=== PATIENT | male | born 1960 | race Caucasian/White ===

== ENCOUNTER 2017-06-20 12:46 | Inpatient (IN) | payer MEDICARE, MEDICAID, SELFPAY ==
[2016-02-23 14:59] VITALS: BMI 51.7
[2017-06-20] VITALS (31 sets, daily range): BP systolic 88–136; BP diastolic 55–94; PULSE 66–94; RESP 13–21; TEMP 36.4–36.6; O2SAT 81–99; BMI 51.8; BMI 50.1
--- NOTE | 2017-06-20 13:08 | EKG12_ITS ---
Test Reason : UNRESPONSIVE Blood Pressure : / mmHG Vent. Rate : 093 BPM Atrial Rate : 093 BPM P-R Int : 180 ms QRS Dur : 092 ms QT Int : 320 ms P-R-T Axes : 047 126 -46 degrees QTc Int : 397 ms Sinus rhythm with occasional Premature ventricular complexes Low voltage QRS Septal infarct , age undetermined Abnormal ECG Confirmed by MATILDA CABA, ELMER ([id number]), non linear editor SELINA TSANG ([id number]) on 06/24/2017 2:11:59 PM Referred By: NICOLE Confirmed By:ELMER GREY MD
--- NOTE | 2017-06-20 13:13 | CT_ITS ---
STUDY: CT BRAIN WITHOUT CONTRAST REASON FOR EXAM: Male, 57 years old. Unresponsive. RADIATION DOSAGE (If Supplied By Facility): CTDIvol = ( 44.99 ) mGy, DLP = ( 880.47 ) mGycm TECHNIQUE: Transaxial CT imaging of the brain was performed without administration of intravenous contrast material. Individualized dose optimization techniques were used for this CT. COMPARISON: None. FINDINGS: Normal soft tissue structures. Normal calvarium. An endotracheal tube is in situ. Normal size ventricles and extra-axial spaces for the patient's age. Normal white matter tracts of the cerebral hemispheres. Normal basal ganglia and thalami. Normal brainstem. Normal cerebellum. There is no intracranial hemorrhage. There are no findings of an acute ischemic infarction. Partial opacification of the ethmoid sinuses. CT/Brain/Head without Contrast IMPRESSION: Normal unenhanced CT scan of the brain. Electronically Signed: Akhil Izquierdo MD at 15:15 EDT Tel [phone], Service support ,
--- NOTE | 2017-06-20 13:15 | RAD_ITS ---
STUDY: X-RAY CHEST REASON FOR EXAM: Male, 57 years old. Unresponsive. Shortness of breath. Intubation. TECHNIQUE: Single AP portable view of the chest. COMPARISON: Comparison is made with prior study dated February 20, 2016. FINDINGS: An endotracheal tube is in situ. The tip is at 3.5 cm proximal to the byron. An oral gastric tube is seen with the tip below the left hemidiaphragm. EKG electrodes are seen. Passive congestion. Increased markings in the upper lobes worse on the right side with the focal atelectasis and/or infiltrate in the right upper lobe abutting the right minor fissure. There is moderate cardiac enlargement. Normal mediastinum and marta. Normal visualized pulmonary arteries. Normal visualized aortic arch and descending thoracic aorta. Normal visualized thoracic spine. Normal visualized ribs, clavicles, and shoulders. There is no demonstrated abnormality of the visualized soft tissue structures of the upper abdomen. RAD/Chest 1 View (Portable) IMPRESSION: The tip of the endotracheal tube is at 3.5 cm proximal to the byron. Cardiomegaly. Findings suggestive of vascular congestion with infiltrate and/or atelectasis is worse on the right side with thickening of the right minor fissure. Electronically Signed: Akhil Izquierdo MD at 14:01 EDT Tel [phone], Service support ,
[2017-06-20] MEDS: Propofol 200 MG/20 ML Vial 40 MG IV BOLUS (13:19)
[2017-06-20] MEDS: 0.9% Normal Saline 1,000 ML 250 ML IV (13:19)
[2017-06-20] MEDS: MethylPREDNISolone 125 MG/2 ML Vial IV (13:19)
[2017-06-20 13:21] LABS: Absolute Lymphocyte Count 1.15 X10^3/ul (0.83-4.51); Absolute Neutrophil Count 6.7 X10^3/uL (2.0-7.7); Basophil# 0.01 X10^3/uL; Basophil% 0.1 % (0-1); Eosinophil# 0.05 X10^3/uL; Eosinophils% 0.6 % (0-5); Hematocrit 45.2 % (40-54); Hemoglobin 12.5 g/dl (13.0-16.5); Lymphocyte # 1.15 X10^3/ul (4.0); Mean Corp Hgb Conc 27.7 g/gl (32-36); Mean Platelet Vol. 9.4 fl (6.2-12.0); Monocyte# 0.77 X10^3/uL; Monocyte% 8.7 % (0-10); Neutrophil # 6.74 X10^3/uL (2.7-7.7); Neutrophil % 76.2 % (47-70); Platelet Count 221 K/mm3 (150-450); RBC Distribution Width CV 17.7 % (11.6-14.6); RBC Distribution Width SD 60.8 fl (35.1-43.9); Red Blood Count 4.81 M/mm3 (4.6-6.2); White Blood Count 8.8 K/mm3 (4.4-11.0)
[2017-06-20 13:26] LABS: POSITIVE COUNT NO; POSITIVE DIFFERENTIAL NO; POSITIVE MORPHOLOGY NO
[2017-06-20] MEDS: Propofol 10MG/Ml 1,000 MG/100 ML Bottle 5.199 MG CONT INF ×3 (13:33→21:51)
[2017-06-20 13:34] LABS: ALB/GLOB Ratio 0.7 RATIO (0.9-2.4); AST(SGOT) 19 U/L (15-37); Alanine Aminotransfer ALT/SGPT 30 U/L (16-61); Albumin, Serum 3.3 g/dL (3.2-5.0); Alkaline Phosphatase 107 U/L (45-117); Anion Gap 1 (5-15); BUN 32 mg/dL (7-18); BUN/Creat Ratio 34.2 RATIO (10-20); Calcium,Total 8.2 mg/dL (8.5-10.1); Chloride 95 mmol/L (98-107); Creatinine, Serum 0.94 mg/dL (0.70-1.30); EST Glomerular Filtration Rate 88 mL/min (>60); Est Glom Filt Rate - Afr Amer 106 mL/min (>60); Estimated Creatinine Clearance 92.87 ml/min; Globulin 4.6 g/dL (2.2-4.2); Glucose 127 mg/dL (74-106); Lactic Acid 0.7 mmol/L (0.4-2.0); Potassium 5.5 mmol/L (3.5-5.1); Protein, Total 7.9 g/dL (6.4-8.2); Sodium Level 136 mmol/L (136-145)
[2017-06-20] MEDS: Ipratropium/Albuterol Sulfate 3 ML AMPUL.NEB INHALATION ×3 (13:34→23:53)
[2017-06-20 13:42] LABS: International Normalized Ratio 1.1; Prothrombin Time (Protime)PT. 13.9 SECONDS (11.7-14.9)
[2017-06-20 13:43] LABS: Partial Thromboplast Time 27.8 Seconds (24.1-36.2)
[2017-06-20 13:51] LABS: Allen Test POS; Base Excess 13 mmol/L (-2 to +2); Bicarbonate 40.3 mmol/L (22-26); Blood Gas Specimen Type ART; FI02 60; Mode A-C; O2 Delivery Device Vent; PEEP 8; PO2 63 mmHG (75-100); RR 16; SITE R Radial; SO2 85 % (95-99); Time Given 1335; Total Carbon Dioxide 43 mmol/L; Vt 500; pCO2 96.9 mmHg (35-45); pH 7.23 (7.35-7.45)
--- NOTE | 2017-06-20 13:57 | ED.RN ---
URINARY CATHETER ATTEMPTED X3. UNSUCCESSFUL
[2017-06-20] MEDS: Piperacil/Tazobactam 3.375 GM/50 ML ML IV (15:17)
--- NOTE | 2017-06-20 15:33 | ED.VISSUMM ---
- ER Visit Summary Date of Service: 06/20/17 Chief Complaint: Unresponsive History of Present Illness: The patient is a 57 M assisted living. He has a history of COPD, asthma, CHF, coronary disease, diabetes, and pneumonia. He is only responding to painful stimuli at this time and cannot provide history. It sounds like he was confused earlier this morning but was refusing to come to the emergency department. He got worse throughout the day, and was brought in by EMS. He was hypoxic on 100% oxygen. We are unsure of any other new or recent history. Physical Examination: Afebrile and vital signs unremarkable. 81% pulse ox on 100% oxygen. Patient is only responding to painful stimuli, GCS 7. Lungs are diminished throughout. Abdomen soft and nontender. Patient is morbidly obese. Test Results: EKG showed sinus rhythm at a rate of 93. No acute infarction pattern. Hemoglobin 12.5. Potassium 5.5, chloride 95, CO2 40, glucose 127, BUN 32. Hepatic panel and coags normal. Urinalysis pending. Troponin normal. Lactate normal. Cultures pending. PH 7.23, O2 85 and CO2 96.9. Chest x-ray showed cardiomegaly, congestion, and possible infiltrate. CT head was normal. Emergency Department Course and Treatment: Patient was intubated shortly after arrival for mental status change and hypoxia. Direct visualization unsuccessful, and so glidescope was used. This was successful on the first attempt. Good color change on capnography. Equal breath sounds. Stomach quiet. Induction with etomidate and succinylcholine. Sedated with propofol and fentanyl. Patient treated with DuoNeb and Solu-Medrol. Chest x-ray showed congestion and possible infiltrate. He was covered with Zosyn and vancomycin. BNP is pending. Patient is stable on the vent. I spoke with the monument erector and the hospitalist will admit. Nursing had some difficulty placing the Butler catheter. It appears that the patient has a chronic phimosis and I spoke with Dr. Montemayor will see the patient in the ICU and place a catheter. Treatment Plan: Above Disposition: Admission to ICU Impression: 1. Acute respiratory failure 2. COPD 3. CHF This note was generated with MarginPointation software. It may contain incorrect words, spelling, and punctuation that were not noted in review of the chart prior to signing ED Disposition - Plan for ED Patient: Chief Complaint: Unresponsive Referrals: Tio Parker MD [Primary Care Provider] -
--- NOTE | 2017-06-20 15:40 | ED.DCSUM_ITS ---
- ER Visit Summary Date of Service: 06/20/17 Chief Complaint: Unresponsive History of Present Illness: The patient is a 57 M assisted living. He has a history of COPD, asthma, CHF, coronary disease, diabetes, and pneumonia. He is only responding to painful stimuli at this time and cannot provide history. It sounds like he was confused earlier this morning but was refusing to come to the emergency department. He got worse throughout the day, and was brought in by EMS. He was hypoxic on 100% oxygen. We are unsure of any other new or recent history. Physical Examination: Afebrile and vital signs unremarkable. 81% pulse ox on 100% oxygen. Patient is only responding to painful stimuli, GCS 7. Lungs are diminished throughout. Abdomen soft and nontender. Patient is morbidly obese. Test Results: EKG showed sinus rhythm at a rate of 93. No acute infarction pattern. Hemoglobin 12.5. Potassium 5.5, chloride 95, CO2 40, glucose 127, BUN 32. Hepatic panel and coags normal. Urinalysis pending. Troponin normal. Lactate normal. Cultures pending. PH 7.23, O2 85 and CO2 96.9. Chest x-ray showed cardiomegaly, congestion, and possible infiltrate. CT head was normal. Emergency Department Course and Treatment: Patient was intubated shortly after arrival for mental status change and hypoxia. Direct visualization unsuccessful , and so glidescope was used. This was successful on the first attempt. Good color change on capnography. Equal breath sounds. Stomach quiet. Induction with etomidate and succinylcholine. Sedated with propofol and fentanyl. Patient treated with DuoNeb and Solu-Medrol. Chest x-ray showed congestion and possible infiltrate. He was covered with Zosyn and vancomycin. BNP is pending. Patient is stable on the vent. I spoke with the machine lacer and the hospitalist will admit. Nursing had some difficulty placing the Butler catheter. It appears that the patient has a chronic phimosis and I spoke with Dr. Montemayor will see the patient in the ICU and place a catheter. Treatment Plan: Above Disposition: Admission to ICU Impression: 1. Acute respiratory failure 2. COPD 3. CHF This note was generated with BoldIQation software. It may contain incorrect words, spelling, and punctuation that were not noted in review of the chart prior to signing ED Disposition - Plan for ED Patient: Chief Complaint: Unresponsive Referrals: Tio Parker MD [Primary Care Provider] -
--- NOTE | 2017-06-20 15:54 | ED.RN ---
Dr Subarmanian requesting urinary catheter be inserted prior to admission to ICU. This nurse spoke with Dr Montemayor, he will be in around 1700.
[2017-06-20 16:17] LABS: BNP,B-Type NATRIURETIC PEPTIDE 340.8 pg/mL (0-100)
--- NOTE | 2017-06-20 16:33 | PCM.CONS.U ---
Reason for Consult Date of Consultation: 06/20/17 Reason for Consultation: er can't place perales, severe meatal stenosis. History of Present Illness: The patient is a 57 year old male with ER with resp failure severe phimosis. Past Medical History Past Medical History (Chronic Problems): Chronic Problems (Last Reviewed 06/13/17 @ 14:25 by Binta Isaac) Ischemic cardiomyopathy (Chronic) Chronic systolic congestive heart failure (Chronic) Presence of stent in coronary artery (Chronic ~02/25/16) PCI/stent LAD w/ 4.0 x 32 mm Promus 2012; PCI/GISSEL to Prox LAD w/ 4.0 x 20 mm Promus 02/25/16 for instent restenosis Atherosclerotic heart disease of [place] coronary artery without angina pectoris (Chronic) PCI/stent LAD w/ 4.0 x 32 mm Promus 2012; PCI/GISSEL to Prox LAD w/ 4.0 x 20 mm Promus 02/25/16 for instent restenosis Asthma-COPD overlap syndrome (Chronic) FEV1 46% (01/11/2017) DM2 (diabetes mellitus, type 2) (Chronic) NSTEMI (non-ST elevated myocardial infarction) (Chronic) Venous stasis of lower extremity (Chronic) Ischemic cardiomyopathy (Chronic) EF of 35% on Cath in February of 2014 Allergies adhesive tape Adverse Reaction (Verified 06/13/17 14:25) Rash Home Medications: Ambulatory Orders Medication Instructions Recorded Mometasone/Formoterol [Dulera 200 1 puff IH BID 07/11/15 Mcg/5 Mcg Inhaler] Aspirin E.C. [Ecotrin] 81 mg PO DAILY@0800 12/27/15 Atorvastatin Calcium [Lipitor] 40 mg PO QHS 12/27/15 Mag Hydrox/Al Hydrox/Simeth 30 ml PO Q4H PRN PRN 12/27/15 [Antacid Liquid] Magnesium Hydroxide [Milk Of 30 ml PO DAILY PRN PRN 12/27/15 Magnesia] Polyvinyl Alcohol/Povidone/Pf 1 ea OP PRN PRN 12/27/15 [Refresh Classic Eye Drops] Acetaminophen [Mapap] 1,000 mg PO TID PRN PRN 01/17/17 Albuterol Aerosols [Ventolin 2.5 mg INHALATION TID 01/17/17 Aerosols] Meloxicam [Mobic] 15 mg PO DAILY 01/17/17 Polyethylene Glycol 3350 [Miralax] 17 gm PO DAILY 01/17/17 carvedilol 6.25 mg tablet 6.25 mg PO BID 06/10/17 furosemide 40 mg tablet 40 mg PO BID tab 06/13/17 losartan 50 mg tablet 25 mg PO DAILY tab 06/13/17 metolazone 2.5 mg tablet 2.5 mg PO .1xweek tab 06/13/17 potassium chloride ER 20 mEq 20 meq PO DAILY 06/13/17 tablet,extended release Clopidogrel Bisulfate [Plavix] 75 mg PO DAILY 06/20/17 Gabapentin [Neurontin] 400 mg PO TID 06/20/17 Metformin HCl [Glucophage] 1,000 mg PO BIDCM 06/20/17 Metolazone [Zaroxolyn] 2.5 mg PO MO 06/20/17 Montelukast [Singulair] 10 mg PO DAILY 06/20/17 Surgical History: no surgical history Smoking Status: Current every day smoker - *Family History Maternal History Items: No pertinent history Physical Exam - Physical Exam Vital Signs Temp 97.8 F 06/20/17 13:58 Pulse 81 06/20/17 16:09 Resp 18 06/20/17 16:09 BP 121/79 H 06/20/17 16:00 Pulse Ox 88 06/20/17 16:09 Intake & Output 06/18/17 06/19/17 06/20/17 23:59 23:59 23:59 Weight: 173.3 kg General: No apparent distress, Confused, Disoriented Oral: Moist Mucosa Neck: Supple Lungs: - - on vent Laboratory Tests Past 24 Hrs 06/20/17 06/20/17 06/20/17 12:50 12:50 12:50 WBC 8.8 RBC 4.81 Hgb 12.5 L Hct 45.2 MCV 94.0 MCH 26.0 L MCHC 27.7 L RDW 17.7 H RDW Differential 60.8 H Plt Count 221 MPV 9.4 Immature Gran % (Auto) 1.400 H Neut % (Auto) 76.2 H Lymph % (Auto) 13.0 L Thur[place] % (Auto) 8.7 Eos % (Auto) 0.6 Baso % (Auto) 0.1 Absolute Neuts (auto) 6.7 Absolute Lymphs (auto) 1.15 Total Counted Not Reportable PT 13.9 INR 1.1 APTT 27.8 Specimen Type Sample Site pH Bicarbonate Actual POC Total CO2 Base Excess O2 Saturation O2 % ABG pCO2 ABG pO2 Salas Test Respiration Rate O2 Delivery Device Minute Volume Vent Mode Tidal Volume POC PEEP Blood Gas Notified Whom Blood Gas Notified Time Sodium 136 Potassium 5.5 H Chloride 95 L Carbon Dioxide 40.0 H Anion Gap 1 L BUN 32 H Creatinine 0.94 Estim Creat Clear Calc 92.87 Est GFR (MDRD) Af Amer 106 Est GFR (MDRD) Non-Af 88 BUN/Creatinine Ratio 34.2 H Glucose 127 H Lactic Acid Calcium 8.2 L Total Bilirubin 0.40 AST 19 ALT 30 Alkaline Phosphatase 107 Troponin I < 0.015 B-Natriuretic Peptide Total Protein 7.9 Albumin 3.3 Globulin 4.6 H Albumin/Globulin Ratio 0.7 L 06/20/17 06/20/17 06/20/17 12:50 12:50 13:40 WBC RBC Hgb Hct MCV MCH MCHC RDW RDW Differential Plt Count MPV Immature Gran % (Auto) Neut % (Auto) Lymph % (Auto) [place] % (Auto) Eos % (Auto) Baso % (Auto) Absolute Neuts (auto) Absolute Lymphs (auto) Total Counted PT INR APTT Specimen Type ART Sample Site R Radial pH 7.23 L Bicarbonate Actual 40.3 H POC Total CO2 43 Base Excess 13 H O2 Saturation 85 L O2 % 60 ABG pCO2 96.9 H* ABG pO2 63 L Salas Test POS Respiration Rate 16 O2 Delivery Device Vent Minute Volume 10.00 Vent Mode A-C Tidal Volume 500 POC PEEP 8 Blood Gas Notified Whom ED MD Blood Gas Notified Time 1335 Sodium Potassium Chloride Carbon Dioxide Anion Gap BUN Creatinine Estim Creat Clear Calc Est GFR (MDRD) Af Amer Est GFR (MDRD) Non-Af BUN/Creatinine Ratio Glucose Lactic Acid 0.7 Calcium Total Bilirubin AST ALT Alkaline Phosphatase Troponin I B-Natriuretic Peptide 340.8 H Total Protein Albumin Globulin Albumin/Globulin Ratio Assessment/Plan dilated with bard kit and placed 16 fr perales [place] tip once does not need perales okay to d/c perales only place b/c on vent.
--- NOTE | 2017-06-20 16:37 | ED.RN ---
URINARY CATHETER INSERTED BY DR PALUMBO
--- NOTE | 2017-06-20 17:11 | PCM.HP.STD ---
Problem List (1) Acute respiratory failure with hypoxia and hypercapnia Status: Acute (2) Pneumococcal pneumonia Status: Acute (3) Metabolic encephalopathy Status: Acute (4) Atherosclerotic heart disease of [place] coronary artery without angina pectoris Status: Chronic Comment: PCI/stent LAD w/ 4.0 x 32 mm Promus 2012; PCI/GISSEL to Prox LAD w/ 4.0 x 20 mm Promus 02/25/16 for instent restenosis (5) Asthma-COPD overlap syndrome Status: Chronic Comment: FEV1 46% (01/11/2017) (6) DM2 (diabetes mellitus, type 2) Status: Chronic (7) NSTEMI (non-ST elevated myocardial infarction) Status: Chronic (8) Venous stasis of lower extremity Status: Chronic (9) Heart failure with reduced ejection fraction Status: Acute Qualifiers: Heart failure chronicity: acute Qualified Code(s): I50.21 - Acute systolic (congestive) heart failure History of Present Illness Date of Admission: 06/20/17 Chief Complaint: unresponsive The patient is a 57 year old M was found unresponsive at his assisted living. Patient was notably hypoxic in the 80s on 100% oxygen. Sent emergency room and was intubated. Chest x-ray was concerning for CHF as well as pneumonia. Patient received Solu-Medrol, aerosols, Zosyn with vancomycin. Patient is unable to provide any history given that he was sedated in debated. No family is present at bedside. Apparently patient was found with a bag of Funyuns and cigarettes on him. [] Past Medical History Past Medical History (Chronic Problems): Chronic Problems (Last Reviewed 06/13/17 @ 14:25 by Binta Isaac) Ischemic cardiomyopathy (Chronic) Chronic systolic congestive heart failure (Chronic) Presence of stent in coronary artery (Chronic ~02/25/16) PCI/stent LAD w/ 4.0 x 32 mm Promus 2012; PCI/GISSEL to Prox LAD w/ 4.0 x 20 mm Promus 02/25/16 for instent restenosis Atherosclerotic heart disease of [place] coronary artery without angina pectoris (Chronic) PCI/stent LAD w/ 4.0 x 32 mm Promus 2012; PCI/GISSEL to Prox LAD w/ 4.0 x 20 mm Promus 02/25/16 for instent restenosis Asthma-COPD overlap syndrome (Chronic) FEV1 46% (01/11/2017) DM2 (diabetes mellitus, type 2) (Chronic) NSTEMI (non-ST elevated myocardial infarction) (Chronic) Venous stasis of lower extremity (Chronic) Ischemic cardiomyopathy (Chronic) EF of 35% on Cath in February of 2014 Allergies adhesive tape Adverse Reaction (Verified 06/13/17 14:25) Rash Home Medications: Ambulatory Orders Medication Instructions Recorded Mometasone/Formoterol [Dulera 200 1 puff IH BID 07/11/14 Mcg/5 Mcg Inhaler] Aspirin E.C. [Ecotrin] 81 mg PO DAILY@0800 12/27/15 Atorvastatin Calcium [Lipitor] 40 mg PO QHS 12/27/15 Mag Hydrox/Al Hydrox/Simeth 30 ml PO Q4H PRN PRN 12/27/15 [Antacid Liquid] Magnesium Hydroxide [Milk Of 30 ml PO DAILY PRN PRN 12/27/15 Magnesia] Polyvinyl Alcohol/Povidone/Pf 1 ea OP PRN PRN 12/27/15 [Refresh Classic Eye Drops] Acetaminophen [Mapap] 1,000 mg PO TID PRN PRN 01/17/17 Albuterol Aerosols [Ventolin 2.5 mg INHALATION TID 01/17/17 Aerosols] Meloxicam [Mobic] 15 mg PO DAILY 01/17/17 Polyethylene Glycol 3350 [Miralax] 17 gm PO DAILY 01/17/17 carvedilol 6.25 mg tablet 6.25 mg PO BID 06/10/17 furosemide 40 mg tablet 40 mg PO BID tab 06/13/17 losartan 50 mg tablet 25 mg PO DAILY tab 06/13/17 metolazone 2.5 mg tablet 2.5 mg PO .1xweek tab 06/13/17 potassium chloride ER 20 mEq 20 meq PO DAILY 06/13/17 tablet,extended release Clopidogrel Bisulfate [Plavix] 75 mg PO DAILY 06/20/17 Gabapentin [Neurontin] 400 mg PO TID 06/20/17 Metformin HCl [Glucophage] 1,000 mg PO BIDCM 06/20/17 Metolazone [Zaroxolyn] 2.5 mg PO MO 06/20/17 Montelukast [Singulair] 10 mg PO DAILY 06/20/17 Surgical History: no surgical history Psychiatric History: No pertinent psych hx Lives: Alone Smoking Status: Current every day smoker Tobacco Use: - - Resume cigarettes but unable to obtain as the patient is sedated - *Family History Maternal History Items: No pertinent history, - - Unable to obtain as the patient is intubated and sedated Review of Systems Unable to obtain accurate/complete ROS d/t: Unable to obtain as the patient is intubated and sedated. VTE Information - Inpt Only VTE Present on Admission: No VTE Mechan Device Prophylaxis: SCD's VTE Pharm Prophylaxis ordered?: Yes Patient Problems: Active and Suspected Problems (Last Reviewed 06/13/17 @ 14:25 by Binta Isaac) Acute respiratory failure with hypoxia and hypercapnia (Acute) Pneumococcal pneumonia (Acute) Metabolic encephalopathy (Acute) Heart failure with reduced ejection fraction (Acute) - Physical Exam General: - - Intubated and sedated HEENT: Atraumatic, Normocephalic Neck: No Nodes, Thyroid Normal Size and Texture Lungs: Diminished, - - Coarse breath sounds bilaterally Cardiovascular: Regular rate, Regular Rhythm, Normal S1, Normal S2, No murmurs Abdomen: Bowel Sounds Present, Soft, Non Tender, Non-Distended, No Hepato-splenomegaly Extremities: No edema, No Calf Tenderness Skin: No rashes, No breakdown, - - Lymphedema changes lower extremities. Musculoskeletal: No Tenderness to Palpation of Joints or Extremities, No Muscle Wasting Psych/Mental Status: - - intubated and sedated Vital Signs Temp Pulse Resp BP Pulse Ox 36.6 C 81 18 121/79 H 88 06/20/17 13:58 06/20/17 16:09 06/20/17 16:09 06/20/17 16:00 06/20/17 16:09 Oxygen Delivery Method Mechanical Ventilator Weight: 173.3 kg Body Mass Index (BMI) 51.8 Laboratory Tests Past 24 Hrs 06/20/17 06/20/17 06/20/17 12:50 12:50 12:50 WBC 8.8 RBC 4.81 Hgb 12.5 L Hct 45.2 MCV 94.0 MCH 26.0 L MCHC 27.7 L RDW 17.7 H RDW Differential 60.8 H Plt Count 221 MPV 9.4 Immature Gran % (Auto) 1.400 H Neut % (Auto) 76.2 H Lymph % (Auto) 13.0 L [place] % (Auto) 8.7 Eos % (Auto) 0.6 Baso % (Auto) 0.1 Absolute Neuts (auto) 6.7 Absolute Lymphs (auto) 1.15 Total Counted Not Reportable PT 13.9 INR 1.1 APTT 27.8 Specimen Type Sample Site pH Bicarbonate Actual POC Total CO2 Base Excess O2 Saturation O2 % ABG pCO2 ABG pO2 Salas Test Respiration Rate O2 Delivery Device Minute Volume Vent Mode Tidal Volume POC PEEP Blood Gas Notified Whom Blood Gas Notified Time Sodium 136 Potassium 5.5 H Chloride 95 L Carbon Dioxide 40.0 H Anion Gap 1 L BUN 32 H Creatinine 0.94 Estim Creat Clear Calc 92.87 Est GFR (MDRD) Af Amer 106 Est GFR (MDRD) Non-Af 88 BUN/Creatinine Ratio 34.2 H Glucose 127 H Lactic Acid Calcium 8.2 L Total Bilirubin 0.40 AST 19 ALT 30 Alkaline Phosphatase 107 Troponin I < 0.015 B-Natriuretic Peptide Total Protein 7.9 Albumin 3.3 Globulin 4.6 H Albumin/Globulin Ratio 0.7 L 06/20/17 06/20/17 06/20/17 12:50 12:50 13:40 WBC RBC Hgb Hct MCV MCH MCHC RDW RDW Differential Plt Count MPV Immature Gran % (Auto) Neut % (Auto) Lymph % (Auto) [place] % (Auto) Eos % (Auto) Baso % (Auto) Absolute Neuts (auto) Absolute Lymphs (auto) Total Counted PT INR APTT Specimen Type ART Sample Site R Radial pH 7.23 L Bicarbonate Actual 40.3 H POC Total CO2 43 Base Excess 13 H O2 Saturation 85 L O2 % 60 ABG pCO2 96.9 H* ABG pO2 63 L Salas Test POS Respiration Rate 16 O2 Delivery Device Vent Minute Volume 10.00 Vent Mode A-C Tidal Volume 500 POC PEEP 8 Blood Gas Notified Whom ED MD Blood Gas Notified Time 1335 Sodium Potassium Chloride Carbon Dioxide Anion Gap BUN Creatinine Estim Creat Clear Calc Est GFR (MDRD) Af Amer Est GFR (MDRD) Non-Af BUN/Creatinine Ratio Glucose Lactic Acid 0.7 Calcium Total Bilirubin AST ALT Alkaline Phosphatase Troponin I B-Natriuretic Peptide 340.8 H Total Protein Albumin Globulin Albumin/Globulin Ratio Assessment/Plan Active and Suspected Problems (Last Reviewed 06/13/17 @ 14:25 by Binta Isaac) Acute respiratory failure with hypoxia and hypercapnia (Acute) Pneumococcal pneumonia (Acute) Metabolic encephalopathy (Acute) Heart failure with reduced ejection fraction (Acute) 1. Acute hypoxic and hypercapnic respiratory failure Multifactorial On the vent Treat the underlying processes Pulmonary consult 2. Suspected pneumococcal pneumonia Patient received vancomycin and Zosyn in the emergency room. Appears patient about the hospital for 3 months of those should not be necessary Patient will be on Rocephin and azithromycin on the floor Pulmonary toilet 3. Acute heart failure with reduced ejection fraction Ejection fraction of 30% from February 2014 To be on IV Lasix 3. Suspected acute COPD exacerbation Solu-Medrol and bronchodilators 4. Metabolic encephalopathy Secondary to carbon dioxide narcosis 5. DVT prophylaxis with Lovenox and SCDs 6. Prophylaxis with H2 lori Code Visit Inpatient E&M: 21377 Init Hosp L3
--- NOTE | 2017-06-20 17:23 | HP.PCM_ITS ---
Problem List (1) Acute respiratory failure with hypoxia and hypercapnia Status: Acute (2) Pneumococcal pneumonia Status: Acute (3) Metabolic encephalopathy Status: Acute (4) Atherosclerotic heart disease of [place] coronary artery without angina pectoris Status: Chronic Comment: PCI/stent LAD w/ 4.0 x 32 mm Promus 2012; PCI/GISSEL to Prox LAD w/ 4.0 x 20 mm Promus 02/25/16 for instent restenosis (5) Asthma-COPD overlap syndrome Status: Chronic Comment: FEV1 46% (01/11/2017) (6) DM2 (diabetes mellitus, type 2) Status: Chronic (7) NSTEMI (non-ST elevated myocardial infarction) Status: Chronic (8) Venous stasis of lower extremity Status: Chronic (9) Heart failure with reduced ejection fraction Status: Acute Qualifiers: Heart failure chronicity: acute Qualified Code(s): I50.21 - Acute systolic (congestive) heart failure History of Present Illness Date of Admission: 06/20/17 Chief Complaint: unresponsive The patient is a 57 year old M was found unresponsive at his assisted living. Patient was notably hypoxic in the 80s on 100% oxygen. Sent emergency room and was intubated. Chest x-ray was concerning for CHF as well as pneumonia. Patient received Solu-Medrol, aerosols, Zosyn with vancomycin. Patient is unable to provide any history given that he was sedated in debated. No family is present at bedside. Apparently patient was found with a bag of Funyuns and cigarettes on him. [] Past Medical History Past Medical History (Chronic Problems): Chronic Problems (Last Reviewed 06/13/17 @ 14:25 by Binta Isaac) Ischemic cardiomyopathy (Chronic) Chronic systolic congestive heart failure (Chronic) Presence of stent in coronary artery (Chronic ~02/25/16) PCI/stent LAD w/ 4.0 x 32 mm Promus 2012; PCI/GISSEL to Prox LAD w/ 4.0 x 20 mm Promus 02/25/16 for instent restenosis Atherosclerotic heart disease of [place] coronary artery without angina pectoris (Chronic) PCI/stent LAD w/ 4.0 x 32 mm Promus 2012; PCI/GISSEL to Prox LAD w/ 4.0 x 20 mm Promus 02/25/16 for instent restenosis Asthma-COPD overlap syndrome (Chronic) FEV1 46% (01/11/2017) DM2 (diabetes mellitus, type 2) (Chronic) NSTEMI (non-ST elevated myocardial infarction) (Chronic) Venous stasis of lower extremity (Chronic) Ischemic cardiomyopathy (Chronic) EF of 35% on Cath in February of 2014 Allergies adhesive tape Adverse Reaction (Verified 06/13/17 14:25) Rash Home Medications: Ambulatory Orders Medication Instructions Recorded Mometasone/Formoterol [Dulera 200 1 puff IH BID 07/11/14 Mcg/5 Mcg Inhaler] Aspirin E.C. [Ecotrin] 81 mg PO DAILY@0800 12/27/15 Atorvastatin Calcium [Lipitor] 40 mg PO QHS 12/27/15 Mag Hydrox/Al Hydrox/Simeth 30 ml PO Q4H PRN PRN 12/27/15 [Antacid Liquid] Magnesium Hydroxide [Milk Of 30 ml PO DAILY PRN PRN 12/27/15 Magnesia] Polyvinyl Alcohol/Povidone/Pf 1 ea OP PRN PRN 12/27/15 [Refresh Classic Eye Drops] Acetaminophen [Mapap] 1,000 mg PO TID PRN PRN 01/17/17 Albuterol Aerosols [Ventolin 2.5 mg INHALATION TID 01/17/17 Aerosols] Meloxicam [Mobic] 15 mg PO DAILY 01/17/17 Polyethylene Glycol 3350 [Miralax] 17 gm PO DAILY 01/17/17 carvedilol 6.25 mg tablet 6.25 mg PO BID 06/10/17 furosemide 40 mg tablet 40 mg PO BID tab 06/13/17 losartan 50 mg tablet 25 mg PO DAILY tab 06/13/17 metolazone 2.5 mg tablet 2.5 mg PO .1xweek tab 06/13/17 potassium chloride ER 20 mEq 20 meq PO DAILY 06/13/17 tablet,extended release Clopidogrel Bisulfate [Plavix] 75 mg PO DAILY 06/20/17 Gabapentin [Neurontin] 400 mg PO TID 06/20/17 Metformin HCl [Glucophage] 1,000 mg PO BIDCM 06/20/17 Metolazone [Zaroxolyn] 2.5 mg PO MO 06/20/17 Montelukast [Singulair] 10 mg PO DAILY 06/20/17 Surgical History: no surgical history Psychiatric History: No pertinent psych hx Lives: Alone Smoking Status: Current every day smoker Tobacco Use: - - Resume cigarettes but unable to obtain as the patient is sedated - *Family History Maternal History Items: No pertinent history, - - Unable to obtain as the patient is intubated and sedated Review of Systems Unable to obtain accurate/complete ROS d/t: Unable to obtain as the patient is intubated and sedated. VTE Information - Inpt Only VTE Present on Admission: No VTE Mechan Device Prophylaxis: SCD's VTE Pharm Prophylaxis ordered?: Yes Patient Problems: Active and Suspected Problems (Last Reviewed 06/13/17 @ 14:25 by Binta Isaac) Acute respiratory failure with hypoxia and hypercapnia (Acute) Pneumococcal pneumonia (Acute) Metabolic encephalopathy (Acute) Heart failure with reduced ejection fraction (Acute) - Physical Exam General: - - Intubated and sedated HEENT: Atraumatic, Normocephalic Neck: No Nodes, Thyroid Normal Size and Texture Lungs: Diminished, - - Coarse breath sounds bilaterally Cardiovascular: Regular rate, Regular Rhythm, Normal S1, Normal S2, No murmurs Abdomen: Bowel Sounds Present, Soft, Non Tender, Non-Distended, No Hepato- splenomegaly Extremities: No edema, No Calf Tenderness Skin: No rashes, No breakdown, - - Lymphedema changes lower extremities. Musculoskeletal: No Tenderness to Palpation of Joints or Extremities, No Muscle Wasting Psych/Mental Status: - - intubated and sedated Vital Signs Temp Pulse Resp BP Pulse Ox 36.6 C 81 18 121/79 H 88 06/20/17 13:58 06/20/17 16:09 06/20/17 16:09 06/20/17 16:00 06/20/17 16:09 Oxygen Delivery Method Mechanical Ventilator Weight: 173.3 kg Body Mass Index (BMI) 51.8 Laboratory Tests Past 24 Hrs 06/20/17 06/20/17 06/20/17 12:50 12:50 12:50 WBC 8.8 RBC 4.81 Hgb 12.5 L Hct 45.2 MCV 94.0 MCH 26.0 L MCHC 27.7 L RDW 17.7 H RDW Differential 60.8 H Plt Count 221 MPV 9.4 Immature Gran % (Auto) 1.400 H Neut % (Auto) 76.2 H Lymph % (Auto) 13.0 L Carroll % (Auto) 8.7 Eos % (Auto) 0.6 Baso % (Auto) 0.1 Absolute Neuts (auto) 6.7 Absolute Lymphs (auto) 1.15 Total Counted Not Reportable PT 13.9 INR 1.1 APTT 27.8 Specimen Type Sample Site pH Bicarbonate Actual POC Total CO2 Base Excess O2 Saturation O2 % ABG pCO2 ABG pO2 Salas Test Respiration Rate O2 Delivery Device Minute Volume Vent Mode Tidal Volume POC PEEP Blood Gas Notified Whom Blood Gas Notified Time Sodium 136 Potassium 5.5 H Chloride 95 L Carbon Dioxide 40.0 H Anion Gap 1 L BUN 32 H Creatinine 0.94 Estim Creat Clear Calc 92.87 Est GFR (MDRD) Af Amer 106 Est GFR (MDRD) Non-Af 88 BUN/Creatinine Ratio 34.2 H Glucose 127 H Lactic Acid Calcium 8.2 L Total Bilirubin 0.40 AST 19 ALT 30 Alkaline Phosphatase 107 Troponin I < 0.015 B-Natriuretic Peptide Total Protein 7.9 Albumin 3.3 Globulin 4.6 H Albumin/Globulin Ratio 0.7 L 06/20/17 06/20/17 06/20/17 12:50 12:50 13:40 WBC RBC Hgb Hct MCV MCH MCHC RDW RDW Differential Plt Count MPV Immature Gran % (Auto) Neut % (Auto) Lymph % (Auto) Carroll % (Auto) Eos % (Auto) Baso % (Auto) Absolute Neuts (auto) Absolute Lymphs (auto) Total Counted PT INR APTT Specimen Type ART Sample Site R Radial pH 7.23 L Bicarbonate Actual 40.3 H POC Total CO2 43 Base Excess 13 H O2 Saturation 85 L O2 % 60 ABG pCO2 96.9 H* ABG pO2 63 L Salas Test POS Respiration Rate 16 O2 Delivery Device Vent Minute Volume 10.00 Vent Mode A-C Tidal Volume 500 POC PEEP 8 Blood Gas Notified Whom ED MD Blood Gas Notified Time 1335 Sodium Potassium Chloride Carbon Dioxide Anion Gap BUN Creatinine Estim Creat Clear Calc Est GFR (MDRD) Af Amer Est GFR (MDRD) Non-Af BUN/Creatinine Ratio Glucose Lactic Acid 0.7 Calcium Total Bilirubin AST ALT Alkaline Phosphatase Troponin I B-Natriuretic Peptide 340.8 H Total Protein Albumin Globulin Albumin/Globulin Ratio Assessment/Plan Active and Suspected Problems (Last Reviewed 06/13/17 @ 14:25 by Binta Isaac) Acute respiratory failure with hypoxia and hypercapnia (Acute) Pneumococcal pneumonia (Acute) Metabolic encephalopathy (Acute) Heart failure with reduced ejection fraction (Acute) 1. Acute hypoxic and hypercapnic respiratory failure * Multifactorial * On the vent * Treat the underlying processes * Pulmonary consult 2. Suspected pneumococcal pneumonia * Patient received vancomycin and Zosyn in the emergency room. * Appears patient about the hospital for 3 months of those should not be necessary * Patient will be on Rocephin and azithromycin on the floor * Pulmonary toilet 3. Acute heart failure with reduced ejection fraction * Ejection fraction of 30% from February 2014 * To be on IV Lasix 3. Suspected acute COPD exacerbation * Solu-Medrol and bronchodilators 4. Metabolic encephalopathy * Secondary to carbon dioxide narcosis 5. DVT prophylaxis with Lovenox and SCDs 6. Prophylaxis with H2 lori Code Visit Inpatient E&M: 97898 Init Hosp L3
[2017-06-20] MEDS: Ceftriaxone 1 GM/50 ML BAG IV (18:33)
[2017-06-20] MEDS: 0.9% NaCl IVPB Med Flush (250 mL) 15 ML IV (18:33)
[2017-06-20] MEDS: Furosemide 40 MG/4 ML Vial IV (18:33)
[2017-06-20] MEDS: 0.9% NaCl Peripheral Flush Adult/Peds IV ×2 (18:33→21:19)
[2017-06-20 19:44] LABS: M R Staph aureus DNA By PCR Negative (Negative); Probe Check PASS; Specimen Processing Control PASS
[2017-06-20 20:11] LABS: Allen Test POS; Base Excess 14 mmol/L (-2 to +2); Bicarbonate 37.9 mmol/L (22-26); Blood Gas Specimen Type ART; FI02 75; Mode A-C; O2 Delivery Device Vent; PEEP 10; PO2 45 mmHG (75-100); RR 16; SITE R Radial; SO2 81 % (95-99); Time Given 2000; Total Carbon Dioxide 40 mmol/L; Vt 550; pCO2 54.6 mmHg (35-45); pH 7.45 (7.35-7.45)
[2017-06-20] MEDS: Chlorhexidine 15 ML PO (21:18)
[2017-06-20] MEDS: Carvedilol 6.25 MG Tablet PO (21:18)
[2017-06-20] MEDS: Famotidine 20 MG Tablet PO (21:18)
[2017-06-20 22:54] LABS: Bacteria 0 SEEN /hpf (None Seen); Mucous, Urine 0 SEEN /hpf (<or=2+); Red Blood Cells-Urine 0 SEEN /hpf (0-5); Squamous Epithelial Cells - UA 0 SEEN /hpf (0-5); White Blood Cells 0 SEEN /hpf (0-5)
[2017-06-20 23:02] LABS: Color, Urine Yellow (Yellow); Glucose, Dipstick Normal (Normal); Ketone-Dipstick Negative (Negative); Leukocyte Esterase-Dipstick Negative /ul (Negative); Nitrite-Dipstick Negative (Negative); Occult Blood-Urine 10 /ul (Negative); Protein-Dipstick 30 mg/dl (Negative); Specific Gravity, Urine 1.015 (1.002-1.030); Urine Bilirubin Dipstick Negative (Negative); Urine Clarity Turbid (Clear); Urine Urobilinogen Normal (Normal)
[2017-06-20 23:08] LABS: Amorphous Sediment 4+
[2017-06-20 23:46] LABS: Bedside Glucose 160 mg/dL (70-110)
[2017-06-21] VITALS (44 sets, daily range): BP systolic 93–108; BP diastolic 50–82; PULSE 57–67; RESP 16; TEMP 36.4–36.6; O2SAT 87–97
[2017-06-21 03:52] LABS: Hematocrit 39.6 % (40-54); Hemoglobin 11.5 g/dl (13.0-16.5); Mean Corpuscular Hgb 25.7 pg (27.0-32.0); Mean Corpuscular Volume 88.6 fL (80-94); Mean Platelet Vol. 9.2 fl (6.2-12.0); Platelet Count 180 K/mm3 (150-450); RBC Distribution Width CV 17.1 % (11.6-14.6); RBC Distribution Width SD 55.1 fl (35.1-43.9); Red Blood Count 4.47 M/mm3 (4.6-6.2); White Blood Count 6.9 K/mm3 (4.4-11.0)
[2017-06-21 03:53] LABS: Scan Indicated on CBC? Y/N NO
[2017-06-21] MEDS: Ipratropium/Albuterol Sulfate 3 ML AMPUL.NEB INHALATION ×6 (03:55→23:12)
[2017-06-21 04:01] LABS: Anion Gap 7 (5-15); BUN 32 mg/dL (7-18); BUN/Creat Ratio 38.5 RATIO (10-20); Calcium,Total 8.4 mg/dL (8.5-10.1); Chloride 96 mmol/L (98-107); Creatinine, Serum 0.83 mg/dL (0.70-1.30); EST Glomerular Filtration Rate 100 mL/min (>60); Est Glom Filt Rate - Afr Amer 121 mL/min (>60); Estimated Creatinine Clearance 105.18 ml/min; Glucose 135 mg/dL (74-106); Potassium 4.3 mmol/L (3.5-5.1); Sodium Level 140 mmol/L (136-145)
[2017-06-21] MEDS: Propofol 10MG/Ml 1,000 MG/100 ML Bottle 5.199 MG CONT INF ×5 (04:49→22:04)
[2017-06-21] MEDS: 0.9% NaCl Peripheral Flush Adult/Peds IV ×4 (04:51→21:01)
--- NOTE | 2017-06-21 05:38 | ECHOCS_ITS ---
Reason For Study: Dyspnea/SOB Procedure This was a 2D Doppler, Color Flow transthoracic echocardiogram. Technically difficult study due to patient body habitus and patient condition. Patient was on a vent. The study was technically difficult. Contrast injection was performed. Exam performed portable in ICU/CCU. Left Ventricle Normal LV size. Mild segmental systolic dysfunction (see wall motion). The estimated ejection fraction is 50 %. Unable to assess diastolic dysfunction. Basal anteroseptal: Hypokinetic. Mid- Anterior : Hypokinetic. Mid-inferoseptal : Hypokinetic. Mid-anteroseptal : Hypokinetic. [place] : Hypokinetic. Right Ventricle Normal RV size. Normal systolic function. Atria The left atrium is mildly enlarged. The right atrium is not well visualized. No doppler evidence for ASD. Mitral Valve There is mild mitral annular calcification. Normal mitral valve. Trivial mitral valve insufficiency. Tricuspid Valve Normal tricuspid valve. Trivial tricuspid valve insufficiency. Unable to estimate RV systolic pressure/pulmonary artery pressure due to technically difficult study. Aortic Valve Trisinus/trileaflet aortic valve. Mild focal aortic valve thickening. Pulmonic Valve The pulmonic valve is not well visualized. Great Vessels Borderline to mildly dilated aortic root. Pericardium/Pleural No pericardial effusion. Medication Diluted definity 5ml given slow IV push to enhance endocardial definition. MMode/2D Measurements & Calculations LVIDd: 5.2 cm IVSd: 0.99 cm Ao root diam: 4.0 cm LVIDs: 4.1 cm LVPWd: 1.1 cm LA dimension: 4.6 cm FS: 21.5 % Time Measurements MV dec time: 0.18 sec Doppler Measurements & Calculations MV E max jaydon: 78.2 cm/sec Lat Peak E' Jaydon: 10.0 cm/sec Med Peak E' Jaydon: 7.6 cm/sec MV A max jaydon: 69.0 cm/sec E/E' lat: 7.8 E/E' med: 10.3 MV E/A: 1.1 MV V2 max: 126.2 cm/sec MV P1/2t max jaydon: 128.1 cm/sec Ao V2 max: 154.3 cm/sec MV max P.4 mmHg MV P1/2t: 86.4 msec Ao max P.5 mmHg MV V2 mean: 61.0 cm/sec MV dec slope: 434.0 cm/sec2 Ao V2 mean: 103.3 cm/sec MV mean P.9 mmHg MVA(P1/2t): 2.5 cm2 Ao mean P.8 mmHg MV V2 VTI: 38.6 cm Ao V2 VTI: 29.4 cm LV V1 max: 120.3 cm/sec PA V2 max: 66.4 cm/sec LV V1 max P.8 mmHg LV V1 mean P.9 mmHg LV V1 mean: 78.0 cm/sec LV V1 VTI: 26.8 cm Interpretation Summary The study was technically difficult. Contrast injection was performed. Mild segmental systolic dysfunction (see wall motion). The estimated ejection fraction is 50 %. The left atrium is mildly enlarged. There is mild mitral annular calcification. Trivial mitral valve insufficiency. Trivial tricuspid valve insufficiency. Mild focal aortic valve thickening. Borderline to mildly dilated aortic root. Unable to estimate RV systolic pressure/pulmonary artery pressure due to technically difficult study. Unable to assess diastolic dysfunction. Ordering Physician: Jeffrey Campos Referring Physician: Tio Parker Performed By: Edward Chavez RCS
[2017-06-21 05:46] LABS: Allen Test POS; Base Excess 15 mmol/L (-2 to +2); Bicarbonate 39.4 mmol/L (22-26); Blood Gas Specimen Type ART; FI02 85; Mode A-C; O2 Delivery Device Vent; PEEP 12; PO2 65 mmHG (75-100); RR 16; SITE R Radial; SO2 91 % (95-99); Time Given 540; Total Carbon Dioxide 41 mmol/L; Vt 450; pCO2 64.1 mmHg (35-45)
[2017-06-21] MEDS: CHLORHEXIDINE GLUC 2% CLOTH 1 EACH TOWELETTE TOPICAL (06:17)
--- NOTE | 2017-06-21 06:27 | CON.PCM_ITS ---
Problem List (1) Acute respiratory failure with hypoxia and hypercapnia Status: Acute (2) Metabolic encephalopathy Status: Acute (3) Heart failure with reduced ejection fraction Status: Acute Qualifiers: Heart failure chronicity: acute Qualified Code(s): I50.21 - Acute systolic (congestive) heart failure (4) Ischemic cardiomyopathy Status: Chronic (5) Presence of stent in coronary artery Status: Chronic Comment: PCI/stent LAD w/ 4.0 x 32 mm Promus 2012; PCI/GISSEL to Prox LAD w/ 4.0 x 20 mm Promus 02/25/16 for instent restenosis (6) Atherosclerotic heart disease of [place] coronary artery without angina pectoris Status: Chronic Comment: PCI/stent LAD w/ 4.0 x 32 mm Promus 2012; PCI/GISSEL to Prox LAD w/ 4.0 x 20 mm Promus 02/25/16 for instent restenosis (7) Asthma-COPD overlap syndrome Status: Chronic Comment: FEV1 46% (01/11/2017) (8) DM2 (diabetes mellitus, type 2) Status: Chronic (9) NSTEMI (non-ST elevated myocardial infarction) Status: Chronic (10) Venous stasis of lower extremity Status: Chronic Reason for Consult Date of Consultation: 06/21/17 Reason for Consultation: Acute on chronic respiratory failure History of Present Illness: The patient is a 57 year old M, with past medical history listed below and well- known to me from the outpatient office, who presented to [facility] on 06/20/2017 after being unresponsive. Patient was noted to be saturating in the 80s on 100% nonrebreather. Immediately upon presentation to the emergency room, patient was intubated and chest x-ray was concerning for CHF versus pneumonia. Patient was placed on Solu-Medrol, aerosols and healthcare associated antibiotics. Details were not available as patient does not have any family or next of kin that I am aware of. Patient was reportedly found with Funyons and cigarettes. Patient was admitted to the intensive care unit and blood pressures have been stable. However, patient has been notably hypoxic and PEEP has been increased steadily overnight. Patient did not receive a spontaneous breathing trial this morning secondary to high oxygen demands. Patient is on diuretic therapy. Patient becomes agitated when sedation is decreased. As an outpatient, patient does have an asthma COPD overlap syndrome with an FEV1 of 46% and a history of systolic congestive heart failure with an EF of approximately 35% in the past. Patient does have a history of noncompliance with smoking cessation, salt restriction and medications. Patient has stated that he would want to be a full code as an outpatient and, to my knowledge, has no next of kin or surrogate decision makers. Past Medical History Past Medical History (Chronic Problems): Chronic Problems (Last Reviewed 06/13/17 @ 14:25 by Binta Isaac) Ischemic cardiomyopathy (Chronic) Chronic systolic congestive heart failure (Chronic) Presence of stent in coronary artery (Chronic ~02/25/16) PCI/stent LAD w/ 4.0 x 32 mm Promus 2012; PCI/GISSEL to Prox LAD w/ 4.0 x 20 mm Promus 02/25/16 for instent restenosis Atherosclerotic heart disease of [place] coronary artery without angina pectoris (Chronic) PCI/stent LAD w/ 4.0 x 32 mm Promus 2012; PCI/GISSEL to Prox LAD w/ 4.0 x 20 mm Promus 02/25/16 for instent restenosis Asthma-COPD overlap syndrome (Chronic) FEV1 46% (01/11/2017) DM2 (diabetes mellitus, type 2) (Chronic) NSTEMI (non-ST elevated myocardial infarction) (Chronic) Venous stasis of lower extremity (Chronic) Ischemic cardiomyopathy (Chronic) EF of 35% on Cath in February of 2014 Allergies adhesive tape Adverse Reaction (Verified 06/13/17 14:25) Rash Home Medications: Ambulatory Orders Medication Instructions Recorded Mometasone/Formoterol [Dulera 200 1 puff IH BID 07/11/15 Mcg/5 Mcg Inhaler] Aspirin E.C. [Ecotrin] 81 mg PO DAILY@0800 12/27/15 Atorvastatin Calcium [Lipitor] 40 mg PO QHS 12/27/15 Mag Hydrox/Al Hydrox/Simeth 30 ml PO Q4H PRN PRN 12/27/15 [Antacid Liquid] Magnesium Hydroxide [Milk Of 30 ml PO DAILY PRN PRN 12/27/15 Magnesia] Polyvinyl Alcohol/Povidone/Pf 1 ea OP PRN PRN 12/27/15 [Refresh Classic Eye Drops] Acetaminophen [Mapap] 1,000 mg PO TID PRN PRN 01/17/17 Albuterol Aerosols [Ventolin 2.5 mg INHALATION TID 01/17/17 Aerosols] Meloxicam [Mobic] 15 mg PO DAILY 01/17/17 Polyethylene Glycol 3350 [Miralax] 17 gm PO DAILY 01/17/17 carvedilol 6.25 mg tablet 6.25 mg PO BID 06/10/17 furosemide 40 mg tablet 40 mg PO BID tab 06/13/17 losartan 50 mg tablet 25 mg PO DAILY tab 06/13/17 metolazone 2.5 mg tablet 2.5 mg PO .1xweek tab 06/13/17 potassium chloride ER 20 mEq 20 meq PO DAILY 06/13/17 tablet,extended release Clopidogrel Bisulfate [Plavix] 75 mg PO DAILY 06/20/17 Gabapentin [Neurontin] 400 mg PO TID 06/20/17 Metformin HCl [Glucophage] 1,000 mg PO BIDCM 06/20/17 Metolazone [Zaroxolyn] 2.5 mg PO MO 06/20/17 Montelukast [Singulair] 10 mg PO DAILY 06/20/17 Surgical History: no surgical history Psychiatric History: No pertinent psych hx Lives: Alone Smoking Status: Current every day smoker Tobacco Use: - - Resume cigarettes but unable to obtain as the patient is sedated - *Family History Maternal History Items: No pertinent history, - - Unable to obtain as the patient is intubated and sedated Review of Systems Unable to obtain accurate/complete ROS d/t: See HPI Patient Problems: Active and Suspected Problems (Last Reviewed 06/13/17 @ 14:25 by Binta Isaac) Acute respiratory failure with hypoxia and hypercapnia (Acute) Pneumococcal pneumonia (Acute) Metabolic encephalopathy (Acute) Heart failure with reduced ejection fraction (Acute) Objective: Chest x-ray was personally reviewed. This shows support devices in appropriate positions with atelectasis versus increased congestion and possible pleural effusions. CT of the head was unremarkable. - Physical Exam General: - - RASS -3. Good vent synchrony noted. Morbidly obese. HEENT: Atraumatic, PERRLA, EOMI, - - Periorbital edema noted. Slight injection of sclera noted. Oral: Moist Mucosa, No Gingival or Mucosal Lesions/ Ulcerations, - Neck: Supple, No Nodes, Trachea Midline, JVD, Right Lungs: No rhonchi, No wheeze, Diminished, Rales, - - No dullness to percussion. Symmetric expansion. Cardiovascular: Regular rate, Regular Rhythm, Normal S1, Normal S2, No murmurs, No rub noted, No Gallop Abdomen: Bowel Sounds Present, Soft, Non Tender, Non-Distended, Obese Extremities: No cyanosis, Clubbing, Edema - 3+ lower extremity, - - Venous stasis changes Skin: - - Fungus noted in skin folds. No breakdown appreciated. Venous stasis changes noted of the lower extremities. Musculoskeletal: No Tenderness to Palpation of Joints or Extremities Lymphatic: No Cervical, Supraclavicular, or Inguinal Adenopathy Neurological: Cranial nerves II-XII grossly intact, Neuro grossly intact, - - Positive gag and cough reflexes. Psych/Mental Status: Flat Affect, Restless Vital Signs Temp Pulse Resp BP Pulse Ox 36.5 C L 64 16 98/61 93 06/21/17 04:00 06/21/17 06:00 06/21/17 06:00 06/21/17 06:00 06/21/17 06:00 Oxygen Delivery Method Mechanical Ventilator Weight: 165.6 kg Body Mass Index (BMI) 50.1 Intake and Output for Last 24 Hours 06/19/17 06/20/17 06/21/17 23:59 23:59 23:59 Intake Total 1248.3 / 1248.3 Output Total 1900 / 1900 Balance -651.7 / -651.7 Microbiology Past 72 Hours 06/20/17 18:30 Influenza Types A,B Direct FA (GAYLE) - Final Mucosa - Nasopharyngeal 06/20/17 17:40 Streptococcus pneumoniae Antigen (M - Final Urine Catheter - [place] 06/20/17 17:40 Legionella Antigen - Final Urine Catheter - [facility] Laboratory Tests Past 24 Hrs 06/20/17 06/20/17 06/20/17 17:40 17:40 20:05 WBC RBC Hgb Hct MCV MCH MCHC RDW RDW Differential Plt Count MPV Specimen Type ART Sample Site R Radial pH 7.45 Bicarbonate Actual 37.9 H POC Total CO2 40 Base Excess 14 H O2 Saturation 81 L O2 % 75 ABG pCO2 54.6 H ABG pO2 45 L Salas Test POS Respiration Rate 16 O2 Delivery Device Vent Minute Volume 8.00 Vent Mode A-C Tidal Volume 550 POC PEEP 10 Blood Gas Notified Whom ICU Blood Gas Notified Time 1999 Sodium Potassium Chloride Carbon Dioxide Anion Gap BUN Creatinine Estim Creat Clear Calc Est GFR (MDRD) Af Amer Est GFR (MDRD) Non-Af BUN/Creatinine Ratio Glucose Calcium Urine Color Yellow Urine Clarity Turbid Urine pH 7.0 Ur Specific [place] 1.015 Urine Protein 30 H Urine Glucose (UA) Normal Urine Ketones Negative Urine Occult Blood 10 H Urine Nitrite Negative Urine Bilirubin Negative Urine Urobilinogen Normal Ur Leukocyte Esterase Negative Urine RBC 0 SEEN Urine WBC 0 SEEN Ur Squamous Epith Cells 0 SEEN Amorphous Sediment 4+ Urine Bacteria 0 SEEN Urine Mucus 0 SEEN MRSA (PCR) Negative 06/21/17 06/21/17 06/21/17 03:40 03:40 05:39 WBC 6.9 RBC 4.47 L Hgb 11.5 L Hct 39.6 L MCV 88.6 MCH 25.7 L MCHC 29.0 L RDW 17.1 H RDW Differential 55.1 H Plt Count 180 MPV 9.2 Specimen Type ART Sample Site R Radial pH 7.40 Bicarbonate Actual 39.4 H POC Total CO2 41 Base Excess 15 H O2 Saturation 91 L O2 % 85 ABG pCO2 64.1 H ABG pO2 65 L Salas Test POS Respiration Rate 16 O2 Delivery Device Vent Minute Volume 7.00 Vent Mode A-C Tidal Volume 450 POC PEEP 12 Blood Gas Notified Whom ICU Blood Gas Notified Time 540 Sodium 140 Potassium 4.3 Chloride 96 L Carbon Dioxide 37.0 H Anion Gap 7 BUN 32 H Creatinine 0.83 Estim Creat Clear Calc 105.18 Est GFR (MDRD) Af Amer 121 Est GFR (MDRD) Non-Af 100 BUN/Creatinine Ratio 38.5 H Glucose 135 H Calcium 8.4 L Urine Color Urine Clarity Urine pH Ur Specific [place] Urine Protein Urine Glucose (UA) Urine Ketones Urine Occult Blood Urine Nitrite Urine Bilirubin Urine Urobilinogen Ur Leukocyte Esterase Urine RBC Urine WBC Ur Squamous Epith Cells Amorphous Sediment Urine Bacteria Urine Mucus MRSA (PCR) POC Glucose 06/20/17 23:27 POC Glucose 160 H Clinical Impression(s) from Imaging Studies Brain CT 06/20/17 13:13 IMPRESSION: Normal unenhanced CT scan of the brain. Electronically Signed: Akhil Izquierdo MD at 15:15 EDT Tel [phone], Service support , Chest X-Ray 06/20/17 13:15 IMPRESSION: The tip of the endotracheal tube is at 3.5 cm proximal to the byron. Cardiomegaly. Findings suggestive of vascular congestion with infiltrate and/or atelectasis is worse on the right side with thickening of the right minor fissure. Electronically Signed: Akhil Izquierdo MD at 14:01 EDT Tel [phone], Service support , Assessment/Plan Active and Suspected Problems (Last Reviewed 06/13/17 @ 14:25 by Binta Isaac) Acute respiratory failure with hypoxia and hypercapnia (Acute) Pneumococcal pneumonia (Acute) Metabolic encephalopathy (Acute) Heart failure with reduced ejection fraction (Acute) RECOMMENDATIONS: 1. Increase PEEP as necessary 2. Attempt to wean oxygen to less than 60% 3. Aggressive diuresis 4. Agree with steroids, bronchodilators and empiric antibiotics 5. Okay to initiate tube feeds 6. Obtain echocardiogram 7. Repeat BMP this afternoon 8. Nystatin powder to skin folds IMPRESSIONS: 1. Acute on chronic combined respiratory failure Clinical suspicion for acute on chronic systolic congestive heart failure as an etiology secondary to noncompliance with low-salt diet. Patient is also supposed to be on BiPAP therapy, but is not compliant. Low clinical suspicion for COPD/asthma exacerbation, but history is not available at this time. Agree with treating empirically with antibiotics, steroids and bronchodilators for now. Aggressive diuresis. Increase PEEP as necessary to attempt to decrease FiO2 to less than 60%. Cannot exclude the need for a Lasix drip. 2. Acute on chronic systolic congestive heart failure/coronary artery disease Patient's last known ejection fraction is 30-35%. Unclear if patient has been compliant with home medications. Blood pressure appears to be doing well at this time. Will repeat echocardiogram. Patient would benefit from BiPAP therapy following extubation if agreeable. Patient has been continued on baseline medications. May need to hold losartan if renal function decreases with diuresis. 3. Metabolic encephalopathy secondary to #1 Patient with significant CO2 retention on presentation. ABG this morning shows adequate oxygenation and ventilation. Patient is on fentanyl and propofol for vent synchrony. Will continue to monitor. 4. Diabetes mellitus type 2 Likely initiate tube feeds later this morning. Anticipate prolonged intubation secondary to need for diuretic therapy and offloading of the heart. Continue to monitor blood sugars. 5. Morbid obesity/history of noncompliance/hypertension/seasonal allergies Complicates care, management, recovery and prognosis. On baseline medications. TIME: 37 minutes critical care time spent addressing patient's acute on chronic respiratory failure, congestive heart failure, metabolic encephalopathy, review of all data and collaboration with care team. (5:15 AM to 6:30 AM) Code Visit 9xxxx: [id number] Critical care first hour
[2017-06-21] MEDS: Aspirin E.C. 81 MG Tablet PO (08:27)
[2017-06-21] MEDS: Furosemide 40 MG/4 ML Vial IV ×3 (09:53→21:01)
[2017-06-21] MEDS: Chlorhexidine 15 ML PO ×2 (09:53→21:00)
[2017-06-21] MEDS: Carvedilol 6.25 MG Tablet GT ×2 (09:54→21:00)
[2017-06-21] MEDS: Clopidogrel Bisulfate 75 MG Tablet GT (09:54)
[2017-06-21] MEDS: Polyethylene Glycol 3350 17 GM PACKET GT ×2 (09:55→21:00)
[2017-06-21] MEDS: Enoxaparin 40 MG/0.4 ML Syringe SC (09:55)
[2017-06-21] MEDS: Famotidine 20 MG Tablet GT ×2 (09:55→21:00)
[2017-06-21] MEDS: Senna/Docusate Sodium 1 Tablet 2 TABLET GT ×2 (09:55→21:00)
[2017-06-21] MEDS: Ceftriaxone 1 GM/50 ML BAG IV (09:56)
[2017-06-21] MEDS: Nystatin Powder 15gm Bottle 1 APPLIC TOPICAL ×2 (09:57→21:01)
[2017-06-21 11:50] LABS: Bedside Glucose 177 mg/dL (70-110)
[2017-06-21 14:39] LABS: Anion Gap 6 (5-15); BUN 33 mg/dL (7-18); BUN/Creat Ratio 40.5 RATIO (10-20); Calcium,Total 8.3 mg/dL (8.5-10.1); Chloride 95 mmol/L (98-107); Creatinine, Serum 0.81 mg/dL (0.70-1.30); EST Glomerular Filtration Rate 103 mL/min (>60); Est Glom Filt Rate - Afr Amer 125 mL/min (>60); Estimated Creatinine Clearance 107.78 ml/min; Glucose 143 mg/dL (74-106); Potassium 3.9 mmol/L (3.5-5.1); Sodium Level 138 mmol/L (136-145)
--- NOTE | 2017-06-21 14:48 | CASEMGMT ---
SW noted patient is from [facility]. SW also noted patient does not have any contact people listed. SW called [facility] and they gave SW the name and number of patient's sister who lives in [place] [phone]. His case therapist through [facility] is Dior Grajeda, . [facility] called both of these numbers and left them voice mails letting them know he is in the hospital. MUKESH spoke with RN in ICU and patient's sister did call in last night. SW will continue to follow and assist with d/c planning. Nyla FELTON MSW
--- NOTE | 2017-06-21 15:28 | PN_ITS ---
Patient Problems: Active and Suspected Problems (Last Reviewed 06/13/17 @ 14:25 by Binta Isaac) Acute respiratory failure with hypoxia and hypercapnia (Acute) Pneumococcal pneumonia (Acute) Metabolic encephalopathy (Acute) Heart failure with reduced ejection fraction (Acute) Subjective: Patient was seen and examined today in the ICU, he remains sedated and on the ventilator at this time. I discussed his care briefly with pulmonary medicine, I also notified cardiology that he had been admitted and was on the ventilator- Dr. Li had seen him in the past and follows up with him and his office. - Physical Exam General: No apparent distress, Well developed, Well nourished, - - Patient is sedated on the ventilator HEENT: Atraumatic, PERRLA, EOMI, Normocephalic Oral: Moist Mucosa Neck: Supple, No JVD, No Nuchal Rigidity, Trachea Midline, Thyroid Normal Size and Texture Lungs: Clear to auscultation, Normal air movement, No rhonchi, No wheeze, No rales Cardiovascular: Regular rate, Regular Rhythm, Normal S1, Normal S2, No murmurs, No Ectopic Activity, PMI Normal, No rub noted, No Gallop Abdomen: Bowel Sounds Present, Soft, Non Tender, Non-Distended, Obese Extremities: No clubbing, No cyanosis, Capillary Refill Less than 3 Seconds Skin: No rashes, No breakdown Musculoskeletal: No Tenderness to Palpation of Joints or Extremities Neurological: Cranial nerves II-XII grossly intact, Neuro grossly intact, - - Patient is sedated and on the ventilator Psych/Mental Status: - - he is sedated and on the ventilator Vital Signs Temp Pulse Resp BP Pulse Ox 97.6 F L 60 16 94/62 92 06/21/17 14:00 06/21/17 14:00 06/21/17 14:00 06/21/17 14:00 06/21/17 14:00 Oxygen Delivery Method Mechanical Ventilator Weight: 165.6 kg Body Mass Index (BMI) 50.1 Intake and Output for Last 24 Hours 06/19/17 06/20/17 06/21/17 23:59 23:59 23:59 Intake Total 1248.3 / 1248.3 806.3 / 806.3 Output Total 1900 / 1900 1400 / 1400 Balance -651.7 / -651.7 -593.7 / -593.7 Microbiology Past 72 Hours 06/21/17 04:00 Gram Stain - Final Sputum, Induced/[place] 06/20/17 18:30 Influenza Types A,B Direct FA (GAYLE) - Final Mucosa - Nasopharyngeal 06/20/17 17:40 Streptococcus pneumoniae Antigen (M - Final Urine Catheter - [facility] 06/20/17 17:40 Legionella Antigen - Final Urine Catheter - [facility] Laboratory Tests Past 24 Hrs 06/20/17 06/20/17 06/20/17 17:40 17:40 20:05 WBC RBC Hgb Hct MCV MCH MCHC RDW RDW Differential Plt Count MPV Specimen Type ART Sample Site R Radial pH 7.45 Bicarbonate Actual 37.9 H POC Total CO2 40 Base Excess 14 H O2 Saturation 81 L O2 % 75 ABG pCO2 54.6 H ABG pO2 45 L Salas Test POS Respiration Rate 16 O2 Delivery Device Vent Minute Volume 8.00 Vent Mode A-C Tidal Volume 550 POC PEEP 10 Blood Gas Notified Whom ICU MD Blood Gas Notified Time 2000 Sodium Potassium Chloride Carbon Dioxide Anion Gap BUN Creatinine Estim Creat Clear Calc Est GFR (MDRD) Af Amer Est GFR (MDRD) Non-Af BUN/Creatinine Ratio Glucose Calcium Urine Color Yellow Urine Clarity Turbid Urine pH 7.0 Ur Specific [place] 1.015 Urine Protein 30 H Urine Glucose (UA) Normal Urine Ketones Negative Urine Occult Blood 10 H Urine Nitrite Negative Urine Bilirubin Negative Urine Urobilinogen Normal Ur Leukocyte Esterase Negative Urine RBC 0 SEEN Urine WBC 0 SEEN Ur Squamous Epith Cells 0 SEEN Amorphous Sediment 4+ Urine Bacteria 0 SEEN Urine Mucus 0 SEEN MRSA (PCR) Negative 06/21/17 06/21/17 06/21/17 03:40 03:40 05:39 WBC 6.9 RBC 4.47 L Hgb 11.5 L Hct 39.6 L MCV 88.6 MCH 25.7 L MCHC 29.0 L RDW 17.1 H RDW Differential 55.1 H Plt Count 180 MPV 9.2 Specimen Type ART Sample Site R Radial pH 7.40 Bicarbonate Actual 39.4 H POC Total CO2 41 Base Excess 15 H O2 Saturation 91 L O2 % 85 ABG pCO2 64.1 H ABG pO2 65 L Salas Test POS Respiration Rate 16 O2 Delivery Device Vent Minute Volume 7.00 Vent Mode A-C Tidal Volume 450 POC PEEP 12 Blood Gas Notified Whom ICU MD Blood Gas Notified Time 540 Sodium 140 Potassium 4.3 Chloride 96 L Carbon Dioxide 37.0 H Anion Gap 7 BUN 32 H Creatinine 0.83 Estim Creat Clear Calc 105.18 Est GFR (MDRD) Af Amer 121 Est GFR (MDRD) Non-Af 100 BUN/Creatinine Ratio 38.5 H Glucose 135 H Calcium 8.4 L Urine Color Urine Clarity Urine pH Ur Specific [place] Urine Protein Urine Glucose (UA) Urine Ketones Urine Occult Blood Urine Nitrite Urine Bilirubin Urine Urobilinogen Ur Leukocyte Esterase Urine RBC Urine WBC Ur Squamous Epith Cells Amorphous Sediment Urine Bacteria Urine Mucus MRSA (PCR) 06/21/17 14:10 WBC RBC Hgb Hct MCV MCH MCHC RDW RDW Differential Plt Count MPV Specimen Type Sample Site pH Bicarbonate Actual POC Total CO2 Base Excess O2 Saturation O2 % ABG pCO2 ABG pO2 Salas Test Respiration Rate O2 Delivery Device Minute Volume Vent Mode Tidal Volume POC PEEP Blood Gas Notified Whom Blood Gas Notified Time Sodium 138 Potassium 3.9 Chloride 95 L Carbon Dioxide 37.0 H Anion Gap 6 BUN 33 H Creatinine 0.81 Estim Creat Clear Calc 107.78 Est GFR (MDRD) Af Amer 125 Est GFR (MDRD) Non-Af 103 BUN/Creatinine Ratio 40.5 H Glucose 143 H Calcium 8.3 L Urine Color Urine Clarity Urine pH Ur Specific [place] Urine Protein Urine Glucose (UA) Urine Ketones Urine Occult Blood Urine Nitrite Urine Bilirubin Urine Urobilinogen Ur Leukocyte Esterase Urine RBC Urine WBC Ur Squamous Epith Cells Amorphous Sediment Urine Bacteria Urine Mucus MRSA (PCR) POC Glucose 06/21/17 06/20/17 11:37 23:27 POC Glucose 177 H 160 H Medical Necessity - Tobacco Use Smoking Status: Current every day smoker Tobacco Use: - - Resume cigarettes but unable to obtain as the patient is sedated Assessment/Plan Active and Suspected Problems (Last Reviewed 06/13/17 @ 14:25 by Binta Isaac) Acute respiratory failure with hypoxia and hypercapnia (Acute) Pneumococcal pneumonia (Acute) Metabolic encephalopathy (Acute) Heart failure with reduced ejection fraction (Acute) #1 combined respiratory failure secondary to acute diastolic congestive heart failure pulmonary medicine is managing his ventilator, he is currently receiving IV Lasix per critical care #2 acute diastolic congestive heart failure-echocardiogram performed today shows an intermediate ejection fraction of 50% #3 chronic obstructive pulmonary disease #4 morbid obesity #5 type 2 diabetes #6 ischemic cardiomyopathy #7 obstructive sleep apnea Code Visit Inpatient E&M: 52857 Subs Hosp L2
[2017-06-21] MEDS: Vital AF 1.2 Cal Liquid 1,000 ML 75 ML GT (15:56)
[2017-06-21 18:11] LABS: Bedside Glucose 140 mg/dL (70-110)
[2017-06-21 23:41] LABS: Bedside Glucose 149 mg/dL (70-110)
[2017-06-22] VITALS (42 sets, daily range): BP systolic 94–128; BP diastolic 55–80; PULSE 55–80; RESP 12–19; TEMP 36.3–36.8; O2SAT 87–94
[2017-06-22] MEDS: Propofol 10MG/Ml 1,000 MG/100 ML Bottle 5.199 MG CONT INF ×6 (02:09→21:13)
[2017-06-22] MEDS: Ipratropium/Albuterol Sulfate 3 ML AMPUL.NEB INHALATION ×4 (03:17→18:37)
[2017-06-22 05:21] LABS: Absolute Lymphocyte Count 0.92 X10^3/ul (0.83-4.51); Absolute Neutrophil Count 5.3 X10^3/uL (2.0-7.7); Hemoglobin 11.4 g/dl (13.0-16.5); Lymphocyte # 0.92 X10^3/ul (4.0); Lymphocyte % 13.4 % (19-41); Mean Corpuscular Hgb 26.5 pg (27.0-32.0); Mean Corpuscular Volume 88.2 fL (80-94); Mean Platelet Vol. 10.3 fl (6.2-12.0); Monocyte# 0.59 X10^3/uL; Monocyte% 8.6 % (0-10); Neutrophil # 5.34 X10^3/uL (2.7-7.7); Neutrophil % 77.6 % (47-70); Platelet Count 204 K/mm3 (150-450); RBC Distribution Width SD 53.7 fl (35.1-43.9); Red Blood Count 4.31 M/mm3 (4.6-6.2); White Blood Count 6.9 K/mm3 (4.4-11.0)
[2017-06-22] MEDS: CHLORHEXIDINE GLUC 2% CLOTH 1 EACH TOWELETTE TOPICAL (05:25)
[2017-06-22] MEDS: Furosemide 40 MG/4 ML Vial IV (05:26)
[2017-06-22] MEDS: 0.9% NaCl Peripheral Flush Adult/Peds IV ×2 (05:29→21:20)
[2017-06-22 05:30] LABS: Anion Gap 9 (5-15); BUN 34 mg/dL (7-18); BUN/Creat Ratio 40.9 RATIO (10-20); Calcium,Total 8.3 mg/dL (8.5-10.1); Chloride 93 mmol/L (98-107); Creatinine, Serum 0.83 mg/dL (0.70-1.30); EST Glomerular Filtration Rate 100 mL/min (>60); Est Glom Filt Rate - Afr Amer 121 mL/min (>60); Estimated Creatinine Clearance 105.18 ml/min; Glucose 171 mg/dL (74-106); Potassium 3.9 mmol/L (3.5-5.1); Sodium Level 138 mmol/L (136-145)
[2017-06-22 05:31] LABS: Bedside Glucose 173 mg/dL (70-110)
[2017-06-22 06:18] LABS: POSITIVE COUNT NO; POSITIVE DIFFERENTIAL NO; POSITIVE MORPHOLOGY NO
--- NOTE | 2017-06-22 06:23 | PN_ITS ---
Subjective: Patient did okay overnight. No acute issues were reported. Patient almost full tube feed goals. Patient has had stabilization of oxygenation overnight, but unable to wean FiO2. Patient's sedation is still high, but patient appears to be more interactive. General: No apparent distress, - - RASS -2. Morbidly obese. Good ventilator synchrony. Appears older than stated age. HEENT: Atraumatic, PERRLA, EOMI, Normocephalic, - - No scleral icterus or injection noted. Oral: Moist Mucosa, No Gingival or Mucosal Lesions/ Ulcerations Neck: Supple, No Nodes, Trachea Midline, JVD, Right Lungs: No rhonchi, No wheeze, No rales, Diminished, - - Symmetric expansion. No dullness to percussion. Cardiovascular: Regular rate, Regular Rhythm, Normal S1, Normal S2, No murmurs, No rub noted, No Gallop Abdomen: Bowel Sounds Present, Soft, Non Tender, Non-Distended, Obese Extremities: No clubbing, No cyanosis, Edema, - - Previous left great toe amputation Skin: - - Irritation in skin folds appear slightly improved compared to previous Musculoskeletal: No Tenderness to Palpation of Joints or Extremities Lymphatic: No Cervical, Supraclavicular, or Inguinal Adenopathy Neurological: Cranial nerves II-XII grossly intact, Neuro grossly intact Psych/Mental Status: Appropriate, Flat Affect Vital Signs Temp Pulse Resp BP Pulse Ox 36.5 C L 66 16 107/64 92 06/22/17 06:00 06/22/17 06:00 06/22/17 06:00 06/22/17 06:00 06/22/17 06:00 Oxygen Delivery Method Mechanical Ventilator Weight: 165.5 kg Body Mass Index (BMI) 50.1 Intake and Output for Last 24 Hours 06/20/17 06/21/17 06/22/17 23:59 23:59 23:59 Intake Total 1248.3 / 1248.3 1613.3 / 1613.3 536 / 536 Output Total 1900 / 1900 3225 / 3225 650 / 650 Balance -651.7 / -651.7 -1611.7 / -1611.7 -114 / -114 Labs (Last 48 Hours) 06/20/17 06/20/17 06/20/17 17:40 17:40 20:05 WBC RBC Hgb Hct MCV MCH MCHC RDW RDW Differential Plt Count MPV Neut % (Auto) Absolute Neuts (auto) Total Counted Specimen Type ART Sample Site R Radial pH 7.45 Bicarbonate Actual 37.9 H POC Total CO2 40 Base Excess 14 H O2 Saturation 81 L O2 % 75 ABG pCO2 54.6 H ABG pO2 45 L Salas Test POS Respiration Rate 16 O2 Delivery Device Vent Minute Volume 8.00 Vent Mode A-C Tidal Volume 550 POC PEEP 10 Blood Gas Notified Whom ICU MD Blood Gas Notified Time 2000 Sodium Potassium Chloride Carbon Dioxide Anion Gap BUN Creatinine Estim Creat Clear Calc Est GFR (MDRD) Af Amer Est GFR (MDRD) Non-Af BUN/Creatinine Ratio Glucose Calcium Urine Color Yellow Urine Clarity Turbid Urine pH 7.0 Ur Specific [place] 1.015 Urine Protein 30 H Urine Glucose (UA) Normal Urine Ketones Negative Urine Occult Blood 10 H Urine Nitrite Negative Urine Bilirubin Negative Urine Urobilinogen Normal Ur Leukocyte Esterase Negative Urine RBC 0 SEEN Urine WBC 0 SEEN Ur Squamous Epith Cells 0 SEEN Amorphous Sediment 4+ Urine Bacteria 0 SEEN Urine Mucus 0 SEEN MRSA (PCR) Negative POC Glucose 06/20/17 06/21/17 06/21/17 23:27 03:40 03:40 WBC 6.9 RBC 4.47 L Hgb 11.5 L Hct 39.6 L MCV 88.6 MCH 25.7 L MCHC 29.0 L RDW 17.1 H RDW Differential 55.1 H Plt Count 180 MPV 9.2 Neut % (Auto) Absolute Neuts (auto) Total Counted Specimen Type Sample Site pH Bicarbonate Actual POC Total CO2 Base Excess O2 Saturation O2 % ABG pCO2 ABG pO2 Salas Test Respiration Rate O2 Delivery Device Minute Volume Vent Mode Tidal Volume POC PEEP Blood Gas Notified Whom Blood Gas Notified Time Sodium 140 Potassium 4.3 Chloride 96 L Carbon Dioxide 37.0 H Anion Gap 7 BUN 32 H Creatinine 0.83 Estim Creat Clear Calc 105.18 Est GFR (MDRD) Af Amer 121 Est GFR (MDRD) Non-Af 100 BUN/Creatinine Ratio 38.5 H Glucose 135 H Calcium 8.4 L Urine Color Urine Clarity Urine pH Ur Specific [place] Urine Protein Urine Glucose (UA) Urine Ketones Urine Occult Blood Urine Nitrite Urine Bilirubin Urine Urobilinogen Ur Leukocyte Esterase Urine RBC Urine WBC Ur Squamous Epith Cells Amorphous Sediment Urine Bacteria Urine Mucus MRSA (PCR) POC Glucose 160 H 06/21/17 06/21/17 06/21/17 05:39 11:37 14:10 WBC RBC Hgb Hct MCV MCH MCHC RDW RDW Differential Plt Count MPV Neut % (Auto) Absolute Neuts (auto) Total Counted Specimen Type ART Sample Site R Radial pH 7.40 Bicarbonate Actual 39.4 H POC Total CO2 41 Base Excess 15 H O2 Saturation 91 L O2 % 85 ABG pCO2 64.1 H ABG pO2 65 L Salas Test POS Respiration Rate 16 O2 Delivery Device Vent Minute Volume 7.00 Vent Mode A-C Tidal Volume 450 POC PEEP 12 Blood Gas Notified Whom ICU MD Blood Gas Notified Time 540 Sodium 138 Potassium 3.9 Chloride 95 L Carbon Dioxide 37.0 H Anion Gap 6 BUN 33 H Creatinine 0.81 Estim Creat Clear Calc 107.78 Est GFR (MDRD) Af Amer 125 Est GFR (MDRD) Non-Af 103 BUN/Creatinine Ratio 40.5 H Glucose 143 H Calcium 8.3 L Urine Color Urine Clarity Urine pH Ur Specific [place] Urine Protein Urine Glucose (UA) Urine Ketones Urine Occult Blood Urine Nitrite Urine Bilirubin Urine Urobilinogen Ur Leukocyte Esterase Urine RBC Urine WBC Ur Squamous Epith Cells Amorphous Sediment Urine Bacteria Urine Mucus MRSA (PCR) POC Glucose 177 H 06/21/17 06/21/17 06/22/17 18:06 23:30 04:50 WBC Pending RBC Pending Hgb Pending Hct Pending MCV Pending MCH Pending MCHC Pending RDW Pending RDW Differential Pending Plt Count Pending MPV Neut % (Auto) Pending Absolute Neuts (auto) Pending Total Counted Pending Specimen Type Sample Site pH Bicarbonate Actual POC Total CO2 Base Excess O2 Saturation O2 % ABG pCO2 ABG pO2 Salas Test Respiration Rate O2 Delivery Device Minute Volume Vent Mode Tidal Volume POC PEEP Blood Gas Notified Whom Blood Gas Notified Time Sodium Potassium Chloride Carbon Dioxide Anion Gap BUN Creatinine Estim Creat Clear Calc Est GFR (MDRD) Af Amer Est GFR (MDRD) Non-Af BUN/Creatinine Ratio Glucose Calcium Urine Color Urine Clarity Urine pH Ur Specific [place] Urine Protein Urine Glucose (UA) Urine Ketones Urine Occult Blood Urine Nitrite Urine Bilirubin Urine Urobilinogen Ur Leukocyte Esterase Urine RBC Urine WBC Ur Squamous Epith Cells Amorphous Sediment Urine Bacteria Urine Mucus MRSA (PCR) POC Glucose 140 H 149 H 06/22/17 06/22/17 04:50 05:18 WBC RBC Hgb Hct MCV MCH MCHC RDW RDW Differential Plt Count MPV Neut % (Auto) Absolute Neuts (auto) Total Counted Specimen Type Sample Site pH Bicarbonate Actual POC Total CO2 Base Excess O2 Saturation O2 % ABG pCO2 ABG pO2 Salas Test Respiration Rate O2 Delivery Device Minute Volume Vent Mode Tidal Volume POC PEEP Blood Gas Notified Whom Blood Gas Notified Time Sodium 138 Potassium 3.9 Chloride 93 L Carbon Dioxide 36.0 H Anion Gap 9 BUN 34 H Creatinine 0.83 Estim Creat Clear Calc 105.18 Est GFR (MDRD) Af Amer 121 Est GFR (MDRD) Non-Af 100 BUN/Creatinine Ratio 40.9 H Glucose 171 H Calcium 8.3 L Urine Color Urine Clarity Urine pH Ur Specific [place] Urine Protein Urine Glucose (UA) Urine Ketones Urine Occult Blood Urine Nitrite Urine Bilirubin Urine Urobilinogen Ur Leukocyte Esterase Urine RBC Urine WBC Ur Squamous Epith Cells Amorphous Sediment Urine Bacteria Urine Mucus MRSA (PCR) POC Glucose 173 H Microbiology 06/21/17 04:00 Sputum, Induced/Lukens Gram Stain - Final 06/20/17 18:30 Mucosa - Nasopharyngeal Influenza Types A,B Direct FA (GAYLE) - Final 06/20/17 17:40 Urine Catheter - Butler Streptococcus pneumoniae Antigen (M - Final 06/20/17 17:40 Urine Catheter - Butler Legionella Antigen - Final Medical Necessity - Tobacco Use Smoking Status: Current every day smoker Tobacco Use: - - Resume cigarettes but unable to obtain as the patient is sedated Assessment/Plan Active and Suspected Problems (Last Reviewed 06/13/17 @ 14:25 by Binta Isaac) Acute respiratory failure with hypoxia and hypercapnia (Acute) Pneumococcal pneumonia (Acute) Metabolic encephalopathy (Acute) Heart failure with reduced ejection fraction (Acute) RECOMMENDATIONS: 1. Continue PEEP as necessary 2. Attempt to wean oxygen to less than 60% 3. Aggressive diuresis, possibly transition to Lasix drip 4. Agree with steroids, bronchodilators and empiric antibiotics 5. Nystatin powder to skin folds 6. Discontinue antibiotics if culture negative and afebrile at 48 hours IMPRESSIONS: 1. Acute on chronic combined respiratory failure Clinical suspicion for acute on chronic systolic congestive heart failure as an etiology secondary to noncompliance with low-salt diet. Patient is also supposed to be on BiPAP therapy as an outpatient, but is not compliant. Low clinical suspicion for COPD/asthma exacerbation, but history is not available at this time. Agree with treating empirically with antibiotics, steroids and bronchodilators for now. Aggressive diuresis. Increase PEEP as necessary to attempt to decrease FiO2 to less than 60%. Cannot exclude the need for a Lasix drip. 2. Acute on chronic systolic congestive heart failure/coronary artery disease Patient's last known ejection fraction is 30-35%. Repeat echocardiogram shows improvement in ejection fraction to 50%. Technically difficult echocardiogram. Cannot exclude valvular dysfunction leading to artificially improved ejection fraction. Telemetry is unimpressive at this time. We will continue with aggressive diuresis. 3. Metabolic encephalopathy secondary to #1 Patient with significant CO2 retention on presentation. ABG this morning shows adequate oxygenation and ventilation. Patient is on fentanyl and propofol for vent synchrony. Will continue to monitor. This appears to be improving as patient is more directable today compared to previous 4. Diabetes mellitus type 2 Continue tube feeds. Anticipate prolonged intubation secondary to need for diuretic therapy and offloading of the heart. Continue to monitor blood sugars. Appears to be well-controlled at this time. 5. Morbid obesity/history of noncompliance/hypertension/seasonal allergies Complicates care, management, recovery and prognosis. On baseline medications. TIME: 32 minutes critical care time spent addressing patient's acute on chronic respiratory failure, congestive heart failure, metabolic encephalopathy, review of all data and collaboration with care team. (5:30 AM to 6:15 AM) Code Visit 9xxxx: [id number] Critical care first hour
--- NOTE | 2017-06-22 08:49 | PCM.CONS.C ---
Problem List (1) Heart failure with reduced ejection fraction Status: Acute Qualifiers: Heart failure chronicity: acute Qualified Code(s): I50.21 - Acute systolic (congestive) heart failure (2) Ischemic cardiomyopathy Status: Chronic (3) Chronic systolic congestive heart failure Status: Chronic (4) Presence of stent in coronary artery Status: Chronic Comment: PCI/stent LAD w/ 4.0 x 32 mm Promus 2012; PCI/GISSEL to Prox LAD w/ 4.0 x 20 mm Promus 02/25/16 for instent restenosis (5) Atherosclerotic heart disease of [place] coronary artery without angina pectoris Status: Chronic Comment: PCI/stent LAD w/ 4.0 x 32 mm Promus 2012; PCI/GISSEL to Prox LAD w/ 4.0 x 20 mm Promus 02/25/16 for instent restenosis Reason for Consult Date of Consultation: 06/22/17 Reason for Consultation: Ischemic cardiomyopathy, CHF, acute respiratory distress, hypertension, hypercholesterolemia, coronary artery disease History of Present Illness: Patient is a very pleasant 57-year-old morbidly obese diabetic gentleman with a history of hypertension, hypercholesterolemia, coronary disease s/p stent to his proximal LAD several years ago in 2012 by myself. Patient had a repeat stress test in February 2014 which demonstrated old anteroseptal wall ID and possible adelita-infarct ischemia. He underwent repeat catheterization at that time which demonstrated widely patent stent with mild to moderate in-stent restenosis, no other lesions and very small right coronary artery which was chronically occluded with right to right collaterals. Patient had not following up with me for some time until 12/02/16. At that time he was doing quite well. He was taking and tolerating his medicines well. Patient was previously admitted to [facility] ER on 02/21/16. Patient reported nonexertional unstable anginal symptoms described as a 6 out of 10 in nature. This occurred while he was watching TV. His EKG in the ER demonstrated normal sinus rhythm with old anterior wall microinfarction, no acute changes noted. His troponin was initially negative and 1 up to 0.69 and a peak of 1.05. He had remained chest pain-free. He continues of cigarettes per day started smoking at age 10 consistent with at least a [id number]-year smoking history. There is some question as to his medical compliance. Given his history he underwent repeat catheterization on 02/23/16 which demonstrated significant in-stent restenosis and required a repeat stent. He received a 4.0X 20 Promus synergy stent without complication. He underwent a repeat non-walking nuclear stress test on 04/21/16 to evaluate his circumflex which demonstrated ectasia in the proximal portion and some possible minor plaque ulceration that was nonflow limiting, which was negative for lateral ischemia suggesting an EF around 46%. Previous anterior infarct was noted. Ejection fraction was 4045 percent. Patient is currently intubated, sedated, on propofol and fentanyl drips. He is unresponsive. As best I can tell the patient has had dietary indiscretion and a CHF exacerbation with acute respiratory distress requiring urgent intubation. The patient appears to have significant anasarca, and was in fact found with a funyon bag of chips nearby his person. He was found to be hypoxic on 100% nonrebreather, chest x-ray suggested either CHF exacerbation versus pneumonia. He has been given IV diuretics in the form of Lasix 40 mg IV every 8 hours and is diuresed -2.5 L but is slowing down. EKG on admission showed normal sinus rhythm with poor R-wave progression across the cardia consistent with previous anterior wall myocardial infarction, and some nonspecific ST and T-wave changes. [] Past Medical History Allergies/Adverse Reactions: Allergies adhesive tape Adverse Reaction (Verified 06/13/17 14:25) Rash Home Medications: Ambulatory Orders Medication Instructions Recorded Mometasone/Formoterol [Dulera 200 1 puff IH BID 07/11/14 Mcg/5 Mcg Inhaler] Aspirin E.C. [Ecotrin] 81 mg PO DAILY@0800 12/27/15 Atorvastatin Calcium [Lipitor] 40 mg PO QHS 12/27/15 Mag Hydrox/Al Hydrox/Simeth 30 ml PO Q4H PRN PRN 12/27/15 [Antacid Liquid] Magnesium Hydroxide [Milk Of 30 ml PO DAILY PRN PRN 12/27/15 Magnesia] Polyvinyl Alcohol/Povidone/Pf 1 ea OP PRN PRN 12/27/15 [Refresh Classic Eye Drops] Acetaminophen [Mapap] 1,000 mg PO TID PRN PRN 01/17/17 Albuterol Aerosols [Ventolin 2.5 mg INHALATION TID 01/17/17 Aerosols] Meloxicam [Mobic] 15 mg PO DAILY 01/17/17 Polyethylene Glycol 3350 [Miralax] 17 gm PO DAILY 01/17/17 carvedilol 6.25 mg tablet 6.25 mg PO BID 06/10/17 furosemide 40 mg tablet 40 mg PO BID tab 06/13/17 losartan 50 mg tablet 25 mg PO DAILY tab 06/13/17 metolazone 2.5 mg tablet 2.5 mg PO .1xweek tab 06/13/17 potassium chloride ER 20 mEq 20 meq PO DAILY 06/13/17 tablet,extended release Clopidogrel Bisulfate [Plavix] 75 mg PO DAILY 06/20/17 Gabapentin [Neurontin] 400 mg PO TID 06/20/17 Metformin HCl [Glucophage] 1,000 mg PO BIDCM 06/20/17 Metolazone [Zaroxolyn] 2.5 mg PO MO 06/20/17 Montelukast [Singulair] 10 mg PO DAILY 06/20/17 Past Medical History (Chronic Problems): Chronic Problems (Last Reviewed 06/13/17 @ 14:25 by Binta Isaac) Ischemic cardiomyopathy (Chronic) Chronic systolic congestive heart failure (Chronic) Presence of stent in coronary artery (Chronic ~02/25/16) PCI/stent LAD w/ 4.0 x 32 mm Promus 2012; PCI/GISSEL to Prox LAD w/ 4.0 x 20 mm Promus 02/25/16 for instent restenosis Atherosclerotic heart disease of [place] coronary artery without angina pectoris (Chronic) PCI/stent LAD w/ 4.0 x 32 mm Promus 2012; PCI/GISSEL to Prox LAD w/ 4.0 x 20 mm Promus 02/25/16 for instent restenosis Asthma-COPD overlap syndrome (Chronic) FEV1 46% (01/11/2017) DM2 (diabetes mellitus, type 2) (Chronic) NSTEMI (non-ST elevated myocardial infarction) (Chronic) Venous stasis of lower extremity (Chronic) Ischemic cardiomyopathy (Chronic) EF of 35% on Cath in February of 2014 Surgical History: no surgical history Psychiatric History: No pertinent psych hx - *Family History Maternal Family History: Family History (Last Reviewed 06/13/17 @ 14:25 by Binta Isaac) Mother Diabetes Heart disease History Items: No pertinent history, - - Unable to obtain as the patient is intubated and sedated Lives: Alone Smoking Status: Current every day smoker Tobacco Use: - - Resume cigarettes but unable to obtain as the patient is sedated Review of Systems - Review of Systems General: Denies: Fever, Night Sweats, Fatigue Cardiovascular: Reports: Shortness of Breath, Shortness of Breath at Rest. Denies: Chest Discomfort, Orthopnea, PND, Peripheral Edema, Palpitations, Lightheadedness, Dizziness, Near Syncope, Syncope Respiratory: Denies: Cough, Sputum Production, Hemoptysis Gastrointestinal: Denies: Hematemesis, Hematochezia, Melena Genitourinary: Denies: Dysuria, Hematuria Skin: Denies: Rash Subjectve: Patient sedated, intubated, unresponsive. No acute distress. Heme and apically stable. No other family members around to corroborate history. Patient has significant anasarca in his face, arms, and legs. Objective: Vital Signs Temp Pulse Resp BP Pulse Ox 97.3 F L 60 16 101/61 91 06/22/17 07:00 06/22/17 08:00 06/22/17 08:00 06/22/17 08:00 06/22/17 08:00 Oxygen Delivery Method Mechanical Ventilator Weight: 364 lb 13.84 oz Body Mass Index (BMI) 50.1 Intake and Output for Last 24 Hours 06/20/17 06/21/17 06/22/17 23:59 23:59 23:59 Intake Total 1248.3 / 1248.3 1613.3 / 1613.3 536 / 536 Output Total 1900 / 1900 3225 / 3225 650 / 650 Balance -651.7 / -651.7 -1611.7 / -1611.7 -114 / -114 General: Awake, Alert, Oriented x 3 HEENT: PERRL, EOMI, Sclera Non Icteric Neck: Supple, Good ROM, No Lymph Node Enlargement Lungs: Clear to auscultation Cardiovascular: Regular Rhythm, Normal S1, Normal S2, No Murmurs, No Rubs, No Gallops Vascular: No Carotid Bruits, Normal Femoral Pulses, Normal Radial Pulses, Normal Dorsalis Pedal Pulse, Normal Posterior Tibial Pulses Abdomen: Bowel Sounds Present, Soft, Non Tender, No HSM, No Organomegaly Extremities: No Cyanosis, No Clubbing, No edema Neurological: No Focal Motor or Sensory Deficit 06/21/17 14:10: Sodium 138, Potassium 3.9, Chloride 95 L, Carbon Dioxide 37.0 H, Anion Gap 6, BUN 33 H, Creatinine 0.81, Est GFR (MDRD) Af Amer 125, Est GFR (MDRD) Non-Af 103, BUN/Creatinine Ratio 40.5 H, Glucose 143 H, Calcium 8.3 L 06/22/17 04:50: WBC 6.9, RBC 4.31 L, Hgb 11.4 L, Hct 38.0 L, MCV 88.2, MCH 26.5 L, MCHC 30.0 L, RDW 17.0 H, RDW Differential 53.7 H, Plt Count 204, MPV 10.3, Immature Gran % (Auto) 0.400, Neut % (Auto) 77.6 H, Lymph % (Auto) 13.4 L, [place] % (Auto) 8.6, Eos % (Auto) 0.0, Baso % (Auto) 0.0, Absolute Neuts (auto) 5.3, Total Counted Not Reportable 06/22/17 04:50: Sodium 138, Potassium 3.9, Chloride 93 L, Carbon Dioxide 36.0 H, Anion Gap 9, BUN 34 H, Creatinine 0.83, Est GFR (MDRD) Af Amer 121, Est GFR (MDRD) Non-Af 100, BUN/Creatinine Ratio 40.9 H, Glucose 171 H, Calcium 8.3 L Rhythm: Normal sinus rhythm with PVCs. EKG: As above ECHO: Echo dated 06/21/17 showed an EF around 50%, unable to quantitate RVSP. Stress Test: Cardiac Cath: PCI: CT Surgery: Holter monitor: EPS: PPM: CXR: Chest CT Scan: Assessment/Plan 1. Congestive heart failure: The patient's chest x-ray suggest pulmonary vascular redistribution, but there appears to be a density in the right upper lobe possibly due to aspiration or pneumonia. Patient also has evidence of anasarca with significant edema in his legs, face and hands. He was found with salty foods nearby, suggesting he has had dietary indiscretion with increased salt and water intake. Patient has known coronary artery disease, and ischemic cardiomyopathy, and is undetermined whether he was compliant with his medicines as there are no family representatives to clarify his medical condition at home. Given his presentation, it is most likely has a CHF exacerbations possibly superimposed on a pneumonia. Recommend switching him from IV Lasix periodically to a Bumex drip at 0.5 mg/h in an attempt to gradually diurese him rather than diurese him in spurts. Would recommend a net -2.5 L fluid removal on a daily basis. Recommend replacing his potassium magnesium as he diuresis to avoid ventricular arrhythmias. At home he was on Lasix 40 mg p.o. twice daily assuming he was taking it. His echocardiogram shows his EF is approximately 50% which is consistent with his previous ejection fraction is based on recent stress testing. He has known coronary disease of his LAD requiring redo stenting for in-stent restenosis, and known ectatic circumflex disease which had no significant ischemia by stress testing in the recent past. His troponins are negative. At this point we will hold off on catheterization unless and until the patient is having difficulty weaning from the ventilator. Would recommend continuing baby aspirin and Plavix going forward. In addition recommend continuing Cozaar 50 mg p.o. daily and cutting his Coreg in half to 3.125 mg p.o. twice daily until he is through his CHF exacerbation, at which time we will increase it back to 6.25 mg twice daily assuming he is tolerating it. Would recommend maximum concentration of all medications and a 1500 cc fluid restriction. 2. Right upper lobe infiltrate: Patient appears to have a right upper lobe infiltrate by chest x-ray by my review and confirmed by radiology. Continue antibiotic therapy per protocol. 3. Hyperlipidemia: Given his coronary history and diabetes history requires LDL reduction of less than 70. Continue Lipitor. 4. Thank you very much for the opportunity to participate in the cardiac care of your patient. Consultation time took place between 845 at 9:15 AM. Code Visit Inpatient E&M: [id number] Init Hosp L3
--- NOTE | 2017-06-22 08:59 | CON.PCM_ITS ---
Problem List (1) Heart failure with reduced ejection fraction Status: Acute Qualifiers: Heart failure chronicity: acute Qualified Code(s): I50.21 - Acute systolic (congestive) heart failure (2) Ischemic cardiomyopathy Status: Chronic (3) Chronic systolic congestive heart failure Status: Chronic (4) Presence of stent in coronary artery Status: Chronic Comment: PCI/stent LAD w/ 4.0 x 32 mm Promus 2012; PCI/GISSEL to Prox LAD w/ 4.0 x 20 mm Promus 02/25/16 for instent restenosis (5) Atherosclerotic heart disease of [place] coronary artery without angina pectoris Status: Chronic Comment: PCI/stent LAD w/ 4.0 x 32 mm Promus 2012; PCI/GISSEL to Prox LAD w/ 4.0 x 20 mm Promus 02/25/16 for instent restenosis Reason for Consult Date of Consultation: 06/22/17 Reason for Consultation: Ischemic cardiomyopathy, CHF, acute respiratory distress, hypertension, hypercholesterolemia, coronary artery disease History of Present Illness: Patient is a very pleasant 57-year-old morbidly obese diabetic gentleman with a history of hypertension, hypercholesterolemia, coronary disease s/p stent to his proximal LAD several years ago in 2012 by myself. Patient had a repeat stress test in February 2014 which demonstrated old anteroseptal wall [place] and possible adelita-infarct ischemia. He underwent repeat catheterization at that time which demonstrated widely patent stent with mild to moderate in-stent restenosis, no other lesions and very small right coronary artery which was chronically occluded with right to right collaterals. Patient had not following up with me for some time until 12/02/16. At that time he was doing quite well. He was taking and tolerating his medicines well. Patient was previously admitted to [facility] ER on 02/21/16. Patient reported nonexertional unstable anginal symptoms described as a 6 out of 10 in nature. This occurred while he was watching TV. His EKG in the ER demonstrated normal sinus rhythm with old anterior wall microinfarction, no acute changes noted. His troponin was initially negative and 1 up to 0.69 and a peak of 1.05. He had remained chest pain-free. He continues of cigarettes per day started smoking at age 10 consistent with at least a 66-52-ehbc-year smoking history. There is some question as to his medical compliance. Given his history he underwent repeat catheterization on 02/23/16 which demonstrated significant in-stent restenosis and required a repeat stent. He received a 4.0X 20 Promus synergy stent without complication. He underwent a repeat non-walking nuclear stress test on 04/21/16 to evaluate his circumflex which demonstrated ectasia in the proximal portion and some possible minor plaque ulceration that was nonflow limiting, which was negative for lateral ischemia suggesting an EF around 46%. Previous anterior infarct was noted. Ejection fraction was 40?45 percent. Patient is currently intubated, sedated, on propofol and fentanyl drips. He is unresponsive. As best I can tell the patient has had dietary indiscretion and a CHF exacerbation with acute respiratory distress requiring urgent intubation. The patient appears to have significant anasarca, and was in fact found with a funyon bag of chips nearby his person. He was found to be hypoxic on 100% nonrebreather, chest x-ray suggested either CHF exacerbation versus pneumonia. He has been given IV diuretics in the form of Lasix 40 mg IV every 8 hours and is diuresed -2.5 L but is slowing down. EKG on admission showed normal sinus rhythm with poor R-wave progression across the cardia consistent with previous anterior wall myocardial infarction, and some nonspecific ST and T-wave changes. [] Past Medical History Allergies/Adverse Reactions: Allergies adhesive tape Adverse Reaction (Verified 06/13/17 14:25) Rash Home Medications: Ambulatory Orders Medication Instructions Recorded Mometasone/Formoterol [Dulera 200 1 puff IH BID 07/11/14 Mcg/5 Mcg Inhaler] Aspirin E.C. [Ecotrin] 81 mg PO DAILY@0800 12/27/15 Atorvastatin Calcium [Lipitor] 40 mg PO QHS 12/27/15 Mag Hydrox/Al Hydrox/Simeth 30 ml PO Q4H PRN PRN 12/27/15 [Antacid Liquid] Magnesium Hydroxide [Milk Of 30 ml PO DAILY PRN PRN 12/27/15 Magnesia] Polyvinyl Alcohol/Povidone/Pf 1 ea OP PRN PRN 12/27/15 [Refresh Classic Eye Drops] Acetaminophen [Mapap] 1,000 mg PO TID PRN PRN 01/17/17 Albuterol Aerosols [Ventolin 2.5 mg INHALATION TID 01/17/17 Aerosols] Meloxicam [Mobic] 15 mg PO DAILY 12/11/17 Polyethylene Glycol 3350 [Miralax] 17 gm PO DAILY 01/17/17 carvedilol 6.25 mg tablet 6.25 mg PO BID 06/10/17 furosemide 40 mg tablet 40 mg PO BID tab 06/13/17 losartan 50 mg tablet 25 mg PO DAILY tab 06/13/17 metolazone 2.5 mg tablet 2.5 mg PO .1xweek tab 06/13/17 potassium chloride ER 20 mEq 20 meq PO DAILY 06/13/17 tablet,extended release Clopidogrel Bisulfate [Plavix] 75 mg PO DAILY 06/20/17 Gabapentin [Neurontin] 400 mg PO TID 06/20/17 Metformin HCl [Glucophage] 1,000 mg PO BIDCM 06/20/17 Metolazone [Zaroxolyn] 2.5 mg PO MO 06/20/17 Montelukast [Singulair] 10 mg PO DAILY 06/20/17 Past Medical History (Chronic Problems): Chronic Problems (Last Reviewed 06/13/17 @ 14:25 by Binta Isaac) Ischemic cardiomyopathy (Chronic) Chronic systolic congestive heart failure (Chronic) Presence of stent in coronary artery (Chronic ~02/25/16) PCI/stent LAD w/ 4.0 x 32 mm Promus 2012; PCI/GISSEL to Prox LAD w/ 4.0 x 20 mm Promus 02/25/16 for instent restenosis Atherosclerotic heart disease of [place] coronary artery without angina pectoris (Chronic) PCI/stent LAD w/ 4.0 x 32 mm Promus 2012; PCI/GISSEL to Prox LAD w/ 4.0 x 20 mm Promus 02/25/16 for instent restenosis Asthma-COPD overlap syndrome (Chronic) FEV1 46% (01/11/2017) DM2 (diabetes mellitus, type 2) (Chronic) NSTEMI (non-ST elevated myocardial infarction) (Chronic) Venous stasis of lower extremity (Chronic) Ischemic cardiomyopathy (Chronic) EF of 35% on Cath in February of 2014 Surgical History: no surgical history Psychiatric History: No pertinent psych hx - *Family History Maternal Family History: Family History (Last Reviewed 06/13/17 @ 14:25 by Binta Isaac) Mother Diabetes Heart disease History Items: No pertinent history, - - Unable to obtain as the patient is intubated and sedated Lives: Alone Smoking Status: Current every day smoker Tobacco Use: - - Resume cigarettes but unable to obtain as the patient is sedated Review of Systems - Review of Systems General: Denies: Fever, Night Sweats, Fatigue Cardiovascular: Reports: Shortness of Breath, Shortness of Breath at Rest. Denies: Chest Discomfort, Orthopnea, PND, Peripheral Edema, Palpitations, Lightheadedness, Dizziness, Near Syncope, Syncope Respiratory: Denies: Cough, Sputum Production, Hemoptysis Gastrointestinal: Denies: Hematemesis, Hematochezia, Melena Genitourinary: Denies: Dysuria, Hematuria Skin: Denies: Rash Subjectve: Patient sedated, intubated, unresponsive. No acute distress. Heme and apically stable. No other family members around to corroborate history. Patient has significant anasarca in his face, arms, and legs. Objective: Vital Signs Temp Pulse Resp BP Pulse Ox 97.3 F L 60 16 101/61 91 06/22/17 07:00 06/22/17 08:00 06/22/17 08:00 06/22/17 08:00 06/22/17 08:00 Oxygen Delivery Method Mechanical Ventilator Weight: 364 lb 13.84 oz Body Mass Index (BMI) 50.1 Intake and Output for Last 24 Hours 06/20/17 06/21/17 06/22/17 23:59 23:59 23:59 Intake Total 1248.3 / 1248.3 1613.3 / 1613.3 536 / 536 Output Total 1900 / 1900 3225 / 3225 650 / 650 Balance -651.7 / -651.7 -1611.7 / -1611.7 -114 / -114 General: Awake, Alert, Oriented x 3 HEENT: PERRL, EOMI, Sclera Non Icteric Neck: Supple, Good ROM, No Lymph Node Enlargement Lungs: Clear to auscultation Cardiovascular: Regular Rhythm, Normal S1, Normal S2, No Murmurs, No Rubs, No Gallops Vascular: No Carotid Bruits, Normal Femoral Pulses, Normal Radial Pulses, Normal Dorsalis Pedal Pulse, Normal Posterior Tibial Pulses Abdomen: Bowel Sounds Present, Soft, Non Tender, No HSM, No Organomegaly Extremities: No Cyanosis, No Clubbing, No edema Neurological: No Focal Motor or Sensory Deficit 06/21/17 14:10: Sodium 138, Potassium 3.9, Chloride 95 L, Carbon Dioxide 37.0 H , Anion Gap 6, BUN 33 H, Creatinine 0.81, Est GFR (MDRD) Af Amer 125, Est GFR ( MDRD) Non-Af 103, BUN/Creatinine Ratio 40.5 H, Glucose 143 H, Calcium 8.3 L 06/22/17 04:50: WBC 6.9, RBC 4.31 L, Hgb 11.4 L, Hct 38.0 L, MCV 88.2, MCH 26.5 L, MCHC 30.0 L, RDW 17.0 H, RDW Differential 53.7 H, Plt Count 204, MPV 10.3, Immature Gran % (Auto) 0.400, Neut % (Auto) 77.6 H, Lymph % (Auto) 13.4 L, [place] % (Auto) 8.6, Eos % (Auto) 0.0, Baso % (Auto) 0.0, Absolute Neuts (auto) 5.3, Total Counted Not Reportable 06/22/17 04:50: Sodium 138, Potassium 3.9, Chloride 93 L, Carbon Dioxide 36.0 H , Anion Gap 9, BUN 34 H, Creatinine 0.83, Est GFR (MDRD) Af Amer 121, Est GFR ( MDRD) Non-Af 100, BUN/Creatinine Ratio 40.9 H, Glucose 171 H, Calcium 8.3 L Rhythm: Normal sinus rhythm with PVCs. EKG: As above ECHO: Echo dated 06/21/17 showed an EF around 50%, unable to quantitate RVSP. Stress Test: Cardiac Cath: PCI: CT Surgery: Holter monitor: EPS: PPM: CXR: Chest CT Scan: Assessment/Plan 1. Congestive heart failure: The patient's chest x-ray suggest pulmonary vascular redistribution, but there appears to be a density in the right upper lobe possibly due to aspiration or pneumonia. Patient also has evidence of anasarca with significant edema in his legs, face and hands. He was found with salty foods nearby, suggesting he has had dietary indiscretion with increased salt and water intake. Patient has known coronary artery disease, and ischemic cardiomyopathy, and is undetermined whether he was compliant with his medicines as there are no family representatives to clarify his medical condition at home. Given his presentation, it is most likely has a CHF exacerbations possibly superimposed on a pneumonia. Recommend switching him from IV Lasix periodically to a Bumex drip at 0.5 mg/h in an attempt to gradually diurese him rather than diurese him in spurts. Would recommend a net -2.5 L fluid removal on a daily basis. Recommend replacing his potassium magnesium as he diuresis to avoid ventricular arrhythmias. At home he was on Lasix 40 mg p.o. twice daily assuming he was taking it. His echocardiogram shows his EF is approximately 50% which is consistent with his previous ejection fraction is based on recent stress testing. He has known coronary disease of his LAD requiring redo stenting for in-stent restenosis, and known ectatic circumflex disease which had no significant ischemia by stress testing in the recent past. His troponins are negative. At this point we will hold off on catheterization unless and until the patient is having difficulty weaning from the ventilator. Would recommend continuing baby aspirin and Plavix going forward. In addition recommend continuing Cozaar 50 mg p.o. daily and cutting his Coreg in half to 3.125 mg p.o. twice daily until he is through his CHF exacerbation, at which time we will increase it back to 6.25 mg twice daily assuming he is tolerating it. Would recommend maximum concentration of all medications and a 1500 cc fluid restriction. 2. Right upper lobe infiltrate: Patient appears to have a right upper lobe infiltrate by chest x-ray by my review and confirmed by radiology. Continue antibiotic therapy per protocol. 3. Hyperlipidemia: Given his coronary history and diabetes history requires LDL reduction of less than 70. Continue Lipitor. 4. Thank you very much for the opportunity to participate in the cardiac care of your patient. Consultation time took place between 845 at 9:15 AM. Code Visit Inpatient E&M: 28783 Init Hosp L3
--- NOTE | 2017-06-22 09:59 | CASEMGMT ---
SW participated in ICU rounds this morning, pt is still intubated. Pt is from [facility], after prior hospitalizations pt has returned to [facility], has also gone to [facility] for skilled time. SW will continue to follow for discharge planning needs. BUDDY Cowart, [employer]ING SURVEILLANCE OBSERVER
[2017-06-22] MEDS: Losartan Potassium 25 MG Tablet GT (10:03)
[2017-06-22] MEDS: Polyethylene Glycol 3350 17 GM PACKET GT ×2 (10:03→21:15)
[2017-06-22] MEDS: Famotidine 20 MG Tablet GT ×2 (10:03→21:16)
[2017-06-22] MEDS: Docusate Sodium 100 MG/10 ML UDC GT ×2 (10:03→21:14)
[2017-06-22] MEDS: Senna/Docusate Sodium 1 Tablet 2 TABLET GT ×2 (10:03→21:16)
[2017-06-22] MEDS: Aspirin 81 MG TAB.CHEW GT (10:04)
[2017-06-22] MEDS: Clopidogrel Bisulfate 75 MG Tablet GT (10:04)
[2017-06-22] MEDS: Carvedilol 3.125 MG TABLET GT ×2 (10:05→21:15)
[2017-06-22] MEDS: Chlorhexidine 15 ML PO ×2 (10:05→21:19)
[2017-06-22] MEDS: Enoxaparin 40 MG/0.4 ML Syringe SC (10:06)
[2017-06-22] MEDS: Nystatin Powder 15gm Bottle 1 APPLIC TOPICAL ×2 (10:07→21:17)
[2017-06-22] MEDS: Bumetanide 25 MG in CONTAINER,EMPTY 1 BAG CONT INF (10:24)
[2017-06-22] MEDS: Ceftriaxone 1 GM/50 ML BAG IV (11:25)
[2017-06-22 11:31] LABS: Bedside Glucose 228 mg/dL (70-110)
[2017-06-22] MEDS: Vital AF 1.2 Cal Liquid 1,000 ML 75 ML GT (13:28)
[2017-06-22 15:32] LABS: Anion Gap 5 (5-15); BUN 32 mg/dL (7-18); BUN/Creat Ratio 40.5 RATIO (10-20); Calcium,Total 8.4 mg/dL (8.5-10.1); Chloride 94 mmol/L (98-107); Creatinine, Serum 0.79 mg/dL (0.70-1.30); EST Glomerular Filtration Rate 107 mL/min (>60); Est Glom Filt Rate - Afr Amer 129 mL/min (>60); Estimated Creatinine Clearance 110.51 ml/min; Glucose 157 mg/dL (74-106); Potassium 3.7 mmol/L (3.5-5.1); Sodium Level 137 mmol/L (136-145)
--- NOTE | 2017-06-22 16:52 | PCM.PROGNOTE ---
Patient Problems: Active and Suspected Problems (Last Reviewed 06/13/17 @ 14:25 by Binta Isaac) Acute respiratory failure with hypoxia and hypercapnia (Acute) Pneumococcal pneumonia (Acute) Metabolic encephalopathy (Acute) Heart failure with reduced ejection fraction (Acute) Subjective: Patient was seen and examined today, he remains sedated and on the ventilator, I talked with cardiology and critical care about his care today. Patient's white blood cell count remains normal, he remains afebrile. - Physical Exam General: No apparent distress, Well developed, Well nourished HEENT: Atraumatic, PERRLA, Normocephalic Oral: Moist Mucosa Neck: Supple, No JVD, Negative Carotid Bruits, No Nuchal Rigidity, Trachea Midline, Thyroid Normal Size and Texture Lungs: Clear to auscultation, Normal air movement, No rhonchi, No wheeze, No rales Cardiovascular: Regular rate, Regular Rhythm, Normal S1, Normal S2, No murmurs, No Ectopic Activity, PMI Normal, No rub noted Abdomen: Bowel Sounds Present, Soft, Non Tender, Non-Distended, Obese, No hernias noted Extremities: No clubbing, No cyanosis, Capillary Refill Less than 3 Seconds Skin: No rashes, No breakdown Neurological: Cranial nerves II-XII grossly intact, Neuro grossly intact Psych/Mental Status: - - Patient is sedated and on the ventilator Vital Signs Temp Pulse Resp BP Pulse Ox 97.7 F L 61 16 96/59 L 92 06/22/17 16:00 06/22/17 16:00 06/22/17 16:00 06/22/17 16:00 06/22/17 16:00 Oxygen Delivery Method Mechanical Ventilator Weight: 165.5 kg Body Mass Index (BMI) 50.1 Intake and Output for Last 24 Hours 06/20/17 06/21/17 06/22/17 23:59 23:59 23:59 Intake Total 1248.3 / 1248.3 1613.3 / 1613.3 1811 / 1811 Output Total 1900 / 1900 3225 / 3225 2200 / 2200 Balance -651.7 / -651.7 -1611.7 / -1611.7 -389 / -389 Microbiology Past 72 Hours 06/20/17 17:40 Urine Culture - Preliminary Urine, Clean Catch Culture exhibits no growth. 06/21/17 04:00 Gram Stain - Final Sputum, Induced/[place] 06/20/17 18:30 Influenza Types A,B Direct FA (GAYLE) - Final Mucosa - Nasopharyngeal 06/20/17 17:40 Streptococcus pneumoniae Antigen (M - Final Urine Catheter - [place] 06/20/17 17:40 Legionella Antigen - Final Urine Catheter - [place] Laboratory Tests Past 24 Hrs 06/22/17 06/22/17 06/22/17 04:50 04:50 14:15 WBC 6.9 RBC 4.31 L Hgb 11.4 L Hct 38.0 L MCV 88.2 MCH 26.5 L MCHC 30.0 L RDW 17.0 H RDW Differential 53.7 H Plt Count 204 MPV 10.3 Immature Gran % (Auto) 0.400 Neut % (Auto) 77.6 H Lymph % (Auto) 13.4 L [place] % (Auto) 8.6 Eos % (Auto) 0.0 Baso % (Auto) 0.0 Absolute Neuts (auto) 5.3 Absolute Lymphs (auto) 0.92 Total Counted Not Reportable Sodium 138 137 Potassium 3.9 3.7 Chloride 93 L 94 L Carbon Dioxide 36.0 H 38.0 H Anion Gap 9 5 BUN 34 H 32 H Creatinine 0.83 0.79 Estim Creat Clear Calc 105.18 110.51 Est GFR (MDRD) Af Amer 121 129 Est GFR (MDRD) Non-Af 100 107 BUN/Creatinine Ratio 40.9 H 40.5 H Glucose 171 H 157 H Calcium 8.3 L 8.4 L POC Glucose 06/22/17 06/22/17 06/21/17 11:23 05:18 23:30 POC Glucose 228 H 173 H 149 H 06/21/17 18:06 POC Glucose 140 H Medical Necessity - Tobacco Use Smoking Status: Current every day smoker Tobacco Use: - - Resume cigarettes but unable to obtain as the patient is sedated Assessment/Plan Active and Suspected Problems (Last Reviewed 06/13/17 @ 14:25 by Binta Isaac) Acute respiratory failure with hypoxia and hypercapnia (Acute) Pneumococcal pneumonia (Acute) Metabolic encephalopathy (Acute) Heart failure with reduced ejection fraction (Acute) #1 combined respiratory failure secondary to acute diastolic congestive heart failure- pulmonary medicine is managing his ventilator, he is currently receiving IV Bumex per cardiology #2 acute diastolic congestive heart failure-EF 50%, cardiology is participating in his care #3 chronic obstructive pulmonary disease #4 morbid obesity #5 type 2 diabetes #6 coronary artery disease #7 obstructive sleep apnea Code Visit Inpatient E&M: 44956 Subs Hosp L2
[2017-06-22 20:00] LABS: Bedside Glucose 152 mg/dL (70-110)
[2017-06-23] VITALS (37 sets, daily range): BP systolic 91–121; BP diastolic 55–76; PULSE 57–75; RESP 15–19; TEMP 36.7–37.7; O2SAT 84–94
[2017-06-23] MEDS: Ipratropium/Albuterol Sulfate 3 ML AMPUL.NEB INHALATION ×4 (00:32→19:06)
[2017-06-23] MEDS: Propofol 10MG/Ml 1,000 MG/100 ML Bottle 5.199 MG CONT INF ×5 (00:56→20:17)
[2017-06-23 01:06] LABS: Base Excess 21 mmol/L (-2 to +2); Bicarbonate 44.7 mmol/L (22-26); Blood Gas Specimen Type ART; FI02 70; Mode A-C; O2 Delivery Device Vent; PEEP 18; PO2 58 mmHG (75-100); RR 16; SITE R Radial; SO2 90 % (95-99); Time Given 53; Total Carbon Dioxide 47 mmol/L; Vt 450; pCO2 62.9 mmHg (35-45); pH 7.46 (7.35-7.45)
[2017-06-23] MEDS: Vital AF 1.2 Cal Liquid 1,000 ML 75 ML GT ×2 (02:52→20:19)
[2017-06-23 03:26] LABS: Bedside Glucose 158 mg/dL (70-110)
[2017-06-23 04:14] LABS: Absolute Lymphocyte Count 0.88 X10^3/ul (0.83-4.51); Absolute Neutrophil Count 5.8 X10^3/uL (2.0-7.7); Basophil# 0.01 X10^3/uL; Basophil% 0.1 % (0-1); Eosinophil# 0.01 X10^3/uL; Eosinophils% 0.1 % (0-5); Hematocrit 38.4 % (40-54); Hemoglobin 11.5 g/dl (13.0-16.5); Lymphocyte # 0.88 X10^3/ul (4.0); Lymphocyte % 11.9 % (19-41); Mean Corp Hgb Conc 29.9 g/gl (32-36); Mean Corpuscular Hgb 26.6 pg (27.0-32.0); Mean Corpuscular Volume 88.7 fL (80-94); Mean Platelet Vol. 9.2 fl (6.2-12.0); Monocyte# 0.69 X10^3/uL; Monocyte% 9.3 % (0-10); Neutrophil # 5.81 X10^3/uL (2.7-7.7); Neutrophil % 78.3 % (47-70); POSITIVE COUNT NO; POSITIVE DIFFERENTIAL NO; POSITIVE MORPHOLOGY NO; Platelet Count 210 K/mm3 (150-450); RBC Distribution Width CV 16.9 % (11.6-14.6); RBC Distribution Width SD 54.4 fl (35.1-43.9); Red Blood Count 4.33 M/mm3 (4.6-6.2); White Blood Count 7.4 K/mm3 (4.4-11.0)
[2017-06-23 05:16] LABS: Anion Gap 9 (5-15); BUN 33 mg/dL (7-18); BUN/Creat Ratio 41.6 RATIO (10-20); Calcium,Total 8.2 mg/dL (8.5-10.1); Chloride 92 mmol/L (98-107); Creatinine, Serum 0.79 mg/dL (0.70-1.30); EST Glomerular Filtration Rate 106 mL/min (>60); Est Glom Filt Rate - Afr Amer 128 mL/min (>60); Estimated Creatinine Clearance 110.51 ml/min; Glucose 174 mg/dL (74-106); Magnesium 2.3 mg/dL (1.6-2.6); Phosphorus 4.6 mg/dL (2.5-4.9); Potassium 3.8 mmol/L (3.5-5.1); Sodium Level 141 mmol/L (136-145)
[2017-06-23] MEDS: 0.9% NaCl Peripheral Flush Adult/Peds IV ×4 (05:27→22:42)
[2017-06-23 05:41] LABS: Bedside Glucose 169 mg/dL (70-110)
--- NOTE | 2017-06-23 06:22 | PN_ITS ---
Subjective: Patient did well through the day yesterday. PEEP had been lowered to as low as 10, but at approximately 12:00, patient started to have desaturations. Patient is currently on 18 of PEEP. Patient was as high as 85%, but has been weaned to 60% FiO2. Patient is interactive and denies any pain at this time. Patient has been tolerating tube feeds. Bumex drip was increased overnight during desaturations and some increased urine output has been noted. General: Alert, Cooperative, No apparent distress, - - Morbidly obese. Follows commands. HEENT: Atraumatic, PERRLA, EOMI, Normocephalic, - - No scleral icterus or injection noted. Some periorbital edema appreciated. Oral: Moist Mucosa, No Gingival or Mucosal Lesions/ Ulcerations Neck: Supple, No JVD, No Nodes, Trachea Midline Lungs: No rhonchi, No wheeze, Diminished, Rales, - - Symmetric expansion. No dullness to percussion. Cardiovascular: Regular rate, Regular Rhythm, Normal S1, Normal S2, No murmurs, No rub noted, No Gallop, - - Normal sinus rhythm noted on telemetry Abdomen: Bowel Sounds Present, Soft, Non Tender, Non-Distended, Obese Extremities: No cyanosis, Clubbing, Edema - Slightly improved compared to previous Skin: - - No significant change compared to previous Musculoskeletal: No Tenderness to Palpation of Joints or Extremities Lymphatic: No Cervical, Supraclavicular, or Inguinal Adenopathy Neurological: Cranial nerves II-XII grossly intact, Neuro grossly intact, Sensory exam intact to light touch and pain Psych/Mental Status: Normal Affect, Appropriate Vital Signs Temp Pulse Resp BP Pulse Ox 36.9 C 69 16 100/61 90 06/23/17 04:00 06/23/17 06:00 06/23/17 06:00 06/23/17 06:00 06/23/17 06:00 Oxygen Delivery Method Mechanical Ventilator Weight: 165.5 kg Body Mass Index (BMI) 50.1 Intake and Output for Last 24 Hours 06/21/17 06/22/17 06/23/17 23:59 23:59 23:59 Intake Total 1613.3 / 1613.3 2671 / 2671 2032.5 / 2032.5 Output Total 3225 / 3225 3350 / 3350 3800 / 3800 Balance -1611.7 / -1611.7 -679 / -679 -1767.5 / -1767.5 Labs (Last 48 Hours) 06/21/17 06/21/17 06/21/17 11:37 14:10 18:06 WBC RBC Hgb Hct MCV MCH MCHC RDW RDW Differential Plt Count MPV Immature Gran % (Auto) Neut % (Auto) Lymph % (Auto) [place] % (Auto) Eos % (Auto) Baso % (Auto) Absolute Neuts (auto) Absolute Lymphs (auto) Total Counted Specimen Type Sample Site pH Bicarbonate Actual POC Total CO2 Base Excess O2 Saturation O2 % ABG pCO2 ABG pO2 Respiration Rate O2 Delivery Device Minute Volume Vent Mode Tidal Volume POC PEEP Blood Gas Notified Whom Blood Gas Notified Time Sodium 138 Potassium 3.9 Chloride 95 L Carbon Dioxide 37.0 H Anion Gap 6 BUN 33 H Creatinine 0.81 Estim Creat Clear Calc 107.78 Est GFR (MDRD) Af Amer 125 Est GFR (MDRD) Non-Af 103 BUN/Creatinine Ratio 40.5 H Glucose 143 H Calcium 8.3 L Phosphorus Magnesium POC Glucose 177 H 140 H 06/21/17 06/22/17 06/22/17 23:30 04:50 04:50 WBC 6.9 RBC 4.31 L Hgb 11.4 L Hct 38.0 L MCV 88.2 MCH 26.5 L MCHC 30.0 L RDW 17.0 H RDW Differential 53.7 H Plt Count 204 MPV 10.3 Immature Gran % (Auto) 0.400 Neut % (Auto) 77.6 H Lymph % (Auto) 13.4 L Mobile % (Auto) 8.6 Eos % (Auto) 0.0 Baso % (Auto) 0.0 Absolute Neuts (auto) 5.3 Absolute Lymphs (auto) 0.92 Total Counted Not Reportable Specimen Type Sample Site pH Bicarbonate Actual POC Total CO2 Base Excess O2 Saturation O2 % ABG pCO2 ABG pO2 Respiration Rate O2 Delivery Device Minute Volume Vent Mode Tidal Volume POC PEEP Blood Gas Notified Whom Blood Gas Notified Time Sodium 138 Potassium 3.9 Chloride 93 L Carbon Dioxide 36.0 H Anion Gap 9 BUN 34 H Creatinine 0.83 Estim Creat Clear Calc 105.18 Est GFR (MDRD) Af Amer 121 Est GFR (MDRD) Non-Af 100 BUN/Creatinine Ratio 40.9 H Glucose 171 H Calcium 8.3 L Phosphorus Magnesium POC Glucose 149 H 06/22/17 06/22/17 06/22/17 05:18 11:23 14:15 WBC RBC Hgb Hct MCV MCH MCHC RDW RDW Differential Plt Count MPV Immature Gran % (Auto) Neut % (Auto) Lymph % (Auto) Mobile % (Auto) Eos % (Auto) Baso % (Auto) Absolute Neuts (auto) Absolute Lymphs (auto) Total Counted Specimen Type Sample Site pH Bicarbonate Actual POC Total CO2 Base Excess O2 Saturation O2 % ABG pCO2 ABG pO2 Respiration Rate O2 Delivery Device Minute Volume Vent Mode Tidal Volume POC PEEP Blood Gas Notified Whom Blood Gas Notified Time Sodium 137 Potassium 3.7 Chloride 94 L Carbon Dioxide 38.0 H Anion Gap 5 BUN 32 H Creatinine 0.79 Estim Creat Clear Calc 110.51 Est GFR (MDRD) Af Amer 129 Est GFR (MDRD) Non-Af 107 BUN/Creatinine Ratio 40.5 H Glucose 157 H Calcium 8.4 L Phosphorus Magnesium POC Glucose 173 H 228 H 06/22/17 06/22/17 06/23/17 17:58 23:49 01:00 WBC RBC Hgb Hct MCV MCH MCHC RDW RDW Differential Plt Count MPV Immature Gran % (Auto) Neut % (Auto) Lymph % (Auto) Mobile % (Auto) Eos % (Auto) Baso % (Auto) Absolute Neuts (auto) Absolute Lymphs (auto) Total Counted Specimen Type ART Sample Site R Radial pH 7.46 H Bicarbonate Actual 44.7 H POC Total CO2 47 Base Excess 21 H O2 Saturation 90 L O2 % 70 ABG pCO2 62.9 H ABG pO2 58 L Respiration Rate 16 O2 Delivery Device Vent Minute Volume 7.00 Vent Mode A-C Tidal Volume 450 POC PEEP 18 Blood Gas Notified Whom ICU MD Blood Gas Notified Time 53 Sodium Potassium Chloride Carbon Dioxide Anion Gap BUN Creatinine Estim Creat Clear Calc Est GFR (MDRD) Af Amer Est GFR (MDRD) Non-Af BUN/Creatinine Ratio Glucose Calcium Phosphorus Magnesium POC Glucose 152 H 158 H 06/23/17 06/23/17 06/23/17 04:05 04:05 05:18 WBC 7.4 RBC 4.33 L Hgb 11.5 L Hct 38.4 L MCV 88.7 MCH 26.6 L MCHC 29.9 L RDW 16.9 H RDW Differential 54.4 H Plt Count 210 MPV 9.2 Immature Gran % (Auto) 0.300 Neut % (Auto) 78.3 H Lymph % (Auto) 11.9 L Mobile % (Auto) 9.3 Eos % (Auto) 0.1 Baso % (Auto) 0.1 Absolute Neuts (auto) 5.8 Absolute Lymphs (auto) 0.88 Total Counted Not Reportable Specimen Type Sample Site pH Bicarbonate Actual POC Total CO2 Base Excess O2 Saturation O2 % ABG pCO2 ABG pO2 Respiration Rate O2 Delivery Device Minute Volume Vent Mode Tidal Volume POC PEEP Blood Gas Notified Whom Blood Gas Notified Time Sodium 141 Potassium 3.8 Chloride 92 L Carbon Dioxide 40.0 H Anion Gap 9 BUN 33 H Creatinine 0.79 Estim Creat Clear Calc 110.51 Est GFR (MDRD) Af Amer 128 Est GFR (MDRD) Non-Af 106 BUN/Creatinine Ratio 41.6 H Glucose 174 H Calcium 8.2 L Phosphorus 4.6 Magnesium 2.3 POC Glucose 169 H Microbiology 06/20/17 17:40 Urine, Clean Catch Urine Culture - Preliminary Culture exhibits no growth. 06/21/17 04:00 Sputum, Induced/Lukens Gram Stain - Final Medical Necessity - Tobacco Use Smoking Status: Current every day smoker Tobacco Use: - - Resume cigarettes but unable to obtain as the patient is sedated Assessment/Plan Active and Suspected Problems (Last Reviewed 06/13/17 @ 14:25 by Binta Isaac) Acute respiratory failure with hypoxia and hypercapnia (Acute) Pneumococcal pneumonia (Acute) Metabolic encephalopathy (Acute) Heart failure with reduced ejection fraction (Acute) RECOMMENDATIONS: 1. Continue PEEP as indicated 2. Attempt to wean oxygen to less than 60% 3. Aggressive diuresis, continue Bumex drip 4. Wean steroids, continue bronchodilators and monitor off antibiotics 5. Nystatin powder to skin folds 6. Increase activity IMPRESSIONS: 1. Acute on chronic combined respiratory failure Clinical suspicion for acute on chronic systolic congestive heart failure as an etiology secondary to noncompliance with low-salt diet. Patient is also supposed to be on BiPAP therapy as an outpatient, but is not compliant. Low clinical suspicion for COPD/asthma exacerbation, but history is not available at this time. Antibiotics were discontinued yesterday. Will wean steroids, but likely requires bronchodilators. Aggressive diuresis. Increase PEEP as necessary to attempt to decrease FiO2 to less than 60%. Continue Bumex drip at current levels. 2. Acute on chronic diastolic congestive heart failure/coronary artery disease Repeat echocardiogram shows improvement in ejection fraction to 50%. Technically difficult echocardiogram. Cannot exclude valvular dysfunction leading to artificially improved ejection fraction. Telemetry is unimpressive at this time. We will continue with aggressive diuresis. Cardiology is following 3. Metabolic encephalopathy secondary to #1 Patient with significant CO2 retention on presentation. ABG this morning shows adequate oxygenation and ventilation. Patient is on fentanyl and propofol for vent synchrony. Will continue to monitor. This appears to be improving as patient is more directable today compared to previous. Will attempt to increase activity despite increased PEEP levels today. 4. Diabetes mellitus type 2 Continue tube feeds. Anticipate prolonged intubation secondary to need for diuretic therapy and offloading of the heart. Continue to monitor blood sugars. Appears to be well-controlled at this time. 5. Morbid obesity/history of noncompliance/hypertension/seasonal allergies Complicates care, management, recovery and prognosis. On baseline medications. TIME: 35 minutes critical care time spent addressing patient's acute on chronic respiratory failure, congestive heart failure, metabolic encephalopathy, review of all data and collaboration with care team. (5:15 AM to 6:15 AM) Code Visit 9xxxx: [id number] Critical care first hour
[2017-06-23] MEDS: Nystatin Powder 15gm Bottle 1 APPLIC TOPICAL ×2 (08:00→23:01)
[2017-06-23] MEDS: CHLORHEXIDINE GLUC 2% CLOTH 1 EACH TOWELETTE TOPICAL (08:00)
--- NOTE | 2017-06-23 09:51 | PCM.PROGNOTE ---
Patient Problems: Active and Suspected Problems (Last Reviewed 06/13/17 @ 14:25 by Binta Isaac) Acute respiratory failure with hypoxia and hypercapnia (Acute) Pneumococcal pneumonia (Acute) Metabolic encephalopathy (Acute) Heart failure with reduced ejection fraction (Acute) Subjective: Patient was seen and examined today, he remains on the ventilator. I discussed his care with critical care medicine today, his Bumex drip was increased. - Physical Exam General: Alert, No apparent distress, Well developed, - - Patient is alert but slightly sedated HEENT: Atraumatic, PERRLA, EOMI, Normocephalic Oral: Moist Mucosa Neck: Supple, No JVD, No Nuchal Rigidity, Trachea Midline, Thyroid Normal Size and Texture Lungs: Clear to auscultation, No rhonchi, No wheeze, No rales, Diminished Cardiovascular: Regular rate, Regular Rhythm, Normal S1, Normal S2, No murmurs, No Ectopic Activity, PMI Normal, No rub noted, No Gallop Abdomen: Bowel Sounds Present, Soft, Non Tender, Non-Distended, Obese, No hernias noted Extremities: No clubbing, No cyanosis, Capillary Refill Less than 3 Seconds Skin: No rashes, No breakdown Neurological: Cranial nerves II-XII grossly intact, Neuro grossly intact Psych/Mental Status: - - Patient is alert with slight sedation Vital Signs Temp Pulse Resp BP Pulse Ox 98.5 F 69 19 H 108/69 93 06/23/17 04:00 06/23/17 09:00 06/23/17 09:00 06/23/17 07:00 06/23/17 09:00 Oxygen Delivery Method Mechanical Ventilator Weight: 162.3 kg Body Mass Index (BMI) 50.1 Intake and Output for Last 24 Hours 06/21/17 06/22/17 06/23/17 23:59 23:59 23:59 Intake Total 1613.3 / 1613.3 2671 / 2671 2062.5 / 2062.5 Output Total 3225 / 3225 3350 / 3350 3800 / 3800 Balance -1611.7 / -1611.7 -679 / -679 -1737.5 / -1737.5 Microbiology Past 72 Hours 06/21/17 04:00 Gram Stain - Final Sputum, Induced/Lukens Respiratory Culture - Final 06/20/17 17:40 Urine Culture - Final Urine, Clean Catch Culture exhibits no growth. 06/20/17 18:30 Influenza Types A,B Direct FA (GAYLE) - Final Mucosa - Nasopharyngeal 06/20/17 17:40 Streptococcus pneumoniae Antigen (M - Final Urine Catheter - [place] 06/20/17 17:40 Legionella Antigen - Final Urine Catheter - [facility] Laboratory Tests Past 24 Hrs 06/22/17 06/23/17 06/23/17 14:15 01:00 04:05 WBC 7.4 RBC 4.33 L Hgb 11.5 L Hct 38.4 L MCV 88.7 MCH 26.6 L MCHC 29.9 L RDW 16.9 H RDW Differential 54.4 H Plt Count 210 MPV 9.2 Immature Gran % (Auto) 0.300 Neut % (Auto) 78.3 H Lymph % (Auto) 11.9 L Alfalfa % (Auto) 9.3 Eos % (Auto) 0.1 Baso % (Auto) 0.1 Absolute Neuts (auto) 5.8 Absolute Lymphs (auto) 0.88 Total Counted Not Reportable Specimen Type ART Sample Site R Radial pH 7.46 H Bicarbonate Actual 44.7 H POC Total CO2 47 Base Excess 21 H O2 Saturation 90 L O2 % 70 ABG pCO2 62.9 H ABG pO2 58 L Respiration Rate 16 O2 Delivery Device Vent Minute Volume 7.00 Vent Mode A-C Tidal Volume 450 POC PEEP 18 Blood Gas Notified Whom ICU MD Blood Gas Notified Time 53 Sodium 137 Potassium 3.7 Chloride 94 L Carbon Dioxide 38.0 H Anion Gap 5 BUN 32 H Creatinine 0.79 Estim Creat Clear Calc 110.51 Est GFR (MDRD) Af Amer 129 Est GFR (MDRD) Non-Af 107 BUN/Creatinine Ratio 40.5 H Glucose 157 H Calcium 8.4 L Phosphorus Magnesium 06/23/17 04:05 WBC RBC Hgb Hct MCV MCH MCHC RDW RDW Differential Plt Count MPV Immature Gran % (Auto) Neut % (Auto) Lymph % (Auto) Alfalfa % (Auto) Eos % (Auto) Baso % (Auto) Absolute Neuts (auto) Absolute Lymphs (auto) Total Counted Specimen Type Sample Site pH Bicarbonate Actual POC Total CO2 Base Excess O2 Saturation O2 % ABG pCO2 ABG pO2 Respiration Rate O2 Delivery Device Minute Volume Vent Mode Tidal Volume POC PEEP Blood Gas Notified Whom Blood Gas Notified Time Sodium 141 Potassium 3.8 Chloride 92 L Carbon Dioxide 40.0 H Anion Gap 9 BUN 33 H Creatinine 0.79 Estim Creat Clear Calc 110.51 Est GFR (MDRD) Af Amer 128 Est GFR (MDRD) Non-Af 106 BUN/Creatinine Ratio 41.6 H Glucose 174 H Calcium 8.2 L Phosphorus 4.6 Magnesium 2.3 POC Glucose 06/23/17 06/22/17 06/22/17 05:18 23:49 17:58 POC Glucose 169 H 158 H 152 H 06/22/17 11:23 POC Glucose 228 H Medical Necessity - Tobacco Use Smoking Status: Current every day smoker Tobacco Use: - - Resume cigarettes but unable to obtain as the patient is sedated Assessment/Plan Active and Suspected Problems (Last Reviewed 06/13/17 @ 14:25 by Binta Isaac) Acute respiratory failure with hypoxia and hypercapnia (Acute) Pneumococcal pneumonia (Acute) Metabolic encephalopathy (Acute) Heart failure with reduced ejection fraction (Acute) #1 combined respiratory failure secondary to acute diastolic congestive heart failure- pulmonary medicine is managing his ventilator, he is currently receiving IV Bumex per cardiology, patient remains on the vent at this time #2 acute diastolic congestive heart failure-EF 50%, cardiology is participating in his care #3 chronic obstructive pulmonary disease #4 morbid obesity #5 type 2 diabetes #6 coronary artery disease #7 obstructive sleep apnea Code Visit Inpatient E&M: 15834 Subs Hosp L2
--- NOTE | 2017-06-23 10:17 | PCM.PN.CARD ---
Subjectve: Patient still intubated, awake, nods yes and no. Denies any pain. Patient is net -4.7 L since admission, and diuresis began. Patient is still had episodes of increasing requirements of PEEP making extubation problematic. Objective: Vital Signs Temp Pulse Resp BP Pulse Ox 98.5 F 69 19 H 108/69 93 06/23/17 04:00 06/23/17 09:00 06/23/17 09:00 06/23/17 07:00 06/23/17 09:00 Oxygen Delivery Method Mechanical Ventilator Weight: 357 lb 12.964 oz Body Mass Index (BMI) 50.1 Intake and Output for Last 24 Hours 06/21/17 06/22/17 06/23/17 23:59 23:59 23:59 Intake Total 1613.3 / 1613.3 2671 / 2671 2062.5 / 2062.5 Output Total 3225 / 3225 3350 / 3350 3800 / 3800 Balance -1611.7 / -1611.7 -679 / -679 -1737.5 / -1737.5 General: Awake, Alert, Oriented x 3 HEENT: PERRL, EOMI, Sclera Non Icteric Neck: Supple, Good ROM, No Lymph Node Enlargement Lungs: Clear to auscultation Cardiovascular: Regular Rhythm, Normal S1, Normal S2, No Murmurs, No Rubs, No Gallops Vascular: No Carotid Bruits, Normal Femoral Pulses, Normal Radial Pulses, Normal Dorsalis Pedal Pulse, Normal Posterior Tibial Pulses Abdomen: Bowel Sounds Present, Soft, Non Tender, No HSM, No Organomegaly Extremities: No Cyanosis, No Clubbing, No edema Neurological: No Focal Motor or Sensory Deficit 06/22/17 14:15: Sodium 137, Potassium 3.7, Chloride 94 L, Carbon Dioxide 38.0 H, Anion Gap 5, BUN 32 H, Creatinine 0.79, Est GFR (MDRD) Af Amer 129, Est GFR (MDRD) Non-Af 107, BUN/Creatinine Ratio 40.5 H, Glucose 157 H, Calcium 8.4 L 06/23/17 01:00: pH 7.46 H, Bicarbonate Actual 44.7 H, POC Total CO2 47, Base Excess 21 H, O2 Saturation 90 L, ABG pCO2 62.9 H, ABG pO2 58 L 06/23/17 04:05: WBC 7.4, RBC 4.33 L, Hgb 11.5 L, Hct 38.4 L, MCV 88.7, MCH 26.6 L, MCHC 29.9 L, RDW 16.9 H, RDW Differential 54.4 H, Plt Count 210, MPV 9.2, Immature Gran % (Auto) 0.300, Neut % (Auto) 78.3 H, Lymph % (Auto) 11.9 L, [place] % (Auto) 9.3, Eos % (Auto) 0.1, Baso % (Auto) 0.1, Absolute Neuts (auto) 5.8, Total Counted Not Reportable 06/23/17 04:05: Sodium 141, Potassium 3.8, Chloride 92 L, Carbon Dioxide 40.0 H, Anion Gap 9, BUN 33 H, Creatinine 0.79, Est GFR (MDRD) Af Amer 128, Est GFR (MDRD) Non-Af 106, BUN/Creatinine Ratio 41.6 H, Glucose 174 H, Calcium 8.2 L, Phosphorus 4.6, Magnesium 2.3 Rhythm: EKG: ECHO: Stress Test: Cardiac Cath: PCI: CT Surgery: Holter monitor: EPS: PPM: CXR: Chest CT Scan: Medical Necessity - Tobacco Use Smoking Status: Current every day smoker Tobacco Use: - - Resume cigarettes but unable to obtain as the patient is sedated Assessment/Plan 1. Congestive heart failure: The patient's chest x-ray suggest pulmonary vascular redistribution, but there appears to be a density in the right upper lobe possibly due to aspiration or pneumonia. Patient also has evidence of anasarca with significant edema in his legs, face and hands. He was found with salty foods nearby, suggesting he has had dietary indiscretion with increased salt and water intake. Patient has known coronary artery disease, and ischemic cardiomyopathy, and is undetermined whether he was compliant with his medicines as there are no family representatives to clarify his medical condition at home. Given his presentation, it is most likely has a CHF exacerbations possibly superimposed on a pneumonia. Patient received a decent diuresis with Bumex drip, recently increased to 1 mg/h given his high PEEP requirements and attempt to diurese the patient to the point where he can be successfully extubated. Would recommend continuing Bumex drip for another 24 hours. His edema has markedly improved but still has diffuse 1+ anasarca. Would recommend 1-2 L negative balance over the next 24 hours and reassess for extubation tomorrow. At home he was on Lasix 40 mg p.o. twice daily assuming he was taking it. His echocardiogram shows his EF is approximately 50% which is consistent with his previous ejection fraction is based on recent stress testing. He has known coronary disease of his LAD requiring redo stenting for in-stent restenosis, and known ectatic circumflex disease which had no significant ischemia by stress testing in the recent past. His troponins are negative. At this point we will hold off on catheterization unless and until the patient is having difficulty weaning from the ventilator. Would recommend continuing baby aspirin and Plavix going forward. In addition recommend continuing Cozaar 50 mg p.o. daily and cutting his Coreg in half to 3.125 mg p.o. twice daily until he is through his CHF exacerbation, at which time we will increase it back to 6.25 mg twice daily assuming he is tolerating it. Would recommend maximum concentration of all medications and a 1500 cc fluid restriction. 2. Right upper lobe infiltrate: Patient appears to have a right upper lobe infiltrate by chest x-ray by my review and confirmed by radiology. Continue antibiotic therapy per protocol. 3. Hyperlipidemia: Given his coronary history and diabetes history requires LDL reduction of less than 70. Continue Lipitor. 4. Thank you very much for the opportunity to participate in the cardiac care of your patient. Discussed with Dr. Campos.
--- NOTE | 2017-06-23 10:26 | PN.CARD_ITS ---
Subjectve: Patient still intubated, awake, nods yes and no. Denies any pain. Patient is net -4.7 L since admission, and diuresis began. Patient is still had episodes of increasing requirements of PEEP making extubation problematic. Objective: Vital Signs Temp Pulse Resp BP Pulse Ox 98.5 F 69 19 H 108/69 93 06/23/17 04:00 06/23/17 09:00 06/23/17 09:00 06/23/17 07:00 06/23/17 09:00 Oxygen Delivery Method Mechanical Ventilator Weight: 357 lb 12.964 oz Body Mass Index (BMI) 50.1 Intake and Output for Last 24 Hours 06/21/17 06/22/17 06/23/17 23:59 23:59 23:59 Intake Total 1613.3 / 1613.3 2671 / 2671 2062.5 / 2062.5 Output Total 3225 / 3225 3350 / 3350 3800 / 3800 Balance -1611.7 / -1611.7 -679 / -679 -1737.5 / -1737.5 General: Awake, Alert, Oriented x 3 HEENT: PERRL, EOMI, Sclera Non Icteric Neck: Supple, Good ROM, No Lymph Node Enlargement Lungs: Clear to auscultation Cardiovascular: Regular Rhythm, Normal S1, Normal S2, No Murmurs, No Rubs, No Gallops Vascular: No Carotid Bruits, Normal Femoral Pulses, Normal Radial Pulses, Normal Dorsalis Pedal Pulse, Normal Posterior Tibial Pulses Abdomen: Bowel Sounds Present, Soft, Non Tender, No HSM, No Organomegaly Extremities: No Cyanosis, No Clubbing, No edema Neurological: No Focal Motor or Sensory Deficit 06/22/17 14:15: Sodium 137, Potassium 3.7, Chloride 94 L, Carbon Dioxide 38.0 H , Anion Gap 5, BUN 32 H, Creatinine 0.79, Est GFR (MDRD) Af Amer 129, Est GFR ( MDRD) Non-Af 107, BUN/Creatinine Ratio 40.5 H, Glucose 157 H, Calcium 8.4 L 06/23/17 01:00: pH 7.46 H, Bicarbonate Actual 44.7 H, POC Total CO2 47, Base Excess 21 H, O2 Saturation 90 L, ABG pCO2 62.9 H, ABG pO2 58 L 06/23/17 04:05: WBC 7.4, RBC 4.33 L, Hgb 11.5 L, Hct 38.4 L, MCV 88.7, MCH 26.6 L, MCHC 29.9 L, RDW 16.9 H, RDW Differential 54.4 H, Plt Count 210, MPV 9.2, Immature Gran % (Auto) 0.300, Neut % (Auto) 78.3 H, Lymph % (Auto) 11.9 L, [place] % (Auto) 9.3, Eos % (Auto) 0.1, Baso % (Auto) 0.1, Absolute Neuts (auto) 5.8, Total Counted Not Reportable 06/23/17 04:05: Sodium 141, Potassium 3.8, Chloride 92 L, Carbon Dioxide 40.0 H , Anion Gap 9, BUN 33 H, Creatinine 0.79, Est GFR (MDRD) Af Amer 128, Est GFR ( MDRD) Non-Af 106, BUN/Creatinine Ratio 41.6 H, Glucose 174 H, Calcium 8.2 L, Phosphorus 4.6, Magnesium 2.3 Rhythm: EKG: ECHO: Stress Test: Cardiac Cath: PCI: CT Surgery: Holter monitor: EPS: PPM: CXR: Chest CT Scan: Medical Necessity - Tobacco Use Smoking Status: Current every day smoker Tobacco Use: - - Resume cigarettes but unable to obtain as the patient is sedated Assessment/Plan 1. Congestive heart failure: The patient's chest x-ray suggest pulmonary vascular redistribution, but there appears to be a density in the right upper lobe possibly due to aspiration or pneumonia. Patient also has evidence of anasarca with significant edema in his legs, face and hands. He was found with salty foods nearby, suggesting he has had dietary indiscretion with increased salt and water intake. Patient has known coronary artery disease, and ischemic cardiomyopathy, and is undetermined whether he was compliant with his medicines as there are no family representatives to clarify his medical condition at home. Given his presentation, it is most likely has a CHF exacerbations possibly superimposed on a pneumonia. Patient received a decent diuresis with Bumex drip, recently increased to 1 mg/ h given his high PEEP requirements and attempt to diurese the patient to the point where he can be successfully extubated. Would recommend continuing Bumex drip for another 24 hours. His edema has markedly improved but still has diffuse 1+ anasarca. Would recommend 1-2 L negative balance over the next 24 hours and reassess for extubation tomorrow. At home he was on Lasix 40 mg p.o. twice daily assuming he was taking it. His echocardiogram shows his EF is approximately 50% which is consistent with his previous ejection fraction is based on recent stress testing. He has known coronary disease of his LAD requiring redo stenting for in-stent restenosis, and known ectatic circumflex disease which had no significant ischemia by stress testing in the recent past. His troponins are negative. At this point we will hold off on catheterization unless and until the patient is having difficulty weaning from the ventilator. Would recommend continuing baby aspirin and Plavix going forward. In addition recommend continuing Cozaar 50 mg p.o. daily and cutting his Coreg in half to 3.125 mg p.o. twice daily until he is through his CHF exacerbation, at which time we will increase it back to 6.25 mg twice daily assuming he is tolerating it. Would recommend maximum concentration of all medications and a 1500 cc fluid restriction. 2. Right upper lobe infiltrate: Patient appears to have a right upper lobe infiltrate by chest x-ray by my review and confirmed by radiology. Continue antibiotic therapy per protocol. 3. Hyperlipidemia: Given his coronary history and diabetes history requires LDL reduction of less than 70. Continue Lipitor. 4. Thank you very much for the opportunity to participate in the cardiac care of your patient. Discussed with Dr. Campos.
[2017-06-23] MEDS: Aspirin 81 MG TAB.CHEW GT (10:35)
[2017-06-23] MEDS: Chlorhexidine 15 ML PO ×2 (10:35→22:45)
[2017-06-23] MEDS: Carvedilol 3.125 MG TABLET GT ×2 (10:36→22:41)
[2017-06-23] MEDS: Docusate Sodium 100 MG/10 ML UDC GT (10:36)
[2017-06-23] MEDS: Losartan Potassium 25 MG Tablet GT (10:37)
[2017-06-23] MEDS: Enoxaparin 40 MG/0.4 ML Syringe SC (10:37)
[2017-06-23] MEDS: Polyethylene Glycol 3350 17 GM PACKET GT (10:37)
[2017-06-23] MEDS: Clopidogrel Bisulfate 75 MG Tablet GT (10:41)
[2017-06-23] MEDS: Famotidine 20 MG Tablet GT ×2 (10:41→22:41)
[2017-06-23] MEDS: Senna/Docusate Sodium 1 Tablet 2 TABLET GT (10:43)
[2017-06-23 12:36] LABS: Bedside Glucose 150 mg/dL (70-110)
[2017-06-23] MEDS: Bumetanide 25 MG in CONTAINER,EMPTY 1 BAG 4 MG CONT INF (14:38)
[2017-06-23 14:42] LABS: Anion Gap 5 (5-15); BUN 33 mg/dL (7-18); BUN/Creat Ratio 39.7 RATIO (10-20); Calcium,Total 8.2 mg/dL (8.5-10.1); Chloride 93 mmol/L (98-107); Creatinine, Serum 0.83 mg/dL (0.70-1.30); EST Glomerular Filtration Rate 101 mL/min (>60); Est Glom Filt Rate - Afr Amer 122 mL/min (>60); Estimated Creatinine Clearance 105.18 ml/min; Glucose 141 mg/dL (74-106); Potassium 3.8 mmol/L (3.5-5.1); Sodium Level 140 mmol/L (136-145)
--- NOTE | 2017-06-23 17:23 | NURSING ---
education re chronic illness deferred till acute phase pt illness resolved and pt off sedation.
[2017-06-23 18:36] LABS: Bedside Glucose 116 mg/dL (70-110)
[2017-06-23 23:10] LABS: Bedside Glucose 130 mg/dL (70-110)
[2017-06-24] VITALS (40 sets, daily range): BP systolic 104–131; BP diastolic 61–83; PULSE 62–78; RESP 14–19; TEMP 36.6–37.3; O2SAT 87–96
[2017-06-24] MEDS: Propofol 10MG/Ml 1,000 MG/100 ML Bottle 5.199 MG CONT INF ×6 (00:01→23:32)
[2017-06-24] MEDS: Ipratropium/Albuterol Sulfate 3 ML AMPUL.NEB INHALATION ×4 (00:55→18:51)
[2017-06-24 04:57] LABS: Absolute Lymphocyte Count 1.05 X10^3/ul (0.83-4.51); Absolute Neutrophil Count 6.6 X10^3/uL (2.0-7.7); Eosinophil# 0.01 X10^3/uL; Eosinophils% 0.1 % (0-5); Hematocrit 42.4 % (40-54); Hemoglobin 12.3 g/dl (13.0-16.5); Lymphocyte # 1.05 X10^3/ul (4.0); Lymphocyte % 12.7 % (19-41); Mean Corpuscular Hgb 25.6 pg (27.0-32.0); Mean Corpuscular Volume 88.1 fL (80-94); Mean Platelet Vol. 9.8 fl (6.2-12.0); Monocyte# 0.67 X10^3/uL; Monocyte% 8.1 % (0-10); Neutrophil # 6.55 X10^3/uL (2.7-7.7); Neutrophil % 78.9 % (47-70); Platelet Count 195 K/mm3 (150-450); RBC Distribution Width CV 16.5 % (11.6-14.6); RBC Distribution Width SD 53.5 fl (35.1-43.9); Red Blood Count 4.81 M/mm3 (4.6-6.2); White Blood Count 8.3 K/mm3 (4.4-11.0)
[2017-06-24 04:58] LABS: POSITIVE COUNT NO; POSITIVE DIFFERENTIAL NO; POSITIVE MORPHOLOGY NO
[2017-06-24 05:07] LABS: Anion Gap 6 (5-15); BUN 35 mg/dL (7-18); BUN/Creat Ratio 42.5 RATIO (10-20); Calcium,Total 8.5 mg/dL (8.5-10.1); Chloride 93 mmol/L (98-107); Creatinine, Serum 0.82 mg/dL (0.70-1.30); EST Glomerular Filtration Rate 102 mL/min (>60); Est Glom Filt Rate - Afr Amer 123 mL/min (>60); Estimated Creatinine Clearance 106.46 ml/min; Glucose 178 mg/dL (74-106); Magnesium 2.3 mg/dL (1.6-2.6); Phosphorus 4.1 mg/dL (2.5-4.9); Potassium 3.8 mmol/L (3.5-5.1); Sodium Level 142 mmol/L (136-145)
--- NOTE | 2017-06-24 06:37 | PN_ITS ---
Subjective: Patient did well overnight. Patient is on spontaneous awakening trial, but spontaneous breathing trial was not completed secondary to increased levels of PEEP. Patient is diuresing well. Patient tolerating tube feeds at goal. Nursing is reporting increased liquid bowel movements overnight. No fever or abdominal pain is reported. General: Alert, Cooperative, No apparent distress, - - Good vent synchrony. Appears older than stated age. HEENT: Atraumatic, PERRLA, EOMI, Normocephalic, - - No scleral icterus or injection noted. Oral: Moist Mucosa, No Gingival or Mucosal Lesions/ Ulcerations Neck: Supple, No JVD, No Nodes, Trachea Midline Lungs: No rhonchi, No wheeze, No rales, Diminished, - - Symmetric expansion. No dullness to percussion anteriorly. Cardiovascular: Regular rate, Regular Rhythm, Normal S1, Normal S2, No murmurs, No rub noted, No Gallop Abdomen: Bowel Sounds Present, Soft, Non Tender, Non-Distended, Obese Extremities: No cyanosis, Capillary Refill Less than 3 Seconds, Edema - Continues to improve Skin: - - No significant change compared to previous Musculoskeletal: No Tenderness to Palpation of Joints or Extremities, No Muscle Wasting Lymphatic: No Cervical, Supraclavicular, or Inguinal Adenopathy Neurological: Cranial nerves II-XII grossly intact, Neuro grossly intact, Motor Exam 5/5 strength throughout Psych/Mental Status: Normal Affect, Appropriate Vital Signs Temp Pulse Resp BP Pulse Ox 37.3 C H 65 16 122/75 H 90 06/24/17 04:00 06/24/17 06:00 06/24/17 06:00 06/24/17 06:00 06/24/17 06:00 Oxygen Delivery Method Mechanical Ventilator Weight: 154.6 kg Body Mass Index (BMI) 50.1 Intake and Output for Last 24 Hours 06/22/17 06/23/17 06/24/17 23:59 23:59 23:59 Intake Total 2671 / 2671 4344.5 / 4344.5 1310.3 / 1310.3 Output Total 3350 / 3350 8400 / 8400 3750 / 3750 Balance -679 / -679 -4055.5 / -4055.5 -2439.7 / -2439.7 Labs (Last 48 Hours) 06/22/17 06/22/17 06/22/17 11:23 14:15 17:58 WBC RBC Hgb Hct MCV MCH MCHC RDW RDW Differential Plt Count MPV Immature Gran % (Auto) Neut % (Auto) Lymph % (Auto) [place] % (Auto) Eos % (Auto) Baso % (Auto) Absolute Neuts (auto) Absolute Lymphs (auto) Total Counted Specimen Type Sample Site pH Bicarbonate Actual POC Total CO2 Base Excess O2 Saturation O2 % ABG pCO2 ABG pO2 Respiration Rate O2 Delivery Device Minute Volume Vent Mode Tidal Volume POC PEEP Blood Gas Notified Whom Blood Gas Notified Time Sodium 137 Potassium 3.7 Chloride 94 L Carbon Dioxide 38.0 H Anion Gap 5 BUN 32 H Creatinine 0.79 Estim Creat Clear Calc 110.51 Est GFR (MDRD) Af Amer 129 Est GFR (MDRD) Non-Af 107 BUN/Creatinine Ratio 40.5 H Glucose 157 H Calcium 8.4 L Phosphorus Magnesium POC Glucose 228 H 152 H 06/22/17 06/23/17 06/23/17 23:49 01:00 04:05 WBC 7.4 RBC 4.33 L Hgb 11.5 L Hct 38.4 L MCV 88.7 MCH 26.6 L MCHC 29.9 L RDW 16.9 H RDW Differential 54.4 H Plt Count 210 MPV 9.2 Immature Gran % (Auto) 0.300 Neut % (Auto) 78.3 H Lymph % (Auto) 11.9 L [place] % (Auto) 9.3 Eos % (Auto) 0.1 Baso % (Auto) 0.1 Absolute Neuts (auto) 5.8 Absolute Lymphs (auto) 0.88 Total Counted Not Reportable Specimen Type ART Sample Site R Radial pH 7.46 H Bicarbonate Actual 44.7 H POC Total CO2 47 Base Excess 21 H O2 Saturation 90 L O2 % 70 ABG pCO2 62.9 H ABG pO2 58 L Respiration Rate 16 O2 Delivery Device Vent Minute Volume 7.00 Vent Mode A-C Tidal Volume 450 POC PEEP 18 Blood Gas Notified Whom ICU MD Blood Gas Notified Time 53 Sodium Potassium Chloride Carbon Dioxide Anion Gap BUN Creatinine Estim Creat Clear Calc Est GFR (MDRD) Af Amer Est GFR (MDRD) Non-Af BUN/Creatinine Ratio Glucose Calcium Phosphorus Magnesium POC Glucose 158 H 06/23/17 06/23/17 06/23/17 04:05 05:18 12:23 WBC RBC Hgb Hct MCV MCH MCHC RDW RDW Differential Plt Count MPV Immature Gran % (Auto) Neut % (Auto) Lymph % (Auto) [place] % (Auto) Eos % (Auto) Baso % (Auto) Absolute Neuts (auto) Absolute Lymphs (auto) Total Counted Specimen Type Sample Site pH Bicarbonate Actual POC Total CO2 Base Excess O2 Saturation O2 % ABG pCO2 ABG pO2 Respiration Rate O2 Delivery Device Minute Volume Vent Mode Tidal Volume POC PEEP Blood Gas Notified Whom Blood Gas Notified Time Sodium 141 Potassium 3.8 Chloride 92 L Carbon Dioxide 40.0 H Anion Gap 9 BUN 33 H Creatinine 0.79 Estim Creat Clear Calc 110.51 Est GFR (MDRD) Af Amer 128 Est GFR (MDRD) Non-Af 106 BUN/Creatinine Ratio 41.6 H Glucose 174 H Calcium 8.2 L Phosphorus 4.6 Magnesium 2.3 POC Glucose 169 H 150 H 06/23/17 06/23/17 06/23/17 14:15 18:30 23:00 WBC RBC Hgb Hct MCV MCH MCHC RDW RDW Differential Plt Count MPV Immature Gran % (Auto) Neut % (Auto) Lymph % (Auto) [place] % (Auto) Eos % (Auto) Baso % (Auto) Absolute Neuts (auto) Absolute Lymphs (auto) Total Counted Specimen Type Sample Site pH Bicarbonate Actual POC Total CO2 Base Excess O2 Saturation O2 % ABG pCO2 ABG pO2 Respiration Rate O2 Delivery Device Minute Volume Vent Mode Tidal Volume POC PEEP Blood Gas Notified Whom Blood Gas Notified Time Sodium 140 Potassium 3.8 Chloride 93 L Carbon Dioxide 42.0 H Anion Gap 5 BUN 33 H Creatinine 0.83 Estim Creat Clear Calc 105.18 Est GFR (MDRD) Af Amer 122 Est GFR (MDRD) Non-Af 101 BUN/Creatinine Ratio 39.7 H Glucose 141 H Calcium 8.2 L Phosphorus Magnesium POC Glucose 116 H 130 H 06/24/17 06/24/17 04:30 04:30 WBC 8.3 RBC 4.81 Hgb 12.3 L Hct 42.4 MCV 88.1 MCH 25.6 L MCHC 29.0 L RDW 16.5 H RDW Differential 53.5 H Plt Count 195 MPV 9.8 Immature Gran % (Auto) 0.200 Neut % (Auto) 78.9 H Lymph % (Auto) 12.7 L [place] % (Auto) 8.1 Eos % (Auto) 0.1 Baso % (Auto) 0.0 Absolute Neuts (auto) 6.6 Absolute Lymphs (auto) 1.05 Total Counted Not Reportable Specimen Type Sample Site pH Bicarbonate Actual POC Total CO2 Base Excess O2 Saturation O2 % ABG pCO2 ABG pO2 Respiration Rate O2 Delivery Device Minute Volume Vent Mode Tidal Volume POC PEEP Blood Gas Notified Whom Blood Gas Notified Time Sodium 142 Potassium 3.8 Chloride 93 L Carbon Dioxide 43.0 H Anion Gap 6 BUN 35 H Creatinine 0.82 Estim Creat Clear Calc 106.46 Est GFR (MDRD) Af Amer 123 Est GFR (MDRD) Non-Af 102 BUN/Creatinine Ratio 42.5 H Glucose 178 H Calcium 8.5 Phosphorus 4.1 Magnesium 2.3 POC Glucose Microbiology 06/21/17 04:00 Sputum, Induced/[place] Gram Stain - Final 06/21/17 04:00 Sputum, Induced/[place] Respiratory Culture - Final 06/20/17 17:40 Urine, Clean Catch Urine Culture - Final Culture exhibits no growth. Medical Necessity - Tobacco Use Smoking Status: Current every day smoker Tobacco Use: - - Resume cigarettes but unable to obtain as the patient is sedated Assessment/Plan Active and Suspected Problems (Last Reviewed 06/13/17 @ 14:25 by Binta Isaac) Acute respiratory failure with hypoxia and hypercapnia (Acute) Pneumococcal pneumonia (Acute) Metabolic encephalopathy (Acute) Heart failure with reduced ejection fraction (Acute) RECOMMENDATIONS: 1. Continue to wean PEEP as indicated 2. Attempt to wean oxygen to less than 60% 3. Aggressive diuresis, continue Bumex drip 4. Discontinue steroids, continue bronchodilators and monitor off antibiotics 5. Nystatin powder to skin folds 6. Increase activity IMPRESSIONS: 1. Acute on chronic combined respiratory failure Clinical suspicion for acute on chronic systolic congestive heart failure as an etiology secondary to noncompliance with low-salt diet. Patient is also supposed to be on BiPAP therapy as an outpatient, but is not compliant. Low clinical suspicion for COPD/asthma exacerbation, but history is not available at this time. Antibiotics were discontinued yesterday. Will continue steroids , but likely requires bronchodilators. Aggressive diuresis. Decrease PEEP as able. Continue Bumex drip at current levels. 2. Acute on chronic diastolic congestive heart failure/coronary artery disease Repeat echocardiogram shows improvement in ejection fraction to 50%. Technically difficult echocardiogram. Cannot exclude valvular dysfunction leading to artificially improved ejection fraction. Telemetry is unimpressive at this time. We will continue with aggressive diuresis. Cardiology is following. Continue to check electrolytes twice daily given level of diuresis. 3. Metabolic encephalopathy secondary to #1 Patient with significant CO2 retention on presentation. ABG this morning shows adequate oxygenation and ventilation. Patient is on fentanyl and propofol for vent synchrony. Will continue to monitor. This appears to be improving as patient is more directable today compared to previous. Will attempt to increase activity despite increased PEEP levels today. 4. Diabetes mellitus type 2 Continue tube feeds. Anticipate prolonged intubation secondary to need for diuretic therapy and offloading of the heart. Continue to monitor blood sugars. Appears to be well-controlled at this time. 5. Morbid obesity/history of noncompliance/hypertension/seasonal allergies Complicates care, management, recovery and prognosis. On baseline medications. TIME: 34 minutes critical care time spent addressing patient's acute on chronic respiratory failure, congestive heart failure, metabolic encephalopathy, review of all data and collaboration with care team. (5:30 AM to 6:30 AM) Code Visit 9xxxx: [id number] Critical care first hour
[2017-06-24] MEDS: CHLORHEXIDINE GLUC 2% CLOTH 1 EACH TOWELETTE TOPICAL (06:38)
[2017-06-24 06:45] LABS: Bedside Glucose 158 mg/dL (70-110)
--- NOTE | 2017-06-24 09:26 | CASEMGMT ---
Pt remains intubated at this time, SW will continue to follow and will be available to assist w/discharge planning when appropriate. BUDDY Cowart, HIDES INSPECTOR
--- NOTE | 2017-06-24 09:55 | PCM.PN.CARD ---
Subjectve: Patient continues to be intubated, awake and alert, answers questions by shaking his head yes or no. Denies any chest pain. Patient has improved anasarca, but still has significant edema in his legs, abdomen and hands. Patient had a negative 4 L of fluid out over 24 hours and 2 L of fluid out just today. Telemetry negative. Objective: Vital Signs Temp Pulse Resp BP Pulse Ox 99.2 F H 64 16 119/74 91 06/24/17 04:00 06/24/17 08:00 06/24/17 08:00 06/24/17 08:00 06/24/17 08:00 Oxygen Delivery Method Mechanical Ventilator Weight: 340 lb 13.354 oz Body Mass Index (BMI) 50.1 Intake and Output for Last 24 Hours 06/22/17 06/23/17 06/24/17 23:59 23:59 23:59 Intake Total 2671 / 2671 4344.5 / 4344.5 1310.3 / 1310.3 Output Total 3350 / 3350 8400 / 8400 3750 / 3750 Balance -679 / -679 -4055.5 / -4055.5 -2439.7 / -2439.7 General: Awake, Alert, Oriented x 3 HEENT: PERRL, EOMI, Sclera Non Icteric Neck: Supple, Good ROM, No Lymph Node Enlargement Lungs: Clear to auscultation Cardiovascular: Regular Rhythm, Normal S1, Normal S2, No Murmurs, No Rubs, No Gallops Vascular: No Carotid Bruits, Normal Femoral Pulses, Normal Radial Pulses, Normal Dorsalis Pedal Pulse, Normal Posterior Tibial Pulses Abdomen: Bowel Sounds Present, Soft, Non Tender, No HSM, No Organomegaly Extremities: No Cyanosis, No Clubbing, No edema Neurological: No Focal Motor or Sensory Deficit 06/23/17 14:15: Sodium 140, Potassium 3.8, Chloride 93 L, Carbon Dioxide 42.0 H, Anion Gap 5, BUN 33 H, Creatinine 0.83, Est GFR (MDRD) Af Amer 122, Est GFR (MDRD) Non-Af 101, BUN/Creatinine Ratio 39.7 H, Glucose 141 H, Calcium 8.2 L 06/24/17 04:30: WBC 8.3, RBC 4.81, Hgb 12.3 L, Hct 42.4, MCV 88.1, MCH 25.6 L, MCHC 29.0 L, RDW 16.5 H, RDW Differential 53.5 H, Plt Count 195, MPV 9.8, Immature Gran % (Auto) 0.200, Neut % (Auto) 78.9 H, Lymph % (Auto) 12.7 L, [place] % (Auto) 8.1, Eos % (Auto) 0.1, Baso % (Auto) 0.0, Absolute Neuts (auto) 6.6, Total Counted Not Reportable 06/24/17 04:30: Sodium 142, Potassium 3.8, Chloride 93 L, Carbon Dioxide 43.0 H, Anion Gap 6, BUN 35 H, Creatinine 0.82, Est GFR (MDRD) Af Amer 123, Est GFR (MDRD) Non-Af 102, BUN/Creatinine Ratio 42.5 H, Glucose 178 H, Calcium 8.5, Phosphorus 4.1, Magnesium 2.3 Rhythm: EKG: ECHO: Stress Test: Cardiac Cath: PCI: CT Surgery: Holter monitor: EPS: PPM: CXR: Chest CT Scan: Medical Necessity - Tobacco Use Smoking Status: Current every day smoker Tobacco Use: - - Resume cigarettes but unable to obtain as the patient is sedated Assessment/Plan 1. Congestive heart failure: The patient's chest x-ray suggest pulmonary vascular redistribution, but there appears to be a density in the right upper lobe possibly due to aspiration or pneumonia. Patient also has evidence of anasarca with significant edema in his legs, face and hands. He was found with salty foods nearby, suggesting he has had dietary indiscretion with increased salt and water intake. Patient has known coronary artery disease, and ischemic cardiomyopathy, and is undetermined whether he was compliant with his medicines as there are no family representatives to clarify his medical condition at home. Given his presentation, it is most likely has a CHF exacerbations possibly superimposed on a pneumonia. Patient received a decent diuresis with Bumex drip, recently increased to 1 mg/h given his high PEEP requirements of 12 and attempt to diurese the patient to the point where he can be successfully extubated. Would recommend continuing Bumex drip for another 24 hours at least, and perhaps longer as he appears to have at least another 10 L of fluid to diurese if not more.. His edema has markedly improved but still has diffuse 1+ anasarca. Would recommend 2 L negative balance over the next 24 hours and reassess for extubation tomorrow. At home he was on Lasix 40 mg p.o. twice daily assuming he was taking it. His echocardiogram shows his EF is approximately 50% which is consistent with his previous ejection fraction is based on recent stress testing. He has known coronary disease of his LAD requiring redo stenting for in-stent restenosis, and known ectatic circumflex disease which had no significant ischemia by stress testing in the recent past. His troponins are negative. At this point we will hold off on catheterization unless and until the patient is having difficulty weaning from the ventilator. Would recommend continuing baby aspirin and Plavix going forward. In addition recommend continuing Cozaar 50 mg p.o. daily and cutting his Coreg in half to 3.125 mg p.o. twice daily until he is through his CHF exacerbation, at which time we will increase it back to 6.25 mg twice daily assuming he is tolerating it. Would recommend maximum concentration of all medications and a 1500 cc fluid restriction. 2. Right upper lobe infiltrate: Patient appears to have a right upper lobe infiltrate by chest x-ray by my review and confirmed by radiology. Continue antibiotic therapy per protocol. 3. Hyperlipidemia: Given his coronary history and diabetes history requires LDL reduction of less than 70. Continue Lipitor. 4. Thank you very much for the opportunity to participate in the cardiac care of your patient. Discussed with Dr. Campos. Code Visit Inpatient E&M: 38999 Subs Hosp L2
--- NOTE | 2017-06-24 09:58 | PN.CARD_ITS ---
Subjectve: Patient continues to be intubated, awake and alert, answers questions by shaking his head yes or no. Denies any chest pain. Patient has improved anasarca, but still has significant edema in his legs, abdomen and hands. Patient had a negative 4 L of fluid out over 24 hours and 2 L of fluid out just today. Telemetry negative. Objective: Vital Signs Temp Pulse Resp BP Pulse Ox 99.2 F H 64 16 119/74 91 06/24/17 04:00 06/24/17 08:00 06/24/17 08:00 06/24/17 08:00 06/24/17 08:00 Oxygen Delivery Method Mechanical Ventilator Weight: 340 lb 13.354 oz Body Mass Index (BMI) 50.1 Intake and Output for Last 24 Hours 06/22/17 06/23/17 06/24/17 23:59 23:59 23:59 Intake Total 2671 / 2671 4344.5 / 4344.5 1310.3 / 1310.3 Output Total 3350 / 3350 8400 / 8400 3750 / 3750 Balance -679 / -679 -4055.5 / -4055.5 -2439.7 / -2439.7 General: Awake, Alert, Oriented x 3 HEENT: PERRL, EOMI, Sclera Non Icteric Neck: Supple, Good ROM, No Lymph Node Enlargement Lungs: Clear to auscultation Cardiovascular: Regular Rhythm, Normal S1, Normal S2, No Murmurs, No Rubs, No Gallops Vascular: No Carotid Bruits, Normal Femoral Pulses, Normal Radial Pulses, Normal Dorsalis Pedal Pulse, Normal Posterior Tibial Pulses Abdomen: Bowel Sounds Present, Soft, Non Tender, No HSM, No Organomegaly Extremities: No Cyanosis, No Clubbing, No edema Neurological: No Focal Motor or Sensory Deficit 06/23/17 14:15: Sodium 140, Potassium 3.8, Chloride 93 L, Carbon Dioxide 42.0 H , Anion Gap 5, BUN 33 H, Creatinine 0.83, Est GFR (MDRD) Af Amer 122, Est GFR ( MDRD) Non-Af 101, BUN/Creatinine Ratio 39.7 H, Glucose 141 H, Calcium 8.2 L 06/24/17 04:30: WBC 8.3, RBC 4.81, Hgb 12.3 L, Hct 42.4, MCV 88.1, MCH 25.6 L, MCHC 29.0 L, RDW 16.5 H, RDW Differential 53.5 H, Plt Count 195, MPV 9.8, Immature Gran % (Auto) 0.200, Neut % (Auto) 78.9 H, Lymph % (Auto) 12.7 L, [place] % (Auto) 8.1, Eos % (Auto) 0.1, Baso % (Auto) 0.0, Absolute Neuts (auto) 6.6, Total Counted Not Reportable 06/24/17 04:30: Sodium 142, Potassium 3.8, Chloride 93 L, Carbon Dioxide 43.0 H , Anion Gap 6, BUN 35 H, Creatinine 0.82, Est GFR (MDRD) Af Amer 123, Est GFR ( MDRD) Non-Af 102, BUN/Creatinine Ratio 42.5 H, Glucose 178 H, Calcium 8.5, Phosphorus 4.1, Magnesium 2.3 Rhythm: EKG: ECHO: Stress Test: Cardiac Cath: PCI: CT Surgery: Holter monitor: EPS: PPM: CXR: Chest CT Scan: Medical Necessity - Tobacco Use Smoking Status: Current every day smoker Tobacco Use: - - Resume cigarettes but unable to obtain as the patient is sedated Assessment/Plan 1. Congestive heart failure: The patient's chest x-ray suggest pulmonary vascular redistribution, but there appears to be a density in the right upper lobe possibly due to aspiration or pneumonia. Patient also has evidence of anasarca with significant edema in his legs, face and hands. He was found with salty foods nearby, suggesting he has had dietary indiscretion with increased salt and water intake. Patient has known coronary artery disease, and ischemic cardiomyopathy, and is undetermined whether he was compliant with his medicines as there are no family representatives to clarify his medical condition at home. Given his presentation, it is most likely has a CHF exacerbations possibly superimposed on a pneumonia. Patient received a decent diuresis with Bumex drip, recently increased to 1 mg/ h given his high PEEP requirements of 12 and attempt to diurese the patient to the point where he can be successfully extubated. Would recommend continuing Bumex drip for another 24 hours at least, and perhaps longer as he appears to have at least another 10 L of fluid to diurese if not more.. His edema has markedly improved but still has diffuse 1+ anasarca. Would recommend 2 L negative balance over the next 24 hours and reassess for extubation tomorrow. At home he was on Lasix 40 mg p.o. twice daily assuming he was taking it. His echocardiogram shows his EF is approximately 50% which is consistent with his previous ejection fraction is based on recent stress testing. He has known coronary disease of his LAD requiring redo stenting for in-stent restenosis, and known ectatic circumflex disease which had no significant ischemia by stress testing in the recent past. His troponins are negative. At this point we will hold off on catheterization unless and until the patient is having difficulty weaning from the ventilator. Would recommend continuing baby aspirin and Plavix going forward. In addition recommend continuing Cozaar 50 mg p.o. daily and cutting his Coreg in half to 3.125 mg p.o. twice daily until he is through his CHF exacerbation, at which time we will increase it back to 6.25 mg twice daily assuming he is tolerating it. Would recommend maximum concentration of all medications and a 1500 cc fluid restriction. 2. Right upper lobe infiltrate: Patient appears to have a right upper lobe infiltrate by chest x-ray by my review and confirmed by radiology. Continue antibiotic therapy per protocol. 3. Hyperlipidemia: Given his coronary history and diabetes history requires LDL reduction of less than 70. Continue Lipitor. 4. Thank you very much for the opportunity to participate in the cardiac care of your patient. Discussed with Dr. Campos. Code Visit Inpatient E&M: 31943 Subs Hosp L2
[2017-06-24] MEDS: Vital AF 1.2 Cal Liquid 1,000 ML 75 ML GT (11:03)
[2017-06-24] MEDS: Carvedilol 3.125 MG TABLET GT ×2 (11:05→22:10)
[2017-06-24] MEDS: Chlorhexidine 15 ML PO ×2 (11:05→22:11)
[2017-06-24] MEDS: Aspirin 81 MG TAB.CHEW GT (11:05)
[2017-06-24] MEDS: Enoxaparin 40 MG/0.4 ML Syringe SC (11:06)
[2017-06-24] MEDS: Nystatin Powder 15gm Bottle 1 APPLIC TOPICAL ×2 (11:06→22:10)
[2017-06-24] MEDS: Losartan Potassium 25 MG Tablet GT (11:06)
[2017-06-24] MEDS: Famotidine 20 MG Tablet GT ×2 (11:07→22:10)
[2017-06-24] MEDS: Clopidogrel Bisulfate 75 MG Tablet GT (11:07)
[2017-06-24 13:36] LABS: Bedside Glucose 113 mg/dL (70-110)
--- NOTE | 2017-06-24 15:43 | PCM.PROGNOTE ---
Patient Problems: Active and Suspected Problems (Last Reviewed 06/13/17 @ 14:25 by Binta Isaac) Acute respiratory failure with hypoxia and hypercapnia (Acute) Pneumococcal pneumonia (Acute) Metabolic encephalopathy (Acute) Heart failure with reduced ejection fraction (Acute) Subjective: Patient was seen and examined today, he remains on the ventilator, I talked with critical care about his medical care. Patient continues to be maintained on a Bumex drip and is diuresing well. - Physical Exam General: Alert, Oriented x3, Cooperative, No apparent distress, Well developed, Well nourished HEENT: Atraumatic, PERRLA, EOMI, Normocephalic Oral: Moist Mucosa Neck: Supple, No JVD, Trachea Midline, Thyroid Normal Size and Texture Lungs: No rhonchi, No rales, Diminished, Wheezes - Scattered expiratory wheezes are noted bilaterally Cardiovascular: Regular rate, Regular Rhythm, Normal S1, Normal S2, No murmurs, No Ectopic Activity, PMI Normal, No rub noted, No Gallop Abdomen: Bowel Sounds Present, Soft, Non Tender, Non-Distended, No hernias noted Extremities: No clubbing, No cyanosis, Capillary Refill Less than 3 Seconds, Edema - Generalized edema is noted over the patient's trunk and legs Skin: No rashes, No breakdown Musculoskeletal: No Tenderness to Palpation of Joints or Extremities Neurological: Cranial nerves II-XII grossly intact, Neuro grossly intact, Sensory exam intact to light touch and pain, Coordination normal Psych/Mental Status: - - Patient is alert and follows directions, he is lethargic Vital Signs Temp Pulse Resp BP Pulse Ox 97.9 F 64 16 109/68 90 06/24/17 12:00 06/24/17 13:06 06/24/17 13:06 06/24/17 12:00 06/24/17 13:06 Oxygen Delivery Method Mechanical Ventilator Weight: 154.6 kg Body Mass Index (BMI) 50.1 Intake and Output for Last 24 Hours 06/22/17 06/23/17 06/24/17 23:59 23:59 23:59 Intake Total 2671 / 2671 4344.5 / 4344.5 1870.3 / 1870.3 Output Total 3350 / 3350 8400 / 8400 6350 / 6350 Balance -679 / -679 -4055.5 / -4055.5 -4479.7 / -4479.7 Microbiology Past 72 Hours 06/21/17 04:00 Gram Stain - Final Sputum, Induced/Lukens Respiratory Culture - Final 06/20/17 17:40 Urine Culture - Final Urine, Clean Catch Culture exhibits no growth. Laboratory Tests Past 24 Hrs 06/24/17 06/24/17 04:30 04:30 WBC 8.3 RBC 4.81 Hgb 12.3 L Hct 42.4 MCV 88.1 MCH 25.6 L MCHC 29.0 L RDW 16.5 H RDW Differential 53.5 H Plt Count 195 MPV 9.8 Immature Gran % (Auto) 0.200 Neut % (Auto) 78.9 H Lymph % (Auto) 12.7 L [place] % (Auto) 8.1 Eos % (Auto) 0.1 Baso % (Auto) 0.0 Absolute Neuts (auto) 6.6 Absolute Lymphs (auto) 1.05 Total Counted Not Reportable Sodium 142 Potassium 3.8 Chloride 93 L Carbon Dioxide 43.0 H Anion Gap 6 BUN 35 H Creatinine 0.82 Estim Creat Clear Calc 106.46 Est GFR (MDRD) Af Amer 123 Est GFR (MDRD) Non-Af 102 BUN/Creatinine Ratio 42.5 H Glucose 178 H Calcium 8.5 Phosphorus 4.1 Magnesium 2.3 POC Glucose 06/24/17 06/24/17 06/23/17 11:45 06:35 23:00 POC Glucose 113 H 158 H 130 H 06/23/17 18:30 POC Glucose 116 H Medical Necessity - Tobacco Use Smoking Status: Current every day smoker Tobacco Use: - - Resume cigarettes but unable to obtain as the patient is sedated Assessment/Plan Active and Suspected Problems (Last Reviewed 06/13/17 @ 14:25 by Binta Isaac) Acute respiratory failure with hypoxia and hypercapnia (Acute) Pneumococcal pneumonia (Acute) Metabolic encephalopathy (Acute) Heart failure with reduced ejection fraction (Acute) #1 combined respiratory failure secondary to acute diastolic congestive heart failure- pulmonary medicine is managing his ventilator, he is currently receiving IV Bumex per cardiology, patient remains on the vent at this time, patient is diuresing well at this time #2 acute diastolic congestive heart failure-EF 50%, cardiology is participating in his care #3 chronic obstructive pulmonary disease #4 morbid obesity #5 type 2 diabetes #6 coronary artery disease #7 obstructive sleep apnea Code Visit Inpatient E&M: 40804 Subs Hosp L2
[2017-06-24 16:28] LABS: BUN 34 mg/dL (7-18); BUN/Creat Ratio 41.6 RATIO (10-20); Calcium,Total 8.7 mg/dL (8.5-10.1); Carbon Dioxide > 45.0 mmol/L (21.0-32.0); Chloride 93 mmol/L (98-107); Creatinine, Serum 0.82 mg/dL (0.70-1.30); EST Glomerular Filtration Rate 103 mL/min (>60); Est Glom Filt Rate - Afr Amer 124 mL/min (>60); Estimated Creatinine Clearance 106.46 ml/min; Glucose 100 mg/dL (74-106); Magnesium 2.4 mg/dL (1.6-2.6); Phosphorus 4.2 mg/dL (2.5-4.9); Potassium 3.7 mmol/L (3.5-5.1); Sodium Level 142 mmol/L (136-145)
[2017-06-24 18:01] LABS: Bedside Glucose 130 mg/dL (70-110)
[2017-06-24] MEDS: Bumetanide 25 MG in CONTAINER,EMPTY 1 BAG 4 MG CONT INF (18:26)
[2017-06-25] VITALS (36 sets, daily range): BP systolic 98–142; BP diastolic 60–91; PULSE 63–99; RESP 11–21; TEMP 36.6–37.3; O2SAT 87–95
[2017-06-25 00:06] LABS: Bedside Glucose 155 mg/dL (70-110)
[2017-06-25] MEDS: Ipratropium/Albuterol Sulfate 3 ML AMPUL.NEB INHALATION ×4 (02:38→19:30)
[2017-06-25] MEDS: Vital AF 1.2 Cal Liquid 1,000 ML 75 ML GT ×2 (02:39→20:58)
--- NOTE | 2017-06-25 03:30 | RAD_ITS ---
STUDY: X-RAY CHEST REASON FOR EXAM: Male, 57 years old. SHORTNESS OF BREATH/DYSPNEA There is a TECHNIQUE: Single AP portable view of the chest. COMPARISON: 06/20/2017 FINDINGS: Patient is intubated. The tip of endotracheal tube is at the aortic arch. Enteric tube is present with the distal and probably within the distal stomach. The lungs are underexpanded. There is heterogeneous left upper lobe and lower lobe airspace consolidation and/or atelectasis. There is a focal opacity in the right upper lobe that may represent airspace disease has improved since the previous study. There is no demonstrated pleural abnormality. There is mild cardiac enlargement. Normal mediastinum and marta. Normal visualized pulmonary arteries. There is atherosclerotic calcification of the aortic arch with tortuosity. There is multilevel thoracic spondylosis. Normal visualized ribs, clavicles, and shoulders. There is no demonstrated abnormality of the visualized soft tissue structures of the upper abdomen. RAD/Chest 1 View (Portable) IMPRESSION: 1. Enteric tube is in appropriate position. 2. Improved aeration of the right lung since the previous study. Persistent airspace disease in the left lung may represent pneumonia. Electronically Signed: Laura uDarte MD at 7:56 EDT Tel , Service support ,
[2017-06-25 03:53] LABS: Absolute Lymphocyte Count 1.65 X10^3/ul (0.83-4.51); Absolute Neutrophil Count 5.5 X10^3/uL (2.0-7.7); Basophil# 0.02 X10^3/uL; Basophil% 0.2 % (0-1); Eosinophil# 0.23 X10^3/uL; Eosinophils% 2.8 % (0-5); Hematocrit 44.1 % (40-54); Hemoglobin 12.8 g/dl (13.0-16.5); Lymphocyte # 1.65 X10^3/ul (4.0); Lymphocyte % 19.8 % (19-41); Mean Corpuscular Hgb 25.8 pg (27.0-32.0); Mean Corpuscular Volume 88.9 fL (80-94); Mean Platelet Vol. 9.6 fl (6.2-12.0); Monocyte# 0.91 X10^3/uL; Monocyte% 10.9 % (0-10); Neutrophil # 5.53 X10^3/uL (2.7-7.7); Neutrophil % 66.2 % (47-70); Platelet Count 186 K/mm3 (150-450); RBC Distribution Width CV 16.3 % (11.6-14.6); RBC Distribution Width SD 53.8 fl (35.1-43.9); Red Blood Count 4.96 M/mm3 (4.6-6.2); White Blood Count 8.4 K/mm3 (4.4-11.0)
[2017-06-25 03:58] LABS: POSITIVE COUNT NO; POSITIVE DIFFERENTIAL NO; POSITIVE MORPHOLOGY NO
[2017-06-25 04:35] LABS: BUN 38 mg/dL (7-18); BUN/Creat Ratio 47.5 RATIO (10-20); Calcium,Total 8.9 mg/dL (8.5-10.1); Carbon Dioxide > 45.0 mmol/L (21.0-32.0); Chloride 95 mmol/L (98-107); EST Glomerular Filtration Rate 105 mL/min (>60); Est Glom Filt Rate - Afr Amer 127 mL/min (>60); Estimated Creatinine Clearance 109.13 ml/min; Glucose 134 mg/dL (74-106); Magnesium 2.6 mg/dL (1.6-2.6); Phosphorus 4.7 mg/dL (2.5-4.9); Potassium 3.5 mmol/L (3.5-5.1); Sodium Level 145 mmol/L (136-145)
[2017-06-25 06:40] LABS: Allen Test POS; Base Excess 28 mmol/L (-2 to +2); Bicarbonate 51.1 mmol/L (22-26); Blood Gas Specimen Type ART; FI02 70; Mode A-C; O2 Delivery Device Vent; PEEP 12; PO2 61 mmHG (75-100); RR 16; SITE R Radial; SO2 92 % (95-99); Time Given 500; Total Carbon Dioxide > 50 mmol/L; Vt 450
--- NOTE | 2017-06-25 07:17 | PCM.PN.INT ---
Subjective: Patient did okay through most of the day yesterday. Overnight, patient was weaned his lowest PEEP of 8, but then started to desaturate. Patient has been increased on FiO2 and PEEP, but stabilized this morning. Patient continues to tolerate tube feeds. Objective: Chest x-ray from this morning does show a layering left pleural effusion, but formal interpretation is pending. General: Alert, Cooperative, No apparent distress, - - Good vent synchrony noted. HEENT: Atraumatic, PERRLA, EOMI, Normocephalic, - - Periorbital edema improving Oral: Moist Mucosa, No Gingival or Mucosal Lesions/ Ulcerations Neck: Supple, No JVD, No Nodes, Trachea Midline Lungs: No rhonchi, No wheeze, Diminished, Rales, - - Symmetric expansion. No dullness to percussion. Cardiovascular: Regular rate, Regular Rhythm, Normal S1, Normal S2, No murmurs, No rub noted, No Gallop Abdomen: Bowel Sounds Present, Soft, Non Tender, Non-Distended, Obese Extremities: No cyanosis, Clubbing, Edema - Improving Skin: - - Increased erythema noted bilateral lower extremities. Right lower extremity slightly more warm than the left Musculoskeletal: No Tenderness to Palpation of Joints or Extremities, No Muscle Wasting Lymphatic: No Cervical, Supraclavicular, or Inguinal Adenopathy Neurological: Cranial nerves II-XII grossly intact, Neuro grossly intact, Motor Exam 5/5 strength throughout Psych/Mental Status: Normal Affect, Appropriate Vital Signs Temp Pulse Resp BP Pulse Ox 36.6 C 66 15 117/72 94 06/25/17 05:00 06/25/17 07:00 06/25/17 07:00 06/25/17 07:00 06/25/17 07:00 Oxygen Delivery Method Mechanical Ventilator Weight: 149.3 kg Body Mass Index (BMI) 50.1 Intake and Output for Last 24 Hours 06/23/17 06/24/17 06/25/17 23:59 23:59 23:59 Intake Total 4344.5 / 4344.5 3324.7 / 3324.7 689.9 / 689.9 Output Total 8400 / 8400 9150 / 9150 1800 / 1800 Balance -4055.5 / -4055.5 -5825.3 / -5825.3 -1110.1 / -1110.1 Labs (Last 48 Hours) 06/23/17 06/23/17 06/23/17 12:23 14:15 18:30 WBC RBC Hgb Hct MCV MCH MCHC RDW RDW Differential Plt Count MPV Immature Gran % (Auto) Neut % (Auto) Lymph % (Auto) [place] % (Auto) Eos % (Auto) Baso % (Auto) Absolute Neuts (auto) Absolute Lymphs (auto) Total Counted Specimen Type Sample Site pH Bicarbonate Actual POC Total CO2 Base Excess O2 Saturation O2 % ABG pCO2 ABG pO2 [place] Test Respiration Rate O2 Delivery Device Minute Volume Vent Mode Tidal Volume POC PEEP Blood Gas Notified Whom Blood Gas Notified Time Sodium 140 Potassium 3.8 Chloride 93 L Carbon Dioxide 42.0 H Anion Gap 5 BUN 33 H Creatinine 0.83 Estim Creat Clear Calc 105.18 Est GFR (MDRD) Af Amer 122 Est GFR (MDRD) Non-Af 101 BUN/Creatinine Ratio 39.7 H Glucose 141 H Calcium 8.2 L Phosphorus Magnesium POC Glucose 150 H 116 H 06/23/17 06/24/17 06/24/17 23:00 04:30 04:30 WBC 8.3 RBC 4.81 Hgb 12.3 L Hct 42.4 MCV 88.1 MCH 25.6 L MCHC 29.0 L RDW 16.5 H RDW Differential 53.5 H Plt Count 195 MPV 9.8 Immature Gran % (Auto) 0.200 Neut % (Auto) 78.9 H Lymph % (Auto) 12.7 L [place] % (Auto) 8.1 Eos % (Auto) 0.1 Baso % (Auto) 0.0 Absolute Neuts (auto) 6.6 Absolute Lymphs (auto) 1.05 Total Counted Not Reportable Specimen Type Sample Site pH Bicarbonate Actual POC Total CO2 Base Excess O2 Saturation O2 % ABG pCO2 ABG pO2 [place] Test Respiration Rate O2 Delivery Device Minute Volume Vent Mode Tidal Volume POC PEEP Blood Gas Notified Whom Blood Gas Notified Time Sodium 142 Potassium 3.8 Chloride 93 L Carbon Dioxide 43.0 H Anion Gap 6 BUN 35 H Creatinine 0.82 Estim Creat Clear Calc 106.46 Est GFR (MDRD) Af Amer 123 Est GFR (MDRD) Non-Af 102 BUN/Creatinine Ratio 42.5 H Glucose 178 H Calcium 8.5 Phosphorus 4.1 Magnesium 2.3 POC Glucose 130 H 06/24/17 06/24/17 06/24/17 06:35 11:45 15:35 WBC RBC Hgb Hct MCV MCH MCHC RDW RDW Differential Plt Count MPV Immature Gran % (Auto) Neut % (Auto) Lymph % (Auto) [place] % (Auto) Eos % (Auto) Baso % (Auto) Absolute Neuts (auto) Absolute Lymphs (auto) Total Counted Specimen Type Sample Site pH Bicarbonate Actual POC Total CO2 Base Excess O2 Saturation O2 % ABG pCO2 ABG pO2 [place] Test Respiration Rate O2 Delivery Device Minute Volume Vent Mode Tidal Volume POC PEEP Blood Gas Notified Whom Blood Gas Notified Time Sodium 142 Potassium 3.7 Chloride 93 L Carbon Dioxide > 45.0 H* Anion Gap TNP BUN 34 H Creatinine 0.82 Estim Creat Clear Calc 106.46 Est GFR (MDRD) Af Amer 124 Est GFR (MDRD) Non-Af 103 BUN/Creatinine Ratio 41.6 H Glucose 100 Calcium 8.7 Phosphorus 4.2 Magnesium 2.4 POC Glucose 158 H 113 H 06/24/17 06/24/17 06/25/17 17:48 23:51 03:45 WBC 8.4 RBC 4.96 Hgb 12.8 L Hct 44.1 MCV 88.9 MCH 25.8 L MCHC 29.0 L RDW 16.3 H RDW Differential 53.8 H Plt Count 186 MPV 9.6 Immature Gran % (Auto) 0.100 Neut % (Auto) 66.2 Lymph % (Auto) 19.8 [place] % (Auto) 10.9 H Eos % (Auto) 2.8 Baso % (Auto) 0.2 Absolute Neuts (auto) 5.5 Absolute Lymphs (auto) 1.65 Total Counted Not Reportable Specimen Type Sample Site pH Bicarbonate Actual POC Total CO2 Base Excess O2 Saturation O2 % ABG pCO2 ABG pO2 [place] Test Respiration Rate O2 Delivery Device Minute Volume Vent Mode Tidal Volume POC PEEP Blood Gas Notified Whom Blood Gas Notified Time Sodium Potassium Chloride Carbon Dioxide Anion Gap BUN Creatinine Estim Creat Clear Calc Est GFR (MDRD) Af Amer Est GFR (MDRD) Non-Af BUN/Creatinine Ratio Glucose Calcium Phosphorus Magnesium POC Glucose 130 H 155 H 06/25/17 06/25/17 03:45 05:07 WBC RBC Hgb Hct MCV MCH MCHC RDW RDW Differential Plt Count MPV Immature Gran % (Auto) Neut % (Auto) Lymph % (Auto) [place] % (Auto) Eos % (Auto) Baso % (Auto) Absolute Neuts (auto) Absolute Lymphs (auto) Total Counted Specimen Type ART Sample Site R Radial pH 7.50 H Bicarbonate Actual 51.1 H POC Total CO2 > 50 Base Excess 28 H O2 Saturation 92 L O2 % 70 ABG pCO2 65.0 H ABG pO2 61 L [place] Test POS Respiration Rate 16 O2 Delivery Device Vent Minute Volume 7.00 Vent Mode A-C Tidal Volume 450 POC PEEP 12 Blood Gas Notified Whom ICU Blood Gas Notified Time 500 Sodium 145 Potassium 3.5 Chloride 95 L Carbon Dioxide > 45.0 H* Anion Gap TNP BUN 38 H Creatinine 0.80 Estim Creat Clear Calc 109.13 Est GFR (MDRD) Af Amer 127 Est GFR (MDRD) Non-Af 105 BUN/Creatinine Ratio 47.5 H Glucose 134 H Calcium 8.9 Phosphorus 4.7 Magnesium 2.6 POC Glucose Microbiology 06/21/17 04:00 Sputum, Induced/Lukens Gram Stain - Final 06/21/17 04:00 Sputum, Induced/Lukens Respiratory Culture - Final 06/20/17 17:40 Urine, Clean Catch Urine Culture - Final Culture exhibits no growth. Medical Necessity - Tobacco Use Smoking Status: Current every day smoker Tobacco Use: - - Resume cigarettes but unable to obtain as the patient is sedated Assessment/Plan Active and Suspected Problems (Last Reviewed 06/13/17 @ 14:25 by Binta Isaac) Acute respiratory failure with hypoxia and hypercapnia (Acute) Pneumococcal pneumonia (Acute) Metabolic encephalopathy (Acute) Heart failure with reduced ejection fraction (Acute) RECOMMENDATIONS: 1. Continue to wean PEEP as indicated 2. Attempt to wean oxygen to less than 60% 3. Aggressive diuresis, continue Bumex drip 4. Continue bronchodilators and monitor off antibiotics 5. Elevate lower extremities 6. Increase activity IMPRESSIONS: 1. Acute on chronic combined respiratory failure Clinical suspicion for acute on chronic systolic congestive heart failure as an etiology secondary to noncompliance with low-salt diet. Patient is also supposed to be on BiPAP therapy as an outpatient, but is not compliant. Low clinical suspicion for COPD/asthma exacerbation, but history is not available at this time. Antibiotics were discontinued yesterday. Will continue steroids, but likely requires bronchodilators. Aggressive diuresis. Decrease PEEP as able. Continue Bumex drip at current levels. Overnight events are likely secondary to the recruitment secondary to continued pulmonary edema. Increase PEEP leads to recruitment and then wean through the day. Anticipate continued diuresis 2. Acute on chronic diastolic congestive heart failure/coronary artery disease Repeat echocardiogram shows improvement in ejection fraction to 50%. Technically difficult echocardiogram. Cannot exclude valvular dysfunction leading to artificially improved ejection fraction. Telemetry is unimpressive at this time. We will continue with aggressive diuresis. Cardiology is following. 3. Metabolic encephalopathy secondary to #1 Patient with significant CO2 retention on presentation. ABG this morning shows adequate oxygenation and ventilation. Patient is on fentanyl and propofol for vent synchrony. Will continue to monitor. This appears to be improving as patient is more directable today compared to previous. Will attempt to increase activity despite increased PEEP levels today. 4. Diabetes mellitus type 2 Continue tube feeds. Anticipate prolonged intubation secondary to need for diuretic therapy and offloading of the heart. Continue to monitor blood sugars. Appears to be well-controlled at this time. 5. Morbid obesity/history of noncompliance/hypertension/seasonal allergies Complicates care, management, recovery and prognosis. On baseline medications. TIME: 31 minutes critical care time spent addressing patient's acute on chronic respiratory failure, congestive heart failure, metabolic encephalopathy, review of all data and collaboration with care team. (5:30 AM to 6:30 AM) Code Visit 9xxxx: [id number] Critical care first hour
[2017-06-25 07:30] LABS: Bedside Glucose 136 mg/dL (70-110)
[2017-06-25] MEDS: Propofol 10MG/Ml 1,000 MG/100 ML Bottle 5.199 MG CONT INF ×2 (08:45→20:58)
--- NOTE | 2017-06-25 09:10 | CASEMGMT ---
SOCIAL WORK: Chart reviewed. Patient remains intubated at this time. NORBERTO Syed
--- NOTE | 2017-06-25 10:33 | RAD_ITS ---
STUDY: X-RAY CHEST REASON FOR EXAM: Male, 57 years old. Orogastric tube placement. TECHNIQUE: Single AP portable view of the chest and AP radiograph of the abdomen. COMPARISON: June 20, 2017. FINDINGS: Patient is intubated. The tip of endotracheal tube is at the aortic arch. Enteric tube is present with the distal and probably within the distal stomach. The lungs are underexpanded. There is heterogeneous left basilar airspace consolidation and/or atelectasis. There is a focal opacity in the right upper lobe that may represent airspace disease as well. There is no demonstrated pleural abnormality. There is mild cardiac enlargement. Normal mediastinum and marta. Normal visualized pulmonary arteries. There is atherosclerotic calcification of the aortic arch with tortuosity. There is multilevel thoracic spondylosis. Normal visualized ribs, clavicles, and shoulders. There is no demonstrated abnormality of the visualized soft tissue structures of the upper abdomen. RAD/Chest 1 View (Portable) IMPRESSION: 1. Enteric tube is in appropriate position. 2. Improved aeration of the right lung since the previous study. Electronically Signed: Katya Wright MD at 12:08 EDT , Service support ,
[2017-06-25] MEDS: Aspirin 81 MG TAB.CHEW GT (11:54)
[2017-06-25] MEDS: Chlorhexidine 15 ML PO ×2 (11:55→21:02)
[2017-06-25] MEDS: CHLORHEXIDINE GLUC 2% CLOTH 1 EACH TOWELETTE TOPICAL (11:55)
[2017-06-25] MEDS: Enoxaparin 40 MG/0.4 ML Syringe SC (11:56)
[2017-06-25] MEDS: Nystatin Powder 15gm Bottle 1 APPLIC TOPICAL ×2 (11:56→21:00)
[2017-06-25] MEDS: Famotidine 20 MG Tablet GT ×2 (11:56→21:00)
[2017-06-25] MEDS: Losartan Potassium 25 MG Tablet GT (11:56)
[2017-06-25] MEDS: Clopidogrel Bisulfate 75 MG Tablet GT (11:57)
[2017-06-25] MEDS: Carvedilol 3.125 MG TABLET GT ×2 (11:58→21:02)
[2017-06-25 12:15] LABS: Bedside Glucose 110 mg/dL (70-110)
--- NOTE | 2017-06-25 13:52 | PCM.PROGNOTE ---
Patient Problems: Active and Suspected Problems (Last Reviewed 06/13/17 @ 14:25 by Binta Isaac) Acute respiratory failure with hypoxia and hypercapnia (Acute) Pneumococcal pneumonia (Acute) Metabolic encephalopathy (Acute) Heart failure with reduced ejection fraction (Acute) Subjective: She was seen and examined today, he is alert and on the ventilator, nods his head to questions. I talked with critical care concerning his care today - Physical Exam General: Alert, Oriented x3, Cooperative, No apparent distress, Well developed HEENT: Atraumatic, PERRLA, EOMI, Normocephalic Oral: Moist Mucosa Neck: Supple, No JVD, No Nuchal Rigidity, Trachea Midline, Thyroid Normal Size and Texture Lungs: No rhonchi, Diminished, Wheezes - Scattered expiratory wheezes are noted bilaterally Cardiovascular: Regular rate, Regular Rhythm, Normal S1, Normal S2, No murmurs, No Ectopic Activity, PMI Normal, No rub noted, No Gallop Abdomen: Bowel Sounds Present, Soft, Non Tender, Non-Distended, Obese Extremities: No clubbing, No cyanosis, Capillary Refill Less than 3 Seconds Skin: No rashes, No breakdown Musculoskeletal: No Tenderness to Palpation of Joints or Extremities Neurological: Cranial nerves II-XII grossly intact, Neuro grossly intact, Sensory exam intact to light touch and pain, Coordination normal Psych/Mental Status: Normal Affect, Appropriate, Alert and oriented to time, place, person, mood and affect Vital Signs Temp Pulse Resp BP Pulse Ox 98.4 F 78 14 109/68 93 06/25/17 12:00 06/25/17 13:44 06/25/17 13:44 06/25/17 13:00 06/25/17 13:44 Oxygen Delivery Method Mechanical Ventilator Weight: 149.3 kg Body Mass Index (BMI) 50.1 Intake and Output for Last 24 Hours 06/23/17 06/24/17 06/25/17 23:59 23:59 23:59 Intake Total 4344.5 / 4344.5 3324.7 / 3324.7 1393.9 / 1393.9 Output Total 8400 / 8400 9150 / 9150 3100 / 3100 Balance -4055.5 / -4055.5 -5825.3 / -5825.3 -1706.1 / -1706.1 Microbiology Past 72 Hours 06/21/17 04:00 Gram Stain - Final Sputum, Induced/Lukens Respiratory Culture - Final 06/20/17 17:40 Urine Culture - Final Urine, Clean Catch Culture exhibits no growth. Laboratory Tests Past 24 Hrs 06/24/17 06/25/17 06/25/17 15:35 03:45 03:45 WBC 8.4 RBC 4.96 Hgb 12.8 L Hct 44.1 MCV 88.9 MCH 25.8 L MCHC 29.0 L RDW 16.3 H RDW Differential 53.8 H Plt Count 186 MPV 9.6 Immature Gran % (Auto) 0.100 Neut % (Auto) 66.2 Lymph % (Auto) 19.8 [place] % (Auto) 10.9 H Eos % (Auto) 2.8 Baso % (Auto) 0.2 Absolute Neuts (auto) 5.5 Absolute Lymphs (auto) 1.65 Total Counted Not Reportable Specimen Type Sample Site pH Bicarbonate Actual POC Total CO2 Base Excess O2 Saturation O2 % ABG pCO2 ABG pO2 Salas Test Respiration Rate O2 Delivery Device Minute Volume Vent Mode Tidal Volume POC PEEP Blood Gas Notified Whom Blood Gas Notified Time Sodium 142 145 Potassium 3.7 3.5 Chloride 93 L 95 L Carbon Dioxide > 45.0 H* > 45.0 H* Anion Gap TNP TNP BUN 34 H 38 H Creatinine 0.82 0.80 Estim Creat Clear Calc 106.46 109.13 Est GFR (MDRD) Af Amer 124 127 Est GFR (MDRD) Non-Af 103 105 BUN/Creatinine Ratio 41.6 H 47.5 H Glucose 100 134 H Calcium 8.7 8.9 Phosphorus 4.2 4.7 Magnesium 2.4 2.6 06/25/17 05:07 WBC RBC Hgb Hct MCV MCH MCHC RDW RDW Differential Plt Count MPV Immature Gran % (Auto) Neut % (Auto) Lymph % (Auto) [place] % (Auto) Eos % (Auto) Baso % (Auto) Absolute Neuts (auto) Absolute Lymphs (auto) Total Counted Specimen Type ART Sample Site R Radial pH 7.50 H Bicarbonate Actual 51.1 H POC Total CO2 > 50 Base Excess 28 H O2 Saturation 92 L O2 % 70 ABG pCO2 65.0 H ABG pO2 61 L Salas Test POS Respiration Rate 16 O2 Delivery Device Vent Minute Volume 7.00 Vent Mode A-C Tidal Volume 450 POC PEEP 12 Blood Gas Notified Whom ICU MD Blood Gas Notified Time 500 Sodium Potassium Chloride Carbon Dioxide Anion Gap BUN Creatinine Estim Creat Clear Calc Est GFR (MDRD) Af Amer Est GFR (MDRD) Non-Af BUN/Creatinine Ratio Glucose Calcium Phosphorus Magnesium POC Glucose 06/25/17 06/25/17 06/24/17 12:13 05:34 23:51 POC Glucose 110 136 H 155 H 06/24/17 17:48 POC Glucose 130 H Medical Necessity - Tobacco Use Smoking Status: Current every day smoker Tobacco Use: - - Resume cigarettes but unable to obtain as the patient is sedated Assessment/Plan Active and Suspected Problems (Last Reviewed 06/13/17 @ 14:25 by Binta Isaac) Acute respiratory failure with hypoxia and hypercapnia (Acute) Pneumococcal pneumonia (Acute) Metabolic encephalopathy (Acute) Heart failure with reduced ejection fraction (Acute) #1 combined respiratory failure secondary to acute diastolic congestive heart failure- pulmonary medicine is managing his ventilator, he is currently receiving IV Bumex per cardiology, patient remains on the vent at this time, patient is diuresing well at this time, chest x-ray today shows improving aeration in the right lung #2 acute diastolic congestive heart failure-EF 50%, cardiology is participating in his care #3 chronic obstructive pulmonary disease #4 morbid obesity #5 type 2 diabetes #6 coronary artery disease #7 obstructive sleep apnea Code Visit Inpatient E&M: [id number] Subs Hosp L2
--- NOTE | 2017-06-25 15:31 | PN.CARD_ITS ---
Subjectve: The patient remains mechanically intubated/ventilated. He does appear to respond to verbal stimuli. He does not appear to complain of chest discomfort. Objective: Vital Signs Temp Pulse Resp BP Pulse Ox 98.4 F 85 15 107/70 92 06/25/17 12:00 06/25/17 15:00 06/25/17 15:00 06/25/17 15:00 06/25/17 15:00 Oxygen Delivery Method Mechanical Ventilator Weight: 329 lb 2.402 oz Body Mass Index (BMI) 50.1 Intake and Output for Last 24 Hours 06/23/17 06/24/17 06/25/17 23:59 23:59 23:59 Intake Total 4344.5 / 4344.5 3324.7 / 3324.7 1443.9 / 1443.9 Output Total 8400 / 8400 9150 / 9150 3100 / 3100 Balance -4055.5 / -4055.5 -5825.3 / -5825.3 -1656.1 / -1656.1 General: Awake, Alert, Cooperative, No Acute Distress, Obese Neck: No JVD Lungs: Diminished Arturo Bases Cardiovascular: Regular Rhythm, Normal S1, Normal S2 Abdomen: Bowel Sounds Present, Soft, Non Tender Extremities: Moderate RLE Edema, Moderate LLE Edema 06/24/17 15:35: Sodium 142, Potassium 3.7, Chloride 93 L, Carbon Dioxide > 45.0 H*, Anion Gap TNP, BUN 34 H, Creatinine 0.82, Est GFR (MDRD) Af Amer 124, Est GFR (MDRD) Non-Af 103, BUN/Creatinine Ratio 41.6 H, Glucose 100, Calcium 8.7, Phosphorus 4.2, Magnesium 2.4 06/25/17 03:45: WBC 8.4, RBC 4.96, Hgb 12.8 L, Hct 44.1, MCV 88.9, MCH 25.8 L, MCHC 29.0 L, RDW 16.3 H, RDW Differential 53.8 H, Plt Count 186, MPV 9.6, Immature Gran % (Auto) 0.100, Neut % (Auto) 66.2, Lymph % (Auto) 19.8, [place] % ( Auto) 10.9 H, Eos % (Auto) 2.8, Baso % (Auto) 0.2, Absolute Neuts (auto) 5.5, Total Counted Not Reportable 06/25/17 03:45: Sodium 145, Potassium 3.5, Chloride 95 L, Carbon Dioxide > 45.0 H*, Anion Gap TNP, BUN 38 H, Creatinine 0.80, Est GFR (MDRD) Af Amer 127, Est GFR (MDRD) Non-Af 105, BUN/Creatinine Ratio 47.5 H, Glucose 134 H, Calcium 8.9, Phosphorus 4.7, Magnesium 2.6 06/25/17 05:07: pH 7.50 H, Bicarbonate Actual 51.1 H, POC Total CO2 > 50, Base Excess 28 H, O2 Saturation 92 L, ABG pCO2 65.0 H, ABG pO2 61 L, Salas Test POS Rhythm: Sinus rhythm Medical Necessity - Tobacco Use Smoking Status: Current every day smoker Tobacco Use: - - Resume cigarettes but unable to obtain as the patient is sedated Assessment/Plan 1. CAD status post PCI The patient does have a history of underlying CAD. He is undergone previous PCI in the past. At the present time he continues medical management. He is being considered for future repeat diagnostic cardiac catheterization to reassess his coronary/ stent status based on his ongoing cardiovascular issues. 2. Ischemic mediated cardiomyopathy He does have an underlying ischemic mediated cardiomyopathy. His most recent echocardiogram report has been reviewed. At the present time he is continuing medical management as best as tolerated based upon a combination of vital signs, very function, renal function etc. 3. Acute on chronic systolic mediated CHF The patient did present with concerns of acute on chronic systolic mediated CHF. He has been undergoing evaluation and care. This has included IV diuretic therapy. He has had significant diuresis. His clinical status appears to be improving, yet, he has still mechanically intubated and ventilated. Thus, he will continue his medical management. Hopefully with additional diuresis his pulmonary status will continue to be improve and he will be able to be extubated. 4. Hyperlipidemia He will continue medical therapy as deemed appropriate and able. 5. Hypertension His blood pressures are being followed. His medications are being adjusted during this time as his blood pressures fluctuate. Overall from a cardiac standpoint he will continue medical management. This has included a combination of agents as he is able to tolerate and receive with respect to aspirin, antiplatelet therapy, nitrates, beta-blockers, diuretics, afterload reducing agents, lipid-lowering agents, etc. Hopefully if his clinical status continues to improve, and especially if he is able to be extubated, he can undergo future evaluation with diagnostic cardiac catheterization to reassess his coronary status for the need for further revascularization therapy. This note was generated with [employer] dictation software. It may contain incorrect words, spelling, and punctuation that were not noted in checking the note before signing.
[2017-06-25 18:46] LABS: Bedside Glucose 159 mg/dL (70-110)
[2017-06-25] MEDS: Bumetanide 25 MG in CONTAINER,EMPTY 1 BAG 4 MG CONT INF (23:29)
[2017-06-26] VITALS (42 sets, daily range): BP systolic 97–128; BP diastolic 56–86; PULSE 75–93; RESP 9–21; TEMP 36.6–37.2; O2SAT 86–94
[2017-06-26 01:26] LABS: Bedside Glucose 175 mg/dL (70-110)
[2017-06-26] MEDS: Ipratropium/Albuterol Sulfate 3 ML AMPUL.NEB INHALATION ×4 (01:33→18:53)
[2017-06-26] MEDS: CHLORHEXIDINE GLUC 2% CLOTH 1 EACH TOWELETTE TOPICAL (05:20)
[2017-06-26 06:14] LABS: Magnesium 2.9 mg/dL (1.6-2.6); Phosphorus 5.1 mg/dL (2.5-4.9)
[2017-06-26 07:14] LABS: Anion Gap 6 (5-15); BUN 44 mg/dL (7-18); BUN/Creat Ratio 49.1 RATIO (10-20); Calcium,Total 9.3 mg/dL (8.5-10.1); Chloride 97 mmol/L (98-107); EST Glomerular Filtration Rate 92 mL/min (>60); Est Glom Filt Rate - Afr Amer 112 mL/min (>60); Glucose 148 mg/dL (74-106); Potassium 3.7 mmol/L (3.5-5.1); Sodium Level 148 mmol/L (136-145)
--- NOTE | 2017-06-26 07:53 | PCM.PN.INT ---
Subjective: Patient did well overnight. No acute issues were reported. Patient was able to come down on FiO2, but PEEP was unable to be weaned. Patient with no complaints at this time. Patient is tolerating tube feeds. Patient did not have a spontaneous breathing trial this morning secondary to elevated levels of PEEP. Patient continues to be immobilized despite increased levels of PEEP and appears to be tolerating well. General: Alert, Cooperative, No apparent distress, - - Follows commands. Morbidly obese. HEENT: Atraumatic, PERRLA, EOMI, Normocephalic, - - No scleral icterus or injection noted. Oral: Moist Mucosa, No Gingival or Mucosal Lesions/ Ulcerations Neck: Supple, No JVD, No Nodes, Trachea Midline Lungs: No rhonchi, No wheeze, No rales, Diminished, - - Symmetric expansion. No dullness to percussion. Cardiovascular: Regular rate, Regular Rhythm, Normal S1, Normal S2, No murmurs, No rub noted, No Gallop Abdomen: Bowel Sounds Present, Soft, Non Tender, Non-Distended, Obese Extremities: No cyanosis, Clubbing, Edema - 10 use to improve Skin: - - Lower extremity hyperemia appears to be improving. Musculoskeletal: No Tenderness to Palpation of Joints or Extremities Lymphatic: No Cervical, Supraclavicular, or Inguinal Adenopathy Neurological: Cranial nerves II-XII grossly intact, Neuro grossly intact, Motor Exam 5/5 strength throughout Psych/Mental Status: Normal Affect, Appropriate Vital Signs Temp Pulse Resp BP Pulse Ox 37.2 C 83 13 119/78 92 06/26/17 04:00 06/26/17 06:43 06/26/17 06:43 06/26/17 06:00 06/26/17 06:43 Oxygen Delivery Method Mechanical Ventilator Weight: 145.9 kg Body Mass Index (BMI) 50.1 Intake and Output for Last 24 Hours 06/24/17 06/25/17 06/26/17 23:59 23:59 23:59 Intake Total 3324.7 / 3324.7 2154.9 / 2154.9 1536.6 / 1536.6 Output Total 9150 / 9150 4500 / 4500 2900 / 2900 Balance -5825.3 / -5825.3 -2345.1 / -2345.1 -1363.4 / -1363.4 Labs (Last 48 Hours) 06/24/17 06/24/17 06/24/17 11:45 15:35 17:48 WBC RBC Hgb Hct MCV MCH MCHC RDW RDW Differential Plt Count MPV Immature Gran % (Auto) Neut % (Auto) Lymph % (Auto) [place] % (Auto) Eos % (Auto) Baso % (Auto) Absolute Neuts (auto) Absolute Lymphs (auto) Total Counted Specimen Type Sample Site pH Bicarbonate Actual POC Total CO2 Base Excess O2 Saturation O2 % ABG pCO2 ABG pO2 Salas Test Respiration Rate O2 Delivery Device Minute Volume Vent Mode Tidal Volume POC PEEP Blood Gas Notified Whom Blood Gas Notified Time Sodium 142 Potassium 3.7 Chloride 93 L Carbon Dioxide > 45.0 H* Anion Gap TNP BUN 34 H Creatinine 0.82 Estim Creat Clear Calc 106.46 Est GFR (MDRD) Af Amer 124 Est GFR (MDRD) Non-Af 103 BUN/Creatinine Ratio 41.6 H Glucose 100 Calcium 8.7 Phosphorus 4.2 Magnesium 2.4 POC Glucose 113 H 130 H 06/24/17 06/25/17 06/25/17 23:51 03:45 03:45 WBC 8.4 RBC 4.96 Hgb 12.8 L Hct 44.1 MCV 88.9 MCH 25.8 L MCHC 29.0 L RDW 16.3 H RDW Differential 53.8 H Plt Count 186 MPV 9.6 Immature Gran % (Auto) 0.100 Neut % (Auto) 66.2 Lymph % (Auto) 19.8 [place] % (Auto) 10.9 H Eos % (Auto) 2.8 Baso % (Auto) 0.2 Absolute Neuts (auto) 5.5 Absolute Lymphs (auto) 1.65 Total Counted Not Reportable Specimen Type Sample Site pH Bicarbonate Actual POC Total CO2 Base Excess O2 Saturation O2 % ABG pCO2 ABG pO2 Salas Test Respiration Rate O2 Delivery Device Minute Volume Vent Mode Tidal Volume POC PEEP Blood Gas Notified Whom Blood Gas Notified Time Sodium 145 Potassium 3.5 Chloride 95 L Carbon Dioxide > 45.0 H* Anion Gap TNP BUN 38 H Creatinine 0.80 Estim Creat Clear Calc 109.13 Est GFR (MDRD) Af Amer 127 Est GFR (MDRD) Non-Af 105 BUN/Creatinine Ratio 47.5 H Glucose 134 H Calcium 8.9 Phosphorus 4.7 Magnesium 2.6 POC Glucose 155 H 06/25/17 06/25/17 06/25/17 05:07 05:34 12:13 WBC RBC Hgb Hct MCV MCH MCHC RDW RDW Differential Plt Count MPV Immature Gran % (Auto) Neut % (Auto) Lymph % (Auto) [place] % (Auto) Eos % (Auto) Baso % (Auto) Absolute Neuts (auto) Absolute Lymphs (auto) Total Counted Specimen Type ART Sample Site R Radial pH 7.50 H Bicarbonate Actual 51.1 H POC Total CO2 > 50 Base Excess 28 H O2 Saturation 92 L O2 % 70 ABG pCO2 65.0 H ABG pO2 61 L Salas Test POS Respiration Rate 16 O2 Delivery Device Vent Minute Volume 7.00 Vent Mode A-C Tidal Volume 450 POC PEEP 12 Blood Gas Notified Whom ICU MD Blood Gas Notified Time 500 Sodium Potassium Chloride Carbon Dioxide Anion Gap BUN Creatinine Estim Creat Clear Calc Est GFR (MDRD) Af Amer Est GFR (MDRD) Non-Af BUN/Creatinine Ratio Glucose Calcium Phosphorus Magnesium POC Glucose 136 H 110 06/25/17 06/25/17 06/26/17 18:41 23:32 05:10 WBC RBC Hgb Hct MCV MCH MCHC RDW RDW Differential Plt Count MPV Immature Gran % (Auto) Neut % (Auto) Lymph % (Auto) [place] % (Auto) Eos % (Auto) Baso % (Auto) Absolute Neuts (auto) Absolute Lymphs (auto) Total Counted Specimen Type Sample Site pH Bicarbonate Actual POC Total CO2 Base Excess O2 Saturation O2 % ABG pCO2 ABG pO2 Salas Test Respiration Rate O2 Delivery Device Minute Volume Vent Mode Tidal Volume POC PEEP Blood Gas Notified Whom Blood Gas Notified Time Sodium 148 H Potassium 3.7 Chloride 97 L Carbon Dioxide 45.0 H Anion Gap 6 BUN 44 H Creatinine 0.90 Estim Creat Clear Calc 97.00 Est GFR (MDRD) Af Amer 112 Est GFR (MDRD) Non-Af 92 BUN/Creatinine Ratio 49.1 H Glucose 148 H Calcium 9.3 Phosphorus Magnesium POC Glucose 159 H 175 H 06/26/17 05:10 WBC RBC Hgb Hct MCV MCH MCHC RDW RDW Differential Plt Count MPV Immature Gran % (Auto) Neut % (Auto) Lymph % (Auto) [place] % (Auto) Eos % (Auto) Baso % (Auto) Absolute Neuts (auto) Absolute Lymphs (auto) Total Counted Specimen Type Sample Site pH Bicarbonate Actual POC Total CO2 Base Excess O2 Saturation O2 % ABG pCO2 ABG pO2 Salas Test Respiration Rate O2 Delivery Device Minute Volume Vent Mode Tidal Volume POC PEEP Blood Gas Notified Whom Blood Gas Notified Time Sodium Potassium Chloride Carbon Dioxide Anion Gap BUN Creatinine Estim Creat Clear Calc Est GFR (MDRD) Af Amer Est GFR (MDRD) Non-Af BUN/Creatinine Ratio Glucose Calcium Phosphorus 5.1 H Magnesium 2.9 H POC Glucose Clinical Impression(s) from Imaging Studies Chest X-Ray 06/25/17 10:33 IMPRESSION: 1. Enteric tube is in appropriate position. 2. Improved aeration of the right lung since the previous study. Electronically Signed: Katya Wirght MD at 12:08 EDT , Service support , Medical Necessity - Tobacco Use Smoking Status: Current every day smoker Tobacco Use: - - Resume cigarettes but unable to obtain as the patient is sedated Assessment/Plan Active and Suspected Problems (Last Reviewed 06/13/17 @ 14:25 by Binta Isaac) Acute respiratory failure with hypoxia and hypercapnia (Acute) Pneumococcal pneumonia (Acute) Metabolic encephalopathy (Acute) Heart failure with reduced ejection fraction (Acute) RECOMMENDATIONS: 1. Continue to wean PEEP as indicated 2. Discontinue Bumex drip once current bag is completed 3. Continuous breathing trial per protocol 4. Continue bronchodilators and monitor off antibiotics 5. Elevate lower extremities 6. Increase activity IMPRESSIONS: 1. Acute on chronic combined respiratory failure Clinical suspicion for acute on chronic systolic congestive heart failure as an etiology secondary to noncompliance with low-salt diet. Patient is also supposed to be on BiPAP therapy as an outpatient, but is not compliant. Low clinical suspicion for COPD/asthma exacerbation, but history is not available at this time. Antibiotics were discontinued yesterday. Patient currently off of steroid therapy. Laboratory data is showing the patient is starting to become contracted. Will discontinue Bumex drip once current bag is completed. Patient will likely go to intermittent Lasix therapy. No indication for antibiotics. Wean PEEP as tolerated and spontaneous breathing trial per protocol. 2. Acute on chronic diastolic congestive heart failure/coronary artery disease Repeat echocardiogram shows improvement in ejection fraction to 50%. Technically difficult echocardiogram. Cannot exclude valvular dysfunction leading to artificially improved ejection fraction. Telemetry is unimpressive at this time. We will continue with aggressive diuresis. Cardiology is following. 3. Metabolic encephalopathy secondary to #1 Patient with significant CO2 retention on presentation. ABG this morning shows adequate oxygenation and ventilation. Patient is on fentanyl and propofol for vent synchrony. Will continue to monitor. This appears to be improving as patient is back to his baseline mentation and following commands appropriately. Will attempt to increase activity despite increased PEEP levels today. 4. Diabetes mellitus type 2 Continue tube feeds. Continue to monitor blood sugars. Appears to be well-controlled at this time. 5. Morbid obesity/history of noncompliance/hypertension/seasonal allergies Complicates care, management, recovery and prognosis. On baseline medications. TIME: 34 minutes critical care time spent addressing patient's acute on chronic respiratory failure, congestive heart failure, metabolic encephalopathy, review of all data and collaboration with care team. (6:30 AM to 7:30 AM) Code Visit 9xxxx: [id number] Critical care first hour
[2017-06-26] MEDS: Propofol 10MG/Ml 1,000 MG/100 ML Bottle 5.199 MG CONT INF ×3 (08:08→23:18)
[2017-06-26] MEDS: Chlorhexidine 15 ML PO ×2 (08:25→21:32)
[2017-06-26 08:41] LABS: Bedside Glucose 168 mg/dL (70-110)
[2017-06-26] MEDS: Aspirin 81 MG TAB.CHEW GT (11:38)
[2017-06-26] MEDS: Carvedilol 3.125 MG TABLET GT ×2 (11:38→21:32)
[2017-06-26] MEDS: Losartan Potassium 25 MG Tablet GT (11:39)
[2017-06-26] MEDS: Enoxaparin 40 MG/0.4 ML Syringe SC (11:39)
[2017-06-26] MEDS: Clopidogrel Bisulfate 75 MG Tablet GT (11:40)
[2017-06-26] MEDS: Famotidine 20 MG Tablet GT ×2 (11:40→21:32)
[2017-06-26] MEDS: Nystatin Powder 15gm Bottle 1 APPLIC TOPICAL ×2 (11:40→21:32)
[2017-06-26] MEDS: Vital AF 1.2 Cal Liquid 1,000 ML 75 ML GT (11:41)
[2017-06-26 12:15] LABS: Bedside Glucose 159 mg/dL (70-110)
--- NOTE | 2017-06-26 15:49 | PCM.PROGNOTE ---
Patient Problems: Active and Suspected Problems (Last Reviewed 06/13/17 @ 14:25 by Binta Isaac) Acute respiratory failure with hypoxia and hypercapnia (Acute) Pneumococcal pneumonia (Acute) Metabolic encephalopathy (Acute) Heart failure with reduced ejection fraction (Acute) Subjective: She was seen and examined today, he is alert and responds to questions by nodding his head. He still remains on the ventilator at this time, I talked with pulmonary medicine about his care. - Physical Exam General: Alert, Oriented x3, Cooperative, No apparent distress, Well developed HEENT: Atraumatic, PERRLA, EOMI, Normocephalic Oral: Moist Mucosa Neck: Supple, No JVD, No Nuchal Rigidity, Trachea Midline, Thyroid Normal Size and Texture Lungs: Clear to auscultation, No rhonchi, No wheeze, No rales, Diminished Cardiovascular: Regular rate, Regular Rhythm, Normal S1, Normal S2, No murmurs, No Ectopic Activity, PMI Normal, No rub noted, No Gallop Abdomen: Bowel Sounds Present, Soft, Non Tender, Non-Distended, No hernias noted Extremities: No clubbing, No cyanosis, No edema, Capillary Refill Less than 3 Seconds Skin: No rashes, No breakdown Musculoskeletal: No Tenderness to Palpation of Joints or Extremities Neurological: Cranial nerves II-XII grossly intact, Neuro grossly intact, Sensory exam intact to light touch and pain, Coordination normal Psych/Mental Status: Normal Affect, Appropriate, Alert and oriented to time, place, person, mood and affect Vital Signs Temp Pulse Resp BP Pulse Ox 98.7 F 88 19 H 110/69 90 06/26/17 12:00 06/26/17 13:04 06/26/17 13:04 06/26/17 13:00 06/26/17 13:04 Oxygen Delivery Method Mechanical Ventilator Weight: 145.9 kg Body Mass Index (BMI) 50.1 Intake and Output for Last 24 Hours 06/24/17 06/25/17 06/26/17 23:59 23:59 23:59 Intake Total 3324.7 / 3324.7 2154.9 / 2154.9 2211.6 / 2211.6 Output Total 9150 / 9150 4500 / 4500 4100 / 4100 Balance -5825.3 / -5825.3 -2345.1 / -2345.1 -1888.4 / -1888.4 Laboratory Tests Past 24 Hrs 06/26/17 06/26/17 05:10 05:10 Sodium 148 H Potassium 3.7 Chloride 97 L Carbon Dioxide 45.0 H Anion Gap 6 BUN 44 H Creatinine 0.90 Estim Creat Clear Calc 97.00 Est GFR (MDRD) Af Amer 112 Est GFR (MDRD) Non-Af 92 BUN/Creatinine Ratio 49.1 H Glucose 148 H Calcium 9.3 Phosphorus 5.1 H Magnesium 2.9 H POC Glucose 06/26/17 06/26/17 06/25/17 11:45 05:12 23:32 POC Glucose 159 H 168 H 175 H 06/25/17 18:41 POC Glucose 159 H Medical Necessity - Tobacco Use Smoking Status: Current every day smoker Tobacco Use: - - Resume cigarettes but unable to obtain as the patient is sedated Assessment/Plan Active and Suspected Problems (Last Reviewed 06/13/17 @ 14:25 by Binta Isaac) Acute respiratory failure with hypoxia and hypercapnia (Acute) Pneumococcal pneumonia (Acute) Metabolic encephalopathy (Acute) Heart failure with reduced ejection fraction (Acute) #1 combined respiratory failure secondary to acute diastolic congestive heart failure- pulmonary medicine is managing his ventilator, he is currently receiving IV Bumex per cardiology, patient remains on the vent at this time, patient is diuresing well at this time #2 acute diastolic congestive heart failure-EF 50%, cardiology is participating in his care #3 chronic obstructive pulmonary disease #4 morbid obesity #5 type 2 diabetes #6 coronary artery disease #7 obstructive sleep apnea Code Visit Inpatient E&M: [id number] [facility] Hosp L2
--- NOTE | 2017-06-26 16:39 | PN.CARD_ITS ---
Subjectve: The patient remains mechanically intubated and ventilated. Objective: Vital Signs Temp Pulse Resp BP Pulse Ox 98.7 F 75 14 105/69 89 06/26/17 12:00 06/26/17 16:00 06/26/17 16:00 06/26/17 16:00 06/26/17 16:00 Oxygen Delivery Method Mechanical Ventilator Weight: 321 lb 10.471 oz Body Mass Index (BMI) 50.1 Intake and Output for Last 24 Hours 06/24/17 06/25/17 06/26/17 23:59 23:59 23:59 Intake Total 3324.7 / 3324.7 2154.9 / 2154.9 2211.6 / 2211.6 Output Total 9150 / 9150 4500 / 4500 4100 / 4100 Balance -5825.3 / -5825.3 -2345.1 / -2345.1 -1888.4 / -1888.4 General: Awake, Cooperative, Obese Lungs: Diminished Arturo Bases Cardiovascular: Regular Rhythm, Normal S1, Normal S2 Abdomen: Bowel Sounds Present, Soft Extremities: Moderate RLE Edema, Moderate LLE Edema 06/26/17 05:10: Sodium 148 H, Potassium 3.7, Chloride 97 L, Carbon Dioxide 45.0 H, Anion Gap 6, BUN 44 H, Creatinine 0.90, Est GFR (MDRD) Af Amer 112, Est GFR ( MDRD) Non-Af 92, BUN/Creatinine Ratio 49.1 H, Glucose 148 H, Calcium 9.3 06/26/17 05:10: Phosphorus 5.1 H, Magnesium 2.9 H Rhythm: Sinus rhythm Medical Necessity - Tobacco Use Smoking Status: Current every day smoker Tobacco Use: - - Resume cigarettes but unable to obtain as the patient is sedated Assessment/Plan 1. CAD status post PCI The patient does have a history of underlying CAD. He is undergone previous PCI in the past. At the present time he continues medical management. He is being considered for future repeat diagnostic cardiac catheterization to reassess his coronary/ stent status based on his ongoing cardiovascular issues. This is being concentric once his volume status improves, his respiratory status improves, and he is extubated. 2. Ischemic mediated cardiomyopathy He does have an underlying ischemic mediated cardiomyopathy. His most recent echocardiogram report has been reviewed. At the present time he is continuing medical management as best as tolerated based upon a combination of vital signs, very function, renal function etc. 3. Acute on chronic systolic mediated CHF The patient did present with concerns of acute on chronic systolic mediated CHF. He has been undergoing evaluation and care. This has included IV diuretic therapy. He has had significant diuresis. His clinical status appears to be improving, yet, he has still mechanically intubated and ventilated. Thus, he will continue his medical management. Hopefully with additional diuresis his pulmonary status will continue to be improve and he will be able to be extubated in the near future. 4. Hyperlipidemia He will continue medical therapy as deemed appropriate and able. 5. Hypertension His blood pressures are being followed. His medications are being adjusted during this time as his blood pressures fluctuate. Overall from a cardiac standpoint he will continue medical management. This has included a combination of agents as he is able to tolerate and receive with respect to aspirin, antiplatelet therapy, nitrates, beta-blockers, diuretics, afterload reducing agents, lipid-lowering agents, etc. Hopefully if his clinical status continues to improve, and especially if he is able to be extubated, he can undergo future evaluation with diagnostic cardiac catheterization to reassess his coronary status for the need for further revascularization therapy. This note was generated with [email or web address] software. It may contain incorrect words, spelling, and punctuation that were not noted in checking the note before signing.
[2017-06-26 17:46] LABS: Bedside Glucose 150 mg/dL (70-110)
[2017-06-26 23:46] LABS: Bedside Glucose 192 mg/dL (70-110)
[2017-06-27] VITALS (47 sets, daily range): BP systolic 86–137; BP diastolic 57–88; PULSE 73–92; RESP 12–26; TEMP 36.6–37.1; O2SAT 85–98
[2017-06-27] MEDS: Ipratropium/Albuterol Sulfate 3 ML AMPUL.NEB INHALATION ×4 (00:51→19:00)
--- NOTE | 2017-06-27 05:30 | CPS ---
Pt started SBT on 45% FiO2 but sats were <88%. FiO2 was increased to 50% to maintain sats above 88%
[2017-06-27] MEDS: CHLORHEXIDINE GLUC 2% CLOTH 1 EACH TOWELETTE TOPICAL ×2 (05:46→23:00)
[2017-06-27] MEDS: 0.9% NaCl Peripheral Flush Adult/Peds IV ×2 (05:46→22:35)
[2017-06-27 05:53] LABS: Anion Gap 6 (5-15); BUN 56 mg/dL (7-18); BUN/Creat Ratio 55.4 RATIO (10-20); Calcium,Total 9.4 mg/dL (8.5-10.1); Chloride 101 mmol/L (98-107); Creatinine, Serum 1.01 mg/dL (0.70-1.30); EST Glomerular Filtration Rate 80 mL/min (>60); Est Glom Filt Rate - Afr Amer 97 mL/min (>60); Estimated Creatinine Clearance 86.44 ml/min; Glucose 170 mg/dL (74-106); Potassium 3.6 mmol/L (3.5-5.1); Sodium Level 152 mmol/L (136-145)
[2017-06-27 05:54] LABS: Magnesium 3.1 mg/dL (1.6-2.6); Phosphorus 3.8 mg/dL (2.5-4.9)
[2017-06-27 06:46] LABS: Bedside Glucose 184 mg/dL (70-110)
[2017-06-27] MEDS: Propofol 10MG/Ml 1,000 MG/100 ML Bottle 5.199 MG CONT INF ×3 (07:02→22:32)
[2017-06-27] MEDS: Vital AF 1.2 Cal Liquid 1,000 ML 75 ML GT ×2 (07:03→22:31)
--- NOTE | 2017-06-27 07:24 | PCM.PN.INT ---
Subjective: The patient was seen and examined at the bedside this morning. Events from the last 24 hours have been reviewed. The patient is currently afebrile and hemodynamically stable. The patient again failed his spontaneous breathing trial this morning, with hypoxia noted. In fact, the patient had to be placed on a PEEP of 16 and an FiO2 of 100% due to refractory hypoxia. The patient is currently overall net -17.6 L for the admission. Sodium is up to 152 this morning. BUN has increased to 56. Objective: The patient's most recent lab work, culture data and imaging studies have all been personally reviewed. Blood, urine and sputum cultures have shown no growth to date. Strep and urine Legionella antigens were both negative. Rapid influenza screen was negative. Surface echocardiogram dated June 21, 2017 revealed mild segmental systolic dysfunction with an ejection fraction of 50%. General: - - Currently intubated, sedated and mechanically ventilated. HEENT: Atraumatic, PERRLA, Normocephalic Oral: No Gingival or Mucosal Lesions/ Ulcerations, - - Endotracheal and OG tubes in place Neck: Supple, No Nodes, Trachea Midline Lungs: No rhonchi, No wheeze, No rales, Diminished Cardiovascular: Regular rate, Regular Rhythm, Normal S1, Normal S2, No murmurs Abdomen: Bowel Sounds Present, Soft, Non Tender, Obese Extremities: No clubbing, No cyanosis, Edema Skin: - - No significant change from previous. Musculoskeletal: No Muscle Wasting Lymphatic: No Cervical, Supraclavicular, or Inguinal Adenopathy Neurological: - - No focal neurological deficits. Although sedated, will open eyes and follow simple commands. Vital Signs Temp Pulse Resp BP Pulse Ox 97.8 F 78 18 137/88 H 88 06/27/17 04:00 06/27/17 06:00 06/27/17 06:00 06/27/17 06:00 06/27/17 06:00 Oxygen Delivery Method Mechanical Ventilator Weight: 318 lb 12.615 oz Body Mass Index (BMI) 50.1 Intake and Output for Last 24 Hours 06/25/17 06/26/17 06/27/17 23:59 23:59 23:59 Intake Total 2154.9 / 2154.9 2999.6 / 2999.6 1226.5 / 1226.5 Output Total 4500 / 4500 5025 / 5025 1650 / 1650 Balance -2345.1 / -2345.1 -2025.4 / -2025.4 -423.5 / -423.5 Labs (Last 48 Hours) 06/25/17 06/25/17 06/25/17 05:34 12:13 18:41 Sodium Potassium Chloride Carbon Dioxide Anion Gap BUN Creatinine Estim Creat Clear Calc Est GFR (MDRD) Af Amer Est GFR (MDRD) Non-Af BUN/Creatinine Ratio Glucose Calcium Phosphorus Magnesium POC Glucose 136 H 110 159 H 06/25/17 06/26/17 06/26/17 23:32 05:10 05:10 Sodium 148 H Potassium 3.7 Chloride 97 L Carbon Dioxide 45.0 H Anion Gap 6 BUN 44 H Creatinine 0.90 Estim Creat Clear Calc 97.00 Est GFR (MDRD) Af Amer 112 Est GFR (MDRD) Non-Af 92 BUN/Creatinine Ratio 49.1 H Glucose 148 H Calcium 9.3 Phosphorus 5.1 H Magnesium 2.9 H POC Glucose 175 H 06/26/17 06/26/17 06/26/17 05:12 11:45 17:38 Sodium Potassium Chloride Carbon Dioxide Anion Gap BUN Creatinine Estim Creat Clear Calc Est GFR (MDRD) Af Amer Est GFR (MDRD) Non-Af BUN/Creatinine Ratio Glucose Calcium Phosphorus Magnesium POC Glucose 168 H 159 H 150 H 06/26/17 06/27/17 06/27/17 23:24 05:17 05:24 Sodium 152 H Potassium 3.6 Chloride 101 Carbon Dioxide 45.0 H Anion Gap 6 BUN 56 H Creatinine 1.01 Estim Creat Clear Calc 86.44 Est GFR (MDRD) Af Amer 97 Est GFR (MDRD) Non-Af 80 BUN/Creatinine Ratio 55.4 H Glucose 170 H Calcium 9.4 Phosphorus Magnesium POC Glucose 192 H 184 H 06/27/17 05:24 Sodium Potassium Chloride Carbon Dioxide Anion Gap BUN Creatinine Estim Creat Clear Calc Est GFR (MDRD) Af Amer Est GFR (MDRD) Non-Af BUN/Creatinine Ratio Glucose Calcium Phosphorus 3.8 Magnesium 3.1 H POC Glucose Clinical Impression(s) from Imaging Studies Brain CT 06/20/17 13:13 IMPRESSION: Normal unenhanced CT scan of the brain. Electronically Signed: Akhil Izquierdo MD at 15:15 EDT Tel [phone], Service support , Chest X-Ray 06/20/17 13:15 IMPRESSION: The tip of the endotracheal tube is at 3.5 cm proximal to the byron. Cardiomegaly. Findings suggestive of vascular congestion with infiltrate and/or atelectasis is worse on the right side with thickening of the right minor fissure. Electronically Signed: Akhil Izquierdo MD at 14:01 EDT Tel [phone], Service support , Chest X-Ray 06/25/17 03:30 IMPRESSION: 1. Enteric tube is in appropriate position. 2. Improved aeration of the right lung since the previous study. Persistent airspace disease in the left lung may represent pneumonia. Electronically Signed: Laura Duarte MD at 7:56 EDT Tel , Service support , Chest X-Ray 06/25/17 10:33 IMPRESSION: 1. Enteric tube is in appropriate position. 2. Improved aeration of the right lung since the previous study. Electronically Signed: Katya Wright MD at 12:08 EDT , Service support , Medical Necessity - Tobacco Use Smoking Status: Current every day smoker Tobacco Use: - - Resume cigarettes but unable to obtain as the patient is sedated Assessment/Plan Active and Suspected Problems (Last Reviewed 06/13/17 @ 14:25 by Binta Isaac) Acute respiratory failure with hypoxia and hypercapnia (Acute) Pneumococcal pneumonia (Acute) Metabolic encephalopathy (Acute) Heart failure with reduced ejection fraction (Acute) RECOMMENDATIONS: 1. Start gentle hydration with D5W given rising sodium and BUN. 2. Place patient back on assist control with FiO2 and PEEP support to maintain oxygen saturations at or above 90% 3. Plan for daily paired spontaneous awakening and breathing trials 4. Minimize sedation as tolerated. Goal RASS of -1 to 1. 5. Continue bronchodilators as ordered. 6. Continue tube feeds along with appropriate ICU prophylaxis 7. Mobilize patient as tolerated. IMPRESSIONS: 1. Acute on chronic combined respiratory failure Likely secondary to decompensated heart failure in the setting of outpatient noncompliance. In addition, the patient is supposed to be utilizing BiPAP therapy in his home environment, but is noncompliant. Low clinical index of suspicion for underlying COPD/asthma exacerbation. The patient was initially maintained on a Bumex drip and had a significant amount of diuresis. His BUN and sodium have risen. Therefore, the patient will be placed on a low rate of D5W. Continue to hold on any additional diuretics at this time. Wean FiO2 and PEEP as tolerated. The patient can be transitioned back to assist control mode mechanical ventilation. Will obtain repeat plain film chest x-ray this morning. When the time comes that the patient is appropriate for a trial of extubation, he should be directly transition to BiPAP therapy. 2. Acute on chronic systolic congestive heart failure/history of ischemic cardiomyopathy Continue medical management per cardiology recommendations. 3. Metabolic encephalopathy secondary to #1 Improved at this time. As noted above, recommend conservative use of sedating medications. 4. Diabetes mellitus Continue tube feeds along with sliding scale insulin coverage. 5. Morbid obesity/history of noncompliance/hypertension/seasonal allergies Complicates care, management, recovery and prognosis. Continue current supportive measures as noted above. Physical therapy to work with patient. TIME: 40 minutes of critical care time, independent of procedures, was spent addressing the patient's acute on chronic combined respiratory failure, decompensated heart failure, metabolic encephalopathy, diabetes, morbid obesity, review of all data and collaboration with the care team. ([id number]) Code Visit [id number]: [id number] Critical care first hour
--- NOTE | 2017-06-27 07:26 | RAD_ITS ---
STUDY: X-RAY CHEST REASON FOR EXAM: Male, 57 years old. Shortness of breath. TECHNIQUE: Single AP portable view of the chest. COMPARISON: Comparison is made with prior study dated June 25, 2017. FINDINGS: An endotracheal tube is in situ. The tip is at 6.4 cm proximal to the byron. An enteric tube is seen with tip below the left hemidiaphragm. EKG electrodes are seen. Increasing atelectasis and/or infiltrate at the right lung base with blunting of the right costophrenic angle. Atelectasis and/or early infiltrate at the left lung base. This is unchanged. Blunting of the left prosthetic ankle. Normal size heart. Normal mediastinum and marta. Normal visualized pulmonary arteries. There is atherosclerotic tortuosity of the aortic arch and descending thoracic aorta. There are diffuse degenerative changes of the visualized thoracic spine. Normal visualized ribs, clavicles, and shoulders. There is no demonstrated abnormality of the visualized soft tissue structures of the upper abdomen. RAD/Chest 1 View (Portable) IMPRESSION: Increasing right basilar atelectasis and/or infiltrate. The remaining examination is unchanged. Electronically Signed: Akhil Izquierdo MD at 12:57 EDT Tel [phone], Service support ,
--- NOTE | 2017-06-27 07:33 | PN_ITS ---
Subjective: The patient was seen and examined at the bedside this morning. Events from the last 24 hours have been reviewed. The patient is currently afebrile and hemodynamically stable. The patient again failed his spontaneous breathing trial this morning, with hypoxia noted. In fact, the patient had to be placed on a PEEP of 16 and an FiO2 of 100% due to refractory hypoxia. The patient is currently overall net -17.6 L for the admission. Sodium is up to 152 this morning. BUN has increased to 56. Objective: The patient's most recent lab work, culture data and imaging studies have all been personally reviewed. Blood, urine and sputum cultures have shown no growth to date. Strep and urine Legionella antigens were both negative. Rapid influenza screen was negative. Surface echocardiogram dated June 21, 2017 revealed mild segmental systolic dysfunction with an ejection fraction of 50%. General: - - Currently intubated, sedated and mechanically ventilated. HEENT: Atraumatic, PERRLA, Normocephalic Oral: No Gingival or Mucosal Lesions/ Ulcerations, - - Endotracheal and OG tubes in place Neck: Supple, No Nodes, Trachea Midline Lungs: No rhonchi, No wheeze, No rales, Diminished Cardiovascular: Regular rate, Regular Rhythm, Normal S1, Normal S2, No murmurs Abdomen: Bowel Sounds Present, Soft, Non Tender, Obese Extremities: No clubbing, No cyanosis, Edema Skin: - - No significant change from previous. Musculoskeletal: No Muscle Wasting Lymphatic: No Cervical, Supraclavicular, or Inguinal Adenopathy Neurological: - - No focal neurological deficits. Although sedated, will open eyes and follow simple commands. Vital Signs Temp Pulse Resp BP Pulse Ox 97.8 F 78 18 137/88 H 88 06/27/17 04:00 06/27/17 06:00 06/27/17 06:00 06/27/17 06:00 06/27/17 06:00 Oxygen Delivery Method Mechanical Ventilator Weight: 318 lb 12.615 oz Body Mass Index (BMI) 50.1 Intake and Output for Last 24 Hours 06/25/17 06/26/17 06/27/17 23:59 23:59 23:59 Intake Total 2154.9 / 2154.9 2999.6 / 2999.6 1226.5 / 1226.5 Output Total 4500 / 4500 5025 / 5025 1650 / 1650 Balance -2345.1 / -2345.1 -2025.4 / -2025.4 -423.5 / -423.5 Labs (Last 48 Hours) 06/25/17 06/25/17 06/25/17 05:34 12:13 18:41 Sodium Potassium Chloride Carbon Dioxide Anion Gap BUN Creatinine Estim Creat Clear Calc Est GFR (MDRD) Af Amer Est GFR (MDRD) Non-Af BUN/Creatinine Ratio Glucose Calcium Phosphorus Magnesium POC Glucose 136 H 110 159 H 06/25/17 06/26/17 06/26/17 23:32 05:10 05:10 Sodium 148 H Potassium 3.7 Chloride 97 L Carbon Dioxide 45.0 H Anion Gap 6 BUN 44 H Creatinine 0.90 Estim Creat Clear Calc 97.00 Est GFR (MDRD) Af Amer 112 Est GFR (MDRD) Non-Af 92 BUN/Creatinine Ratio 49.1 H Glucose 148 H Calcium 9.3 Phosphorus 5.1 H Magnesium 2.9 H POC Glucose 175 H 06/26/17 06/26/17 06/26/17 05:12 11:45 17:38 Sodium Potassium Chloride Carbon Dioxide Anion Gap BUN Creatinine Estim Creat Clear Calc Est GFR (MDRD) Af Amer Est GFR (MDRD) Non-Af BUN/Creatinine Ratio Glucose Calcium Phosphorus Magnesium POC Glucose 168 H 159 H 150 H 06/26/17 06/27/17 06/27/17 23:24 05:17 05:24 Sodium 152 H Potassium 3.6 Chloride 101 Carbon Dioxide 45.0 H Anion Gap 6 BUN 56 H Creatinine 1.01 Estim Creat Clear Calc 86.44 Est GFR (MDRD) Af Amer 97 Est GFR (MDRD) Non-Af 80 BUN/Creatinine Ratio 55.4 H Glucose 170 H Calcium 9.4 Phosphorus Magnesium POC Glucose 192 H 184 H 06/27/17 05:24 Sodium Potassium Chloride Carbon Dioxide Anion Gap BUN Creatinine Estim Creat Clear Calc Est GFR (MDRD) Af Amer Est GFR (MDRD) Non-Af BUN/Creatinine Ratio Glucose Calcium Phosphorus 3.8 Magnesium 3.1 H POC Glucose Clinical Impression(s) from Imaging Studies Brain CT 06/20/17 13:13 IMPRESSION: Normal unenhanced CT scan of the brain. Electronically Signed: Akhil Izquierdo MD at 15:15 EDT Tel [phone], Service support , Chest X-Ray 06/20/17 13:15 IMPRESSION: The tip of the endotracheal tube is at 3.5 cm proximal to the byron. Cardiomegaly. Findings suggestive of vascular congestion with infiltrate and/or atelectasis is worse on the right side with thickening of the right minor fissure. Electronically Signed: Akhil Izquierdo MD at 14:01 EDT Tel [phone], Service support , Chest X-Ray 06/25/17 03:30 IMPRESSION: 1. Enteric tube is in appropriate position. 2. Improved aeration of the right lung since the previous study. Persistent airspace disease in the left lung may represent pneumonia. Electronically Signed: Laura Duarte MD at 7:56 EDT Tel , Service support , Chest X-Ray 06/25/17 10:33 IMPRESSION: 1. Enteric tube is in appropriate position. 2. Improved aeration of the right lung since the previous study. Electronically Signed: Katya Wright MD at 12:08 EDT , Service support , Medical Necessity - Tobacco Use Smoking Status: Current every day smoker Tobacco Use: - - Resume cigarettes but unable to obtain as the patient is sedated Assessment/Plan Active and Suspected Problems (Last Reviewed 06/13/17 @ 14:25 by Binta Isaac) Acute respiratory failure with hypoxia and hypercapnia (Acute) Pneumococcal pneumonia (Acute) Metabolic encephalopathy (Acute) Heart failure with reduced ejection fraction (Acute) RECOMMENDATIONS: 1. Start gentle hydration with D5W given rising sodium and BUN. 2. Place patient back on assist control with FiO2 and PEEP support to maintain oxygen saturations at or above 90% 3. Plan for daily paired spontaneous awakening and breathing trials 4. Minimize sedation as tolerated. Goal RASS of -1 to 1. 5. Continue bronchodilators as ordered. 6. Continue tube feeds along with appropriate ICU prophylaxis 7. Mobilize patient as tolerated. IMPRESSIONS: 1. Acute on chronic combined respiratory failure Likely secondary to decompensated heart failure in the setting of outpatient noncompliance. In addition, the patient is supposed to be utilizing BiPAP therapy in his home environment, but is noncompliant. Low clinical index of suspicion for underlying COPD/asthma exacerbation. The patient was initially maintained on a Bumex drip and had a significant amount of diuresis. His BUN and sodium have risen. Therefore, the patient will be placed on a low rate of D5W. Continue to hold on any additional diuretics at this time. Wean FiO2 and PEEP as tolerated. The patient can be transitioned back to assist control mode mechanical ventilation. Will obtain repeat plain film chest x-ray this morning. When the time comes that the patient is appropriate for a trial of extubation, he should be directly transition to BiPAP therapy. 2. Acute on chronic systolic congestive heart failure/history of ischemic cardiomyopathy Continue medical management per cardiology recommendations. 3. Metabolic encephalopathy secondary to #1 Improved at this time. As noted above, recommend conservative use of sedating medications. 4. Diabetes mellitus Continue tube feeds along with sliding scale insulin coverage. 5. Morbid obesity/history of noncompliance/hypertension/seasonal allergies Complicates care, management, recovery and prognosis. Continue current supportive measures as noted above. Physical therapy to work with patient. TIME: 40 minutes of critical care time, independent of procedures, was spent addressing the patient's acute on chronic combined respiratory failure, decompensated heart failure, metabolic encephalopathy, diabetes, morbid obesity , review of all data and collaboration with the care team. ([id number]) Code Visit [id number]: [id number] Critical care first hour
--- NOTE | 2017-06-27 08:02 | CPS ---
PT switched back to AC vent settings of 12 450 50% +8 after continued desaturations on spontaneous breathing settings of PS 10 Peep of 10 50% FiO2, Peep increased to 16 and FiO2 increased to 100% per Dr. Denny to keep sat's between 88-92, will wean peep and FiO2 as tolerated, nursing aware.
[2017-06-27] MEDS: Aspirin 81 MG TAB.CHEW GT (08:40)
[2017-06-27] MEDS: Carvedilol 3.125 MG TABLET GT ×2 (08:40→22:33)
[2017-06-27] MEDS: Losartan Potassium 25 MG Tablet GT (08:40)
[2017-06-27] MEDS: Famotidine 20 MG Tablet GT ×2 (08:40→22:35)
[2017-06-27] MEDS: Enoxaparin 40 MG/0.4 ML Syringe SC (08:40)
[2017-06-27] MEDS: Nystatin Powder 15gm Bottle 1 APPLIC TOPICAL ×2 (08:41→22:34)
[2017-06-27] MEDS: Clopidogrel Bisulfate 75 MG Tablet GT (08:41)
[2017-06-27] MEDS: Chlorhexidine 15 ML PO ×2 (08:49→22:33)
[2017-06-27 12:00] LABS: Bedside Glucose 182 mg/dL (70-110)
--- NOTE | 2017-06-27 12:16 | PN.CARD_ITS ---
Subjectve: Patient seen and examined. Patient still intubated on propofol. Diuresing nicely approximately 17 L since admission. Has lost approximately 40 pounds at least in fluid and yet has had difficulty with weaning on a daily basis with high FiO2 requirements and high PEEP requirements. Objective: Vital Signs Temp Pulse Resp BP Pulse Ox 98.8 F 79 15 127/83 H 92 06/27/17 10:00 06/27/17 11:51 06/27/17 11:00 06/27/17 11:00 06/27/17 11:00 Oxygen Delivery Method Mechanical Ventilator Weight: 318 lb 12.615 oz Body Mass Index (BMI) 50.1 Intake and Output for Last 24 Hours 06/25/17 06/26/17 06/27/17 23:59 23:59 23:59 Intake Total 2154.9 / 2154.9 2999.6 / 2999.6 1226.5 / 1226.5 Output Total 4500 / 4500 5025 / 5025 1650 / 1650 Balance -2345.1 / -2345.1 -2025.4 / -2025.4 -423.5 / -423.5 General: Awake, Alert, Oriented x 3 HEENT: PERRL, EOMI, Sclera Non Icteric Neck: Supple, Good ROM, No Lymph Node Enlargement Lungs: Clear to auscultation Cardiovascular: Regular Rhythm, Normal S1, Normal S2, No Murmurs, No Rubs, No Gallops Vascular: No Carotid Bruits, Normal Femoral Pulses, Normal Radial Pulses, Normal Dorsalis Pedal Pulse, Normal Posterior Tibial Pulses Abdomen: Bowel Sounds Present, Soft, Non Tender, No HSM, No Organomegaly Extremities: No Cyanosis, No Clubbing, No edema Neurological: No Focal Motor or Sensory Deficit 06/27/17 05:24: Sodium 152 H, Potassium 3.6, Chloride 101, Carbon Dioxide 45.0 H , Anion Gap 6, BUN 56 H, Creatinine 1.01, Est GFR (MDRD) Af Amer 97, Est GFR ( MDRD) Non-Af 80, BUN/Creatinine Ratio 55.4 H, Glucose 170 H, Calcium 9.4 06/27/17 05:24: Phosphorus 3.8, Magnesium 3.1 H Rhythm: EKG: ECHO: Stress Test: Cardiac Cath: PCI: CT Surgery: Holter monitor: EPS: PPM: CXR: Chest CT Scan: Medical Necessity - Tobacco Use Smoking Status: Current every day smoker Tobacco Use: - - Resume cigarettes but unable to obtain as the patient is sedated Assessment/Plan 1. Congestive heart failure: The patient's chest x-ray suggest pulmonary vascular redistribution, but there appears to be a density in the right upper lobe possibly due to aspiration or pneumonia. Patient also has evidence of anasarca with significant edema in his legs, face and hands. He was found with salty foods nearby, suggesting he has had dietary indiscretion with increased salt and water intake. Patient has known coronary artery disease, and ischemic cardiomyopathy, and is undetermined whether he was compliant with his medicines as there are no family representatives to clarify his medical condition at home. Given his presentation, it is most likely has a CHF exacerbations possibly superimposed on a pneumonia. Patient has been diuresing well on a Bumex drip over the last several days since admission, and has lost approximately 17 L negative but is still having difficulty with weaning due to high FiO2 requirements and high PEEP requirements. As previously mentioned I recommended a repeat left heart catheterization now that he has approaching his dry weight to determine if his coronary anatomy may be contributing to his difficulty to wean. I have explained the risks/benefits to both the patient as well as his aunt, as well as over the phone with his sister who is the closest living relative other than his demented father. The risks/benefits of the procedure were thoroughly explained to the patient his aunt, and his sister over the phone with specific attention to lack of on-site surgical backup and informed consent was obtained. We will proceed with left heart catheterization while the patient is intubated tomorrow morning 06/28/17. The patient has no significant coronary disease that is contributing to his failure to wean, he will need to continue diuresis until his lungs are to the point where he can be successfully extubated or he will need to be considered for tracheostomy as a bridge to get him off the ventilator. His echocardiogram shows his EF is approximately 50% which is consistent with his previous ejection fraction is based on recent stress testing. He has known coronary disease of his LAD requiring redo stenting for in-stent restenosis, and known ectatic circumflex disease which had no significant ischemia by stress testing in the recent past. His troponins are negative. At this point we will hold off on catheterization unless and until the patient is having difficulty weaning from the ventilator. Would recommend continuing baby aspirin and Plavix going forward. In addition recommend continuing Cozaar 50 mg p.o. daily and cutting his Coreg in half to 3.125 mg p.o. twice daily until he is through his CHF exacerbation, at which time we will increase it back to 6.25 mg twice daily assuming he is tolerating it. Would recommend maximum concentration of all medications and a 1500 cc fluid restriction. 2. Right upper lobe infiltrate: Patient appears to have a right upper lobe infiltrate by chest x-ray by my review and confirmed by radiology. Continue antibiotic therapy per protocol. 3. Hyperlipidemia: Given his coronary history and diabetes history requires LDL reduction of less than 70. Continue Lipitor. 4. Thank you very much for the opportunity to participate in the cardiac care of your patient. Oral consent obtained over the phone with the patient's sister , witnessed by nurse Bledsoe. Code Visit Inpatient E&M: 06277 Subs Hosp L2
--- NOTE | 2017-06-27 14:50 | PCM.PROGNOTE ---
Patient Problems: Active and Suspected Problems (Last Reviewed 06/13/17 @ 14:25 by Binta Isaac) Acute respiratory failure with hypoxia and hypercapnia (Acute) Pneumococcal pneumonia (Acute) Metabolic encephalopathy (Acute) Heart failure with reduced ejection fraction (Acute) Subjective: Patient was seen and examined today, he remains on the ventilator at this time, I talked briefly with pulmonary medicine about his care. It appears that cardiology is going to proceed with a heart catheterization tomorrow. - Physical Exam General: Alert, Oriented x3, Cooperative, No apparent distress, Well developed HEENT: Atraumatic, PERRLA, EOMI, Normocephalic Oral: Moist Mucosa Neck: Supple, No JVD, Negative Carotid Bruits, No Nuchal Rigidity, Trachea Midline, Thyroid Normal Size and Texture Lungs: Clear to auscultation, Normal air movement, No rhonchi, No wheeze, No rales Cardiovascular: Regular rate, Regular Rhythm, Normal S1, Normal S2, No murmurs, No Ectopic Activity, PMI Normal, No rub noted, No Gallop Abdomen: Bowel Sounds Present, Soft, Non Tender Extremities: No clubbing, No cyanosis, No edema, Capillary Refill Less than 3 Seconds Skin: No rashes, No breakdown Musculoskeletal: No Tenderness to Palpation of Joints or Extremities Neurological: Cranial nerves II-XII grossly intact, Neuro grossly intact, Sensory exam intact to light touch and pain, Coordination normal Psych/Mental Status: - - He is alert and on the ventilator at this time Vital Signs Temp Pulse Resp BP Pulse Ox 98.0 F 83 17 91/60 93 06/27/17 12:00 06/27/17 14:00 06/27/17 14:00 06/27/17 14:00 06/27/17 14:00 Oxygen Delivery Method Mechanical Ventilator Weight: 144.6 kg Body Mass Index (BMI) 50.1 Intake and Output for Last 24 Hours 06/25/17 06/26/17 06/27/17 23:59 23:59 23:59 Intake Total 2154.9 / 2154.9 2999.6 / 2999.6 1226.5 / 1226.5 Output Total 4500 / 4500 5025 / 5025 1650 / 1650 Balance -2345.1 / -2345.1 -2025.4 / -2025.4 -423.5 / -423.5 Laboratory Tests Past 24 Hrs 06/27/17 06/27/17 05:24 05:24 Sodium 152 H Potassium 3.6 Chloride 101 Carbon Dioxide 45.0 H Anion Gap 6 BUN 56 H Creatinine 1.01 Estim Creat Clear Calc 86.44 Est GFR (MDRD) Af Amer 97 Est GFR (MDRD) Non-Af 80 BUN/Creatinine Ratio 55.4 H Glucose 170 H Calcium 9.4 Phosphorus 3.8 Magnesium 3.1 H POC Glucose 06/27/17 06/27/17 06/26/17 11:56 05:17 23:24 POC Glucose 182 H 184 H 192 H 06/26/17 17:38 POC Glucose 150 H Medical Necessity - Tobacco Use Smoking Status: Current every day smoker Tobacco Use: - - Resume cigarettes but unable to obtain as the patient is sedated Assessment/Plan Active and Suspected Problems (Last Reviewed 06/13/17 @ 14:25 by Binta Isaac) Acute respiratory failure with hypoxia and hypercapnia (Acute) Pneumococcal pneumonia (Acute) Metabolic encephalopathy (Acute) Heart failure with reduced ejection fraction (Acute) #1 combined respiratory failure secondary to acute diastolic congestive heart failure- pulmonary medicine is managing his ventilator, cardiology is planning a heart catheterization tomorrow #2 acute diastolic congestive heart failure-EF 50%, cardiology is participating in his care #3 chronic obstructive pulmonary disease #4 morbid obesity #5 type 2 diabetes #6 coronary artery disease #7 obstructive sleep apnea Code Visit Inpatient E&M: 62170 Subs Hosp L2
[2017-06-27 17:51] LABS: Bedside Glucose 157 mg/dL (70-110)
[2017-06-28] VITALS (50 sets, daily range): BP systolic 80–102; BP diastolic 48–72; PULSE 61–83; RESP 12–21; TEMP 36.2–36.8; O2SAT 87–93
[2017-06-28] MEDS: Propofol 10MG/Ml 1,000 MG/100 ML Bottle 5.199 MG CONT INF ×5 (00:24→22:21)
[2017-06-28 00:30] LABS: Bedside Glucose 185 mg/dL (70-110)
[2017-06-28] MEDS: Ipratropium/Albuterol Sulfate 3 ML AMPUL.NEB INHALATION ×4 (00:59→18:28)
[2017-06-28 04:09] LABS: Absolute Neutrophil Count 6.7 X10^3/uL (2.0-7.7); Basophil# 0.03 X10^3/uL; Basophil% 0.3 % (0-1); Eosinophil# 0.45 X10^3/uL; Eosinophils% 4.6 % (0-5); Hematocrit 46.5 % (40-54); Hemoglobin 13.2 g/dl (13.0-16.5); Lymphocyte % 16.4 % (19-41); Mean Corp Hgb Conc 28.4 g/gl (32-36); Mean Corpuscular Hgb 26.2 pg (27.0-32.0); Mean Corpuscular Volume 92.3 fL (80-94); Mean Platelet Vol. 10.9 fl (6.2-12.0); Monocyte# 0.98 X10^3/uL; Neutrophil # 6.67 X10^3/uL (2.7-7.7); Neutrophil % 68.4 % (47-70); POSITIVE COUNT NO; POSITIVE DIFFERENTIAL NO; POSITIVE MORPHOLOGY NO; Platelet Count 167 K/mm3 (150-450); RBC Distribution Width CV 16.2 % (11.6-14.6); RBC Distribution Width SD 53.5 fl (35.1-43.9); Red Blood Count 5.04 M/mm3 (4.6-6.2); White Blood Count 9.8 K/mm3 (4.4-11.0)
[2017-06-28 04:14] LABS: International Normalized Ratio 1.1; Prothrombin Time (Protime)PT. 13.9 SECONDS (11.7-14.9)
[2017-06-28 04:15] LABS: Partial Thromboplast Time 26.7 Seconds (24.1-36.2)
[2017-06-28 05:21] LABS: BUN 72 mg/dL (7-18); BUN/Creat Ratio 66.7 RATIO (10-20); Calcium,Total 9.2 mg/dL (8.5-10.1); Carbon Dioxide > 45.0 mmol/L (21.0-32.0); Chloride 97 mmol/L (98-107); Creatinine, Serum 1.08 mg/dL (0.70-1.30); EST Glomerular Filtration Rate 74 mL/min (>60); Est Glom Filt Rate - Afr Amer 90 mL/min (>60); Estimated Creatinine Clearance 80.83 ml/min; Glucose 184 mg/dL (74-106); Potassium 3.3 mmol/L (3.5-5.1); Sodium Level 147 mmol/L (136-145)
[2017-06-28] MEDS: 0.9% NaCl Peripheral Flush Adult/Peds IV ×3 (05:27→23:04)
--- NOTE | 2017-06-28 05:55 | EKG12_ITS ---
Test Reason : AM EKG Blood Pressure : / mmHG Vent. Rate : 067 BPM Atrial Rate : 067 BPM P-R Int : 166 ms QRS Dur : 094 ms QT Int : 382 ms P-R-T Axes : 050 079 019 degrees QTc Int : 403 ms Normal sinus rhythm Low voltage QRS Poor R wave progression Anterior septal WA, age undetermined, cannot be excluded Borderline ECG Confirmed by CATRACHITO CABA, DEE ([id number]), film editor SELINA TSANG ([id number]) on 07/06/2017 3:33:26 PM Referred By: Confirmed By:DEE WINSTON MD
[2017-06-28 06:16] LABS: Bedside Glucose 184 mg/dL (70-110)
--- NOTE | 2017-06-28 06:47 | PN_ITS ---
Subjective: The patient was seen and examined at the bedside this morning. Events from the last 24 hours have been reviewed. The patient is currently afebrile with low normal blood pressure parameters. FiO2 requirement remains at 55%. The patient again failed his spontaneous breathing trial. However, there are tentative plans to proceed with cardiac catheterization this morning. Plain film chest x-ray obtained yesterday did reveal what appeared to be an airspace opacity in the right lung base along with blunting of the costophrenic angles. The patient's endotracheal tube was also high riding. Therefore, his endotracheal tube was advanced this morning. Sodium level has improved. However, the patient's serum bicarbonate has increased and his potassium is now 3.3. The patient is currently overall net -14.4 L for the admission. Objective: The patient's most recent lab work, culture data and imaging studies have all been personally reviewed. Blood, urine and sputum cultures have shown no growth to date. Strep and urine Legionella antigens were both negative. Rapid influenza screen was negative. Surface echocardiogram dated June 21, 2017 revealed mild segmental systolic dysfunction with an ejection fraction of 50%. General: - - Remains intubated, sedated and mechanically ventilated. HEENT: Atraumatic, PERRLA, Normocephalic Oral: No Gingival or Mucosal Lesions/ Ulcerations, - - Endotracheal and OG tubes remain in place. Neck: Supple, No Nodes, Trachea Midline Lungs: No rhonchi, No wheeze, No rales, Diminished Cardiovascular: Regular rate, Regular Rhythm, Normal S1, Normal S2, No murmurs, No rub noted, No Gallop Abdomen: Bowel Sounds Present, Soft, Non Tender, Obese Extremities: No clubbing, No cyanosis, - - Trace pedal edema Skin: - - No significant change from previous. Musculoskeletal: No Muscle Wasting Lymphatic: No Cervical, Supraclavicular, or Inguinal Adenopathy Neurological: - - No focal neurological deficits. Attempts to move extremities spontaneously. Will open eyes and follow simple commands. Vital Signs Temp Pulse Resp BP Pulse Ox 98.0 F 73 12 94/66 91 06/28/17 05:00 06/28/17 06:00 06/28/17 06:00 06/28/17 06:00 06/28/17 06:00 Oxygen Delivery Method Mechanical Ventilator Weight: 319 lb 14.252 oz Body Mass Index (BMI) 50.1 Intake and Output for Last 24 Hours 06/26/17 06/27/17 06/28/17 23:59 23:59 23:59 Intake Total 2999.6 / 2999.6 6331.0 / 6331.0 549 / 549 Output Total 5025 / 5025 4000 / 4000 125 / 125 Balance -2025.4 / -2025.4 2331.0 / 2331.0 424 / 424 Labs (Last 48 Hours) 06/26/17 06/26/17 06/26/17 05:10 05:12 11:45 WBC RBC Hgb Hct MCV MCH MCHC RDW RDW Differential Plt Count MPV Immature Gran % (Auto) Neut % (Auto) Lymph % (Auto) Crook % (Auto) Eos % (Auto) Baso % (Auto) Absolute Neuts (auto) Absolute Lymphs (auto) Total Counted PT INR APTT Sodium 148 H Potassium 3.7 Chloride 97 L Carbon Dioxide 45.0 H Anion Gap 6 BUN 44 H Creatinine 0.90 Estim Creat Clear Calc 97.00 Est GFR (MDRD) Af Amer 112 Est GFR (MDRD) Non-Af 92 BUN/Creatinine Ratio 49.1 H Glucose 148 H Calcium 9.3 Phosphorus Magnesium POC Glucose 168 H 159 H 06/26/17 06/26/17 06/27/17 17:38 23:24 05:17 WBC RBC Hgb Hct MCV MCH MCHC RDW RDW Differential Plt Count MPV Immature Gran % (Auto) Neut % (Auto) Lymph % (Auto) Crook % (Auto) Eos % (Auto) Baso % (Auto) Absolute Neuts (auto) Absolute Lymphs (auto) Total Counted PT INR APTT Sodium Potassium Chloride Carbon Dioxide Anion Gap BUN Creatinine Estim Creat Clear Calc Est GFR (MDRD) Af Amer Est GFR (MDRD) Non-Af BUN/Creatinine Ratio Glucose Calcium Phosphorus Magnesium POC Glucose 150 H 192 H 184 H 06/27/17 06/27/17 06/27/17 05:24 05:24 11:56 WBC RBC Hgb Hct MCV MCH MCHC RDW RDW Differential Plt Count MPV Immature Gran % (Auto) Neut % (Auto) Lymph % (Auto) Crook % (Auto) Eos % (Auto) Baso % (Auto) Absolute Neuts (auto) Absolute Lymphs (auto) Total Counted PT INR APTT Sodium 152 H Potassium 3.6 Chloride 101 Carbon Dioxide 45.0 H Anion Gap 6 BUN 56 H Creatinine 1.01 Estim Creat Clear Calc 86.44 Est GFR (MDRD) Af Amer 97 Est GFR (MDRD) Non-Af 80 BUN/Creatinine Ratio 55.4 H Glucose 170 H Calcium 9.4 Phosphorus 3.8 Magnesium 3.1 H POC Glucose 182 H 06/27/17 06/28/17 06/28/17 17:45 00:22 04:00 WBC 9.8 RBC 5.04 Hgb 13.2 Hct 46.5 MCV 92.3 MCH 26.2 L MCHC 28.4 L RDW 16.2 H RDW Differential 53.5 H Plt Count 167 MPV 10.9 Immature Gran % (Auto) 0.300 Neut % (Auto) 68.4 Lymph % (Auto) 16.4 L Crook % (Auto) 10.0 Eos % (Auto) 4.6 Baso % (Auto) 0.3 Absolute Neuts (auto) 6.7 Absolute Lymphs (auto) 1.60 Total Counted Not Reportable PT INR APTT Sodium Potassium Chloride Carbon Dioxide Anion Gap BUN Creatinine Estim Creat Clear Calc Est GFR (MDRD) Af Amer Est GFR (MDRD) Non-Af BUN/Creatinine Ratio Glucose Calcium Phosphorus Magnesium POC Glucose 157 H 185 H 06/28/17 06/28/17 06/28/17 04:00 04:00 05:25 WBC RBC Hgb Hct MCV MCH MCHC RDW RDW Differential Plt Count MPV Immature Gran % (Auto) Neut % (Auto) Lymph % (Auto) Crook % (Auto) Eos % (Auto) Baso % (Auto) Absolute Neuts (auto) Absolute Lymphs (auto) Total Counted PT 13.9 INR 1.1 APTT 26.7 Sodium 147 H Potassium 3.3 L Chloride 97 L Carbon Dioxide > 45.0 H* Anion Gap TNP BUN 72 H Creatinine 1.08 Estim Creat Clear Calc 80.83 Est GFR (MDRD) Af Amer 90 Est GFR (MDRD) Non-Af 74 BUN/Creatinine Ratio 66.7 H Glucose 184 H Calcium 9.2 Phosphorus Magnesium POC Glucose 184 H Clinical Impression(s) from Imaging Studies Brain CT 06/20/17 13:13 IMPRESSION: Normal unenhanced CT scan of the brain. Electronically Signed: Akhil Izquierdo MD at 15:15 EDT Tel [phone], Service support , Chest X-Ray 06/20/17 13:15 IMPRESSION: The tip of the endotracheal tube is at 3.5 cm proximal to the byron. Cardiomegaly. Findings suggestive of vascular congestion with infiltrate and/or atelectasis is worse on the right side with thickening of the right minor fissure. Electronically Signed: Akhil Izquierdo MD at 14:01 EDT Tel [phone], Service support , Chest X-Ray 06/25/17 03:30 IMPRESSION: 1. Enteric tube is in appropriate position. 2. Improved aeration of the right lung since the previous study. Persistent airspace disease in the left lung may represent pneumonia. Electronically Signed: Laura Duarte MD at 7:56 EDT Tel , Service support , Chest X-Ray 06/25/17 10:33 IMPRESSION: 1. Enteric tube is in appropriate position. 2. Improved aeration of the right lung since the previous study. Electronically Signed: Katya Wright MD at 12:08 EDT , Service support , Chest X-Ray 06/27/17 07:26 IMPRESSION: Increasing right basilar atelectasis and/or infiltrate. The remaining examination is unchanged. Electronically Signed: Akhil Izquierdo MD at 12:57 EDT Tel [phone], Service support , Medical Necessity - Tobacco Use Smoking Status: Current every day smoker Tobacco Use: - - Resume cigarettes but unable to obtain as the patient is sedated Assessment/Plan Active and Suspected Problems (Last Reviewed 06/13/17 @ 14:25 by Binta Isaac) Acute respiratory failure with hypoxia and hypercapnia (Acute) Pneumococcal pneumonia (Acute) Metabolic encephalopathy (Acute) Heart failure with reduced ejection fraction (Acute) RECOMMENDATIONS: 1. Continue gentle hydration with D5W given rising sodium and BUN, and concerns for overdiuresis. 2. Obtain arterial blood gas 3. Obtain repeat plain film chest x-ray following endotracheal tube repositioning 4. Wean FiO2 and PEEP as tolerated 5. Obtain and send repeat sputum culture 6. Start empiric Zosyn therapy, pending infectious workup. 7. Recheck BNP and serum magnesium level 8. Plan for daily paired spontaneous awakening and breathing trials 9. Minimize sedation as tolerated. Goal RASS of -1 to 1. 10. Continue tube feeds along with appropriate ICU prophylaxis IMPRESSIONS: 1. Acute on chronic combined respiratory failure Likely secondary to decompensated heart failure in the setting of outpatient noncompliance and possible HCAP. In addition, the patient is supposed to be utilizing BiPAP therapy in his home environment, but is noncompliant. The patient was initially maintained on a Bumex drip and had a significant amount of diuresis. His BUN and sodium have risen. Therefore, the patient will be continued on a low rate of D5W. Continue to hold on any additional diuretics at this time. Wean FiO2 and PEEP as tolerated. A repeat sputum culture will be sent and Zosyn will be continued, pending finalized culture results. The patient's endotracheal tube has been repositioned and a follow-up plain film chest x-ray will be obtained. Given the amount of time that the patient is already been on mechanical ventilation, we will plan for a trial of extubation at some point in the next 24-48 hours. If the patient fails his attempts at extubation, would need to consider potential tracheostomy placement at that time. When the time comes that the patient is appropriate for a trial of extubation, he should be directly transition to BiPAP therapy. 2. Acute on chronic systolic congestive heart failure/history of ischemic cardiomyopathy Continue medical management per cardiology recommendations. Continue to hold diuretics for now. 3. Hypernatremia/hypokalemia/metabolic alkalosis Concerns for initial overdiuresis. The patient is being maintained on gentle IV fluid hydration with D5W. 4. Diabetes mellitus Continue tube feeds along with sliding scale insulin coverage. 5. Morbid obesity/history of noncompliance/hypertension/seasonal allergies Complicates care, management, recovery and prognosis. Continue current supportive measures as noted above. Physical therapy to work with patient. TIME: 45 minutes of critical care time, independent of procedures, was spent addressing the patient's acute on chronic combined respiratory failure, decompensated heart failure, metabolic encephalopathy, diabetes, morbid obesity , review of all data and collaboration with the care team. ([id number]) Code Visit 9xxxx: [id number] Critical care first hour
--- NOTE | 2017-06-28 07:02 | RAD_ITS ---
STUDY: X-RAY CHEST REASON FOR EXAM: Male, 57 years old. Endotracheal tube repositioning. TECHNIQUE: Single AP portable view of the chest. COMPARISON: Comparison is made with prior study dated June 27, 2017. FINDINGS: The tip of the endotracheal tube is at 5.3 cm proximal to the byron. The tip of the enteric tube is below the left hemidiaphragm. EKG electrodes are seen. Improved aeration of the right lung base. Slight increase in left pleural effusion with underlying left basilar atelectasis. Normal size heart. Normal mediastinum and marta. Normal visualized pulmonary arteries. There is atherosclerotic tortuosity of the aortic arch and descending thoracic aorta. Normal visualized thoracic spine. Normal visualized ribs, clavicles, and shoulders. There is no demonstrated abnormality of the visualized soft tissue structures of the upper abdomen. RAD/Chest 1 View (Portable) IMPRESSION: The tip of the endotracheal tube is at 5.3 cm proximal to the byron. Slight increase in the blunting of the left costophrenic angle. Electronically Signed: Akhil Izquierdo MD at 11:01 EDT Tel [phone], Service support ,
[2017-06-28 07:27] LABS: Magnesium 3.7 mg/dL (1.6-2.6)
[2017-06-28 08:14] LABS: BNP,B-Type NATRIURETIC PEPTIDE 35.7 pg/mL (0-100)
[2017-06-28] MEDS: Aspirin 81 MG TAB.CHEW GT (08:59)
[2017-06-28] MEDS: Carvedilol 3.125 MG TABLET GT (08:59)
[2017-06-28] MEDS: Clopidogrel Bisulfate 75 MG Tablet GT (09:00)
[2017-06-28] MEDS: Losartan Potassium 25 MG Tablet GT (09:01)
[2017-06-28] MEDS: Chlorhexidine 15 ML PO ×2 (09:12→22:23)
--- NOTE | 2017-06-28 09:27 | CASEMGMT ---
RN CM Note. Pt with history of Diabetes. ? noncompliance. Has [facility]- if new script needed for supplies can be filled @ local pharmacy. SW consult for coping issues. Per physician pt is not interactive with staff, remains in darkened room. MUKESH Johnson updated. Sarah ARCEN RN ACM
[2017-06-28] MEDS: DiphenhydrAMINE 50 MG/ML Syringe 25 MG IV (09:30)
--- NOTE | 2017-06-28 09:45 | NURSING ---
Patient left unit for heart cath
--- NOTE | 2017-06-28 11:16 | CL.I_ITS ---
Patient Name: JONES THOMAS Study Date: 06/28/2017 Performing: Robert Li MD Ht: 72.04 inches 183 cm : 1960 Wt: 341.72 lbs 155 kg Age: 57 Gender: male BSA: 2.68 PROCEDURE(S) PERFORMED BR72-ARU/COR/LV [id number], CORONARY OR GRAFT, INITIAL VESSEL [id number] W OR WO PTCA, SINGLE CORONARY ARTERY CLINICAL PROFILE AND CO-MORBIDITIES Indications: ACS > 24 hrs, Resuscitated Cardiac Arrest, Stable Known CAD, Suspected CAD, Cardiomy opathy, LV Dysfunction, Failure to wean from vent; questionable cardiac ischemia during weaning Heart Failure: NYHA Class: 4, Newly Diagnosed: No, Heart Failure Type: Systolic Angina Classification Anginal Classification w/in 2 Weeks: No symptoms CAD Presentations: Other: Respiratory arrest due to severe fluid overload;CHF; known previous CAD . 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 Successful PTCA/GISSEL of the with IVUS guidance of mid LCX with a 4.0 x 28 Promus stent; post dilated w ith a 4.5 x 12 NC balloon at 16 zack; 75%-->0%, no dissection. Stent apposition and dissection covera ge confirmed with IVUS guidance. RECOMMENDATIONS Referred for immediate PCI Management as per referring City Solicitor Highly recommend quitting all tobacco products Follow up with primary billboard erector Risk factor modification ASA Indefinitley Plavix for at least 12 months Routine post interventional care Refer for Outpatient Cardiac Rehab Manual sheath removal per protocol Follow up with Dr. Li Manual sheath removal out of concern for recent infection. Medical management of chronically occluded RCA. DESCRIPTION OF PROCEDURE The patient arrived to the procedure lab. The risks and benefits of the procedure as well as a full d escription of our services here and lack of surgical backup were fully explained to the patient and/o r their significant other prior to the catheterization. The Timeout was completed, verifying the greg ect patient and procedure. The patient's procedural site was prepped and draped in the usual fashion. Local anesthetic was given subcutaneously to right groin region with Lidocaine 2%. Using a modified Seldinger technique, arterial access was obtained via the right femoral artery, a 4Fr sheath was inse rted. Left Coronary Artery selective angiography was performed in multiple views using a 4 Fr. JL5 c atheter. Right Coronary Artery selective angiography was then performed in multiple views using a 4 F r. 3DRC catheter. Right Coronary Artery selective angiography was then performed in multiple views us ing a 4 Fr. AR MOD 2 catheter. Left Coronary Artery selective angiography was performed in multiple v iews using a 4 Fr. AL 1 catheter. Left Ventriculography was performed in DOE projection using a 4 Fr. Pigtail catheter. LV to AO pullback pressures were then recorded Arterial sheath was exchanged for a 6 Fr Sheath. ebu 3.75 Guide catheter was inserted and engaged int o the LCA. BMW Guide wire was advanced to the Circumflex. IVUS pullback recording was performed on th e Circumflex for pre- intervention / lesion assessment. synergy 4.00x28 Drug Eluting stent was insert ed. Angiogram performed post stent deployment. IVUS pullback recording was performed on the mid circ for post PCI assessment. nc emerge 4.50x12 Balloon catheter was inserted. PTCA balloon inflated at 1 4 atms for 12 secs. PTCA balloon inflated at 15 atms for 12 secs. PTCA balloon inflated at 15 atms fo r 11 secs. PTCA balloon inflated at 16 atms for 15 secs. Angiogram performed post balloon dilatation. IVUS pullback recording was performed on the mid circ for post PCI assessment. The arterial sheat h was sutured in place and capped CORONARY ANGIOGRAPHY DOMINANCE: Left Dominant LEFT HEART ASSESSMENT Left Ventricular Ejection Fraction: by LV Gram 45 % Depressed Left Ventricular systolic function Global Hypokinesis - Moderate LEFT MAIN: Angiographically normal LEFT ANTERIOR DECENDING ARTERY: PROX LAD: Previously placed stent is patent DISTAL LAD: Mild luminal irregularities less than 30% CIRCUMFLEX ARTERY: MID CIRC: ulcerated plaque with retrograde coronary dissection. RIGHT CORONARY ARTERY: is occluded COLLATERAL FLOW: Collateral flow from Right to Right INTERVENTION INFORMATION LESION SITE: Circumflex (Mid) Lesion Complexity: High/C, lesion at bifurcation: No, thrombus present: No, lesion length: 28 mm, cul prit lesion: Yes Pre Stenosis: 75 % Pre intervention KASH flow: 3 PROCEDURE: IVUS for pre PCI assessment and post stent placement, Drug Eluting Stent with pre and post dilatation Post Stenosis: 0 % Post intervention KASH flow: 3 Lesion Devices: ElephantDrive Coronary IVUS Catheter TIME PLUS Qtronic 6 Fr EBU3.75 100cm Guide Catheter Goel .014 BMW [place] Straight 190cm Tan Sci Synergy MR GISSEL 4.00x28 Tan Sci NC EMERGE MR 4.50x12 BALLOON COMPLICATIONS No Complications PROCEDURE MEDICATIONS Oxygen: 45 % FiO2 via ventilator. See Resp Record for Settings Oxygen: 55 % FiO2 via ventilator. See Resp Record for Settings Heparin 6000 unit(s) IV 06/28/2017 10:39:37 Heparin 4000 unit(s) IV 06/28/2017 11:09:10 Nitro 200 mcg IC 06/28/2017 10:50:22 SUMMARY OF HEMODYNAMIC DATA Time AIR REST ECG 09:59:16 AO 80/54 (65) SA 10:17:18 LV 94/-6, 8 10:33:18 LV 96/-6, 12 10:33:24 LVp 96/-4, 9 10:33:39 AOp 97/47 (68) 10:33:44 Signed By Robert Li MD On 06/28/2017 11:16:11 Signed By Robert Li MD On 06/28/2017 11:16:04 Robert Li MD
[2017-06-28 11:25] LABS: ACT Activated Clotting Time 186 sec (74-137)
--- NOTE | 2017-06-28 11:34 | EKG12_ITS ---
Test Reason : POST CATH Blood Pressure : / mmHG Vent. Rate : 066 BPM Atrial Rate : 066 BPM P-R Int : 164 ms QRS Dur : 088 ms QT Int : 376 ms P-R-T Axes : 042 071 019 degrees QTc Int : 394 ms Normal sinus rhythm Low voltage QRS Septal infarct , age undetermined Abnormal ECG Confirmed by CATRACHITO CABA, DEE ([id number]), editor publications SELINA TSANG ([id number]) on 07/06/2017 3:34:18 PM Referred By: SURESH Confirmed By:DEE WINSTON MD
[2017-06-28 11:55] LABS: Hematocrit 43.5 % (40-54); Hemoglobin 12.8 g/dl (13.0-16.5); Mean Corp Hgb Conc 29.4 g/gl (32-36); Mean Corpuscular Hgb 26.7 pg (27.0-32.0); Mean Corpuscular Volume 90.8 fL (80-94); Mean Platelet Vol. 10.3 fl (6.2-12.0); Platelet Count 189 K/mm3 (150-450); RBC Distribution Width SD 52.4 fl (35.1-43.9); Red Blood Count 4.79 M/mm3 (4.6-6.2); White Blood Count 8.3 K/mm3 (4.4-11.0)
[2017-06-28 11:56] LABS: Scan Indicated on CBC? Y/N NO
[2017-06-28 12:14] LABS: CPK Total, Creatine Kinase 79 U/L (39-308)
[2017-06-28 13:41] LABS: ACT Activated Clotting Time 164 sec (74-137)
[2017-06-28] MEDS: Piperacil/Tazobactam 3.375 GM/50 ML ML IV ×2 (14:15→23:00)
[2017-06-28 15:21] LABS: Bedside Glucose < 10 mg/dL (70-110)
[2017-06-28 15:21] LABS: Bedside Glucose 141 mg/dL (70-110)
[2017-06-28] MEDS: Famotidine 20 MG Tablet GT ×2 (16:44→22:21)
--- NOTE | 2017-06-28 17:27 | NURSING ---
Teaching of chronic medical conditions deferred until pt no longer sedated on vent and able to participate in teaching
[2017-06-28 18:02] LABS: Hematocrit 43.3 % (40-54); Hemoglobin 12.5 g/dl (13.0-16.5); Mean Corp Hgb Conc 28.9 g/gl (32-36); Platelet Count 185 K/mm3 (150-450); RBC Distribution Width SD 52.9 fl (35.1-43.9); Red Blood Count 4.81 M/mm3 (4.6-6.2); White Blood Count 7.1 K/mm3 (4.4-11.0)
[2017-06-28 18:19] LABS: CPK Total, Creatine Kinase 69 U/L (39-308)
--- NOTE | 2017-06-28 18:21 | PCM.PROGNOTE ---
Patient Problems: Active and Suspected Problems (Last Reviewed 06/13/17 @ 14:25 by Binta Isaac) Acute respiratory failure with hypoxia and hypercapnia (Acute) Pneumococcal pneumonia (Acute) Metabolic encephalopathy (Acute) Heart failure with reduced ejection fraction (Acute) Subjective: Patient was seen and examined today, he underwent coronary angiography earlier today with placement of drug-eluting stent in the circumflex artery. Ejection fraction appear to be 45% on cardiac catheterization. Patient remains on the ventilator at this time - Physical Exam General: No apparent distress, Well developed HEENT: Atraumatic, PERRLA, Normocephalic Oral: Moist Mucosa Neck: Supple, No JVD, No Nuchal Rigidity, Trachea Midline, Thyroid Normal Size and Texture Lungs: Clear to auscultation, Normal air movement, No rhonchi, No wheeze, No rales Cardiovascular: Regular rate, Regular Rhythm, Normal S1, Normal S2, No murmurs, No Ectopic Activity, PMI Normal, No rub noted, No Gallop Abdomen: Bowel Sounds Present, Soft, Non Tender, Non-Distended, Obese, No hernias noted Extremities: No clubbing, No cyanosis, Capillary Refill Less than 3 Seconds Skin: No rashes, No breakdown Neurological: Cranial nerves II-XII grossly intact, Neuro grossly intact Psych/Mental Status: - - Patient is sedated at this time on the ventilator Vital Signs Temp Pulse Resp BP Pulse Ox 98.0 F 62 13 90/61 91 06/28/17 18:00 06/28/17 18:00 06/28/17 18:00 06/28/17 18:00 06/28/17 18:00 Oxygen Delivery Method Mechanical Ventilator Weight: 145.1 kg Body Mass Index (BMI) 50.1 Intake and Output for Last 24 Hours 06/26/17 06/27/17 06/28/17 23:59 23:59 23:59 Intake Total 2999.6 / 2999.6 6331.0 / 6331.0 2922 / 2922 Output Total 5025 / 5025 4000 / 4000 1100 / 1100 Balance -2025.4 / -2025.4 2331.0 / 2331.0 1822 / 1822 Microbiology Past 72 Hours 06/28/17 06:55 Gram Stain - Final Sputum, Induced/[place] Laboratory Tests Past 24 Hrs 06/28/17 06/28/17 06/28/17 04:00 04:00 04:00 WBC 9.8 RBC 5.04 Hgb 13.2 Hct 46.5 MCV 92.3 MCH 26.2 L MCHC 28.4 L RDW 16.2 H RDW Differential 53.5 H Plt Count 167 MPV 10.9 Immature Gran % (Auto) 0.300 Neut % (Auto) 68.4 Lymph % (Auto) 16.4 L [place] % (Auto) 10.0 Eos % (Auto) 4.6 Baso % (Auto) 0.3 Absolute Neuts (auto) 6.7 Absolute Lymphs (auto) 1.60 Total Counted Not Reportable PT 13.9 INR 1.1 APTT 26.7 Activated Clotting Time Sodium 147 H Potassium 3.3 L Chloride 97 L Carbon Dioxide > 45.0 H* Anion Gap TNP BUN 72 H Creatinine 1.08 Estim Creat Clear Calc 80.83 Est GFR (MDRD) Af Amer 90 Est GFR (MDRD) Non-Af 74 BUN/Creatinine Ratio 66.7 H Glucose 184 H Calcium 9.2 Magnesium Total Creatine Kinase B-Natriuretic Peptide 06/28/17 06/28/17 06/28/17 04:00 04:00 11:03 WBC RBC Hgb Hct MCV MCH MCHC RDW RDW Differential Plt Count MPV Immature Gran % (Auto) Neut % (Auto) Lymph % (Auto) [place] % (Auto) Eos % (Auto) Baso % (Auto) Absolute Neuts (auto) Absolute Lymphs (auto) Total Counted PT INR APTT Activated Clotting Time 186 H Sodium Potassium Chloride Carbon Dioxide Anion Gap BUN Creatinine Estim Creat Clear Calc Est GFR (MDRD) Af Amer Est GFR (MDRD) Non-Af BUN/Creatinine Ratio Glucose Calcium Magnesium 3.7 H Total Creatine Kinase B-Natriuretic Peptide 35.7 06/28/17 06/28/17 06/28/17 11:45 11:45 13:27 WBC 8.3 RBC 4.79 Hgb 12.8 L Hct 43.5 MCV 90.8 MCH 26.7 L MCHC 29.4 L RDW 16.0 H RDW Differential 52.4 H Plt Count 189 MPV 10.3 Immature Gran % (Auto) Neut % (Auto) Lymph % (Auto) [place] % (Auto) Eos % (Auto) Baso % (Auto) Absolute Neuts (auto) Absolute Lymphs (auto) Total Counted PT INR APTT Activated Clotting Time 164 H Sodium Potassium Chloride Carbon Dioxide Anion Gap BUN Creatinine Estim Creat Clear Calc Est GFR (MDRD) Af Amer Est GFR (MDRD) Non-Af BUN/Creatinine Ratio Glucose Calcium Magnesium Total Creatine Kinase 79 B-Natriuretic Peptide 06/28/17 06/28/17 17:40 17:40 WBC Pending RBC Pending Hgb Pending Hct Pending MCV Pending MCH Pending MCHC Pending RDW Pending RDW Differential Pending Plt Count Pending MPV Immature Gran % (Auto) Neut % (Auto) Lymph % (Auto) [place] % (Auto) Eos % (Auto) Baso % (Auto) Absolute Neuts (auto) Absolute Lymphs (auto) Total Counted PT INR APTT Activated Clotting Time Sodium Potassium Chloride Carbon Dioxide Anion Gap BUN Creatinine Estim Creat Clear Calc Est GFR (MDRD) Af Amer Est GFR (MDRD) Non-Af BUN/Creatinine Ratio Glucose Calcium Magnesium Total Creatine Kinase 69 B-Natriuretic Peptide POC Glucose 06/28/17 06/28/17 06/28/17 13:44 13:42 05:25 POC Glucose 141 H < 10 L* 184 H 06/28/17 00:22 POC Glucose 185 H Medical Necessity - Tobacco Use Smoking Status: Current every day smoker Tobacco Use: - - Resume cigarettes but unable to obtain as the patient is sedated Assessment/Plan Active and Suspected Problems (Last Reviewed 06/13/17 @ 14:25 by Binta Isaac) Acute respiratory failure with hypoxia and hypercapnia (Acute) Pneumococcal pneumonia (Acute) Metabolic encephalopathy (Acute) Heart failure with reduced ejection fraction (Acute) #1 combined respiratory failure secondary to acute diastolic congestive heart failure- pulmonary medicine is managing his ventilator, cardiology performed a coronary angiogram today and placed a drug-eluting stent in the circumflex artery. Attempts continue by pulmonary medicine to wean patient from ventilator #2 acute diastolic congestive heart failure-EF 45%, cardiology is participating in his care #3 chronic obstructive pulmonary disease #4 morbid obesity #5 type 2 diabetes #6 coronary artery disease #7 obstructive sleep apnea Code Visit Inpatient E&M: 60074 Subs Hosp L2
[2017-06-28 18:26] LABS: Bedside Glucose 130 mg/dL (70-110)
[2017-06-28 18:28] LABS: Scan Indicated on CBC? Y/N NO
[2017-06-28] MEDS: Vital AF 1.2 Cal Liquid 1,000 ML 75 ML GT (22:24)
[2017-06-28] MEDS: Nystatin Powder 15gm Bottle 1 APPLIC TOPICAL (22:38)
[2017-06-28 23:35] LABS: Hematocrit 42.8 % (40-54); Hemoglobin 12.5 g/dl (13.0-16.5); Mean Corp Hgb Conc 29.2 g/gl (32-36); Mean Corpuscular Hgb 26.5 pg (27.0-32.0); Mean Corpuscular Volume 90.9 fL (80-94); Platelet Count 193 K/mm3 (150-450); RBC Distribution Width SD 52.5 fl (35.1-43.9); Red Blood Count 4.71 M/mm3 (4.6-6.2); White Blood Count 8.4 K/mm3 (4.4-11.0)
[2017-06-28 23:38] LABS: Scan Indicated on CBC? Y/N NO
[2017-06-28 23:52] LABS: CPK Total, Creatine Kinase 89 U/L (39-308)
[2017-06-29] VITALS (42 sets, daily range): BP systolic 88–120; BP diastolic 55–91; PULSE 66–88; RESP 12–27; TEMP 36.3–36.9; O2SAT 87–96; BMI 43.2
[2017-06-29 00:16] LABS: Bedside Glucose 158 mg/dL (70-110)
--- NOTE | 2017-06-29 00:20 | NURSING ---
Teaching of chronic illnesses deferred until pt. off ventilator and sedation and able to participate in education and teaching.
[2017-06-29] MEDS: Ipratropium/Albuterol Sulfate 3 ML AMPUL.NEB INHALATION ×4 (00:44→19:01)
[2017-06-29 05:05] LABS: Hematocrit 41.7 % (40-54); Mean Corp Hgb Conc 28.8 g/gl (32-36); Mean Corpuscular Hgb 25.7 pg (27.0-32.0); Mean Corpuscular Volume 89.3 fL (80-94); Mean Platelet Vol. 10.5 fl (6.2-12.0); Platelet Count 163 K/mm3 (150-450); RBC Distribution Width SD 52.2 fl (35.1-43.9); Red Blood Count 4.67 M/mm3 (4.6-6.2); White Blood Count 8.6 K/mm3 (4.4-11.0)
[2017-06-29 05:06] LABS: Scan Indicated on CBC? Y/N NO
[2017-06-29] MEDS: Piperacil/Tazobactam 3.375 GM/50 ML ML IV ×3 (05:13→21:23)
[2017-06-29] MEDS: Propofol 10MG/Ml 1,000 MG/100 ML Bottle 5.199 MG CONT INF (05:13)
[2017-06-29] MEDS: 0.9% NaCl Peripheral Flush Adult/Peds IV ×6 (05:13→23:07)
[2017-06-29] MEDS: CHLORHEXIDINE GLUC 2% CLOTH 1 EACH TOWELETTE TOPICAL (05:19)
[2017-06-29 05:24] LABS: Anion Gap 8 (5-15); BUN 81 mg/dL (7-18); BUN/Creat Ratio 60.9 RATIO (10-20); Calcium,Total 8.5 mg/dL (8.5-10.1); Chloride 93 mmol/L (98-107); Creatinine, Serum 1.33 mg/dL (0.70-1.30); EST Glomerular Filtration Rate 58 mL/min (>60); Est Glom Filt Rate - Afr Amer 71 mL/min (>60); Estimated Creatinine Clearance 65.64 ml/min; Glucose 186 mg/dL (74-106); Potassium 3.2 mmol/L (3.5-5.1); Sodium Level 141 mmol/L (136-145)
[2017-06-29 06:16] LABS: Bedside Glucose 201 mg/dL (70-110)
--- NOTE | 2017-06-29 07:04 | PCM.PN.INT ---
Subjective: The patient was seen and examined at the bedside this morning. Events from the last 24 hours have been reviewed. The patient is currently afebrile, hemodynamically stable and maintaining appropriate oxygen saturations on CPAP with an FiO2 of 45%. The patient underwent cardiac catheterization yesterday and required PTCA with drug-eluting stent placement to the mid left circumflex. The patient is currently overall net -11.1 L for the admission. His underlying electrolyte derangements have been corrected. Although the patient's oxygenation status remains tenuous at best, he has been intubated since June 20. He is currently alert and following commands appropriately. I did explain to him that upon extubation he would be transitioned directly to BiPAP therapy. I did ask him that if he were to decompensate clinically if he would want to be reintubated. He did indicate that he would in fact want to be reintubated, if the need arose. Objective: The patient's most recent lab work, culture data and imaging studies have all been personally reviewed. Blood, urine and sputum cultures have shown no growth to date. Strep and urine Legionella antigens were both negative. Rapid influenza screen was negative. Surface echocardiogram dated June 21, 2017 revealed mild segmental systolic dysfunction with an ejection fraction of 50%. Respiratory Gram stain dated June 28 revealed 2+ gram-negative rods. General: Alert, Cooperative, - - Remains intubated and mechanically ventilated. Currently tolerating CPAP mode mechanical ventilation with oxygen saturations 88-90%. HEENT: Atraumatic, PERRLA, Normocephalic Oral: No Gingival or Mucosal Lesions/ Ulcerations, - - Endotracheal and OG tubes remain in place. Neck: Supple, No Nodes, Trachea Midline, - - Large neck circumference with redundant soft tissue. Lungs: No rhonchi, No wheeze, No rales, Diminished Cardiovascular: Regular rate, Regular Rhythm, Normal S1, Normal S2, No murmurs Abdomen: Bowel Sounds Present, Soft, Non Tender, Obese Extremities: No clubbing, No cyanosis, - - Trace pedal edema Skin: - - No significant change from previous. Musculoskeletal: No Muscle Wasting Lymphatic: No Cervical, Supraclavicular, or Inguinal Adenopathy Neurological: Neuro grossly intact Psych/Mental Status: Alert and oriented to time, place, person, mood and affect Vital Signs Temp Pulse Resp BP Pulse Ox 97.6 F L 68 13 91/55 L 89 05/23/18 04:00 06/29/17 06:51 06/29/17 06:00 06/29/17 06:00 06/29/17 06:00 Oxygen Delivery Method Mechanical Ventilator Weight: 328 lb 0.765 oz Body Mass Index (BMI) 50.1 Intake and Output for Last 24 Hours 06/27/17 06/28/17 06/29/17 23:59 23:59 23:59 Intake Total 6331.0 / 6331.0 4237 / 4237 1279 / 1279 Output Total 4000 / 4000 1250 / 1250 500 / 500 Balance 2331.0 / 2331.0 2987 / 2987 779 / 779 Labs (Last 48 Hours) 06/27/17 06/27/17 06/28/17 11:56 17:45 00:22 WBC RBC Hgb Hct MCV MCH MCHC RDW RDW Differential Plt Count MPV Immature Gran % (Auto) Neut % (Auto) Lymph % (Auto) [place] % (Auto) Eos % (Auto) Baso % (Auto) Absolute Neuts (auto) Absolute Lymphs (auto) Total Counted PT INR APTT Activated Clotting Time Sodium Potassium Chloride Carbon Dioxide Anion Gap BUN Creatinine Estim Creat Clear Calc Est GFR (MDRD) Af Amer Est GFR (MDRD) Non-Af BUN/Creatinine Ratio Glucose Calcium Magnesium Total Creatine Kinase B-Natriuretic Peptide POC Glucose 182 H 157 H 185 H 06/28/17 06/28/17 06/28/17 04:00 04:00 04:00 WBC 9.8 RBC 5.04 Hgb 13.2 Hct 46.5 MCV 92.3 MCH 26.2 L MCHC 28.4 L RDW 16.2 H RDW Differential 53.5 H Plt Count 167 MPV 10.9 Immature Gran % (Auto) 0.300 Neut % (Auto) 68.4 Lymph % (Auto) 16.4 L [place] % (Auto) 10.0 Eos % (Auto) 4.6 Baso % (Auto) 0.3 Absolute Neuts (auto) 6.7 Absolute Lymphs (auto) 1.60 Total Counted Not Reportable PT 13.9 INR 1.1 APTT 26.7 Activated Clotting Time Sodium 147 H Potassium 3.3 L Chloride 97 L Carbon Dioxide > 45.0 H* Anion Gap TNP BUN 72 H Creatinine 1.08 Estim Creat Clear Calc 80.83 Est GFR (MDRD) Af Amer 90 Est GFR (MDRD) Non-Af 74 BUN/Creatinine Ratio 66.7 H Glucose 184 H Calcium 9.2 Magnesium Total Creatine Kinase B-Natriuretic Peptide POC Glucose 06/28/17 06/28/17 06/28/17 04:00 04:00 05:25 WBC RBC Hgb Hct MCV MCH MCHC RDW RDW Differential Plt Count MPV Immature Gran % (Auto) Neut % (Auto) Lymph % (Auto) [place] % (Auto) Eos % (Auto) Baso % (Auto) Absolute Neuts (auto) Absolute Lymphs (auto) Total Counted PT INR APTT Activated Clotting Time Sodium Potassium Chloride Carbon Dioxide Anion Gap BUN Creatinine Estim Creat Clear Calc Est GFR (MDRD) Af Amer Est GFR (MDRD) Non-Af BUN/Creatinine Ratio Glucose Calcium Magnesium 3.7 H Total Creatine Kinase B-Natriuretic Peptide 35.7 POC Glucose 184 H 06/28/17 06/28/17 06/28/17 11:03 11:45 11:45 WBC 8.3 RBC 4.79 Hgb 12.8 L Hct 43.5 MCV 90.8 MCH 26.7 L MCHC 29.4 L RDW 16.0 H RDW Differential 52.4 H Plt Count 189 MPV 10.3 Immature Gran % (Auto) Neut % (Auto) Lymph % (Auto) [place] % (Auto) Eos % (Auto) Baso % (Auto) Absolute Neuts (auto) Absolute Lymphs (auto) Total Counted PT INR APTT Activated Clotting Time 186 H Sodium Potassium Chloride Carbon Dioxide Anion Gap BUN Creatinine Estim Creat Clear Calc Est GFR (MDRD) Af Amer Est GFR (MDRD) Non-Af BUN/Creatinine Ratio Glucose Calcium Magnesium Total Creatine Kinase 79 B-Natriuretic Peptide POC Glucose 06/28/17 06/28/17 06/28/17 13:27 13:42 13:44 WBC RBC Hgb Hct MCV MCH MCHC RDW RDW Differential Plt Count MPV Immature Gran % (Auto) Neut % (Auto) Lymph % (Auto) [place] % (Auto) Eos % (Auto) Baso % (Auto) Absolute Neuts (auto) Absolute Lymphs (auto) Total Counted PT INR APTT Activated Clotting Time 164 H Sodium Potassium Chloride Carbon Dioxide Anion Gap BUN Creatinine Estim Creat Clear Calc Est GFR (MDRD) Af Amer Est GFR (MDRD) Non-Af BUN/Creatinine Ratio Glucose Calcium Magnesium Total Creatine Kinase B-Natriuretic Peptide POC Glucose < 10 L* 141 H 06/28/17 06/28/17 06/28/17 17:40 17:40 18:05 WBC 7.1 RBC 4.81 Hgb 12.5 L Hct 43.3 MCV 90.0 MCH 26.0 L MCHC 28.9 L RDW 16.0 H RDW Differential 52.9 H Plt Count 185 MPV 10.0 Immature Gran % (Auto) Neut % (Auto) Lymph % (Auto) [place] % (Auto) Eos % (Auto) Baso % (Auto) Absolute Neuts (auto) Absolute Lymphs (auto) Total Counted PT INR APTT Activated Clotting Time Sodium Potassium Chloride Carbon Dioxide Anion Gap BUN Creatinine Estim Creat Clear Calc Est GFR (MDRD) Af Amer Est GFR (MDRD) Non-Af BUN/Creatinine Ratio Glucose Calcium Magnesium Total Creatine Kinase 69 B-Natriuretic Peptide POC Glucose 130 H 06/28/17 06/28/17 06/29/17 23:05 23:05 00:06 WBC 8.4 RBC 4.71 Hgb 12.5 L Hct 42.8 MCV 90.9 MCH 26.5 L MCHC 29.2 L RDW 16.0 H RDW Differential 52.5 H Plt Count 193 MPV 11.0 Immature Gran % (Auto) Neut % (Auto) Lymph % (Auto) [place] % (Auto) Eos % (Auto) Baso % (Auto) Absolute Neuts (auto) Absolute Lymphs (auto) Total Counted PT INR APTT Activated Clotting Time Sodium Potassium Chloride Carbon Dioxide Anion Gap BUN Creatinine Estim Creat Clear Calc Est GFR (MDRD) Af Amer Est GFR (MDRD) Non-Af BUN/Creatinine Ratio Glucose Calcium Magnesium Total Creatine Kinase 89 B-Natriuretic Peptide POC Glucose 158 H 06/29/17 06/29/17 06/29/17 04:55 04:55 06:05 WBC 8.6 RBC 4.67 Hgb 12.0 L Hct 41.7 MCV 89.3 MCH 25.7 L MCHC 28.8 L RDW 16.0 H RDW Differential 52.2 H Plt Count 163 MPV 10.5 Immature Gran % (Auto) Neut % (Auto) Lymph % (Auto) [place] % (Auto) Eos % (Auto) Baso % (Auto) Absolute Neuts (auto) Absolute Lymphs (auto) Total Counted PT INR APTT Activated Clotting Time Sodium 141 Potassium 3.2 L Chloride 93 L Carbon Dioxide 40.0 H Anion Gap 8 BUN 81 H Creatinine 1.33 H Estim Creat Clear Calc 65.64 Est GFR (MDRD) Af Amer 71 Est GFR (MDRD) Non-Af 58 L BUN/Creatinine Ratio 60.9 H Glucose 186 H Calcium 8.5 Magnesium Total Creatine Kinase B-Natriuretic Peptide POC Glucose 201 H Microbiology 06/28/17 06:55 Sputum, Induced/Lukens Gram Stain - Final Clinical Impression(s) from Imaging Studies Brain CT 06/20/17 13:13 IMPRESSION: Normal unenhanced CT scan of the brain. Electronically Signed: Akhil Izquierdo MD at 15:15 EDT Tel [phone], Service support , Chest X-Ray 06/20/17 13:15 IMPRESSION: The tip of the endotracheal tube is at 3.5 cm proximal to the byron. Cardiomegaly. Findings suggestive of vascular congestion with infiltrate and/or atelectasis is worse on the right side with thickening of the right minor fissure. Electronically Signed: Akhil Izquierdo MD at 14:01 EDT Tel [phone], Service support , Chest X-Ray 06/25/17 03:30 IMPRESSION: 1. Enteric tube is in appropriate position. 2. Improved aeration of the right lung since the previous study. Persistent airspace disease in the left lung may represent pneumonia. Electronically Signed: Laura Duarte MD at 7:56 EDT Tel , Service support , Chest X-Ray 06/25/17 10:33 IMPRESSION: 1. Enteric tube is in appropriate position. 2. Improved aeration of the right lung since the previous study. Electronically Signed: Katya Wright MD at 12:08 EDT , Service support , Chest X-Ray 06/27/17 07:26 IMPRESSION: Increasing right basilar atelectasis and/or infiltrate. The remaining examination is unchanged. Electronically Signed: Akhil Izquierdo MD at 12:57 EDT Tel [phone], Service support , Chest X-Ray 06/28/17 07:02 IMPRESSION: The tip of the endotracheal tube is at 5.3 cm proximal to the byron. Slight increase in the blunting of the left costophrenic angle. Electronically Signed: Akhil Izquierdo MD at 11:01 EDT Tel [phone], Service support , Medical Necessity - Tobacco Use Smoking Status: Current every day smoker Tobacco Use: - - Resume cigarettes but unable to obtain as the patient is sedated Assessment/Plan Active and Suspected Problems (Last Reviewed 06/13/17 @ 14:25 by Binta Isaac) Acute respiratory failure with hypoxia and hypercapnia (Acute) Pneumococcal pneumonia (Acute) Metabolic encephalopathy (Acute) Heart failure with reduced ejection fraction (Acute) RECOMMENDATIONS: 1. Discontinue all supplemental IV fluids. 2. Okay from my perspective to proceed with a trial of extubation. The patient will be transitioned directly to BiPAP therapy 15/10 cm of water. 3. Maintain oxygen saturations 88-90%. 4. Continue antibiotics, pending finalized culture results. 5. Start Lasix 40 mg twice daily 6. Aggressive potassium repletion 7. We will also plan to start IV steroids today over concern for potential underlying pulmonary infectious process. 8. Continue aerosol regimen 9. Restart Lovenox for DVT prophylaxis IMPRESSIONS: 1. Acute on chronic combined respiratory failure Likely secondary to decompensated heart failure in the setting of outpatient noncompliance and possible HCAP. In addition, the patient is supposed to be utilizing BiPAP therapy in his home environment, but is noncompliant. The patient was initially maintained on a Bumex drip and had a significant amount of diuresis. His BUN and sodium have risen. Therefore, the patient was continued on a low rate of D5W. The patient's electrolyte derangements have since improved and the supplemental IV fluids can be discontinued. Recommend a trial of extubation at this time with plans to transition the patient directly to BiPAP 15/10 cm of water. If the patient does well over the next several hours, he can be transitioned to nasal cannula with a goal to maintain oxygen saturations 88-90%. If stable, a bedside swallow evaluation can be completed. If the patient fails his attempts at extubation, would need to consider potential tracheostomy placement at that time. IV Lasix 40 mg twice daily will be started today. In addition to the aforementioned, the patient will also be started on IV steroids today should he be experiencing a component of COPD exacerbation. 2. Acute on chronic systolic congestive heart failure/history of ischemic cardiomyopathy Continue medical management per cardiology recommendations. Diuretics will be resumed today. Given that the patient just had a drug-eluting stent placed, it is imperative that he receive his Plavix today. 3. Hypokalemia Orders for supplementation have been placed. Recheck levels in the morning. Schedule potassium supplementation daily given initiation of diuretics today. 4. Diabetes mellitus Continue sliding-scale insulin coverage and Accu-Cheks. 5. Morbid obesity/history of noncompliance/hypertension/seasonal allergies Complicates care, management, recovery and prognosis. Continue current supportive measures as noted above. Physical therapy to work with patient. TIME: 45 minutes of critical care time, independent of procedures, was spent addressing the patient's acute on chronic combined respiratory failure, decompensated heart failure, metabolic encephalopathy, diabetes, morbid obesity, review of all data and collaboration with the care team. ([id number]) Code Visit 9xxxx: [id number] Critical care first hour
--- NOTE | 2017-06-29 08:48 | CRPHASE1_ITS ---
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 Phase I Charge:: Level I - Education Risk Factors/Lifestyle Smoking Status: Current every day smoker Hx Hypertension: Yes Hx Diabetes Mellitus Type 2: Yes Hx Metabolic Disorders: Yes Hx Dyslipidemia: Yes Hx Obesity: Yes Height: 1.83 m Weight:: 144.696 kg BMI: 43.2 Caffeine: Yes Family History: Family History (Last Reviewed 06/13/17 @ 14:25 by Binta Isaac) Mother Diabetes Heart disease Phase I Education Given On:: Arjay, Nutrition, Antiplatelet medication, CHF, Smoking cessation, Diabetes - Type II Issues Affecting Care:: None Knowledge of Condition:: Yes Learning Preferences: Verbal Hospital Course Cardiac Cath Date:: 06/28/17 Medical/Surgical History CAD:: Yes COPD:: Yes EMILIA:: Yes Diabetes Type II:: Yes Hypertension:: Yes Dyslipidemia:: Yes Arthritis:: Yes CABG: Yes PTCA:: Yes Discharge/Home/Social Eval Discharge Disposition: Home Marital Status:
--- NOTE | 2017-06-29 08:50 | CRPH1.INST_ITS ---
General Education CAD and cardiac anatomy and function:: Patient communicates acknowledgment Explanation of diagnoses and procedures:: Patient communicates acknowledgment Sign/Symptoms of UT:: Patient communicates acknowledgment Antiplatelet therapy: Patient communicates acknowledgment Proper use of NTG-SL: Patient communicates acknowledgment Emergency procedures and activation of EMS: Patient communicates acknowledgment Compliance of all prescribed medications: Patient communicates acknowledgment Smoking Patient Nicotine/Smoking Risk Factors Are:: Cigarettes Recommendations Include:: Smoking cessation strategies/Smoking packet Nicotine/Smoking Response Code:: Patient communicates acknowledgment Dyslipidemia Patient Dyslipidemia Risk Factors Are:: Total Cholesterol Recommendations Include:: Lipid profile provided, Lipid profile not available Dyslipidemia Response Code:: Patient communicates acknowledgment Overweight/Obesity Patient Overweight/Obesity Risk Factors Are:: Overweight = 26-29 Recommendations Include:: Weight loss of 5-10%, Reduced calorie diet, Exercise 5 -7 times/week Overweight/Obesity:: Patient communicates acknowledgment Hypertension Recommendations Include:: Maintain BP <130/85, BP <130/80 if diabetic, DASH dietary guidelines, Decrease/maintain normal body weight, Moderation of ETOH Hypertension:: Patient communicates acknowledgment Heart Disease Patient Heart Disease Risk Factors Are:: Family history of heart disease < 65 years old, Previous cardiac event Heart Disease Response Code:: Patient communicates acknowledgment Diabetes Patient Diabetes Risk Factors Are:: Elevated blood sugars Recommendations Include:: Maintain fasting blood sugars 70-110 md/dL, Maintain HgbA1c of 6% or less, Monitor blood sugar as prescribed, Diabetic dietary guidelines, Decrease/maintain body weight Metabolic Syndrome Patient Metabolic Syndrome Risk Factors Are [3 of 5]:: Fasting blood sugar > 100 mg/dL, Waist circumference > 35 [female] or 40 [male], High triglyceride > 150, Hypertension Recommendations Include:: Reinforce compliance to risk factor modifications, Patient is diabetic Metabolic Syndrome Response Code:: Patient communicates acknowledgment Sedentary Patient Sedentary Risk Factors Are:: Lack of regular exercise Recommendations Include:: Aerobic exercise 5-7 times/week for 20-30 minutes continuously, Discussed home walking program Sedentary Response Code:: Patient communicates acknowledgment Stress Recommendations Include:: Identification of stressors, and assessment of coping skills Stress Response Code:: Patient communicates acknowledgment
--- NOTE | 2017-06-29 08:55 | PN.CARD_ITS ---
Subjectve: Patient extubated this morning, still on BiPAP, awake, alert, answers questions through the mask. Denies any chest pain. Right groin is clean/dry/intact. EKG shows normal sinus rhythm, no acute changes. Telemetry negative except for PVCs rarely. Creatinine and hemoglobin within nominal limits. Objective: Vital Signs Temp Pulse Resp BP Pulse Ox 97.8 F 71 21 H 94/56 L 90 06/29/17 08:00 06/29/17 08:00 06/29/17 08:00 06/29/17 08:00 06/29/17 08:00 Oxygen Delivery Method Bi-pap Weight: 319 lb Body Mass Index (BMI) 50.1 Intake and Output for Last 24 Hours 06/27/17 06/28/17 06/29/17 23:59 23:59 23:59 Intake Total 6331.0 / 6331.0 4237 / 4237 1279 / 1279 Output Total 4000 / 4000 1250 / 1250 500 / 500 Balance 2331.0 / 2331.0 2987 / 2987 779 / 779 General: Awake, Alert, Oriented x 3 HEENT: PERRL, EOMI, Sclera Non Icteric Neck: Supple, Good ROM, No Lymph Node Enlargement Lungs: Clear to auscultation Cardiovascular: Regular Rhythm, Normal S1, Normal S2, No Murmurs, No Rubs, No Gallops Vascular: No Carotid Bruits, Normal Femoral Pulses, Normal Radial Pulses, Normal Dorsalis Pedal Pulse, Normal Posterior Tibial Pulses Abdomen: Bowel Sounds Present, Soft, Non Tender, No HSM, No Organomegaly Extremities: No Cyanosis, No Clubbing, No edema Neurological: No Focal Motor or Sensory Deficit 06/28/17 11:45: WBC 8.3, RBC 4.79, Hgb 12.8 L, Hct 43.5, MCV 90.8, MCH 26.7 L, MCHC 29.4 L, RDW 16.0 H, RDW Differential 52.4 H, Plt Count 189, MPV 10.3 06/28/17 17:40: WBC 7.1, RBC 4.81, Hgb 12.5 L, Hct 43.3, MCV 90.0, MCH 26.0 L, MCHC 28.9 L, RDW 16.0 H, RDW Differential 52.9 H, Plt Count 185, MPV 10.0 06/28/17 23:05: WBC 8.4, RBC 4.71, Hgb 12.5 L, Hct 42.8, MCV 90.9, MCH 26.5 L, MCHC 29.2 L, RDW 16.0 H, RDW Differential 52.5 H, Plt Count 193, MPV 11.0 06/29/17 04:55: WBC 8.6, RBC 4.67, Hgb 12.0 L, Hct 41.7, MCV 89.3, MCH 25.7 L, MCHC 28.8 L, RDW 16.0 H, RDW Differential 52.2 H, Plt Count 163, MPV 10.5 06/29/17 04:55: Sodium 141, Potassium 3.2 L, Chloride 93 L, Carbon Dioxide 40.0 H, Anion Gap 8, BUN 81 H, Creatinine 1.33 H, Est GFR (MDRD) Af Amer 71, Est GFR (MDRD) Non-Af 58 L, BUN/Creatinine Ratio 60.9 H, Glucose 186 H, Calcium 8.5 Rhythm: EKG: ECHO: Stress Test: Cardiac Cath: PCI: CT Surgery: Holter monitor: EPS: PPM: CXR: Chest CT Scan: Medical Necessity - Tobacco Use Smoking Status: Current every day smoker Tobacco Use: - - Resume cigarettes but unable to obtain as the patient is sedated Assessment/Plan 1. Congestive heart failure: The patient's chest x-ray suggest pulmonary vascular redistribution, but there appears to be a density in the right upper lobe possibly due to aspiration or pneumonia. Patient also has evidence of anasarca with significant edema in his legs, face and hands. He was found with salty foods nearby, suggesting he has had dietary indiscretion with increased salt and water intake. Patient has known coronary artery disease, and ischemic cardiomyopathy, and is undetermined whether he was compliant with his medicines as there are no family representatives to clarify his medical condition at home. Given his presentation, it is most likely has a CHF exacerbations possibly superimposed on a pneumonia. Patient has been diuresing well on a Bumex drip over the last several days since admission, and has lost approximately 17 L negative but is still having difficulty with weaning due to high FiO2 requirements and high PEEP requirements. 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 EF estimated to be around 40-45%. Patient successfully extubated this morning and is currently on BiPAP. Recommend continuing baby aspirin and Plavix for life going forward. I would recommend initiating Lasix 40 mg IV twice daily to maintain the patient' s dry body weight, and to assist with weaning him off of BiPAP as well. I agree with holding his ARB this morning given his elevated creatinine which most likely represents a delusional effect. Recommend replacing potassium to avoid ventricular arrhythmias to keep his potassium above 4.0 and magnesium of 2.0. Continue half dose Coreg therapy until the patient's reached his dry weight. His echocardiogram shows his EF is approximately 50% which is consistent with his previous ejection fraction is based on recent stress testing. He has known coronary disease of his LAD requiring redo stenting for in-stent restenosis, and known ectatic circumflex disease which had no significant ischemia by stress testing in the recent past. His troponins are negative. At this point we will hold off on catheterization unless and until the patient is having difficulty weaning from the ventilator. Would recommend continuing baby aspirin and Plavix going forward. In addition recommend holding his Cozaar 50 mg p.o. daily and cutting his Coreg in half to 3.125 mg p.o. twice daily until he is through his CHF exacerbation, at which time we will increase it back to 6.25 mg twice daily assuming he is tolerating it. Would recommend maximum concentration of all medications and a 1500 cc fluid restriction. 2. Right upper lobe infiltrate: Patient appears to have a right upper lobe infiltrate by chest x-ray by my review and confirmed by radiology. Continue antibiotic therapy per protocol. 3. Hyperlipidemia: Given his coronary history and diabetes history requires LDL reduction of less than 70. Continue Lipitor. 4. Thank you very much for the opportunity to participate in the cardiac care of your patient. Discussed with Dr. Denny. Code Visit Inpatient E&M: 92023 Subs Hosp L2
[2017-06-29] MEDS: Aspirin 81 MG TAB.CHEW PO (09:32)
[2017-06-29] MEDS: Clopidogrel Bisulfate 75 MG Tablet PO (09:33)
[2017-06-29] MEDS: Furosemide 40 MG/4 ML Vial IV ×2 (09:33→18:07)
[2017-06-29] MEDS: Carvedilol 3.125 MG TABLET PO ×2 (09:33→21:18)
[2017-06-29] MEDS: Nystatin Powder 15gm Bottle 1 APPLIC TOPICAL ×2 (09:33→21:17)
[2017-06-29] MEDS: Enoxaparin 40 MG/0.4 ML Syringe SC (09:33)
--- NOTE | 2017-06-29 10:54 | CASEMGMT ---
SW participated in rounds in ICU this morning. Pt has been extubated. SW spoke w/pt this morning about discharge plans from here. Pt would like to return to [facility] if possible. Pt confirms has been to [facility] in the past, but not from this hospital. From this hospital, he has been able to return in the past to [facility]. SW explained to pt that if he is doing well enough he can return there, but if he is still needing a lot of assist, SNF may be what we need to consider. SW did give pt a list of SNF's that take pt's insurance, to review regarding where he may want to go if needed. Pt states understanding. SW will continue to follow. BUDDY Cowart, INTAKE COORDINATOR
[2017-06-29 11:16] LABS: Hematocrit 43.4 % (40-54); Hemoglobin 12.7 g/dl (13.0-16.5); Mean Corp Hgb Conc 29.3 g/gl (32-36); Mean Corpuscular Hgb 25.8 pg (27.0-32.0); Mean Platelet Vol. 9.8 fl (6.2-12.0); Platelet Count 155 K/mm3 (150-450); RBC Distribution Width CV 15.6 % (11.6-14.6); RBC Distribution Width SD 49.8 fl (35.1-43.9); Red Blood Count 4.93 M/mm3 (4.6-6.2); White Blood Count 9.3 K/mm3 (4.4-11.0)
[2017-06-29 11:20] LABS: Scan Indicated on CBC? Y/N NO
[2017-06-29 11:56] LABS: Bedside Glucose 132 mg/dL (70-110)
[2017-06-29 16:31] LABS: Base Excess 24 mmol/L (-2 to +2); Bicarbonate 48.3 mmol/L (22-26); Blood Gas Specimen Type ART; FI02 55; Mode A-C; O2 Delivery Device Vent; PEEP 10; PO2 55 mmHG (75-100); RR 12; SITE R Radial; SO2 88 % (95-99); Time Given 725; Total Carbon Dioxide > 50 mmol/L; Vt 450; pCO2 68.5 mmHg (35-45); pH 7.46 (7.35-7.45)
--- NOTE | 2017-06-29 16:55 | PCM.PROGNOTE ---
Patient Problems: Active and Suspected Problems (Last Reviewed 06/13/17 @ 14:25 by Binta Isaac) Acute respiratory failure with hypoxia and hypercapnia (Acute) Pneumococcal pneumonia (Acute) Metabolic encephalopathy (Acute) Heart failure with reduced ejection fraction (Acute) Subjective: Patient was seen and examined today, he was extubated this morning and is currently on BiPAP. - Physical Exam General: Alert, Cooperative, No apparent distress, Well developed HEENT: Atraumatic, PERRLA, EOMI, Normocephalic Oral: Moist Mucosa Neck: Supple, No JVD, No Nuchal Rigidity, Trachea Midline, Thyroid Normal Size and Texture Lungs: Clear to auscultation, No wheeze, No rales, Diminished Cardiovascular: Regular rate, Regular Rhythm, Normal S1, Normal S2, No murmurs, No Ectopic Activity, PMI Normal, No rub noted, No Gallop Abdomen: Bowel Sounds Present, Soft, Non Tender, Non-Distended, Obese, No hernias noted Extremities: No clubbing, Capillary Refill Less than 3 Seconds Skin: No rashes, No breakdown Neurological: Cranial nerves II-XII grossly intact, Neuro grossly intact, Sensory exam intact to light touch and pain Psych/Mental Status: Normal Affect, Appropriate Vital Signs Temp Pulse Resp BP Pulse Ox 98.4 F 76 18 116/76 91 06/29/17 16:00 06/29/17 16:00 06/29/17 16:00 06/29/17 16:00 06/29/17 16:00 Oxygen Flow Rate (L/min) 6 Oxygen Delivery Method Bi-pap Weight: 148.8 kg Body Mass Index (BMI) 50.1 Intake and Output for Last 24 Hours 06/27/17 06/28/17 06/29/17 23:59 23:59 23:59 Intake Total 6331.0 / 6331.0 4237 / 4237 2076 / 2076 Output Total 4000 / 4000 1250 / 1250 1800 / 1800 Balance 2331.0 / 2331.0 2987 / 2987 276 / 276 Microbiology Past 72 Hours 06/28/17 06:55 Gram Stain - Final Sputum, Induced/Lukens Respiratory Culture - Preliminary Gram positive milli Laboratory Tests Past 24 Hrs 06/28/17 06/28/17 06/28/17 07:26 17:40 17:40 WBC 7.1 RBC 4.81 Hgb 12.5 L Hct 43.3 MCV 90.0 MCH 26.0 L MCHC 28.9 L RDW 16.0 H RDW Differential 52.9 H Plt Count 185 MPV 10.0 Specimen Type ART Sample Site R Radial pH 7.46 H Bicarbonate Actual 48.3 H POC Total CO2 > 50 Base Excess 24 H O2 Saturation 88 L O2 % 55 ABG pCO2 68.5 H* ABG pO2 55 L Respiration Rate 12 O2 Delivery Device Vent Vent Mode A-C Tidal Volume 450 POC PEEP 10 Blood Gas Notified Whom ICU MD Blood Gas Notified Time 725 Sodium Potassium Chloride Carbon Dioxide Anion Gap BUN Creatinine Estim Creat Clear Calc Est GFR (MDRD) Af Amer Est GFR (MDRD) Non-Af BUN/Creatinine Ratio Glucose Calcium Total Creatine Kinase 69 06/28/17 06/28/17 06/29/17 23:05 23:05 04:55 WBC 8.4 8.6 RBC 4.71 4.67 Hgb 12.5 L 12.0 L Hct 42.8 41.7 MCV 90.9 89.3 MCH 26.5 L 25.7 L MCHC 29.2 L 28.8 L RDW 16.0 H 16.0 H RDW Differential 52.5 H 52.2 H Plt Count 193 163 MPV 11.0 10.5 Specimen Type Sample Site pH Bicarbonate Actual POC Total CO2 Base Excess O2 Saturation O2 % ABG pCO2 ABG pO2 Respiration Rate O2 Delivery Device Vent Mode Tidal Volume POC PEEP Blood Gas Notified Whom Blood Gas Notified Time Sodium Potassium Chloride Carbon Dioxide Anion Gap BUN Creatinine Estim Creat Clear Calc Est GFR (MDRD) Af Amer Est GFR (MDRD) Non-Af BUN/Creatinine Ratio Glucose Calcium Total Creatine Kinase 89 06/29/17 06/29/17 04:55 11:10 WBC 9.3 RBC 4.93 Hgb 12.7 L Hct 43.4 MCV 88.0 MCH 25.8 L MCHC 29.3 L RDW 15.6 H RDW Differential 49.8 H Plt Count 155 MPV 9.8 Specimen Type Sample Site pH Bicarbonate Actual POC Total CO2 Base Excess O2 Saturation O2 % ABG pCO2 ABG pO2 Respiration Rate O2 Delivery Device Vent Mode Tidal Volume POC PEEP Blood Gas Notified Whom Blood Gas Notified Time Sodium 141 Potassium 3.2 L Chloride 93 L Carbon Dioxide 40.0 H Anion Gap 8 BUN 81 H Creatinine 1.33 H Estim Creat Clear Calc 65.64 Est GFR (MDRD) Af Amer 71 Est GFR (MDRD) Non-Af 58 L BUN/Creatinine Ratio 60.9 H Glucose 186 H Calcium 8.5 Total Creatine Kinase POC Glucose 06/29/17 06/29/17 06/29/17 11:47 06:05 00:06 POC Glucose 132 H 201 H 158 H 06/28/17 18:05 POC Glucose 130 H Medical Necessity - Tobacco Use Smoking Status: Current every day smoker Tobacco Use: - Assessment/Plan Active and Suspected Problems (Last Reviewed 06/13/17 @ 14:25 by Binta Isaac) Acute respiratory failure with hypoxia and hypercapnia (Acute) Pneumococcal pneumonia (Acute) Metabolic encephalopathy (Acute) Heart failure with reduced ejection fraction (Acute) #1 combined respiratory failure secondary to acute diastolic congestive heart failure-patient is now extubated and is currently on BiPAP. #2 acute diastolic congestive heart failure-EF 45%, cardiology is participating in his care #3 chronic obstructive pulmonary disease #4 morbid obesity #5 type 2 diabetes #6 coronary artery disease-status post drug-eluting stent placement circumflex artery postop day #1 continue medications per cardiology #7 obstructive sleep apnea Code Visit Inpatient E&M: 84448 Subs Hosp L2
[2017-06-29 18:36] LABS: Bedside Glucose 160 mg/dL (70-110)
[2017-06-29 23:10] LABS: Bedside Glucose 166 mg/dL (70-110)
[2017-06-30] VITALS (38 sets, daily range): BP systolic 93–130; BP diastolic 52–94; PULSE 58–76; RESP 12–24; TEMP 36.2–36.7; O2SAT 87–99
[2017-06-30] MEDS: Ipratropium/Albuterol Sulfate 3 ML AMPUL.NEB INHALATION ×4 (01:08→19:09)
[2017-06-30] MEDS: Piperacil/Tazobactam 3.375 GM/50 ML ML IV (05:33)
[2017-06-30] MEDS: 0.9% NaCl Peripheral Flush Adult/Peds IV (05:33)
[2017-06-30] MEDS: CHLORHEXIDINE GLUC 2% CLOTH 1 EACH TOWELETTE TOPICAL (05:36)
[2017-06-30 05:45] LABS: Bedside Glucose 196 mg/dL (70-110)
--- NOTE | 2017-06-30 05:55 | EKG12_ITS ---
Test Reason : AM Blood Pressure : / mmHG Vent. Rate : 060 BPM Atrial Rate : 060 BPM P-R Int : 170 ms QRS Dur : 094 ms QT Int : 422 ms P-R-T Axes : 059 083 034 degrees QTc Int : 422 ms Normal sinus rhythm Low voltage QRS Septal infarct , age undetermined Abnormal ECG Confirmed by CATRACHITO CABA, DEE ([id number]), field map editor SELINA TSANG ([id number]) on 07/06/2017 3:17:45 PM Referred By: SIRENA Confirmed By:DEE WINSTON MD
--- NOTE | 2017-06-30 06:46 | PCM.PN.INT ---
Subjective: The patient was seen and examined at the bedside this morning. Events from the last 24 hours have been reviewed. The patient is currently afebrile, hemodynamically stable and maintaining appropriate oxygen saturations on BIPAP with an FiO2 of 50%. The patient was given a 3 hour break off of his BiPAP last evening and did well on supplemental oxygen. He is requesting food and water. The patient was overall net -1.2 L yesterday. The patient denies resting shortness of breath or significant cough related complaints. Objective: The patient's most recent lab work, culture data and imaging studies have all been personally reviewed. Blood and urine cultures have shown no growth to date. Repeat sputum culture dated June 28 was positive for the presence of a gram-positive milli. Strep and urine Legionella antigens were both negative. Rapid influenza screen was negative. Surface echocardiogram dated June 21, 2017 revealed mild segmental systolic dysfunction with an ejection fraction of 50%. General: Alert, Cooperative, No apparent distress, - - Currently tolerating BiPAP without issue. No significant air leaks noted. HEENT: Atraumatic, PERRLA, Normocephalic Oral: No Gingival or Mucosal Lesions/ Ulcerations Neck: Supple, No Nodes, Trachea Midline Lungs: No rhonchi, No wheeze, No rales, Diminished Cardiovascular: Regular rate, Regular Rhythm, Normal S1, Normal S2, No murmurs Abdomen: Bowel Sounds Present, Soft, Non Tender, Obese Extremities: No clubbing, No cyanosis, No edema Skin: - - No significant change from previous. Musculoskeletal: No Tenderness to Palpation of Joints or Extremities, No Muscle Wasting Lymphatic: No Cervical, Supraclavicular, or Inguinal Adenopathy Neurological: Cranial nerves II-XII grossly intact, Neuro grossly intact Psych/Mental Status: Normal Affect, Appropriate Vital Signs Temp Pulse Resp BP Pulse Ox 97.9 F 58 L 17 107/60 92 06/30/17 04:00 06/30/17 06:00 06/30/17 06:00 06/30/17 06:00 06/30/17 06:00 Oxygen Flow Rate (L/min) 6 Oxygen Delivery Method Bi-pap Weight: 325 lb 2.909 oz Body Mass Index (BMI) 50.1 Intake and Output for Last 24 Hours 06/28/17 06/29/17 06/30/17 23:59 23:59 23:59 Intake Total 4237 / 4237 2794 / 2794 52 / 52 Output Total 1250 / 1250 4075 / 4075 550 / 550 Balance 2987 / 2987 -1281 / -1281 -498 / -498 Labs (Last 48 Hours) 06/28/17 06/28/17 06/28/17 04:00 04:00 07:26 WBC RBC Hgb Hct MCV MCH MCHC RDW RDW Differential Plt Count MPV Activated Clotting Time Specimen Type ART Sample Site R Radial pH 7.46 H Bicarbonate Actual 48.3 H POC Total CO2 > 50 Base Excess 24 H O2 Saturation 88 L O2 % 55 ABG pCO2 68.5 H* ABG pO2 55 L Respiration Rate 12 O2 Delivery Device Vent Vent Mode A-C Tidal Volume 450 POC PEEP 10 Blood Gas Notified Whom ICU MD Blood Gas Notified Time 725 Sodium Potassium Chloride Carbon Dioxide Anion Gap BUN Creatinine Estim Creat Clear Calc Est GFR (MDRD) Af Amer Est GFR (MDRD) Non-Af BUN/Creatinine Ratio Glucose Calcium Magnesium 3.7 H Total Creatine Kinase B-Natriuretic Peptide 35.7 POC Glucose 06/28/17 06/28/17 06/28/17 11:03 11:45 11:45 WBC 8.3 RBC 4.79 Hgb 12.8 L Hct 43.5 MCV 90.8 MCH 26.7 L MCHC 29.4 L RDW 16.0 H RDW Differential 52.4 H Plt Count 189 MPV 10.3 Activated Clotting Time 186 H Specimen Type Sample Site pH Bicarbonate Actual POC Total CO2 Base Excess O2 Saturation O2 % ABG pCO2 ABG pO2 Respiration Rate O2 Delivery Device Vent Mode Tidal Volume POC PEEP Blood Gas Notified Whom Blood Gas Notified Time Sodium Potassium Chloride Carbon Dioxide Anion Gap BUN Creatinine Estim Creat Clear Calc Est GFR (MDRD) Af Amer Est GFR (MDRD) Non-Af BUN/Creatinine Ratio Glucose Calcium Magnesium Total Creatine Kinase 79 B-Natriuretic Peptide POC Glucose 06/28/17 06/28/17 06/28/17 13:27 13:42 13:44 WBC RBC Hgb Hct MCV MCH MCHC RDW RDW Differential Plt Count MPV Activated Clotting Time 164 H Specimen Type Sample Site pH Bicarbonate Actual POC Total CO2 Base Excess O2 Saturation O2 % ABG pCO2 ABG pO2 Respiration Rate O2 Delivery Device Vent Mode Tidal Volume POC PEEP Blood Gas Notified Whom Blood Gas Notified Time Sodium Potassium Chloride Carbon Dioxide Anion Gap BUN Creatinine Estim Creat Clear Calc Est GFR (MDRD) Af Amer Est GFR (MDRD) Non-Af BUN/Creatinine Ratio Glucose Calcium Magnesium Total Creatine Kinase B-Natriuretic Peptide POC Glucose < 10 L* 141 H 06/28/17 06/28/17 06/28/17 17:40 17:40 18:05 WBC 7.1 RBC 4.81 Hgb 12.5 L Hct 43.3 MCV 90.0 MCH 26.0 L MCHC 28.9 L RDW 16.0 H RDW Differential 52.9 H Plt Count 185 MPV 10.0 Activated Clotting Time Specimen Type Sample Site pH Bicarbonate Actual POC Total CO2 Base Excess O2 Saturation O2 % ABG pCO2 ABG pO2 Respiration Rate O2 Delivery Device Vent Mode Tidal Volume POC PEEP Blood Gas Notified Whom Blood Gas Notified Time Sodium Potassium Chloride Carbon Dioxide Anion Gap BUN Creatinine Estim Creat Clear Calc Est GFR (MDRD) Af Amer Est GFR (MDRD) Non-Af BUN/Creatinine Ratio Glucose Calcium Magnesium Total Creatine Kinase 69 B-Natriuretic Peptide POC Glucose 130 H 06/28/17 06/28/17 06/29/17 23:05 23:05 00:06 WBC 8.4 RBC 4.71 Hgb 12.5 L Hct 42.8 MCV 90.9 MCH 26.5 L MCHC 29.2 L RDW 16.0 H RDW Differential 52.5 H Plt Count 193 MPV 11.0 Activated Clotting Time Specimen Type Sample Site pH Bicarbonate Actual POC Total CO2 Base Excess O2 Saturation O2 % ABG pCO2 ABG pO2 Respiration Rate O2 Delivery Device Vent Mode Tidal Volume POC PEEP Blood Gas Notified Whom Blood Gas Notified Time Sodium Potassium Chloride Carbon Dioxide Anion Gap BUN Creatinine Estim Creat Clear Calc Est GFR (MDRD) Af Amer Est GFR (MDRD) Non-Af BUN/Creatinine Ratio Glucose Calcium Magnesium Total Creatine Kinase 89 B-Natriuretic Peptide POC Glucose 158 H 06/29/17 06/29/17 06/29/17 04:55 04:55 06:05 WBC 8.6 RBC 4.67 Hgb 12.0 L Hct 41.7 MCV 89.3 MCH 25.7 L MCHC 28.8 L RDW 16.0 H RDW Differential 52.2 H Plt Count 163 MPV 10.5 Activated Clotting Time Specimen Type Sample Site pH Bicarbonate Actual POC Total CO2 Base Excess O2 Saturation O2 % ABG pCO2 ABG pO2 Respiration Rate O2 Delivery Device Vent Mode Tidal Volume POC PEEP Blood Gas Notified Whom Blood Gas Notified Time Sodium 141 Potassium 3.2 L Chloride 93 L Carbon Dioxide 40.0 H Anion Gap 8 BUN 81 H Creatinine 1.33 H Estim Creat Clear Calc 65.64 Est GFR (MDRD) Af Amer 71 Est GFR (MDRD) Non-Af 58 L BUN/Creatinine Ratio 60.9 H Glucose 186 H Calcium 8.5 Magnesium Total Creatine Kinase B-Natriuretic Peptide POC Glucose 201 H 06/29/17 06/29/17 06/29/17 11:10 11:47 18:05 WBC 9.3 RBC 4.93 Hgb 12.7 L Hct 43.4 MCV 88.0 MCH 25.8 L MCHC 29.3 L RDW 15.6 H RDW Differential 49.8 H Plt Count 155 MPV 9.8 Activated Clotting Time Specimen Type Sample Site pH Bicarbonate Actual POC Total CO2 Base Excess O2 Saturation O2 % ABG pCO2 ABG pO2 Respiration Rate O2 Delivery Device Vent Mode Tidal Volume POC PEEP Blood Gas Notified Whom Blood Gas Notified Time Sodium Potassium Chloride Carbon Dioxide Anion Gap BUN Creatinine Estim Creat Clear Calc Est GFR (MDRD) Af Amer Est GFR (MDRD) Non-Af BUN/Creatinine Ratio Glucose Calcium Magnesium Total Creatine Kinase B-Natriuretic Peptide POC Glucose 132 H 160 H 06/29/17 06/30/17 23:02 05:32 WBC RBC Hgb Hct MCV MCH MCHC RDW RDW Differential Plt Count MPV Activated Clotting Time Specimen Type Sample Site pH Bicarbonate Actual POC Total CO2 Base Excess O2 Saturation O2 % ABG pCO2 ABG pO2 Respiration Rate O2 Delivery Device Vent Mode Tidal Volume POC PEEP Blood Gas Notified Whom Blood Gas Notified Time Sodium Potassium Chloride Carbon Dioxide Anion Gap BUN Creatinine Estim Creat Clear Calc Est GFR (MDRD) Af Amer Est GFR (MDRD) Non-Af BUN/Creatinine Ratio Glucose Calcium Magnesium Total Creatine Kinase B-Natriuretic Peptide POC Glucose 166 H 196 H Microbiology 06/28/17 06:55 Sputum, Induced/Lukens Gram Stain - Final 06/28/17 06:55 Sputum, Induced/Lukens Respiratory Culture - Preliminary Gram positive milli Clinical Impression(s) from Imaging Studies Brain CT 06/20/17 13:13 IMPRESSION: Normal unenhanced CT scan of the brain. Electronically Signed: Akhil Izquierdo MD at 15:15 EDT Tel [phone], Service support , Chest X-Ray 06/20/17 13:15 IMPRESSION: The tip of the endotracheal tube is at 3.5 cm proximal to the byron. Cardiomegaly. Findings suggestive of vascular congestion with infiltrate and/or atelectasis is worse on the right side with thickening of the right minor fissure. Electronically Signed: Akhil Izquierdo MD at 14:01 EDT Tel [phone], Service support , Chest X-Ray 06/25/17 03:30 IMPRESSION: 1. Enteric tube is in appropriate position. 2. Improved aeration of the right lung since the previous study. Persistent airspace disease in the left lung may represent pneumonia. Electronically Signed: Laura Duarte MD at 7:56 EDT Tel , Service support , Chest X-Ray 06/25/17 10:33 IMPRESSION: 1. Enteric tube is in appropriate position. 2. Improved aeration of the right lung since the previous study. Electronically Signed: Katya Wright MD at 12:08 EDT , Service support , Chest X-Ray 06/27/17 07:26 IMPRESSION: Increasing right basilar atelectasis and/or infiltrate. The remaining examination is unchanged. Electronically Signed: Akhil Izquierdo MD at 12:57 EDT Tel [phone], Service support , Chest X-Ray 06/28/17 07:02 IMPRESSION: The tip of the endotracheal tube is at 5.3 cm proximal to the byron. Slight increase in the blunting of the left costophrenic angle. Electronically Signed: Akhil Izquierdo MD at 11:01 EDT Tel [phone], Service support , Medical Necessity - Tobacco Use Smoking Status: Current every day smoker Tobacco Use: - Assessment/Plan Active and Suspected Problems (Last Reviewed 06/13/17 @ 14:25 by Binta Isaac) Acute respiratory failure with hypoxia and hypercapnia (Acute) Pneumococcal pneumonia (Acute) Metabolic encephalopathy (Acute) Heart failure with reduced ejection fraction (Acute) RECOMMENDATIONS: 1. We will slowly advance the patient's diet today. Fluid restriction will need to be put in place. 2. Continue BiPAP therapy 15/10 cm of water and wean as tolerated. 3. Maintain oxygen saturations 88-90%. 4. Continue antibiotics, pending finalized culture results. 5. Continue Lasix as ordered. 6. Transition from IV steroids to prednisone 40 mg daily. 7. Continue aerosol regimen 8. Continue Lovenox for DVT prophylaxis 9. Obtain repeat chemistry profile, given previously noted electrolyte derangements and ongoing diuresis. IMPRESSIONS: 1. Acute on chronic combined respiratory failure Likely secondary to decompensated heart failure in the setting of outpatient noncompliance and possible HCAP. In addition, the patient is supposed to be utilizing BiPAP therapy in his home environment, but is noncompliant. The patient was initially maintained on a Bumex drip and had a significant amount of diuresis. His BUN and sodium have risen. Therefore, the patient was continued on a low rate of D5W. The patient's electrolyte derangements have since improved and the supplemental IV fluids were discontinued. The patient has done well following extubation. He is currently requiring intermittent BiPAP utilization with a pressure setting of 15/10 cm of water. Plan to continue supplemental oxygen to maintain saturations 80-90%. Patient's diet will be advanced accordingly. A 1.5 L fluid restriction will remain in place. Continue Lasix as ordered. Antibiotics and steroids will be continued. However, the methylprednisone will be transitioned to prednisone. 2. Acute on chronic systolic congestive heart failure/history of ischemic cardiomyopathy Continue medical management per cardiology recommendations. Diuretics will be continued today. 3. Diabetes mellitus Continue sliding-scale insulin coverage and Accu-Cheks. 4. Morbid obesity/history of noncompliance/hypertension/seasonal allergies Complicates care, management, recovery and prognosis. Continue current supportive measures as noted above. Physical therapy to work with patient. This note was generated with [employer] dictation software. It may contain incorrect words, spelling, and punctuation that were not noted in checking the note before signing. Code Visit Inpatient E&M: 99507 Subs Hosp L3
[2017-06-30 08:36] LABS: Anion Gap 5 (5-15); BUN 46 mg/dL (7-18); BUN/Creat Ratio 63.4 RATIO (10-20); Calcium,Total 9.3 mg/dL (8.5-10.1); Chloride 96 mmol/L (98-107); Creatinine, Serum 0.72 mg/dL (0.70-1.30); EST Glomerular Filtration Rate 118 mL/min (>60); Est Glom Filt Rate - Afr Amer 142 mL/min (>60); Estimated Creatinine Clearance 121.25 ml/min; Glucose 158 mg/dL (74-106); Potassium 3.7 mmol/L (3.5-5.1); Sodium Level 140 mmol/L (136-145)
--- NOTE | 2017-06-30 09:19 | PN.CARD_ITS ---
Subjectve: Patient doing much better this morning. On nasal cannula but no conversational dyspnea. Feels great excavation work passed a swallow study this morning, and is awaiting his first meal in a week. No chest pain. Telemetry showed normal sinus rhythm with rare PVCs. Objective: Vital Signs Temp Pulse Resp BP Pulse Ox 97.9 F 62 16 127/70 H 91 06/30/17 04:00 06/30/17 08:00 06/30/17 08:00 06/30/17 08:00 06/30/17 08:17 Oxygen Flow Rate (L/min) 6 Oxygen Delivery Method Nasal Cannula Weight: 325 lb 2.909 oz Body Mass Index (BMI) 50.1 Intake and Output for Last 24 Hours 06/28/17 06/29/17 06/30/17 23:59 23:59 23:59 Intake Total 4237 / 4237 2794 / 2794 52 / 52 Output Total 1250 / 1250 4075 / 4075 550 / 550 Balance 2987 / 2987 -1281 / -1281 -498 / -498 General: Awake, Alert, Oriented x 3 HEENT: PERRL, EOMI, Sclera Non Icteric Neck: Supple, Good ROM, No Lymph Node Enlargement Lungs: Clear to auscultation Cardiovascular: Regular Rhythm, Normal S1, Normal S2, No Murmurs, No Rubs, No Gallops Vascular: No Carotid Bruits, Normal Femoral Pulses, Normal Radial Pulses, Normal Dorsalis Pedal Pulse, Normal Posterior Tibial Pulses Abdomen: Bowel Sounds Present, Soft, Non Tender, No HSM, No Organomegaly Extremities: No Cyanosis, No Clubbing, No edema Neurological: No Focal Motor or Sensory Deficit 06/28/17 07:26: pH 7.46 H, Bicarbonate Actual 48.3 H, POC Total CO2 > 50, Base Excess 24 H, O2 Saturation 88 L, ABG pCO2 68.5 H*, ABG pO2 55 L 06/29/17 11:10: WBC 9.3, RBC 4.93, Hgb 12.7 L, Hct 43.4, MCV 88.0, MCH 25.8 L, MCHC 29.3 L, RDW 15.6 H, RDW Differential 49.8 H, Plt Count 155, MPV 9.8 06/30/17 08:15: Sodium 140, Potassium 3.7, Chloride 96 L, Carbon Dioxide 39.0 H , Anion Gap 5, BUN 46 H, Creatinine 0.72, Est GFR (MDRD) Af Amer 142, Est GFR ( MDRD) Non-Af 118, BUN/Creatinine Ratio 63.4 H, Glucose 158 H, Calcium 9.3 Rhythm: EKG: ECHO: Stress Test: Cardiac Cath: PCI: CT Surgery: Holter monitor: EPS: PPM: CXR: Chest CT Scan: Medical Necessity - Tobacco Use Smoking Status: Current every day smoker Tobacco Use: - Assessment/Plan 1. Congestive heart failure: He was found with salty foods nearby, suggesting he has had dietary indiscretion with increased salt and water intake. Patient has known coronary artery disease, and ischemic cardiomyopathy, and is undetermined whether he was compliant with his medicines as there are no family representatives to clarify his medical condition at home. Given his presentation, it is most likely has a CHF exacerbations possibly superimposed on a pneumonia. Patient has been diuresing well on a Bumex drip over the last several days since admission, and has lost approximately 17 L negative but is still having difficulty with weaning due to high FiO2 requirements and high PEEP requirements. 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 EF estimated to be around 40-45%. Recommend continuing baby aspirin and Plavix for life going forward. Now that the patient is off his BiPAP, and is passed a swallowing study, would recommend reinitiating his Lasix 40 mg p.o. twice daily. If this is an inadequate dosage assuming normal compliance, he may require additional Lasix going forward. It does not appear the patient was compliant with his medications at home prior to his admission. His echocardiogram shows his EF is approximately 50% which is consistent with his previous ejection fraction is based on recent stress testing. He has known coronary disease of his LAD requiring redo stenting for in-stent restenosis, and known ectatic circumflex disease which had no significant ischemia by stress testing in the recent past. His troponins are negative. At this point we will hold off on catheterization unless and until the patient is having difficulty weaning from the ventilator. Would recommend continuing baby aspirin and Plavix going forward. We will restart his Cozaar 25 mg p.o. daily, and his Coreg 3.125 mg p.o. twice daily. Would recommend maximum concentration of all medications and a 1500 cc fluid restriction. 2. Right upper lobe infiltrate: Patient appears to have a right upper lobe infiltrate by chest x-ray by my review and confirmed by radiology. Continue antibiotic therapy per protocol. 3. Hyperlipidemia: Given his coronary history and diabetes history requires LDL reduction of less than 70. Continue Lipitor. 4. Thank you very much for the opportunity to participate in the cardiac care of your patient. Discussed with Dr. Denny. Code Visit Inpatient E&M: 79142 Subs Hosp L2
[2017-06-30] MEDS: predniSONE 20 MG Tablet 40 MG PO (09:39)
[2017-06-30] MEDS: Aspirin 81 MG TAB.CHEW PO (09:40)
[2017-06-30] MEDS: Carvedilol 3.125 MG TABLET PO ×2 (09:40→21:13)
--- NOTE | 2017-06-30 09:40 | CASEMGMT ---
CECIL BERMUDEZ Note/Interdisciplinary rounds: Pt continues to require intermittent Bipap, however tolerating 6L NC. PT/OT recommending further skilled therapy. RN AIDAN spoke with pt after rounds. Discussed recommendation for SNF on dc for medical monitoring and strengthening. Pt is agreeable to [facility], he has been there previously. SW referral for possible SNF placement. Packet printed. Sarah ALAN RN ACM
[2017-06-30] MEDS: Enoxaparin 40 MG/0.4 ML Syringe SC (09:41)
[2017-06-30] MEDS: Clopidogrel Bisulfate 75 MG Tablet PO (09:41)
[2017-06-30] MEDS: levoFLOXacin 750 MG Tablet PO (09:44)
[2017-06-30] MEDS: Glucerna Shake 120 ML LIQUID PO (09:44)
[2017-06-30] MEDS: Losartan Potassium 25 MG Tablet PO (09:45)
[2017-06-30] MEDS: Furosemide 40 MG Tablet PO ×2 (09:45→17:29)
[2017-06-30] MEDS: Nystatin Powder 15gm Bottle 1 APPLIC TOPICAL ×2 (09:46→21:13)
--- NOTE | 2017-06-30 11:11 | CASEMGMT ---
Addendum entered by Renae Tefsaye 06/30/17 14:30: SW called Rad, they have no record of this pt. MUKESH called pt's [facility] family service caseworker, Dior Grajeda, left her a message inquiring about insurance. MUKESH called Donald Escobedo, they were on the phone w/[facility] giving them pt's insurance info. They say [employer] is a Medicare and Medicaid plan, and [place] is secondary to the Medicare. AIDAN Fierro spoke w/Manda in precert, who states they called [facility] and WALLACE states the only insurance pt has is the U[employer] plan. MUKESH called Christina at [facility] and left a message asking her to call this MUKESH. BUDDY Cowart, VIDEO SYSTEM REPAIRER Original Note: Addendum entered by Renae Tesfaye 06/30/17 14:06: Christina from [facility] called back, the policy number listed in the computer is actually pt's social security number. SW will call [facility] directly to see if there is a way to attain the policy number. MUKESH spoke w/pt in room regarding POA forms. Pt wants to think about filling them out, states his sister would be the only one he could put down. Pt is not ready to fill out the forms today however. SW let pt know if he would like to complete them while he is here, to let his RN know and she will call this SW, this SW can assist pt in completing the forms. Pt states understanding. SW on hold now with Rad in the attempt to find pt's policy number. BUDDY Cowart, VIDEO SYSTEM REPAIRER Original Note: Addendum entered by Renae Tesfaye 06/30/17 13:28: MUKESH spoke w/Christina at [facility], she inquired about bipap for pt and if he is in a bariatric bed. Pt is not in a bariatric bed, and it is anticipated pt will need a bipap at discharge. MUKESH let Christina know this, will let her know for certain about bipap once this MUKESH knows. Also, Christina states that pt's primary insurance is [place] Medicare. MUKESH spoke w/pt in room, pt's sister is here visiting. SW let pt know that [facility] will likely be able to take pt. MUKESH did ask pt about his insurance; he states he has both [place] and [employer] Medicaid. He does not have any insurance cards with him however. MUKESH reviewed the information in the computer, did find a policy number for [employer] and gave this to Christina at [facility], she will let SW know if she needs any additional information. MUKESH also left a message for UR here regarding pt's insurance. MUKESH will continue to follow. BUDDY Cowart, VIDEO SYSTEM REPAIRER Original Note: As per CM, pt would like to go to [facility] at discharge. MUKESH called Christina, faxed referral, she is to let this SW know if they can take pt. MUKESH will continue to follow. BUDDY Cowart, VIDEO SYSTEM REPAIRER
[2017-06-30 12:51] LABS: Bedside Glucose 216 mg/dL (70-110)
[2017-06-30] MEDS: Insulin Lispro 100 UNIT/ML INSULN.PEN SC ×3 (12:58→21:13)
--- NOTE | 2017-06-30 15:07 | CASEMGMT ---
Addendum entered by Renae Tesfaye 06/30/17 16:13: SW spoke w/Christina from [facility], she states [facility] faxed her pt's insurance cards, and she will fax them here. SW has not received them yet, will check back hubert/Christina tomorrow regarding the insurance cards. BUDDY Cowart, HUMAN RESOURCES SUPPORT SPECIALIST Original Note: SW received a call back from Dior Grajeda [facility] bilingual case manager. She states she is only aware of pt's [facility], which she states is waiver and Medicaid only, does not know who covers pt for his Medicare. SW spoke w/Christina at [facility], she states [facility] is going to fax her pt's insurance information, and once she has it will fax it to this SW. MUKESH will continue to follow. Convalescent form started in . BUDDY Cowart, HUMAN RESOURCES SUPPORT SPECIALIST
[2017-06-30 17:31] LABS: Bedside Glucose 166 mg/dL (70-110)
--- NOTE | 2017-06-30 18:26 | PCM.PROGNOTE ---
Patient Problems: Active and Suspected Problems (Last Reviewed 06/13/17 @ 14:25 by Binta Isaac) Acute respiratory failure with hypoxia and hypercapnia (Acute) Pneumococcal pneumonia (Acute) Metabolic encephalopathy (Acute) Heart failure with reduced ejection fraction (Acute) Subjective: Patient was seen and examined today, he remains off BiPAP at this time and is on nasal cannula O2. Pulmonary medicine change his antibiotic coverage today based on his sputum culture. I talked to the patient briefly about going to a senior living facility for rehab and he has consented to this and already talk to social service. - Physical Exam General: Alert, Oriented x3, Cooperative, No apparent distress, Well developed, Well nourished HEENT: Atraumatic, PERRLA, EOMI, Normocephalic Oral: Moist Mucosa Neck: Supple, No JVD, No Nuchal Rigidity, Trachea Midline, Thyroid Normal Size and Texture Lungs: Clear to auscultation, Normal air movement, No rhonchi, No wheeze, No rales Cardiovascular: Regular rate, Regular Rhythm, Normal S1, Normal S2, No murmurs, No Ectopic Activity, PMI Normal, No rub noted, No Gallop Abdomen: Bowel Sounds Present, Soft, Non Tender, Non-Distended, Obese, No hernias noted Extremities: No clubbing, No cyanosis, Capillary Refill Less than 3 Seconds Skin: No rashes, No breakdown Musculoskeletal: No Tenderness to Palpation of Joints or Extremities Neurological: Cranial nerves II-XII grossly intact, Neuro grossly intact, Sensory exam intact to light touch and pain, Coordination normal Psych/Mental Status: Normal Affect, Appropriate, Alert and oriented to time, place, person, mood and affect Vital Signs Temp Pulse Resp BP Pulse Ox 97.2 F L 75 22 H 116/77 92 06/30/17 16:00 06/30/17 17:00 06/30/17 17:00 06/30/17 17:00 06/30/17 17:00 Oxygen Flow Rate (L/min) 6 Oxygen Delivery Method Nasal Cannula Weight: 147.5 kg Body Mass Index (BMI) 50.1 Intake and Output for Last 24 Hours 06/28/17 06/29/17 06/30/17 23:59 23:59 23:59 Intake Total 4237 / 4237 2794 / 2794 662 / 662 Output Total 1250 / 1250 4075 / 4075 1050 / 1050 Balance 2987 / 2987 -1281 / -1281 -388 / -388 Microbiology Past 72 Hours 06/28/17 06:55 Gram Stain - Final Sputum, Induced/Lukens Respiratory Culture - Preliminary Gram positive milli Laboratory Tests Past 24 Hrs 06/30/17 08:15 Sodium 140 Potassium 3.7 Chloride 96 L Carbon Dioxide 39.0 H Anion Gap 5 BUN 46 H Creatinine 0.72 Estim Creat Clear Calc 121.25 Est GFR (MDRD) Af Amer 142 Est GFR (MDRD) Non-Af 118 BUN/Creatinine Ratio 63.4 H Glucose 158 H Calcium 9.3 POC Glucose 06/30/17 06/30/17 06/30/17 17:28 12:46 05:32 POC Glucose 166 H 216 H 196 H 06/29/17 06/29/17 23:02 18:05 POC Glucose 166 H 160 H Medical Necessity - Tobacco Use Smoking Status: Current every day smoker Tobacco Use: - Assessment/Plan Active and Suspected Problems (Last Reviewed 06/13/17 @ 14:25 by Binta Isaac) Acute respiratory failure with hypoxia and hypercapnia (Acute) Pneumococcal pneumonia (Acute) Metabolic encephalopathy (Acute) Heart failure with reduced ejection fraction (Acute) #1 combined respiratory failure secondary to acute diastolic congestive heart failure-patient is now extubated and is currently on nasal cannula O2 #2 acute diastolic congestive heart failure-EF 45%, cardiology is participating in his care #3 chronic obstructive pulmonary disease #4 morbid obesity #5 type 2 diabetes #6 coronary artery disease-status post drug-eluting stent placement circumflex artery postop day #1 continue medications per cardiology #7 obstructive sleep apnea #8 Possible HCAP-pulmonary medicine is directing antibiotic coverage Code Visit Inpatient E&M: 09606 Subs Hosp L2
--- NOTE | 2017-06-30 19:55 | NURSING ---
Alejo requested that his credit cards and ramirez of 145$ was sent with his sister Brooke. So his money and cards have been removed from the ICU medication room and sent with Brooke (sister).
[2017-06-30 21:26] LABS: Bedside Glucose 230 mg/dL (70-110)
--- NOTE | 2017-06-30 23:44 | CPS ---
decreased Fio2 to 40%
[2017-07-01] VITALS (27 sets, daily range): BP systolic 112–143; BP diastolic 61–110; PULSE 60–91; RESP 12–33; TEMP 36.1–37.3; O2SAT 90–100
[2017-07-01 04:33] LABS: Anion Gap 4 (5-15); BUN 47 mg/dL (7-18); Calcium,Total 9.3 mg/dL (8.5-10.1); Chloride 100 mmol/L (98-107); Creatinine, Serum 0.81 mg/dL (0.70-1.30); EST Glomerular Filtration Rate 104 mL/min (>60); Est Glom Filt Rate - Afr Amer 125 mL/min (>60); Estimated Creatinine Clearance 107.78 ml/min; Glucose 112 mg/dL (74-106); Potassium 3.2 mmol/L (3.5-5.1); Sodium Level 145 mmol/L (136-145)
--- NOTE | 2017-07-01 05:55 | EKG12_ITS ---
Test Reason : AM EKG Blood Pressure : / mmHG Vent. Rate : 060 BPM Atrial Rate : 060 BPM P-R Int : 164 ms QRS Dur : 098 ms QT Int : 398 ms P-R-T Axes : 061 085 031 degrees QTc Int : 398 ms Normal sinus rhythm Septal infarct , age undetermined Nonspecific T wave abnormality Abnormal ECG Confirmed by CATRACHITO CABA, DEE ([id number]), dictionary editor SELINA TSANG ([id number]) on 07/28/2017 11:43:12 AM Referred By: MARY Confirmed By:DEE WINSTON MD
[2017-07-01] MEDS: levoFLOXacin 750 MG Tablet PO (06:10)
[2017-07-01 06:16] LABS: Bedside Glucose 102 mg/dL (70-110)
--- NOTE | 2017-07-01 06:51 | PCM.PN.INT ---
Subjective: The patient was seen and examined at the bedside this morning. Events from the last 24 hours have been reviewed. The patient is currently afebrile, hemodynamically stable and maintaining appropriate oxygen saturations on BiPAP. Patient did well yesterday on nasal cannula at 5-6 L/min. The patient is currently overall net -14.2 L for the admission. Potassium is low this morning at 3.2. Objective: The patient's most recent lab work, culture data and imaging studies have all been personally reviewed. Blood and urine cultures have shown no growth to date. Repeat sputum culture dated June 28 was positive for the presence of a gram-positive milli. Strep and urine Legionella antigens were both negative. Rapid influenza screen was negative. Surface echocardiogram dated June 21, 2017 revealed mild segmental systolic dysfunction with an ejection fraction of 50%. General: Alert, Cooperative, No apparent distress HEENT: Atraumatic, PERRLA, Normocephalic Oral: No Gingival or Mucosal Lesions/ Ulcerations Neck: Supple, No Nodes, Trachea Midline Lungs: No rhonchi, No wheeze, No rales, Diminished Cardiovascular: Regular rate, Regular Rhythm, Normal S1, Normal S2, No murmurs Abdomen: Bowel Sounds Present, Soft, Non Tender, Obese Extremities: No clubbing, No cyanosis, No edema Skin: - - No significant change from previous. Musculoskeletal: No Tenderness to Palpation of Joints or Extremities, No Muscle Wasting Lymphatic: No Cervical, Supraclavicular, or Inguinal Adenopathy Neurological: Neuro grossly intact Psych/Mental Status: Normal Affect, Appropriate Vital Signs Temp Pulse Resp BP Pulse Ox 97.7 F L 63 15 136/72 H 91 07/01/17 00:00 07/01/17 06:00 07/01/17 06:00 07/01/17 06:00 07/01/17 06:00 Oxygen Flow Rate (L/min) 6 Oxygen Delivery Method Bi-pap Weight: 322 lb 5.053 oz Body Mass Index (BMI) 50.1 Intake and Output for Last 24 Hours 06/29/17 06/30/17 07/01/17 23:59 23:59 23:59 Intake Total 2794 / 2794 1662 / 1662 150 / 150 Output Total 4075 / 4075 2400 / 2400 475 / 475 Balance -1281 / -1281 -738 / -738 -325 / -325 Labs (Last 48 Hours) 06/28/17 06/29/17 06/29/17 07:26 11:10 11:47 WBC 9.3 RBC 4.93 Hgb 12.7 L Hct 43.4 MCV 88.0 MCH 25.8 L MCHC 29.3 L RDW 15.6 H RDW Differential 49.8 H Plt Count 155 MPV 9.8 Specimen Type ART Sample Site R Radial pH 7.46 H Bicarbonate Actual 48.3 H POC Total CO2 > 50 Base Excess 24 H O2 Saturation 88 L O2 % 55 ABG pCO2 68.5 H* ABG pO2 55 L Respiration Rate 12 O2 Delivery Device Vent Vent Mode A-C Tidal Volume 450 POC PEEP 10 Blood Gas Notified Whom ICU MD Blood Gas Notified Time 725 Sodium Potassium Chloride Carbon Dioxide Anion Gap BUN Creatinine Estim Creat Clear Calc Est GFR (MDRD) Af Amer Est GFR (MDRD) Non-Af BUN/Creatinine Ratio Glucose Calcium POC Glucose 132 H 06/29/17 06/29/17 06/30/17 18:05 23:02 05:32 WBC RBC Hgb Hct MCV MCH MCHC RDW RDW Differential Plt Count MPV Specimen Type Sample Site pH Bicarbonate Actual POC Total CO2 Base Excess O2 Saturation O2 % ABG pCO2 ABG pO2 Respiration Rate O2 Delivery Device Vent Mode Tidal Volume POC PEEP Blood Gas Notified Whom Blood Gas Notified Time Sodium Potassium Chloride Carbon Dioxide Anion Gap BUN Creatinine Estim Creat Clear Calc Est GFR (MDRD) Af Amer Est GFR (MDRD) Non-Af BUN/Creatinine Ratio Glucose Calcium POC Glucose 160 H 166 H 196 H 06/30/17 06/30/17 06/30/17 08:15 12:46 17:28 WBC RBC Hgb Hct MCV MCH MCHC RDW RDW Differential Plt Count MPV Specimen Type Sample Site pH Bicarbonate Actual POC Total CO2 Base Excess O2 Saturation O2 % ABG pCO2 ABG pO2 Respiration Rate O2 Delivery Device Vent Mode Tidal Volume POC PEEP Blood Gas Notified Whom Blood Gas Notified Time Sodium 140 Potassium 3.7 Chloride 96 L Carbon Dioxide 39.0 H Anion Gap 5 BUN 46 H Creatinine 0.72 Estim Creat Clear Calc 121.25 Est GFR (MDRD) Af Amer 142 Est GFR (MDRD) Non-Af 118 BUN/Creatinine Ratio 63.4 H Glucose 158 H Calcium 9.3 POC Glucose 216 H 166 H 06/30/17 07/01/17 07/01/17 21:11 04:15 06:09 WBC RBC Hgb Hct MCV MCH MCHC RDW RDW Differential Plt Count MPV Specimen Type Sample Site pH Bicarbonate Actual POC Total CO2 Base Excess O2 Saturation O2 % ABG pCO2 ABG pO2 Respiration Rate O2 Delivery Device Vent Mode Tidal Volume POC PEEP Blood Gas Notified Whom Blood Gas Notified Time Sodium 145 Potassium 3.2 L Chloride 100 Carbon Dioxide 41.0 H Anion Gap 4 L BUN 47 H Creatinine 0.81 Estim Creat Clear Calc 107.78 Est GFR (MDRD) Af Amer 125 Est GFR (MDRD) Non-Af 104 BUN/Creatinine Ratio 58.0 H Glucose 112 H Calcium 9.3 POC Glucose 230 H 102 Microbiology 06/28/17 06:55 Sputum, Induced/Lukens Gram Stain - Final 06/28/17 06:55 Sputum, Induced/Lukens Respiratory Culture - Preliminary Gram positive milli Clinical Impression(s) from Imaging Studies Brain CT 06/20/17 13:13 IMPRESSION: Normal unenhanced CT scan of the brain. Electronically Signed: Akhil Izquierdo MD at 15:15 EDT Tel [phone], Service support , Chest X-Ray 06/20/17 13:15 IMPRESSION: The tip of the endotracheal tube is at 3.5 cm proximal to the byron. Cardiomegaly. Findings suggestive of vascular congestion with infiltrate and/or atelectasis is worse on the right side with thickening of the right minor fissure. Electronically Signed: Akhil Izquierdo MD at 14:01 EDT Tel [phone], Service support , Chest X-Ray 06/25/17 03:30 IMPRESSION: 1. Enteric tube is in appropriate position. 2. Improved aeration of the right lung since the previous study. Persistent airspace disease in the left lung may represent pneumonia. Electronically Signed: Laura Duarte MD at 7:56 EDT Tel , Service support , Chest X-Ray 06/25/17 10:33 IMPRESSION: 1. Enteric tube is in appropriate position. 2. Improved aeration of the right lung since the previous study. Electronically Signed: Katya Wright MD at 12:08 EDT , Service support , Chest X-Ray 06/27/17 07:26 IMPRESSION: Increasing right basilar atelectasis and/or infiltrate. The remaining examination is unchanged. Electronically Signed: Akhil Izquierdo MD at 12:57 EDT Tel [phone], Service support , Chest X-Ray 06/28/17 07:02 IMPRESSION: The tip of the endotracheal tube is at 5.3 cm proximal to the byron. Slight increase in the blunting of the left costophrenic angle. Electronically Signed: Akhil Izquierdo MD at 11:01 EDT Tel [phone], Service support , Medical Necessity - Tobacco Use Smoking Status: Current every day smoker Tobacco Use: - Assessment/Plan Active and Suspected Problems (Last Reviewed 06/13/17 @ 14:25 by Binta Isaac) Acute respiratory failure with hypoxia and hypercapnia (Acute) Pneumococcal pneumonia (Acute) Metabolic encephalopathy (Acute) Heart failure with reduced ejection fraction (Acute) RECOMMENDATIONS: 1. Continue BiPAP therapy 15/10 cm of water with naps and nightly. 2. Maintain oxygen saturations 88-90%. 3. Continue antibiotics. 4. Continue Lasix as ordered. 5. Continue prednisone 40 mg daily. 6. Continue aerosol regimen 7. Continue Lovenox for DVT prophylaxis 8. Potassium repletion currently underway. Schedule 40 mEq of potassium daily. IMPRESSIONS: 1. Acute on chronic combined respiratory failure Likely secondary to decompensated heart failure in the setting of outpatient noncompliance and possible HCAP. In addition, the patient is supposed to be utilizing BiPAP therapy in his home environment, but is noncompliant. The patient was initially maintained on a Bumex drip and had a significant amount of diuresis. The patient has done well following extubation. He is currently requiring intermittent BiPAP utilization with a pressure setting of 15/10 cm of water. Plan to continue supplemental oxygen to maintain saturations 80-90%. A 1.5 L fluid restriction will remain in place. Continue Lasix as ordered. Antibiotics and steroids will be continued. Encourage incentive spirometer use and mobilize patient as tolerated. 2. Acute on chronic systolic congestive heart failure/history of ischemic cardiomyopathy Continue medical management per cardiology recommendations. Diuretics will be continued. Imdur and hydralazine will be added to the patient's antihypertensive regimen. 3. Diabetes mellitus Continue sliding-scale insulin coverage and Accu-Cheks. 4. Morbid obesity/history of noncompliance/hypertension/seasonal allergies Complicates care, management, recovery and prognosis. Continue current supportive measures as noted above. Physical therapy to work with patient. This note was generated with [employer] dictation software. It may contain incorrect words, spelling, and punctuation that were not noted in checking the note before signing. DISPOSITION: The patient is medically stable for transfer out of the intensive care unit. Code Visit Inpatient E&M: 73095 Subs Hosp L3
--- NOTE | 2017-07-01 06:55 | PN_ITS ---
Subjective: The patient was seen and examined at the bedside this morning. Events from the last 24 hours have been reviewed. The patient is currently afebrile, hemodynamically stable and maintaining appropriate oxygen saturations on BiPAP. Patient did well yesterday on nasal cannula at 5-6 L/min. The patient is currently overall net -14.2 L for the admission. Potassium is low this morning at 3.2. Objective: The patient's most recent lab work, culture data and imaging studies have all been personally reviewed. Blood and urine cultures have shown no growth to date. Repeat sputum culture dated June 28 was positive for the presence of a gram-positive milli. Strep and urine Legionella antigens were both negative. Rapid influenza screen was negative. Surface echocardiogram dated June 21, 2017 revealed mild segmental systolic dysfunction with an ejection fraction of 50%. General: Alert, Cooperative, No apparent distress HEENT: Atraumatic, PERRLA, Normocephalic Oral: No Gingival or Mucosal Lesions/ Ulcerations Neck: Supple, No Nodes, Trachea Midline Lungs: No rhonchi, No wheeze, No rales, Diminished Cardiovascular: Regular rate, Regular Rhythm, Normal S1, Normal S2, No murmurs Abdomen: Bowel Sounds Present, Soft, Non Tender, Obese Extremities: No clubbing, No cyanosis, No edema Skin: - - No significant change from previous. Musculoskeletal: No Tenderness to Palpation of Joints or Extremities, No Muscle Wasting Lymphatic: No Cervical, Supraclavicular, or Inguinal Adenopathy Neurological: Neuro grossly intact Psych/Mental Status: Normal Affect, Appropriate Vital Signs Temp Pulse Resp BP Pulse Ox 97.7 F L 63 15 136/72 H 91 07/01/17 00:00 07/01/17 06:00 07/01/17 06:00 07/01/17 06:00 07/01/17 06:00 Oxygen Flow Rate (L/min) 6 Oxygen Delivery Method Bi-pap Weight: 322 lb 5.053 oz Body Mass Index (BMI) 50.1 Intake and Output for Last 24 Hours 06/29/17 06/30/17 07/01/17 23:59 23:59 23:59 Intake Total 2794 / 2794 1662 / 1662 150 / 150 Output Total 4075 / 4075 2400 / 2400 475 / 475 Balance -1281 / -1281 -738 / -738 -325 / -325 Labs (Last 48 Hours) 06/28/17 06/29/17 06/29/17 07:26 11:10 11:47 WBC 9.3 RBC 4.93 Hgb 12.7 L Hct 43.4 MCV 88.0 MCH 25.8 L MCHC 29.3 L RDW 15.6 H RDW Differential 49.8 H Plt Count 155 MPV 9.8 Specimen Type ART Sample Site R Radial pH 7.46 H Bicarbonate Actual 48.3 H POC Total CO2 > 50 Base Excess 24 H O2 Saturation 88 L O2 % 55 ABG pCO2 68.5 H* ABG pO2 55 L Respiration Rate 12 O2 Delivery Device Vent Vent Mode A-C Tidal Volume 450 POC PEEP 10 Blood Gas Notified Whom ICU MD Blood Gas Notified Time 725 Sodium Potassium Chloride Carbon Dioxide Anion Gap BUN Creatinine Estim Creat Clear Calc Est GFR (MDRD) Af Amer Est GFR (MDRD) Non-Af BUN/Creatinine Ratio Glucose Calcium POC Glucose 132 H 06/29/17 06/29/17 06/30/17 18:05 23:02 05:32 WBC RBC Hgb Hct MCV MCH MCHC RDW RDW Differential Plt Count MPV Specimen Type Sample Site pH Bicarbonate Actual POC Total CO2 Base Excess O2 Saturation O2 % ABG pCO2 ABG pO2 Respiration Rate O2 Delivery Device Vent Mode Tidal Volume POC PEEP Blood Gas Notified Whom Blood Gas Notified Time Sodium Potassium Chloride Carbon Dioxide Anion Gap BUN Creatinine Estim Creat Clear Calc Est GFR (MDRD) Af Amer Est GFR (MDRD) Non-Af BUN/Creatinine Ratio Glucose Calcium POC Glucose 160 H 166 H 196 H 06/30/17 06/30/17 06/30/17 08:15 12:46 17:28 WBC RBC Hgb Hct MCV MCH MCHC RDW RDW Differential Plt Count MPV Specimen Type Sample Site pH Bicarbonate Actual POC Total CO2 Base Excess O2 Saturation O2 % ABG pCO2 ABG pO2 Respiration Rate O2 Delivery Device Vent Mode Tidal Volume POC PEEP Blood Gas Notified Whom Blood Gas Notified Time Sodium 140 Potassium 3.7 Chloride 96 L Carbon Dioxide 39.0 H Anion Gap 5 BUN 46 H Creatinine 0.72 Estim Creat Clear Calc 121.25 Est GFR (MDRD) Af Amer 142 Est GFR (MDRD) Non-Af 118 BUN/Creatinine Ratio 63.4 H Glucose 158 H Calcium 9.3 POC Glucose 216 H 166 H 06/30/17 07/01/17 07/01/17 21:11 04:15 06:09 WBC RBC Hgb Hct MCV MCH MCHC RDW RDW Differential Plt Count MPV Specimen Type Sample Site pH Bicarbonate Actual POC Total CO2 Base Excess O2 Saturation O2 % ABG pCO2 ABG pO2 Respiration Rate O2 Delivery Device Vent Mode Tidal Volume POC PEEP Blood Gas Notified Whom Blood Gas Notified Time Sodium 145 Potassium 3.2 L Chloride 100 Carbon Dioxide 41.0 H Anion Gap 4 L BUN 47 H Creatinine 0.81 Estim Creat Clear Calc 107.78 Est GFR (MDRD) Af Amer 125 Est GFR (MDRD) Non-Af 104 BUN/Creatinine Ratio 58.0 H Glucose 112 H Calcium 9.3 POC Glucose 230 H 102 Microbiology 06/28/17 06:55 Sputum, Induced/Lukens Gram Stain - Final 06/28/17 06:55 Sputum, Induced/Lukens Respiratory Culture - Preliminary Gram positive milli Clinical Impression(s) from Imaging Studies Brain CT 06/20/17 13:13 IMPRESSION: Normal unenhanced CT scan of the brain. Electronically Signed: Akhil Izquierdo MD at 15:15 EDT Tel [phone], Service support , Chest X-Ray 06/20/17 13:15 IMPRESSION: The tip of the endotracheal tube is at 3.5 cm proximal to the byron. Cardiomegaly. Findings suggestive of vascular congestion with infiltrate and/or atelectasis is worse on the right side with thickening of the right minor fissure. Electronically Signed: Akhil Izquierdo MD at 14:01 EDT Tel [phone], Service support , Chest X-Ray 06/25/17 03:30 IMPRESSION: 1. Enteric tube is in appropriate position. 2. Improved aeration of the right lung since the previous study. Persistent airspace disease in the left lung may represent pneumonia. Electronically Signed: Laura Duarte MD at 7:56 EDT Tel , Service support , Chest X-Ray 06/25/17 10:33 IMPRESSION: 1. Enteric tube is in appropriate position. 2. Improved aeration of the right lung since the previous study. Electronically Signed: Katya Wright MD at 12:08 EDT , Service support , Chest X-Ray 06/27/17 07:26 IMPRESSION: Increasing right basilar atelectasis and/or infiltrate. The remaining examination is unchanged. Electronically Signed: Akhil Izquierdo MD at 12:57 EDT Tel [phone], Service support , Chest X-Ray 06/28/17 07:02 IMPRESSION: The tip of the endotracheal tube is at 5.3 cm proximal to the byron. Slight increase in the blunting of the left costophrenic angle. Electronically Signed: Akhil Izquierdo MD at 11:01 EDT Tel [phone], Service support , Medical Necessity - Tobacco Use Smoking Status: Current every day smoker Tobacco Use: - Assessment/Plan Active and Suspected Problems (Last Reviewed 06/13/17 @ 14:25 by Binta Isaac) Acute respiratory failure with hypoxia and hypercapnia (Acute) Pneumococcal pneumonia (Acute) Metabolic encephalopathy (Acute) Heart failure with reduced ejection fraction (Acute) RECOMMENDATIONS: 1. Continue BiPAP therapy 15/10 cm of water with naps and nightly. 2. Maintain oxygen saturations 88-90%. 3. Continue antibiotics. 4. Continue Lasix as ordered. 5. Continue prednisone 40 mg daily. 6. Continue aerosol regimen 7. Continue Lovenox for DVT prophylaxis 8. Potassium repletion currently underway. Schedule 40 mEq of potassium daily. IMPRESSIONS: 1. Acute on chronic combined respiratory failure Likely secondary to decompensated heart failure in the setting of outpatient noncompliance and possible HCAP. In addition, the patient is supposed to be utilizing BiPAP therapy in his home environment, but is noncompliant. The patient was initially maintained on a Bumex drip and had a significant amount of diuresis. The patient has done well following extubation. He is currently requiring intermittent BiPAP utilization with a pressure setting of 15/10 cm of water. Plan to continue supplemental oxygen to maintain saturations 80-90%. A 1.5 L fluid restriction will remain in place. Continue Lasix as ordered. Antibiotics and steroids will be continued. Encourage incentive spirometer use and mobilize patient as tolerated. 2. Acute on chronic systolic congestive heart failure/history of ischemic cardiomyopathy Continue medical management per cardiology recommendations. Diuretics will be continued. Imdur and hydralazine will be added to the patient's antihypertensive regimen. 3. Diabetes mellitus Continue sliding-scale insulin coverage and Accu-Cheks. 4. Morbid obesity/history of noncompliance/hypertension/seasonal allergies Complicates care, management, recovery and prognosis. Continue current supportive measures as noted above. Physical therapy to work with patient. This note was generated with [employer] dictation software. It may contain incorrect words, spelling, and punctuation that were not noted in checking the note before signing. DISPOSITION: The patient is medically stable for transfer out of the intensive care unit. Code Visit Inpatient E&M: 28506 Subs Hosp L3
[2017-07-01] MEDS: Ipratropium/Albuterol Sulfate 3 ML AMPUL.NEB INHALATION ×3 (07:01→19:40)
[2017-07-01] MEDS: CHLORHEXIDINE GLUC 2% CLOTH 1 EACH TOWELETTE TOPICAL (08:25)
[2017-07-01] MEDS: Aspirin 81 MG TAB.CHEW PO (08:25)
[2017-07-01] MEDS: predniSONE 20 MG Tablet 40 MG PO (08:25)
--- NOTE | 2017-07-01 08:45 | CASEMGMT ---
Addendum entered by Renae Tesfaye 07/01/17 11:52: MUKESH spoke w/Christina at [facility], they are starting precert, she asked about pt's prior level of functioning at the [facility]. SW asked pt, he states he got around with a walker, was independent w/most ADL's. The [facility] did help him w/showers, meds, and meals. SW let Christina at [facility] know. SW will continue to follow. BUDDY Cowart, PICKING MACHINE OPERATOR Original Note: Addendum entered by Renae Tesfaye 07/01/17 09:26: SW did double check w/pt regarding his social security number, we do have the correct number on file. BUDDY Cowart, PICKING MACHINE OPERATOR Original Note: Addendum entered by Renae Tesfaye 07/01/17 09:20: SW faxed updates and bipap settings to [facility]. SW will continue to follow. BUDDY Cowart, PICKING MACHINE OPERATOR Original Note: Christina from [facility] faxed pt's [place] card to this . MUKESH called [employer] and gave the number to Manda, she verified pt does indeed have [place]. Pt's ID # is [id number]. SW spoke w/Dr. Zimmerman this morning, pt will likely be ready for discharge on this weekend. SW asked Dr. Dneny, he states pt should be on bipap at the correction. SW called Christina, message left letting her know pt will be ready for discharge this weekend, will send updates shortly. SW also left in the message that pt will need to be on bipap at [facility], will send settings this morning. SW will continue to follow. BUDDY Cowart, PICKING MACHINE OPERATOR
[2017-07-01] MEDS: Clopidogrel Bisulfate 75 MG Tablet PO (09:47)
[2017-07-01] MEDS: Carvedilol 3.125 MG TABLET PO ×2 (09:47→20:59)
[2017-07-01] MEDS: Enoxaparin 40 MG/0.4 ML Syringe SC (09:47)
[2017-07-01] MEDS: Furosemide 40 MG Tablet PO ×2 (09:47→18:12)
[2017-07-01] MEDS: Losartan Potassium 25 MG Tablet PO (09:47)
[2017-07-01] MEDS: Nystatin Powder 15gm Bottle 1 APPLIC TOPICAL (09:48)
[2017-07-01] MEDS: Insulin Lispro 100 UNIT/ML INSULN.PEN SC ×3 (11:50→21:05)
[2017-07-01 11:56] LABS: Bedside Glucose 208 mg/dL (70-110)
--- NOTE | 2017-07-01 15:46 | CASEMGMT ---
MUKESH spoke with Susan at [facility]. She said she thinks they will get pre-cert for patient today. She will call the Tuesday MUKESH, Ana Paula, and leave her a message letting her know. Green sheet is on chart in case they do get insurance authorization. Ana Paula will let staff know. Plan: [facility] pending insurance approval. Nyla KEENE
--- NOTE | 2017-07-01 16:16 | PCM.PROGNOTE ---
Patient Problems: Active and Suspected Problems (Last Reviewed 06/13/17 @ 14:25 by Binta Isaac) Acute respiratory failure with hypoxia and hypercapnia (Acute) Pneumococcal pneumonia (Acute) Metabolic encephalopathy (Acute) Heart failure with reduced ejection fraction (Acute) Subjective: Patient was seen and examined today, he remains on nasal cannula O2, pulmonary medicine stated he was stable to transfer to PCU. - Physical Exam General: Alert, Oriented x3, Cooperative, No apparent distress, Well developed, Well nourished HEENT: Atraumatic, PERRLA, EOMI, Normocephalic Oral: Moist Mucosa Neck: Supple, No JVD, No Nuchal Rigidity, Trachea Midline, Thyroid Normal Size and Texture Lungs: Clear to auscultation, Normal air movement, No rhonchi, No wheeze, No rales Cardiovascular: Regular rate, Regular Rhythm, Normal S1, Normal S2, No murmurs, PMI Normal, No rub noted, No Gallop Abdomen: Bowel Sounds Present, Soft, Non Tender, Non-Distended, Obese Extremities: No clubbing, No cyanosis, No edema, Capillary Refill Less than 3 Seconds Skin: No rashes, No breakdown Musculoskeletal: No Tenderness to Palpation of Joints or Extremities Neurological: Cranial nerves II-XII grossly intact, Neuro grossly intact, Sensory exam intact to light touch and pain, Coordination normal Psych/Mental Status: Normal Affect, Appropriate, Alert and oriented to time, place, person, mood and affect Vital Signs Temp Pulse Resp BP Pulse Ox 98.0 F 71 33 H 125/91 H 92 07/01/17 11:50 07/01/17 15:46 07/01/17 15:46 07/01/17 11:50 07/01/17 15:46 Oxygen Flow Rate (L/min) 6 Oxygen Delivery Method Nasal Cannula Weight: 146.2 kg Body Mass Index (BMI) 50.1 Intake and Output for Last 24 Hours 06/29/17 06/30/17 07/01/17 23:59 23:59 23:59 Intake Total 2794 / 2794 1662 / 1662 831 / 831 Output Total 4075 / 4075 2400 / 2400 875 / 875 Balance -1281 / -1281 -738 / -738 -44 / -44 Microbiology Past 72 Hours 06/28/17 06:55 Gram Stain - Final Sputum, Induced/Lukens Respiratory Culture - Final Corynebacterium striatum Laboratory Tests Past 24 Hrs 07/01/17 04:15 Sodium 145 Potassium 3.2 L Chloride 100 Carbon Dioxide 41.0 H Anion Gap 4 L BUN 47 H Creatinine 0.81 Estim Creat Clear Calc 107.78 Est GFR (MDRD) Af Amer 125 Est GFR (MDRD) Non-Af 104 BUN/Creatinine Ratio 58.0 H Glucose 112 H Calcium 9.3 POC Glucose 07/01/17 07/01/17 06/30/17 11:47 06:09 21:11 POC Glucose 208 H 102 230 H 06/30/17 17:28 POC Glucose 166 H Medical Necessity - Tobacco Use Smoking Status: Current every day smoker Tobacco Use: - Assessment/Plan Active and Suspected Problems (Last Reviewed 06/13/17 @ 14:25 by Binta Isaac) Acute respiratory failure with hypoxia and hypercapnia (Acute) Pneumococcal pneumonia (Acute) Metabolic encephalopathy (Acute) Heart failure with reduced ejection fraction (Acute) #1 combined respiratory failure secondary to acute diastolic congestive heart failure-patient is currently on nasal cannula O2 and is stable for transfer to PCU #2 acute diastolic congestive heart failure-EF 45%, cardiology is participating in his care #3 chronic obstructive pulmonary disease #4 morbid obesity #5 type 2 diabetes #6 coronary artery disease-status post drug-eluting stent placement circumflex artery postop day #3 continue medications per cardiology #7 obstructive sleep apnea #8 HCAP- corynebacterium striatum -pulmonary medicine is directing antibiotic coverage - he remains on Levaquin #9 generalized debility-PT and OT will continue, patient will need placement in a residential facility, we are awaiting insurance approval Code Visit Inpatient E&M: 99924 Subs Hosp L2
[2017-07-01 16:41] LABS: Bedside Glucose 213 mg/dL (70-110)
--- NOTE | 2017-07-01 18:48 | PCM.PN.CARD ---
Subjectve: The patient is now status post noninvasive and invasive cardiovascular evaluation. He appears to have had overall improvement. He has been moved from the ICU to the PCU. Objective: Vital Signs Temp Pulse Resp BP Pulse Ox 99.2 F H 70 20 H 115/70 92 07/01/17 16:27 07/01/17 16:27 07/01/17 16:27 07/01/17 16:27 07/01/17 16:27 Oxygen Flow Rate (L/min) 5 Oxygen Delivery Method Nasal Cannula Weight: 322 lb 5.053 oz Body Mass Index (BMI) 50.1 Intake and Output for Last 24 Hours 06/29/17 06/30/17 07/01/17 23:59 23:59 23:59 Intake Total 2794 / 2794 1662 / 1662 1281 / 1281 Output Total 4075 / 4075 2400 / 2400 875 / 875 Balance -1281 / -1281 -738 / -738 406 / 406 General: Awake, Cooperative, No Acute Distress Lungs: Diminished Arturo Bases Cardiovascular: Regular Rhythm, Normal S1, Normal S2 Abdomen: Bowel Sounds Present, Soft, Non Tender Extremities: Moderate RLE Edema, Moderate LLE Edema 07/01/17 04:15: Sodium 145, Potassium 3.2 L, Chloride 100, Carbon Dioxide 41.0 H, Anion Gap 4 L, BUN 47 H, Creatinine 0.81, Est GFR (MDRD) Af Amer 125, Est GFR (MDRD) Non-Af 104, BUN/Creatinine Ratio 58.0 H, Glucose 112 H, Calcium 9.3 Rhythm: EKG: ECHO: Stress Test: Cardiac Cath: PCI: CT Surgery: Holter monitor: EPS: PPM: CXR: Chest CT Scan: Medical Necessity - Tobacco Use Smoking Status: Current every day smoker Tobacco Use: - Assessment/Plan 1. CAD status post PCI The patient does have a history of underlying CAD. He is undergone previous PCI in the past. He is now status post diagnostic cardiac catheterization. He required PCI to the LCx system. At the present time he continues medical management. 2. Ischemic mediated cardiomyopathy He does have an underlying ischemic mediated cardiomyopathy. His most recent echocardiogram report has been reviewed. At the present time he is continuing medical management as best as tolerated based upon a combination of vital signs, very function, renal function etc. 3. Acute on chronic systolic mediated CHF The patient did present with concerns of acute on chronic systolic mediated CHF. He has been undergoing evaluation and care. This has included IV diuretic therapy. He has had significant diuresis. His medications are being adjusted. This includes transitioning from IV diuretics to oral diuretics. 4. Hyperlipidemia He will continue medical therapy as deemed appropriate and able. 5. Hypertension His blood pressures are being followed. His medications are being adjusted during this time as his blood pressures fluctuate. This note was generated with [employer] dictation software. It may contain incorrect words, spelling, and punctuation that were not noted in checking the note before signing.
[2017-07-01 21:15] LABS: Bedside Glucose 164 mg/dL (70-110)
[2017-07-02] VITALS (15 sets, daily range): BP systolic 108–166; BP diastolic 58–80; PULSE 63–91; RESP 12–22; TEMP 36.6–37.1; O2SAT 91–96
[2017-07-02] MEDS: 0.9% NaCl Peripheral Flush Adult/Peds IV (05:19)
[2017-07-02 05:58] LABS: Anion Gap 6 (5-15); BUN 34 mg/dL (7-18); BUN/Creat Ratio 52.7 RATIO (10-20); Chloride 105 mmol/L (98-107); Creatinine, Serum 0.64 mg/dL (0.70-1.30); EST Glomerular Filtration Rate 135 mL/min (>60); Est Glom Filt Rate - Afr Amer 163 mL/min (>60); Estimated Creatinine Clearance 136.41 ml/min; Glucose 107 mg/dL (74-106); Potassium 3.2 mmol/L (3.5-5.1); Sodium Level 148 mmol/L (136-145)
[2017-07-02] MEDS: levoFLOXacin 750 MG Tablet PO ×2 (06:48→08:49)
[2017-07-02 07:01] LABS: Bedside Glucose 110 mg/dL (70-110)
[2017-07-02] MEDS: Ipratropium/Albuterol Sulfate 3 ML AMPUL.NEB INHALATION ×3 (07:43→19:03)
--- NOTE | 2017-07-02 08:36 | PCM.PROGNOTE ---
Patient Problems: Active and Suspected Problems (Last Reviewed 06/13/17 @ 14:25 by Binta Isaac) Acute respiratory failure with hypoxia and hypercapnia (Acute) Pneumococcal pneumonia (Acute) Metabolic encephalopathy (Acute) Heart failure with reduced ejection fraction (Acute) Subjective: The patient was seen and examined at the bedside this morning. Events from the last 24 hours have been reviewed. The patient is currently afebrile, hemodynamically stable and maintaining appropriate oxygen saturations on BiPAP currently. Potassium is low this morning at 3.2. The patient does report subjective improvement in his breathing quality. Objective: The patient's most recent lab work, culture data and imaging studies have all been personally reviewed. Blood and urine cultures have shown no growth to date. Repeat sputum culture dated June 28 was positive for the presence of a gram-positive milli. Strep and urine Legionella antigens were both negative. Rapid influenza screen was negative. Surface echocardiogram dated June 21, 2017 revealed mild segmental systolic dysfunction with an ejection fraction of 50%. - Physical Exam General: Alert, Cooperative, No apparent distress, - - Sitting comfortably in bed watching TV HEENT: Atraumatic, PERRLA, Normocephalic Oral: No Gingival or Mucosal Lesions/ Ulcerations Neck: Supple, No Nodes, Trachea Midline Lungs: No rhonchi, No wheeze, No rales, Diminished Cardiovascular: Regular rate, Regular Rhythm, Normal S1, Normal S2, No murmurs Abdomen: Bowel Sounds Present, Soft, Non Tender, Obese Extremities: No clubbing, No cyanosis, No edema Skin: - - No significant change from previous. Musculoskeletal: No Tenderness to Palpation of Joints or Extremities, No Muscle Wasting Lymphatic: No Cervical, Supraclavicular, or Inguinal Adenopathy Neurological: Neuro grossly intact Psych/Mental Status: Normal Affect, Appropriate Vital Signs Temp Pulse Resp BP Pulse Ox 97.8 F 75 20 H 108/64 94 07/02/17 04:00 07/02/17 07:08 07/02/17 04:00 07/02/17 04:00 07/02/17 04:00 Oxygen Flow Rate (L/min) 5 Oxygen Delivery Method Bi-pap Weight: 321 lb 6.943 oz Body Mass Index (BMI) 50.1 Intake and Output for Last 24 Hours 06/30/17 07/01/17 07/02/17 23:59 23:59 23:59 Intake Total 1662 / 1662 1281 / 1281 300 / 300 Output Total 2400 / 2400 875 / 875 0 / 0 Balance -738 / -738 406 / 406 300 / 300 Microbiology Past 72 Hours 06/28/17 06:55 Gram Stain - Final Sputum, Induced/Lukens Respiratory Culture - Final Corynebacterium striatum Laboratory Tests Past 24 Hrs 07/02/17 05:20 Sodium 148 H Potassium 3.2 L Chloride 105 Carbon Dioxide 37.0 H Anion Gap 6 BUN 34 H Creatinine 0.64 L Estim Creat Clear Calc 136.41 Est GFR (MDRD) Af Amer 163 Est GFR (MDRD) Non-Af 135 BUN/Creatinine Ratio 52.7 H Glucose 107 H Calcium 9.0 POC Glucose 07/02/17 07/01/17 07/01/17 06:48 21:04 16:25 POC Glucose 110 164 H 213 H 07/01/17 11:47 POC Glucose 208 H Clinical Impression(s) from Imaging Studies Brain CT 06/20/17 13:13 IMPRESSION: Normal unenhanced CT scan of the brain. Electronically Signed: Akhil Izquierdo MD at 15:15 EDT Tel [phone], Service support , Chest X-Ray 06/20/17 13:15 IMPRESSION: The tip of the endotracheal tube is at 3.5 cm proximal to the byron. Cardiomegaly. Findings suggestive of vascular congestion with infiltrate and/or atelectasis is worse on the right side with thickening of the right minor fissure. Electronically Signed: Akhil Izquierdo MD at 14:01 EDT Tel [phone], Service support , Chest X-Ray 06/25/17 03:30 IMPRESSION: 1. Enteric tube is in appropriate position. 2. Improved aeration of the right lung since the previous study. Persistent airspace disease in the left lung may represent pneumonia. Electronically Signed: Laura Duarte MD at 7:56 EDT Tel , Service support , Chest X-Ray 06/25/17 10:33 IMPRESSION: 1. Enteric tube is in appropriate position. 2. Improved aeration of the right lung since the previous study. Electronically Signed: Katya Wright MD at 12:08 EDT , Service support , Chest X-Ray 06/27/17 07:26 IMPRESSION: Increasing right basilar atelectasis and/or infiltrate. The remaining examination is unchanged. Electronically Signed: Akhil Izquierdo MD at 12:57 EDT Tel [phone], Service support , Chest X-Ray 06/28/17 07:02 IMPRESSION: The tip of the endotracheal tube is at 5.3 cm proximal to the byron. Slight increase in the blunting of the left costophrenic angle. Electronically Signed: Akhil Izquierdo MD at 11:01 EDT Tel [phone], Service support , Medical Necessity - Tobacco Use Smoking Status: Current every day smoker Tobacco Use: - Assessment/Plan Active and Suspected Problems (Last Reviewed 06/13/17 @ 14:25 by Binta Isaac) Acute respiratory failure with hypoxia and hypercapnia (Acute) Pneumococcal pneumonia (Acute) Metabolic encephalopathy (Acute) Heart failure with reduced ejection fraction (Acute) RECOMMENDATIONS: 1. Continue BiPAP therapy 15/10 cm of water with naps and nightly. 2. Maintain oxygen saturations 88-90%. 3. Continue antibiotics. 4. Continue Lasix as ordered. 5. Continue prednisone 40 mg daily. 6. Continue aerosol regimen 7. Continue Lovenox for DVT prophylaxis 8. Potassium repletion IMPRESSIONS: 1. Acute on chronic combined respiratory failure Likely secondary to decompensated heart failure in the setting of outpatient noncompliance and possible HCAP. In addition, the patient is supposed to be utilizing BiPAP therapy in his home environment, but is noncompliant. The patient was initially maintained on a Bumex drip and had a significant amount of diuresis. The patient has done well following extubation. He is currently requiring intermittent BiPAP utilization with a pressure setting of 15/10 cm of water. Plan to continue supplemental oxygen to maintain saturations 88-90%. A 1.5 L fluid restriction will remain in place. Continue Lasix as ordered. Antibiotics and steroids will be continued. Encourage incentive spirometer use and mobilize patient as tolerated. 2. Acute on chronic systolic congestive heart failure/history of ischemic cardiomyopathy Continue medical management per cardiology recommendations. Diuretics will be continued. 3. Diabetes mellitus Continue sliding-scale insulin coverage and Accu-Cheks. 4. Morbid obesity/history of noncompliance/hypertension/seasonal allergies Complicates care, management, recovery and prognosis. Continue current supportive measures as noted above. Physical therapy to work with patient. This note was generated with [employer] dictation software. It may contain incorrect words, spelling, and punctuation that were not noted in checking the note before signing. Code Visit Inpatient E&M: 09383 Subs Hosp L2
--- NOTE | 2017-07-02 08:40 | PN_ITS ---
Patient Problems: Active and Suspected Problems (Last Reviewed 06/13/17 @ 14:25 by Binta Isaac) Acute respiratory failure with hypoxia and hypercapnia (Acute) Pneumococcal pneumonia (Acute) Metabolic encephalopathy (Acute) Heart failure with reduced ejection fraction (Acute) Subjective: The patient was seen and examined at the bedside this morning. Events from the last 24 hours have been reviewed. The patient is currently afebrile, hemodynamically stable and maintaining appropriate oxygen saturations on BiPAP currently. Potassium is low this morning at 3.2. The patient does report subjective improvement in his breathing quality. Objective: The patient's most recent lab work, culture data and imaging studies have all been personally reviewed. Blood and urine cultures have shown no growth to date. Repeat sputum culture dated June 28 was positive for the presence of a gram-positive milli. Strep and urine Legionella antigens were both negative. Rapid influenza screen was negative. Surface echocardiogram dated June 21, 2017 revealed mild segmental systolic dysfunction with an ejection fraction of 50%. - Physical Exam General: Alert, Cooperative, No apparent distress, - - Sitting comfortably in bed watching TV HEENT: Atraumatic, PERRLA, Normocephalic Oral: No Gingival or Mucosal Lesions/ Ulcerations Neck: Supple, No Nodes, Trachea Midline Lungs: No rhonchi, No wheeze, No rales, Diminished Cardiovascular: Regular rate, Regular Rhythm, Normal S1, Normal S2, No murmurs Abdomen: Bowel Sounds Present, Soft, Non Tender, Obese Extremities: No clubbing, No cyanosis, No edema Skin: - - No significant change from previous. Musculoskeletal: No Tenderness to Palpation of Joints or Extremities, No Muscle Wasting Lymphatic: No Cervical, Supraclavicular, or Inguinal Adenopathy Neurological: Neuro grossly intact Psych/Mental Status: Normal Affect, Appropriate Vital Signs Temp Pulse Resp BP Pulse Ox 97.8 F 75 20 H 108/64 94 07/02/17 04:00 07/02/17 07:08 07/02/17 04:00 07/02/17 04:00 07/02/17 04:00 Oxygen Flow Rate (L/min) 5 Oxygen Delivery Method Bi-pap Weight: 321 lb 6.943 oz Body Mass Index (BMI) 50.1 Intake and Output for Last 24 Hours 06/30/17 07/01/17 07/02/17 23:59 23:59 23:59 Intake Total 1662 / 1662 1281 / 1281 300 / 300 Output Total 2400 / 2400 875 / 875 0 / 0 Balance -738 / -738 406 / 406 300 / 300 Microbiology Past 72 Hours 06/28/17 06:55 Gram Stain - Final Sputum, Induced/Lukens Respiratory Culture - Final Corynebacterium striatum Laboratory Tests Past 24 Hrs 07/02/17 05:20 Sodium 148 H Potassium 3.2 L Chloride 105 Carbon Dioxide 37.0 H Anion Gap 6 BUN 34 H Creatinine 0.64 L Estim Creat Clear Calc 136.41 Est GFR (MDRD) Af Amer 163 Est GFR (MDRD) Non-Af 135 BUN/Creatinine Ratio 52.7 H Glucose 107 H Calcium 9.0 POC Glucose 07/02/17 07/01/17 07/01/17 06:48 21:04 16:25 POC Glucose 110 164 H 213 H 07/01/17 11:47 POC Glucose 208 H Clinical Impression(s) from Imaging Studies Brain CT 06/20/17 13:13 IMPRESSION: Normal unenhanced CT scan of the brain. Electronically Signed: Akhil Izquierdo MD at 15:15 EDT Tel [phone], Service support , Chest X-Ray 06/20/17 13:15 IMPRESSION: The tip of the endotracheal tube is at 3.5 cm proximal to the byron. Cardiomegaly. Findings suggestive of vascular congestion with infiltrate and/or atelectasis is worse on the right side with thickening of the right minor fissure. Electronically Signed: Akhil Izquierdo MD at 14:01 EDT Tel [phone], Service support , Chest X-Ray 06/25/17 03:30 IMPRESSION: 1. Enteric tube is in appropriate position. 2. Improved aeration of the right lung since the previous study. Persistent airspace disease in the left lung may represent pneumonia. Electronically Signed: Laura Duarte MD at 7:56 EDT Tel , Service support , Chest X-Ray 06/25/17 10:33 IMPRESSION: 1. Enteric tube is in appropriate position. 2. Improved aeration of the right lung since the previous study. Electronically Signed: Katya Wright MD at 12:08 EDT , Service support , Chest X-Ray 06/27/17 07:26 IMPRESSION: Increasing right basilar atelectasis and/or infiltrate. The remaining examination is unchanged. Electronically Signed: Akhil Izquierdo MD at 12:57 EDT Tel [phone], Service support , Chest X-Ray 06/28/17 07:02 IMPRESSION: The tip of the endotracheal tube is at 5.3 cm proximal to the byron. Slight increase in the blunting of the left costophrenic angle. Electronically Signed: Akhil Izquierdo MD at 11:01 EDT Tel [phone], Service support , Medical Necessity - Tobacco Use Smoking Status: Current every day smoker Tobacco Use: - Assessment/Plan Active and Suspected Problems (Last Reviewed 06/13/17 @ 14:25 by Binta Isaac) Acute respiratory failure with hypoxia and hypercapnia (Acute) Pneumococcal pneumonia (Acute) Metabolic encephalopathy (Acute) Heart failure with reduced ejection fraction (Acute) RECOMMENDATIONS: 1. Continue BiPAP therapy 15/10 cm of water with naps and nightly. 2. Maintain oxygen saturations 88-90%. 3. Continue antibiotics. 4. Continue Lasix as ordered. 5. Continue prednisone 40 mg daily. 6. Continue aerosol regimen 7. Continue Lovenox for DVT prophylaxis 8. Potassium repletion IMPRESSIONS: 1. Acute on chronic combined respiratory failure Likely secondary to decompensated heart failure in the setting of outpatient noncompliance and possible HCAP. In addition, the patient is supposed to be utilizing BiPAP therapy in his home environment, but is noncompliant. The patient was initially maintained on a Bumex drip and had a significant amount of diuresis. The patient has done well following extubation. He is currently requiring intermittent BiPAP utilization with a pressure setting of 15/10 cm of water. Plan to continue supplemental oxygen to maintain saturations 88-90%. A 1.5 L fluid restriction will remain in place. Continue Lasix as ordered. Antibiotics and steroids will be continued. Encourage incentive spirometer use and mobilize patient as tolerated. 2. Acute on chronic systolic congestive heart failure/history of ischemic cardiomyopathy Continue medical management per cardiology recommendations. Diuretics will be continued. 3. Diabetes mellitus Continue sliding-scale insulin coverage and Accu-Cheks. 4. Morbid obesity/history of noncompliance/hypertension/seasonal allergies Complicates care, management, recovery and prognosis. Continue current supportive measures as noted above. Physical therapy to work with patient. This note was generated with [employer] dictation software. It may contain incorrect words, spelling, and punctuation that were not noted in checking the note before signing. Code Visit Inpatient E&M: 89877 Subs Hosp L2
[2017-07-02] MEDS: predniSONE 20 MG Tablet 40 MG PO (08:46)
[2017-07-02] MEDS: Carvedilol 3.125 MG TABLET PO ×2 (08:47→22:06)
[2017-07-02] MEDS: Aspirin 81 MG TAB.CHEW PO (08:47)
[2017-07-02] MEDS: Enoxaparin 40 MG/0.4 ML Syringe SC (08:48)
[2017-07-02] MEDS: Losartan Potassium 25 MG Tablet PO (08:48)
[2017-07-02] MEDS: Furosemide 40 MG Tablet PO ×2 (08:48→16:59)
[2017-07-02] MEDS: Nystatin Powder 15gm Bottle 1 APPLIC TOPICAL ×2 (08:49→22:07)
[2017-07-02] MEDS: Clopidogrel Bisulfate 75 MG Tablet PO (08:49)
[2017-07-02] MEDS: Insulin Lispro 100 UNIT/ML INSULN.PEN SC ×3 (11:56→22:07)
[2017-07-02 12:05] LABS: Bedside Glucose 207 mg/dL (70-110)
--- NOTE | 2017-07-02 12:31 | PCM.PN.HOSP ---
Patient Problems: Active and Suspected Problems (Last Reviewed 06/13/17 @ 14:25 by Binta Isaac) Acute respiratory failure with hypoxia and hypercapnia (Acute) Pneumococcal pneumonia (Acute) Metabolic encephalopathy (Acute) Heart failure with reduced ejection fraction (Acute) Subjective: Seen and examined. Shortness of breath is improving. He is was on 5 L of oxygen by nasal cannula at time of review. He denied any fever or chills, any cough, any chest pain, abdominal pain, any diarrhea vomiting. Review of systems otherwise negative. Vitals/I&O's: Vital Signs Temp Pulse Resp BP Pulse Ox 98.7 F 85 18 109/58 L 96 07/02/17 09:58 07/02/17 11:07 07/02/17 09:58 07/02/17 09:58 07/02/17 09:58 Oxygen Flow Rate (L/min) 5 Oxygen Delivery Method Nasal Cannula Weight: 321 lb 6.943 oz Body Mass Index (BMI) 50.1 Intake and Output for Last 24 Hours 06/30/17 07/01/17 07/02/17 23:59 23:59 23:59 Intake Total 1662 / 1662 1281 / 1281 780 / 780 Output Total 2400 / 2400 875 / 875 175 / 175 Balance -738 / -738 406 / 406 605 / 605 General: Alert, Oriented x3, Cooperative, No apparent distress HEENT: Atraumatic, PERRLA, EOMI, Normocephalic Oral: Moist Mucosa Neck: Supple, No JVD, Negative Carotid Bruits Lungs: - - Has bilateral crackles in lung bases. Lungs otherwise clear to auscultation. Cardiovascular: Regular rate, Regular Rhythm, Normal S1, Normal S2, No murmurs Abdomen: Bowel Sounds Present, Soft, Non Tender, Non-Distended, No Hepato-splenomegaly Extremities: No clubbing, No cyanosis, No edema, Capillary Refill Less than 3 Seconds Skin: No rashes, No breakdown Musculoskeletal: No Tenderness to Palpation of Joints or Extremities Lymphatic: No Cervical, Supraclavicular, or Inguinal Adenopathy Neurological: Cranial nerves II-XII grossly intact Psych/Mental Status: Normal Affect, Appropriate, Alert and oriented to time, place, person, mood and affect Microbiology Past 72 Hours 06/28/17 06:55 Sputum, Induced/Lukens Gram Stain - Final 06/28/17 06:55 Sputum, Induced/Lukens Respiratory Culture - Final Corynebacterium striatum Laboratory Results 07/01/17 16:25: POC Glucose 213 H 07/01/17 21:04: POC Glucose 164 H 07/02/17 05:20: Sodium 148 H, Potassium 3.2 L, Chloride 105, Carbon Dioxide 37.0 H, Anion Gap 6, BUN 34 H, Creatinine 0.64 L, Estim Creat Clear Calc 136.41, Est GFR (MDRD) Af Amer 163, Est GFR (MDRD) Non-Af 135, BUN/Creatinine Ratio 52.7 H, Glucose 107 H, Calcium 9.0 07/02/17 06:48: POC Glucose 110 07/02/17 11:54: POC Glucose 207 H Current Medications Al Hydroxide/Mg Hydroxide (Mylanta Ii) 30 ml PO Q4H PRN PRN PRN Reason: Gi distress Albuterol Sulfate (Ventolin Aerosols) 2.5 mg INHALATION Q2H PRN PRN PRN Reason: SOB &/OR WHEEZING Albuterol/Ipratropium (Duoneb) 3 ml INHALATION Q6HWA.RT [facility] Last Admin: 07/02/17 07:43 Dose: 3 ml Aspirin (Aspirin, Baby) 81 mg PO DAILY@0800 [facility] Last Admin: 07/02/17 08:47 Dose: 81 mg Carvedilol (Coreg) 3.125 mg PO BID [facility] Last Admin: 07/02/17 08:47 Dose: 3.125 mg Chlorhexidine Gluconate () 1 each TOPICAL DAILY [facility] Last Admin: 07/02/17 08:47 Dose: Not Given Clopidogrel Bisulfate (Plavix) 75 mg PO DAILY [facility] Last Admin: 07/02/17 08:49 Dose: 75 mg Enoxaparin Sodium (Lovenox) 40 mg SC DAILY [facility] Last Admin: 07/02/17 08:48 Dose: 40 mg Furosemide (Lasix) 40 mg PO BID@1000,1800 [facility] Last Admin: 07/02/17 08:48 Dose: 40 mg Sodium Chloride () 250 mls @ 15 mls/hr IV .[id number] PRN PRN Reason: SALINE FLUSH Last Admin: 06/20/17 18:33 Dose: 15 mls/hr Sodium Chloride () 1,000 mls @ 15 mls/hr IV .Q48H [facility] PRN Reason: KVO Last Admin: 07/01/17 16:30 Dose: Not Given Insulin Human Lispro (Humalog [place]pen (Bkc)) 0 unit SC ACHS [facility] PRN Reason: Protocol Last Admin: 07/02/17 11:56 Dose: 2 u Levofloxacin (Levaquin Tablet) 750 mg PO DAILY@0600 [facility] Stop: 07/05/17 06:01 Last Admin: 07/02/17 08:49 Dose: 750 mg Losartan Potassium (Cozaar) 25 mg PO DAILY [facility] Last Admin: 07/02/17 08:48 Dose: 25 mg Nystatin (Mycostatin Powder) 1 applic TOPICAL BID [facility] PRN Reason: Protocol Last Admin: 07/02/17 08:49 Dose: 1 applicatio Ondansetron HCl (Zofran) 4 mg IV Q8H PRN PRN PRN Reason: Nausea Polyethylene Glycol (Miralax) 17 gm GT BID PRN PRN PRN Reason: Constipation Potassium Chloride (K-Dur) 40 meq PO DAILYCM [facility] Last Admin: 07/02/17 08:46 Dose: 40 meq Prednisone () 40 mg PO DAILY@0800 [facility] Last Admin: 07/02/17 08:46 Dose: 40 mg Sodium Chloride () 5 - 30 ml IV UD PRN PRN Reason: SALINE FLUSH Last Admin: 07/02/17 05:19 Dose: 20 ml Medical Necessity - Tobacco Use Smoking Status: Current every day smoker Tobacco Use: - Assessment/Plan Active and Suspected Problems (Last Reviewed 06/13/17 @ 14:25 by Binta Isaac) Acute respiratory failure with hypoxia and hypercapnia (Acute) Pneumococcal pneumonia (Acute) Metabolic encephalopathy (Acute) Heart failure with reduced ejection fraction (Acute) 1. Acute on chronic hypoxic and Hypercapnic respiratory failure likely due to acute exacerbation of CHF Patient says shortness of breath is getting better. On 5 L of oxygen at time of review. Was saturating at 96% In positive balance by about 406 mls of the last 24 hours. Titrate oxygen to maintain saturation above 92%. On p.o. Lasix 40 twice daily. 2. Acute CHF exacerbation EF is 45% per echo. On lasix 40mg bid PO and losartan. will monitor 3. CAD s/p stent in circumflex artery today is POD 4. stable cardiology on board on aspirin, carvedilol, plavix, and imdur 4. COPD: Stable. On prednisone 40 mg daily started 06/30/2017. A complete 5 day course. On breathing treatments 5. HCAP: sputum cultured corynebacterium. On levaquin PO. Pulmo on board 6. DM2: on ISS. 7. CAD: stable. On aspirin and plavix 8. DVT prophylaxis; heaprin Code Visit Inpatient E&M: 09153 Subs Hosp L3
--- NOTE | 2017-07-02 12:38 | PN_ITS ---
Patient Problems: Active and Suspected Problems (Last Reviewed 06/13/17 @ 14:25 by Binta Isaac) Acute respiratory failure with hypoxia and hypercapnia (Acute) Pneumococcal pneumonia (Acute) Metabolic encephalopathy (Acute) Heart failure with reduced ejection fraction (Acute) Subjective: Seen and examined. Shortness of breath is improving. He is was on 5 L of oxygen by nasal cannula at time of review. He denied any fever or chills, any cough, any chest pain, abdominal pain, any diarrhea vomiting. Review of systems otherwise negative. Vitals/I&O's: Vital Signs Temp Pulse Resp BP Pulse Ox 98.7 F 85 18 109/58 L 96 07/02/17 09:58 07/02/17 11:07 07/02/17 09:58 07/02/17 09:58 07/02/17 09:58 Oxygen Flow Rate (L/min) 5 Oxygen Delivery Method Nasal Cannula Weight: 321 lb 6.943 oz Body Mass Index (BMI) 50.1 Intake and Output for Last 24 Hours 06/30/17 07/01/17 07/02/17 23:59 23:59 23:59 Intake Total 1662 / 1662 1281 / 1281 780 / 780 Output Total 2400 / 2400 875 / 875 175 / 175 Balance -738 / -738 406 / 406 605 / 605 General: Alert, Oriented x3, Cooperative, No apparent distress HEENT: Atraumatic, PERRLA, EOMI, Normocephalic Oral: Moist Mucosa Neck: Supple, No JVD, Negative Carotid Bruits Lungs: - - Has bilateral crackles in lung bases. Lungs otherwise clear to auscultation. Cardiovascular: Regular rate, Regular Rhythm, Normal S1, Normal S2, No murmurs Abdomen: Bowel Sounds Present, Soft, Non Tender, Non-Distended, No Hepato- splenomegaly Extremities: No clubbing, No cyanosis, No edema, Capillary Refill Less than 3 Seconds Skin: No rashes, No breakdown Musculoskeletal: No Tenderness to Palpation of Joints or Extremities Lymphatic: No Cervical, Supraclavicular, or Inguinal Adenopathy Neurological: Cranial nerves II-XII grossly intact Psych/Mental Status: Normal Affect, Appropriate, Alert and oriented to time, place, person, mood and affect Microbiology Past 72 Hours 06/28/17 06:55 Sputum, Induced/Lukens Gram Stain - Final 06/28/17 06:55 Sputum, Induced/Lukens Respiratory Culture - Final Corynebacterium striatum Laboratory Results 07/01/17 16:25: POC Glucose 213 H 07/01/17 21:04: POC Glucose 164 H 07/02/17 05:20: Sodium 148 H, Potassium 3.2 L, Chloride 105, Carbon Dioxide 37.0 H, Anion Gap 6, BUN 34 H, Creatinine 0.64 L, Estim Creat Clear Calc 136.41 , Est GFR (MDRD) Af Amer 163, Est GFR (MDRD) Non-Af 135, BUN/Creatinine Ratio 52.7 H, Glucose 107 H, Calcium 9.0 07/02/17 06:48: POC Glucose 110 07/02/17 11:54: POC Glucose 207 H Current Medications Al Hydroxide/Mg Hydroxide (Mylanta Ii) 30 ml PO Q4H PRN PRN PRN Reason: Gi distress Albuterol Sulfate (Ventolin Aerosols) 2.5 mg INHALATION Q2H PRN PRN PRN Reason: SOB &/OR WHEEZING Albuterol/Ipratropium (Duoneb) 3 ml INHALATION Q6HWA.RT [facility] Last Admin: 07/02/17 07:43 Dose: 3 ml Aspirin (Aspirin, Baby) 81 mg PO DAILY@0800 [facility] Last Admin: 07/02/17 08:47 Dose: 81 mg Carvedilol (Coreg) 3.125 mg PO BID [facility] Last Admin: 07/02/17 08:47 Dose: 3.125 mg Chlorhexidine Gluconate () 1 each TOPICAL DAILY [facility] Last Admin: 07/02/17 08:47 Dose: Not Given Clopidogrel Bisulfate (Plavix) 75 mg PO DAILY [facility] Last Admin: 07/02/17 08:49 Dose: 75 mg Enoxaparin Sodium (Lovenox) 40 mg SC DAILY [facility] Last Admin: 07/02/17 08:48 Dose: 40 mg Furosemide (Lasix) 40 mg PO BID@1000,1800 [facility] Last Admin: 07/02/17 08:48 Dose: 40 mg Sodium Chloride () 250 mls @ 15 mls/hr IV .[id number] PRN PRN Reason: SALINE FLUSH Last Admin: 06/20/17 18:33 Dose: 15 mls/hr Sodium Chloride () 1,000 mls @ 15 mls/hr IV .Q48H [facility] PRN Reason: KVO Last Admin: 07/01/17 16:30 Dose: Not Given Insulin Human Lispro (Humalog Teaganpen (Bkc)) 0 unit SC ACHS [facility] PRN Reason: Protocol Last Admin: 07/02/17 11:56 Dose: 2 u Levofloxacin (Levaquin Tablet) 750 mg PO DAILY@0600 [facility] Stop: 07/05/17 06:01 Last Admin: 07/02/17 08:49 Dose: 750 mg Losartan Potassium (Cozaar) 25 mg PO DAILY [facility] Last Admin: 07/02/17 08:48 Dose: 25 mg Nystatin (Mycostatin Powder) 1 applic TOPICAL BID [facility] PRN Reason: Protocol Last Admin: 07/02/17 08:49 Dose: 1 applicatio Ondansetron HCl (Zofran) 4 mg IV Q8H PRN PRN PRN Reason: Nausea Polyethylene Glycol (Miralax) 17 gm GT BID PRN PRN PRN Reason: Constipation Potassium Chloride (K-Dur) 40 meq PO DAILYCM [facility] Last Admin: 07/02/17 08:46 Dose: 40 meq Prednisone () 40 mg PO DAILY@0800 [facility] Last Admin: 07/02/17 08:46 Dose: 40 mg Sodium Chloride () 5 - 30 ml IV UD PRN PRN Reason: SALINE FLUSH Last Admin: 07/02/17 05:19 Dose: 20 ml Medical Necessity - Tobacco Use Smoking Status: Current every day smoker Tobacco Use: - Assessment/Plan Active and Suspected Problems (Last Reviewed 06/13/17 @ 14:25 by Binta Isaac) Acute respiratory failure with hypoxia and hypercapnia (Acute) Pneumococcal pneumonia (Acute) Metabolic encephalopathy (Acute) Heart failure with reduced ejection fraction (Acute) 1. Acute on chronic hypoxic and Hypercapnic respiratory failure likely due to acute exacerbation of CHF * Patient says shortness of breath is getting better. On 5 L of oxygen at time of review. Was saturating at 96% * In positive balance by about 406 mls of the last 24 hours. * Titrate oxygen to maintain saturation above 92%. On p.o. Lasix 40 twice daily. 2. Acute CHF exacerbation * EF is 45% per echo. On lasix 40mg bid PO and losartan. * will monitor * 3. CAD s/p stent in circumflex artery * today is POD 4. stable * cardiology on board * on aspirin, carvedilol, plavix, and imdur * 4. COPD: Stable. On prednisone 40 mg daily started 06/30/2017. A complete 5 day course. On breathing treatments 5. HCAP: sputum cultured corynebacterium. On levaquin PO. Pulmo on board 6. DM2: on ISS. 7. CAD: stable. On aspirin and plavix 8. DVT prophylaxis; heaprin Code Visit Inpatient E&M: 16149 Subs Hosp L3
--- NOTE | 2017-07-02 15:47 | PCM.PN.CARD ---
Subjectve: The patient is up in the chair. He states overall he does feel better. He remains on O2 nasal cannula. Objective: Vital Signs Temp Pulse Resp BP Pulse Ox 98.7 F 83 16 109/58 L 96 07/02/17 09:58 07/02/17 14:54 07/02/17 13:01 07/02/17 09:58 07/02/17 09:58 Oxygen Flow Rate (L/min) 4 Oxygen Delivery Method Nasal Cannula Weight: 321 lb 6.943 oz Body Mass Index (BMI) 50.1 Intake and Output for Last 24 Hours 06/30/17 07/01/17 07/02/17 23:59 23:59 23:59 Intake Total 1662 / 1662 1281 / 1281 780 / 780 Output Total 2400 / 2400 875 / 875 175 / 175 Balance -738 / -738 406 / 406 605 / 605 General: Awake, Alert, Oriented x 3, Cooperative, No Acute Distress, Obese Lungs: Diminished Arturo Bases Cardiovascular: Regular Rhythm, Normal S1, Normal S2 Abdomen: Bowel Sounds Present, Soft, Non Tender Extremities: Mild RLE Edema, Mild LLE Edema 07/02/17 05:20: Sodium 148 H, Potassium 3.2 L, Chloride 105, Carbon Dioxide 37.0 H, Anion Gap 6, BUN 34 H, Creatinine 0.64 L, Est GFR (MDRD) Af Amer 163, Est GFR (MDRD) Non-Af 135, BUN/Creatinine Ratio 52.7 H, Glucose 107 H, Calcium 9.0 Rhythm: Sinus rhythm Medical Necessity - Tobacco Use Smoking Status: Current every day smoker Tobacco Use: - Assessment/Plan 1. CAD status post PCI The patient does have a history of underlying CAD. He is undergone previous PCI in the past. He is now status post diagnostic cardiac catheterization. He required PCI to the LCx system. At the present time he continues medical management. 2. Ischemic mediated cardiomyopathy He does have an underlying ischemic mediated cardiomyopathy. His most recent echocardiogram report has been reviewed. At the present time he is continuing medical management as best as tolerated based upon a combination of vital signs, very function, renal function etc. 3. Acute on chronic systolic mediated CHF The patient did present with concerns of acute on chronic systolic mediated CHF. He has been undergoing evaluation and care. He continues medical therapy with oral diuretics. 4. Hyperlipidemia He will continue medical therapy as deemed appropriate and able. 5. Hypertension His blood pressures are being followed. His medications are being adjusted during this time as his blood pressures fluctuate. This note was generated with [employer] dictation software. It may contain incorrect words, spelling, and punctuation that were not noted in checking the note before signing.
[2017-07-02 18:51] LABS: Bedside Glucose 174 mg/dL (70-110)
[2017-07-02 22:35] LABS: Bedside Glucose 168 mg/dL (70-110)
[2017-07-03] VITALS (14 sets, daily range): BP systolic 105–122; BP diastolic 55–67; PULSE 69–90; RESP 12–20; TEMP 36.6–37.2; O2SAT 91–97
[2017-07-03 06:46] LABS: Bedside Glucose 106 mg/dL (70-110)
[2017-07-03] MEDS: Ipratropium/Albuterol Sulfate 3 ML AMPUL.NEB INHALATION ×2 (07:38→12:47)
[2017-07-03] MEDS: predniSONE 20 MG Tablet 40 MG PO (08:24)
[2017-07-03] MEDS: Aspirin 81 MG TAB.CHEW PO (08:24)
--- NOTE | 2017-07-03 09:35 | PCM.PROGNOTE ---
Patient Problems: Active and Suspected Problems (Last Reviewed 06/13/17 @ 14:25 by Binta Isaca) Acute respiratory failure with hypoxia and hypercapnia (Acute) Pneumococcal pneumonia (Acute) Metabolic encephalopathy (Acute) Heart failure with reduced ejection fraction (Acute) Subjective: The patient was seen and examined at the bedside this morning. Events from the last 24 hours have been reviewed. The patient is currently afebrile, hemodynamically stable and maintaining appropriate oxygen saturations on 3 L/min via nasal cannula. The patient has been tolerant of nocturnal Pap therapy. No specific complaints were voiced this morning. Objective: The patient's most recent lab work, culture data and imaging studies have all been personally reviewed. Blood and urine cultures have shown no growth to date. Repeat sputum culture dated June 28 was positive for the presence of a gram-positive milli. Strep and urine Legionella antigens were both negative. Rapid influenza screen was negative. Surface echocardiogram dated June 21, 2017 revealed mild segmental systolic dysfunction with an ejection fraction of 50%. - Physical Exam General: Alert, Cooperative, No apparent distress HEENT: Atraumatic, PERRLA, Normocephalic Oral: Moist Mucosa, No Gingival or Mucosal Lesions/ Ulcerations Neck: Supple, No Nodes, Trachea Midline Lungs: No rhonchi, No wheeze, No rales, Diminished Cardiovascular: Regular rate, Regular Rhythm, Normal S1, Normal S2, No murmurs Abdomen: Bowel Sounds Present, Soft, Non Tender, Obese Extremities: No clubbing, No cyanosis, No edema Skin: - - No significant change from previous. Musculoskeletal: No Tenderness to Palpation of Joints or Extremities, No Muscle Wasting Lymphatic: No Cervical, Supraclavicular, or Inguinal Adenopathy Neurological: Neuro grossly intact Psych/Mental Status: Normal Affect, Appropriate Vital Signs Temp Pulse Resp BP Pulse Ox 98 F 89 20 H 122/65 H 97 07/03/17 03:49 07/03/17 07:38 07/03/17 07:38 07/03/17 03:49 07/03/17 07:38 Oxygen Flow Rate (L/min) 4 Oxygen Delivery Method Nasal Cannula Weight: 324 lb 1.272 oz Body Mass Index (BMI) 50.1 Intake and Output for Last 24 Hours 07/01/17 07/02/17 07/03/17 23:59 23:59 23:59 Intake Total 1281 / 1281 2870 / 2870 Output Total 875 / 875 550 / 550 300 / 300 Balance 406 / 406 2320 / 2320 -300 / -300 Microbiology Past 72 Hours 06/28/17 06:55 Gram Stain - Final Sputum, Induced/Lukens Respiratory Culture - Final Corynebacterium striatum POC Glucose 07/03/17 07/02/17 07/02/17 06:41 22:04 16:57 POC Glucose 106 168 H 174 H 07/02/17 11:54 POC Glucose 207 H Clinical Impression(s) from Imaging Studies Brain CT 06/20/17 13:13 IMPRESSION: Normal unenhanced CT scan of the brain. Electronically Signed: Akhil Izquierdo MD at 15:15 EDT Tel [phone], Service support , Chest X-Ray 06/20/17 13:15 IMPRESSION: The tip of the endotracheal tube is at 3.5 cm proximal to the byron. Cardiomegaly. Findings suggestive of vascular congestion with infiltrate and/or atelectasis is worse on the right side with thickening of the right minor fissure. Electronically Signed: Akhil Izquierdo MD at 14:01 EDT Tel [phone], Service support , Chest X-Ray 06/25/17 03:30 IMPRESSION: 1. Enteric tube is in appropriate position. 2. Improved aeration of the right lung since the previous study. Persistent airspace disease in the left lung may represent pneumonia. Electronically Signed: Laura Duarte MD at 7:56 EDT Tel , Service support , Chest X-Ray 06/25/17 10:33 IMPRESSION: 1. Enteric tube is in appropriate position. 2. Improved aeration of the right lung since the previous study. Electronically Signed: Katya Wright MD at 12:08 EDT , Service support , Chest X-Ray 06/27/17 07:26 IMPRESSION: Increasing right basilar atelectasis and/or infiltrate. The remaining examination is unchanged. Electronically Signed: Akhil Izquierdo MD at 12:57 EDT Tel [phone], Service support , Chest X-Ray 06/28/17 07:02 IMPRESSION: The tip of the endotracheal tube is at 5.3 cm proximal to the byron. Slight increase in the blunting of the left costophrenic angle. Electronically Signed: Akhil Izquierdo MD at 11:01 EDT Tel [phone], Service support , Medical Necessity - Tobacco Use Smoking Status: Current every day smoker Tobacco Use: - Assessment/Plan Active and Suspected Problems (Last Reviewed 06/13/17 @ 14:25 by Binta Isaac) Acute respiratory failure with hypoxia and hypercapnia (Acute) Pneumococcal pneumonia (Acute) Metabolic encephalopathy (Acute) Heart failure with reduced ejection fraction (Acute) RECOMMENDATIONS: 1. Continue BiPAP therapy 15/10 cm of water with naps and nightly. 2. Maintain oxygen saturations 88-90%. 3. Continue antibiotics. 4. Continue Lasix as ordered. 5. Continue prednisone 40 mg daily. 6. Continue aerosol regimen 7. Continue Lovenox for DVT prophylaxis 8. Potassium repletion IMPRESSIONS: 1. Acute on chronic combined respiratory failure Likely secondary to decompensated heart failure in the setting of outpatient noncompliance and possible HCAP. In addition, the patient is supposed to be utilizing BiPAP therapy in his home environment, but is noncompliant. The patient was initially maintained on a Bumex drip and had a significant amount of diuresis. The patient has done well following extubation. He is currently requiring nightly BiPAP utilization with a pressure setting of 15/10 cm of water. Plan to continue supplemental oxygen to maintain saturations 88-90%. A 1.5 L fluid restriction will remain in place. Continue Lasix as ordered. Antibiotics and steroids will be continued. Encourage incentive spirometer use and mobilize patient as tolerated. 2. Acute on chronic systolic congestive heart failure/history of ischemic cardiomyopathy Continue medical management per cardiology recommendations. Diuretics will be continued. 3. Diabetes mellitus Continue sliding-scale insulin coverage and Accu-Cheks. 4. Morbid obesity/history of noncompliance/hypertension/seasonal allergies Complicates care, management, recovery and prognosis. Continue current supportive measures as noted above. Physical therapy to work with patient. This note was generated with [employer] dictation software. It may contain incorrect words, spelling, and punctuation that were not noted in checking the note before signing. Code Visit Inpatient E&M: 39117 Subs Hosp L2
--- NOTE | 2017-07-03 09:38 | PN_ITS ---
Patient Problems: Active and Suspected Problems (Last Reviewed 06/13/17 @ 14:25 by Binta Isaac) Acute respiratory failure with hypoxia and hypercapnia (Acute) Pneumococcal pneumonia (Acute) Metabolic encephalopathy (Acute) Heart failure with reduced ejection fraction (Acute) Subjective: The patient was seen and examined at the bedside this morning. Events from the last 24 hours have been reviewed. The patient is currently afebrile, hemodynamically stable and maintaining appropriate oxygen saturations on 3 L/ min via nasal cannula. The patient has been tolerant of nocturnal Pap therapy. No specific complaints were voiced this morning. Objective: The patient's most recent lab work, culture data and imaging studies have all been personally reviewed. Blood and urine cultures have shown no growth to date. Repeat sputum culture dated June 28 was positive for the presence of a gram-positive milli. Strep and urine Legionella antigens were both negative. Rapid influenza screen was negative. Surface echocardiogram dated June 21, 2017 revealed mild segmental systolic dysfunction with an ejection fraction of 50%. - Physical Exam General: Alert, Cooperative, No apparent distress HEENT: Atraumatic, PERRLA, Normocephalic Oral: Moist Mucosa, No Gingival or Mucosal Lesions/ Ulcerations Neck: Supple, No Nodes, Trachea Midline Lungs: No rhonchi, No wheeze, No rales, Diminished Cardiovascular: Regular rate, Regular Rhythm, Normal S1, Normal S2, No murmurs Abdomen: Bowel Sounds Present, Soft, Non Tender, Obese Extremities: No clubbing, No cyanosis, No edema Skin: - - No significant change from previous. Musculoskeletal: No Tenderness to Palpation of Joints or Extremities, No Muscle Wasting Lymphatic: No Cervical, Supraclavicular, or Inguinal Adenopathy Neurological: Neuro grossly intact Psych/Mental Status: Normal Affect, Appropriate Vital Signs Temp Pulse Resp BP Pulse Ox 98 F 89 20 H 122/65 H 97 07/03/17 03:49 07/03/17 07:38 07/03/17 07:38 07/03/17 03:49 07/03/17 07:38 Oxygen Flow Rate (L/min) 4 Oxygen Delivery Method Nasal Cannula Weight: 324 lb 1.272 oz Body Mass Index (BMI) 50.1 Intake and Output for Last 24 Hours 07/01/17 07/02/17 07/03/17 23:59 23:59 23:59 Intake Total 1281 / 1281 2870 / 2870 Output Total 875 / 875 550 / 550 300 / 300 Balance 406 / 406 2320 / 2320 -300 / -300 Microbiology Past 72 Hours 06/28/17 06:55 Gram Stain - Final Sputum, Induced/Lukens Respiratory Culture - Final Corynebacterium striatum POC Glucose 07/03/17 07/02/17 07/02/17 06:41 22:04 16:57 POC Glucose 106 168 H 174 H 07/02/17 11:54 POC Glucose 207 H Clinical Impression(s) from Imaging Studies Brain CT 06/20/17 13:13 IMPRESSION: Normal unenhanced CT scan of the brain. Electronically Signed: Akhil Izquierdo MD at 15:15 EDT Tel [phone], Service support , Chest X-Ray 06/20/17 13:15 IMPRESSION: The tip of the endotracheal tube is at 3.5 cm proximal to the byron. Cardiomegaly. Findings suggestive of vascular congestion with infiltrate and/or atelectasis is worse on the right side with thickening of the right minor fissure. Electronically Signed: Akhil Izquierdo MD at 14:01 EDT Tel [phone], Service support , Chest X-Ray 06/25/17 03:30 IMPRESSION: 1. Enteric tube is in appropriate position. 2. Improved aeration of the right lung since the previous study. Persistent airspace disease in the left lung may represent pneumonia. Electronically Signed: Laura Duarte MD at 7:56 EDT Tel , Service support , Chest X-Ray 06/25/17 10:33 IMPRESSION: 1. Enteric tube is in appropriate position. 2. Improved aeration of the right lung since the previous study. Electronically Signed: Katya Wright MD at 12:08 EDT , Service support , Chest X-Ray 06/27/17 07:26 IMPRESSION: Increasing right basilar atelectasis and/or infiltrate. The remaining examination is unchanged. Electronically Signed: Akhil Izquierdo MD at 12:57 EDT Tel [phone], Service support , Chest X-Ray 06/28/17 07:02 IMPRESSION: The tip of the endotracheal tube is at 5.3 cm proximal to the byron. Slight increase in the blunting of the left costophrenic angle. Electronically Signed: Akhil Izquierdo MD at 11:01 EDT Tel [phone], Service support , Medical Necessity - Tobacco Use Smoking Status: Current every day smoker Tobacco Use: - Assessment/Plan Active and Suspected Problems (Last Reviewed 06/13/17 @ 14:25 by Binta Isaac) Acute respiratory failure with hypoxia and hypercapnia (Acute) Pneumococcal pneumonia (Acute) Metabolic encephalopathy (Acute) Heart failure with reduced ejection fraction (Acute) RECOMMENDATIONS: 1. Continue BiPAP therapy 15/10 cm of water with naps and nightly. 2. Maintain oxygen saturations 88-90%. 3. Continue antibiotics. 4. Continue Lasix as ordered. 5. Continue prednisone 40 mg daily. 6. Continue aerosol regimen 7. Continue Lovenox for DVT prophylaxis 8. Potassium repletion IMPRESSIONS: 1. Acute on chronic combined respiratory failure Likely secondary to decompensated heart failure in the setting of outpatient noncompliance and possible HCAP. In addition, the patient is supposed to be utilizing BiPAP therapy in his home environment, but is noncompliant. The patient was initially maintained on a Bumex drip and had a significant amount of diuresis. The patient has done well following extubation. He is currently requiring nightly BiPAP utilization with a pressure setting of 15/10 cm of water. Plan to continue supplemental oxygen to maintain saturations 88-90%. A 1.5 L fluid restriction will remain in place. Continue Lasix as ordered. Antibiotics and steroids will be continued. Encourage incentive spirometer use and mobilize patient as tolerated. 2. Acute on chronic systolic congestive heart failure/history of ischemic cardiomyopathy Continue medical management per cardiology recommendations. Diuretics will be continued. 3. Diabetes mellitus Continue sliding-scale insulin coverage and Accu-Cheks. 4. Morbid obesity/history of noncompliance/hypertension/seasonal allergies Complicates care, management, recovery and prognosis. Continue current supportive measures as noted above. Physical therapy to work with patient. This note was generated with [employer] dictation software. It may contain incorrect words, spelling, and punctuation that were not noted in checking the note before signing. Code Visit Inpatient E&M: 82041 Subs Hosp L2
[2017-07-03] MEDS: Carvedilol 3.125 MG TABLET PO ×2 (09:55→21:44)
[2017-07-03] MEDS: Losartan Potassium 25 MG Tablet PO (09:55)
[2017-07-03] MEDS: Furosemide 40 MG Tablet PO (09:55)
[2017-07-03] MEDS: Nystatin Powder 15gm Bottle 1 APPLIC TOPICAL ×2 (09:55→21:47)
[2017-07-03] MEDS: Clopidogrel Bisulfate 75 MG Tablet PO (09:55)
[2017-07-03] MEDS: Enoxaparin 40 MG/0.4 ML Syringe SC (09:55)
--- NOTE | 2017-07-03 10:43 | PCM.PN.HOSP ---
Patient Problems: Active and Suspected Problems (Last Reviewed 06/13/17 @ 14:25 by Binta Isaac) Acute respiratory failure with hypoxia and hypercapnia (Acute) Pneumococcal pneumonia (Acute) Metabolic encephalopathy (Acute) Heart failure with reduced ejection fraction (Acute) Subjective: Patient is a 57-year-old male with an extensive past medical history of heart failure with reduced ejection fraction, ischemic cardiomyopathy, asthma and COPD, history of N STEMI and type 2 diabetes. He was admitted on 06/20/2017 after being found unresponsive at his assisted living facility was noted to be hypoxic with saturation in the 80s on 100% oxygen chest x-ray done in the ED showed evidence of heart failure exacerbation as well as pneumonia. Was admitted and managed for acute hypoxic and hypercapnic respiratory failure due to heart failure exacerbation, pneumonia. He was started on IV vancomycin and Zosyn as well as breathing treatments and Solu-Medrol. He was also started on diuretics. He is status post diagnostic cardiac cath which resulted in stent placement in the circumflex artery. Patient seen and examined. He was lying in bed receiving breathing treatments with 6 L of oxygen. Patient denied that her shortness of breath had worsened overnight. He denied any fever or chills, any cough or chest pain, shortness of breath, any abdominal pain, any diarrhea vomiting. Review of systems otherwise negative. Vitals/I&O's: Vital Signs Temp Pulse Resp BP Pulse Ox 98.7 F 79 18 107/55 L 94 07/03/17 09:47 07/03/17 09:47 07/03/17 09:47 07/03/17 09:47 07/03/17 09:47 Oxygen Flow Rate (L/min) 4 Oxygen Delivery Method Nasal Cannula Weight: 324 lb 1.272 oz Body Mass Index (BMI) 50.1 Intake and Output for Last 24 Hours 07/01/17 07/02/17 07/03/17 23:59 23:59 23:59 Intake Total 1281 / 1281 2870 / 2870 Output Total 875 / 875 550 / 550 300 / 300 Balance 406 / 406 2320 / 2320 -300 / -300 General: Alert, Oriented x3, Cooperative, No apparent distress HEENT: Atraumatic, PERRLA, EOMI, Normocephalic Oral: Moist Mucosa Neck: Supple, No JVD, Negative Carotid Bruits Lungs: Clear to auscultation, Normal air movement, No rhonchi, No wheeze, No rales Cardiovascular: Regular rate, Regular Rhythm, Normal S1, Normal S2, No murmurs Abdomen: Bowel Sounds Present, Soft, Non Tender, Non-Distended, No Hepato-splenomegaly, Obese Extremities: No cyanosis, No edema, Capillary Refill Less than 3 Seconds, - - bandaid over right knee; has a small healing abrasion over right knee; not tender, swollen or erythematous. Musculoskeletal: No Tenderness to Palpation of Joints or Extremities Lymphatic: No Cervical, Supraclavicular, or Inguinal Adenopathy Neurological: Cranial nerves II-XII grossly intact Psych/Mental Status: Normal Affect, Alert and oriented to time, place, person, mood and affect Microbiology Past 72 Hours 06/28/17 06:55 Sputum, Induced/Lukens Gram Stain - Final 06/28/17 06:55 Sputum, Induced/Lukens Respiratory Culture - Final Corynebacterium striatum Laboratory Results 07/02/17 11:54: POC Glucose 207 H 07/02/17 16:57: POC Glucose 174 H 07/02/17 22:04: POC Glucose 168 H 07/03/17 06:41: POC Glucose 106 Current Medications Al Hydroxide/Mg Hydroxide (Mylanta Ii) 30 ml PO Q4H PRN PRN PRN Reason: Gi distress Albuterol Sulfate (Ventolin Aerosols) 2.5 mg INHALATION Q2H PRN PRN PRN Reason: SOB &/OR WHEEZING Albuterol/Ipratropium (Duoneb) 3 ml INHALATION Q6HWA.RT [facility] Last Admin: 07/03/17 07:38 Dose: 3 ml Aspirin (Aspirin, Baby) 81 mg PO DAILY@0800 [facility] Last Admin: 07/03/17 08:24 Dose: 81 mg Carvedilol (Coreg) 3.125 mg PO BID [facility] Last Admin: 07/03/17 09:55 Dose: 3.125 mg Chlorhexidine Gluconate () 1 each TOPICAL DAILY [facility] Last Admin: 07/03/17 09:54 Dose: Not Given Clopidogrel Bisulfate (Plavix) 75 mg PO DAILY [facility] Last Admin: 07/03/17 09:55 Dose: 75 mg Enoxaparin Sodium (Lovenox) 40 mg SC DAILY [facility] Last Admin: 07/03/17 09:55 Dose: 40 mg Furosemide (Lasix) 40 mg PO BID@1000,1800 [facility] Last Admin: 07/03/17 09:55 Dose: 40 mg Sodium Chloride () 250 mls @ 15 mls/hr IV .[id number] PRN PRN Reason: SALINE FLUSH Last Admin: 06/20/17 18:33 Dose: 15 mls/hr Sodium Chloride () 1,000 mls @ 15 mls/hr IV .Q48H JUANY PRN Reason: KVO Last Admin: 07/01/17 16:30 Dose: Not Given Insulin Human Lispro (Humalog Kwikpen (Bkc)) 0 unit SC ACHS [facility] PRN Reason: Protocol Last Admin: 07/03/17 08:22 Dose: Not Given Levofloxacin (Levaquin Tablet) 750 mg PO DAILY@0600 [facility] Stop: 07/05/17 06:01 Last Admin: 07/02/17 08:49 Dose: 750 mg Losartan Potassium (Cozaar) 25 mg PO DAILY [facility] Last Admin: 07/03/17 09:55 Dose: 25 mg Nystatin (Mycostatin Powder) 1 applic TOPICAL BID JUANY PRN Reason: Protocol Last Admin: 07/03/17 09:55 Dose: 1 applicatio Ondansetron HCl (Zofran) 4 mg IV Q8H PRN PRN PRN Reason: Nausea Polyethylene Glycol (Miralax) 17 gm GT BID PRN PRN PRN Reason: Constipation Potassium Chloride (K-Dur) 40 meq PO DAILYCM [facility] Last Admin: 07/03/17 08:23 Dose: 40 meq Prednisone () 40 mg PO DAILY@0800 [facility] Last Admin: 07/03/17 08:24 Dose: 40 mg Sodium Chloride () 5 - 30 ml IV UD PRN PRN Reason: SALINE FLUSH Last Admin: 07/02/17 05:19 Dose: 20 ml Medical Necessity - Tobacco Use Smoking Status: Current every day smoker Tobacco Use: - Assessment/Plan Active and Suspected Problems (Last Reviewed 06/13/17 @ 14:25 by Binta Isaac) Acute respiratory failure with hypoxia and hypercapnia (Acute) Pneumococcal pneumonia (Acute) Metabolic encephalopathy (Acute) Heart failure with reduced ejection fraction (Acute) Patient is a 57-year-old male with an extensive past medical history of heart failure with reduced ejection fraction, ischemic cardiomyopathy, asthma and COPD, history of N STEMI and type 2 diabetes. He was admitted on 06/20/2017 after being found unresponsive at his assisted living facility was noted to be hypoxic with saturation in the 80s on 100% oxygen chest x-ray done in the ED showed evidence of heart failure exacerbation as well as pneumonia. Was admitted and managed for acute hypoxic and hypercapnic respiratory failure due to heart failure exacerbation, pneumonia. He was started on IV vancomycin and Zosyn as well as breathing treatments and Solu-Medrol. He was also started on diuretics. He is status post diagnostic cardiac cath which resulted in stent placement in the circumflex artery. 1. Acute on chronic hypoxic and Hypercapnic respiratory failure likely due to acute exacerbation of CHF and pneumonia has no complaints today was on 6L of oxygen with breathing treatment at time of review; however, he denied being short of breath on PO lasix 40mg bid in positive balance by ~ 2.3L over last 24 hours. However, patient doesnt have a catheter in place, and so output may not be very acurate lungs are clear to auscultation. Will continue monitoring 2. HFrEF EF is 45% per echo. On lasix 40mg bid PO and losartan. will monitor 3. CAD s/p stent in circumflex artery today is POD 4. stable cardiology on board on aspirin, carvedilol, plavix, and imdur 4. COPD: Stable. On prednisone 40 mg daily started 06/30/2017. to complete 5 day course. On breathing treatments 5. HCAP: sputum cultured corynebacterium. On levaquin PO. Pulmo on board 6. DM2: on ISS. 7. CAD: stable. On aspirin and plavix 8. DVT prophylaxis; heparin Disposition: awaiting placement. Possible DC tomorrow if he gets pre-cert approval This note was generated with [employer] software. It may contain incorrect words, spelling, and punctuation that were not noted in checking the note before signing. Code Visit Inpatient E&M: 77222 [facility] Hosp L3
--- NOTE | 2017-07-03 10:52 | PN_ITS ---
Patient Problems: Active and Suspected Problems (Last Reviewed 06/13/17 @ 14:25 by Binta Isaac) Acute respiratory failure with hypoxia and hypercapnia (Acute) Pneumococcal pneumonia (Acute) Metabolic encephalopathy (Acute) Heart failure with reduced ejection fraction (Acute) Subjective: Patient is a 57-year-old male with an extensive past medical history of heart failure with reduced ejection fraction, ischemic cardiomyopathy, asthma and COPD , history of N STEMI and type 2 diabetes. He was admitted on 06/20/2017 after being found unresponsive at his assisted living facility was noted to be hypoxic with saturation in the 80s on 100% oxygen chest x-ray done in the ED showed evidence of heart failure exacerbation as well as pneumonia. Was admitted and managed for acute hypoxic and hypercapnic respiratory failure due to heart failure exacerbation, pneumonia. He was started on IV vancomycin and Zosyn as well as breathing treatments and Solu-Medrol. He was also started on diuretics. He is status post diagnostic cardiac cath which resulted in stent placement in the circumflex artery. Patient seen and examined. He was lying in bed receiving breathing treatments with 6 L of oxygen. Patient denied that her shortness of breath had worsened overnight. He denied any fever or chills, any cough or chest pain, shortness of breath, any abdominal pain, any diarrhea vomiting. Review of systems otherwise negative. Vitals/I&O's: Vital Signs Temp Pulse Resp BP Pulse Ox 98.7 F 79 18 107/55 L 94 07/03/17 09:47 07/03/17 09:47 07/03/17 09:47 07/03/17 09:47 07/03/17 09:47 Oxygen Flow Rate (L/min) 4 Oxygen Delivery Method Nasal Cannula Weight: 324 lb 1.272 oz Body Mass Index (BMI) 50.1 Intake and Output for Last 24 Hours 07/01/17 07/02/17 07/03/17 23:59 23:59 23:59 Intake Total 1281 / 1281 2870 / 2870 Output Total 875 / 875 550 / 550 300 / 300 Balance 406 / 406 2320 / 2320 -300 / -300 General: Alert, Oriented x3, Cooperative, No apparent distress HEENT: Atraumatic, PERRLA, EOMI, Normocephalic Oral: Moist Mucosa Neck: Supple, No JVD, Negative Carotid Bruits Lungs: Clear to auscultation, Normal air movement, No rhonchi, No wheeze, No rales Cardiovascular: Regular rate, Regular Rhythm, Normal S1, Normal S2, No murmurs Abdomen: Bowel Sounds Present, Soft, Non Tender, Non-Distended, No Hepato- splenomegaly, Obese Extremities: No cyanosis, No edema, Capillary Refill Less than 3 Seconds, - - bandaid over right knee; has a small healing abrasion over right knee; not tender, swollen or erythematous. Musculoskeletal: No Tenderness to Palpation of Joints or Extremities Lymphatic: No Cervical, Supraclavicular, or Inguinal Adenopathy Neurological: Cranial nerves II-XII grossly intact Psych/Mental Status: Normal Affect, Alert and oriented to time, place, person, mood and affect Microbiology Past 72 Hours 06/28/17 06:55 Sputum, Induced/Lukens Gram Stain - Final 06/28/17 06:55 Sputum, Induced/Lukens Respiratory Culture - Final Corynebacterium striatum Laboratory Results 07/02/17 11:54: POC Glucose 207 H 07/02/17 16:57: POC Glucose 174 H 07/02/17 22:04: POC Glucose 168 H 07/03/17 06:41: POC Glucose 106 Current Medications Al Hydroxide/Mg Hydroxide (Mylanta Ii) 30 ml PO Q4H PRN PRN PRN Reason: Gi distress Albuterol Sulfate (Ventolin Aerosols) 2.5 mg INHALATION Q2H PRN PRN PRN Reason: SOB &/OR WHEEZING Albuterol/Ipratropium (Duoneb) 3 ml INHALATION Q6HWA.RT [facility] Last Admin: 07/03/17 07:38 Dose: 3 ml Aspirin (Aspirin, Baby) 81 mg PO DAILY@0800 [facility] Last Admin: 07/03/17 08:24 Dose: 81 mg Carvedilol (Coreg) 3.125 mg PO BID [facility] Last Admin: 07/03/17 09:55 Dose: 3.125 mg Chlorhexidine Gluconate () 1 each TOPICAL DAILY [facility] Last Admin: 07/03/17 09:54 Dose: Not Given Clopidogrel Bisulfate (Plavix) 75 mg PO DAILY [facility] Last Admin: 07/03/17 09:55 Dose: 75 mg Enoxaparin Sodium (Lovenox) 40 mg SC DAILY [facility] Last Admin: 07/03/17 09:55 Dose: 40 mg Furosemide (Lasix) 40 mg PO BID@1000,1800 [facility] Last Admin: 07/03/17 09:55 Dose: 40 mg Sodium Chloride () 250 mls @ 15 mls/hr IV .[id number] PRN PRN Reason: SALINE FLUSH Last Admin: 06/20/17 18:33 Dose: 15 mls/hr Sodium Chloride () 1,000 mls @ 15 mls/hr IV .Q48H JUANY PRN Reason: KVO Last Admin: 07/01/17 16:30 Dose: Not Given Insulin Human Lispro (Humalog Kwikpen (Bkc)) 0 unit SC ACHS [facility] PRN Reason: Protocol Last Admin: 07/03/17 08:22 Dose: Not Given Levofloxacin (Levaquin Tablet) 750 mg PO DAILY@0600 [facility] Stop: 07/05/17 06:01 Last Admin: 07/02/17 08:49 Dose: 750 mg Losartan Potassium (Cozaar) 25 mg PO DAILY [facility] Last Admin: 07/03/17 09:55 Dose: 25 mg Nystatin (Mycostatin Powder) 1 applic TOPICAL BID JUANY PRN Reason: Protocol Last Admin: 07/03/17 09:55 Dose: 1 applicatio Ondansetron HCl (Zofran) 4 mg IV Q8H PRN PRN PRN Reason: Nausea Polyethylene Glycol (Miralax) 17 gm GT BID PRN PRN PRN Reason: Constipation Potassium Chloride (K-Dur) 40 meq PO DAILYCM [facility] Last Admin: 07/03/17 08:23 Dose: 40 meq Prednisone () 40 mg PO DAILY@0800 [facility] Last Admin: 07/03/17 08:24 Dose: 40 mg Sodium Chloride () 5 - 30 ml IV UD PRN PRN Reason: SALINE FLUSH Last Admin: 07/02/17 05:19 Dose: 20 ml Medical Necessity - Tobacco Use Smoking Status: Current every day smoker Tobacco Use: - Assessment/Plan Active and Suspected Problems (Last Reviewed 06/13/17 @ 14:25 by Binta Isaac) Acute respiratory failure with hypoxia and hypercapnia (Acute) Pneumococcal pneumonia (Acute) Metabolic encephalopathy (Acute) Heart failure with reduced ejection fraction (Acute) Patient is a 57-year-old male with an extensive past medical history of heart failure with reduced ejection fraction, ischemic cardiomyopathy, asthma and COPD , history of N STEMI and type 2 diabetes. He was admitted on 06/20/2017 after being found unresponsive at his assisted living facility was noted to be hypoxic with saturation in the 80s on 100% oxygen chest x-ray done in the ED showed evidence of heart failure exacerbation as well as pneumonia. Was admitted and managed for acute hypoxic and hypercapnic respiratory failure due to heart failure exacerbation, pneumonia. He was started on IV vancomycin and Zosyn as well as breathing treatments and Solu-Medrol. He was also started on diuretics. He is status post diagnostic cardiac cath which resulted in stent placement in the circumflex artery. 1. Acute on chronic hypoxic and Hypercapnic respiratory failure likely due to acute exacerbation of CHF and pneumonia * has no complaints today * was on 6L of oxygen with breathing treatment at time of review; however, he denied being short of breath * on PO lasix 40mg bid * in positive balance by ~ 2.3L over last 24 hours. However, patient doesnt have a catheter in place, and so output may not be very acurate * lungs are clear to auscultation. Will continue monitoring * 2. HFrEF * EF is 45% per echo. On lasix 40mg bid PO and losartan. * will monitor * 3. CAD s/p stent in circumflex artery * today is POD 4. stable * cardiology on board * on aspirin, carvedilol, plavix, and imdur * 4. COPD: Stable. On prednisone 40 mg daily started 06/30/2017. to complete 5 day course. On breathing treatments 5. HCAP: sputum cultured corynebacterium. On levaquin PO. Pulmo on board 6. DM2: on ISS. 7. CAD: stable. On aspirin and plavix 8. DVT prophylaxis; heparin Disposition: awaiting placement. Possible DC tomorrow if he gets pre-cert approval This note was generated with [employer] dictation software. It may contain incorrect words, spelling, and punctuation that were not noted in checking the note before signing. Code Visit Inpatient E&M: 52614 Subs Hosp L3
[2017-07-03] MEDS: Insulin Lispro 100 UNIT/ML INSULN.PEN SC ×3 (11:44→21:44)
[2017-07-03 12:01] LABS: Bedside Glucose 151 mg/dL (70-110)
[2017-07-03 12:16] LABS: Anion Gap 3 (5-15); BUN 23 mg/dL (7-18); BUN/Creat Ratio 31.9 RATIO (10-20); Chloride 105 mmol/L (98-107); Creatinine, Serum 0.72 mg/dL (0.70-1.30); EST Glomerular Filtration Rate 118 mL/min (>60); Est Glom Filt Rate - Afr Amer 143 mL/min (>60); Estimated Creatinine Clearance 121.25 ml/min; Glucose 148 mg/dL (74-106); Potassium 4.2 mmol/L (3.5-5.1); Sodium Level 142 mmol/L (136-145)
--- NOTE | 2017-07-03 15:42 | PCM.PN.CARD ---
Subjectve: The patient remains with O2 nasal cannula. He denies any worsening shortness of breath or dyspnea. He believes his lower extremity edema is improving. Objective: Vital Signs Temp Pulse Resp BP Pulse Ox 98.7 F 85 20 H 107/55 L 94 07/03/17 09:47 07/03/17 12:47 07/03/17 12:47 07/03/17 09:47 07/03/17 09:47 Oxygen Flow Rate (L/min) 4 Oxygen Delivery Method Nasal Cannula Weight: 324 lb 1.272 oz Body Mass Index (BMI) 50.1 Intake and Output for Last 24 Hours 07/01/17 07/02/17 07/03/17 23:59 23:59 23:59 Intake Total 1281 / 1281 2870 / 2870 240 / 240 Output Total 875 / 875 550 / 550 450 / 450 Balance 406 / 406 2320 / 2320 -210 / -210 General: Awake, Alert, Oriented x 3, Cooperative, Obese Lungs: Expiratory Wheezes-Arturo - Scattered Cardiovascular: Regular Rhythm, Normal S1, Normal S2 Abdomen: Bowel Sounds Present, Soft, Non Tender Extremities: Mild RLE Edema, Mild LLE Edema 07/03/17 11:30: Sodium 142, Potassium 4.2, Chloride 105, Carbon Dioxide 34.0 H, Anion Gap 3 L, BUN 23 H, Creatinine 0.72, Est GFR (MDRD) Af Amer 143, Est GFR (MDRD) Non-Af 118, BUN/Creatinine Ratio 31.9 H, Glucose 148 H, Calcium 9.0 Rhythm: Sinus rhythm Medical Necessity - Tobacco Use Smoking Status: Current every day smoker Tobacco Use: - Assessment/Plan 1. CAD status post PCI The patient does have a history of underlying CAD. He is undergone previous PCI in the past. He is now status post diagnostic cardiac catheterization. He required PCI to the LCx system. At the present time he continues medical management. 2. Ischemic mediated cardiomyopathy He does have an underlying ischemic mediated cardiomyopathy. His most recent echocardiogram report has been reviewed. At the present time he is continuing medical management as best as tolerated based upon a combination of vital signs, very function, renal function etc. 3. Acute on chronic systolic mediated CHF The patient did present with concerns of acute on chronic systolic mediated CHF. He has been undergoing evaluation and care. He continues medical therapy with oral diuretics. Diuretics may need to be adjusted to continue his diuresis and avoid recurrence of CHF/pulmonary edema and to assist him in improving his lower extremity edema. 4. Hyperlipidemia He will continue medical therapy as deemed appropriate and able. 5. Hypertension His blood pressures are being followed. His medications are being adjusted during this time as his blood pressures fluctuate. This note was generated with [employer] dictation software. It may contain incorrect words, spelling, and punctuation that were not noted in checking the note before signing.
[2017-07-03 16:36] LABS: Bedside Glucose 189 mg/dL (70-110)
[2017-07-03] MEDS: Furosemide 80 MG Tablet PO (18:42)
[2017-07-04] VITALS (9 sets, daily range): BP systolic 99–115; BP diastolic 55–68; PULSE 65–78; RESP 12–18; TEMP 36.8–37; O2SAT 94–97
[2017-07-04 00:35] LABS: Bedside Glucose 165 mg/dL (70-110)
[2017-07-04 05:05] LABS: Absolute Lymphocyte Count 2.07 X10^3/ul (0.83-4.51); Absolute Neutrophil Count 4.9 X10^3/uL (2.0-7.7); Basophil# 0.02 X10^3/uL; Basophil% 0.3 % (0-1); Eosinophil# 0.33 X10^3/uL; Eosinophils% 4.2 % (0-5); Hematocrit 40.4 % (40-54); Hemoglobin 12.2 g/dl (13.0-16.5); Lymphocyte # 2.07 X10^3/ul (4.0); Lymphocyte % 26.5 % (19-41); Mean Corp Hgb Conc 30.2 g/gl (32-36); Mean Corpuscular Hgb 26.2 pg (27.0-32.0); Mean Corpuscular Volume 86.7 fL (80-94); Mean Platelet Vol. 11.3 fl (6.2-12.0); Monocyte# 0.51 X10^3/uL; Monocyte% 6.5 % (0-10); Neutrophil # 4.86 X10^3/uL (2.7-7.7); Neutrophil % 62.2 % (47-70); Platelet Count 188 K/mm3 (150-450); RBC Distribution Width CV 14.9 % (11.6-14.6); RBC Distribution Width SD 47.6 fl (35.1-43.9); Red Blood Count 4.66 M/mm3 (4.6-6.2); White Blood Count 7.8 K/mm3 (4.4-11.0)
[2017-07-04 05:06] LABS: POSITIVE COUNT NO; POSITIVE DIFFERENTIAL NO; POSITIVE MORPHOLOGY NO
[2017-07-04 05:15] LABS: Anion Gap 5 (5-15); BUN 20 mg/dL (7-18); BUN/Creat Ratio 36.6 RATIO (10-20); Calcium,Total 8.8 mg/dL (8.5-10.1); Chloride 103 mmol/L (98-107); Creatinine, Serum 0.55 mg/dL (0.70-1.30); EST Glomerular Filtration Rate 163 mL/min (>60); Est Glom Filt Rate - Afr Amer 197 mL/min (>60); Estimated Creatinine Clearance 158.73 ml/min; Glucose 96 mg/dL (74-106); Potassium 3.7 mmol/L (3.5-5.1); Sodium Level 142 mmol/L (136-145)
[2017-07-04] MEDS: levoFLOXacin 750 MG Tablet PO (06:46)
[2017-07-04 06:50] LABS: Bedside Glucose 116 mg/dL (70-110)
[2017-07-04] MEDS: Ipratropium/Albuterol Sulfate 3 ML AMPUL.NEB INHALATION ×2 (07:33→13:26)
--- NOTE | 2017-07-04 08:37 | PCM.PROGNOTE ---
Patient Problems: Active and Suspected Problems (Last Reviewed 06/13/17 @ 14:25 by Binta Isaac) Acute respiratory failure with hypoxia and hypercapnia (Acute) Pneumococcal pneumonia (Acute) Metabolic encephalopathy (Acute) Heart failure with reduced ejection fraction (Acute) Subjective: Patient did well overnight. Patient continues to use nasal cannula oxygen during the day and BiPAP overnight. No hemodynamic instability has been reported. Patient has no complaints this morning and feels subjectively unchanged compared to previous. - Physical Exam General: Alert, Oriented x3, Cooperative, No apparent distress, - - Morbidly obese. Speaking in full sentences. HEENT: Atraumatic, PERRLA, EOMI, Normocephalic, - - Right scleral injection without icterus. Oral: Moist Mucosa, No Gingival or Mucosal Lesions/ Ulcerations Neck: Supple, No JVD, No Nodes, Trachea Midline, - - Significant redundant tissue noted. Lungs: No rhonchi, No wheeze, No rales, Diminished, - - Symmetric expansion. No dullness to percussion. Cardiovascular: Regular rate, Regular Rhythm, Normal S1, Normal S2, No murmurs, No rub noted, No Gallop Abdomen: Bowel Sounds Present, Soft, Non Tender, Non-Distended, Obese Extremities: No clubbing, No cyanosis, No edema, Capillary Refill Less than 3 Seconds Skin: No rashes, No breakdown, - - Venous stasis changes Musculoskeletal: No Tenderness to Palpation of Joints or Extremities, No Muscle Wasting Lymphatic: No Cervical, Supraclavicular, or Inguinal Adenopathy Neurological: Cranial nerves II-XII grossly intact, Neuro grossly intact Psych/Mental Status: Alert and oriented to time, place, person, mood and affect Vital Signs Temp Pulse Resp BP Pulse Ox 36.8 C 70 16 115/68 94 07/04/17 04:36 07/04/17 07:33 07/04/17 07:33 07/04/17 04:36 07/04/17 07:33 Oxygen Flow Rate (L/min) 3 Oxygen Delivery Method Nasal Cannula Weight: 145 kg Body Mass Index (BMI) 50.1 Intake and Output for Last 24 Hours 07/02/17 07/03/17 07/04/17 23:59 23:59 23:59 Intake Total 2870 / 2870 500 / 500 Output Total 550 / 550 1625 / 1625 300 / 300 Balance 2320 / 2320 -1125 / -1125 -300 / -300 Microbiology Past 72 Hours 06/28/17 06:55 Gram Stain - Final Sputum, Induced/Lukens Respiratory Culture - Final Corynebacterium striatum Laboratory Tests Past 24 Hrs 07/03/17 07/04/17 07/04/17 11:30 04:20 04:20 WBC 7.8 RBC 4.66 Hgb 12.2 L Hct 40.4 MCV 86.7 MCH 26.2 L MCHC 30.2 L RDW 14.9 H RDW Differential 47.6 H Plt Count 188 MPV 11.3 Immature Gran % (Auto) 0.300 Neut % (Auto) 62.2 Lymph % (Auto) 26.5 [place] % (Auto) 6.5 Eos % (Auto) 4.2 Baso % (Auto) 0.3 Absolute Neuts (auto) 4.9 Absolute Lymphs (auto) 2.07 Total Counted Not Reportable Sodium 142 142 Potassium 4.2 3.7 Chloride 105 103 Carbon Dioxide 34.0 H 34.0 H Anion Gap 3 L 5 BUN 23 H 20 H Creatinine 0.72 0.55 L Estim Creat Clear Calc 121.25 158.73 Est GFR (MDRD) Af Amer 143 197 Est GFR (MDRD) Non-Af 118 163 BUN/Creatinine Ratio 31.9 H 36.6 H Glucose 148 H 96 Calcium 9.0 8.8 POC Glucose 07/04/17 07/03/17 07/03/17 06:44 21:43 16:26 POC Glucose 116 H 165 H 189 H 07/03/17 11:41 POC Glucose 151 H Medical Necessity - Tobacco Use Smoking Status: Current every day smoker Tobacco Use: - Assessment/Plan Active and Suspected Problems (Last Reviewed 06/13/17 @ 14:25 by Binta Isaac) Acute respiratory failure with hypoxia and hypercapnia (Acute) Pneumococcal pneumonia (Acute) Metabolic encephalopathy (Acute) Heart failure with reduced ejection fraction (Acute) RECOMMENDATIONS: 1. Continue BiPAP therapy 15/10 cm of water with naps and nightly. 2. Maintain oxygen saturations 88-90%. 3. Continue antibiotics to complete a 10 day course 4. Continue Lasix as ordered. 5. Wean prednisone over the next 12-14 days 6. Continue aerosol regimen 7. Discharge planning, follow-up with nurse practitioner 2 weeks after discharge from rehab IMPRESSIONS: 1. Acute on chronic combined respiratory failure Likely secondary to decompensated heart failure in the setting of outpatient noncompliance and possible HCAP. In addition, the patient is supposed to be utilizing BiPAP therapy in his home environment, but is noncompliant. Patient appears to be much improved compared to my previous evaluation. Patient is tolerating BiPAP at night. Stressed to the patient the importance of continued compliance to avoid further complications. Patient has received significant diuresis over the course of the hospitalization. Chemistries appear to be appropriate this morning. Likely okay to wean steroids over the next 12-14 days. 2. Acute on chronic systolic congestive heart failure/history of ischemic cardiomyopathy Continue medical management per cardiology recommendations. Diuretics will be continued. 3. Diabetes mellitus Continue sliding-scale insulin coverage and Accu-Cheks. Blood sugars have been well controlled on current regimen. 4. Morbid obesity/history of noncompliance/hypertension/seasonal allergies Complicates care, management, recovery and prognosis. Continue current supportive measures as noted above. Physical therapy to work with patient. This note was generated with [employer] dictation software. It may contain incorrect words, spelling, and punctuation that were not noted in checking the note before signing. Code Visit Inpatient E&M: 78588 Subs Hosp L2
[2017-07-04] MEDS: Aspirin 81 MG TAB.CHEW PO (09:31)
[2017-07-04] MEDS: predniSONE 20 MG Tablet 40 MG PO (09:31)
[2017-07-04] MEDS: Nystatin Powder 15gm Bottle 1 APPLIC TOPICAL (09:32)
[2017-07-04] MEDS: Clopidogrel Bisulfate 75 MG Tablet PO (09:32)
[2017-07-04] MEDS: Losartan Potassium 25 MG Tablet PO (09:32)
[2017-07-04] MEDS: Carvedilol 3.125 MG TABLET PO (09:32)
[2017-07-04] MEDS: Enoxaparin 40 MG/0.4 ML Syringe SC (09:33)
[2017-07-04] MEDS: Furosemide 80 MG Tablet PO (10:50)
--- NOTE | 2017-07-04 11:55 | PCM.TXEXTCAR ---
- Diet 06/30/17 09:22 Diet: Cardiac: Calorie-Controlled Is pt able to select menu?: Yes Diet Comments: low sodium How many daily calories?: 1999 calorie - Routine Orders/Code Status O2 Liters per Minute: 3 O2 Frequency: Continuous Keep PO Greater than or Equal to (%): 90 - Wound(s) Left glez Wound Type: scabs Right groin fold Wound Type: excoriation R groin Wound Type: Puncture - Suggestions for Active Care Change Position every (hours): 3 Hours to sit in a chair: 2 Times a day to sit in chair: 3 - Therapies Weight Bearing: Weight bearing as tolerated Physical Therapy: Eval and Treat Occupational Therapy: Eval and Treat - Allergies/Procedures Done in Hospital Allergies/Adverse Reactions: Allergies adhesive tape Adverse Reaction (Verified 06/13/17 14:25) Rash - Type of Care/Length of Stay Estimated LOS: Convalescent Care Less Than 30 days Type of Care Needed: Skilled Rehab Potential: Fair Prognosis: Fair - Additional Orders/Day of Discharge H&P will serve as current which was dated: 06/20/17 Day of Discharge: 07/04/17 - Dietary and Speech Recommendations Dietitian Recommendations/Changes: Rec addition of fluid restriction as indicated - Follow Up Care Primary Care Physician: Tio Parker MD [Primary Care Provider] - Please follow up with your Primary Care Physician in: 1 week. Please Follow Up With: Jeffrey Campos MD When: 2 weeks. Please Follow Up With: Nitesh Mackenzie MD When: 2-3 weeks.
[2017-07-04] MEDS: Insulin Lispro 100 UNIT/ML INSULN.PEN SC (12:16)
[2017-07-04 12:25] LABS: Bedside Glucose 158 mg/dL (70-110)
--- NOTE | 2017-07-04 15:36 | PCM.DC.SUM ---
Discharge Date and Diagnosis - Problem List Patient Problems: Active and Suspected Problems (Last Reviewed 06/13/17 @ 14:25 by Binta Isaac) Acute respiratory failure with hypoxia and hypercapnia (Acute) Pneumococcal pneumonia (Acute) Metabolic encephalopathy (Acute) Heart failure with reduced ejection fraction (Acute) Date of Admission: 06/20/17 Date of Discharge: 07/04/17 - Primary Discharge Diagnosis Active and Suspected Problems (Last Reviewed 06/13/17 @ 14:25 by Binta Isaac) #1 acute on chronic hypoxic and hypercapnic respiratory failure. #2 healthcare associated pneumonia. #3 acute on chronic systolic CHF. #4 coronary artery disease status post stent and left circumflex. #5 metabolic encephalopathy. - Secondary Discharge Diagnosis Chronic Problems (Last Reviewed 06/13/17 @ 14:25 by Binta Isaac) Ischemic cardiomyopathy (Chronic) Chronic systolic congestive heart failure (Chronic) Presence of stent in coronary artery (Chronic ~02/25/16) PCI/stent LAD w/ 4.0 x 32 mm Promus 2012; PCI/GISSEL to Prox LAD w/ 4.0 x 20 mm Promus 02/25/16 for instent restenosis Atherosclerotic heart disease of [place] coronary artery without angina pectoris (Chronic) PCI/stent LAD w/ 4.0 x 32 mm Promus 2012; PCI/GISSEL to Prox LAD w/ 4.0 x 20 mm Promus 02/25/16 for instent restenosis Asthma-COPD overlap syndrome (Chronic) FEV1 46% (01/11/2017) DM2 (diabetes mellitus, type 2) (Chronic) NSTEMI (non-ST elevated myocardial infarction) (Chronic) Venous stasis of lower extremity (Chronic) Ischemic cardiomyopathy (Chronic) EF of 35% on Cath in February of 2014 Hospital Course and Treatment Imaging Results: Clinical Impression(s) from Imaging Studies Brain CT 06/20/17 13:13 IMPRESSION: Normal unenhanced CT scan of the brain. Electronically Signed: Akihl Izquierdo MD at 15:15 EDT Tel [phone], Service support , Chest X-Ray 06/20/17 13:15 IMPRESSION: The tip of the endotracheal tube is at 3.5 cm proximal to the byron. Cardiomegaly. Findings suggestive of vascular congestion with infiltrate and/or atelectasis is worse on the right side with thickening of the right minor fissure. Electronically Signed: Akhil Izquierdo MD at 14:01 EDT Tel [phone], Service support , Chest X-Ray 06/25/17 03:30 IMPRESSION: 1. Enteric tube is in appropriate position. 2. Improved aeration of the right lung since the previous study. Persistent airspace disease in the left lung may represent pneumonia. Electronically Signed: Laura Duarte MD at 7:56 EDT Tel , Service support , Chest X-Ray 06/25/17 10:33 IMPRESSION: 1. Enteric tube is in appropriate position. 2. Improved aeration of the right lung since the previous study. Electronically Signed: Katya Wright MD at 12:08 EDT , Service support , Chest X-Ray 06/27/17 07:26 IMPRESSION: Increasing right basilar atelectasis and/or infiltrate. The remaining examination is unchanged. Electronically Signed: Akhil Izquierdo MD at 12:57 EDT Tel [phone], Service support , Chest X-Ray 06/28/17 07:02 IMPRESSION: The tip of the endotracheal tube is at 5.3 cm proximal to the byron. Slight increase in the blunting of the left costophrenic angle. Electronically Signed: Akhil Izquierdo MD at 11:01 EDT Tel [phone], Service support , Dr. Denny/Dr. Campos, critical care. Dr. Li,/Dr. Mackenzie, cardiology. Operations: None Procedures: 2-D Echocardiogram, Cardiac catheterization, EKG, Intubation Summary of Care Provided: Patient seen and examined on the day of discharge and appeared to be stable to be discharged to group home facility. His breathing remains stable and his pulse ox is maintained on 3 L of oxygen. All over, is feeling better. Denied chest pain or palpitations. His vital signs are stable, pulse ox is 96% on 3 L. - Physical Exam General: Alert, Oriented x3, Cooperative, No apparent distress. HEENT: Atraumatic, PERRLA, EOMI. Neck: Supple, No JVD, Negative Carotid Bruits, Trachea Midline, Thyroid Normal. Lungs: Decreased breath sounds at the bases, more on the right base, scattered rhonchi, No wheeze, No rales. Cardiovascular: Regular rate, Regular Rhythm, Normal S1, Normal S2, PMI Normal. Abdomen: Bowel Sounds Present, Soft, Non Tender, Non-Distended, No Hepato-splenomegaly. Extremities: No clubbing, No cyanosis, No edema Skin: No rashes, No breakdown Neurological: Neuro grossly intact Vital Signs are stable. Hospital course: The patient is a 57 year old M presented to the emergency room because he was found unresponsive, found to have acute on chronic hypoxic and hypercapnic respiratory failure that required endotracheal intubation and mechanical ventilation which is precipitated by healthcare associated pneumonia and acute on chronic systolic CHF. The patient has long protracted course during this hospital stay with multiple procedures. #1 acute on chronic hypoxic and hypercapnic respiratory failure: Secondary to pneumonia and acute and chronic systolic CHF. Initially, patient was admitted to intensive care unit, intubated and started on mechanical ventilation. Today, patient was able to be extubated, remains on BiPAP as well as high flow oxygen. He was treated with IV antibiotics and IV Lasix for diuresis. He was transferred to PCU and he remains on 3 L of oxygen as well as BiPAP during sleep and during naps. At home, patient has been on oxygen and he mentioned he has been more than 2 L of oxygen at home. He has been stable on 3 L of oxygen for the last 3 days. Patient discharged to group home facility in a stable medical condition, discharged on Levaquin 750 mg p.o. daily, tapering course of prednisone and bronchodilators. #2 healthcare associated pneumonia, right upper lobe: Treated with antibiotics. Sputum culture revealed corynebacterium striatum. Blood culture showed no growth in 5 days. Pneumococcal and Legionella antigen were negative. Nasal swab for influenza a and B were negative. Discharged on Levaquin 750 mg p.o. daily for 7 days #3 acute on chronic systolic CHF: Treated with IV Lasix for diuresis. Dose of losartan and Coreg adjusted by cardiology. With diuresis, patient's volume status stabilized as well as respiratory status. 2D echocardiogram revealed ejection fraction of 50%. Patient underwent cardiac catheterization that revealed occluded RCA and retrograde dissection of the dominant left circumflex, underwent PTCA and drug-eluting stents to mid left circumflex. Patient discharged on aspirin, statins, Plavix, Coreg, losartan and Lasix 80 mg p.o. twice daily. #4 CAD status post stent to mid left circumflex. Status post PTCA and drug-eluting stent to mid left circumflex. As mentioned above, patient was discharged on aspirin, statins, Plavix, beta blockers and losartan. #5 metabolic encephalopathy: Secondary to acute on chronic hypoxic and hypercapnic respiratory failure as well as pneumonia. CT scan brain done on admission and revealed normal unenhanced CT scan of the brain. #6 type 2 diabetes mellitus: Blood sugar was controlled during this hospital stay. Discharged on the same dosage of metformin. #7 COPD: Treated with bronchodilators and steroids. Patient discharged on tapering course of prednisone. #8 ischemic cardiomyopathy: 2D echocardiogram revealed ejection fraction of 50% and on the cardiac catheterization, ejection fraction was 45%. He underwent stenting of the mid left circumflex as mentioned above. He was discharged in the standard treatment for CAD and CHF. Patient discharged to group home facility in a stable medical condition, discharged on aspirin, Plavix, statins, beta blockers and losartan, discharged on Lasix 80 mg p.o. twice daily for acute and chronic systolic CHF, discharged on Levaquin for 7 days, discharged on tapering course of prednisone, discharged on oxygen at 3 L, Zaroxolyn discontinued plan is to follow-up with PCP in 1 week, follow-up with pulmonology in 2 weeks and follow-up with cardiology in 2-3 weeks. This note was generated with [employer] dictation software. It may contain incorrect words, spelling, and punctuation that were not noted in checking the note before signing. Home Medications: Medications to take at Discharge Mometasone/Formoterol [Dulera 200 Mcg/5 Mcg Inhaler] 1 puff IH BID 07/11/14 Aspirin E.C. [Ecotrin] 81 mg PO DAILY@0800 12/27/15 Atorvastatin Calcium [Lipitor] 40 mg PO QHS 12/27/15 Mag Hydrox/Al Hydrox/Simeth [Antacid Liquid] 30 ml PO Q4H PRN PRN 12/27/15 Magnesium Hydroxide [Milk Of Magnesia] 30 ml PO DAILY PRN PRN 12/27/15 Polyvinyl Alcohol/Povidone/Pf [Refresh Classic Eye Drops] 1 ea OP PRN PRN 12/27/15 Acetaminophen [Mapap] 1,000 mg PO TID PRN PRN 01/17/17 Albuterol Aerosols [Ventolin Aerosols] 2.5 mg INHALATION TID 01/17/17 Meloxicam [Mobic] 15 mg PO DAILY 01/17/17 Polyethylene Glycol 3350 [Miralax] 17 gm PO DAILY 01/17/17 losartan 50 mg tablet 25 mg PO DAILY tab 06/13/17 potassium chloride ER 20 mEq tablet,extended release 20 meq PO DAILY 06/13/17 Clopidogrel Bisulfate [Plavix] 75 mg PO DAILY 06/20/17 Gabapentin [Neurontin] 400 mg PO TID 06/20/17 Metformin HCl [Glucophage] 1,000 mg PO BIDCM 06/20/17 Montelukast [Singulair] 10 mg PO DAILY 06/20/17 Carvedilol [Coreg (Beta Kareem)] 3.125 mg PO BID #90 tab 07/04/17 Furosemide [Lasix] 80 mg PO BID@1000,1800 #90 tab 07/04/17 Ipratropium/Albuterol Sulfate [Duoneb] 3 ml INHALATION Q6HWA.RT #1 ampul.neb 07/04/17 Prednisone 10 mg PO DAILY #30 tab 07/04/17 levoFLOXacin tablet [Levaquin tablet] 750 mg PO DAILY@0600 #7 tab 07/04/17 Following Prescrptions Were Given to Patient: Ipratropium/Albuterol Sulfate [Duoneb] 3 ml INHALATION Q6HWA.RT #1 ampul.neb Furosemide [Lasix] 80 mg PO BID@1000,1800 #90 tab levoFLOXacin tablet [Levaquin tablet] 750 mg PO DAILY@0600 #7 tab Prednisone 10 mg PO DAILY #30 tab Carvedilol [Coreg (Beta Kareem)] 3.125 mg PO BID #90 tab Primary Care Physician: Tio Parker MD [Primary Care Provider] - Please follow up with your Primary Care Physician in: 1 week. Please Follow Up With: Jeffrey Campos MD When: 2 weeks. Please Follow Up With: Nitesh Mackenzie MD When: 2-3 weeks. Disposition: [facility] facility Minutes spent on discharge:: 35 Patient Condition:: Stable Medical Necessity - Tobacco Use Smoking Status: Current every day smoker Tobacco Use: - Meaningful Use Info Meaningful Use Diagnoses (Choose all that apply): CHF - CHF JONE/ARB ordered at discharge?: Yes Documented LVEF (%): 50 Code Visit Inpatient E&M: 05177 Disch Hosp
--- NOTE | 2017-07-04 15:39 | DS.PCM_ITS ---
Discharge Date and Diagnosis - Problem List Patient Problems: Active and Suspected Problems (Last Reviewed 06/13/17 @ 14:25 by Binta Isaac) Acute respiratory failure with hypoxia and hypercapnia (Acute) Pneumococcal pneumonia (Acute) Metabolic encephalopathy (Acute) Heart failure with reduced ejection fraction (Acute) Date of Admission: 06/20/17 Date of Discharge: 07/04/17 - Primary Discharge Diagnosis Active and Suspected Problems (Last Reviewed 06/13/17 @ 14:25 by Binta Isaac) #1 acute on chronic hypoxic and hypercapnic respiratory failure. #2 healthcare associated pneumonia. #3 acute on chronic systolic CHF. #4 coronary artery disease status post stent and left circumflex. #5 metabolic encephalopathy. - Secondary Discharge Diagnosis Chronic Problems (Last Reviewed 06/13/17 @ 14:25 by Binta Isaac) Ischemic cardiomyopathy (Chronic) Chronic systolic congestive heart failure (Chronic) Presence of stent in coronary artery (Chronic ~02/25/16) PCI/stent LAD w/ 4.0 x 32 mm Promus 2012; PCI/GISSEL to Prox LAD w/ 4.0 x 20 mm Promus 02/25/16 for instent restenosis Atherosclerotic heart disease of [place] coronary artery without angina pectoris (Chronic) PCI/stent LAD w/ 4.0 x 32 mm Promus 2012; PCI/GISSEL to Prox LAD w/ 4.0 x 20 mm Promus 02/25/16 for instent restenosis Asthma-COPD overlap syndrome (Chronic) FEV1 46% (01/11/2017) DM2 (diabetes mellitus, type 2) (Chronic) NSTEMI (non-ST elevated myocardial infarction) (Chronic) Venous stasis of lower extremity (Chronic) Ischemic cardiomyopathy (Chronic) EF of 35% on Cath in February of 2014 Hospital Course and Treatment Imaging Results: Clinical Impression(s) from Imaging Studies Brain CT 06/20/17 13:13 IMPRESSION: Normal unenhanced CT scan of the brain. Electronically Signed: Akhil Izquierdo MD at 15:15 EDT Tel [phone], Service support , Chest X-Ray 06/20/17 13:15 IMPRESSION: The tip of the endotracheal tube is at 3.5 cm proximal to the byron. Cardiomegaly. Findings suggestive of vascular congestion with infiltrate and/or atelectasis is worse on the right side with thickening of the right minor fissure. Electronically Signed: Akhil Izquierdo MD at 14:01 EDT Tel [phone], Service support , Chest X-Ray 06/25/17 03:30 IMPRESSION: 1. Enteric tube is in appropriate position. 2. Improved aeration of the right lung since the previous study. Persistent airspace disease in the left lung may represent pneumonia. Electronically Signed: Laura Duarte MD at 7:56 EDT Tel , Service support , Chest X-Ray 06/25/17 10:33 IMPRESSION: 1. Enteric tube is in appropriate position. 2. Improved aeration of the right lung since the previous study. Electronically Signed: Katya Wright MD at 12:08 EDT , Service support , Chest X-Ray 06/27/17 07:26 IMPRESSION: Increasing right basilar atelectasis and/or infiltrate. The remaining examination is unchanged. Electronically Signed: Akhil Izquierdo MD at 12:57 EDT Tel [phone], Service support , Chest X-Ray 06/28/17 07:02 IMPRESSION: The tip of the endotracheal tube is at 5.3 cm proximal to the byron. Slight increase in the blunting of the left costophrenic angle. Electronically Signed: Akhil Izquierdo MD at 11:01 EDT Tel [phone], Service support , Dr. Denny/Dr. Campos, critical care. Dr. Li,/Dr. Mackenzie, cardiology. Operations: None Procedures: 2-D Echocardiogram, Cardiac catheterization, EKG, Intubation Summary of Care Provided: Patient seen and examined on the day of discharge and appeared to be stable to be discharged to senior care facility. His breathing remains stable and his pulse ox is maintained on 3 L of oxygen. All over, is feeling better. Denied chest pain or palpitations. His vital signs are stable, pulse ox is 96% on 3 L. - Physical Exam General: Alert, Oriented x3, Cooperative, No apparent distress. HEENT: Atraumatic, PERRLA, EOMI. Neck: Supple, No JVD, Negative Carotid Bruits, Trachea Midline, Thyroid Normal. Lungs: Decreased breath sounds at the bases, more on the right base, scattered rhonchi, No wheeze, No rales. Cardiovascular: Regular rate, Regular Rhythm, Normal S1, Normal S2, PMI Normal. Abdomen: Bowel Sounds Present, Soft, Non Tender, Non-Distended, No Hepato- splenomegaly. Extremities: No clubbing, No cyanosis, No edema Skin: No rashes, No breakdown Neurological: Neuro grossly intact Vital Signs are stable. Hospital course: The patient is a 57 year old M presented to the emergency room because he was found unresponsive, found to have acute on chronic hypoxic and hypercapnic respiratory failure that required endotracheal intubation and mechanical ventilation which is precipitated by healthcare associated pneumonia and acute on chronic systolic CHF. The patient has long protracted course during this hospital stay with multiple procedures. #1 acute on chronic hypoxic and hypercapnic respiratory failure: Secondary to pneumonia and acute and chronic systolic CHF. Initially, patient was admitted to intensive care unit, intubated and started on mechanical ventilation. Today , patient was able to be extubated, remains on BiPAP as well as high flow oxygen. He was treated with IV antibiotics and IV Lasix for diuresis. He was transferred to PCU and he remains on 3 L of oxygen as well as BiPAP during sleep and during naps. At home, patient has been on oxygen and he mentioned he has been more than 2 L of oxygen at home. He has been stable on 3 L of oxygen for the last 3 days. Patient discharged to senior care facility in a stable medical condition, discharged on Levaquin 750 mg p.o. daily, tapering course of prednisone and bronchodilators. #2 healthcare associated pneumonia, right upper lobe: Treated with antibiotics. Sputum culture revealed corynebacterium striatum. Blood culture showed no growth in 5 days. Pneumococcal and Legionella antigen were negative. Nasal swab for influenza a and B were negative. Discharged on Levaquin 750 mg p.o. daily for 7 days #3 acute on chronic systolic CHF: Treated with IV Lasix for diuresis. Dose of losartan and Coreg adjusted by cardiology. With diuresis, patient's volume status stabilized as well as respiratory status. 2D echocardiogram revealed ejection fraction of 50%. Patient underwent cardiac catheterization that revealed occluded RCA and retrograde dissection of the dominant left circumflex , underwent PTCA and drug-eluting stents to mid left circumflex. Patient discharged on aspirin, statins, Plavix, Coreg, losartan and Lasix 80 mg p.o. twice daily. #4 CAD status post stent to mid left circumflex. Status post PTCA and drug- eluting stent to mid left circumflex. As mentioned above, patient was discharged on aspirin, statins, Plavix, beta blockers and losartan. #5 metabolic encephalopathy: Secondary to acute on chronic hypoxic and hypercapnic respiratory failure as well as pneumonia. CT scan brain done on admission and revealed normal unenhanced CT scan of the brain. #6 type 2 diabetes mellitus: Blood sugar was controlled during this hospital stay. Discharged on the same dosage of metformin. #7 COPD: Treated with bronchodilators and steroids. Patient discharged on tapering course of prednisone. #8 ischemic cardiomyopathy: 2D echocardiogram revealed ejection fraction of 50% and on the cardiac catheterization, ejection fraction was 45%. He underwent stenting of the mid left circumflex as mentioned above. He was discharged in the standard treatment for CAD and CHF. Patient discharged to senior care facility in a stable medical condition, discharged on aspirin, Plavix, statins, beta blockers and losartan, discharged on Lasix 80 mg p.o. twice daily for acute and chronic systolic CHF, discharged on Levaquin for 7 days, discharged on tapering course of prednisone, discharged on oxygen at 3 L, Zaroxolyn discontinued plan is to follow-up with PCP in 1 week , follow-up with pulmonology in 2 weeks and follow-up with cardiology in 2-3 weeks. This note was generated with [employer] dictation software. It may contain incorrect words, spelling, and punctuation that were not noted in checking the note before signing. Home Medications: Medications to take at Discharge Mometasone/Formoterol [Dulera 200 Mcg/5 Mcg Inhaler] 1 puff IH BID 07/11/14 Aspirin E.C. [Ecotrin] 81 mg PO DAILY@0800 12/27/15 Atorvastatin Calcium [Lipitor] 40 mg PO QHS 12/27/15 Mag Hydrox/Al Hydrox/Simeth [Antacid Liquid] 30 ml PO Q4H PRN PRN 12/27/15 Magnesium Hydroxide [Milk Of Magnesia] 30 ml PO DAILY PRN PRN 12/27/15 Polyvinyl Alcohol/Povidone/Pf [Refresh Classic Eye Drops] 1 ea OP PRN PRN Acetaminophen [Mapap] 1,000 mg PO TID PRN PRN 01/17/17 Albuterol Aerosols [Ventolin Aerosols] 2.5 mg INHALATION TID 01/17/17 Meloxicam [Mobic] 15 mg PO DAILY 01/17/17 Polyethylene Glycol 3350 [Miralax] 17 gm PO DAILY 01/17/17 losartan 50 mg tablet 25 mg PO DAILY tab 06/13/17 potassium chloride ER 20 mEq tablet,extended release 20 meq PO DAILY 06/13/17 Clopidogrel Bisulfate [Plavix] 75 mg PO DAILY 06/20/17 Gabapentin [Neurontin] 400 mg PO TID 06/20/17 Metformin HCl [Glucophage] 1,000 mg PO BIDCM 06/20/17 Montelukast [Singulair] 10 mg PO DAILY 06/20/17 Carvedilol [Coreg (Beta Kareem)] 3.125 mg PO BID #90 tab 07/04/17 Furosemide [Lasix] 80 mg PO BID@1000,1800 #90 tab 07/04/17 Ipratropium/Albuterol Sulfate [Duoneb] 3 ml INHALATION Q6HWA.RT #1 ampul.neb Prednisone 10 mg PO DAILY #30 tab 07/04/17 levoFLOXacin tablet [Levaquin tablet] 750 mg PO DAILY@0600 #7 tab 07/04/17 Following Prescrptions Were Given to Patient: Ipratropium/Albuterol Sulfate [Duoneb] 3 ml INHALATION Q6HWA.RT #1 ampul.neb Furosemide [Lasix] 80 mg PO BID@1000,1800 #90 tab levoFLOXacin tablet [Levaquin tablet] 750 mg PO DAILY@0600 #7 tab Prednisone 10 mg PO DAILY #30 tab Carvedilol [Coreg (Beta Kareem)] 3.125 mg PO BID #90 tab Primary Care Physician: Tio Parker MD [Primary Care Provider] - Please follow up with your Primary Care Physician in: 1 week. Please Follow Up With: Jeffrey Campos MD When: 2 weeks. Please Follow Up With: Nitesh Mackenzie MD When: 2-3 weeks. Disposition: [facility] facility Minutes spent on discharge:: 35 Patient Condition:: Stable Medical Necessity - Tobacco Use Smoking Status: Current every day smoker Tobacco Use: - Meaningful Use Info Meaningful Use Diagnoses (Choose all that apply): CHF - CHF JONE/ARB ordered at discharge?: Yes Documented LVEF (%): 50 Code Visit Inpatient E&M: 75130 Disch Hosp
== END 2017-07-04 16:40 | disposition skilled nursing facility (03) | DRG 468 ==
LOC: ED 16:00 → ICU 17:15 → PCU 07-01 10:59
PROVIDERS: Internal Medicine; Internal Medicine Cardiovascular Disease; Internal Medicine Critical Care Medicine; Student in an Organized Health Care Education/Training Program; Emergency Provider Emergency Medicine; Family Provider Family Medicine; PCP Family Medicine; Visit Provider Hospitalist
DX: J96.01 Acute respiratory failure with hypoxia (principal); J44.0 Chronic obstructive pulmonary disease with (acute) lower respiratory infection; J13 Pneumonia due to Streptococcus pneumoniae; J44.1 Chronic obstructive pulmonary disease with (acute) exacerbation; I11.0 Hypertensive heart disease with heart failure; I50.43 Acute on chronic combined systolic (congestive) and diastolic (congestive) heart failure; E87.6 Hypokalemia; E87.0 Hyperosmolality and hypernatremia; E87.4 Mixed disorder of acid-base balance; Y95 Nosocomial condition; E11.9 Type 2 diabetes mellitus without complications; N47.1 Phimosis; J96.02 Acute respiratory failure with hypercapnia; G93.41 Metabolic encephalopathy; I25.5 Ischemic cardiomyopathy; I25.10 Atherosclerotic heart disease of native coronary artery without angina pectoris; E78.5 Hyperlipidemia, unspecified; G47.33 Obstructive sleep apnea (adult) (pediatric); F17.210 Nicotine dependence, cigarettes, uncomplicated; E66.01 Morbid (severe) obesity due to excess calories; Z68.43 Body mass index [BMI] 50.0-59.9, adult; I25.2 Old myocardial infarction; Z79.84 Long term (current) use of oral hypoglycemic drugs; Z79.02 Long term (current) use of antithrombotics/antiplatelets; Z79.82 Long term (current) use of aspirin; Z79.899 Other long term (current) drug therapy; Z91.19 Patient's noncompliance with other medical treatment and regimen; Z87.01 Personal history of pneumonia (recurrent); Z95.5 Presence of coronary angioplasty implant and graft
CPT/HCPCS: 31500; 31720; 36569; 36600; 70450; 71045; 80048; 80053; 81001; 82550; 82803; 82962; 83605; 83735; 83880; 84100; 84484; 85025; 85027; 85347; 85610; 85730; 87040; 87070; 87077; 87086; 87205; 87449; 87641; 87804; 92928; 92978; 93005; 93306; 93458; 94002; 94003; 94640; 94660; 95831; 97110; 97116; 97163; 97165; 97530; 97535; 97802; 97803; 99251; 99285; 99406; J7040; J7050; Q9957; Q9967; A4216; C1725; C1753; C1769; C1874; C1887; C8929; C9600; G0463; J1940

== ENCOUNTER → 2017-11-17 14:09 | Outpatient (CLI) | payer MEDICARE, MEDICAID, SELFPAY ==
[2017-06-29 08:47] VITALS: BMI 43.2
--- NOTE | 2017-11-17 14:13 | VDLE_ITS ---
Reason For Study: pain RIGHT LEFT CFV is compressible, spontaneous, phasic, GSV is normal. competent and demonstrates normal CFV is compressible, spontaneous, phasic, augmentation. competent, and demonstrates normal Procedure augmentation. Exam performed in department. FV is compressible, spontaneous, phasic, The exam was of fair technical quality due competent and demonstrates normal to pt body habitus. augmentation. Limited views due to pt body habitus. POP V is compressible, spontaneous, phasic, A preliminary report was called and/or faxed competent and demonstrates normal to Connor BARRERA. augmentation. T/P Trunk is compressible. PTV is compressible. LT PerV is compressible. Interpretation Summary Deep veins of the left lower extremity are patent and compressible segmentally. There is no evidence of left lower extremity deep vein thrombosis. Valvular competence appears intact within the proximal deep venous system on the left . The left greater saphenous vein appears patent and compressible segmentally. Ordering Physician: Darryn Walsh Performed By: Kiran Ward RVT
== END ==
PROVIDERS: Family Provider Family Medicine; PCP Family Medicine; Referring Provider Physician Assistant; Visit Provider Physician Assistant
DX: M79.662 Pain in left lower leg (principal)
CPT/HCPCS: 93971

== ENCOUNTER 2017-12-12 07:14 | Inpatient (IN) | payer MEDICARE, MEDICAID, SELFPAY ==
[2017-06-29 08:47] VITALS: BMI 43.2
[2017-12-12] VITALS (31 sets, daily range): BP systolic 83–126; BP diastolic 41–78; PULSE 85–108; RESP 14–18; TEMP 36.5–38.9; O2SAT 87–97; BMI 56.4; BMI 55.5
--- NOTE | 2017-12-12 07:19 | ED.RN ---
PT BAGGED ON ARRIVAL. PHYSICIAN TO ROOM. INTUBATED
--- NOTE | 2017-12-12 07:22 | EKG12_ITS ---
Test Reason : UNRESPONSIVE Blood Pressure : / mmHG Vent. Rate : 091 BPM Atrial Rate : 091 BPM P-R Int : 162 ms QRS Dur : 084 ms QT Int : 346 ms P-R-T Axes : 009 072 251 degrees QTc Int : 425 ms Normal sinus rhythm Low voltage QRS Septal infarct , age undetermined ST & T wave abnormality, consider inferior ischemia Abnormal ECG Confirmed by MATILDA CABA, ELMER ([id number]), scientific editor SELINA TSANG ([id number]) on 12/13/2017 2:09:16 PM Referred By: WANG Confirmed By:ELMER GREY MD
--- NOTE | 2017-12-12 07:34 | CT_ITS ---
STUDY: CT BRAIN WITHOUT CONTRAST REASON FOR EXAM: Male, 57 years old. Unresponsive patient. RADIATION DOSAGE (If Supplied By Facility): CTDIvol = ( 44.99 ) mGy, DLP = ( 863.60 ) mGycm TECHNIQUE: Transaxial CT imaging of the brain was performed without administration of intravenous contrast material. Multiplanar reformations are submitted for interpretation. Individualized dose optimization techniques were used for this CT. COMPARISON: CT of the head dated June 20, 2017. FINDINGS: Normal soft tissue structures. Normal calvarium. Patient is intubated. Normal size ventricles and extra-axial spaces for the patient's age. There are areas of decreased attenuation within the white matter tracts of the supratentorial brain, consistent with microvascular disease changes. Normal basal ganglia and thalami. Normal brainstem. Normal cerebellum. There is no intracranial hemorrhage. There is patchy atherosclerotic calcification of the intracranial arteries. There is mucoperiosteal thickening in the ethmoid sinuses. CT/Brain/Head without Contrast IMPRESSION: No CT evidence of acute intracranial hemorrhage. Electronically Signed: Katya Wright MD at 8:54 EST , Service support ,
--- NOTE | 2017-12-12 07:40 | RAD_ITS ---
STUDY: X-RAY CHEST REASON FOR EXAM: Male, 57 years old. Respiratory failure. TECHNIQUE: Single AP portable view of the chest. COMPARISON: June 28, 2017. FINDINGS: The patient is intubated. The tip of endotracheal tube is at the medial clavicles. Enteric tube is present with the distal end below the inferior edge of image. The lungs are expanded. There are prominent bronchovascular markings in both lungs. There is no demonstrated pleural abnormality. There is mild cardiac enlargement. Normal mediastinum and marta. There is prominence of the pulmonary hilar arteries with peripheral pulmonary vascular congestion. There is atherosclerotic calcification of the aortic arch with tortuosity. There are diffuse degenerative changes of the visualized thoracic spine. There are degenerative changes of both shoulders. There is no demonstrated abnormality of the visualized soft tissue structures of the upper abdomen. RAD/Chest 1 View (Portable) IMPRESSION: Cardiomegaly and mild pulmonary congestion. Electronically Signed: Katya Wright MD at 8:02 EST , Service support ,
[2017-12-12 07:48] LABS: Absolute Lymphocyte Count 1.17 X10^3/ul (0.83-4.51); Absolute Neutrophil Count 6.7 X10^3/uL (2.0-7.7); Basophil# 0.03 X10^3/uL; Basophil% 0.3 % (0-1); Eosinophil# 0.09 X10^3/uL; Hematocrit 40.5 % (40-54); Hemoglobin 11.9 g/dl (13.0-16.5); Lymphocyte # 1.17 X10^3/ul (4.0); Lymphocyte % 13.1 % (19-41); Mean Corp Hgb Conc 29.4 g/gl (32-36); Mean Corpuscular Hgb 29.1 pg (27.0-32.0); Mean Platelet Vol. 9.6 fl (6.2-12.0); Neutrophil # 6.69 X10^3/uL (2.7-7.7); Neutrophil % 75.1 % (47-70); Platelet Count 256 K/mm3 (150-450); RBC Distribution Width CV 16.4 % (11.6-14.6); RBC Distribution Width SD 58.1 fl (35.1-43.9); Red Blood Count 4.09 M/mm3 (4.6-6.2); White Blood Count 8.9 K/mm3 (4.4-11.0)
[2017-12-12] MEDS: HYDROmorphone 1 MG/ML Syringe 2 MG IV (07:49)
[2017-12-12] MEDS: LORazepam 2 MG/ML Syringe IV (07:49)
[2017-12-12 07:50] LABS: International Normalized Ratio 1.1; Prothrombin Time (Protime)PT. 13.8 SECONDS (11.7-14.9)
[2017-12-12] MEDS: Etomidate 20 MG/10 ML Vial IV (07:50)
[2017-12-12 07:51] LABS: Partial Thromboplast Time 30.5 Seconds (24.1-36.2)
[2017-12-12] MEDS: Vecuronium Bromide 10 MG/10 ML Vial IV (07:51)
[2017-12-12] MEDS: Succinylcholine Chloride 200 MG/10 ML Vial 120 MG IV (07:51)
[2017-12-12] MEDS: 0.9% Normal Saline 1,000 ML 999 ML IV (07:52)
[2017-12-12] MEDS: Propofol 10MG/Ml 1,000 MG/100 ML Bottle 5.201 MG CONT INF ×2 (07:53→16:46)
[2017-12-12] MEDS: Ipratropium/Albuterol Sulfate 3 ML AMPUL.NEB INHALATION (07:53)
[2017-12-12 07:54] LABS: POSITIVE COUNT NO; POSITIVE DIFFERENTIAL NO; POSITIVE MORPHOLOGY NO
[2017-12-12 08:04] LABS: ALB/GLOB Ratio 0.7 RATIO (0.9-2.4); AST(SGOT) 15 U/L (15-37); Alanine Aminotransfer ALT/SGPT 33 U/L (16-61); Albumin, Serum 3.1 g/dL (3.2-5.0); Alkaline Phosphatase 87 U/L (45-117); Anion Gap 1 (5-15); BUN 25 mg/dL (7-18); BUN/Creat Ratio 30.6 RATIO (10-20); Calcium,Total 7.9 mg/dL (8.5-10.1); Chloride 96 mmol/L (98-107); Creatinine, Serum 0.82 mg/dL (0.70-1.30); EST Glomerular Filtration Rate 102 mL/min (>60); Est Glom Filt Rate - Afr Amer 124 mL/min (>60); Globulin 4.5 g/dL (2.2-4.2); Glucose 146 mg/dL (74-106); Potassium 4.5 mmol/L (3.5-5.1); Protein, Total 7.6 g/dL (6.4-8.2); Sodium Level 138 mmol/L (136-145)
[2017-12-12 08:11] LABS: Allen Test POS; Base Excess 12 mmol/L (-2 to +2); Bicarbonate 39.8 mmol/L (22-26); Blood Gas Specimen Type ART; FI02 100; Mode A-C; O2 Delivery Device Vent; PEEP 8; PO2 77 mmHG (75-100); RR 14; SITE R Radial; SO2 91 % (95-99); Time Given 802; Total Carbon Dioxide 43 mmol/L; Vt 450; pCO2 94.8 mmHg (35-45); pH 7.23 (7.35-7.45)
[2017-12-12 08:25] LABS: Lactic Acid 1.2 mmol/L (0.4-2.0)
--- NOTE | 2017-12-12 08:35 | ED.VISSUMM ---
- ER Visit Summary Date of Service: 12/12/17 Chief Complaint: Unresponsive History of Present Illness: The patient is a [address] Campos, Dr. Li, and Dr. Parker. Per ED staff and EMS patient has had shortness of breath for approximately 5 days. The intermediate called the emergency department 3 days ago and stated they were sending him in. When EMS arrived patient refused. This morning he had worsening of his status and did agree to be transported. On the way to the emergency department the patient became unresponsive. He still has a pulse, but he has agonal respirations and is being bagged by EMS upon arrival. Physical Examination: Vitals: 98.8, 126/65, 97, 18, 96% on bag valve mask. General: Well-nourished and well-developed. Head: Normocephalic atraumatic. Neck: Supple, no lymphadenopathy. No JVD. Nontender. Cardiovascular: Regular rate and rhythm. 2 out of 6 systolic murmur. Respiratory: Agonal respirations. There is moderate wheezing bilaterally with greatly decreased air movement. Abdominal: Soft, nontender, nondistended, normal bowel sounds. No guarding, rebound, or peritoneal signs. Back: Nontender. Extremities: Nontender, 2+ pitting edema of his lower extremities bilaterally with chronic venous stasis changes. Skin: Normal color, no rash. Neurologic: Unresponsive. Does withdraw to painful stimulus.. Test Results: EKG is sinus at 91 with diffuse T wave inversions. This is a change from July 01, 2017. Initial troponin 0 0.022. LFTs remarkable for a globulin of 4.5 and albumin 3.1. Chem-7 is marked for chloride of 96, BUN 25, calcium 7.9 glucose 146. CBC is more for hemoglobin 11.9, 7 neutrophils 75, lymphocytes 13. Chest x-ray shows cardiomegaly and pulmonary congestion. The ET tube is in good position. CT brain shows chronic changes. Emergency Department Course and Treatment: Patient was seen immediately upon arrival to the emergency department. He was intubated on the first attempt by myself. He was given etomidate and succinylcholine prior to this. He was then sedated with Dilaudid and Ativan IV and started on a propofol drip. Multiple attempts were made a Butler catheter. However, the patient has a phimosis and this was unsuccessful. Treatment Plan: Patient was discussed with Dr. Denny and will be discussed with the hospitalist. He will be admitted for further evaluation and treatment. Disposition: Admitted in critical condition. Impression: 1. Respiratory failure. 2. Intubation by ED physician. 3. CHF. 4. COPD. 5. Phimosis. 6. Critical care time 30 minutes. This note was generated with [employer] dictation software. It may contain incorrect words, spelling, and punctuation that were not noted in review of the chart prior to signing ED Disposition - Plan for ED Patient: Chief Complaint: Unresponsive Referrals: Tio Parker MD [Primary Care Provider] -
--- NOTE | 2017-12-12 08:48 | ED.RN ---
PT TO CT AND RETURNED TO ROOM. VITALS REMAINED STABLE. PT REMAINS SEDATED
--- NOTE | 2017-12-12 08:49 | ED.RN ---
PT ARRIVES 07. 0715 # 20 PLACED TO RT AC. 0717 ETOMIDATE 20 MG AND 120 MG OF SUCCHS. 0719 INTUBATED 7.5 SIZE 21 AT LIP. 0721 NG TO LIS
--- NOTE | 2017-12-12 09:06 | HP.PCM_ITS ---
History of Present Illness Date of Admission: 12/12/17 Chief Complaint: shortness of breath The patient is a 57 year old M with an extensive past medical history as listed below. Patient was admitted through the ED on 12/12/2017 after he had complained in his [place] [facility] shortness of breath for the past 5 days. The [place] [facility] call the ED about 3 days ago and wanted to send him into the ED but patient refused when EMS arrived. This morning he had worsening of his shortness of breath and agreed to be brought to the ED. On the way to the ED in the EMS, he went into respiratory arrest was being bagged by EMS upon arrival. On arrival in the ED, his vitals were 98.8 and blood pressure was 126/65 and he was saturating 96% on room air. EKG done in the ED showed sinus rhythm with diffuse T wave inversions and initial troponin was 0.022. Chest x-ray showed cardiomegaly and pulmonary congestion. He was emergently intubated in the ED and admitted to be managed for respiratory arrest due to 2 CHF exacerbation. I was unable to take history from patient does at time of review because he was intubated and sedated and was poorly responsive. History was as per ED notes. [] Past Medical History Past Medical History (Chronic Problems): Chronic Problems (Last Updated 11/10/17 @ 12:14 by Brennon Maloney NP-C) Pure hypercholesterolemia (Chronic) History of anterolateral myocardial infarction (Chronic 05/03/12) History of cardiac arrest (Chronic 06/22/17) Hypersomnia (Chronic) EMILIA (obstructive sleep apnea) (Chronic) History of cardiac catheterization (Chronic 02/25/16) 05/03/12 @ [place] per [facility]; 02/21/2014 per [facility] @ [facility] (no stents needed); 02/22 17 per [facility] @ [facility] prior to PCI and GISSEL to proximal LAD; 06/28/17 after cardiac arrest, prior to GISSEL of mid LCX Nicotine dependence, cigarettes, uncomplicated (Chronic) Chronic systolic congestive heart failure (Chronic) Presence of stent in coronary artery (Chronic 06/29/17) PCI/stent LAD w/ 4.0 x 32 mm Promus 2012 ; PCI/GISSEL to Prox LAD w/ 4.0 x 20 mm Promus 02/25/16 for instent restenosis; PTCA/GISSEL to LCX 06/29/2017 Atherosclerotic heart disease of [place] coronary artery without angina pectoris (Chronic) PCI/stent LAD w/ 4.0 x 32 mm Promus 2012; PCI/GISSEL to Prox LAD w/ 4.0 x 20 mm Promus 02/25/16 for instent restenosis; PTCA/GISSEL to LCx in June 2017; Asthma-COPD overlap syndrome (Chronic) FEV1 46% (01/11/2017) DM2 (diabetes mellitus, type 2) (Chronic) NSTEMI (non-ST elevated myocardial infarction) (Chronic 12/21/16) 02/20/16 Venous stasis of lower extremity (Chronic) Ischemic cardiomyopathy (Chronic) EF of 35% on Cath in February of 2014; 50% per echo 06/21/2017 Medical History: Medical History (Last Updated 11/10/17 @ 12:14 by KARLA HernandezC) Pure hypercholesterolemia (Chronic) E78.00 History of anterolateral myocardial infarction (Chronic) Onset Date: 05/03/12 I25.2 History of cardiac arrest (Chronic) Onset Date: 06/22/17 Z86.74 Hypersomnia (Chronic) G47.10 EMILIA (obstructive sleep apnea) (Chronic) G47.33 Nicotine dependence, cigarettes, uncomplicated (Chronic) F17.210 EMILIA (obstructive sleep apnea) (Suspected) G47.33 Acute respiratory failure with hypoxia and hypercapnia (Acute) J96.01, J96.02 Pneumococcal pneumonia (Acute) J13 Metabolic encephalopathy (Acute) G93.41 Heart failure with reduced ejection fraction (Acute) I50.20 Chronic systolic congestive heart failure (Chronic) I50.22 Atherosclerotic heart disease of [place] coronary artery without angina pectoris (Chronic) I25.10 PCI/stent LAD w/ 4.0 x 32 mm Promus 2012; PCI/GISSEL to Prox LAD w/ 4.0 x 20 mm Promus 02/25/16 for instent restenosis; PTCA/GISSEL to LCx in June 2017; Asthma-COPD overlap syndrome (Chronic) J44.9 FEV1 46% (01/11/2017) DM2 (diabetes mellitus, type 2) (Chronic) E11.9 NSTEMI (non-ST elevated myocardial infarction) (Chronic) Onset Date: 12/21/16 I21.4 02/20/16 Venous stasis of lower extremity (Chronic) I87.8 Ischemic cardiomyopathy (Chronic) I25.5 EF of 35% on Cath in February of 2014; 50% per echo 06/21/2017 Hypoxia R09.02 Chest pain (Resolved) R07.9 Respiratory failure, acute (Resolved) J96.00 Hyponatremia (Inactive) E87.1 Allergies adhesive tape Adverse Reaction (Verified 11/10/17 12:17) Rash Home Medications: Ambulatory Orders Medication Instructions Recorded Aspirin E.C. [Ecotrin] 81 mg PO DAILY@0800 12/27/15 Albuterol Aerosols [Ventolin 2.5 mg INHALATION TID 01/17/17 Aerosols] Meloxicam [Mobic] 15 mg PO DAILY 01/17/17 Polyethylene Glycol 3350 [Miralax] 17 gm PO DAILY 01/17/17 potassium chloride ER 20 mEq 20 meq PO DAILY 06/13/17 tablet,extended release Clopidogrel Bisulfate [Plavix] 75 mg PO DAILY 06/20/17 Gabapentin [Neurontin] 400 mg PO TID 06/20/17 Metformin HCl [Glucophage] 1,000 mg PO BIDCM 06/20/17 Montelukast [Singulair] 10 mg PO DAILY 06/20/17 Carvedilol [Coreg (Beta Kareem)] 3.125 mg PO BID #90 tab 07/04/17 Furosemide [Lasix] 80 mg PO BID@1000,1800 #90 tab 07/04/17 fluticasone-vilanterol INHALATION QDAY 07/27/17 pantoprazole 20 mg tablet,delayed 20 mg PO QDAY 07/27/17 release prednisone 10 mg tablet 10 mg PO QDAY 07/27/17 losartan 25 mg tablet 25 mg PO QDAY 08/04/17 atorvastatin 40 mg tablet 40 mg PO DAILY 11/10/17 Fluticasone/Vilanterol [Breo 1 puff INHALATION DAILY 12/12/17 Ellipta 200-25 Mcg INH] Gabapentin [Neurontin] 700 mg PO QHS 12/12/17 Prednisone 10 mg PO DAILY 12/12/17 Surgical History: Surgical History (Last Updated 11/10/17 @ 12:18 by Mirna Patiño) History of cardiac catheterization (Chronic) Onset Date: 02/25/16 Z98.890 05/03/12 @ [place] per [facility]; 02/21/2014 per [facility] @ [facility] (no stents needed); 02/22 17 per [facility] @ [facility] prior to PCI and GISSEL to proximal LAD; 06/28/17 after cardiac arrest, prior to GISSEL of mid LCX Presence of stent in coronary artery (Chronic) Onset Date: 06/29/17 Z95.5 PCI/stent LAD w/ 4.0 x 32 mm Promus 2012 ; PCI/GISSEL to Prox LAD w/ 4.0 x 20 mm Promus 02/25/16 for instent restenosis; PTCA/GISSEL to LCX 06/29/2017 Amputated great toe of left foot Z89.412 History of surgery on arm Z98.890 Surgery on left arm for infected muscle Surgical History: no surgical history Psychiatric History: No pertinent psych hx Smoking Status: Current every day smoker - *Family History Maternal Family History: Family History (Last Reviewed 11/10/17 @ 12:19 by Mirna Patiño) Mother Diabetes Heart disease History Items: No pertinent history, - - Unable to obtain as the patient is intubated and sedated Review of Systems Unable to obtain accurate/complete ROS d/t: patient intubated and sedated VTE Information - Inpt Only VTE Present on Admission: No VTE Pharm Prophylaxis ordered?: Yes - Physical Exam General: - - patient intubated, sedated RASS score: -3 HEENT: Atraumatic, PERRLA, EOMI, Normocephalic Oral: Moist Mucosa Neck: Supple, No JVD, Negative Carotid Bruits Lungs: Normal air movement, - - coarse crackles in mid and lower lung vences bilaterally Cardiovascular: Regular rate, Regular Rhythm, Normal S1, Normal S2, No murmurs Abdomen: Bowel Sounds Present, Soft, Non Tender, Non-Distended, No Hepato- splenomegaly Extremities: No clubbing, No cyanosis, Capillary Refill Less than 3 Seconds, - - bilateral pitting pedal edema- +2. Mild erythema over anterior shins bila terally, minimal differential warmth Skin: No rashes, No breakdown Musculoskeletal: No Tenderness to Palpation of Joints or Extremities Lymphatic: No Cervical, Supraclavicular, or Inguinal Adenopathy Neurological: - - patient intubated, sedated with propofol, RASS score: -4 Psych/Mental Status: - - sedated, intubated, RASS score -4 Vital Signs Temp Pulse Resp BP Pulse Ox 98.8 F 89 14 97/69 95 12/12/17 08:05 12/12/17 08:52 12/12/17 08:52 12/12/17 08:52 12/12/17 08:52 Oxygen Delivery Method Mechanical Ventilator Weight: 382 lb 3.094 oz Body Mass Index (BMI) 56.4 Laboratory Tests Past 24 Hrs 12/12/17 12/12/17 12/12/17 07:30 07:30 07:30 WBC 8.9 RBC 4.09 L Hgb 11.9 L Hct 40.5 MCV 99.0 H MCH 29.1 MCHC 29.4 L RDW 16.4 H RDW Differential 58.1 H Plt Count 256 MPV 9.6 Immature Gran % (Auto) 1.500 H Neut % (Auto) 75.1 H Lymph % (Auto) 13.1 L Appling % (Auto) 9.0 Eos % (Auto) 1.0 Baso % (Auto) 0.3 Absolute Neuts (auto) 6.7 Absolute Lymphs (auto) 1.17 Total Counted Not Reportable PT 13.8 INR 1.1 APTT 30.5 Specimen Type Sample Site pH Bicarbonate Actual POC Total CO2 Base Excess O2 Saturation O2 % ABG pCO2 ABG pO2 Salas Test Respiration Rate O2 Delivery Device Minute Volume Vent Mode Tidal Volume POC PEEP Blood Gas Notified Whom Blood Gas Notified Time Sodium 138 Potassium 4.5 Chloride 96 L Carbon Dioxide 41.0 H Anion Gap 1 L BUN 25 H Creatinine 0.82 Estim Creat Clear Calc 97.00 Est GFR (MDRD) Af Amer 124 Est GFR (MDRD) Non-Af 102 BUN/Creatinine Ratio 30.6 H Glucose 146 H Lactic Acid Calcium 7.9 L Total Bilirubin 0.40 AST 15 ALT 33 Alkaline Phosphatase 87 Troponin I 0.022 Total Protein 7.6 Albumin 3.1 L Globulin 4.5 H Albumin/Globulin Ratio 0.7 L 12/12/17 12/12/17 07:30 08:03 WBC RBC Hgb Hct MCV MCH MCHC RDW RDW Differential Plt Count MPV Immature Gran % (Auto) Neut % (Auto) Lymph % (Auto) Appling % (Auto) Eos % (Auto) Baso % (Auto) Absolute Neuts (auto) Absolute Lymphs (auto) Total Counted PT INR APTT Specimen Type ART Sample Site R Radial pH 7.23 L Bicarbonate Actual 39.8 H POC Total CO2 43 Base Excess 12 H O2 Saturation 91 L O2 % 100 ABG pCO2 94.8 H* ABG pO2 77 Salas Test POS Respiration Rate 14 O2 Delivery Device Vent Minute Volume 5.00 Vent Mode A-C Tidal Volume 450 POC PEEP 8 Blood Gas Notified Whom ED MD Blood Gas Notified Time 802 Sodium Potassium Chloride Carbon Dioxide Anion Gap BUN Creatinine Estim Creat Clear Calc Est GFR (MDRD) Af Amer Est GFR (MDRD) Non-Af BUN/Creatinine Ratio Glucose Lactic Acid 1.2 Calcium Total Bilirubin AST ALT Alkaline Phosphatase Troponin I Total Protein Albumin Globulin Albumin/Globulin Ratio Assessment/Plan All Active Problems (Last Updated 11/10/17 @ 12:14 by Brennon Maloney, ENTRY OPERATOR-C) Acute respiratory failure with hypoxia and hypercapnia (Acute) Pneumococcal pneumonia (Acute) Metabolic encephalopathy (Acute) Heart failure with reduced ejection fraction (Acute) Chest pain (Resolved) Respiratory failure, acute (Resolved) 1. Acute hypoxic and hyeprcarbic respiratory failure due to possible CHF exacerbation * With complaint of shortness of breath for the past 5 days. Acutely worsened today. * Went into respiratory arrest in the EMS on his way he. ABGs done showed pH of 7.23 with PCO2 of about 94. * Intubated in the ED. Sedated with propofol. RASS score is -4. * admit to ICU * development manager consult * CXR showed pulmonary congestion; initial troponin was 0.022; will cycle * BNP was only 207; [place] in light of his morbid obesity, it will fit in with heart failure * vent settings as per development manager * 2D echo * hold beta kareem due to decompensated heart failure and hypotension * diurese with IV lasix 40mg bid * wean off propofol to maintain RASS at 0 to -1 * breathing treatment * 2. ACute CHF exacerbation * History of chronic heart failure with reduced ejection fraction. * has history of ischemic cardiomyopathy * last echo(06/24): EF of 50%, unable to assess diastolic function. Mild segmental systolic dysfunction.left atrium mildly enlarged. Unable to assess PA systolic pressure * diurese with IV lasix 40mg bid. * 3. Diabetes mellitus: on ISS. accuchecks ACHS.will monitor 4. EMILIA: currently on ventilator due to respiratory failure 5. Hypertension: on losartan and carvedilol. WIll hold o/a of possible cardiogenic shock 6;. MOrbid obesity: BMI >50. This complicates medical care. DVT prophylaxis: heparin GI prophylaxis: famotidine Code Visit Inpatient E&M: [id number] Init Hosp L3
[2017-12-12 09:14] LABS: Mucous, Urine 0 SEEN /hpf (<or=2+); Red Blood Cells-Urine 0 SEEN /hpf (0-5); White Blood Cells 0 SEEN /hpf (0-5)
[2017-12-12 09:21] LABS: Color, Urine Yellow (Yellow); Glucose, Dipstick Normal (Normal); Ketone-Dipstick Negative (Negative); Leukocyte Esterase-Dipstick Negative /ul (Negative); Nitrite-Dipstick Negative (Negative); Occult Blood-Urine Negative /ul (Negative); Protein-Dipstick 30 mg/dl (Negative); Urine Bilirubin Dipstick Negative (Negative); Urine Clarity Sl. Cloudy (Clear); Urine Urobilinogen Normal (Normal)
[2017-12-12 09:27] LABS: Squamous Epithelial Cells - UA 0-5 SEEN /hpf (0-5)
[2017-12-12 09:28] LABS: Bacteria RARE /hpf (None Seen)
--- NOTE | 2017-12-12 09:34 | ED.RN ---
REPORT CALLED TO ELEANOR JACOB. PREPARING PT FOR TRANSPORT
--- NOTE | 2017-12-12 10:29 | PCM.CON.CC ---
Reason for Consult Date of Consultation: 12/12/17 Reason for Consultation: Acute on chronic respiratory failure History of Present Illness: The patient is a 57-year-old male, with a history as outlined below, who presented to the emergency department by EMS on December 12 in an unresponsive state and in respiratory distress. Per report, the patient had been complaining of progressively worsening shortness of breath over the last week. The patient assisted [facility] called EMS several days ago to have the patient transported to the hospital for evaluation. However, upon EMS arrival, the patient refused to be transported to the hospital. The patient appears to have a history of underlying asthma, heart failure, tobacco dependence and obstructive sleep apnea, for which he is noncompliant with outpatient medical recommendations. The patient follows with Dr. Campos in the pulmonary medicine clinic and was last seen by him in October. At that time, it was noted that the patient was noncompliant with the use of exertional supplemental oxygen and had refused and continued to refuse the use of nocturnal PAP therapy. The patient also continues to smoke cigarettes daily. It does appear that according to the hospital log of the patient's weight, he is put on a considerable amount since November 2017 when he was noted to be 346 pounds. On arrival to the hospital, he was documented to be 382 pounds. The patient's last surface echocardiogram dated June 2017 revealed mild segmental systolic dysfunction with an ejection fraction of 50%. The right ventricular systolic pressure was unable to be estimated. On presentation to the emergency department, the patient was noted to be afebrile and hypoxic. The patient was noted by ED staff to have agonal respirations. He was emergently intubated upon arrival due to state of encephalopathy and the need to protect his airway. Laboratory evaluation revealed no evidence of a leukocytosis. Coagulation profile was within normal limits. Chemistry profile revealed a chronically elevated serum bicarbonate of 41. Urinalysis was unremarkable. Arterial blood gas was obtained shortly after intubation revealed a pH of 7.23 with a PCO2 of 95 and PO2 of 77. The patient was subsequently transferred to the medical intensive care unit for ongoing management. 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/12) History of cardiac arrest (Chronic 06/22/17) Hypersomnia (Chronic) EMILIA (obstructive sleep apnea) (Chronic) History of cardiac catheterization (Chronic 02/25/16) 05/03/12 @ [place] per [facility]; 02/21/2014 per [facility] @ [facility] (no stents needed); 02/23 16 per [facility] @ [facility] prior to PCI and GISSEL to proximal LAD; 06/28/17 after cardiac arrest, prior to GISSEL of mid LCX Nicotine dependence, cigarettes, uncomplicated (Chronic) Chronic systolic congestive heart failure (Chronic) Presence of stent in coronary artery (Chronic 06/29/17) PCI/stent LAD w/ 4.0 x 32 mm Promus 2012 ; PCI/GISSEL to Prox LAD w/ 4.0 x 20 mm Promus 02/25/16 for instent restenosis; PTCA/GISSEL to LCX 06/29/2017 Atherosclerotic heart disease of [place] coronary artery without angina pectoris (Chronic) PCI/stent LAD w/ 4.0 x 32 mm Promus 2012; PCI/GISSEL to Prox LAD w/ 4.0 x 20 mm Promus 02/25/16 for instent restenosis; PTCA/GISSEL to LCx in June 2017; Asthma-COPD overlap syndrome (Chronic) FEV1 46% (01/11/2017) DM2 (diabetes mellitus, type 2) (Chronic) NSTEMI (non-ST elevated myocardial infarction) (Chronic 12/21/16) 02/20/16 Venous stasis of lower extremity (Chronic) Ischemic cardiomyopathy (Chronic) EF of 35% on Cath in February of 2014; 50% per echo 06/21/2017 Medical History: Medical History (Last Updated 11/10/17 @ 12:14 by Brennon Maloney NP-C) Pure hypercholesterolemia (Chronic) E78.00 History of anterolateral myocardial infarction (Chronic) Onset Date: 05/03/12 I25.2 History of cardiac arrest (Chronic) Onset Date: 06/22/17 Z86.74 Hypersomnia (Chronic) G47.10 EMILIA (obstructive sleep apnea) (Chronic) G47.33 Nicotine dependence, cigarettes, uncomplicated (Chronic) F17.210 EMILIA (obstructive sleep apnea) (Suspected) G47.33 Acute respiratory failure with hypoxia and hypercapnia (Acute) J96.01, J96.02 Pneumococcal pneumonia (Acute) J13 Metabolic encephalopathy (Acute) G93.41 Heart failure with reduced ejection fraction (Acute) I50.20 Chronic systolic congestive heart failure (Chronic) I50.22 Atherosclerotic heart disease of [place] coronary artery without angina pectoris (Chronic) I25.10 PCI/stent LAD w/ 4.0 x 32 mm Promus 2012; PCI/GISSEL to Prox LAD w/ 4.0 x 20 mm Promus 02/25/16 for instent restenosis; PTCA/GISSEL to LCx in June 2017; Asthma-COPD overlap syndrome (Chronic) J44.9 FEV1 46% (01/11/2017) DM2 (diabetes mellitus, type 2) (Chronic) E11.9 NSTEMI (non-ST elevated myocardial infarction) (Chronic) Onset Date: 12/21/16 I21.4 02/20/16 Venous stasis of lower extremity (Chronic) I87.8 Ischemic cardiomyopathy (Chronic) I25.5 EF of 35% on Cath in February of 2014; 50% per echo 06/21/2017 Hypoxia R09.02 Chest pain (Resolved) R07.9 Respiratory failure, acute (Resolved) J96.00 Hyponatremia (Inactive) E87.1 Allergies adhesive tape Adverse Reaction (Verified 11/10/17 12:17) Rash Home Medications: Ambulatory Orders Medication Instructions Recorded Aspirin E.C. [Ecotrin] 81 mg PO DAILY@0800 12/27/15 Albuterol Aerosols [Ventolin 2.5 mg INHALATION TID 01/17/17 Aerosols] Meloxicam [Mobic] 15 mg PO DAILY 01/17/17 Polyethylene Glycol 3350 [Miralax] 17 gm PO DAILY 01/17/17 potassium chloride ER 20 mEq 20 meq PO DAILY 06/13/17 tablet,extended release Clopidogrel Bisulfate [Plavix] 75 mg PO DAILY 06/20/17 Gabapentin [Neurontin] 400 mg PO TID 06/20/17 Metformin HCl [Glucophage] 1,000 mg PO BIDCM 06/20/17 Montelukast [Singulair] 10 mg PO DAILY 06/20/17 Carvedilol [Coreg (Beta Kareem)] 3.125 mg PO BID #90 tab 07/04/17 Furosemide [Lasix] 80 mg PO BID@1000,1800 #90 tab 07/04/17 fluticasone-vilanterol INHALATION QDAY 07/27/17 pantoprazole 20 mg tablet,delayed 20 mg PO QDAY 07/27/17 release prednisone 10 mg tablet 10 mg PO QDAY 07/27/17 losartan 25 mg tablet 25 mg PO QDAY 08/04/17 atorvastatin 40 mg tablet 40 mg PO DAILY 11/10/17 Fluticasone/Vilanterol [Breo 1 puff INHALATION DAILY 12/12/17 Ellipta 200-25 Mcg INH] Gabapentin [Neurontin] 700 mg PO QHS 12/12/17 Prednisone 10 mg PO DAILY 12/12/17 Surgical History: Surgical History (Last Updated 11/10/17 @ 12:18 by Mirna Patiño) History of cardiac catheterization (Chronic) Onset Date: 02/25/16 Z98.890 05/03/12 @ [place] [facility]; 02/21/2014 per [facility] @ [facility] (no stents needed); 02/23 16 per [facility] @ [facility] prior to PCI and GISSEL to proximal LAD; 06/28/17 after cardiac arrest, prior to GISSEL of mid LCX Presence of stent in coronary artery (Chronic) Onset Date: 06/29/17 Z95.5 PCI/stent LAD w/ 4.0 x 32 mm Promus 2012 ; PCI/GISSEL to Prox LAD w/ 4.0 x 20 mm Promus 02/25/16 for instent restenosis; PTCA/GISSEL to LCX 06/29/2017 Amputated great toe of left foot Z89.412 History of surgery on arm Z98.890 Surgery on left arm for infected muscle Surgical History: no surgical history Psychiatric History: No pertinent psych hx Smoking Status: Current every day smoker - *Family History Maternal Family History: Family History (Last Reviewed 11/10/17 @ 12:19 by Mirna Patiño) Mother Diabetes Heart disease History Items: No pertinent history, - - Unable to obtain as the patient is intubated and sedated Review of Systems Unable to obtain accurate/complete ROS d/t: Due to current intubation and mechanical ventilation status. Objective: The patient's most recent lab work, culture data and imaging studies have all been personally reviewed. - Physical Exam General: - - Intubated, sedated and mechanically ventilated. Currently tolerating assist control mode without issue. HEENT: Atraumatic, PERRLA, Normocephalic Oral: No Gingival or Mucosal Lesions/ Ulcerations, - - Endotracheal and OG tubes in place. Neck: Supple, No Nodes, Trachea Midline, - - Large neck circumference with redundant soft tissue. Lungs: Diminished, - - Coarse bronchial breath sounds bilaterally. Cardiovascular: Regular rate, Regular Rhythm, Normal S1, Normal S2, No murmurs Abdomen: Bowel Sounds Present, Soft, Non Tender, Obese Extremities: No clubbing, No cyanosis, - - Bilateral lower extremity pitting edema. Skin: - - Bilateral pretibial erythema Musculoskeletal: No Tenderness to Palpation of Joints or Extremities Lymphatic: No Cervical, Supraclavicular, or Inguinal Adenopathy Neurological: - - No focal deficits. Currently sedated with a RASS of -2. Vital Signs Temp Pulse Resp BP Pulse Ox 98.8 F 99 14 99/71 87 12/12/17 08:05 12/12/17 10:16 12/12/17 10:16 12/12/17 09:26 12/12/17 10:16 Oxygen Delivery Method Mechanical Ventilator Weight: 382 lb 3.094 oz Body Mass Index (BMI) 56.4 Laboratory Tests Past 24 Hrs 12/12/17 12/12/17 12/12/17 07:30 07:30 07:30 WBC 8.9 RBC 4.09 L Hgb 11.9 L Hct 40.5 MCV 99.0 H MCH 29.1 MCHC 29.4 L RDW 16.4 H RDW Differential 58.1 H Plt Count 256 MPV 9.6 Immature Gran % (Auto) 1.500 H Neut % (Auto) 75.1 H Lymph % (Auto) 13.1 L [place] % (Auto) 9.0 Eos % (Auto) 1.0 Baso % (Auto) 0.3 Absolute Neuts (auto) 6.7 Absolute Lymphs (auto) 1.17 Total Counted Not Reportable PT 13.8 INR 1.1 APTT 30.5 Specimen Type Sample Site pH Bicarbonate Actual POC Total CO2 Base Excess O2 Saturation O2 % ABG pCO2 ABG pO2 Salas Test Respiration Rate O2 Delivery Device Minute Volume Vent Mode Tidal Volume POC PEEP Blood Gas Notified Whom Blood Gas Notified Time Sodium 138 Potassium 4.5 Chloride 96 L Carbon Dioxide 41.0 H Anion Gap 1 L BUN 25 H Creatinine 0.82 Estim Creat Clear Calc 97.00 Est GFR (MDRD) Af Amer 124 Est GFR (MDRD) Non-Af 102 BUN/Creatinine Ratio 30.6 H Glucose 146 H Lactic Acid Calcium 7.9 L Total Bilirubin 0.40 AST 15 ALT 33 Alkaline Phosphatase 87 Troponin I 0.022 Total Protein 7.6 Albumin 3.1 L Globulin 4.5 H Albumin/Globulin Ratio 0.7 L Urine Color Urine Clarity Urine pH Ur Specific [place] Urine Protein Urine Glucose (UA) Urine Ketones Urine Occult Blood Urine Nitrite Urine Bilirubin Urine Urobilinogen Ur Leukocyte Esterase Urine RBC Urine WBC Ur Squamous Epith Cells Urine Bacteria Urine Mucus 12/12/17 12/12/17 12/12/17 07:30 08:03 09:05 WBC RBC Hgb Hct MCV MCH MCHC RDW RDW Differential Plt Count MPV Immature Gran % (Auto) Neut % (Auto) Lymph % (Auto) [place] % (Auto) Eos % (Auto) Baso % (Auto) Absolute Neuts (auto) Absolute Lymphs (auto) Total Counted PT INR APTT Specimen Type ART Sample Site R Radial pH 7.23 L Bicarbonate Actual 39.8 H POC Total CO2 43 Base Excess 12 H O2 Saturation 91 L O2 % 100 ABG pCO2 94.8 H* ABG pO2 77 Salas Test POS Respiration Rate 14 O2 Delivery Device Vent Minute Volume 5.00 Vent Mode A-C Tidal Volume 450 POC PEEP 8 Blood Gas Notified Whom ED Blood Gas Notified Time 802 Sodium Potassium Chloride Carbon Dioxide Anion Gap BUN Creatinine Estim Creat Clear Calc Est GFR (MDRD) Af Amer Est GFR (MDRD) Non-Af BUN/Creatinine Ratio Glucose Lactic Acid 1.2 Calcium Total Bilirubin AST ALT Alkaline Phosphatase Troponin I Total Protein Albumin Globulin Albumin/Globulin Ratio Urine Color Yellow Urine Clarity Sl. Cloudy Urine pH 6.0 Ur Specific [place] 1.020 Urine Protein 30 H Urine Glucose (UA) Normal Urine Ketones Negative Urine Occult Blood Negative Urine Nitrite Negative Urine Bilirubin Negative Urine Urobilinogen Normal Ur Leukocyte Esterase Negative Urine RBC 0 SEEN Urine WBC 0 SEEN Ur Squamous Epith Cells 0-5 SEEN Urine Bacteria RARE Urine Mucus 0 SEEN Clinical Impression(s) from Imaging Studies Brain CT 12/12/17 07:34 IMPRESSION: No CT evidence of acute intracranial hemorrhage. Electronically Signed: Katya Wright MD at 8:54 EST , Service support , Chest X-Ray 12/12/17 07:40 IMPRESSION: Cardiomegaly and mild pulmonary congestion. Electronically Signed: Katya Wright MD at 8:02 EST , Service support , Assessment/Plan RECOMMENDATIONS: 1. Continue current ventilator settings and obtain repeat arterial blood gas in 1 hour. 2. Start IV Lasix. 3. Hold beta-kareem due to decompensated heart failure status and tenuous hemodynamics. 4. Check BNP. 5. Check respiratory viral panel. 6. Start as needed aerosol treatments. 7. Start fentanyl for pain and minimize propofol utilization as tolerated. Maintain RASS of -1 to 1. 8. Maintain oxygen saturations 88-92%. 9. Hold Neurontin. 10. Continue appropriate ICU prophylaxis with subcutaneous heparin and Protonix. IMPRESSIONS: 1. Acute on chronic combined respiratory failure Likely secondary to decompensated heart failure in the setting of medical noncompliance, with superimposed bronchospastic airway disease and continued tobacco dependence likely contributing. Continue current supportive measures with invasive mechanical ventilatory support. Obtain repeat arterial blood gas in 1 hour. Tube feeds can be initiated from my perspective. We will plan to start the patient on scheduled IV diuretics. Wean FiO2 to maintain oxygen saturations 88-92%. Continue as needed bronchodilators. Will add fentanyl to the patient's sedation regimen in hopes of minimizing propofol utilization. 2. Acute on chronic systolic heart failure/history of ischemic cardiomyopathy The patient's weight is significantly elevated when compared to that documented from November. Plan to check BNP level. Scheduled diuretics will be started. Repeat surface echocardiogram is currently pending. Initial troponin was negative. Recommend holding beta-kareem given decompensated heart failure state and tenuous hemodynamics. 3. Diabetes mellitus Start Accu-Cheks and sliding scale insulin coverage. 4. Obstructive sleep apnea The patient has a history of outpatient noncompliance with the use of nocturnal Pap therapy. He only utilizes supplemental oxygen on a nightly basis. 5. Ongoing tobacco dependence/super morbid obesity/history of medical noncompliance/hypertension Complicates care, management, recovery and prognosis. Nicotine replacement therapy can be offered while admitted to the hospital. TIME: 40 minutes of critical care time, independent of procedures, was spent addressing the patient's acute on chronic combined respiratory failure, acute on chronic systolic heart failure, obstructive sleep apnea, review of all data and collaboration with the care team. ([id number]) Code Visit 9xxxx: [id number] Critical care first hour
[2017-12-12] MEDS: fentaNYL drip 100 ML 5 MCG IV (10:35)
--- NOTE | 2017-12-12 10:35 | ECHOCS_ITS ---
Reason For Study: CHF Procedure This was a 2D Doppler, Color Flow transthoracic echocardiogram. The study was technically limited. The study was technically difficult. Contrast injection was performed. Exam performed portable in ICU/CCU. Left Ventricle Normal LV size. Left ventricular systolic function is normal. The estimated ejection fraction is 60 %. No regional wall motion abnormalities noted. Right Ventricle The right ventricle is not well visualized. Atria The left atrium is not well visualized. Mitral Valve Mitral valve not well visualized. Tricuspid Valve The tricuspid valve is not well visualized. Aortic Valve The aortic valve is not well visualized. Great Vessels Normal aortic root. Pericardium/Pleural No pericardial effusion. Medication Diluted definity 5.0ml given slow IV push to enhance endocardial definition. MMode/2D Measurements & Calculations LVIDd: 5.4 cm IVSd: 1.0 cm Ao root diam: 3.8 cm LVIDs: 4.3 cm LVPWd: 1.0 cm FS: 20.0 % LAV(MOD-bp): 78.3 ml LA A4 area: 25.6 cm2 LA dimension(2D): 4.4 cm LAV(MOD-bp) Indexed: 28.8 ml/m2 LAV(MOD-sp2): 76.8 ml LAV(MOD-sp4): 72.1 ml Doppler Measurements & Calculations MV E max jaydon: 99.0 cm/sec Lat Peak E' Jaydon: 8.3 cm/sec Med Peak E' Jaydon: 8.5 cm/sec MV A max jaydon: 88.9 cm/sec E/E' lat: 12.0 E/E' med: 11.7 MV E/A: 1.1 Ao V2 max: 124.9 cm/sec LV V1 max: 86.5 cm/sec PA V2 max: 78.2 cm/sec Ao max P.2 mmHg LV V1 max P.0 mmHg Interpretation Summary Normal LV size. Left ventricular systolic function is normal. The estimated ejection fraction is 60 %. Contrast injection was performed. The study was technically limited. The study was technically difficult. Ordering Physician: Gina Elena Referring Physician: Tio Parker Performed By: Mayra Muller, SEDA, RVT
[2017-12-12] MEDS: Furosemide 40 MG/4 ML Vial IV ×2 (11:14→17:03)
[2017-12-12] MEDS: Pantoprazole Sodium 20 MG Tablet PO (11:20)
[2017-12-12 11:55] LABS: BNP,B-Type NATRIURETIC PEPTIDE 207.3 pg/mL (0-100)
[2017-12-12 12:25] LABS: Bedside Glucose 98 mg/dL (70-110)
[2017-12-12 13:26] LABS: Allen Test POS; Base Excess 18 mmol/L (-2 to +2); Bicarbonate 43.6 mmol/L (22-26); Blood Gas Specimen Type ART; FI02 70; Mode A-C; O2 Delivery Device Vent; PEEP 8; PO2 62 mmHG (75-100); RR 14; SITE L Radial; SO2 90 % (95-99); Time Given 1305; Total Carbon Dioxide 46 mmol/L; Vt 450; pCO2 73.2 mmHg (35-45); pH 7.38 (7.35-7.45)
--- NOTE | 2017-12-12 13:26 | NURSING ---
dr solitario informed of consult as per order of dr Elena
[2017-12-12] MEDS: Albuterol 2.5 MG/3 ML VIAL.NEB. INHALATION ×2 (13:38→18:35)
[2017-12-12] MEDS: Budesonide Respules 0.5 MG/2 ML AMPUL.NEB. INHALATION (13:38)
[2017-12-12 16:31] LABS: Bedside Glucose 109 mg/dL (70-110)
[2017-12-12] MEDS: Heparin Injection (Vial) 5,000 UNIT/ML VIAL 5000 UNIT SC ×2 (16:52→22:05)
--- NOTE | 2017-12-12 17:32 | PCM.CONS.C ---
Reason for Consult Date of Consultation: 12/12/17 Reason for Consultation: Respiratory failure History of Present Illness: JONES THOMAS, is a 57 M who presented to the emergency room today from the snf. Apparently he had been getting short of breath over the last 5 days or so. Approximately 3 days ago there was a suggestion to bring him to the emergency room but the patient apparently refused. Today they called the emergency medical squad to get him and on the way here he had a respiratory arrest and had to be bagged. He was intubated when he got to the emergency room and has been in the intensive care unit. Cardiac enzymes were minimally abnormal and cardiology was called to assist in management. As you know, he is a morbidly obese diabetic gentleman with a history of hypertension, hypercholesterolemia, coronary disease s/p stent to his proximal LAD in 2012 and GISSEL to LCX in June 2017, and ischemic cardiomyopathy. He also has a history of tobacco abuse with about half pack per day. He wears 2 or 2.5 liters of oxygen at night. Patient had presented to [facility] emergency department after being found unresponsive in June 2017. This was attributed to acute on chronic hypoxic and hypercapnic respiratory failure. He required mechanical endotracheal intubation and ventilation. He was also diagnosed and treated for healthcare associated pneumonia and acute on chronic systolic congestive heart failure. He underwent a left heart catheterization that resulted and PTCA/GISSEL with IVUS guided to LCX. There was noted to be retrograde dissection of LCx. His RCA showed known occlusion. He underwent an echocardiogram that showed ejection fraction of 50%. He was diuresed and discharged back to assisted living nursing facility, [facility]. The patient apparently denied chest, arm, jaw, or neck discomfort. Pt denies symptoms of CHF, palpitations, lightheadedness, dizziness, near syncopal or syncopal episodes. Currently he is intubated in the intensive care unit. He has also been sedated and thus minimally responsive Past Medical History Allergies/Adverse Reactions: Allergies adhesive tape Adverse Reaction (Verified 11/10/17 12:17) Rash Home Medications: Ambulatory Orders Medication Instructions Recorded Aspirin E.C. [Ecotrin] 81 mg PO DAILY@0800 12/27/15 Albuterol Aerosols [Ventolin 2.5 mg INHALATION TID 01/17/17 Aerosols] Meloxicam [Mobic] 15 mg PO DAILY 01/17/17 Polyethylene Glycol 3350 [Miralax] 17 gm PO DAILY 01/17/17 potassium chloride ER 20 mEq 20 meq PO DAILY 06/13/17 tablet,extended release Clopidogrel Bisulfate [Plavix] 75 mg PO DAILY 06/20/17 Gabapentin [Neurontin] 400 mg PO TID 06/20/17 Metformin HCl [Glucophage] 1,000 mg PO BIDCM 06/20/17 Montelukast [Singulair] 10 mg PO DAILY 06/20/17 Carvedilol [Coreg (Beta Kareem)] 3.125 mg PO BID #90 tab 07/04/17 Furosemide [Lasix] 80 mg PO BID@1000,1800 #90 tab 07/04/17 fluticasone-vilanterol INHALATION QDAY 07/27/17 pantoprazole 20 mg tablet,delayed 20 mg PO QDAY 07/27/17 release prednisone 10 mg tablet 10 mg PO QDAY 07/27/17 losartan 25 mg tablet 25 mg PO QDAY 08/04/17 atorvastatin 40 mg tablet 40 mg PO DAILY 11/10/17 Fluticasone/Vilanterol [Breo 1 puff INHALATION DAILY 12/12/17 Ellipta 200-25 Mcg INH] Gabapentin [Neurontin] 700 mg PO QHS 12/12/17 Prednisone 10 mg PO DAILY 12/12/17 Past Medical History (Chronic Problems): Chronic Problems (Last Updated 11/10/17 @ 12:14 by Brennon Maloney TEXTILE CONSERVATOR-C) Pure hypercholesterolemia (Chronic) History of anterolateral myocardial infarction (Chronic 05/03/12) History of cardiac arrest (Chronic 06/22/17) Hypersomnia (Chronic) EMILIA (obstructive sleep apnea) (Chronic) History of cardiac catheterization (Chronic 02/25/16) 05/03/12 @ [facility] per [facility]; 02/21/2014 per [facility] @ [facility] (no stents needed); 02/23 16 per [facility]N @ [facility] prior to PCI and GISSEL to proximal LAD; 06/28/17 after cardiac arrest, prior to GISSEL of mid LCX Nicotine dependence, cigarettes, uncomplicated (Chronic) Chronic systolic congestive heart failure (Chronic) Presence of stent in coronary artery (Chronic 06/29/17) PCI/stent LAD w/ 4.0 x 32 mm Promus 2012 ; PCI/GISSEL to Prox LAD w/ 4.0 x 20 mm Promus 02/25/16 for instent restenosis; PTCA/GISSEL to LCX 06/29/2017 Atherosclerotic heart disease of [place] coronary artery without angina pectoris (Chronic) PCI/stent LAD w/ 4.0 x 32 mm Promus 2012; PCI/GISSEL to Prox LAD w/ 4.0 x 20 mm Promus 02/25/16 for instent restenosis; PTCA/GISSEL to LCx in June 2017; Asthma-COPD overlap syndrome (Chronic) FEV1 46% (01/11/2017) DM2 (diabetes mellitus, type 2) (Chronic) NSTEMI (non-ST elevated myocardial infarction) (Chronic 12/21/16) 02/20/16 Venous stasis of lower extremity (Chronic) Ischemic cardiomyopathy (Chronic) EF of 35% on Cath in February of 2014; 50% per echo 06/21/2017 Surgical History: no surgical history Psychiatric History: No pertinent psych hx - *Family History Maternal Family History: Family History (Last Reviewed 11/10/17 @ 12:19 by Mirna Patiño) Mother Diabetes Heart disease History Items: No pertinent history, - - Unable to obtain as the patient is intubated and sedated Smoking Status: Current every day smoker Alcohol: None Drugs: None Review of Systems - Review of Systems General: Reports: Fatigue, Malaise, Weakness. Denies: Fever, Night Sweats HEENT: Denies: Vision Change Cardiovascular: Reports: Shortness of Breath, Shortness of Breath at Rest, Shortness of Breath with Exertion. Denies: Chest Discomfort, Orthopnea, PND, Peripheral Edema, Palpitations, Lightheadedness, Dizziness, Near Syncope, Syncope Respiratory: Denies: Cough, Sputum Production, Hemoptysis Gastrointestinal: Denies: Hematemesis, Hematochezia, Melena Genitourinary: Denies: Dysuria, Hematuria Muscoloskeletal: Denies: Myalgias Skin: Denies: Rash Neurological: Reports: Decreased Coordination. Denies: Dizziness Endocrine: Denies: Heat Intolerance Hematologic/ Lymphatic: Denies: Anemia Subjectve: Obese man intubated minimally responsive Objective: Vital Signs Temp Pulse Resp BP Pulse Ox 97.7 F L 92 14 83/41 L 93 12/12/17 10:51 12/12/17 13:45 12/12/17 13:45 12/12/17 10:51 12/12/17 13:45 Oxygen Flow Rate (L/min) 80 Oxygen Delivery Method Mechanical Ventilator Weight: 375 lb 7.155 oz Body Mass Index (BMI) 55.5 Intake and Output for Last 24 Hours 12/11/17 12/11/17 12/12/17 00:59 23:59 23:59 Intake Total 50 / 50 Balance 50 / 50 General: Awake, Alert, Oriented x 3, Obese HEENT: PERRL, EOMI, Sclera Non Icteric Neck: Supple, Good ROM, No Lymph Node Enlargement Lungs: Clear to auscultation Cardiovascular: Regular Rhythm, Normal S1, Normal S2, No Murmurs, No Rubs, No Gallops Vascular: No Carotid Bruits, Normal Femoral Pulses, Normal Radial Pulses, Normal Dorsalis Pedal Pulse, Normal Posterior Tibial Pulses Abdomen: Bowel Sounds Present, Soft, Non Tender, No HSM, No Organomegaly Extremities: No Cyanosis, No Clubbing, Bilateral Edema +2 Neurological: No Focal Motor or Sensory Deficit 12/12/17 07:30: WBC 8.9, RBC 4.09 L, Hgb 11.9 L, Hct 40.5, MCV 99.0 H, MCH 29.1, MCHC 29.4 L, RDW 16.4 H, RDW Differential 58.1 H, Plt Count 256, MPV 9.6, Immature Gran % (Auto) 1.500 H, Neut % (Auto) 75.1 H, Lymph % (Auto) 13.1 L, [place] % (Auto) 9.0, Eos % (Auto) 1.0, Baso % (Auto) 0.3, Absolute Neuts (auto) 6.7, Total Counted Not Reportable 12/12/17 07:30: PT 13.8, INR 1.1, APTT 30.5 12/12/17 07:30: Sodium 138, Potassium 4.5, Chloride 96 L, Carbon Dioxide 41.0 H, Anion Gap 1 L, BUN 25 H, Creatinine 0.82, Est GFR (MDRD) Af Amer 124, Est GFR (MDRD) Non-Af 102, BUN/Creatinine Ratio 30.6 H, Glucose 146 H, Calcium 7.9 L, Total Bilirubin 0.40, Troponin I 0.022 12/12/17 07:30: Lactic Acid 1.2 12/12/17 07:30: B-Natriuretic Peptide 207.3 H 12/12/17 08:03: pH 7.23 L, Bicarbonate Actual 39.8 H, POC Total CO2 43, Base Excess 12 H, O2 Saturation 91 L, ABG pCO2 94.8 H*, ABG pO2 77, Salas Test POS 12/12/17 09:05: Urine Color Yellow, Urine Clarity Sl. Cloudy, Urine pH 6.0, Ur Specific [place] 1.020, Urine Protein 30 H, Urine Glucose (UA) Normal, Urine Ketones Negative, Urine Occult Blood Negative, Urine Nitrite Negative, Urine Bilirubin Negative, Urine Urobilinogen Normal, Ur Leukocyte Esterase Negative, Urine RBC 0 SEEN, Urine WBC 0 SEEN 12/12/17 12:30: Troponin I 0.035 12/12/17 13:11: pH 7.38, Bicarbonate Actual 43.6 H, POC Total CO2 46, Base Excess 18 H, O2 Saturation 90 L, ABG pCO2 73.2 H*, ABG pO2 62 L, Salas Test POS 12/12/17 16:10: Troponin I 0.032 Rhythm: EKG: Sinus tachycardia Assessment/Plan 1. Atherosclerosis of [place] coronary artery of [place] heart without angina pectoris I25.10 PCI/stent LAD w/ 4.0 x 32 mm Promus 2012; PCI/GISSEL to Prox LAD w/ 4.0 x 20 mm Promus 02/25/16 for instent restenosis; PTCA/GISSEL to LCx in June 2017; The patient has known history of the prior. It however does not appear that the current episode is secondary to an acute coronary ischemic event. There is mild troponin elevation but this is likely secondary to demand ischemia. In the absence of significant EKG changes and only mild troponin elevation I do not think there is a reason to pursue further invasive workup at this time. Recommendation would be to continue supportive therapy. 2. Acute on chronic respiratory failure The exact precipitating events are not entirely clear at this time. His most recent echocardiogram had demonstrated an ejection fraction of approximately 60%. No obvious wall motion abnormality was noted but this is a suboptimal study. Will continue current medical therapy as per the pulmonary service. Diuresis should also be instituted 3. Hypertension His blood pressure medications will be adjusted as appropriate 4 Hyperlipidemia Continue aggressive medical therapy. Thank you for allowing me to participate in the care of your patient. Please don't hesitate to call if any issues arise
--- NOTE | 2017-12-12 17:36 | CON.PCM_ITS ---
Reason for Consult Date of Consultation: 12/12/17 Reason for Consultation: Respiratory failure History of Present Illness: JONES THOMAS, is a 57 M who presented to the emergency room today from the intermediate. Apparently he had been getting short of breath over the last 5 days or so. Approximately 3 days ago there was a suggestion to bring him to the emergency room but the patient apparently refused. Today they called the emergency medical squad to get him and on the way here he had a respiratory arrest and had to be bagged. He was intubated when he got to the emergency room and has been in the intensive care unit. Cardiac enzymes were minimally abnormal and cardiology was called to assist in management. As you know, he is a morbidly obese diabetic gentleman with a history of hypertension, hypercholesterolemia, coronary disease s/p stent to his proximal LAD in 2012 and GISSEL to LCX in June 2017, and ischemic cardiomyopathy. He also has a history of tobacco abuse with about half pack per day. He wears 2 or 2.5 liters of oxygen at night. Patient had presented to [facility] emergency department after being found unresponsive in June 2017. This was attributed to acute on chronic hypoxic and hypercapnic respiratory failure. He required mechanical endot michael intubation and ventilation. He was also diagnosed and treated for healthcare associated pneumonia and acute on chronic systolic congestive heart failure. He underwent a left heart catheterization that resulted and PTCA/GISSEL with IVUS guided to LCX. There was noted to be retrograde dissection of LCx. His RCA showed known occlusion. He underwent an echocardiogram that showed ejection fraction of 50%. He was diuresed and discharged back to assisted living nursing facility, [facility]. The patient apparently denied chest, arm, jaw, or neck discomfort. Pt denies symptoms of CHF, palpitations, lightheadedness, dizziness, near syncopal or syncopal episodes. Currently he is intubated in the intensive care unit. He has also been sedated and thus minimally responsive Past Medical History Allergies/Adverse Reactions: Allergies adhesive tape Adverse Reaction (Verified 11/10/17 12:17) Rash Home Medications: Ambulatory Orders Medication Instructions Recorded Aspirin E.C. [Ecotrin] 81 mg PO DAILY@0800 12/27/15 Albuterol Aerosols [Ventolin 2.5 mg INHALATION TID 01/17/17 Aerosols] Meloxicam [Mobic] 15 mg PO DAILY 01/17/17 Polyethylene Glycol 3350 [Miralax] 17 gm PO DAILY 01/17/17 potassium chloride ER 20 mEq 20 meq PO DAILY 06/13/17 tablet,extended release Clopidogrel Bisulfate [Plavix] 75 mg PO DAILY 06/20/17 Gabapentin [Neurontin] 400 mg PO TID 06/20/17 Metformin HCl [Glucophage] 1,000 mg PO BIDCM 06/20/17 Montelukast [Singulair] 10 mg PO DAILY 06/20/17 Carvedilol [Coreg (Beta Kareem)] 3.125 mg PO BID #90 tab 07/04/17 Furosemide [Lasix] 80 mg PO BID@1000,1800 #90 tab 07/04/17 fluticasone-vilanterol INHALATION QDAY 07/27/17 pantoprazole 20 mg tablet,delayed 20 mg PO QDAY 07/27/17 release prednisone 10 mg tablet 10 mg PO QDAY 07/27/17 losartan 25 mg tablet 25 mg PO QDAY 08/04/17 atorvastatin 40 mg tablet 40 mg PO DAILY 11/10/17 Fluticasone/Vilanterol [Breo 1 puff INHALATION DAILY 12/12/17 Ellipta 200-25 Mcg INH] Gabapentin [Neurontin] 700 mg PO QHS 12/12/17 Prednisone 10 mg PO DAILY 12/12/17 Past Medical History (Chronic Problems): Chronic Problems (Last Updated 11/10/17 @ 12:14 by Brennon Maloney VESSEL ORDINARY SEAMAN-C) Pure hypercholesterolemia (Chronic) History of anterolateral myocardial infarction (Chronic 05/03/12) History of cardiac arrest (Chronic 06/22/17) Hypersomnia (Chronic) EMILIA (obstructive sleep apnea) (Chronic) History of cardiac catheterization (Chronic 02/25/16) 05/03/12 @ [facility] per [facility]; 02/21/2014 per [facility]N @ [facility] (no stents needed); 02/23 16 per DJN @ [facility] prior to PCI and GISSEL to proximal LAD; 06/28/17 after cardiac arrest, prior to GISSEL of mid LCX Nicotine dependence, cigarettes, uncomplicated (Chronic) Chronic systolic congestive heart failure (Chronic) Presence of stent in coronary artery (Chronic 06/29/17) PCI/stent LAD w/ 4.0 x 32 mm Promus 2012 ; PCI/GISSEL to Prox LAD w/ 4.0 x 20 mm Promus 02/25/16 for instent restenosis; PTCA/GISSEL to LCX 06/29/2017 Atherosclerotic heart disease of [place] coronary artery without angina pectoris (Chronic) PCI/stent LAD w/ 4.0 x 32 mm Promus 2012; PCI/GISSEL to Prox LAD w/ 4.0 x 20 mm Promus 02/25/16 for instent restenosis; PTCA/GISSEL to LCx in June 2017; Asthma-COPD overlap syndrome (Chronic) FEV1 46% (01/11/2017) DM2 (diabetes mellitus, type 2) (Chronic) NSTEMI (non-ST elevated myocardial infarction) (Chronic 12/21/16) 02/20/16 Venous stasis of lower extremity (Chronic) Ischemic cardiomyopathy (Chronic) EF of 35% on Cath in February of 2014; 50% per echo 06/21/2017 Surgical History: no surgical history Psychiatric History: No pertinent psych hx - *Family History Maternal Family History: Family History (Last Reviewed 11/10/17 @ 12:19 by Mirna Patiño) Mother Diabetes Heart disease History Items: No pertinent history, - - Unable to obtain as the patient is intubated and sedated Smoking Status: Current every day smoker Alcohol: None Drugs: None Review of Systems - Review of Systems General: Reports: Fatigue, Malaise, Weakness. Denies: Fever, Night Sweats HEENT: Denies: Vision Change Cardiovascular: Reports: Shortness of Breath, Shortness of Breath at Rest, Shortness of Breath with Exertion. Denies: Chest Discomfort, Orthopnea, PND, Peripheral Edema, Palpitations, Lightheadedness, Dizziness, Near Syncope, Syncope Respiratory: Denies: Cough, Sputum Production, Hemoptysis Gastrointestinal: Denies: Hematemesis, Hematochezia, Melena Genitourinary: Denies: Dysuria, Hematuria Muscoloskeletal: Denies: Myalgias Skin: Denies: Rash Neurological: Reports: Decreased Coordination. Denies: Dizziness Endocrine: Denies: Heat Intolerance Hematologic/ Lymphatic: Denies: Anemia Subjectve: Obese man intubated minimally responsive Objective: Vital Signs Temp Pulse Resp BP Pulse Ox 97.7 F L 92 14 83/41 L 93 12/12/17 10:51 12/12/17 13:45 12/12/17 13:45 12/12/17 10:51 12/12/17 13:45 Oxygen Flow Rate (L/min) 80 Oxygen Delivery Method Mechanical Ventilator Weight: 375 lb 7.155 oz Body Mass Index (BMI) 55.5 Intake and Output for Last 24 Hours 12/11/17 12/11/17 12/12/17 00:59 23:59 23:59 Intake Total 50 / 50 Balance 50 / 50 General: Awake, Alert, Oriented x 3, Obese HEENT: PERRL, EOMI, Sclera Non Icteric Neck: Supple, Good ROM, No Lymph Node Enlargement Lungs: Clear to auscultation Cardiovascular: Regular Rhythm, Normal S1, Normal S2, No Murmurs, No Rubs, No Gallops Vascular: No Carotid Bruits, Normal Femoral Pulses, Normal Radial Pulses, Normal Dorsalis Pedal Pulse, Normal Posterior Tibial Pulses Abdomen: Bowel Sounds Present, Soft, Non Tender, No HSM, No Organomegaly Extremities: No Cyanosis, No Clubbing, Bilateral Edema +2 Neurological: No Focal Motor or Sensory Deficit 12/12/17 07:30: WBC 8.9, RBC 4.09 L, Hgb 11.9 L, Hct 40.5, MCV 99.0 H, MCH 29.1, MCHC 29.4 L, RDW 16.4 H, RDW Differential 58.1 H, Plt Count 256, MPV 9.6, Immat ure Gran % (Auto) 1.500 H, Neut % (Auto) 75.1 H, Lymph % (Auto) 13.1 L, [place] % (Auto) 9.0, Eos % (Auto) 1.0, Baso % (Auto) 0.3, Absolute Neuts (auto) 6.7, Total Counted Not Reportable 12/12/17 07:30: PT 13.8, INR 1.1, APTT 30.5 12/12/17 07:30: Sodium 138, Potassium 4.5, Chloride 96 L, Carbon Dioxide 41.0 H, Anion Gap 1 L, BUN 25 H, Creatinine 0.82, Est GFR (MDRD) Af Amer 124, Est GFR ( MDRD) Non-Af 102, BUN/Creatinine Ratio 30.6 H, Glucose 146 H, Calcium 7.9 L, Total Bilirubin 0.40, Troponin I 0.022 12/12/17 07:30: Lactic Acid 1.2 12/12/17 07:30: B-Natriuretic Peptide 207.3 H 12/12/17 08:03: pH 7.23 L, Bicarbonate Actual 39.8 H, POC Total CO2 43, Base Excess 12 H, O2 Saturation 91 L, ABG pCO2 94.8 H*, ABG pO2 77, Salas Test POS 12/12/17 09:05: Urine Color Yellow, Urine Clarity Sl. Cloudy, Urine pH 6.0, Ur Specific [place] 1.020, Urine Protein 30 H, Urine Glucose (UA) Normal, Urine Ketones Negative, Urine Occult Blood Negative, Urine Nitrite Negative, Urine Bilirubin Negative, Urine Urobilinogen Normal, Ur Leukocyte Esterase Negative, Urine RBC 0 SEEN, Urine WBC 0 SEEN 12/12/17 12:30: Troponin I 0.035 12/12/17 13:11: pH 7.38, Bicarbonate Actual 43.6 H, POC Total CO2 46, Base Excess 18 H, O2 Saturation 90 L, ABG pCO2 73.2 H*, ABG pO2 62 L, Salas Test POS 12/12/17 16:10: Troponin I 0.032 Rhythm: EKG: Sinus tachycardia Assessment/Plan 1. Atherosclerosis of [place] coronary artery of [place] heart without angina pectoris I25.10 PCI/stent LAD w/ 4.0 x 32 mm Promus 2012; PCI/GISSEL to Prox LAD w/ 4.0 x 20 mm Promus 02/25/16 for instent restenosis; PTCA/GISSEL to LCx in June 2017; The patient has known history of the prior. It however does not appear that the current episode is secondary to an acute coronary ischemic event. There is mild troponin elevation but this is likely secondary to demand ischemia. In the absence of significant EKG changes and only mild troponin elevation I do not think there is a reason to pursue further invasive workup at this time. Recommendation would be to continue supportive therapy. 2. Acute on chronic respiratory failure * The exact precipitating events are not entirely clear at this time. His most recent echocardiogram had demonstrated an ejection fraction of approximately 60%. No obvious wall motion abnormality was noted but this is a suboptimal study. * Will continue current medical therapy as per the pulmonary service. * Diuresis should also be instituted 3. Hypertension * His blood pressure medications will be adjusted as appropriate * 4 Hyperlipidemia * Continue aggressive medical therapy. Thank you for allowing me to participate in the care of your patient. Please don't hesitate to call if any issues arise
--- NOTE | 2017-12-12 20:16 | PCM.RX.CS ---
Consult Pharmacy has been consulted to manage selected antiobiotic: Vancomycin Type of Consult: New start Labs: Sodium 138 mmol/L (136-145) 12/12/17 07:30 Potassium 4.5 mmol/L (3.5-5.1) 12/12/17 07:30 Chloride 96 mmol/L (98-107) L 12/12/17 07:30 Carbon Dioxide 41.0 mmol/L (21.0-32.0) H 12/12/17 07:30 Anion Gap 1 (5-15) L 12/12/17 07:30 BUN 25 mg/dL (7-18) H 12/12/17 07:30 Creatinine 0.82 mg/dL (0.70-1.30) 12/12/17 07:30 Est GFR (MDRD) Af Amer 124 mL/min (>60) 12/12/17 07:30 Est GFR (MDRD) Non-Af 102 mL/min (>60) 12/12/17 07:30 BUN/Creatinine Ratio 30.6 RATIO (10-20) H 12/12/17 07:30 Glucose 146 mg/dL (74-106) H 12/12/17 07:30 Microbiology: Microbiology 12/12/17 11:35 Mucosa - Nasopharyngeal Respiratory Panel (PCR) - Final 12/12/17 07:45 Sputum, Tracheal Aspirate Gram Stain - Final Weight used for dosin lb 12.573 oz Estimated Creatinine Clearance: 97 Goal Trough: 10-15 mcg/mL Pharmacy Plan for Drug Dosing: Pharmacy Service will continue to monitor and adjust dosing as required. Loading dose of 2000mg scheduled for 12/12 at 2200 Maintenance dose of 1500mg q12h Trough will done before 4th dose on 12/14 at 1000 Pharmacy will dose to maintain goal trough of 10-15
[2017-12-12] MEDS: 0.9% NaCl IVPB Med Flush (250 mL) 15 ML IV (20:29)
[2017-12-12] MEDS: Piperacil/Tazobactam 3.375 GM/50 ML ML IV (20:29)
[2017-12-12] MEDS: 0.9% NaCl Peripheral Flush Adult/Peds IV (20:29)
[2017-12-12] MEDS: Acetaminophen 650 MG/20 ML UDC NG (20:33)
[2017-12-12] MEDS: Chlorhexidine 15 ML PO (22:04)
[2017-12-12] MEDS: Atorvastatin Calcium 40 MG Tablet PO (22:05)
[2017-12-13] VITALS (36 sets, daily range): BP systolic 88–118; BP diastolic 46–65; PULSE 79–98; RESP 14–20; TEMP 37.5–37.8; O2SAT 86–98
[2017-12-13 00:01] LABS: Bedside Glucose 126 mg/dL (70-110)
[2017-12-13] MEDS: CHLORHEXIDINE GLUC 2% CLOTH 1 EACH TOWELETTE TOPICAL (00:48)
[2017-12-13] MEDS: Propofol 10MG/Ml 1,000 MG/100 ML Bottle 5.201 MG CONT INF (00:54)
[2017-12-13] MEDS: fentaNYL drip 100 ML 5 MCG IV ×2 (02:43→16:32)
[2017-12-13 04:47] LABS: Absolute Lymphocyte Count 1.19 X10^3/ul (0.83-4.51); Anion Gap 6 (5-15); BUN 22 mg/dL (7-18); BUN/Creat Ratio 28.7 RATIO (10-20); Basophil# 0.02 X10^3/uL; Basophil% 0.2 % (0-1); Calcium,Total 8.1 mg/dL (8.5-10.1); Chloride 98 mmol/L (98-107); Creatinine, Serum 0.77 mg/dL (0.70-1.30); EST Glomerular Filtration Rate 110 mL/min (>60); Eosinophil# 0.12 X10^3/uL; Eosinophils% 1.3 % (0-5); Est Glom Filt Rate - Afr Amer 133 mL/min (>60); Estimated Creatinine Clearance 99.94 ml/min; Glucose 118 mg/dL (74-106); Hematocrit 34.8 % (40-54); Lymphocyte # 1.19 X10^3/ul (4.0); Lymphocyte % 12.9 % (19-41); Mean Corp Hgb Conc 28.7 g/gl (32-36); Mean Corpuscular Hgb 27.5 pg (27.0-32.0); Mean Corpuscular Volume 95.9 fL (80-94); Monocyte# 0.88 X10^3/uL; Monocyte% 9.5 % (0-10); Neutrophil # 7.01 X10^3/uL (2.7-7.7); Neutrophil % 75.8 % (47-70); Platelet Count 208 K/mm3 (150-450); RBC Distribution Width SD 55.5 fl (35.1-43.9); Red Blood Count 3.63 M/mm3 (4.6-6.2); Sodium Level 143 mmol/L (136-145); White Blood Count 9.3 K/mm3 (4.4-11.0)
[2017-12-13 04:56] LABS: Differential Indicated SCAN CRITERIA MET; POSITIVE COUNT NO; POSITIVE DIFFERENTIAL NO; POSITIVE MORPHOLOGY YES
[2017-12-13 05:20] LABS: Anisocytosis RARE; Macrocytosis RARE; Platelet Estimate ADEQUATE (ADEQ)
[2017-12-13] MEDS: 0.9% NaCl Peripheral Flush Adult/Peds IV (06:03)
[2017-12-13] MEDS: Piperacil/Tazobactam 3.375 GM/50 ML ML IV ×3 (06:03→22:46)
[2017-12-13] MEDS: Heparin Injection (Vial) 5,000 UNIT/ML VIAL 5000 UNIT SC ×3 (06:10→22:42)
[2017-12-13 06:26] LABS: Bedside Glucose 142 mg/dL (70-110)
[2017-12-13] MEDS: Budesonide Respules 0.5 MG/2 ML AMPUL.NEB. INHALATION ×2 (06:45→18:26)
[2017-12-13] MEDS: Albuterol 2.5 MG/3 ML VIAL.NEB. INHALATION ×3 (06:45→18:26)
--- NOTE | 2017-12-13 06:45 | PCM.PN.INT ---
Subjective: The patient was seen and examined at the bedside this morning. Events from the last 24 hours have been reviewed. The patient was noted to be febrile overnight with a T-max of 38.9 ?C. Therefore, the overnight hospitalist ordered vancomycin and Zosyn to be initiated. Sputum, blood and urine cultures are all currently pending. He was diuresed 1.4 L in the last 24 hours. Objective: The patient's most recent lab work, culture data and imaging studies have all been personally reviewed. Respiratory viral panel was negative. Blood, urine and sputum cultures are all pending. Surface echocardiogram revealed normal LV size and function with an ejection fraction of 60%. General: - - Remains intubated, sedated and mechanically ventilated. HEENT: Atraumatic, PERRLA, Normocephalic Oral: No Gingival or Mucosal Lesions/ Ulcerations, - - Endotracheal and OG tubes remain in place. Neck: Supple, No Nodes, Trachea Midline, - - Large neck circumference with redundant soft tissue. Lungs: No rhonchi, No wheeze, No rales, Diminished Cardiovascular: Regular rate, Regular Rhythm, Normal S1, Normal S2, No murmurs Abdomen: Bowel Sounds Present, Soft, Non Tender, Obese Extremities: No clubbing, No cyanosis, Diminished Peripheral Pulses, Edema Skin: - - Bilateral pretibial erythema, unchanged from previous. Musculoskeletal: No Muscle Wasting Lymphatic: No Cervical, Supraclavicular, or Inguinal Adenopathy Neurological: - - No focal neurological deficits. Currently sedated with a RASS of -2. Vital Signs Temp Pulse Resp BP Pulse Ox 99.5 F H 91 14 95/57 L 97 12/13/17 06:00 12/13/17 06:00 12/13/17 06:00 12/13/17 06:00 12/13/17 06:00 Oxygen Flow Rate (L/min) 70 Oxygen Delivery Method Mechanical Ventilator Weight: 361 lb 15.984 oz Body Mass Index (BMI) 55.5 Intake and Output for Last 24 Hours 12/11/17 12/12/17 12/13/17 23:59 23:59 23:59 Intake Total 1084 / 1084 414 / 414 Output Total 2550 / 2550 300 / 300 Balance -1466 / -1466 114 / 114 Labs (Last 48 Hours) 12/12/17 12/12/17 12/12/17 07:30 07:30 07:30 WBC 8.9 RBC 4.09 L Hgb 11.9 L Hct 40.5 MCV 99.0 H MCH 29.1 MCHC 29.4 L RDW 16.4 H RDW Differential 58.1 H Plt Count 256 MPV 9.6 Immature Gran % (Auto) 1.500 H Neut % (Auto) 75.1 H Lymph % (Auto) 13.1 L Bates % (Auto) 9.0 Eos % (Auto) 1.0 Baso % (Auto) 0.3 Absolute Neuts (auto) 6.7 Absolute Lymphs (auto) 1.17 Total Counted Not Reportable Platelet Estimate Anisocytosis Macrocytosis PT 13.8 INR 1.1 APTT 30.5 Specimen Type Sample Site pH Bicarbonate Actual POC Total CO2 Base Excess O2 Saturation O2 % ABG pCO2 ABG pO2 Salas Test Respiration Rate O2 Delivery Device Minute Volume Vent Mode Tidal Volume POC PEEP Blood Gas Notified Whom Blood Gas Notified Time Sodium 138 Potassium 4.5 Chloride 96 L Carbon Dioxide 41.0 H Anion Gap 1 L BUN 25 H Creatinine 0.82 Estim Creat Clear Calc 97.00 Est GFR (MDRD) Af Amer 124 Est GFR (MDRD) Non-Af 102 BUN/Creatinine Ratio 30.6 H Glucose 146 H Lactic Acid Calcium 7.9 L Total Bilirubin 0.40 AST 15 ALT 33 Alkaline Phosphatase 87 Troponin I 0.022 B-Natriuretic Peptide Total Protein 7.6 Albumin 3.1 L Globulin 4.5 H Albumin/Globulin Ratio 0.7 L Urine Color Urine Clarity Urine pH Ur Specific Graham Urine Protein Urine Glucose (UA) Urine Ketones Urine Occult Blood Urine Nitrite Urine Bilirubin Urine Urobilinogen Ur Leukocyte Esterase Urine RBC Urine WBC Ur Squamous Epith Cells Urine Bacteria Urine Mucus POC Glucose 12/12/17 12/12/17 12/12/17 07:30 07:30 08:03 WBC RBC Hgb Hct MCV MCH MCHC RDW RDW Differential Plt Count MPV Immature Gran % (Auto) Neut % (Auto) Lymph % (Auto) Bates % (Auto) Eos % (Auto) Baso % (Auto) Absolute Neuts (auto) Absolute Lymphs (auto) Total Counted Platelet Estimate Anisocytosis Macrocytosis PT INR APTT Specimen Type ART Sample Site R Radial pH 7.23 L Bicarbonate Actual 39.8 H POC Total CO2 43 Base Excess 12 H O2 Saturation 91 L O2 % 100 ABG pCO2 94.8 H* ABG pO2 77 Salas Test POS Respiration Rate 14 O2 Delivery Device Vent Minute Volume 5.00 Vent Mode A-C Tidal Volume 450 POC PEEP 8 Blood Gas Notified Whom ED Blood Gas Notified Time 802 Sodium Potassium Chloride Carbon Dioxide Anion Gap BUN Creatinine Estim Creat Clear Calc Est GFR (MDRD) Af Amer Est GFR (MDRD) Non-Af BUN/Creatinine Ratio Glucose Lactic Acid 1.2 Calcium Total Bilirubin AST ALT Alkaline Phosphatase Troponin I B-Natriuretic Peptide 207.3 H Total Protein Albumin Globulin Albumin/Globulin Ratio Urine Color Urine Clarity Urine pH Ur Specific Graham Urine Protein Urine Glucose (UA) Urine Ketones Urine Occult Blood Urine Nitrite Urine Bilirubin Urine Urobilinogen Ur Leukocyte Esterase Urine RBC Urine WBC Ur Squamous Epith Cells Urine Bacteria Urine Mucus POC Glucose 12/12/17 12/12/17 12/12/17 09:05 12:21 12:30 WBC RBC Hgb Hct MCV MCH MCHC RDW RDW Differential Plt Count MPV Immature Gran % (Auto) Neut % (Auto) Lymph % (Auto) Bates % (Auto) Eos % (Auto) Baso % (Auto) Absolute Neuts (auto) Absolute Lymphs (auto) Total Counted Platelet Estimate Anisocytosis Macrocytosis PT INR APTT Specimen Type Sample Site pH Bicarbonate Actual POC Total CO2 Base Excess O2 Saturation O2 % ABG pCO2 ABG pO2 Salas Test Respiration Rate O2 Delivery Device Minute Volume Vent Mode Tidal Volume POC PEEP Blood Gas Notified Whom Blood Gas Notified Time Sodium Potassium Chloride Carbon Dioxide Anion Gap BUN Creatinine Estim Creat Clear Calc Est GFR (MDRD) Af Amer Est GFR (MDRD) Non-Af BUN/Creatinine Ratio Glucose Lactic Acid Calcium Total Bilirubin AST ALT Alkaline Phosphatase Troponin I 0.035 B-Natriuretic Peptide Total Protein Albumin Globulin Albumin/Globulin Ratio Urine Color Yellow Urine Clarity Sl. Cloudy Urine pH 6.0 Ur Specific Graham 1.020 Urine Protein 30 H Urine Glucose (UA) Normal Urine Ketones Negative Urine Occult Blood Negative Urine Nitrite Negative Urine Bilirubin Negative Urine Urobilinogen Normal Ur Leukocyte Esterase Negative Urine RBC 0 SEEN Urine WBC 0 SEEN Ur Squamous Epith Cells 0-5 SEEN Urine Bacteria RARE Urine Mucus 0 SEEN POC Glucose 98 12/12/17 12/12/17 12/12/17 13:11 16:10 16:27 WBC RBC Hgb Hct MCV MCH MCHC RDW RDW Differential Plt Count MPV Immature Gran % (Auto) Neut % (Auto) Lymph % (Auto) Bates % (Auto) Eos % (Auto) Baso % (Auto) Absolute Neuts (auto) Absolute Lymphs (auto) Total Counted Platelet Estimate Anisocytosis Macrocytosis PT INR APTT Specimen Type ART Sample Site L Radial pH 7.38 Bicarbonate Actual 43.6 H POC Total CO2 46 Base Excess 18 H O2 Saturation 90 L O2 % 70 ABG pCO2 73.2 H* ABG pO2 62 L Salas Test POS Respiration Rate 14 O2 Delivery Device Vent Minute Volume 7.00 Vent Mode A-C Tidal Volume 450 POC PEEP 8 Blood Gas Notified Whom ICU MD Blood Gas Notified Time 1305 Sodium Potassium Chloride Carbon Dioxide Anion Gap BUN Creatinine Estim Creat Clear Calc Est GFR (MDRD) Af Amer Est GFR (MDRD) Non-Af BUN/Creatinine Ratio Glucose Lactic Acid Calcium Total Bilirubin AST ALT Alkaline Phosphatase Troponin I 0.032 B-Natriuretic Peptide Total Protein Albumin Globulin Albumin/Globulin Ratio Urine Color Urine Clarity Urine pH Ur Specific Graham Urine Protein Urine Glucose (UA) Urine Ketones Urine Occult Blood Urine Nitrite Urine Bilirubin Urine Urobilinogen Ur Leukocyte Esterase Urine RBC Urine WBC Ur Squamous Epith Cells Urine Bacteria Urine Mucus POC Glucose 109 12/12/17 12/13/17 12/13/17 23:56 04:00 04:00 WBC 9.3 RBC 3.63 L Hgb 10.0 L Hct 34.8 L MCV 95.9 H MCH 27.5 MCHC 28.7 L RDW 16.0 H RDW Differential 55.5 H Plt Count 208 MPV 10.0 Immature Gran % (Auto) 0.300 Neut % (Auto) 75.8 H Lymph % (Auto) 12.9 L Bates % (Auto) 9.5 Eos % (Auto) 1.3 Baso % (Auto) 0.2 Absolute Neuts (auto) 7.0 Absolute Lymphs (auto) 1.19 Total Counted Not Reportable Platelet Estimate ADEQUATE Anisocytosis RARE Macrocytosis RARE PT INR APTT Specimen Type Sample Site pH Bicarbonate Actual POC Total CO2 Base Excess O2 Saturation O2 % ABG pCO2 ABG pO2 Salas Test Respiration Rate O2 Delivery Device Minute Volume Vent Mode Tidal Volume POC PEEP Blood Gas Notified Whom Blood Gas Notified Time Sodium 143 Potassium 4.0 Chloride 98 Carbon Dioxide 39.0 H Anion Gap 6 BUN 22 H Creatinine 0.77 Estim Creat Clear Calc 99.94 Est GFR (MDRD) Af Amer 133 Est GFR (MDRD) Non-Af 110 BUN/Creatinine Ratio 28.7 H Glucose 118 H Lactic Acid Calcium 8.1 L Total Bilirubin AST ALT Alkaline Phosphatase Troponin I B-Natriuretic Peptide Total Protein Albumin Globulin Albumin/Globulin Ratio Urine Color Urine Clarity Urine pH Ur Specific Graham Urine Protein Urine Glucose (UA) Urine Ketones Urine Occult Blood Urine Nitrite Urine Bilirubin Urine Urobilinogen Ur Leukocyte Esterase Urine RBC Urine WBC Ur Squamous Epith Cells Urine Bacteria Urine Mucus POC Glucose 126 H 12/13/17 06:05 WBC RBC Hgb Hct MCV MCH MCHC RDW RDW Differential Plt Count MPV Immature Gran % (Auto) Neut % (Auto) Lymph % (Auto) Bates % (Auto) Eos % (Auto) Baso % (Auto) Absolute Neuts (auto) Absolute Lymphs (auto) Total Counted Platelet Estimate Anisocytosis Macrocytosis PT INR APTT Specimen Type Sample Site pH Bicarbonate Actual POC Total CO2 Base Excess O2 Saturation O2 % ABG pCO2 ABG pO2 Salas Test Respiration Rate O2 Delivery Device Minute Volume Vent Mode Tidal Volume POC PEEP Blood Gas Notified Whom Blood Gas Notified Time Sodium Potassium Chloride Carbon Dioxide Anion Gap BUN Creatinine Estim Creat Clear Calc Est GFR (MDRD) Af Amer Est GFR (MDRD) Non-Af BUN/Creatinine Ratio Glucose Lactic Acid Calcium Total Bilirubin AST ALT Alkaline Phosphatase Troponin I B-Natriuretic Peptide Total Protein Albumin Globulin Albumin/Globulin Ratio Urine Color Urine Clarity Urine pH Ur Specific Graham Urine Protein Urine Glucose (UA) Urine Ketones Urine Occult Blood Urine Nitrite Urine Bilirubin Urine Urobilinogen Ur Leukocyte Esterase Urine RBC Urine WBC Ur Squamous Epith Cells Urine Bacteria Urine Mucus POC Glucose 142 H Microbiology 12/12/17 11:35 Mucosa - Nasopharyngeal Respiratory Panel (PCR) - Final 12/12/17 07:45 Sputum, Tracheal Aspirate Gram Stain - Final Clinical Impression(s) from Imaging Studies Brain CT 12/12/17 07:34 IMPRESSION: No CT evidence of acute intracranial hemorrhage. Electronically Signed: Katya Wright MD at 8:54 EST , Service support , Chest X-Ray 12/12/17 07:40 IMPRESSION: Cardiomegaly and mild pulmonary congestion. Electronically Signed: Katya Wright MD at 8:02 EST , Service support , Medical Necessity - Tobacco Use Smoking Status: Current every day smoker Assessment/Plan All Active Problems (Last Updated 11/10/17 @ 12:14 by Brennon Maloney [employer]) Acute respiratory failure with hypoxia and hypercapnia (Acute) Pneumococcal pneumonia (Acute) Metabolic encephalopathy (Acute) Heart failure with reduced ejection fraction (Acute) Chest pain (Resolved) Respiratory failure, acute (Resolved) RECOMMENDATIONS: 1. Increase diuretic regimen to IV Lasix 80 mg twice daily. 2. Continue current supportive measures with invasive mechanical ventilatory support. 3. Wean FiO2 and PEEP as tolerated. 4. Beta-lori can be restarted once the patient has been volume optimized. 5. Check MRSA screen, and if negative, discontinue vancomycin. Will continue Zosyn, in the interim, pending infectious workup. 6. Start tube feeds today. 7. Continue bronchodilators as ordered. 8. Continue current sedation regimen with a goal to maintain a RASS of -1 to 1. 9. Continue appropriate ICU prophylaxis with subcutaneous heparin and Protonix. IMPRESSIONS: 1. Acute on chronic combined respiratory failure Likely secondary to decompensated heart failure in the setting of medical noncompliance, with superimposed bronchospastic airway disease and continued tobacco dependence likely contributing. While the patient appears to have normal systolic function on his most recent echocardiogram, I would certainly be concerned for the presence of underlying diastolic dysfunction. In addition, his weight is up significantly from that documented in November. The patient appears to be responding favorably to invasive mechanical ventilation and IV diuresis, with decreasing FiO2 requirements. Given that the patient did spike a fever overnight, antibiotics were started. We will continue broad antibiotics, pending infectious workup. Continue scheduled bronchodilators and wean FiO2 and PEEP as tolerated. Would plan to keep the patient's oxygen saturations 88-92%, to prevent paradoxical CO2 retention. Continue current sedation regimen as ordered. The patient's IV diuretic regimen will be increased to 80 mg twice daily today. 2. Metabolic encephalopathy Likely secondary to acute on chronic CO2 retention. Anticipate improvement with correction of the patient's underlying metabolic derangements. Minimize sedation as tolerated. 3. Decompensated heart failure/history of ischemic cardiomyopathy The patient's weight is significantly elevated when compared to that documented from November. IV diuretics will be continued accordingly. Restart the patient's beta-lori once he has been volume optimized. Initiate 1.5 L fluid restriction daily. 4. Diabetes mellitus Continue Accu-Cheks and sliding scale insulin coverage. 5. Obstructive sleep apnea The patient has a history of outpatient noncompliance with the use of nocturnal Pap therapy. He only utilizes supplemental oxygen on a nightly basis. 6. Ongoing tobacco dependence/super morbid obesity/history of medical noncompliance/hypertension Complicates care, management, recovery and prognosis. Nicotine replacement therapy can be offered while admitted to the hospital. TIME: 38 minutes of critical care time, independent of procedures, was spent addressing the patient's acute on chronic combined respiratory failure, metabolic encephalopathy, decompensated heart failure, obstructive sleep apnea, review of all data and collaboration with the care team. ([id number]) Code Visit 9xxxx: [id number] Critical care first hour
[2017-12-13] MEDS: Propofol 10MG/Ml 1,000 MG/100 ML Bottle 9.852 MG CONT INF ×2 (09:20→16:32)
--- NOTE | 2017-12-13 09:37 | PCM.PN.HOSP ---
Subjective: Patient seen and examined. He remains intubated. He spiked a fever overnight and was started on IV vancomycin and zosyn. blood and urine cultures were taken and pending. Patient remained hypotensive overnight. cardiology and soda fountain manager are on board. Patient remains intubated and sedated. Unable to do review of systems on account of sedation. Vitals/I&O's: Vital Signs Temp Pulse Resp BP Pulse Ox 99.5 F H 89 14 99/52 L 91 12/13/17 09:00 12/13/17 09:10 12/13/17 09:10 12/13/17 09:00 12/13/17 09:10 Oxygen Flow Rate (L/min) 70 Oxygen Delivery Method Mechanical Ventilator Weight: 361 lb 15.984 oz Body Mass Index (BMI) 55.5 Intake and Output for Last 24 Hours 12/11/17 12/12/17 12/13/17 23:59 23:59 23:59 Intake Total 1084 / 1084 414 / 414 Output Total 2550 / 2550 300 / 300 Balance -1466 / -1466 114 / 114 General: - - Intubated. Sedated. RASS score is +1. HEENT: Atraumatic, PERRLA, EOMI, Normocephalic Oral: Moist Mucosa Neck: Supple, No JVD, Negative Carotid Bruits Lungs: - - Still has coarse crackles bilaterally in all lung vences. Cardiovascular: Regular rate, Regular Rhythm, Normal S1, Normal S2, No murmurs Abdomen: Bowel Sounds Present, Soft, Non Tender, Non-Distended, No Hepato-splenomegaly Extremities: No clubbing, No cyanosis, - - bilateral nonpitting pedal edema Skin: - - erythema over LEs bilaterally. No differential warmth or tenderness. Musculoskeletal: No Tenderness to Palpation of Joints or Extremities Lymphatic: No Cervical, Supraclavicular, or Inguinal Adenopathy Neurological: Cranial nerves II-XII grossly intact, - - intubated and sedated. RASS score is +1. Psych/Mental Status: - - intubated, sedated Microbiology Past 72 Hours 12/12/17 09:05 Urine Catheter - Catheter Urine Culture - Preliminary Culture exhibits no growth. 12/12/17 07:45 Sputum, Tracheal Aspirate Gram Stain - Final 12/12/17 07:45 Sputum, Tracheal Aspirate Respiratory Culture - Preliminary Appears to be normal respiratory laurel. Further studies to follow. 12/12/17 11:35 Mucosa - Nasopharyngeal Respiratory Panel (PCR) - Final Laboratory Results 12/12/17 07:30: B-Natriuretic Peptide 207.3 H 12/12/17 12:21: POC Glucose 98 12/12/17 12:30: Troponin I 0.035 12/12/17 13:11: Specimen Type ART, Sample Site L Radial, pH 7.38, Bicarbonate Actual 43.6 H, POC Total CO2 46, Base Excess 18 H, O2 Saturation 90 L, O2 % 70, ABG pCO2 73.2 H*, ABG pO2 62 L, Salas Test POS, Respiration Rate 14, O2 Delivery Device Vent, Minute Volume 7.00, Vent Mode A-C, Tidal Volume 450, POC PEEP 8, Blood Gas Notified Whom ICU MD, Blood Gas Notified Time 1305 12/12/17 16:10: Troponin I 0.032 12/12/17 16:27: POC Glucose 109 12/12/17 23:56: POC Glucose 126 H 12/13/17 04:00: WBC 9.3, RBC 3.63 L, Hgb 10.0 L, Hct 34.8 L, MCV 95.9 H, MCH 27.5, MCHC 28.7 L, RDW 16.0 H, RDW Differential 55.5 H, Plt Count 208, MPV 10.0, Immature Gran % (Auto) 0.300, Neut % (Auto) 75.8 H, Lymph % (Auto) 12.9 L, [place] % (Auto) 9.5, Eos % (Auto) 1.3, Baso % (Auto) 0.2, Absolute Neuts (auto) 7.0, Absolute Lymphs (auto) 1.19, Total Counted Not Reportable, Platelet Estimate ADEQUATE, Anisocytosis RARE, Macrocytosis RARE 12/13/17 04:00: Sodium 143, Potassium 4.0, Chloride 98, Carbon Dioxide 39.0 H, Anion Gap 6, BUN 22 H, Creatinine 0.77, Estim Creat Clear Calc 99.94, Est GFR (MDRD) Af Amer 133, Est GFR (MDRD) Non-Af 110, BUN/Creatinine Ratio 28.7 H, Glucose 118 H, Calcium 8.1 L 12/13/17 06:05: POC Glucose 142 H 12/13/17 07:45: MRSA (PCR) Pending Diagnostic Data Brain CT 12/12/17 07:34 IMPRESSION: No CT evidence of acute intracranial hemorrhage. Electronically Signed: Katya Wright MD at 8:54 EST , Service support , Chest X-Ray 12/12/17 07:40 IMPRESSION: Cardiomegaly and mild pulmonary congestion. Electronically Signed: Katya Wright MD at 8:02 EST , Service support , Current Medications Acetaminophen (Tylenol Liquid) 650 mg GT Q6H PRN PRN PRN Reason: FEVER Albuterol Sulfate (Ventolin Aerosols) 2.5 mg INHALATION Q6HWA.RT JUANY Last Admin: 12/13/17 06:45 Dose: 2.5 mg Aspirin (Aspirin, Baby) 81 mg GT DAILY JUANY Atorvastatin Calcium (Lipitor) 40 mg GT QHS JUANY Budesonide (Pulmicort Aerosol) 0.5 mg INHALATION Q12H.RT JUANY Last Admin: 12/13/17 06:45 Dose: 0.5 mg Chlorhexidine Gluconate () 15 ml PO BID JUANY Last Admin: 12/12/17 22:04 Dose: 15 ml Chlorhexidine Gluconate () 1 each TOPICAL DAILY JUANY Last Admin: 12/13/17 00:48 Dose: 1 each Clopidogrel Bisulfate (Plavix) 75 mg GT DAILY [facility] Dextrose (D50w Syringe) 0 gm IV X1 PRN; Protocol PRN Reason: Hypoglycemia Furosemide (Lasix) 80 mg IV BID@1000,1800 JUANY Glucagon () 1 mg IM .X1 PRN PRN Reason: Hypoglycemia Heparin Sodium (Porcine) (Heparin Na) 5,000 unit SC Q8 JUANY Last Admin: 12/13/17 06:10 Dose: 5,000 unit Sodium Chloride () 250 mls @ 15 mls/hr IV .[id number] PRN PRN Reason: SALINE FLUSH Sodium Chloride () 250 mls @ 15 mls/hr IV .[id number] PRN PRN Reason: SALINE FLUSH Last Admin: 12/12/17 20:29 Dose: 15 mls/hr Fentanyl () 100 mls @ 5 mls/hr IV .Q20H [facility] Last Admin: 12/13/17 02:43 Dose: 5 mls/hr Piperacillin Sod/Tazobactam Sod (Zosyn) 3.375 gm in 50 mls @ 12.5 mls/hr IV Q8 [facility] Last Admin: 12/13/17 06:03 Dose: 12.5 mls/hr Propofol (Diprivan) 1,000 mg in 100 mls @ 9.852 mls/hr CONT INF .[id number] [facility] Last Admin: 12/13/17 09:20 Dose: 9.852 mls/hr Influenza Virus Vaccine Quadrival (Fluarix/Fluzone) 0.5 ml IM .ONCE ONE Stop: 12/13/17 10:01 Insulin Human Lispro (Humalog Kwikpen (Bkc)) 0 unit SQ Q6 [facility]; Protocol Last Admin: 12/13/17 06:09 Dose: Not Given Magnesium Hydroxide (Milk Of Magnesia) 30 ml PO DAILY PRN PRN PRN Reason: Constipation Polyethylene Glycol (Miralax) 17 gm GT BID JUANY Senna/Docusate Sodium (Senokot-S, Anne-Marie-Colace) 2 tablet GT BID JUANY Sodium Chloride () 5 - 30 ml IV UD PRN PRN Reason: SALINE FLUSH Last Admin: 12/13/17 06:03 Dose: 20 ml Medical Necessity - Tobacco Use Smoking Status: Current every day smoker Assessment/Plan All Active Problems (Last Updated 11/10/17 @ 12:14 by Brennon Maloney, [employer]) Acute respiratory failure with hypoxia and hypercapnia (Acute) Pneumococcal pneumonia (Acute) Metabolic encephalopathy (Acute) Heart failure with reduced ejection fraction (Acute) Chest pain (Resolved) Respiratory failure, acute (Resolved) 1. Acute hypoxic and hyeprcarbic respiratory failure due to possible CHF exacerbation remains intubated and sedated. on propofol and fentanyl for sedation. RASS score is +1 being diuresed with IV lasix cardiology and pulmonology on board Was hypotensive overnight. Blood pressure remains in the 90s systolic. vent settings as per soda fountain manager on breathing treatments 2. ACute CHF exacerbation has history of ischemic cardiomyopathy last echo(06/24): EF of 50%, unable to assess diastolic function. Mild segmental systolic dysfunction.left atrium mildly enlarged. Unable to assess PA systolic pressure lasix increased to 80mg bid; I had concerns about patient being preload dependent, and him being hypotensive as well. I discussed my concerns with soda fountain manager. Based on patient's previous admissions, where he came in severely fluid overloaded, consensus is that it is advisable to increase Lasix dose for now. If blood pressure times or more, will consider holding off on Lasix. echo done yesterday showed normal LV function, unable to quantify RVSP. EF was 60% 3. Elevated temperature Spiked fever to about 100.6 Fahrenheit overnight. SIRS criteria is 1/. No source of infection. Blood and urine cultures taken. Started on IV vancomycin and Zosyn. no leucocytosis; will continue antibiotics for now. respiratory panel was negative. Sputum cultures taken. 4. Diabetes mellitus: on ISS. accuchecks q6 5. EMILIA: currently on ventilator due to respiratory failure 6. Hypertension: on losartan and carvedilol.BP meds held o/a of hypotensionl 7;. MOrbid obesity: BMI >50. This complicates medical care. DVT prophylaxis: heparin GI prophylaxis: famotidine Code Visit Inpatient E&M: 87635 Subs Hosp L3
--- NOTE | 2017-12-13 09:44 | PN.CARD_ITS ---
Subjectve: Patient intubated, sedated, but able to wake up and obey commands. Heme and apically stable. Telemetry shows normal sinus rhythm with PVCs in a trigeminal pattern on occasion. Echocardiogram done yesterday demonstrates normal LV function, unable to quantitate RVSP. Objective: Vital Signs Temp Pulse Resp BP Pulse Ox 99.5 F H 89 14 99/52 L 91 12/13/17 09:00 12/13/17 09:10 12/13/17 09:10 12/13/17 09:00 12/13/17 09:10 Oxygen Flow Rate (L/min) 70 Oxygen Delivery Method Mechanical Ventilator Weight: 361 lb 15.984 oz Body Mass Index (BMI) 55.5 Intake and Output for Last 24 Hours 12/11/17 12/12/17 12/13/17 23:59 23:59 23:59 Intake Total 1084 / 1084 414 / 414 Output Total 2550 / 2550 300 / 300 Balance -1466 / -1466 114 / 114 General: Awake, Alert, Oriented x 3 HEENT: PERRL, EOMI, Sclera Non Icteric Neck: Supple, Good ROM, No Lymph Node Enlargement Lungs: Clear to auscultation Cardiovascular: Regular Rhythm, Normal S1, Normal S2, No Murmurs, No Rubs, No Gallops Vascular: No Carotid Bruits, Normal Femoral Pulses, Normal Radial Pulses, Normal Dorsalis Pedal Pulse, Normal Posterior Tibial Pulses Abdomen: Bowel Sounds Present, Soft, Non Tender, No HSM, No Organomegaly Extremities: No Cyanosis, No Clubbing, Bilateral Edema +2 Neurological: No Focal Motor or Sensory Deficit 12/12/17 07:30: B-Natriuretic Peptide 207.3 H 12/12/17 12:30: Troponin I 0.035 12/12/17 13:11: pH 7.38, Bicarbonate Actual 43.6 H, POC Total CO2 46, Base Excess 18 H, O2 Saturation 90 L, ABG pCO2 73.2 H*, ABG pO2 62 L, Salas Test POS 12/12/17 16:10: Troponin I 0.032 12/13/17 04:00: WBC 9.3, RBC 3.63 L, Hgb 10.0 L, Hct 34.8 L, MCV 95.9 H, MCH 27.5, MCHC 28.7 L, RDW 16.0 H, RDW Differential 55.5 H, Plt Count 208, MPV 10.0, Immature Gran % (Auto) 0.300, Neut % (Auto) 75.8 H, Lymph % (Auto) 12.9 L, [place] % (Auto) 9.5, Eos % (Auto) 1.3, Baso % (Auto) 0.2, Absolute Neuts (auto) 7.0, Total Counted Not Reportable 12/13/17 04:00: Sodium 143, Potassium 4.0, Chloride 98, Carbon Dioxide 39.0 H, Anion Gap 6, BUN 22 H, Creatinine 0.77, Est GFR (MDRD) Af Amer 133, Est GFR (MDRD) Non-Af 110, BUN/Creatinine Ratio 28.7 H, Glucose 118 H, Calcium 8.1 L Rhythm: EKG: ECHO: Stress Test: Cardiac Cath: PCI: CT Surgery: Holter monitor: EPS: PPM: CXR: Chest CT Scan: Medical Necessity - Tobacco Use Smoking Status: Current every day smoker Assessment/Plan 1. Coronary artery disease: Patient has no significant troponin release despite having known coronary artery disease. He has a known occluded right coronary artery, with collateral from left to right, and is status post angioplasty and stenting to his LAD in 2012 and left circumflex in June 2017. Patient has had no malignant arrhythmias, and apparently presented with respiratory distress possibly due to pulmonary source of infection. He is being treated with broad- spectrum antibiotics and is on no pressor support at this time. Patient does have evidence of right-sided heart failure and unknown pulmonary pressures by echocardiogram yesterday. His EF was estimated to be 60% although his imaging was technically difficult. He is currently undergoing diuresis with Lasix 80 mg IV twice daily to assist with decompressing his right side. At this point I would not recommend invasive evaluation such as a catheterization unless or until the patient has difficulty being weaned off the ventilator possibly due to coronary ischemia. Would recommend he continue his baby aspirin, Plavix, and hold his antihypertensives given his infection and hypotension. He has not required pressor agents at this time. 2. Obstructive sleep apnea: The patient is evidence of pulmonary hypertension and right-sided heart failure most likely result of obstructive sleep apnea. He is on chronic O2 therapy at home as well. Patient may be preload dependent so if his blood pressure deteriorates with IV diuresis, he may require discontinuation of IV diuretic therapy. 3. Hyperlipidemia: Continue statin based medications. 4. Thank you very much for the opportunity to participate in the cardiac care of your patient. Code Visit Inpatient E&M: 99589 Subs Hosp L2
--- NOTE | 2017-12-13 09:46 | PN_ITS ---
Subjective: Patient seen and examined. He remains intubated. He spiked a fever overnight and was started on IV vancomycin and zosyn. blood and urine cultures were taken and pending. Patient remained hypotensive overnight. cardiology and emery wheel worker are on board. Patient remains intubated and sedated. Unable to do review of systems on account of sedation. Vitals/I&O's: Vital Signs Temp Pulse Resp BP Pulse Ox 99.5 F H 89 14 99/52 L 91 12/13/17 09:00 12/13/17 09:10 12/13/17 09:10 12/13/17 09:00 12/13/17 09:10 Oxygen Flow Rate (L/min) 70 Oxygen Delivery Method Mechanical Ventilator Weight: 361 lb 15.984 oz Body Mass Index (BMI) 55.5 Intake and Output for Last 24 Hours 12/11/17 12/12/17 12/13/17 23:59 23:59 23:59 Intake Total 1084 / 1084 414 / 414 Output Total 2550 / 2550 300 / 300 Balance -1466 / -1466 114 / 114 General: - - Intubated. Sedated. RASS score is +1. HEENT: Atraumatic, PERRLA, EOMI, Normocephalic Oral: Moist Mucosa Neck: Supple, No JVD, Negative Carotid Bruits Lungs: - - Still has coarse crackles bilaterally in all lung vences. Cardiovascular: Regular rate, Regular Rhythm, Normal S1, Normal S2, No murmurs Abdomen: Bowel Sounds Present, Soft, Non Tender, Non-Distended, No Hepato- splenomegaly Extremities: No clubbing, No cyanosis, - - bilateral nonpitting pedal edema Skin: - - erythema over LEs bilaterally. No differential warmth or tenderness. Musculoskeletal: No Tenderness to Palpation of Joints or Extremities Lymphatic: No Cervical, Supraclavicular, or Inguinal Adenopathy Neurological: Cranial nerves II-XII grossly intact, - - intubated and sedated. RASS score is +1. Psych/Mental Status: - - intubated, sedated Microbiology Past 72 Hours 12/12/17 09:05 Urine Catheter - Catheter Urine Culture - Preliminary Culture exhibits no growth. 12/12/17 07:45 Sputum, Tracheal Aspirate Gram Stain - Final 12/12/17 07:45 Sputum, Tracheal Aspirate Respiratory Culture - Preliminary Appears to be normal respiratory laurel. Further studies to follow. 12/12/17 11:35 Mucosa - Nasopharyngeal Respiratory Panel (PCR) - Final Laboratory Results 12/12/17 07:30: B-Natriuretic Peptide 207.3 H 12/12/17 12:21: POC Glucose 98 12/12/17 12:30: Troponin I 0.035 12/12/17 13:11: Specimen Type ART, Sample Site L Radial, pH 7.38, Bicarbonate Actual 43.6 H, POC Total CO2 46, Base Excess 18 H, O2 Saturation 90 L, O2 % 70, ABG pCO2 73.2 H*, ABG pO2 62 L, Salas Test POS, Respiration Rate 14, O2 Delivery Device Vent, Minute Volume 7.00, Vent Mode A-C, Tidal Volume 450, POC PEEP 8, Blood Gas Notified Whom ICU MD, Blood Gas Notified Time 1305 12/12/17 16:10: Troponin I 0.032 12/12/17 16:27: POC Glucose 109 12/12/17 23:56: POC Glucose 126 H 12/13/17 04:00: WBC 9.3, RBC 3.63 L, Hgb 10.0 L, Hct 34.8 L, MCV 95.9 H, MCH 27.5, MCHC 28.7 L, RDW 16.0 H, RDW Differential 55.5 H, Plt Count 208, MPV 10.0, Immature Gran % (Auto) 0.300, Neut % (Auto) 75.8 H, Lymph % (Auto) 12.9 L, [place] % (Auto) 9.5, Eos % (Auto) 1.3, Baso % (Auto) 0.2, Absolute Neuts (auto) 7.0, Absolute Lymphs (auto) 1.19, Total Counted Not Reportable, Platelet Estimate ADEQUATE, Anisocytosis RARE, Macrocytosis RARE 12/13/17 04:00: Sodium 143, Potassium 4.0, Chloride 98, Carbon Dioxide 39.0 H, Anion Gap 6, BUN 22 H, Creatinine 0.77, Estim Creat Clear Calc 99.94, Est GFR (MDRD) Af Amer 133, Est GFR (MDRD) Non-Af 110, BUN/Creatinine Ratio 28.7 H, Glucose 118 H, Calcium 8.1 L 12/13/17 06:05: POC Glucose 142 H 12/13/17 07:45: MRSA (PCR) Pending Diagnostic Data Brain CT 12/12/17 07:34 IMPRESSION: No CT evidence of acute intracranial hemorrhage. Electronically Signed: Katya Wright MD at 8:54 EST , Service support , Chest X-Ray 12/12/17 07:40 IMPRESSION: Cardiomegaly and mild pulmonary congestion. Electronically Signed: Katya Wright MD at 8:02 EST , Service support , Current Medications Acetaminophen (Tylenol Liquid) 650 mg GT Q6H PRN PRN PRN Reason: FEVER Albuterol Sulfate (Ventolin Aerosols) 2.5 mg INHALATION Q6HWA.RT JUANY Last Admin: 12/13/17 06:45 Dose: 2.5 mg Aspirin (Aspirin, Baby) 81 mg GT DAILY JUANY Atorvastatin Calcium (Lipitor) 40 mg GT QHS JUANY Budesonide (Pulmicort Aerosol) 0.5 mg INHALATION Q12H.RT JUANY Last Admin: 12/13/17 06:45 Dose: 0.5 mg Chlorhexidine Gluconate () 15 ml PO BID JUANY Last Admin: 12/12/17 22:04 Dose: 15 ml Chlorhexidine Gluconate () 1 each TOPICAL DAILY JUANY Last Admin: 12/13/17 00:48 Dose: 1 each Clopidogrel Bisulfate (Plavix) 75 mg GT DAILY [facility] Dextrose (D50w Syringe) 0 gm IV X1 PRN; Protocol PRN Reason: Hypoglycemia Furosemide (Lasix) 80 mg IV BID@1000,1800 JUANY Glucagon () 1 mg IM .X1 PRN PRN Reason: Hypoglycemia Heparin Sodium (Porcine) (Heparin Na) 5,000 unit SC Q8 JUANY Last Admin: 12/13/17 06:10 Dose: 5,000 unit Sodium Chloride () 250 mls @ 15 mls/hr IV .[id number] PRN PRN Reason: SALINE FLUSH Sodium Chloride () 250 mls @ 15 mls/hr IV .[id number] PRN PRN Reason: SALINE FLUSH Last Admin: 12/12/17 20:29 Dose: 15 mls/hr Fentanyl () 100 mls @ 5 mls/hr IV .Q20H [facility] Last Admin: 12/13/17 02:43 Dose: 5 mls/hr Piperacillin Sod/Tazobactam Sod (Zosyn) 3.375 gm in 50 mls @ 12.5 mls/hr IV Q8 [facility] Last Admin: 12/13/17 06:03 Dose: 12.5 mls/hr Propofol (Diprivan) 1,000 mg in 100 mls @ 9.852 mls/hr CONT INF .[id number] [facility] Last Admin: 12/13/17 09:20 Dose: 9.852 mls/hr Influenza Virus Vaccine Quadrival (Fluarix/Fluzone) 0.5 ml IM .ONCE ONE Stop: 12/13/17 10:01 Insulin Human Lispro (Humalog Kwikpen (Bkc)) 0 unit SQ Q6 [facility]; Protocol Last Admin: 12/13/17 06:09 Dose: Not Given Magnesium Hydroxide (Milk Of Magnesia) 30 ml PO DAILY PRN PRN PRN Reason: Constipation Polyethylene Glycol (Miralax) 17 gm GT BID JUANY Senna/Docusate Sodium (Senokot-S, Anne-Marie-Colace) 2 tablet GT BID JUANY Sodium Chloride () 5 - 30 ml IV UD PRN PRN Reason: SALINE FLUSH Last Admin: 12/13/17 06:03 Dose: 20 ml Medical Necessity - Tobacco Use Smoking Status: Current every day smoker Assessment/Plan All Active Problems (Last Updated 11/10/17 @ 12:14 by Brennon Maloney, [employer]) Acute respiratory failure with hypoxia and hypercapnia (Acute) Pneumococcal pneumonia (Acute) Metabolic encephalopathy (Acute) Heart failure with reduced ejection fraction (Acute) Chest pain (Resolved) Respiratory failure, acute (Resolved) 1. Acute hypoxic and hyeprcarbic respiratory failure due to possible CHF exace rbation * remains intubated and sedated. * on propofol and fentanyl for sedation. RASS score is +1 * being diuresed with IV lasix * cardiology and pulmonology on board * Was hypotensive overnight. Blood pressure remains in the 90s systolic. * vent settings as per emery wheel worker * on breathing treatments * 2. ACute CHF exacerbation * has history of ischemic cardiomyopathy * last echo(06/24): EF of 50%, unable to assess diastolic function. Mild segmental systolic dysfunction.left atrium mildly enlarged. Unable to assess PA systolic pressure * lasix increased to 80mg bid; I had concerns about patient being preload dependent, and him being hypotensive as well. * I discussed my concerns with emery wheel worker. Based on patient's previous admissions, where he came in severely fluid overloaded, consensus is that it is advisable to increase Lasix dose for now. If blood pressure times or more, will consider holding off on Lasix. * echo done yesterday showed normal LV function, unable to quantify RVSP. EF was 60% * 3. Elevated temperature * Spiked fever to about 100.6 Fahrenheit overnight. * SIRS criteria is 1/4. No source of infection. * Blood and urine cultures taken. * Started on IV vancomycin and Zosyn. * no leucocytosis; will continue antibiotics for now. * respiratory panel was negative. Sputum cultures taken. * 4. Diabetes mellitus: on ISS. accuchecks q6 5. EMILIA: currently on ventilator due to respiratory failure 6. Hypertension: on losartan and carvedilol.BP meds held o/a of hypotensionl 7;. MOrbid obesity: BMI >50. This complicates medical care. DVT prophylaxis: heparin GI prophylaxis: famotidine Code Visit Inpatient E&M: [id number] Subs Hosp L3
[2017-12-13 10:28] LABS: M R Staph aureus DNA By PCR Negative (Negative); Probe Check PASS; Specimen Processing Control PASS
[2017-12-13] MEDS: Aspirin 81 MG TAB.CHEW GT (10:32)
[2017-12-13] MEDS: Polyethylene Glycol 3350 17 GM PACKET GT ×2 (10:32→22:42)
[2017-12-13] MEDS: Clopidogrel Bisulfate 75 MG Tablet GT (10:32)
[2017-12-13] MEDS: Senna/Docusate Sodium 1 Tablet 2 TABLET GT ×2 (10:33→22:42)
[2017-12-13] MEDS: Furosemide 100 MG/10 ML Vial 80 MG IV ×2 (10:33→18:32)
[2017-12-13] MEDS: Chlorhexidine 15 ML PO ×2 (10:41→22:40)
[2017-12-13 12:30] LABS: Bedside Glucose 90 mg/dL (70-110)
[2017-12-13 13:08] LABS: CPK Total, Creatine Kinase 53 U/L (39-308); Triglycerides 149 mg/dL
[2017-12-13] MEDS: Famotidine 20 MG Tablet GT ×2 (14:30→22:42)
--- NOTE | 2017-12-13 15:56 | CASEMGMT ---
Patient is from [facility]. He is currently on a vent. He has been to [facility] in the past. will follow for d/c planning. Per RN patient's sister called [facility] to check on patient. Nyla FELTON MSW
[2017-12-13 18:41] LABS: Bedside Glucose 95 mg/dL (70-110)
--- NOTE | 2017-12-13 19:38 | NURSING ---
education re chronic illness deferred till pt acute illness improving and pt able to participate
[2017-12-13] MEDS: Atorvastatin Calcium 40 MG Tablet GT (22:42)
[2017-12-14] VITALS (39 sets, daily range): BP systolic 91–115; BP diastolic 49–76; PULSE 76–95; RESP 14–440; TEMP 37.4–37.9; O2SAT 86–95
[2017-12-14 01:06] LABS: Bedside Glucose 100 mg/dL (70-110)
[2017-12-14] MEDS: Propofol 10MG/Ml 1,000 MG/100 ML Bottle 9.852 MG CONT INF ×3 (02:43→21:17)
[2017-12-14 04:38] LABS: Absolute Lymphocyte Count 1.29 X10^3/ul (0.83-4.51); Basophil# 0.02 X10^3/uL; Basophil% 0.2 % (0-1); Eosinophil# 0.35 X10^3/uL; Eosinophils% 4.2 % (0-5); Hematocrit 34.8 % (40-54); Hemoglobin 10.4 g/dl (13.0-16.5); Lymphocyte # 1.29 X10^3/ul (4.0); Lymphocyte % 15.6 % (19-41); Mean Corp Hgb Conc 29.9 g/gl (32-36); Mean Corpuscular Hgb 28.5 pg (27.0-32.0); Mean Corpuscular Volume 95.3 fL (80-94); Mean Platelet Vol. 9.7 fl (6.2-12.0); Monocyte# 0.57 X10^3/uL; Monocyte% 6.9 % (0-10); Neutrophil # 6.02 X10^3/uL (2.7-7.7); Neutrophil % 72.7 % (47-70); Platelet Count 220 K/mm3 (150-450); RBC Distribution Width CV 15.9 % (11.6-14.6); RBC Distribution Width SD 52.9 fl (35.1-43.9); Red Blood Count 3.65 M/mm3 (4.6-6.2); White Blood Count 8.3 K/mm3 (4.4-11.0)
[2017-12-14 04:46] LABS: POSITIVE COUNT NO; POSITIVE DIFFERENTIAL NO; POSITIVE MORPHOLOGY NO
[2017-12-14 04:53] LABS: Anion Gap 5 (5-15); BUN 23 mg/dL (7-18); BUN/Creat Ratio 27.3 RATIO (10-20); Calcium,Total 8.3 mg/dL (8.5-10.1); Chloride 97 mmol/L (98-107); Creatinine, Serum 0.84 mg/dL (0.70-1.30); EST Glomerular Filtration Rate 99 mL/min (>60); Est Glom Filt Rate - Afr Amer 120 mL/min (>60); Estimated Creatinine Clearance 91.61 ml/min; Glucose 101 mg/dL (74-106); Potassium 3.5 mmol/L (3.5-5.1); Sodium Level 144 mmol/L (136-145)
[2017-12-14] MEDS: CHLORHEXIDINE GLUC 2% CLOTH 1 EACH TOWELETTE TOPICAL (05:23)
[2017-12-14] MEDS: 0.9% NaCl Peripheral Flush Adult/Peds IV ×3 (05:23→18:32)
[2017-12-14] MEDS: Insulin Lispro 100 UNIT/ML INSULN.PEN SQ ×2 (05:58→18:30)
[2017-12-14] MEDS: Heparin Injection (Vial) 5,000 UNIT/ML VIAL 5000 UNIT SC ×3 (05:59→21:56)
[2017-12-14] MEDS: Piperacil/Tazobactam 3.375 GM/50 ML ML IV ×3 (05:59→21:57)
[2017-12-14] MEDS: fentaNYL drip 100 ML 5 MCG IV ×2 (06:08→20:13)
[2017-12-14 06:11] LABS: Bedside Glucose 173 mg/dL (70-110)
[2017-12-14] MEDS: Albuterol 2.5 MG/3 ML VIAL.NEB. INHALATION ×3 (06:43→18:35)
[2017-12-14] MEDS: Budesonide Respules 0.5 MG/2 ML AMPUL.NEB. INHALATION ×2 (06:50→18:35)
--- NOTE | 2017-12-14 06:53 | PCM.PN.INT ---
Subjective: The patient was seen and examined at the bedside this morning. Events from the last 24 hours have been reviewed. The patient is currently afebrile, hemodynamically stable and maintaining appropriate oxygen saturations with an FiO2 requirement of 65%. Unfortunately, the patient's FiO2 did have to be increased from 60 to 65% overnight. The patient's creatinine remains stable. He was overall net -1.8 L yesterday. He is now overall net -3.2 L for the admission. The patient is alert and interactive. There is no pain complaints. Objective: The patient's most recent lab work, culture data and imaging studies have all been personally reviewed. Respiratory viral panel was negative. Blood, urine and sputum cultures are all pending. Surface echocardiogram revealed normal LV size and function with an ejection fraction of 60%. General: - - Intubated, sedated and mechanically ventilated. No ventilator dyssynchrony noted. HEENT: Atraumatic, PERRLA, Normocephalic Oral: No Gingival or Mucosal Lesions/ Ulcerations, - - Endotracheal and OG tubes remain in place. Neck: Supple, No Nodes, Trachea Midline Lungs: No rhonchi, No wheeze, No rales, Diminished Cardiovascular: Regular rate, Regular Rhythm, Normal S1, Normal S2 Abdomen: Bowel Sounds Present, Soft, Non Tender, Obese Extremities: No clubbing, No cyanosis, Diminished Peripheral Pulses, Edema Skin: - - No significant change from previous. Musculoskeletal: No Tenderness to Palpation of Joints or Extremities, No Muscle Wasting Lymphatic: No Cervical, Supraclavicular, or Inguinal Adenopathy Neurological: Neuro grossly intact, - - Alert, cooperative and able to follow simple commands. Vital Signs Temp Pulse Resp BP Pulse Ox 37.5 C H 85 14 93/52 L 90 12/14/17 06:00 12/14/17 06:43 12/14/17 06:43 12/14/17 06:00 12/14/17 06:00 Oxygen Flow Rate (L/min) 70 Oxygen Delivery Method Mechanical Ventilator Weight: 353 lb 6.416 oz Body Mass Index (BMI) 55.5 Intake and Output for Last 24 Hours 12/12/17 12/13/17 12/14/17 23:59 23:59 23:59 Intake Total 1084 / 1084 1409.3 / 1409.3 413.2 / 413.2 Output Total 2550 / 2550 3265 / 3265 250 / 250 Balance -1466 / -1466 -1855.7 / -1855.7 163.2 / 163.2 Labs (Last 48 Hours) 12/12/17 12/12/17 12/12/17 07:30 07:30 07:30 WBC 8.9 RBC 4.09 L Hgb 11.9 L Hct 40.5 MCV 99.0 H MCH 29.1 MCHC 29.4 L RDW 16.4 H RDW Differential 58.1 H Plt Count 256 MPV 9.6 Immature Gran % (Auto) 1.500 H Neut % (Auto) 75.1 H Lymph % (Auto) 13.1 L [place] % (Auto) 9.0 Eos % (Auto) 1.0 Baso % (Auto) 0.3 Absolute Neuts (auto) 6.7 Absolute Lymphs (auto) 1.17 Total Counted Not Reportable Platelet Estimate Anisocytosis Macrocytosis PT 13.8 INR 1.1 APTT 30.5 Specimen Type Sample Site pH Bicarbonate Actual POC Total CO2 Base Excess O2 Saturation O2 % ABG pCO2 ABG pO2 [place] Test Respiration Rate O2 Delivery Device Minute Volume Vent Mode Tidal Volume POC PEEP Blood Gas Notified Whom Blood Gas Notified Time Sodium 138 Potassium 4.5 Chloride 96 L Carbon Dioxide 41.0 H Anion Gap 1 L BUN 25 H Creatinine 0.82 Estim Creat Clear Calc 97.00 Est GFR (MDRD) Af Amer 124 Est GFR (MDRD) Non-Af 102 BUN/Creatinine Ratio 30.6 H Glucose 146 H Lactic Acid Calcium 7.9 L Total Bilirubin 0.40 AST 15 ALT 33 Alkaline Phosphatase 87 Total Creatine Kinase Troponin I 0.022 B-Natriuretic Peptide Total Protein 7.6 Albumin 3.1 L Globulin 4.5 H Albumin/Globulin Ratio 0.7 L Triglycerides Urine Color Urine Clarity Urine pH Ur Specific [place] Urine Protein Urine Glucose (UA) Urine Ketones Urine Occult Blood Urine Nitrite Urine Bilirubin Urine Urobilinogen Ur Leukocyte Esterase Urine RBC Urine WBC Ur Squamous Epith Cells Urine Bacteria Urine Mucus MRSA (PCR) POC Glucose 12/12/17 12/12/17 12/12/17 07:30 07:30 08:03 WBC RBC Hgb Hct MCV MCH MCHC RDW RDW Differential Plt Count MPV Immature Gran % (Auto) Neut % (Auto) Lymph % (Auto) [place] % (Auto) Eos % (Auto) Baso % (Auto) Absolute Neuts (auto) Absolute Lymphs (auto) Total Counted Platelet Estimate Anisocytosis Macrocytosis PT INR APTT Specimen Type ART Sample Site R Radial pH 7.23 L Bicarbonate Actual 39.8 H POC Total CO2 43 Base Excess 12 H O2 Saturation 91 L O2 % 100 ABG pCO2 94.8 H* ABG pO2 77 [place] Test POS Respiration Rate 14 O2 Delivery Device Vent Minute Volume 5.00 Vent Mode A-C Tidal Volume 450 POC PEEP 8 Blood Gas Notified Whom ED MD Blood Gas Notified Time 802 Sodium Potassium Chloride Carbon Dioxide Anion Gap BUN Creatinine Estim Creat Clear Calc Est GFR (MDRD) Af Amer Est GFR (MDRD) Non-Af BUN/Creatinine Ratio Glucose Lactic Acid 1.2 Calcium Total Bilirubin AST ALT Alkaline Phosphatase Total Creatine Kinase Troponin I B-Natriuretic Peptide 207.3 H Total Protein Albumin Globulin Albumin/Globulin Ratio Triglycerides Urine Color Urine Clarity Urine pH Ur Specific [place] Urine Protein Urine Glucose (UA) Urine Ketones Urine Occult Blood Urine Nitrite Urine Bilirubin Urine Urobilinogen Ur Leukocyte Esterase Urine RBC Urine WBC Ur Squamous Epith Cells Urine Bacteria Urine Mucus MRSA (PCR) POC Glucose 12/12/17 12/12/17 12/12/17 09:05 12:21 12:30 WBC RBC Hgb Hct MCV MCH MCHC RDW RDW Differential Plt Count MPV Immature Gran % (Auto) Neut % (Auto) Lymph % (Auto) [place] % (Auto) Eos % (Auto) Baso % (Auto) Absolute Neuts (auto) Absolute Lymphs (auto) Total Counted Platelet Estimate Anisocytosis Macrocytosis PT INR APTT Specimen Type Sample Site pH Bicarbonate Actual POC Total CO2 Base Excess O2 Saturation O2 % ABG pCO2 ABG pO2 [place] Test Respiration Rate O2 Delivery Device Minute Volume Vent Mode Tidal Volume POC PEEP Blood Gas Notified Whom Blood Gas Notified Time Sodium Potassium Chloride Carbon Dioxide Anion Gap BUN Creatinine Estim Creat Clear Calc Est GFR (MDRD) Af Amer Est GFR (MDRD) Non-Af BUN/Creatinine Ratio Glucose Lactic Acid Calcium Total Bilirubin AST ALT Alkaline Phosphatase Total Creatine Kinase Troponin I 0.035 B-Natriuretic Peptide Total Protein Albumin Globulin Albumin/Globulin Ratio Triglycerides Urine Color Yellow Urine Clarity Sl. Cloudy Urine pH 6.0 Ur Specific [place] 1.020 Urine Protein 30 H Urine Glucose (UA) Normal Urine Ketones Negative Urine Occult Blood Negative Urine Nitrite Negative Urine Bilirubin Negative Urine Urobilinogen Normal Ur Leukocyte Esterase Negative Urine RBC 0 SEEN Urine WBC 0 SEEN Ur Squamous Epith Cells 0-5 SEEN Urine Bacteria RARE Urine Mucus 0 SEEN MRSA (PCR) POC Glucose 98 12/12/17 12/12/17 12/12/17 13:11 16:10 16:27 WBC RBC Hgb Hct MCV MCH MCHC RDW RDW Differential Plt Count MPV Immature Gran % (Auto) Neut % (Auto) Lymph % (Auto) [place] % (Auto) Eos % (Auto) Baso % (Auto) Absolute Neuts (auto) Absolute Lymphs (auto) Total Counted Platelet Estimate Anisocytosis Macrocytosis PT INR APTT Specimen Type ART Sample Site L Radial pH 7.38 Bicarbonate Actual 43.6 H POC Total CO2 46 Base Excess 18 H O2 Saturation 90 L O2 % 70 ABG pCO2 73.2 H* ABG pO2 62 L [place] Test POS Respiration Rate 14 O2 Delivery Device Vent Minute Volume 7.00 Vent Mode A-C Tidal Volume 450 POC PEEP 8 Blood Gas Notified Whom ICU Blood Gas Notified Time 1305 Sodium Potassium Chloride Carbon Dioxide Anion Gap BUN Creatinine Estim Creat Clear Calc Est GFR (MDRD) Af Amer Est GFR (MDRD) Non-Af BUN/Creatinine Ratio Glucose Lactic Acid Calcium Total Bilirubin AST ALT Alkaline Phosphatase Total Creatine Kinase Troponin I 0.032 B-Natriuretic Peptide Total Protein Albumin Globulin Albumin/Globulin Ratio Triglycerides Urine Color Urine Clarity Urine pH Ur Specific [place] Urine Protein Urine Glucose (UA) Urine Ketones Urine Occult Blood Urine Nitrite Urine Bilirubin Urine Urobilinogen Ur Leukocyte Esterase Urine RBC Urine WBC Ur Squamous Epith Cells Urine Bacteria Urine Mucus MRSA (PCR) POC Glucose 109 12/12/17 12/13/17 12/13/17 23:56 04:00 04:00 WBC 9.3 RBC 3.63 L Hgb 10.0 L Hct 34.8 L MCV 95.9 H MCH 27.5 MCHC 28.7 L RDW 16.0 H RDW Differential 55.5 H Plt Count 208 MPV 10.0 Immature Gran % (Auto) 0.300 Neut % (Auto) 75.8 H Lymph % (Auto) 12.9 L [place] % (Auto) 9.5 Eos % (Auto) 1.3 Baso % (Auto) 0.2 Absolute Neuts (auto) 7.0 Absolute Lymphs (auto) 1.19 Total Counted Not Reportable Platelet Estimate ADEQUATE Anisocytosis RARE Macrocytosis RARE PT INR APTT Specimen Type Sample Site pH Bicarbonate Actual POC Total CO2 Base Excess O2 Saturation O2 % ABG pCO2 ABG pO2 [place] Test Respiration Rate O2 Delivery Device Minute Volume Vent Mode Tidal Volume POC PEEP Blood Gas Notified Whom Blood Gas Notified Time Sodium 143 Potassium 4.0 Chloride 98 Carbon Dioxide 39.0 H Anion Gap 6 BUN 22 H Creatinine 0.77 Estim Creat Clear Calc 99.94 Est GFR (MDRD) Af Amer 133 Est GFR (MDRD) Non-Af 110 BUN/Creatinine Ratio 28.7 H Glucose 118 H Lactic Acid Calcium 8.1 L Total Bilirubin AST ALT Alkaline Phosphatase Total Creatine Kinase Troponin I B-Natriuretic Peptide Total Protein Albumin Globulin Albumin/Globulin Ratio Triglycerides Urine Color Urine Clarity Urine pH Ur Specific [place] Urine Protein Urine Glucose (UA) Urine Ketones Urine Occult Blood Urine Nitrite Urine Bilirubin Urine Urobilinogen Ur Leukocyte Esterase Urine RBC Urine WBC Ur Squamous Epith Cells Urine Bacteria Urine Mucus MRSA (PCR) POC Glucose 126 H 12/13/17 12/13/17 12/13/17 04:00 06:05 07:45 WBC RBC Hgb Hct MCV MCH MCHC RDW RDW Differential Plt Count MPV Immature Gran % (Auto) Neut % (Auto) Lymph % (Auto) [place] % (Auto) Eos % (Auto) Baso % (Auto) Absolute Neuts (auto) Absolute Lymphs (auto) Total Counted Platelet Estimate Anisocytosis Macrocytosis PT INR APTT Specimen Type Sample Site pH Bicarbonate Actual POC Total CO2 Base Excess O2 Saturation O2 % ABG pCO2 ABG pO2 [place] Test Respiration Rate O2 Delivery Device Minute Volume Vent Mode Tidal Volume POC PEEP Blood Gas Notified Whom Blood Gas Notified Time Sodium Potassium Chloride Carbon Dioxide Anion Gap BUN Creatinine Estim Creat Clear Calc Est GFR (MDRD) Af Amer Est GFR (MDRD) Non-Af BUN/Creatinine Ratio Glucose Lactic Acid Calcium Total Bilirubin AST ALT Alkaline Phosphatase Total Creatine Kinase 53 Troponin I B-Natriuretic Peptide Total Protein Albumin Globulin Albumin/Globulin Ratio Triglycerides 149 Urine Color Urine Clarity Urine pH Ur Specific [place] Urine Protein Urine Glucose (UA) Urine Ketones Urine Occult Blood Urine Nitrite Urine Bilirubin Urine Urobilinogen Ur Leukocyte Esterase Urine RBC Urine WBC Ur Squamous Epith Cells Urine Bacteria Urine Mucus MRSA (PCR) Negative POC Glucose 142 H 12/13/17 12/13/17 12/14/17 12:24 18:29 01:01 WBC RBC Hgb Hct MCV MCH MCHC RDW RDW Differential Plt Count MPV Immature Gran % (Auto) Neut % (Auto) Lymph % (Auto) [place] % (Auto) Eos % (Auto) Baso % (Auto) Absolute Neuts (auto) Absolute Lymphs (auto) Total Counted Platelet Estimate Anisocytosis Macrocytosis PT INR APTT Specimen Type Sample Site pH Bicarbonate Actual POC Total CO2 Base Excess O2 Saturation O2 % ABG pCO2 ABG pO2 [place] Test Respiration Rate O2 Delivery Device Minute Volume Vent Mode Tidal Volume POC PEEP Blood Gas Notified Whom Blood Gas Notified Time Sodium Potassium Chloride Carbon Dioxide Anion Gap BUN Creatinine Estim Creat Clear Calc Est GFR (MDRD) Af Amer Est GFR (MDRD) Non-Af BUN/Creatinine Ratio Glucose Lactic Acid Calcium Total Bilirubin AST ALT Alkaline Phosphatase Total Creatine Kinase Troponin I B-Natriuretic Peptide Total Protein Albumin Globulin Albumin/Globulin Ratio Triglycerides Urine Color Urine Clarity Urine pH Ur Specific [place] Urine Protein Urine Glucose (UA) Urine Ketones Urine Occult Blood Urine Nitrite Urine Bilirubin Urine Urobilinogen Ur Leukocyte Esterase Urine RBC Urine WBC Ur Squamous Epith Cells Urine Bacteria Urine Mucus MRSA (PCR) POC Glucose 90 95 100 12/14/17 12/14/17 12/14/17 04:20 04:20 05:55 WBC 8.3 RBC 3.65 L Hgb 10.4 L Hct 34.8 L MCV 95.3 H MCH 28.5 MCHC 29.9 L RDW 15.9 H RDW Differential 52.9 H Plt Count 220 MPV 9.7 Immature Gran % (Auto) 0.400 Neut % (Auto) 72.7 H Lymph % (Auto) 15.6 L [place] % (Auto) 6.9 Eos % (Auto) 4.2 Baso % (Auto) 0.2 Absolute Neuts (auto) 6.0 Absolute Lymphs (auto) 1.29 Total Counted Not Reportable Platelet Estimate Anisocytosis Macrocytosis PT INR APTT Specimen Type Sample Site pH Bicarbonate Actual POC Total CO2 Base Excess O2 Saturation O2 % ABG pCO2 ABG pO2 [place] Test Respiration Rate O2 Delivery Device Minute Volume Vent Mode Tidal Volume POC PEEP Blood Gas Notified Whom Blood Gas Notified Time Sodium 144 Potassium 3.5 Chloride 97 L Carbon Dioxide 42.0 H Anion Gap 5 BUN 23 H Creatinine 0.84 Estim Creat Clear Calc 91.61 Est GFR (MDRD) Af Amer 120 Est GFR (MDRD) Non-Af 99 BUN/Creatinine Ratio 27.3 H Glucose 101 Lactic Acid Calcium 8.3 L Total Bilirubin AST ALT Alkaline Phosphatase Total Creatine Kinase Troponin I B-Natriuretic Peptide Total Protein Albumin Globulin Albumin/Globulin Ratio Triglycerides Urine Color Urine Clarity Urine pH Ur Specific [place] Urine Protein Urine Glucose (UA) Urine Ketones Urine Occult Blood Urine Nitrite Urine Bilirubin Urine Urobilinogen Ur Leukocyte Esterase Urine RBC Urine WBC Ur Squamous Epith Cells Urine Bacteria Urine Mucus MRSA (PCR) POC Glucose 173 H Microbiology 12/13/17 06:50 Sputum, Induced/Lukens Gram Stain - Final 12/12/17 09:05 Urine Catheter - Catheter Urine Culture - Preliminary Culture exhibits no growth. 12/12/17 07:45 Sputum, Tracheal Aspirate Gram Stain - Final 12/12/17 07:45 Sputum, Tracheal Aspirate Respiratory Culture - Preliminary Appears to be normal respiratory laurel. Further studies to follow. 12/12/17 11:35 Mucosa - Nasopharyngeal Respiratory Panel (PCR) - Final Clinical Impression(s) from Imaging Studies Brain CT 12/12/17 07:34 IMPRESSION: No CT evidence of acute intracranial hemorrhage. Electronically Signed: Katya Wright MD at 8:54 EST , Service support , Chest X-Ray 12/12/17 07:40 IMPRESSION: Cardiomegaly and mild pulmonary congestion. Electronically Signed: Katya Wright MD at 8:02 EST , Service support , Medical Necessity - Tobacco Use Smoking Status: Current every day smoker Assessment/Plan All Active Problems (Last Updated 11/10/17 @ 12:14 by Brennon Maloney NP-C) Acute respiratory failure with hypoxia and hypercapnia (Acute) Pneumococcal pneumonia (Acute) Metabolic encephalopathy (Acute) Heart failure with reduced ejection fraction (Acute) Chest pain (Resolved) Respiratory failure, acute (Resolved) RECOMMENDATIONS: 1. Continue IV Lasix twice daily. 2. Obtain arterial blood gas, given rising bicarbonate. If normal, will add Diamox. 3. Continue current supportive measures with invasive mechanical ventilatory support. 4. Wean FiO2 and PEEP as tolerated. 5. Beta-lori can be restarted once the patient has been volume optimized. 6. Continue Zosyn, pending finalized infectious workup. 7. Continue tube feeds. 8. Continue bronchodilators as ordered. 9. Continue current sedation regimen with a goal to maintain a RASS of -1 to 1. 10. Continue appropriate ICU prophylaxis with subcutaneous heparin and Protonix. IMPRESSIONS: 1. Acute on chronic combined respiratory failure Likely secondary to decompensated heart failure in the setting of medical noncompliance, with superimposed bronchospastic airway disease and continued tobacco dependence likely contributing. While the patient appears to have normal systolic function on his most recent echocardiogram, I would certainly be concerned for the presence of underlying diastolic dysfunction. In addition, his weight is up significantly from that documented in November. The patient appears to be responding favorably to invasive mechanical ventilation and IV diuresis, with decreasing FiO2 requirements. The patient was started empirically on antibiotics early during his admission as he was noted to have spiked a fever. However, his infectious workup to date has been unrevealing. We will continue antibiotics for an additional 24 hours. If cultures remain negative tomorrow, antibiotics can be discontinued from my perspective. Continue scheduled bronchodilators and wean FiO2 and PEEP as tolerated. Would plan to keep the patient's oxygen saturations 88-92%, to prevent paradoxical CO2 retention. Continue current sedation regimen as ordered. Continue diuresis as ordered. 2. Metabolic encephalopathy Improved. Likely secondary to acute on chronic CO2 retention. Anticipate improvement with correction of the patient's underlying metabolic derangements. Minimize sedation as tolerated. 3. Decompensated heart failure/history of ischemic cardiomyopathy The patient's weight is significantly elevated when compared to that documented from November. IV diuretics will be continued accordingly. Restart the patient's beta-lori once he has been volume optimized. Initiate 1.5 L fluid restriction daily. 4. Diabetes mellitus Continue Accu-Cheks and sliding scale insulin coverage. The patient has been tolerant of tube feeds to date. 5. Obstructive sleep apnea The patient has a history of outpatient noncompliance with the use of nocturnal Pap therapy. He only utilizes supplemental oxygen on a nightly basis. 6. Ongoing tobacco dependence/super morbid obesity/history of medical noncompliance/hypertension Complicates care, management, recovery and prognosis. Nicotine replacement therapy can be utilized while admitted to the hospital. TIME: 38 minutes of critical care time, independent of procedures, was spent addressing the patient's acute on chronic combined respiratory failure, metabolic encephalopathy, decompensated heart failure, obstructive sleep apnea, review of all data and collaboration with the care team. ([id number]) Code Visit [id number]: [id number] Critical care first hour
--- NOTE | 2017-12-14 07:34 | NURSING ---
Mr. Anthony, pt's POA, brought in paperwork. given condition report. questions answered.
--- NOTE | 2017-12-14 08:51 | PCM.PN.CARD ---
Subjectve: Patient awake, alert, obeys commands. Diuresing nicely. Symmetry showed normal sinus rhythm with rare PVCs. Objective: Vital Signs Temp Pulse Resp BP Pulse Ox 99.4 F H 83 14 96/53 L 89 12/14/17 08:00 12/14/17 08:00 12/14/17 08:00 12/14/17 08:00 12/14/17 08:00 Oxygen Flow Rate (L/min) 70 Oxygen Delivery Method Mechanical Ventilator Weight: 353 lb 6.416 oz Body Mass Index (BMI) 55.5 Intake and Output for Last 24 Hours 12/12/17 12/13/17 12/14/17 23:59 23:59 23:59 Intake Total 1084 / 1084 1409.3 / 1409.3 413.2 / 413.2 Output Total 2550 / 2550 3265 / 3265 250 / 250 Balance -1466 / -1466 -1855.7 / -1855.7 163.2 / 163.2 Vascular: No Carotid Bruits, Normal Femoral Pulses, Normal Radial Pulses, Normal Dorsalis Pedal Pulse, Normal Posterior Tibial Pulses Abdomen: Bowel Sounds Present, Soft, Non Tender, No HSM, No Organomegaly Extremities: No Cyanosis, No Clubbing, No edema, Bilateral Edema +2 Neurological: No Focal Motor or Sensory Deficit 12/13/17 04:00: Triglycerides 149 12/14/17 04:20: WBC 8.3, RBC 3.65 L, Hgb 10.4 L, Hct 34.8 L, MCV 95.3 H, MCH 28.5, MCHC 29.9 L, RDW 15.9 H, RDW Differential 52.9 H, Plt Count 220, MPV 9.7, Immature Gran % (Auto) 0.400, Neut % (Auto) 72.7 H, Lymph % (Auto) 15.6 L, [place] % (Auto) 6.9, Eos % (Auto) 4.2, Baso % (Auto) 0.2, Absolute Neuts (auto) 6.0, Total Counted Not Reportable 12/14/17 04:20: Sodium 144, Potassium 3.5, Chloride 97 L, Carbon Dioxide 42.0 H, Anion Gap 5, BUN 23 H, Creatinine 0.84, Est GFR (MDRD) Af Amer 120, Est GFR (MDRD) Non-Af 99, BUN/Creatinine Ratio 27.3 H, Glucose 101, Calcium 8.3 L Rhythm: EKG: ECHO: Stress Test: Cardiac Cath: PCI: CT Surgery: Holter monitor: EPS: PPM: CXR: Chest CT Scan: Medical Necessity - Tobacco Use Smoking Status: Current every day smoker Assessment/Plan 1. Coronary artery disease: Patient has no significant troponin release despite having known coronary artery disease. He has a known occluded right coronary artery, with collateral from left to right, and is status post angioplasty and stenting to his LAD in 2012 and left circumflex in June 2017. Patient has had no malignant arrhythmias, and apparently presented with respiratory distress possibly due to pulmonary source of infection. He is being treated with broad-spectrum antibiotics and is on no pressor support at this time. Patient does have evidence of right-sided heart failure and unknown pulmonary pressures by echocardiogram on day of admission. His EF was estimated to be 60% although his imaging was technically difficult. He is currently undergoing diuresis with Lasix 80 mg IV twice daily to assist with decompressing his right side. Would recommend continuing IV diuresis for 1 more day even though his bicarb is increasing. Would consider adding Diamox 125 mg p.o. twice daily to assist with bicarbonate overload. At this point I would not recommend invasive evaluation such as a catheterization unless or until the patient has difficulty being weaned off the ventilator possibly due to coronary ischemia. Would recommend he continue his baby aspirin, Plavix, and hold his antihypertensives given his infection and hypotension. He has not required pressor agents at this time. 2. Obstructive sleep apnea: The patient is evidence of pulmonary hypertension and right-sided heart failure most likely result of obstructive sleep apnea. He is on chronic O2 therapy at home as well. Patient may be preload dependent so if his blood pressure deteriorates with IV diuresis, he may require discontinuation of IV diuretic therapy. 3. Hyperlipidemia: Continue statin based medications. 4. Thank you very much for the opportunity to participate in the cardiac care of your patient. Discussed with Dr. Denny. Code Visit Inpatient E&M: [id number] Subs Hosp L2
--- NOTE | 2017-12-14 09:36 | PCM.PN.HOSP ---
Subjective: Patient seen and examined. He remains intubated and sedated. He remains febrile and has had a low-grade fever overnight. He diuresed 3.26 L over the last 24 hours and is negative balance of about 1.85 L. Weight is down from 375 pounds in admission to 353 pounds. Patient is still intubated and sedated but is able to open his eyes in response to voice and nod or shake his head and respond to answers. He denies any headache, any chest pain, any fever chills, abdominal pain, any diarrhea vomiting. Review of systems otherwise negative. Vitals/I&O's: Vital Signs Temp Pulse Resp BP Pulse Ox 99.4 F H 83 14 96/53 L 89 12/14/17 08:00 12/14/17 08:00 12/14/17 08:00 12/14/17 08:00 12/14/17 08:00 Oxygen Flow Rate (L/min) 70 Oxygen Delivery Method Mechanical Ventilator Weight: 353 lb 6.416 oz Body Mass Index (BMI) 55.5 Intake and Output for Last 24 Hours 12/12/17 12/13/17 12/14/17 23:59 23:59 23:59 Intake Total 1084 / 1084 1409.3 / 1409.3 413.2 / 413.2 Output Total 2550 / 2550 3265 / 3265 250 / 250 Balance -1466 / -1466 -1855.7 / -1855.7 163.2 / 163.2 General: Alert, Cooperative HEENT: Atraumatic, PERRLA, EOMI, Normocephalic Oral: Moist Mucosa Neck: Supple, No JVD, Negative Carotid Bruits Lungs: No rhonchi, No wheeze, - - Still has few bibasilar crackles. Cardiovascular: Regular rate, Regular Rhythm, Normal S1, Normal S2, No murmurs Abdomen: Bowel Sounds Present, Soft, Non Tender, Non-Distended, No Hepato-splenomegaly Extremities: No clubbing, No cyanosis, Capillary Refill Less than 3 Seconds, - - Bilateral edema with erythema of extremities. No differential warmth. Skin: No rashes, No breakdown Musculoskeletal: No Tenderness to Palpation of Joints or Extremities Lymphatic: No Cervical, Supraclavicular, or Inguinal Adenopathy Neurological: - - Intubated. Sedated. RA SS score is 0. Psych/Mental Status: - - sedated. Calm and responsive to voice Microbiology Past 72 Hours 12/12/17 07:30 Blood Culture (Wb) - Anticubital Left Blood Culture - Preliminary No growth in 48 hours. 12/12/17 09:05 Urine Catheter - Catheter Urine Culture - Final Culture exhibits no growth. 12/13/17 06:50 Sputum, Induced/Lukens Gram Stain - Final 12/12/17 07:45 Sputum, Tracheal Aspirate Gram Stain - Final 12/12/17 07:45 Sputum, Tracheal Aspirate Respiratory Culture - Preliminary Appears to be normal respiratory laurel. Further studies to follow. 12/12/17 11:35 Mucosa - Nasopharyngeal Respiratory Panel (PCR) - Final Laboratory Results 12/13/17 04:00: Total Creatine Kinase 53, Triglycerides 149 12/13/17 07:45: MRSA (PCR) Negative 12/13/17 12:24: POC Glucose 90 12/13/17 18:29: POC Glucose 95 12/14/17 01:01: POC Glucose 100 12/14/17 04:20: WBC 8.3, RBC 3.65 L, Hgb 10.4 L, Hct 34.8 L, MCV 95.3 H, MCH 28.5, MCHC 29.9 L, RDW 15.9 H, RDW Differential 52.9 H, Plt Count 220, MPV 9.7, Immature Gran % (Auto) 0.400, Neut % (Auto) 72.7 H, Lymph % (Auto) 15.6 L, Dyer % (Auto) 6.9, Eos % (Auto) 4.2, Baso % (Auto) 0.2, Absolute Neuts (auto) 6.0, Absolute Lymphs (auto) 1.29, Total Counted Not Reportable 12/14/17 04:20: Sodium 144, Potassium 3.5, Chloride 97 L, Carbon Dioxide 42.0 H, Anion Gap 5, BUN 23 H, Creatinine 0.84, Estim Creat Clear Calc 91.61, Est GFR (MDRD) Af Amer 120, Est GFR (MDRD) Non-Af 99, BUN/Creatinine Ratio 27.3 H, Glucose 101, Calcium 8.3 L 12/14/17 05:55: POC Glucose 173 H Diagnostic Data Brain CT 11/05/18 07:34 IMPRESSION: No CT evidence of acute intracranial hemorrhage. Electronically Signed: Katya Wright MD at 8:54 EST , Service support , Chest X-Ray 12/12/17 07:40 IMPRESSION: Cardiomegaly and mild pulmonary congestion. Electronically Signed: Katya Wright MD at 8:02 EST , Service support , Current Medications Acetaminophen (Tylenol Liquid) 650 mg GT Q6H PRN PRN PRN Reason: FEVER Acetazolamide (Diamox) 125 mg PO BID JUANY Albuterol Sulfate (Ventolin Aerosols) 2.5 mg INHALATION Q6HWA.RT REPLACED BY [facility] Last Admin: 12/14/17 06:43 Dose: 2.5 mg Aspirin (Aspirin, Baby) 81 mg GT DAILY REPLACED BY [facility] Last Admin: 12/13/17 10:32 Dose: 81 mg Atorvastatin Calcium (Lipitor) 40 mg GT QHS JUANY Last Admin: 12/13/17 22:42 Dose: 40 mg Budesonide (Pulmicort Aerosol) 0.5 mg INHALATION Q12H.RT REPLACED BY [facility] Last Admin: 12/14/17 06:50 Dose: 0.5 mg Chlorhexidine Gluconate () 15 ml PO BID REPLACED BY [facility] Last Admin: 12/13/17 22:40 Dose: 15 ml Chlorhexidine Gluconate () 1 each TOPICAL DAILY REPLACED BY [facility] Last Admin: 12/14/17 05:23 Dose: 1 each Clopidogrel Bisulfate (Plavix) 75 mg GT DAILY REPLACED BY [facility] Last Admin: 12/13/17 10:32 Dose: 75 mg Dextrose (D50w Syringe) 0 gm IV X1 PRN; Protocol PRN Reason: Hypoglycemia Famotidine (Pepcid) 20 mg GT BID REPLACED BY [facility] Last Admin: 12/13/17 22:42 Dose: 20 mg Furosemide (Lasix) 80 mg IV BID@1000,1800 JUANY Last Admin: 12/13/17 18:32 Dose: 80 mg Glucagon () 1 mg IM .X1 PRN PRN Reason: Hypoglycemia Heparin Sodium (Porcine) (Heparin Na) 5,000 unit SC Q8 REPLACED BY [facility] Last Admin: 12/14/17 05:59 Dose: 5,000 unit Sodium Chloride () 250 mls @ 15 mls/hr IV .[id number] PRN PRN Reason: SALINE FLUSH Sodium Chloride () 250 mls @ 15 mls/hr IV .[id number] PRN PRN Reason: SALINE FLUSH Last Admin: 12/12/17 20:29 Dose: 15 mls/hr Fentanyl () 100 mls @ 5 mls/hr IV .Q20H JUANY Last Admin: 12/14/17 06:08 Dose: 5 mls/hr Piperacillin Sod/Tazobactam Sod (Zosyn) 3.375 gm in 50 mls @ 12.5 mls/hr IV Q8 JUANY Last Admin: 12/14/17 05:59 Dose: 12.5 mls/hr Propofol (Diprivan) 1,000 mg in 100 mls @ 9.852 mls/hr CONT INF .[id number] JUANY Last Admin: 12/14/17 02:43 Dose: 9.852 mls/hr Enteral Nutritional Formula (Glucerna 1.5) 1,000 mls @ 15 mls/hr GT .Q48H JUANY Last Admin: 12/13/17 18:30 Dose: 15 mls/hr Influenza Virus Vaccine Quadrival (Fluarix/Fluzone) 0.5 ml IM .ONCE ONE Stop: 12/16/17 10:01 Insulin Human Lispro (Humalog Kwikpen (Bkc)) 0 unit SQ Q6 JUANY; Protocol Last Admin: 12/14/17 05:58 Dose: 1 units Magnesium Hydroxide (Milk Of Magnesia) 30 ml PO DAILY PRN PRN PRN Reason: Constipation Polyethylene Glycol (Miralax) 17 gm GT BID JUANY Last Admin: 12/13/17 22:42 Dose: 17 gm Senna/Docusate Sodium (Senokot-S, Anne-Marie-Colace) 2 tablet GT BID JUANY Last Admin: 12/13/17 22:42 Dose: 2 tablet Sodium Chloride () 5 - 30 ml IV UD PRN PRN Reason: SALINE FLUSH Last Admin: 12/14/17 05:23 Dose: 20 ml Medical Necessity - Tobacco Use Smoking Status: Current every day smoker Assessment/Plan All Active Problems (Last Updated 11/10/17 @ 12:14 by Brennon H Roof, REAL ESTATE BRANCH MANAGER-C) Acute respiratory failure with hypoxia and hypercapnia (Acute) Pneumococcal pneumonia (Acute) Metabolic encephalopathy (Acute) Heart failure with reduced ejection fraction (Acute) Chest pain (Resolved) Respiratory failure, acute (Resolved) 1. Acute hypoxic and hyeprcarbic respiratory failure due to CHF exacerbation still intubated and sedated. on propofol and fentanyl for sedation. RASS score is 0 being diuresed with IV lasix; output over last 24 hours is 3.26L. in negative balance by 1.85 L last 24 hours. cardiology and pulmonology on board SBP remains in 90s systolic. vent settings as per practicing dermatologist on breathing treatments 2. ACute CHF exacerbation has history of ischemic cardiomyopathy last echo(06/24): EF of 50%, unable to assess diastolic function. Mild segmental systolic dysfunction.left atrium mildly enlarged. Unable to assess PA systolic pressure on IV lasix 80mg bid. echo: showed normal LV function, unable to quantify RVSP. EF was 60% 3. Sepsis, source of infection not clear has remained febrile. Has no leucocytosis, with white cell count of ~ 8,3 A on IV vancomycin and IV Zosyn. Urine cultures and blood cultures are pending. Sputum cultures also pending. Adjust antibiotics as per culture results. 4. Metabolic alkalosis Bicarb was steadily increased to 42 today. Unsure whether it is that he is retaining CO2 and this is compensatory or could be a contraction alkalosis from diuresis. Will monitor and if it persists, will back off of diuresis. 5. CAD: on aspirin and plavix as well as statin 6. Diabetes mellitus: on ISS. accuchecks q6 7. EMILIA: currently on ventilator due to respiratory failure 8. Hypertension: losartan and carvedilol on hold o/a of hypotension. 9;. MOrbid obesity: BMI >50. DVT prophylaxis: heparin GI prophylaxis: famotidine COde status: remains full code. 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 Code Visit Inpatient E&M: 43063 Subs Hosp L3
--- NOTE | 2017-12-14 09:40 | PN_ITS ---
Subjective: Patient seen and examined. He remains intubated and sedated. He remains febrile and has had a low-grade fever overnight. He diuresed 3.26 L over the last 24 hours and is negative balance of about 1.85 L. Weight is down from 375 pounds in admission to 353 pounds. Patient is still intubated and sedated but is able to open his eyes in response to voice and nod or shake his head and respond to answers. He denies any headache, any chest pain, any fever chills, abdominal pain, any diarrhea vomiting. Review of systems otherwise negative. Vitals/I&O's: Vital Signs Temp Pulse Resp BP Pulse Ox 99.4 F H 83 14 96/53 L 89 12/14/17 08:00 12/14/17 08:00 12/14/17 08:00 12/14/17 08:00 12/14/17 08:00 Oxygen Flow Rate (L/min) 70 Oxygen Delivery Method Mechanical Ventilator Weight: 353 lb 6.416 oz Body Mass Index (BMI) 55.5 Intake and Output for Last 24 Hours 12/12/17 12/13/17 12/14/17 23:59 23:59 23:59 Intake Total 1084 / 1084 1409.3 / 1409.3 413.2 / 413.2 Output Total 2550 / 2550 3265 / 3265 250 / 250 Balance -1466 / -1466 -1855.7 / -1855.7 163.2 / 163.2 General: Alert, Cooperative HEENT: Atraumatic, PERRLA, EOMI, Normocephalic Oral: Moist Mucosa Neck: Supple, No JVD, Negative Carotid Bruits Lungs: No rhonchi, No wheeze, - - Still has few bibasilar crackles. Cardiovascular: Regular rate, Regular Rhythm, Normal S1, Normal S2, No murmurs Abdomen: Bowel Sounds Present, Soft, Non Tender, Non-Distended, No Hepato- splenomegaly Extremities: No clubbing, No cyanosis, Capillary Refill Less than 3 Seconds, - - Bilateral edema with erythema of extremities. No differential warmth. Skin: No rashes, No breakdown Musculoskeletal: No Tenderness to Palpation of Joints or Extremities Lymphatic: No Cervical, Supraclavicular, or Inguinal Adenopathy Neurological: - - Intubated. Sedated. RA SS score is 0. Psych/Mental Status: - - sedated. Calm and responsive to voice Microbiology Past 72 Hours 12/12/17 07:30 Blood Culture (Wb) - Anticubital Left Blood Culture - Preliminary No growth in 48 hours. 12/12/17 09:05 Urine Catheter - Catheter Urine Culture - Final Culture exhibits no growth. 12/13/17 06:50 Sputum, Induced/Lukens Gram Stain - Final 12/12/17 07:45 Sputum, Tracheal Aspirate Gram Stain - Final 12/12/17 07:45 Sputum, Tracheal Aspirate Respiratory Culture - Preliminary Appears to be normal respiratory laurel. Further studies to follow. 12/12/17 11:35 Mucosa - Nasopharyngeal Respiratory Panel (PCR) - Final Laboratory Results 12/13/17 04:00: Total Creatine Kinase 53, Triglycerides 149 12/13/17 07:45: MRSA (PCR) Negative 12/13/17 12:24: POC Glucose 90 12/13/17 18:29: POC Glucose 95 12/14/17 01:01: POC Glucose 100 12/14/17 04:20: WBC 8.3, RBC 3.65 L, Hgb 10.4 L, Hct 34.8 L, MCV 95.3 H, MCH 28.5, MCHC 29.9 L, RDW 15.9 H, RDW Differential 52.9 H, Plt Count 220, MPV 9.7, Immature Gran % (Auto) 0.400, Neut % (Auto) 72.7 H, Lymph % (Auto) 15.6 L, [place] % (Auto) 6.9, Eos % (Auto) 4.2, Baso % (Auto) 0.2, Absolute Neuts (auto) 6.0, Absolute Lymphs (auto) 1.29, Total Counted Not Reportable 12/14/17 04:20: Sodium 144, Potassium 3.5, Chloride 97 L, Carbon Dioxide 42.0 H, Anion Gap 5, BUN 23 H, Creatinine 0.84, Estim Creat Clear Calc 91.61, Est GFR (MDRD) Af Amer 120, Est GFR (MDRD) Non-Af 99, BUN/Creatinine Ratio 27.3 H, Glucose 101, Calcium 8.3 L 12/14/17 05:55: POC Glucose 173 H Diagnostic Data Brain CT 11/05/18 07:34 IMPRESSION: No CT evidence of acute intracranial hemorrhage. Electronically Signed: Katya Wright MD at 8:54 EST , Service support , Chest X-Ray 12/12/17 07:40 IMPRESSION: Cardiomegaly and mild pulmonary congestion. Electronically Signed: Katya Wright MD at 8:02 EST , Service support , Current Medications Acetaminophen (Tylenol Liquid) 650 mg GT Q6H PRN PRN PRN Reason: FEVER Acetazolamide (Diamox) 125 mg PO BID JUANY Albuterol Sulfate (Ventolin Aerosols) 2.5 mg INHALATION Q6HWA.RT [facility] Last Admin: 12/14/17 06:43 Dose: 2.5 mg Aspirin (Aspirin, Baby) 81 mg GT DAILY [facility] Last Admin: 12/13/17 10:32 Dose: 81 mg Atorvastatin Calcium (Lipitor) 40 mg GT QHS [facility]UANY Last Admin: 12/13/17 22:42 Dose: 40 mg Budesonide (Pulmicort Aerosol) 0.5 mg INHALATION Q12H.RT [facility] Last Admin: 12/14/17 06:50 Dose: 0.5 mg Chlorhexidine Gluconate () 15 ml PO BID [facility] Last Admin: 12/13/17 22:40 Dose: 15 ml Chlorhexidine Gluconate () 1 each TOPICAL DAILY [facility] Last Admin: 12/14/17 05:23 Dose: 1 each Clopidogrel Bisulfate (Plavix) 75 mg GT DAILY [facility] Last Admin: 12/13/17 10:32 Dose: 75 mg Dextrose (D50w Syringe) 0 gm IV X1 PRN; Protocol PRN Reason: Hypoglycemia Famotidine (Pepcid) 20 mg GT BID [facility] Last Admin: 12/13/17 22:42 Dose: 20 mg Furosemide (Lasix) 80 mg IV BID@1000,1800 [facility] Last Admin: 12/13/17 18:32 Dose: 80 mg Glucagon () 1 mg IM .X1 PRN PRN Reason: Hypoglycemia Heparin Sodium (Porcine) (Heparin Na) 5,000 unit SC Q8 [facility] Last Admin: 12/14/17 05:59 Dose: 5,000 unit Sodium Chloride () 250 mls @ 15 mls/hr IV .[id number] PRN PRN Reason: SALINE FLUSH Sodium Chloride () 250 mls @ 15 mls/hr IV .[id number] PRN PRN Reason: SALINE FLUSH Last Admin: 12/12/17 20:29 Dose: 15 mls/hr Fentanyl () 100 mls @ 5 mls/hr IV .Q20H [facility]ANY Last Admin: 12/14/17 06:08 Dose: 5 mls/hr Piperacillin Sod/Tazobactam Sod (Zosyn) 3.375 gm in 50 mls @ 12.5 mls/hr IV Q8 [facility]ANY Last Admin: 12/14/17 05:59 Dose: 12.5 mls/hr Propofol (Diprivan) 1,000 mg in 100 mls @ 9.852 mls/hr CONT INF .[id number] [facility]UANY Last Admin: 12/14/17 02:43 Dose: 9.852 mls/hr Enteral Nutritional Formula (Glucerna 1.5) 1,000 mls @ 15 mls/hr GT .Q48H [facility]ANY Last Admin: 12/13/17 18:30 Dose: 15 mls/hr Influenza Virus Vaccine Quadrival (Fluarix/Fluzone) 0.5 ml IM .ONCE ONE Stop: 12/16/17 10:01 Insulin Human Lispro (Humalog Kwikpen (Bkc)) 0 unit SQ Q6 JUANY; Protocol Last Admin: 12/14/17 05:58 Dose: 1 units Magnesium Hydroxide (Milk Of Magnesia) 30 ml PO DAILY PRN PRN PRN Reason: Constipation Polyethylene Glycol (Miralax) 17 gm GT BID [facility]ANY Last Admin: 12/13/17 22:42 Dose: 17 gm Senna/Docusate Sodium (Senokot-S, Anne-Marie-Colace) 2 tablet GT BID [facility]ANY Last Admin: 12/13/17 22:42 Dose: 2 tablet Sodium Chloride () 5 - 30 ml IV UD PRN PRN Reason: SALINE FLUSH Last Admin: 12/14/17 05:23 Dose: 20 ml Medical Necessity - Tobacco Use Smoking Status: Current every day smoker Assessment/Plan All Active Problems (Last Updated 11/10/17 @ 12:14 by Brennon H Roof, GANDY DANCER-C) Acute respiratory failure with hypoxia and hypercapnia (Acute) Pneumococcal pneumonia (Acute) Metabolic encephalopathy (Acute) Heart failure with reduced ejection fraction (Acute) Chest pain (Resolved) Respiratory failure, acute (Resolved) 1. Acute hypoxic and hyeprcarbic respiratory failure due to CHF exacerbation * still intubated and sedated. * on propofol and fentanyl for sedation. RASS score is 0 * being diuresed with IV lasix; output over last 24 hours is 3.26L. in negative balance by 1.85 L last 24 hours. * cardiology and pulmonology on board * SBP remains in 90s systolic. * vent settings as per payroll bookkeeper * on breathing treatments * 2. ACute CHF exacerbation * has history of ischemic cardiomyopathy * last echo(06/24): EF of 50%, unable to assess diastolic function. Mild segmental systolic dysfunction.left atrium mildly enlarged. Unable to assess PA systolic pressure * on IV lasix 80mg bid. * echo: showed normal LV function, unable to quantify RVSP. EF was 60% * 3. Sepsis, source of infection not clear * has remained febrile. Has no leucocytosis, with white cell count of ~ 8,3 * A on IV vancomycin and IV Zosyn. Urine cultures and blood cultures are pending. Sputum cultures also pending. * Adjust antibiotics as per culture results. * 4. Metabolic alkalosis * Bicarb was steadily increased to 42 today. Unsure whether it is that he is retaining CO2 and this is compensatory or could be a contraction alkalosis from diuresis. * Will monitor and if it persists, will back off of diuresis. * 5. CAD: on aspirin and plavix as well as statin 6. Diabetes mellitus: on ISS. accuchecks q6 7. EMILIA: currently on ventilator due to respiratory failure 8. Hypertension: losartan and carvedilol on hold o/a of hypotension. 9;. MOrbid obesity: BMI >50. DVT prophylaxis: heparin GI prophylaxis: famotidine COde status: remains full code. 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 Code Visit Inpatient E&M: 38420 Subs Hosp L3
[2017-12-14 09:50] LABS: Base Excess 21 mmol/L (-2 to +2); Bicarbonate 45.6 mmol/L (22-26); Blood Gas Specimen Type ART; FI02 60; Mode A-C; O2 Delivery Device Vent; PEEP 8; PO2 51 mmHG (75-100); RR 14; SITE L Radial; SO2 84 % (95-99); Time Given 945; Total Carbon Dioxide 48 mmol/L; Vt 450; pCO2 73.2 mmHg (35-45)
[2017-12-14] MEDS: Chlorhexidine 15 ML PO ×2 (10:42→22:08)
[2017-12-14] MEDS: AcetaZOLAMIDE 250 MG Tablet 125 MG PO ×2 (10:44→21:56)
[2017-12-14] MEDS: Famotidine 20 MG Tablet GT ×2 (10:45→21:57)
[2017-12-14] MEDS: Clopidogrel Bisulfate 75 MG Tablet GT (10:45)
[2017-12-14] MEDS: Senna/Docusate Sodium 1 Tablet 2 TABLET GT ×2 (10:45→21:57)
[2017-12-14] MEDS: Polyethylene Glycol 3350 17 GM PACKET GT ×2 (10:45→21:57)
[2017-12-14] MEDS: Aspirin 81 MG TAB.CHEW GT (10:45)
[2017-12-14] MEDS: Furosemide 100 MG/10 ML Vial 80 MG IV ×2 (10:46→18:31)
--- NOTE | 2017-12-14 11:12 | CASEMGMT ---
RN CM Care Coordination Note: participated in ICU interdisciplinary rounds. Pt remains on ventilator, continuing Fluid restriction and tube feeds started yesterday. Cardiology on consult. PCP: Dr. Tio Parker Pharmacy: [facility] Retail listed, can verify when extubated. Living arrangements: lives @ [facility] Living Consult: for dc planning
--- NOTE | 2017-12-14 13:42 | CASEMGMT ---
Addendum entered by Renae Tesfaye 12/14/17 13:44: Also, LW/POA forms on chart, [facility] is pt's POA. BUDDY Cowart, JASSI Original Note: SW participated in ICU rounds this morning, pt remains on the ventilator. SW called [facility], message left. SW will continue to follow. BUDDY Cowart, JASSI
[2017-12-14 15:00] LABS: Bedside Glucose 126 mg/dL (70-110)
--- NOTE | 2017-12-14 18:20 | NURSING ---
teaching deferred until acute phase illness resolving and pt is able to comprehend.
[2017-12-14 18:41] LABS: Bedside Glucose 154 mg/dL (70-110)
[2017-12-14] MEDS: 0.9% NaCl IVPB Med Flush (250 mL) 15 ML IV (21:16)
[2017-12-14] MEDS: Atorvastatin Calcium 40 MG Tablet GT (21:57)
[2017-12-15] VITALS (36 sets, daily range): BP systolic 90–134; BP diastolic 45–71; PULSE 78–90; RESP 14–25; TEMP 37.1–37.8; O2SAT 80–98
[2017-12-15 00:21] LABS: Bedside Glucose 135 mg/dL (70-110)
[2017-12-15 04:35] LABS: Absolute Neutrophil Count 5.4 X10^3/uL (2.0-7.7); Basophil# 0.01 X10^3/uL; Basophil% 0.1 % (0-1); Eosinophil# 0.49 X10^3/uL; Eosinophils% 6.6 % (0-5); Hematocrit 35.8 % (40-54); Hemoglobin 10.4 g/dl (13.0-16.5); Lymphocyte % 13.5 % (19-41); Mean Corp Hgb Conc 29.1 g/gl (32-36); Mean Corpuscular Hgb 27.9 pg (27.0-32.0); Mean Platelet Vol. 9.4 fl (6.2-12.0); Monocyte# 0.51 X10^3/uL; Monocyte% 6.9 % (0-10); Neutrophil # 5.39 X10^3/uL (2.7-7.7); Neutrophil % 72.6 % (47-70); Platelet Count 239 K/mm3 (150-450); RBC Distribution Width CV 15.8 % (11.6-14.6); RBC Distribution Width SD 53.6 fl (35.1-43.9); Red Blood Count 3.73 M/mm3 (4.6-6.2); White Blood Count 7.4 K/mm3 (4.4-11.0)
[2017-12-15 04:37] LABS: POSITIVE COUNT NO; POSITIVE DIFFERENTIAL NO; POSITIVE MORPHOLOGY NO
[2017-12-15 04:52] LABS: Anion Gap 7 (5-15); BUN 22 mg/dL (7-18); BUN/Creat Ratio 28.1 RATIO (10-20); Calcium,Total 8.4 mg/dL (8.5-10.1); Chloride 98 mmol/L (98-107); Creatinine, Serum 0.78 mg/dL (0.70-1.30); EST Glomerular Filtration Rate 108 mL/min (>60); Est Glom Filt Rate - Afr Amer 130 mL/min (>60); Estimated Creatinine Clearance 98.65 ml/min; Glucose 129 mg/dL (74-106); Potassium 3.4 mmol/L (3.5-5.1); Sodium Level 143 mmol/L (136-145)
[2017-12-15 06:06] LABS: Bedside Glucose 136 mg/dL (70-110)
[2017-12-15] MEDS: Piperacil/Tazobactam 3.375 GM/50 ML ML IV ×3 (06:09→21:24)
[2017-12-15] MEDS: Heparin Injection (Vial) 5,000 UNIT/ML VIAL 5000 UNIT SC ×3 (06:09→21:26)
--- NOTE | 2017-12-15 06:34 | RAD_ITS ---
STUDY: X-RAY CHEST REASON FOR EXAM: Male, 57 years old. Intubation. TECHNIQUE: Single AP portable view of the chest. COMPARISON: Comparison is made with prior study dated December 12, 2012 at 7:39 AM. FINDINGS: An endotracheal tube is in situ. The tip is at 3.3 cm proximal to the byron. An enteric tube is seen with the tip below the left hemidiaphragm. EKG electrodes are seen. Persistent increased markings in both upper lobes as well as in the left lower lobe although there has been improvement as compared to prior study. Blunting of left costophrenic angle. There is mild cardiac enlargement. Normal mediastinum and marta. Normal visualized pulmonary arteries. Normal visualized aortic arch and descending thoracic aorta. There are diffuse degenerative changes of the visualized thoracic spine. Normal visualized ribs, clavicles, and shoulders. There is no demonstrated abnormality of the visualized soft tissue structures of the upper abdomen. RAD/Chest 1 View (Portable) IMPRESSION: All the support tubes are in good position. Residual increased markings in both lungs as described although there has been improvement as compared to prior study. Electronically Signed: Akhil Izquierdo MD at 11:07 EST Tel [phone], Service support ,
[2017-12-15] MEDS: Propofol 10MG/Ml 1,000 MG/100 ML Bottle 9.852 MG CONT INF ×2 (06:39→17:47)
--- NOTE | 2017-12-15 06:44 | PN_ITS ---
Subjective: The patient was seen and examined at the bedside this morning. Events from the last 24 hours have been reviewed. The patient is currently afebrile, hemodynamically stable and maintaining appropriate oxygen saturations with an FiO2 requirement of 65%. Although the patient continues to diurese, respiratory therapy has been unable to wean his FiO2 or PEEP. The patient was overall net - 1.3 L yesterday. He is now overall net -4.4 L for the admission. Objective: The patient's most recent lab work, culture data and imaging studies have all been personally reviewed. Respiratory viral panel was negative. Blood, urine and sputum cultures have all been negative to date. Surface echocardiogram revealed normal LV size and function with an ejection fraction of 60%. General: - - Remains intubated, sedated and mechanically ventilated. HEENT: Atraumatic, PERRLA, Normocephalic Oral: No Gingival or Mucosal Lesions/ Ulcerations Neck: Supple, No Nodes, Trachea Midline, - - Large neck circumference Lungs: No rhonchi, No wheeze, No rales, Diminished Cardiovascular: Regular rate, Regular Rhythm, Normal S1, Normal S2, No murmurs Abdomen: Bowel Sounds Present, Soft, Non Tender Extremities: No clubbing, No cyanosis, Edema Skin: - - No significant change from previous. Musculoskeletal: No Tenderness to Palpation of Joints or Extremities Lymphatic: No Cervical, Supraclavicular, or Inguinal Adenopathy Neurological: - - No focal neurological deficits. Minimally sedated. Will open eyes and follow some simple commands. Vital Signs Temp Pulse Resp BP Pulse Ox 37.5 C H 85 14 102/55 L 89 12/15/17 06:00 12/15/17 06:00 12/15/17 06:00 12/15/17 06:00 12/15/17 06:00 Oxygen Flow Rate (L/min) 70 Oxygen Delivery Method Mechanical Ventilator Weight: 350 lb 12.087 oz Body Mass Index (BMI) 55.5 Finger Stick Blood Glucose 135 Intake and Output for Last 24 Hours 12/13/17 12/14/17 12/15/17 23:59 23:59 23:59 Intake Total 1409.3 / 1409.3 1816.2 / 1816.2 966 / 966 Output Total 3265 / 3265 3100 / 3100 800 / 800 Balance -1855.7 / -1855.7 -1283.8 / -1283.8 166 / 166 Labs (Last 48 Hours) 12/13/17 12/13/17 12/13/17 04:00 07:45 12:24 WBC RBC Hgb Hct MCV MCH MCHC RDW RDW Differential Plt Count MPV Immature Gran % (Auto) Neut % (Auto) Lymph % (Auto) [place] % (Auto) Eos % (Auto) Baso % (Auto) Absolute Neuts (auto) Absolute Lymphs (auto) Total Counted Specimen Type Sample Site pH Bicarbonate Actual POC Total CO2 Base Excess O2 Saturation O2 % ABG pCO2 ABG pO2 [place] Test Respiration Rate O2 Delivery Device Minute Volume Vent Mode Tidal Volume POC PEEP Blood Gas Notified Whom Blood Gas Notified Time Sodium Potassium Chloride Carbon Dioxide Anion Gap BUN Creatinine Estim Creat Clear Calc Est GFR (MDRD) Af Amer Est GFR (MDRD) Non-Af BUN/Creatinine Ratio Glucose Calcium Total Creatine Kinase 53 Triglycerides 149 MRSA (PCR) Negative POC Glucose 90 12/13/17 12/14/17 12/14/17 18:29 01:01 04:20 WBC 8.3 RBC 3.65 L Hgb 10.4 L Hct 34.8 L MCV 95.3 H MCH 28.5 MCHC 29.9 L RDW 15.9 H RDW Differential 52.9 H Plt Count 220 MPV 9.7 Immature Gran % (Auto) 0.400 Neut % (Auto) 72.7 H Lymph % (Auto) 15.6 L [place] % (Auto) 6.9 Eos % (Auto) 4.2 Baso % (Auto) 0.2 Absolute Neuts (auto) 6.0 Absolute Lymphs (auto) 1.29 Total Counted Not Reportable Specimen Type Sample Site pH Bicarbonate Actual POC Total CO2 Base Excess O2 Saturation O2 % ABG pCO2 ABG pO2 [place] Test Respiration Rate O2 Delivery Device Minute Volume Vent Mode Tidal Volume POC PEEP Blood Gas Notified Whom Blood Gas Notified Time Sodium Potassium Chloride Carbon Dioxide Anion Gap BUN Creatinine Estim Creat Clear Calc Est GFR (MDRD) Af Amer Est GFR (MDRD) Non-Af BUN/Creatinine Ratio Glucose Calcium Total Creatine Kinase Triglycerides MRSA (PCR) POC Glucose 95 100 12/14/17 12/14/17 12/14/17 04:20 05:55 09:46 WBC RBC Hgb Hct MCV MCH MCHC RDW RDW Differential Plt Count MPV Immature Gran % (Auto) Neut % (Auto) Lymph % (Auto) [place] % (Auto) Eos % (Auto) Baso % (Auto) Absolute Neuts (auto) Absolute Lymphs (auto) Total Counted Specimen Type ART Sample Site L Radial pH 7.40 Bicarbonate Actual 45.6 H POC Total CO2 48 Base Excess 21 H O2 Saturation 84 L O2 % 60 ABG pCO2 73.2 H* ABG pO2 51 L [place] Test NA Respiration Rate 14 O2 Delivery Device Vent Minute Volume 8.00 Vent Mode A-C Tidal Volume 450 POC PEEP 8 Blood Gas Notified Whom ICU MD Blood Gas Notified Time 945 Sodium 144 Potassium 3.5 Chloride 97 L Carbon Dioxide 42.0 H Anion Gap 5 BUN 23 H Creatinine 0.84 Estim Creat Clear Calc 91.61 Est GFR (MDRD) Af Amer 120 Est GFR (MDRD) Non-Af 99 BUN/Creatinine Ratio 27.3 H Glucose 101 Calcium 8.3 L Total Creatine Kinase Triglycerides MRSA (PCR) POC Glucose 173 H 12/14/17 12/14/17 12/15/17 12:22 18:28 00:00 WBC RBC Hgb Hct MCV MCH MCHC RDW RDW Differential Plt Count MPV Immature Gran % (Auto) Neut % (Auto) Lymph % (Auto) [place] % (Auto) Eos % (Auto) Baso % (Auto) Absolute Neuts (auto) Absolute Lymphs (auto) Total Counted Specimen Type Sample Site pH Bicarbonate Actual POC Total CO2 Base Excess O2 Saturation O2 % ABG pCO2 ABG pO2 [place]as Test Respiration Rate O2 Delivery Device Minute Volume Vent Mode Tidal Volume POC PEEP Blood Gas Notified Whom Blood Gas Notified Time Sodium Potassium Chloride Carbon Dioxide Anion Gap BUN Creatinine Estim Creat Clear Calc Est GFR (MDRD) Af Amer Est GFR (MDRD) Non-Af BUN/Creatinine Ratio Glucose Calcium Total Creatine Kinase Triglycerides MRSA (PCR) POC Glucose 126 H 154 H 135 H 12/15/17 12/15/17 12/15/17 04:20 04:20 06:01 WBC 7.4 RBC 3.73 L Hgb 10.4 L Hct 35.8 L MCV 96.0 H MCH 27.9 MCHC 29.1 L RDW 15.8 H RDW Differential 53.6 H Plt Count 239 MPV 9.4 Immature Gran % (Auto) 0.300 Neut % (Auto) 72.6 H Lymph % (Auto) 13.5 L [place] % (Auto) 6.9 Eos % (Auto) 6.6 H Baso % (Auto) 0.1 Absolute Neuts (auto) 5.4 Absolute Lymphs (auto) 1.00 Total Counted Not Reportable Specimen Type Sample Site pH Bicarbonate Actual POC Total CO2 Base Excess O2 Saturation O2 % ABG pCO2 ABG pO2 [place] Test Respiration Rate O2 Delivery Device Minute Volume Vent Mode Tidal Volume POC PEEP Blood Gas Notified Whom Blood Gas Notified Time Sodium 143 Potassium 3.4 L Chloride 98 Carbon Dioxide 38.0 H Anion Gap 7 BUN 22 H Creatinine 0.78 Estim Creat Clear Calc 98.65 Est GFR (MDRD) Af Amer 130 Est GFR (MDRD) Non-Af 108 BUN/Creatinine Ratio 28.1 H Glucose 129 H Calcium 8.4 L Total Creatine Kinase Triglycerides MRSA (PCR) POC Glucose 136 H Microbiology 12/12/17 08:20 Blood Culture (Wb) - Anticubital Right Blood Culture - Preliminary No growth in 48 hours. 12/13/17 06:50 Sputum, Induced/[place] Gram Stain - Final 12/13/17 06:50 Sputum, Induced/[place] Respiratory Culture - Preliminary Culture exhibits no growth. 12/12/17 07:30 Blood Culture (Wb) - Anticubital Left Blood Culture - Preliminary No growth in 48 hours. 12/12/17 09:05 Urine Catheter - Catheter Urine Culture - Final Culture exhibits no growth. 12/12/17 07:45 Sputum, Tracheal Aspirate Gram Stain - Final 12/12/17 07:45 Sputum, Tracheal Aspirate Respiratory Culture - Preliminary Appears to be normal respiratory [place]urel. Further studies to follow. Clinical Impression(s) from Imaging Studies Brain CT 12/12/17 07:34 IMPRESSION: No CT evidence of acute intracranial hemorrhage. Electronically Signed: Katya Wright MD at 8:54 EST , Service support , Chest X-Ray 12/12/17 07:40 IMPRESSION: Cardiomegaly and mild pulmonary congestion. Electronically Signed: Katya Wright MD at 8:02 EST , Service support , Medical Necessity - Tobacco Use Smoking Status: Current every day smoker Assessment/Plan All Active Problems (Last Updated 11/10/17 @ 12:14 by Brennon Maloney NP-C) Acute respiratory failure with hypoxia and hypercapnia (Acute) Pneumococcal pneumonia (Acute) Metabolic encephalopathy (Acute) Heart failure with reduced ejection fraction (Acute) Chest pain (Resolved) Respiratory failure, acute (Resolved) RECOMMENDATIONS: 1. Continue IV Lasix twice daily. Continue Diamox as ordered. 2. Obtain plain film chest x-ray this morning. 3. Discontinue budesonide and start IV Solu-Medrol 40 mg every 6 hours. 4. Wean FiO2 as tolerated. Will empirically increase the patient's PEEP today to aid in the recruitment of any atelectatic lung. 5. Continue Zosyn 6. Continue tube feeds. 7. Continue bronchodilators as ordered. 8. Continue current sedation regimen with a goal to maintain a RASS of -1 to 1. 9. Continue appropriate ICU prophylaxis with subcutaneous heparin and Protonix. IMPRESSIONS: 1. Acute on chronic combined respiratory failure Likely secondary to decompensated heart failure in the setting of medical noncompliance, with superimposed bronchospastic airway disease and continued tobacco dependence likely contributing. While the patient appears to have normal systolic function on his most recent echocardiogram, I would certainly be concerned for the presence of underlying diastolic dysfunction. In addition, his weight is up significantly from that documented in November. The patient appears to be responding favorably to invasive mechanical ventilation and IV diuresis, with decreasing FiO2 requirements. The patient was started empirically on antibiotics early during his admission as he was noted to have spiked a fever. However, his infectious workup to date has been unrevealing. Continue scheduled bronchodilators and wean FiO2 as tolerated. In hopes of recruiting atelectatic lung, will increase the patient's PEEP today. Physical therapy to work with patient and get him out of bed. Would plan to keep the patient's oxygen saturations 88-92%, to prevent paradoxical CO2 retention. Continue current sedation regimen as ordered. Continue diuresis as ordered. 2. Metabolic encephalopathy Improved. Likely secondary to acute on chronic CO2 retention. Anticipate improvement with correction of the patient's underlying metabolic derangements. Minimize sedation as tolerated. 3. Decompensated heart failure/history of ischemic cardiomyopathy The patient's weight is significantly elevated when compared to that documented from November. IV diuretics will be continued accordingly. Restart the patient's beta-lori once he has been volume optimized. Initiate 1.5 L fluid restriction daily. 4. Diabetes mellitus Continue Accu-Cheks and sliding scale insulin coverage. The patient has been tolerant of tube feeds to date. 5. Obstructive sleep apnea The patient has a history of outpatient noncompliance with the use of nocturnal Pap therapy. He only utilizes supplemental oxygen on a nightly basis. 6. Ongoing tobacco dependence/super morbid obesity/history of medical noncompliance/hypertension Complicates care, management, recovery and prognosis. Nicotine replacement therapy can be utilized while admitted to the hospital. TIME: 42 minutes of critical care time, independent of procedures, was spent addressing the patient's acute on chronic combined respiratory failure, metabolic encephalopathy, decompensated heart failure, obstructive sleep apnea, review of all data and collaboration with the care team. ([id number]) Code Visit [id number]: [id number] Critical care first hour
[2017-12-15] MEDS: Albuterol 2.5 MG/3 ML VIAL.NEB. INHALATION ×3 (06:55→18:40)
[2017-12-15 07:18] LABS: Magnesium 2.7 mg/dL (1.6-2.6); Phosphorus 4.1 mg/dL (2.5-4.9)
--- NOTE | 2017-12-15 09:11 | PCM.PN.CARD ---
Subjectve: Patient intubated, sedated, on tube feeds, diuresing well. Chest x-ray improving slowly. Lower extremity edema improved but not resolved. Lower extremity cellulitis improved but not resolved. She showed normal sinus rhythm with rare ventricular bigeminy. Potassium infusing. Bicarbonate improving with Diamox therapy. Objective: Vital Signs Temp Pulse Resp BP Pulse Ox 99.9 F H 86 21 H 110/66 90 12/15/17 08:00 12/15/17 08:00 12/15/17 08:00 12/15/17 08:00 12/15/17 08:00 Oxygen Flow Rate (L/min) 70 Oxygen Delivery Method Mechanical Ventilator Weight: 350 lb 12.087 oz Body Mass Index (BMI) 55.5 Finger Stick Blood Glucose 135 Intake and Output for Last 24 Hours 12/13/17 12/14/17 12/15/17 23:59 23:59 23:59 Intake Total 1409.3 / 1409.3 1816.2 / 1816.2 996 / 996 Output Total 3265 / 3265 3100 / 3100 800 / 800 Balance -1855.7 / -1855.7 -1283.8 / -1283.8 196 / 196 General: Awake, Alert, Oriented x 3 HEENT: PERRL, EOMI, Sclera Non Icteric Neck: Supple, Good ROM, No Lymph Node Enlargement Lungs: Clear to auscultation Cardiovascular: Regular Rhythm, Normal S1, Normal S2, No Murmurs, No Rubs, No Gallops Vascular: No Carotid Bruits, Normal Femoral Pulses, Normal Radial Pulses, Normal Dorsalis Pedal Pulse, Normal Posterior Tibial Pulses Abdomen: Bowel Sounds Present, Soft, Non Tender, No HSM, No Organomegaly Extremities: No Cyanosis, No Clubbing, Bilateral Edema +2 Neurological: No Focal Motor or Sensory Deficit 12/14/17 09:46: pH 7.40, Bicarbonate Actual 45.6 H, POC Total CO2 48, Base Excess 21 H, O2 Saturation 84 L, ABG pCO2 73.2 H*, ABG pO2 51 L, [place]as Test NA 12/15/17 04:20: WBC 7.4, RBC 3.73 L, Hgb 10.4 L, Hct 35.8 L, MCV 96.0 H, MCH 27.9, MCHC 29.1 L, RDW 15.8 H, RDW Differential 53.6 H, Plt Count 239, MPV 9.4, Immature Gran % (Auto) 0.300, Neut % (Auto) 72.6 H, Lymph % (Auto) 13.5 L, [place] % (Auto) 6.9, Eos % (Auto) 6.6 H, Baso % (Auto) 0.1, Absolute Neuts (auto) 5.4, Total Counted Not Reportable 12/15/17 04:20: Sodium 143, Potassium 3.4 L, Chloride 98, Carbon Dioxide 38.0 H, Anion Gap 7, BUN 22 H, Creatinine 0.78, Est GFR (MDRD) Af Amer 130, Est GFR (MDRD) Non-Af 108, BUN/Creatinine Ratio 28.1 H, Glucose 129 H, Calcium 8.4 L 12/15/17 04:20: Phosphorus 4.1, Magnesium 2.7 H Rhythm: EKG: ECHO: Stress Test: Cardiac Cath: PCI: CT Surgery: Holter monitor: EPS: PPM: CXR: Chest CT Scan: Medical Necessity - Tobacco Use Smoking Status: Current every day smoker Assessment/Plan 1. Coronary artery disease: Patient has no significant troponin release despite having known coronary artery disease. He has a known occluded right coronary artery, with collateral from left to right, and is status post angioplasty and stenting to his LAD in 2012 and left circumflex in June 2017. Patient has had no malignant arrhythmias, and apparently presented with respiratory distress possibly due to pulmonary source of infection. He is being treated with broad-spectrum antibiotics and is on no pressor support at this time. Patient does have evidence of right-sided heart failure and unknown pulmonary pressures by echocardiogram on day of admission. His EF was estimated to be 60% although his imaging was technically difficult. He is currently undergoing diuresis with Lasix 80 mg IV twice daily to assist with decompressing his right side. Would recommend continuing IV diuresis for 1 more day. Patient's bicarbonate is normalizing with Diamox therapy. Recommend continuing Diamox therapy. Chest x-ray shows improved pulmonary edema, and his oxygen saturations are satisfactory. At this point I would not recommend invasive evaluation such as a catheterization unless or until the patient has difficulty being weaned off the ventilator possibly due to coronary ischemia. Would recommend he continue his baby aspirin, Plavix, and hold his antihypertensives given his infection and hypotension. He has not required pressor agents at this time. 2. Obstructive sleep apnea: The patient is evidence of pulmonary hypertension and right-sided heart failure most likely result of obstructive sleep apnea. He is on chronic O2 therapy at home as well. Patient may be preload dependent so if his blood pressure deteriorates with IV diuresis, he may require discontinuation of IV diuretic therapy. 3. Hyperlipidemia: Continue statin based medications. 4. Thank you very much for the opportunity to participate in the cardiac care of your patient.
--- NOTE | 2017-12-15 09:14 | PN.CARD_ITS ---
Subjectve: Patient intubated, sedated, on tube feeds, diuresing well. Chest x-ray improving slowly. Lower extremity edema improved but not resolved. Lower ext remity cellulitis improved but not resolved. She showed normal sinus rhythm with rare ventricular bigeminy. Potassium infusing. Bicarbonate improving with Diamox therapy. Objective: Vital Signs Temp Pulse Resp BP Pulse Ox 99.9 F H 86 21 H 110/66 90 12/15/17 08:00 12/15/17 08:00 12/15/17 08:00 12/15/17 08:00 12/15/17 08:00 Oxygen Flow Rate (L/min) 70 Oxygen Delivery Method Mechanical Ventilator Weight: 350 lb 12.087 oz Body Mass Index (BMI) 55.5 Finger Stick Blood Glucose 135 Intake and Output for Last 24 Hours 12/13/17 12/14/17 12/15/17 23:59 23:59 23:59 Intake Total 1409.3 / 1409.3 1816.2 / 1816.2 996 / 996 Output Total 3265 / 3265 3100 / 3100 800 / 800 Balance -1855.7 / -1855.7 -1283.8 / -1283.8 196 / 196 General: Awake, Alert, Oriented x 3 HEENT: PERRL, EOMI, Sclera Non Icteric Neck: Supple, Good ROM, No Lymph Node Enlargement Lungs: Clear to auscultation Cardiovascular: Regular Rhythm, Normal S1, Normal S2, No Murmurs, No Rubs, No Ga llops Vascular: No Carotid Bruits, Normal Femoral Pulses, Normal Radial Pulses, Normal Dorsalis Pedal Pulse, Normal Posterior Tibial Pulses Abdomen: Bowel Sounds Present, Soft, Non Tender, No HSM, No Organomegaly Extremities: No Cyanosis, No Clubbing, Bilateral Edema +2 Neurological: No Focal Motor or Sensory Deficit 12/14/17 09:46: pH 7.40, Bicarbonate Actual 45.6 H, POC Total CO2 48, Base Excess 21 H, O2 Saturation 84 L, ABG pCO2 73.2 H*, ABG pO2 51 L, [place] Test NA 12/15/17 04:20: WBC 7.4, RBC 3.73 L, Hgb 10.4 L, Hct 35.8 L, MCV 96.0 H, MCH 27.9, MCHC 29.1 L, RDW 15.8 H, RDW Differential 53.6 H, Plt Count 239, MPV 9.4, Immature Gran % (Auto) 0.300, Neut % (Auto) 72.6 H, Lymph % (Auto) 13.5 L, [place] % (Auto) 6.9, Eos % (Auto) 6.6 H, Baso % (Auto) 0.1, Absolute Neuts (auto) 5.4, Total Counted Not Reportable 12/15/17 04:20: Sodium 143, Potassium 3.4 L, Chloride 98, Carbon Dioxide 38.0 H, Anion Gap 7, BUN 22 H, Creatinine 0.78, Est GFR (MDRD) Af Amer 130, Est GFR (MDRD) Non-Af 108, BUN/Creatinine Ratio 28.1 H, Glucose 129 H, Calcium 8.4 L 12/15/17 04:20: Phosphorus 4.1, Magnesium 2.7 H Rhythm: EKG: ECHO: Stress Test: Cardiac Cath: PCI: CT Surgery: Holter monitor: EPS: PPM: CXR: Chest CT Scan: Medical Necessity - Tobacco Use Smoking Status: Current every day smoker Assessment/Plan 1. Coronary artery disease: Patient has no significant troponin release despite having known coronary artery disease. He has a known occluded right coronary artery, with collateral from left to right, and is status post angioplasty and stenting to his LAD in 2012 and left circumflex in June 2017. Patient has had no malignant arrhythmias, and apparently presented with respiratory distress possibly due to pulmonary source of infection. He is being treated with broad- spectrum antibiotics and is on no pressor support at this time. Patient does have evidence of right-sided heart failure and unknown pulmonary pressures by echocardiogram on day of admission. His EF was estimated to be 60% although his imaging was technically difficult. He is currently undergoing diuresis with Lasix 80 mg IV twice daily to assist with decompressing his right side. Would recommend continuing IV diuresis for 1 more day. Patient's bicarbonate is normalizing with Diamox therapy. Recommend continuing Diamox therapy. Chest x-ray shows improved pulmonary edema, and his oxygen saturations are satisfactory. At this point I would not recommend invasive evaluation such as a catheterization unless or until the patient has difficulty being weaned off the ventilator possibly due to coronary ischemia. Would recommend he continue his baby aspirin, Plavix, and hold his antihypertensives given his infection and hypotension. He has not required pressor agents at this time. 2. Obstructive sleep apnea: The patient is evidence of pulmonary hypertension and right-sided heart failure most likely result of obstructive sleep apnea. He is on chronic O2 therapy at home as well. Patient may be preload dependent so if his blood pressure deteriorates with IV diuresis, he may require discontinuation of IV diuretic therapy. 3. Hyperlipidemia: Continue statin based medications. 4. Thank you very much for the opportunity to participate in the cardiac care of your patient.
--- NOTE | 2017-12-15 09:38 | PCM.PN.HOSP ---
Subjective: Patient seen and examined. He remains intubated. He was alert and calm and watching TV. He was able to nod his head shake it in response to questions. He denied any fever or chills, any chest pain with pain, any diarrhea vomiting. Review of systems otherwise negative labs and vitals reviewed. Remains on IV Lasix. His total output was about 3.1 L over the last 24 hours and is negative balance by 1.28 L. Vitals/I&O's: Vital Signs Temp Pulse Resp BP Pulse Ox 99.9 F H 86 14 110/66 91 12/15/17 08:00 12/15/17 09:05 12/15/17 09:05 12/15/17 08:00 12/15/17 09:05 Oxygen Flow Rate (L/min) 70 Oxygen Delivery Method Mechanical Ventilator Weight: 350 lb 12.087 oz Body Mass Index (BMI) 55.5 Finger Stick Blood Glucose 135 Intake and Output for Last 24 Hours 12/13/17 12/14/17 12/15/17 23:59 23:59 23:59 Intake Total 1409.3 / 1409.3 1816.2 / 1816.2 996 / 996 Output Total 3265 / 3265 3100 / 3100 800 / 800 Balance -1855.7 / -1855.7 -1283.8 / -1283.8 196 / 196 General: Alert, Cooperative, - - intubated, on minimal amount of propofol; RASS score is 0 HEENT: Atraumatic, PERRLA, EOMI, Normocephalic Oral: Moist Mucosa Neck: Supple, No JVD, Negative Carotid Bruits Lungs: Normal air movement, - - still has coarse crackles in mid and lower lung vences bilaterally Cardiovascular: Regular rate, Regular Rhythm, Normal S1, Normal S2, No murmurs Abdomen: Bowel Sounds Present, Soft, Non Tender, Non-Distended, No Hepato-splenomegaly Extremities: No clubbing, No cyanosis, Capillary Refill Less than 3 Seconds, - - bilateral 2+ pitting pedal edema, with erythema over shins. No differential warmth Skin: No rashes, No breakdown Musculoskeletal: No Tenderness to Palpation of Joints or Extremities, No Muscle Wasting Lymphatic: No Cervical, Supraclavicular, or Inguinal Adenopathy Neurological: Cranial nerves II-XII grossly intact Psych/Mental Status: Normal Affect, - - intubated, on minimal sedation Microbiology Past 72 Hours 12/12/17 07:45 Sputum, Tracheal Aspirate Gram Stain - Final 12/12/17 07:45 Sputum, Tracheal Aspirate Respiratory Culture - Final Yeast 12/12/17 08:20 Blood Culture (Wb) - Anticubital Right Blood Culture - Preliminary No growth in 48 hours. 12/13/17 06:50 Sputum, Induced/Lukens Gram Stain - Final 12/13/17 06:50 Sputum, Induced/Lukens Respiratory Culture - Preliminary Culture exhibits no growth. 12/12/17 07:30 Blood Culture (Wb) - Anticubital Left Blood Culture - Preliminary No growth in 48 hours. 12/12/17 09:05 Urine Catheter - Catheter Urine Culture - Final Culture exhibits no growth. 12/12/17 11:35 Mucosa - Nasopharyngeal Respiratory Panel (PCR) - Final Laboratory Results 12/14/17 09:46: Specimen Type ART, Sample Site L Radial, pH 7.40, Bicarbonate Actual 45.6 H, POC Total CO2 48, Base Excess 21 H, O2 Saturation 84 L, O2 % 60, ABG pCO2 73.2 H*, ABG pO2 51 L, Salas Test NA, Respiration Rate 14, O2 Delivery Device Vent, Minute Volume 8.00, Vent Mode A-C, Tidal Volume 450, POC PEEP 8, Blood Gas Notified Whom ICU MD, Blood Gas Notified Time 945 12/14/17 12:22: POC Glucose 126 H 12/14/17 18:28: POC Glucose 154 H 12/15/17 00:00: POC Glucose 135 H 12/15/17 04:20: WBC 7.4, RBC 3.73 L, Hgb 10.4 L, Hct 35.8 L, MCV 96.0 H, MCH 27.9, MCHC 29.1 L, RDW 15.8 H, RDW Differential 53.6 H, Plt Count 239, MPV 9.4, Immature Gran % (Auto) 0.300, Neut % (Auto) 72.6 H, Lymph % (Auto) 13.5 L, [place] % (Auto) 6.9, Eos % (Auto) 6.6 H, Baso % (Auto) 0.1, Absolute Neuts (auto) 5.4, Absolute Lymphs (auto) 1.00, Total Counted Not Reportable 12/15/17 04:20: Sodium 143, Potassium 3.4 L, Chloride 98, Carbon Dioxide 38.0 H, Anion Gap 7, BUN 22 H, Creatinine 0.78, Estim Creat Clear Calc 98.65, Est GFR (MDRD) Af Amer 130, Est GFR (MDRD) Non-Af 108, BUN/Creatinine Ratio 28.1 H, Glucose 129 H, Calcium 8.4 L 12/15/17 04:20: Phosphorus 4.1, Magnesium 2.7 H 12/15/17 06:01: POC Glucose 136 H Diagnostic Data Brain CT 12/12/17 07:34 IMPRESSION: No CT evidence of acute intracranial hemorrhage. Electronically Signed: Katya Wright MD at 8:54 EST , Service support , Current Medications Acetaminophen (Tylenol Liquid) 650 mg GT Q6H PRN PRN PRN Reason: FEVER Acetazolamide (Diamox) 125 mg GT BID [facility] Albuterol Sulfate (Ventolin Aerosols) 2.5 mg INHALATION Q6HWA.RT [facility] Last Admin: 12/15/17 06:55 Dose: 2.5 mg Aspirin (Aspirin, Baby) 81 mg GT DAILY [facility] Last Admin: 12/14/17 10:45 Dose: 81 mg Atorvastatin Calcium (Lipitor) 40 mg GT QHS [facility] Last Admin: 12/14/17 21:57 Dose: 40 mg Chlorhexidine Gluconate () 15 ml PO BID [facility] Last Admin: 12/14/17 22:08 Dose: 15 ml Chlorhexidine Gluconate () 1 each TOPICAL DAILY [facility] Last Admin: 12/14/17 05:23 Dose: 1 each Clopidogrel Bisulfate (Plavix) 75 mg GT DAILY [facility] Last Admin: 12/14/17 10:45 Dose: 75 mg Dextrose (D50w Syringe) 0 gm IV X1 PRN; Protocol PRN Reason: Hypoglycemia Famotidine (Pepcid) 20 mg GT BID [facility] Last Admin: 12/14/17 21:57 Dose: 20 mg Furosemide (Lasix) 80 mg IV BID@1000,1800 [facility] Last Admin: 12/14/17 18:31 Dose: 80 mg Glucagon () 1 mg IM .X1 PRN PRN Reason: Hypoglycemia Heparin Sodium (Porcine) (Heparin Na) 5,000 unit SC Q8 [facility] Last Admin: 12/15/17 06:09 Dose: 5,000 unit Sodium Chloride () 250 mls @ 15 mls/hr IV .[id number] PRN PRN Reason: SALINE FLUSH Sodium Chloride () 250 mls @ 15 mls/hr IV .[id number] PRN PRN Reason: SALINE FLUSH Last Admin: 12/14/17 21:16 Dose: 15 mls/hr Fentanyl () 100 mls @ 5 mls/hr IV .Q20H [facility] Last Admin: 12/14/17 20:13 Dose: 5 mls/hr Piperacillin Sod/Tazobactam Sod (Zosyn) 3.375 gm in 50 mls @ 12.5 mls/hr IV Q8 [facility] Last Admin: 12/15/17 06:09 Dose: 12.5 mls/hr Propofol (Diprivan) 1,000 mg in 100 mls @ 9.852 mls/hr CONT INF .[id number] [facility] Last Admin: 12/15/17 06:39 Dose: 9.852 mls/hr Enteral Nutritional Formula (Glucerna 1.5) 1,000 mls @ 15 mls/hr GT .Q48H [facility] Last Admin: 12/13/17 18:30 Dose: 15 mls/hr Potassium Chloride (Kcl 10meq/100ml) 10 meq in 100 mls @ 100 mls/hr IV BOLUS Q1H [facility] Stop: 12/15/17 11:29 Last Admin: 12/15/17 09:31 Dose: 100 mls/hr Influenza Virus Vaccine Quadrival (Fluarix/Fluzone) 0.5 ml IM .ONCE ONE Stop: 12/16/17 10:01 Insulin Human Lispro (Humalog Kwikpen (Bkc)) 0 unit SQ Q6 [facility]; Protocol Last Admin: 12/15/17 06:12 Dose: Not Given Magnesium Citrate (Citrate Of Magnesia) 150 ml GT X1 ONE Stop: 12/15/17 11:01 Magnesium Citrate (Citrate Of Magnesia) 150 ml GT X1 ONE Stop: 12/15/17 14:01 Magnesium Hydroxide (Milk Of Magnesia) 30 ml PO DAILY PRN PRN PRN Reason: Constipation Methylprednisolone (Solu-Medrol) 40 mg IV Q6 [facility] Metolazone (Zaroxolyn) 5 mg GT X1 ONE Stop: 12/15/17 10:31 Polyethylene Glycol (Miralax) 17 gm GT BID [facility] Last Admin: 12/14/17 21:57 Dose: 17 gm Senna/Docusate Sodium (Senokot-S, Anne-Marie-Colace) 2 tablet GT BID [facility] Last Admin: 12/14/17 21:57 Dose: 2 tablet Sodium Chloride () 5 - 30 ml IV UD PRN PRN Reason: SALINE FLUSH Last Admin: 12/14/17 18:32 Dose: 10 ml Medical Necessity - Tobacco Use Smoking Status: Current every day smoker Assessment/Plan All Active Problems (Last Updated 11/10/17 @ 12:14 by Brennon Maloney NP-C) Acute respiratory failure with hypoxia and hypercapnia (Acute) Pneumococcal pneumonia (Acute) Metabolic encephalopathy (Acute) Heart failure with reduced ejection fraction (Acute) Chest pain (Resolved) Respiratory failure, acute (Resolved) 1. Acute hypoxic and hyeprcarbic respiratory failure due to CHF exacerbation still intubated and sedated. on minimal amounts of propofol for sedation. 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 ACute CHF exacerbation has history of ischemic cardiomyopathy last echo(06/24): EF of 50%, unable to assess diastolic function. Mild segmental systolic dysfunction.left atrium mildly enlarged. Unable to assess PA systolic pressure on IV lasix 80mg bid and metolazone echo: showed normal LV function, unable to quantify RVSP. EF was 60% 3. Sepsis, source of infection not clear Still has a low-grade fever. Still has no leukocytosis. remains on IV zosyn; vancomycin has been stopped Blood cultures showed no growth and respiratory panel also showed no growth. Urine culture was also negative. 4. Metabolic alkalosis Bicarb peaked at 42 Started on acetazolamide. bicarb now down to 39 5. Hypokalemia: potassium is 3.4. Replaced, will monitor 6. CAD: on aspirin and plavix as well as statin 7. Diabetes mellitus: on ISS. accuchecks q6 8. EMILIA: currently on ventilator due to respiratory failure 9. Hypertension: losartan and carvedilol on hold o/a of hypotension. 10;. MOrbid obesity: BMI >50. DVT prophylaxis: heparin GI prophylaxis: famotidine COde status: full code. Now has a healthcare POA- healthcare director of institutional giving. Code Visit Inpatient E&M: 26204 Subs Hosp L3
--- NOTE | 2017-12-15 09:43 | PN_ITS ---
Subjective: Patient seen and examined. He remains intubated. He was alert and calm and watching TV. He was able to nod his head shake it in response to questions. He denied any fever or chills, any chest pain with pain, any diarrhea vomiting. Review of systems otherwise negative labs and vitals reviewed. Remains on IV Lasix. His total output was about 3.1 L over the last 24 hours and is negative balance by 1.28 L. Vitals/I&O's: Vital Signs Temp Pulse Resp BP Pulse Ox 99.9 F H 86 14 110/66 91 12/15/17 08:00 12/15/17 09:05 12/15/17 09:05 12/15/17 08:00 12/15/17 09:05 Oxygen Flow Rate (L/min) 70 Oxygen Delivery Method Mechanical Ventilator Weight: 350 lb 12.087 oz Body Mass Index (BMI) 55.5 Finger Stick Blood Glucose 135 Intake and Output for Last 24 Hours 12/13/17 12/14/17 12/15/17 23:59 23:59 23:59 Intake Total 1409.3 / 1409.3 1816.2 / 1816.2 996 / 996 Output Total 3265 / 3265 3100 / 3100 800 / 800 Balance -1855.7 / -1855.7 -1283.8 / -1283.8 196 / 196 General: Alert, Cooperative, - - intubated, on minimal amount of propofol; RASS score is 0 HEENT: Atraumatic, PERRLA, EOMI, Normocephalic Oral: Moist Mucosa Neck: Supple, No JVD, Negative Carotid Bruits Lungs: Normal air movement, - - still has coarse crackles in mid and lower lung vences bilaterally Cardiovascular: Regular rate, Regular Rhythm, Normal S1, Normal S2, No murmurs Abdomen: Bowel Sounds Present, Soft, Non Tender, Non-Distended, No Hepato- splenomegaly Extremities: No clubbing, No cyanosis, Capillary Refill Less than 3 Seconds, - - bilateral 2+ pitting pedal edema, with erythema over shins. No differential warmth Skin: No rashes, No breakdown Musculoskeletal: No Tenderness to Palpation of Joints or Extremities, No Muscle Wasting Lymphatic: No Cervical, Supraclavicular, or Inguinal Adenopathy Neurological: Cranial nerves II-XII grossly intact Psych/Mental Status: Normal Affect, - - intubated, on minimal sedation Microbiology Past 72 Hours 12/12/17 07:45 Sputum, Tracheal Aspirate Gram Stain - Final 12/12/17 07:45 Sputum, Tracheal Aspirate Respiratory Culture - Final Yeast 12/12/17 08:20 Blood Culture (Wb) - Anticubital Right Blood Culture - Preliminary No growth in 48 hours. 12/13/17 06:50 Sputum, Induced/Lukens Gram Stain - Final 12/13/17 06:50 Sputum, Induced/Lukens Respiratory Culture - Preliminary Culture exhibits no growth. 12/12/17 07:30 Blood Culture (Wb) - Anticubital Left Blood Culture - Preliminary No growth in 48 hours. 12/12/17 09:05 Urine Catheter - Catheter Urine Culture - Final Culture exhibits no growth. 12/12/17 11:35 Mucosa - Nasopharyngeal Respiratory Panel (PCR) - Final Laboratory Results 12/14/17 09:46: Specimen Type ART, Sample Site L Radial, pH 7.40, Bicarbonate Actual 45.6 H, POC Total CO2 48, Base Excess 21 H, O2 Saturation 84 L, O2 % 60, ABG pCO2 73.2 H*, ABG pO2 51 L, Salas Test NA, Respiration Rate 14, O2 Delivery Device Vent, Minute Volume 8.00, Vent Mode A-C, Tidal Volume 450, POC PEEP 8, Blood Gas Notified Whom ICU MD, Blood Gas Notified Time 945 12/14/17 12:22: POC Glucose 126 H 12/14/17 18:28: POC Glucose 154 H 12/15/17 00:00: POC Glucose 135 H 12/15/17 04:20: WBC 7.4, RBC 3.73 L, Hgb 10.4 L, Hct 35.8 L, MCV 96.0 H, MCH 27.9, MCHC 29.1 L, RDW 15.8 H, RDW Differential 53.6 H, Plt Count 239, MPV 9.4, Immature Gran % (Auto) 0.300, Neut % (Auto) 72.6 H, Lymph % (Auto) 13.5 L, [place] % (Auto) 6.9, Eos % (Auto) 6.6 H, Baso % (Auto) 0.1, Absolute Neuts (auto) 5.4, Absolute Lymphs (auto) 1.00, Total Counted Not Reportable 12/15/17 04:20: Sodium 143, Potassium 3.4 L, Chloride 98, Carbon Dioxide 38.0 H, Anion Gap 7, BUN 22 H, Creatinine 0.78, Estim Creat Clear Calc 98.65, Est GFR (MDRD) Af Amer 130, Est GFR (MDRD) Non-Af 108, BUN/Creatinine Ratio 28.1 H, Glucose 129 H, Calcium 8.4 L 12/15/17 04:20: Phosphorus 4.1, Magnesium 2.7 H 12/15/17 06:01: POC Glucose 136 H Diagnostic Data Brain CT 12/12/17 07:34 IMPRESSION: No CT evidence of acute intracranial hemorrhage. Electronically Signed: Katya Wright MD at 8:54 EST , Service support , Current Medications Acetaminophen (Tylenol Liquid) 650 mg GT Q6H PRN PRN PRN Reason: FEVER Acetazolamide (Diamox) 125 mg GT BID [facility] Albuterol Sulfate (Ventolin Aerosols) 2.5 mg INHALATION Q6HWA.RT [facility] Last Admin: 12/15/17 06:55 Dose: 2.5 mg Aspirin (Aspirin, Baby) 81 mg GT DAILY [facility] Last Admin: 12/14/17 10:45 Dose: 81 mg Atorvastatin Calcium (Lipitor) 40 mg GT QHS [facility] Last Admin: 12/14/17 21:57 Dose: 40 mg Chlorhexidine Gluconate () 15 ml PO BID [facility] Last Admin: 12/14/17 22:08 Dose: 15 ml Chlorhexidine Gluconate () 1 each TOPICAL DAILY [facility] Last Admin: 12/14/17 05:23 Dose: 1 each Clopidogrel Bisulfate (Plavix) 75 mg GT DAILY [facility] Last Admin: 12/14/17 10:45 Dose: 75 mg Dextrose (D50w Syringe) 0 gm IV X1 PRN; Protocol PRN Reason: Hypoglycemia Famotidine (Pepcid) 20 mg GT BID [facility] Last Admin: 12/14/17 21:57 Dose: 20 mg Furosemide (Lasix) 80 mg IV BID@1000,1800 [facility] Last Admin: 12/14/17 18:31 Dose: 80 mg Glucagon () 1 mg IM .X1 PRN PRN Reason: Hypoglycemia Heparin Sodium (Porcine) (Heparin Na) 5,000 unit SC Q8 [facility] Last Admin: 12/15/17 06:09 Dose: 5,000 unit Sodium Chloride () 250 mls @ 15 mls/hr IV .[id number] PRN PRN Reason: SALINE FLUSH Sodium Chloride () 250 mls @ 15 mls/hr IV .[id number] PRN PRN Reason: SALINE FLUSH Last Admin: 12/14/17 21:16 Dose: 15 mls/hr Fentanyl () 100 mls @ 5 mls/hr IV .Q20H [facility] Last Admin: 12/14/17 20:13 Dose: 5 mls/hr Piperacillin Sod/Tazobactam Sod (Zosyn) 3.375 gm in 50 mls @ 12.5 mls/hr IV Q8 [facility] Last Admin: 12/15/17 06:09 Dose: 12.5 mls/hr Propofol (Diprivan) 1,000 mg in 100 mls @ 9.852 mls/hr CONT INF .[id number] [facility] Last Admin: 12/15/17 06:39 Dose: 9.852 mls/hr Enteral Nutritional Formula (Glucerna 1.5) 1,000 mls @ 15 mls/hr GT .Q48H [facility] Last Admin: 12/13/17 18:30 Dose: 15 mls/hr Potassium Chloride (Kcl 10meq/100ml) 10 meq in 100 mls @ 100 mls/hr IV BOLUS Q1H [facility] Stop: 12/15/17 11:29 Last Admin: 12/15/17 09:31 Dose: 100 mls/hr Influenza Virus Vaccine Quadrival (Fluarix/Fluzone) 0.5 ml IM .ONCE ONE Stop: 12/16/17 10:01 Insulin Human Lispro (Humalog Kwikpen (Bkc)) 0 unit SQ Q6 [facility]; Protocol Last Admin: 12/15/17 06:12 Dose: Not Given Magnesium Citrate (Citrate Of Magnesia) 150 ml GT X1 ONE Stop: 12/15/17 11:01 Magnesium Citrate (Citrate Of Magnesia) 150 ml GT X1 ONE Stop: 12/15/17 14:01 Magnesium Hydroxide (Milk Of Magnesia) 30 ml PO DAILY PRN PRN PRN Reason: Constipation Methylprednisolone (Solu-Medrol) 40 mg IV Q6 [facility] Metolazone (Zaroxolyn) 5 mg GT X1 ONE Stop: 12/15/17 10:31 Polyethylene Glycol (Miralax) 17 gm GT BID [facility] Last Admin: 12/14/17 21:57 Dose: 17 gm Senna/Docusate Sodium (Senokot-S, Anne-Marie-Colace) 2 tablet GT BID [facility] Last Admin: 12/14/17 21:57 Dose: 2 tablet Sodium Chloride () 5 - 30 ml IV UD PRN PRN Reason: SALINE FLUSH Last Admin: 12/14/17 18:32 Dose: 10 ml Medical Necessity - Tobacco Use Smoking Status: Current every day smoker Assessment/Plan All Active Problems (Last Updated 11/10/17 @ 12:14 by Brennon Maloney NP-C) Acute respiratory failure with hypoxia and hypercapnia (Acute) Pneumococcal pneumonia (Acute) Metabolic encephalopathy (Acute) Heart failure with reduced ejection fraction (Acute) Chest pain (Resolved) Respiratory failure, acute (Resolved) 1. Acute hypoxic and hyeprcarbic respiratory failure due to CHF exacerbation * still intubated and sedated. * on minimal amounts of propofol for sedation. RASS score is 0 * on IV lasix; in negative balance by 1.28L over last 24 hours * metolazone added on per cardiology * on breathing treatments * vent settings as per contact center assistant; still not ready for spontaneous breathing trial as his oxygen requirements are still high, in the 60s% * 2. ACute CHF exacerbation * has history of ischemic cardiomyopathy * last echo(06/24): EF of 50%, unable to assess diastolic function. Mild segmental systolic dysfunction.left atrium mildly enlarged. Unable to assess PA systolic pressure * on IV lasix 80mg bid and metolazone * echo: showed normal LV function, unable to quantify RVSP. EF was 60% * 3. Sepsis, source of infection not clear * Still has a low-grade fever. Still has no leukocytosis. * remains on IV zosyn; vancomycin has been stopped * Blood cultures showed no growth and respiratory panel also showed no growth. Urine culture was also negative. * * 4. Metabolic alkalosis * Bicarb peaked at 42 * Started on acetazolamide. * bicarb now down to 39 * 5. Hypokalemia: potassium is 3.4. Replaced, will monitor 6. CAD: on aspirin and plavix as well as statin 7. Diabetes mellitus: on ISS. accuchecks q6 8. EMILIA: currently on ventilator due to respiratory failure 9. Hypertension: losartan and carvedilol on hold o/a of hypotension. 10;. MOrbid obesity: BMI >50. DVT prophylaxis: heparin GI prophylaxis: famotidine COde status: full code. 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 Code Visit Inpatient E&M: 38970 Subs Hosp L3
--- NOTE | 2017-12-15 09:58 | CASEMGMT ---
MUKESH received a message back from [facility] yesterday, MUKESH called back this morning, spoke w/RN Kaye. MUKESH let Kaye know pt is still in ICU, on the ventilator, and it is yet to be determined whether or not pt will be able to return to [facility]. Updates faxed to [facility]. MUKESH will continue to follow. BUDDY Cowart, TRACK SERVICE WORKER
[2017-12-15] MEDS: Aspirin 81 MG TAB.CHEW GT (10:16)
[2017-12-15] MEDS: Furosemide 100 MG/10 ML Vial 80 MG IV ×2 (10:16→17:48)
[2017-12-15] MEDS: Chlorhexidine 15 ML PO ×2 (10:16→21:28)
[2017-12-15] MEDS: Polyethylene Glycol 3350 17 GM PACKET GT (10:17)
[2017-12-15] MEDS: Famotidine 20 MG Tablet GT ×2 (10:17→21:25)
[2017-12-15] MEDS: Clopidogrel Bisulfate 75 MG Tablet GT (10:17)
[2017-12-15] MEDS: Senna/Docusate Sodium 1 Tablet 2 TABLET GT (10:17)
[2017-12-15] MEDS: AcetaZOLAMIDE 250 MG Tablet 125 MG GT ×2 (10:18→21:25)
[2017-12-15] MEDS: Magnesium Citrate 300 ML 150 ML GT (11:25)
[2017-12-15] MEDS: metOLazone 5 MG Tablet GT (11:25)
[2017-12-15] MEDS: fentaNYL drip 100 ML 5 MCG IV (12:02)
[2017-12-15 12:35] LABS: Bedside Glucose 139 mg/dL (70-110)
[2017-12-15] MEDS: 0.9% NaCl Peripheral Flush Adult/Peds IV ×2 (15:51→17:57)
--- NOTE | 2017-12-15 17:10 | NURSING ---
education re chronic illness deferred till acute phase present illness resolving
[2017-12-15] MEDS: Insulin Lispro 100 UNIT/ML INSULN.PEN SQ (17:51)
[2017-12-15 19:21] LABS: Bedside Glucose 166 mg/dL (70-110)
[2017-12-15] MEDS: Atorvastatin Calcium 40 MG Tablet GT (21:25)
[2017-12-16] VITALS (35 sets, daily range): BP systolic 90–158; BP diastolic 41–88; PULSE 63–93; RESP 8–16; TEMP 36.6–37.9; O2SAT 88–94
[2017-12-16] MEDS: Propofol 10MG/Ml 1,000 MG/100 ML Bottle 9.852 MG CONT INF ×4 (01:10→23:37)
[2017-12-16] MEDS: fentaNYL drip 100 ML 5 MCG IV ×3 (01:10→22:42)
[2017-12-16] MEDS: Insulin Lispro 100 UNIT/ML INSULN.PEN SQ ×5 (01:29→23:47)
[2017-12-16] MEDS: 0.9% NaCl Peripheral Flush Adult/Peds IV (01:30)
[2017-12-16 01:36] LABS: Bedside Glucose 185 mg/dL (70-110)
[2017-12-16] MEDS: Piperacil/Tazobactam 3.375 GM/50 ML ML IV (05:37)
[2017-12-16] MEDS: Heparin Injection (Vial) 5,000 UNIT/ML VIAL 5000 UNIT SC ×3 (05:40→21:31)
[2017-12-16] MEDS: CHLORHEXIDINE GLUC 2% CLOTH 1 EACH TOWELETTE TOPICAL (05:42)
[2017-12-16 05:45] LABS: Absolute Lymphocyte Count 0.66 X10^3/ul (0.83-4.51); Absolute Neutrophil Count 6.4 X10^3/uL (2.0-7.7); Eosinophil# 0.01 X10^3/uL; Eosinophils% 0.1 % (0-5); Hematocrit 36.2 % (40-54); Lymphocyte # 0.66 X10^3/ul (4.0); Lymphocyte % 9.2 % (19-41); Mean Corp Hgb Conc 30.4 g/gl (32-36); Mean Corpuscular Hgb 28.6 pg (27.0-32.0); Mean Corpuscular Volume 94.3 fL (80-94); Mean Platelet Vol. 9.7 fl (6.2-12.0); Monocyte# 0.12 X10^3/uL; Monocyte% 1.7 % (0-10); Neutrophil # 6.38 X10^3/uL (2.7-7.7); Neutrophil % 88.9 % (47-70); Platelet Count 259 K/mm3 (150-450); RBC Distribution Width CV 14.9 % (11.6-14.6); RBC Distribution Width SD 49.6 fl (35.1-43.9); Red Blood Count 3.84 M/mm3 (4.6-6.2); White Blood Count 7.2 K/mm3 (4.4-11.0)
[2017-12-16 05:46] LABS: Bedside Glucose 246 mg/dL (70-110)
[2017-12-16 05:46] LABS: POSITIVE COUNT NO; POSITIVE DIFFERENTIAL NO; POSITIVE MORPHOLOGY NO
[2017-12-16 05:52] LABS: Anion Gap 5 (5-15); BUN 21 mg/dL (7-18); BUN/Creat Ratio 25.5 RATIO (10-20); Chloride 96 mmol/L (98-107); Creatinine, Serum 0.82 mg/dL (0.70-1.30); EST Glomerular Filtration Rate 102 mL/min (>60); Est Glom Filt Rate - Afr Amer 123 mL/min (>60); Estimated Creatinine Clearance 93.84 ml/min; Glucose 207 mg/dL (74-106); Potassium 3.4 mmol/L (3.5-5.1); Sodium Level 140 mmol/L (136-145)
[2017-12-16] MEDS: Albuterol 2.5 MG/3 ML VIAL.NEB. INHALATION ×3 (06:34→19:30)
--- NOTE | 2017-12-16 06:58 | PCM.PN.INT ---
Subjective: The patient was seen and examined at the bedside this morning. Events from the last 24 hours have been reviewed. The patient is currently afebrile, hemodynamically stable and maintaining appropriate oxygen saturations with an FiO2 requirement of 65%. Although the patient's PEEP was increased yesterday, his FiO2 has been unable to be weaned over the last 12 hours. The patient was previously diuresing well on IV Lasix but was noted to be overall net +795 mL's yesterday. He is now overall net -5.2 L for the admission. He denies the presence of pain. Objective: The patient's most recent lab work, culture data and imaging studies have all been personally reviewed. Respiratory viral panel was negative. Blood, urine and sputum cultures have all been negative to date. Surface echocardiogram revealed normal LV size and function with an ejection fraction of 60%. General: - - Remains intubated, minimally sedated and mechanically ventilated. HEENT: Atraumatic, PERRLA, Normocephalic Oral: No Gingival or Mucosal Lesions/ Ulcerations, - - Endotracheal and OG tubes remain in place. Neck: Supple, No Nodes, Trachea Midline Lungs: No rhonchi, No wheeze, Diminished, Rales Cardiovascular: Regular rate, Regular Rhythm, Normal S1, Normal S2, No murmurs Abdomen: Bowel Sounds Present, Soft, Non Tender, Obese Extremities: No clubbing, No cyanosis, Edema Skin: - - No significant change from previous. Musculoskeletal: No Tenderness to Palpation of Joints or Extremities, No Muscle Wasting Lymphatic: No Cervical, Supraclavicular, or Inguinal Adenopathy Neurological: - - No focal neurological deficits. Will arouse to verbal stimulation and follow simple commands. Psych/Mental Status: Anxious Vital Signs Temp Pulse Resp BP Pulse Ox 37.3 C H 84 16 126/76 H 92 12/16/17 06:00 12/16/17 06:00 12/16/17 06:00 12/16/17 06:00 12/16/17 06:00 Oxygen Flow Rate (L/min) 70 Oxygen Delivery Method Mechanical Ventilator Weight: 336 lb 10.334 oz Body Mass Index (BMI) 55.5 Finger Stick Blood Glucose 135 Intake and Output for Last 24 Hours 12/14/17 12/15/17 12/16/17 23:59 23:59 23:59 Intake Total 1816.2 / 1816.2 3845 / 3845 1256.8 / 1256.8 Output Total 3100 / 3100 3050 / 3050 2700 / 2700 Balance -1283.8 / -1283.8 795 / 795 -1443.2 / -1443.2 Labs (Last 48 Hours) 12/14/17 12/14/17 12/14/17 09:46 12:22 18:28 WBC RBC Hgb Hct MCV MCH MCHC RDW RDW Differential Plt Count MPV Immature Gran % (Auto) Neut % (Auto) Lymph % (Auto) [place] % (Auto) Eos % (Auto) Baso % (Auto) Absolute Neuts (auto) Absolute Lymphs (auto) Total Counted Specimen Type ART Sample Site L Radial pH 7.40 Bicarbonate Actual 45.6 H POC Total CO2 48 Base Excess 21 H O2 Saturation 84 L O2 % 60 ABG pCO2 73.2 H* ABG pO2 51 L Salas Test NA Respiration Rate 14 O2 Delivery Device Vent Minute Volume 8.00 Vent Mode A-C Tidal Volume 450 POC PEEP 8 Blood Gas Notified Whom ICU MD Blood Gas Notified Time 945 Sodium Potassium Chloride Carbon Dioxide Anion Gap BUN Creatinine Estim Creat Clear Calc Est GFR (MDRD) Af Amer Est GFR (MDRD) Non-Af BUN/Creatinine Ratio Glucose Calcium Phosphorus Magnesium POC Glucose 126 H 154 H 12/15/17 12/15/17 12/15/17 00:00 04:20 04:20 WBC 7.4 RBC 3.73 L Hgb 10.4 L Hct 35.8 L MCV 96.0 H MCH 27.9 MCHC 29.1 L RDW 15.8 H RDW Differential 53.6 H Plt Count 239 MPV 9.4 Immature Gran % (Auto) 0.300 Neut % (Auto) 72.6 H Lymph % (Auto) 13.5 L [place] % (Auto) 6.9 Eos % (Auto) 6.6 H Baso % (Auto) 0.1 Absolute Neuts (auto) 5.4 Absolute Lymphs (auto) 1.00 Total Counted Not Reportable Specimen Type Sample Site pH Bicarbonate Actual POC Total CO2 Base Excess O2 Saturation O2 % ABG pCO2 ABG pO2 Salas Test Respiration Rate O2 Delivery Device Minute Volume Vent Mode Tidal Volume POC PEEP Blood Gas Notified Whom Blood Gas Notified Time Sodium 143 Potassium 3.4 L Chloride 98 Carbon Dioxide 38.0 H Anion Gap 7 BUN 22 H Creatinine 0.78 Estim Creat Clear Calc 98.65 Est GFR (MDRD) Af Amer 130 Est GFR (MDRD) Non-Af 108 BUN/Creatinine Ratio 28.1 H Glucose 129 H Calcium 8.4 L Phosphorus Magnesium POC Glucose 135 H 12/15/17 12/15/17 12/15/17 04:20 06:01 12:32 WBC RBC Hgb Hct MCV MCH MCHC RDW RDW Differential Plt Count MPV Immature Gran % (Auto) Neut % (Auto) Lymph % (Auto) [place] % (Auto) Eos % (Auto) Baso % (Auto) Absolute Neuts (auto) Absolute Lymphs (auto) Total Counted Specimen Type Sample Site pH Bicarbonate Actual POC Total CO2 Base Excess O2 Saturation O2 % ABG pCO2 ABG pO2 Salas Test Respiration Rate O2 Delivery Device Minute Volume Vent Mode Tidal Volume POC PEEP Blood Gas Notified Whom Blood Gas Notified Time Sodium Potassium Chloride Carbon Dioxide Anion Gap BUN Creatinine Estim Creat Clear Calc Est GFR (MDRD) Af Amer Est GFR (MDRD) Non-Af BUN/Creatinine Ratio Glucose Calcium Phosphorus 4.1 Magnesium 2.7 H POC Glucose 136 H 139 H 12/15/17 12/16/17 12/16/17 17:50 01:28 05:22 WBC RBC Hgb Hct MCV MCH MCHC RDW RDW Differential Plt Count MPV Immature Gran % (Auto) Neut % (Auto) Lymph % (Auto) [place] % (Auto) Eos % (Auto) Baso % (Auto) Absolute Neuts (auto) Absolute Lymphs (auto) Total Counted Specimen Type Sample Site pH Bicarbonate Actual POC Total CO2 Base Excess O2 Saturation O2 % ABG pCO2 ABG pO2 Salas Test Respiration Rate O2 Delivery Device Minute Volume Vent Mode Tidal Volume POC PEEP Blood Gas Notified Whom Blood Gas Notified Time Sodium Potassium Chloride Carbon Dioxide Anion Gap BUN Creatinine Estim Creat Clear Calc Est GFR (MDRD) Af Amer Est GFR (MDRD) Non-Af BUN/Creatinine Ratio Glucose Calcium Phosphorus Magnesium POC Glucose 166 H 185 H 246 H 12/16/17 12/16/17 05:30 05:30 WBC 7.2 RBC 3.84 L Hgb 11.0 L Hct 36.2 L MCV 94.3 H MCH 28.6 MCHC 30.4 L RDW 14.9 H RDW Differential 49.6 H Plt Count 259 MPV 9.7 Immature Gran % (Auto) 0.100 Neut % (Auto) 88.9 H Lymph % (Auto) 9.2 L [place] % (Auto) 1.7 Eos % (Auto) 0.1 Baso % (Auto) 0.0 Absolute Neuts (auto) 6.4 Absolute Lymphs (auto) 0.66 L Total Counted Not Reportable Specimen Type Sample Site pH Bicarbonate Actual POC Total CO2 Base Excess O2 Saturation O2 % ABG pCO2 ABG pO2 Salas Test Respiration Rate O2 Delivery Device Minute Volume Vent Mode Tidal Volume POC PEEP Blood Gas Notified Whom Blood Gas Notified Time Sodium 140 Potassium 3.4 L Chloride 96 L Carbon Dioxide 39.0 H Anion Gap 5 BUN 21 H Creatinine 0.82 Estim Creat Clear Calc 93.84 Est GFR (MDRD) Af Amer 123 Est GFR (MDRD) Non-Af 102 BUN/Creatinine Ratio 25.5 H Glucose 207 H Calcium 9.0 Phosphorus Magnesium POC Glucose Microbiology 12/13/17 06:50 Sputum, Induced/Lukens Gram Stain - Final 12/13/17 06:50 Sputum, Induced/Lukens Respiratory Culture - Preliminary Culture exhibits no growth. 12/12/17 07:45 Sputum, Tracheal Aspirate Gram Stain - Final 12/12/17 07:45 Sputum, Tracheal Aspirate Respiratory Culture - Final Yeast 12/12/17 08:20 Blood Culture (Wb) - Anticubital Right Blood Culture - Preliminary No growth in 48 hours. 12/12/17 07:30 Blood Culture (Wb) - Anticubital Left Blood Culture - Preliminary No growth in 48 hours. 12/12/17 09:05 Urine Catheter - Catheter Urine Culture - Final Culture exhibits no growth. Clinical Impression(s) from Imaging Studies Brain CT 12/12/17 07:34 IMPRESSION: No CT evidence of acute intracranial hemorrhage. Electronically Signed: Katya Wright MD at 8:54 EST , Service support , Chest X-Ray 12/12/17 07:40 IMPRESSION: Cardiomegaly and mild pulmonary congestion. Electronically Signed: Katya Wright MD at 8:02 EST , Service support , Chest X-Ray 12/15/17 06:34 IMPRESSION: All the support tubes are in good position. Residual increased markings in both lungs as described although there has been improvement as compared to prior study. Electronically Signed: Akhil Izquierdo MD at 11:07 EST Tel [phone], Service support , Medical Necessity - Tobacco Use Smoking Status: Current every day smoker Assessment/Plan All Active Problems (Last Updated 11/10/17 @ 12:14 by Brennon Maloney, ORTHOPHOTOGRAPHY TECHNICIAN-C) Acute respiratory failure with hypoxia and hypercapnia (Acute) Pneumococcal pneumonia (Acute) Metabolic encephalopathy (Acute) Heart failure with reduced ejection fraction (Acute) Chest pain (Resolved) Respiratory failure, acute (Resolved) RECOMMENDATIONS: 1. Transition to continuous Lasix infusion today. Continue Diamox as ordered. 2. Continue IV Solu-Medrol 40 mg every 6 hours. 3. Wean FiO2 as tolerated. Continue increased PEEP to aid in the recruitment of any atelectatic lung. 4. Continue antibiotics with plans to transition to clindamycin to complete a total 7-day treatment course. 5. Continue tube feeds. 6. Continue bronchodilators as ordered. 7. Continue current sedation regimen with a goal to maintain a RASS of -1 to 1. 8. Continue appropriate ICU prophylaxis with subcutaneous heparin and Protonix. IMPRESSIONS: 1. Acute on chronic combined respiratory failure Likely secondary to decompensated heart failure in the setting of medical noncompliance, with superimposed bronchospastic airway disease and continued tobacco dependence likely contributing. While the patient appears to have normal systolic function on his most recent echocardiogram, I would certainly be concerned for the presence of underlying diastolic dysfunction. In addition, his weight is up significantly from that documented in November. The patient appears to be responding favorably to invasive mechanical ventilation and IV diuresis, with decreasing FiO2 requirements. The patient was started empirically on antibiotics early during his admission as he was noted to have spiked a fever. However, his infectious workup to date has been unrevealing. Continue scheduled bronchodilators and wean FiO2 as tolerated. In hopes of recruiting atelectatic lung, will continue the patient on increased PEEP settings. Physical therapy to work with patient and get him out of bed. Would plan to keep the patient's oxygen saturations 88-92%, to prevent paradoxical CO2 retention. Continue current sedation regimen as ordered. Will transition the patient from bolus of IV Lasix to continuous infusion. Scheduled potassium will also be started. 2. Metabolic encephalopathy Improved. Likely secondary to acute on chronic CO2 retention. Anticipate improvement with correction of the patient's underlying metabolic derangements. Minimize sedation as tolerated. 3. Decompensated heart failure/history of ischemic cardiomyopathy The patient's weight is significantly elevated when compared to that documented from November. Diuretics will be continued accordingly. Restart the patient's beta-lori once he has been volume optimized. Initiate 1.5 L fluid restriction daily. 4. Diabetes mellitus Continue Accu-Cheks and sliding scale insulin coverage. The patient has been tolerant of tube feeds to date. 5. Obstructive sleep apnea The patient has a history of outpatient noncompliance with the use of nocturnal Pap therapy. He only utilizes supplemental oxygen on a nightly basis. 6. Ongoing tobacco dependence/super morbid obesity/history of medical noncompliance/hypertension Complicates care, management, recovery and prognosis. Nicotine replacement therapy can be utilized while admitted to the hospital. TIME: 38 minutes of critical care time, independent of procedures, was spent addressing the patient's acute on chronic combined respiratory failure, metabolic encephalopathy, decompensated heart failure, obstructive sleep apnea, review of all data and collaboration with the care team. ([id number]) Code Visit 9xxxx: [id number] Critical care first hour
--- NOTE | 2017-12-16 07:01 | PN_ITS ---
Subjective: The patient was seen and examined at the bedside this morning. Events from the last 24 hours have been reviewed. The patient is currently afebrile, hemodynamically stable and maintaining appropriate oxygen saturations with an FiO2 requirement of 65%. Although the patient's PEEP was increased yesterday, his FiO2 has been unable to be weaned over the last 12 hours. The patient was previously diuresing well on IV Lasix but was noted to be overall net +795 mL's yesterday. He is now overall net -5.2 L for the admission. He denies the presence of pain. Objective: The patient's most recent lab work, culture data and imaging studies have all been personally reviewed. Respiratory viral panel was negative. Blood, urine and sputum cultures have all been negative to date. Surface echocardiogram revealed normal LV size and function with an ejection fraction of 60%. General: - - Remains intubated, minimally sedated and mechanically ventilated. HEENT: Atraumatic, PERRLA, Normocephalic Oral: No Gingival or Mucosal Lesions/ Ulcerations, - - Endotracheal and OG tubes remain in place. Neck: Supple, No Nodes, Trachea Midline Lungs: No rhonchi, No wheeze, Diminished, Rales Cardiovascular: Regular rate, Regular Rhythm, Normal S1, Normal S2, No murmurs Abdomen: Bowel Sounds Present, Soft, Non Tender, Obese Extremities: No clubbing, No cyanosis, Edema Skin: - - No significant change from previous. Musculoskeletal: No Tenderness to Palpation of Joints or Extremities, No Muscle Wasting Lymphatic: No Cervical, Supraclavicular, or Inguinal Adenopathy Neurological: - - No focal neurological deficits. Will arouse to verbal stimulation and follow simple commands. Psych/Mental Status: Anxious Vital Signs Temp Pulse Resp BP Pulse Ox 37.3 C H 84 16 126/76 H 92 12/16/17 06:00 12/16/17 06:00 12/16/17 06:00 12/16/17 06:00 12/16/17 06:00 Oxygen Flow Rate (L/min) 70 Oxygen Delivery Method Mechanical Ventilator Weight: 336 lb 10.334 oz Body Mass Index (BMI) 55.5 Finger Stick Blood Glucose 135 Intake and Output for Last 24 Hours 12/14/17 12/15/17 12/16/17 23:59 23:59 23:59 Intake Total 1816.2 / 1816.2 3845 / 3845 1256.8 / 1256.8 Output Total 3100 / 3100 3050 / 3050 2700 / 2700 Balance -1283.8 / -1283.8 795 / 795 -1443.2 / -1443.2 Labs (Last 48 Hours) 12/14/17 12/14/17 12/14/17 09:46 12:22 18:28 WBC RBC Hgb Hct MCV MCH MCHC RDW RDW Differential Plt Count MPV Immature Gran % (Auto) Neut % (Auto) Lymph % (Auto) [place] % (Auto) Eos % (Auto) Baso % (Auto) Absolute Neuts (auto) Absolute Lymphs (auto) Total Counted Specimen Type ART Sample Site L Radial pH 7.40 Bicarbonate Actual 45.6 H POC Total CO2 48 Base Excess 21 H O2 Saturation 84 L O2 % 60 ABG pCO2 73.2 H* ABG pO2 51 L Salas Test NA Respiration Rate 14 O2 Delivery Device Vent Minute Volume 8.00 Vent Mode A-C Tidal Volume 450 POC PEEP 8 Blood Gas Notified Whom ICU MD Blood Gas Notified Time 945 Sodium Potassium Chloride Carbon Dioxide Anion Gap BUN Creatinine Estim Creat Clear Calc Est GFR (MDRD) Af Amer Est GFR (MDRD) Non-Af BUN/Creatinine Ratio Glucose Calcium Phosphorus Magnesium POC Glucose 126 H 154 H 12/15/17 12/15/17 12/15/17 00:00 04:20 04:20 WBC 7.4 RBC 3.73 L Hgb 10.4 L Hct 35.8 L MCV 96.0 H MCH 27.9 MCHC 29.1 L RDW 15.8 H RDW Differential 53.6 H Plt Count 239 MPV 9.4 Immature Gran % (Auto) 0.300 Neut % (Auto) 72.6 H Lymph % (Auto) 13.5 L [place] % (Auto) 6.9 Eos % (Auto) 6.6 H Baso % (Auto) 0.1 Absolute Neuts (auto) 5.4 Absolute Lymphs (auto) 1.00 Total Counted Not Reportable Specimen Type Sample Site pH Bicarbonate Actual POC Total CO2 Base Excess O2 Saturation O2 % ABG pCO2 ABG pO2 Salas Test Respiration Rate O2 Delivery Device Minute Volume Vent Mode Tidal Volume POC PEEP Blood Gas Notified Whom Blood Gas Notified Time Sodium 143 Potassium 3.4 L Chloride 98 Carbon Dioxide 38.0 H Anion Gap 7 BUN 22 H Creatinine 0.78 Estim Creat Clear Calc 98.65 Est GFR (MDRD) Af Amer 130 Est GFR (MDRD) Non-Af 108 BUN/Creatinine Ratio 28.1 H Glucose 129 H Calcium 8.4 L Phosphorus Magnesium POC Glucose 135 H 12/15/17 12/15/17 12/15/17 04:20 06:01 12:32 WBC RBC Hgb Hct MCV MCH MCHC RDW RDW Differential Plt Count MPV Immature Gran % (Auto) Neut % (Auto) Lymph % (Auto) [place] % (Auto) Eos % (Auto) Baso % (Auto) Absolute Neuts (auto) Absolute Lymphs (auto) Total Counted Specimen Type Sample Site pH Bicarbonate Actual POC Total CO2 Base Excess O2 Saturation O2 % ABG pCO2 ABG pO2 Salas Test Respiration Rate O2 Delivery Device Minute Volume Vent Mode Tidal Volume POC PEEP Blood Gas Notified Whom Blood Gas Notified Time Sodium Potassium Chloride Carbon Dioxide Anion Gap BUN Creatinine Estim Creat Clear Calc Est GFR (MDRD) Af Amer Est GFR (MDRD) Non-Af BUN/Creatinine Ratio Glucose Calcium Phosphorus 4.1 Magnesium 2.7 H POC Glucose 136 H 139 H 12/15/17 12/16/17 12/16/17 17:50 01:28 05:22 WBC RBC Hgb Hct MCV MCH MCHC RDW RDW Differential Plt Count MPV Immature Gran % (Auto) Neut % (Auto) Lymph % (Auto) [place] % (Auto) Eos % (Auto) Baso % (Auto) Absolute Neuts (auto) Absolute Lymphs (auto) Total Counted Specimen Type Sample Site pH Bicarbonate Actual POC Total CO2 Base Excess O2 Saturation O2 % ABG pCO2 ABG pO2 Salas Test Respiration Rate O2 Delivery Device Minute Volume Vent Mode Tidal Volume POC PEEP Blood Gas Notified Whom Blood Gas Notified Time Sodium Potassium Chloride Carbon Dioxide Anion Gap BUN Creatinine Estim Creat Clear Calc Est GFR (MDRD) Af Amer Est GFR (MDRD) Non-Af BUN/Creatinine Ratio Glucose Calcium Phosphorus Magnesium POC Glucose 166 H 185 H 246 H 12/16/17 12/16/17 05:30 05:30 WBC 7.2 RBC 3.84 L Hgb 11.0 L Hct 36.2 L MCV 94.3 H MCH 28.6 MCHC 30.4 L RDW 14.9 H RDW Differential 49.6 H Plt Count 259 MPV 9.7 Immature Gran % (Auto) 0.100 Neut % (Auto) 88.9 H Lymph % (Auto) 9.2 L [place] % (Auto) 1.7 Eos % (Auto) 0.1 Baso % (Auto) 0.0 Absolute Neuts (auto) 6.4 Absolute Lymphs (auto) 0.66 L Total Counted Not Reportable Specimen Type Sample Site pH Bicarbonate Actual POC Total CO2 Base Excess O2 Saturation O2 % ABG pCO2 ABG pO2 Salas Test Respiration Rate O2 Delivery Device Minute Volume Vent Mode Tidal Volume POC PEEP Blood Gas Notified Whom Blood Gas Notified Time Sodium 140 Potassium 3.4 L Chloride 96 L Carbon Dioxide 39.0 H Anion Gap 5 BUN 21 H Creatinine 0.82 Estim Creat Clear Calc 93.84 Est GFR (MDRD) Af Amer 123 Est GFR (MDRD) Non-Af 102 BUN/Creatinine Ratio 25.5 H Glucose 207 H Calcium 9.0 Phosphorus Magnesium POC Glucose Microbiology 12/13/17 06:50 Sputum, Induced/Lukens Gram Stain - Final 12/13/17 06:50 Sputum, Induced/Lukens Respiratory Culture - Preliminary Culture exhibits no growth. 12/12/17 07:45 Sputum, Tracheal Aspirate Gram Stain - Final 12/12/17 07:45 Sputum, Tracheal Aspirate Respiratory Culture - Final Yeast 12/12/17 08:20 Blood Culture (Wb) - Anticubital Right Blood Culture - Preliminary No growth in 48 hours. 12/12/17 07:30 Blood Culture (Wb) - Anticubital Left Blood Culture - Preliminary No growth in 48 hours. 12/12/17 09:05 Urine Catheter - Catheter Urine Culture - Final Culture exhibits no growth. Clinical Impression(s) from Imaging Studies Brain CT 12/12/17 07:34 IMPRESSION: No CT evidence of acute intracranial hemorrhage. Electronically Signed: Katya Wright MD at 8:54 EST , Service support , Chest X-Ray 12/12/17 07:40 IMPRESSION: Cardiomegaly and mild pulmonary congestion. Electronically Signed: Katya Wright MD at 8:02 EST , Service support , Chest X-Ray 12/15/17 06:34 IMPRESSION: All the support tubes are in good position. Residual increased markings in both lungs as described although there has been improvement as compared to prior study. Electronically Signed: Ahkil Izquierdo MD at 11:07 EST Tel [phone], Service support , Medical Necessity - Tobacco Use Smoking Status: Current every day smoker Assessment/Plan All Active Problems (Last Updated 11/10/17 @ 12:14 by Brennon Maloney, INVESTOR RELATIONS DIRECTOR-C) Acute respiratory failure with hypoxia and hypercapnia (Acute) Pneumococcal pneumonia (Acute) Metabolic encephalopathy (Acute) Heart failure with reduced ejection fraction (Acute) Chest pain (Resolved) Respiratory failure, acute (Resolved) RECOMMENDATIONS: 1. Transition to continuous Lasix infusion today. Continue Diamox as ordered. 2. Continue IV Solu-Medrol 40 mg every 6 hours. 3. Wean FiO2 as tolerated. Continue increased PEEP to aid in the recruitment of any atelectatic lung. 4. Continue antibiotics with plans to transition to clindamycin to complete a total 7-day treatment course. 5. Continue tube feeds. 6. Continue bronchodilators as ordered. 7. Continue current sedation regimen with a goal to maintain a RASS of -1 to 1. 8. Continue appropriate ICU prophylaxis with subcutaneous heparin and Protonix. IMPRESSIONS: 1. Acute on chronic combined respiratory failure Likely secondary to decompensated heart failure in the setting of medical noncompliance, with superimposed bronchospastic airway disease and continued tobacco dependence likely contributing. While the patient appears to have normal systolic function on his most recent echocardiogram, I would certainly be concerned for the presence of underlying diastolic dysfunction. In addition, his weight is up significantly from that documented in November. The patient appears to be responding favorably to invasive mechanical ventilation and IV diuresis, with decreasing FiO2 requirements. The patient was started empirically on antibiotics early during his admission as he was noted to have spiked a fever. However, his infectious workup to date has been unrevealing. Continue scheduled bronchodilators and wean FiO2 as tolerated. In hopes of recruiting atelectatic lung, will continue the patient on increased PEEP settings. Physical therapy to work with patient and get him out of bed. Would plan to keep the patient's oxygen saturations 88-92%, to prevent paradoxical CO2 retention. Continue current sedation regimen as ordered. Will transition the patient from bolus of IV Lasix to continuous infusion. Scheduled potassium will also be started. 2. Metabolic encephalopathy Improved. Likely secondary to acute on chronic CO2 retention. Anticipate improvement with correction of the patient's underlying metabolic derangements. Minimize sedation as tolerated. 3. Decompensated heart failure/history of ischemic cardiomyopathy The patient's weight is significantly elevated when compared to that documented from November. Diuretics will be continued accordingly. Restart the patient's beta-lori once he has been volume optimized. Initiate 1.5 L fluid restriction daily. 4. Diabetes mellitus Continue Accu-Cheks and sliding scale insulin coverage. The patient has been t olerant of tube feeds to date. 5. Obstructive sleep apnea The patient has a history of outpatient noncompliance with the use of nocturnal Pap therapy. He only utilizes supplemental oxygen on a nightly basis. 6. Ongoing tobacco dependence/super morbid obesity/history of medical noncompliance/hypertension Complicates care, management, recovery and prognosis. Nicotine replacement therapy can be utilized while admitted to the hospital. TIME: 38 minutes of critical care time, independent of procedures, was spent ad dressing the patient's acute on chronic combined respiratory failure, metabolic encephalopathy, decompensated heart failure, obstructive sleep apnea, review of all data and collaboration with the care team. ([id number]) Code Visit 9xxxx: [id number] Critical care first hour
[2017-12-16] MEDS: Furosemide 500 MG in Empty Viaflex 50 mL 1 EACH CONT INF (08:10)
[2017-12-16] MEDS: Chlorhexidine 15 ML PO ×2 (08:34→21:49)
[2017-12-16] MEDS: Aspirin 81 MG TAB.CHEW GT (08:34)
[2017-12-16] MEDS: AcetaZOLAMIDE 250 MG Tablet 125 MG GT ×2 (08:35→21:30)
[2017-12-16] MEDS: Famotidine 20 MG Tablet GT ×2 (08:36→21:31)
[2017-12-16] MEDS: Clopidogrel Bisulfate 75 MG Tablet GT (08:36)
--- NOTE | 2017-12-16 09:26 | CASEMGMT ---
SW participated in interdisciplinary rounds. Patient remains on a vent. SW to continue to follow for d/c planning. Nyla FELTON MSW
--- NOTE | 2017-12-16 09:29 | PCM.PN.HOSP ---
Subjective: Patient seen and examined. Remains intubated and sedated. His oxygen requirements are still not coming down significantly and he did not 6 5% FiO2. Patient is now quite sedated and stretches her arm when called. Unable to do review of systems on account of him not been able to answer questions. He was started on Lasix drip per nursing executive. Review of systems otherwise negative. Per discussion with nurse, cardiology is considering whether to do a cath to see if the stents are still patent. Vitals/I&O's: Vital Signs Temp Pulse Resp BP Pulse Ox 99.2 F H 71 14 126/76 H 93 12/16/17 06:00 12/16/17 09:14 12/16/17 09:14 12/16/17 06:00 12/16/17 09:14 Oxygen Flow Rate (L/min) 70 Oxygen Delivery Method Mechanical Ventilator Weight: 336 lb 10.334 oz Body Mass Index (BMI) 55.5 Finger Stick Blood Glucose 135 Intake and Output for Last 24 Hours 12/14/17 12/15/17 12/16/17 23:59 23:59 23:59 Intake Total 1816.2 / 1816.2 3845 / 3845 1256.8 / 1256.8 Output Total 3100 / 3100 3050 / 3050 2700 / 2700 Balance -1283.8 / -1283.8 795 / 795 -1443.2 / -1443.2 General: - - still intubated, sedated.RASS score is +1 tp +2 HEENT: Atraumatic, PERRLA, EOMI, Normocephalic Oral: Moist Mucosa Neck: Supple, No JVD, Negative Carotid Bruits Lungs: - - still has coarse crackles in mid and lower lung vences Cardiovascular: Regular rate, Regular Rhythm, Normal S1, Normal S2, - - grade 2-3 systolic murmur loudest in the aortic region Abdomen: Bowel Sounds Present, Soft, Non Tender, Non-Distended, No Hepato-splenomegaly Extremities: No clubbing, No cyanosis, Edema - bilateral 2+ pitting pedal edema Skin: No rashes, No breakdown Musculoskeletal: No Tenderness to Palpation of Joints or Extremities Lymphatic: No Cervical, Supraclavicular, or Inguinal Adenopathy Neurological: Cranial nerves II-XII grossly intact, - - still intubated, sedated. RASS score is +1 to +2 Psych/Mental Status: Restless - on sedation with propofol and fentanyl Microbiology Past 72 Hours 12/13/17 06:50 Sputum, Induced/Lukens Gram Stain - Final 12/13/17 06:50 Sputum, Induced/Lukens Respiratory Culture - Preliminary Alpha Hemolytic Streptococcus 12/12/17 07:45 Sputum, Tracheal Aspirate Gram Stain - Final 12/12/17 07:45 Sputum, Tracheal Aspirate Respiratory Culture - Final Yeast 12/12/17 08:20 Blood Culture (Wb) - Anticubital Right Blood Culture - Preliminary No growth in 48 hours. 12/12/17 07:30 Blood Culture (Wb) - Anticubital Left Blood Culture - Preliminary No growth in 48 hours. 12/12/17 09:05 Urine Catheter - Catheter Urine Culture - Final Culture exhibits no growth. Laboratory Results 12/15/17 12:32: POC Glucose 139 H 12/15/17 17:50: POC Glucose 166 H 12/16/17 01:28: POC Glucose 185 H 12/16/17 05:22: POC Glucose 246 H 12/16/17 05:30: WBC 7.2, RBC 3.84 L, Hgb 11.0 L, Hct 36.2 L, MCV 94.3 H, MCH 28.6, MCHC 30.4 L, RDW 14.9 H, RDW Differential 49.6 H, Plt Count 259, MPV 9.7, Immature Gran % (Auto) 0.100, Neut % (Auto) 88.9 H, Lymph % (Auto) 9.2 L, [place] % (Auto) 1.7, Eos % (Auto) 0.1, Baso % (Auto) 0.0, Absolute Neuts (auto) 6.4, Absolute Lymphs (auto) 0.66 L, Total Counted Not Reportable 12/16/17 05:30: Sodium 140, Potassium 3.4 L, Chloride 96 L, Carbon Dioxide 39.0 H, Anion Gap 5, BUN 21 H, Creatinine 0.82, Estim Creat Clear Calc 93.84, Est GFR (MDRD) Af Amer 123, Est GFR (MDRD) Non-Af 102, BUN/Creatinine Ratio 25.5 H, Glucose 207 H, Calcium 9.[address] 12/12/17 07:34 IMPRESSION: No CT evidence of acute intracranial hemorrhage. Electronically Signed: Katya Wright MD at 8:54 EST , Service support , Chest X-Ray 12/15/17 06:34 IMPRESSION: All the support tubes are in good position. Residual increased markings in both lungs as described although there has been improvement as compared to prior study. Electronically Signed: Akhil Izquierdo MD at 11:07 EST Tel [phone], Service support , Current Medications Acetaminophen (Tylenol Liquid) 650 mg GT Q6H PRN PRN PRN Reason: FEVER Acetazolamide (Diamox) 125 mg GT BID [facility] Last Admin: 12/16/17 08:35 Dose: 125 mg Albuterol Sulfate (Ventolin Aerosols) 2.5 mg INHALATION Q6HWA.RT [facility] Last Admin: 12/16/17 06:34 Dose: 2.5 mg Aspirin (Aspirin, Baby) 81 mg GT DAILY [facility] Last Admin: 12/16/17 08:34 Dose: 81 mg Atorvastatin Calcium (Lipitor) 40 mg GT QHS [facility] Last Admin: 12/15/17 21:25 Dose: 40 mg Chlorhexidine Gluconate () 15 ml PO BID [facility] Last Admin: 12/16/17 08:34 Dose: 15 ml Chlorhexidine Gluconate () 1 each TOPICAL DAILY [facility] Last Admin: 12/16/17 05:42 Dose: 1 each Clopidogrel Bisulfate (Plavix) 75 mg GT DAILY [facility] Last Admin: 12/16/17 08:36 Dose: 75 mg Dextrose (D50w Syringe) 0 gm IV X1 PRN; Protocol PRN Reason: Hypoglycemia Famotidine (Pepcid) 20 mg GT BID [facility] Last Admin: 12/16/17 08:36 Dose: 20 mg Glucagon () 1 mg IM .X1 PRN PRN Reason: Hypoglycemia Heparin Sodium (Porcine) (Heparin Na) 5,000 unit SC Q8 [facility] Last Admin: 12/16/17 05:40 Dose: 5,000 unit Sodium Chloride () 250 mls @ 15 mls/hr IV .[id number] PRN PRN Reason: SALINE FLUSH Sodium Chloride () 250 mls @ 15 mls/hr IV .[id number] PRN PRN Reason: SALINE FLUSH Last Admin: 12/14/17 21:16 Dose: 15 mls/hr Fentanyl () 100 mls @ 5 mls/hr IV .Q20H [facility] Last Admin: 12/16/17 01:10 Dose: 5 mls/hr Propofol (Diprivan) 1,000 mg in 100 mls @ 9.852 mls/hr CONT INF .[id number] [facility] Last Admin: 12/16/17 01:10 Dose: 9.852 mls/hr Enteral Nutritional Formula (Glucerna 1.5) 1,000 mls @ 15 mls/hr GT .Q48H [facility] Last Admin: 12/15/17 17:47 Dose: 15 mls/hr Furosemide 500 mg/ N/A 50 mls @ 2 mls/hr CONT INF .Q25H [facility] Last Admin: 12/16/17 08:10 Dose: 2 mls/hr Clindamycin Phosphate 600 mg/ (Dextrose) 54 mls @ 100 mls/hr IV Q8 [facility] Stop: 12/18/17 22:33 Influenza Virus Vaccine Quadrival (Fluarix/Fluzone) 0.5 ml IM .ONCE ONE Stop: 12/16/17 10:01 Last Admin: 12/16/17 08:37 Dose: Not Given Insulin Human Lispro (Humalog Kwikpen (Bkc)) 0 unit SQ Q6 [facility]; Protocol Last Admin: 12/16/17 05:39 Dose: 3 units Magnesium Hydroxide (Milk Of Magnesia) 30 ml PO DAILY PRN PRN PRN Reason: Constipation Methylprednisolone (Solu-Medrol) 40 mg IV Q6 [facility] Last Admin: 12/16/17 05:38 Dose: 40 mg Polyethylene Glycol (Miralax) 17 gm GT BID [facility] Last Admin: 12/16/17 08:37 Dose: Not Given Potassium Bicarb/Potassium Chloride (Potassium Chl 25 Meq Eff (For Liquid)) 50 meq GT X1 ONE Stop: 12/16/17 10:01 Potassium Bicarb/Potassium Chloride (Potassium Chl 25 Meq Eff (For Liquid)) 25 meq GT BID JUANY Senna/Docusate Sodium (Senokot-S, Anne-Marie-Colace) 2 tablet GT BID [facility] Last Admin: 12/16/17 08:37 Dose: Not Given Sodium Chloride () 5 - 30 ml IV UD PRN PRN Reason: SALINE FLUSH Last Admin: 12/16/17 01:30 Dose: 10 ml Medical Necessity - Tobacco Use Smoking Status: Current every day smoker Assessment/Plan All Active Problems (Last Updated 11/10/17 @ 12:14 by Brennon Maloney, CALENDERING SUPERVISOR-C) Acute respiratory failure with hypoxia and hypercapnia (Acute) Pneumococcal pneumonia (Acute) Metabolic encephalopathy (Acute) Heart failure with reduced ejection fraction (Acute) Chest pain (Resolved) Respiratory failure, acute (Resolved) 1. Acute hypoxic and hyeprcarbic respiratory failure due to CHF exacerbation still intubated and sedated. unable to wean off of oxygen Urine output over last 24 hours was 3 L was positive by 7 9 5 minutes yesterday. Has put out 2.7 L so far today. His weight has decreased by about 30 pounds since admission. IV Lasix drip now and also metolazone. Breathing treatments. Remains intubated and sedated and RASS score is +1-+2. on minimal amounts of propofol for sedation. RASS score is 0 vent settings as per nursing executive; still not ready for spontaneous breathing trial as his oxygen requirements are still high, in the 60s% 2. ACute diastolic CHF exacerbation has history of ischemic cardiomyopathy now on lasix drip and metolazone on IV lasix 80mg bid and metolazone echo: showed normal LV function, unable to quantify RVSP. EF was 60% 3. Sepsis, source of infection not clear he is still febrile, but has no leucocytosis remains on IV zosyn; vancomycin has been stopped Blood cultures showed no growth and respiratory panel also showed no growth. Urine culture was also negative. 4. Metabolic alkalosis Bicarb peaked at 42 on acetazolamide bicarb still 49 5. Hypokalemia: potassium still 3.4. Replaced, will monitor 6. CAD: on aspirin and plavix as well as statin 7. Diabetes mellitus: on ISS. accuchecks q6 8. EMILIA: currently on ventilated due to respiratory failure 9. Hypertension: losartan and carvedilol on hold o/a of hypotension. 10;. MOrbid obesity: BMI >50. DVT prophylaxis: heparin GI prophylaxis: famotidine COde status: full code. IRWIN is his healthcare collaborative teacher. Code Visit Inpatient E&M: 39740 Subs Hosp L3
--- NOTE | 2017-12-16 09:36 | PN_ITS ---
Subjective: Patient seen and examined. Remains intubated and sedated. His oxygen requirements are still not coming down significantly and he did not 6 5% FiO2. Patient is now quite sedated and stretches her arm when called. Unable to do review of systems on account of him not been able to answer questions. He was started on Lasix drip per apprenticeship consultant. Review of systems otherwise negative. Per discussion with nurse, cardiology is considering whether to do a cath to see if the stents are still patent. Vitals/I&O's: Vital Signs Temp Pulse Resp BP Pulse Ox 99.2 F H 71 14 126/76 H 93 12/16/17 06:00 12/16/17 09:14 12/16/17 09:14 12/16/17 06:00 12/16/17 09:14 Oxygen Flow Rate (L/min) 70 Oxygen Delivery Method Mechanical Ventilator Weight: 336 lb 10.334 oz Body Mass Index (BMI) 55.5 Finger Stick Blood Glucose 135 Intake and Output for Last 24 Hours 12/14/17 12/15/17 12/16/17 23:59 23:59 23:59 Intake Total 1816.2 / 1816.2 3845 / 3845 1256.8 / 1256.8 Output Total 3100 / 3100 3050 / 3050 2700 / 2700 Balance -1283.8 / -1283.8 795 / 795 -1443.2 / -1443.2 General: - - still intubated, sedated.RASS score is +1 tp +2 HEENT: Atraumatic, PERRLA, EOMI, Normocephalic Oral: Moist Mucosa Neck: Supple, No JVD, Negative Carotid Bruits Lungs: - - still has coarse crackles in mid and lower lung vences Cardiovascular: Regular rate, Regular Rhythm, Normal S1, Normal S2, - - grade 2- 3 systolic murmur loudest in the aortic region Abdomen: Bowel Sounds Present, Soft, Non Tender, Non-Distended, No Hepato- splenomegaly Extremities: No clubbing, No cyanosis, Edema - bilateral 2+ pitting pedal edema Skin: No rashes, No breakdown Musculoskeletal: No Tenderness to Palpation of Joints or Extremities Lymphatic: No Cervical, Supraclavicular, or Inguinal Adenopathy Neurological: Cranial nerves II-XII grossly intact, - - still intubated, sedated. RASS score is +1 to +2 Psych/Mental Status: Restless - on sedation with propofol and fentanyl Microbiology Past 72 Hours 12/13/17 06:50 Sputum, Induced/Lukens Gram Stain - Final 12/13/17 06:50 Sputum, Induced/Lukens Respiratory Culture - Preliminary Alpha Hemolytic Streptococcus 12/12/17 07:45 Sputum, Tracheal Aspirate Gram Stain - Final 12/12/17 07:45 Sputum, Tracheal Aspirate Respiratory Culture - Final Yeast 12/12/17 08:20 Blood Culture (Wb) - Anticubital Right Blood Culture - Preliminary No growth in 48 hours. 12/12/17 07:30 Blood Culture (Wb) - Anticubital Left Blood Culture - Preliminary No growth in 48 hours. 12/12/17 09:05 Urine Catheter - Catheter Urine Culture - Final Culture exhibits no growth. Laboratory Results 12/15/17 12:32: POC Glucose 139 H 12/15/17 17:50: POC Glucose 166 H 12/16/17 01:28: POC Glucose 185 H 12/16/17 05:22: POC Glucose 246 H 12/16/17 05:30: WBC 7.2, RBC 3.84 L, Hgb 11.0 L, Hct 36.2 L, MCV 94.3 H, MCH 28 .6, MCHC 30.4 L, RDW 14.9 H, RDW Differential 49.6 H, Plt Count 259, MPV 9.7, Immature Gran % (Auto) 0.100, Neut % (Auto) 88.9 H, Lymph % (Auto) 9.2 L, [place] % (Auto) 1.7, Eos % (Auto) 0.1, Baso % (Auto) 0.0, Absolute Neuts (auto) 6.4, Absolute Lymphs (auto) 0.66 L, Total Counted Not Reportable 12/16/17 05:30: Sodium 140, Potassium 3.4 L, Chloride 96 L, Carbon Dioxide 39.0 H, Anion Gap 5, BUN 21 H, Creatinine 0.82, Estim Creat Clear Calc 93.84, Est GFR (MDRD) Af Amer 123, Est GFR (MDRD) Non-Af 102, BUN/Creatinine Ratio 25.5 H, Glucose 207 H, Calcium 9.[address] 12/12/17 07:34 IMPRESSION: No CT evidence of acute intracranial hemorrhage. Electronically Signed: Katya Wright MD at 8:54 EST , Service support , Chest X-Ray 12/15/17 06:34 IMPRESSION: All the support tubes are in good position. Residual increased markings in both lungs as described although there has been improvement as compared to prior study. Electronically Signed: Akhil Izquierdo MD at 11:07 EST Tel [phone], Service support , Current Medications Acetaminophen (Tylenol Liquid) 650 mg GT Q6H PRN PRN PRN Reason: FEVER Acetazolamide (Diamox) 125 mg GT BID [facility] Last Admin: 12/16/17 08:35 Dose: 125 mg Albuterol Sulfate (Ventolin Aerosols) 2.5 mg INHALATION Q6HWA.RT [facility] Last Admin: 12/16/17 06:34 Dose: 2.5 mg Aspirin (Aspirin, Baby) 81 mg GT DAILY [facility] Last Admin: 12/16/17 08:34 Dose: 81 mg Atorvastatin Calcium (Lipitor) 40 mg GT QHS [facility] Last Admin: 12/15/17 21:25 Dose: 40 mg Chlorhexidine Gluconate () 15 ml PO BID [facility] Last Admin: 12/16/17 08:34 Dose: 15 ml Chlorhexidine Gluconate () 1 each TOPICAL DAILY [facility] Last Admin: 12/16/17 05:42 Dose: 1 each Clopidogrel Bisulfate (Plavix) 75 mg GT DAILY [facility] Last Admin: 12/16/17 08:36 Dose: 75 mg Dextrose (D50w Syringe) 0 gm IV X1 PRN; Protocol PRN Reason: Hypoglycemia Famotidine (Pepcid) 20 mg GT BID [facility] Last Admin: 12/16/17 08:36 Dose: 20 mg Glucagon () 1 mg IM .X1 PRN PRN Reason: Hypoglycemia Heparin Sodium (Porcine) (Heparin Na) 5,000 unit SC Q8 [facility] Last Admin: 12/16/17 05:40 Dose: 5,000 unit Sodium Chloride () 250 mls @ 15 mls/hr IV .[id number] PRN PRN Reason: SALINE FLUSH Sodium Chloride () 250 mls @ 15 mls/hr IV .[id number] PRN PRN Reason: SALINE FLUSH Last Admin: 12/14/17 21:16 Dose: 15 mls/hr Fentanyl () 100 mls @ 5 mls/hr IV .Q20H [facility] Last Admin: 12/16/17 01:10 Dose: 5 mls/hr Propofol (Diprivan) 1,000 mg in 100 mls @ 9.852 mls/hr CONT INF .[id number] [facility] Last Admin: 12/16/17 01:10 Dose: 9.852 mls/hr Enteral Nutritional Formula (Glucerna 1.5) 1,000 mls @ 15 mls/hr GT .Q48H [facility] Last Admin: 12/15/17 17:47 Dose: 15 mls/hr Furosemide 500 mg/ N/A 50 mls @ 2 mls/hr CONT INF .Q25H [facility] Last Admin: 12/16/17 08:10 Dose: 2 mls/hr Clindamycin Phosphate 600 mg/ (Dextrose) 54 mls @ 100 mls/hr IV Q8 [facility] Stop: 12/18/17 22:33 Influenza Virus Vaccine Quadrival (Fluarix/Fluzone) 0.5 ml IM .ONCE ONE Stop: 12/16/17 10:01 Last Admin: 12/16/17 08:37 Dose: Not Given Insulin Human Lispro (Humalog Kwikpen (Bkc)) 0 unit SQ Q6 [facility]; Protocol Last Admin: 12/16/17 05:39 Dose: 3 units Magnesium Hydroxide (Milk Of Magnesia) 30 ml PO DAILY PRN PRN PRN Reason: Constipation Methylprednisolone (Solu-Medrol) 40 mg IV Q6 [facility] Last Admin: 12/16/17 05:38 Dose: 40 mg Polyethylene Glycol (Miralax) 17 gm GT BID [facility] Last Admin: 12/16/17 08:37 Dose: Not Given Potassium Bicarb/Potassium Chloride (Potassium Chl 25 Meq Eff (For Liquid)) 50 meq GT X1 ONE Stop: 12/16/17 10:01 Potassium Bicarb/Potassium Chloride (Potassium Chl 25 Meq Eff (For Liquid)) 25 meq GT BID JUANY Senna/Docusate Sodium (Senokot-S, Anne-Marie-Colace) 2 tablet GT BID [facility] Last Admin: 12/16/17 08:37 Dose: Not Given Sodium Chloride () 5 - 30 ml IV UD PRN PRN Reason: SALINE FLUSH Last Admin: 12/16/17 01:30 Dose: 10 ml Medical Necessity - Tobacco Use Smoking Status: Current every day smoker Assessment/Plan All Active Problems (Last Updated 11/10/17 @ 12:14 by Brennon Maloney, ROLLER HAND-C) Acute respiratory failure with hypoxia and hypercapnia (Acute) Pneumococcal pneumonia (Acute) Metabolic encephalopathy (Acute) Heart failure with reduced ejection fraction (Acute) Chest pain (Resolved) Respiratory failure, acute (Resolved) 1. Acute hypoxic and hyeprcarbic respiratory failure due to CHF exacerbation * still intubated and sedated. unable to wean off of oxygen * Urine output over last 24 hours was 3 L was positive by 7 9 5 minutes yesterday. Has put out 2.7 L so far today. His weight has decreased by about 30 pounds since admission. * IV Lasix drip now and also metolazone. * Breathing treatments. * Remains intubated and sedated and RASS score is +1-+2. * on minimal amounts of propofol for sedation. RASS score is 0 * vent settings as per apprenticeship consultant; still not ready for spontaneous breathing trial as his oxygen requirements are still high, in the 60s% * 2. ACute diastolic CHF exacerbation * has history of ischemic cardiomyopathy * now on lasix drip and metolazone * on IV lasix 80mg bid and metolazone * echo: showed normal LV function, unable to quantify RVSP. EF was 60% * 3. Sepsis, source of infection not clear * he is still febrile, but has no leucocytosis * remains on IV zosyn; vancomycin has been stopped * Blood cultures showed no growth and respiratory panel also showed no growth. Urine culture was also negative. * * 4. Metabolic alkalosis * Bicarb peaked at 42 * on acetazolamide * bicarb still 49 * 5. Hypokalemia: potassium still 3.4. Replaced, will monitor 6. CAD: on aspirin and plavix as well as statin 7. Diabetes mellitus: on ISS. accuchecks q6 8. EMILIA: currently on ventilated due to respiratory failure 9. Hypertension: losartan and carvedilol on hold o/a of hypotension. 10;. MOrbid obesity: BMI >50. DVT prophylaxis: heparin GI prophylaxis: famotidine COde status: full code. IRWIN is his healthcare timber sprinkler. Code Visit Inpatient E&M: 89394 Subs Hosp L3
[2017-12-16 11:30] LABS: Bedside Glucose 238 mg/dL (70-110)
--- NOTE | 2017-12-16 11:59 | NURSING ---
reintubated per dr rubin # 7.5 color change 25 @ lip , og reinserted
--- NOTE | 2017-12-16 12:08 | RAD_ITS ---
STUDY: X-RAY CHEST REASON FOR EXAM: Male, 57 years old. Endotracheal tube and orogastric tube placement. TECHNIQUE: Single AP portable view of the chest. COMPARISON: Comparison is made with prior study dated December 15, 2017. FINDINGS: The tip of the endotracheal tube is at 4.9 cm proximal to the [place]ron. The orogastric tube is seen with the tip below the left hemidiaphragm. Once again, increased markings are seen with areas of confluence in both upper lobes as well as in the left lower lobe has been essentially no change. There is moderate cardiac enlargement. Normal mediastinum and marta. Normal visualized pulmonary arteries. There is atherosclerotic tortuosity of the aortic arch and descending thoracic aorta. Normal visualized thoracic spine. Normal visualized ribs, clavicles, and shoulders. There is no demonstrated abnormality of the visualized soft tissue structures of the upper abdomen. RAD/Chest 1 View IMPRESSION: Stable examination. Electronically Signed: Akhil Izquierdo MD at 12:39 EST Tel [phone], Service support ,
--- NOTE | 2017-12-16 13:38 | PCM.PN.CARD ---
Subjectve: Patient failed weaning trial this morning with high FI O2 requirements, and unfortunately his trach balloon ruptured while they were moving the patient requiring emergent reintubation. He is currently sedated, resting comfortably, on IV Lasix drip to assist with IV diuretic therapy. Telemetry shows normal sinus rhythm with rare PVCs. He is not on pressor agents as of this time. Objective: Vital Signs Temp Pulse Resp BP Pulse Ox 99.2 F H 76 15 113/59 L 89 12/16/17 10:00 12/16/17 10:00 12/16/17 10:00 12/16/17 10:00 12/16/17 10:00 Oxygen Flow Rate (L/min) 70 Oxygen Delivery Method Mechanical Ventilator Weight: 336 lb 10.334 oz Body Mass Index (BMI) 55.5 Finger Stick Blood Glucose 135 Intake and Output for Last 24 Hours 12/14/17 12/15/17 12/16/17 23:59 23:59 23:59 Intake Total 1816.2 / 1816.2 3845 / 3845 1738.8 / 1738.8 Output Total 3100 / 3100 3050 / 3050 3250 / 3250 Balance -1283.8 / -1283.8 795 / 795 -1511.2 / -1511.2 General: Awake, Alert, Oriented x 3 HEENT: PERRL, EOMI, Sclera Non Icteric Neck: Supple, Good ROM, No Lymph Node Enlargement Lungs: Clear to auscultation Cardiovascular: Regular Rhythm, Normal S1, Normal S2, No Murmurs, No Rubs, No Gallops Vascular: No Carotid Bruits, Normal Femoral Pulses, Normal Radial Pulses, Normal Dorsalis Pedal Pulse, Normal Posterior Tibial Pulses Abdomen: Bowel Sounds Present, Soft, Non Tender, No HSM, No Organomegaly Extremities: No Cyanosis, No Clubbing, Bilateral Edema +1 Neurological: No Focal Motor or Sensory Deficit 12/16/17 05:30: WBC 7.2, RBC 3.84 L, Hgb 11.0 L, Hct 36.2 L, MCV 94.3 H, MCH 28.6, MCHC 30.4 L, RDW 14.9 H, RDW Differential 49.6 H, Plt Count 259, MPV 9.7, Immature Gran % (Auto) 0.100, Neut % (Auto) 88.9 H, Lymph % (Auto) 9.2 L, [place] % (Auto) 1.7, Eos % (Auto) 0.1, Baso % (Auto) 0.0, Absolute Neuts (auto) 6.4, Total Counted Not Reportable 12/16/17 05:30: Sodium 140, Potassium 3.4 L, Chloride 96 L, Carbon Dioxide 39.0 H, Anion Gap 5, BUN 21 H, Creatinine 0.82, Est GFR (MDRD) Af Amer 123, Est GFR (MDRD) Non-Af 102, BUN/Creatinine Ratio 25.5 H, Glucose 207 H, Calcium 9.0 Rhythm: EKG: ECHO: Stress Test: Cardiac Cath: PCI: CT Surgery: Holter monitor: EPS: PPM: CXR: Chest CT Scan: Medical Necessity - Tobacco Use Smoking Status: Current every day smoker Assessment/Plan 1. Coronary artery disease: Patient has no significant troponin release despite having known coronary artery disease. He has a known occluded right coronary artery, with collateral from left to right, and is status post angioplasty and stenting to his LAD in 2012 and left circumflex in June 2017. Patient has had no malignant arrhythmias, and apparently presented with respiratory distress possibly due to pulmonary source of infection. He is being treated with broad-spectrum antibiotics and is on no pressor support at this time. Patient does have evidence of right-sided heart failure and unknown pulmonary pressures by echocardiogram on day of admission. His EF was estimated to be 60% although his imaging was technically difficult. He is currently undergoing diuresis with a Lasix drip to assist with decompressing his right side, as well as to facilitate extubation. Patient had a failed weaning trial this morning with subsequent trach balloon rupture requiring emergent reintubation. Would recommend continuing IV diuresis f until the patient has reached his dry weight, and his lower extremity edema has resolved.. Patient's bicarbonate is normalizing with Diamox therapy. Recommend continuing Diamox therapy. Chest x-ray shows improved pulmonary edema, and his oxygen saturations are satisfactory. At this point with the patient's challenges with weaning off the ventilator, he may have transient cardiac ischemia while he is weaning. For this reason I would recommend obtaining permission from his power of disability attorney to proceed with a right and left heart catheterization if we are not able to get him off the ventilator by Tuesday. His [place]Rh[place] catheter may be left in to facilitate tailoring his IV diuretic therapy to facilitate weaning from his ventilator. If his catheterization shows no correctable coronary disease, and if we are unable to get more the ventilator, he may require tracheostomy for additional weaning. Would recommend he continue his baby aspirin, Plavix, and hold his antihypertensives given his infection and hypotension. He has not required pressor agents at this time. 2. Obstructive sleep apnea: The patient is evidence of pulmonary hypertension and right-sided heart failure most likely result of obstructive sleep apnea. He is on chronic O2 therapy at home as well. Patient may be preload dependent so if his blood pressure deteriorates with IV diuresis, he may require discontinuation of IV diuretic therapy. 3. Hyperlipidemia: Continue statin based medications. 4. Thank you very much for the opportunity to participate in the cardiac care of your patient. Discussed with Dr. Campos, and will discuss with Dr. Denny. Code Visit Inpatient E&M: 05011 Subs Hosp L2
--- NOTE | 2017-12-16 13:43 | PN.CARD_ITS ---
Subjectve: Patient failed weaning trial this morning with high FI O2 requirements, and unfortunately his trach balloon ruptured while they were moving the patient requiring emergent reintubation. He is currently sedated, resting comfortably, on IV Lasix drip to assist with IV diuretic therapy. Telemetry shows normal sinus rhythm with rare PVCs. He is not on pressor agents as of this time. Objective: Vital Signs Temp Pulse Resp BP Pulse Ox 99.2 F H 76 15 113/59 L 89 12/16/17 10:00 12/16/17 10:00 12/16/17 10:00 12/16/17 10:00 12/16/17 10:00 Oxygen Flow Rate (L/min) 70 Oxygen Delivery Method Mechanical Ventilator Weight: 336 lb 10.334 oz Body Mass Index (BMI) 55.5 Finger Stick Blood Glucose 135 Intake and Output for Last 24 Hours 12/14/17 12/15/17 12/16/17 23:59 23:59 23:59 Intake Total 1816.2 / 1816.2 3845 / 3845 1738.8 / 1738.8 Output Total 3100 / 3100 3050 / 3050 3250 / 3250 Balance -1283.8 / -1283.8 795 / 795 -1511.2 / -1511.2 General: Awake, Alert, Oriented x 3 HEENT: PERRL, EOMI, Sclera Non Icteric Neck: Supple, Good ROM, No Lymph Node Enlargement Lungs: Clear to auscultation Cardiovascular: Regular Rhythm, Normal S1, Normal S2, No Murmurs, No Rubs, No Gallops Vascular: No Carotid Bruits, Normal Femoral Pulses, Normal Radial Pulses, Normal Dorsalis Pedal Pulse, Normal Posterior Tibial Pulses Abdomen: Bowel Sounds Present, Soft, Non Tender, No HSM, No Organomegaly Extremities: No Cyanosis, No Clubbing, Bilateral Edema +1 Neurological: No Focal Motor or Sensory Deficit 12/16/17 05:30: WBC 7.2, RBC 3.84 L, Hgb 11.0 L, Hct 36.2 L, MCV 94.3 H, MCH 28.6, MCHC 30.4 L, RDW 14.9 H, RDW Differential 49.6 H, Plt Count 259, MPV 9.7, Immature Gran % (Auto) 0.100, Neut % (Auto) 88.9 H, Lymph % (Auto) 9.2 L, [place] % (Auto) 1.7, Eos % (Auto) 0.1, Baso % (Auto) 0.0, Absolute Neuts (auto) 6.4, Total Counted Not Reportable 12/16/17 05:30: Sodium 140, Potassium 3.4 L, Chloride 96 L, Carbon Dioxide 39.0 H, Anion Gap 5, BUN 21 H, Creatinine 0.82, Est GFR (MDRD) Af Amer 123, Est GFR (MDRD) Non-Af 102, BUN/Creatinine Ratio 25.5 H, Glucose 207 H, Calcium 9.0 Rhythm: EKG: ECHO: Stress Test: Cardiac Cath: PCI: CT Surgery: Holter monitor: EPS: PPM: CXR: Chest CT Scan: Medical Necessity - Tobacco Use Smoking Status: Current every day smoker Assessment/Plan 1. Coronary artery disease: Patient has no significant troponin release despite having known coronary artery disease. He has a known occluded right coronary artery, with collateral from left to right, and is status post angioplasty and stenting to his LAD in 2012 and left circumflex in June 2017. Patient has had no malignant arrhythmias, and apparently presented with respiratory distress possibly due to pulmonary source of infection. He is being treated with broad- spectrum antibiotics and is on no pressor support at this time. Patient does have evidence of right-sided heart failure and unknown pulmonary pressures by echocardiogram on day of admission. His EF was estimated to be 60% although his imaging was technically difficult. He is currently undergoing diuresis with a Lasix drip to assist with decompressing his right side, as well as to facilitate extubation. Patient had a failed weaning trial this morning with subsequent trach balloon rupture requiring emergent reintubation. Would recommend continuing IV diuresis f until the patient has reached his dry weight, and his lower extremity edema has resolved.. Patient's bicarbonate is normalizing with Diamox therapy. Recommend continuing Diamox therapy. Chest x- ray shows improved pulmonary edema, and his oxygen saturations are satisfactory. At this point with the patient's challenges with weaning off the ventilator, he may have transient cardiac ischemia while he is weaning. For this reason I would recommend obtaining permission from his power of litigation attorney to proceed with a right and left heart catheterization if we are not able to get him off the ventilator by Tuesday. His [place]-Rhys catheter may be left in to facilitate tailoring his IV diuretic therapy to facilitate weaning from his page tilator. If his catheterization shows no correctable coronary disease, and if we are unable to get more the ventilator, he may require tracheostomy for additional weaning. Would recommend he continue his baby aspirin, Plavix, and hold his antihypertensives given his infection and hypotension. He has not required pressor agents at this time. 2. Obstructive sleep apnea: The patient is evidence of pulmonary hypertension and right-sided heart failure most likely result of obstructive sleep apnea. He is on chronic O2 therapy at home as well. Patient may be preload dependent so if his blood pressure deteriorates with IV diuresis, he may require discontinuation of IV diuretic therapy. 3. Hyperlipidemia: Continue statin based medications. 4. Thank you very much for the opportunity to participate in the cardiac care of your patient. Discussed with Dr. Campos, and will discuss with Dr. Denny. Code Visit Inpatient E&M: 80293 Subs Hosp L2
[2017-12-16] MEDS: Propofol 200 MG/20 ML Vial 20 MG IV BOLUS (14:57)
[2017-12-16 16:35] LABS: Bedside Glucose 207 mg/dL (70-110)
[2017-12-16] MEDS: 0.9% NaCl IVPB Med Flush (250 mL) 15 ML IV (21:29)
[2017-12-16] MEDS: Atorvastatin Calcium 40 MG Tablet GT (21:31)
[2017-12-17] VITALS (43 sets, daily range): BP systolic 82–107; BP diastolic 39–68; PULSE 62–80; RESP 14–20; TEMP 36.7–37.6; O2SAT 89–97
[2017-12-17 00:01] LABS: Bedside Glucose 220 mg/dL (70-110)
[2017-12-17] MEDS: Albuterol 2.5 MG/3 ML VIAL.NEB. INHALATION ×3 (01:40→18:39)
[2017-12-17] MEDS: Furosemide 500 MG in Empty Viaflex 50 mL 1 EACH CONT INF (04:48)
[2017-12-17] MEDS: CHLORHEXIDINE GLUC 2% CLOTH 1 EACH TOWELETTE TOPICAL (04:48)
[2017-12-17] MEDS: 0.9% NaCl Peripheral Flush Adult/Peds IV ×2 (04:48→06:01)
[2017-12-17 05:00] LABS: Absolute Neutrophil Count 6.5 X10^3/uL (2.0-7.7); Eosinophil# 0.01 X10^3/uL; Eosinophils% 0.1 % (0-5); Hematocrit 35.5 % (40-54); Hemoglobin 10.6 g/dl (13.0-16.5); Lymphocyte % 10.4 % (19-41); Mean Corp Hgb Conc 29.9 g/gl (32-36); Mean Corpuscular Hgb 27.9 pg (27.0-32.0); Mean Corpuscular Volume 93.4 fL (80-94); Mean Platelet Vol. 9.7 fl (6.2-12.0); Monocyte# 0.35 X10^3/uL; Monocyte% 4.6 % (0-10); Neutrophil % 84.6 % (47-70); Platelet Count 258 K/mm3 (150-450); RBC Distribution Width CV 14.8 % (11.6-14.6); RBC Distribution Width SD 48.2 fl (35.1-43.9); White Blood Count 7.7 K/mm3 (4.4-11.0)
[2017-12-17 05:10] LABS: POSITIVE COUNT NO; POSITIVE DIFFERENTIAL NO; POSITIVE MORPHOLOGY NO
[2017-12-17 05:13] LABS: Anion Gap 8 (5-15); BUN 32 mg/dL (7-18); BUN/Creat Ratio 32.1 RATIO (10-20); Calcium,Total 8.9 mg/dL (8.5-10.1); Chloride 96 mmol/L (98-107); EST Glomerular Filtration Rate 81 mL/min (>60); Est Glom Filt Rate - Afr Amer 99 mL/min (>60); Estimated Creatinine Clearance 76.95 ml/min; Glucose 208 mg/dL (74-106); Potassium 3.4 mmol/L (3.5-5.1); Sodium Level 143 mmol/L (136-145)
[2017-12-17] MEDS: Insulin Lispro 100 UNIT/ML INSULN.PEN SQ ×3 (06:00→16:38)
[2017-12-17] MEDS: Heparin Injection (Vial) 5,000 UNIT/ML VIAL 5000 UNIT SC ×3 (06:00→21:07)
[2017-12-17 06:11] LABS: Bedside Glucose 196 mg/dL (70-110)
--- NOTE | 2017-12-17 06:32 | PCM.PN.INT ---
Subjective: The patient was seen and examined at the bedside this morning. Events from the last 24 hours have been reviewed. The patient is currently afebrile, hemodynamically stable and maintaining appropriate oxygen saturations with an FiO2 requirement of 60%. 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 The patient's endotracheal tube had to be removed and he had to be emergently reintubated. During the intubation, the patient was noted to have a great deal of bilious gastric secretions in his posterior oropharynx, with a high degree probability of aspiration having occurred. Overnight, the patient has remained on a Lasix drip. He was overall net -3 L yesterday. He is now overall net -6.8 L for the admission. His weight is down accordingly. His creatinine did increase slightly this morning. As a consequence of the patient's likely aspiration event yesterday, his antibiotics were broadened back out from clindamycin to Zosyn. A repeat sputum culture was also obtained. Objective: The patient's most recent lab work, culture data and imaging studies have all been personally reviewed. Respiratory viral panel was negative. Surface echocardiogram revealed normal LV size and function with an ejection fraction of 60%. Sputum culture dated December 13 revealed evidence of Streptococcus pneumoniae. General: - - Remains intubated, sedated and mechanically ventilated. HEENT: Atraumatic, PERRLA, Normocephalic Oral: No Gingival or Mucosal Lesions/ Ulcerations, - - Endotracheal and OG tubes remain in place. Neck: Supple, No Nodes, Trachea Midline Lungs: No rhonchi, No wheeze, Diminished, Rales Cardiovascular: Regular rate, Regular Rhythm, Normal S1, Normal S2, No murmurs Abdomen: Bowel Sounds Present, Soft, Non Tender, Obese Extremities: No clubbing, No cyanosis, - - Improving lower extremity edema Skin: - - No significant change from previous Musculoskeletal: No Tenderness to Palpation of Joints or Extremities Lymphatic: No Cervical, Supraclavicular, or Inguinal Adenopathy Neurological: - - No focal deficits. Currently sedated with a RASS of -2. Vital Signs Temp Pulse Resp BP Pulse Ox 37.3 C H 66 14 96/52 L 95 12/17/17 06:00 12/17/17 06:32 12/17/17 06:32 12/17/17 06:00 12/17/17 06:25 Oxygen Flow Rate (L/min) 70 Oxygen Delivery Method Mechanical Ventilator Weight: 334 lb 14.115 oz Body Mass Index (BMI) 55.5 Finger Stick Blood Glucose 135 Intake and Output for Last 24 Hours 12/15/17 12/16/17 12/17/17 23:59 23:59 23:59 Intake Total 3845 / 3845 2692.5 / 2692.5 824.1 / 824.1 Output Total 3050 / 3050 5700 / 5700 800 / 800 Balance 795 / 795 -3007.5 / -3007.5 24.1 / 24.1 Labs (Last 48 Hours) 12/15/17 12/15/17 12/15/17 04:20 12:32 17:50 WBC RBC Hgb Hct MCV MCH MCHC RDW RDW Differential Plt Count MPV Immature Gran % (Auto) Neut % (Auto) Lymph % (Auto) [place] % (Auto) Eos % (Auto) Baso % (Auto) Absolute Neuts (auto) Absolute Lymphs (auto) Total Counted Sodium Potassium Chloride Carbon Dioxide Anion Gap BUN Creatinine Estim Creat Clear Calc Est GFR (MDRD) Af Amer Est GFR (MDRD) Non-Af BUN/Creatinine Ratio Glucose Calcium Phosphorus 4.1 Magnesium 2.7 H POC Glucose 139 H 166 H 12/16/17 12/16/17 12/16/17 01:28 05:22 05:30 WBC 7.2 RBC 3.84 L Hgb 11.0 L Hct 36.2 L MCV 94.3 H MCH 28.6 MCHC 30.4 L RDW 14.9 H RDW Differential 49.6 H Plt Count 259 MPV 9.7 Immature Gran % (Auto) 0.100 Neut % (Auto) 88.9 H Lymph % (Auto) 9.2 L [place] % (Auto) 1.7 Eos % (Auto) 0.1 Baso % (Auto) 0.0 Absolute Neuts (auto) 6.4 Absolute Lymphs (auto) 0.66 L Total Counted Not Reportable Sodium Potassium Chloride Carbon Dioxide Anion Gap BUN Creatinine Estim Creat Clear Calc Est GFR (MDRD) Af Amer Est GFR (MDRD) Non-Af BUN/Creatinine Ratio Glucose Calcium Phosphorus Magnesium POC Glucose 185 H 246 H 12/16/17 12/16/17 12/16/17 05:30 11:11 16:23 WBC RBC Hgb Hct MCV MCH MCHC RDW RDW Differential Plt Count MPV Immature Gran % (Auto) Neut % (Auto) Lymph % (Auto) [place] % (Auto) Eos % (Auto) Baso % (Auto) Absolute Neuts (auto) Absolute Lymphs (auto) Total Counted Sodium 140 Potassium 3.4 L Chloride 96 L Carbon Dioxide 39.0 H Anion Gap 5 BUN 21 H Creatinine 0.82 Estim Creat Clear Calc 93.84 Est GFR (MDRD) Af Amer 123 Est GFR (MDRD) Non-Af 102 BUN/Creatinine Ratio 25.5 H Glucose 207 H Calcium 9.0 Phosphorus Magnesium POC Glucose 238 H 207 H 12/16/17 12/17/17 12/17/17 23:40 04:45 04:45 WBC 7.7 RBC 3.80 L Hgb 10.6 L Hct 35.5 L MCV 93.4 MCH 27.9 MCHC 29.9 L RDW 14.8 H RDW Differential 48.2 H Plt Count 258 MPV 9.7 Immature Gran % (Auto) 0.300 Neut % (Auto) 84.6 H Lymph % (Auto) 10.4 L [place] % (Auto) 4.6 Eos % (Auto) 0.1 Baso % (Auto) 0.0 Absolute Neuts (auto) 6.5 Absolute Lymphs (auto) 0.80 L Total Counted Not Reportable Sodium 143 Potassium 3.4 L Chloride 96 L Carbon Dioxide 39.0 H Anion Gap 8 BUN 32 H Creatinine 1.00 Estim Creat Clear Calc 76.95 Est GFR (MDRD) Af Amer 99 Est GFR (MDRD) Non-Af 81 BUN/Creatinine Ratio 32.1 H Glucose 208 H Calcium 8.9 Phosphorus Magnesium POC Glucose 220 H 12/17/17 05:58 WBC RBC Hgb Hct MCV MCH MCHC RDW RDW Differential Plt Count MPV Immature Gran % (Auto) Neut % (Auto) Lymph % (Auto) [place] % (Auto) Eos % (Auto) Baso % (Auto) Absolute Neuts (auto) Absolute Lymphs (auto) Total Counted Sodium Potassium Chloride Carbon Dioxide Anion Gap BUN Creatinine Estim Creat Clear Calc Est GFR (MDRD) Af Amer Est GFR (MDRD) Non-Af BUN/Creatinine Ratio Glucose Calcium Phosphorus Magnesium POC Glucose 196 H Microbiology 12/16/17 12:35 Sputum, Induced/Lukens Gram Stain - Final 12/13/17 06:50 Sputum, Induced/Lukens Gram Stain - Final 12/13/17 06:50 Sputum, Induced/Lukens Respiratory Culture - Preliminary Alpha Hemolytic Streptococcus 12/12/17 07:45 Sputum, Tracheal Aspirate Gram Stain - Final 12/12/17 07:45 Sputum, Tracheal Aspirate Respiratory Culture - Final Yeast Clinical Impression(s) from Imaging Studies Brain CT 12/12/17 07:34 IMPRESSION: No CT evidence of acute intracranial hemorrhage. Electronically Signed: Katya Wright MD at 8:54 EST , Service support , Chest X-Ray 12/12/17 07:40 IMPRESSION: Cardiomegaly and mild pulmonary congestion. Electronically Signed: Katya Wright MD at 8:02 EST , Service support , Chest X-Ray 12/15/17 06:34 IMPRESSION: All the support tubes are in good position. Residual increased markings in both lungs as described although there has been improvement as compared to prior study. Electronically Signed: Akhil Izquierdo MD at 11:07 EST Tel [phone], Service support , Chest X-Ray 12/16/17 12:08 IMPRESSION: Stable examination. Electronically Signed: Akhil Izquierdo MD at 12:39 EST Tel [phone], Service support , Medical Necessity - Tobacco Use Smoking Status: Current every day smoker Assessment/Plan All Active Problems (Last Updated 11/10/17 @ 12:14 by Brennon Maloney RECEIVING SPECIALIST-C) Acute respiratory failure with hypoxia and hypercapnia (Acute) Pneumococcal pneumonia (Acute) Metabolic encephalopathy (Acute) Heart failure with reduced ejection fraction (Acute) Chest pain (Resolved) Respiratory failure, acute (Resolved) RECOMMENDATIONS: 1. Continue continuous Lasix infusion today. Continue Diamox as ordered. 2. Continue IV Solu-Medrol 40 mg every 6 hours. 3. Wean FiO2 as tolerated. Continue increased PEEP to aid in the recruitment of any atelectatic lung. 4. Continue antibiotics. 5. Continue tube feeds. 6. Continue bronchodilators as ordered. 7. Continue current sedation regimen with a goal to maintain a RASS of -1 to 1. 8. Continue appropriate ICU prophylaxis with subcutaneous heparin and Protonix. IMPRESSIONS: 1. Acute on chronic combined respiratory failure Likely secondary to decompensated heart failure in the setting of medical noncompliance, with superimposed bronchospastic airway disease and continued tobacco dependence likely contributing. While the patient appears to have normal systolic function on his most recent echocardiogram, I would certainly be concerned for the presence of underlying diastolic dysfunction. In addition, his weight is up significantly from that documented in November. The patient appears to be responding favorably to invasive mechanical ventilation and IV diuresis, with decreasing FiO2 requirements. The patient was started empirically on antibiotics early during his admission as he was noted to have spiked a fever. However, his infectious workup to date has been unrevealing. Continue scheduled bronchodilators and wean FiO2 as tolerated. In hopes of recruiting atelectatic lung, will continue the patient on increased PEEP settings. Physical therapy to work with patient and get him out of bed. Would plan to keep the patient's oxygen saturations 88-92%, to prevent paradoxical CO2 retention. Continue current sedation regimen as ordered. Will transition the patient from bolus of IV Lasix to continuous infusion. Scheduled potassium will also be started. We will plan to continue antibiotics as ordered. 2. Metabolic encephalopathy Improved. Likely secondary to acute on chronic CO2 retention. Anticipate improvement with correction of the patient's underlying metabolic derangements. Minimize sedation as tolerated. 3. Decompensated heart failure/history of ischemic cardiomyopathy The patient's weight is significantly elevated when compared to that documented from November. Diuretics will be continued accordingly. Restart the patient's beta-lori once he has been volume optimized. Initiate 1.5 L fluid restriction daily. 4. Diabetes mellitus Continue Accu-Cheks and sliding scale insulin coverage. The patient has been tolerant of tube feeds to date. 5. Obstructive sleep apnea The patient has a history of outpatient noncompliance with the use of nocturnal Pap therapy. He only utilizes supplemental oxygen on a nightly basis. 6. Ongoing tobacco dependence/super morbid obesity/history of medical noncompliance/hypertension Complicates care, management, recovery and prognosis. Nicotine replacement therapy can be utilized while admitted to the hospital. TIME: 35 minutes of critical care time, independent of procedures, was spent addressing the patient's acute on chronic combined respiratory failure, metabolic encephalopathy, decompensated heart failure, obstructive sleep apnea, review of all data and collaboration with the care team. ([id number]) Code Visit 9xxxx: [id number] Critical care first hour
--- NOTE | 2017-12-17 06:35 | PN_ITS ---
Subjective: The patient was seen and examined at the bedside this morning. Events from the last 24 hours have been reviewed. The patient is currently afebrile, hemodynamically stable and maintaining appropriate oxygen saturations with an FiO2 requirement of 60%. Unfortunately, yesterday the patient's endotracheal tube area relief pilot balloon ruptured leading to loss of the patient's secure airway and an inability to ventilate the patient. The patient's endotracheal tube had to be removed and he had to be emergently reintubated. During the intubation, the patient was noted to have a great deal of bilious gastric secretions in his posterior oropharynx, with a high degree probability of aspiration having occurred. Overnight, the patient has remained on a Lasix drip. He was overall net -3 L yesterday. He is now overall net -6.8 L for the admission. His weight is down accordingly. His creatinine did increase slightly this morning. As a consequence of the patient's likely aspiration event yesterday, his antibiotics were broadened back out from clindamycin to Zosyn. A repeat sputum culture was also obtained. Objective: The patient's most recent lab work, culture data and imaging studies have all been personally reviewed. Respiratory viral panel was negative. Surface echocardiogram revealed normal LV size and function with an ejection fraction of 60%. Sputum culture dated December 13 revealed evidence of Streptococcus pneumoniae. General: - - Remains intubated, sedated and mechanically ventilated. HEENT: Atraumatic, PERRLA, Normocephalic Oral: No Gingival or Mucosal Lesions/ Ulcerations, - - Endotracheal and OG tubes remain in place. Neck: Supple, No Nodes, Trachea Midline Lungs: No rhonchi, No wheeze, Diminished, Rales Cardiovascular: Regular rate, Regular Rhythm, Normal S1, Normal S2, No murmurs Abdomen: Bowel Sounds Present, Soft, Non Tender, Obese Extremities: No clubbing, No cyanosis, - - Improving lower extremity edema Skin: - - No significant change from previous Musculoskeletal: No Tenderness to Palpation of Joints or Extremities Lymphatic: No Cervical, Supraclavicular, or Inguinal Adenopathy Neurological: - - No focal deficits. Currently sedated with a RASS of -2. Vital Signs Temp Pulse Resp BP Pulse Ox 37.3 C H 66 14 96/52 L 95 12/17/17 06:00 12/17/17 06:32 12/17/17 06:32 12/17/17 06:00 12/17/17 06:25 Oxygen Flow Rate (L/min) 70 Oxygen Delivery Method Mechanical Ventilator Weight: 334 lb 14.115 oz Body Mass Index (BMI) 55.5 Finger Stick Blood Glucose 135 Intake and Output for Last 24 Hours 12/15/17 12/16/17 12/17/17 23:59 23:59 23:59 Intake Total 3845 / 3845 2692.5 / 2692.5 824.1 / 824.1 Output Total 3050 / 3050 5700 / 5700 800 / 800 Balance 795 / 795 -3007.5 / -3007.5 24.1 / 24.1 Labs (Last 48 Hours) 12/15/17 12/15/17 12/15/17 04:20 12:32 17:50 WBC RBC Hgb Hct MCV MCH MCHC RDW RDW Differential Plt Count MPV Immature Gran % (Auto) Neut % (Auto) Lymph % (Auto) Hamlin % (Auto) Eos % (Auto) Baso % (Auto) Absolute Neuts (auto) Absolute Lymphs (auto) Total Counted Sodium Potassium Chloride Carbon Dioxide Anion Gap BUN Creatinine Estim Creat Clear Calc Est GFR (MDRD) Af Amer Est GFR (MDRD) Non-Af BUN/Creatinine Ratio Glucose Calcium Phosphorus 4.1 Magnesium 2.7 H POC Glucose 139 H 166 H 12/16/17 12/16/17 12/16/17 01:28 05:22 05:30 WBC 7.2 RBC 3.84 L Hgb 11.0 L Hct 36.2 L MCV 94.3 H MCH 28.6 MCHC 30.4 L RDW 14.9 H RDW Differential 49.6 H Plt Count 259 MPV 9.7 Immature Gran % (Auto) 0.100 Neut % (Auto) 88.9 H Lymph % (Auto) 9.2 L Hamlin % (Auto) 1.7 Eos % (Auto) 0.1 Baso % (Auto) 0.0 Absolute Neuts (auto) 6.4 Absolute Lymphs (auto) 0.66 L Total Counted Not Reportable Sodium Potassium Chloride Carbon Dioxide Anion Gap BUN Creatinine Estim Creat Clear Calc Est GFR (MDRD) Af Amer Est GFR (MDRD) Non-Af BUN/Creatinine Ratio Glucose Calcium Phosphorus Magnesium POC Glucose 185 H 246 H 12/16/17 12/16/17 12/16/17 05:30 11:11 16:23 WBC RBC Hgb Hct MCV MCH MCHC RDW RDW Differential Plt Count MPV Immature Gran % (Auto) Neut % (Auto) Lymph % (Auto) Hamlin % (Auto) Eos % (Auto) Baso % (Auto) Absolute Neuts (auto) Absolute Lymphs (auto) Total Counted Sodium 140 Potassium 3.4 L Chloride 96 L Carbon Dioxide 39.0 H Anion Gap 5 BUN 21 H Creatinine 0.82 Estim Creat Clear Calc 93.84 Est GFR (MDRD) Af Amer 123 Est GFR (MDRD) Non-Af 102 BUN/Creatinine Ratio 25.5 H Glucose 207 H Calcium 9.0 Phosphorus Magnesium POC Glucose 238 H 207 H 12/16/17 12/17/17 12/17/17 23:40 04:45 04:45 WBC 7.7 RBC 3.80 L Hgb 10.6 L Hct 35.5 L MCV 93.4 MCH 27.9 MCHC 29.9 L RDW 14.8 H RDW Differential 48.2 H Plt Count 258 MPV 9.7 Immature Gran % (Auto) 0.300 Neut % (Auto) 84.6 H Lymph % (Auto) 10.4 L Hamlin % (Auto) 4.6 Eos % (Auto) 0.1 Baso % (Auto) 0.0 Absolute Neuts (auto) 6.5 Absolute Lymphs (auto) 0.80 L Total Counted Not Reportable Sodium 143 Potassium 3.4 L Chloride 96 L Carbon Dioxide 39.0 H Anion Gap 8 BUN 32 H Creatinine 1.00 Estim Creat Clear Calc 76.95 Est GFR (MDRD) Af Amer 99 Est GFR (MDRD) Non-Af 81 BUN/Creatinine Ratio 32.1 H Glucose 208 H Calcium 8.9 Phosphorus Magnesium POC Glucose 220 H 12/17/17 05:58 WBC RBC Hgb Hct MCV MCH MCHC RDW RDW Differential Plt Count MPV Immature Gran % (Auto) Neut % (Auto) Lymph % (Auto) Hamlin % (Auto) Eos % (Auto) Baso % (Auto) Absolute Neuts (auto) Absolute Lymphs (auto) Total Counted Sodium Potassium Chloride Carbon Dioxide Anion Gap BUN Creatinine Estim Creat Clear Calc Est GFR (MDRD) Af Amer Est GFR (MDRD) Non-Af BUN/Creatinine Ratio Glucose Calcium Phosphorus Magnesium POC Glucose 196 H Microbiology 12/16/17 12:35 Sputum, Induced/Lukens Gram Stain - Final 12/13/17 06:50 Sputum, Induced/Lukens Gram Stain - Final 12/13/17 06:50 Sputum, Induced/Lukens Respiratory Culture - Preliminary Alpha Hemolytic Streptococcus 12/12/17 07:45 Sputum, Tracheal Aspirate Gram Stain - Final 12/12/17 07:45 Sputum, Tracheal Aspirate Respiratory Culture - Final Yeast Clinical Impression(s) from Imaging Studies Brain CT 12/12/17 07:34 IMPRESSION: No CT evidence of acute intracranial hemorrhage. Electronically Signed: Katya Wright MD at 8:54 EST , Service support , Chest X-Ray 12/12/17 07:40 IMPRESSION: Cardiomegaly and mild pulmonary congestion. Electronically Signed: Katya Wright MD at 8:02 EST , Service support , Chest X-Ray 12/15/17 06:34 IMPRESSION: All the support tubes are in good position. Residual increased markings in both lungs as described although there has been improvement as compared to prior study. Electronically Signed: Akhil Izquierdo MD at 11:07 EST Tel [phone], Service support , Chest X-Ray 12/16/17 12:08 IMPRESSION: Stable examination. Electronically Signed: Akhil Izquierdo MD at 12:39 EST Tel [phone], Service support , Medical Necessity - Tobacco Use Smoking Status: Current every day smoker Assessment/Plan All Active Problems (Last Updated 11/10/17 @ 12:14 by Brennon Maloney [employer]) Acute respiratory failure with hypoxia and hypercapnia (Acute) Pneumococcal pneumonia (Acute) Metabolic encephalopathy (Acute) Heart failure with reduced ejection fraction (Acute) Chest pain (Resolved) Respiratory failure, acute (Resolved) RECOMMENDATIONS: 1. Continue continuous Lasix infusion today. Continue Diamox as ordered. 2. Continue IV Solu-Medrol 40 mg every 6 hours. 3. Wean FiO2 as tolerated. Continue increased PEEP to aid in the recruitment of any atelectatic lung. 4. Continue antibiotics. 5. Continue tube feeds. 6. Continue bronchodilators as ordered. 7. Continue current sedation regimen with a goal to maintain a RASS of -1 to 1. 8. Continue appropriate ICU prophylaxis with subcutaneous heparin and Protonix. IMPRESSIONS: 1. Acute on chronic combined respiratory failure Likely secondary to decompensated heart failure in the setting of medical noncompliance, with superimposed bronchospastic airway disease and continued tobacco dependence likely contributing. While the patient appears to have normal systolic function on his most recent echocardiogram, I would certainly be concerned for the presence of underlying diastolic dysfunction. In addition, his weight is up significantly from that documented in November. The patient appears to be responding favorably to invasive mechanical ventilation and IV diuresis, with decreasing FiO2 requirements. The patient was started empirically on antibiotics early during his admission as he was noted to have spiked a fever. However, his infectious workup to date has been unrevealing. Continue scheduled bronchodilators and wean FiO2 as tolerated. In hopes of recruiting atelectatic lung, will continue the patient on increased PEEP settings. Physical therapy to work with patient and get him out of bed. Would plan to keep the patient's oxygen saturations 88-92%, to prevent paradoxical CO2 retention. Continue current sedation regimen as ordered. Will transition the patient from bolus of IV Lasix to continuous infusion. Scheduled potassium will also be started. We will plan to continue antibiotics as ordered. 2. Metabolic encephalopathy Improved. Likely secondary to acute on chronic CO2 retention. Anticipate improvement with correction of the patient's underlying metabolic derangements. Minimize sedation as tolerated. 3. Decompensated heart failure/history of ischemic cardiomyopathy The patient's weight is significantly elevated when compared to that documented from November. Diuretics will be continued accordingly. Restart the patient's beta-lori once he has been volume optimized. Initiate 1.5 L fluid restriction daily. 4. Diabetes mellitus Continue Accu-Cheks and sliding scale insulin coverage. The patient has been tolerant of tube feeds to date. 5. Obstructive sleep apnea The patient has a history of outpatient noncompliance with the use of nocturnal Pap therapy. He only utilizes supplemental oxygen on a nightly basis. 6. Ongoing tobacco dependence/super morbid obesity/history of medical noncompliance/hypertension Complicates care, management, recovery and prognosis. Nicotine replacement therapy can be utilized while admitted to the hospital. TIME: 35 minutes of critical care time, independent of procedures, was spent addressing the patient's acute on chronic combined respiratory failure, metabolic encephalopathy, decompensated heart failure, obstructive sleep apnea, review of all data and collaboration with the care team. ([id number]) Code Visit 9xxxx: [id number] Critical care first hour
--- NOTE | 2017-12-17 09:11 | CM.UR ---
Participated in interdisciplinary rounds this am. Patient remains intubated. Plan is dc to SNF upon discharge. SW/case mgmt will continue to follow patient. CECIL Bell, CCM.
[2017-12-17] MEDS: Aspirin 81 MG TAB.CHEW GT (09:17)
[2017-12-17] MEDS: Propofol 10MG/Ml 1,000 MG/100 ML Bottle 9.852 MG CONT INF ×3 (09:17→21:06)
[2017-12-17] MEDS: AcetaZOLAMIDE 250 MG Tablet 125 MG GT ×2 (09:18→21:07)
[2017-12-17] MEDS: Clopidogrel Bisulfate 75 MG Tablet GT (09:18)
[2017-12-17] MEDS: Chlorhexidine 15 ML PO ×2 (09:18→21:19)
[2017-12-17] MEDS: Famotidine 20 MG Tablet GT ×2 (09:18→21:08)
[2017-12-17] MEDS: Polyethylene Glycol 3350 17 GM PACKET GT ×2 (09:18→21:08)
--- NOTE | 2017-12-17 09:31 | PCM.PN.CARD ---
Subjectve: Patient intubated, sedated, still with high PEEP's of 15, and high FiO2 of around 55%. On IV Lasix drip. Telemetry shows normal sinus rhythm, rare PVCs. I's and O's show net -3.0 L overnight, bicarb is stable at 39. Objective: Vital Signs Temp Pulse Resp BP Pulse Ox 99.3 F H 65 14 95/39 L 92 12/17/17 07:00 12/17/17 08:55 12/17/17 08:55 12/17/17 07:00 12/17/17 08:55 Oxygen Flow Rate (L/min) 70 Oxygen Delivery Method Mechanical Ventilator Weight: 334 lb 14.115 oz Body Mass Index (BMI) 55.5 Finger Stick Blood Glucose 135 Intake and Output for Last 24 Hours 12/15/17 12/16/17 12/17/17 23:59 23:59 23:59 Intake Total 3845 / 3845 2692.5 / 2692.5 824.1 / 824.1 Output Total 3050 / 3050 5700 / 5700 800 / 800 Balance 795 / 795 -3007.5 / -3007.5 24.1 / 24.1 General: Awake, Alert, Oriented x 3 HEENT: PERRL, EOMI, Sclera Non Icteric Neck: Supple, Good ROM, No Lymph Node Enlargement Lungs: Clear to auscultation Cardiovascular: Regular Rhythm, Normal S1, Normal S2, No Murmurs, No Rubs, No Gallops Vascular: No Carotid Bruits, Normal Femoral Pulses, Normal Radial Pulses, Normal Dorsalis Pedal Pulse, Normal Posterior Tibial Pulses Abdomen: Bowel Sounds Present, Soft, Non Tender, No HSM, No Organomegaly Extremities: No Cyanosis, No Clubbing, Bilateral Edema +1 Neurological: No Focal Motor or Sensory Deficit 12/17/17 04:45: WBC 7.7, RBC 3.80 L, Hgb 10.6 L, Hct 35.5 L, MCV 93.4, MCH 27.9, MCHC 29.9 L, RDW 14.8 H, RDW Differential 48.2 H, Plt Count 258, MPV 9.7, Immature Gran % (Auto) 0.300, Neut % (Auto) 84.6 H, Lymph % (Auto) 10.4 L, Emanuel % (Auto) 4.6, Eos % (Auto) 0.1, Baso % (Auto) 0.0, Absolute Neuts (auto) 6.5, Total Counted Not Reportable 12/17/17 04:45: Sodium 143, Potassium 3.4 L, Chloride 96 L, Carbon Dioxide 39.0 H, Anion Gap 8, BUN 32 H, Creatinine 1.00, Est GFR (MDRD) Af Amer 99, Est GFR (MDRD) Non-Af 81, BUN/Creatinine Ratio 32.1 H, Glucose 208 H, Calcium 8.9 Rhythm: EKG: ECHO: Stress Test: Cardiac Cath: PCI: CT Surgery: Holter monitor: EPS: PPM: CXR: Chest CT Scan: Medical Necessity - Tobacco Use Smoking Status: Current every day smoker Assessment/Plan 1. Coronary artery disease: Patient has no significant troponin release despite having known coronary artery disease. He has a known occluded right coronary artery, with collateral from left to right, and is status post angioplasty and stenting to his LAD in 2012 and left circumflex in June 2017. Patient has had no malignant arrhythmias, and apparently presented with respiratory distress possibly due to pulmonary source of infection. He is being treated with broad-spectrum antibiotics and is on no pressor support at this time. Patient does have evidence of right-sided heart failure and unknown pulmonary pressures by echocardiogram on day of admission. His EF was estimated to be 60% although his imaging was technically difficult. He is currently undergoing diuresis with a Lasix drip to assist with decompressing his right side, as well as to facilitate extubation. Patient had a failed weaning trial on Tuesday with subsequent trache balloon rupture requiring emergent reintubation. Would recommend continuing IV diuresis with IV Lasix until the patient has reached his dry weight, and his lower extremity edema has resolved. Would recommend a net negative at 2.0 L daily if his blood pressure and bicarbonate tolerated.. Patient's bicarbonate is normalizing with Diamox therapy. Recommend continuing Diamox therapy. Chest x-ray shows improved pulmonary edema, and his oxygen saturations are satisfactory. At this point with the patient's challenges with weaning off the ventilator, he may have transient cardiac ischemia while he is weaning. For this reason I would recommend obtaining permission from his power of litigation attorney to proceed with a right and left heart catheterization if we are not able to get him off the ventilator by Tuesday. His [place]-Rhys catheter may be left in to facilitate tailoring his IV diuretic therapy to facilitate weaning from his ventilator. If his catheterization shows no correctable coronary disease, and if we are unable to get more the ventilator, he may require tracheostomy for additional weaning. Would recommend he continue his baby aspirin, Plavix, and hold his antihypertensives given his infection and hypotension. He has not required pressor agents at this time. 2. Obstructive sleep apnea: The patient is evidence of pulmonary hypertension and right-sided heart failure most likely result of obstructive sleep apnea. He is on chronic O2 therapy at home as well. Patient may be preload dependent so if his blood pressure deteriorates with IV diuresis, he may require discontinuation of IV diuretic therapy. 3. Hyperlipidemia: Continue statin based medications. 4. Thank you very much for the opportunity to participate in the cardiac care of your patient. Please let Dr. Li know once his POA arrives. Code Visit Inpatient E&M: 70809 Subs Hosp L2
--- NOTE | 2017-12-17 09:33 | PCM.PN.HOSP ---
Subjective: Patient seen and examined. He remains intubated and sedated. He is remains on IV lasix drip. Blood pressure is running low with MAP in the 50s. Labs and vitals reviewed. He is able to respond to questions and denies any chest pain, fever chills, abdominal pain, diarrhea or vomiting. Review of systems otherwise negative. Vitals/I&O's: Vital Signs Temp Pulse Resp BP Pulse Ox 99.3 F H 65 14 95/39 L 92 12/17/17 07:00 12/17/17 08:55 12/17/17 08:55 12/17/17 07:00 12/17/17 08:55 Oxygen Flow Rate (L/min) 70 Oxygen Delivery Method Mechanical Ventilator Weight: 334 lb 14.115 oz Body Mass Index (BMI) 55.5 Finger Stick Blood Glucose 135 Intake and Output for Last 24 Hours 12/15/17 12/16/17 12/17/17 23:59 23:59 23:59 Intake Total 3845 / 3845 2692.5 / 2692.5 824.1 / 824.1 Output Total 3050 / 3050 5700 / 5700 800 / 800 Balance 795 / 795 -3007.5 / -3007.5 24.1 / 24.1 General: Alert, Cooperative, No apparent distress, - - remains intubated HEENT: Atraumatic, PERRLA, EOMI, Normocephalic Oral: Moist Mucosa Neck: Supple, No JVD, Negative Carotid Bruits Lungs: - - has mildly reduced breath sounds bibasally, no wheezes or crackles. Cardiovascular: Regular rate, Regular Rhythm, Normal S1, Normal S2, No murmurs Abdomen: Bowel Sounds Present, Soft, Non Tender, Non-Distended, No Hepato-splenomegaly Extremities: No clubbing, No cyanosis, No edema, Capillary Refill Less than 3 Seconds Skin: No rashes, No breakdown Musculoskeletal: No Tenderness to Palpation of Joints or Extremities Lymphatic: No Cervical, Supraclavicular, or Inguinal Adenopathy Neurological: Neuro grossly intact, - - intubated,sedated, RASS score is 0 Psych/Mental Status: Normal Affect Microbiology Past 72 Hours 12/12/17 07:30 Blood Culture (Wb) - Anticubital Left Blood Culture - Final No growth in 5 days. 12/13/17 06:50 Sputum, Induced/Lukens Gram Stain - Final 12/13/17 06:50 Sputum, Induced/Lukens Respiratory Culture - Final Streptococcus pneumoniae 12/16/17 12:35 Sputum, Induced/Lukens Gram Stain - Final 12/12/17 07:45 Sputum, Tracheal Aspirate Gram Stain - Final 12/12/17 07:45 Sputum, Tracheal Aspirate Respiratory Culture - Final Yeast 12/12/17 08:20 Blood Culture (Wb) - Anticubital Right Blood Culture - Preliminary No growth in 48 hours. 12/12/17 09:05 Urine Catheter - Catheter Urine Culture - Final Culture exhibits no growth. Laboratory Results 12/16/17 11:11: POC Glucose 238 H 12/16/17 16:23: POC Glucose 207 H 12/16/17 23:40: POC Glucose 220 H 12/17/17 04:45: WBC 7.7, RBC 3.80 L, Hgb 10.6 L, Hct 35.5 L, MCV 93.4, MCH 27.9, MCHC 29.9 L, RDW 14.8 H, RDW Differential 48.2 H, Plt Count 258, MPV 9.7, Immature Gran % (Auto) 0.300, Neut % (Auto) 84.6 H, Lymph % (Auto) 10.4 L, [place] % (Auto) 4.6, Eos % (Auto) 0.1, Baso % (Auto) 0.0, Absolute Neuts (auto) 6.5, Absolute Lymphs (auto) 0.80 L, Total Counted Not Reportable 12/17/17 04:45: Sodium 143, Potassium 3.4 L, Chloride 96 L, Carbon Dioxide 39.0 H, Anion Gap 8, BUN 32 H, Creatinine 1.00, Estim Creat Clear Calc 76.95, Est GFR (MDRD) Af Amer 99, Est GFR (MDRD) Non-Af 81, BUN/Creatinine Ratio 32.1 H, Glucose 208 H, Calcium 8.9 12/17/17 05:58: POC Glucose 196 H Diagnostic Data Brain CT 12/12/17 07:34 IMPRESSION: No CT evidence of acute intracranial hemorrhage. Electronically Signed: Katya Wright MD at 8:54 EST , Service support , Chest X-Ray 12/16/17 12:08 IMPRESSION: Stable examination. Electronically Signed: Akhil Izquierdo MD at 12:39 EST Tel [phone], Service support , Current Medications Acetaminophen (Tylenol Liquid) 650 mg GT Q6H PRN PRN PRN Reason: FEVER Acetazolamide (Diamox) 125 mg GT BID [facility] Last Admin: 12/17/17 09:18 Dose: 125 mg Albuterol Sulfate (Ventolin Aerosols) 2.5 mg INHALATION Q6HWA.RT [facility] Last Admin: 12/17/17 06:25 Dose: 2.5 mg Aspirin (Aspirin, Baby) 81 mg GT DAILY [facility] Last Admin: 12/17/17 09:17 Dose: 81 mg Atorvastatin Calcium (Lipitor) 40 mg GT QHS [facility] Last Admin: 12/16/17 21:31 Dose: 40 mg Chlorhexidine Gluconate () 15 ml PO BID [facility] Last Admin: 12/17/17 09:18 Dose: 15 ml Chlorhexidine Gluconate () 1 each TOPICAL DAILY [facility] Last Admin: 12/17/17 04:48 Dose: 1 each Clopidogrel Bisulfate (Plavix) 75 mg GT DAILY [facility] Last Admin: 12/17/17 09:18 Dose: 75 mg Dextrose (D50w Syringe) 0 gm IV X1 PRN; Protocol PRN Reason: Hypoglycemia Famotidine (Pepcid) 20 mg GT BID [facility] Last Admin: 12/17/17 09:18 Dose: 20 mg Glucagon () 1 mg IM .X1 PRN PRN Reason: Hypoglycemia Heparin Sodium (Porcine) (Heparin Na) 5,000 unit SC Q8 [facility] Last Admin: 12/17/17 06:00 Dose: 5,000 unit Sodium Chloride () 250 mls @ 15 mls/hr IV .[id number] PRN PRN Reason: SALINE FLUSH Sodium Chloride () 250 mls @ 15 mls/hr IV .[id number] PRN PRN Reason: SALINE FLUSH Last Admin: 12/16/17 21:29 Dose: 15 mls/hr Fentanyl () 100 mls @ 5 mls/hr IV .Q20H JUANY Last Admin: 12/16/17 22:42 Dose: 5 mls/hr Propofol (Diprivan) 1,000 mg in 100 mls @ 9.852 mls/hr CONT INF .[id number] [facility] Last Admin: 12/17/17 09:17 Dose: 9.852 mls/hr Enteral Nutritional Formula (Glucerna 1.5) 1,000 mls @ 15 mls/hr GT .Q48H [facility] Last Admin: 12/16/17 18:20 Dose: 15 mls/hr Furosemide 500 mg/ N/A 50 mls @ 2 mls/hr CONT INF .Q25H [facility] Last Admin: 12/17/17 04:48 Dose: 2 mls/hr Piperacillin Sod/Tazobactam Sod (Zosyn) 3.375 gm in 50 mls @ 12.5 mls/hr IV Q8 [facility] Stop: 12/23/17 09:59 Last Admin: 12/17/17 05:08 Dose: 12.5 mls/hr Insulin Human Lispro (Humalog Kwikpen (Bkc)) 0 unit SQ Q6 [facility]; Protocol Last Admin: 12/17/17 06:00 Dose: 2 units Magnesium Hydroxide (Milk Of Magnesia) 30 ml PO DAILY PRN PRN PRN Reason: Constipation Methylprednisolone (Solu-Medrol) 40 mg IV Q6 [facility] Last Admin: 12/17/17 06:01 Dose: 40 mg Polyethylene Glycol (Miralax) 17 gm GT BID [facility] Last Admin: 12/17/17 09:18 Dose: 17 gm Potassium Bicarb/Potassium Chloride (Potassium Chl 25 Meq Eff (For Liquid)) 25 meq GT BID [facility] Last Admin: 12/17/17 09:18 Dose: 25 meq Senna/Docusate Sodium (Senokot-S, Anne-Marie-Colace) 2 tablet GT BID [facility] Last Admin: 12/17/17 09:19 Dose: Not Given Sodium Chloride () 5 - 30 ml IV UD PRN PRN Reason: SALINE FLUSH Last Admin: 12/17/17 06:01 Dose: 10 ml Medical Necessity - Tobacco Use Smoking Status: Current every day smoker Assessment/Plan All Active Problems (Last Updated 11/10/17 @ 12:14 by Brennon Maloney [employer]) Acute respiratory failure with hypoxia and hypercapnia (Acute) Pneumococcal pneumonia (Acute) Metabolic encephalopathy (Acute) Heart failure with reduced ejection fraction (Acute) Chest pain (Resolved) Respiratory failure, acute (Resolved) 1. Acute hypoxic and hyeprcarbic respiratory failure due to CHF exacerbation still intubated and sedated. oxygebn requirements now at FiO2 of 55%. Urine output was 5.7 L as well as 24 hours and is in negative balance by about 3 L. Weight is down to 334 pounds, from admission weight of 382 pounds IV Lasix drip and metolazone. Breathing treatments. Remains intubated and sedated and RASS score is 0 2. ACute diastolic CHF exacerbation has history of ischemic cardiomyopathy now on lasix drip and metolazone echo: showed normal LV function, unable to quantify RVSP. EF was 60% BP running low, with MAP in the 50s; sedation reduced to assess if it will get better. 3. Sepsis, unclear source of infection Still running a low-grade fever. However he had a leukocytosis. He remains on IV Zosyn. Blood cultures showed no growth and respiratory panel also showed no growth. Urine culture was also negative. 4. Metabolic alkalosis Bicarb is 39 today on acetazolamide 5. Hypotension: Likely due to diuresis and also sedatives. BP meds on hold. Blood pressure running in the 90s with MEP in the 50s. Aim is for MEP above 65. sedatives reduced to see if it will help with hypotension 6. Hypokalemia: potassium still 3.4. Replaced, will monitor 7. CAD: on aspirin and plavix as well as statin 8. Diabetes mellitus: on ISS. accuchecks q6 9. EMILIA: currently on ventilator due to respiratory failure 10. Hypertension: losartan and carvedilol on hold o/a of hypotension. 11;. MOrbid obesity: BMI >50. DVT prophylaxis: heparin GI prophylaxis: famotidine COde status: full code. 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 Code Visit Inpatient E&M: 73112 Subs Hosp L3
--- NOTE | 2017-12-17 09:34 | PN.CARD_ITS ---
Subjectve: Patient intubated, sedated, still with high PEEP's of 15, and high FiO2 of around 55%. On IV Lasix drip. Telemetry shows normal sinus rhythm, rare PVCs. I's and O's show net -3.0 L overnight, bicarb is stable at 39. Objective: Vital Signs Temp Pulse Resp BP Pulse Ox 99.3 F H 65 14 95/39 L 92 12/17/17 07:00 12/17/17 08:55 12/17/17 08:55 12/17/17 07:00 12/17/17 08:55 Oxygen Flow Rate (L/min) 70 Oxygen Delivery Method Mechanical Ventilator Weight: 334 lb 14.115 oz Body Mass Index (BMI) 55.5 Finger Stick Blood Glucose 135 Intake and Output for Last 24 Hours 12/15/17 12/16/17 12/17/17 23:59 23:59 23:59 Intake Total 3845 / 3845 2692.5 / 2692.5 824.1 / 824.1 Output Total 3050 / 3050 5700 / 5700 800 / 800 Balance 795 / 795 -3007.5 / -3007.5 24.1 / 24.1 General: Awake, Alert, Oriented x 3 HEENT: PERRL, EOMI, Sclera Non Icteric Neck: Supple, Good ROM, No Lymph Node Enlargement Lungs: Clear to auscultation Cardiovascular: Regular Rhythm, Normal S1, Normal S2, No Murmurs, No Rubs, No Gallops Vascular: No Carotid Bruits, Normal Femoral Pulses, Normal Radial Pulses, Normal Dorsalis Pedal Pulse, Normal Posterior Tibial Pulses Abdomen: Bowel Sounds Present, Soft, Non Tender, No HSM, No Organomegaly Extremities: No Cyanosis, No Clubbing, Bilateral Edema +1 Neurological: No Focal Motor or Sensory Deficit 12/17/17 04:45: WBC 7.7, RBC 3.80 L, Hgb 10.6 L, Hct 35.5 L, MCV 93.4, MCH 27.9, MCHC 29.9 L, RDW 14.8 H, RDW Differential 48.2 H, Plt Count 258, MPV 9.7, Immature Gran % (Auto) 0.300, Neut % (Auto) 84.6 H, Lymph % (Auto) 10.4 L, [place] % (Auto) 4.6, Eos % (Auto) 0.1, Baso % (Auto) 0.0, Absolute Neuts (auto) 6.5, Total Counted Not Reportable 12/17/17 04:45: Sodium 143, Potassium 3.4 L, Chloride 96 L, Carbon Dioxide 39.0 H, Anion Gap 8, BUN 32 H, Creatinine 1.00, Est GFR (MDRD) Af Amer 99, Est GFR (MDRD) Non-Af 81, BUN/Creatinine Ratio 32.1 H, Glucose 208 H, Calcium 8.9 Rhythm: EKG: ECHO: Stress Test: Cardiac Cath: PCI: CT Surgery: Holter monitor: EPS: PPM: CXR: Chest CT Scan: Medical Necessity - Tobacco Use Smoking Status: Current every day smoker Assessment/Plan 1. Coronary artery disease: Patient has no significant troponin release despite having known coronary artery disease. He has a known occluded right coronary artery, with collateral from left to right, and is status post angioplasty and stenting to his LAD in 2012 and left circumflex in June 2017. Patient has had no malignant arrhythmias, and apparently presented with respiratory distress possibly due to pulmonary source of infection. He is being treated with broad- spectrum antibiotics and is on no pressor support at this time. Patient does have evidence of right-sided heart failure and unknown pulmonary pressures by echocardiogram on day of admission. His EF was estimated to be 60% although his imaging was technically difficult. He is currently undergoing diuresis with a Lasix drip to assist with decompressing his right side, as well as to facilitate extubation. Patient had a failed weaning trial on Tuesday with subsequent trache balloon rupture requiring emergent reintubation. Would recommend continuing IV diuresis with IV Lasix until the patient has reached his dry weight, and his lower extremity edema has resolved. Would recommend a net negative at 2.0 L daily if his blood pressure and bicarbonate tolerated.. Patient's bicarbonate is normalizing with Diamox therapy. Recommend continuing Diamox therapy. Chest x-ray shows improved pulmonary edema, and his oxygen saturations are satisfactory. At this point with the patient's challenges with weaning off the ventilator, he may have transient cardiac ischemia while he is weaning. For this reason I would recommend obtaining permission from his power of industrial services worker to proceed with a right and left heart catheterization if we are not able to get him off the ventilator by Tuesday. His [place] catheter may be left in to facilitate tailoring his IV diuretic therapy to facilitate weaning from his ventilator. If his catheterization shows no correctable coronary disease, and if we are unable to get more the ventilator, he may require tracheostomy for additional weaning. Would recommend he continue his baby aspirin, Plavix, and hold his antihypertensives given his infection and hypotension. He has not required pressor agents at this time. 2. Obstructive sleep apnea: The patient is evidence of pulmonary hypertension and right-sided heart failure most likely result of obstructive sleep apnea. He is on chronic O2 therapy at home as well. Patient may be preload dependent so if his blood pressure deteriorates with IV diuresis, he may require discontinuation of IV diuretic therapy. 3. Hyperlipidemia: Continue statin based medications. 4. Thank you very much for the opportunity to participate in the cardiac care of your patient. Please let Dr. Li know once his POA arrives. Code Visit Inpatient E&M: 15509 Subs Hosp L2
--- NOTE | 2017-12-17 09:39 | PN_ITS ---
Subjective: Patient seen and examined. He remains intubated and sedated. He is remains on IV lasix drip. Blood pressure is running low with MAP in the 50s. Labs and vitals reviewed. He is able to respond to questions and denies any chest pain, fever chills, abdominal pain, diarrhea or vomiting. Review of systems otherwise negative. Vitals/I&O's: Vital Signs Temp Pulse Resp BP Pulse Ox 99.3 F H 65 14 95/39 L 92 12/17/17 07:00 12/17/17 08:55 12/17/17 08:55 12/17/17 07:00 12/17/17 08:55 Oxygen Flow Rate (L/min) 70 Oxygen Delivery Method Mechanical Ventilator Weight: 334 lb 14.115 oz Body Mass Index (BMI) 55.5 Finger Stick Blood Glucose 135 Intake and Output for Last 24 Hours 12/15/17 12/16/17 12/17/17 23:59 23:59 23:59 Intake Total 3845 / 3845 2692.5 / 2692.5 824.1 / 824.1 Output Total 3050 / 3050 5700 / 5700 800 / 800 Balance 795 / 795 -3007.5 / -3007.5 24.1 / 24.1 General: Alert, Cooperative, No apparent distress, - - remains intubated HEENT: Atraumatic, PERRLA, EOMI, Normocephalic Oral: Moist Mucosa Neck: Supple, No JVD, Negative Carotid Bruits Lungs: - - has mildly reduced breath sounds bibasally, no wheezes or crackles. Cardiovascular: Regular rate, Regular Rhythm, Normal S1, Normal S2, No murmurs Abdomen: Bowel Sounds Present, Soft, Non Tender, Non-Distended, No Hepato- splenomegaly Extremities: No clubbing, No cyanosis, No edema, Capillary Refill Less than 3 Seconds Skin: No rashes, No breakdown Musculoskeletal: No Tenderness to Palpation of Joints or Extremities Lymphatic: No Cervical, Supraclavicular, or Inguinal Adenopathy Neurological: Neuro grossly intact, - - intubated,sedated, RASS score is 0 Psych/Mental Status: Normal Affect Microbiology Past 72 Hours 12/12/17 07:30 Blood Culture (Wb) - Anticubital Left Blood Culture - Final No growth in 5 days. 12/13/17 06:50 Sputum, Induced/Lukens Gram Stain - Final 12/13/17 06:50 Sputum, Induced/Lukens Respiratory Culture - Final Streptococcus pneumoniae 12/16/17 12:35 Sputum, Induced/Lukens Gram Stain - Final 12/12/17 07:45 Sputum, Tracheal Aspirate Gram Stain - Final 12/12/17 07:45 Sputum, Tracheal Aspirate Respiratory Culture - Final Yeast 12/12/17 08:20 Blood Culture (Wb) - Anticubital Right Blood Culture - Preliminary No growth in 48 hours. 12/12/17 09:05 Urine Catheter - Catheter Urine Culture - Final Culture exhibits no growth. Laboratory Results 12/16/17 11:11: POC Glucose 238 H 12/16/17 16:23: POC Glucose 207 H 12/16/17 23:40: POC Glucose 220 H 12/17/17 04:45: WBC 7.7, RBC 3.80 L, Hgb 10.6 L, Hct 35.5 L, MCV 93.4, MCH 27.9, MCHC 29.9 L, RDW 14.8 H, RDW Differential 48.2 H, Plt Count 258, MPV 9.7, Immature Gran % (Auto) 0.300, Neut % (Auto) 84.6 H, Lymph % (Auto) 10.4 L, [place] % (Auto) 4.6, Eos % (Auto) 0.1, Baso % (Auto) 0.0, Absolute Neuts (auto) 6.5, Absolute Lymphs (auto) 0.80 L, Total Counted Not Reportable 12/17/17 04:45: Sodium 143, Potassium 3.4 L, Chloride 96 L, Carbon Dioxide 39.0 H, Anion Gap 8, BUN 32 H, Creatinine 1.00, Estim Creat Clear Calc 76.95, Est GFR (MDRD) Af Amer 99, Est GFR (MDRD) Non-Af 81, BUN/Creatinine Ratio 32.1 H, Glucose 208 H, Calcium 8.9 12/17/17 05:58: POC Glucose 196 H Diagnostic Data Brain CT 12/12/17 07:34 IMPRESSION: No CT evidence of acute intracranial hemorrhage. Electronically Signed: Katya Wright MD at 8:54 EST , Service support , Chest X-Ray 12/16/17 12:08 IMPRESSION: Stable examination. Electronically Signed: Akhil Izquierdo MD at 12:39 EST Tel [phone], Service support , Current Medications Acetaminophen (Tylenol Liquid) 650 mg GT Q6H PRN PRN PRN Reason: FEVER Acetazolamide (Diamox) 125 mg GT BID [facility] Last Admin: 12/17/17 09:18 Dose: 125 mg Albuterol Sulfate (Ventolin Aerosols) 2.5 mg INHALATION Q6HWA.RT [facility] Last Admin: 12/17/17 06:25 Dose: 2.5 mg Aspirin (Aspirin, Baby) 81 mg GT DAILY [facility] Last Admin: 12/17/17 09:17 Dose: 81 mg Atorvastatin Calcium (Lipitor) 40 mg GT QHS [facility] Last Admin: 12/16/17 21:31 Dose: 40 mg Chlorhexidine Gluconate () 15 ml PO BID [facility] Last Admin: 12/17/17 09:18 Dose: 15 ml Chlorhexidine Gluconate () 1 each TOPICAL DAILY [facility] Last Admin: 12/17/17 04:48 Dose: 1 each Clopidogrel Bisulfate (Plavix) 75 mg GT DAILY [facility] Last Admin: 12/17/17 09:18 Dose: 75 mg Dextrose (D50w Syringe) 0 gm IV X1 PRN; Protocol PRN Reason: Hypoglycemia Famotidine (Pepcid) 20 mg GT BID [facility] Last Admin: 12/17/17 09:18 Dose: 20 mg Glucagon () 1 mg IM .X1 PRN PRN Reason: Hypoglycemia Heparin Sodium (Porcine) (Heparin Na) 5,000 unit SC Q8 [facility] Last Admin: 12/17/17 06:00 Dose: 5,000 unit Sodium Chloride () 250 mls @ 15 mls/hr IV .[id number] PRN PRN Reason: SALINE FLUSH Sodium Chloride () 250 mls @ 15 mls/hr IV .[id number] PRN PRN Reason: SALINE FLUSH Last Admin: 12/16/17 21:29 Dose: 15 mls/hr Fentanyl () 100 mls @ 5 mls/hr IV .Q20H [facility] Last Admin: 12/16/17 22:42 Dose: 5 mls/hr Propofol (Diprivan) 1,000 mg in 100 mls @ 9.852 mls/hr CONT INF .[id number] [facility] Last Admin: 12/17/17 09:17 Dose: 9.852 mls/hr Enteral Nutritional Formula (Glucerna 1.5) 1,000 mls @ 15 mls/hr GT .Q48H [facility] Last Admin: 12/16/17 18:20 Dose: 15 mls/hr Furosemide 500 mg/ N/A 50 mls @ 2 mls/hr CONT INF .Q25H [facility] Last Admin: 12/17/17 04:48 Dose: 2 mls/hr Piperacillin Sod/Tazobactam Sod (Zosyn) 3.375 gm in 50 mls @ 12.5 mls/hr IV Q8 [facility] Stop: 12/23/17 09:59 Last Admin: 12/17/17 05:08 Dose: 12.5 mls/hr Insulin Human Lispro (Humalog Kwikpen (Bkc)) 0 unit SQ Q6 [facility]; Protocol Last Admin: 12/17/17 06:00 Dose: 2 units Magnesium Hydroxide (Milk Of Magnesia) 30 ml PO DAILY PRN PRN PRN Reason: Constipation Methylprednisolone (Solu-Medrol) 40 mg IV Q6 [facility] Last Admin: 12/17/17 06:01 Dose: 40 mg Polyethylene Glycol (Miralax) 17 gm GT BID [facility] Last Admin: 12/17/17 09:18 Dose: 17 gm Potassium Bicarb/Potassium Chloride (Potassium Chl 25 Meq Eff (For Liquid)) 25 meq GT BID [facility] Last Admin: 12/17/17 09:18 Dose: 25 meq Senna/Docusate Sodium (Senokot-S, Anne-Marie-Colace) 2 tablet GT BID [facility] Last Admin: 12/17/17 09:19 Dose: Not Given Sodium Chloride () 5 - 30 ml IV UD PRN PRN Reason: SALINE FLUSH Last Admin: 12/17/17 06:01 Dose: 10 ml Medical Necessity - Tobacco Use Smoking Status: Current every day smoker Assessment/Plan All Active Problems (Last Updated 11/10/17 @ 12:14 by Brennon Maloney [employer]-C) Acute respiratory failure with hypoxia and hypercapnia (Acute) Pneumococcal pneumonia (Acute) Metabolic encephalopathy (Acute) Heart failure with reduced ejection fraction (Acute) Chest pain (Resolved) Respiratory failure, acute (Resolved) 1. Acute hypoxic and hyeprcarbic respiratory failure due to CHF exacerbation * still intubated and sedated. oxygebn requirements now at FiO2 of 55%. * Urine output was 5.7 L as well as 24 hours and is in negative balance by about 3 L. Weight is down to 334 pounds, from admission weight of 382 pounds * IV Lasix drip and metolazone. * Breathing treatments. * Remains intubated and sedated and RASS score is 0 * 2. ACute diastolic CHF exacerbation * has history of ischemic cardiomyopathy * now on lasix drip and metolazone * echo: showed normal LV function, unable to quantify RVSP. EF was 60% * BP running low, with MAP in the 50s; sedation reduced to assess if it will get better. * 3. Sepsis, unclear source of infection * Still running a low-grade fever. However he had a leukocytosis. He remains on IV Zosyn. * Blood cultures showed no growth and respiratory panel also showed no growth. Urine culture was also negative. * * 4. Metabolic alkalosis * Bicarb is 39 today * on acetazolamide * 5. Hypotension: * Likely due to diuresis and also sedatives. * BP meds on hold. Blood pressure running in the 90s with MEP in the 50s. Aim is for MEP above 65. * sedatives reduced to see if it will help with hypotension * 6. Hypokalemia: potassium still 3.4. Replaced, will monitor 7. CAD: on aspirin and plavix as well as statin 8. Diabetes mellitus: on ISS. accuchecks q6 9. EMILIA: currently on ventilator due to respiratory failure 10. Hypertension: losartan and carvedilol on hold o/a of hypotension. 11;. MOrbid obesity: BMI >50. DVT prophylaxis: heparin GI prophylaxis: famotidine COde status: full code. IRWIN is his healthcare fence installer helper. Code Visit Inpatient E&M: 88019 Subs Hosp L3
--- NOTE | 2017-12-17 10:22 | PCM.PN.HOSP ---
Patient Problems: Active and Suspected Problems (Last Updated 12/25/17 @ 08:22 by Juan Manuel Subramanian DO) Aspiration pneumonia due to food (regurgitated) (Acute) Subjective: Patient is scheduled for cardiac cath in the morning. Still on ventilator. No fever. Vitals/I&O's: Vital Signs Temp Pulse Resp BP Pulse Ox 99.2 F H 71 14 93/61 97 12/28/17 04:00 12/28/17 06:00 12/28/17 06:00 12/28/17 06:00 12/28/17 06:00 Oxygen Flow Rate (L/min) 50 Oxygen Delivery Method Mechanical Ventilator Weight: 309 lb 11.991 oz Body Mass Index (BMI) 55.5 Finger Stick Blood Glucose 193 Intake and Output for Last 24 Hours 12/26/17 12/27/17 12/28/17 23:59 23:59 23:59 Intake Total 1533.7 / 1533.7 2787.4 / 2787.4 869.1 / 869.1 Output Total 1950 / 1950 2250 / 2250 1350 / 1350 Balance -416.3 / -416.3 537.4 / 537.4 -480.9 / -480.9 General: Lethargic, - - On IV propofol, sedated HEENT: Atraumatic, PERRLA, EOMI, Normocephalic Neck: Supple, No JVD, Negative Carotid Bruits Lungs: Diminished, Short of Breath, - - On vent support Cardiovascular: Regular rate, No murmurs Abdomen: Bowel Sounds Present, Soft, Non Tender, Non-Distended, - - Butler catheter Extremities: Capillary Refill Less than 3 Seconds, Edema Skin: No rashes, No breakdown Musculoskeletal: No Tenderness to Palpation of Joints or Extremities Neurological: Cranial nerves II-XII grossly intact Psych/Mental Status: Normal Affect, Appropriate Microbiology Past 72 Hours 12/23/17 08:30 Urine Catheter - Butler Urine Culture - Final Yeast, not Audra albicans 12/23/17 08:50 Blood Culture (Wb) - Right Wrist Blood Culture - Preliminary No growth in 48 hours. 12/23/17 08:40 Blood Culture (Wb) - Line Draw Blood Culture - Preliminary No growth in 48 hours. Laboratory Results 12/27/17 12:49: POC Glucose 139 H 12/27/17 17:29: POC Glucose 131 H 12/27/17 23:06: POC Glucose 129 H 12/28/17 04:25: WBC 8.5, RBC 4.50 L, Hgb 12.4 L, Hct 41.4, MCV 92.0, MCH 27.6, MCHC 30.0 L, RDW 14.9 H, RDW Differential 48.7 H, Plt Count 144 L, MPV 12.5 H, Immature Gran % (Auto) 0.600, Neut % (Auto) 70.8 H, Lymph % (Auto) 21.9, [place] % (Auto) 5.3, Eos % (Auto) 1.3, Baso % (Auto) 0.1, Absolute Neuts (auto) 6.0, Absolute Lymphs (auto) 1.87, Total Counted Not Reportable 12/28/17 04:25: Sodium 150 H, Potassium 3.3 L, Chloride 109 H, Carbon Dioxide 36.0 H, Anion Gap 5, BUN 30 H, Creatinine 0.70, Estim Creat Clear Calc 109.93, Est GFR (MDRD) Af Amer 148, Est GFR (MDRD) Non-Af 122, BUN/Creatinine Ratio 42.8 H, Glucose 79, Calcium 8.6 Current Medications Acetaminophen (Tylenol Liquid) 650 mg GT Q6H PRN PRN PRN Reason: FEVER Last Admin: 12/24/17 00:16 Dose: 650 mg Albuterol Sulfate (Ventolin Aerosols) 2.5 mg INHALATION Q6HWA.RT [facility] Last Admin: 12/28/17 07:03 Dose: 2.5 mg Aspirin (Aspirin, Baby) 81 mg GT DAILY [facility] Last Admin: 12/27/17 08:43 Dose: 81 mg Atorvastatin Calcium (Lipitor) 40 mg GT QHS [facility] Last Admin: 12/27/17 23:09 Dose: 40 mg Chlorhexidine Gluconate () 15 ml PO BID [facility] Last Admin: 12/27/17 22:00 Dose: 15 ml Chlorhexidine Gluconate () 1 each TOPICAL DAILY [facility] Last Admin: 12/28/17 06:04 Dose: 1 each Clopidogrel Bisulfate (Plavix) 75 mg GT DAILY [facility] Last Admin: 12/27/17 08:43 Dose: 75 mg Dextrose (D50w Syringe) 0 gm IV X1 PRN; Protocol PRN Reason: Hypoglycemia Diphenhydramine HCl (Benadryl) 50 mg PO X1 ONE Stop: 12/28/17 08:01 Famotidine (Pepcid) 20 mg GT BID [facility] Last Admin: 12/27/17 23:08 Dose: 20 mg Furosemide (Lasix) 40 mg IV BID@1000,1800 [facility] Last Admin: 12/27/17 17:25 Dose: 40 mg Glucagon () 1 mg IM .X1 PRN PRN Reason: Hypoglycemia Heparin Sodium (Porcine) (Heparin Na) 5,000 unit SC Q8 [facility] Last Admin: 12/28/17 06:03 Dose: Not Given Sodium Chloride () 250 mls @ 15 mls/hr IV .[id number] PRN PRN Reason: SALINE FLUSH Sodium Chloride () 250 mls @ 15 mls/hr IV .[id number] PRN PRN Reason: SALINE FLUSH Last Admin: 12/16/17 21:29 Dose: 15 mls/hr Propofol (Diprivan) 1,000 mg in 100 mls @ 9.852 mls/hr CONT INF .[id number] [facility] Last Admin: 12/28/17 05:35 Dose: 9.852 mls/hr Fentanyl () 100 mls @ 7.5 mls/hr IV .Q40H [facility] Last Admin: 12/27/17 08:41 Dose: 7.5 mls/hr Enteral Nutritional Formula (Vital Af 1.2 Jeremiah Liquid) 1,000 mls @ 65 mls/hr GT .[id number] [facility] Last Admin: 12/28/17 01:50 Dose: Not Given Sodium Chloride () 1,000 mls @ 0 mls/hr IV .Q0M JUANY Sodium Chloride () 1,000 mls @ 0 mls/hr IV .Q0M [facility] Insulin Glargine (Lantus (Bkc)) 35 units SC BID [facility] Last Admin: 12/27/17 23:10 Dose: 35 u Insulin Human Lispro (Humalog Kwikpen (Bk)) 0 unit SC Q6 [facility]; Protocol Last Admin: 12/28/17 06:03 Dose: Not Given Levofloxacin (Levaquin Tablet) 750 mg PO DAILY@0600 [facility] Last Admin: 12/28/17 06:04 Dose: Not Given Magnesium Hydroxide (Milk Of Magnesia) 30 ml PO DAILY PRN PRN PRN Reason: Constipation Metronidazole (Flagyl) 500 mg PO Q8 [facility] Stop: 12/28/17 22:01 Last Admin: 12/28/17 06:03 Dose: Not Given Polyethylene Glycol (Miralax) 17 gm GT DAILY PRN PRN PRN Reason: Constipation Potassium Bicarb/Potassium Chloride (Potassium Chl 25 Meq Eff (For Liquid)) 25 meq GT DAILY JUANY Last Admin: 12/27/17 08:44 Dose: 25 meq Prednisone () 40 mg GT DAILY@0800 [facility] Sodium Chloride () 5 - 30 ml IV UD PRN PRN Reason: SALINE FLUSH Last Admin: 12/27/17 15:46 Dose: 10 ml Medical Necessity - Tobacco Use Smoking Status: Current every day smoker Assessment/Plan All Active Problems (Last Updated 12/25/17 @ 08:22 by Juan Manuel Subramanian DO) Aspiration pneumonia due to food (regurgitated) (Acute) Heart failure with preserved ejection fraction (Acute) GALILEA (acute kidney injury) (Acute) Klebsiella pneumonia (Acute) Acute respiratory failure with hypoxia and hypercapnia (Acute) Pneumococcal pneumonia (Acute) Metabolic encephalopathy (Resolved) Chest pain (Resolved) Respiratory failure, acute (Resolved) This is a 57 gentleman with multiple comorbidities including chronic combined respiratory failure, obstructive sleep apnea, CAD with multiple stents, history of cardiac arrest was admitted from half-way for shortness of breath for 5 days prior to admission. Initial chest x-ray showed pulmonary congestion. EKG in the ED shows sinus rhythm with diffuse T wave inversions and initial troponin 0.022. Patient was emergently intubated in ED and admitted to ICU for respiratory arrest. 1 acute on chronic hypoxic and hypercarbic combined respiratory failure: Currently patient is euvolemic. On patient is 50% FiO2. Ventilatory being managed by evening or night nurse supervisor. Tracheostomy postponed to Tuesday. 2. Bilateral right lower lobe and left lower lobe Streptococcus pneumoniae and Klebsiella oxytoca pneumonia, right upper lobe subsegmental atelectasis: Patient on Levaquin since . Pulmonary tolerating. 3. Acute systolic and diastolic heart failure: Currently euvolemic (EF 25% by LV gram). EF 60% on echo 12/12 but echo was suboptimal. Lasix was started today with 40 mg IV twice daily. Patient also has moderate global LV dysfunction with right ventricular enlargement. The patient had right and left heart cath by Dr. Li on 12/28 with EF 25% by LV gram shows severe global LV systolic dysfunction, nonobstructive coronary artery has normal pulmonary hemodynamics parameter. Right-sided pressures normal. 4. Electrolyte imbalance: Hyponatremia, hypochloremia: Sodium 150, chloride 111, K3.9. Free water supplement. 5. Acute kidney injury: Currently creatinine 0.83, BUN 42. Estimated creatinine clearance 92. GALILEA resolved. 6. Fevers no fever since 12/25. Low-grade fever in the morning hours of 12/25, T-max 99.8. BCx on 12/12 and 12/23 negative TTE on the negative UA negative x 3. urine culture of 12/12 no growth. Urine culture, preliminary from 12/23 shows yeastlike organism Sputum culture positive of Streptococcus pneumoniae, Klebsiella oxytoca and yeast. BCx negative on the and 7. Diabetes mellitus type 2: Blood sugar is reasonably controlled. Less than 200 mg/dL. Blood sugars are running lower side, 70 and 80 mg/dL on Accu-Cheks. Lantus decreased to 30 units subcu twice daily on Accu-Chek before meals and at bedtime covered with insulin lispro. 8. DVT prophylaxis: Heparin 5000 units every 8 hourly Discharge plan: Anticipate LTAC after tracheostomy Microbiology Past 72 Hours 12/23/17 08:30 Urine Catheter - Butler Urine Culture - Final Yeast, not Audra albicans 12/23/17 08:50 Blood Culture (Wb) - Right Wrist Blood Culture - Preliminary No growth in 48 hours. 12/23/17 08:40 Blood Culture (Wb) - Line Draw Blood Culture - Preliminary No growth in 48 hours. Laboratory Results 12/27/17 12:49: POC Glucose 139 H 12/27/17 17:29: POC Glucose 131 H 12/27/17 23:06: POC Glucose 129 H 12/28/17 04:25: WBC 8.5, RBC 4.50 L, Hgb 12.4 L, Hct 41.4, MCV 92.0, MCH 27.6, MCHC 30.0 L, RDW 14.9 H, RDW Differential 48.7 H, Plt Count 144 L, MPV 12.5 H, Immature Gran % (Auto) 0.600, Neut % (Auto) 70.8 H, Lymph % (Auto) 21.9, [place] % (Auto) 5.3, Eos % (Auto) 1.3, Baso % (Auto) 0.1, Absolute Neuts (auto) 6.0, Absolute Lymphs (auto) 1.87, Total Counted Not Reportable 12/28/17 04:25: Sodium 150 H, Potassium 3.3 L, Chloride 109 H, Carbon Dioxide 36.0 H, Anion Gap 5, BUN 30 H, Creatinine 0.70, Estim Creat Clear Calc 109.93, Est GFR (MDRD) Af Amer 148, Est GFR (MDRD) Non-Af 122, BUN/Creatinine Ratio 42.8 H, Glucose 79, Calcium 8.6 Code Visit Inpatient E&M: 74822 Subs Hosp L3
[2017-12-17 11:25] LABS: Bedside Glucose 215 mg/dL (70-110)
[2017-12-17] MEDS: fentaNYL drip 100 ML 5 MCG IV (14:43)
[2017-12-17 16:35] LABS: Bedside Glucose 213 mg/dL (70-110)
[2017-12-17] MEDS: Atorvastatin Calcium 40 MG Tablet GT (21:08)
[2017-12-17] MEDS: Senna/Docusate Sodium 1 Tablet 2 TABLET GT (21:08)
[2017-12-18] VITALS (42 sets, daily range): BP systolic 93–122; BP diastolic 54–79; PULSE 15–81; RESP 14–19; TEMP 37.3–38.2; O2SAT 77–95
[2017-12-18] MEDS: Insulin Lispro 100 UNIT/ML INSULN.PEN SQ ×4 (00:17→17:21)
[2017-12-18 00:40] LABS: Bedside Glucose 225 mg/dL (70-110)
[2017-12-18] MEDS: fentaNYL drip 100 ML 5 MCG IV ×2 (01:59→13:40)
[2017-12-18] MEDS: Propofol 10MG/Ml 1,000 MG/100 ML Bottle 9.852 MG CONT INF ×4 (02:54→21:23)
[2017-12-18] MEDS: Furosemide 500 MG in Empty Viaflex 50 mL 1 EACH CONT INF (03:34)
[2017-12-18] MEDS: CHLORHEXIDINE GLUC 2% CLOTH 1 EACH TOWELETTE TOPICAL (06:01)
[2017-12-18] MEDS: Heparin Injection (Vial) 5,000 UNIT/ML VIAL 5000 UNIT SC ×3 (06:01→21:22)
[2017-12-18 06:21] LABS: Bedside Glucose 238 mg/dL (70-110)
[2017-12-18] MEDS: Albuterol 2.5 MG/3 ML VIAL.NEB. INHALATION ×3 (06:38→18:23)
--- NOTE | 2017-12-18 06:46 | PN_ITS ---
Subjective: The patient was seen and examined at the bedside this morning. Events from the last 24 hours have been reviewed. The patient is currently afebrile, hemodynamically stable and maintaining appropriate oxygen saturations with an FiO2 requirement of 60%. The patient was overall net -2 L yesterday. For the admission, he is now overall net -9 L. Per nursing report, the patient did have an episode of desaturation last evening into the 80s. Objective: The patient's most recent lab work, culture data and imaging studies have all been personally reviewed. Respiratory viral panel was negative. Surface echocardiogram revealed normal LV size and function with an ejection fraction of 60%. Sputum culture dated December 13 revealed evidence of Streptococcus pneumoniae. General: - - Intubated, sedated and mechanically ventilated HEENT: Atraumatic, PERRLA, Normocephalic Oral: No Gingival or Mucosal Lesions/ Ulcerations, - - Endotracheal and OG tubes in place Neck: Supple, No Nodes, Trachea Midline, - - Large neck circumference Lungs: No rhonchi, No wheeze, No rales, Diminished Cardiovascular: Regular rate, Regular Rhythm, Normal S1, Normal S2, No murmurs Abdomen: Bowel Sounds Present, Soft, Non Tender, Obese, - - Tolerating tube feeds Extremities: No clubbing, No cyanosis, Edema Skin: - - No significant change from previous Musculoskeletal: No Tenderness to Palpation of Joints or Extremities, No Muscle Wasting Lymphatic: No Cervical, Supraclavicular, or Inguinal Adenopathy Neurological: - - No focal neurological deficits. Patient is alert and able to follow simple commands. Vital Signs Temp Pulse Resp BP Pulse Ox 37.5 C H 68 14 107/66 94 12/18/17 04:00 12/18/17 06:38 12/18/17 06:38 12/18/17 04:00 12/18/17 06:35 Oxygen Flow Rate (L/min) 70 Oxygen Delivery Method Mechanical Ventilator Weight: 332 lb 0.258 oz Body Mass Index (BMI) 55.5 Finger Stick Blood Glucose 135 Intake and Output for Last 24 Hours 12/16/17 12/17/17 12/18/17 23:59 23:59 23:59 Intake Total 2692.5 / 2692.5 2110.1 / 2110.1 1323 / 1323 Output Total 5700 / 5700 4050 / 4050 1600 / 1600 Balance -3007.5 / -3007.5 -1939.9 / -1939.9 -277 / -277 Labs (Last 48 Hours) 12/16/17 12/16/17 12/16/17 11:11 16:23 23:40 WBC RBC Hgb Hct MCV MCH MCHC RDW RDW Differential Plt Count MPV Immature Gran % (Auto) Neut % (Auto) Lymph % (Auto) [place] % (Auto) Eos % (Auto) Baso % (Auto) Absolute Neuts (auto) Absolute Lymphs (auto) Total Counted Sodium Potassium Chloride Carbon Dioxide Anion Gap BUN Creatinine Estim Creat Clear Calc Est GFR (MDRD) Af Amer Est GFR (MDRD) Non-Af BUN/Creatinine Ratio Glucose Calcium POC Glucose 238 H 207 H 220 H 12/17/17 12/17/17 12/17/17 04:45 04:45 05:58 WBC 7.7 RBC 3.80 L Hgb 10.6 L Hct 35.5 L MCV 93.4 MCH 27.9 MCHC 29.9 L RDW 14.8 H RDW Differential 48.2 H Plt Count 258 MPV 9.7 Immature Gran % (Auto) 0.300 Neut % (Auto) 84.6 H Lymph % (Auto) 10.4 L [place] % (Auto) 4.6 Eos % (Auto) 0.1 Baso % (Auto) 0.0 Absolute Neuts (auto) 6.5 Absolute Lymphs (auto) 0.80 L Total Counted Not Reportable Sodium 143 Potassium 3.4 L Chloride 96 L Carbon Dioxide 39.0 H Anion Gap 8 BUN 32 H Creatinine 1.00 Estim Creat Clear Calc 76.95 Est GFR (MDRD) Af Amer 99 Est GFR (MDRD) Non-Af 81 BUN/Creatinine Ratio 32.1 H Glucose 208 H Calcium 8.9 POC Glucose 196 H 12/17/17 12/17/17 12/18/17 11:22 16:33 00:13 WBC RBC Hgb Hct MCV MCH MCHC RDW RDW Differential Plt Count MPV Immature Gran % (Auto) Neut % (Auto) Lymph % (Auto) [place] % (Auto) Eos % (Auto) Baso % (Auto) Absolute Neuts (auto) Absolute Lymphs (auto) Total Counted Sodium Potassium Chloride Carbon Dioxide Anion Gap BUN Creatinine Estim Creat Clear Calc Est GFR (MDRD) Af Amer Est GFR (MDRD) Non-Af BUN/Creatinine Ratio Glucose Calcium POC Glucose 215 H 213 H 225 H 12/18/17 06:12 WBC RBC Hgb Hct MCV MCH MCHC RDW RDW Differential Plt Count MPV Immature Gran % (Auto) Neut % (Auto) Lymph % (Auto) [place] % (Auto) Eos % (Auto) Baso % (Auto) Absolute Neuts (auto) Absolute Lymphs (auto) Total Counted Sodium Potassium Chloride Carbon Dioxide Anion Gap BUN Creatinine Estim Creat Clear Calc Est GFR (MDRD) Af Amer Est GFR (MDRD) Non-Af BUN/Creatinine Ratio Glucose Calcium POC Glucose 238 H Microbiology 12/12/17 08:20 Blood Culture (Wb) - Anticubital Right Blood Culture - Final No growth in 5 days. 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 12/13/17 06:50 Sputum, Induced/Lukens Gram Stain - Final 12/13/17 06:50 Sputum, Induced/Lukens Respiratory Culture - Final Streptococcus pneumoniae Clinical Impression(s) from Imaging Studies Brain CT 12/12/17 07:34 IMPRESSION: No CT evidence of acute intracranial hemorrhage. Electronically Signed: Katya Wright MD at 8:54 EST , Service support , Chest X-Ray 12/12/17 07:40 IMPRESSION: Cardiomegaly and mild pulmonary congestion. Electronically Signed: Katya Wright MD at 8:02 EST , Service support , Chest X-Ray 12/15/17 06:34 IMPRESSION: All the support tubes are in good position. Residual increased markings in both lungs as described although there has been improvement as compared to prior study. Electronically Signed: Akhil Izquierdo MD at 11:07 EST Tel [phone], Service support , Chest X-Ray 12/16/17 12:08 IMPRESSION: Stable examination. Electronically Signed: Akhil Izquierdo MD at 12:39 EST Tel [phone], Service support , Medical Necessity - Tobacco Use Smoking Status: Current every day smoker Assessment/Plan All Active Problems (Last Updated 11/10/17 @ 12:14 by Brennon Maloney, JUNE-C) Acute respiratory failure with hypoxia and hypercapnia (Acute) Pneumococcal pneumonia (Acute) Metabolic encephalopathy (Acute) Heart failure with reduced ejection fraction (Acute) Chest pain (Resolved) Respiratory failure, acute (Resolved) RECOMMENDATIONS: 1. Continue continuous Lasix infusion today. Continue Diamox as ordered. 2. Continue IV Solu-Medrol 40 mg every 6 hours. 3. Wean FiO2 and PEEP as tolerated. 4. Continue antibiotics. 5. Continue tube feeds. 6. Continue bronchodilators as ordered. 7. Continue current sedation regimen with a goal to maintain a RASS of -1 to 1. 8. Continue appropriate ICU prophylaxis with subcutaneous heparin and Protonix. IMPRESSIONS: 1. Acute on chronic combined respiratory failure Likely secondary to decompensated heart failure in the setting of medical noncompliance, with superimposed bronchospastic airway disease and continued tobacco dependence likely contributing. While the patient appears to have normal systolic function on his most recent echocardiogram, I would certainly be concerned for the presence of underlying diastolic dysfunction. In addition, hi s weight is up significantly from that documented in November. The patient appears to be responding favorably to invasive mechanical ventilation and IV diuresis, with decreasing FiO2 requirements. The patient was started empirically on antibiotics early during his admission as he was noted to have spiked a fever. However, his infectious workup to date has been unrevealing. Continue scheduled bronchodilators and wean FiO2 as tolerated. In hopes of recruiting atelectatic lung, will continue the patient on increased PEEP settings. Physical therapy to work with patient and get him out of bed. Would plan to keep the patient's oxygen saturations 88-92%, to prevent paradoxical CO2 retention. Continue current sedation regimen as ordered. Will transition the patient from bolus of IV Lasix to continuous infusion. Scheduled potassium will also be started. We will plan to continue antibiotics as ordered. 2. Metabolic encephalopathy Improved. Likely secondary to acute on chronic CO2 retention. Anticipate improvement with correction of the patient's underlying metabolic derangements. Minimize sedation as tolerated. 3. Decompensated heart failure/history of ischemic cardiomyopathy The patient's weight is significantly elevated when compared to that documented from November. Diuretics will be continued accordingly. Restart the patient's beta-lori once he has been volume optimized. Initiate 1.5 L fluid restriction daily. 4. Diabetes mellitus Continue Accu-Cheks and sliding scale insulin coverage. The patient has been tolerant of tube feeds to date. 5. Obstructive sleep apnea The patient has a history of outpatient noncompliance with the use of nocturnal Pap therapy. He only utilizes supplemental oxygen on a nightly basis. 6. Ongoing tobacco dependence/super morbid obesity/history of medical noncompliance/hypertension Complicates care, management, recovery and prognosis. Nicotine replacement therapy can be utilized while admitted to the hospital. TIME: 35 minutes of critical care time, independent of procedures, was spent addressing the patient's acute on chronic combined respiratory failure, metabolic encephalopathy, decompensated heart failure, obstructive sleep apnea, review of all data and collaboration with the care team. ([id number]) Code Visit 9xxxx: [id number] Critical care first hour
[2017-12-18] MEDS: Famotidine 20 MG Tablet GT ×2 (08:37→21:21)
[2017-12-18] MEDS: Clopidogrel Bisulfate 75 MG Tablet GT (08:37)
[2017-12-18] MEDS: Aspirin 81 MG TAB.CHEW GT (08:37)
[2017-12-18] MEDS: Polyethylene Glycol 3350 17 GM PACKET GT ×2 (08:38→21:21)
[2017-12-18] MEDS: AcetaZOLAMIDE 250 MG Tablet 125 MG GT ×2 (08:38→21:22)
[2017-12-18] MEDS: Chlorhexidine 15 ML PO ×2 (08:39→21:22)
[2017-12-18 08:47] LABS: Anion Gap 4 (5-15); BUN 41 mg/dL (7-18); BUN/Creat Ratio 41.8 RATIO (10-20); Calcium,Total 8.7 mg/dL (8.5-10.1); Chloride 99 mmol/L (98-107); Creatinine, Serum 0.98 mg/dL (0.70-1.30); EST Glomerular Filtration Rate 83 mL/min (>60); Est Glom Filt Rate - Afr Amer 100 mL/min (>60); Estimated Creatinine Clearance 78.52 ml/min; Glucose 203 mg/dL (74-106); Potassium 3.6 mmol/L (3.5-5.1); Sodium Level 143 mmol/L (136-145)
--- NOTE | 2017-12-18 09:10 | PCM.PN.HOSP ---
Subjective: Patient seen and examined. He remains intubated and sedated. He is unable to tolerate spontaneous weaning trial due to his requiring high amounts of oxygen. FiO2 was 10 on 55%. Patient is alert and calm. RA SS score is 0. He denies any fever, cough or chest pain, shortness of breath, abdominal pain, diarrhea vomiting. Patient still has a low-grade fever peaking around 99.7 Fahrenheit. Sputum Gram stain and culture grew Klebsiella and strep pneumoniae. Remains on IV Zosyn. Vitals/I&O's: Vital Signs Temp Pulse Resp BP Pulse Ox 99.7 F H 66 14 112/69 95 12/18/17 08:00 12/18/17 08:00 12/18/17 08:00 12/18/17 08:00 12/18/17 08:00 Oxygen Flow Rate (L/min) 70 Oxygen Delivery Method Mechanical Ventilator Weight: 332 lb 0.258 oz Body Mass Index (BMI) 55.5 Finger Stick Blood Glucose 135 Intake and Output for Last 24 Hours 12/16/17 12/17/17 12/18/17 23:59 23:59 23:59 Intake Total 2692.5 / 2692.5 2110.1 / 2110.1 1373 / 1373 Output Total 5700 / 5700 4050 / 4050 1800 / 1800 Balance -3007.5 / -3007.5 -1939.9 / -1939.9 -427 / -427 General: Alert, Cooperative, No apparent distress, - - remains intubated HEENT: Atraumatic, PERRLA, EOMI, Normocephalic Oral: Moist Mucosa Neck: Supple, No JVD, Negative Carotid Bruits Lungs: - - has mildly reduced breath sounds bibasally, no wheezes or crackles. Cardiovascular: Regular rate, Regular Rhythm, Normal S1, Normal S2, No murmurs Abdomen: Bowel Sounds Present, Soft, Non Tender, Non-Distended, No Hepato-splenomegaly Extremities: No clubbing, No cyanosis, No edema, Capillary Refill Less than 3 Seconds Skin: No rashes, No breakdown Musculoskeletal: No Tenderness to Palpation of Joints or Extremities Lymphatic: No Cervical, Supraclavicular, or Inguinal Adenopathy Neurological: Neuro grossly intact, - - intubated,sedated, RASS score is 0 Psych/Mental Status: Normal Affect Microbiology Past 72 Hours 12/16/17 12:35 Sputum, Induced/Lukens Gram Stain - Final 12/16/17 12:35 Sputum, Induced/Lukens Respiratory Culture - Final Klebsiella oxytoca 12/12/17 08:20 Blood Culture (Wb) - Anticubital Right Blood Culture - Final No growth in 5 days. 12/12/17 07:30 Blood Culture (Wb) - Anticubital Left Blood Culture - Final No growth in 5 days. 12/13/17 06:50 Sputum, Induced/Lukens Gram Stain - Final 12/13/17 06:50 Sputum, Induced/Lukens Respiratory Culture - Final Streptococcus pneumoniae 12/12/17 07:45 Sputum, Tracheal Aspirate Gram Stain - Final 12/12/17 07:45 Sputum, Tracheal Aspirate Respiratory Culture - Final Yeast Laboratory Results 12/17/17 11:22: POC Glucose 215 H 12/17/17 16:33: POC Glucose 213 H 12/18/17 00:13: POC Glucose 225 H 12/18/17 06:12: POC Glucose 238 H 12/18/17 08:25: Sodium 143, Potassium 3.6, Chloride 99, Carbon Dioxide 40.0 H, Anion Gap 4 L, BUN 41 H, Creatinine 0.98, Estim Creat Clear Calc 78.52, Est GFR (MDRD) Af Amer 100, Est GFR (MDRD) Non-Af 83, BUN/Creatinine Ratio 41.8 H, Glucose 203 H, Calcium 8.7 Current Medications Acetaminophen (Tylenol Liquid) 650 mg GT Q6H PRN PRN PRN Reason: FEVER Acetazolamide (Diamox) 125 mg GT BID [facility] Last Admin: 12/18/17 08:38 Dose: 125 mg Albuterol Sulfate (Ventolin Aerosols) 2.5 mg INHALATION Q6HWA.RT [facility] Last Admin: 12/18/17 06:38 Dose: 2.5 mg Aspirin (Aspirin, Baby) 81 mg GT DAILY [facility] Last Admin: 12/18/17 08:37 Dose: 81 mg Atorvastatin Calcium (Lipitor) 40 mg GT QHS [facility] Last Admin: 12/17/17 21:08 Dose: 40 mg Chlorhexidine Gluconate () 15 ml PO BID [facility] Last Admin: 12/18/17 08:39 Dose: 15 ml Chlorhexidine Gluconate () 1 each TOPICAL DAILY [facility] Last Admin: 12/18/17 06:01 Dose: 1 each Clopidogrel Bisulfate (Plavix) 75 mg GT DAILY [facility] Last Admin: 12/18/17 08:37 Dose: 75 mg Dextrose (D50w Syringe) 0 gm IV X1 PRN; Protocol PRN Reason: Hypoglycemia Famotidine (Pepcid) 20 mg GT BID [facility] Last Admin: 12/18/17 08:37 Dose: 20 mg Glucagon () 1 mg IM .X1 PRN PRN Reason: Hypoglycemia Heparin Sodium (Porcine) (Heparin Na) 5,000 unit SC Q8 [facility] Last Admin: 12/18/17 06:01 Dose: 5,000 unit Sodium Chloride () 250 mls @ 15 mls/hr IV .[id number] PRN PRN Reason: SALINE FLUSH Sodium Chloride () 250 mls @ 15 mls/hr IV .[id number] PRN PRN Reason: SALINE FLUSH Last Admin: 12/16/17 21:29 Dose: 15 mls/hr Fentanyl () 100 mls @ 5 mls/hr IV .Q20H [facility] Last Admin: 12/18/17 01:59 Dose: 5 mls/hr Propofol (Diprivan) 1,000 mg in 100 mls @ 9.852 mls/hr CONT INF .[id number] [facility] Last Admin: 12/18/17 02:54 Dose: 9.852 mls/hr Enteral Nutritional Formula (Glucerna 1.5) 1,000 mls @ 15 mls/hr GT .Q48H [facility] Last Admin: 12/17/17 16:41 Dose: 15 mls/hr Furosemide 500 mg/ N/A 50 mls @ 2 mls/hr CONT INF .Q25H [facility] Last Admin: 12/18/17 03:34 Dose: 2 mls/hr Piperacillin Sod/Tazobactam Sod (Zosyn) 3.375 gm in 50 mls @ 12.5 mls/hr IV Q8 [facility] Stop: 12/23/17 09:59 Last Admin: 12/18/17 06:01 Dose: 12.5 mls/hr Insulin Human Lispro (Humalog Kwikpen (Bkc)) 0 unit SQ Q6 [facility]; Protocol Last Admin: 12/18/17 06:13 Dose: 3 units Magnesium Hydroxide (Milk Of Magnesia) 30 ml PO DAILY PRN PRN PRN Reason: Constipation Methylprednisolone (Solu-Medrol) 40 mg IV Q6 [facility] Last Admin: 12/18/17 06:02 Dose: 40 mg Polyethylene Glycol (Miralax) 17 gm GT BID [facility] Last Admin: 12/18/17 08:38 Dose: 17 gm Potassium Bicarb/Potassium Chloride (Potassium Chl 25 Meq Eff (For Liquid)) 25 meq GT BID [facility] Last Admin: 12/18/17 08:37 Dose: 25 meq Senna/Docusate Sodium (Senokot-S, Anne-Marie-Colace) 2 tablet GT BID [facility] Last Admin: 12/18/17 08:39 Dose: Not Given Sodium Chloride () 5 - 30 ml IV UD PRN PRN Reason: SALINE FLUSH Last Admin: 12/17/17 06:01 Dose: 10 ml Medical Necessity - Tobacco Use Smoking Status: Current every day smoker Assessment/Plan All Active Problems (Last Updated 11/10/17 @ 12:14 by Brennon Maloney, SENIOR [employer] ADMINISTRATOR-C) Acute respiratory failure with hypoxia and hypercapnia (Acute) Pneumococcal pneumonia (Acute) Metabolic encephalopathy (Acute) Heart failure with reduced ejection fraction (Acute) Chest pain (Resolved) Respiratory failure, acute (Resolved) 1. Acute hypoxic and hyeprcarbic respiratory failure due to CHF exacerbation still intubated and sedated. oxygen requirements at FiO2 of 55%. Unable to tolerate lower FiO2 levels; PEEP is at 15 in negative balance by 9L since admission, passed 4L of urine over last 24 hours; in negative balance by 1.9L on lasix drip and metolazone. Breathing treatments and IV steroids. RASS score is 0 2. ACute diastolic CHF exacerbation has history of ischemic cardiomyopathy still on lasix drip and metolazone echo: showed normal LV function, unable to quantify RVSP. EF was 60% 3. Ventilator associated pneumonia sputum cultured Klebsiella and pneumonia. Still having low dose fever continue IV zosyn 4. Metabolic alkalosis; likely due to contraction alkalosis Bicarb is 40 today on acetazolamide 5. Hypotension: Likely due to diuresis and also sedatives. BP meds remain on hold. WIll monitor. 6. Hypokalemia: Resolved. Potassium is 3.6 today. 7. CAD: on aspirin and plavix as well as statin 8. Diabetes mellitus: on ISS. accuchecks q6 9. EMILIA: currently on ventilator due to respiratory failure 10. Hypertension: losartan and carvedilol on hold o/a of hypotension. 11;. MOrbid obesity: BMI >50. Complicates care DVT prophylaxis: heparin GI prophylaxis: famotidine COde status: full code. IRWIN is his healthcare lamination operator. Code Visit Inpatient E&M: 82607 Subs Hosp L3
--- NOTE | 2017-12-18 09:17 | PN_ITS ---
Subjective: Patient seen and examined. He remains intubated and sedated. He is unable to tolerate spontaneous weaning trial due to his requiring high amounts of oxygen. FiO2 was 10 on 55%. Patient is alert and calm. RA SS score is 0. He denies any fever, cough or chest pain, shortness of breath, abdominal pain, diarrhea vomiting. Patient still has a low-grade fever peaking around 99.7 Fahrenheit. Sputum Gram stain and culture grew Klebsiella and strep pneumoniae. Remains on IV Zosyn. Vitals/I&O's: Vital Signs Temp Pulse Resp BP Pulse Ox 99.7 F H 66 14 112/69 95 12/18/17 08:00 12/18/17 08:00 12/18/17 08:00 12/18/17 08:00 12/18/17 08:00 Oxygen Flow Rate (L/min) 70 Oxygen Delivery Method Mechanical Ventilator Weight: 332 lb 0.258 oz Body Mass Index (BMI) 55.5 Finger Stick Blood Glucose 135 Intake and Output for Last 24 Hours 12/16/17 12/17/17 12/18/17 23:59 23:59 23:59 Intake Total 2692.5 / 2692.5 2110.1 / 2110.1 1373 / 1373 Output Total 5700 / 5700 4050 / 4050 1800 / 1800 Balance -3007.5 / -3007.5 -1939.9 / -1939.9 -427 / -427 General: Alert, Cooperative, No apparent distress, - - remains intubated HEENT: Atraumatic, PERRLA, EOMI, Normocephalic Oral: Moist Mucosa Neck: Supple, No JVD, Negative Carotid Bruits Lungs: - - has mildly reduced breath sounds bibasally, no wheezes or crackles. Cardiovascular: Regular rate, Regular Rhythm, Normal S1, Normal S2, No murmurs Abdomen: Bowel Sounds Present, Soft, Non Tender, Non-Distended, No Hepato- splenomegaly Extremities: No clubbing, No cyanosis, No edema, Capillary Refill Less than 3 Seconds Skin: No rashes, No breakdown Musculoskeletal: No Tenderness to Palpation of Joints or Extremities Lymphatic: No Cervical, Supraclavicular, or Inguinal Adenopathy Neurological: Neuro grossly intact, - - intubated,sedated, RASS score is 0 Psych/Mental Status: Normal Affect Microbiology Past 72 Hours 12/16/17 12:35 Sputum, Induced/Lukens Gram Stain - Final 12/16/17 12:35 Sputum, Induced/Lukens Respiratory Culture - Final Klebsiella oxytoca 12/12/17 08:20 Blood Culture (Wb) - Anticubital Right Blood Culture - Final No growth in 5 days. 12/12/17 07:30 Blood Culture (Wb) - Anticubital Left Blood Culture - Final No growth in 5 days. 12/13/17 06:50 Sputum, Induced/Lukens Gram Stain - Final 12/13/17 06:50 Sputum, Induced/Lukens Respiratory Culture - Final Streptococcus pneumoniae 12/12/17 07:45 Sputum, Tracheal Aspirate Gram Stain - Final 12/12/17 07:45 Sputum, Tracheal Aspirate Respiratory Culture - Final Yeast Laboratory Results 12/17/17 11:22: POC Glucose 215 H 12/17/17 16:33: POC Glucose 213 H 12/18/17 00:13: POC Glucose 225 H 12/18/17 06:12: POC Glucose 238 H 12/18/17 08:25: Sodium 143, Potassium 3.6, Chloride 99, Carbon Dioxide 40.0 H, Anion Gap 4 L, BUN 41 H, Creatinine 0.98, Estim Creat Clear Calc 78.52, Est GFR (MDRD) Af Amer 100, Est GFR (MDRD) Non-Af 83, BUN/Creatinine Ratio 41.8 H, Glucose 203 H, Calcium 8.7 Current Medications Acetaminophen (Tylenol Liquid) 650 mg GT Q6H PRN PRN PRN Reason: FEVER Acetazolamide (Diamox) 125 mg GT BID [facility] Last Admin: 12/18/17 08:38 Dose: 125 mg Albuterol Sulfate (Ventolin Aerosols) 2.5 mg INHALATION Q6HWA.RT [facility] Last Admin: 12/18/17 06:38 Dose: 2.5 mg Aspirin (Aspirin, Baby) 81 mg GT DAILY [facility] Last Admin: 12/18/17 08:37 Dose: 81 mg Atorvastatin Calcium (Lipitor) 40 mg GT QHS [facility] Last Admin: 12/17/17 21:08 Dose: 40 mg Chlorhexidine Gluconate () 15 ml PO BID [facility] Last Admin: 12/18/17 08:39 Dose: 15 ml Chlorhexidine Gluconate () 1 each TOPICAL DAILY [facility] Last Admin: 12/18/17 06:01 Dose: 1 each Clopidogrel Bisulfate (Plavix) 75 mg GT DAILY [facility] Last Admin: 12/18/17 08:37 Dose: 75 mg Dextrose (D50w Syringe) 0 gm IV X1 PRN; Protocol PRN Reason: Hypoglycemia Famotidine (Pepcid) 20 mg GT BID [facility] Last Admin: 12/18/17 08:37 Dose: 20 mg Glucagon () 1 mg IM .X1 PRN PRN Reason: Hypoglycemia Heparin Sodium (Porcine) (Heparin Na) 5,000 unit SC Q8 [facility] Last Admin: 12/18/17 06:01 Dose: 5,000 unit Sodium Chloride () 250 mls @ 15 mls/hr IV .[id number] PRN PRN Reason: SALINE FLUSH Sodium Chloride () 250 mls @ 15 mls/hr IV .[id number] PRN PRN Reason: SALINE FLUSH Last Admin: 12/16/17 21:29 Dose: 15 mls/hr Fentanyl () 100 mls @ 5 mls/hr IV .Q20H [facility] Last Admin: 12/18/17 01:59 Dose: 5 mls/hr Propofol (Diprivan) 1,000 mg in 100 mls @ 9.852 mls/hr CONT INF .[id number] [facility] Last Admin: 12/18/17 02:54 Dose: 9.852 mls/hr Enteral Nutritional Formula (Glucerna 1.5) 1,000 mls @ 15 mls/hr GT .Q48H [facility] Last Admin: 12/17/17 16:41 Dose: 15 mls/hr Furosemide 500 mg/ N/A 50 mls @ 2 mls/hr CONT INF .Q25H [facility] Last Admin: 12/18/17 03:34 Dose: 2 mls/hr Piperacillin Sod/Tazobactam Sod (Zosyn) 3.375 gm in 50 mls @ 12.5 mls/hr IV Q8 [facility] Stop: 12/23/17 09:59 Last Admin: 12/18/17 06:01 Dose: 12.5 mls/hr Insulin Human Lispro (Humalog Kwikpen (Bkc)) 0 unit SQ Q6 [facility]; Protocol Last Admin: 12/18/17 06:13 Dose: 3 units Magnesium Hydroxide (Milk Of Magnesia) 30 ml PO DAILY PRN PRN PRN Reason: Constipation Methylprednisolone (Solu-Medrol) 40 mg IV Q6 [facility] Last Admin: 12/18/17 06:02 Dose: 40 mg Polyethylene Glycol (Miralax) 17 gm GT BID [facility] Last Admin: 12/18/17 08:38 Dose: 17 gm Potassium Bicarb/Potassium Chloride (Potassium Chl 25 Meq Eff (For Liquid)) 25 meq GT BID [facility] Last Admin: 12/18/17 08:37 Dose: 25 meq Senna/Docusate Sodium (Senokot-S, Anne-Marie-Colace) 2 tablet GT BID [facility] Last Admin: 12/18/17 08:39 Dose: Not Given Sodium Chloride () 5 - 30 ml IV UD PRN PRN Reason: SALINE FLUSH Last Admin: 12/17/17 06:01 Dose: 10 ml Medical Necessity - Tobacco Use Smoking Status: Current every day smoker Assessment/Plan All Active Problems (Last Updated 11/10/17 @ 12:14 by Brennon Maloney, RAGMAN-C) Acute respiratory failure with hypoxia and hypercapnia (Acute) Pneumococcal pneumonia (Acute) Metabolic encephalopathy (Acute) Heart failure with reduced ejection fraction (Acute) Chest pain (Resolved) Respiratory failure, acute (Resolved) 1. Acute hypoxic and hyeprcarbic respiratory failure due to CHF exacerbation * still intubated and sedated. oxygen requirements at FiO2 of 55%. Unable to tolerate lower FiO2 levels; PEEP is at 15 * in negative balance by 9L since admission, passed 4L of urine over last 24 hours; in negative balance by 1.9L * on lasix drip and metolazone. * Breathing treatments and IV steroids. * RASS score is 0 * 2. ACute diastolic CHF exacerbation * has history of ischemic cardiomyopathy * still on lasix drip and metolazone * echo: showed normal LV function, unable to quantify RVSP. EF was 60% * * 3. Ventilator associated pneumonia * sputum cultured Klebsiella and pneumonia. Still having low dose fever * continue IV zosyn * * 4. Metabolic alkalosis; likely due to contraction alkalosis * Bicarb is 40 today * on acetazolamide * 5. Hypotension: * Likely due to diuresis and also sedatives. * BP meds remain on hold. WIll monitor. * 6. Hypokalemia: Resolved. Potassium is 3.6 today. 7. CAD: on aspirin and plavix as well as statin 8. Diabetes mellitus: on ISS. accuchecks q6 9. EMILIA: currently on ventilator due to respiratory failure 10. Hypertension: losartan and carvedilol on hold o/a of hypotension. 11;. MOrbid obesity: BMI >50. Complicates care DVT prophylaxis: heparin GI prophylaxis: famotidine COde status: full code. IRWIN is his healthcare box machine operator. Code Visit Inpatient E&M: 24443 Subs Hosp L3
[2017-12-18] MEDS: Acetaminophen 650 MG/20 ML UDC GT (09:54)
--- NOTE | 2017-12-18 09:59 | PN.CARD_ITS ---
Subjectve: Patient intubated, awake, PEEP of 15, FiO2 of 45%, unable to wean off ventilator this morning. Lower extremity edema improving. Net negative fluid balance overnight again. Objective: Vital Signs Temp Pulse Resp BP Pulse Ox 99.7 F H 66 14 112/69 95 12/18/17 08:00 12/18/17 08:00 12/18/17 08:00 12/18/17 08:00 12/18/17 08:00 Oxygen Flow Rate (L/min) 70 Oxygen Delivery Method Mechanical Ventilator Weight: 332 lb 0.258 oz Body Mass Index (BMI) 55.5 Finger Stick Blood Glucose 135 Intake and Output for Last 24 Hours 12/16/17 12/17/17 12/18/17 23:59 23:59 23:59 Intake Total 2692.5 / 2692.5 2110.1 / 2110.1 1373 / 1373 Output Total 5700 / 5700 4050 / 4050 1800 / 1800 Balance -3007.5 / -3007.5 -1939.9 / -1939.9 -427 / -427 General: Awake, Alert, Oriented x 3 HEENT: PERRL, EOMI, Sclera Non Icteric Neck: Supple, Good ROM, No Lymph Node Enlargement Lungs: Clear to auscultation Cardiovascular: Regular Rhythm, Normal S1, Normal S2, No Murmurs, No Rubs, No Gallops Vascular: No Carotid Bruits, Normal Femoral Pulses, Normal Radial Pulses, Normal Dorsalis Pedal Pulse, Normal Posterior Tibial Pulses Abdomen: Bowel Sounds Present, Soft, Non Tender, No HSM, No Organomegaly Extremities: No Cyanosis, No Clubbing, Bilateral Edema +1 Neurological: No Focal Motor or Sensory Deficit 12/18/17 08:25: Sodium 143, Potassium 3.6, Chloride 99, Carbon Dioxide 40.0 H, Anion Gap 4 L, BUN 41 H, Creatinine 0.98, Est GFR (MDRD) Af Amer 100, Est GFR (MDRD) Non-Af 83, BUN/Creatinine Ratio 41.8 H, Glucose 203 H, Calcium 8.7 Rhythm: EKG: ECHO: Stress Test: Cardiac Cath: PCI: CT Surgery: Holter monitor: EPS: PPM: CXR: Chest CT Scan: Medical Necessity - Tobacco Use Smoking Status: Current every day smoker Assessment/Plan 1. Coronary artery disease: Patient has no significant troponin release despite having known coronary artery disease. He has a known occluded right coronary artery, with collateral from left to right, and is status post angioplasty and stenting to his LAD in 2012 and left circumflex in June 2017. Patient has had no malignant arrhythmias, and apparently presented with respiratory distress possibly due to pulmonary source of infection. He is being treated with broad- spectrum antibiotics and is on no pressor support at this time. Patient does have evidence of right-sided heart failure and unknown pulmonary pr essures by echocardiogram on day of admission. His EF was estimated to be 60% although his imaging was technically difficult. He is currently undergoing diuresis with a Lasix drip to assist with decompressing his right side, as well as to facilitate extubation. Patient had a failed weaning trial on Tuesday with subsequent trache balloon rupture requiring emergent reintubation. Would recommend continuing IV diuresis with IV Lasix until the patient has reached his dry weight, and his lower extremity edema has resolved. Would recommend a net negative at 2.0 L daily if his blood pressure and bicarbonate tolerated.. Patient's bicarbonate is normalizing with Diamox therapy. Recommend continuing Diamox therapy. Chest x-ray shows improved pulmonary edema, and his oxygen saturations are satisfactory. At this point with the patient's challenges with weaning off the ventilator, he may have transient cardiac ischemia while he is weaning. For this reason I would recommend obtaining permission from his power of business sales consultant to proceed with a right and left heart catheterization if we are not able to get him off the ventilator by Tuesday. His [place] catheter may be left in to facilitate tailoring his IV diuretic therapy to facilitate weaning from his ventilator. If his catheterization shows no correctable coronary disease, and if we are unable to get more the ventilator, he may require tracheostomy for additional weaning. Would recommend he continue his baby aspirin, Plavix, and hold his antihypertensives given his infection and hypotension. He has not required pressor agents at this time. In the meantime, we will attempt augmented diuresis with metolazone 5 mg x1 p.o. now. Patient appears to be holding his blood pressure and his bicarbonate has been stabilized around 40. Hopefully this will assist with decompressing his lungs to assist with extubation however his pulmonary hypertension may be irreversible. If the patient drops his blood pressure and maintains his high PEEP requirements, the patient may have irreversible pulmonary hypertension which would mandate a decision for either terminal extubation or tracheostomy/PEG tube placement. 2. Obstructive sleep apnea: The patient is evidence of pulmonary hypertension and right-sided heart failure most likely result of obstructive sleep apnea. He is on chronic O2 therapy at home as well. Patient may be preload dependent so if his blood pressure deteriorates with IV diuresis, he may require discontinuation of IV diuretic therapy. 3. Hyperlipidemia: Continue statin based medications. 4. Thank you very much for the opportunity to participate in the cardiac care of your patient. Please let Dr. Li know once his POA arrives. Code Visit Inpatient E&M: [id number] Subs Hosp L2
[2017-12-18] MEDS: metOLazone 5 MG Tablet PO (10:12)
--- NOTE | 2017-12-18 11:20 | NURSING ---
POLefty here did talk to dr ross per phone who explained cardiac cath procedure, IRWIN Anthony does understand procedure and did sign consent for Danie Mcgarry to have procedure in am 12/19/17
[2017-12-18 11:36] LABS: Bedside Glucose 216 mg/dL (70-110)
[2017-12-18 17:16] LABS: Bedside Glucose 220 mg/dL (70-110)
[2017-12-18] MEDS: Senna/Docusate Sodium 1 Tablet 2 TABLET GT (21:21)
[2017-12-18] MEDS: Atorvastatin Calcium 40 MG Tablet GT (21:24)
[2017-12-19] VITALS (38 sets, daily range): BP systolic 93–123; BP diastolic 62–85; PULSE 75–95; RESP 14–19; TEMP 38–38.7; O2SAT 82–97
[2017-12-19] MEDS: Insulin Lispro 100 UNIT/ML INSULN.PEN SQ ×5 (00:10→23:50)
[2017-12-19 00:25] LABS: Bedside Glucose 255 mg/dL (70-110)
[2017-12-19] MEDS: fentaNYL drip 100 ML 5 MCG IV ×3 (00:43→21:40)
[2017-12-19] MEDS: CHLORHEXIDINE GLUC 2% CLOTH 1 EACH TOWELETTE TOPICAL ×3 (00:43→21:22)
[2017-12-19 01:41] LABS: Absolute Lymphocyte Count 1.07 X10^3/ul (0.83-4.51); Absolute Neutrophil Count 5.5 X10^3/uL (2.0-7.7); Basophil# 0.01 X10^3/uL; Basophil% 0.1 % (0-1); Hematocrit 42.1 % (40-54); Hemoglobin 12.7 g/dl (13.0-16.5); Lymphocyte # 1.07 X10^3/ul (4.0); Lymphocyte % 14.4 % (19-41); Mean Corp Hgb Conc 30.2 g/gl (32-36); Mean Corpuscular Volume 92.7 fL (80-94); Mean Platelet Vol. 10.2 fl (6.2-12.0); Monocyte# 0.82 X10^3/uL; Neutrophil # 5.52 X10^3/uL (2.7-7.7); Neutrophil % 74.1 % (47-70); POSITIVE COUNT NO; POSITIVE DIFFERENTIAL NO; POSITIVE MORPHOLOGY NO; Platelet Count 293 K/mm3 (150-450); RBC Distribution Width CV 14.7 % (11.6-14.6); RBC Distribution Width SD 47.8 fl (35.1-43.9); Red Blood Count 4.54 M/mm3 (4.6-6.2); White Blood Count 7.5 K/mm3 (4.4-11.0)
[2017-12-19] MEDS: Albuterol 2.5 MG/3 ML VIAL.NEB. INHALATION ×4 (01:45→18:30)
[2017-12-19 01:49] LABS: Anion Gap 9 (5-15); BUN 56 mg/dL (7-18); BUN/Creat Ratio 45.2 RATIO (10-20); Calcium,Total 9.6 mg/dL (8.5-10.1); Chloride 89 mmol/L (98-107); Creatinine, Serum 1.24 mg/dL (0.70-1.30); EST Glomerular Filtration Rate 63 mL/min (>60); Est Glom Filt Rate - Afr Amer 77 mL/min (>60); Estimated Creatinine Clearance 62.06 ml/min; Glucose 230 mg/dL (74-106); Potassium 3.3 mmol/L (3.5-5.1); Sodium Level 141 mmol/L (136-145)
[2017-12-19 02:00] LABS: Prothrombin Time (Protime)PT. 13.4 SECONDS (11.7-14.9)
[2017-12-19] MEDS: Furosemide 500 MG in Empty Viaflex 50 mL 1 EACH CONT INF (03:40)
[2017-12-19] MEDS: 0.9% NaCl Peripheral Flush Adult/Peds IV ×2 (03:41→06:31)
[2017-12-19] MEDS: Propofol 10MG/Ml 1,000 MG/100 ML Bottle 9.852 MG CONT INF ×4 (03:41→21:21)
[2017-12-19] MEDS: Acetaminophen 650 MG/20 ML UDC GT ×3 (03:44→17:48)
[2017-12-19 04:18] LABS: Bacteria 0 SEEN /hpf (None Seen); Mucous, Urine 0 SEEN /hpf (<or=2+); Red Blood Cells-Urine 0 SEEN /hpf (0-5); Squamous Epithelial Cells - UA 0 SEEN /hpf (0-5); White Blood Cells 0 SEEN /hpf (0-5)
[2017-12-19 04:20] LABS: Color, Urine Yellow (Yellow); Glucose, Dipstick Normal (Normal); Ketone-Dipstick Negative (Negative); Leukocyte Esterase-Dipstick 25 /ul (Negative); Nitrite-Dipstick Negative (Negative); Occult Blood-Urine Negative /ul (Negative); Protein-Dipstick Negative (Negative); Urine Bilirubin Dipstick Negative (Negative); Urine Clarity Clear (Clear); Urine Urobilinogen Normal (Normal); Urine pH 6.5 (5.0 - 8.0)
--- NOTE | 2017-12-19 05:00 | EKG12_ITS ---
Test Reason : AM Blood Pressure : / mmHG Vent. Rate : 077 BPM Atrial Rate : 077 BPM P-R Int : 150 ms QRS Dur : 086 ms QT Int : 380 ms P-R-T Axes : 027 083 -10 degrees QTc Int : 430 ms Normal sinus rhythm Septal infarct (cited on or before 30-JUN-2017) Abnormal ECG When compared with ECG of 12-DEC-2017 08:17, No significant change was found Confirmed by MATILDA CABA, ELMER ([id number]), supervising film or videotape editor SELINA TSANG ([id number]) on 12/21/2017 11:38:13 AM Referred By: STEFFANY Confirmed By:ELMER GREY MD
[2017-12-19] MEDS: Clopidogrel Bisulfate 75 MG Tablet GT (06:28)
[2017-12-19] MEDS: Aspirin 81 MG TAB.CHEW GT (06:28)
--- NOTE | 2017-12-19 06:37 | PCM.PN.INT ---
Subjective: Patient did okay overnight. Patient remains on Lasix drip and high oxygen requirements. Patient currently on 15 of PEEP and 90% FiO2. Patient has had a fever overnight and nursing is reporting moderate secretions. Patient remains sedated and is unable to provide any further information. Objective: Patient did have to be reintubated on Tuesday. Aspiration event was noted at that time. General: - - RASS -2. Good ventilator synchrony noted. HEENT: Atraumatic, PERRLA, EOMI, Normocephalic, - - No scleral icterus or injection noted. Oral: Moist Mucosa, No Gingival or Mucosal Lesions/ Ulcerations, - - Poor dentition Neck: Supple, No JVD, No Nodes, Trachea Midline Lungs: No rhonchi, No wheeze, Diminished, Rales, - - Symmetric expansion. No dullness to percussion. Cardiovascular: Regular rate, Regular Rhythm, Normal S1, Normal S2, No murmurs, No rub noted, No Gallop Abdomen: Bowel Sounds Present, Soft, Non Tender, Non-Distended, Obese Extremities: No cyanosis, Clubbing, Edema, - - Venous stasis changes noted. Skin: - - Slight erythema noted on the anterior of the right glez Musculoskeletal: No Tenderness to Palpation of Joints or Extremities Lymphatic: No Cervical, Supraclavicular, or Inguinal Adenopathy Neurological: Cranial nerves II-XII grossly intact, Neuro grossly intact Psych/Mental Status: Flat Affect Vital Signs Temp Pulse Resp BP Pulse Ox 38.4 C H 77 14 105/71 92 12/19/17 06:00 12/19/17 06:00 12/19/17 06:00 12/19/17 06:00 12/19/17 06:00 Oxygen Flow Rate (L/min) 70 Oxygen Delivery Method Mechanical Ventilator Weight: 143.9 kg Body Mass Index (BMI) 55.5 Finger Stick Blood Glucose 135 Intake and Output for Last 24 Hours 12/17/17 12/18/17 12/19/17 23:59 23:59 23:59 Intake Total 2110.1 / 2110.1 3579 / 3579 929 / 929 Output Total 4050 / 4050 7950 / 7950 1625 / 1625 Balance -1939.9 / -1939.9 -4371 / -4371 -696 / -696 Labs (Last 48 Hours) 12/17/17 12/17/17 12/18/17 11:22 16:33 00:13 WBC RBC Hgb Hct MCV MCH MCHC RDW RDW Differential Plt Count MPV Immature Gran % (Auto) Neut % (Auto) Lymph % (Auto) Camp % (Auto) Eos % (Auto) Baso % (Auto) Absolute Neuts (auto) Absolute Lymphs (auto) Total Counted PT INR APTT Sodium Potassium Chloride Carbon Dioxide Anion Gap BUN Creatinine Estim Creat Clear Calc Est GFR (MDRD) Af Amer Est GFR (MDRD) Non-Af BUN/Creatinine Ratio Glucose Calcium Urine Color Urine Clarity Urine pH Ur Specific [place] Urine Protein Urine Glucose (UA) Urine Ketones Urine Occult Blood Urine Nitrite Urine Bilirubin Urine Urobilinogen Ur Leukocyte Esterase Urine RBC Urine WBC Ur Squamous Epith Cells Urine Bacteria Urine Mucus POC Glucose 215 H 213 H 225 H 12/18/17 12/18/17 12/18/17 06:12 08:25 11:31 WBC RBC Hgb Hct MCV MCH MCHC RDW RDW Differential Plt Count MPV Immature Gran % (Auto) Neut % (Auto) Lymph % (Auto) Camp % (Auto) Eos % (Auto) Baso % (Auto) Absolute Neuts (auto) Absolute Lymphs (auto) Total Counted PT INR APTT Sodium 143 Potassium 3.6 Chloride 99 Carbon Dioxide 40.0 H Anion Gap 4 L BUN 41 H Creatinine 0.98 Estim Creat Clear Calc 78.52 Est GFR (MDRD) Af Amer 100 Est GFR (MDRD) Non-Af 83 BUN/Creatinine Ratio 41.8 H Glucose 203 H Calcium 8.7 Urine Color Urine Clarity Urine pH Ur Specific [place] Urine Protein Urine Glucose (UA) Urine Ketones Urine Occult Blood Urine Nitrite Urine Bilirubin Urine Urobilinogen Ur Leukocyte Esterase Urine RBC Urine WBC Ur Squamous Epith Cells Urine Bacteria Urine Mucus POC Glucose 238 H 216 H 12/18/17 12/19/17 12/19/17 17:12 00:03 01:15 WBC RBC Hgb Hct MCV MCH MCHC RDW RDW Differential Plt Count MPV Immature Gran % (Auto) Neut % (Auto) Lymph % (Auto) Camp % (Auto) Eos % (Auto) Baso % (Auto) Absolute Neuts (auto) Absolute Lymphs (auto) Total Counted PT INR APTT Sodium 141 Potassium 3.3 L Chloride 89 L Carbon Dioxide 43.0 H Anion Gap 9 BUN 56 H Creatinine 1.24 Estim Creat Clear Calc 62.06 Est GFR (MDRD) Af Amer 77 Est GFR (MDRD) Non-Af 63 BUN/Creatinine Ratio 45.2 H Glucose 230 H Calcium 9.6 Urine Color Urine Clarity Urine pH Ur Specific [place] Urine Protein Urine Glucose (UA) Urine Ketones Urine Occult Blood Urine Nitrite Urine Bilirubin Urine Urobilinogen Ur Leukocyte Esterase Urine RBC Urine WBC Ur Squamous Epith Cells Urine Bacteria Urine Mucus POC Glucose 220 H 255 H 12/19/17 12/19/17 12/19/17 01:15 01:15 04:10 WBC 7.5 RBC 4.54 L Hgb 12.7 L Hct 42.1 MCV 92.7 MCH 28.0 MCHC 30.2 L RDW 14.7 H RDW Differential 47.8 H Plt Count 293 MPV 10.2 Immature Gran % (Auto) 0.400 Neut % (Auto) 74.1 H Lymph % (Auto) 14.4 L [place] % (Auto) 11.0 H Eos % (Auto) 0.0 Baso % (Auto) 0.1 Absolute Neuts (auto) 5.5 Absolute Lymphs (auto) 1.07 Total Counted Not Reportable PT 13.4 INR 1.0 APTT 25.0 Sodium Potassium Chloride Carbon Dioxide Anion Gap BUN Creatinine Estim Creat Clear Calc Est GFR (MDRD) Af Amer Est GFR (MDRD) Non-Af BUN/Creatinine Ratio Glucose Calcium Urine Color Yellow Urine Clarity Clear Urine pH 6.5 Ur Specific [place] 1.010 Urine Protein Negative Urine Glucose (UA) Normal Urine Ketones Negative Urine Occult Blood Negative Urine Nitrite Negative Urine Bilirubin Negative Urine Urobilinogen Normal Ur Leukocyte Esterase 25 H Urine RBC 0 SEEN Urine WBC 0 SEEN Ur Squamous Epith Cells 0 SEEN Urine Bacteria 0 SEEN Urine Mucus 0 SEEN POC Glucose Microbiology 12/16/17 12:35 Sputum, Induced/Lukens Gram Stain - Final 12/16/17 12:35 Sputum, Induced/Lukens Respiratory Culture - Final Klebsiella oxytoca 12/12/17 08:20 Blood Culture (Wb) - Anticubital Right Blood Culture - Final No growth in 5 days. 12/12/17 07:30 Blood Culture (Wb) - Anticubital Left Blood Culture - Final No growth in 5 days. 12/13/17 06:50 Sputum, Induced/Lukens Gram Stain - Final 12/13/17 06:50 Sputum, Induced/[place] Respiratory Culture - Final Streptococcus pneumoniae Medical Necessity - Tobacco Use Smoking Status: Current every day smoker Assessment/Plan All Active Problems (Last Updated 11/10/17 @ 12:14 by Brennon Maloney, COMPLIANCE ENGINEER-C) Acute respiratory failure with hypoxia and hypercapnia (Acute) Pneumococcal pneumonia (Acute) Metabolic encephalopathy (Acute) Heart failure with reduced ejection fraction (Acute) Chest pain (Resolved) Respiratory failure, acute (Resolved) RECOMMENDATIONS: 1. Continue continuous Lasix infusion today. Continue Diamox as ordered. 2. Continue IV Solu-Medrol 40 mg every 6 hours and bronchodilators. 3. Wean FiO2 and PEEP as tolerated. 4. Possibly transition to Levaquin therapy 5. Continue tube feeds. 6. Aggressive potassium repletion 7. Continue current sedation regimen with a goal to maintain a RASS of -1 to 1. 8. Continue appropriate ICU prophylaxis with subcutaneous heparin and Protonix. IMPRESSIONS: 1. Acute on chronic combined respiratory failure Patient still requiring significant FiO2 and PEEP to maintain saturations at this time. Patient remains on diuretic drip and has had good diuresis overnight. We will give additional potassium repletion. Anticipate patient will need multiple liters were removed for improvement. Patient still with shunt physiology. Continue to work with mobilization as tolerated. May need to decrease Lasix drip, but goal is to be -2-3 L. Continue with Solu-Medrol for now. Patient did have an aspiration event on Tuesday, which is likely leading the patient's current fever. Patient is growing Klebsiella and pneumococcus from sputum cultures. 2. Metabolic encephalopathy Improved. Likely secondary to acute on chronic CO2 retention. Anticipate improvement with correction of the patient's underlying metabolic derangements. Minimize sedation as tolerated. 3. Decompensated heart failure/history of ischemic cardiomyopathy The patient's weight is significantly elevated when compared to that documented from November. Diuretics will be continued accordingly. Restart the patient's beta-lori once he has been volume optimized. Initiate 1.5 L fluid restriction daily. Patient supposed to have a heart catheterization today, but unclear if patient would be able to tolerate movement 4. Diabetes mellitus Continue Accu-Cheks and sliding scale insulin coverage. The patient has been tolerant of tube feeds to date. 5. Obstructive sleep apnea The patient has a history of outpatient noncompliance with the use of nocturnal Pap therapy. He only utilizes supplemental oxygen on a nightly basis. 6. Ongoing tobacco dependence/super morbid obesity/history of medical noncompliance/hypertension Complicates care, management, recovery and prognosis. Nicotine replacement therapy can be utilized while admitted to the hospital. Addendum 8:30 AM: Earlier this morning, approximately 7:30 AM, patient had his ventilator change. Patient with significant desaturation into the high 70s. Chest x-ray was unremarkable except for a high riding endotracheal tube. Patient had to be transiently increased to 20 of PEEP, but has since improved. Patient is currently on 100% FiO2 and 15 of PEEP saturating in the upper 90s. No hemodynamic instability was noted during desaturation patient tolerated this relatively well. Clinical suspicion for PE recruitment leading to desaturation. TIME: 60 minutes of critical care time, independent of procedures, was spent addressing the patient's acute on chronic combined respiratory failure, metabolic encephalopathy, decompensated heart failure, obstructive sleep apnea, review of all data and collaboration with the care team. (5:50 AM to 6:50 AM, 7:30 AM to 8 AM) Code Visit 9xxxx: [id number] Critical care first hour
[2017-12-19 06:55] LABS: Bedside Glucose 249 mg/dL (70-110)
--- NOTE | 2017-12-19 07:17 | RAD_ITS ---
STUDY: X-RAY CHEST REASON FOR EXAM: Male, 57 years old. Shortness of breath/dyspnea. TECHNIQUE: Single AP portable view of the chest. COMPARISON: Comparison is made with prior study dated December 16, 2017. FINDINGS: An endotracheal tube is in situ. The tip is at 5.8 cm proximal to the byron. An enteric gastric tube is seen with the tip in the body of the stomach. EKG electrodes are seen. There is evidence of increased markings at the left lung base suggestive of atelectasis and/or infiltrate. The previously seen CHF as clear. There is no demonstrated pleural abnormality. There is mild cardiac enlargement. Normal mediastinum and marta. Normal visualized pulmonary arteries. Normal visualized aortic arch and descending thoracic aorta. Normal visualized thoracic spine. Normal visualized ribs, clavicles, and shoulders. There is no demonstrated abnormality of the visualized soft tissue structures of the upper abdomen. RAD/Chest 1 View IMPRESSION: Residual increased markings at the left lung base suggestive of atelectasis and/or infiltrate. The remainder of the examination is unremarkable. Electronically Signed: Akhil Izquierdo MD at 8:45 EST Tel [phone], Service support ,
[2017-12-19] MEDS: Potassium Chloride IVPB 10 MEQ 100 MEQ IV BOLUS ×4 (07:46→11:00)
[2017-12-19] MEDS: Chlorhexidine 15 ML PO ×2 (07:49→21:22)
[2017-12-19] MEDS: Polyethylene Glycol 3350 17 GM PACKET GT (08:54)
[2017-12-19] MEDS: AcetaZOLAMIDE 250 MG Tablet 125 MG GT ×2 (08:54→21:24)
[2017-12-19] MEDS: Famotidine 20 MG Tablet GT ×2 (08:55→21:26)
--- NOTE | 2017-12-19 08:56 | PCM.PN.HOSP ---
Subjective: Patient seen and examined. She remains intubated and sedated. He had increased oxygen requirements overnight and is up to 100% FiO2. He also required increased PEEP and was up to 20 of PEEP; he is now down to 15 of PEEP. he has remained febrile. He is alert and RASS score is 0. He denies any chest pain, abdominal pain, diarrhea or vomiting. Discussed with hospice chaplain, patient likely aspirated when a rapid response was called a few days ago on account of his endotracheal tube coming loose. He had to be reintubated then. Labs and vitals reviewed. Vitals/I&O's: Vital Signs Temp Pulse Resp BP Pulse Ox 101 F H 76 14 111/74 97 12/19/17 08:00 12/19/17 08:00 12/19/17 08:00 12/19/17 08:00 12/19/17 08:00 Oxygen Flow Rate (L/min) 70 Oxygen Delivery Method Mechanical Ventilator Weight: 317 lb 3.923 oz Body Mass Index (BMI) 55.5 Finger Stick Blood Glucose 135 Intake and Output for Last 24 Hours 12/17/17 12/18/17 12/19/17 23:59 23:59 23:59 Intake Total 2110.1 / 2110.1 3579 / 3579 1029 / 1029 Output Total 4050 / 4050 7950 / 7950 1900 / 1900 Balance -1939.9 / -1939.9 -4371 / -4371 -871 / -871 General: Alert, Cooperative, No apparent distress HEENT: Atraumatic, PERRLA, EOMI, Normocephalic Oral: Moist Mucosa Neck: Supple, No JVD, Negative Carotid Bruits Lungs: - - still has decreased breath sounds bibasally; no wheezes or crackles. Cardiovascular: Regular rate, Regular Rhythm, Normal S1, Normal S2, No murmurs Abdomen: Bowel Sounds Present, Soft, Non Tender, Non-Distended, No Hepato-splenomegaly Extremities: No clubbing, No cyanosis, Capillary Refill Less than 3 Seconds, - - now has 1+ edema bilaterally; edema has improved significantly Skin: No rashes, No breakdown Musculoskeletal: No Tenderness to Palpation of Joints or Extremities Lymphatic: No Cervical, Supraclavicular, or Inguinal Adenopathy Neurological: Cranial nerves II-XII grossly intact, - - intubated, sedated, RASS score is 0 Psych/Mental Status: - - RASS score is 0; sedated, intubated Microbiology Past 72 Hours 12/16/17 12:35 Sputum, Induced/Lukens Gram Stain - Final 12/16/17 12:35 Sputum, Induced/Lukens Respiratory Culture - Final Klebsiella oxytoca 12/12/17 08:20 Blood Culture (Wb) - Anticubital Right Blood Culture - Final No growth in 5 days. 12/12/17 07:30 Blood Culture (Wb) - Anticubital Left Blood Culture - Final No growth in 5 days. 12/13/17 06:50 Sputum, Induced/Lukens Gram Stain - Final 12/13/17 06:50 Sputum, Induced/Lukens Respiratory Culture - Final Streptococcus pneumoniae Laboratory Results 12/18/17 11:31: POC Glucose 216 H 12/18/17 17:12: POC Glucose 220 H 12/19/17 00:03: POC Glucose 255 H 12/19/17 01:15: Sodium 141, Potassium 3.3 L, Chloride 89 L, Carbon Dioxide 43.0 H, Anion Gap 9, BUN 56 H, Creatinine 1.24, Estim Creat Clear Calc 62.06, Est GFR (MDRD) Af Amer 77, Est GFR (MDRD) Non-Af 63, BUN/Creatinine Ratio 45.2 H, Glucose 230 H, Calcium 9.6 12/19/17 01:15: WBC 7.5, RBC 4.54 L, Hgb 12.7 L, Hct 42.1, MCV 92.7, MCH 28.0, MCHC 30.2 L, RDW 14.7 H, RDW Differential 47.8 H, Plt Count 293, MPV 10.2, Immature Gran % (Auto) 0.400, Neut % (Auto) 74.1 H, Lymph % (Auto) 14.4 L, [place] % (Auto) 11.0 H, Eos % (Auto) 0.0, Baso % (Auto) 0.1, Absolute Neuts (auto) 5.5, Absolute Lymphs (auto) 1.07, Total Counted Not Reportable 12/19/17 01:15: PT 13.4, INR 1.0, APTT 25.0 12/19/17 04:10: Urine Color Yellow, Urine Clarity Clear, Urine pH 6.5, Ur Specific [place] 1.010, Urine Protein Negative, Urine Glucose (UA) Normal, Urine Ketones Negative, Urine Occult Blood Negative, Urine Nitrite Negative, Urine Bilirubin Negative, Urine Urobilinogen Normal, Ur Leukocyte Esterase 25 H, Urine RBC 0 SEEN, Urine WBC 0 SEEN, Ur Squamous Epith Cells 0 SEEN, Urine Bacteria 0 SEEN, Urine Mucus 0 SEEN 12/19/17 06:46: POC Glucose 249 H Current Medications Acetaminophen (Tylenol Liquid) 650 mg GT Q6H PRN PRN PRN Reason: FEVER Last Admin: 12/19/17 03:44 Dose: 650 mg Acetazolamide (Diamox) 125 mg GT BID [facility] Last Admin: 12/18/17 21:22 Dose: 125 mg Albuterol Sulfate (Ventolin Aerosols) 2.5 mg INHALATION Q6HWA.RT [facility] Last Admin: 12/19/17 06:29 Dose: 2.5 mg Aspirin (Aspirin, Baby) 81 mg GT DAILY [facility] Last Admin: 12/19/17 06:28 Dose: 81 mg Atorvastatin Calcium (Lipitor) 40 mg GT QHS [facility] Last Admin: 12/18/17 21:24 Dose: 40 mg Chlorhexidine Gluconate () 15 ml PO BID [facility] Last Admin: 12/19/17 07:49 Dose: 15 ml Clopidogrel Bisulfate (Plavix) 75 mg GT DAILY [facility] Last Admin: 12/19/17 06:28 Dose: 75 mg Dextrose (D50w Syringe) 0 gm IV X1 PRN; Protocol PRN Reason: Hypoglycemia Famotidine (Pepcid) 20 mg GT BID [facility] Last Admin: 12/18/17 21:21 Dose: 20 mg Glucagon () 1 mg IM .X1 PRN PRN Reason: Hypoglycemia Heparin Sodium (Porcine) (Heparin Na) 5,000 unit SC Q8 [facility] Last Admin: 12/19/17 01:57 Dose: Not Given Sodium Chloride () 250 mls @ 15 mls/hr IV .[id number] PRN PRN Reason: SALINE FLUSH Sodium Chloride () 250 mls @ 15 mls/hr IV .[id number] PRN PRN Reason: SALINE FLUSH Last Admin: 12/16/17 21:29 Dose: 15 mls/hr Fentanyl () 100 mls @ 5 mls/hr IV .Q20H [facility] Last Admin: 12/19/17 00:43 Dose: 5 mls/hr Propofol (Diprivan) 1,000 mg in 100 mls @ 9.852 mls/hr CONT INF .[id number] [facility] Last Admin: 12/19/17 03:41 Dose: 9.852 mls/hr Enteral Nutritional Formula (Glucerna 1.5) 1,000 mls @ 15 mls/hr GT .Q48H [facility] Last Admin: 12/18/17 14:24 Dose: 15 mls/hr Furosemide 500 mg/ N/A 50 mls @ 2 mls/hr CONT INF .Q25H [facility] Last Admin: 12/19/17 03:40 Dose: 2 mls/hr Piperacillin Sod/Tazobactam Sod (Zosyn) 3.375 gm in 50 mls @ 12.5 mls/hr IV Q8 [facility] Stop: 12/23/17 09:59 Last Admin: 12/19/17 06:27 Dose: 12.5 mls/hr Sodium Chloride () 1,000 mls @ 0 mls/hr IV .Q0M [facility] Potassium Chloride (Kcl 10meq/100ml) 10 meq in 100 mls @ 100 mls/hr IV BOLUS Q1H [facility] Stop: 12/19/17 11:29 Last Admin: 12/19/17 08:48 Dose: 100 mls/hr Insulin Human Lispro (Humalog Kwikpen (Bkc)) 0 unit SQ Q6 [facility]; Protocol Last Admin: 12/19/17 07:08 Dose: 3 units Magnesium Hydroxide (Milk Of Magnesia) 30 ml PO DAILY PRN PRN PRN Reason: Constipation Methylprednisolone (Solu-Medrol) 40 mg IV Q6 [facility] Last Admin: 12/19/17 06:27 Dose: 40 mg Polyethylene Glycol (Miralax) 17 gm GT BID [facility] Last Admin: 12/18/17 21:21 Dose: 17 gm Potassium Bicarb/Potassium Chloride (Potassium Chl 25 Meq Eff (For Liquid)) 25 meq GT BID [facility] Last Admin: 12/18/17 21:21 Dose: 25 meq Senna/Docusate Sodium (Senokot-S, Anne-Marie-Colace) 2 tablet GT BID [facility] Last Admin: 12/18/17 21:21 Dose: 2 tablet Sodium Chloride () 5 - 30 ml IV UD PRN PRN Reason: SALINE FLUSH Last Admin: 12/19/17 06:31 Dose: 10 ml Medical Necessity - Tobacco Use Smoking Status: Current every day smoker Assessment/Plan All Active Problems (Last Updated 11/10/17 @ 12:14 by Brennon Maloney NP-C) Acute respiratory failure with hypoxia and hypercapnia (Acute) Pneumococcal pneumonia (Acute) Metabolic encephalopathy (Acute) Heart failure with reduced ejection fraction (Acute) Chest pain (Resolved) Respiratory failure, acute (Resolved) 1. Acute hypoxic respiratory failure due to CHF exacerbation and aspiration pneumonia still intubated and sedated. Now requiring FiO2 of 100%,a nd PEEP went up to 20; now down to PEEP of 15. weight down by 65 pounds since admission; made 7.95L of urine over last 24 hours, was in negative balance by 4.37L may have aspirated during recent rapid response o/a of endotracheal tube coming loose. on IV zosyn; per discussion with hospice chaplain, to add on IV levaquin. continue on lasix drip and metolazone. Breathing treatments and IV steroids. RASS score is 0 2. ACute diastolic CHF exacerbation has history of ischemic cardiomyopathy still on lasix drip and metolazone echo: showed normal LV function, unable to quantify RVSP. EF was 60% 3. Ventilator associated pneumonia and possible aspiration pneumonia still remains febrile; may have aspirated as mentioned under 1/ sputum cultured Klebsiella and pneumonia. continue IV zosyn; to add on IV levaqin. 4. Metabolic alkalosis; likely due to contraction alkalosis Bicarb is 43 today on acetazolamide 5. Hypotension: Likely due to diuresis and also sedatives. He has remained hemodynamically stable BP meds remain on hold. WIll monitor. 6. Hypokalemia:K today is 3.3; will replace and monitor 7. CAD: on aspirin and plavix as well as statin 8. Diabetes mellitus: on ISS. accuchecks q6 9. EMILIA: currently on ventilator due to respiratory failure 10. Hypertension: losartan and carvedilol on hold o/a of hypotension. 11;. MOrbid obesity: BMI >50. Complicates care DVT prophylaxis: heparin GI prophylaxis: famotidine COde status: full code. IRWIN is his healthcare agricultural research engineer. Code Visit Inpatient E&M: 64766 Subs Hosp L3
--- NOTE | 2017-12-19 09:00 | PN_ITS ---
Subjective: Patient seen and examined. She remains intubated and sedated. He had increased oxygen requirements overnight and is up to 100% FiO2. He also required increased PEEP and was up to 20 of PEEP; he is now down to 15 of PEEP. he has remained febrile. He is alert and RASS score is 0. He denies any chest pain, abdominal pain, diarrhea or vomiting. Discussed with computer project manager, patient likely aspirated when a rapid response was called a few days ago on account of his endotracheal tube coming loose. He had to be reintubated then. Labs and vitals reviewed. Vitals/I&O's: Vital Signs Temp Pulse Resp BP Pulse Ox 101 F H 76 14 111/74 97 12/19/17 08:00 12/19/17 08:00 12/19/17 08:00 12/19/17 08:00 12/19/17 08:00 Oxygen Flow Rate (L/min) 70 Oxygen Delivery Method Mechanical Ventilator Weight: 317 lb 3.923 oz Body Mass Index (BMI) 55.5 Finger Stick Blood Glucose 135 Intake and Output for Last 24 Hours 12/17/17 12/18/17 12/19/17 23:59 23:59 23:59 Intake Total 2110.1 / 2110.1 3579 / 3579 1029 / 1029 Output Total 4050 / 4050 7950 / 7950 1900 / 1900 Balance -1939.9 / -1939.9 -4371 / -4371 -871 / -871 General: Alert, Cooperative, No apparent distress HEENT: Atraumatic, PERRLA, EOMI, Normocephalic Oral: Moist Mucosa Neck: Supple, No JVD, Negative Carotid Bruits Lungs: - - still has decreased breath sounds bibasally; no wheezes or crackles. Cardiovascular: Regular rate, Regular Rhythm, Normal S1, Normal S2, No murmurs Abdomen: Bowel Sounds Present, Soft, Non Tender, Non-Distended, No Hepato- splenomegaly Extremities: No clubbing, No cyanosis, Capillary Refill Less than 3 Seconds, - - now has 1+ edema bilaterally; edema has improved significantly Skin: No rashes, No breakdown Musculoskeletal: No Tenderness to Palpation of Joints or Extremities Lymphatic: No Cervical, Supraclavicular, or Inguinal Adenopathy Neurological: Cranial nerves II-XII grossly intact, - - intubated, sedated, RASS score is 0 Psych/Mental Status: - - RASS score is 0; sedated, intubated Microbiology Past 72 Hours 12/16/17 12:35 Sputum, Induced/Lukens Gram Stain - Final 12/16/17 12:35 Sputum, Induced/Lukens Respiratory Culture - Final Klebsiella oxytoca 12/12/17 08:20 Blood Culture (Wb) - Anticubital Right Blood Culture - Final No growth in 5 days. 12/12/17 07:30 Blood Culture (Wb) - Anticubital Left Blood Culture - Final No growth in 5 days. 12/13/17 06:50 Sputum, Induced/Lukens Gram Stain - Final 12/13/17 06:50 Sputum, Induced/Lukens Respiratory Culture - Final Streptococcus pneumoniae Laboratory Results 12/18/17 11:31: POC Glucose 216 H 12/18/17 17:12: POC Glucose 220 H 12/19/17 00:03: POC Glucose 255 H 12/19/17 01:15: Sodium 141, Potassium 3.3 L, Chloride 89 L, Carbon Dioxide 43.0 H, Anion Gap 9, BUN 56 H, Creatinine 1.24, Estim Creat Clear Calc 62.06, Est GFR (MDRD) Af Amer 77, Est GFR (MDRD) Non-Af 63, BUN/Creatinine Ratio 45.2 H, Glucose 230 H, Calcium 9.6 12/19/17 01:15: WBC 7.5, RBC 4.54 L, Hgb 12.7 L, Hct 42.1, MCV 92.7, MCH 28.0, MCHC 30.2 L, RDW 14.7 H, RDW Differential 47.8 H, Plt Count 293, MPV 10.2, Immature Gran % (Auto) 0.400, Neut % (Auto) 74.1 H, Lymph % (Auto) 14.4 L, Mclennan % (Auto) 11.0 H, Eos % (Auto) 0.0, Baso % (Auto) 0.1, Absolute Neuts (auto) 5.5, Absolute Lymphs (auto) 1.07, Total Counted Not Reportable 12/19/17 01:15: PT 13.4, INR 1.0, APTT 25.0 12/19/17 04:10: Urine Color Yellow, Urine Clarity Clear, Urine pH 6.5, Ur Specific [place] 1.010, Urine Protein Negative, Urine Glucose (UA) Normal, Urine Ketones Negative, Urine Occult Blood Negative, Urine Nitrite Negative, Urine Bilirubin Negative, Urine Urobilinogen Normal, Ur Leukocyte Esterase 25 H, Urine RBC 0 SEEN, Urine WBC 0 SEEN, Ur Squamous Epith Cells 0 SEEN, Urine Bacteria 0 SEEN, Urine Mucus 0 SEEN 12/19/17 06:46: POC Glucose 249 H Current Medications Acetaminophen (Tylenol Liquid) 650 mg GT Q6H PRN PRN PRN Reason: FEVER Last Admin: 12/19/17 03:44 Dose: 650 mg Acetazolamide (Diamox) 125 mg GT BID [facility] Last Admin: 12/18/17 21:22 Dose: 125 mg Albuterol Sulfate (Ventolin Aerosols) 2.5 mg INHALATION Q6HWA.RT [facility] Last Admin: 12/19/17 06:29 Dose: 2.5 mg Aspirin (Aspirin, Baby) 81 mg GT DAILY [facility] Last Admin: 12/19/17 06:28 Dose: 81 mg Atorvastatin Calcium (Lipitor) 40 mg GT QHS [facility] Last Admin: 12/18/17 21:24 Dose: 40 mg Chlorhexidine Gluconate () 15 ml PO BID [facility] Last Admin: 12/19/17 07:49 Dose: 15 ml Clopidogrel Bisulfate (Plavix) 75 mg GT DAILY [facility] Last Admin: 12/19/17 06:28 Dose: 75 mg Dextrose (D50w Syringe) 0 gm IV X1 PRN; Protocol PRN Reason: Hypoglycemia Famotidine (Pepcid) 20 mg GT BID [facility] Last Admin: 12/18/17 21:21 Dose: 20 mg Glucagon () 1 mg IM .X1 PRN PRN Reason: Hypoglycemia Heparin Sodium (Porcine) (Heparin Na) 5,000 unit SC Q8 [facility] Last Admin: 12/19/17 01:57 Dose: Not Given Sodium Chloride () 250 mls @ 15 mls/hr IV .[id number] PRN PRN Reason: SALINE FLUSH Sodium Chloride () 250 mls @ 15 mls/hr IV .[id number] PRN PRN Reason: SALINE FLUSH Last Admin: 12/16/17 21:29 Dose: 15 mls/hr Fentanyl () 100 mls @ 5 mls/hr IV .Q20H [facility] Last Admin: 12/19/17 00:43 Dose: 5 mls/hr Propofol (Diprivan) 1,000 mg in 100 mls @ 9.852 mls/hr CONT INF .[id number] [facility] Last Admin: 12/19/17 03:41 Dose: 9.852 mls/hr Enteral Nutritional Formula (Glucerna 1.5) 1,000 mls @ 15 mls/hr GT .Q48H [facility] Last Admin: 12/18/17 14:24 Dose: 15 mls/hr Furosemide 500 mg/ N/A 50 mls @ 2 mls/hr CONT INF .Q25H [facility] Last Admin: 12/19/17 03:40 Dose: 2 mls/hr Piperacillin Sod/Tazobactam Sod (Zosyn) 3.375 gm in 50 mls @ 12.5 mls/hr IV Q8 [facility] Stop: 12/23/17 09:59 Last Admin: 12/19/17 06:27 Dose: 12.5 mls/hr Sodium Chloride () 1,000 mls @ 0 mls/hr IV .Q0M [facility] Potassium Chloride (Kcl 10meq/100ml) 10 meq in 100 mls @ 100 mls/hr IV BOLUS Q1H [facility] Stop: 12/19/17 11:29 Last Admin: 12/19/17 08:48 Dose: 100 mls/hr Insulin Human Lispro (Humalog Kwikpen (Bkc)) 0 unit SQ Q6 [facility]; Protocol Last Admin: 12/19/17 07:08 Dose: 3 units Magnesium Hydroxide (Milk Of Magnesia) 30 ml PO DAILY PRN PRN PRN Reason: Constipation Methylprednisolone (Solu-Medrol) 40 mg IV Q6 [facility] Last Admin: 12/19/17 06:27 Dose: 40 mg Polyethylene Glycol (Miralax) 17 gm GT BID [facility] Last Admin: 12/18/17 21:21 Dose: 17 gm Potassium Bicarb/Potassium Chloride (Potassium Chl 25 Meq Eff (For Liquid)) 25 meq GT BID [facility] Last Admin: 12/18/17 21:21 Dose: 25 meq Senna/Docusate Sodium (Senokot-S, Anne-Marie-Colace) 2 tablet GT BID [facility] Last Admin: 12/18/17 21:21 Dose: 2 tablet Sodium Chloride () 5 - 30 ml IV UD PRN PRN Reason: SALINE FLUSH Last Admin: 12/19/17 06:31 Dose: 10 ml Medical Necessity - Tobacco Use Smoking Status: Current every day smoker Assessment/Plan All Active Problems (Last Updated 11/10/17 @ 12:14 by Brennon Maloney NP-C) Acute respiratory failure with hypoxia and hypercapnia (Acute) Pneumococcal pneumonia (Acute) Metabolic encephalopathy (Acute) Heart failure with reduced ejection fraction (Acute) Chest pain (Resolved) Respiratory failure, acute (Resolved) 1. Acute hypoxic respiratory failure due to CHF exacerbation and aspiration pneumonia * still intubated and sedated. Now requiring FiO2 of 100%,a nd PEEP went up to 20; now down to PEEP of 15. * weight down by 65 pounds since admission; made 7.95L of urine over last 24 hours, was in negative balance by 4.37L * may have aspirated during recent rapid response o/a of endotracheal tube coming loose. * on IV zosyn; per discussion with computer project manager, to add on IV levaquin. * continue on lasix drip and metolazone. * Breathing treatments and IV steroids. * RASS score is 0 * 2. ACute diastolic CHF exacerbation * has history of ischemic cardiomyopathy * still on lasix drip and metolazone * echo: showed normal LV function, unable to quantify RVSP. EF was 60% * * 3. Ventilator associated pneumonia and possible aspiration pneumonia * still remains febrile; may have aspirated as mentioned under 1/ * sputum cultured Klebsiella and pneumonia. * continue IV zosyn; to add on IV levaqin. * * 4. Metabolic alkalosis; likely due to contraction alkalosis * Bicarb is 43 today * on acetazolamide * 5. Hypotension: * Likely due to diuresis and also sedatives. He has remained hemodynamically stable * BP meds remain on hold. WIll monitor. * 6. Hypokalemia:K today is 3.3; will replace and monitor 7. CAD: on aspirin and plavix as well as statin 8. Diabetes mellitus: on ISS. accuchecks q6 9. EMILIA: currently on ventilator due to respiratory failure 10. Hypertension: losartan and carvedilol on hold o/a of hypotension. 11;. MOrbid obesity: BMI >50. Complicates care DVT prophylaxis: heparin GI prophylaxis: famotidine COde status: full code. IRWIN is his healthcare wrapper sheeter. Code Visit Inpatient E&M: 00723 Subs Hosp L3
--- NOTE | 2017-12-19 09:11 | PN.CARD_ITS ---
Subjectve: Patient had an acute decrease in his O2 requirements last evening, requiring 100% FiO2 remaining at a PEEP of 15. Patient was given metolazone yesterday with very decent diuresis to the point where his legs are almost completely normal. Despite aggressive diuresis, his O2 requirements are going up. Blood pressure has maintained okay. Suspicion of possible aspiration pneumonitis due to recent emergent reintubation for cuff balloon deflation versus pulmonary embolism, or both. Chest x-ray reviewed and not too impressive for pulmonary infiltrate. Catheterization put on hold. Objective: Vital Signs Temp Pulse Resp BP Pulse Ox 101 F H 76 14 111/74 97 12/19/17 08:00 12/19/17 08:00 12/19/17 08:00 12/19/17 08:00 12/19/17 08:00 Oxygen Flow Rate (L/min) 70 Oxygen Delivery Method Mechanical Ventilator Weight: 317 lb 3.923 oz Body Mass Index (BMI) 55.5 Finger Stick Blood Glucose 135 Intake and Output for Last 24 Hours 12/17/17 12/18/17 12/19/17 23:59 23:59 23:59 Intake Total 2110.1 / 2110.1 3579 / 3579 1029 / 1029 Output Total 4050 / 4050 7950 / 7950 1900 / 1900 Balance -1939.9 / -1939.9 -4371 / -4371 -871 / -871 General: Awake, Alert, Oriented x 3 HEENT: PERRL, EOMI, Sclera Non Icteric Neck: Supple, Good ROM, No Lymph Node Enlargement Lungs: Clear to auscultation Cardiovascular: Regular Rhythm, Normal S1, Normal S2, No Murmurs, No Rubs, No Gallops Vascular: No Carotid Bruits, Normal Femoral Pulses, Normal Radial Pulses, Normal Dorsalis Pedal Pulse, Normal Posterior Tibial Pulses Abdomen: Bowel Sounds Present, Soft, Non Tender, No HSM, No Organomegaly Extremities: No Cyanosis, No Clubbing, No edema Neurological: No Focal Motor or Sensory Deficit 12/19/17 01:15: Sodium 141, Potassium 3.3 L, Chloride 89 L, Carbon Dioxide 43.0 H, Anion Gap 9, BUN 56 H, Creatinine 1.24, Est GFR (MDRD) Af Amer 77, Est GFR (MDRD) Non-Af 63, BUN/Creatinine Ratio 45.2 H, Glucose 230 H, Calcium 9.6 12/19/17 01:15: WBC 7.5, RBC 4.54 L, Hgb 12.7 L, Hct 42.1, MCV 92.7, MCH 28.0, MCHC 30.2 L, RDW 14.7 H, RDW Differential 47.8 H, Plt Count 293, MPV 10.2, Immature Gran % (Auto) 0.400, Neut % (Auto) 74.1 H, Lymph % (Auto) 14.4 L, [place] % (Auto) 11.0 H, Eos % (Auto) 0.0, Baso % (Auto) 0.1, Absolute Neuts (auto) 5.5, Total Counted Not Reportable 12/19/17 01:15: PT 13.4, INR 1.0, APTT 25.0 12/19/17 04:10: Urine Color Yellow, Urine Clarity Clear, Urine pH 6.5, Ur Specific [place] 1.010, Urine Protein Negative, Urine Glucose (UA) Normal, Urine Ketones Negative, Urine Occult Blood Negative, Urine Nitrite Negative, Urine Bilirubin Negative, Urine Urobilinogen Normal, Ur Leukocyte Esterase 25 H, Urine RBC 0 SEEN, Urine WBC 0 SEEN Rhythm: EKG: ECHO: Stress Test: Cardiac Cath: PCI: CT Surgery: Holter monitor: EPS: PPM: CXR: Chest CT Scan: Medical Necessity - Tobacco Use Smoking Status: Current every day smoker Assessment/Plan 1. Coronary artery disease: Patient has no significant troponin release despite having known coronary artery disease. He has a known occluded right coronary artery, with collateral from left to right, and is status post angioplasty and stenting to his LAD in 2012 and left circumflex in June 2017. Patient has had no malignant arrhythmias, and apparently presented with respiratory distress possibly due to pulmonary source of infection. He is being treated with broad- spectrum antibiotics and is on no pressor support at this time. Patient does have evidence of right-sided heart failure and unknown pulmonary pressures by echocardiogram on day of admission. His EF was estimated to be 60% although his imaging was technically difficult. I reviewed his echocardiogram again today, and suggest moderate global LV dysfunction with right ventricular enlargement. He is currently undergoing diuresis with a Lasix drip to assist with decompressing his right side, as well as to facilitate extubation. Patient had a failed weaning trial on Tuesday morning with subsequent trache balloon rupture requiring emergent reintubation. Would recommend continuing IV diuresis with IV Lasix until the patient has reached his dry weight, and his lower extremity edema has resolved. Would recommend a net negative at 2.0 L daily if his blood pressure and bicarbonate tolerated.. Patient's bicarbonate is normalizing with Diamox therapy. Recommend continuing Diamox therapy. Chest x-ray shows improved pulmonary edema, and his oxygen saturations are satisfactory. Patient received metolazone yesterday with an aggressive 4.3 L diuresis and almost complete normalization of his lower extremities. Despite this patient had significant increase in his O2 requirements suggesting possible aspiration versus pulmonary embolus. After discussing the options with Dr. Campos, we will empirically treat the patient with IV heparin and hold off on CT scan at this time given the patient's pulmonary status. At this point with the patient's challenges with weaning off the ventilator, he may have transient cardiac ischemia while he is weaning. I spoke with the patient's power of compliance attorney yesterday, and explained the risks/benefits of the procedure of the left heart catheterization, coronary angiogram, angioplasty, and right heart catheterization, with specific attention to lack of on-site surgical backup, and the power of compliance attorney has given permission to move forward. His catheterization was put on hold today due to the patient's high risk O2 requirements. Right heart catheterization may be somewhat problematic if the patient had a pulmonary embolism. My preference would be to get a diagnosis with a CT scan for sure, in order to assess whether he requires long-term anticoagulation therapy. We will assess his catheterization candidacy on a day-to-day basis. If his catheterization shows no correctable coronary disease, and if we are unable to get more the ventilator, he may require tracheostomy for additional weaning. Would recommend he continue his baby aspirin, Plavix, and hold his antihypertensives given his infection and hypotension. He has not required pressor agents at this time. Patient appears to be holding his blood pressure and his bicarbonate has been stabilized around 40. Hopefully this will assist with decompressing his lungs to assist with extubation however his pulmonary hypertension may be irreversible. If the patient drops his blood pressure and maintains his high PEEP requirements, the patient may have irreversible pulmonary hypertension which would mandate a decision for either terminal extubation or tracheostomy/PEG tube placement. 2. Obstructive sleep apnea: The patient is evidence of pulmonary hypertension and right-sided heart failure most likely result of obstructive sleep apnea. He is on chronic O2 therapy at home as well. Patient may be preload dependent so if his blood pressure deteriorates with IV diuresis, he may require discontinuation of IV diuretic therapy. 3. Hyperlipidemia: Continue statin based medications. 4. Thank you very much for the opportunity to participate in the cardiac care of your patient. Discussed with Dr. Campos. Code Visit Inpatient E&M: 31864 Subs Hosp L2
[2017-12-19] MEDS: levoFLOXacin IV 750 MG/150 ML BAG 100 MG IV (10:05)
[2017-12-19 11:26] LABS: Bedside Glucose 272 mg/dL (70-110)
[2017-12-19] MEDS: Heparin Injection (Vial) 5,000 UNIT/ML VIAL 5000 UNIT SC ×2 (13:11→21:25)
--- NOTE | 2017-12-19 13:21 | NURSING ---
talked with IRWIN Anthony informed him cardiac cath did not take place today, up date on patients condition voiced understanding, will update with any additional changes in condition as needed
[2017-12-19 16:16] LABS: Bedside Glucose 266 mg/dL (70-110)
--- NOTE | 2017-12-19 20:15 | NURSING ---
Pt has continued elevated temps despite regular administration of ordered Tylenol. Placed on cooling blanket for pt comfort and temp control.
[2017-12-19] MEDS: Atorvastatin Calcium 40 MG Tablet GT (21:25)
--- NOTE | 2017-12-19 22:00 | NURSING ---
CHG bath and linen change for Heart Cath prep performed.
[2017-12-19 23:20] LABS: Bedside Glucose 321 mg/dL (70-110)
[2017-12-20] VITALS (45 sets, daily range): BP systolic 60–129; BP diastolic 31–85; PULSE 66–86; RESP 12–92; TEMP 37.3–38.1; O2SAT 86–96
[2017-12-20] MEDS: Propofol 10MG/Ml 1,000 MG/100 ML Bottle 9.852 MG CONT INF ×4 (02:21→20:52)
[2017-12-20] MEDS: 0.9% NaCl Peripheral Flush Adult/Peds IV (04:05)
[2017-12-20 04:15] LABS: Absolute Lymphocyte Count 0.76 X10^3/ul (0.83-4.51); Absolute Neutrophil Count 5.5 X10^3/uL (2.0-7.7); Basophil# 0.01 X10^3/uL; Basophil% 0.1 % (0-1); Hematocrit 44.7 % (40-54); Hemoglobin 13.6 g/dl (13.0-16.5); Lymphocyte # 0.76 X10^3/ul (4.0); Lymphocyte % 10.5 % (19-41); Mean Corp Hgb Conc 30.4 g/gl (32-36); Mean Corpuscular Hgb 27.9 pg (27.0-32.0); Mean Corpuscular Volume 91.8 fL (80-94); Mean Platelet Vol. 10.6 fl (6.2-12.0); Monocyte# 0.93 X10^3/uL; Monocyte% 12.8 % (0-10); Neutrophil # 5.53 X10^3/uL (2.7-7.7); Platelet Count 275 K/mm3 (150-450); RBC Distribution Width CV 14.4 % (11.6-14.6); RBC Distribution Width SD 47.3 fl (35.1-43.9); Red Blood Count 4.87 M/mm3 (4.6-6.2); White Blood Count 7.3 K/mm3 (4.4-11.0)
[2017-12-20 04:17] LABS: POSITIVE COUNT NO; POSITIVE DIFFERENTIAL NO; POSITIVE MORPHOLOGY NO
[2017-12-20 04:22] LABS: International Normalized Ratio 1.1; Prothrombin Time (Protime)PT. 14.3 SECONDS (11.7-14.9)
[2017-12-20 04:23] LABS: Partial Thromboplast Time 20.1 Seconds (24.1-36.2)
[2017-12-20 04:29] LABS: Anion Gap 8 (5-15); BUN 84 mg/dL (7-18); BUN/Creat Ratio 63.2 RATIO (10-20); Calcium,Total 9.8 mg/dL (8.5-10.1); Chloride 95 mmol/L (98-107); Creatinine, Serum 1.33 mg/dL (0.70-1.30); EST Glomerular Filtration Rate 58 mL/min (>60); Est Glom Filt Rate - Afr Amer 71 mL/min (>60); Estimated Creatinine Clearance 57.86 ml/min; Glucose 291 mg/dL (74-106); Potassium 3.5 mmol/L (3.5-5.1); Sodium Level 146 mmol/L (136-145)
[2017-12-20 05:41] LABS: Bedside Glucose 293 mg/dL (70-110)
[2017-12-20] MEDS: CHLORHEXIDINE GLUC 2% CLOTH 1 EACH TOWELETTE TOPICAL (05:52)
[2017-12-20] MEDS: Aspirin 81 MG TAB.CHEW GT (05:53)
[2017-12-20] MEDS: Clopidogrel Bisulfate 75 MG Tablet GT (05:53)
--- NOTE | 2017-12-20 06:05 | RAD_ITS ---
STUDY: X-RAY CHEST REASON FOR EXAM: Male, 57 years old. The patient is intubated. TECHNIQUE: Single AP portable view of the chest. COMPARISON: Comparison is made with prior study dated December 19, 2017. FINDINGS: The endotracheal tube is in situ. The tip is at 4.8 cm proximal to the byron. An enteric gastric tube is seen with the tip in the body of the stomach. EKG electrodes are seen. Persistent increased markings are seen in the left lower lobe suggestive of left basilar atelectasis and/or infiltrate. This has increased. Blunting of the left costophrenic angle. There is mild cardiac enlargement. Normal mediastinum and marta. Normal visualized pulmonary arteries. There is atherosclerotic tortuosity of the aortic arch and descending thoracic aorta. There are diffuse degenerative changes of the visualized thoracic spine. Normal visualized ribs, clavicles, and shoulders. There is no demonstrated abnormality of the visualized soft tissue structures of the upper abdomen. RAD/Chest 1 View (Portable) IMPRESSION: Stable position of the endotracheal tube and enterogastric tube. Progressive left lower lobe atelectasis and/or infiltrate. Electronically Signed: Akhil Izquierdo MD at 9:15 EST Tel [phone], Service support ,
[2017-12-20] MEDS: Albuterol 2.5 MG/3 ML VIAL.NEB. INHALATION ×2 (06:25→13:22)
--- NOTE | 2017-12-20 06:43 | PN_ITS ---
Subjective: Patient did okay overnight. Patient has been able to be weaned to 60% FiO2, but is still requiring 15 of PEEP. Patient has been persistently febrile, so cooling blanket has been added. Patient did have desaturation associated with being placed on his right side overnight. A sputum culture was obtained. Patient is also had significant diarrhea overnight. Objective: Morning chest x-ray was personally reviewed. Endotracheal tube is high, but no obvious infiltrates are appreciated. General: Alert, Cooperative, No apparent distress, - - Appears older than stated age. Morbidly obese. HEENT: Atraumatic, PERRLA, EOMI, Normocephalic, - - No scleral icterus or inj ection noted. Oral: Moist Mucosa, No Gingival or Mucosal Lesions/ Ulcerations Neck: Supple, No Nodes, Trachea Midline, JVD, Right Lungs: No rhonchi, No wheeze, No rales, Diminished, - - Symmetric expansion. No dullness to percussion. Cardiovascular: Regular rate, Regular Rhythm, Normal S1, Normal S2, No murmurs, - - Some PVCs noted on telemetry Abdomen: Bowel Sounds Present, Soft, Non Tender, Non-Distended, Obese Extremities: No cyanosis, Capillary Refill Less than 3 Seconds, Clubbing, Edema, - - Amputation of left great toe Skin: - - No significant change compared to previous Musculoskeletal: No Tenderness to Palpation of Joints or Extremities, No Muscle Wasting Lymphatic: No Cervical, Supraclavicular, or Inguinal Adenopathy Neurological: Cranial nerves II-XII grossly intact, Neuro grossly intact, Motor Exam 5/5 strength throughout Psych/Mental Status: Normal Affect, Appropriate Vital Signs Temp Pulse Resp BP Pulse Ox 37.5 C H 70 14 129/84 H 96 12/20/17 06:00 12/20/17 06:00 12/20/17 06:00 12/20/17 06:00 12/20/17 06:00 Oxygen Flow Rate (L/min) 70 Oxygen Delivery Method Mechanical Ventilator Weight: 143.7 kg Body Mass Index (BMI) 55.5 Finger Stick Blood Glucose 239 Intake and Output for Last 24 Hours 12/18/17 12/19/17 12/20/17 23:59 23:59 23:59 Intake Total 3579 / 3579 3845.4 / 3845.4 208.4 / 208.4 Output Total 7950 / 7950 5000 / 5000 1200 / 1200 Balance -4371 / -4371 -1154.6 / -1154.6 -991.6 / -991.6 Labs (Last 48 Hours) 12/18/17 12/18/17 12/18/17 08:25 11:31 17:12 WBC RBC Hgb Hct MCV MCH MCHC RDW RDW Differential Plt Count MPV Immature Gran % (Auto) Neut % (Auto) Lymph % (Auto) [place] % (Auto) Eos % (Auto) Baso % (Auto) Absolute Neuts (auto) Absolute Lymphs (auto) Total Counted PT INR APTT Sodium 143 Potassium 3.6 Chloride 99 Carbon Dioxide 40.0 H Anion Gap 4 L BUN 41 H Creatinine 0.98 Estim Creat Clear Calc 78.52 Est GFR (MDRD) Af Amer 100 Est GFR (MDRD) Non-Af 83 BUN/Creatinine Ratio 41.8 H Glucose 203 H Calcium 8.7 Urine Color Urine Clarity Urine pH Ur Specific [place] Urine Protein Urine Glucose (UA) Urine Ketones Urine Occult Blood Urine Nitrite Urine Bilirubin Urine Urobilinogen Ur Leukocyte Esterase Urine RBC Urine WBC Ur Squamous Epith Cells Urine Bacteria Urine Mucus POC Glucose 216 H 220 H 12/19/17 12/19/17 12/19/17 00:03 01:15 01:15 WBC 7.5 RBC 4.54 L Hgb 12.7 L Hct 42.1 MCV 92.7 MCH 28.0 MCHC 30.2 L RDW 14.7 H RDW Differential 47.8 H Plt Count 293 MPV 10.2 Immature Gran % (Auto) 0.400 Neut % (Auto) 74.1 H Lymph % (Auto) 14.4 L [place] % (Auto) 11.0 H Eos % (Auto) 0.0 Baso % (Auto) 0.1 Absolute Neuts (auto) 5.5 Absolute Lymphs (auto) 1.07 Total Counted Not Reportable PT INR APTT Sodium 141 Potassium 3.3 L Chloride 89 L Carbon Dioxide 43.0 H Anion Gap 9 BUN 56 H Creatinine 1.24 Estim Creat Clear Calc 62.06 Est GFR (MDRD) Af Amer 77 Est GFR (MDRD) Non-Af 63 BUN/Creatinine Ratio 45.2 H Glucose 230 H Calcium 9.6 Urine Color Urine Clarity Urine pH Ur Specific [place] Urine Protein Urine Glucose (UA) Urine Ketones Urine Occult Blood Urine Nitrite Urine Bilirubin Urine Urobilinogen Ur Leukocyte Esterase Urine RBC Urine WBC Ur Squamous Epith Cells Urine Bacteria Urine Mucus POC Glucose 255 H 12/19/17 12/19/17 12/19/17 01:15 04:10 06:46 WBC RBC Hgb Hct MCV MCH MCHC RDW RDW Differential Plt Count MPV Immature Gran % (Auto) Neut % (Auto) Lymph % (Auto) [place] % (Auto) Eos % (Auto) Baso % (Auto) Absolute Neuts (auto) Absolute Lymphs (auto) Total Counted PT 13.4 INR 1.0 APTT 25.0 Sodium Potassium Chloride Carbon Dioxide Anion Gap BUN Creatinine Estim Creat Clear Calc Est GFR (MDRD) Af Amer Est GFR (MDRD) Non-Af BUN/Creatinine Ratio Glucose Calcium Urine Color Yellow Urine Clarity Clear Urine pH 6.5 Ur Specific [place] 1.010 Urine Protein Negative Urine Glucose (UA) Normal Urine Ketones Negative Urine Occult Blood Negative Urine Nitrite Negative Urine Bilirubin Negative Urine Urobilinogen Normal Ur Leukocyte Esterase 25 H Urine RBC 0 SEEN Urine WBC 0 SEEN Ur Squamous Epith Cells 0 SEEN Urine Bacteria 0 SEEN Urine Mucus 0 SEEN POC Glucose 249 H 12/19/17 12/19/17 12/19/17 11:21 16:09 23:17 WBC RBC Hgb Hct MCV MCH MCHC RDW RDW Differential Plt Count MPV Immature Gran % (Auto) Neut % (Auto) Lymph % (Auto) [place] % (Auto) Eos % (Auto) Baso % (Auto) Absolute Neuts (auto) Absolute Lymphs (auto) Total Counted PT INR APTT Sodium Potassium Chloride Carbon Dioxide Anion Gap BUN Creatinine Estim Creat Clear Calc Est GFR (MDRD) Af Amer Est GFR (MDRD) Non-Af BUN/Creatinine Ratio Glucose Calcium Urine Color Urine Clarity Urine pH Ur Specific [place] Urine Protein Urine Glucose (UA) Urine Ketones Urine Occult Blood Urine Nitrite Urine Bilirubin Urine Urobilinogen Ur Leukocyte Esterase Urine RBC Urine WBC Ur Squamous Epith Cells Urine Bacteria Urine Mucus POC Glucose 272 H 266 H 321 H 12/20/17 12/20/17 12/20/17 04:05 04:05 04:05 WBC 7.3 RBC 4.87 Hgb 13.6 Hct 44.7 MCV 91.8 MCH 27.9 MCHC 30.4 L RDW 14.4 RDW Differential 47.3 H Plt Count 275 MPV 10.6 Immature Gran % (Auto) 0.600 Neut % (Auto) 76.0 H Lymph % (Auto) 10.5 L [place] % (Auto) 12.8 H Eos % (Auto) 0.0 Baso % (Auto) 0.1 Absolute Neuts (auto) 5.5 Absolute Lymphs (auto) 0.76 L Total Counted Not Reportable PT 14.3 INR 1.1 APTT 20.1 L Sodium 146 H Potassium 3.5 Chloride 95 L Carbon Dioxide 43.0 H Anion Gap 8 BUN 84 H Creatinine 1.33 H Estim Creat Clear Calc 57.86 Est GFR (MDRD) Af Amer 71 Est GFR (MDRD) Non-Af 58 L BUN/Creatinine Ratio 63.2 H Glucose 291 H Calcium 9.8 Urine Color Urine Clarity Urine pH Ur Specific [place] Urine Protein Urine Glucose (UA) Urine Ketones Urine Occult Blood Urine Nitrite Urine Bilirubin Urine Urobilinogen Ur Leukocyte Esterase Urine RBC Urine WBC Ur Squamous Epith Cells Urine Bacteria Urine Mucus POC Glucose 12/20/17 05:29 WBC RBC Hgb Hct MCV MCH MCHC RDW RDW Differential Plt Count MPV Immature Gran % (Auto) Neut % (Auto) Lymph % (Auto) [place] % (Auto) Eos % (Auto) Baso % (Auto) Absolute Neuts (auto) Absolute Lymphs (auto) Total Counted PT INR APTT Sodium Potassium Chloride Carbon Dioxide Anion Gap BUN Creatinine Estim Creat Clear Calc Est GFR (MDRD) Af Amer Est GFR (MDRD) Non-Af BUN/Creatinine Ratio Glucose Calcium Urine Color Urine Clarity Urine pH Ur Specific [place] Urine Protein Urine Glucose (UA) Urine Ketones Urine Occult Blood Urine Nitrite Urine Bilirubin Urine Urobilinogen Ur Leukocyte Esterase Urine RBC Urine WBC Ur Squamous Epith Cells Urine Bacteria Urine Mucus POC Glucose 293 H Microbiology 12/16/17 12:35 Sputum, Induced/Lukens Gram Stain - Final 12/16/17 12:35 Sputum, Induced/Lukens Respiratory Culture - Final Klebsiella oxytoca Clinical Impression(s) from Imaging Studies Chest X-Ray 12/19/17 07:17 IMPRESSION: Residual increased markings at the left lung base suggestive of atelectasis and/or infiltrate. The remainder of the examination is unremarkable. Electronically Signed: Akhil Izquierdo MD at 8:45 EST Tel [phone], Service support , Medical Necessity - Tobacco Use Smoking Status: Current every day smoker Assessment/Plan All Active Problems (Last Updated 11/10/17 @ 12:14 by Brennon Maloney NP-C) Acute respiratory failure with hypoxia and hypercapnia (Acute) Pneumococcal pneumonia (Acute) Metabolic encephalopathy (Acute) Heart failure with reduced ejection fraction (Acute) Chest pain (Resolved) Respiratory failure, acute (Resolved) RECOMMENDATIONS: 1. Discontinue Lasix drip. Transition to intermittent Lasix 2. Continue IV Solu-Medrol 40 mg every 6 hours and bronchodilators. 3. Wean FiO2 and PEEP as tolerated. 4. Continue current antibiotics pending sputum culture 5. Continue tube feeds. 6. Aggressive potassium repletion as indicated 7. Continue current sedation regimen with a goal to maintain a RASS of -1 to 1. 8. Continue appropriate ICU prophylaxis with subcutaneous heparin and Pro tonix. IMPRESSIONS: 1. Acute on chronic combined respiratory failure Patient still requiring significant FiO2 and PEEP to maintain saturations at this time. Patient was significant contraction alkalosis. Patient will be discontinued off of Lasix drip. We will continue with Solu-Medrol for now. Patient is on mucolytic therapy. Chest x-ray is not very impressive for an aspiration pneumonia and patient does not have a leukocytosis. Unclear if patient's fever is secondary to a chemical pneumonitis. Patient has been intubated for an extended period of time. May need to evaluate for trach and PEG and LTAC evaluation if symptoms persist. Clinical concern for decompensation following aspiration event over the weekend. Will hold off on a CT with contrast given patient's elevated creatinine. 2. Metabolic encephalopathy Improved. Likely secondary to acute on chronic CO2 retention. Anticipate improvement with correction of the patient's underlying metabolic derangements. Minimize sedation as tolerated. 3. Decompensated heart failure/history of ischemic cardiomyopathy The patient's weight is significantly elevated when compared to that documented from November. Diuretics will be continued accordingly. Restart the patient's beta-lori once he has been volume optimized. Discussion of her heart catheterization and possible intra-aortic balloon pump. Concern from my perspective would be patient's persistent fevers do not have an explanation at this time. 4. Diabetes mellitus Continue Accu-Cheks and sliding scale insulin coverage. The patient has been tolerant of tube feeds to date. Blood sugars are trending up into the 300s. Will add basal insulin. 5. Obstructive sleep apnea The patient has a history of outpatient noncompliance with the use of nocturnal Pap therapy. He only utilizes supplemental oxygen on a nightly basis. 6. Ongoing tobacco dependence/super morbid obesity/history of medical noncompliance/hypertension Complicates care, management, recovery and prognosis. Nicotine replacement therapy can be utilized while admitted to the hospital. TIME: 37 minutes of critical care time, independent of procedures, was spent addressing the patient's acute on chronic combined respiratory failure, metabolic encephalopathy, decompensated heart failure, obstructive sleep apnea, review of all data and collaboration with the care team. (5:50 AM to 6:40 AM) Code Visit 9xxxx: [id number] Critical care first hour
--- NOTE | 2017-12-20 08:33 | PCM.PN.HOSP ---
Patient Problems: Active and Suspected Problems (Last Updated 11/10/17 @ 12:14 by Brennon Maloney, SAMPLE CUTTER-C) Klebsiella pneumonia (Acute) Acute respiratory failure with hypoxia and hypercapnia (Acute) Pneumococcal pneumonia (Acute) Metabolic encephalopathy (Acute) Heart failure with reduced ejection fraction (Acute) Subjective: Oxygen able to be weaned. Persistent fevers. Vitals/I&O's: Vital Signs Temp Pulse Resp BP Pulse Ox 37.6 C H 70 14 124/84 H 90 12/20/17 07:00 12/20/17 07:00 12/20/17 07:00 12/20/17 07:00 12/20/17 07:00 Oxygen Flow Rate (L/min) 70 Oxygen Delivery Method Mechanical Ventilator Weight: 143.7 kg Body Mass Index (BMI) 55.5 Finger Stick Blood Glucose 239 Intake and Output for Last 24 Hours 12/18/17 12/19/17 12/20/17 23:59 23:59 23:59 Intake Total 3579 / 3579 3845.4 / 3845.4 208.4 / 208.4 Output Total 7950 / 7950 5000 / 5000 1200 / 1200 Balance -4371 / -4371 -1154.6 / -1154.6 -991.6 / -991.6 General: Alert, No apparent distress, - - Intubated. Follows simple commands. Non toxic. HEENT: Atraumatic, PERRLA, EOMI, Normocephalic Oral: - - ETT and OG in place Neck: No Nodes, Thyroid Normal Size and Texture Lungs: Diminished, - - coarse BS bilaterally. Cardiovascular: Regular rate, Regular Rhythm, Normal S1, Normal S2, No murmurs Abdomen: Soft, Non Tender, Non-Distended, Obese Extremities: No Calf Tenderness, Edema - minimal Skin: - - venous stasis dermatitis. Musculoskeletal: No Tenderness to Palpation of Joints or Extremities, No Muscle Wasting Neurological: - - moves all extremitis spontaneously. follows simple commands (squeezing hands) Psych/Mental Status: Normal Affect, Appropriate Microbiology Past 72 Hours 12/16/17 12:35 Sputum, Induced/Lukens Gram Stain - Final 12/16/17 12:35 Sputum, Induced/Lukens Respiratory Culture - Final Klebsiella oxytoca 12/12/17 08:20 Blood Culture (Wb) - Anticubital Right Blood Culture - Final No growth in 5 days. 12/12/17 07:30 Blood Culture (Wb) - Anticubital Left Blood Culture - Final No growth in 5 days. 12/13/17 06:50 Sputum, Induced/Lukens Gram Stain - Final 12/13/17 06:50 Sputum, Induced/Lukens Respiratory Culture - Final Streptococcus pneumoniae Laboratory Results 12/19/17 11:21: POC Glucose 272 H 12/19/17 16:09: POC Glucose 266 H 12/19/17 23:17: POC Glucose 321 H 12/20/17 04:05: WBC 7.3, RBC 4.87, Hgb 13.6, Hct 44.7, MCV 91.8, MCH 27.9, MCHC 30.4 L, RDW 14.4, RDW Differential 47.3 H, Plt Count 275, MPV 10.6, Immature Gran % (Auto) 0.600, Neut % (Auto) 76.0 H, Lymph % (Auto) 10.5 L, [place] % (Auto) 12.8 H, Eos % (Auto) 0.0, Baso % (Auto) 0.1, Absolute Neuts (auto) 5.5, Absolute Lymphs (auto) 0.76 L, Total Counted Not Reportable 12/20/17 04:05: Sodium 146 H, Potassium 3.5, Chloride 95 L, Carbon Dioxide 43.0 H, Anion Gap 8, BUN 84 H, Creatinine 1.33 H, Estim Creat Clear Calc 57.86, Est GFR (MDRD) Af Amer 71, Est GFR (MDRD) Non-Af 58 L, BUN/Creatinine Ratio 63.2 H, Glucose 291 H, Calcium 9.8 12/20/17 04:05: PT 14.3, INR 1.1, APTT 20.1 L 12/20/17 05:29: POC Glucose 293 H Current Medications Acetaminophen (Tylenol Liquid) 650 mg GT Q6H PRN PRN PRN Reason: FEVER Last Admin: 12/19/17 17:48 Dose: 650 mg Acetazolamide (Diamox) 125 mg GT BID JUANY Last Admin: 12/19/17 21:24 Dose: 125 mg Albuterol Sulfate (Ventolin Aerosols) 2.5 mg INHALATION Q6HWA.RT JUANY Last Admin: 12/20/17 06:25 Dose: 2.5 mg Aspirin (Aspirin, Baby) 81 mg GT DAILY [facility] Last Admin: 12/20/17 05:53 Dose: 81 mg Atorvastatin Calcium (Lipitor) 40 mg GT QHS [facility] Last Admin: 12/19/17 21:25 Dose: 40 mg Chlorhexidine Gluconate () 15 ml PO BID [facility] Last Admin: 12/19/17 21:22 Dose: 15 ml Clopidogrel Bisulfate (Plavix) 75 mg GT DAILY [facility] Last Admin: 12/20/17 05:53 Dose: 75 mg Dextrose (D50w Syringe) 0 gm IV X1 PRN; Protocol PRN Reason: Hypoglycemia Famotidine (Pepcid) 20 mg GT BID [facility] Last Admin: 12/19/17 21:26 Dose: 20 mg Furosemide (Lasix) 40 mg IV Q8 [facility] Glucagon () 1 mg IM .X1 PRN PRN Reason: Hypoglycemia Heparin Sodium (Porcine) (Heparin Na) 5,000 unit SC Q8 [facility] Last Admin: 12/20/17 03:13 Dose: Not Given Sodium Chloride () 250 mls @ 15 mls/hr IV .[id number] PRN PRN Reason: SALINE FLUSH Sodium Chloride () 250 mls @ 15 mls/hr IV .[id number] PRN PRN Reason: SALINE FLUSH Last Admin: 12/16/17 21:29 Dose: 15 mls/hr Fentanyl () 100 mls @ 5 mls/hr IV .Q20H [facility] Last Admin: 12/19/17 21:40 Dose: 5 mls/hr Propofol (Diprivan) 1,000 mg in 100 mls @ 9.852 mls/hr CONT INF .[id number] [facility] Last Admin: 12/20/17 02:21 Dose: 9.852 mls/hr Enteral Nutritional Formula (Glucerna 1.5) 1,000 mls @ 15 mls/hr GT .Q48H [facility] Last Admin: 12/19/17 10:09 Dose: 15 mls/hr Sodium Chloride () 1,000 mls @ 0 mls/hr IV .Q0M [facility] Levofloxacin (Levaquin Iv) 750 mg in 150 mls @ 100 mls/hr IV Q24 [facility] Stop: 12/23/17 11:29 Last Admin: 12/19/17 10:05 Dose: 100 mls/hr Metronidazole (Flagyl) 500 mg in 100 mls @ 100 mls/hr IV Q8 [facility] Stop: 12/23/17 22:59 Last Admin: 12/20/17 05:53 Dose: 100 mls/hr Insulin Glargine (Lantus (Bkc)) 15 units SC BID JUANY Insulin Human Lispro (Humalog Kwikpen (Bkc)) 0 unit SQ Q6 [facility]; Protocol Last Admin: 12/20/17 05:26 Dose: Not Given Magnesium Hydroxide (Milk Of Magnesia) 30 ml PO DAILY PRN PRN PRN Reason: Constipation Methylprednisolone (Solu-Medrol) 40 mg IV Q6 [facility] Last Admin: 12/20/17 05:53 Dose: 40 mg Polyethylene Glycol (Miralax) 17 gm GT BID [facility] Last Admin: 12/19/17 20:29 Dose: Not Given Potassium Bicarb/Potassium Chloride (Potassium Chl 25 Meq Eff (For Liquid)) 25 meq GT BID [facility] Last Admin: 12/19/17 21:26 Dose: 25 meq Senna/Docusate Sodium (Senokot-S, Anne-Marie-Colace) 2 tablet GT BID [facility] Last Admin: 12/19/17 20:29 Dose: Not Given Sodium Chloride () 5 - 30 ml IV UD PRN PRN Reason: SALINE FLUSH Last Admin: 12/20/17 04:05 Dose: 10 ml Medical Necessity - Tobacco Use Smoking Status: Current every day smoker Assessment/Plan All Active Problems (Last Updated 11/10/17 @ 12:14 by Brennon Maloney, S[employer] C[employer]TER-C) Klebsiella pneumonia (Acute) Acute respiratory failure with hypoxia and hypercapnia (Acute) Pneumococcal pneumonia (Acute) Metabolic encephalopathy (Acute) Heart failure with reduced ejection fraction (Acute) Chest pain (Resolved) Respiratory failure, acute (Resolved) 1. Acute hypoxic and hypercapnic respiratory failure. multifactorial: PNA, CHF, aspiration pneumonitis, EMILIA, obesity hypoventilation CXR overall improved wean oxygen as tolerated CCM mgmt appreciated BDs and steroid trach and PEG if fails to progress 2. Pneumococcal and Klebsiella Pneumonia: on Levaquin through the 3. HFpEF EF 60% from echo 12/12 Lasix changed to IV boluses from gtt given GALILEA add low-dose ACEi 4. Fevers persistent since admission BCx on negative TTE on the negative UA, UCx negative other than sputum cultures, infectious work up has been negative schedule acetaminophen 5. GALILEA Cr 1.33, baseline 0.8 likely due to overdiuresis monitor avoid nephrotoxic agents 6. DM2 uncontrolled increase Lantus to 30 (from 15) likely will need to decrease when steroids are cut back 7. DVT proph: SQ heparin Code Visit Inpatient E&M: 20065 Subs Hosp L3
[2017-12-20] MEDS: fentaNYL drip 100 ML 5 MCG IV ×2 (08:42→19:29)
[2017-12-20] MEDS: Chlorhexidine 15 ML PO ×2 (08:43→21:16)
[2017-12-20] MEDS: AcetaZOLAMIDE 250 MG Tablet 125 MG GT ×2 (08:44→21:15)
[2017-12-20] MEDS: Famotidine 20 MG Tablet GT ×2 (08:44→21:15)
[2017-12-20] MEDS: levoFLOXacin IV 750 MG/150 ML BAG 100 MG IV (08:46)
--- NOTE | 2017-12-20 08:50 | PN_ITS ---
Patient Problems: Active and Suspected Problems (Last Updated 11/10/17 @ 12:14 by Brennon Maloney, THERAPIST SPEECH- C) Klebsiella pneumonia (Acute) Acute respiratory failure with hypoxia and hypercapnia (Acute) Pneumococcal pneumonia (Acute) Metabolic encephalopathy (Acute) Heart failure with reduced ejection fraction (Acute) Subjective: Oxygen able to be weaned. Persistent fevers. Vitals/I&O's: Vital Signs Temp Pulse Resp BP Pulse Ox 37.6 C H 70 14 124/84 H 90 12/20/17 07:00 12/20/17 07:00 12/20/17 07:00 12/20/17 07:00 12/20/17 07:00 Oxygen Flow Rate (L/min) 70 Oxygen Delivery Method Mechanical Ventilator Weight: 143.7 kg Body Mass Index (BMI) 55.5 Finger Stick Blood Glucose 239 Intake and Output for Last 24 Hours 12/18/17 12/19/17 12/20/17 23:59 23:59 23:59 Intake Total 3579 / 3579 3845.4 / 3845.4 208.4 / 208.4 Output Total 7950 / 7950 5000 / 5000 1200 / 1200 Balance -4371 / -4371 -1154.6 / -1154.6 -991.6 / -991.6 General: Alert, No apparent distress, - - Intubated. Follows simple commands. Non toxic. HEENT: Atraumatic, PERRLA, EOMI, Normocephalic Oral: - - ETT and OG in place Neck: No Nodes, Thyroid Normal Size and Texture Lungs: Diminished, - - coarse BS bilaterally. Cardiovascular: Regular rate, Regular Rhythm, Normal S1, Normal S2, No murmurs Abdomen: Soft, Non Tender, Non-Distended, Obese Extremities: No Calf Tenderness, Edema - minimal Skin: - - venous stasis dermatitis. Musculoskeletal: No Tenderness to Palpation of Joints or Extremities, No Muscle Wasting Neurological: - - moves all extremitis spontaneously. follows simple commands (squeezing hands) Psych/Mental Status: Normal Affect, Appropriate Microbiology Past 72 Hours 12/16/17 12:35 Sputum, Induced/Lukens Gram Stain - Final 12/16/17 12:35 Sputum, Induced/Lukens Respiratory Culture - Final Klebsiella oxytoca 12/12/17 08:20 Blood Culture (Wb) - Anticubital Right Blood Culture - Final No growth in 5 days. 12/12/17 07:30 Blood Culture (Wb) - Anticubital Left Blood Culture - Final No growth in 5 days. 12/13/17 06:50 Sputum, Induced/Lukens Gram Stain - Final 12/13/17 06:50 Sputum, Induced/Lukens Respiratory Culture - Final Streptococcus pneumoniae Laboratory Results 12/19/17 11:21: POC Glucose 272 H 12/19/17 16:09: POC Glucose 266 H 12/19/17 23:17: POC Glucose 321 H 12/20/17 04:05: WBC 7.3, RBC 4.87, Hgb 13.6, Hct 44.7, MCV 91.8, MCH 27.9, MCHC 30.4 L, RDW 14.4, RDW Differential 47.3 H, Plt Count 275, MPV 10.6, Immature Gran % (Auto) 0.600, Neut % (Auto) 76.0 H, Lymph % (Auto) 10.5 L, [place] % (Auto) 12.8 H, Eos % (Auto) 0.0, Baso % (Auto) 0.1, Absolute Neuts (auto) 5.5, Absolute Lymphs (auto) 0.76 L, Total Counted Not Reportable 12/20/17 04:05: Sodium 146 H, Potassium 3.5, Chloride 95 L, Carbon Dioxide 43.0 H, Anion Gap 8, BUN 84 H, Creatinine 1.33 H, Estim Creat Clear Calc 57.86, Est GFR (MDRD) Af Amer 71, Est GFR (MDRD) Non-Af 58 L, BUN/Creatinine Ratio 63.2 H, Glucose 291 H, Calcium 9.8 12/20/17 04:05: PT 14.3, INR 1.1, APTT 20.1 L 12/20/17 05:29: POC Glucose 293 H Current Medications Acetaminophen (Tylenol Liquid) 650 mg GT Q6H PRN PRN PRN Reason: FEVER Last Admin: 12/19/17 17:48 Dose: 650 mg Acetazolamide (Diamox) 125 mg GT BID JUANY Last Admin: 12/19/17 21:24 Dose: 125 mg Albuterol Sulfate (Ventolin Aerosols) 2.5 mg INHALATION Q6HWA.RT JUANY Last Admin: 12/20/17 06:25 Dose: 2.5 mg Aspirin (Aspirin, Baby) 81 mg GT DAILY [facility] Last Admin: 12/20/17 05:53 Dose: 81 mg Atorvastatin Calcium (Lipitor) 40 mg GT QHS [facility] Last Admin: 12/19/17 21:25 Dose: 40 mg Chlorhexidine Gluconate () 15 ml PO BID [facility] Last Admin: 12/19/17 21:22 Dose: 15 ml Clopidogrel Bisulfate (Plavix) 75 mg GT DAILY [facility] Last Admin: 12/20/17 05:53 Dose: 75 mg Dextrose (D50w Syringe) 0 gm IV X1 PRN; Protocol PRN Reason: Hypoglycemia Famotidine (Pepcid) 20 mg GT BID [facility] Last Admin: 12/19/17 21:26 Dose: 20 mg Furosemide (Lasix) 40 mg IV Q8 [facility] Glucagon () 1 mg IM .X1 PRN PRN Reason: Hypoglycemia Heparin Sodium (Porcine) (Heparin Na) 5,000 unit SC Q8 [facility] Last Admin: 12/20/17 03:13 Dose: Not Given Sodium Chloride () 250 mls @ 15 mls/hr IV .[id number] PRN PRN Reason: SALINE FLUSH Sodium Chloride () 250 mls @ 15 mls/hr IV .[id number] PRN PRN Reason: SALINE FLUSH Last Admin: 12/16/17 21:29 Dose: 15 mls/hr Fentanyl () 100 mls @ 5 mls/hr IV .Q20H [facility] Last Admin: 12/19/17 21:40 Dose: 5 mls/hr Propofol (Diprivan) 1,000 mg in 100 mls @ 9.852 mls/hr CONT INF .[id number] [facility] Last Admin: 12/20/17 02:21 Dose: 9.852 mls/hr Enteral Nutritional Formula (Glucerna 1.5) 1,000 mls @ 15 mls/hr GT .Q48H [facility] Last Admin: 12/19/17 10:09 Dose: 15 mls/hr Sodium Chloride () 1,000 mls @ 0 mls/hr IV .Q0M [facility] Levofloxacin (Levaquin Iv) 750 mg in 150 mls @ 100 mls/hr IV Q24 [facility] Stop: 12/23/17 11:29 Last Admin: 12/19/17 10:05 Dose: 100 mls/hr Metronidazole (Flagyl) 500 mg in 100 mls @ 100 mls/hr IV Q8 [facility] Stop: 12/23/17 22:59 Last Admin: 12/20/17 05:53 Dose: 100 mls/hr Insulin Glargine (Lantus (Bkc)) 15 units SC BID JUANY Insulin Human Lispro (Humalog Kwikpen (Bkc)) 0 unit SQ Q6 [facility]; Protocol Last Admin: 12/20/17 05:26 Dose: Not Given Magnesium Hydroxide (Milk Of Magnesia) 30 ml PO DAILY PRN PRN PRN Reason: Constipation Methylprednisolone (Solu-Medrol) 40 mg IV Q6 [facility] Last Admin: 12/20/17 05:53 Dose: 40 mg Polyethylene Glycol (Miralax) 17 gm GT BID [facility] Last Admin: 12/19/17 20:29 Dose: Not Given Potassium Bicarb/Potassium Chloride (Potassium Chl 25 Meq Eff (For Liquid)) 25 meq GT BID [facility] Last Admin: 12/19/17 21:26 Dose: 25 meq Senna/Docusate Sodium (Senokot-S, Anne-Marie-Colace) 2 tablet GT BID [facility] Last Admin: 12/19/17 20:29 Dose: Not Given Sodium Chloride () 5 - 30 ml IV UD PRN PRN Reason: SALINE FLUSH Last Admin: 12/20/17 04:05 Dose: 10 ml Medical Necessity - Tobacco Use Smoking Status: Current every day smoker Assessment/Plan All Active Problems (Last Updated 11/10/17 @ 12:14 by Brennon Maloney, THERAPIST SPEECH-C) Klebsiella pneumonia (Acute) Acute respiratory failure with hypoxia and hypercapnia (Acute) Pneumococcal pneumonia (Acute) Metabolic encephalopathy (Acute) Heart failure with reduced ejection fraction (Acute) Chest pain (Resolved) Respiratory failure, acute (Resolved) 1. Acute hypoxic and hypercapnic respiratory failure. * multifactorial: PNA, CHF, aspiration pneumonitis, EMILIA, obesity hypoventilation * CXR overall improved * wean oxygen as tolerated * CCM mgmt appreciated * BDs and steroid * trach and PEG if fails to progress 2. Pneumococcal and Klebsiella Pneumonia: * on Levaquin through the 3. HFpEF * EF 60% from echo 12/12 * Lasix changed to IV boluses from gtt given GALILEA * add low-dose ACEi 4. Fevers * persistent since admission * BCx on negative * TTE on the 5th negative * UA, UCx negative * other than sputum cultures, infectious work up has been negative * schedule acetaminophen 5. GALILEA * Cr 1.33, baseline 0.8 * likely due to overdiuresis * monitor * avoid nephrotoxic agents 6. DM2 * uncontrolled * increase Lantus to 30 (from 15) * likely will need to decrease when steroids are cut back 7. DVT proph: SQ heparin Code Visit Inpatient E&M: 71684 Subs Hosp L3
[2017-12-20] MEDS: Acetaminophen 650 MG/20 ML UDC GT ×3 (10:30→23:50)
--- NOTE | 2017-12-20 10:59 | CASEMGMT ---
Social Work SW attended interdisciplinary rounds. Pt continues to be on vent. SW will follow for d/c planning. MARIANELA Hall
[2017-12-20] MEDS: Lisinopril 5 MG Tablet GT (11:22)
[2017-12-20] MEDS: Insulin Lispro 100 UNIT/ML INSULN.PEN SQ ×3 (11:24→23:50)
[2017-12-20 11:31] LABS: Bedside Glucose 329 mg/dL (70-110)
[2017-12-20] MEDS: Heparin Injection (Vial) 5,000 UNIT/ML VIAL 5000 UNIT SC ×2 (13:33→21:14)
[2017-12-20] MEDS: Furosemide 40 MG/4 ML Vial IV (13:35)
[2017-12-20 17:10] LABS: Bedside Glucose 298 mg/dL (70-110)
[2017-12-20 19:35] LABS: Allen Test POS; Base Excess 17 mmol/L (-2 to +2); Bicarbonate 41.5 mmol/L (22-26); Blood Gas Specimen Type ART; FI02 50; Mode A-C; O2 Delivery Device Vent; PEEP 13; PO2 68 mmHG (75-100); RR 14; SITE R Radial; SO2 93 % (95-99); Total Carbon Dioxide 43 mmol/L; Vt 450; pCO2 60.6 mmHg (35-45); pH 7.44 (7.35-7.45)
[2017-12-20] MEDS: Atorvastatin Calcium 40 MG Tablet GT (21:15)
[2017-12-20 21:36] LABS: Bedside Glucose 331 mg/dL (70-110)
[2017-12-21] VITALS (40 sets, daily range): BP systolic 70–113; BP diastolic 36–60; PULSE 67–94; RESP 13–22; TEMP 36.7–37.7; O2SAT 88–98
[2017-12-21 00:05] LABS: Bedside Glucose 347 mg/dL (70-110)
[2017-12-21] MEDS: Propofol 10MG/Ml 1,000 MG/100 ML Bottle 9.852 MG CONT INF ×4 (02:54→23:15)
[2017-12-21 04:28] LABS: Absolute Lymphocyte Count 0.78 X10^3/ul (0.83-4.51); Hematocrit 43.8 % (40-54); Hemoglobin 12.7 g/dl (13.0-16.5); Lymphocyte # 0.78 X10^3/ul (4.0); Lymphocyte % 7.6 % (19-41); Mean Corpuscular Hgb 27.3 pg (27.0-32.0); Mean Platelet Vol. 10.8 fl (6.2-12.0); Monocyte# 0.41 X10^3/uL; Neutrophil # 8.96 X10^3/uL (2.7-7.7); Neutrophil % 87.9 % (47-70); Platelet Count 280 K/mm3 (150-450); RBC Distribution Width CV 14.9 % (11.6-14.6); RBC Distribution Width SD 49.4 fl (35.1-43.9); Red Blood Count 4.66 M/mm3 (4.6-6.2); White Blood Count 10.2 K/mm3 (4.4-11.0)
[2017-12-21 04:33] LABS: POSITIVE COUNT NO; POSITIVE DIFFERENTIAL NO; POSITIVE MORPHOLOGY NO
[2017-12-21 04:48] LABS: ALB/GLOB Ratio 0.7 RATIO (0.9-2.4); AST(SGOT) 16 U/L (15-37); Alanine Aminotransfer ALT/SGPT 35 U/L (16-61); Albumin, Serum 3.2 g/dL (3.2-5.0); Alkaline Phosphatase 65 U/L (45-117); Anion Gap 14 (5-15); BUN 114 mg/dL (7-18); BUN/Creat Ratio 45.4 RATIO (10-20); Calcium,Total 9.3 mg/dL (8.5-10.1); Chloride 97 mmol/L (98-107); Creatinine, Serum 2.51 mg/dL (0.70-1.30); EST Glomerular Filtration Rate 28 mL/min (>60); Est Glom Filt Rate - Afr Amer 34 mL/min (>60); Estimated Creatinine Clearance 30.66 ml/min; Globulin 4.5 g/dL (2.2-4.2); Glucose 352 mg/dL (74-106); Potassium 3.9 mmol/L (3.5-5.1); Protein, Total 7.7 g/dL (6.4-8.2); Sodium Level 146 mmol/L (136-145)
[2017-12-21] MEDS: 0.9% Normal Saline 1,000 ML 999 ML IV (05:02)
[2017-12-21] MEDS: Heparin Injection (Vial) 5,000 UNIT/ML VIAL 5000 UNIT SC (05:27)
[2017-12-21] MEDS: Insulin Lispro 100 UNIT/ML INSULN.PEN SQ ×4 (05:27→23:36)
[2017-12-21] MEDS: Acetaminophen 650 MG/20 ML UDC GT ×3 (05:27→17:43)
[2017-12-21 06:06] LABS: Bedside Glucose 326 mg/dL (70-110)
[2017-12-21] MEDS: fentaNYL drip 100 ML 5 MCG IV ×2 (06:14→17:43)
--- NOTE | 2017-12-21 06:52 | PCM.PN.INT ---
Subjective: Patient did okay overnight. Patient has had decreased urine output and hypotension, but is maintained mentation. Nursing also reports 2 separate episodes of patient had acute desaturation requiring increase in FiO2. However, patient is improved and is currently on 12 of PEEP and 60% FiO2. Patient is denying any pain at this time. Patient continues to tolerate tube feeds. Diarrhea is improving. General: Alert, Cooperative, No apparent distress, - - Morbidly obese. Follows directions. Appears older than stated age. HEENT: Atraumatic, PERRLA, EOMI, Normocephalic, - - No scleral icterus or injection noted. Oral: Moist Mucosa, No Gingival or Mucosal Lesions/ Ulcerations Neck: Supple, No JVD, No Nodes, Trachea Midline Lungs: No rhonchi, No wheeze, No rales, Diminished, - - Symmetric expansion. No dullness to percussion. Minimal tracheal secretions with suctioning. Cardiovascular: Regular rate, Regular Rhythm, Normal S1, Normal S2, No murmurs, No rub noted, No Gallop Abdomen: Bowel Sounds Present, Soft, Non Tender, Non-Distended, Obese Extremities: No cyanosis, No edema, Capillary Refill Less than 3 Seconds, Clubbing Skin: - - No significant change compared to previous. Musculoskeletal: No Tenderness to Palpation of Joints or Extremities, No Muscle Wasting Lymphatic: No Cervical, Supraclavicular, or Inguinal Adenopathy Neurological: Cranial nerves II-XII grossly intact, Neuro grossly intact, Motor Exam 5/5 strength throughout Psych/Mental Status: Normal Affect, Appropriate Vital Signs Temp Pulse Resp BP Pulse Ox 36.9 C 69 14 70/44 L 89 12/21/17 06:00 12/21/17 06:00 12/21/17 06:00 12/21/17 06:00 12/21/17 06:00 Oxygen Flow Rate (L/min) 70 Oxygen Delivery Method Mechanical Ventilator Weight: 143.6 kg Body Mass Index (BMI) 55.5 Finger Stick Blood Glucose 239 Intake and Output for Last 24 Hours 12/19/17 12/20/17 12/21/17 23:59 23:59 23:59 Intake Total 3845.4 / 3845.4 1113.4 / 1113.4 2462.7 / 2462.7 Output Total 5000 / 5000 2850 / 2850 225 / 225 Balance -1154.6 / -1154.6 -1736.6 / -1736.6 2237.7 / 2237.7 Labs (Last 48 Hours) 12/19/17 12/19/17 12/19/17 06:46 11:21 16:09 WBC RBC Hgb Hct MCV MCH MCHC RDW RDW Differential Plt Count MPV Immature Gran % (Auto) Neut % (Auto) Lymph % (Auto) [place] % (Auto) Eos % (Auto) Baso % (Auto) Absolute Neuts (auto) Absolute Lymphs (auto) Total Counted PT INR APTT Specimen Type Sample Site pH Bicarbonate Actual POC Total CO2 Base Excess O2 Saturation O2 % ABG pCO2 ABG pO2 [place]as Test Respiration Rate O2 Delivery Device Minute Volume Vent Mode Tidal Volume POC PEEP Blood Gas Notified Whom Sodium Potassium Chloride Carbon Dioxide Anion Gap BUN Creatinine Estim Creat Clear Calc Est GFR (MDRD) Af Amer Est GFR (MDRD) Non-Af BUN/Creatinine Ratio Glucose Calcium Total Bilirubin AST ALT Alkaline Phosphatase Total Protein Albumin Globulin Albumin/Globulin Ratio POC Glucose 249 H 272 H 266 H 12/19/17 12/20/17 12/20/17 23:17 04:05 04:05 WBC 7.3 RBC 4.87 Hgb 13.6 Hct 44.7 MCV 91.8 MCH 27.9 MCHC 30.4 L RDW 14.4 RDW Differential 47.3 H Plt Count 275 MPV 10.6 Immature Gran % (Auto) 0.600 Neut % (Auto) 76.0 H Lymph % (Auto) 10.5 L [place] % (Auto) 12.8 H Eos % (Auto) 0.0 Baso % (Auto) 0.1 Absolute Neuts (auto) 5.5 Absolute Lymphs (auto) 0.76 L Total Counted Not Reportable PT INR APTT Specimen Type Sample Site pH Bicarbonate Actual POC Total CO2 Base Excess O2 Saturation O2 % ABG pCO2 ABG pO2 [place]as Test Respiration Rate O2 Delivery Device Minute Volume Vent Mode Tidal Volume POC PEEP Blood Gas Notified Whom Sodium 146 H Potassium 3.5 Chloride 95 L Carbon Dioxide 43.0 H Anion Gap 8 BUN 84 H Creatinine 1.33 H Estim Creat Clear Calc 57.86 Est GFR (MDRD) Af Amer 71 Est GFR (MDRD) Non-Af 58 L BUN/Creatinine Ratio 63.2 H Glucose 291 H Calcium 9.8 Total Bilirubin AST ALT Alkaline Phosphatase Total Protein Albumin Globulin Albumin/Globulin Ratio POC Glucose 321 H 12/20/17 12/20/17 12/20/17 04:05 05:29 11:24 WBC RBC Hgb Hct MCV MCH MCHC RDW RDW Differential Plt Count MPV Immature Gran % (Auto) Neut % (Auto) Lymph % (Auto) [place] % (Auto) Eos % (Auto) Baso % (Auto) Absolute Neuts (auto) Absolute Lymphs (auto) Total Counted PT 14.3 INR 1.1 APTT 20.1 L Specimen Type Sample Site pH Bicarbonate Actual POC Total CO2 Base Excess O2 Saturation O2 % ABG pCO2 ABG pO2 [place]as Test Respiration Rate O2 Delivery Device Minute Volume Vent Mode Tidal Volume POC PEEP Blood Gas Notified Whom Sodium Potassium Chloride Carbon Dioxide Anion Gap BUN Creatinine Estim Creat Clear Calc Est GFR (MDRD) Af Amer Est GFR (MDRD) Non-Af BUN/Creatinine Ratio Glucose Calcium Total Bilirubin AST ALT Alkaline Phosphatase Total Protein Albumin Globulin Albumin/Globulin Ratio POC Glucose 293 H 329 H 12/20/17 12/20/17 12/20/17 17:04 19:31 21:19 WBC RBC Hgb Hct MCV MCH MCHC RDW RDW Differential Plt Count MPV Immature Gran % (Auto) Neut % (Auto) Lymph % (Auto) [place] % (Auto) Eos % (Auto) Baso % (Auto) Absolute Neuts (auto) Absolute Lymphs (auto) Total Counted PT INR APTT Specimen Type ART Sample Site R Radial pH 7.44 Bicarbonate Actual 41.5 H POC Total CO2 43 Base Excess 17 H O2 Saturation 93 L O2 % 50 ABG pCO2 60.6 H ABG pO2 68 L [place] Test POS Respiration Rate 14 O2 Delivery Device Vent Minute Volume 6.00 Vent Mode A-C Tidal Volume 450 POC PEEP 13 Blood Gas Notified Whom ICU Sodium Potassium Chloride Carbon Dioxide Anion Gap BUN Creatinine Estim Creat Clear Calc Est GFR (MDRD) Af Amer Est GFR (MDRD) Non-Af BUN/Creatinine Ratio Glucose Calcium Total Bilirubin AST ALT Alkaline Phosphatase Total Protein Albumin Globulin Albumin/Globulin Ratio POC Glucose 298 H 331 H 12/20/17 12/21/17 12/21/17 23:47 04:15 04:15 WBC 10.2 RBC 4.66 Hgb 12.7 L Hct 43.8 MCV 94.0 MCH 27.3 MCHC 29.0 L RDW 14.9 H RDW Differential 49.4 H Plt Count 280 MPV 10.8 Immature Gran % (Auto) 0.500 Neut % (Auto) 87.9 H Lymph % (Auto) 7.6 L [place] % (Auto) 4.0 Eos % (Auto) 0.0 Baso % (Auto) 0.0 Absolute Neuts (auto) 9.0 H Absolute Lymphs (auto) 0.78 L Total Counted Not Reportable PT INR APTT Specimen Type Sample Site pH Bicarbonate Actual POC Total CO2 Base Excess O2 Saturation O2 % ABG pCO2 ABG pO2 Salas Test Respiration Rate O2 Delivery Device Minute Volume Vent Mode Tidal Volume POC PEEP Blood Gas Notified Whom Sodium 146 H Potassium 3.9 Chloride 97 L Carbon Dioxide 35.0 H Anion Gap 14 BUN 114 H* Creatinine 2.51 H Estim Creat Clear Calc 30.66 Est GFR (MDRD) Af Amer 34 L Est GFR (MDRD) Non-Af 28 L BUN/Creatinine Ratio 45.4 H Glucose 352 H Calcium 9.3 Total Bilirubin 0.40 AST 16 ALT 35 Alkaline Phosphatase 65 Total Protein 7.7 Albumin 3.2 Globulin 4.5 H Albumin/Globulin Ratio 0.7 L POC Glucose 347 H 12/21/17 12/21/17 05:26 06:30 WBC RBC Hgb Hct MCV MCH MCHC RDW RDW Differential Plt Count MPV Immature Gran % (Auto) Neut % (Auto) Lymph % (Auto) [place] % (Auto) Eos % (Auto) Baso % (Auto) Absolute Neuts (auto) Absolute Lymphs (auto) Total Counted PT Pending INR Pending APTT Pending Specimen Type Sample Site pH Bicarbonate Actual POC Total CO2 Base Excess O2 Saturation O2 % ABG pCO2 ABG pO2 Salas Test Respiration Rate O2 Delivery Device Minute Volume Vent Mode Tidal Volume POC PEEP Blood Gas Notified Whom Sodium Potassium Chloride Carbon Dioxide Anion Gap BUN Creatinine Estim Creat Clear Calc Est GFR (MDRD) Af Amer Est GFR (MDRD) Non-Af BUN/Creatinine Ratio Glucose Calcium Total Bilirubin AST ALT Alkaline Phosphatase Total Protein Albumin Globulin Albumin/Globulin Ratio POC Glucose 326 H Microbiology 12/20/17 05:00 Sputum, Induced/Lukens Gram Stain - Final Clinical Impression(s) from Imaging Studies Chest X-Ray 12/20/17 06:05 IMPRESSION: Stable position of the endotracheal tube and enterogastric tube. Progressive left lower lobe atelectasis and/or infiltrate. Electronically Signed: Akhil Izquierdo MD at 9:15 EST Tel [phone], Service support , Medical Necessity - Tobacco Use Smoking Status: Current every day smoker Assessment/Plan All Active Problems (Last Updated 12/20/17 @ 08:34 by Juan Manuel Subramanian DO) Klebsiella pneumonia (Acute) Acute respiratory failure with hypoxia and hypercapnia (Acute) Pneumococcal pneumonia (Acute) Metabolic encephalopathy (Acute) Heart failure with reduced ejection fraction (Acute) Chest pain (Resolved) Respiratory failure, acute (Resolved) RECOMMENDATIONS: 1. Discontinue diuresis 2. Continue IV Solu-Medrol 40 mg every 8 hours and bronchodilators. 3. Wean FiO2 and PEEP as tolerated. 4. Continue current antibiotics to complete previous course pending sputum culture 5. Continue tube feeds. 6. Replace some fluid 7. Continue current sedation regimen with a goal to maintain a RASS of -1 to 1. 8. Initiate empiric heparin drip and continue Protonix. IMPRESSIONS: 1. Acute on chronic combined respiratory failure Attempts to diurese patient to help with oxygenation have resulted in acute kidney injury. All diuretics will be held. Patient will be given back some fluids. Patient did have some atelectasis of left lower lobe yesterday and improved with movement. We will continue to focus on increased mobility to help with AA gradient. Patient may require tracheostomy early next week if not improving. Patient has been relatively sedentary for over a week. Patient has been on prophylactic heparin, but will initiate patient on empiric heparin drip for now. No CT scan given patient's acute kidney injury. VQ scan is likely not an option given patient's significant desaturation episodes intermittently. 2. Metabolic encephalopathy Improved. Likely secondary to acute on chronic CO2 retention. Anticipate improvement with correction of the patient's underlying metabolic derangements. Minimize sedation as tolerated. 3. Decompensated heart failure/history of ischemic cardiomyopathy Patient is likely over diuresed at this time. Some fluid will be given back. Patient continues to receive tube feeds. Will attempt to keep patient at the current weight. 4. Diabetes mellitus Continue Accu-Cheks and sliding scale insulin coverage. The patient has been tolerant of tube feeds to date. Blood sugars are trending up into the 300s. Will increase basal insulin. 5. Obstructive sleep apnea The patient has a history of outpatient noncompliance with the use of nocturnal Pap therapy. He only utilizes supplemental oxygen on a nightly basis. 6. Ongoing tobacco dependence/super morbid obesity/history of medical noncompliance/hypertension Complicates care, management, recovery and prognosis. Nicotine replacement therapy can be utilized while admitted to the hospital. 7. Acute kidney injury Likely secondary to overdiuresis. All diuretics have been held for now. Will attempt to keep weight the same. JONE inhibitor will be discontinued. Continue to follow renal function on a daily basis. TIME: 45 minutes of critical care time, independent of procedures, was spent addressing the patient's acute on chronic combined respiratory failure, metabolic encephalopathy, decompensated heart failure, obstructive sleep apnea, review of all data and collaboration with the care team. (5:45 AM to 7 AM) Code Visit 9xxxx: [id number] Critical care first hour
[2017-12-21 06:53] LABS: International Normalized Ratio 1.1; Partial Thromboplast Time 24.8 Seconds (24.1-36.2); Prothrombin Time (Protime)PT. 14.4 SECONDS (11.7-14.9)
[2017-12-21] MEDS: Albuterol 2.5 MG/3 ML VIAL.NEB. INHALATION ×3 (06:54→19:15)
--- NOTE | 2017-12-21 08:34 | PCM.PN.HOSP ---
Patient Problems: Active and Suspected Problems (Last Updated 12/20/17 @ 08:34 by Juan Manuel Subramanian DO) GALILEA (acute kidney injury) (Acute) Klebsiella pneumonia (Acute) Acute respiratory failure with hypoxia and hypercapnia (Acute) Pneumococcal pneumonia (Acute) Heart failure with reduced ejection fraction (Acute) Subjective: No fevers this AM. FiO2 increased to 100, but then dropped back to 60%. Vitals/I&O's: Vital Signs Temp Pulse Resp BP Pulse Ox 36.7 C 67 16 84/43 L 92 12/21/17 07:00 12/21/17 08:00 12/21/17 07:00 12/21/17 07:00 12/21/17 07:00 Oxygen Flow Rate (L/min) 70 Oxygen Delivery Method Mechanical Ventilator Weight: 143.6 kg Body Mass Index (BMI) 55.5 Finger Stick Blood Glucose 239 Intake and Output for Last 24 Hours 12/19/17 12/20/17 12/21/17 23:59 23:59 23:59 Intake Total 3845.4 / 3845.4 1113.4 / 1113.4 2462.7 / 2462.7 Output Total 5000 / 5000 2850 / 2850 225 / 225 Balance -1154.6 / -1154.6 -1736.6 / -1736.6 2237.7 / 2237.7 General: Alert, - - on vent. afebrile. HEENT: Atraumatic, Normocephalic Oral: - - ETT and OG tube in place. Neck: No Nodes, Thyroid Normal Size and Texture Lungs: Diminished, - Cardiovascular: Regular rate, Regular Rhythm, Normal S1, Normal S2, No murmurs Abdomen: Bowel Sounds Present, Soft, Non Tender, Non-Distended, Obese Extremities: No edema, No Calf Tenderness Skin: No rashes, No breakdown Musculoskeletal: No Tenderness to Palpation of Joints or Extremities, No Muscle Wasting Neurological: - - no clonus. diminished patellar reflexes. Psych/Mental Status: Appropriate Microbiology Past 72 Hours 12/20/17 05:00 Sputum, Induced/Lukens Gram Stain - Final 12/16/17 12:35 Sputum, Induced/Lukens Gram Stain - Final 12/16/17 12:35 Sputum, Induced/Lukens Respiratory Culture - Final Klebsiella oxytoca Laboratory Results 12/20/17 11:24: POC Glucose 329 H 12/20/17 17:04: POC Glucose 298 H 12/20/17 19:31: Specimen Type ART, Sample Site R Radial, pH 7.44, Bicarbonate Actual 41.5 H, POC Total CO2 43, Base Excess 17 H, O2 Saturation 93 L, O2 % 50, ABG pCO2 60.6 H, ABG pO2 68 L, Salas Test POS, Respiration Rate 14, O2 Delivery Device Vent, Minute Volume 6.00, Vent Mode A-C, Tidal Volume 450, POC PEEP 13, Blood Gas Notified Whom ICU 12/20/17 21:19: POC Glucose 331 H 12/20/17 23:47: POC Glucose 347 H 12/21/17 04:15: WBC 10.2, RBC 4.66, Hgb 12.7 L, Hct 43.8, MCV 94.0, MCH 27.3, MCHC 29.0 L, RDW 14.9 H, RDW Differential 49.4 H, Plt Count 280, MPV 10.8, Immature Gran % (Auto) 0.500, Neut % (Auto) 87.9 H, Lymph % (Auto) 7.6 L, Rankin % (Auto) 4.0, Eos % (Auto) 0.0, Baso % (Auto) 0.0, Absolute Neuts (auto) 9.0 H, Absolute Lymphs (auto) 0.78 L, Total Counted Not Reportable 12/21/17 04:15: Sodium 146 H, Potassium 3.9, Chloride 97 L, Carbon Dioxide 35.0 H, Anion Gap 14, BUN 114 H*, Creatinine 2.51 H, Estim Creat Clear Calc 30.66, Est GFR (MDRD) Af Amer 34 L, Est GFR (MDRD) Non-Af 28 L, BUN/Creatinine Ratio 45.4 H, Glucose 352 H, Calcium 9.3, Total Bilirubin 0.40, AST 16, ALT 35, Alkaline Phosphatase 65, Total Protein 7.7, Albumin 3.2, Globulin 4.5 H, Albumin/Globulin Ratio 0.7 L 12/21/17 05:26: POC Glucose 326 H 12/21/17 06:30: PT 14.4, INR 1.1, APTT 24.8 Current Medications Acetaminophen (Tylenol Liquid) 650 mg GT Q6 [facility] Last Admin: 12/21/17 05:27 Dose: 650 mg Albuterol Sulfate (Ventolin Aerosols) 2.5 mg INHALATION Q6HWA.RT [facility] Last Admin: 12/21/17 06:54 Dose: 2.5 mg Aspirin (Aspirin, Baby) 81 mg GT DAILY [facility] Last Admin: 12/20/17 05:53 Dose: 81 mg Atorvastatin Calcium (Lipitor) 40 mg GT QHS [facility] Last Admin: 12/20/17 21:15 Dose: 40 mg Chlorhexidine Gluconate () 15 ml PO BID [facility] Last Admin: 12/20/17 21:16 Dose: 15 ml Clopidogrel Bisulfate (Plavix) 75 mg GT DAILY [facility] Last Admin: 12/20/17 05:53 Dose: 75 mg Dextrose (D50w Syringe) 0 gm IV X1 PRN; Protocol PRN Reason: Hypoglycemia Famotidine (Pepcid) 20 mg GT BID [facility] Last Admin: 12/20/17 21:15 Dose: 20 mg Glucagon () 1 mg IM .X1 PRN PRN Reason: Hypoglycemia Heparin Sodium (Porcine) (Heparin Na) 5,000 unit SC Q8 [facility] Last Admin: 12/21/17 05:27 Dose: 5,000 unit Sodium Chloride () 250 mls @ 15 mls/hr IV .[id number] PRN PRN Reason: SALINE FLUSH Sodium Chloride () 250 mls @ 15 mls/hr IV .[id number] PRN PRN Reason: SALINE FLUSH Last Admin: 12/16/17 21:29 Dose: 15 mls/hr Fentanyl () 100 mls @ 5 mls/hr IV .Q20H [facility] Last Admin: 12/21/17 06:14 Dose: 5 mls/hr Enteral Nutritional Formula (Glucerna 1.5) 1,000 mls @ 15 mls/hr GT .Q48H [facility] Last Admin: 12/20/17 14:21 Dose: 15 mls/hr Sodium Chloride () 1,000 mls @ 0 mls/hr IV .Q0M [facility] Levofloxacin (Levaquin Iv) 750 mg in 150 mls @ 100 mls/hr IV Q24 [facility] Stop: 12/23/17 11:29 Last Admin: 12/20/17 08:46 Dose: 100 mls/hr Metronidazole (Flagyl) 500 mg in 100 mls @ 100 mls/hr IV Q8 [facility] Stop: 12/23/17 22:59 Last Admin: 12/21/17 05:27 Dose: 100 mls/hr Propofol (Diprivan) 1,000 mg in 100 mls @ 9.852 mls/hr CONT INF .[id number] [facility] Last Admin: 12/21/17 05:37 Dose: Not Given Insulin Glargine (Lantus (Bkc)) 25 units SC BID [facility] Insulin Human Lispro (Humalog Kwikpen (Bk)) 0 unit SQ Q6 [facility]; Protocol Last Admin: 12/21/17 05:27 Dose: 5 units Magnesium Hydroxide (Milk Of Magnesia) 30 ml PO DAILY PRN PRN PRN Reason: Constipation Methylprednisolone (Solu-Medrol) 40 mg IV Q8 [facility] Polyethylene Glycol (Miralax) 17 gm GT BID [facility] Last Admin: 12/20/17 21:02 Dose: Not Given Potassium Bicarb/Potassium Chloride (Potassium Chl 25 Meq Eff (For Liquid)) 25 meq GT BID [facility] Last Admin: 12/20/17 21:16 Dose: 25 meq Senna/Docusate Sodium (Senokot-S, Anne-Marie-Colace) 2 tablet GT BID [facility] Last Admin: 12/20/17 21:02 Dose: Not Given Sodium Chloride () 5 - 30 ml IV UD PRN PRN Reason: SALINE FLUSH Last Admin: 12/20/17 04:05 Dose: 10 ml Medical Necessity - Tobacco Use Smoking Status: Current every day smoker Assessment/Plan All Active Problems (Last Updated 12/20/17 @ 08:34 by Juan Manuel Subramanian DO) GALILEA (acute kidney injury) (Acute) Klebsiella pneumonia (Acute) Acute respiratory failure with hypoxia and hypercapnia (Acute) Pneumococcal pneumonia (Acute) Metabolic encephalopathy (Acute) Heart failure with reduced ejection fraction (Acute) Chest pain (Resolved) Respiratory failure, acute (Resolved) 1. Acute hypoxic and hypercapnic respiratory failure. still requiring 60% FiO2 multifactorial: PNA, CHF, aspiration pneumonitis, EMILIA, obesity hypoventilation CXR overall improved wean oxygen as tolerated CCM mgmt appreciated BDs and steroid trach and PEG if fails to progress 2. Pneumococcal and Klebsiella Pneumonia: on Levaquin through the 3. HFpEF EF 60% from echo 12/12 lasix stopped due to overdiuresis 4. Fevers improved as of today, had been persistent since admission BCx on 5th negative TTE on the 5th negative UA, UCx negative other than sputum cultures, infectious work up has been negative schedule acetaminophen 5. GALILEA worse: Cr 2.5, baseline 0.8 likely due to overdiuresis monitor lasix and lisinopril stopped 6. DM2 uncontrolled increase Lantus to 25 BID consider insulin gtt to keep MBS < 200 in a critically ill patient 7. DVT proph: SQ heparin Code Visit Inpatient E&M: 76544 Subs Hosp L3
--- NOTE | 2017-12-21 08:39 | PN_ITS ---
Patient Problems: Active and Suspected Problems (Last Updated 12/20/17 @ 08:34 by Juan Manuel Subramanian DO) GALILEA (acute kidney injury) (Acute) Klebsiella pneumonia (Acute) Acute respiratory failure with hypoxia and hypercapnia (Acute) Pneumococcal pneumonia (Acute) Heart failure with reduced ejection fraction (Acute) Subjective: No fevers this AM. FiO2 increased to 100, but then dropped back to 60%. Vitals/I&O's: Vital Signs Temp Pulse Resp BP Pulse Ox 36.7 C 67 16 84/43 L 92 12/21/17 07:00 12/21/17 08:00 12/21/17 07:00 12/21/17 07:00 12/21/17 07:00 Oxygen Flow Rate (L/min) 70 Oxygen Delivery Method Mechanical Ventilator Weight: 143.6 kg Body Mass Index (BMI) 55.5 Finger Stick Blood Glucose 239 Intake and Output for Last 24 Hours 12/19/17 12/20/17 12/21/17 23:59 23:59 23:59 Intake Total 3845.4 / 3845.4 1113.4 / 1113.4 2462.7 / 2462.7 Output Total 5000 / 5000 2850 / 2850 225 / 225 Balance -1154.6 / -1154.6 -1736.6 / -1736.6 2237.7 / 2237.7 General: Alert, - - on vent. afebrile. HEENT: Atraumatic, Normocephalic Oral: - - ETT and OG tube in place. Neck: No Nodes, Thyroid Normal Size and Texture Lungs: Diminished, - Cardiovascular: Regular rate, Regular Rhythm, Normal S1, Normal S2, No murmurs Abdomen: Bowel Sounds Present, Soft, Non Tender, Non-Distended, Obese Extremities: No edema, No Calf Tenderness Skin: No rashes, No breakdown Musculoskeletal: No Tenderness to Palpation of Joints or Extremities, No Muscle Wasting Neurological: - - no clonus. diminished patellar reflexes. Psych/Mental Status: Appropriate Microbiology Past 72 Hours 12/20/17 05:00 Sputum, Induced/Lukens Gram Stain - Final 12/16/17 12:35 Sputum, Induced/Lukens Gram Stain - Final 12/16/17 12:35 Sputum, Induced/Lukens Respiratory Culture - Final Klebsiella oxytoca Laboratory Results 12/20/17 11:24: POC Glucose 329 H 12/20/17 17:04: POC Glucose 298 H 12/20/17 19:31: Specimen Type ART, Sample Site R Radial, pH 7.44, Bicarbonate Actual 41.5 H, POC Total CO2 43, Base Excess 17 H, O2 Saturation 93 L, O2 % 50, ABG pCO2 60.6 H, ABG pO2 68 L, Salas Test POS, Respiration Rate 14, O2 Delivery Device Vent, Minute Volume 6.00, Vent Mode A-C, Tidal Volume 450, POC PEEP 13, Blood Gas Notified Whom ICU 12/20/17 21:19: POC Glucose 331 H 12/20/17 23:47: POC Glucose 347 H 12/21/17 04:15: WBC 10.2, RBC 4.66, Hgb 12.7 L, Hct 43.8, MCV 94.0, MCH 27.3, MCHC 29.0 L, RDW 14.9 H, RDW Differential 49.4 H, Plt Count 280, MPV 10.8, Immature Gran % (Auto) 0.500, Neut % (Auto) 87.9 H, Lymph % (Auto) 7.6 L, [place] % (Auto) 4.0, Eos % (Auto) 0.0, Baso % (Auto) 0.0, Absolute Neuts (auto) 9.0 H, Absolute Lymphs (auto) 0.78 L, Total Counted Not Reportable 12/21/17 04:15: Sodium 146 H, Potassium 3.9, Chloride 97 L, Carbon Dioxide 35.0 H, Anion Gap 14, BUN 114 H*, Creatinine 2.51 H, Estim Creat Clear Calc 30.66, Est GFR (MDRD) Af Amer 34 L, Est GFR (MDRD) Non-Af 28 L, BUN/Creatinine Ratio 45.4 H, Glucose 352 H, Calcium 9.3, Total Bilirubin 0.40, AST 16, ALT 35, Alkaline Phosphatase 65, Total Protein 7.7, Albumin 3.2, Globulin 4.5 H, Albumin/Globulin Ratio 0.7 L 12/21/17 05:26: POC Glucose 326 H 12/21/17 06:30: PT 14.4, INR 1.1, APTT 24.8 Current Medications Acetaminophen (Tylenol Liquid) 650 mg GT Q6 [facility] Last Admin: 12/21/17 05:27 Dose: 650 mg Albuterol Sulfate (Ventolin Aerosols) 2.5 mg INHALATION Q6HWA.RT [facility] Last Admin: 12/21/17 06:54 Dose: 2.5 mg Aspirin (Aspirin, Baby) 81 mg GT DAILY [facility] Last Admin: 12/20/17 05:53 Dose: 81 mg Atorvastatin Calcium (Lipitor) 40 mg GT QHS [facility] Last Admin: 12/20/17 21:15 Dose: 40 mg Chlorhexidine Gluconate () 15 ml PO BID [facility] Last Admin: 12/20/17 21:16 Dose: 15 ml Clopidogrel Bisulfate (Plavix) 75 mg GT DAILY [facility] Last Admin: 12/20/17 05:53 Dose: 75 mg Dextrose (D50w Syringe) 0 gm IV X1 PRN; Protocol PRN Reason: Hypoglycemia Famotidine (Pepcid) 20 mg GT BID [facility] Last Admin: 12/20/17 21:15 Dose: 20 mg Glucagon () 1 mg IM .X1 PRN PRN Reason: Hypoglycemia Heparin Sodium (Porcine) (Heparin Na) 5,000 unit SC Q8 [facility] Last Admin: 12/21/17 05:27 Dose: 5,000 unit Sodium Chloride () 250 mls @ 15 mls/hr IV .[id number] PRN PRN Reason: SALINE FLUSH Sodium Chloride () 250 mls @ 15 mls/hr IV .[id number] PRN PRN Reason: SALINE FLUSH Last Admin: 12/16/17 21:29 Dose: 15 mls/hr Fentanyl () 100 mls @ 5 mls/hr IV .Q20H [facility] Last Admin: 12/21/17 06:14 Dose: 5 mls/hr Enteral Nutritional Formula (Glucerna 1.5) 1,000 mls @ 15 mls/hr GT .Q48H [facility] Last Admin: 12/20/17 14:21 Dose: 15 mls/hr Sodium Chloride () 1,000 mls @ 0 mls/hr IV .Q0M [facility] Levofloxacin (Levaquin Iv) 750 mg in 150 mls @ 100 mls/hr IV Q24 [facility] Stop: 12/23/17 11:29 Last Admin: 12/20/17 08:46 Dose: 100 mls/hr Metronidazole (Flagyl) 500 mg in 100 mls @ 100 mls/hr IV Q8 [facility] Stop: 12/23/17 22:59 Last Admin: 12/21/17 05:27 Dose: 100 mls/hr Propofol (Diprivan) 1,000 mg in 100 mls @ 9.852 mls/hr CONT INF .[id number] [facility] Last Admin: 12/21/17 05:37 Dose: Not Given Insulin Glargine (Lantus (Bk)) 25 units SC BID [facility] Insulin Human Lispro (Humalog Kwikpen (Bk)) 0 unit SQ Q6 [facility]; Protocol Last Admin: 12/21/17 05:27 Dose: 5 units Magnesium Hydroxide (Milk Of Magnesia) 30 ml PO DAILY PRN PRN PRN Reason: Constipation Methylprednisolone (Solu-Medrol) 40 mg IV Q8 [facility] Polyethylene Glycol (Miralax) 17 gm GT BID [facility] Last Admin: 12/20/17 21:02 Dose: Not Given Potassium Bicarb/Potassium Chloride (Potassium Chl 25 Meq Eff (For Liquid)) 25 meq GT BID [facility] Last Admin: 12/20/17 21:16 Dose: 25 meq Senna/Docusate Sodium (Senokot-S, Anne-Marie-Colace) 2 tablet GT BID [facility] Last Admin: 12/20/17 21:02 Dose: Not Given Sodium Chloride () 5 - 30 ml IV UD PRN PRN Reason: SALINE FLUSH Last Admin: 12/20/17 04:05 Dose: 10 ml Medical Necessity - Tobacco Use Smoking Status: Current every day smoker Assessment/Plan All Active Problems (Last Updated 12/20/17 @ 08:34 by Juan Manuel Subramanian DO) GALILEA (acute kidney injury) (Acute) Klebsiella pneumonia (Acute) Acute respiratory failure with hypoxia and hypercapnia (Acute) Pneumococcal pneumonia (Acute) Metabolic encephalopathy (Acute) Heart failure with reduced ejection fraction (Acute) Chest pain (Resolved) Respiratory failure, acute (Resolved) 1. Acute hypoxic and hypercapnic respiratory failure. * still requiring 60% FiO2 * multifactorial: PNA, CHF, aspiration pneumonitis, EMILIA, obesity hypoventilation * CXR overall improved * wean oxygen as tolerated * CCM mgmt appreciated * BDs and steroid * trach and PEG if fails to progress 2. Pneumococcal and Klebsiella Pneumonia: * on Levaquin through the 3. HFpEF * EF 60% from echo 12/12 * lasix stopped due to overdiuresis 4. Fevers * improved as of today, had been persistent since admission * BCx on 5th negative * TTE on the 5th negative * UA, UCx negative * other than sputum cultures, infectious work up has been negative * schedule acetaminophen 5. GALILEA * worse: Cr 2.5, baseline 0.8 * likely due to overdiuresis * monitor * lasix and lisinopril stopped 6. DM2 * uncontrolled * increase Lantus to 25 BID * consider insulin gtt to keep MBS < 200 in a critically ill patient 7. DVT proph: SQ heparin Code Visit Inpatient E&M: 11865 Subs Hosp L3
--- NOTE | 2017-12-21 08:41 | NURSING ---
0712 Dr. Subramanian at bedside observes patient still intubated and restrained due to pulling at tubes.
[2017-12-21] MEDS: 0.9% NaCl Peripheral Flush Adult/Peds IV ×3 (10:23→21:46)
[2017-12-21] MEDS: Chlorhexidine 15 ML PO ×2 (10:23→21:50)
[2017-12-21] MEDS: Senna/Docusate Sodium 1 Tablet 2 TABLET GT (10:24)
[2017-12-21] MEDS: Famotidine 20 MG Tablet GT (10:25)
[2017-12-21] MEDS: Clopidogrel Bisulfate 75 MG Tablet GT (10:25)
[2017-12-21] MEDS: Aspirin 81 MG TAB.CHEW GT (10:27)
[2017-12-21] MEDS: levoFLOXacin IV 750 MG/150 ML BAG 100 MG IV (10:32)
[2017-12-21] MEDS: HEPARIN/D5w 25,000 UNITS 25,000 UNITS/250 ML IV.SOLN. 18 UNITS IV (10:35)
[2017-12-21 11:35] LABS: Bedside Glucose 351 mg/dL (70-110)
--- NOTE | 2017-12-21 11:50 | CASEMGMT ---
Pt remains on the ventilator today. SW will continue to follow for discharge planning when appropriate. BUDDY Cowart, [employer] MANIFEST CLERK
--- NOTE | 2017-12-21 14:25 | RAD_ITS ---
STUDY: X-RAY CHEST REASON FOR EXAM: Male, 57 years old. Endotracheal tube placement. TECHNIQUE: Single AP portable semierect view of the chest. COMPARISON: Portable AP upright chest x-ray December 20, 2017. FINDINGS: Tip of the endotracheal tube is at the thoracic inlet, 5.5 cm above the byron. There is stable platelike atelectasis in the left lung base. Mild subsegmental crowding in the right base and right suprahilar region. Evolving infection not excluded. There is no demonstrated pleural abnormality. There is a little borderline to mild cardiac enlargement. Normal mediastinum and marta. Normal visualized pulmonary arteries. Normal visualized aortic arch and descending thoracic aorta. There are stable degenerative changes of the visualized lower thoracic spine. Normal visualized ribs, clavicles, and shoulders. There is no demonstrated abnormality of the visualized soft tissue structures of the upper abdomen. RAD/Chest 1 View (Portable) IMPRESSION: 1. Endotracheal tube tip is 5.5 cm above the byron. 2. Suboptimal ventilatory effort with stable platelike atelectasis at the left base and mild atelectasis on the right, as noted. Electronically Signed: Brayan Pretty MD at 15:36 EST , Service support ,
--- NOTE | 2017-12-21 15:00 | RAD_ITS ---
STUDY: X-RAY CHEST REASON FOR EXAM: Male, 57 years old. Oral gastric tube placement. TECHNIQUE: Single AP portable view of the chest. COMPARISON: Comparison is made with prior examination done earlier today. FINDINGS: An endotracheal tube is in situ. The tip is at 3.8 cm proximal to the byron. An orogastric tube is seen. The tip appears to be in the distal esophagus. The remainder of examination is unchanged. RAD/Chest 1 View (Portable) IMPRESSION: Limited examination. The tip of the orogastric tube appears to be in the distal portion of the esophagus. Electronically Signed: Akhil Izquierdo MD at 15:49 EST Tel [phone], Service support ,
--- NOTE | 2017-12-21 15:40 | NURSING ---
Patient able to answer questions appropriately without using CPOT. Shakes his head no when he is asked if he is in any pain.
[2017-12-21 16:47] LABS: Partial Thromboplast Time 68.8 Seconds (24.1-36.2)
[2017-12-21 17:46] LABS: Bedside Glucose 252 mg/dL (70-110)
[2017-12-21 21:56] LABS: Bedside Glucose 239 mg/dL (70-110)
[2017-12-21 23:45] LABS: Bedside Glucose 234 mg/dL (70-110)
[2017-12-22] VITALS (38 sets, daily range): BP systolic 92–114; BP diastolic 54–90; PULSE 67–78; RESP 13–22; TEMP 37.3–37.5; O2SAT 55–95
[2017-12-22] MEDS: HEPARIN/D5w 25,000 UNITS 25,000 UNITS/250 ML IV.SOLN. 18 UNITS IV ×2 (00:15→17:19)
[2017-12-22] MEDS: Albuterol 2.5 MG/3 ML VIAL.NEB. INHALATION ×4 (00:20→18:48)
[2017-12-22 04:19] LABS: Absolute Lymphocyte Count 0.74 X10^3/ul (0.83-4.51); Absolute Neutrophil Count 6.6 X10^3/uL (2.0-7.7); Hematocrit 42.3 % (40-54); Hemoglobin 12.3 g/dl (13.0-16.5); Lymphocyte # 0.74 X10^3/ul (4.0); Lymphocyte % 9.6 % (19-41); Mean Corp Hgb Conc 29.1 g/gl (32-36); Mean Corpuscular Hgb 27.2 pg (27.0-32.0); Mean Corpuscular Volume 93.6 fL (80-94); Mean Platelet Vol. 10.8 fl (6.2-12.0); Monocyte# 0.34 X10^3/uL; Monocyte% 4.4 % (0-10); Neutrophil # 6.58 X10^3/uL (2.7-7.7); Neutrophil % 85.6 % (47-70); Platelet Count 244 K/mm3 (150-450); RBC Distribution Width CV 14.9 % (11.6-14.6); RBC Distribution Width SD 49.3 fl (35.1-43.9); Red Blood Count 4.52 M/mm3 (4.6-6.2); White Blood Count 7.7 K/mm3 (4.4-11.0)
[2017-12-22 04:24] LABS: POSITIVE COUNT NO; POSITIVE DIFFERENTIAL NO; POSITIVE MORPHOLOGY NO
[2017-12-22 04:58] LABS: Anion Gap 8 (5-15); BUN 86 mg/dL (7-18); BUN/Creat Ratio 71.1 RATIO (10-20); Calcium,Total 9.3 mg/dL (8.5-10.1); Chloride 107 mmol/L (98-107); Creatinine, Serum 1.21 mg/dL (0.70-1.30); EST Glomerular Filtration Rate 65 mL/min (>60); Est Glom Filt Rate - Afr Amer 79 mL/min (>60); Glucose 274 mg/dL (74-106); Potassium 4.1 mmol/L (3.5-5.1); Sodium Level 151 mmol/L (136-145)
[2017-12-22] MEDS: 0.9% NaCl Peripheral Flush Adult/Peds IV (05:14)
[2017-12-22] MEDS: Insulin Lispro 100 UNIT/ML INSULN.PEN SQ (05:46)
[2017-12-22 05:51] LABS: Bedside Glucose 234 mg/dL (70-110)
--- NOTE | 2017-12-22 06:00 | RAD_ITS ---
STUDY: X-RAY CHEST REASON FOR EXAM: Male, 57 years old. Shortness of breath. Intubation. TECHNIQUE: Single AP portable view of the chest. COMPARISON: Comparison is made with prior study dated December 21, 2017. FINDINGS: An endotracheal tube is in situ. The tip is at 5 cm proximal to the byron. EKG electrodes are seen. Increased markings at the lung bases worse at the left lung base suggestive of left basilar atelectasis and/or infiltrate. There is blunting of the left costophrenic angle. Minimal increased markings also seen in the right upper lobe. There is mild cardiac enlargement. Normal mediastinum and marta. Normal visualized pulmonary arteries. Normal visualized aortic arch and descending thoracic aorta. There are diffuse degenerative changes of the visualized thoracic spine. Normal visualized ribs, clavicles, and shoulders. There is no demonstrated abnormality of the visualized soft tissue structures of the upper abdomen. RAD/Chest 1 View (Portable) IMPRESSION: Increased markings at the lung bases more prominent at the left lung base with blunting of left costophrenic angle. Mild increased markings in the right upper lobe. Follow-up is recommended. The tip of the endotracheal tube is at 5 cm proximal to the byron. Electronically Signed: Akhil Izquierdo MD at 9:46 EST Tel [phone], Service support ,
--- NOTE | 2017-12-22 07:27 | PN_ITS ---
Subjective: Patient did okay overnight. Patient did not have any spontaneous desaturations requiring increased of FiO2 overnight. Patient did have a dislodged OG and tube feeds were noted on the bed. No apparent aspiration was noted from suctioning of the endotracheal tube. Patient continues to the pain. Urine output has significantly improved. Patient remains on 12 of PEEP. Objective: Chest x-ray from this morning was personally reviewed. Some left lower lobe atelectasis was noted, but no obvious infiltrates. General: No apparent distress, - - RASS -1. Appears older than stated age. Morbidly obese. HEENT: Atraumatic, PERRLA, EOMI, Normocephalic, - - No scleral icterus or injection noted. Oral: Moist Mucosa, No Gingival or Mucosal Lesions/ Ulcerations Neck: Supple, No JVD, No Nodes, Trachea Midline Lungs: No rhonchi, No wheeze, No rales, Diminished, - - Symmetric expansion. No dullness to percussion. Cardiovascular: Regular rate, Regular Rhythm, Normal S1, Normal S2, No murmurs, No rub noted, No Gallop Abdomen: Bowel Sounds Present, Soft, Non Tender, Non-Distended, Obese Extremities: No cyanosis, No edema, Capillary Refill Less than 3 Seconds, Clubbing Skin: - - No significant change compared to previous Musculoskeletal: No Tenderness to Palpation of Joints or Extremities, No Muscle Wasting Lymphatic: No Cervical, Supraclavicular, or Inguinal Adenopathy Neurological: Cranial nerves II-XII grossly intact, Neuro grossly intact, Motor Exam 5/5 strength throughout Psych/Mental Status: Normal Affect, Appropriate Vital Signs Temp Pulse Resp BP Pulse Ox 37.3 C H 69 14 96/57 L 88 12/22/17 06:00 12/22/17 06:29 12/22/17 06:29 12/22/17 06:00 12/22/17 06:27 Oxygen Flow Rate (L/min) 70 Oxygen Delivery Method Mechanical Ventilator Weight: 141.9 kg Body Mass Index (BMI) 55.5 Finger Stick Blood Glucose 239 Intake and Output for Last 24 Hours 12/20/17 12/21/17 12/22/17 23:59 23:59 23:59 Intake Total 1113.4 / 1113.4 4753.4 / 4753.4 177.8 / 177.8 Output Total 2850 / 2850 2750 / 2750 800 / 800 Balance -1736.6 / -1736.6 2003.4 / 2003.4 -622.2 / -622.2 Labs (Last 48 Hours) 12/20/17 12/20/17 12/20/17 11:24 17:04 19:31 WBC RBC Hgb Hct MCV MCH MCHC RDW RDW Differential Plt Count MPV Immature Gran % (Auto) Neut % (Auto) Lymph % (Auto) [place] % (Auto) Eos % (Auto) Baso % (Auto) Absolute Neuts (auto) Absolute Lymphs (auto) Total Counted PT INR APTT Specimen Type ART Sample Site R Radial pH 7.44 Bicarbonate Actual 41.5 H POC Total CO2 43 Base Excess 17 H O2 Saturation 93 L O2 % 50 ABG pCO2 60.6 H ABG pO2 68 L Salas Test POS Respiration Rate 14 O2 Delivery Device Vent Minute Volume 6.00 Vent Mode A-C Tidal Volume 450 POC PEEP 13 Blood Gas Notified Whom ICU Sodium Potassium Chloride Carbon Dioxide Anion Gap BUN Creatinine Estim Creat Clear Calc Est GFR (MDRD) Af Amer Est GFR (MDRD) Non-Af BUN/Creatinine Ratio Glucose Calcium Total Bilirubin AST ALT Alkaline Phosphatase Total Protein Albumin Globulin Albumin/Globulin Ratio POC Glucose 329 H 298 H 12/20/17 12/20/17 12/21/17 21:19 23:47 04:15 WBC 10.2 RBC 4.66 Hgb 12.7 L Hct 43.8 MCV 94.0 MCH 27.3 MCHC 29.0 L RDW 14.9 H RDW Differential 49.4 H Plt Count 280 MPV 10.8 Immature Gran % (Auto) 0.500 Neut % (Auto) 87.9 H Lymph % (Auto) 7.6 L [place] % (Auto) 4.0 Eos % (Auto) 0.0 Baso % (Auto) 0.0 Absolute Neuts (auto) 9.0 H Absolute Lymphs (auto) 0.78 L Total Counted Not Reportable PT INR APTT Specimen Type Sample Site pH Bicarbonate Actual POC Total CO2 Base Excess O2 Saturation O2 % ABG pCO2 ABG pO2 Salas Test Respiration Rate O2 Delivery Device Minute Volume Vent Mode Tidal Volume POC PEEP Blood Gas Notified Whom Sodium Potassium Chloride Carbon Dioxide Anion Gap BUN Creatinine Estim Creat Clear Calc Est GFR (MDRD) Af Amer Est GFR (MDRD) Non-Af BUN/Creatinine Ratio Glucose Calcium Total Bilirubin AST ALT Alkaline Phosphatase Total Protein Albumin Globulin Albumin/Globulin Ratio POC Glucose 331 H 347 H 12/21/17 12/21/17 12/21/17 04:15 05:26 06:30 WBC RBC Hgb Hct MCV MCH MCHC RDW RDW Differential Plt Count MPV Immature Gran % (Auto) Neut % (Auto) Lymph % (Auto) [place] % (Auto) Eos % (Auto) Baso % (Auto) Absolute Neuts (auto) Absolute Lymphs (auto) Total Counted PT 14.4 INR 1.1 APTT 24.8 Specimen Type Sample Site pH Bicarbonate Actual POC Total CO2 Base Excess O2 Saturation O2 % ABG pCO2 ABG pO2 Salas Test Respiration Rate O2 Delivery Device Minute Volume Vent Mode Tidal Volume POC PEEP Blood Gas Notified Whom Sodium 146 H Potassium 3.9 Chloride 97 L Carbon Dioxide 35.0 H Anion Gap 14 BUN 114 H* Creatinine 2.51 H Estim Creat Clear Calc 30.66 Est GFR (MDRD) Af Amer 34 L Est GFR (MDRD) Non-Af 28 L BUN/Creatinine Ratio 45.4 H Glucose 352 H Calcium 9.3 Total Bilirubin 0.40 AST 16 ALT 35 Alkaline Phosphatase 65 Total Protein 7.7 Albumin 3.2 Globulin 4.5 H Albumin/Globulin Ratio 0.7 L POC Glucose 326 H 12/21/17 12/21/17 12/21/17 11:08 16:25 17:38 WBC RBC Hgb Hct MCV MCH MCHC RDW RDW Differential Plt Count MPV Immature Gran % (Auto) Neut % (Auto) Lymph % (Auto) [place] % (Auto) Eos % (Auto) Baso % (Auto) Absolute Neuts (auto) Absolute Lymphs (auto) Total Counted PT INR APTT 68.8 H Specimen Type Sample Site pH Bicarbonate Actual POC Total CO2 Base Excess O2 Saturation O2 % ABG pCO2 ABG pO2 Salas Test Respiration Rate O2 Delivery Device Minute Volume Vent Mode Tidal Volume POC PEEP Blood Gas Notified Whom Sodium Potassium Chloride Carbon Dioxide Anion Gap BUN Creatinine Estim Creat Clear Calc Est GFR (MDRD) Af Amer Est GFR (MDRD) Non-Af BUN/Creatinine Ratio Glucose Calcium Total Bilirubin AST ALT Alkaline Phosphatase Total Protein Albumin Globulin Albumin/Globulin Ratio POC Glucose 351 H 252 H 12/21/17 12/21/17 12/21/17 21:42 22:25 23:35 WBC RBC Hgb Hct MCV MCH MCHC RDW RDW Differential Plt Count MPV Immature Gran % (Auto) Neut % (Auto) Lymph % (Auto) [place] % (Auto) Eos % (Auto) Baso % (Auto) Absolute Neuts (auto) Absolute Lymphs (auto) Total Counted PT INR APTT 93.0 H* Specimen Type Sample Site pH Bicarbonate Actual POC Total CO2 Base Excess O2 Saturation O2 % ABG pCO2 ABG pO2 Salas Test Respiration Rate O2 Delivery Device Minute Volume Vent Mode Tidal Volume POC PEEP Blood Gas Notified Whom Sodium Potassium Chloride Carbon Dioxide Anion Gap BUN Creatinine Estim Creat Clear Calc Est GFR (MDRD) Af Amer Est GFR (MDRD) Non-Af BUN/Creatinine Ratio Glucose Calcium Total Bilirubin AST ALT Alkaline Phosphatase Total Protein Albumin Globulin Albumin/Globulin Ratio POC Glucose 239 H 234 H 12/22/17 12/22/17 12/22/17 04:00 04:00 04:00 WBC 7.7 RBC 4.52 L Hgb 12.3 L Hct 42.3 MCV 93.6 MCH 27.2 MCHC 29.1 L RDW 14.9 H RDW Differential 49.3 H Plt Count 244 MPV 10.8 Immature Gran % (Auto) 0.400 Neut % (Auto) 85.6 H Lymph % (Auto) 9.6 L [place] % (Auto) 4.4 Eos % (Auto) 0.0 Baso % (Auto) 0.0 Absolute Neuts (auto) 6.6 Absolute Lymphs (auto) 0.74 L Total Counted Not Reportable PT INR APTT 78.0 H Specimen Type Sample Site pH Bicarbonate Actual POC Total CO2 Base Excess O2 Saturation O2 % ABG pCO2 ABG pO2 Salas Test Respiration Rate O2 Delivery Device Minute Volume Vent Mode Tidal Volume POC PEEP Blood Gas Notified Whom Sodium 151 H Potassium 4.1 Chloride 107 Carbon Dioxide 36.0 H Anion Gap 8 BUN 86 H Creatinine 1.21 Estim Creat Clear Calc 63.60 Est GFR (MDRD) Af Amer 79 Est GFR (MDRD) Non-Af 65 BUN/Creatinine Ratio 71.1 H Glucose 274 H Calcium 9.3 Total Bilirubin AST ALT Alkaline Phosphatase Total Protein Albumin Globulin Albumin/Globulin Ratio POC Glucose 12/22/17 05:45 WBC RBC Hgb Hct MCV MCH MCHC RDW RDW Differential Plt Count MPV Immature Gran % (Auto) Neut % (Auto) Lymph % (Auto) [place] % (Auto) Eos % (Auto) Baso % (Auto) Absolute Neuts (auto) Absolute Lymphs (auto) Total Counted PT INR APTT Specimen Type Sample Site pH Bicarbonate Actual POC Total CO2 Base Excess O2 Saturation O2 % ABG pCO2 ABG pO2 Salas Test Respiration Rate O2 Delivery Device Minute Volume Vent Mode Tidal Volume POC PEEP Blood Gas Notified Whom Sodium Potassium Chloride Carbon Dioxide Anion Gap BUN Creatinine Estim Creat Clear Calc Est GFR (MDRD) Af Amer Est GFR (MDRD) Non-Af BUN/Creatinine Ratio Glucose Calcium Total Bilirubin AST ALT Alkaline Phosphatase Total Protein Albumin Globulin Albumin/Globulin Ratio POC Glucose 234 H Microbiology 12/20/17 05:00 Sputum, Induced/Lukens Gram Stain - Final 12/20/17 05:00 Sputum, Induced/Lukens Respiratory Culture - Preliminary Culture exhibits no growth. Clinical Impression(s) from Imaging Studies Chest X-Ray 12/21/17 14:25 IMPRESSION: 1. Endotracheal tube tip is 5.5 cm above the byron. 2. Suboptimal ventilatory effort with stable platelike atelectasis at the left base and mild atelectasis on the right, as noted. Electronically Signed: Brayan Pretty MD at 15:36 EST , Service support , Chest X-Ray 12/21/17 15:00 IMPRESSION: Limited examination. The tip of the orogastric tube appears to be in the distal portion of the esophagus. Electronically Signed: Akhil Izquierdo MD at 15:49 EST Tel [phone], Service support , Medical Necessity - Tobacco Use Smoking Status: Current every day smoker Assessment/Plan All Active Problems (Last Updated 12/21/17 @ 08:38 by Juan Manuel Subramanian DO) GALILEA (acute kidney injury) (Acute) Klebsiella pneumonia (Acute) Acute respiratory failure with hypoxia and hypercapnia (Acute) Pneumococcal pneumonia (Acute) Metabolic encephalopathy (Acute) Heart failure with reduced ejection fraction (Acute) Chest pain (Resolved) Respiratory failure, acute (Resolved) RECOMMENDATIONS: 1. Discontinue diuresis 2. Continue IV Solu-Medrol 40 mg every 12 hours and bronchodilators. 3. Wean FiO2 and PEEP as tolerated. 4. Continue current antibiotics to complete previous course pending sputum culture 5. Attempt to replace OG 6. Continue current sedation regimen with a goal to maintain a RASS of -1 to 1. 7. Continue empiric heparin drip and Protonix. IMPRESSIONS: 1. Acute on chronic combined respiratory failure Patient's oxygenation is slightly improved compared to yesterday. Patient did have diuretics held yesterday, but appears to be tolerating this well. Will attempt to wean PEEP as tolerated this morning. Continue with aggressive mobility protocol. Anticipate completing antibiotic course. Chest x-ray shows no obvious aspiration from tube feeds, but patient does have some lower lobe atelectasis. 2. Metabolic encephalopathy Improved. Likely secondary to acute on chronic CO2 retention. Anticipate improvement with correction of the patient's underlying metabolic derangements. Minimize sedation as tolerated. 3. Decompensated heart failure/history of ischemic cardiomyopathy Patient is likely euvolemic at this time. Some fluid was given back yesterday. Patient will need placement of OG. Will attempt to keep patient at the current weight. 4. Diabetes mellitus Continue Accu-Cheks and sliding scale insulin coverage. The patient has been tolerant of tube feeds to date. Blood sugars are trending up into the 300s. Basal insulin was held while patient is not receiving tube feeds. 5. Obstructive sleep apnea The patient has a history of outpatient noncompliance with the use of nocturnal Pap therapy. He only utilizes supplemental oxygen on a nightly basis. 6. Ongoing tobacco dependence/super morbid obesity/history of medical noncompliance/hypertension Complicates care, management, recovery and prognosis. Nicotine replacement therapy can be utilized while admitted to the hospital. 7. Acute kidney injury Likely secondary to overdiuresis. All diuretics have been held for now. Will attempt to keep weight the same. JONE inhibitor will be discontinued. C ontinue to follow renal function on a daily basis. TIME: 33 minutes of critical care time, independent of procedures, was spent add ressing the patient's acute on chronic combined respiratory failure, metabolic encephalopathy, decompensated heart failure, obstructive sleep apnea, review of all data and collaboration with the care team. (6:30 AM to 7:15 AM) Code Visit 9xxxx: [id number] Critical care first hour
--- NOTE | 2017-12-22 08:09 | PCM.PN.HOSP ---
Patient Problems: Active and Suspected Problems (Last Updated 12/21/17 @ 08:38 by Juan Manuel Subramanian DO) Heart failure with preserved ejection fraction (Acute) GALILEA (acute kidney injury) (Acute) Klebsiella pneumonia (Acute) Acute respiratory failure with hypoxia and hypercapnia (Acute) Pneumococcal pneumonia (Acute) Subjective: Decreased FiO2 requirements. No shortness of breath. No pain. Vitals/I&O's: Vital Signs Temp Pulse Resp BP Pulse Ox 37.3 C H 71 15 104/56 L 93 12/22/17 06:00 12/22/17 07:00 12/22/17 07:00 12/22/17 07:00 12/22/17 07:00 Oxygen Flow Rate (L/min) 70 Oxygen Delivery Method Mechanical Ventilator Weight: 141.9 kg Body Mass Index (BMI) 55.5 Finger Stick Blood Glucose 239 Intake and Output for Last 24 Hours 12/20/17 12/21/17 12/22/17 23:59 23:59 23:59 Intake Total 1113.4 / 1113.4 4753.4 / 4753.4 177.8 / 177.8 Output Total 2850 / 2850 2750 / 2750 800 / 800 Balance -1736.6 / -1736.6 2003.4 / 2003.4 -622.2 / -622.2 General: Alert, - - on vent. afebrile. able to answer yes/no questions. HEENT: Atraumatic, Normocephalic Oral: Moist Mucosa, No Gingival or Mucosal Lesions/ Ulcerations Neck: No Nodes, Thyroid Normal Size and Texture Lungs: Diminished, - - coarse BS Cardiovascular: Regular rate, Regular Rhythm, Normal S1, Normal S2, - - NSVT on tele Abdomen: Bowel Sounds Present, Soft, Non Tender, Non-Distended, No Hepato-splenomegaly, Obese Extremities: No edema, No Calf Tenderness Skin: No rashes, No breakdown Psych/Mental Status: Appropriate Microbiology Past 72 Hours 12/20/17 05:00 Sputum, Induced/Lukens Gram Stain - Final 12/20/17 05:00 Sputum, Induced/Lukens Respiratory Culture - Preliminary Culture exhibits no growth. Laboratory Results 12/21/17 11:08: POC Glucose 351 H 12/21/17 16:25: APTT 68.8 H 12/21/17 17:38: POC Glucose 252 H 12/21/17 21:42: POC Glucose 239 H 12/21/17 22:25: APTT 93.0 H* 12/21/17 23:35: POC Glucose 234 H 12/22/17 04:00: WBC 7.7, RBC 4.52 L, Hgb 12.3 L, Hct 42.3, MCV 93.6, MCH 27.2, MCHC 29.1 L, RDW 14.9 H, RDW Differential 49.3 H, Plt Count 244, MPV 10.8, Immature Gran % (Auto) 0.400, Neut % (Auto) 85.6 H, Lymph % (Auto) 9.6 L, [place] % (Auto) 4.4, Eos % (Auto) 0.0, Baso % (Auto) 0.0, Absolute Neuts (auto) 6.6, Absolute Lymphs (auto) 0.74 L, Total Counted Not Reportable 12/22/17 04:00: Sodium 151 H, Potassium 4.1, Chloride 107, Carbon Dioxide 36.0 H, Anion Gap 8, BUN 86 H, Creatinine 1.21, Estim Creat Clear Calc 63.60, Est GFR (MDRD) Af Amer 79, Est GFR (MDRD) Non-Af 65, BUN/Creatinine Ratio 71.1 H, Glucose 274 H, Calcium 9.3 12/22/17 04:00: APTT 78.0 H 12/22/17 05:45: POC Glucose 234 H Current Medications Acetaminophen (Tylenol Liquid) 650 mg GT Q6 [facility] Last Admin: 12/22/17 05:15 Dose: Not Given Albuterol Sulfate (Ventolin Aerosols) 2.5 mg INHALATION Q6HWA.RT [facility] Last Admin: 12/22/17 06:26 Dose: 2.5 mg Aspirin (Aspirin, Baby) 81 mg GT DAILY [facility] Last Admin: 12/21/17 10:27 Dose: 81 mg Atorvastatin Calcium (Lipitor) 40 mg GT QHS [facility] Last Admin: 12/21/17 21:32 Dose: Not Given Chlorhexidine Gluconate () 15 ml PO BID [facility] Last Admin: 12/21/17 21:50 Dose: 15 ml Clopidogrel Bisulfate (Plavix) 75 mg GT DAILY [facility] Last Admin: 12/21/17 10:25 Dose: 75 mg Dextrose (D50w Syringe) 0 gm IV X1 PRN; Protocol PRN Reason: Hypoglycemia Famotidine (Pepcid) 20 mg GT BID [facility] Last Admin: 12/21/17 21:32 Dose: Not Given Glucagon () 1 mg IM .X1 PRN PRN Reason: Hypoglycemia Heparin Sodium (Porcine) (Heparin Na) 0 unit IV UD PRN; Protocol Sodium Chloride () 250 mls @ 15 mls/hr IV .[id number] PRN PRN Reason: SALINE FLUSH Sodium Chloride () 250 mls @ 15 mls/hr IV .[id number] PRN PRN Reason: SALINE FLUSH Last Admin: 12/16/17 21:29 Dose: 15 mls/hr Fentanyl () 100 mls @ 5 mls/hr IV .Q20H [facility] Last Admin: 12/21/17 17:43 Dose: 5 mls/hr Sodium Chloride () 1,000 mls @ 0 mls/hr IV .Q0M JUANY Levofloxacin (Levaquin Iv) 750 mg in 150 mls @ 100 mls/hr IV Q24 [facility] Stop: 12/23/17 11:29 Last Admin: 12/21/17 10:32 Dose: 100 mls/hr Metronidazole (Flagyl) 500 mg in 100 mls @ 100 mls/hr IV Q8 [facility] Stop: 12/23/17 22:59 Last Admin: 12/22/17 05:14 Dose: 100 mls/hr Propofol (Diprivan) 1,000 mg in 100 mls @ 9.852 mls/hr CONT INF .[id number] [facility] Last Admin: 12/22/17 00:52 Dose: Not Given Heparin Sodium/Dextrose () 25,000 units in 250 mls @ 18 mls/hr IV .[id number] [facility]; Protocol Last Admin: 12/22/17 00:15 Dose: 18 mls/hr Enteral Nutritional Formula (Glucerna 1.5) 1,000 mls @ 55 mls/hr GT .[id number] [facility] Last Admin: 12/22/17 04:20 Dose: Not Given Insulin Human Lispro (Humalog Kwikpen (Bkc)) 0 unit SQ Q6 [facility]; Protocol Last Admin: 12/22/17 05:46 Dose: 3 units Magnesium Hydroxide (Milk Of Magnesia) 30 ml PO DAILY PRN PRN PRN Reason: Constipation Methylprednisolone (Solu-Medrol) 40 mg IV Q12 [facility] Polyethylene Glycol (Miralax) 17 gm GT DAILY PRN PRN PRN Reason: Constipation Potassium Bicarb/Potassium Chloride (Potassium Chl 25 Meq Eff (For Liquid)) 25 meq GT BID [facility] Last Admin: 12/21/17 21:32 Dose: Not Given Senna/Docusate Sodium (Senokot-S, Anne-Marie-Colace) 2 tablet GT BID [facility] Last Admin: 12/21/17 21:32 Dose: Not Given Sodium Chloride () 5 - 30 ml IV UD PRN PRN Reason: SALINE FLUSH Last Admin: 12/22/17 05:14 Dose: 30 ml Medical Necessity - Tobacco Use Smoking Status: Current every day smoker Assessment/Plan All Active Problems (Last Updated 12/21/17 @ 08:38 by Juan Manuel Subramanian DO) Heart failure with preserved ejection fraction (Acute) GALILEA (acute kidney injury) (Acute) Klebsiella pneumonia (Acute) Acute respiratory failure with hypoxia and hypercapnia (Acute) Pneumococcal pneumonia (Acute) Metabolic encephalopathy (Resolved) Chest pain (Resolved) Respiratory failure, acute (Resolved) 1. Acute hypoxic and hypercapnic respiratory failure. slightly improved, now on 55% FiO2 from 60% FiO2 multifactorial: PNA, CHF, aspiration pneumonitis, EMILIA, obesity hypoventilation CXR overall improved wean oxygen as tolerated CCM mgmt appreciated BDs and steroid trach and PEG if fails to progress on empiric heparin for possible VTE 2. Pneumococcal and Klebsiella Pneumonia: on Levaquin through the 3. HFpEF EF 60% from echo 12/12 lasix stopped due to GALILEA ACEi stopped due to GALILEA 4. Fevers low grade, up to 37.7 at 2000 on 12/21 had been persistent since admission BCx on 5th negative TTE on the negative UA, UCx negative other than sputum cultures, infectious work up has been negative schedule acetaminophen 5. GALILEA improved likely due to overdiuresis monitor lasix and lisinopril stopped 6. DM2 uncontrolled Lantus held due to intolerance of tube feeds. consider insulin gtt to keep MBS < 200 in a critically ill patient 7. DVT proph: SQ heparin Code Visit Inpatient E&M: 32062 Subs Hosp L2
--- NOTE | 2017-12-22 08:15 | PN_ITS ---
Patient Problems: Active and Suspected Problems (Last Updated 12/21/17 @ 08:38 by Juan Manuel Subramanian DO) Heart failure with preserved ejection fraction (Acute) GALILEA (acute kidney injury) (Acute) Klebsiella pneumonia (Acute) Acute respiratory failure with hypoxia and hypercapnia (Acute) Pneumococcal pneumonia (Acute) Subjective: Decreased FiO2 requirements. No shortness of breath. No pain. Vitals/I&O's: Vital Signs Temp Pulse Resp BP Pulse Ox 37.3 C H 71 15 104/56 L 93 12/22/17 06:00 12/22/17 07:00 12/22/17 07:00 12/22/17 07:00 12/22/17 07:00 Oxygen Flow Rate (L/min) 70 Oxygen Delivery Method Mechanical Ventilator Weight: 141.9 kg Body Mass Index (BMI) 55.5 Finger Stick Blood Glucose 239 Intake and Output for Last 24 Hours 12/20/17 12/21/17 12/22/17 23:59 23:59 23:59 Intake Total 1113.4 / 1113.4 4753.4 / 4753.4 177.8 / 177.8 Output Total 2850 / 2850 2750 / 2750 800 / 800 Balance -1736.6 / -1736.6 2003.4 / 2003.4 -622.2 / -622.2 General: Alert, - - on vent. afebrile. able to answer yes/no questions. HEENT: Atraumatic, Normocephalic Oral: Moist Mucosa, No Gingival or Mucosal Lesions/ Ulcerations Neck: No Nodes, Thyroid Normal Size and Texture Lungs: Diminished, - - coarse BS Cardiovascular: Regular rate, Regular Rhythm, Normal S1, Normal S2, - - NSVT on tele Abdomen: Bowel Sounds Present, Soft, Non Tender, Non-Distended, No Hepato- splenomegaly, Obese Extremities: No edema, No Calf Tenderness Skin: No rashes, No breakdown Psych/Mental Status: Appropriate Microbiology Past 72 Hours 12/20/17 05:00 Sputum, Induced/Lukens Gram Stain - Final 12/20/17 05:00 Sputum, Induced/Lukens Respiratory Culture - Preliminary Culture exhibits no growth. Laboratory Results 12/21/17 11:08: POC Glucose 351 H 12/21/17 16:25: APTT 68.8 H 12/21/17 17:38: POC Glucose 252 H 12/21/17 21:42: POC Glucose 239 H 12/21/17 22:25: APTT 93.0 H* 12/21/17 23:35: POC Glucose 234 H 12/22/17 04:00: WBC 7.7, RBC 4.52 L, Hgb 12.3 L, Hct 42.3, MCV 93.6, MCH 27.2, MCHC 29.1 L, RDW 14.9 H, RDW Differential 49.3 H, Plt Count 244, MPV 10.8, Immature Gran % (Auto) 0.400, Neut % (Auto) 85.6 H, Lymph % (Auto) 9.6 L, Long % (Auto) 4.4, Eos % (Auto) 0.0, Baso % (Auto) 0.0, Absolute Neuts (auto) 6.6, Absolute Lymphs (auto) 0.74 L, Total Counted Not Reportable 12/22/17 04:00: Sodium 151 H, Potassium 4.1, Chloride 107, Carbon Dioxide 36.0 H , Anion Gap 8, BUN 86 H, Creatinine 1.21, Estim Creat Clear Calc 63.60, Est GFR (MDRD) Af Amer 79, Est GFR (MDRD) Non-Af 65, BUN/Creatinine Ratio 71.1 H, Glucose 274 H, Calcium 9.3 12/22/17 04:00: APTT 78.0 H 12/22/17 05:45: POC Glucose 234 H Current Medications Acetaminophen (Tylenol Liquid) 650 mg GT Q6 [facility] Last Admin: 12/22/17 05:15 Dose: Not Given Albuterol Sulfate (Ventolin Aerosols) 2.5 mg INHALATION Q6HWA.RT [facility] Last Admin: 12/22/17 06:26 Dose: 2.5 mg Aspirin (Aspirin, Baby) 81 mg GT DAILY [facility] Last Admin: 12/21/17 10:27 Dose: 81 mg Atorvastatin Calcium (Lipitor) 40 mg GT QHS [facility] Last Admin: 12/21/17 21:32 Dose: Not Given Chlorhexidine Gluconate () 15 ml PO BID [facility] Last Admin: 12/21/17 21:50 Dose: 15 ml Clopidogrel Bisulfate (Plavix) 75 mg GT DAILY [facility] Last Admin: 12/21/17 10:25 Dose: 75 mg Dextrose (D50w Syringe) 0 gm IV X1 PRN; Protocol PRN Reason: Hypoglycemia Famotidine (Pepcid) 20 mg GT BID [facility] Last Admin: 12/21/17 21:32 Dose: Not Given Glucagon () 1 mg IM .X1 PRN PRN Reason: Hypoglycemia Heparin Sodium (Porcine) (Heparin Na) 0 unit IV UD PRN; Protocol Sodium Chloride () 250 mls @ 15 mls/hr IV .[id number] PRN PRN Reason: SALINE FLUSH Sodium Chloride () 250 mls @ 15 mls/hr IV .[id number] PRN PRN Reason: SALINE FLUSH Last Admin: 12/16/17 21:29 Dose: 15 mls/hr Fentanyl () 100 mls @ 5 mls/hr IV .Q20H [facility] Last Admin: 12/21/17 17:43 Dose: 5 mls/hr Sodium Chloride () 1,000 mls @ 0 mls/hr IV .Q0M JUANY Levofloxacin (Levaquin Iv) 750 mg in 150 mls @ 100 mls/hr IV Q24 [facility] Stop: 12/23/17 11:29 Last Admin: 12/21/17 10:32 Dose: 100 mls/hr Metronidazole (Flagyl) 500 mg in 100 mls @ 100 mls/hr IV Q8 [facility] Stop: 12/23/17 22:59 Last Admin: 12/22/17 05:14 Dose: 100 mls/hr Propofol (Diprivan) 1,000 mg in 100 mls @ 9.852 mls/hr CONT INF .[id number] [facility] Last Admin: 12/22/17 00:52 Dose: Not Given Heparin Sodium/Dextrose () 25,000 units in 250 mls @ 18 mls/hr IV .[id number] [facility]; Protocol Last Admin: 12/22/17 00:15 Dose: 18 mls/hr Enteral Nutritional Formula (Glucerna 1.5) 1,000 mls @ 55 mls/hr GT .[id number] [facility] Last Admin: 12/22/17 04:20 Dose: Not Given Insulin Human Lispro (Humalog Kwikpen (Bkc)) 0 unit SQ Q6 [facility]; Protocol Last Admin: 12/22/17 05:46 Dose: 3 units Magnesium Hydroxide (Milk Of Magnesia) 30 ml PO DAILY PRN PRN PRN Reason: Constipation Methylprednisolone (Solu-Medrol) 40 mg IV Q12 [facility] Polyethylene Glycol (Miralax) 17 gm GT DAILY PRN PRN PRN Reason: Constipation Potassium Bicarb/Potassium Chloride (Potassium Chl 25 Meq Eff (For Liquid)) 25 meq GT BID [facility] Last Admin: 12/21/17 21:32 Dose: Not Given Senna/Docusate Sodium (Senokot-S, Anne-Marie-Colace) 2 tablet GT BID [facility] Last Admin: 12/21/17 21:32 Dose: Not Given Sodium Chloride () 5 - 30 ml IV UD PRN PRN Reason: SALINE FLUSH Last Admin: 12/22/17 05:14 Dose: 30 ml Medical Necessity - Tobacco Use Smoking Status: Current every day smoker Assessment/Plan All Active Problems (Last Updated 12/21/17 @ 08:38 by Juan Manuel Subramanian DO) Heart failure with preserved ejection fraction (Acute) GALILEA (acute kidney injury) (Acute) Klebsiella pneumonia (Acute) Acute respiratory failure with hypoxia and hypercapnia (Acute) Pneumococcal pneumonia (Acute) Metabolic encephalopathy (Resolved) Chest pain (Resolved) Respiratory failure, acute (Resolved) 1. Acute hypoxic and hypercapnic respiratory failure. * slightly improved, now on 55% FiO2 from 60% FiO2 * multifactorial: PNA, CHF, aspiration pneumonitis, EMILIA, obesity hypoventilation * CXR overall improved * wean oxygen as tolerated * CCM mgmt appreciated * BDs and steroid * trach and PEG if fails to progress * on empiric heparin for possible VTE 2. Pneumococcal and Klebsiella Pneumonia: * on Levaquin through the 3. HFpEF * EF 60% from echo 12/12 * lasix stopped due to GALILEA * ACEi stopped due to GALILEA 4. Fevers * low grade, up to 37.7 at 1999 on 12/21 * had been persistent since admission * BCx on 5th negative * TTE on the 5th negative * UA, UCx negative * other than sputum cultures, infectious work up has been negative * schedule acetaminophen 5. GALILEA * improved * likely due to overdiuresis * monitor * lasix and lisinopril stopped 6. DM2 * uncontrolled * Lantus held due to intolerance of tube feeds. * consider insulin gtt to keep MBS < 200 in a critically ill patient 7. DVT proph: SQ heparin Code Visit Inpatient E&M: 14428 Subs Hosp L2
[2017-12-22] MEDS: fentaNYL drip 100 ML 5 MCG IV ×2 (08:23→17:20)
[2017-12-22] MEDS: Propofol 10MG/Ml 1,000 MG/100 ML Bottle 9.852 MG CONT INF ×2 (08:23→17:20)
--- NOTE | 2017-12-22 09:41 | CASEMGMT ---
SW participated in ICU rounds this morning. Pt remains on the ventilator at this time. SW will continue to follow for discharge needs, it is anticipated pt will need mcc vs. LTACH placement. BUDDY Cowart, REGISTERED NURSING PROFESSOR
[2017-12-22] MEDS: Chlorhexidine 15 ML PO ×2 (10:00→22:26)
--- NOTE | 2017-12-22 10:20 | PCM.PN.CARD ---
Subjectve: Patient awake and alert this morning. PEEP is at 12, FiO2 is 50%. Plan for trach and PEG on Tuesday morning unless patient can be successfully extubated from now until then. Creatinine improved to 1.2. Heparin drip infusing for possible pulmonary embolism. Lower extremity edema has completely resolved. Objective: Vital Signs Temp Pulse Resp BP Pulse Ox 99.4 F H 74 14 97/58 L 88 12/22/17 08:00 12/22/17 08:58 12/22/17 08:58 12/22/17 08:00 12/22/17 08:58 Oxygen Flow Rate (L/min) 70 Oxygen Delivery Method Mechanical Ventilator Weight: 312 lb 13.375 oz Body Mass Index (BMI) 55.5 Finger Stick Blood Glucose 239 Intake and Output for Last 24 Hours 12/20/17 12/21/17 12/22/17 23:59 23:59 23:59 Intake Total 1113.4 / 1113.4 4753.4 / 4753.4 177.8 / 177.8 Output Total 2850 / 2850 2750 / 2750 800 / 800 Balance -1736.6 / -1736.6 2003.4 / 2003.4 -622.2 / -622.2 General: Awake, Alert, Oriented x 3 HEENT: PERRL, EOMI, Sclera Non Icteric Neck: Supple, Good ROM, No Lymph Node Enlargement Lungs: Clear to auscultation Cardiovascular: Regular Rhythm, Normal S1, Normal S2, No Murmurs, No Rubs, No Gallops Vascular: No Carotid Bruits, Normal Femoral Pulses, Normal Radial Pulses, Normal Dorsalis Pedal Pulse, Normal Posterior Tibial Pulses Abdomen: Bowel Sounds Present, Soft, Non Tender, No HSM, No Organomegaly Extremities: No Cyanosis, No Clubbing, No edema Neurological: No Focal Motor or Sensory Deficit 12/21/17 16:25: APTT 68.8 H 12/21/17 22:25: APTT 93.0 H* 12/22/17 04:00: WBC 7.7, RBC 4.52 L, Hgb 12.3 L, Hct 42.3, MCV 93.6, MCH 27.2, MCHC 29.1 L, RDW 14.9 H, RDW Differential 49.3 H, Plt Count 244, MPV 10.8, Immature Gran % (Auto) 0.400, Neut % (Auto) 85.6 H, Lymph % (Auto) 9.6 L, [place]enton % (Auto) 4.4, Eos % (Auto) 0.0, Baso % (Auto) 0.0, Absolute Neuts (auto) 6.6, Total Counted Not Reportable 12/22/17 04:00: Sodium 151 H, Potassium 4.1, Chloride 107, Carbon Dioxide 36.0 H, Anion Gap 8, BUN 86 H, Creatinine 1.21, Est GFR (MDRD) Af Amer 79, Est GFR (MDRD) Non-Af 65, BUN/Creatinine Ratio 71.1 H, Glucose 274 H, Calcium 9.3 12/22/17 04:00: APTT 78.0 H Rhythm: EKG: ECHO: Stress Test: Cardiac Cath: PCI: CT Surgery: Holter monitor: EPS: PPM: CXR: Chest CT Scan: Medical Necessity - Tobacco Use Smoking Status: Current every day smoker Assessment/Plan 1. Coronary artery disease: Patient has no significant troponin release despite having known coronary artery disease. He has a known occluded right coronary artery, with collateral from left to right, and is status post angioplasty and stenting to his LAD in 2012 and left circumflex in June 2017. Patient has had no malignant arrhythmias, and apparently presented with respiratory distress possibly due to pulmonary source of infection. He is being treated with broad-spectrum antibiotics and is on no pressor support at this time. Patient does have evidence of right-sided heart failure and unknown pulmonary pressures by echocardiogram on day of admission. His EF was estimated to be 60% although his imaging was technically difficult. I reviewed his echocardiogram again today, and suggest moderate global LV dysfunction with right ventricular enlargement. Lasix drip was held for the past 72 hours due to increase in his creatinine. His creatinine has improved with ministration of 2 L of fluid back. His edema has completely resolved. His PEEP and FiO2 requirements are improving, but I am not sure whether it will be enough to extubate him without proceeding with trach and PEG on Tuesday. We may want to consider a left and right heart catheterization tomorrow, Tuesday, to determine if he has any ischemic burden that may be inhibiting him for being extubated. I spoke with the patient's power of insurance attorney yesterday, and explained the risks/benefits of the procedure of the left heart catheterization, coronary angiogram, angioplasty, and right heart catheterization, with specific attention to lack of on-site surgical backup, and the power of insurance attorney has given permission to move forward. His catheterization was put on hold today due to the patient's high risk O2 requirements. Right heart catheterization may be somewhat problematic if the patient had a pulmonary embolism. If his catheterization shows no correctable coronary disease, and if we are unable to get more the ventilator, he may require tracheostomy for additional weaning. Would recommend he continue his baby aspirin, Plavix, and hold his antihypertensives given his infection and hypotension. He has not required pressor agents at this time. Would recommend reinitiating Lasix 20 mg IV twice daily to match his I's and O's at this point. Would recommend continuing heparin drip in case the patient has had a pulmonary embolism. CTA is problematic given his recent acute on chronic renal failure. His FiO2 and PEEP settings are improving. 2. Obstructive sleep apnea: The patient is evidence of pulmonary hypertension and right-sided heart failure most likely result of obstructive sleep apnea. He is on chronic O2 therapy at home as well. Patient may be preload dependent so if his blood pressure deteriorates with IV diuresis, he may require discontinuation of IV diuretic therapy. 3. Hyperlipidemia: Continue statin based medications. 4. Thank you very much for the opportunity to participate in the cardiac care of your patient. Discussed with Dr. Campos. Code Visit Inpatient E&M: 76902 Subs Hosp L2
--- NOTE | 2017-12-22 10:25 | PN.CARD_ITS ---
Subjectve: Patient awake and alert this morning. PEEP is at 12, FiO2 is 50%. Plan for trach and PEG on Tuesday morning unless patient can be successfully extubated from now until then. Creatinine improved to 1.2. Heparin drip infusing for possible pulmonary embolism. Lower extremity edema has completely resolved. Objective: Vital Signs Temp Pulse Resp BP Pulse Ox 99.4 F H 74 14 97/58 L 88 12/22/17 08:00 12/22/17 08:58 12/22/17 08:58 12/22/17 08:00 12/22/17 08:58 Oxygen Flow Rate (L/min) 70 Oxygen Delivery Method Mechanical Ventilator Weight: 312 lb 13.375 oz Body Mass Index (BMI) 55.5 Finger Stick Blood Glucose 239 Intake and Output for Last 24 Hours 12/20/17 12/21/17 12/22/17 23:59 23:59 23:59 Intake Total 1113.4 / 1113.4 4753.4 / 4753.4 177.8 / 177.8 Output Total 2850 / 2850 2750 / 2750 800 / 800 Balance -1736.6 / -1736.6 2003.4 / 2003.4 -622.2 / -622.2 General: Awake, Alert, Oriented x 3 HEENT: PERRL, EOMI, Sclera Non Icteric Neck: Supple, Good ROM, No Lymph Node Enlargement Lungs: Clear to auscultation Cardiovascular: Regular Rhythm, Normal S1, Normal S2, No Murmurs, No Rubs, No Gallops Vascular: No Carotid Bruits, Normal Femoral Pulses, Normal Radial Pulses, Normal Dorsalis Pedal Pulse, Normal Posterior Tibial Pulses Abdomen: Bowel Sounds Present, Soft, Non Tender, No HSM, No Organomegaly Extremities: No Cyanosis, No Clubbing, No edema Neurological: No Focal Motor or Sensory Deficit 12/21/17 16:25: APTT 68.8 H 12/21/17 22:25: APTT 93.0 H* 12/22/17 04:00: WBC 7.7, RBC 4.52 L, Hgb 12.3 L, Hct 42.3, MCV 93.6, MCH 27.2, MCHC 29.1 L, RDW 14.9 H, RDW Differential 49.3 H, Plt Count 244, MPV 10.8, Immature Gran % (Auto) 0.400, Neut % (Auto) 85.6 H, Lymph % (Auto) 9.6 L, Bryan % (Auto) 4.4, Eos % (Auto) 0.0, Baso % (Auto) 0.0, Absolute Neuts (auto) 6.6, Total Counted Not Reportable 12/22/17 04:00: Sodium 151 H, Potassium 4.1, Chloride 107, Carbon Dioxide 36.0 H , Anion Gap 8, BUN 86 H, Creatinine 1.21, Est GFR (MDRD) Af Amer 79, Est GFR (MDRD) Non-Af 65, BUN/Creatinine Ratio 71.1 H, Glucose 274 H, Calcium 9.3 12/22/17 04:00: APTT 78.0 H Rhythm: EKG: ECHO: Stress Test: Cardiac Cath: PCI: CT Surgery: Holter monitor: EPS: PPM: CXR: Chest CT Scan: Medical Necessity - Tobacco Use Smoking Status: Current every day smoker Assessment/Plan 1. Coronary artery disease: Patient has no significant troponin release despite having known coronary artery disease. He has a known occluded right coronary artery, with collateral from left to right, and is status post angioplasty and stenting to his LAD in 2012 and left circumflex in June 2017. Patient has had no malignant arrhythmias, and apparently presented with respiratory distress possibly due to pulmonary source of infection. He is being treated with broad- spectrum antibiotics and is on no pressor support at this time. Patient does have evidence of right-sided heart failure and unknown pulmonary pressures by echocardiogram on day of admission. His EF was estimated to be 60% although his imaging was technically difficult. I reviewed his echocardiogram again today, and suggest moderate global LV dysfunction with right ventricular enlargement. Lasix drip was held for the past 72 hours due to increase in his creatinine. His creatinine has improved with ministration of 2 L of fluid back. His edema has completely resolved. His PEEP and FiO2 requirements are improving, but I am not sure whether it will be enough to extubate him without proceeding with trach and PEG on Tuesday. We may want to consider a left and right heart catheteriza tion tomorrow, Tuesday, to determine if he has any ischemic burden that may be inhibiting him for being extubated. I spoke with the patient's power of chief operator synthesis yesterday, and explained the risks/benefits of the procedure of the left heart catheterization, coronary angiogram, angioplasty, and right heart catheterization, with specific attention to lack of on-site surgical backup, and the power of chief operator synthesis has given permission to move forward. His catheterization was put on hold today due to the patient's high risk O2 requirements. Right heart catheterization may be somewhat problematic if the patient had a pulmonary embolism. If his catheterization shows no correctable coronary disease, and if we are unable to get more the ventilator, he may require tracheostomy for additional weaning. Would recommend he continue his baby aspirin, Plavix, and hold his antihypertensives given his infection and hypotension. He has not required pressor agents at this time. Would recommend reinitiating Lasix 20 mg IV twice daily to match his I's and O's at this point. Would recommend continuing heparin drip in case the patient has had a pulmonary embolism. CTA is problematic given his recent acute on chronic renal failure. His FiO2 and PEEP settings are improving. 2. Obstructive sleep apnea: The patient is evidence of pulmonary hypertension and right-sided heart failure most likely result of obstructive sleep apnea. He is on chronic O2 therapy at home as well. Patient may be preload dependent so if his blood pressure deteriorates with IV diuresis, he may require discontinuation of IV diuretic therapy. 3. Hyperlipidemia: Continue statin based medications. 4. Thank you very much for the opportunity to participate in the cardiac care of your patient. Discussed with Dr. Campos. Code Visit Inpatient E&M: [id number] Subs Hosp L2
[2017-12-22 10:36] LABS: Partial Thromboplast Time 88.6 Seconds (24.1-36.2)
--- NOTE | 2017-12-22 11:01 | RAD_ITS ---
STUDY: X-RAY CHEST REASON FOR EXAM: Male, 57 years old. Line and OG tube placement. TECHNIQUE: AP portable upright view of the chest on 3 films. COMPARISON: Portable AP upright chest x-ray 2 0542 hours FINDINGS: Endotracheal tube again noted, its tip 5.5 cm above the byron. Nasogastric tube passes beneath the diaphragm, its tip outside the [id number]. No central venous catheter is identified. There is persistent patchy density of probable atelectasis in the left lung base. Atelectasis on the right is improved. There is no demonstrated pleural abnormality. There is borderline cardiomegaly. Normal mediastinum and marta. Normal visualized pulmonary arteries. Normal visualized aortic arch and descending thoracic aorta. There are stable multilevel degenerative changes of the visualized thoracic spine. Normal visualized ribs, clavicles, and shoulders. There is no demonstrated abnormality of the visualized soft tissue structures of the upper abdomen. RAD/Chest 1 View (Portable) IMPRESSION: 1. Nasogastric tube passes beneath the diaphragm, its tip outside the [id number]. 2. Endotracheal tube unchanged. 3. Improved atelectasis in the right base. Atelectasis on the left is unchanged. 4. Borderline cardiac enlargement. No CHF. Electronically Signed: Brayan Pretty MD at 12:14 EST , Service support ,
[2017-12-22] MEDS: levoFLOXacin IV 750 MG/150 ML BAG 100 MG IV (11:08)
[2017-12-22 13:16] LABS: Bedside Glucose 268 mg/dL (70-110)
[2017-12-22] MEDS: Famotidine 20 MG Tablet GT ×2 (14:13→22:33)
[2017-12-22] MEDS: Aspirin 81 MG TAB.CHEW GT (14:13)
[2017-12-22] MEDS: Clopidogrel Bisulfate 75 MG Tablet GT (14:13)
[2017-12-22 17:21] LABS: Bedside Glucose 215 mg/dL (70-110)
[2017-12-22] MEDS: Insulin Lispro 100 UNIT/ML INSULN.PEN SC (17:22)
[2017-12-22] MEDS: Furosemide 20 MG/2 ML VIAL IV (17:24)
[2017-12-22 17:36] LABS: Partial Thromboplast Time 75.1 Seconds (24.1-36.2)
[2017-12-22] MEDS: Propofol 200 MG/20 ML Vial 20 MG IV BOLUS (18:24)
--- NOTE | 2017-12-22 18:29 | RAD_ITS ---
STUDY: X-RAY CHEST REASON FOR EXAM: Male, 57 years old. Endotracheal tube placement. TECHNIQUE: Single AP portable view of the chest. COMPARISON: Prior portable chest of December 22, 2017 at 12:20 PM. FINDINGS: The endotracheal tube ends 4 cm above the byron. The enteric tube enters the upper abdomen and is well below the gastroesophageal junction. The lung vences are moderately well expanded. 1 transverse plate like area of consolidation or atelectasis across the left lung base unchanged from prior exam. Borderline cardiomegaly. Normal mediastinum and marta. Normal visualized pulmonary arteries. Normal visualized aortic arch and descending thoracic aorta. There are diffuse degenerative changes of the visualized thoracic spine. Normal visualized ribs, clavicles, and shoulders. There is no demonstrated abnormality of the visualized soft tissue structures of the upper abdomen. RAD/Chest 1 View (Portable) IMPRESSION: Endotracheal tube ends 4 cm above the byron. Enteric tube is well below the gastroesophageal junction. Stable lung findings with 1 broad platelike area of atelectasis or infiltrate across the left lung base. Electronically Signed: Janessa Combs MD at 22:21 EST , Service support ,
--- NOTE | 2017-12-22 18:39 | NURSING ---
@ 1822 this RN observed patient pulling at ETT with the right arm while trying to sit up. Right arm was restrained. The ETT was pulled out to 19 cm. The cuff was deflated, the ETT was advance to 25cm and the cuff was reinflated. Rapid response was called. The patient's voice was audible around the ETT and the O2 saturation dropped to 71%. The ETT was removed and the patient was oxygenated with a mask/ambu bag at 15L. The patient was reintubated and NG was reinserted. All pillows were removed from under the patients arms and the restraints were reapplied with little slack. Portable CXR pending to confirm placement at this time. Dr. Campos notified of events.
--- NOTE | 2017-12-22 19:00 | RAD_ITS ---
STUDY: X-RAY - ABDOMEN/PELVIS REASON FOR EXAM: Male, 57 years old. Reinsertion of orogastric tube TECHNIQUE: KUB COMPARISON: None. FINDINGS: Normal visualized lung bases. There is an unremarkable bowel gas pattern. There is no demonstrated free abdominal air. The visualized liver, spleen and kidneys are grossly normal in size and morphology. Orogastric tube has been placed with tip in the gastric body Normal soft tissue structures. Normal visualized osseous structures. RAD/Abdomen Single View (Portable) IMPRESSION: Orogastric tube placement with tip in gastric body Electronically Signed: Filemon Orona MD at 23:43 EST , Service support ,
[2017-12-22] MEDS: Atorvastatin Calcium 40 MG Tablet GT (22:33)
[2017-12-23] VITALS (40 sets, daily range): BP systolic 85–141; BP diastolic 39–91; PULSE 69–95; RESP 13–22; TEMP 37.3–38.4; O2SAT 88–97
[2017-12-23 00:13] LABS: Partial Thromboplast Time 69.6 Seconds (24.1-36.2)
[2017-12-23 01:01] LABS: Bedside Glucose 167 mg/dL (70-110)
[2017-12-23] MEDS: Propofol 10MG/Ml 1,000 MG/100 ML Bottle 9.852 MG CONT INF ×3 (03:20→21:32)
--- NOTE | 2017-12-23 04:27 | RAD_ITS ---
STUDY: X-RAY CHEST REASON FOR EXAM: Male, 57 years old. Fever. TECHNIQUE: Single AP portable view of the chest. COMPARISON: December 22, 2017. FINDINGS: Patient is intubated. The tip of endotracheal tube is at the aortic arch. Enteric tube is present with the distal and below the inferior edge of the image. The lungs are underexpanded. There are prominent bronchovascular markings. There is left basilar airspace consolidation and atelectasis. There is also heterogeneous right basilar airspace disease. There may be right upper lobe subsegmental atelectasis. There are prominent bronchovascular markings in both lungs. There is pleural fibrotic thickening of the pulmonary lung apices. There is mild cardiac enlargement. Normal mediastinum and marta. There is prominence of the pulmonary hilar arteries without peripheral pulmonary vascular congestion. There is atherosclerotic calcification of the aortic arch with tortuosity. There are diffuse degenerative changes of the visualized thoracic spine. There are degenerative changes at both shoulders. There is no demonstrated abnormality of the visualized soft tissue structures of the upper abdomen. RAD/Chest 1 View (Portable) IMPRESSION: 1. Bilateral basilar airspace consolidation and atelectasis. 2. Right upper lobe subsegmental atelectasis. Electronically Signed: Katya Wright MD at 8:46 EST , Service support ,
[2017-12-23 05:13] LABS: Anion Gap 7 (5-15); BUN 63 mg/dL (7-18); BUN/Creat Ratio 61.2 RATIO (10-20); Calcium,Total 9.1 mg/dL (8.5-10.1); Chloride 111 mmol/L (98-107); Creatinine, Serum 1.03 mg/dL (0.70-1.30); EST Glomerular Filtration Rate 78 mL/min (>60); Est Glom Filt Rate - Afr Amer 95 mL/min (>60); Estimated Creatinine Clearance 74.71 ml/min; Glucose 289 mg/dL (74-106); Potassium 4.7 mmol/L (3.5-5.1); Sodium Level 152 mmol/L (136-145)
[2017-12-23 05:21] LABS: Absolute Lymphocyte Count 0.73 X10^3/ul (0.83-4.51); Absolute Neutrophil Count 6.3 X10^3/uL (2.0-7.7); Eosinophil# 0.01 X10^3/uL; Eosinophils% 0.1 % (0-5); Hematocrit 43.6 % (40-54); Hemoglobin 12.7 g/dl (13.0-16.5); Lymphocyte # 0.73 X10^3/ul (4.0); Lymphocyte % 9.9 % (19-41); Mean Corp Hgb Conc 29.1 g/gl (32-36); Mean Corpuscular Hgb 27.7 pg (27.0-32.0); Mean Corpuscular Volume 95.2 fL (80-94); Mean Platelet Vol. 11.5 fl (6.2-12.0); Monocyte# 0.27 X10^3/uL; Monocyte% 3.7 % (0-10); Neutrophil # 6.33 X10^3/uL (2.7-7.7); Neutrophil % 85.8 % (47-70); POSITIVE COUNT NO; POSITIVE DIFFERENTIAL NO; POSITIVE MORPHOLOGY NO; Platelet Count 209 K/mm3 (150-450); RBC Distribution Width CV 14.9 % (11.6-14.6); RBC Distribution Width SD 50.4 fl (35.1-43.9); Red Blood Count 4.58 M/mm3 (4.6-6.2); White Blood Count 7.4 K/mm3 (4.4-11.0)
[2017-12-23 05:25] LABS: Partial Thromboplast Time 68.8 Seconds (24.1-36.2)
[2017-12-23] MEDS: Insulin Lispro 100 UNIT/ML INSULN.PEN SC ×4 (06:00→18:25)
[2017-12-23 06:11] LABS: Bedside Glucose 278 mg/dL (70-110)
[2017-12-23] MEDS: Albuterol 2.5 MG/3 ML VIAL.NEB. INHALATION ×3 (06:32→18:52)
--- NOTE | 2017-12-23 06:46 | CPS ---
patient was 94% on .75% oxygen at time of visit. patient weaned to .70%
--- NOTE | 2017-12-23 07:08 | CPS ---
patient was 93% on .70% oxygen. patient weaned to .65%. Patients nurse aware.
--- NOTE | 2017-12-23 07:41 | PCM.PN.INT ---
Subjective: Patient self extubated overnight. Patient was successfully reintubated, but nursing has reported suctioning tube feed out of his endotracheal tube following intubation. Patient has had some elevated temperature with decreased blood pressures overnight, but no pressors have been required. Objective: Morning chest x-ray shows a right lower lobe infiltrate. General: - - RASS -1. Appears older than stated age. Good ventilator synchrony. Morbidly obese. HEENT: Atraumatic, PERRLA, EOMI, Normocephalic, - - Slight scleral injection without icterus Oral: Moist Mucosa, No Gingival or Mucosal Lesions/ Ulcerations Neck: Supple, No JVD, No Nodes, Trachea Midline Lungs: No wheeze, No rales, Diminished, Rhonchi - Right base, - - Symmetric expansion. No dullness to percussion. Cardiovascular: Regular rate, Regular Rhythm, Normal S1, Normal S2, No murmurs, No rub noted, No Gallop Abdomen: Bowel Sounds Present, Soft, Non Tender, Non-Distended, Obese Extremities: No cyanosis, No edema, Capillary Refill Less than 3 Seconds, Clubbing Skin: No rashes, No breakdown Musculoskeletal: No Tenderness to Palpation of Joints or Extremities, No Muscle Wasting Lymphatic: No Cervical, Supraclavicular, or Inguinal Adenopathy Neurological: Cranial nerves II-XII grossly intact, Neuro grossly intact, Motor Exam 5/5 strength throughout Psych/Mental Status: Alert and oriented to time, place, person, mood and affect Vital Signs Temp Pulse Resp BP Pulse Ox 37.9 C H 73 14 99/47 L 93 12/23/17 06:00 12/23/17 07:08 12/23/17 07:08 12/23/17 06:00 12/23/17 07:08 Oxygen Flow Rate (L/min) 70 Oxygen Delivery Method Mechanical Ventilator Weight: 142 kg Body Mass Index (BMI) 55.5 Finger Stick Blood Glucose 239 Intake and Output for Last 24 Hours 12/21/17 12/22/17 12/23/17 23:59 23:59 23:59 Intake Total 4753.4 / 4753.4 1445.8 / 1445.8 2169.0 / 2169.0 Output Total 2750 / 2750 2100 / 2100 1400 / 1400 Balance 2003.4 / 2003.4 -654.2 / -654.2 769.0 / 769.0 Labs (Last 48 Hours) 12/21/17 12/21/17 12/21/17 11:08 16:25 17:38 WBC RBC Hgb Hct MCV MCH MCHC RDW RDW Differential Plt Count MPV Immature Gran % (Auto) Neut % (Auto) Lymph % (Auto) [place] % (Auto) Eos % (Auto) Baso % (Auto) Absolute Neuts (auto) Absolute Lymphs (auto) Total Counted APTT 68.8 H Sodium Potassium Chloride Carbon Dioxide Anion Gap BUN Creatinine Estim Creat Clear Calc Est GFR (MDRD) Af Amer Est GFR (MDRD) Non-Af BUN/Creatinine Ratio Glucose Calcium POC Glucose 351 H 252 H 12/21/17 12/21/17 12/21/17 21:42 22:25 23:35 WBC RBC Hgb Hct MCV MCH MCHC RDW RDW Differential Plt Count MPV Immature Gran % (Auto) Neut % (Auto) Lymph % (Auto) [place] % (Auto) Eos % (Auto) Baso % (Auto) Absolute Neuts (auto) Absolute Lymphs (auto) Total Counted APTT 93.0 H* Sodium Potassium Chloride Carbon Dioxide Anion Gap BUN Creatinine Estim Creat Clear Calc Est GFR (MDRD) Af Amer Est GFR (MDRD) Non-Af BUN/Creatinine Ratio Glucose Calcium POC Glucose 239 H 234 H 12/22/17 12/22/17 12/22/17 04:00 04:00 04:00 WBC 7.7 RBC 4.52 L Hgb 12.3 L Hct 42.3 MCV 93.6 MCH 27.2 MCHC 29.1 L RDW 14.9 H RDW Differential 49.3 H Plt Count 244 MPV 10.8 Immature Gran % (Auto) 0.400 Neut % (Auto) 85.6 H Lymph % (Auto) 9.6 L [place] % (Auto) 4.4 Eos % (Auto) 0.0 Baso % (Auto) 0.0 Absolute Neuts (auto) 6.6 Absolute Lymphs (auto) 0.74 L Total Counted Not Reportable APTT 78.0 H Sodium 151 H Potassium 4.1 Chloride 107 Carbon Dioxide 36.0 H Anion Gap 8 BUN 86 H Creatinine 1.21 Estim Creat Clear Calc 63.60 Est GFR (MDRD) Af Amer 79 Est GFR (MDRD) Non-Af 65 BUN/Creatinine Ratio 71.1 H Glucose 274 H Calcium 9.3 POC Glucose 12/22/17 12/22/17 12/22/17 05:45 10:15 13:11 WBC RBC Hgb Hct MCV MCH MCHC RDW RDW Differential Plt Count MPV Immature Gran % (Auto) Neut % (Auto) Lymph % (Auto) [place] % (Auto) Eos % (Auto) Baso % (Auto) Absolute Neuts (auto) Absolute Lymphs (auto) Total Counted APTT 88.6 H Sodium Potassium Chloride Carbon Dioxide Anion Gap BUN Creatinine Estim Creat Clear Calc Est GFR (MDRD) Af Amer Est GFR (MDRD) Non-Af BUN/Creatinine Ratio Glucose Calcium POC Glucose 234 H 268 H 12/22/17 12/22/17 12/22/17 17:15 17:15 23:40 WBC RBC Hgb Hct MCV MCH MCHC RDW RDW Differential Plt Count MPV Immature Gran % (Auto) Neut % (Auto) Lymph % (Auto) [place] % (Auto) Eos % (Auto) Baso % (Auto) Absolute Neuts (auto) Absolute Lymphs (auto) Total Counted APTT 75.1 H 69.6 H Sodium Potassium Chloride Carbon Dioxide Anion Gap BUN Creatinine Estim Creat Clear Calc Est GFR (MDRD) Af Amer Est GFR (MDRD) Non-Af BUN/Creatinine Ratio Glucose Calcium POC Glucose 215 H 12/22/17 12/23/17 12/23/17 23:59 04:10 04:10 WBC 7.4 RBC 4.58 L Hgb 12.7 L Hct 43.6 MCV 95.2 H MCH 27.7 MCHC 29.1 L RDW 14.9 H RDW Differential 50.4 H Plt Count 209 MPV 11.5 Immature Gran % (Auto) 0.500 Neut % (Auto) 85.8 H Lymph % (Auto) 9.9 L [place] % (Auto) 3.7 Eos % (Auto) 0.1 Baso % (Auto) 0.0 Absolute Neuts (auto) 6.3 Absolute Lymphs (auto) 0.73 L Total Counted Not Reportable APTT Sodium 152 H Potassium 4.7 Chloride 111 H Carbon Dioxide 34.0 H Anion Gap 7 BUN 63 H Creatinine 1.03 Estim Creat Clear Calc 74.71 Est GFR (MDRD) Af Amer 95 Est GFR (MDRD) Non-Af 78 BUN/Creatinine Ratio 61.2 H Glucose 289 H Calcium 9.1 POC Glucose 167 H 12/23/17 12/23/17 04:10 05:58 WBC RBC Hgb Hct MCV MCH MCHC RDW RDW Differential Plt Count MPV Immature Gran % (Auto) Neut % (Auto) Lymph % (Auto) [place] % (Auto) Eos % (Auto) Baso % (Auto) Absolute Neuts (auto) Absolute Lymphs (auto) Total Counted APTT 68.8 H Sodium Potassium Chloride Carbon Dioxide Anion Gap BUN Creatinine Estim Creat Clear Calc Est GFR (MDRD) Af Amer Est GFR (MDRD) Non-Af BUN/Creatinine Ratio Glucose Calcium POC Glucose 278 H Microbiology 12/20/17 05:00 Sputum, Induced/Lukens Gram Stain - Final 12/20/17 05:00 Sputum, Induced/Lukens Respiratory Culture - Preliminary Culture exhibits no growth. Clinical Impression(s) from Imaging Studies Chest X-Ray 12/22/17 06:00 IMPRESSION: Increased markings at the lung bases more prominent at the left lung base with blunting of left costophrenic angle. Mild increased markings in the right upper lobe. Follow-up is recommended. The tip of the endotracheal tube is at 5 cm proximal to the byron. Electronically Signed: Akhil Izquierdo MD at 9:46 EST Tel [phone], Service support , Chest X-Ray 12/22/17 11:01 IMPRESSION: 1. Nasogastric tube passes beneath the diaphragm, its tip outside the [id number]. 2. Endotracheal tube unchanged. 3. Improved atelectasis in the right base. Atelectasis on the left is unchanged. 4. Borderline cardiac enlargement. No CHF. Electronically Signed: Brayan Pretty MD at 12:14 EST , Service support , Chest X-Ray 12/22/17 18:29 IMPRESSION: Endotracheal tube ends 4 cm above the byron. Enteric tube is well below the gastroesophageal junction. Stable lung findings with 1 broad platelike area of atelectasis or infiltrate across the left lung base. Electronically Signed: Janessa Combs MD at 22:21 EST , Service support , KUB X-Ray 12/22/17 19:00 IMPRESSION: Orogastric tube placement with tip in gastric body Electronically Signed: Filemon Orona MD at 23:43 EST , Service support , Medical Necessity - Tobacco Use Smoking Status: Current every day smoker Assessment/Plan All Active Problems (Last Updated 12/22/17 @ 08:10 by Juan Manuel Subramanian DO) Heart failure with preserved ejection fraction (Acute) GALILEA (acute kidney injury) (Acute) Klebsiella pneumonia (Acute) Acute respiratory failure with hypoxia and hypercapnia (Acute) Pneumococcal pneumonia (Acute) Metabolic encephalopathy (Resolved) Chest pain (Resolved) Respiratory failure, acute (Resolved) RECOMMENDATIONS: 1. Reinitiate tube feeds and free water flushes 2. Continue IV Solu-Medrol 40 mg every 12 hours and bronchodilators. 3. Wean FiO2 and PEEP as tolerated. 4. Expand antibiotics another 5 days 5. Discussed with guardian about trach/PEG and PICC line 6. Continue current sedation regimen with a goal to maintain a RASS of -1 to 1. 7. Continue empiric heparin drip and Protonix. IMPRESSIONS: 1. Acute on chronic combined respiratory failure Patient was making improvement. However, patient appears to have aspirated with his self extubation given the new right lower lobe infiltrate. Patient does have elevated temperatures at this time and oxygenation is worsening. Do anticipate over the next 24-48 hours that oxygenation could become worse. Given patient is already been intubated for 11 days, it is unlikely that he will be able to be extubated prior to irreversible damage of his trachea. Patient will need a trach and PEG if aggressive measures are to be continued. Will attempt to meet with the guardian later today to discuss plan. If patient is not open to trach and PEG, may attempt optimization over the weekend with possible palliative extubation later next week. 2. Metabolic encephalopathy Likely secondary to acute on chronic CO2 retention. Anticipate improvement with correction of the patient's underlying metabolic derangements. Minimize sedation as tolerated. 3. Decompensated heart failure/history of ischemic cardiomyopathy Patient is likely euvolemic at this time. We will continue to try to keep fluids even. Patient currently receiving free water flushes. Patient will need placement of OG. Will attempt to keep patient at the current weight. 4. Diabetes mellitus Continue Accu-Cheks and sliding scale insulin coverage. The patient has been tolerant of tube feeds to date. Basal insulin has been reinitiated now the patient is back on tube feeds. 5. Obstructive sleep apnea The patient has a history of outpatient noncompliance with the use of nocturnal Pap therapy. He only utilizes supplemental oxygen on a nightly basis. 6. Ongoing tobacco dependence/super morbid obesity/history of medical noncompliance/hypertension Complicates care, management, recovery and prognosis. Nicotine replacement therapy can be utilized while admitted to the hospital. 7. Acute kidney injury Resolved. Likely secondary to overdiuresis. All diuretics have been held for now. Will attempt to keep weight the same. JONE inhibitor will be discontinued. Continue to follow renal function on a daily basis. TIME: 37 minutes of critical care time, independent of procedures, was spent addressing the patient's acute on chronic combined respiratory failure, metabolic encephalopathy, decompensated heart failure, obstructive sleep apnea, review of all data and collaboration with the care team. (5:45 AM to 7:30 AM) Code Visit [id number]: [id number] Critical care first hour
--- NOTE | 2017-12-23 07:44 | CPS ---
patient was 94% on .65%. patient weaned to .60%
--- NOTE | 2017-12-23 07:45 | PN_ITS ---
Subjective: Patient self extubated overnight. Patient was successfully reintubated, but nursing has reported suctioning tube feed out of his endotracheal tube following intubation. Patient has had some elevated temperature with decreased blood pressures overnight, but no pressors have been required. Objective: Morning chest x-ray shows a right lower lobe infiltrate. General: - - RASS -1. Appears older than stated age. Good ventilator synchrony. Morbidly obese. HEENT: Atraumatic, PERRLA, EOMI, Normocephalic, - - Slight scleral injection without icterus Oral: Moist Mucosa, No Gingival or Mucosal Lesions/ Ulcerations Neck: Supple, No JVD, No Nodes, Trachea Midline Lungs: No wheeze, No rales, Diminished, Rhonchi - Right base, - - Symmetric expansion. No dullness to percussion. Cardiovascular: Regular rate, Regular Rhythm, Normal S1, Normal S2, No murmurs, No rub noted, No Gallop Abdomen: Bowel Sounds Present, Soft, Non Tender, Non-Distended, Obese Extremities: No cyanosis, No edema, Capillary Refill Less than 3 Seconds, Clubbing Skin: No rashes, No breakdown Musculoskeletal: No Tenderness to Palpation of Joints or Extremities, No Muscle Wasting Lymphatic: No Cervical, Supraclavicular, or Inguinal Adenopathy Neurological: Cranial nerves II-XII grossly intact, Neuro grossly intact, Motor Exam 5/5 strength throughout Psych/Mental Status: Alert and oriented to time, place, person, mood and affect Vital Signs Temp Pulse Resp BP Pulse Ox 37.9 C H 73 14 99/47 L 93 12/23/17 06:00 12/23/17 07:08 12/23/17 07:08 12/23/17 06:00 12/23/17 07:08 Oxygen Flow Rate (L/min) 70 Oxygen Delivery Method Mechanical Ventilator Weight: 142 kg Body Mass Index (BMI) 55.5 Finger Stick Blood Glucose 239 Intake and Output for Last 24 Hours 12/21/17 12/22/17 12/23/17 23:59 23:59 23:59 Intake Total 4753.4 / 4753.4 1445.8 / 1445.8 2169.0 / 2169.0 Output Total 2750 / 2750 2100 / 2100 1400 / 1400 Balance 2003.4 / 2003.4 -654.2 / -654.2 769.0 / 769.0 Labs (Last 48 Hours) 12/21/17 12/21/17 12/21/17 11:08 16:25 17:38 WBC RBC Hgb Hct MCV MCH MCHC RDW RDW Differential Plt Count MPV Immature Gran % (Auto) Neut % (Auto) Lymph % (Auto) [place] % (Auto) Eos % (Auto) Baso % (Auto) Absolute Neuts (auto) Absolute Lymphs (auto) Total Counted APTT 68.8 H Sodium Potassium Chloride Carbon Dioxide Anion Gap BUN Creatinine Estim Creat Clear Calc Est GFR (MDRD) Af Amer Est GFR (MDRD) Non-Af BUN/Creatinine Ratio Glucose Calcium POC Glucose 351 H 252 H 12/21/17 12/21/17 12/21/17 21:42 22:25 23:35 WBC RBC Hgb Hct MCV MCH MCHC RDW RDW Differential Plt Count MPV Immature Gran % (Auto) Neut % (Auto) Lymph % (Auto) [place] % (Auto) Eos % (Auto) Baso % (Auto) Absolute Neuts (auto) Absolute Lymphs (auto) Total Counted APTT 93.0 H* Sodium Potassium Chloride Carbon Dioxide Anion Gap BUN Creatinine Estim Creat Clear Calc Est GFR (MDRD) Af Amer Est GFR (MDRD) Non-Af BUN/Creatinine Ratio Glucose Calcium POC Glucose 239 H 234 H 12/22/17 12/22/17 12/22/17 04:00 04:00 04:00 WBC 7.7 RBC 4.52 L Hgb 12.3 L Hct 42.3 MCV 93.6 MCH 27.2 MCHC 29.1 L RDW 14.9 H RDW Differential 49.3 H Plt Count 244 MPV 10.8 Immature Gran % (Auto) 0.400 Neut % (Auto) 85.6 H Lymph % (Auto) 9.6 L [place] % (Auto) 4.4 Eos % (Auto) 0.0 Baso % (Auto) 0.0 Absolute Neuts (auto) 6.6 Absolute Lymphs (auto) 0.74 L Total Counted Not Reportable APTT 78.0 H Sodium 151 H Potassium 4.1 Chloride 107 Carbon Dioxide 36.0 H Anion Gap 8 BUN 86 H Creatinine 1.21 Estim Creat Clear Calc 63.60 Est GFR (MDRD) Af Amer 79 Est GFR (MDRD) Non-Af 65 BUN/Creatinine Ratio 71.1 H Glucose 274 H Calcium 9.3 POC Glucose 12/22/17 12/22/17 12/22/17 05:45 10:15 13:11 WBC RBC Hgb Hct MCV MCH MCHC RDW RDW Differential Plt Count MPV Immature Gran % (Auto) Neut % (Auto) Lymph % (Auto) [place] % (Auto) Eos % (Auto) Baso % (Auto) Absolute Neuts (auto) Absolute Lymphs (auto) Total Counted APTT 88.6 H Sodium Potassium Chloride Carbon Dioxide Anion Gap BUN Creatinine Estim Creat Clear Calc Est GFR (MDRD) Af Amer Est GFR (MDRD) Non-Af BUN/Creatinine Ratio Glucose Calcium POC Glucose 234 H 268 H 12/22/17 12/22/17 12/22/17 17:15 17:15 23:40 WBC RBC Hgb Hct MCV MCH MCHC RDW RDW Differential Plt Count MPV Immature Gran % (Auto) Neut % (Auto) Lymph % (Auto) [place] % (Auto) Eos % (Auto) Baso % (Auto) Absolute Neuts (auto) Absolute Lymphs (auto) Total Counted APTT 75.1 H 69.6 H Sodium Potassium Chloride Carbon Dioxide Anion Gap BUN Creatinine Estim Creat Clear Calc Est GFR (MDRD) Af Amer Est GFR (MDRD) Non-Af BUN/Creatinine Ratio Glucose Calcium POC Glucose 215 H 12/22/17 12/23/17 12/23/17 23:59 04:10 04:10 WBC 7.4 RBC 4.58 L Hgb 12.7 L Hct 43.6 MCV 95.2 H MCH 27.7 MCHC 29.1 L RDW 14.9 H RDW Differential 50.4 H Plt Count 209 MPV 11.5 Immature Gran % (Auto) 0.500 Neut % (Auto) 85.8 H Lymph % (Auto) 9.9 L [place] % (Auto) 3.7 Eos % (Auto) 0.1 Baso % (Auto) 0.0 Absolute Neuts (auto) 6.3 Absolute Lymphs (auto) 0.73 L Total Counted Not Reportable APTT Sodium 152 H Potassium 4.7 Chloride 111 H Carbon Dioxide 34.0 H Anion Gap 7 BUN 63 H Creatinine 1.03 Estim Creat Clear Calc 74.71 Est GFR (MDRD) Af Amer 95 Est GFR (MDRD) Non-Af 78 BUN/Creatinine Ratio 61.2 H Glucose 289 H Calcium 9.1 POC Glucose 167 H 12/23/17 12/23/17 04:10 05:58 WBC RBC Hgb Hct MCV MCH MCHC RDW RDW Differential Plt Count MPV Immature Gran % (Auto) Neut % (Auto) Lymph % (Auto) [place] % (Auto) Eos % (Auto) Baso % (Auto) Absolute Neuts (auto) Absolute Lymphs (auto) Total Counted APTT 68.8 H Sodium Potassium Chloride Carbon Dioxide Anion Gap BUN Creatinine Estim Creat Clear Calc Est GFR (MDRD) Af Amer Est GFR (MDRD) Non-Af BUN/Creatinine Ratio Glucose Calcium POC Glucose 278 H Microbiology 12/20/17 05:00 Sputum, Induced/Lukens Gram Stain - Final 12/20/17 05:00 Sputum, Induced/Lukens Respiratory Culture - Preliminary Culture exhibits no growth. Clinical Impression(s) from Imaging Studies Chest X-Ray 12/22/17 06:00 IMPRESSION: Increased markings at the lung bases more prominent at the left lung base with blunting of left costophrenic angle. Mild increased markings in the right upper lobe. Follow-up is recommended. The tip of the endotracheal tube is at 5 cm proximal to the byron. Electronically Signed: Akhil Izquierdo MD at 9:46 EST Tel [phone], Service support , Chest X-Ray 12/22/17 11:01 IMPRESSION: 1. Nasogastric tube passes beneath the diaphragm, its tip outside the [id number]. 2. Endotracheal tube unchanged. 3. Improved atelectasis in the right base. Atelectasis on the left is unchanged. 4. Borderline cardiac enlargement. No CHF. Electronically Signed: Brayan Pretty MD at 12:14 EST , Service support , Chest X-Ray 12/22/17 18:29 IMPRESSION: Endotracheal tube ends 4 cm above the byron. Enteric tube is well below the gastroesophageal junction. Stable lung findings with 1 broad platelike area of atelectasis or infiltrate across the left lung base. Electronically Signed: Janessa Combs MD at 22:21 EST , Service support , KUB X-Ray 12/22/17 19:00 IMPRESSION: Orogastric tube placement with tip in gastric body Electronically Signed: Filemon Orona MD at 23:43 EST , Service support , Medical Necessity - Tobacco Use Smoking Status: Current every day smoker Assessment/Plan All Active Problems (Last Updated 12/22/17 @ 08:10 by Juan Manuel Subramanian DO) Heart failure with preserved ejection fraction (Acute) GALILEA (acute kidney injury) (Acute) Klebsiella pneumonia (Acute) Acute respiratory failure with hypoxia and hypercapnia (Acute) Pneumococcal pneumonia (Acute) Metabolic encephalopathy (Resolved) Chest pain (Resolved) Respiratory failure, acute (Resolved) RECOMMENDATIONS: 1. Reinitiate tube feeds and free water flushes 2. Continue IV Solu-Medrol 40 mg every 12 hours and bronchodilators. 3. Wean FiO2 and PEEP as tolerated. 4. Expand antibiotics another 5 days 5. Discussed with guardian about trach/PEG and PICC line 6. Continue current sedation regimen with a goal to maintain a RASS of -1 to 1. 7. Continue empiric heparin drip and Protonix. IMPRESSIONS: 1. Acute on chronic combined respiratory failure Patient was making improvement. However, patient appears to have aspirated with his self extubation given the new right lower lobe infiltrate. Patient does have elevated temperatures at this time and oxygenation is worsening. Do anticipate over the next 24-48 hours that oxygenation could become worse. Given patient is already been intubated for 11 days, it is unlikely that he will be able to be extubated prior to irreversible damage of his trachea. Patient will need a trach and PEG if aggressive measures are to be continued. Will attempt to meet with the guardian later today to discuss plan. If patient is not open to trach and PEG, may attempt optimization over the weekend with possible palliative extubation later next week. 2. Metabolic encephalopathy Likely secondary to acute on chronic CO2 retention. Anticipate improvement with correction of the patient's underlying metabolic derangements. Minimize sedation as tolerated. 3. Decompensated heart failure/history of ischemic cardiomyopathy Patient is likely euvolemic at this time. We will continue to try to keep fluids even. Patient currently receiving free water flushes. Patient will need placement of OG. Will attempt to keep patient at the current weight. 4. Diabetes mellitus Continue Accu-Cheks and sliding scale insulin coverage. The patient has been tolerant of tube feeds to date. Basal insulin has been reinitiated now the patient is back on tube feeds. 5. Obstructive sleep apnea The patient has a history of outpatient noncompliance with the use of nocturnal Pap therapy. He only utilizes supplemental oxygen on a nightly basis. 6. Ongoing tobacco dependence/super morbid obesity/history of medical noncompliance/hypertension Complicates care, management, recovery and prognosis. Nicotine replacement therapy can be utilized while admitted to the hospital. 7. Acute kidney injury Resolved. Likely secondary to overdiuresis. All diuretics have been held for now. Will attempt to keep weight the same. JONE inhibitor will be dis continued. Continue to follow renal function on a daily basis. TIME: 37 minutes of critical care time, independent of procedures, was spent addressing the patient's acute on chronic combined respiratory failure, metabolic encephalopathy, decompensated heart failure, obstructive sleep apnea, review of all data and collaboration with the care team. (5:45 AM to 7:30 AM) Code Visit [id number]: [id number] Critical care first hour
[2017-12-23] MEDS: fentaNYL drip 100 ML 5 MCG IV (08:28)
--- NOTE | 2017-12-23 08:29 | CPS ---
Addendum entered by Ruiz Caldwell 12/23/17 08:31: Original Note: Addendum entered by Ruiz Caldwell 12/23/17 08:30: PATIENT WAS 94% ON .60. Patient weaned to .55. Original Note: Addendum entered by Ruiz Caldwell 12/23/17 08:30: Original Note: patient was 94% on .65%. Patient weaned to .60.
[2017-12-23 08:39] LABS: Mucous, Urine 0 SEEN /hpf (<or=2+); Red Blood Cells-Urine 0 SEEN /hpf (0-5); Squamous Epithelial Cells - UA 0 SEEN /hpf (0-5)
[2017-12-23] MEDS: 0.9% NaCl Peripheral Flush Adult/Peds IV ×3 (08:42→21:37)
[2017-12-23 08:46] LABS: Color, Urine Yellow (Yellow); Glucose, Dipstick Normal (Normal); Ketone-Dipstick Negative (Negative); Leukocyte Esterase-Dipstick 25 /ul (Negative); Nitrite-Dipstick Negative (Negative); Occult Blood-Urine Negative /ul (Negative); Protein-Dipstick Negative (Negative); Specific Gravity, Urine 1.015 (1.002-1.030); Urine Bilirubin Dipstick Negative (Negative); Urine Clarity Sl. Cloudy (Clear); Urine Urobilinogen Normal (Normal)
[2017-12-23 08:57] LABS: Bacteria RARE /hpf (None Seen); White Blood Cells 0-5 SEEN /hpf (0-5)
--- NOTE | 2017-12-23 09:05 | PCM.PN.HOSP ---
Patient Problems: Active and Suspected Problems (Last Updated 12/22/17 @ 08:10 by Juan Manuel Subramanian DO) Heart failure with preserved ejection fraction (Acute) GALILEA (acute kidney injury) (Acute) Klebsiella pneumonia (Acute) Acute respiratory failure with hypoxia and hypercapnia (Acute) Pneumococcal pneumonia (Acute) Subjective: Increased FiO2 requirements. Self extubated himself yesterday. Vitals/I&O's: Vital Signs Temp Pulse Resp BP Pulse Ox 37.9 C H 75 14 96/47 L 94 12/23/17 08:00 12/23/17 08:28 12/23/17 08:28 12/23/17 08:00 12/23/17 08:28 Oxygen Flow Rate (L/min) 70 Oxygen Delivery Method Mechanical Ventilator Weight: 142 kg Body Mass Index (BMI) 55.5 Finger Stick Blood Glucose 239 Intake and Output for Last 24 Hours 12/21/17 12/22/17 12/23/17 23:59 23:59 23:59 Intake Total 4753.4 / 4753.4 1445.8 / 1445.8 2169.0 / 2169.0 Output Total 2750 / 2750 2100 / 2100 1400 / 1400 Balance 2003.4 / 2003.4 -654.2 / -654.2 769.0 / 769.0 General: - - somnolent. afebrile. HEENT: Atraumatic, Normocephalic Oral: - - ETT, OG inplace. Neck: No Nodes, Thyroid Normal Size and Texture Lungs: Diminished, - - coarse breath sounds Cardiovascular: Regular rate, Regular Rhythm, Normal S1, Normal S2 Abdomen: Bowel Sounds Present, Soft, Non Tender, Non-Distended, Obese Extremities: No edema, No Calf Tenderness Skin: - - venous stasis derm Musculoskeletal: No Tenderness to Palpation of Joints or Extremities, No Muscle Wasting Neurological: Neuro grossly intact, Muscle tone normal Psych/Mental Status: - Microbiology Past 72 Hours 12/20/17 05:00 Sputum, Induced/Lukens Gram Stain - Final 12/20/17 05:00 Sputum, Induced/Lukens Respiratory Culture - Preliminary Culture exhibits no growth. Laboratory Results 12/22/17 10:15: APTT 88.6 H 12/22/17 13:11: POC Glucose 268 H 12/22/17 17:15: APTT 75.1 H 12/22/17 17:15: POC Glucose 215 H 12/22/17 23:40: APTT 69.6 H 12/22/17 23:59: POC Glucose 167 H 12/23/17 04:10: WBC 7.4, RBC 4.58 L, Hgb 12.7 L, Hct 43.6, MCV 95.2 H, MCH 27.7, MCHC 29.1 L, RDW 14.9 H, RDW Differential 50.4 H, Plt Count 209, MPV 11.5, Immature Gran % (Auto) 0.500, Neut % (Auto) 85.8 H, Lymph % (Auto) 9.9 L, [place] % (Auto) 3.7, Eos % (Auto) 0.1, Baso % (Auto) 0.0, Absolute Neuts (auto) 6.3, Absolute Lymphs (auto) 0.73 L, Total Counted Not Reportable 12/23/17 04:10: Sodium 152 H, Potassium 4.7, Chloride 111 H, Carbon Dioxide 34.0 H, Anion Gap 7, BUN 63 H, Creatinine 1.03, Estim Creat Clear Calc 74.71, Est GFR (MDRD) Af Amer 95, Est GFR (MDRD) Non-Af 78, BUN/Creatinine Ratio 61.2 H, Glucose 289 H, Calcium 9.1 12/23/17 04:10: APTT 68.8 H 12/23/17 05:58: POC Glucose 278 H 12/23/17 08:30: Urine Color Yellow, Urine Clarity Sl. Cloudy, Urine pH 6.0, Ur Specific [place] 1.015, Urine Protein Negative, Urine Glucose (UA) Normal, Urine Ketones Negative, Urine Occult Blood Negative, Urine Nitrite Negative, Urine Bilirubin Negative, Urine Urobilinogen Normal, Ur Leukocyte Esterase 25 H, Urine RBC 0 SEEN, Urine WBC 0-5 SEEN, Ur Squamous Epith Cells 0 SEEN, Urine Bacteria RARE, Urine Mucus 0 SEEN Current Medications Acetaminophen (Tylenol Liquid) 650 mg GT Q6H PRN PRN PRN Reason: FEVER Albuterol Sulfate (Ventolin Aerosols) 2.5 mg INHALATION Q6HWA.RT JUANY Last Admin: 12/23/17 06:32 Dose: 2.5 mg Aspirin (Aspirin, Baby) 81 mg GT DAILY [facility] Last Admin: 12/22/17 14:13 Dose: 81 mg Atorvastatin Calcium (Lipitor) 40 mg GT QHS [facility] Last Admin: 12/22/17 22:33 Dose: 40 mg Chlorhexidine Gluconate () 15 ml PO BID [facility] Last Admin: 12/22/17 22:26 Dose: 15 ml Clopidogrel Bisulfate (Plavix) 75 mg GT DAILY [facility] Last Admin: 12/22/17 14:13 Dose: 75 mg Dextrose (D50w Syringe) 0 gm IV X1 PRN; Protocol PRN Reason: Hypoglycemia Famotidine (Pepcid) 20 mg GT BID [facility] Last Admin: 12/22/17 22:33 Dose: 20 mg Furosemide (Lasix) 20 mg IV BID@1000,1800 [facility] Last Admin: 12/22/17 17:24 Dose: 20 mg Glucagon () 1 mg IM .X1 PRN PRN Reason: Hypoglycemia Heparin Sodium (Porcine) (Heparin Na) 0 unit IV UD PRN; Protocol Sodium Chloride () 250 mls @ 15 mls/hr IV .[id number] PRN PRN Reason: SALINE FLUSH Sodium Chloride () 250 mls @ 15 mls/hr IV .[id number] PRN PRN Reason: SALINE FLUSH Last Admin: 12/16/17 21:29 Dose: 15 mls/hr Fentanyl () 100 mls @ 5 mls/hr IV .Q20H [facility] Last Admin: 12/23/17 08:28 Dose: 5 mls/hr Sodium Chloride () 1,000 mls @ 0 mls/hr IV .Q0M [facility] Levofloxacin (Levaquin Iv) 750 mg in 150 mls @ 100 mls/hr IV Q24 [facility] Stop: 12/23/17 11:29 Last Admin: 12/22/17 11:08 Dose: 100 mls/hr Metronidazole (Flagyl) 500 mg in 100 mls @ 100 mls/hr IV Q8 [facility] Stop: 12/23/17 22:59 Last Admin: 12/23/17 06:00 Dose: 100 mls/hr Propofol (Diprivan) 1,000 mg in 100 mls @ 9.852 mls/hr CONT INF .[id number] [facility] Last Admin: 12/23/17 03:20 Dose: 9.852 mls/hr Heparin Sodium/Dextrose () 25,000 units in 250 mls @ 18 mls/hr IV .[id number] [facility]; Protocol Last Admin: 12/23/17 03:27 Dose: Not Given Enteral Nutritional Formula (Glucerna 1.5) 1,000 mls @ 55 mls/hr GT .[id number] [facility] Last Admin: 12/23/17 00:48 Dose: Not Given Insulin Glargine (Lantus (Bk)) 35 units SC BID [facility] Last Admin: 12/23/17 00:01 Dose: 35 u Insulin Human Lispro (Humalog Kwikpen (Bk)) 0 unit SC Q6 [facility]; Protocol Last Admin: 12/23/17 06:00 Dose: 9 u Magnesium Hydroxide (Milk Of Magnesia) 30 ml PO DAILY PRN PRN PRN Reason: Constipation Methylprednisolone (Solu-Medrol) 40 mg IV Q12 [facility] Last Admin: 12/22/17 22:26 Dose: 40 mg Polyethylene Glycol (Miralax) 17 gm GT DAILY PRN PRN PRN Reason: Constipation Potassium Bicarb/Potassium Chloride (Potassium Chl 25 Meq Eff (For Liquid)) 25 meq GT BID [facility] Last Admin: 12/22/17 22:33 Dose: 25 meq Sodium Chloride () 5 - 30 ml IV UD PRN PRN Reason: SALINE FLUSH Last Admin: 12/23/17 08:42 Dose: 20 ml Medical Necessity - Tobacco Use Smoking Status: Current every day smoker Assessment/Plan All Active Problems (Last Updated 12/22/17 @ 08:10 by Juan Manuel Subramanian DO) Heart failure with preserved ejection fraction (Acute) GALILEA (acute kidney injury) (Acute) Klebsiella pneumonia (Acute) Acute respiratory failure with hypoxia and hypercapnia (Acute) Pneumococcal pneumonia (Acute) Metabolic encephalopathy (Resolved) Chest pain (Resolved) Respiratory failure, acute (Resolved) 1. Acute hypoxic and hypercapnic respiratory failure. worse after self-extubation new RUL infiltrate multifactorial: PNA, CHF, aspiration pneumonitis, EMILIA, obesity hypoventilation wean oxygen as tolerated CCM mgmt appreciated BDs and steroid trach and PEG if fails to progress on empiric heparin for possible VTE 2. Pneumococcal and Klebsiella Pneumonia: on Levaquin through the 3. HFpEF EF 60% from echo 12/12 lasix stopped due to GALILEA ACEi stopped due to GALILEA 4. Fevers ongoing low grade, up to 37.7 at 2000 on 12/21 had been persistent since admission BCx on 5th negative TTE on the 5th negative UA, UCx negative other than sputum cultures, infectious work up has been negative schedule acetaminophen reapeat bcx and UA 5. GALILEA improved likely due to overdiuresis monitor lasix and lisinopril stopped 6. DM2 uncontrolled LANTUS 35 BID consider insulin gtt to keep MBS < 200 in a critically ill patient 7. DVT proph: SQ heparin Code Visit Inpatient E&M: 09336 Subs Hosp L3
--- NOTE | 2017-12-23 09:15 | PN_ITS ---
Patient Problems: Active and Suspected Problems (Last Updated 12/22/17 @ 08:10 by Juan Manuel Subramanian DO) Heart failure with preserved ejection fraction (Acute) GALILEA (acute kidney injury) (Acute) Klebsiella pneumonia (Acute) Acute respiratory failure with hypoxia and hypercapnia (Acute) Pneumococcal pneumonia (Acute) Subjective: Increased FiO2 requirements. Self extubated himself yesterday. Vitals/I&O's: Vital Signs Temp Pulse Resp BP Pulse Ox 37.9 C H 75 14 96/47 L 94 12/23/17 08:00 12/23/17 08:28 12/23/17 08:28 12/23/17 08:00 12/23/17 08:28 Oxygen Flow Rate (L/min) 70 Oxygen Delivery Method Mechanical Ventilator Weight: 142 kg Body Mass Index (BMI) 55.5 Finger Stick Blood Glucose 239 Intake and Output for Last 24 Hours 12/21/17 12/22/17 12/23/17 23:59 23:59 23:59 Intake Total 4753.4 / 4753.4 1445.8 / 1445.8 2169.0 / 2169.0 Output Total 2750 / 2750 2100 / 2100 1400 / 1400 Balance 2003.4 / 2003.4 -654.2 / -654.2 769.0 / 769.0 General: - - somnolent. afebrile. HEENT: Atraumatic, Normocephalic Oral: - - ETT, OG inplace. Neck: No Nodes, Thyroid Normal Size and Texture Lungs: Diminished, - - coarse breath sounds Cardiovascular: Regular rate, Regular Rhythm, Normal S1, Normal S2 Abdomen: Bowel Sounds Present, Soft, Non Tender, Non-Distended, Obese Extremities: No edema, No Calf Tenderness Skin: - - venous stasis derm Musculoskeletal: No Tenderness to Palpation of Joints or Extremities, No Muscle Wasting Neurological: Neuro grossly intact, Muscle tone normal Psych/Mental Status: - Microbiology Past 72 Hours 12/20/17 05:00 Sputum, Induced/Lukens Gram Stain - Final 12/20/17 05:00 Sputum, Induced/Lukens Respiratory Culture - Preliminary Culture exhibits no growth. Laboratory Results 12/22/17 10:15: APTT 88.6 H 12/22/17 13:11: POC Glucose 268 H 12/22/17 17:15: APTT 75.1 H 12/22/17 17:15: POC Glucose 215 H 12/22/17 23:40: APTT 69.6 H 12/22/17 23:59: POC Glucose 167 H 12/23/17 04:10: WBC 7.4, RBC 4.58 L, Hgb 12.7 L, Hct 43.6, MCV 95.2 H, MCH 27.7, MCHC 29.1 L, RDW 14.9 H, RDW Differential 50.4 H, Plt Count 209, MPV 11.5, Immature Gran % (Auto) 0.500, Neut % (Auto) 85.8 H, Lymph % (Auto) 9.9 L, [place] % (Auto) 3.7, Eos % (Auto) 0.1, Baso % (Auto) 0.0, Absolute Neuts (auto) 6.3, Absolute Lymphs (auto) 0.73 L, Total Counted Not Reportable 12/23/17 04:10: Sodium 152 H, Potassium 4.7, Chloride 111 H, Carbon Dioxide 34.0 H, Anion Gap 7, BUN 63 H, Creatinine 1.03, Estim Creat Clear Calc 74.71, Est GFR (MDRD) Af Amer 95, Est GFR (MDRD) Non-Af 78, BUN/Creatinine Ratio 61.2 H, Glucose 289 H, Calcium 9.1 12/23/17 04:10: APTT 68.8 H 12/23/17 05:58: POC Glucose 278 H 12/23/17 08:30: Urine Color Yellow, Urine Clarity Sl. Cloudy, Urine pH 6.0, Ur Specific [place] 1.015, Urine Protein Negative, Urine Glucose (UA) Normal, Urine Ketones Negative, Urine Occult Blood Negative, Urine Nitrite Negative, Urine Arturo irubin Negative, Urine Urobilinogen Normal, Ur Leukocyte Esterase 25 H, Urine RBC 0 SEEN, Urine WBC 0-5 SEEN, Ur Squamous Epith Cells 0 SEEN, Urine Bacteria RARE, Urine Mucus 0 SEEN Current Medications Acetaminophen (Tylenol Liquid) 650 mg GT Q6H PRN PRN PRN Reason: FEVER Albuterol Sulfate (Ventolin Aerosols) 2.5 mg INHALATION Q6HWA.RT JUANY Last Admin: 12/23/17 06:32 Dose: 2.5 mg Aspirin (Aspirin, Baby) 81 mg GT DAILY JUANY Last Admin: 12/22/17 14:13 Dose: 81 mg Atorvastatin Calcium (Lipitor) 40 mg GT QHS [facility] Last Admin: 12/22/17 22:33 Dose: 40 mg Chlorhexidine Gluconate () 15 ml PO BID [facility] Last Admin: 12/22/17 22:26 Dose: 15 ml Clopidogrel Bisulfate (Plavix) 75 mg GT DAILY [facility] Last Admin: 12/22/17 14:13 Dose: 75 mg Dextrose (D50w Syringe) 0 gm IV X1 PRN; Protocol PRN Reason: Hypoglycemia Famotidine (Pepcid) 20 mg GT BID [facility] Last Admin: 12/22/17 22:33 Dose: 20 mg Furosemide (Lasix) 20 mg IV BID@1000,1800 [facility] Last Admin: 12/22/17 17:24 Dose: 20 mg Glucagon () 1 mg IM .X1 PRN PRN Reason: Hypoglycemia Heparin Sodium (Porcine) (Heparin Na) 0 unit IV UD PRN; Protocol Sodium Chloride () 250 mls @ 15 mls/hr IV .[id number] PRN PRN Reason: SALINE FLUSH Sodium Chloride () 250 mls @ 15 mls/hr IV .[id number] PRN PRN Reason: SALINE FLUSH Last Admin: 12/16/17 21:29 Dose: 15 mls/hr Fentanyl () 100 mls @ 5 mls/hr IV .Q20H [facility] Last Admin: 12/23/17 08:28 Dose: 5 mls/hr Sodium Chloride () 1,000 mls @ 0 mls/hr IV .Q0M [facility] Levofloxacin (Levaquin Iv) 750 mg in 150 mls @ 100 mls/hr IV Q24 [facility] Stop: 12/23/17 11:29 Last Admin: 12/22/17 11:08 Dose: 100 mls/hr Metronidazole (Flagyl) 500 mg in 100 mls @ 100 mls/hr IV Q8 [facility] Stop: 12/23/17 22:59 Last Admin: 12/23/17 06:00 Dose: 100 mls/hr Propofol (Diprivan) 1,000 mg in 100 mls @ 9.852 mls/hr CONT INF .[id number] [facility] Last Admin: 12/23/17 03:20 Dose: 9.852 mls/hr Heparin Sodium/Dextrose () 25,000 units in 250 mls @ 18 mls/hr IV .[id number] [facility]; Protocol Last Admin: 12/23/17 03:27 Dose: Not Given Enteral Nutritional Formula (Glucerna 1.5) 1,000 mls @ 55 mls/hr GT .[id number] [facility] Last Admin: 12/23/17 00:48 Dose: Not Given Insulin Glargine (Lantus (Bk)) 35 units SC BID [facility] Last Admin: 12/23/17 00:01 Dose: 35 u Insulin Human Lispro (Humalog Kwikpen (Bk)) 0 unit SC Q6 [facility]; Protocol Last Admin: 12/23/17 06:00 Dose: 9 u Magnesium Hydroxide (Milk Of Magnesia) 30 ml PO DAILY PRN PRN PRN Reason: Constipation Methylprednisolone (Solu-Medrol) 40 mg IV Q12 [facility] Last Admin: 12/22/17 22:26 Dose: 40 mg Polyethylene Glycol (Miralax) 17 gm GT DAILY PRN PRN PRN Reason: Constipation Potassium Bicarb/Potassium Chloride (Potassium Chl 25 Meq Eff (For Liquid)) 25 meq GT BID [facility] Last Admin: 12/22/17 22:33 Dose: 25 meq Sodium Chloride () 5 - 30 ml IV UD PRN PRN Reason: SALINE FLUSH Last Admin: 12/23/17 08:42 Dose: 20 ml Medical Necessity - Tobacco Use Smoking Status: Current every day smoker Assessment/Plan All Active Problems (Last Updated 12/22/17 @ 08:10 by Juan Manuel Subramanian DO) Heart failure with preserved ejection fraction (Acute) GALILEA (acute kidney injury) (Acute) Klebsiella pneumonia (Acute) Acute respiratory failure with hypoxia and hypercapnia (Acute) Pneumococcal pneumonia (Acute) Metabolic encephalopathy (Resolved) Chest pain (Resolved) Respiratory failure, acute (Resolved) 1. Acute hypoxic and hypercapnic respiratory failure. * worse after self-extubation * new RUL infiltrate * multifactorial: PNA, CHF, aspiration pneumonitis, EMILIA, obesity hypoventilation * wean oxygen as tolerated * CCM mgmt appreciated * BDs and steroid * trach and PEG if fails to progress * on empiric heparin for possible VTE 2. Pneumococcal and Klebsiella Pneumonia: * on Levaquin through the 3. HFpEF * EF 60% from echo 12/12 * lasix stopped due to GALILEA * ACEi stopped due to GALILEA 4. Fevers * ongoing * low grade, up to 37.7 at 1999 on 12/21 * had been persistent since admission * BCx on 5th negative * TTE on the 5th negative * UA, UCx negative * other than sputum cultures, infectious work up has been negative * schedule acetaminophen * reapeat bcx and UA 5. GALILEA * improved * likely due to overdiuresis * monitor * lasix and lisinopril stopped 6. DM2 * uncontrolled * LANTUS 35 BID * consider insulin gtt to keep MBS < 200 in a critically ill patient 7. DVT proph: SQ heparin Code Visit Inpatient E&M: 90246 Subs Hosp L3
--- NOTE | 2017-12-23 09:29 | CASEMGMT ---
SW participated in ICU rounds, pt remains on the ventilator this morning. Physician plans to speak w/pt's POA regarding plan going forward. BUDDY Cowart, PATHOLOGY TEACHER
[2017-12-23] MEDS: Famotidine 20 MG Tablet GT ×2 (10:17→21:35)
[2017-12-23] MEDS: Furosemide 20 MG/2 ML VIAL IV ×2 (10:17→18:24)
[2017-12-23] MEDS: Clopidogrel Bisulfate 75 MG Tablet GT (10:17)
[2017-12-23] MEDS: Aspirin 81 MG TAB.CHEW GT (10:17)
--- NOTE | 2017-12-23 10:17 | CPS ---
patient was 97% on .55% at time of visit. Patient weaned to .50%.
[2017-12-23] MEDS: Chlorhexidine 15 ML PO ×2 (10:18→21:33)
[2017-12-23] MEDS: Acetaminophen 650 MG/20 ML UDC GT (10:22)
[2017-12-23] MEDS: HEPARIN/D5w 25,000 UNITS 25,000 UNITS/250 ML IV.SOLN. 18 UNITS IV (10:37)
[2017-12-23] MEDS: levoFLOXacin IV 750 MG/150 ML BAG 100 MG IV (10:37)
--- NOTE | 2017-12-23 11:42 | CPS ---
Patient was 91% on .50%.
[2017-12-23 12:45] LABS: Bedside Glucose 217 mg/dL (70-110)
--- NOTE | 2017-12-23 13:22 | CPS ---
rt at bedside with physical therapy and nursing. patient moved and sat at side of bed. Patients sp02 was 90% on .50% peep 14 setting. post therapy bilateral breath sounds noted. patients sp02 is 91%/. patients tv is 459. no adverse reaction noted.
--- NOTE | 2017-12-23 14:22 | CPS ---
Rt called by nursing due to low sp02. At time of visit patient was 87% on .50%. Patient increased to .55%. Patient increased to 89%. Patient increased to .60%. Patient increased to 92%.
--- NOTE | 2017-12-23 15:17 | CPS ---
Patient was 93% on .60%, peep 14. Heater in use with water bag 1/2 full at time of visit.
--- NOTE | 2017-12-23 16:55 | CPS ---
patient was 92% on .60% oxygen via ventilator.
--- NOTE | 2017-12-23 17:31 | PCM.PN.BLA ---
Progress Note Asked to see the patient at the request of Dr. Campos for tracheotomy placement HPI 57 yo white male was intubated 12/12/17 for acute on chronic respiratory failure due in large part to CHF. He has pneumonia and questionable aspiration now making his respiratory status worse. Extubation is not anticipated any time soon and prolonged intubation/ventilatory wean is anticipated. 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/12) History of cardiac arrest (Chronic 06/22/17) Hypersomnia (Chronic) EMILIA (obstructive sleep apnea) (Chronic) History of cardiac catheterization (Chronic 02/25/16) 05/03/12 @ [facility] per [facility]; 02/21/2014 per DJN @ [facility] (no stents needed); 02/23 16 per DJN @ [facility] prior to PCI and GISSEL to proximal LAD; 06/28/17 after cardiac arrest, prior to GISSEL of mid LCX Nicotine dependence, cigarettes, uncomplicated (Chronic) Chronic systolic congestive heart failure (Chronic) Presence of stent in coronary artery (Chronic 06/29/17) PCI/stent LAD w/ 4.0 x 32 mm Promus 2012 ; PCI/GISSEL to Prox LAD w/ 4.0 x 20 mm Promus 02/25/16 for instent restenosis; PTCA/GISSEL to LCX 06/29/2017 Atherosclerotic heart disease of [place] coronary artery without angina pectoris (Chronic) PCI/stent LAD w/ 4.0 x 32 mm Promus 2012; PCI/GISSEL to Prox LAD w/ 4.0 x 20 mm Promus 02/25/16 for instent restenosis; PTCA/GISSEL to LCx in June 2017; Asthma-COPD overlap syndrome (Chronic) FEV1 46% (01/11/2017) DM2 (diabetes mellitus, type 2) (Chronic) NSTEMI (non-ST elevated myocardial infarction) (Chronic 12/21/16) 02/20/16 Venous stasis of lower extremity (Chronic) Ischemic cardiomyopathy (Chronic) EF of 35% on Cath in February of 2014; 50% per echo 06/21/2017 Medical History: Medical History (Last Updated 11/10/17 @ 12:14 by SOURAV Hernandez) Pure hypercholesterolemia (Chronic) E78.00 History of anterolateral myocardial infarction (Chronic) Onset Date: 05/03/12 I25.2 History of cardiac arrest (Chronic) Onset Date: 06/22/17 Z86.74 Hypersomnia (Chronic) G47.10 EMILIA (obstructive sleep apnea) (Chronic) G47.33 Nicotine dependence, cigarettes, uncomplicated (Chronic) F17.210 EMILIA (obstructive sleep apnea) (Suspected) G47.33 Acute respiratory failure with hypoxia and hypercapnia (Acute) J96.01, J96.02 Pneumococcal pneumonia (Acute) J13 Metabolic encephalopathy (Acute) G93.41 Heart failure with reduced ejection fraction (Acute) I50.20 Chronic systolic congestive heart failure (Chronic) I50.22 Atherosclerotic heart disease of [place] coronary artery without angina pectoris (Chronic) I25.10 PCI/stent LAD w/ 4.0 x 32 mm Promus 2012; PCI/GISSEL to Prox LAD w/ 4.0 x 20 mm Promus 02/25/16 for instent restenosis; PTCA/GISSEL to LCx in June 2017; Asthma-COPD overlap syndrome (Chronic) J44.9 FEV1 46% (01/11/2017) DM2 (diabetes mellitus, type 2) (Chronic) E11.9 NSTEMI (non-ST elevated myocardial infarction) (Chronic) Onset Date: 12/21/16 I21.4 02/20/16 Venous stasis of lower extremity (Chronic) I87.8 Ischemic cardiomyopathy (Chronic) I25.5 EF of 35% on Cath in February of 2014; 50% per echo 06/21/2017 Hypoxia R09.02 Chest pain (Resolved) R07.9 Respiratory failure, acute (Resolved) J96.00 Hyponatremia (Inactive) E87.1 Allergies adhesive tape Adverse Reaction (Verified 11/10/17 12:17) Rash Home Medications: Ambulatory Orders Medication Instructions Recorded Aspirin E.C. [Ecotrin] 81 mg PO DAILY@0800 12/27/15 Albuterol Aerosols [Ventolin 2.5 mg INHALATION TID 01/17/17 Aerosols] Meloxicam [Mobic] 15 mg PO DAILY 01/17/17 Polyethylene Glycol 3350 [Miralax] 17 gm PO DAILY 01/17/17 potassium chloride ER 20 mEq 20 meq PO DAILY 06/13/17 tablet,extended release Clopidogrel Bisulfate [Plavix] 75 mg PO DAILY 06/20/17 Gabapentin [Neurontin] 400 mg PO TID 06/20/17 Metformin HCl [Glucophage] 1,000 mg PO BIDCM 06/20/17 Montelukast [Singulair] 10 mg PO DAILY 06/20/17 Carvedilol [Coreg (Beta Kareem)] 3.125 mg PO BID #90 tab 07/04/17 Furosemide [Lasix] 80 mg PO BID@1000,1800 #90 tab 07/04/17 fluticasone-vilanterol INHALATION QDAY 07/27/17 pantoprazole 20 mg tablet,delayed 20 mg PO QDAY 07/27/17 release prednisone 10 mg tablet 10 mg PO QDAY 07/27/17 losartan 25 mg tablet 25 mg PO QDAY 08/04/17 atorvastatin 40 mg tablet 40 mg PO DAILY 11/10/17 Fluticasone/Vilanterol [Breo 1 puff INHALATION DAILY 12/12/17 Ellipta 200-25 Mcg INH] Gabapentin [Neurontin] 700 mg PO QHS 12/12/17 Prednisone 10 mg PO DAILY 12/12/17 Surgical History: Surgical History (Last Updated 11/10/17 @ 12:18 by Mirna Patiño) History of cardiac catheterization (Chronic) Onset Date: 02/25/16 Z98.890 05/03/12 @ [place] per DJN; 02/21/2014 per DJN @ [facility] (no stents needed); 02/22 17 per DJN @ [facility] prior to PCI and GISSEL to proximal LAD; 06/28/17 after cardiac arrest, prior to GISSEL of mid LCX Presence of stent in coronary artery (Chronic) Onset Date: 06/29/17 Z95.5 PCI/stent LAD w/ 4.0 x 32 mm Promus 2012 ; PCI/GISSEL to Prox LAD w/ 4.0 x 20 mm Promus 02/25/16 for instent restenosis; PTCA/GISSEL to LCX 06/29/2017 Amputated great toe of left foot Z89.412 History of surgery on arm Z98.890 Surgery on left arm for infected muscle Surgical History: no surgical history Psychiatric History: No pertinent psych hx Smoking Status: Current every day smoker - *Family History Maternal Family History: Family History (Last Reviewed 11/10/17 @ 12:19 by Mirna Patiño) Mother Diabetes Heart disease History Items: No pertinent history, - - Unable to obtain as the patient is intubated and sedated Review of Systems Unable to obtain accurate/complete ROS d/t: patient intubated and sedated PE: intubated and sedated ETT and OG tube in the mouth Neck- no masses. the cricoid is sitting on the sternal notch while the head is flexed. A: Acute on chronic respiratory failure/prolonged ventilation pneumonia chf questionable aspiration P: The patient meets the criteria for tracheotomy. I have placed the patient on the OR schedule for Tuesday12/26/17. Please hold heparin at least six hours prior to the procedure. 40 minutes
--- NOTE | 2017-12-23 17:37 | PN_ITS ---
Progress Note Asked to see the patient at the request of Dr. Campos for tracheotomy placement HPI 57 yo white male was intubated 12/12/17 for acute on chronic respiratory failure due in large part to CHF. He has pneumonia and questionable aspiration now making his respiratory status worse. Extubation is not anticipated any time soon and prolonged intubation/ventilatory wean is anticipated. 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/12) History of cardiac arrest (Chronic 06/22/17) Hypersomnia (Chronic) EMILIA (obstructive sleep apnea) (Chronic) History of cardiac catheterization (Chronic 02/25/16) 05/03/12 @ [place] per [facility]; 02/21/2014 per [facility] @ [facility] (no stents needed); 02/23 16 per [facility]N @ [facility] prior to PCI and GISSEL to proximal LAD; 06/28/17 after cardiac arrest, prior to GISSEL of mid LCX Nicotine dependence, cigarettes, uncomplicated (Chronic) Chronic systolic congestive heart failure (Chronic) Presence of stent in coronary artery (Chronic 06/29/17) PCI/stent LAD w/ 4.0 x 32 mm Promus 2012 ; PCI/GISSEL to Prox LAD w/ 4.0 x 20 mm Promus 02/25/16 for instent restenosis; PTCA/GISSEL to LCX 06/29/2017 Atherosclerotic heart disease of [place] coronary artery without angina pectoris (Chronic) PCI/stent LAD w/ 4.0 x 32 mm Promus 2012; PCI/GISSEL to Prox LAD w/ 4.0 x 20 mm Promus 02/25/16 for instent restenosis; PTCA/GISSEL to LCx in June 2017; Asthma-COPD overlap syndrome (Chronic) FEV1 46% (01/11/2017) DM2 (diabetes mellitus, type 2) (Chronic) NSTEMI (non-ST elevated myocardial infarction) (Chronic 12/21/16) 02/20/16 Venous stasis of lower extremity (Chronic) Ischemic cardiomyopathy (Chronic) EF of 35% on Cath in February of 2014; 50% per echo 06/21/2017 Medical History: Medical History (Last Updated 11/10/17 @ 12:14 by SOURAV Hernandez) Pure hypercholesterolemia (Chronic) E78.00 History of anterolateral myocardial infarction (Chronic) Onset Date: 05/03/12 I25.2 History of cardiac arrest (Chronic) Onset Date: 06/22/17 Z86.74 Hypersomnia (Chronic) G47.10 EMILIA (obstructive sleep apnea) (Chronic) G47.33 Nicotine dependence, cigarettes, uncomplicated (Chronic) F17.210 EMILIA (obstructive sleep apnea) (Suspected) G47.33 Acute respiratory failure with hypoxia and hypercapnia (Acute) J96.01, J96.02 Pneumococcal pneumonia (Acute) J13 Metabolic encephalopathy (Acute) G93.41 Heart failure with reduced ejection fraction (Acute) I50.20 Chronic systolic congestive heart failure (Chronic) I50.22 Atherosclerotic heart disease of [place] coronary artery without angina pectoris (Chronic) I25.10 PCI/stent LAD w/ 4.0 x 32 mm Promus 2012; PCI/GISSEL to Prox LAD w/ 4.0 x 20 mm Promus 02/25/16 for instent restenosis; PTCA/GISSEL to LCx in June 2017; Asthma-COPD overlap syndrome (Chronic) J44.9 FEV1 46% (01/11/2017) DM2 (diabetes mellitus, type 2) (Chronic) E11.9 NSTEMI (non-ST elevated myocardial infarction) (Chronic) Onset Date: 12/21/16 I21.4 02/20/16 Venous stasis of lower extremity (Chronic) I87.8 Ischemic cardiomyopathy (Chronic) I25.5 EF of 35% on Cath in February of 2014; 50% per echo 06/21/2017 Hypoxia R09.02 Chest pain (Resolved) R07.9 Respiratory failure, acute (Resolved) J96.00 Hyponatremia (Inactive) E87.1 Allergies adhesive tape Adverse Reaction (Verified 11/10/17 12:17) Rash Home Medications: Ambulatory Orders Medication Instructions Recorded Aspirin E.C. [Ecotrin] 81 mg PO DAILY@0800 12/27/15 Albuterol Aerosols [Ventolin 2.5 mg INHALATION TID 01/17/17 Aerosols] Meloxicam [Mobic] 15 mg PO DAILY 01/17/17 Polyethylene Glycol 3350 [Miralax] 17 gm PO DAILY 01/17/17 potassium chloride ER 20 mEq 20 meq PO DAILY 06/13/17 tablet,extended release Clopidogrel Bisulfate [Plavix] 75 mg PO DAILY 06/20/17 Gabapentin [Neurontin] 400 mg PO TID 06/20/17 Metformin HCl [Glucophage] 1,000 mg PO BIDCM 06/20/17 Montelukast [Singulair] 10 mg PO DAILY 06/20/17 Carvedilol [Coreg (Beta Kareem)] 3.125 mg PO BID #90 tab 07/04/17 Furosemide [Lasix] 80 mg PO BID@1000,1800 #90 tab 07/04/17 fluticasone-vilanterol INHALATION QDAY 07/27/17 pantoprazole 20 mg tablet,delayed 20 mg PO QDAY 07/27/17 release prednisone 10 mg tablet 10 mg PO QDAY 07/27/17 losartan 25 mg tablet 25 mg PO QDAY 08/04/17 atorvastatin 40 mg tablet 40 mg PO DAILY 11/10/17 Fluticasone/Vilanterol [Breo 1 puff INHALATION DAILY 12/12/17 Ellipta 200-25 Mcg INH] Gabapentin [Neurontin] 700 mg PO QHS 12/12/17 Prednisone 10 mg PO DAILY 12/12/17 Surgical History: Surgical History (Last Updated 11/10/17 @ 12:18 by Mirna Patiño) History of cardiac catheterization (Chronic) Onset Date: 02/25/16 Z98.890 05/03/12 @ [place] per [facility]; 02/21/2014 per [facility]N @ [facility] (no stents needed); 02/22 17 per [facility]N @ [facility] prior to PCI and GISSEL to proximal LAD; 06/28/17 after cardiac arrest, prior to GISSEL of mid LCX Presence of stent in coronary artery (Chronic) Onset Date: 06/29/17 Z95.5 PCI/stent LAD w/ 4.0 x 32 mm Promus 2012 ; PCI/GISSEL to Prox LAD w/ 4.0 x 20 mm Promus 02/25/16 for instent restenosis; PTCA/GISSEL to LCX 06/29/2017 Amputated great toe of left foot Z89.412 History of surgery on arm Z98.890 Surgery on left arm for infected muscle Surgical History: no surgical history Psychiatric History: No pertinent psych hx Smoking Status: Current every day smoker - *Family History Maternal Family History: Family History (Last Reviewed 11/10/17 @ 12:19 by Mirna Patiño) Mother Diabetes Heart disease History Items: No pertinent history, - - Unable to obtain as the patient is intubated and sedated Review of Systems Unable to obtain accurate/complete ROS d/t: patient intubated and sedated PE: intubated and sedated ETT and OG tube in the mouth Neck- no masses. the cricoid is sitting on the sternal notch while the head is flexed. A: Acute on chronic respiratory failure/prolonged ventilation pneumonia chf questionable aspiration P: The patient meets the criteria for tracheotomy. I have placed the patient on the OR schedule for Tuesday12/26/17. Please hold heparin at least six hours prior to the procedure. 40 minutes
[2017-12-23 18:31] LABS: Bedside Glucose 227 mg/dL (70-110)
[2017-12-23] MEDS: Atorvastatin Calcium 40 MG Tablet GT (21:35)
[2017-12-23] MEDS: fentaNYL drip 100 ML 7.5 MCG IV (21:37)
[2017-12-23 22:01] LABS: Bedside Glucose 198 mg/dL (70-110)
[2017-12-24] VITALS (39 sets, daily range): BP systolic 80–116; BP diastolic 40–90; PULSE 63–115; RESP 14–22; TEMP 37.5–38.3; O2SAT 84–95
[2017-12-24] MEDS: Insulin Lispro 100 UNIT/ML INSULN.PEN SC ×5 (00:15→23:43)
[2017-12-24] MEDS: Acetaminophen 650 MG/20 ML UDC GT (00:16)
[2017-12-24 00:26] LABS: Bedside Glucose 230 mg/dL (70-110)
[2017-12-24] MEDS: 0.9% NaCl Peripheral Flush Adult/Peds IV (04:30)
[2017-12-24] MEDS: HEPARIN/D5w 25,000 UNITS 25,000 UNITS/250 ML IV.SOLN. 18 UNITS IV (04:30)
[2017-12-24 04:32] LABS: Absolute Lymphocyte Count 0.78 X10^3/ul (0.83-4.51); Absolute Neutrophil Count 5.3 X10^3/uL (2.0-7.7); Hematocrit 42.4 % (40-54); Hemoglobin 12.2 g/dl (13.0-16.5); Lymphocyte # 0.78 X10^3/ul (4.0); Lymphocyte % 12.3 % (19-41); Mean Corp Hgb Conc 28.8 g/gl (32-36); Mean Corpuscular Hgb 27.5 pg (27.0-32.0); Mean Corpuscular Volume 95.5 fL (80-94); Mean Platelet Vol. 10.8 fl (6.2-12.0); Monocyte# 0.23 X10^3/uL; Monocyte% 3.6 % (0-10); Neutrophil # 5.32 X10^3/uL (2.7-7.7); Neutrophil % 83.9 % (47-70); Platelet Count 175 K/mm3 (150-450); RBC Distribution Width CV 14.8 % (11.6-14.6); RBC Distribution Width SD 51.7 fl (35.1-43.9); Red Blood Count 4.44 M/mm3 (4.6-6.2); White Blood Count 6.3 K/mm3 (4.4-11.0)
[2017-12-24 04:39] LABS: POSITIVE COUNT NO; POSITIVE DIFFERENTIAL NO; POSITIVE MORPHOLOGY NO
[2017-12-24 04:45] LABS: Partial Thromboplast Time 59.2 Seconds (24.1-36.2)
[2017-12-24 04:47] LABS: ALB/GLOB Ratio 0.7 RATIO (0.9-2.4); AST(SGOT) 22 U/L (15-37); Alanine Aminotransfer ALT/SGPT 32 U/L (16-61); Albumin, Serum 2.8 g/dL (3.2-5.0); Alkaline Phosphatase 56 U/L (45-117); Anion Gap 6 (5-15); BUN 49 mg/dL (7-18); BUN/Creat Ratio 46.7 RATIO (10-20); Calcium,Total 8.9 mg/dL (8.5-10.1); Chloride 111 mmol/L (98-107); Creatinine, Serum 1.05 mg/dL (0.70-1.30); EST Glomerular Filtration Rate 77 mL/min (>60); Est Glom Filt Rate - Afr Amer 93 mL/min (>60); Estimated Creatinine Clearance 73.29 ml/min; Globulin 4.2 g/dL (2.2-4.2); Glucose 308 mg/dL (74-106); Potassium 5.2 mmol/L (3.5-5.1); Sodium Level 151 mmol/L (136-145)
[2017-12-24] MEDS: Propofol 10MG/Ml 1,000 MG/100 ML Bottle 9.852 MG CONT INF ×2 (06:00→16:53)
[2017-12-24] MEDS: Albuterol 2.5 MG/3 ML VIAL.NEB. INHALATION ×2 (06:28→13:35)
--- NOTE | 2017-12-24 06:52 | PCM.PN.INT ---
Subjective: Patient did well overnight. No acute issues were reported. Patient did not have any desaturation periods, but did have some decreased blood pressure. No intervention was required. Patient continues to deny any pain. Discussed with POA yesterday about patient's current status. With patient's involvement, it was decided the patient will receive a trach and PEG on Tuesday. Patient should receive a PICC line today. General: Alert, Cooperative, No apparent distress, - - Morbidly obese. RASS 0. HEENT: Atraumatic, PERRLA, EOMI, Normocephalic, - - No scleral icterus or injection noted. Oral: Moist Mucosa, No Gingival or Mucosal Lesions/ Ulcerations Neck: Supple, No JVD, No Nodes, Trachea Midline Lungs: No wheeze, No rales, Diminished, Rhonchi - Right base Cardiovascular: Regular rate, Regular Rhythm, Normal S1, Normal S2, No murmurs, No rub noted, No Gallop Abdomen: Bowel Sounds Present, Soft, Non Tender, Non-Distended, Obese Extremities: No cyanosis, No edema, Capillary Refill Less than 3 Seconds, Clubbing Skin: - - No significant change compared to previous Musculoskeletal: No Tenderness to Palpation of Joints or Extremities Lymphatic: No Cervical, Supraclavicular, or Inguinal Adenopathy Neurological: Cranial nerves II-XII grossly intact, Neuro grossly intact, Motor Exam 5/5 strength throughout Psych/Mental Status: Normal Affect, Appropriate Vital Signs Temp Pulse Resp BP Pulse Ox 38.1 C H 88 15 104/74 93 12/24/17 06:00 12/24/17 06:00 12/24/17 06:00 12/24/17 06:00 12/24/17 06:00 Oxygen Flow Rate (L/min) 50 Oxygen Delivery Method Mechanical Ventilator Weight: 141.8 kg Body Mass Index (BMI) 55.5 Finger Stick Blood Glucose 239 Intake and Output for Last 24 Hours 12/22/17 12/23/17 12/24/17 23:59 23:59 23:59 Intake Total 1445.8 / 1445.8 5058.0 / 5058.0 1606.5 / 1606.5 Output Total 2100 / 2100 1875 / 1875 1300 / 1300 Balance -654.2 / -654.2 3183.0 / 3183.0 306.5 / 306.5 Labs (Last 48 Hours) 12/22/17 12/22/17 12/22/17 10:15 13:11 17:15 WBC RBC Hgb Hct MCV MCH MCHC RDW RDW Differential Plt Count MPV Immature Gran % (Auto) Neut % (Auto) Lymph % (Auto) [place] % (Auto) Eos % (Auto) Baso % (Auto) Absolute Neuts (auto) Absolute Lymphs (auto) Total Counted APTT 88.6 H 75.1 H Sodium Potassium Chloride Carbon Dioxide Anion Gap BUN Creatinine Estim Creat Clear Calc Est GFR (MDRD) Af Amer Est GFR (MDRD) Non-Af BUN/Creatinine Ratio Glucose Calcium Total Bilirubin AST ALT Alkaline Phosphatase Total Protein Albumin Globulin Albumin/Globulin Ratio Urine Color Urine Clarity Urine pH Ur Specific [place] Urine Protein Urine Glucose (UA) Urine Ketones Urine Occult Blood Urine Nitrite Urine Bilirubin Urine Urobilinogen Ur Leukocyte Esterase Urine RBC Urine WBC Ur Squamous Epith Cells Urine Bacteria Urine Mucus POC Glucose 268 H 12/22/17 12/22/17 12/22/17 17:15 23:40 23:59 WBC RBC Hgb Hct MCV MCH MCHC RDW RDW Differential Plt Count MPV Immature Gran % (Auto) Neut % (Auto) Lymph % (Auto) [place] % (Auto) Eos % (Auto) Baso % (Auto) Absolute Neuts (auto) Absolute Lymphs (auto) Total Counted APTT 69.6 H Sodium Potassium Chloride Carbon Dioxide Anion Gap BUN Creatinine Estim Creat Clear Calc Est GFR (MDRD) Af Amer Est GFR (MDRD) Non-Af BUN/Creatinine Ratio Glucose Calcium Total Bilirubin AST ALT Alkaline Phosphatase Total Protein Albumin Globulin Albumin/Globulin Ratio Urine Color Urine Clarity Urine pH Ur Specific [place] Urine Protein Urine Glucose (UA) Urine Ketones Urine Occult Blood Urine Nitrite Urine Bilirubin Urine Urobilinogen Ur Leukocyte Esterase Urine RBC Urine WBC Ur Squamous Epith Cells Urine Bacteria Urine Mucus POC Glucose 215 H 167 H 12/23/17 12/23/17 12/23/17 04:10 04:10 04:10 WBC 7.4 RBC 4.58 L Hgb 12.7 L Hct 43.6 MCV 95.2 H MCH 27.7 MCHC 29.1 L RDW 14.9 H RDW Differential 50.4 H Plt Count 209 MPV 11.5 Immature Gran % (Auto) 0.500 Neut % (Auto) 85.8 H Lymph % (Auto) 9.9 L [place] % (Auto) 3.7 Eos % (Auto) 0.1 Baso % (Auto) 0.0 Absolute Neuts (auto) 6.3 Absolute Lymphs (auto) 0.73 L Total Counted Not Reportable APTT 68.8 H Sodium 152 H Potassium 4.7 Chloride 111 H Carbon Dioxide 34.0 H Anion Gap 7 BUN 63 H Creatinine 1.03 Estim Creat Clear Calc 74.71 Est GFR (MDRD) Af Amer 95 Est GFR (MDRD) Non-Af 78 BUN/Creatinine Ratio 61.2 H Glucose 289 H Calcium 9.1 Total Bilirubin AST ALT Alkaline Phosphatase Total Protein Albumin Globulin Albumin/Globulin Ratio Urine Color Urine Clarity Urine pH Ur Specific [place] Urine Protein Urine Glucose (UA) Urine Ketones Urine Occult Blood Urine Nitrite Urine Bilirubin Urine Urobilinogen Ur Leukocyte Esterase Urine RBC Urine WBC Ur Squamous Epith Cells Urine Bacteria Urine Mucus POC Glucose 12/23/17 12/23/17 12/23/17 05:58 08:30 12:44 WBC RBC Hgb Hct MCV MCH MCHC RDW RDW Differential Plt Count MPV Immature Gran % (Auto) Neut % (Auto) Lymph % (Auto) [place] % (Auto) Eos % (Auto) Baso % (Auto) Absolute Neuts (auto) Absolute Lymphs (auto) Total Counted APTT Sodium Potassium Chloride Carbon Dioxide Anion Gap BUN Creatinine Estim Creat Clear Calc Est GFR (MDRD) Af Amer Est GFR (MDRD) Non-Af BUN/Creatinine Ratio Glucose Calcium Total Bilirubin AST ALT Alkaline Phosphatase Total Protein Albumin Globulin Albumin/Globulin Ratio Urine Color Yellow Urine Clarity Sl. Cloudy Urine pH 6.0 Ur Specific [place] 1.015 Urine Protein Negative Urine Glucose (UA) Normal Urine Ketones Negative Urine Occult Blood Negative Urine Nitrite Negative Urine Bilirubin Negative Urine Urobilinogen Normal Ur Leukocyte Esterase 25 H Urine RBC 0 SEEN Urine WBC 0-5 SEEN Ur Squamous Epith Cells 0 SEEN Urine Bacteria RARE Urine Mucus 0 SEEN POC Glucose 278 H 217 H 12/23/17 12/23/17 12/24/17 18:20 21:41 00:13 WBC RBC Hgb Hct MCV MCH MCHC RDW RDW Differential Plt Count MPV Immature Gran % (Auto) Neut % (Auto) Lymph % (Auto) [place] % (Auto) Eos % (Auto) Baso % (Auto) Absolute Neuts (auto) Absolute Lymphs (auto) Total Counted APTT Sodium Potassium Chloride Carbon Dioxide Anion Gap BUN Creatinine Estim Creat Clear Calc Est GFR (MDRD) Af Amer Est GFR (MDRD) Non-Af BUN/Creatinine Ratio Glucose Calcium Total Bilirubin AST ALT Alkaline Phosphatase Total Protein Albumin Globulin Albumin/Globulin Ratio Urine Color Urine Clarity Urine pH Ur Specific [place] Urine Protein Urine Glucose (UA) Urine Ketones Urine Occult Blood Urine Nitrite Urine Bilirubin Urine Urobilinogen Ur Leukocyte Esterase Urine RBC Urine WBC Ur Squamous Epith Cells Urine Bacteria Urine Mucus POC Glucose 227 H 198 H 230 H 12/24/17 12/24/17 12/24/17 04:22 04:22 04:22 WBC 6.3 RBC 4.44 L Hgb 12.2 L Hct 42.4 MCV 95.5 H MCH 27.5 MCHC 28.8 L RDW 14.8 H RDW Differential 51.7 H Plt Count 175 MPV 10.8 Immature Gran % (Auto) 0.200 Neut % (Auto) 83.9 H Lymph % (Auto) 12.3 L [place] % (Auto) 3.6 Eos % (Auto) 0.0 Baso % (Auto) 0.0 Absolute Neuts (auto) 5.3 Absolute Lymphs (auto) 0.78 L Total Counted Not Reportable APTT 59.2 H Sodium 151 H Potassium 5.2 H Chloride 111 H Carbon Dioxide 34.0 H Anion Gap 6 BUN 49 H Creatinine 1.05 Estim Creat Clear Calc 73.29 Est GFR (MDRD) Af Amer 93 Est GFR (MDRD) Non-Af 77 BUN/Creatinine Ratio 46.7 H Glucose 308 H Calcium 8.9 Total Bilirubin 0.40 AST 22 ALT 32 Alkaline Phosphatase 56 Total Protein 7.0 Albumin 2.8 L Globulin 4.2 Albumin/Globulin Ratio 0.7 L Urine Color Urine Clarity Urine pH Ur Specific [place] Urine Protein Urine Glucose (UA) Urine Ketones Urine Occult Blood Urine Nitrite Urine Bilirubin Urine Urobilinogen Ur Leukocyte Esterase Urine RBC Urine WBC Ur Squamous Epith Cells Urine Bacteria Urine Mucus POC Glucose Microbiology 12/20/17 05:00 Sputum, Induced/Lukens Gram Stain - Final 12/20/17 05:00 Sputum, Induced/Lukens Respiratory Culture - Final Yeast, not Audra albicans Clinical Impression(s) from Imaging Studies Chest X-Ray 12/23/17 04:27 IMPRESSION: 1. Bilateral basilar airspace consolidation and atelectasis. 2. Right upper lobe subsegmental atelectasis. Electronically Signed: Katya Wright MD at 8:46 EST , Service support , Medical Necessity - Tobacco Use Smoking Status: Current every day smoker Assessment/Plan All Active Problems (Last Updated 12/23/17 @ 09:06 by Juan Manuel Subramanian DO) Heart failure with preserved ejection fraction (Acute) GALILEA (acute kidney injury) (Acute) Klebsiella pneumonia (Acute) Acute respiratory failure with hypoxia and hypercapnia (Acute) Pneumococcal pneumonia (Acute) Metabolic encephalopathy (Resolved) Chest pain (Resolved) Respiratory failure, acute (Resolved) RECOMMENDATIONS: 1. Continue tube feeds and increase free water flushes 2. Continue IV Solu-Medrol 40 mg every 12 hours and bronchodilators. 3. Wean FiO2 and PEEP as tolerated. 4. Continue antibiotics another [address] PICC line today, trach and PEG on Tuesday. 6. Continue current sedation regimen with a goal to maintain a RASS of -1 to 1. 7. Continue empiric heparin drip and Protonix. IMPRESSIONS: 1. Acute on chronic combined respiratory failure Patient was making improvement. However, patient appears to have aspirated with his self extubation given the new right lower lobe infiltrate. Patient appears to be doing okay at this point. We will continue to wean PEEP and FiO2 as tolerated, but do not anticipate patient being extubated prior to Tuesday. Patient is at increased risk for tracheal stenosis and after discussion with POA, patient will receive a trach and PEG. 2. Metabolic encephalopathy Likely secondary to acute on chronic CO2 retention. Anticipate improvement with correction of the patient's underlying metabolic derangements. Minimize sedation as tolerated. 3. Decompensated heart failure/history of ischemic cardiomyopathy Patient is likely euvolemic at this time. We will continue to try to keep fluids even. Patient's sodium and chloride levels are elevated. Will increase free water flushes. Will attempt to keep patient at the current weight. 4. Diabetes mellitus Continue Accu-Cheks and sliding scale insulin coverage. The patient has been tolerant of tube feeds to date. Basal insulin has been reinitiated now the patient is back on tube feeds. 5. Obstructive sleep apnea The patient has a history of outpatient noncompliance with the use of nocturnal Pap therapy. He only utilizes supplemental oxygen on a nightly basis. 6. Ongoing tobacco dependence/super morbid obesity/history of medical noncompliance/hypertension Complicates care, management, recovery and prognosis. Nicotine replacement therapy can be utilized while admitted to the hospital. 7. Acute kidney injury Resolved. Likely secondary to overdiuresis. All diuretics have been held for now. Will attempt to keep weight the same. JONE inhibitor will be discontinued. Continue to follow renal function on a daily basis. TIME: 32 minutes of critical care time, independent of procedures, was spent addressing the patient's acute on chronic combined respiratory failure, metabolic encephalopathy, decompensated heart failure, obstructive sleep apnea, review of all data and collaboration with the care team. (5:55 AM to 6:35 AM) Code Visit 9xxxx: [id number] Critical care first hour
[2017-12-24 07:30] LABS: Bedside Glucose 269 mg/dL (70-110)
--- NOTE | 2017-12-24 08:36 | PCM.PN.HOSP ---
Patient Problems: Active and Suspected Problems (Last Updated 12/23/17 @ 09:06 by Juan Manuel Subramanian DO) Heart failure with preserved ejection fraction (Acute) GALILEA (acute kidney injury) (Acute) Klebsiella pneumonia (Acute) Acute respiratory failure with hypoxia and hypercapnia (Acute) Pneumococcal pneumonia (Acute) Subjective: No new events overnight. No shortness of breath on vent. No pain. Vitals/I&O's: Vital Signs Temp Pulse Resp BP Pulse Ox 38.1 C H 97 14 104/74 92 12/24/17 06:00 12/24/17 08:00 12/24/17 06:28 12/24/17 06:00 12/24/17 06:28 Oxygen Flow Rate (L/min) 50 Oxygen Delivery Method Mechanical Ventilator Weight: 141.8 kg Body Mass Index (BMI) 55.5 Finger Stick Blood Glucose 239 Intake and Output for Last 24 Hours 12/22/17 12/23/17 12/24/17 23:59 23:59 23:59 Intake Total 1445.8 / 1445.8 5058.0 / 5058.0 1606.5 / 1606.5 Output Total 2100 / 2100 1875 / 1875 1300 / 1300 Balance -654.2 / -654.2 3183.0 / 3183.0 306.5 / 306.5 General: Alert, No apparent distress, - - on vent. answers yes/no questions. Oral: Moist Mucosa, No Gingival or Mucosal Lesions/ Ulcerations Neck: No Nodes, Thyroid Normal Size and Texture Lungs: Normal air movement, No rhonchi, No wheeze, Diminished, - - coarse BS bilaterally. Cardiovascular: Regular rate, Regular Rhythm, Normal S1, Normal S2, No murmurs Abdomen: Bowel Sounds Present, Soft, Non Tender, Non-Distended, No Hepato-splenomegaly Extremities: No edema, No Calf Tenderness Skin: - - venous stasis dermatitis. Musculoskeletal: No Tenderness to Palpation of Joints or Extremities, No Muscle Wasting Lymphatic: No Cervical, Supraclavicular, or Inguinal Adenopathy, Cervical Adenopathy Psych/Mental Status: Appropriate, Flat Affect Microbiology Past 72 Hours 12/20/17 05:00 Sputum, Induced/Lukens Gram Stain - Final 12/20/17 05:00 Sputum, Induced/Lukens Respiratory Culture - Final Yeast, not Audra albicans Laboratory Results 12/23/17 08:30: Urine Color Yellow, Urine Clarity Sl. Cloudy, Urine pH 6.0, Ur Specific [place] 1.015, Urine Protein Negative, Urine Glucose (UA) Normal, Urine Ketones Negative, Urine Occult Blood Negative, Urine Nitrite Negative, Urine Bilirubin Negative, Urine Urobilinogen Normal, Ur Leukocyte Esterase 25 H, Urine RBC 0 SEEN, Urine WBC 0-5 SEEN, Ur Squamous Epith Cells 0 SEEN, Urine Bacteria RARE, Urine Mucus 0 SEEN 12/23/17 12:44: POC Glucose 217 H 12/23/17 18:20: POC Glucose 227 H 12/23/17 21:41: POC Glucose 198 H 12/24/17 00:13: POC Glucose 230 H 12/24/17 04:22: APTT 59.2 H 12/24/17 04:22: WBC 6.3, RBC 4.44 L, Hgb 12.2 L, Hct 42.4, MCV 95.5 H, MCH 27.5, MCHC 28.8 L, RDW 14.8 H, RDW Differential 51.7 H, Plt Count 175, MPV 10.8, Immature Gran % (Auto) 0.200, Neut % (Auto) 83.9 H, Lymph % (Auto) 12.3 L, [place] % (Auto) 3.6, Eos % (Auto) 0.0, Baso % (Auto) 0.0, Absolute Neuts (auto) 5.3, Absolute Lymphs (auto) 0.78 L, Total Counted Not Reportable 12/24/17 04:22: Sodium 151 H, Potassium 5.2 H, Chloride 111 H, Carbon Dioxide 34.0 H, Anion Gap 6, BUN 49 H, Creatinine 1.05, Estim Creat Clear Calc 73.29, Est GFR (MDRD) Af Amer 93, Est GFR (MDRD) Non-Af 77, BUN/Creatinine Ratio 46.7 H, Glucose 308 H, Calcium 8.9, Total Bilirubin 0.40, AST 22, ALT 32, Alkaline Phosphatase 56, Total Protein 7.0, Albumin 2.8 L, Globulin 4.2, Albumin/Globulin Ratio 0.7 L 12/24/17 05:55: POC Glucose 269 H Current Medications Acetaminophen (Tylenol Liquid) 650 mg GT Q6H PRN PRN PRN Reason: FEVER Last Admin: 12/24/17 00:16 Dose: 650 mg Albuterol Sulfate (Ventolin Aerosols) 2.5 mg INHALATION Q6HWA.RT [facility] Last Admin: 12/24/17 06:28 Dose: 2.5 mg Aspirin (Aspirin, Baby) 81 mg GT DAILY [facility] Last Admin: 12/23/17 10:17 Dose: 81 mg Atorvastatin Calcium (Lipitor) 40 mg GT QHS [facility] Last Admin: 12/23/17 21:35 Dose: 40 mg Chlorhexidine Gluconate () 15 ml PO BID [facility] Last Admin: 12/23/17 21:33 Dose: 15 ml Clopidogrel Bisulfate (Plavix) 75 mg GT DAILY [facility] Last Admin: 12/23/17 10:17 Dose: 75 mg Dextrose (D50w Syringe) 0 gm IV X1 PRN; Protocol PRN Reason: Hypoglycemia Famotidine (Pepcid) 20 mg GT BID [facility] Last Admin: 12/23/17 21:35 Dose: 20 mg Furosemide (Lasix) 20 mg IV BID@1000,1800 [facility] Last Admin: 12/23/17 18:24 Dose: 20 mg Glucagon () 1 mg IM .X1 PRN PRN Reason: Hypoglycemia Heparin Sodium (Porcine) (Heparin Na) 0 unit IV UD PRN; Protocol Sodium Chloride () 250 mls @ 15 mls/hr IV .[id number] PRN PRN Reason: SALINE FLUSH Sodium Chloride () 250 mls @ 15 mls/hr IV .[id number] PRN PRN Reason: SALINE FLUSH Last Admin: 12/16/17 21:29 Dose: 15 mls/hr Sodium Chloride () 1,000 mls @ 0 mls/hr IV .Q0M [facility] Levofloxacin (Levaquin Iv) 750 mg in 150 mls @ 100 mls/hr IV Q24 [facility] Stop: 12/28/17 11:29 Last Admin: 12/23/17 10:37 Dose: 100 mls/hr Metronidazole (Flagyl) 500 mg in 100 mls @ 100 mls/hr IV Q8 [facility] Stop: 12/28/17 14:59 Last Admin: 12/24/17 06:00 Dose: 100 mls/hr Propofol (Diprivan) 1,000 mg in 100 mls @ 9.852 mls/hr CONT INF .[id number] [facility] Last Admin: 12/24/17 06:00 Dose: 9.852 mls/hr Heparin Sodium/Dextrose () 25,000 units in 250 mls @ 18 mls/hr IV .[id number] [facility]; Protocol Last Admin: 12/24/17 04:30 Dose: 18 mls/hr Fentanyl () 100 mls @ 7.5 mls/hr IV .Q40H [facility] Last Admin: 12/23/17 21:37 Dose: 7.5 mls/hr Enteral Nutritional Formula (Glucerna 1.5) 1,000 mls @ 55 mls/hr GT .[id number] [facility] Insulin Glargine (Lantus ([facility])) 35 units SC BID [facility] Last Admin: 12/23/17 21:38 Dose: 35 u Insulin Human Lispro (Humalog Kwikpen ([facility])) 0 unit SC Q6 [facility]; Protocol Last Admin: 12/24/17 05:59 Dose: 9 u Magnesium Hydroxide (Milk Of Magnesia) 30 ml PO DAILY PRN PRN PRN Reason: Constipation Methylprednisolone (Solu-Medrol) 40 mg IV Q12 [facility] Last Admin: 12/23/17 21:36 Dose: 40 mg Polyethylene Glycol (Miralax) 17 gm GT DAILY PRN PRN PRN Reason: Constipation Potassium Bicarb/Potassium Chloride (Potassium Chl 25 Meq Eff (For Liquid)) 25 meq GT BID [facility] Last Admin: 12/23/17 21:35 Dose: 25 meq Sodium Chloride () 5 - 30 ml IV UD PRN PRN Reason: SALINE FLUSH Last Admin: 12/24/17 04:30 Dose: 10 ml Medical Necessity - Tobacco Use Smoking Status: Current every day smoker Assessment/Plan All Active Problems (Last Updated 12/23/17 @ 09:06 by Juan Manuel Subramanian DO) Heart failure with preserved ejection fraction (Acute) GALILEA (acute kidney injury) (Acute) Klebsiella pneumonia (Acute) Acute respiratory failure with hypoxia and hypercapnia (Acute) Pneumococcal pneumonia (Acute) Metabolic encephalopathy (Resolved) Chest pain (Resolved) Respiratory failure, acute (Resolved) 1. Acute hypoxic and hypercapnic respiratory failure. stable, but not progressing. self-extubation on 12/22 new RUL infiltrate multifactorial: PNA, CHF, aspiration pneumonitis, EMILIA, obesity hypoventilation wean oxygen as tolerated CCM mgmt appreciated BDs and steroid trach and PEG on 12/26 on empiric heparin for possible VTE 2. Pneumococcal and Klebsiella Pneumonia: Levaquin pulm toilet 3. HFpEF EF 60% from echo 12/12 lasix stopped due to GALILEA ACEi stopped due to GALILEA 4. Fevers ongoing low grade, up to 37.7 at 2000 on 12/21 had been persistent since admission BCx on 5th negative TTE on the 5th negative UA, UCx negative other than sputum cultures, infectious work up has been negative schedule acetaminophen reapeat bcx and UA 5. GALILEA resolved likely due to overdiuresis monitor lasix and lisinopril stopped 6. DM2 uncontrolled LANTUS 35 BID consider insulin gtt to keep MBS < 200 in a critically ill patient 7. DVT proph: heparin Code Visit Inpatient E&M: 54027 Subs Hosp L2
--- NOTE | 2017-12-24 08:45 | PN_ITS ---
Patient Problems: Active and Suspected Problems (Last Updated 12/23/17 @ 09:06 by Juan Manuel Subramanian DO) Heart failure with preserved ejection fraction (Acute) GALILEA (acute kidney injury) (Acute) Klebsiella pneumonia (Acute) Acute respiratory failure with hypoxia and hypercapnia (Acute) Pneumococcal pneumonia (Acute) Subjective: No new events overnight. No shortness of breath on vent. No pain. Vitals/I&O's: Vital Signs Temp Pulse Resp BP Pulse Ox 38.1 C H 97 14 104/74 92 12/24/17 06:00 12/24/17 08:00 12/24/17 06:28 12/24/17 06:00 12/24/17 06:28 Oxygen Flow Rate (L/min) 50 Oxygen Delivery Method Mechanical Ventilator Weight: 141.8 kg Body Mass Index (BMI) 55.5 Finger Stick Blood Glucose 239 Intake and Output for Last 24 Hours 12/22/17 12/23/17 12/24/17 23:59 23:59 23:59 Intake Total 1445.8 / 1445.8 5058.0 / 5058.0 1606.5 / 1606.5 Output Total 2100 / 2100 1875 / 1875 1300 / 1300 Balance -654.2 / -654.2 3183.0 / 3183.0 306.5 / 306.5 General: Alert, No apparent distress, - - on vent. answers yes/no questions. Oral: Moist Mucosa, No Gingival or Mucosal Lesions/ Ulcerations Neck: No Nodes, Thyroid Normal Size and Texture Lungs: Normal air movement, No rhonchi, No wheeze, Diminished, - - coarse BS bilaterally. Cardiovascular: Regular rate, Regular Rhythm, Normal S1, Normal S2, No murmurs Abdomen: Bowel Sounds Present, Soft, Non Tender, Non-Distended, No Hepato- splenomegaly Extremities: No edema, No Calf Tenderness Skin: - - venous stasis dermatitis. Musculoskeletal: No Tenderness to Palpation of Joints or Extremities, No Muscle Wasting Lymphatic: No Cervical, Supraclavicular, or Inguinal Adenopathy, Cervical Adenopathy Psych/Mental Status: Appropriate, Flat Affect Microbiology Past 72 Hours 12/20/17 05:00 Sputum, Induced/Lukens Gram Stain - Final 12/20/17 05:00 Sputum, Induced/Lukens Respiratory Culture - Final Yeast, not Audra albicans Laboratory Results 12/23/17 08:30: Urine Color Yellow, Urine Clarity Sl. Cloudy, Urine pH 6.0, Ur Specific [place] 1.015, Urine Protein Negative, Urine Glucose (UA) Normal, Urine Ketones Negative, Urine Occult Blood Negative, Urine Nitrite Negative, Urine Bilirubin Negative, Urine Urobilinogen Normal, Ur Leukocyte Esterase 25 H, Urine RBC 0 SEEN, Urine WBC 0-5 SEEN, Ur Squamous Epith Cells 0 SEEN, Urine Bacteria RARE, Urine Mucus 0 SEEN 12/23/17 12:44: POC Glucose 217 H 12/23/17 18:20: POC Glucose 227 H 12/23/17 21:41: POC Glucose 198 H 12/24/17 00:13: POC Glucose 230 H 12/24/17 04:22: APTT 59.2 H 12/24/17 04:22: WBC 6.3, RBC 4.44 L, Hgb 12.2 L, Hct 42.4, MCV 95.5 H, MCH 27.5, MCHC 28.8 L, RDW 14.8 H, RDW Differential 51.7 H, Plt Count 175, MPV 10.8, Immature Gran % (Auto) 0.200, Neut % (Auto) 83.9 H, Lymph % (Auto) 12.3 L, [place] % (Auto) 3.6, Eos % (Auto) 0.0, Baso % (Auto) 0.0, Absolute Neuts (auto) 5.3, Absolute Lymphs (auto) 0.78 L, Total Counted Not Reportable 12/24/17 04:22: Sodium 151 H, Potassium 5.2 H, Chloride 111 H, Carbon Dioxide 34.0 H, Anion Gap 6, BUN 49 H, Creatinine 1.05, Estim Creat Clear Calc 73.29, Est GFR (MDRD) Af Amer 93, Est GFR (MDRD) Non-Af 77, BUN/Creatinine Ratio 46.7 H , Glucose 308 H, Calcium 8.9, Total Bilirubin 0.40, AST 22, ALT 32, Alkaline Phosphatase 56, Total Protein 7.0, Albumin 2.8 L, Globulin 4.2, Albumin/Globulin Ratio 0.7 L 12/24/17 05:55: POC Glucose 269 H Current Medications Acetaminophen (Tylenol Liquid) 650 mg GT Q6H PRN PRN PRN Reason: FEVER Last Admin: 12/24/17 00:16 Dose: 650 mg Albuterol Sulfate (Ventolin Aerosols) 2.5 mg INHALATION Q6HWA.RT [facility] Last Admin: 12/24/17 06:28 Dose: 2.5 mg Aspirin (Aspirin, Baby) 81 mg GT DAILY [facility] Last Admin: 12/23/17 10:17 Dose: 81 mg Atorvastatin Calcium (Lipitor) 40 mg GT QHS [facility] Last Admin: 12/23/17 21:35 Dose: 40 mg Chlorhexidine Gluconate () 15 ml PO BID [facility] Last Admin: 12/23/17 21:33 Dose: 15 ml Clopidogrel Bisulfate (Plavix) 75 mg GT DAILY [facility] Last Admin: 12/23/17 10:17 Dose: 75 mg Dextrose (D50w Syringe) 0 gm IV X1 PRN; Protocol PRN Reason: Hypoglycemia Famotidine (Pepcid) 20 mg GT BID [facility] Last Admin: 12/23/17 21:35 Dose: 20 mg Furosemide (Lasix) 20 mg IV BID@1000,1800 [facility] Last Admin: 12/23/17 18:24 Dose: 20 mg Glucagon () 1 mg IM .X1 PRN PRN Reason: Hypoglycemia Heparin Sodium (Porcine) (Heparin Na) 0 unit IV UD PRN; Protocol Sodium Chloride () 250 mls @ 15 mls/hr IV .[id number] PRN PRN Reason: SALINE FLUSH Sodium Chloride () 250 mls @ 15 mls/hr IV .[id number] PRN PRN Reason: SALINE FLUSH Last Admin: 12/16/17 21:29 Dose: 15 mls/hr Sodium Chloride () 1,000 mls @ 0 mls/hr IV .Q0M [facility] Levofloxacin (Levaquin Iv) 750 mg in 150 mls @ 100 mls/hr IV Q24 [facility] Stop: 12/28/17 11:29 Last Admin: 12/23/17 10:37 Dose: 100 mls/hr Metronidazole (Flagyl) 500 mg in 100 mls @ 100 mls/hr IV Q8 [facility] Stop: 12/28/17 14:59 Last Admin: 12/24/17 06:00 Dose: 100 mls/hr Propofol (Diprivan) 1,000 mg in 100 mls @ 9.852 mls/hr CONT INF .[id number] [facility] Last Admin: 12/24/17 06:00 Dose: 9.852 mls/hr Heparin Sodium/Dextrose () 25,000 units in 250 mls @ 18 mls/hr IV .[id number] [facility]; Protocol Last Admin: 12/24/17 04:30 Dose: 18 mls/hr Fentanyl () 100 mls @ 7.5 mls/hr IV .Q40H [facility] Last Admin: 12/23/17 21:37 Dose: 7.5 mls/hr Enteral Nutritional Formula (Glucerna 1.5) 1,000 mls @ 55 mls/hr GT .[id number] [facility] Insulin Glargine (Lantus (Bk)) 35 units SC BID [facility] Last Admin: 12/23/17 21:38 Dose: 35 u Insulin Human Lispro (Humalog Kwikpen ([facility])) 0 unit SC Q6 [facility]; Protocol Last Admin: 12/24/17 05:59 Dose: 9 u Magnesium Hydroxide (Milk Of Magnesia) 30 ml PO DAILY PRN PRN PRN Reason: Constipation Methylprednisolone (Solu-Medrol) 40 mg IV Q12 [facility] Last Admin: 12/23/17 21:36 Dose: 40 mg Polyethylene Glycol (Miralax) 17 gm GT DAILY PRN PRN PRN Reason: Constipation Potassium Bicarb/Potassium Chloride (Potassium Chl 25 Meq Eff (For Liquid)) 25 meq GT BID [facility] Last Admin: 12/23/17 21:35 Dose: 25 meq Sodium Chloride () 5 - 30 ml IV UD PRN PRN Reason: SALINE FLUSH Last Admin: 12/24/17 04:30 Dose: 10 ml Medical Necessity - Tobacco Use Smoking Status: Current every day smoker Assessment/Plan All Active Problems (Last Updated 12/23/17 @ 09:06 by Juan Manuel Subramanian DO) Heart failure with preserved ejection fraction (Acute) GAL[place]A (acute kidney injury) (Acute) Klebsiella pneumonia (Acute) Acute respiratory failure with hypoxia and hypercapnia (Acute) Pneumococcal pneumonia (Acute) Metabolic encephalopathy (Resolved) Chest pain (Resolved) Respiratory failure, acute (Resolved) 1. Acute hypoxic and hypercapnic respiratory failure. * stable, but not progressing. * self-extubation on 12/22 * new RUL infiltrate * multifactorial: PNA, CHF, aspiration pneumonitis, EMILIA, obesity hypoventilation * wean oxygen as tolerated * CCM mgmt appreciated * BDs and steroid * trach and PEG on 12/26 * on empiric heparin for possible VTE 2. Pneumococcal and Klebsiella Pneumonia: * Levaquin * pulm toilet 3. HFpEF * EF 60% from echo 12/12 * lasix stopped due to GALILEA * ACEi stopped due to GALILEA 4. Fevers * ongoing * low grade, up to 37.7 at 2000 on 12/21 * had been persistent since admission * BCx on 5th negative * TTE on the 5th negative * UA, UCx negative * other than sputum cultures, infectious work up has been negative * schedule acetaminophen * reapeat bcx and UA 5. GALILEA * resolved * likely due to overdiuresis * monitor * lasix and lisinopril stopped 6. DM2 * uncontrolled * LANTUS 35 BID * consider insulin gtt to keep MBS < 200 in a critically ill patient 7. DVT proph: heparin Code Visit Inpatient E&M: 20120 Subs Hosp L2
--- NOTE | 2017-12-24 09:51 | PCM.CONS.GEN ---
Problem List (1) Aspiration pneumonia due to food (regurgitated) Status: Acute Qualifiers: Laterality: right Lung location: upper lobe of lung Qualified Code(s): J69.0 - Pneumonitis due to inhalation of food and vomit Reason for Consult Date of Consultation: 12/24/17 History of Present Illness: Patient was admitted through the ED on 12/12/2017 after he had complained in his long term shortness of breath for the past 5 days. The long term call the ED about 3 days ago and wanted to send him into the ED but patient refused when EMS arrived. This morning he had worsening of his shortness of breath and agreed to be brought to the ED. On the way to the ED in the EMS, he went into respiratory arrest was being bagged by EMS upon arrival. On arrival in the ED, his vitals were 98.8 and blood pressure was 126/65 and he was saturating 96% on room air. EKG done in the ED showed sinus rhythm with diffuse T wave inversions and initial troponin was 0.022. Chest x-ray showed cardiomegaly and pulmonary congestion. He was emergently intubated in the ED and admitted to be managed for respiratory arrest due to 2 CHF exacerbation. I was unable to take history from patient does at time of review because he was intubated and sedated and was poorly responsive. Patient now has a 12-day history of being on the ventilation he self extubated and and on upon reintubation was noted to have his tube feeds in his tracheal tube. He will be undergoing a tracheostomy this coming Tuesday and I have been consulted to place a PEG tube in him prior to this. It is difficult to communicate with the patient since he is on a ventilator and is giving propofol for sedation. I have reached out to his power of patent attorney but he has not called me back yet. Dr. Campos has spoken to the power of patent attorney about the plan for the trach and PEG and there is agreement on this. Past Medical History Past Medical History (Chronic Problems): Chronic Problems (Last Updated 12/24/17 @ 08:36 by Juan Manuel Subramanian DO) Pure hypercholesterolemia (Chronic) History of anterolateral myocardial infarction (Chronic 05/03/12) History of cardiac arrest (Chronic 06/22/17) Hypersomnia (Chronic) EMILIA (obstructive sleep apnea) (Chronic) History of cardiac catheterization (Chronic 02/25/16) 05/03/12 @ [facility] per DJN; 02/21/2014 per DJN @ [facility] (no stents needed); 02/23 16 per DJN @ [facility] prior to PCI and GISSEL to proximal LAD; 06/28/17 after cardiac arrest, prior to GISSEL of mid LCX Nicotine dependence, cigarettes, uncomplicated (Chronic) Chronic systolic congestive heart failure (Chronic) Presence of stent in coronary artery (Chronic 06/29/17) PCI/stent LAD w/ 4.0 x 32 mm Promus 2012 ; PCI/GISSEL to Prox LAD w/ 4.0 x 20 mm Promus 02/25/16 for instent restenosis; PTCA/GISSEL to LCX 06/29/2017 Atherosclerotic heart disease of [place] coronary artery without angina pectoris (Chronic) PCI/stent LAD w/ 4.0 x 32 mm Promus 2012; PCI/GISSEL to Prox LAD w/ 4.0 x 20 mm Promus 02/25/16 for instent restenosis; PTCA/GISSEL to LCx in June 2017; Asthma-COPD overlap syndrome (Chronic) FEV1 46% (01/11/2017) DM2 (diabetes mellitus, type 2) (Chronic) NSTEMI (non-ST elevated myocardial infarction) (Chronic 12/21/16) 02/20/16 Venous stasis of lower extremity (Chronic) Ischemic cardiomyopathy (Chronic) EF of 35% on Cath in February of 2014; 50% per echo 06/21/2017 Medical History: Medical History (Last Reviewed 12/24/17 @ 09:53 by Robert Paredes MD) Pure hypercholesterolemia (Chronic) E78.00 History of anterolateral myocardial infarction (Chronic) Onset Date: 05/03/12 I25.2 History of cardiac arrest (Chronic) Onset Date: 06/22/17 Z86.74 Hypersomnia (Chronic) G47.10 EMILIA (obstructive sleep apnea) (Chronic) G47.33 Nicotine dependence, cigarettes, uncomplicated (Chronic) F17.210 EMILIA (obstructive sleep apnea) (Suspected) G47.33 Acute respiratory failure with hypoxia and hypercapnia (Acute) J96.01, J96.02 Pneumococcal pneumonia (Acute) J13 Metabolic encephalopathy (Resolved) G93.41 Heart failure with reduced ejection fraction (Inactive) I50.20 Chronic systolic congestive heart failure (Chronic) I50.22 Atherosclerotic heart disease of [place] coronary artery without angina pectoris (Chronic) I25.10 PCI/stent LAD w/ 4.0 x 32 mm Promus 2012; PCI/GISSEL to Prox LAD w/ 4.0 x 20 mm Promus 02/25/16 for instent restenosis; PTCA/GISSEL to LCx in June 2017; Asthma-COPD overlap syndrome (Chronic) J44.9 FEV1 46% (01/11/2017) DM2 (diabetes mellitus, type 2) (Chronic) E11.9 NSTEMI (non-ST elevated myocardial infarction) (Chronic) Onset Date: 12/21/16 I21.4 02/20/16 Venous stasis of lower extremity (Chronic) I87.8 Ischemic cardiomyopathy (Chronic) I25.5 EF of 35% on Cath in February of 2014; 50% per echo 06/21/2017 Hypoxia R09.02 Chest pain (Resolved) R07.9 Respiratory failure, acute (Resolved) J96.00 Hyponatremia (Inactive) E87.1 Allergies adhesive tape Adverse Reaction (Verified 11/10/17 12:17) Rash Home Medications: Ambulatory Orders Medication Instructions Recorded Aspirin E.C. [Ecotrin] 81 mg PO DAILY@0800 12/27/15 Albuterol Aerosols [Ventolin 2.5 mg INHALATION TID 01/17/17 Aerosols] Meloxicam [Mobic] 15 mg PO DAILY 01/17/17 Polyethylene Glycol 3350 [Miralax] 17 gm PO DAILY 01/17/17 potassium chloride ER 20 mEq 20 meq PO DAILY 06/13/17 tablet,extended release Clopidogrel Bisulfate [Plavix] 75 mg PO DAILY 06/20/17 Gabapentin [Neurontin] 400 mg PO TID 06/20/17 Metformin HCl [Glucophage] 1,000 mg PO BIDCM 06/20/17 Montelukast [Singulair] 10 mg PO DAILY 06/20/17 Carvedilol [Coreg (Beta Kareem)] 3.125 mg PO BID #90 tab 07/04/17 Furosemide [Lasix] 80 mg PO BID@1000,1800 #90 tab 07/04/17 fluticasone-vilanterol INHALATION QDAY 07/27/17 pantoprazole 20 mg tablet,delayed 20 mg PO QDAY 07/27/17 release prednisone 10 mg tablet 10 mg PO QDAY 07/27/17 losartan 25 mg tablet 25 mg PO QDAY 08/04/17 atorvastatin 40 mg tablet 40 mg PO DAILY 11/10/17 Fluticasone/Vilanterol [Breo 1 puff INHALATION DAILY 12/12/17 Ellipta 200-25 Mcg INH] Gabapentin [Neurontin] 700 mg PO QHS 12/12/17 Prednisone 10 mg PO DAILY 12/12/17 Surgical History: Surgical History (Last Reviewed 12/24/17 @ 09:53 by Robert Paredes MD) History of cardiac catheterization (Chronic) Onset Date: 02/25/16 Z98.890 05/03/12 @ [facility] per DJN; 02/21/2014 per DJN @ [facility] (no stents needed); 02/23 16 per DJN @ [facility] prior to PCI and GISSEL to proximal LAD; 06/28/17 after cardiac arrest, prior to GISSEL of mid LCX Presence of stent in coronary artery (Chronic) Onset Date: 06/29/17 Z95.5 PCI/stent LAD w/ 4.0 x 32 mm Promus 2012 ; PCI/GISSEL to Prox LAD w/ 4.0 x 20 mm Promus 02/25/16 for instent restenosis; PTCA/GISSEL to LCX 06/29/2017 Amputated great toe of left foot Z89.412 History of surgery on arm Z98.890 Surgery on left arm for infected muscle Surgical History: no surgical history Psychiatric History: No pertinent psych hx Smoking Status: Current every day smoker Alcohol: None Drugs: None - *Family History Maternal Family History: Family History (Last Reviewed 11/10/17 @ 12:19 by Mirna Patiño) Mother Diabetes Heart disease History Items: No pertinent history, - - Unable to obtain as the patient is intubated and sedated Review of Systems Unable to obtain accurate/complete ROS d/t: Patient is currently intubated and is unable to be communicative. Patient Problems: Active and Suspected Problems (Last Updated 12/24/17 @ 08:36 by Juan Manuel Subramanian DO) Aspiration pneumonia due to food (regurgitated) (Acute) Heart failure with preserved ejection fraction (Acute) GALILEA (acute kidney injury) (Acute) Klebsiella pneumonia (Acute) Acute respiratory failure with hypoxia and hypercapnia (Acute) Pneumococcal pneumonia (Acute) - Physical Exam Abdomen: Bowel Sounds Present, Soft, Non Tender, Obese - Morbidly obese Vital Signs Temp Pulse Resp BP Pulse Ox 100.0 F H 79 19 H 104/56 L 92 12/24/17 09:00 12/24/17 09:00 12/24/17 09:00 12/24/17 09:00 12/24/17 09:00 Oxygen Flow Rate (L/min) 50 Oxygen Delivery Method Mechanical Ventilator Weight: 312 lb 9.848 oz Body Mass Index (BMI) 55.5 Finger Stick Blood Glucose 239 Intake and Output for Last 24 Hours 12/22/17 12/23/17 12/24/17 23:59 23:59 23:59 Intake Total 1445.8 / 1445.8 5058.0 / 5058.0 1606.5 / 1606.5 Output Total 2100 / 2100 1875 / 1875 1300 / 1300 Balance -654.2 / -654.2 3183.0 / 3183.0 306.5 / 306.5 Microbiology Past 72 Hours 12/20/17 05:00 Gram Stain - Final Sputum, Induced/Lukens Respiratory Culture - Final Yeast, not Audra albicans Laboratory Tests Past 24 Hrs 12/24/17 12/24/17 12/24/17 04:22 04:22 04:22 WBC 6.3 RBC 4.44 L Hgb 12.2 L Hct 42.4 MCV 95.5 H MCH 27.5 MCHC 28.8 L RDW 14.8 H RDW Differential 51.7 H Plt Count 175 MPV 10.8 Immature Gran % (Auto) 0.200 Neut % (Auto) 83.9 H Lymph % (Auto) 12.3 L [place] % (Auto) 3.6 Eos % (Auto) 0.0 Baso % (Auto) 0.0 Absolute Neuts (auto) 5.3 Absolute Lymphs (auto) 0.78 L Total Counted Not Reportable APTT 59.2 H Sodium 151 H Potassium 5.2 H Chloride 111 H Carbon Dioxide 34.0 H Anion Gap 6 BUN 49 H Creatinine 1.05 Estim Creat Clear Calc 73.29 Est GFR (MDRD) Af Amer 93 Est GFR (MDRD) Non-Af 77 BUN/Creatinine Ratio 46.7 H Glucose 308 H Calcium 8.9 Total Bilirubin 0.40 AST 22 ALT 32 Alkaline Phosphatase 56 Total Protein 7.0 Albumin 2.8 L Globulin 4.2 Albumin/Globulin Ratio 0.7 L POC Glucose 11/12/24/17 12/23/17 05:55 00:13 21:41 POC Glucose 269 H 230 H 198 H 12/23/17 12/23/17 18:20 12:44 POC Glucose 227 H 217 H Assessment/Plan All Active Problems (Last Updated 12/24/17 @ 08:36 by Juan Manuel Subramanian DO) Aspiration pneumonia due to food (regurgitated) (Acute) Heart failure with preserved ejection fraction (Acute) GALILEA (acute kidney injury) (Acute) Klebsiella pneumonia (Acute) Acute respiratory failure with hypoxia and hypercapnia (Acute) Pneumococcal pneumonia (Acute) Metabolic encephalopathy (Resolved) Chest pain (Resolved) Respiratory failure, acute (Resolved) At this point I agree with the placement of a PEG tube as well as his tracheostomy. In order for him to get better he will need to be in positive nitrogen balance with him failing to be able to protect his airway I think the best thing to do is to place the PEG tube so that we can give him adequate amount of nutrition for at least 6 weeks and if at that time he is swallowing better and and passes a cookie swallow test then we can remove it but at the present time I think the best thing to do is to be able to give him adequate amounts of nutrition. I have communicated this with the patient I am unclear whether or not he completely understands this I am waiting to discuss this with his power of patent attorney so that we can proceed.
--- NOTE | 2017-12-24 09:52 | CM.UR ---
This RN participated in interdisciplinary rounds on this patient today. He remains on vent. Patient is getting a PICC placed today, a PEG placed tomorrow and plan is for a trach. Determined today that he will need LTACH placement. Will continue to follow to assist in arrangements. Earnest Alberto RN, [facility].
[2017-12-24] MEDS: levoFLOXacin IV 750 MG/150 ML BAG 100 MG IV (09:55)
[2017-12-24] MEDS: Famotidine 20 MG Tablet GT ×2 (09:55→21:45)
[2017-12-24] MEDS: Aspirin 81 MG TAB.CHEW GT (09:56)
[2017-12-24] MEDS: Furosemide 20 MG/2 ML VIAL IV ×2 (09:56→17:17)
[2017-12-24] MEDS: Clopidogrel Bisulfate 75 MG Tablet GT (09:56)
--- NOTE | 2017-12-24 09:56 | CON.PCM_ITS ---
Problem List (1) Aspiration pneumonia due to food (regurgitated) Status: Acute Qualifiers: Laterality: right Lung location: upper lobe of lung Qualified Code(s): J69.0 - Pneumonitis due to inhalation of food and vomit Reason for Consult Date of Consultation: 12/24/17 History of Present Illness: Patient was admitted through the ED on 12/12/2017 after he had complained in his fdc shortness of breath for the past 5 days. The fdc call the ED about 3 days ago and wanted to send him into the ED but patient refused when EMS arrived. This morning he had worsening of his shortness of breath and agreed to be brought to the ED. On the way to the ED in the EMS, he went into respiratory arrest was being bagged by EMS upon arrival. On arrival in the ED, his vitals were 98.8 and blood pressure was 126/65 and he was saturating 96% on room air. EKG done in the ED showed sinus rhythm with diffuse T wave inversions and initial troponin was 0.022. Chest x-ray showed cardiomegaly and pulmonary congestion. He was emergently intubated in the ED and admitted to be managed for respiratory arrest due to 2 CHF exacerbation. I was unable to take history from patient does at time of review because he was intubated and sedated and was poorly responsive. Patient now has a 12-day history of being on the ventilation he self extubated and and on upon reintubation was noted to have his tube feeds in his tracheal tube. He will be undergoing a tracheostomy this coming Tuesday and I have been consulted to place a PEG tube in him prior to this. It is difficult to communicate with the patient since he is on a ventilator and is giving propofol for sedation. I have reached out to his power of plastic cablemaking machine operator but he has not called me back yet. Dr. Campos has spoken to the power of plastic cablemaking machine operator about the plan for the trach and PEG and there is agreement on this. Past Medical History Past Medical History (Chronic Problems): Chronic Problems (Last Updated 12/24/17 @ 08:36 by Juan Manuel Subramanian DO) Pure hypercholesterolemia (Chronic) History of anterolateral myocardial infarction (Chronic 05/03/12) History of cardiac arrest (Chronic 06/22/17) Hypersomnia (Chronic) EMILIA (obstructive sleep apnea) (Chronic) History of cardiac catheterization (Chronic 02/25/16) 05/03/12 @ [facility] per DJN; 02/21/2014 per DJN @ [facility] (no stents needed); 02/23 16 per DJN @ [facility] prior to PCI and GISSEL to proximal LAD; 06/28/17 after cardiac arrest, prior to GISSEL of mid LCX Nicotine dependence, cigarettes, uncomplicated (Chronic) Chronic systolic congestive heart failure (Chronic) Presence of stent in coronary artery (Chronic 06/29/17) PCI/stent LAD w/ 4.0 x 32 mm Promus 2012 ; PCI/GISSEL to Prox LAD w/ 4.0 x 20 mm Promus 02/25/16 for instent restenosis; PTCA/GISSEL to LCX 06/29/2017 Atherosclerotic heart disease of [place] coronary artery without angina pectoris (Chronic) PCI/stent LAD w/ 4.0 x 32 mm Promus 2012; PCI/GISSEL to Prox LAD w/ 4.0 x 20 mm Promus 02/25/16 for instent restenosis; PTCA/GISSEL to LCx in June 2017; Asthma-COPD overlap syndrome (Chronic) FEV1 46% (01/11/2017) DM2 (diabetes mellitus, type 2) (Chronic) NSTEMI (non-ST elevated myocardial infarction) (Chronic 12/21/16) 02/20/16 Venous stasis of lower extremity (Chronic) Ischemic cardiomyopathy (Chronic) EF of 35% on Cath in February of 2014; 50% per echo 06/21/2017 Medical History: Medical History (Last Reviewed 12/24/17 @ 09:53 by Robert Paredes MD) Pure hypercholesterolemia (Chronic) E78.00 History of anterolateral myocardial infarction (Chronic) Onset Date: 05/03/12 I25.2 History of cardiac arrest (Chronic) Onset Date: 06/22/17 Z86.74 Hypersomnia (Chronic) G47.10 EMILIA (obstructive sleep apnea) (Chronic) G47.33 Nicotine dependence, cigarettes, uncomplicated (Chronic) F17.210 EMILIA (obstructive sleep apnea) (Suspected) G47.33 Acute respiratory failure with hypoxia and hypercapnia (Acute) J96.01, J96.02 Pneumococcal pneumonia (Acute) J13 Metabolic encephalopathy (Resolved) G93.41 Heart failure with reduced ejection fraction (Inactive) I50.20 Chronic systolic congestive heart failure (Chronic) I50.22 Atherosclerotic heart disease of [place] coronary artery without angina pectoris (Chronic) I25.10 PCI/stent LAD w/ 4.0 x 32 mm Promus 2012; PCI/GISSEL to Prox LAD w/ 4.0 x 20 mm Promus 02/25/16 for instent restenosis; PTCA/GISSEL to LCx in June 2017; Asthma-COPD overlap syndrome (Chronic) J44.9 FEV1 46% (01/11/2017) DM2 (diabetes mellitus, type 2) (Chronic) E11.9 NSTEMI (non-ST elevated myocardial infarction) (Chronic) Onset Date: 12/21/16 I21.4 02/20/16 Venous stasis of lower extremity (Chronic) I87.8 Ischemic cardiomyopathy (Chronic) I25.5 EF of 35% on Cath in February of 2014; 50% per echo 06/21/2017 Hypoxia R09.02 Chest pain (Resolved) R07.9 Respiratory failure, acute (Resolved) J96.00 Hyponatremia (Inactive) E87.1 Allergies adhesive tape Adverse Reaction (Verified 11/10/17 12:17) Rash Home Medications: Ambulatory Orders Medication Instructions Recorded Aspirin E.C. [Ecotrin] 81 mg PO DAILY@0800 12/27/15 Albuterol Aerosols [Ventolin 2.5 mg INHALATION TID 01/17/17 Aerosols] Meloxicam [Mobic] 15 mg PO DAILY 01/17/17 Polyethylene Glycol 3350 [Miralax] 17 gm PO DAILY 01/17/17 potassium chloride ER 20 mEq 20 meq PO DAILY 06/13/17 tablet,extended release Clopidogrel Bisulfate [Plavix] 75 mg PO DAILY 06/20/17 Gabapentin [Neurontin] 400 mg PO TID 06/20/17 Metformin HCl [Glucophage] 1,000 mg PO BIDCM 06/20/17 Montelukast [Singulair] 10 mg PO DAILY 06/20/17 Carvedilol [Coreg (Beta Kareem)] 3.125 mg PO BID #90 tab 07/04/17 Furosemide [Lasix] 80 mg PO BID@1000,1800 #90 tab 07/04/17 fluticasone-vilanterol INHALATION QDAY 07/27/17 pantoprazole 20 mg tablet,delayed 20 mg PO QDAY 07/27/17 release prednisone 10 mg tablet 10 mg PO QDAY 07/27/17 losartan 25 mg tablet 25 mg PO QDAY 08/04/17 atorvastatin 40 mg tablet 40 mg PO DAILY 11/10/17 Fluticasone/Vilanterol [Breo 1 puff INHALATION DAILY 12/12/17 Ellipta 200-25 Mcg INH] Gabapentin [Neurontin] 700 mg PO QHS 12/12/17 Prednisone 10 mg PO DAILY 12/12/17 Surgical History: Surgical History (Last Reviewed 12/24/17 @ 09:53 by Robert Paredes MD) History of cardiac catheterization (Chronic) Onset Date: 02/25/16 Z98.890 05/03/12 @ [facility] per DJN; 02/21/2014 per DJN @ [facility] (no stents needed); 02/23 16 per DJN @ [facility] prior to PCI and GISSEL to proximal LAD; 06/28/17 after cardiac arrest, prior to GISSEL of mid LCX Presence of stent in coronary artery (Chronic) Onset Date: 06/29/17 Z95.5 PCI/stent LAD w/ 4.0 x 32 mm Promus 2012 ; PCI/GISSEL to Prox LAD w/ 4.0 x 20 mm Promus 02/25/16 for instent restenosis; PTCA/GISSEL to LCX 06/29/2017 Amputated great toe of left foot Z89.412 History of surgery on arm Z98.890 Surgery on left arm for infected muscle Surgical History: no surgical history Psychiatric History: No pertinent psych hx Smoking Status: Current every day smoker Alcohol: None Drugs: None - *Family History Maternal Family History: Family History (Last Reviewed 11/10/17 @ 12:19 by Mirna Patiño) Mother Diabetes Heart disease History Items: No pertinent history, - - Unable to obtain as the patient is i ntubated and sedated Review of Systems Unable to obtain accurate/complete ROS d/t: Patient is currently intubated and is unable to be communicative. Patient Problems: Active and Suspected Problems (Last Updated 12/24/17 @ 08:36 by Juan Manuel Subramanian DO) Aspiration pneumonia due to food (regurgitated) (Acute) Heart failure with preserved ejection fraction (Acute) GALILEA (acute kidney injury) (Acute) Klebsiella pneumonia (Acute) Acute respiratory failure with hypoxia and hypercapnia (Acute) Pneumococcal pneumonia (Acute) - Physical Exam Abdomen: Bowel Sounds Present, Soft, Non Tender, Obese - Morbidly obese Vital Signs Temp Pulse Resp BP Pulse Ox 100.0 F H 79 19 H 104/56 L 92 12/24/17 09:00 12/24/17 09:00 12/24/17 09:00 12/24/17 09:00 12/24/17 09:00 Oxygen Flow Rate (L/min) 50 Oxygen Delivery Method Mechanical Ventilator Weight: 312 lb 9.848 oz Body Mass Index (BMI) 55.5 Finger Stick Blood Glucose 239 Intake and Output for Last 24 Hours 12/22/17 12/23/17 12/24/17 23:59 23:59 23:59 Intake Total 1445.8 / 1445.8 5058.0 / 5058.0 1606.5 / 1606.5 Output Total 2100 / 2100 1875 / 1875 1300 / 1300 Balance -654.2 / -654.2 3183.0 / 3183.0 306.5 / 306.5 Microbiology Past 72 Hours 12/20/17 05:00 Gram Stain - Final Sputum, Induced/Lukens Respiratory Culture - Final Yeast, not Audra albicans Laboratory Tests Past 24 Hrs 12/24/17 12/24/17 12/24/17 04:22 04:22 04:22 WBC 6.3 RBC 4.44 L Hgb 12.2 L Hct 42.4 MCV 95.5 H MCH 27.5 MCHC 28.8 L RDW 14.8 H RDW Differential 51.7 H Plt Count 175 MPV 10.8 Immature Gran % (Auto) 0.200 Neut % (Auto) 83.9 H Lymph % (Auto) 12.3 L [place] % (Auto) 3.6 Eos % (Auto) 0.0 Baso % (Auto) 0.0 Absolute Neuts (auto) 5.3 Absolute Lymphs (auto) 0.78 L Total Counted Not Reportable APTT 59.2 H Sodium 151 H Potassium 5.2 H Chloride 111 H Carbon Dioxide 34.0 H Anion Gap 6 BUN 49 H Creatinine 1.05 Estim Creat Clear Calc 73.29 Est GFR (MDRD) Af Amer 93 Est GFR (MDRD) Non-Af 77 BUN/Creatinine Ratio 46.7 H Glucose 308 H Calcium 8.9 Total Bilirubin 0.40 AST 22 ALT 32 Alkaline Phosphatase 56 Total Protein 7.0 Albumin 2.8 L Globulin 4.2 Albumin/Globulin Ratio 0.7 L POC Glucose 11/12/24/17 12/23/17 05:55 00:13 21:41 POC Glucose 269 H 230 H 198 H 12/23/17 12/23/17 18:20 12:44 POC Glucose 227 H 217 H Assessment/Plan All Active Problems (Last Updated 12/24/17 @ 08:36 by Juan Manuel Subramanian DO) Aspiration pneumonia due to food (regurgitated) (Acute) Heart failure with preserved ejection fraction (Acute) GALILEA (acute kidney injury) (Acute) Klebsiella pneumonia (Acute) Acute respiratory failure with hypoxia and hypercapnia (Acute) Pneumococcal pneumonia (Acute) Metabolic encephalopathy (Resolved) Chest pain (Resolved) Respiratory failure, acute (Resolved) At this point I agree with the placement of a PEG tube as well as his tracheostomy. In order for him to get better he will need to be in positive nitrogen balance with him failing to be able to protect his airway I think the best thing to do is to place the PEG tube so that we can give him adequate amount of nutrition for at least 6 weeks and if at that time he is swallowing better and and passes a cookie swallow test then we can remove it but at the present time I think the best thing to do is to be able to give him adequate amounts of nutrition. I have communicated this with the patient I am unclear whether or not he completely understands this I am waiting to discuss this with his power of plastic cablemaking machine operator so that we can proceed.
[2017-12-24] MEDS: Chlorhexidine 15 ML PO ×2 (10:04→21:41)
[2017-12-24 11:41] LABS: Bedside Glucose 230 mg/dL (70-110)
[2017-12-24] MEDS: fentaNYL drip 100 ML 7.5 MCG IV (13:39)
[2017-12-24 17:31] LABS: Bedside Glucose 244 mg/dL (70-110)
--- NOTE | 2017-12-24 19:40 | NURSING ---
PICC RN inserting PICC at this time. FAITH attempt was unsuccessful. Now attempting BETSY. Pt is cooperating. Pulse ox dropped during procedure to 76%. Turned up FiO2 to 70% during procedure. Pt recovered well after procedure, and FiO2 was reduced to 45%. Pt pulse ox 89%.
--- NOTE | 2017-12-24 19:45 | CPS ---
FIO2 INCREASED DURING PICC LINE PROCEDURE
[2017-12-24] MEDS: Atorvastatin Calcium 40 MG Tablet GT (21:44)
[2017-12-24 23:50] LABS: Bedside Glucose 193 mg/dL (70-110)
[2017-12-25] VITALS (41 sets, daily range): BP systolic 84–117; BP diastolic 53–84; PULSE 68–94; RESP 14–20; TEMP 36.7–37.7; O2SAT 84–95
[2017-12-25] MEDS: Albuterol 2.5 MG/3 ML VIAL.NEB. INHALATION ×4 (00:09→19:34)
[2017-12-25] MEDS: 0.9% NaCl Peripheral Flush Adult/Peds IV ×4 (00:30→21:19)
[2017-12-25] MEDS: Propofol 10MG/Ml 1,000 MG/100 ML Bottle 9.852 MG CONT INF ×3 (01:51→20:03)
[2017-12-25] MEDS: fentaNYL drip 100 ML 7.5 MCG IV ×2 (04:00→16:33)
[2017-12-25 05:06] LABS: Absolute Lymphocyte Count 0.88 X10^3/ul (0.83-4.51); Absolute Neutrophil Count 5.2 X10^3/uL (2.0-7.7); Eosinophil# 0.01 X10^3/uL; Eosinophils% 0.2 % (0-5); Hematocrit 41.5 % (40-54); Hemoglobin 12.3 g/dl (13.0-16.5); Lymphocyte # 0.88 X10^3/ul (4.0); Lymphocyte % 13.9 % (19-41); Mean Corp Hgb Conc 29.6 g/gl (32-36); Mean Corpuscular Volume 94.3 fL (80-94); Mean Platelet Vol. 11.7 fl (6.2-12.0); Monocyte# 0.26 X10^3/uL; Monocyte% 4.1 % (0-10); Neutrophil # 5.17 X10^3/uL (2.7-7.7); Neutrophil % 81.3 % (47-70); Platelet Count 179 K/mm3 (150-450); RBC Distribution Width CV 14.7 % (11.6-14.6); RBC Distribution Width SD 49.1 fl (35.1-43.9); White Blood Count 6.4 K/mm3 (4.4-11.0)
[2017-12-25 05:12] LABS: POSITIVE COUNT NO; POSITIVE DIFFERENTIAL NO; POSITIVE MORPHOLOGY NO
[2017-12-25 05:23] LABS: Anion Gap 8 (5-15); BUN 44 mg/dL (7-18); BUN/Creat Ratio 49.1 RATIO (10-20); Calcium,Total 9.1 mg/dL (8.5-10.1); Chloride 110 mmol/L (98-107); EST Glomerular Filtration Rate 92 mL/min (>60); Est Glom Filt Rate - Afr Amer 111 mL/min (>60); Glucose 202 mg/dL (74-106); Potassium 4.8 mmol/L (3.5-5.1); Sodium Level 152 mmol/L (136-145)
[2017-12-25] MEDS: Insulin Lispro 100 UNIT/ML INSULN.PEN SC ×2 (05:42→18:21)
[2017-12-25 05:56] LABS: Bedside Glucose 192 mg/dL (70-110)
--- NOTE | 2017-12-25 07:02 | NURSING ---
Dr. Paredes and Dr. Campos in at pt bedside to begin procedure of PEG tube insertion. Endo RN also at bedside.
--- NOTE | 2017-12-25 07:41 | PN_ITS ---
Subjective: Patient did okay overnight. Patient did have some improvement in oxygenation, but significant secretions have been reported by nursing and respiratory. Patient's blood pressure remains marginal, but urine output is doing well. No need for pressors or boluses overnight. Patient did have a fever overnight. Nursing also reported periodic nonsustained V. tach without hemodynamic compromise. Objective: Conscious sedation provided for PEG tube. At 7:03 AM, patient was given 30 mg of propofol. Patient was monitored until 7:10 AM when the procedure was concluded. Patient received a total of 50 mg of additional propofol. Patient did have 100 mcg of fentanyl and propofol 10 mg continuous infusion during the procedure that were not interrupted. Patient tolerated the procedure well. Surgery reported mild gastritis with significant debris throughout the esophagus. General: Cooperative, - - Intubated and sedated. Good vent synchrony noted. Morbidly obese. Appears older than stated age. HEENT: Atraumatic, PERRLA, EOMI, Normocephalic, - - No scleral icterus or injection noted. Oral: Moist Mucosa, No Gingival or Mucosal Lesions/ Ulcerations Neck: Supple, No JVD, No Nodes, Trachea Midline Lungs: No wheeze, No rales, Diminished, Rhonchi - Right greater than left Cardiovascular: Regular rate, Regular Rhythm, Normal S1, Normal S2, No murmurs, No rub noted, No Gallop Abdomen: Bowel Sounds Present, Soft, Non Tender, Non-Distended, Obese Extremities: No cyanosis, Capillary Refill Less than 3 Seconds, Clubbing, Edema - Trace Skin: No rashes, No breakdown Musculoskeletal: No Tenderness to Palpation of Joints or Extremities, No Muscle Wasting Lymphatic: No Cervical, Supraclavicular, or Inguinal Adenopathy Neurological: Cranial nerves II-XII grossly intact, Neuro grossly intact, Motor Exam 5/5 strength throughout Psych/Mental Status: Flat Affect Vital Signs Temp Pulse Resp BP Pulse Ox 37.3 C H 71 16 87/62 L 92 12/25/17 04:00 12/25/17 07:00 12/25/17 07:00 12/25/17 07:00 12/25/17 07:00 Oxygen Flow Rate (L/min) 50 Oxygen Delivery Method Mechanical Ventilator Weight: 141.7 kg Body Mass Index (BMI) 55.5 Finger Stick Blood Glucose 193 Intake and Output for Last 24 Hours 12/23/17 12/24/1718 23:59 23:59 23:59 Intake Total 5058.0 / 5058.0 3559.5 / 3559.5 1498.2 / 1498.2 Output Total 1875 / 1875 2600 / 2600 1220 / 1220 Balance 3183.0 / 3183.0 959.5 / 959.5 278.2 / 278.2 Labs (Last 48 Hours) 12/23/17 12/23/17 12/23/17 08:30 12:44 18:20 WBC RBC Hgb Hct MCV MCH MCHC RDW RDW Differential Plt Count MPV Immature Gran % (Auto) Neut % (Auto) Lymph % (Auto) [place] % (Auto) Eos % (Auto) Baso % (Auto) Absolute Neuts (auto) Absolute Lymphs (auto) Total Counted APTT Sodium Potassium Chloride Carbon Dioxide Anion Gap BUN Creatinine Estim Creat Clear Calc Est GFR (MDRD) Af Amer Est GFR (MDRD) Non-Af BUN/Creatinine Ratio Glucose Calcium Total Bilirubin AST ALT Alkaline Phosphatase Total Protein Albumin Globulin Albumin/Globulin Ratio Urine Color Yellow Urine Clarity Sl. Cloudy Urine pH 6.0 Ur Specific [place] 1.015 Urine Protein Negative Urine Glucose (UA) Normal Urine Ketones Negative Urine Occult Blood Negative Urine Nitrite Negative Urine Bilirubin Negative Urine Urobilinogen Normal Ur Leukocyte Esterase 25 H Urine RBC 0 SEEN Urine WBC 0-5 SEEN Ur Squamous Epith Cells 0 SEEN Urine Bacteria RARE Urine Mucus 0 SEEN POC Glucose 217 H 227 H 12/23/17 12/24/17 12/24/17 21:41 00:13 04:22 WBC RBC Hgb Hct MCV MCH MCHC RDW RDW Differential Plt Count MPV Immature Gran % (Auto) Neut % (Auto) Lymph % (Auto) [place] % (Auto) Eos % (Auto) Baso % (Auto) Absolute Neuts (auto) Absolute Lymphs (auto) Total Counted APTT 59.2 H Sodium Potassium Chloride Carbon Dioxide Anion Gap BUN Creatinine Estim Creat Clear Calc Est GFR (MDRD) Af Amer Est GFR (MDRD) Non-Af BUN/Creatinine Ratio Glucose Calcium Total Bilirubin AST ALT Alkaline Phosphatase Total Protein Albumin Globulin Albumin/Globulin Ratio Urine Color Urine Clarity Urine pH Ur Specific [place] Urine Protein Urine Glucose (UA) Urine Ketones Urine Occult Blood Urine Nitrite Urine Bilirubin Urine Urobilinogen Ur Leukocyte Esterase Urine RBC Urine WBC Ur Squamous Epith Cells Urine Bacteria Urine Mucus POC Glucose 198 H 230 H 12/24/17 12/24/17 12/24/17 04:22 04:22 05:55 WBC 6.3 RBC 4.44 L Hgb 12.2 L Hct 42.4 MCV 95.5 H MCH 27.5 MCHC 28.8 L RDW 14.8 H RDW Differential 51.7 H Plt Count 175 MPV 10.8 Immature Gran % (Auto) 0.200 Neut % (Auto) 83.9 H Lymph % (Auto) 12.3 L [place] % (Auto) 3.6 Eos % (Auto) 0.0 Baso % (Auto) 0.0 Absolute Neuts (auto) 5.3 Absolute Lymphs (auto) 0.78 L Total Counted Not Reportable APTT Sodium 151 H Potassium 5.2 H Chloride 111 H Carbon Dioxide 34.0 H Anion Gap 6 BUN 49 H Creatinine 1.05 Estim Creat Clear Calc 73.29 Est GFR (MDRD) Af Amer 93 Est GFR (MDRD) Non-Af 77 BUN/Creatinine Ratio 46.7 H Glucose 308 H Calcium 8.9 Total Bilirubin 0.40 AST 22 ALT 32 Alkaline Phosphatase 56 Total Protein 7.0 Albumin 2.8 L Globulin 4.2 Albumin/Globulin Ratio 0.7 L Urine Color Urine Clarity Urine pH Ur Specific [place] Urine Protein Urine Glucose (UA) Urine Ketones Urine Occult Blood Urine Nitrite Urine Bilirubin Urine Urobilinogen Ur Leukocyte Esterase Urine RBC Urine WBC Ur Squamous Epith Cells Urine Bacteria Urine Mucus POC Glucose 269 H 12/24/17 12/24/17 12/24/17 11:31 17:16 23:40 WBC RBC Hgb Hct MCV MCH MCHC RDW RDW Differential Plt Count MPV Immature Gran % (Auto) Neut % (Auto) Lymph % (Auto) [place] % (Auto) Eos % (Auto) Baso % (Auto) Absolute Neuts (auto) Absolute Lymphs (auto) Total Counted APTT Sodium Potassium Chloride Carbon Dioxide Anion Gap BUN Creatinine Estim Creat Clear Calc Est GFR (MDRD) Af Amer Est GFR (MDRD) Non-Af BUN/Creatinine Ratio Glucose Calcium Total Bilirubin AST ALT Alkaline Phosphatase Total Protein Albumin Globulin Albumin/Globulin Ratio Urine Color Urine Clarity Urine pH Ur Specific [place] Urine Protein Urine Glucose (UA) Urine Ketones Urine Occult Blood Urine Nitrite Urine Bilirubin Urine Urobilinogen Ur Leukocyte Esterase Urine RBC Urine WBC Ur Squamous Epith Cells Urine Bacteria Urine Mucus POC Glucose 230 H 244 H 193 H 12/25/17 12/25/17 12/25/17 04:55 04:55 05:40 WBC 6.4 RBC 4.40 L Hgb 12.3 L Hct 41.5 MCV 94.3 H MCH 28.0 MCHC 29.6 L RDW 14.7 H RDW Differential 49.1 H Plt Count 179 MPV 11.7 Immature Gran % (Auto) 0.500 Neut % (Auto) 81.3 H Lymph % (Auto) 13.9 L [place] % (Auto) 4.1 Eos % (Auto) 0.2 Baso % (Auto) 0.0 Absolute Neuts (auto) 5.2 Absolute Lymphs (auto) 0.88 Total Counted Not Reportable APTT Sodium 152 H Potassium 4.8 Chloride 110 H Carbon Dioxide 34.0 H Anion Gap 8 BUN 44 H Creatinine 0.90 Estim Creat Clear Calc 85.50 Est GFR (MDRD) Af Amer 111 Est GFR (MDRD) Non-Af 92 BUN/Creatinine Ratio 49.1 H Glucose 202 H Calcium 9.1 Total Bilirubin AST ALT Alkaline Phosphatase Total Protein Albumin Globulin Albumin/Globulin Ratio Urine Color Urine Clarity Urine pH Ur Specific [place] Urine Protein Urine Glucose (UA) Urine Ketones Urine Occult Blood Urine Nitrite Urine Bilirubin Urine Urobilinogen Ur Leukocyte Esterase Urine RBC Urine WBC Ur Squamous Epith Cells Urine Bacteria Urine Mucus POC Glucose 192 H Microbiology 12/23/17 08:30 Urine Catheter - [place] Urine Culture - Preliminary Culture exhibits no growth. 12/20/17 05:00 Sputum, Induced/Lukens Gram Stain - Final 12/20/17 05:00 Sputum, Induced/Lukens Respiratory Culture - Final Yeast, not Audra albicans Medical Necessity - Tobacco Use Smoking Status: Current every day smoker Assessment/Plan All Active Problems (Last Reviewed 12/24/17 @ 09:53 by Robert Paredes MD) Aspiration pneumonia due to food (regurgitated) (Acute) Heart failure with preserved ejection fraction (Acute) GALILEA (acute kidney injury) (Acute) Klebsiella pneumonia (Acute) Acute respiratory failure with hypoxia and hypercapnia (Acute) Pneumococcal pneumonia (Acute) Metabolic encephalopathy (Resolved) Chest pain (Resolved) Respiratory failure, acute (Resolved) RECOMMENDATIONS: 1. Resume tube feeds and increased free water flushes per surgery 2. Continue IV Solu-Medrol 40 mg every 12 hours and bronchodilators. 3. Wean FiO2 and PEEP as tolerated. 4. Continue antibiotics another 3 days 5. Await tracheostomy on Tuesday. 6. Continue current sedation regimen with a goal to maintain a RASS of -1 to 1. 7. Resume empiric heparin drip and Protonix. IMPRESSIONS: 1. Acute on chronic combined respiratory failure Patient with recent aspiration following self extubation on . Patient did have some fever overnight and respiratory is reporting increased secretions. Significant debris noted throughout the esophagus, so cannot exclude an element of reflux. Patient has received his PEG today and is scheduled for a tracheostomy tomorrow. Still with significant PEEP and FiO2 requirements to maintain saturations. 2. Metabolic encephalopathy Recent conscious sedation, but previously was nodding appropriately. Likely secondary to acute on chronic CO2 retention. Anticipate improvement with correction of the patient's underlying metabolic derangements. Minimize sedation as tolerated. 3. Decompensated heart failure/history of ischemic cardiomyopathy Patient is likely euvolemic at this time. We will continue to try to keep fluids even. Patient's sodium and chloride levels are elevated. Will increase free water flushes. Will attempt to keep patient at the current weight. 4. Diabetes mellitus Continue Accu-Cheks and sliding scale insulin coverage. The patient has been tolerant of tube feeds to date. Basal insulin will need to be reinitiated once patient has resume tube feeds 5. Obstructive sleep apnea The patient has a history of outpatient noncompliance with the use of nocturnal Pap therapy. He only utilizes supplemental oxygen on a nightly basis. 6. Ongoing tobacco dependence/super morbid obesity/history of medical noncompliance/hypertension Complicates care, management, recovery and prognosis. Nicotine replaceme nt therapy can be utilized while admitted to the hospital. 7. Acute kidney injury Resolved. Likely secondary to overdiuresis. All diuretics have been held for now. Will attempt to keep weight the same. JONE inhibitor will be discontinued. Continue to follow renal function on a daily basis. TIME: 35 minutes of critical care time was spent addressing the patient's acute on chronic combined respiratory failure, metabolic encephalopathy, decompensated heart failure, obstructive sleep apnea, review of all data and collaboration with the care team. (6:45 AM to 7:40 AM) Code Visit 9xxxx: [id number] Critical care first hour
--- NOTE | 2017-12-25 08:16 | OP.ENDO_ITS ---
Patient Name: Danie Mcgarry Procedure Date: 12/25/2017 6:48 AM Date of : 1960 Age: 57 Procedure: Upper GI endoscopy Indications: Therapeutic procedure, Place PEG due to aspiration risk, Place PEG because patient requires ventilator support Providers: Robert Paredes MD Medicines: Sedation Required Anesthesia Staff Assistance Patient Profile: This is a 57 year old male. Refer to note in patient chart for documentation of history and physical. asperation pnuemonia Complications: No immediate complications. Estimated blood loss: Minimal. Procedure: Pre-Anesthesia Assessment: - Prior to the procedure, a History and Physical was performed, and patient medications and allergies were reviewed. The patient's tolerance of previous anesthesia was also reviewed. The risks and benefits of the procedure and the sedation options and risks were discussed with the patient. All questions were answered, and informed consent was obtained. Prior Anticoagulants: The patient has taken heparin, last dose was 1 day prior to procedure. ASA Grade Assessment: IV - A patient with severe systemic disease that is a constant threat to life. After reviewing the risks and benefits, the patient was deemed in satisfactory condition to undergo the procedure. After obtaining informed consent, the endoscope was passed under direct vision. Throughout the procedure, the patient's blood pressure, pulse, and oxygen saturations were monitored continuously. The gastroscope was introduced through the mouth, and advanced to the second part of duodenum. The upper GI endoscopy was accomplished without difficulty. The patient tolerated the procedure well. Scope In: 7:05:20 AM Scope Out: 7:12:08 AM Total Procedure Duration Time 0 hours 6 minutes 48 seconds Findings: Food was found in the middle third of the esophagus. Striped mildly erythematous mucosa without bleeding was found on the greater curvature of the stomach. The examined duodenum was normal. Placement of an externally removable PEG with 1 T-fastener was successfully completed. The external bumper was at the 4.0 cm marking on the tube. Estimated blood loss was minimal. Impression: - Food in the middle third of the esophagus. - Erythematous mucosa in the greater curvature. - Normal examined duodenum. - An externally removable PEG placement was successfully completed. - No specimens collected. Recommendation: - Return patient to ICU until patient is stable. - NPO today. - Continue present medications. - Return to my office in 6 weeks. Procedure Code(s): --- Professional --- 52383, Esophagogastroduodenoscopy, flexible, transoral; with directed placement of percutaneous gastrostomy tube CPT copyright 2017 [employer]. All rights reserved. The codes documented in this report are preliminary and upon cosmetic sales review may be revised to meet current compliance requirements. MD Robert Gallo MD 12/25/2017 8:16:09 AM This report has been signed electronically. Number of Addenda: 0 Note Initiated On: 12/25/2017 6:48 AM
--- NOTE | 2017-12-25 08:22 | PCM.PN.HOSP ---
Patient Problems: Active and Suspected Problems (Last Reviewed 12/24/17 @ 09:53 by Robert Paredes MD) Aspiration pneumonia due to food (regurgitated) (Acute) Heart failure with preserved ejection fraction (Acute) GALILEA (acute kidney injury) (Acute) Klebsiella pneumonia (Acute) Acute respiratory failure with hypoxia and hypercapnia (Acute) Pneumococcal pneumonia (Acute) Subjective: status post PEG today. Vitals/I&O's: Vital Signs Temp Pulse Resp BP Pulse Ox 37.3 C H 71 16 87/62 L 92 12/25/17 04:00 12/25/17 07:49 12/25/17 07:00 12/25/17 07:00 12/25/17 07:00 Oxygen Flow Rate (L/min) 50 Oxygen Delivery Method Mechanical Ventilator Weight: 141.7 kg Body Mass Index (BMI) 55.5 Finger Stick Blood Glucose 193 Intake and Output for Last 24 Hours 12/23/17 12/24/17 12/25/17 23:59 23:59 23:59 Intake Total 5058.0 / 5058.0 3559.5 / 3559.5 1498.2 / 1498.2 Output Total 1875 / 1875 2600 / 2600 1220 / 1220 Balance 3183.0 / 3183.0 959.5 / 959.5 278.2 / 278.2 General: No apparent distress, - - somnolent. HEENT: Atraumatic, Normocephalic Oral: - - ETT and OG in place. Neck: No Nodes, Thyroid Normal Size and Texture Lungs: Clear to auscultation, Diminished Cardiovascular: Regular rate, Regular Rhythm, Normal S1, Normal S2, No murmurs Abdomen: Bowel Sounds Present, Soft, Non Tender, Non-Distended, No Hepato-splenomegaly Extremities: No edema, No Calf Tenderness Skin: No rashes, No breakdown, - - venous stasis dermatitis. Musculoskeletal: No Tenderness to Palpation of Joints or Extremities, No Muscle Wasting Psych/Mental Status: Normal Affect, Appropriate Microbiology Past 72 Hours 12/23/17 08:30 Urine Catheter - Butler Urine Culture - Preliminary Culture exhibits no growth. 12/20/17 05:00 Sputum, Induced/Lukens Gram Stain - Final 12/20/17 05:00 Sputum, Induced/Lukens Respiratory Culture - Final Yeast, not Audra albicans Laboratory Results 12/24/17 11:31: POC Glucose 230 H 12/24/17 17:16: POC Glucose 244 H 12/24/17 23:40: POC Glucose 193 H 12/25/17 04:55: WBC 6.4, RBC 4.40 L, Hgb 12.3 L, Hct 41.5, MCV 94.3 H, MCH 28.0, MCHC 29.6 L, RDW 14.7 H, RDW Differential 49.1 H, Plt Count 179, MPV 11.7, Immature Gran % (Auto) 0.500, Neut % (Auto) 81.3 H, Lymph % (Auto) 13.9 L, [place] % (Auto) 4.1, Eos % (Auto) 0.2, Baso % (Auto) 0.0, Absolute Neuts (auto) 5.2, Absolute Lymphs (auto) 0.88, Total Counted Not Reportable 12/25/17 04:55: Sodium 152 H, Potassium 4.8, Chloride 110 H, Carbon Dioxide 34.0 H, Anion Gap 8, BUN 44 H, Creatinine 0.90, Estim Creat Clear Calc 85.50, Est GFR (MDRD) Af Amer 111, Est GFR (MDRD) Non-Af 92, BUN/Creatinine Ratio 49.1 H, Glucose 202 H, Calcium 9.1 12/25/17 05:40: POC Glucose 192 H Current Medications Acetaminophen (Tylenol Liquid) 650 mg GT Q6H PRN PRN PRN Reason: FEVER Last Admin: 12/24/17 00:16 Dose: 650 mg Albuterol Sulfate (Ventolin Aerosols) 2.5 mg INHALATION Q6HWA.RT [facility] Last Admin: 12/25/17 06:45 Dose: 2.5 mg Aspirin (Aspirin, Baby) 81 mg GT DAILY [facility] Last Admin: 12/24/17 09:56 Dose: 81 mg Atorvastatin Calcium (Lipitor) 40 mg GT QHS [facility] Last Admin: 12/24/17 21:44 Dose: 40 mg Chlorhexidine Gluconate () 15 ml PO BID [facility] Last Admin: 12/24/17 21:41 Dose: 15 ml Clopidogrel Bisulfate (Plavix) 75 mg GT DAILY [facility] Last Admin: 12/24/17 09:56 Dose: 75 mg Dextrose (D50w Syringe) 0 gm IV X1 PRN; Protocol PRN Reason: Hypoglycemia Famotidine (Pepcid) 20 mg GT BID [facility] Last Admin: 12/24/17 21:45 Dose: 20 mg Furosemide (Lasix) 20 mg IV BID@1000,1800 [facility] Last Admin: 12/24/17 17:17 Dose: 20 mg Glucagon () 1 mg IM .X1 PRN PRN Reason: Hypoglycemia Heparin Sodium (Porcine) (Heparin Na) 0 unit IV UD PRN; Protocol Sodium Chloride () 250 mls @ 15 mls/hr IV .[id number] PRN PRN Reason: SALINE FLUSH Sodium Chloride () 250 mls @ 15 mls/hr IV .[id number] PRN PRN Reason: SALINE FLUSH Last Admin: 12/16/17 21:29 Dose: 15 mls/hr Sodium Chloride () 1,000 mls @ 0 mls/hr IV .Q0M [facility] Levofloxacin (Levaquin Iv) 750 mg in 150 mls @ 100 mls/hr IV Q24 [facility] Stop: 12/28/17 11:29 Last Admin: 12/24/17 09:55 Dose: 100 mls/hr Metronidazole (Flagyl) 500 mg in 100 mls @ 100 mls/hr IV Q8 [facility] Stop: 12/28/17 14:59 Last Admin: 12/25/17 05:35 Dose: 100 mls/hr Propofol (Diprivan) 1,000 mg in 100 mls @ 9.852 mls/hr CONT INF .[id number] [facility] Last Admin: 12/25/17 01:51 Dose: 9.852 mls/hr Heparin Sodium/Dextrose () 25,000 units in 250 mls @ 18 mls/hr IV .[id number] [facility]; Protocol Last Admin: 12/24/17 04:30 Dose: 18 mls/hr Fentanyl () 100 mls @ 7.5 mls/hr IV .Q40H [facility] Last Admin: 12/25/17 04:00 Dose: 7.5 mls/hr Enteral Nutritional Formula (Glucerna 1.5) 1,000 mls @ 55 mls/hr GT .[id number] [facility] Last Admin: 12/25/17 01:52 Dose: Not Given Insulin Glargine (Lantus (Bkc)) 35 units SC BID [facility] Last Admin: 12/24/17 21:44 Dose: 35 u Insulin Human Lispro (Humalog Kwikpen (Bkc)) 0 unit SC Q6 [facility]; Protocol Last Admin: 12/25/17 05:42 Dose: 3 u Magnesium Hydroxide (Milk Of Magnesia) 30 ml PO DAILY PRN PRN PRN Reason: Constipation Methylprednisolone (Solu-Medrol) 40 mg IV Q12 [facility] Last Admin: 12/24/17 21:46 Dose: 40 mg Polyethylene Glycol (Miralax) 17 gm GT DAILY PRN PRN PRN Reason: Constipation Potassium Bicarb/Potassium Chloride (Potassium Chl 25 Meq Eff (For Liquid)) 25 meq GT BID [facility] Last Admin: 12/24/17 21:45 Dose: 25 meq Sodium Chloride () 5 - 30 ml IV UD PRN PRN Reason: SALINE FLUSH Last Admin: 12/25/17 04:49 Dose: 20 ml Medical Necessity - Tobacco Use Smoking Status: Current every day smoker Assessment/Plan All Active Problems (Last Reviewed 12/24/17 @ 09:53 by Robert Paredes MD) Aspiration pneumonia due to food (regurgitated) (Acute) Heart failure with preserved ejection fraction (Acute) GALILEA (acute kidney injury) (Acute) Klebsiella pneumonia (Acute) Acute respiratory failure with hypoxia and hypercapnia (Acute) Pneumococcal pneumonia (Acute) Metabolic encephalopathy (Resolved) Chest pain (Resolved) Respiratory failure, acute (Resolved) 1. Acute hypoxic and hypercapnic respiratory failure. stable, but not progressing. self-extubation on 12/22 new RUL infiltrate multifactorial: PNA, CHF, aspiration pneumonitis, EMILIA, obesity hypoventilation wean oxygen as tolerated CCM mgmt appreciated BDs and steroid trach on 12/26 PEG done 12/25 on empiric heparin for possible VTE 2. Pneumococcal and Klebsiella Pneumonia: Levaquin through pulm toilet 3. HFpEF compensated EF 60% from echo 12/12 lasix stopped due to GALILEA ACEi stopped due to GALILEA 4. Fevers ongoing low grade, up to 37.7 at 2000 on 12/21 had been persistent since admission BCx on 5th negative TTE on the negative UA, UCx negative other than sputum cultures, infectious work up has been negative schedule acetaminophen UA negative x 3 BCx negative on the and 5. GALILEA resolved likely due to overdiuresis monitor lasix and lisinopril stopped 6. DM2 uncontrolled, but slightly better LANTUS 35 BID consider insulin gtt to keep MBS < 200 in a critically ill patient 7. DVT proph: heparin 8. Disposition anticipate LTAC at some point after tracheostomy Code Visit Inpatient E&M: 58481 Subs Hosp L2
--- NOTE | 2017-12-25 08:34 | PN_ITS ---
Patient Problems: Active and Suspected Problems (Last Reviewed 12/24/17 @ 09:53 by Robert Paredes MD) Aspiration pneumonia due to food (regurgitated) (Acute) Heart failure with preserved ejection fraction (Acute) GALILEA (acute kidney injury) (Acute) Klebsiella pneumonia (Acute) Acute respiratory failure with hypoxia and hypercapnia (Acute) Pneumococcal pneumonia (Acute) Subjective: status post PEG today. Vitals/I&O's: Vital Signs Temp Pulse Resp BP Pulse Ox 37.3 C H 71 16 87/62 L 92 12/25/17 04:00 12/25/17 07:49 12/25/17 07:00 12/25/17 07:00 12/25/17 07:00 Oxygen Flow Rate (L/min) 50 Oxygen Delivery Method Mechanical Ventilator Weight: 141.7 kg Body Mass Index (BMI) 55.5 Finger Stick Blood Glucose 193 Intake and Output for Last 24 Hours 12/23/17 12/24/17 12/25/17 23:59 23:59 23:59 Intake Total 5058.0 / 5058.0 3559.5 / 3559.5 1498.2 / 1498.2 Output Total 1875 / 1875 2600 / 2600 1220 / 1220 Balance 3183.0 / 3183.0 959.5 / 959.5 278.2 / 278.2 General: No apparent distress, - - somnolent. HEENT: Atraumatic, Normocephalic Oral: - - ETT and OG in place. Neck: No Nodes, Thyroid Normal Size and Texture Lungs: Clear to auscultation, Diminished Cardiovascular: Regular rate, Regular Rhythm, Normal S1, Normal S2, No murmurs Abdomen: Bowel Sounds Present, Soft, Non Tender, Non-Distended, No Hepato- splenomegaly Extremities: No edema, No Calf Tenderness Skin: No rashes, No breakdown, - - venous stasis dermatitis. Musculoskeletal: No Tenderness to Palpation of Joints or Extremities, No Muscle Wasting Psych/Mental Status: Normal Affect, Appropriate Microbiology Past 72 Hours 12/23/17 08:30 Urine Catheter - Butler Urine Culture - Preliminary Culture exhibits no growth. 12/20/17 05:00 Sputum, Induced/Lukens Gram Stain - Final 12/20/17 05:00 Sputum, Induced/Lukens Respiratory Culture - Final Yeast, not Audra albicans Laboratory Results 12/24/17 11:31: POC Glucose 230 H 12/24/17 17:16: POC Glucose 244 H 12/24/17 23:40: POC Glucose 193 H 12/25/17 04:55: WBC 6.4, RBC 4.40 L, Hgb 12.3 L, Hct 41.5, MCV 94.3 H, MCH 28.0, MCHC 29.6 L, RDW 14.7 H, RDW Differential 49.1 H, Plt Count 179, MPV 11.7, Immature Gran % (Auto) 0.500, Neut % (Auto) 81.3 H, Lymph % (Auto) 13.9 L, [place] % (Auto) 4.1, Eos % (Auto) 0.2, Baso % (Auto) 0.0, Absolute Neuts (auto) 5.2, Absolute Lymphs (auto) 0.88, Total Counted Not Reportable 12/25/17 04:55: Sodium 152 H, Potassium 4.8, Chloride 110 H, Carbon Dioxide 34.0 H, Anion Gap 8, BUN 44 H, Creatinine 0.90, Estim Creat Clear Calc 85.50, Est GFR (MDRD) Af Amer 111, Est GFR (MDRD) Non-Af 92, BUN/Creatinine Ratio 49.1 H, Glucose 202 H, Calcium 9.1 12/25/17 05:40: POC Glucose 192 H Current Medications Acetaminophen (Tylenol Liquid) 650 mg GT Q6H PRN PRN PRN Reason: FEVER Last Admin: 12/24/17 00:16 Dose: 650 mg Albuterol Sulfate (Ventolin Aerosols) 2.5 mg INHALATION Q6HWA.RT [facility] Last Admin: 12/25/17 06:45 Dose: 2.5 mg Aspirin (Aspirin, Baby) 81 mg GT DAILY [facility] Last Admin: 12/24/17 09:56 Dose: 81 mg Atorvastatin Calcium (Lipitor) 40 mg GT QHS [facility] Last Admin: 12/24/17 21:44 Dose: 40 mg Chlorhexidine Gluconate () 15 ml PO BID [facility] Last Admin: 12/24/17 21:41 Dose: 15 ml Clopidogrel Bisulfate (Plavix) 75 mg GT DAILY [facility] Last Admin: 12/24/17 09:56 Dose: 75 mg Dextrose (D50w Syringe) 0 gm IV X1 PRN; Protocol PRN Reason: Hypoglycemia Famotidine (Pepcid) 20 mg GT BID [facility] Last Admin: 12/24/17 21:45 Dose: 20 mg Furosemide (Lasix) 20 mg IV BID@1000,1800 [facility] Last Admin: 12/24/17 17:17 Dose: 20 mg Glucagon () 1 mg IM .X1 PRN PRN Reason: Hypoglycemia Heparin Sodium (Porcine) (Heparin Na) 0 unit IV UD PRN; Protocol Sodium Chloride () 250 mls @ 15 mls/hr IV .[id number] PRN PRN Reason: SALINE FLUSH Sodium Chloride () 250 mls @ 15 mls/hr IV .[id number] PRN PRN Reason: SALINE FLUSH Last Admin: 12/16/17 21:29 Dose: 15 mls/hr Sodium Chloride () 1,000 mls @ 0 mls/hr IV .Q0M [facility] Levofloxacin (Levaquin Iv) 750 mg in 150 mls @ 100 mls/hr IV Q24 [facility] Stop: 12/28/17 11:29 Last Admin: 12/24/17 09:55 Dose: 100 mls/hr Metronidazole (Flagyl) 500 mg in 100 mls @ 100 mls/hr IV Q8 [facility] Stop: 12/28/17 14:59 Last Admin: 12/25/17 05:35 Dose: 100 mls/hr Propofol (Diprivan) 1,000 mg in 100 mls @ 9.852 mls/hr CONT INF .[id number] [facility] Last Admin: 12/25/17 01:51 Dose: 9.852 mls/hr Heparin Sodium/Dextrose () 25,000 units in 250 mls @ 18 mls/hr IV .[id number] [facility]; Protocol Last Admin: 12/24/17 04:30 Dose: 18 mls/hr Fentanyl () 100 mls @ 7.5 mls/hr IV .Q40H [facility] Last Admin: 12/25/17 04:00 Dose: 7.5 mls/hr Enteral Nutritional Formula (Glucerna 1.5) 1,000 mls @ 55 mls/hr GT .[id number] [facility] Last Admin: 12/25/17 01:52 Dose: Not Given Insulin Glargine (Lantus (Bkc)) 35 units SC BID [facility] Last Admin: 12/24/17 21:44 Dose: 35 u Insulin Human Lispro (Humalog Kwikpen (Bkc)) 0 unit SC Q6 [facility]; Protocol Last Admin: 12/25/17 05:42 Dose: 3 u Magnesium Hydroxide (Milk Of Magnesia) 30 ml PO DAILY PRN PRN PRN Reason: Constipation Methylprednisolone (Solu-Medrol) 40 mg IV Q12 [facility] Last Admin: 12/24/17 21:46 Dose: 40 mg Polyethylene Glycol (Miralax) 17 gm GT DAILY PRN PRN PRN Reason: Constipation Potassium Bicarb/Potassium Chloride (Potassium Chl 25 Meq Eff (For Liquid)) 25 meq GT BID [facility] Last Admin: 12/24/17 21:45 Dose: 25 meq Sodium Chloride () 5 - 30 ml IV UD PRN PRN Reason: SALINE FLUSH Last Admin: 12/25/17 04:49 Dose: 20 ml Medical Necessity - Tobacco Use Smoking Status: Current every day smoker Assessment/Plan All Active Problems (Last Reviewed 12/24/17 @ 09:53 by Robert Paredes MD) Aspiration pneumonia due to food (regurgitated) (Acute) Heart failure with preserved ejection fraction (Acute) GALILEA (acute kidney injury) (Acute) Klebsiella pneumonia (Acute) Acute respiratory failure with hypoxia and hypercapnia (Acute) Pneumococcal pneumonia (Acute) Metabolic encephalopathy (Resolved) Chest pain (Resolved) Respiratory failure, acute (Resolved) 1. Acute hypoxic and hypercapnic respiratory failure. * stable, but not progressing. * self-extubation on 12/22 * new RUL infiltrate * multifactorial: PNA, CHF, aspiration pneumonitis, EMILIA, obesity hypoventilation * wean oxygen as tolerated * [facility] mgmt appreciated * BDs and steroid * trach on 12/26 * PEG done 12/25 * on empiric heparin for possible VTE 2. Pneumococcal and Klebsiella Pneumonia: * Levaquin through * pulm toilet 3. HFpEF * compensated * EF 60% from echo 12/12 * lasix stopped due to GALILEA * ACEi stopped due to GALILEA 4. Fevers * ongoing * low grade, up to 37.7 at 2000 on 12/21 * had been persistent since admission * BCx on 5th negative * TTE on the negative * UA, UCx negative * other than sputum cultures, infectious work up has been negative * schedule acetaminophen * UA negative x 3 * BCx negative on the and 5. GALILEA * resolved * likely due to overdiuresis * monitor * lasix and lisinopril stopped 6. DM2 * uncontrolled, but slightly better * LANTUS 35 BID * consider insulin gtt to keep MBS < 200 in a critically ill patient 7. DVT proph: heparin 8. Disposition * anticipate LTAC at some point after tracheostomy Code Visit Inpatient E&M: 61976 Subs Hosp L2
[2017-12-25] MEDS: levoFLOXacin IV 750 MG/150 ML BAG 100 MG IV (11:01)
[2017-12-25] MEDS: Chlorhexidine 15 ML PO ×2 (11:02→21:20)
[2017-12-25] MEDS: Furosemide 20 MG/2 ML VIAL IV ×2 (11:02→18:06)
[2017-12-25 11:50] LABS: Bedside Glucose 137 mg/dL (70-110)
[2017-12-25] MEDS: Famotidine 20 MG Tablet GT ×2 (14:01→21:17)
[2017-12-25] MEDS: Clopidogrel Bisulfate 75 MG Tablet GT (14:01)
[2017-12-25] MEDS: Aspirin 81 MG TAB.CHEW GT (14:01)
[2017-12-25 18:20] LABS: Bedside Glucose 182 mg/dL (70-110)
[2017-12-25] MEDS: Atorvastatin Calcium 40 MG Tablet GT (21:19)
[2017-12-25 21:41] LABS: Bedside Glucose 158 mg/dL (70-110)
[2017-12-26] VITALS (41 sets, daily range): BP systolic 79–126; BP diastolic 42–76; PULSE 67–94; RESP 8–25; TEMP 36.2–37.3; O2SAT 85–98
[2017-12-26] MEDS: Insulin Lispro 100 UNIT/ML INSULN.PEN SC ×2 (00:09→05:28)
[2017-12-26 00:20] LABS: Bedside Glucose 161 mg/dL (70-110)
[2017-12-26] MEDS: 0.9% NaCl Peripheral Flush Adult/Peds IV ×3 (03:41→20:31)
[2017-12-26] MEDS: fentaNYL drip 100 ML 7.5 MCG IV ×2 (03:41→17:58)
[2017-12-26] MEDS: Propofol 10MG/Ml 1,000 MG/100 ML Bottle 9.852 MG CONT INF ×2 (03:48→12:15)
[2017-12-26] MEDS: CHLORHEXIDINE GLUC 2% CLOTH 1 EACH TOWELETTE TOPICAL (03:59)
[2017-12-26 04:20] LABS: Absolute Lymphocyte Count 0.98 X10^3/ul (0.83-4.51); Absolute Neutrophil Count 6.7 X10^3/uL (2.0-7.7); Hematocrit 41.2 % (40-54); Hemoglobin 11.9 g/dl (13.0-16.5); Lymphocyte # 0.98 X10^3/ul (4.0); Lymphocyte % 12.3 % (19-41); Mean Corp Hgb Conc 28.9 g/gl (32-36); Mean Corpuscular Hgb 27.2 pg (27.0-32.0); Mean Corpuscular Volume 94.3 fL (80-94); Mean Platelet Vol. 11.2 fl (6.2-12.0); Monocyte# 0.31 X10^3/uL; Monocyte% 3.9 % (0-10); Neutrophil # 6.68 X10^3/uL (2.7-7.7); Neutrophil % 83.5 % (47-70); Platelet Count 145 K/mm3 (150-450); RBC Distribution Width CV 14.9 % (11.6-14.6); Red Blood Count 4.37 M/mm3 (4.6-6.2)
[2017-12-26 04:28] LABS: Anion Gap 8 (5-15); BUN 42 mg/dL (7-18); BUN/Creat Ratio 50.7 RATIO (10-20); Calcium,Total 8.9 mg/dL (8.5-10.1); Chloride 109 mmol/L (98-107); Creatinine, Serum 0.83 mg/dL (0.70-1.30); EST Glomerular Filtration Rate 101 mL/min (>60); Est Glom Filt Rate - Afr Amer 122 mL/min (>60); Estimated Creatinine Clearance 92.71 ml/min; Glucose 190 mg/dL (74-106); Potassium 4.7 mmol/L (3.5-5.1); Sodium Level 151 mmol/L (136-145)
[2017-12-26 04:31] LABS: POSITIVE COUNT NO; POSITIVE DIFFERENTIAL NO; POSITIVE MORPHOLOGY NO
[2017-12-26 04:59] LABS: International Normalized Ratio 1.2; Prothrombin Time (Protime)PT. 14.8 SECONDS (11.7-14.9)
[2017-12-26 05:40] LABS: Bedside Glucose 182 mg/dL (70-110)
[2017-12-26] MEDS: Albuterol 2.5 MG/3 ML VIAL.NEB. INHALATION ×3 (06:44→18:33)
--- NOTE | 2017-12-26 06:47 | PCM.PN.INT ---
Subjective: The patient was seen and examined at the bedside this morning. Events from the last 24 hours have been reviewed. The patient is currently afebrile, hemodynamically stable and maintaining appropriate oxygen saturations with an FiO2 requirement of 50% currently. The patient underwent successful PEG tube placement yesterday. He is currently scheduled to undergo tracheostomy placement today. Issues with periodic oxygen desaturations were noted by the nursing staff this morning. The patient was overall net +900 mL's yesterday. He is now overall net -10 L for the admission. Objective: The patient's most recent lab work, culture data and imaging studies have all been personally reviewed. Respiratory viral panel was negative. Surface echocardiogram revealed normal LV size and function with an ejection fraction of 60%. Sputum culture dated December 13 revealed evidence of Streptococcus pneumoniae. Repeat sputum culture dated December 16 was positive for Klebsiella. General: Cooperative, - - Intubated, sedated and mechanically ventilated. HEENT: Atraumatic, PERRLA, Normocephalic Oral: No Gingival or Mucosal Lesions/ Ulcerations Neck: Supple, No Nodes, Trachea Midline Lungs: No wheeze, No rales, Diminished, Rhonchi Cardiovascular: Regular rate, Regular Rhythm, Normal S1, Normal S2, No murmurs Abdomen: Bowel Sounds Present, Soft, Non Tender, Obese, - - +PEG Extremities: No clubbing, No cyanosis, Edema Skin: - - No significant change from previous. Musculoskeletal: No Muscle Wasting Lymphatic: No Cervical, Supraclavicular, or Inguinal Adenopathy Neurological: - - No focal neurological deficits. Vital Signs Temp Pulse Resp BP Pulse Ox 36.9 C 77 8 L 89/56 L 95 12/26/17 04:00 12/26/17 06:00 12/26/17 06:00 12/26/17 06:00 12/26/17 06:00 Oxygen Flow Rate (L/min) 50 Oxygen Delivery Method Mechanical Ventilator Weight: 308 lb 3.3 oz Body Mass Index (BMI) 55.5 Finger Stick Blood Glucose 193 Intake and Output for Last 24 Hours 12/24/17 12/25/17 12/26/17 23:59 23:59 23:59 Intake Total 3559.5 / 3559.5 3232.2 / 3232.2 803.7 / 803.7 Output Total 2600 / 2600 2320 / 2320 1250 / 1250 Balance 959.5 / 959.5 912.2 / 912.2 -446.3 / -446.3 Labs (Last 48 Hours) 12/24/17 12/24/17 12/24/17 05:55 11:31 17:16 WBC RBC Hgb Hct MCV MCH MCHC RDW RDW Differential Plt Count MPV Immature Gran % (Auto) Neut % (Auto) Lymph % (Auto) [place] % (Auto) Eos % (Auto) Baso % (Auto) Absolute Neuts (auto) Absolute Lymphs (auto) Total Counted PT INR Sodium Potassium Chloride Carbon Dioxide Anion Gap BUN Creatinine Estim Creat Clear Calc Est GFR (MDRD) Af Amer Est GFR (MDRD) Non-Af BUN/Creatinine Ratio Glucose Calcium POC Glucose 269 H 230 H 244 H 12/24/17 12/25/17 12/25/17 23:40 04:55 04:55 WBC 6.4 RBC 4.40 L Hgb 12.3 L Hct 41.5 MCV 94.3 H MCH 28.0 MCHC 29.6 L RDW 14.7 H RDW Differential 49.1 H Plt Count 179 MPV 11.7 Immature Gran % (Auto) 0.500 Neut % (Auto) 81.3 H Lymph % (Auto) 13.9 L [place] % (Auto) 4.1 Eos % (Auto) 0.2 Baso % (Auto) 0.0 Absolute Neuts (auto) 5.2 Absolute Lymphs (auto) 0.88 Total Counted Not Reportable PT INR Sodium 152 H Potassium 4.8 Chloride 110 H Carbon Dioxide 34.0 H Anion Gap 8 BUN 44 H Creatinine 0.90 Estim Creat Clear Calc 85.50 Est GFR (MDRD) Af Amer 111 Est GFR (MDRD) Non-Af 92 BUN/Creatinine Ratio 49.1 H Glucose 202 H Calcium 9.1 POC Glucose 193 H 12/25/17 12/25/17 12/25/17 05:40 11:48 18:15 WBC RBC Hgb Hct MCV MCH MCHC RDW RDW Differential Plt Count MPV Immature Gran % (Auto) Neut % (Auto) Lymph % (Auto) [place] % (Auto) Eos % (Auto) Baso % (Auto) Absolute Neuts (auto) Absolute Lymphs (auto) Total Counted PT INR Sodium Potassium Chloride Carbon Dioxide Anion Gap BUN Creatinine Estim Creat Clear Calc Est GFR (MDRD) Af Amer Est GFR (MDRD) Non-Af BUN/Creatinine Ratio Glucose Calcium POC Glucose 192 H 137 H 182 H 12/25/17 12/26/17 12/26/17 21:16 00:08 04:00 WBC 8.0 RBC 4.37 L Hgb 11.9 L Hct 41.2 MCV 94.3 H MCH 27.2 MCHC 28.9 L RDW 14.9 H RDW Differential 51.0 H Plt Count 145 L MPV 11.2 Immature Gran % (Auto) 0.300 Neut % (Auto) 83.5 H Lymph % (Auto) 12.3 L [place] % (Auto) 3.9 Eos % (Auto) 0.0 Baso % (Auto) 0.0 Absolute Neuts (auto) 6.7 Absolute Lymphs (auto) 0.98 Total Counted Not Reportable PT INR Sodium Potassium Chloride Carbon Dioxide Anion Gap BUN Creatinine Estim Creat Clear Calc Est GFR (MDRD) Af Amer Est GFR (MDRD) Non-Af BUN/Creatinine Ratio Glucose Calcium POC Glucose 158 H 161 H 12/26/17 12/26/17 12/26/17 04:00 04:00 05:27 WBC RBC Hgb Hct MCV MCH MCHC RDW RDW Differential Plt Count MPV Immature Gran % (Auto) Neut % (Auto) Lymph % (Auto) [place] % (Auto) Eos % (Auto) Baso % (Auto) Absolute Neuts (auto) Absolute Lymphs (auto) Total Counted PT 14.8 INR 1.2 Sodium 151 H Potassium 4.7 Chloride 109 H Carbon Dioxide 34.0 H Anion Gap 8 BUN 42 H Creatinine 0.83 Estim Creat Clear Calc 92.71 Est GFR (MDRD) Af Amer 122 Est GFR (MDRD) Non-Af 101 BUN/Creatinine Ratio 50.7 H Glucose 190 H Calcium 8.9 POC Glucose 182 H Microbiology 12/23/17 08:50 Blood Culture (Wb) - Right Wrist Blood Culture - Preliminary No growth in 48 hours. 12/23/17 08:40 Blood Culture (Wb) - Line Draw Blood Culture - Preliminary No growth in 48 hours. 12/23/17 08:30 Urine Catheter - Butler Urine Culture - Preliminary Culture exhibits no growth. Clinical Impression(s) from Imaging Studies Brain CT 12/12/17 07:34 IMPRESSION: No CT evidence of acute intracranial hemorrhage. Electronically Signed: Katya Wright MD at 8:54 EST , Service support , Chest X-Ray 12/12/17 07:40 IMPRESSION: Cardiomegaly and mild pulmonary congestion. Electronically Signed: Katya Wright MD at 8:02 EST , Service support , Chest X-Ray 12/15/17 06:34 IMPRESSION: All the support tubes are in good position. Residual increased markings in both lungs as described although there has been improvement as compared to prior study. Electronically Signed: Akhil Izquierdo MD at 11:07 EST Tel [phone], Service support , Chest X-Ray 12/16/17 12:08 IMPRESSION: Stable examination. Electronically Signed: Akhil Izquierdo MD at 12:39 EST Tel [phone], Service support , Chest X-Ray 12/19/17 07:17 IMPRESSION: Residual increased markings at the left lung base suggestive of atelectasis and/or infiltrate. The remainder of the examination is unremarkable. Electronically Signed: Akhil Izquierdo MD at 8:45 EST Tel [phone], Service support , Chest X-Ray 12/20/17 06:05 IMPRESSION: Stable position of the endotracheal tube and enterogastric tube. Progressive left lower lobe atelectasis and/or infiltrate. Electronically Signed: Akhil Izquierdo MD at 9:15 EST Tel [phone], Service support , Chest X-Ray 12/21/17 14:25 IMPRESSION: 1. Endotracheal tube tip is 5.5 cm above the byron. 2. Suboptimal ventilatory effort with stable platelike atelectasis at the left base and mild atelectasis on the right, as noted. Electronically Signed: Brayan Pretty MD at 15:36 EST , Service support , Chest X-Ray 12/21/17 15:00 IMPRESSION: Limited examination. The tip of the orogastric tube appears to be in the distal portion of the esophagus. Electronically Signed: Akhil Izquierdo MD at 15:49 EST Tel [phone], Service support , Chest X-Ray 12/22/17 06:00 IMPRESSION: Increased markings at the lung bases more prominent at the left lung base with blunting of left costophrenic angle. Mild increased markings in the right upper lobe. Follow-up is recommended. The tip of the endotracheal tube is at 5 cm proximal to the byron. Electronically Signed: Akhil Izquierdo MD at 9:46 EST Tel [phone], Service support , Chest X-Ray 12/22/17 11:01 IMPRESSION: 1. Nasogastric tube passes beneath the diaphragm, its tip outside the [id number]. 2. Endotracheal tube unchanged. 3. Improved atelectasis in the right base. Atelectasis on the left is unchanged. 4. Borderline cardiac enlargement. No CHF. Electronically Signed: Brayan Pretty MD at 12:14 EST , Service support , Chest X-Ray 12/22/17 18:29 IMPRESSION: Endotracheal tube ends 4 cm above the byron. Enteric tube is well below the gastroesophageal junction. Stable lung findings with 1 broad platelike area of atelectasis or infiltrate across the left lung base. Electronically Signed: Janessa Combs MD at 22:21 EST , Service support , KUB X-Ray 12/22/17 19:00 IMPRESSION: Orogastric tube placement with tip in gastric body Electronically Signed: Fielmon Orona MD at 23:43 EST , Service support , Chest X-Ray 12/23/17 04:27 IMPRESSION: 1. Bilateral basilar airspace consolidation and atelectasis. 2. Right upper lobe subsegmental atelectasis. Electronically Signed: Katya Wright MD at 8:46 EST , Service support , Medical Necessity - Tobacco Use Smoking Status: Current every day smoker Assessment/Plan All Active Problems (Last Updated 12/25/17 @ 08:22 by Juan Manuel Subramanian DO) Aspiration pneumonia due to food (regurgitated) (Acute) Heart failure with preserved ejection fraction (Acute) GALILEA (acute kidney injury) (Acute) Klebsiella pneumonia (Acute) Acute respiratory failure with hypoxia and hypercapnia (Acute) Pneumococcal pneumonia (Acute) Metabolic encephalopathy (Resolved) Chest pain (Resolved) Respiratory failure, acute (Resolved) RECOMMENDATIONS: 1. Hold tube feeds for tracheostomy placement today. 2. Continue steroids and wean as possible. 3. Wean FiO2 and PEEP as tolerated. 4. Continue antibiotics for an additional 2 days. 5. Continue bronchodilators as ordered. 6. Continue current sedation regimen with a goal to maintain a RASS of -1 to 1. 7. Continue empiric heparin drip and Protonix for GI prophylaxis. 8. Hold diuretics. IMPRESSIONS: 1. Acute on chronic combined respiratory failure Likely secondary to decompensated heart failure in the setting of medical noncompliance, with superimposed bronchospastic airway disease and continued tobacco dependence likely contributing. The patient's hospital course to date has been complicated by 2 independent self extubations by the patient leading to aspiration of gastric contents. He remains on antibiotics accordingly. The patient underwent PEG tube placement yesterday and is currently scheduled to undergo tracheostomy placement today. Continue to wean FiO2 and PEEP as tolerated. Would plan to keep the patient's oxygen saturations 88-92%, to prevent paradoxical CO2 retention. Continue current sedation regimen as ordered. 2. Metabolic encephalopathy Improved. Likely secondary to acute on chronic CO2 retention. Anticipate improvement with correction of the patient's underlying metabolic derangements. Minimize sedation as tolerated. 3. Decompensated heart failure/history of ischemic cardiomyopathy The patient's weight is significantly elevated when compared to that documented from November. The patient is currently euvolemic with a stable Lasix regimen. However, his sodium level is up. Diuretics may need to be held and free water flushes increased. 4. Diabetes mellitus Continue Accu-Cheks and sliding scale insulin coverage. Tube feeds are currently on hold for pending tracheostomy placement today. 5. Obstructive sleep apnea The patient has a history of outpatient noncompliance with the use of nocturnal Pap therapy. He only utilizes supplemental oxygen on a nightly basis. 6. Ongoing tobacco dependence/super morbid obesity/history of medical noncompliance/hypertension Complicates care, management, recovery and prognosis. Nicotine replacement therapy can be utilized while admitted to the hospital. TIME: 38 minutes of critical care time, independent of procedures, was spent addressing the patient's acute on chronic combined respiratory failure, metabolic encephalopathy, decompensated heart failure, obstructive sleep apnea, review of all data and collaboration with the care team. ([id number]) Code Visit 9xxxx: [id number] Critical care first hour
--- NOTE | 2017-12-26 06:54 | PN_ITS ---
Subjective: The patient was seen and examined at the bedside this morning. Events from the last 24 hours have been reviewed. The patient is currently afebrile, hemodynamically stable and maintaining appropriate oxygen saturations with an FiO2 requirement of 50% currently. The patient underwent successful PEG tube placement yesterday. He is currently scheduled to undergo tracheostomy placement today. Issues with periodic oxygen desaturations were noted by the nursing staff this morning. The patient was overall net +900 mL's yesterday. He is now overall net -10 L for the admission. Objective: The patient's most recent lab work, culture data and imaging studies have all been personally reviewed. Respiratory viral panel was negative. Surface echocardiogram revealed normal LV size and function with an ejection fraction of 60%. Sputum culture dated December 13 revealed evidence of Streptococcus pneumoniae. Repeat sputum culture dated December 16 was positive for Klebsiella. General: Cooperative, - - Intubated, sedated and mechanically ventilated. HEENT: Atraumatic, PERRLA, Normocephalic Oral: No Gingival or Mucosal Lesions/ Ulcerations Neck: Supple, No Nodes, Trachea Midline Lungs: No wheeze, No rales, Diminished, Rhonchi Cardiovascular: Regular rate, Regular Rhythm, Normal S1, Normal S2, No murmurs Abdomen: Bowel Sounds Present, Soft, Non Tender, Obese, - - +PEG Extremities: No clubbing, No cyanosis, Edema Skin: - - No significant change from previous. Musculoskeletal: No Muscle Wasting Lymphatic: No Cervical, Supraclavicular, or Inguinal Adenopathy Neurological: - - No focal neurological deficits. Vital Signs Temp Pulse Resp BP Pulse Ox 36.9 C 77 8 L 89/56 L 95 12/26/17 04:00 12/26/17 06:00 12/26/17 06:00 12/26/17 06:00 12/26/17 06:00 Oxygen Flow Rate (L/min) 50 Oxygen Delivery Method Mechanical Ventilator Weight: 308 lb 3.3 oz Body Mass Index (BMI) 55.5 Finger Stick Blood Glucose 193 Intake and Output for Last 24 Hours 12/24/17 12/25/17 12/26/17 23:59 23:59 23:59 Intake Total 3559.5 / 3559.5 3232.2 / 3232.2 803.7 / 803.7 Output Total 2600 / 2600 2320 / 2320 1250 / 1250 Balance 959.5 / 959.5 912.2 / 912.2 -446.3 / -446.3 Labs (Last 48 Hours) 12/24/17 12/24/17 12/24/17 05:55 11:31 17:16 WBC RBC Hgb Hct MCV MCH MCHC RDW RDW Differential Plt Count MPV Immature Gran % (Auto) Neut % (Auto) Lymph % (Auto) [place] % (Auto) Eos % (Auto) Baso % (Auto) Absolute Neuts (auto) Absolute Lymphs (auto) Total Counted PT INR Sodium Potassium Chloride Carbon Dioxide Anion Gap BUN Creatinine Estim Creat Clear Calc Est GFR (MDRD) Af Amer Est GFR (MDRD) Non-Af BUN/Creatinine Ratio Glucose Calcium POC Glucose 269 H 230 H 244 H 12/24/17 12/25/17 12/25/17 23:40 04:55 04:55 WBC 6.4 RBC 4.40 L Hgb 12.3 L Hct 41.5 MCV 94.3 H MCH 28.0 MCHC 29.6 L RDW 14.7 H RDW Differential 49.1 H Plt Count 179 MPV 11.7 Immature Gran % (Auto) 0.500 Neut % (Auto) 81.3 H Lymph % (Auto) 13.9 L [place] % (Auto) 4.1 Eos % (Auto) 0.2 Baso % (Auto) 0.0 Absolute Neuts (auto) 5.2 Absolute Lymphs (auto) 0.88 Total Counted Not Reportable PT INR Sodium 152 H Potassium 4.8 Chloride 110 H Carbon Dioxide 34.0 H Anion Gap 8 BUN 44 H Creatinine 0.90 Estim Creat Clear Calc 85.50 Est GFR (MDRD) Af Amer 111 Est GFR (MDRD) Non-Af 92 BUN/Creatinine Ratio 49.1 H Glucose 202 H Calcium 9.1 POC Glucose 193 H 12/25/17 12/25/17 12/25/17 05:40 11:48 18:15 WBC RBC Hgb Hct MCV MCH MCHC RDW RDW Differential Plt Count MPV Immature Gran % (Auto) Neut % (Auto) Lymph % (Auto) [place] % (Auto) Eos % (Auto) Baso % (Auto) Absolute Neuts (auto) Absolute Lymphs (auto) Total Counted PT INR Sodium Potassium Chloride Carbon Dioxide Anion Gap BUN Creatinine Estim Creat Clear Calc Est GFR (MDRD) Af Amer Est GFR (MDRD) Non-Af BUN/Creatinine Ratio Glucose Calcium POC Glucose 192 H 137 H 182 H 12/25/17 12/26/17 12/26/17 21:16 00:08 04:00 WBC 8.0 RBC 4.37 L Hgb 11.9 L Hct 41.2 MCV 94.3 H MCH 27.2 MCHC 28.9 L RDW 14.9 H RDW Differential 51.0 H Plt Count 145 L MPV 11.2 Immature Gran % (Auto) 0.300 Neut % (Auto) 83.5 H Lymph % (Auto) 12.3 L [place] % (Auto) 3.9 Eos % (Auto) 0.0 Baso % (Auto) 0.0 Absolute Neuts (auto) 6.7 Absolute Lymphs (auto) 0.98 Total Counted Not Reportable PT INR Sodium Potassium Chloride Carbon Dioxide Anion Gap BUN Creatinine Estim Creat Clear Calc Est GFR (MDRD) Af Amer Est GFR (MDRD) Non-Af BUN/Creatinine Ratio Glucose Calcium POC Glucose 158 H 161 H 12/26/17 12/26/17 12/26/17 04:00 04:00 05:27 WBC RBC Hgb Hct MCV MCH MCHC RDW RDW Differential Plt Count MPV Immature Gran % (Auto) Neut % (Auto) Lymph % (Auto) [place] % (Auto) Eos % (Auto) Baso % (Auto) Absolute Neuts (auto) Absolute Lymphs (auto) Total Counted PT 14.8 INR 1.2 Sodium 151 H Potassium 4.7 Chloride 109 H Carbon Dioxide 34.0 H Anion Gap 8 BUN 42 H Creatinine 0.83 Estim Creat Clear Calc 92.71 Est GFR (MDRD) Af Amer 122 Est GFR (MDRD) Non-Af 101 BUN/Creatinine Ratio 50.7 H Glucose 190 H Calcium 8.9 POC Glucose 182 H Microbiology 12/23/17 08:50 Blood Culture (Wb) - Right Wrist Blood Culture - Preliminary No growth in 48 hours. 12/23/17 08:40 Blood Culture (Wb) - Line Draw Blood Culture - Preliminary No growth in 48 hours. 12/23/17 08:30 Urine Catheter - Butler Urine Culture - Preliminary Culture exhibits no growth. Clinical Impression(s) from Imaging Studies Brain CT 12/12/17 07:34 IMPRESSION: No CT evidence of acute intracranial hemorrhage. Electronically Signed: Katya Wright MD at 8:54 EST , Service support , Chest X-Ray 12/12/17 07:40 IMPRESSION: Cardiomegaly and mild pulmonary congestion. Electronically Signed: Katya Wright MD at 8:02 EST , Service support , Chest X-Ray 12/15/17 06:34 IMPRESSION: All the support tubes are in good position. Residual increased markings in both lungs as described although there has been improvement as compared to prior study. Electronically Signed: Akhil Izquierdo MD at 11:07 EST Tel [phone], Service support , Chest X-Ray 12/16/17 12:08 IMPRESSION: Stable examination. Electronically Signed: Akhil Izquierdo MD at 12:39 EST Tel [phone], Service support , Chest X-Ray 12/19/17 07:17 IMPRESSION: Residual increased markings at the left lung base suggestive of atelectasis and/or infiltrate. The remainder of the examination is unremarkable. Electronically Signed: Akhil Izquierdo MD at 8:45 EST Tel [phone], Service support , Chest X-Ray 12/20/17 06:05 IMPRESSION: Stable position of the endotracheal tube and enterogastric tube. Progressive left lower lobe atelectasis and/or infiltrate. Electronically Signed: Akhil Izquierdo MD at 9:15 EST Tel [phone], Service support , Chest X-Ray 12/21/17 14:25 IMPRESSION: 1. Endotracheal tube tip is 5.5 cm above the byron. 2. Suboptimal ventilatory effort with stable platelike atelectasis at the left base and mild atelectasis on the right, as noted. Electronically Signed: Brayan Pretty MD at 15:36 EST , Service support , Chest X-Ray 12/21/17 15:00 IMPRESSION: Limited examination. The tip of the orogastric tube appears to be in the distal portion of the esophagus. Electronically Signed: Akhil Izquierdo MD at 15:49 EST Tel [phone], Service support , Chest X-Ray 12/22/17 06:00 IMPRESSION: Increased markings at the lung bases more prominent at the left lung base with blunting of left costophrenic angle. Mild increased markings in the right upper lobe. Follow-up is recommended. The tip of the endotracheal tube is at 5 cm proximal to the byron. Electronically Signed: Akhil Izquierdo MD at 9:46 EST Tel [phone], Service support , Chest X-Ray 12/22/17 11:01 IMPRESSION: 1. Nasogastric tube passes beneath the diaphragm, its tip outside the [id number]. 2. Endotracheal tube unchanged. 3. Improved atelectasis in the right base. Atelectasis on the left is unchanged. 4. Borderline cardiac enlargement. No CHF. Electronically Signed: Brayan Pretty MD at 12:14 EST , Service support , Chest X-Ray 12/22/17 18:29 IMPRESSION: Endotracheal tube ends 4 cm above the byron. Enteric tube is well below the gastroesophageal junction. Stable lung findings with 1 broad platelike area of atelectasis or infiltrate across the left lung base. Electronically Signed: Janessa Combs MD at 22:21 EST , Service support , KUB X-Ray 12/22/17 19:00 IMPRESSION: Orogastric tube placement with tip in gastric body Electronically Signed: Filemon Orona MD at 23:43 EST , Service support , Chest X-Ray 12/23/17 04:27 IMPRESSION: 1. Bilateral basilar airspace consolidation and atelectasis. 2. Right upper lobe subsegmental atelectasis. Electronically Signed: Katya Wright MD at 8:46 EST , Service support , Medical Necessity - Tobacco Use Smoking Status: Current every day smoker Assessment/Plan All Active Problems (Last Updated 12/25/17 @ 08:22 by Juan Manuel Subramanian DO) Aspiration pneumonia due to food (regurgitated) (Acute) Heart failure with preserved ejection fraction (Acute) GALILEA (acute kidney injury) (Acute) Klebsiella pneumonia (Acute) Acute respiratory failure with hypoxia and hypercapnia (Acute) Pneumococcal pneumonia (Acute) Metabolic encephalopathy (Resolved) Chest pain (Resolved) Respiratory failure, acute (Resolved) RECOMMENDATIONS: 1. Hold tube feeds for tracheostomy placement today. 2. Continue steroids and wean as possible. 3. Wean FiO2 and PEEP as tolerated. 4. Continue antibiotics for an additional 2 days. 5. Continue bronchodilators as ordered. 6. Continue current sedation regimen with a goal to maintain a RASS of -1 to 1. 7. Continue empiric heparin drip and Protonix for GI prophylaxis. 8. Hold diuretics. IMPRESSIONS: 1. Acute on chronic combined respiratory failure Likely secondary to decompensated heart failure in the setting of medical noncompliance, with superimposed bronchospastic airway disease and continued tobacco dependence likely contributing. The patient's hospital course to date has been complicated by 2 independent self extubations by the patient leading to aspiration of gastric contents. He remains on antibiotics accordingly. The patient underwent PEG tube placement yesterday and is currently scheduled to undergo tracheostomy placement today. Continue to wean FiO2 and PEEP as tolerated. Would plan to keep the patient's oxygen saturations 88-92%, to prevent paradoxical CO2 retention. Continue current sedation regimen as ordered. 2. Metabolic encephalopathy Improved. Likely secondary to acute on chronic CO2 retention. Anticipate improvement with correction of the patient's underlying metabolic derangements. Minimize sedation as tolerated. 3. Decompensated heart failure/history of ischemic cardiomyopathy The patient's weight is significantly elevated when compared to that documented from November. The patient is currently euvolemic with a stable Lasix regimen. However, his sodium level is up. Diuretics may need to be held and free water flushes increased. 4. Diabetes mellitus Continue Accu-Cheks and sliding scale insulin coverage. Tube feeds are currently on hold for pending tracheostomy placement today. 5. Obstructive sleep apnea The patient has a history of outpatient noncompliance with the use of nocturnal Pap therapy. He only utilizes supplemental oxygen on a nightly basis. 6. Ongoing tobacco dependence/super morbid obesity/history of medical noncompliance/hypertension Complicates care, management, recovery and prognosis. Nicotine replacement therapy can be utilized while admitted to the hospital. TIME: 38 minutes of critical care time, independent of procedures, was spent addressing the patient's acute on chronic combined respiratory failure, metabolic encephalopathy, decompensated heart failure, obstructive sleep apnea, review of all data and collaboration with the care team. ([id number]) Code Visit 9xxxx: [id number] Critical care first hour
--- NOTE | 2017-12-26 07:29 | PN_ITS ---
Patient Problems: Active and Suspected Problems (Last Updated 12/25/17 @ 08:22 by Juan Manuel Subramanian DO) Aspiration pneumonia due to food (regurgitated) (Acute) Subjective: Patient is scheduled for tracheostomy today. Patient PEG tube feed was held yesterday for the procedure today. On FiO2 50% on ventilator. Patient hospital course was complicated by 2 times self extubation. Vitals/I&O's: Vital Signs Temp Pulse Resp BP Pulse Ox 98.5 F 72 19 H 94/60 93 12/26/17 04:00 12/26/17 07:00 12/26/17 07:00 12/26/17 07:00 12/26/17 07:00 Oxygen Flow Rate (L/min) 50 Oxygen Delivery Method Mechanical Ventilator Weight: 308 lb 3.3 oz Body Mass Index (BMI) 55.5 Finger Stick Blood Glucose 193 Intake and Output for Last 24 Hours 12/24/17 12/25/17 12/26/17 23:59 23:59 23:59 Intake Total 3559.5 / 3559.5 3232.2 / 3232.2 803.7 / 803.7 Output Total 2600 / 2600 2320 / 2320 1250 / 1250 Balance 959.5 / 959.5 912.2 / 912.2 -446.3 / -446.3 General: - - Awake and responds to simple command. Intubated HEENT: Atraumatic, PERRLA, EOMI, Normocephalic Oral: - - Intubated. Neck: Supple, No JVD, Negative Carotid Bruits Lungs: No wheeze, No rales, Diminished Cardiovascular: Regular rate, Normal S1, Normal S2, No murmurs Abdomen: Bowel Sounds Present, Soft, Non Tender, Non-Distended, - - PEG tube Extremities: Capillary Refill Less than 3 Seconds, Edema Skin: No rashes, No breakdown Musculoskeletal: No Tenderness to Palpation of Joints or Extremities, Arthritic Changes Neurological: Cranial nerves II-XII grossly intact, Neuro grossly intact, - - Physical deconditioning Psych/Mental Status: Normal Affect, Appropriate Microbiology Past 72 Hours 12/23/17 08:50 Blood Culture (Wb) - Right Wrist Blood Culture - Preliminary No growth in 48 hours. 12/23/17 08:40 Blood Culture (Wb) - Line Draw Blood Culture - Preliminary No growth in 48 hours. 12/23/17 08:30 Urine Catheter - Butler Urine Culture - Preliminary Culture exhibits no growth. 12/20/17 05:00 Sputum, Induced/Lukens Gram Stain - Final 12/20/17 05:00 Sputum, Induced/Lukens Respiratory Culture - Final Yeast, not Audra albicans Laboratory Results 12/25/17 11:48: POC Glucose 137 H 12/25/17 18:15: POC Glucose 182 H 12/25/17 21:16: POC Glucose 158 H 12/26/17 00:08: POC Glucose 161 H 12/26/17 04:00: WBC 8.0, RBC 4.37 L, Hgb 11.9 L, Hct 41.2, MCV 94.3 H, MCH 27.2, MCHC 28.9 L, RDW 14.9 H, RDW Differential 51.0 H, Plt Count 145 L, MPV 11.2, Immature Gran % (Auto) 0.300, Neut % (Auto) 83.5 H, Lymph % (Auto) 12.3 L, [place] % (Auto) 3.9, Eos % (Auto) 0.0, Baso % (Auto) 0.0, Absolute Neuts (auto) 6.7, Absolute Lymphs (auto) 0.98, Total Counted Not Reportable 12/26/17 04:00: PT 14.8, INR 1.2 12/26/17 04:00: Sodium 151 H, Potassium 4.7, Chloride 109 H, Carbon Dioxide 34.0 H, Anion Gap 8, BUN 42 H, Creatinine 0.83, Estim Creat Clear Calc 92.71, Est GFR (MDRD) Af Amer 122, Est GFR (MDRD) Non-Af 101, BUN/Creatinine Ratio 50.7 H, Glucose 190 H, Calcium 8.9 12/26/17 05:27: POC Glucose 182 H Current Medications Acetaminophen (Tylenol Liquid) 650 mg GT Q6H PRN PRN PRN Reason: FEVER Last Admin: 12/24/17 00:16 Dose: 650 mg Albuterol Sulfate (Ventolin Aerosols) 2.5 mg INHALATION Q6HWA.RT JUANY Last Admin: 12/26/17 06:44 Dose: 2.5 mg Aspirin (Aspirin, Baby) 81 mg GT DAILY JUANY Last Admin: 12/25/17 14:01 Dose: 81 mg Atorvastatin Calcium (Lipitor) 40 mg GT QHS [facility] Last Admin: 12/25/17 21:19 Dose: 40 mg Chlorhexidine Gluconate () 15 ml PO BID [facility] Last Admin: 12/25/17 21:20 Dose: 15 ml Chlorhexidine Gluconate () 1 each TOPICAL DAILY [facility] Last Admin: 12/26/17 03:59 Dose: 1 each Clopidogrel Bisulfate (Plavix) 75 mg GT DAILY [facility] Last Admin: 12/25/17 14:01 Dose: 75 mg Dextrose (D50w Syringe) 0 gm IV X1 PRN; Protocol PRN Reason: Hypoglycemia Famotidine (Pepcid) 20 mg GT BID [facility] Last Admin: 12/25/17 21:17 Dose: 20 mg Furosemide (Lasix) 20 mg IV BID@1000,1800 [facility] Last Admin: 12/25/17 18:06 Dose: 20 mg Glucagon () 1 mg IM .X1 PRN PRN Reason: Hypoglycemia Heparin Sodium (Porcine) (Heparin Na) 0 unit IV UD PRN; Protocol Sodium Chloride () 250 mls @ 15 mls/hr IV .[id number] PRN PRN Reason: SALINE FLUSH Sodium Chloride () 250 mls @ 15 mls/hr IV .[id number] PRN PRN Reason: SALINE FLUSH Last Admin: 12/16/17 21:29 Dose: 15 mls/hr Sodium Chloride () 1,000 mls @ 0 mls/hr IV .Q0M [facility] Levofloxacin (Levaquin Iv) 750 mg in 150 mls @ 100 mls/hr IV Q24 [facility] Stop: 12/28/17 11:29 Last Admin: 12/25/17 11:01 Dose: 100 mls/hr Metronidazole (Flagyl) 500 mg in 100 mls @ 100 mls/hr IV Q8 [facility] Stop: 12/28/17 14:59 Last Admin: 12/26/17 05:28 Dose: 100 mls/hr Propofol (Diprivan) 1,000 mg in 100 mls @ 9.852 mls/hr CONT INF .[id number] [facility] Last Admin: 12/26/17 03:48 Dose: 9.852 mls/hr Heparin Sodium/Dextrose () 25,000 units in 250 mls @ 18 mls/hr IV .[id number] [facility]; Protocol Last Admin: 12/26/17 01:58 Dose: Not Given Fentanyl () 100 mls @ 7.5 mls/hr IV .Q40H [facility] Last Admin: 12/26/17 03:41 Dose: 7.5 mls/hr Enteral Nutritional Formula (Glucerna 1.5) 1,000 mls @ 55 mls/hr GT .[id number] [facility] Last Admin: 12/25/17 14:00 Dose: 55 mls/hr Insulin Glargine (Lantus (Bkc)) 35 units SC BID [facility] Last Admin: 12/25/17 21:17 Dose: 35 u Insulin Human Lispro (Humalog Kwikpen (Bkc)) 0 unit SC Q6 [facility]; Protocol Last Admin: 12/26/17 05:28 Dose: 3 u Magnesium Hydroxide (Milk Of Magnesia) 30 ml PO DAILY PRN PRN PRN Reason: Constipation Methylprednisolone (Solu-Medrol) 40 mg IV Q12 [facility] Last Admin: 12/25/17 21:17 Dose: 40 mg Polyethylene Glycol (Miralax) 17 gm GT DAILY PRN PRN PRN Reason: Constipation Potassium Bicarb/Potassium Chloride (Potassium Chl 25 Meq Eff (For Liquid)) 25 meq GT BID [facility] Last Admin: 12/25/17 21:17 Dose: 25 meq Sodium Chloride () 5 - 30 ml IV UD PRN PRN Reason: SALINE FLUSH Last Admin: 12/26/17 03:41 Dose: 20 ml Medical Necessity - Tobacco Use Smoking Status: Current every day smoker Assessment/Plan All Active Problems (Last Updated 12/25/17 @ 08:22 by Juan Manuel Subramanian DO) Aspiration pneumonia due to food (regurgitated) (Acute) Heart failure with preserved ejection fraction (Acute) GALILEA (acute kidney injury) (Acute) Klebsiella pneumonia (Acute) Acute respiratory failure with hypoxia and hypercapnia (Acute) Pneumococcal pneumonia (Acute) Metabolic encephalopathy (Resolved) Chest pain (Resolved) Respiratory failure, acute (Resolved) This is a 57 gentleman with multiple comorbidities including chronic combined respiratory failure, obstructive sleep apnea, CAD with multiple stents, history of cardiac arrest was admitted from [facility] for shortness of breath for 5 days prior to admission. Initial chest x-ray showed pulmonary congestion. EKG in the ED shows sinus rhythm with diffuse T wave inversions and initial troponin 0.022. Patient was emergently intubated in ED and admitted to ICU for respiratory arrest. 1 acute on chronic hypoxic and hypercarbic combined respiratory failure: Currently patient is euvolemic. On patient is 50% FiO2. Ventilatory being managed by sharepoint specialist. Scheduled for tracheostomy today. 2. Bilateral right lower lobe and left lower lobe Streptococcus pneumoniae and Klebsiella oxytoca pneumonia, right upper lobe subsegmental atelectasis: Patient on Levaquin since . Pulmonary tolerating. 3. Heart failure with preserved EF: Currently euvolemic. EF 60% on echo 12/12. 4. Electrolyte imbalance: Hyponatremia, hypochloremia: Sodium 151, chloride 109, K4.7. Lasix held. Free water supplement. 5. Acute kidney injury: Currently creatinine 0.83, BUN 42. Estimated creatinine clearance 92. AK I resolved. 6. Fevers no fever since 12/25. Low-grade fever in the morning hours of 12/25, T-max 99.8. * BCx on negative * TTE on the negative * UA negative x 3. VS urine culture of 12/12 no growth. Urine culture, preliminary from 12/23 shows yeastlike organism * Sputum culture positive of Streptococcus pneumoniae, Klebsiella oxytoca and yeast. * * BCx negative on the and 7. Diabetes mellitus type 2: Blood sugar is reasonably controlled. Less than 200 mg/dL. On Lantus 35 units twice daily. On Accu-Chek before meals and at bedtime covered with Lispro insulin high dose of 8. DVT prophylaxis: Heparin 500 seconds twice daily Discharge plan: Anticipate LTAC after tracheostomy Code Visit Inpatient E&M: 65538 [facility] L3
--- NOTE | 2017-12-26 08:55 | PCM.PN.BLA ---
Progress Note Patient evaluated resting comfortably in bed. He is alert and able to answer questions with yes or no. PEG tube was used last night without any concerns. His tube feeds were held overnight for trach placement today. Per nursing staff no erythema or leaking surrounding the tube. Dressing was changed by nursing. Code Visit Inpatient E&M: 76517 [facility] L1 - POST-OP
--- NOTE | 2017-12-26 08:58 | PN_ITS ---
Progress Note Patient evaluated resting comfortably in bed. He is alert and able to answer questions with yes or no. PEG tube was used last night without any concerns. His tube feeds were held overnight for trach placement today. Per nursing staff no erythema or leaking surrounding the tube. Dressing was changed by nursing. Code Visit Inpatient E&M: 66166 Subs Hosp L1 - POST-OP
--- NOTE | 2017-12-26 10:15 | CASEMGMT ---
Addendum entered by Soheila Perry 12/28/17 13:49: Correction: [facility] phone number is [phone]. Fax number is: [phone]. Original Note: Addendum entered by Soheila Perry 12/26/17 11:37: Received call back from IRWIN Wilkes. Inquired him of pt's need for LTACH. Villa stated his [facility] preference [phone] and left message with [employer]. Awaiting return call. Original Note: RN CM NOTE: RN CM in room to talk with pt. Introduced self and role of RN CM. Explained to pt need for LTACH and what an LTACH is and asked him if he has a preference of LTACH facility. Pt looked at RN CM as if he was unsure. Asked pt if he would like for RN CM to call his [facility], re: his preference of an LTACH and pt nodded his head yes. Call placed to pt's [facility], @ [phone] to inquire about LTACH preference. No answer. Message Left. Awaiting return call. Timi ALAN RN CM
[2017-12-26] MEDS: Chlorhexidine 15 ML PO ×2 (10:40→22:08)
[2017-12-26] MEDS: levoFLOXacin IV 750 MG/150 ML BAG 100 MG IV (10:41)
[2017-12-26 12:46] LABS: Bedside Glucose 136 mg/dL (70-110)
--- NOTE | 2017-12-26 13:55 | NURSING ---
Pt to OR w/OR staff.
--- NOTE | 2017-12-26 14:24 | CASEMGMT ---
RN CM NOTE: Call received from Cheli @ [facility]. She stated they do have a bed available. Referral packet w/clinical information faxed to: [facility] @ [phone]. She was made aware pt will be getting a trach today 12-26-17. Timi ARCEN CECIL CM.
--- NOTE | 2017-12-26 14:30 | RAD_ITS ---
STUDY: X-RAY CHEST REASON FOR EXAM: Male, 57 years old. Tracheostomy insertion. TECHNIQUE: Single AP portable view of the chest. COMPARISON: Comparison is made with prior study dated December 23, 2017. FINDINGS: A tracheostomy is in situ. The tip is 5.2 cm proximal to the byron. A right-sided PICC line catheter is in situ. The tip is in the proximal portion of the superior vena cava. Increased markings at the left lung base suggestive of left basilar atelectasis. There is blunting of left costophrenic angle. There is no evidence of pneumothorax. There is borderline cardiomegaly. Normal mediastinum and marta. Normal visualized pulmonary arteries. There is atherosclerotic calcification of the aortic arch with tortuosity. There are diffuse degenerative changes of the visualized thoracic spine. Normal visualized ribs, clavicles, and shoulders. There is no demonstrated abnormality of the visualized soft tissue structures of the upper abdomen. RAD/Chest 1 View (Portable) IMPRESSION: The tip of the tracheostomy is at 5.2 cm proximal to the byron. Alignment left basilar atelectasis with blunting of left costophrenic angle. Electronically Signed: Akhil Izquierdo MD at 15:10 EST Tel [phone], Service support ,
--- NOTE | 2017-12-26 15:01 | CT_ITS ---
STUDY: CTA CHEST REASON FOR EXAM: Male, 57 years old. Short of breath RADIATION DOSAGE (If Supplied By Facility): CTDIvol = ( 15.06 ) mGy, DLP = ( 767.14 ) mGycm TECHNIQUE: The examination was performed with the intravenous administration of 100ML ml of Isovue 370 contrast material. Post-processing of the angiographic images was performed, with multiplanar reformation and 3D reconstruction. Individualized dose optimization techniques were used for this CT. COMPARISON: AP portable chest on December 26, 2017 FINDINGS: Normal enhancement of the main pulmonary artery and right and left pulmonary arteries. Normal enhancement of the bilateral peripheral pulmonary arteries. There is no demonstrated pulmonary embolism. Mild atherosclerotic changes of the aorta without evidence for aneurysm There is no demonstrated aortic dissection. Heart is enlarged.. There is coronary artery stent present. Normal mediastinum. Normal hilar regions. Normal visualized trachea and bronchi. The lungs are well expanded. There is dense consolidation of the lower lobes bilaterally with air bronchograms. Normal pleura. Normal chest wall structures. Dorsal spine demonstrates moderate spondylosis PEG tube is noted within stomach.. CT/CTA Chest W/WO Contrast IMPRESSION: Dense bilateral lower lobe infiltrates.. No evidence for pulmonary embolus ASHD. No evidence for aortic aneurysm Electronically Signed: Filemon Orona MD at 16:35 EST , Service support ,
--- NOTE | 2017-12-26 15:10 | NURSING ---
Pt to OR w/ETT in place, did not get trach placed in OR, back to ICU w/ETT in place.
--- NOTE | 2017-12-26 15:10 | NURSING ---
Pt back to ICU from OR. No trach placed.
--- NOTE | 2017-12-26 15:14 | PCM.PN.BLA ---
Progress Note The patient was brought to the operating room. He was transferred to the OR table. He was prepped and draped at which point he dropped his saturations to the high 70s. Local was injected into the neck. He continued with saturations in the high 70s to mid 80s for about 40 minutes. The tube was repositioned and he was given albuterol to no avail. Dr. Cruz placed a bronchoscope in the ETT and he did not have a mucous plug. The tube was found to be positioned above the byron. We elected to not proceed with tracheotomy. He was placed upright and a chest xray was performed to evaluate for pneumothorax. Pneumothorax did not look apparent on the x-ray machine image. We then removed him from the OR and brought him to the ICU. His saturations eventually came up to the low 90s right before removal from the OR (he continued to be upright with a PEEP of 15 cm h20).
--- NOTE | 2017-12-26 17:02 | CPS ---
pt desaturated coming back up from surgery, no trach placed at this time due to desaturations laying flat. Pt was on 100% Peep 12 SpO2 89%, post cat scan pt on peep 12 FiO2 80% SpO2 89% will wean peep and FiO2 as tolerated.
[2017-12-26] MEDS: Clopidogrel Bisulfate 75 MG Tablet GT (20:20)
[2017-12-26] MEDS: Aspirin 81 MG TAB.CHEW GT (20:21)
[2017-12-26] MEDS: Atorvastatin Calcium 40 MG Tablet GT (20:21)
[2017-12-26] MEDS: Famotidine 20 MG Tablet GT (20:21)
[2017-12-26] MEDS: Heparin Injection (Vial) 5,000 UNIT/ML VIAL 5000 UNIT SC (20:22)
[2017-12-26 23:11] LABS: Bedside Glucose 119 mg/dL (70-110)
[2017-12-27] VITALS (35 sets, daily range): BP systolic 84–134; BP diastolic 51–120; PULSE 68–95; RESP 14–25; TEMP 36.1–37.3; O2SAT 90–100
[2017-12-27 00:46] LABS: Bedside Glucose 133 mg/dL (70-110)
[2017-12-27 04:18] LABS: Absolute Lymphocyte Count 1.39 X10^3/ul (0.83-4.51); Absolute Neutrophil Count 5.9 X10^3/uL (2.0-7.7); Basophil# 0.01 X10^3/uL; Basophil% 0.1 % (0-1); Eosinophil# 0.01 X10^3/uL; Eosinophils% 0.1 % (0-5); Lymphocyte # 1.39 X10^3/ul (4.0); Lymphocyte % 17.6 % (19-41); Mean Corpuscular Hgb 28.1 pg (27.0-32.0); Mean Corpuscular Volume 93.7 fL (80-94); Monocyte# 0.61 X10^3/uL; Monocyte% 7.7 % (0-10); Neutrophil # 5.87 X10^3/uL (2.7-7.7); Neutrophil % 74.1 % (47-70); Platelet Count 143 K/mm3 (150-450); RBC Distribution Width CV 14.8 % (11.6-14.6); RBC Distribution Width SD 49.2 fl (35.1-43.9); Red Blood Count 4.27 M/mm3 (4.6-6.2); White Blood Count 7.9 K/mm3 (4.4-11.0)
[2017-12-27 04:22] LABS: Anion Gap 7 (5-15); BUN 35 mg/dL (7-18); BUN/Creat Ratio 42.7 RATIO (10-20); Calcium,Total 8.7 mg/dL (8.5-10.1); Chloride 111 mmol/L (98-107); Creatinine, Serum 0.82 mg/dL (0.70-1.30); EST Glomerular Filtration Rate 102 mL/min (>60); Est Glom Filt Rate - Afr Amer 123 mL/min (>60); Estimated Creatinine Clearance 93.84 ml/min; Glucose 136 mg/dL (74-106); Potassium 3.9 mmol/L (3.5-5.1); Sodium Level 150 mmol/L (136-145)
[2017-12-27 04:26] LABS: POSITIVE COUNT NO; POSITIVE DIFFERENTIAL NO; POSITIVE MORPHOLOGY NO
[2017-12-27] MEDS: Propofol 10MG/Ml 1,000 MG/100 ML Bottle 9.852 MG CONT INF ×2 (05:10→17:23)
[2017-12-27] MEDS: CHLORHEXIDINE GLUC 2% CLOTH 1 EACH TOWELETTE TOPICAL (05:16)
[2017-12-27] MEDS: 0.9% NaCl Peripheral Flush Adult/Peds IV ×3 (05:17→15:46)
[2017-12-27 05:36] LABS: Bedside Glucose 136 mg/dL (70-110)
--- NOTE | 2017-12-27 06:35 | PCM.PN.INT ---
Subjective: The patient was seen and examined at the bedside this morning. Events from the last 24 hours have been reviewed. The patient is currently afebrile, hemodynamically stable and maintaining appropriate oxygen saturations with a PEEP requirement of 10 and 50% FiO2. Secretion production has decreased per nursing staff. The patient was taken to the OR yesterday afternoon for tracheostomy placement. However, during the patient's prep, he desaturated into the 70s. Due to the aforementioned, the patient's procedure was canceled. He returned to the ICU, after which time, he was taken for a CTA of his chest. That imaging study indicated no evidence for pulmonary embolism but did demonstrate bilateral lower lobe infiltrates. The patient was overall net -416 mL's yesterday. He is now overall net -9.1 L for the admission. Objective: The patient's most recent lab work, culture data and imaging studies have all been personally reviewed. Respiratory viral panel was negative. Surface echocardiogram revealed normal LV size and function with an ejection fraction of 60%. Sputum culture dated December 13 revealed evidence of Streptococcus pneumoniae. Repeat sputum culture dated December 16 was positive for Klebsiella. CTA chest dated December 26 revealed no evidence for pulmonary embolism, but did demonstrate bilateral lower lobe infiltrates. General: Alert, No apparent distress, - - Remains intubated, sedated and mechanically ventilated. HEENT: Atraumatic, PERRLA, Normocephalic Oral: No Gingival or Mucosal Lesions/ Ulcerations Neck: Supple, No Nodes, Trachea Midline Lungs: No rhonchi, No wheeze, No rales, Diminished, - - No significant airway secretions noted. Cardiovascular: Regular rate, Regular Rhythm, Normal S1, Normal S2, No murmurs Abdomen: Bowel Sounds Present, Soft, Non Tender, Obese, - - PEG site is C/D/I Extremities: No clubbing, No cyanosis, Edema - Trace Skin: - - No significant change from previous. Musculoskeletal: No Muscle Wasting Lymphatic: No Cervical, Supraclavicular, or Inguinal Adenopathy Neurological: Neuro grossly intact, - - Will arouse and follow commands appropriately. Vital Signs Temp Pulse Resp BP Pulse Ox 37.2 C 76 14 100/56 L 97 12/27/17 04:00 12/27/17 06:00 12/27/17 06:00 12/27/17 06:00 12/27/17 06:00 Oxygen Flow Rate (L/min) 50 Oxygen Delivery Method Mechanical Ventilator Weight: 313 lb 7.957 oz Body Mass Index (BMI) 55.5 Finger Stick Blood Glucose 193 Intake and Output for Last 24 Hours 12/25/17 12/26/17 12/27/17 23:59 23:59 23:59 Intake Total 3232.2 / 3232.2 1533.7 / 1533.7 1473.4 / 1473.4 Output Total 2320 / 2320 1950 / 1950 550 / 550 Balance 912.2 / 912.2 -416.3 / -416.3 923.4 / 923.4 Labs (Last 48 Hours) 12/25/17 12/25/17 12/25/17 11:48 18:15 21:16 WBC RBC Hgb Hct MCV MCH MCHC RDW RDW Differential Plt Count MPV Immature Gran % (Auto) Neut % (Auto) Lymph % (Auto) [place] % (Auto) Eos % (Auto) Baso % (Auto) Absolute Neuts (auto) Absolute Lymphs (auto) Total Counted PT INR Sodium Potassium Chloride Carbon Dioxide Anion Gap BUN Creatinine Estim Creat Clear Calc Est GFR (MDRD) Af Amer Est GFR (MDRD) Non-Af BUN/Creatinine Ratio Glucose Calcium POC Glucose 137 H 182 H 158 H 12/26/17 12/26/17 12/26/17 00:08 04:00 04:00 WBC 8.0 RBC 4.37 L Hgb 11.9 L Hct 41.2 MCV 94.3 H MCH 27.2 MCHC 28.9 L RDW 14.9 H RDW Differential 51.0 H Plt Count 145 L MPV 11.2 Immature Gran % (Auto) 0.300 Neut % (Auto) 83.5 H Lymph % (Auto) 12.3 L [place] % (Auto) 3.9 Eos % (Auto) 0.0 Baso % (Auto) 0.0 Absolute Neuts (auto) 6.7 Absolute Lymphs (auto) 0.98 Total Counted Not Reportable PT 14.8 INR 1.2 Sodium Potassium Chloride Carbon Dioxide Anion Gap BUN Creatinine Estim Creat Clear Calc Est GFR (MDRD) Af Amer Est GFR (MDRD) Non-Af BUN/Creatinine Ratio Glucose Calcium POC Glucose 161 H 12/26/17 12/26/17 12/26/17 04:00 05:27 12:17 WBC RBC Hgb Hct MCV MCH MCHC RDW RDW Differential Plt Count MPV Immature Gran % (Auto) Neut % (Auto) Lymph % (Auto) [place] % (Auto) Eos % (Auto) Baso % (Auto) Absolute Neuts (auto) Absolute Lymphs (auto) Total Counted PT INR Sodium 151 H Potassium 4.7 Chloride 109 H Carbon Dioxide 34.0 H Anion Gap 8 BUN 42 H Creatinine 0.83 Estim Creat Clear Calc 92.71 Est GFR (MDRD) Af Amer 122 Est GFR (MDRD) Non-Af 101 BUN/Creatinine Ratio 50.7 H Glucose 190 H Calcium 8.9 POC Glucose 182 H 136 H 12/26/17 12/26/17 12/27/17 18:35 22:57 04:00 WBC 7.9 RBC 4.27 L Hgb 12.0 L Hct 40.0 MCV 93.7 MCH 28.1 MCHC 30.0 L RDW 14.8 H RDW Differential 49.2 H Plt Count 143 L MPV 12.0 Immature Gran % (Auto) 0.400 Neut % (Auto) 74.1 H Lymph % (Auto) 17.6 L [place] % (Auto) 7.7 Eos % (Auto) 0.1 Baso % (Auto) 0.1 Absolute Neuts (auto) 5.9 Absolute Lymphs (auto) 1.39 Total Counted Not Reportable PT INR Sodium Potassium Chloride Carbon Dioxide Anion Gap BUN Creatinine Estim Creat Clear Calc Est GFR (MDRD) Af Amer Est GFR (MDRD) Non-Af BUN/Creatinine Ratio Glucose Calcium POC Glucose 133 H 119 H 12/27/17 12/27/17 04:00 05:23 WBC RBC Hgb Hct MCV MCH MCHC RDW RDW Differential Plt Count MPV Immature Gran % (Auto) Neut % (Auto) Lymph % (Auto) [place] % (Auto) Eos % (Auto) Baso % (Auto) Absolute Neuts (auto) Absolute Lymphs (auto) Total Counted PT INR Sodium 150 H Potassium 3.9 Chloride 111 H Carbon Dioxide 32.0 Anion Gap 7 BUN 35 H Creatinine 0.82 Estim Creat Clear Calc 93.84 Est GFR (MDRD) Af Amer 123 Est GFR (MDRD) Non-Af 102 BUN/Creatinine Ratio 42.7 H Glucose 136 H Calcium 8.7 POC Glucose 136 H Microbiology 12/23/17 08:30 Urine Catheter - Butler Urine Culture - Final Yeast, not Audra albicans 12/23/17 08:50 Blood Culture (Wb) - Right Wrist Blood Culture - Preliminary No growth in 48 hours. 12/23/17 08:40 Blood Culture (Wb) - Line Draw Blood Culture - Preliminary No growth in 48 hours. Clinical Impression(s) from Imaging Studies Brain CT 12/12/17 07:34 IMPRESSION: No CT evidence of acute intracranial hemorrhage. Electronically Signed: Katya Wright MD at 8:54 EST , Service support , Chest X-Ray 12/12/17 07:40 IMPRESSION: Cardiomegaly and mild pulmonary congestion. Electronically Signed: Katya Wright MD at 8:02 EST , Service support , Chest X-Ray 12/15/17 06:34 IMPRESSION: All the support tubes are in good position. Residual increased markings in both lungs as described although there has been improvement as compared to prior study. Electronically Signed: Akhil Izquierdo MD at 11:07 EST Tel [phone], Service support , Chest X-Ray 12/16/17 12:08 IMPRESSION: Stable examination. Electronically Signed: Akhil Izquierdo MD at 12:39 EST Tel [phone], Service support , Chest X-Ray 12/19/17 07:17 IMPRESSION: Residual increased markings at the left lung base suggestive of atelectasis and/or infiltrate. The remainder of the examination is unremarkable. Electronically Signed: Akhil Izquierdo MD at 8:45 EST Tel [phone], Service support , Chest X-Ray 12/20/17 06:05 IMPRESSION: Stable position of the endotracheal tube and enterogastric tube. Progressive left lower lobe atelectasis and/or infiltrate. Electronically Signed: Akhil Izquierdo MD at 9:15 EST Tel [phone], Service support , Chest X-Ray 12/21/17 14:25 IMPRESSION: 1. Endotracheal tube tip is 5.5 cm above the byron. 2. Suboptimal ventilatory effort with stable platelike atelectasis at the left base and mild atelectasis on the right, as noted. Electronically Signed: Brayan Pretty MD at 15:36 EST , Service support , Chest X-Ray 12/21/17 15:00 IMPRESSION: Limited examination. The tip of the orogastric tube appears to be in the distal portion of the esophagus. Electronically Signed: Akhil Izquierdo MD at 15:49 EST Tel [phone], Service support , Chest X-Ray 12/22/17 06:00 IMPRESSION: Increased markings at the lung bases more prominent at the left lung base with blunting of left costophrenic angle. Mild increased markings in the right upper lobe. Follow-up is recommended. The tip of the endotracheal tube is at 5 cm proximal to the byron. Electronically Signed: Akhil Izquierdo MD at 9:46 EST Tel [phone], Service support , Chest X-Ray 12/22/17 11:01 IMPRESSION: 1. Nasogastric tube passes beneath the diaphragm, its tip outside the [id number]. 2. Endotracheal tube unchanged. 3. Improved atelectasis in the right base. Atelectasis on the left is unchanged. 4. Borderline cardiac enlargement. No CHF. Electronically Signed: Brayan Pretty MD at 12:14 EST , Service support , Chest X-Ray 12/22/17 18:29 IMPRESSION: Endotracheal tube ends 4 cm above the byron. Enteric tube is well below the gastroesophageal junction. Stable lung findings with 1 broad platelike area of atelectasis or infiltrate across the left lung base. Electronically Signed: Janessa Combs MD at 22:21 EST , Service support , KUB X-Ray 12/22/17 19:00 IMPRESSION: Orogastric tube placement with tip in gastric body Electronically Signed: Filemon Orona MD at 23:43 EST , Service support , Chest X-Ray 12/23/17 04:27 IMPRESSION: 1. Bilateral basilar airspace consolidation and atelectasis. 2. Right upper lobe subsegmental atelectasis. Electronically Signed: Katya Wright MD at 8:46 EST , Service support , Chest X-Ray 12/26/17 14:30 IMPRESSION: The tip of the tracheostomy is at 5.2 cm proximal to the byron. Alignment left basilar atelectasis with blunting of left costophrenic angle. Electronically Signed: Akhil Izquierdo MD at 15:10 EST Tel [phone], Service support , Chest CTA 12/26/17 15:01 IMPRESSION: Dense bilateral lower lobe infiltrates.. No evidence for pulmonary embolus ASHD. No evidence for aortic aneurysm Electronically Signed: Filemon Orona MD at 16:35 EST , Service support , Medical Necessity - Tobacco Use Smoking Status: Current every day smoker Assessment/Plan All Active Problems (Last Updated 12/25/17 @ 08:22 by Juan Manuel Subramanian DO) Aspiration pneumonia due to food (regurgitated) (Acute) Heart failure with preserved ejection fraction (Acute) GALILEA (acute kidney injury) (Acute) Klebsiella pneumonia (Acute) Acute respiratory failure with hypoxia and hypercapnia (Acute) Pneumococcal pneumonia (Acute) Metabolic encephalopathy (Resolved) Chest pain (Resolved) Respiratory failure, acute (Resolved) RECOMMENDATIONS: 1. Discussed case with ENT. Tentative plans for tracheostomy Tuesday. Tube feeds will need to be placed on hold midnight the night before. 2. Continue antibiotics to complete treatment course. 3. Continue bronchodilators. 4. Resume subcutaneous heparin and Pepcid for prophylaxis. 5. Continue tube feeds. Patient will be transition to an alternative formula that will increase free water. 6. Transition from IV steroids to prednisone 40 mg daily via G-tube with plans for prolonged taper. 7. Gentle diuresis IMPRESSIONS: 1. Acute on chronic combined respiratory failure Likely secondary to decompensated heart failure in the setting of medical noncompliance, with superimposed bronchospastic airway disease, ongoing tobacco dependence and aspiration pneumonia all contributing. The patient's hospital course to date has been complicated by 2 independent self extubations by the patient leading to aspiration of gastric contents. He remains on antibiotics accordingly. The patient has already undergone PEG tube placement and attempt was made on December 26 for tracheostomy placement. However, the patient desaturated in the OR leading to cancellation of the procedure. A follow-up CTA chest revealed no evidence for pulmonary embolism. The etiology for the patient's hypoxia was likely the consequence of alveolar derecruitment. Continue to wean FiO2 and PEEP as tolerated. Would plan to keep the patient's oxygen saturations 88-92%, to prevent paradoxical CO2 retention. Continue current sedation regimen as ordered. 2. Metabolic encephalopathy Improved. Likely secondary to acute on chronic CO2 retention. Anticipate improvement with correction of the patient's underlying metabolic derangements. Minimize sedation as tolerated. 3. Decompensated heart failure/history of ischemic cardiomyopathy The patient's weight is significantly elevated when compared to that documented from November. The patient has been diuresed a great amount over his hospitalization. However, he has had a rising sodium level, for which his diuretic regimen has been augmented. In addition, the patient's tube feeds will be transition to an alternative formula to increase the amount of free water in his diet. 4. Diabetes mellitus Continue Accu-Cheks and sliding scale insulin coverage. 5. Obstructive sleep apnea The patient has a history of outpatient noncompliance with the use of nocturnal Pap therapy. He only utilizes supplemental oxygen on a nightly basis. 6. Ongoing tobacco dependence/super morbid obesity/history of medical noncompliance/hypertension Complicates care, management, recovery and prognosis. Nicotine replacement therapy can be utilized while admitted to the hospital. TIME: 40 minutes of critical care time, independent of procedures, was spent addressing the patient's acute on chronic combined respiratory failure, metabolic encephalopathy, decompensated heart failure, obstructive sleep apnea, review of all data and collaboration with the care team. ([id number]) Code Visit [id number]: [id number] Critical care first hour
--- NOTE | 2017-12-27 06:40 | PN_ITS ---
Subjective: The patient was seen and examined at the bedside this morning. Events from the last 24 hours have been reviewed. The patient is currently afebrile, hemodynamically stable and maintaining appropriate oxygen saturations with a PEEP requirement of 10 and 50% FiO2. Secretion production has decreased per nursing staff. The patient was taken to the OR yesterday afternoon for tracheostomy placement. However, during the patient's prep, he desaturated into the 70s. Due to the aforementioned, the patient's procedure was canceled. He returned to the ICU, after which time, he was taken for a CTA of his chest. That imaging study indicated no evidence for pulmonary embolism but did demonstrate bilateral lower lobe infiltrates. The patient was overall net -416 mL's yesterday. He is now overall net -9.1 L for the admission. Objective: The patient's most recent lab work, culture data and imaging studies have all been personally reviewed. Respiratory viral panel was negative. Surface echocardiogram revealed normal LV size and function with an ejection fraction of 60%. Sputum culture dated December 13 revealed evidence of Streptococcus pneumoniae. Repeat sputum culture dated December 16 was positive for Klebsiella. CTA chest dated December 26 revealed no evidence for pulmonary embolism, but did demonstrate bilateral lower lobe infiltrates. General: Alert, No apparent distress, - - Remains intubated, sedated and mechanically ventilated. HEENT: Atraumatic, PERRLA, Normocephalic Oral: No Gingival or Mucosal Lesions/ Ulcerations Neck: Supple, No Nodes, Trachea Midline Lungs: No rhonchi, No wheeze, No rales, Diminished, - - No significant airway secretions noted. Cardiovascular: Regular rate, Regular Rhythm, Normal S1, Normal S2, No murmurs Abdomen: Bowel Sounds Present, Soft, Non Tender, Obese, - - PEG site is C/D/I Extremities: No clubbing, No cyanosis, Edema - Trace Skin: - - No significant change from previous. Musculoskeletal: No Muscle Wasting Lymphatic: No Cervical, Supraclavicular, or Inguinal Adenopathy Neurological: Neuro grossly intact, - - Will arouse and follow commands appropriately. Vital Signs Temp Pulse Resp BP Pulse Ox 37.2 C 76 14 100/56 L 97 12/27/17 04:00 12/27/17 06:00 12/27/17 06:00 12/27/17 06:00 12/27/17 06:00 Oxygen Flow Rate (L/min) 50 Oxygen Delivery Method Mechanical Ventilator Weight: 313 lb 7.957 oz Body Mass Index (BMI) 55.5 Finger Stick Blood Glucose 193 Intake and Output for Last 24 Hours 12/25/17 12/26/17 12/27/17 23:59 23:59 23:59 Intake Total 3232.2 / 3232.2 1533.7 / 1533.7 1473.4 / 1473.4 Output Total 2320 / 2320 1950 / 1950 550 / 550 Balance 912.2 / 912.2 -416.3 / -416.3 923.4 / 923.4 Labs (Last 48 Hours) 12/25/17 12/25/17 12/25/17 11:48 18:15 21:16 WBC RBC Hgb Hct MCV MCH MCHC RDW RDW Differential Plt Count MPV Immature Gran % (Auto) Neut % (Auto) Lymph % (Auto) Gove % (Auto) Eos % (Auto) Baso % (Auto) Absolute Neuts (auto) Absolute Lymphs (auto) Total Counted PT INR Sodium Potassium Chloride Carbon Dioxide Anion Gap BUN Creatinine Estim Creat Clear Calc Est GFR (MDRD) Af Amer Est GFR (MDRD) Non-Af BUN/Creatinine Ratio Glucose Calcium POC Glucose 137 H 182 H 158 H 12/26/17 12/26/17 12/26/17 00:08 04:00 04:00 WBC 8.0 RBC 4.37 L Hgb 11.9 L Hct 41.2 MCV 94.3 H MCH 27.2 MCHC 28.9 L RDW 14.9 H RDW Differential 51.0 H Plt Count 145 L MPV 11.2 Immature Gran % (Auto) 0.300 Neut % (Auto) 83.5 H Lymph % (Auto) 12.3 L Gove % (Auto) 3.9 Eos % (Auto) 0.0 Baso % (Auto) 0.0 Absolute Neuts (auto) 6.7 Absolute Lymphs (auto) 0.98 Total Counted Not Reportable PT 14.8 INR 1.2 Sodium Potassium Chloride Carbon Dioxide Anion Gap BUN Creatinine Estim Creat Clear Calc Est GFR (MDRD) Af Amer Est GFR (MDRD) Non-Af BUN/Creatinine Ratio Glucose Calcium POC Glucose 161 H 12/26/17 12/26/17 12/26/17 04:00 05:27 12:17 WBC RBC Hgb Hct MCV MCH MCHC RDW RDW Differential Plt Count MPV Immature Gran % (Auto) Neut % (Auto) Lymph % (Auto) Gove % (Auto) Eos % (Auto) Baso % (Auto) Absolute Neuts (auto) Absolute Lymphs (auto) Total Counted PT INR Sodium 151 H Potassium 4.7 Chloride 109 H Carbon Dioxide 34.0 H Anion Gap 8 BUN 42 H Creatinine 0.83 Estim Creat Clear Calc 92.71 Est GFR (MDRD) Af Amer 122 Est GFR (MDRD) Non-Af 101 BUN/Creatinine Ratio 50.7 H Glucose 190 H Calcium 8.9 POC Glucose 182 H 136 H 12/26/17 12/26/17 12/27/17 18:35 22:57 04:00 WBC 7.9 RBC 4.27 L Hgb 12.0 L Hct 40.0 MCV 93.7 MCH 28.1 MCHC 30.0 L RDW 14.8 H RDW Differential 49.2 H Plt Count 143 L MPV 12.0 Immature Gran % (Auto) 0.400 Neut % (Auto) 74.1 H Lymph % (Auto) 17.6 L Gove % (Auto) 7.7 Eos % (Auto) 0.1 Baso % (Auto) 0.1 Absolute Neuts (auto) 5.9 Absolute Lymphs (auto) 1.39 Total Counted Not Reportable PT INR Sodium Potassium Chloride Carbon Dioxide Anion Gap BUN Creatinine Estim Creat Clear Calc Est GFR (MDRD) Af Amer Est GFR (MDRD) Non-Af BUN/Creatinine Ratio Glucose Calcium POC Glucose 133 H 119 H 12/27/17 12/27/17 04:00 05:23 WBC RBC Hgb Hct MCV MCH MCHC RDW RDW Differential Plt Count MPV Immature Gran % (Auto) Neut % (Auto) Lymph % (Auto) Gove % (Auto) Eos % (Auto) Baso % (Auto) Absolute Neuts (auto) Absolute Lymphs (auto) Total Counted PT INR Sodium 150 H Potassium 3.9 Chloride 111 H Carbon Dioxide 32.0 Anion Gap 7 BUN 35 H Creatinine 0.82 Estim Creat Clear Calc 93.84 Est GFR (MDRD) Af Amer 123 Est GFR (MDRD) Non-Af 102 BUN/Creatinine Ratio 42.7 H Glucose 136 H Calcium 8.7 POC Glucose 136 H Microbiology 12/23/17 08:30 Urine Catheter - Butler Urine Culture - Final Yeast, not Audra albicans 12/23/17 08:50 Blood Culture (Wb) - Right Wrist Blood Culture - Preliminary No growth in 48 hours. 12/23/17 08:40 Blood Culture (Wb) - Line Draw Blood Culture - Preliminary No growth in 48 hours. Clinical Impression(s) from Imaging Studies Brain CT 12/12/17 07:34 IMPRESSION: No CT evidence of acute intracranial hemorrhage. Electronically Signed: Katya Wright MD at 8:54 EST , Service support , Chest X-Ray 12/12/17 07:40 IMPRESSION: Cardiomegaly and mild pulmonary congestion. Electronically Signed: Katya Wright MD at 8:02 EST , Service support , Chest X-Ray 12/15/17 06:34 IMPRESSION: All the support tubes are in good position. Residual increased markings in both lungs as described although there has been improvement as compared to prior study. Electronically Signed: Akhil Izquierdo MD at 11:07 EST Tel [phone], Service support , Chest X-Ray 12/16/17 12:08 IMPRESSION: Stable examination. Electronically Signed: Akhil Izquierdo MD at 12:39 EST Tel [phone], Service support , Chest X-Ray 12/19/17 07:17 IMPRESSION: Residual increased markings at the left lung base suggestive of atelectasis and/or infiltrate. The remainder of the examination is unremarkable. Electronically Signed: Akhil Izquierdo MD at 8:45 EST Tel [phone], Service support , Chest X-Ray 12/20/17 06:05 IMPRESSION: Stable position of the endotracheal tube and enterogastric tube. Progressive left lower lobe atelectasis and/or infiltrate. Electronically Signed: Akhil Izquierdo MD at 9:15 EST Tel [phone], Service support , Chest X-Ray 12/21/17 14:25 IMPRESSION: 1. Endotracheal tube tip is 5.5 cm above the byron. 2. Suboptimal ventilatory effort with stable platelike atelectasis at the left base and mild atelectasis on the right, as noted. Electronically Signed: Brayan Pretty MD at 15:36 EST , Service support , Chest X-Ray 12/21/17 15:00 IMPRESSION: Limited examination. The tip of the orogastric tube appears to be in the distal portion of the esophagus. Electronically Signed: Akhil Izquierdo MD at 15:49 EST Tel [phone], Service support , Chest X-Ray 12/22/17 06:00 IMPRESSION: Increased markings at the lung bases more prominent at the left lung base with blunting of left costophrenic angle. Mild increased markings in the right upper lobe. Follow-up is recommended. The tip of the endotracheal tube is at 5 cm proximal to the byron. Electronically Signed: Akhil Izquierdo MD at 9:46 EST Tel [phone], Service support , Chest X-Ray 12/22/17 11:01 IMPRESSION: 1. Nasogastric tube passes beneath the diaphragm, its tip outside the [id number]. 2. Endotracheal tube unchanged. 3. Improved atelectasis in the right base. Atelectasis on the left is unchanged. 4. Borderline cardiac enlargement. No CHF. Electronically Signed: Brayan Pretty MD at 12:14 EST , Service support , Chest X-Ray 12/22/17 18:29 IMPRESSION: Endotracheal tube ends 4 cm above the byron. Enteric tube is well below the gastroesophageal junction. Stable lung findings with 1 broad platelike area of atelectasis or infiltrate across the left lung base. Electronically Signed: Janessa Combs MD at 22:21 EST , Service support , KUB X-Ray 12/22/17 19:00 IMPRESSION: Orogastric tube placement with tip in gastric body Electronically Signed: Filemon Orona MD at 23:43 EST , Service support , Chest X-Ray 12/23/17 04:27 IMPRESSION: 1. Bilateral basilar airspace consolidation and atelectasis. 2. Right upper lobe subsegmental atelectasis. Electronically Signed: Katya Wright MD at 8:46 EST , Service support , Chest X-Ray 12/26/17 14:30 IMPRESSION: The tip of the tracheostomy is at 5.2 cm proximal to the byron. Alignment left basilar atelectasis with blunting of left costophrenic angle. Electronically Signed: Akhil Izquierdo MD at 15:10 EST Tel [phone], Service support , Chest CTA 12/26/17 15:01 IMPRESSION: Dense bilateral lower lobe infiltrates.. No evidence for pulmonary embolus ASHD. No evidence for aortic aneurysm Electronically Signed: Filemon Orona MD at 16:35 EST , Service support , Medical Necessity - Tobacco Use Smoking Status: Current every day smoker Assessment/Plan All Active Problems (Last Updated 12/25/17 @ 08:22 by Juan Manuel Subramanian DO) Aspiration pneumonia due to food (regurgitated) (Acute) Heart failure with preserved ejection fraction (Acute) GALILEA (acute kidney injury) (Acute) Klebsiella pneumonia (Acute) Acute respiratory failure with hypoxia and hypercapnia (Acute) Pneumococcal pneumonia (Acute) Metabolic encephalopathy (Resolved) Chest pain (Resolved) Respiratory failure, acute (Resolved) RECOMMENDATIONS: 1. Discussed case with ENT. Tentative plans for tracheostomy Tuesday. Tube feeds will need to be placed on hold midnight the night before. 2. Continue antibiotics to complete treatment course. 3. Continue bronchodilators. 4. Resume subcutaneous heparin and Pepcid for prophylaxis. 5. Continue tube feeds. Patient will be transition to an alternative formula that will increase free water. 6. Transition from IV steroids to prednisone 40 mg daily via G-tube with plans for prolonged taper. 7. Gentle diuresis IMPRESSIONS: 1. Acute on chronic combined respiratory failure Likely secondary to decompensated heart failure in the setting of medical noncompliance, with superimposed bronchospastic airway disease, ongoing tobacco dependence and aspiration pneumonia all contributing. The patient's hospital course to date has been complicated by 2 independent self extubations by the patient leading to aspiration of gastric contents. He remains on antibiotics accordingly. The patient has already undergone PEG tube placement and attempt was made on December 26 for tracheostomy placement. However, the patient desaturated in the OR leading to cancellation of the procedure. A follow-up CTA chest revealed no evidence for pulmonary embolism. The etiology for the patient's hypoxia was likely the consequence of alveolar derecruitment. Continue to wean FiO2 and PEEP as tolerated. Would plan to keep the patient's oxygen saturations 88-92%, to prevent paradoxical CO2 retention. Continue current sedation regimen as ordered. 2. Metabolic encephalopathy Improved. Likely secondary to acute on chronic CO2 retention. Anticipate improvement with correction of the patient's underlying metabolic derangements. Minimize sedation as tolerated. 3. Decompensated heart failure/history of ischemic cardiomyopathy The patient's weight is significantly elevated when compared to that documented from November. The patient has been diuresed a great amount over his hospitalization. However, he has had a rising sodium level, for which his diuretic regimen has been augmented. In addition, the patient's tube feeds will be transition to an alternative formula to increase the amount of free water in his diet. 4. Diabetes mellitus Continue Accu-Cheks and sliding scale insulin coverage. 5. Obstructive sleep apnea The patient has a history of outpatient noncompliance with the use of nocturnal Pap therapy. He only utilizes supplemental oxygen on a nightly basis. 6. Ongoing tobacco dependence/super morbid obesity/history of medical noncompliance/hypertension Complicates care, management, recovery and prognosis. Nicotine replacement therapy can be utilized while admitted to the hospital. TIME: 40 minutes of critical care time, independent of procedures, was spent addressing the patient's acute on chronic combined respiratory failure, metabolic encephalopathy, decompensated heart failure, obstructive sleep apnea, review of all data and collaboration with the care team. ([id number]) Code Visit 9xxxx: [id number] Critical care first hour
[2017-12-27] MEDS: Albuterol 2.5 MG/3 ML VIAL.NEB. INHALATION ×3 (06:49→19:15)
--- NOTE | 2017-12-27 07:30 | PCM.PN.HOSP ---
Patient Problems: Active and Suspected Problems (Last Updated 12/25/17 @ 08:22 by Juan Manuel Subramanian DO) Aspiration pneumonia due to food (regurgitated) (Acute) Subjective: Tracheostomy was canceled yesterday because patient desaturated into 70s and patient was transferred back to ICU. Currently patient is on FiO2 50% PEEP of 10. Patient had CT angiogram of chest which was negative for PE but showed bilateral lower lobe consolidations. Patient will be seen by property staff accountant/scutcher tender. No fever Vitals/I&O's: Vital Signs Temp Pulse Resp BP Pulse Ox 98.9 F 73 14 100/56 L 90 12/27/17 04:00 12/27/17 06:49 12/27/17 06:49 12/27/17 06:00 12/27/17 06:49 Oxygen Flow Rate (L/min) 50 Oxygen Delivery Method Mechanical Ventilator Weight: 313 lb 7.957 oz Body Mass Index (BMI) 55.5 Finger Stick Blood Glucose 193 Intake and Output for Last 24 Hours 12/25/17 12/26/17 12/27/17 23:59 23:59 23:59 Intake Total 3232.2 / 3232.2 1533.7 / 1533.7 1473.4 / 1473.4 Output Total 2320 / 2320 1950 / 1950 550 / 550 Balance 912.2 / 912.2 -416.3 / -416.3 923.4 / 923.4 General: Lethargic, - - On ventilator HEENT: Atraumatic, PERRLA, EOMI, Normocephalic Neck: Supple, No JVD, Negative Carotid Bruits Lungs: No rhonchi, No wheeze, No rales, Diminished Cardiovascular: Regular rate, Normal S1, Normal S2, No murmurs Abdomen: Bowel Sounds Present, Soft, Non Tender, Non-Distended, - - Butler catheter present; 550 mL since 12 AM. Yesterday about 2 L urine output Extremities: Edema Skin: No rashes, No breakdown Musculoskeletal: Arthritic Changes, Muscle Wasting Neurological: Cranial nerves II-XII grossly intact, Neuro grossly intact Microbiology Past 72 Hours 12/23/17 08:30 Urine Catheter - Butler Urine Culture - Final Yeast, not Audra albicans 12/23/17 08:50 Blood Culture (Wb) - Right Wrist Blood Culture - Preliminary No growth in 48 hours. 12/23/17 08:40 Blood Culture (Wb) - Line Draw Blood Culture - Preliminary No growth in 48 hours. Laboratory Results 12/26/17 12:17: POC Glucose 136 H 12/26/17 18:35: POC Glucose 133 H 12/26/17 22:57: POC Glucose 119 H 12/27/17 04:00: WBC 7.9, RBC 4.27 L, Hgb 12.0 L, Hct 40.0, MCV 93.7, MCH 28.1, MCHC 30.0 L, RDW 14.8 H, RDW Differential 49.2 H, Plt Count 143 L, MPV 12.0, Immature Gran % (Auto) 0.400, Neut % (Auto) 74.1 H, Lymph % (Auto) 17.6 L, [place] % (Auto) 7.7, Eos % (Auto) 0.1, Baso % (Auto) 0.1, Absolute Neuts (auto) 5.9, Absolute Lymphs (auto) 1.39, Total Counted Not Reportable 12/27/17 04:00: Sodium 150 H, Potassium 3.9, Chloride 111 H, Carbon Dioxide 32.0, Anion Gap 7, BUN 35 H, Creatinine 0.82, Estim Creat Clear Calc 93.84, Est GFR (MDRD) Af Amer 123, Est GFR (MDRD) Non-Af 102, BUN/Creatinine Ratio 42.7 H, Glucose 136 H, Calcium 8.7 12/27/17 05:23: POC Glucose 136 H Current Medications Acetaminophen (Tylenol Liquid) 650 mg GT Q6H PRN PRN PRN Reason: FEVER Last Admin: 12/24/17 00:16 Dose: 650 mg Albuterol Sulfate (Ventolin Aerosols) 2.5 mg INHALATION Q6HWA.RT JUANY Last Admin: 12/27/17 06:49 Dose: 2.5 mg Aspirin (Aspirin, Baby) 81 mg GT DAILY JUANY Last Admin: 12/26/17 20:21 Dose: 81 mg Atorvastatin Calcium (Lipitor) 40 mg GT QHS JUANY Last Admin: 12/26/17 20:21 Dose: 40 mg Chlorhexidine Gluconate () 15 ml PO BID JUANY Last Admin: 12/26/17 22:08 Dose: 15 ml Chlorhexidine Gluconate () 1 each TOPICAL DAILY [facility] Last Admin: 12/27/17 05:16 Dose: 1 each Clopidogrel Bisulfate (Plavix) 75 mg GT DAILY [facility] Last Admin: 12/26/17 20:20 Dose: 75 mg Dextrose (D50w Syringe) 0 gm IV X1 PRN; Protocol PRN Reason: Hypoglycemia Famotidine (Pepcid) 20 mg GT BID [facility] Last Admin: 12/26/17 20:21 Dose: 20 mg Glucagon () 1 mg IM .X1 PRN PRN Reason: Hypoglycemia Heparin Sodium (Porcine) (Heparin Na) 5,000 unit SC Q8 [facility] Last Admin: 12/27/17 05:18 Dose: Not Given Sodium Chloride () 250 mls @ 15 mls/hr IV .[id number] PRN PRN Reason: SALINE FLUSH Sodium Chloride () 250 mls @ 15 mls/hr IV .[id number] PRN PRN Reason: SALINE FLUSH Last Admin: 12/16/17 21:29 Dose: 15 mls/hr Sodium Chloride () 1,000 mls @ 0 mls/hr IV .Q0M [facility] Levofloxacin (Levaquin Iv) 750 mg in 150 mls @ 100 mls/hr IV Q24 [facility] Stop: 12/28/17 11:29 Last Admin: 12/26/17 10:41 Dose: 100 mls/hr Metronidazole (Flagyl) 500 mg in 100 mls @ 100 mls/hr IV Q8 [facility] Stop: 12/28/17 14:59 Last Admin: 12/27/17 05:20 Dose: 100 mls/hr Propofol (Diprivan) 1,000 mg in 100 mls @ 9.852 mls/hr CONT INF .[id number] [facility] Last Admin: 12/27/17 05:10 Dose: 9.852 mls/hr Fentanyl () 100 mls @ 7.5 mls/hr IV .Q40H [facility] Last Admin: 12/26/17 17:58 Dose: 7.5 mls/hr Enteral Nutritional Formula (Glucerna 1.5) 1,000 mls @ 55 mls/hr GT .[id number] [facility] Last Admin: 12/26/17 20:20 Dose: 55 mls/hr Insulin Glargine (Lantus (Bkc)) 35 units SC BID [facility] Last Admin: 12/26/17 22:58 Dose: 35 u Insulin Human Lispro (Humalog Kwikpen (Bkc)) 0 unit SC Q6 [facility]; Protocol Last Admin: 12/27/17 05:24 Dose: Not Given Magnesium Hydroxide (Milk Of Magnesia) 30 ml PO DAILY PRN PRN PRN Reason: Constipation Methylprednisolone (Solu-Medrol) 40 mg IV Q12 JUANY Last Admin: 12/26/17 20:22 Dose: 40 mg Polyethylene Glycol (Miralax) 17 gm GT DAILY PRN PRN PRN Reason: Constipation Potassium Bicarb/Potassium Chloride (Potassium Chl 25 Meq Eff (For Liquid)) 25 meq GT DAILY JUANY Sodium Chloride () 5 - 30 ml IV UD PRN PRN Reason: SALINE FLUSH Last Admin: 12/27/17 05:17 Dose: 20 ml Medical Necessity - Tobacco Use Smoking Status: Current every day smoker Assessment/Plan All Active Problems (Last Updated 12/25/17 @ 08:22 by Juan Manuel Subramanian DO) Aspiration pneumonia due to food (regurgitated) (Acute) Heart failure with preserved ejection fraction (Acute) GALILEA (acute kidney injury) (Acute) Klebsiella pneumonia (Acute) Acute respiratory failure with hypoxia and hypercapnia (Acute) Pneumococcal pneumonia (Acute) Metabolic encephalopathy (Resolved) Chest pain (Resolved) Respiratory failure, acute (Resolved) This is a 57 gentleman with multiple comorbidities including chronic combined respiratory failure, obstructive sleep apnea, CAD with multiple stents, history of cardiac arrest was admitted from senior care for shortness of breath for 5 days prior to admission. Initial chest x-ray showed pulmonary congestion. EKG in the ED shows sinus rhythm with diffuse T wave inversions and initial troponin 0.022. Patient was emergently intubated in ED and admitted to ICU for respiratory arrest. 1 acute on chronic hypoxic and hypercarbic combined respiratory failure: Currently patient is euvolemic. On patient is 50% FiO2. Ventilatory being managed by property staff accountant. Tracheostomy postponed to Tuesday. 2. Bilateral right lower lobe and left lower lobe Streptococcus pneumoniae and Klebsiella oxytoca pneumonia, right upper lobe subsegmental atelectasis: Patient on Levaquin since . Pulmonary tolerating. 3. Heart failure with preserved EF: Currently euvolemic. EF 60% on echo 12/12. Lasix was started today with 40 mg IV twice daily. Patient also has moderate global LV dysfunction with right ventricular enlargement although echo study on 12/12 was suboptimal 4. Electrolyte imbalance: Hyponatremia, hypochloremia: Sodium 150, chlorid 111, K3.9. Free water supplement. 5. Acute kidney injury: Currently creatinine 0.83, BUN 42. Estimated creatinine clearance 92. GALILEA resolved. 6. Fevers no fever since 12/25. Low-grade fever in the morning hours of 12/25, T-max 99.8. BCx on negative TTE on the negative UA negative x 3. VS urine culture of 12/12 no growth. Urine culture, preliminary from 12/23 shows yeastlike organism Sputum culture positive of Streptococcus pneumoniae, Klebsiella oxytoca and yeast. BCx negative on the and 7. Diabetes mellitus type 2: Blood sugar is reasonably controlled. Less than 200 mg/dL. On Lantus 35 units twice daily. On Accu-Chek before meals and at bedtime covered with Lispro insulin high dose of 8. DVT prophylaxis: Heparin 5000 units every 8 hourly Discharge plan: Anticipate LTAC after tracheostomy Active Medications Acetaminophen (Tylenol Liquid) 650 mg GT Q6H PRN PRN PRN Reason: FEVER Last Admin: 12/24/17 00:16 Dose: 650 mg Albuterol Sulfate (Ventolin Aerosols) 2.5 mg INHALATION Q6HWA.RT [facility] Last Admin: 12/27/17 13:30 Dose: 2.5 mg Aspirin (Aspirin, Baby) 81 mg GT DAILY [facility] Last Admin: 12/27/17 08:43 Dose: 81 mg Atorvastatin Calcium (Lipitor) 40 mg GT QHS [facility] Last Admin: 12/26/17 20:21 Dose: 40 mg Chlorhexidine Gluconate () 15 ml PO BID [facility] Last Admin: 12/27/17 08:42 Dose: 15 ml Chlorhexidine Gluconate () 1 each TOPICAL DAILY [facility] Last Admin: 12/27/17 05:16 Dose: 1 each Clopidogrel Bisulfate (Plavix) 75 mg GT DAILY [facility] Last Admin: 12/27/17 08:43 Dose: 75 mg Dextrose (D50w Syringe) 0 gm IV X1 PRN; Protocol PRN Reason: Hypoglycemia Famotidine (Pepcid) 20 mg GT BID [facility] Last Admin: 12/27/17 08:43 Dose: 20 mg Furosemide (Lasix) 40 mg IV BID@1000,1800 [facility] Last Admin: 12/27/17 11:08 Dose: 40 mg Glucagon () 1 mg IM .X1 PRN PRN Reason: Hypoglycemia Heparin Sodium (Porcine) (Heparin Na) 5,000 unit SC Q8 [facility] Last Admin: 12/27/17 05:18 Dose: Not Given Sodium Chloride () 250 mls @ 15 mls/hr IV .[id number] PRN PRN Reason: SALINE FLUSH Sodium Chloride () 250 mls @ 15 mls/hr IV .[id number] PRN PRN Reason: SALINE FLUSH Last Admin: 12/16/17 21:29 Dose: 15 mls/hr Sodium Chloride () 1,000 mls @ 0 mls/hr IV .Q0M [facility] Propofol (Diprivan) 1,000 mg in 100 mls @ 9.852 mls/hr CONT INF .[id number] [facility] Last Admin: 12/27/17 05:10 Dose: 9.852 mls/hr Fentanyl () 100 mls @ 7.5 mls/hr IV .Q40H [facility] Last Admin: 12/27/17 08:41 Dose: 7.5 mls/hr Enteral Nutritional Formula (Vital Af 1.2 Jeremiah Liquid) 1,000 mls @ 65 mls/hr GT .[id number] [facility] Sodium Chloride () 1,000 mls @ 0 mls/hr IV .Q0M [facility] Insulin Glargine (Lantus (Bk)) 35 units SC BID [facility] Last Admin: 12/27/17 11:07 Dose: 35 u Insulin Human Lispro (Humalog Kwikpen ([facility])) 0 unit SC Q6 [facility]; Protocol Last Admin: 12/27/17 12:50 Dose: Not Given Levofloxacin (Levaquin Tablet) 750 mg PO DAILY@0600 [facility] Last Admin: 12/27/17 11:08 Dose: 750 mg Magnesium Hydroxide (Milk Of Magnesia) 30 ml PO DAILY PRN PRN PRN Reason: Constipation Metronidazole (Flagyl) 500 mg PO Q8 [facility] Stop: 12/28/17 22:01 Polyethylene Glycol (Miralax) 17 gm GT DAILY PRN PRN PRN Reason: Constipation Potassium Bicarb/Potassium Chloride (Potassium Chl 25 Meq Eff (For Liquid)) 25 meq GT DAILY [facility] Last Admin: 12/27/17 08:44 Dose: 25 meq Prednisone () 40 mg GT DAILY@0800 JUANY Sodium Chloride () 5 - 30 ml IV UD PRN PRN Reason: SALINE FLUSH Last Admin: 12/27/17 11:08 Dose: 10 ml Code Visit Inpatient E&M: 75740 Subs Hosp L3
[2017-12-27] MEDS: fentaNYL drip 100 ML 7.5 MCG IV (08:41)
[2017-12-27] MEDS: Chlorhexidine 15 ML PO ×2 (08:42→22:00)
[2017-12-27] MEDS: Clopidogrel Bisulfate 75 MG Tablet GT (08:43)
[2017-12-27] MEDS: Aspirin 81 MG TAB.CHEW GT (08:43)
[2017-12-27] MEDS: Famotidine 20 MG Tablet GT ×2 (08:43→23:08)
--- NOTE | 2017-12-27 09:41 | PCM.PN.CARD ---
Subjectve: Patient resting comfortably on the vent. Patient was supposed to have tracheostomy yesterday but apparently had desaturated immediately prior to the procedure and this was aborted. Patient is status post PEG tube and is infusing tube feeds without difficulty. PEEP is down to 10 cm of water. Patient is at least 6+ liters positive fluid balance over the last several days. CTA on 12/26/17 showed dense bilateral infiltrates, no pulmonary embolism. Objective: Vital Signs Temp Pulse Resp BP Pulse Ox 97 F L 75 14 102/57 L 97 12/27/17 08:45 12/27/17 09:17 12/27/17 09:17 12/27/17 09:17 12/27/17 09:17 Oxygen Flow Rate (L/min) 50 Oxygen Delivery Method Mechanical Ventilator Weight: 313 lb 7.957 oz Body Mass Index (BMI) 55.5 Finger Stick Blood Glucose 193 Intake and Output for Last 24 Hours 12/25/17 12/26/17 12/27/17 23:59 23:59 23:59 Intake Total 3232.2 / 3232.2 1533.7 / 1533.7 1473.4 / 1473.4 Output Total 2320 / 2320 1950 / 1950 550 / 550 Balance 912.2 / 912.2 -416.3 / -416.3 923.4 / 923.4 General: Awake, Alert, Oriented x 3 HEENT: PERRL, EOMI, Sclera Non Icteric Neck: Supple, Good ROM, No Lymph Node Enlargement Lungs: Clear to auscultation Cardiovascular: Regular Rhythm, Normal S1, Normal S2, No Murmurs, No Rubs, No Gallops Vascular: No Carotid Bruits, Normal Femoral Pulses, Normal Radial Pulses, Normal Dorsalis Pedal Pulse, Normal Posterior Tibial Pulses Abdomen: Bowel Sounds Present, Soft, Non Tender, No HSM, No Organomegaly Extremities: No Cyanosis, No Clubbing, No edema Neurological: No Focal Motor or Sensory Deficit 12/27/17 04:00: WBC 7.9, RBC 4.27 L, Hgb 12.0 L, Hct 40.0, MCV 93.7, MCH 28.1, MCHC 30.0 L, RDW 14.8 H, RDW Differential 49.2 H, Plt Count 143 L, MPV 12.0, Immature Gran % (Auto) 0.400, Neut % (Auto) 74.1 H, Lymph % (Auto) 17.6 L, [place] % (Auto) 7.7, Eos % (Auto) 0.1, Baso % (Auto) 0.1, Absolute Neuts (auto) 5.9, Total Counted Not Reportable 12/27/17 04:00: Sodium 150 H, Potassium 3.9, Chloride 111 H, Carbon Dioxide 32.0, Anion Gap 7, BUN 35 H, Creatinine 0.82, Est GFR (MDRD) Af Amer 123, Est GFR (MDRD) Non-Af 102, BUN/Creatinine Ratio 42.7 H, Glucose 136 H, Calcium 8.7 Rhythm: EKG: ECHO: Stress Test: Cardiac Cath: PCI: CT Surgery: Holter monitor: EPS: PPM: CXR: Chest CT Scan: Medical Necessity - Tobacco Use Smoking Status: Current every day smoker Assessment/Plan 1. Coronary artery disease: Patient has no significant troponin release despite having known coronary artery disease. He has a known occluded right coronary artery, with collateral from left to right, and is status post angioplasty and stenting to his LAD in 2012 and left circumflex in June 2017. Patient has had no malignant arrhythmias, and apparently presented with respiratory distress possibly due to pulmonary source of infection. He is being treated with broad-spectrum antibiotics and is on no pressor support at this time. Patient does have evidence of right-sided heart failure and unknown pulmonary pressures by echocardiogram on day of admission. His EF was estimated to be 60% although his imaging was technically difficult. I reviewed his echocardiogram again today, and suggest moderate global LV dysfunction with right ventricular enlargement. I spoke with the patient's power of newspaper correspondent several days ago, and explained the risks/benefits of the procedure of the left heart catheterization, coronary angiogram, angioplasty, and right heart catheterization, with specific attention to lack of on-site surgical backup, and the power of newspaper correspondent has given permission to move forward. His catheterization was put on hold today due to the patient's high risk O2 requirements. CTA showed no evidence of pulmonary embolism. CTA showed bilateral dense pulmonary infiltrates however. At this point, the patient is unable to wean off the ventilator, and desaturated at a low PEEP setting to 80% prior to his tracheostomy yesterday. The patient has had several inadvertent extubations and is been on the ventilator for almost 2 weeks. I would give serious consideration to repeat catheterization to ensure that his LAD and left circumflex stents are patent. I would not stop his dual antiplatelet therapy for his tracheostomy. If ENT and anesthesia do not feel comfortable proceeding with tracheostomy here, I would encourage transfer out to a tertiary care facility to do so before he develops tracheomalacia. Would recommend he continue his baby aspirin, Plavix, and hold his antihypertensives given his infection and hypotension. He has not required pressor agents at this time. Would also recommend increasing his Lasix to 40 mg IV twice daily as he is greater than 6.0 L positive over the last several days in order to correct his prerenal azotemia. He has had no decrease in his creatinine after his CTA and has had decent urine output since then. 2. Obstructive sleep apnea: The patient is evidence of pulmonary hypertension and right-sided heart failure most likely result of obstructive sleep apnea. He is on chronic O2 therapy at home as well. Patient may be preload dependent so if his blood pressure deteriorates with IV diuresis, he may require discontinuation of IV diuretic therapy. 3. Hyperlipidemia: Continue statin based medications. 4. Thank you very much for the opportunity to participate in the cardiac care of your patient. Will call Dr. Denny to confer. Code Visit Inpatient E&M: [id number] Subs Hosp L2
--- NOTE | 2017-12-27 09:47 | PN.CARD_ITS ---
Subjectve: Patient resting comfortably on the vent. Patient was supposed to have tracheostomy yesterday but apparently had desaturated immediately prior to the procedure and this was aborted. Patient is status post PEG tube and is infusing tube feeds without difficulty. PEEP is down to 10 cm of water. Patient is at least 6+ liters positive fluid balance over the last several days. CTA on 12/26/17 showed dense bilateral infiltrates, no pulmonary embolism. Objective: Vital Signs Temp Pulse Resp BP Pulse Ox 97 F L 75 14 102/57 L 97 12/27/17 08:45 12/27/17 09:17 12/27/17 09:17 12/27/17 09:17 12/27/17 09:17 Oxygen Flow Rate (L/min) 50 Oxygen Delivery Method Mechanical Ventilator Weight: 313 lb 7.957 oz Body Mass Index (BMI) 55.5 Finger Stick Blood Glucose 193 Intake and Output for Last 24 Hours 12/25/17 12/26/17 12/27/17 23:59 23:59 23:59 Intake Total 3232.2 / 3232.2 1533.7 / 1533.7 1473.4 / 1473.4 Output Total 2320 / 2320 1950 / 1950 550 / 550 Balance 912.2 / 912.2 -416.3 / -416.3 923.4 / 923.4 General: Awake, Alert, Oriented x 3 HEENT: PERRL, EOMI, Sclera Non Icteric Neck: Supple, Good ROM, No Lymph Node Enlargement Lungs: Clear to auscultation Cardiovascular: Regular Rhythm, Normal S1, Normal S2, No Murmurs, No Rubs, No Gallops Vascular: No Carotid Bruits, Normal Femoral Pulses, Normal Radial Pulses, Normal Dorsalis Pedal Pulse, Normal Posterior Tibial Pulses Abdomen: Bowel Sounds Present, Soft, Non Tender, No HSM, No Organomegaly Extremities: No Cyanosis, No Clubbing, No edema Neurological: No Focal Motor or Sensory Deficit 12/27/17 04:00: WBC 7.9, RBC 4.27 L, Hgb 12.0 L, Hct 40.0, MCV 93.7, MCH 28.1, MCHC 30.0 L, RDW 14.8 H, RDW Differential 49.2 H, Plt Count 143 L, MPV 12.0, Immature Gran % (Auto) 0.400, Neut % (Auto) 74.1 H, Lymph % (Auto) 17.6 L, [place] % (Auto) 7.7, Eos % (Auto) 0.1, Baso % (Auto) 0.1, Absolute Neuts (auto) 5.9, Total Counted Not Reportable 12/27/17 04:00: Sodium 150 H, Potassium 3.9, Chloride 111 H, Carbon Dioxide 32.0, Anion Gap 7, BUN 35 H, Creatinine 0.82, Est GFR (MDRD) Af Amer 123, Est GFR (MDRD) Non-Af 102, BUN/Creatinine Ratio 42.7 H, Glucose 136 H, Calcium 8.7 Rhythm: EKG: ECHO: Stress Test: Cardiac Cath: PCI: CT Surgery: Holter monitor: EPS: PPM: CXR: Chest CT Scan: Medical Necessity - Tobacco Use Smoking Status: Current every day smoker Assessment/Plan 1. Coronary artery disease: Patient has no significant troponin release despite having known coronary artery disease. He has a known occluded right coronary artery, with collateral from left to right, and is status post angioplasty and stenting to his LAD in 2012 and left circumflex in June 2017. Patient has had no malignant arrhythmias, and apparently presented with respiratory distress possibly due to pulmonary source of infection. He is being treated with broad- spectrum antibiotics and is on no pressor support at this time. Patient does have evidence of right-sided heart failure and unknown pulmonary pressures by echocardiogram on day of admission. His EF was estimated to be 60% although his imaging was technically difficult. I reviewed his echocardiogram again today, and suggest moderate global LV dysfunction with right ventricular enlargement. I spoke with the patient's power of real estate attorney several days ago, and explained the risks/benefits of the procedure of the left heart catheterization, coronary angiogram, angioplasty, and right heart catheterization, with specific attention to lack of on-site surgical backup, and the power of real estate attorney has given permission to move forward. His catheterization was put on hold today due to the patient's high risk O2 requirements. CTA showed no evidence of pulmonary embolism. CTA showed bilateral dense pulmonary infiltrates however. At this point, the patient is unable to wean off the ventilator, and desaturated at a low PEEP setting to 80% prior to his tracheostomy yesterday. The patient has had several inadvertent extubations and is been on the ventilator for almost 2 weeks. I would give serious consideration to repeat catheterization to ensure that his LAD and left circumflex stents are patent. I would not stop his dual a ntiplatelet therapy for his tracheostomy. If ENT and anesthesia do not feel comfortable proceeding with tracheostomy here, I would encourage transfer out to a tertiary care facility to do so before he develops tracheomalacia. Would recommend he continue his baby aspirin, Plavix, and hold his antihypertensives given his infection and hypotension. He has not required pressor agents at this time. Would also recommend increasing his Lasix to 40 mg IV twice daily as he is greater than 6.0 L positive over the last several days in order to correct his prerenal azotemia. He has had no decrease in his creatinine after his CTA and has had decent urine output since then. 2. Obstructive sleep apnea: The patient is evidence of pulmonary hypertension and right-sided heart failure most likely result of obstructive sleep apnea. He is on chronic O2 therapy at home as well. Patient may be preload dependent so if his blood pressure deteriorates with IV diuresis, he may require discontinuation of IV diuretic therapy. 3. Hyperlipidemia: Continue statin based medications. 4. Thank you very much for the opportunity to participate in the cardiac care of your patient. Will call Dr. Denny to confer. Code Visit Inpatient E&M: [id number] Subs Hosp L2
[2017-12-27] MEDS: levoFLOXacin 750 MG Tablet PO (11:08)
[2017-12-27] MEDS: Furosemide 40 MG/4 ML Vial IV ×2 (11:08→17:25)
[2017-12-27 12:56] LABS: Bedside Glucose 139 mg/dL (70-110)
--- NOTE | 2017-12-27 13:16 | CASEMGMT ---
Insurance Review for In-network facilities for [employer] if transfer is recommended is as follows: [facility], [facility], [facility], [facility], [facility], [facility], [facility], [facility]. Timi ARCEN RN CM
[2017-12-27] MEDS: metroNIDAZOLE 500 MG Tablet PO ×2 (15:39→23:08)
[2017-12-27] MEDS: Vital AF 1.2 Cal Liquid 1,000 ML 65 ML GT (15:40)
[2017-12-27] MEDS: Heparin Injection (Vial) 5,000 UNIT/ML VIAL 5000 UNIT SC ×2 (15:40→23:09)
[2017-12-27 17:36] LABS: Bedside Glucose 131 mg/dL (70-110)
[2017-12-27] MEDS: Atorvastatin Calcium 40 MG Tablet GT (23:09)
[2017-12-28] VITALS (46 sets, daily range): BP systolic 79–137; BP diastolic 41–102; PULSE 71–96; RESP 12–22; TEMP 36.3–37.3; O2SAT 87–99
[2017-12-28 00:51] LABS: Bedside Glucose 129 mg/dL (70-110)
[2017-12-28 04:36] LABS: Absolute Lymphocyte Count 1.87 X10^3/ul (0.83-4.51); Basophil# 0.01 X10^3/uL; Basophil% 0.1 % (0-1); Eosinophil# 0.11 X10^3/uL; Eosinophils% 1.3 % (0-5); Hematocrit 41.4 % (40-54); Hemoglobin 12.4 g/dl (13.0-16.5); Lymphocyte # 1.87 X10^3/ul (4.0); Lymphocyte % 21.9 % (19-41); Mean Corpuscular Hgb 27.6 pg (27.0-32.0); Mean Platelet Vol. 12.5 fl (6.2-12.0); Monocyte# 0.45 X10^3/uL; Monocyte% 5.3 % (0-10); Neutrophil # 6.03 X10^3/uL (2.7-7.7); Neutrophil % 70.8 % (47-70); Platelet Count 144 K/mm3 (150-450); RBC Distribution Width CV 14.9 % (11.6-14.6); RBC Distribution Width SD 48.7 fl (35.1-43.9); White Blood Count 8.5 K/mm3 (4.4-11.0)
[2017-12-28 04:39] LABS: POSITIVE COUNT NO; POSITIVE DIFFERENTIAL NO; POSITIVE MORPHOLOGY NO
[2017-12-28 04:45] LABS: Anion Gap 5 (5-15); BUN 30 mg/dL (7-18); BUN/Creat Ratio 42.8 RATIO (10-20); Calcium,Total 8.6 mg/dL (8.5-10.1); Chloride 109 mmol/L (98-107); EST Glomerular Filtration Rate 122 mL/min (>60); Est Glom Filt Rate - Afr Amer 148 mL/min (>60); Estimated Creatinine Clearance 109.93 ml/min; Glucose 79 mg/dL (74-106); Potassium 3.3 mmol/L (3.5-5.1); Sodium Level 150 mmol/L (136-145)
[2017-12-28] MEDS: Propofol 10MG/Ml 1,000 MG/100 ML Bottle 9.852 MG CONT INF (05:35)
[2017-12-28] MEDS: CHLORHEXIDINE GLUC 2% CLOTH 1 EACH TOWELETTE TOPICAL (06:04)
[2017-12-28] MEDS: Albuterol 2.5 MG/3 ML VIAL.NEB. INHALATION ×3 (07:03→18:29)
--- NOTE | 2017-12-28 07:10 | PN_ITS ---
Subjective: The patient was seen and examined at the bedside this morning. Events from the last 24 hours have been reviewed. The patient is currently afebrile, hemodynamically stable and maintaining appropriate oxygen saturations with an FiO2 requirement of 50%. There are tentative plans for the patient to undergo a cardiac catheterization today. He is also scheduled to have his tracheostomy placed Tuesday morning. The patient was overall net +537 mL's yesterday. He is now overall net -9.9 L for the admission. Sodium remains elevated and potassium is low 3.3. Creatinine remains stable. Objective: The patient's most recent lab work, culture data and imaging studies have all been personally reviewed. Respiratory viral panel was negative. Surface echocardiogram revealed normal LV size and function with an ejection fraction of 60%. Sputum culture dated December 13 revealed evidence of Streptococcus pneumoniae. Repeat sputum culture dated December 16 was positive for Klebsiella. CTA chest dated December 26 revealed no evidence for pulmonary embolism, but did demonstrate bilateral lower lobe infiltrates. General: Alert, Cooperative, No apparent distress, - - Remains intubated and minimally sedated. HEENT: Atraumatic, PERRLA, Normocephalic Oral: No Gingival or Mucosal Lesions/ Ulcerations, - - Endotracheal and OG tubes remain in place. Neck: Supple, No Nodes, Trachea Midline Lungs: No rhonchi, No wheeze, No rales, Diminished Cardiovascular: Regular rate, Regular Rhythm, Normal S1, Normal S2, No murmurs Abdomen: Bowel Sounds Present, Soft, Non Tender, - - PEG site remains C/D/I Extremities: No clubbing, No cyanosis, Edema - Trace Skin: - - No significant change from previous. Musculoskeletal: No Tenderness to Palpation of Joints or Extremities, No Muscle Wasting Lymphatic: No Cervical, Supraclavicular, or Inguinal Adenopathy Neurological: Neuro grossly intact Vital Signs Temp Pulse Resp BP Pulse Ox 37.3 C H 71 14 93/61 97 12/28/17 04:00 12/28/17 06:00 12/28/17 06:00 12/28/17 06:00 12/28/17 06:00 Oxygen Flow Rate (L/min) 50 Oxygen Delivery Method Mechanical Ventilator Weight: 309 lb 11.991 oz Body Mass Index (BMI) 55.5 Finger Stick Blood Glucose 193 Intake and Output for Last 24 Hours 11/12/27/17 12/28/17 23:59 23:59 23:59 Intake Total 1533.7 / 1533.7 2787.4 / 2787.4 869.1 / 869.1 Output Total 1949 / 1949 2250 / 2250 1350 / 1350 Balance -416.3 / -416.3 537.4 / 537.4 -480.9 / -480.9 Labs (Last 48 Hours) 12/26/17 12/26/17 12/26/17 12:17 18:35 22:57 WBC RBC Hgb Hct MCV MCH MCHC RDW RDW Differential Plt Count MPV Immature Gran % (Auto) Neut % (Auto) Lymph % (Auto) [place] % (Auto) Eos % (Auto) Baso % (Auto) Absolute Neuts (auto) Absolute Lymphs (auto) Total Counted Sodium Potassium Chloride Carbon Dioxide Anion Gap BUN Creatinine Estim Creat Clear Calc Est GFR (MDRD) Af Amer Est GFR (MDRD) Non-Af BUN/Creatinine Ratio Glucose Calcium POC Glucose 136 H 133 H 119 H 12/27/17 12/27/17 12/27/17 04:00 04:00 05:23 WBC 7.9 RBC 4.27 L Hgb 12.0 L Hct 40.0 MCV 93.7 MCH 28.1 MCHC 30.0 L RDW 14.8 H RDW Differential 49.2 H Plt Count 143 L MPV 12.0 Immature Gran % (Auto) 0.400 Neut % (Auto) 74.1 H Lymph % (Auto) 17.6 L [place] % (Auto) 7.7 Eos % (Auto) 0.1 Baso % (Auto) 0.1 Absolute Neuts (auto) 5.9 Absolute Lymphs (auto) 1.39 Total Counted Not Reportable Sodium 150 H Potassium 3.9 Chloride 111 H Carbon Dioxide 32.0 Anion Gap 7 BUN 35 H Creatinine 0.82 Estim Creat Clear Calc 93.84 Est GFR (MDRD) Af Amer 123 Est GFR (MDRD) Non-Af 102 BUN/Creatinine Ratio 42.7 H Glucose 136 H Calcium 8.7 POC Glucose 136 H 12/27/17 12/27/17 12/27/17 12:49 17:29 23:06 WBC RBC Hgb Hct MCV MCH MCHC RDW RDW Differential Plt Count MPV Immature Gran % (Auto) Neut % (Auto) Lymph % (Auto) [place] % (Auto) Eos % (Auto) Baso % (Auto) Absolute Neuts (auto) Absolute Lymphs (auto) Total Counted Sodium Potassium Chloride Carbon Dioxide Anion Gap BUN Creatinine Estim Creat Clear Calc Est GFR (MDRD) Af Amer Est GFR (MDRD) Non-Af BUN/Creatinine Ratio Glucose Calcium POC Glucose 139 H 131 H 129 H 12/28/17 12/28/17 04:25 04:25 WBC 8.5 RBC 4.50 L Hgb 12.4 L Hct 41.4 MCV 92.0 MCH 27.6 MCHC 30.0 L RDW 14.9 H RDW Differential 48.7 H Plt Count 144 L MPV 12.5 H Immature Gran % (Auto) 0.600 Neut % (Auto) 70.8 H Lymph % (Auto) 21.9 [place] % (Auto) 5.3 Eos % (Auto) 1.3 Baso % (Auto) 0.1 Absolute Neuts (auto) 6.0 Absolute Lymphs (auto) 1.87 Total Counted Not Reportable Sodium 150 H Potassium 3.3 L Chloride 109 H Carbon Dioxide 36.0 H Anion Gap 5 BUN 30 H Creatinine 0.70 Estim Creat Clear Calc 109.93 Est GFR (MDRD) Af Amer 148 Est GFR (MDRD) Non-Af 122 BUN/Creatinine Ratio 42.8 H Glucose 79 Calcium 8.6 POC Glucose Microbiology 12/23/17 08:30 Urine Catheter - Butler Urine Culture - Final Yeast, not Audra albicans Clinical Impression(s) from Imaging Studies Brain CT 12/12/17 07:34 IMPRESSION: No CT evidence of acute intracranial hemorrhage. Electronically Signed: Katya Wright MD at 8:54 EST , Service support , Chest X-Ray 12/12/17 07:40 IMPRESSION: Cardiomegaly and mild pulmonary congestion. Electronically Signed: Katya Wright MD at 8:02 EST , Service support , Chest X-Ray 12/15/17 06:34 IMPRESSION: All the support tubes are in good position. Residual increased markings in both lungs as described although there has been improvement as compared to prior study. Electronically Signed: Akhil Izquierdo MD at 11:07 EST Tel [phone], Service support , Chest X-Ray 12/16/17 12:08 IMPRESSION: Stable examination. Electronically Signed: Akhil Izquierdo MD at 12:39 EST Tel [phone], Service support , Chest X-Ray 12/19/17 07:17 IMPRESSION: Residual increased markings at the left lung base suggestive of atelectasis and/or infiltrate. The remainder of the examination is unremarkable. Electronically Signed: Akhil Izquierdo MD at 8:45 EST Tel [phone], Service support , Chest X-Ray 12/20/17 06:05 IMPRESSION: Stable position of the endotracheal tube and enterogastric tube. Progressive left lower lobe atelectasis and/or infiltrate. Electronically Signed: Akhil Izquierdo MD at 9:15 EST Tel [phone], Service support , Chest X-Ray 12/21/17 14:25 IMPRESSION: 1. Endotracheal tube tip is 5.5 cm above the byron. 2. Suboptimal ventilatory effort with stable platelike atelectasis at the left base and mild atelectasis on the right, as noted. Electronically Signed: Brayan Pretty MD at 15:36 EST , Service support , Chest X-Ray 12/21/17 15:00 IMPRESSION: Limited examination. The tip of the orogastric tube appears to be in the distal portion of the esophagus. Electronically Signed: Akhil Izquierdo MD at 15:49 EST Tel [phone], Service support , Chest X-Ray 12/22/17 06:00 IMPRESSION: Increased markings at the lung bases more prominent at the left lung base with blunting of left costophrenic angle. Mild increased markings in the right upper lobe. Follow-up is recommended. The tip of the endotracheal tube is at 5 cm proximal to the byron. Electronically Signed: Akhil Izquierdo MD at 9:46 EST Tel [phone], Service support , Chest X-Ray 12/22/17 11:01 IMPRESSION: 1. Nasogastric tube passes beneath the diaphragm, its tip outside the [id number]. 2. Endotracheal tube unchanged. 3. Improved atelectasis in the right base. Atelectasis on the left is unchanged. 4. Borderline cardiac enlargement. No CHF. Electronically Signed: Brayan Pretty MD at 12:14 EST , Service support , Chest X-Ray 12/22/17 18:29 IMPRESSION: Endotracheal tube ends 4 cm above the byron. Enteric tube is well below the gastroesophageal junction. Stable lung findings with 1 broad platelike area of atelectasis or infiltrate across the left lung base. Electronically Signed: Janessa Combs MD at 22:21 EST , Service support , KUB X-Ray 12/22/17 19:00 IMPRESSION: Orogastric tube placement with tip in gastric body Electronically Signed: Filemon Orona MD at 23:43 EST , Service support , Chest X-Ray 12/23/17 04:27 IMPRESSION: 1. Bilateral basilar airspace consolidation and atelectasis. 2. Right upper lobe subsegmental atelectasis. Electronically Signed: Katya Wright MD at 8:46 EST , Service support , Chest X-Ray 12/26/17 14:30 IMPRESSION: The tip of the tracheostomy is at 5.2 cm proximal to the byron. Alignment left basilar atelectasis with blunting of left costophrenic angle. Electronically Signed: Akhil Izquierdo MD at 15:10 EST Tel [phone], Service support , Chest CTA 12/26/17 15:01 IMPRESSION: Dense bilateral lower lobe infiltrates.. No evidence for pulmonary embolus ASHD. No evidence for aortic aneurysm Electronically Signed: Filemon Orona MD at 16:35 EST , Service support , Medical Necessity - Tobacco Use Smoking Status: Current every day smoker Assessment/Plan All Active Problems (Last Updated 12/25/17 @ 08:22 by Juan Manuel Subramanian DO) Aspiration pneumonia due to food (regurgitated) (Acute) Heart failure with preserved ejection fraction (Acute) GALILEA (acute kidney injury) (Acute) Klebsiella pneumonia (Acute) Acute respiratory failure with hypoxia and hypercapnia (Acute) Pneumococcal pneumonia (Acute) Metabolic encephalopathy (Resolved) Chest pain (Resolved) Respiratory failure, acute (Resolved) RECOMMENDATIONS: 1. Discussed case with ENT. Tentative plans for tracheostomy Tuesday morning. Tube feeds will need to be placed on hold midnight the night before. 2. Continue antibiotics to complete treatment course. 3. Continue bronchodilators. 4. Continue subcutaneous heparin and Pepcid for prophylaxis. 5. Continue tube feeds and free water flushes. 6. Continue prednisone 40 mg daily via G-tube with plans for prolonged taper. 7. Gentle diuresis per cardiology recommendations. IMPRESSIONS: 1. Acute on chronic combined respiratory failure Likely secondary to decompensated heart failure in the setting of medical noncompliance, with superimposed bronchospastic airway disease, ongoing tobacco dependence and aspiration pneumonia all contributing. The patient's hospital course to date has been complicated by 2 independent self extubations by the patient leading to aspiration of gastric contents. He remains on antibiotics accordingly. The patient has already undergone PEG tube placement and attempt was made on December 26 for tracheostomy placement. However, the patient desaturated in the OR leading to cancellation of the procedure. A follow-up CTA chest revealed no evidence for pulmonary embolism. The etiology for the patient's hypoxia was likely the consequence of alveolar derecruitment. Continue to wean FiO2 and PEEP as tolerated. Would plan to keep the patient's oxygen saturations 88-92%, to prevent paradoxical CO2 retention. Continue current sedation regimen as ordered. Tentative plans for tracheostomy placement Tuesday. 2. Metabolic encephalopathy Improved. Likely secondary to acute on chronic CO2 retention. Anticipate improvement with correction of the patient's underlying metabolic derangements. Minimize sedation as tolerated. 3. Decompensated heart failure/history of ischemic cardiomyopathy The patient's weight is significantly elevated when compared to that documented from November. The patient has been diuresed a great amount over his hospitalization. However, he has had a rising sodium level, for which his diuretic regimen has been augmented. In addition, the patient's tube feeds were transitioned to an alternative formula to increase the amount of free water in his diet. 4. Diabetes mellitus Continue Accu-Cheks and sliding scale insulin coverage. 5. Obstructive sleep apnea The patient has a history of outpatient noncompliance with the use of nocturnal Pap therapy. He only utilizes supplemental oxygen on a nightly basis. 6. Ongoing tobacco dependence/super morbid obesity/history of medical noncompliance/hypertension Complicates care, management, recovery and prognosis. Nicotine replacement therapy can be utilized while admitted to the hospital. TIME: 35 minutes of critical care time, independent of procedures, was spent addre ssing the patient's acute on chronic combined respiratory failure, metabolic encephalopathy, decompensated heart failure, obstructive sleep apnea, review of all data and collaboration with the care team. ([id number]) Code Visit 9xxxx: [id number] Critical care first hour
--- NOTE | 2017-12-28 07:28 | PN_ITS ---
Patient Problems: Active and Suspected Problems (Last Updated 12/25/17 @ 08:22 by Juan Manuel Subramanian DO) Aspiration pneumonia due to food (regurgitated) (Acute) Subjective: Patient is scheduled for cardiac cath in the morning. Still on ventilator. No fever. Vitals/I&O's: Vital Signs Temp Pulse Resp BP Pulse Ox 99.2 F H 71 14 93/61 97 12/28/17 04:00 12/28/17 06:00 12/28/17 06:00 12/28/17 06:00 12/28/17 06:00 Oxygen Flow Rate (L/min) 50 Oxygen Delivery Method Mechanical Ventilator Weight: 309 lb 11.991 oz Body Mass Index (BMI) 55.5 Finger Stick Blood Glucose 193 Intake and Output for Last 24 Hours 12/26/17 12/27/17 12/28/17 23:59 23:59 23:59 Intake Total 1533.7 / 1533.7 2787.4 / 2787.4 869.1 / 869.1 Output Total 1950 / 1950 2250 / 2250 1350 / 1350 Balance -416.3 / -416.3 537.4 / 537.4 -480.9 / -480.9 General: Lethargic, - - On IV propofol, sedated HEENT: Atraumatic, PERRLA, EOMI, Normocephalic Neck: Supple, No JVD, Negative Carotid Bruits Lungs: Diminished, Short of Breath, - - On vent support Cardiovascular: Regular rate, No murmurs Abdomen: Bowel Sounds Present, Soft, Non Tender, Non-Distended, - - Butler catheter Extremities: Capillary Refill Less than 3 Seconds, Edema Skin: No rashes, No breakdown Musculoskeletal: No Tenderness to Palpation of Joints or Extremities Neurological: Cranial nerves II-XII grossly intact Psych/Mental Status: Normal Affect, Appropriate Microbiology Past 72 Hours 12/23/17 08:30 Urine Catheter - Butler Urine Culture - Final Yeast, not Audra albicans 12/23/17 08:50 Blood Culture (Wb) - Right Wrist Blood Culture - Preliminary No growth in 48 hours. 12/23/17 08:40 Blood Culture (Wb) - Line Draw Blood Culture - Preliminary No growth in 48 hours. Laboratory Results 12/27/17 12:49: POC Glucose 139 H 12/27/17 17:29: POC Glucose 131 H 12/27/17 23:06: POC Glucose 129 H 12/28/17 04:25: WBC 8.5, RBC 4.50 L, Hgb 12.4 L, Hct 41.4, MCV 92.0, MCH 27.6, MCHC 30.0 L, RDW 14.9 H, RDW Differential 48.7 H, Plt Count 144 L, MPV 12.5 H, Immature Gran % (Auto) 0.600, Neut % (Auto) 70.8 H, Lymph % (Auto) 21.9, [place] % (Auto) 5.3, Eos % (Auto) 1.3, Baso % (Auto) 0.1, Absolute Neuts (auto) 6.0, Absolute Lymphs (auto) 1.87, Total Counted Not Reportable 12/28/17 04:25: Sodium 150 H, Potassium 3.3 L, Chloride 109 H, Carbon Dioxide 36.0 H, Anion Gap 5, BUN 30 H, Creatinine 0.70, Estim Creat Clear Calc 109.93, Est GFR (MDRD) Af Amer 148, Est GFR (MDRD) Non-Af 122, BUN/Creatinine Ratio 42.8 H, Glucose 79, Calcium 8.6 Current Medications Acetaminophen (Tylenol Liquid) 650 mg GT Q6H PRN PRN PRN Reason: FEVER Last Admin: 12/24/17 00:16 Dose: 650 mg Albuterol Sulfate (Ventolin Aerosols) 2.5 mg INHALATION Q6HWA.RT [facility] Last Admin: 12/28/17 07:03 Dose: 2.5 mg Aspirin (Aspirin, Baby) 81 mg GT DAILY [facility] Last Admin: 12/27/17 08:43 Dose: 81 mg Atorvastatin Calcium (Lipitor) 40 mg GT QHS [facility] Last Admin: 12/27/17 23:09 Dose: 40 mg Chlorhexidine Gluconate () 15 ml PO BID [facility] Last Admin: 12/27/17 22:00 Dose: 15 ml Chlorhexidine Gluconate () 1 each TOPICAL DAILY [facility] Last Admin: 12/28/17 06:04 Dose: 1 each Clopidogrel Bisulfate (Plavix) 75 mg GT DAILY [facility] Last Admin: 12/27/17 08:43 Dose: 75 mg Dextrose (D50w Syringe) 0 gm IV X1 PRN; Protocol PRN Reason: Hypoglycemia Diphenhydramine HCl (Benadryl) 50 mg PO X1 ONE Stop: 12/28/17 08:01 Famotidine (Pepcid) 20 mg GT BID [facility] Last Admin: 12/27/17 23:08 Dose: 20 mg Furosemide (Lasix) 40 mg IV BID@1000,1800 [facility] Last Admin: 12/27/17 17:25 Dose: 40 mg Glucagon () 1 mg IM .X1 PRN PRN Reason: Hypoglycemia Heparin Sodium (Porcine) (Heparin Na) 5,000 unit SC Q8 [facility] Last Admin: 12/28/17 06:03 Dose: Not Given Sodium Chloride () 250 mls @ 15 mls/hr IV .[id number] PRN PRN Reason: SALINE FLUSH Sodium Chloride () 250 mls @ 15 mls/hr IV .[id number] PRN PRN Reason: SALINE FLUSH Last Admin: 12/16/17 21:29 Dose: 15 mls/hr Propofol (Diprivan) 1,000 mg in 100 mls @ 9.852 mls/hr CONT INF .[id number] [facility] Last Admin: 12/28/17 05:35 Dose: 9.852 mls/hr Fentanyl () 100 mls @ 7.5 mls/hr IV .Q40H [facility] Last Admin: 12/27/17 08:41 Dose: 7.5 mls/hr Enteral Nutritional Formula (Vital Af 1.2 Jeremiah Liquid) 1,000 mls @ 65 mls/hr GT .[id number] [facility] Last Admin: 12/28/17 01:50 Dose: Not Given Sodium Chloride () 1,000 mls @ 0 mls/hr IV .Q0M [facility] Sodium Chloride () 1,000 mls @ 0 mls/hr IV .Q0M [facility] Insulin Glargine (Lantus (Bkc)) 35 units SC BID [facility] Last Admin: 12/27/17 23:10 Dose: 35 u Insulin Human Lispro (Humalog Kwikpen (Bk)) 0 unit SC Q6 [facility]; Protocol Last Admin: 12/28/17 06:03 Dose: Not Given Levofloxacin (Levaquin Tablet) 750 mg PO DAILY@0600 [facility] Last Admin: 12/28/17 06:04 Dose: Not Given Magnesium Hydroxide (Milk Of Magnesia) 30 ml PO DAILY PRN PRN PRN Reason: Constipation Metronidazole (Flagyl) 500 mg PO Q8 [facility] Stop: 12/28/17 22:01 Last Admin: 12/28/17 06:03 Dose: Not Given Polyethylene Glycol (Miralax) 17 gm GT DAILY PRN PRN PRN Reason: Constipation Potassium Bicarb/Potassium Chloride (Potassium Chl 25 Meq Eff (For Liquid)) 25 meq GT DAILY [facility] Last Admin: 12/27/17 08:44 Dose: 25 meq Prednisone () 40 mg GT DAILY@0800 [facility] Sodium Chloride () 5 - 30 ml IV UD PRN PRN Reason: SALINE FLUSH Last Admin: 12/27/17 15:46 Dose: 10 ml Medical Necessity - Tobacco Use Smoking Status: Current every day smoker Assessment/Plan All Active Problems (Last Updated 12/25/17 @ 08:22 by Juan Manuel Subramanian DO) Aspiration pneumonia due to food (regurgitated) (Acute) Heart failure with preserved ejection fraction (Acute) GALILEA (acute kidney injury) (Acute) Klebsiella pneumonia (Acute) Acute respiratory failure with hypoxia and hypercapnia (Acute) Pneumococcal pneumonia (Acute) Metabolic encephalopathy (Resolved) Chest pain (Resolved) Respiratory failure, acute (Resolved) This is a 57 gentleman with multiple comorbidities including chronic combined respiratory failure, obstructive sleep apnea, CAD with multiple stents, history of cardiac arrest [facility] for 5 days prior to admission. Initial chest x-ray showed pulmonary congestion. EKG in the ED shows sinus rhythm with diffuse T wave inversions and initial tro ponin 0.022. Patient was emergently intubated in ED and admitted to ICU for respiratory arrest. 1 acute on chronic hypoxic and hypercarbic combined respiratory failure: Currently patient is euvolemic. On patient is 50% FiO2. Ventilatory being managed by weatherization coordinator. Tracheostomy postponed to Tuesday. 2. Bilateral right lower lobe and left lower lobe Streptococcus pneumoniae and Klebsiella oxytoca pneumonia, right upper lobe subsegmental atelectasis: Patient on Levaquin since . Pulmonary tolerating. 3. Acute systolic and diastolic heart failure: Currently euvolemic (EF 25% by LV gram). EF 60% on echo 12/12 but echo was suboptimal. Lasix was started today with 40 mg IV twice daily. Patient also has moderate global LV dysfunction with right ventricular enlargement. The patient had right and left heart cath by Dr. Li on 12/28 with EF 25% by LV gram shows severe global LV systolic dysfunction, nonobstructive coronary artery has normal pulmonary hemodynamics parameter. Right-sided pressures normal. 4. Electrolyte imbalance: Hyponatremia, hypochloremia: Sodium 150, chloride 111, K3.9. Free water supplement. 5. Acute kidney injury: Currently creatinine 0.83, BUN 42. Estimated creatinine clearance 92. GALILEA resolved. 6. Fevers no fever since 12/25. Low-grade fever in the morning hours of 12/25, T-max 99.8. * BCx on 12/12 and 12/23 negative * TTE on the negative * UA negative x 3. urine culture of 12/12 no growth. Urine culture, preliminary from 12/23 shows yeastlike organism * Sputum culture positive of Streptococcus pneumoniae, Klebsiella oxytoca and y east. * * BCx negative on the and 7. Diabetes mellitus type 2: Blood sugar is reasonably controlled. Less than 200 mg/dL. Blood sugars are running lower side, 70 and 80 mg/dL on Accu-Cheks. Lantus decreased to 30 units subcu twice daily on Accu-Chek before meals and at bedtime covered with insulin lispro. 8. DVT prophylaxis: Heparin 5000 units every 8 hourly Discharge plan: Anticipate LTAC after tracheostomy Microbiology Past 72 Hours 12/23/17 08:30 Urine Catheter - Butler Urine Culture - Final Yeast, not Audra albicans 12/23/17 08:50 Blood Culture (Wb) - Right Wrist Blood Culture - Preliminary No growth in 48 hours. 12/23/17 08:40 Blood Culture (Wb) - Line Draw Blood Culture - Preliminary No growth in 48 hours. Laboratory Results 12/27/17 12:49: POC Glucose 139 H 12/27/17 17:29: POC Glucose 131 H 12/27/17 23:06: POC Glucose 129 H 12/28/17 04:25: WBC 8.5, RBC 4.50 L, Hgb 12.4 L, Hct 41.4, MCV 92.0, MCH 27.6, MCHC 30.0 L, RDW 14.9 H, RDW Differential 48.7 H, Plt Count 144 L, MPV 12.5 H, Immature Gran % (Auto) 0.600, Neut % (Auto) 70.8 H, Lymph % (Auto) 21.9, [place] % (Auto) 5.3, Eos % (Auto) 1.3, Baso % (Auto) 0.1, Absolute Neuts (auto) 6.0, Absolute Lymphs (auto) 1.87, Total Counted Not Reportable 12/28/17 04:25: Sodium 150 H, Potassium 3.3 L, Chloride 109 H, Carbon Dioxide 36.0 H, Anion Gap 5, BUN 30 H, Creatinine 0.70, Estim Creat Clear Calc 109.93, Est GFR (MDRD) Af Amer 148, Est GFR (MDRD) Non-Af 122, BUN/Creatinine Ratio 42.8 H, Glucose 79, Calcium 8.6 Code Visit Inpatient E&M: 46742 Subs Hosp L3
[2017-12-28] MEDS: DiphenhydrAMINE 25 MG Capsule 50 MG PO (07:39)
[2017-12-28] MEDS: Aspirin 81 MG TAB.CHEW GT (07:39)
[2017-12-28] MEDS: Clopidogrel Bisulfate 75 MG Tablet GT (07:39)
--- NOTE | 2017-12-28 07:49 | NURSING ---
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
[2017-12-28 08:46] LABS: Bedside Glucose 80 mg/dL (70-110)
[2017-12-28 09:06] LABS: Blood Gas Specimen Type VEN; VBG BASE EXCESS 10 mmol/L (-1.0-3.5); VBG Bicarbonate 34 mmol/L (22-26); VBG Oxygen Content 36 mmol/L (23-33); VBG PO2 31 mmHg (25-40); VBG SO2 62 % (50-70); VBG pCO2 49.1 mmHg (41-51); VBG pH 7.45 (7.32-7.42)
[2017-12-28 09:06] LABS: Base Excess 10 mmol/L (-2 to +2); Bicarbonate 33.6 mmol/L (22-26); Blood Gas Specimen Type ART; PO2 58 mmHG (75-100); SO2 91 % (95-99); Total Carbon Dioxide 35 mmol/L; pCO2 46.9 mmHg (35-45); pH 7.46 (7.35-7.45)
[2017-12-28 09:06] LABS: Blood Gas Specimen Type VEN; VBG BASE EXCESS 11 mmol/L (-1.0-3.5); VBG Bicarbonate 35 mmol/L (22-26); VBG Oxygen Content 36 mmol/L (23-33); VBG PO2 33 mmHg (25-40); VBG SO2 65 % (50-70); VBG pCO2 49.8 mmHg (41-51); VBG pH 7.45 (7.32-7.42)
--- NOTE | 2017-12-28 09:18 | CL.D_ITS ---
Patient Name: MANGO THOMAS Study Date: 12/28/2017 Performing: Robert Li MD Ht: 68.89 inches 175 cm : 1960 Wt: 310.85 lbs 141 kg Age: 57 Gender: male BSA: 2.49 PROCEDURE(S) PERFORMED FR83-ZOT/LHC/COR/LV CLINICAL PROFILE AND INDICATIONS Indications: Stable Known CAD, Cardiomyopathy, LV Dysfunction, Pre-Operative Evaluation Heart Failure: NYHA Class: 3, Newly Diagnosed: No, Heart Failure Type: Systolic Stress/Imaging Stress/Image Study Performed: No Angina Classification Anginal Classification w/in 2 Weeks: CCS IV CAD Presentations: Other: CHF exacerbation, intubation, need for tracheostomy Comorbidities/Risk Factors: Hypertension Dyslipidemia Prior CHF Prior PCI CONCLUSIONS Global LV systolic dysfunction- Severe Non obstructive coronary arteries The patient has normal pulmonary hemodynamics. Right heart pressures - Normal RECOMMENDATIONS Recommend proceeding with tracheostomy gabriela. Pt is at moderate risk for non cardiac surgery. would not pursue PCI of proximal Ramus at this time. Management as per referring Primary Care Nurse Practitioner d/w Dr Denny. DESCRIPTION OF PROCEDURE The patient arrived to the procedure lab. The risks and benefits of the procedure as well as a full d escription of our services here and current unavailability of surgical backup were fully explained to the patient and/or their significant other prior to the catheterization. The Timeout was completed, verifying the correct patient and procedure. The patient's procedural site was prepped and draped in the usual fashion. Local anesthetic was given subcutaneously to right groin region with Lidocaine 2%. Using a modified Seldinger technique, arterial access was obtained via the right femoral artery, a 4 Fr sheath was inserted Venous access was obtained via the right femoral vein, a 7Fr sheath was insert ed. A 7Fr thermal dilution catheter was inserted and right heart pressures were recorded, it was then advanced to PA position for cardiac outputs. Thermal dilution cardiac outputs were then recorded. O2 saturations were then obtained. The Thermal dilution catheter was then removed. Simultaneous pressures were then recorded. Left Ventriculography was performed in DOE projection usin g a 4 Fr. Pigtail catheter. LV to AO pullback pressures were then recorded. Left Coronary Artery michelle ctive angiography was performed in multiple views using a 4 Fr. JL5 catheter. Right Coronary Artery s elective angiography was then performed in multiple views using a 4 Fr. 3DRC catheter.The arterial sh eath was pulled and manual compression applied until hemostasis is achieved.. The venous sheath was t hen pulled and manual compression applied until hemostasis achieved CORONARY ANGIOGRAPHY DOMINANCE: Left Dominant LEFT HEART ASSESSMENT Left Ventricular Ejection Fraction: by LV Gram 25 % Global Hypokinesis - Severe Depressed Left Ventricular systolic function LVEDP: 9 mmHg RIGHT HEART ASSESSMENT Thermal CO: 6.81 Thermal CI: 2.73 Ale CO: 7.01 Ale CI: 2.82 PW: 12/18 9 PA: 34/14 22 RV: 37/4 7 RA: 01/16 7 PVR: 153 SVR: 869 LEFT MAIN: Angiographically normal LEFT ANTERIOR DECENDING ARTERY: PROX LAD: Previously placed stent is patent CIRCUMFLEX ARTERY: MID CIRC: Previously placed stent is patent DISTAL CIRC: 70 % Stenosis RAMUS: 75 prox, too small for appreciable improvement in LV function. % Stenosis RIGHT CORONARY ARTERY: is occluded COMPLICATIONS No Complications PROCEDURE MEDICATIONS Oxygen: 50 % FiO2 via ventilator. See Resp Record for Settings SUMMARY OF HEMODYNAMIC DATA Time AIR REST ECG 08:10:50 RA 01/16 (7) SV 08:38:23 RV 37/4, 7 08:38:39 PW 12/18 (9) PV 08:39:24 PA 34/14 (22) PA 08:39:40 LV 111/-9, 6 08:44:22 LV 109/-8, 9 08:44:29 LV 114/-8, 7 08:44:57 PW 11/16 (9) 08:44:57 LV 111/-8, 8 08:45:00 PW 10/17 (9) 08:45:00 LV 109/-8, 7 08:45:23 RV 34/4, 8 08:45:23 LV 107/-7, 7 08:45:36 RV 36/3, 8 08:45:36 LV 112/-5, 12 08:47:27 LVp 112/-6, 8 08:47:32 AOp 111/63 (82) 08:47:37 AO 108/63 (81) SA 08:49:19 Type SV CO (l/m) CI (l/m/ HR Time AIR REST Thermal 93.30 6.81 2.73 73 08:10:50 Ale 96.00 7.01 2.82 73 08:10:50 Label % O2 Pres/Loc Time AIR REST PA 63 PA 08:53:11 AO 91 PV 08:53:17 Signed By Robert Li MD On 12/28/2017 09:17:18 Robert Li MD
[2017-12-28] MEDS: predniSONE 20 MG Tablet 40 MG GT (11:27)
[2017-12-28] MEDS: Furosemide 40 MG/4 ML Vial IV ×2 (11:27→17:51)
[2017-12-28] MEDS: Chlorhexidine 15 ML PO ×2 (11:27→21:53)
[2017-12-28] MEDS: Famotidine 20 MG Tablet GT ×2 (11:28→21:54)
[2017-12-28 11:50] LABS: Bedside Glucose 58 mg/dL (70-110)
[2017-12-28 11:50] LABS: Bedside Glucose 70 mg/dL (70-110)
[2017-12-28] MEDS: fentaNYL drip 100 ML 7.5 MCG IV (12:39)
--- NOTE | 2017-12-28 13:00 | PCM.PN.HOSP ---
Patient Problems: Active and Suspected Problems (Last Updated 12/25/17 @ 08:22 by Juan Manuel Subramanian DO) Aspiration pneumonia due to food (regurgitated) (Acute) Subjective: Please consider this as a back note from 12/28/2017. Patient was seen and examined in the morning on that day. Anyhow that note from yesterday got deleted from the system. Patient was taken for cardiac cath in the morning by Dr. Li. Patient had cardiac cath. Patient did not had fever the last 48 hours. Still on ventilator 50% FiO2 at PEEP of 10. Vitals/I&O's: Vital Signs Temp Pulse Resp BP Pulse Ox 97.6 F L 72 14 99/52 L 99 12/29/17 06:00 12/29/17 06:39 12/29/17 06:39 12/29/17 06:00 12/29/17 06:39 Oxygen Flow Rate (L/min) 50 Oxygen Delivery Method Mechanical Ventilator Weight: 306 lb 7.08 oz Body Mass Index (BMI) 55.5 Finger Stick Blood Glucose 193 Intake and Output for Last 24 Hours 12/27/17 12/28/17 12/29/17 23:59 23:59 23:59 Intake Total 2787.4 / 2787.4 2100.1 / 2100.1 282 / 282 Output Total 2250 / 2250 3275 / 3275 200 / 200 Balance 537.4 / 537.4 -1174.9 / -1174.9 82 / 82 General: - - Mildly sedated. On propofol drip HEENT: Atraumatic, PERRLA, EOMI, Normocephalic Neck: Supple, No JVD, Negative Carotid Bruits Lungs: Clear to auscultation, Normal air movement Cardiovascular: Regular rate, Normal S1, Normal S2, No murmurs Abdomen: Bowel Sounds Present, Soft, Non Tender, Non-Distended Extremities: No edema, Capillary Refill Less than 3 Seconds Skin: No rashes, No breakdown Musculoskeletal: No Tenderness to Palpation of Joints or Extremities, Arthritic Changes, Muscle Wasting Neurological: Cranial nerves II-XII grossly intact Psych/Mental Status: Normal Affect, Appropriate Microbiology Past 72 Hours 12/23/17 08:50 Blood Culture (Wb) - Right Wrist Blood Culture - Final No growth in 5 days. 12/23/17 08:40 Blood Culture (Wb) - Line Draw Blood Culture - Final No growth in 5 days. 12/23/17 08:30 Urine Catheter - Butler Urine Culture - Final Yeast, not Audra albicans Laboratory Results 12/28/17 05:25: POC Glucose 80 12/28/17 08:44: Specimen Type JAYLENE, VBG pH 7.45 H, VBG pO2 33, VBG O2 Sat (Calc) 65, VBG O2 Content 36 H, VBG Base Excess 11 H, POC Mix VBG pCO2 Pt Tmp 49.8 12/28/17 08:47: Specimen Type JAYLENE, VBG pH 7.45 H, VBG pO2 31, VBG O2 Sat (Calc) 62, VBG O2 Content 36 H, VBG Base Excess 10 H, POC Mix VBG pCO2 Pt Tmp 49.1 12/28/17 08:50: Specimen Type ART, pH 7.46 H, Bicarbonate Actual 33.6 H, POC Total CO2 35, Base Excess 10 H, O2 Saturation 91 L, ABG pCO2 46.9 H, ABG pO2 58 L 12/28/17 11:22: POC Glucose 58 L 12/28/17 11:45: POC Glucose 70 12/28/17 17:48: POC Glucose 178 H 12/28/17 22:51: POC Glucose 183 H 12/29/17 06:15: POC Glucose 171 H 12/29/17 07:00: Sodium 146 H, Potassium 3.6, Chloride 108 H, Carbon Dioxide 34.0 H, Anion Gap 4 L, BUN 33 H, Creatinine 0.75, Estim Creat Clear Calc 102.60, Est GFR (MDRD) Af Amer 137, Est GFR (MDRD) Non-Af 113, BUN/Creatinine Ratio 44.0 H, Glucose 157 H, Calcium 8.7 Current Medications Acetaminophen (Tylenol Liquid) 650 mg GT Q6H PRN PRN PRN Reason: FEVER Last Admin: 12/24/17 00:16 Dose: 650 mg Albuterol Sulfate (Ventolin Aerosols) 2.5 mg INHALATION Q6HWA.RT [facility] Last Admin: 12/29/17 06:38 Dose: 2.5 mg Aspirin (Aspirin, Baby) 81 mg GT DAILY [facility] Last Admin: 12/28/17 07:39 Dose: 81 mg Atorvastatin Calcium (Lipitor) 40 mg GT QHS [facility] Last Admin: 12/28/17 21:55 Dose: 40 mg Chlorhexidine Gluconate () 15 ml PO BID [facility] Last Admin: 12/28/17 21:53 Dose: 15 ml Chlorhexidine Gluconate () 1 each TOPICAL DAILY [facility] Last Admin: 12/28/17 06:04 Dose: 1 each Clopidogrel Bisulfate (Plavix) 75 mg GT DAILY [facility] Last Admin: 12/28/17 07:39 Dose: 75 mg Dextrose (D50w Syringe) 0 gm IV X1 PRN; Protocol PRN Reason: Hypoglycemia Famotidine (Pepcid) 20 mg GT BID [facility] Last Admin: 12/28/17 21:54 Dose: 20 mg Furosemide (Lasix) 40 mg IV BID@1000,1800 [facility] Last Admin: 12/28/17 17:51 Dose: 40 mg Glucagon () 1 mg IM .X1 PRN PRN Reason: Hypoglycemia Heparin Sodium (Beef Lung) (Heparin 500 Unit/5 Ml (100/Ml)) 500 unit IV UD PRN PRN Reason: HEPARIN FLUSH Heparin Sodium (Porcine) (Heparin Na) 5,000 unit SC Q8 [facility] Last Admin: 12/29/17 06:20 Dose: 5,000 unit Sodium Chloride () 250 mls @ 15 mls/hr IV .[id number] PRN PRN Reason: SALINE FLUSH Sodium Chloride () 250 mls @ 15 mls/hr IV .[id number] PRN PRN Reason: SALINE FLUSH Last Admin: 12/16/17 21:29 Dose: 15 mls/hr Propofol (Diprivan) 1,000 mg in 100 mls @ 9.852 mls/hr CONT INF .[id number] [facility] Last Admin: 12/29/17 06:41 Dose: Not Given Fentanyl () 100 mls @ 7.5 mls/hr IV .Q40H [facility] Last Admin: 12/28/17 12:39 Dose: 7.5 mls/hr Enteral Nutritional Formula (Vital Af 1.2 Jeremiah Liquid) 1,000 mls @ 65 mls/hr GT .[id number] [facility] Last Admin: 12/28/17 17:52 Dose: Not Given Sodium Chloride () 1,000 mls @ 0 mls/hr IV .Q0M [facility] Sodium Chloride () 1,000 mls @ 0 mls/hr IV .Q0M [facility] Insulin Glargine (Lantus (Bkc)) 30 units SC BID [facility] Last Admin: 12/28/17 22:55 Dose: 30 units Insulin Human Lispro (Humalog Kwikpen (Bk)) 0 unit SC Q6 [facility]; Protocol Last Admin: 12/29/17 06:20 Dose: 3 u Labetalol HCl (Trandate) 5 mg IV X1 PRN PRN Reason: SBP > 160 prior to sheath pull Stop: 12/30/17 09:07 Levofloxacin (Levaquin Tablet) 750 mg PO DAILY@0600 [facility] Last Admin: 12/29/17 06:53 Dose: 750 mg Magnesium Hydroxide (Milk Of Magnesia) 30 ml PO DAILY PRN PRN PRN Reason: Constipation Polyethylene Glycol (Miralax) 17 gm GT DAILY PRN PRN PRN Reason: Constipation Potassium Bicarb/Potassium Chloride (Potassium Chl 25 Meq Eff (For Liquid)) 25 meq GT DAILY [facility] Last Admin: 12/28/17 11:28 Dose: 25 meq Prednisone () 40 mg GT DAILY@0800 [facility] Last Admin: 12/28/17 11:27 Dose: 40 mg Sodium Chloride () 5 - 30 ml IV UD PRN PRN Reason: SALINE FLUSH Last Admin: 12/29/17 06:57 Dose: 10 ml Medical Necessity - Tobacco Use Smoking Status: Current every day smoker Assessment/Plan All Active Problems (Last Updated 12/25/17 @ 08:22 by Juan Manuel Subramanian DO) Aspiration pneumonia due to food (regurgitated) (Acute) Heart failure with preserved ejection fraction (Acute) GALILEA (acute kidney injury) (Acute) Klebsiella pneumonia (Acute) Acute respiratory failure with hypoxia and hypercapnia (Acute) Pneumococcal pneumonia (Acute) Metabolic encephalopathy (Resolved) Chest pain (Resolved) Respiratory failure, acute (Resolved) This is a 57 gentleman with multiple comorbidities including chronic combined respiratory failure, obstructive sleep apnea, CAD with multiple stents, history of cardiac arrest was admitted from custodial for shortness of breath for 5 days prior to admission. Initial chest x-ray showed pulmonary congestion. EKG in the ED shows sinus rhythm with diffuse T wave inversions and initial troponin 0.022. Patient was emergently intubated in ED and admitted to ICU for respiratory arrest. 1 acute on chronic hypoxic and hypercarbic combined respiratory failure: Currently patient is euvolemic. On patient is 50% FiO2. Ventilatory being managed by auto radiator mechanic. Tracheostomy postponed to Tuesday. 2. Bilateral right lower lobe and left lower lobe Streptococcus pneumoniae and Klebsiella oxytoca pneumonia, right upper lobe subsegmental atelectasis: Patient on Levaquin since . Pulmonary tolerating. 3. Acute systolic and diastolic heart failure: Currently euvolemic (EF 25% by LV gram). EF 60% on echo 12/12 but echo was suboptimal. Lasix 40 mg IV twice daily. Patient also has moderate global LV dysfunction with right ventricular enlargement. The patient had right and left heart cath by Dr. Li on 12/28 with EF 25% by LV gram shows severe global LV systolic dysfunction, nonobstructive coronary artery has normal pulmonary hemodynamics parameter. Right-sided pressures normal. 4. Electrolyte imbalance: Hyponatremia, hypochloremia: Sodium 150, chloride 111, K3.9. Free water supplement. 5. Acute kidney injury: Currently creatinine 0.83, BUN 42. Estimated creatinine clearance 92. GALILEA resolved. 6. Fevers no fever since 12/25. Low-grade fever in the morning hours of 12/25, T-max 99.8. BCx on 12/12 and 12/23 negative TTE on the negative UA negative x 3. urine culture of 12/12 no growth. Urine culture, preliminary from 12/23 shows yeastlike organism Sputum culture positive of Streptococcus pneumoniae, Klebsiella oxytoca and yeast. BCx negative on the and 7. Diabetes mellitus type 2: Blood sugar is reasonably controlled. Less than 200 mg/dL. Blood sugars are running lower side, 70 and 80 mg/dL on Accu-Cheks. Lantus decreased to 30 units subcu twice daily on Accu-Chek before meals and at bedtime covered with insulin lispro. 8. DVT prophylaxis: Heparin 5000 units every 8 hourly Discharge plan: Anticipate LTAC after tracheostomy Microbiology Past 72 Hours 12/23/17 08:30 Urine Catheter - Butler Urine Culture - Final Yeast, not Audra albicans 12/23/17 08:50 Blood Culture (Wb) - Right Wrist Blood Culture - Preliminary No growth in 48 hours. 12/23/17 08:40 Blood Culture (Wb) - Line Draw Blood Culture - Preliminary No growth in 48 hours. Laboratory Results 12/27/17 12:49: POC Glucose 139 H 12/27/17 17:29: POC Glucose 131 H 12/27/17 23:06: POC Glucose 129 H 12/28/17 04:25: WBC 8.5, RBC 4.50 L, Hgb 12.4 L, Hct 41.4, MCV 92.0, MCH 27.6, MCHC 30.0 L, RDW 14.9 H, RDW Differential 48.7 H, Plt Count 144 L, MPV 12.5 H, Immature Gran % (Auto) 0.600, Neut % (Auto) 70.8 H, Lymph % (Auto) 21.9, [place] % (Auto) 5.3, Eos % (Auto) 1.3, Baso % (Auto) 0.1, Absolute Neuts (auto) 6.0, Absolute Lymphs (auto) 1.87, Total Counted Not Reportable 12/28/17 04:25: Sodium 150 H, Potassium 3.3 L, Chloride 109 H, Carbon Dioxide 36.0 H, Anion Gap 5, BUN 30 H, Creatinine 0.70, Estim Creat Clear Calc 109.93, Est GFR (MDRD) Af Amer 148, Est GFR (MDRD) Non-Af 122, BUN/Creatinine Ratio 42.8 H, Glucose 79, Calcium 8.6 Code Visit Inpatient E&M: 43714 Subs Hosp L3
--- NOTE | 2017-12-28 13:45 | CASEMGMT ---
CECIL BERMUDEZ NOTE: Call received from Cheli @ [facility]. Updated that pt does not have trach yet and plans are for it to be placed on Tuesday. Trach information to be faxed to [facility] once it is placed so prior auth can be started. [facility]: PH: [phone] Timi ALAN RN CM
[2017-12-28] MEDS: metroNIDAZOLE 500 MG Tablet PO ×2 (13:54→21:54)
[2017-12-28] MEDS: Heparin Injection (Vial) 5,000 UNIT/ML VIAL 5000 UNIT SC ×2 (13:54→21:54)
[2017-12-28] MEDS: Insulin Lispro 100 UNIT/ML INSULN.PEN SC ×2 (17:51→23:00)
[2017-12-28] MEDS: 0.9% NaCl Peripheral Flush Adult/Peds IV ×2 (17:51→19:44)
[2017-12-28 18:06] LABS: Bedside Glucose 178 mg/dL (70-110)
[2017-12-28] MEDS: Atorvastatin Calcium 40 MG Tablet GT (21:55)
[2017-12-28 22:55] LABS: Bedside Glucose 183 mg/dL (70-110)
[2017-12-29] VITALS (35 sets, daily range): BP systolic 86–114; BP diastolic 52–70; PULSE 72–87; RESP 14–19; TEMP 36.4–36.8; O2SAT 90–100
[2017-12-29] MEDS: Propofol 10MG/Ml 1,000 MG/100 ML Bottle 9.852 MG CONT INF ×2 (01:05→13:27)
[2017-12-29] MEDS: Heparin Injection (Vial) 5,000 UNIT/ML VIAL 5000 UNIT SC ×3 (06:20→22:04)
[2017-12-29] MEDS: Insulin Lispro 100 UNIT/ML INSULN.PEN SC ×4 (06:20→23:00)
[2017-12-29 06:30] LABS: Bedside Glucose 171 mg/dL (70-110)
[2017-12-29] MEDS: Albuterol 2.5 MG/3 ML VIAL.NEB. INHALATION ×3 (06:38→19:18)
[2017-12-29] MEDS: levoFLOXacin 750 MG Tablet PO (06:53)
[2017-12-29] MEDS: 0.9% NaCl Peripheral Flush Adult/Peds IV ×3 (06:57→17:12)
--- NOTE | 2017-12-29 07:00 | PCM.PN.INT ---
Subjective: The patient was seen and examined at the bedside this morning. Events from the last 24 hours have been reviewed. The patient is currently afebrile, hemodynamically stable and maintaining appropriate oxygen saturations with an FiO2 requirement of 50%. The patient was overall net -1.1 L yesterday. He is now overall net -10.5 L for the admission. No significant issues were noted by the overnight nursing staff. Objective: The patient's most recent lab work, culture data and imaging studies have all been personally reviewed. Respiratory viral panel was negative. Surface echocardiogram revealed normal LV size and function with an ejection fraction of 60%. Sputum culture dated December 13 revealed evidence of Streptococcus pneumoniae. Repeat sputum culture dated December 16 was positive for Klebsiella. CTA chest dated December 26 revealed no evidence for pulmonary embolism, but did demonstrate bilateral lower lobe infiltrates. General: Alert, Cooperative, No apparent distress, - - Remains intubated and mechanically ventilated. HEENT: Atraumatic, PERRLA, Normocephalic Oral: Moist Mucosa, - - Endotracheal and OG tubes remain in place. Neck: Supple, No Nodes Lungs: No rhonchi, No wheeze, No rales, Diminished Cardiovascular: Regular rate, Regular Rhythm, Normal S1, Normal S2, No murmurs Abdomen: Bowel Sounds Present, Soft, Non Tender, Obese, - - PEG site is C/D/I Extremities: No clubbing, No cyanosis, Edema - Trace Skin: - - No significant change from previous. Musculoskeletal: No Muscle Wasting Lymphatic: No Cervical, Supraclavicular, or Inguinal Adenopathy Neurological: Neuro grossly intact Vital Signs Temp Pulse Resp BP Pulse Ox 36.4 C L 72 14 99/52 L 99 12/29/17 06:00 12/29/17 06:39 12/29/17 06:39 12/29/17 06:00 12/29/17 06:39 Oxygen Flow Rate (L/min) 50 Oxygen Delivery Method Mechanical Ventilator Weight: 306 lb 7.08 oz Body Mass Index (BMI) 55.5 Finger Stick Blood Glucose 193 Intake and Output for Last 24 Hours 12/27/17 12/28/17 12/29/17 23:59 23:59 23:59 Intake Total 2787.4 / 2787.4 2100.1 / 2100.1 282 / 282 Output Total 2250 / 2250 3275 / 3275 200 / 200 Balance 537.4 / 537.4 -1174.9 / -1174.9 82 / 82 Labs (Last 48 Hours) 12/27/17 12/27/17 12/27/17 12:49 17:29 23:06 WBC RBC Hgb Hct MCV MCH MCHC RDW RDW Differential Plt Count MPV Immature Gran % (Auto) Neut % (Auto) Lymph % (Auto) [place] % (Auto) Eos % (Auto) Baso % (Auto) Absolute Neuts (auto) Absolute Lymphs (auto) Total Counted Specimen Type pH Bicarbonate Actual POC Total CO2 Base Excess O2 Saturation ABG pCO2 ABG pO2 VBG pH VBG pO2 VBG O2 Sat (Calc) VBG O2 Content VBG Base Excess POC Mix VBG pCO2 Pt Tmp Sodium Potassium Chloride Carbon Dioxide Anion Gap BUN Creatinine Estim Creat Clear Calc Est GFR (MDRD) Af Amer Est GFR (MDRD) Non-Af BUN/Creatinine Ratio Glucose Calcium POC Glucose 139 H 131 H 129 H 12/28/17 12/28/17 12/28/17 04:25 04:25 05:25 WBC 8.5 RBC 4.50 L Hgb 12.4 L Hct 41.4 MCV 92.0 MCH 27.6 MCHC 30.0 L RDW 14.9 H RDW Differential 48.7 H Plt Count 144 L MPV 12.5 H Immature Gran % (Auto) 0.600 Neut % (Auto) 70.8 H Lymph % (Auto) 21.9 [place] % (Auto) 5.3 Eos % (Auto) 1.3 Baso % (Auto) 0.1 Absolute Neuts (auto) 6.0 Absolute Lymphs (auto) 1.87 Total Counted Not Reportable Specimen Type pH Bicarbonate Actual POC Total CO2 Base Excess O2 Saturation ABG pCO2 ABG pO2 VBG pH VBG pO2 VBG O2 Sat (Calc) VBG O2 Content VBG Base Excess POC Mix VBG pCO2 Pt Tmp Sodium 150 H Potassium 3.3 L Chloride 109 H Carbon Dioxide 36.0 H Anion Gap 5 BUN 30 H Creatinine 0.70 Estim Creat Clear Calc 109.93 Est GFR (MDRD) Af Amer 148 Est GFR (MDRD) Non-Af 122 BUN/Creatinine Ratio 42.8 H Glucose 79 Calcium 8.6 POC Glucose 80 12/28/17 12/28/17 12/28/17 08:44 08:47 08:50 WBC RBC Hgb Hct MCV MCH MCHC RDW RDW Differential Plt Count MPV Immature Gran % (Auto) Neut % (Auto) Lymph % (Auto) [place] % (Auto) Eos % (Auto) Baso % (Auto) Absolute Neuts (auto) Absolute Lymphs (auto) Total Counted Specimen Type JAYLENE JAYLENE ART pH 7.46 H Bicarbonate Actual 33.6 H POC Total CO2 35 Base Excess 10 H O2 Saturation 91 L ABG pCO2 46.9 H ABG pO2 58 L VBG pH 7.45 H 7.45 H VBG pO2 33 31 VBG O2 Sat (Calc) 65 62 VBG O2 Content 36 H 36 H VBG Base Excess 11 H 10 H POC Mix VBG pCO2 Pt Tmp 49.8 49.1 Sodium Potassium Chloride Carbon Dioxide Anion Gap BUN Creatinine Estim Creat Clear Calc Est GFR (MDRD) Af Amer Est GFR (MDRD) Non-Af BUN/Creatinine Ratio Glucose Calcium POC Glucose 12/28/17 12/28/17 12/28/17 11:22 11:45 17:48 WBC RBC Hgb Hct MCV MCH MCHC RDW RDW Differential Plt Count MPV Immature Gran % (Auto) Neut % (Auto) Lymph % (Auto) [place] % (Auto) Eos % (Auto) Baso % (Auto) Absolute Neuts (auto) Absolute Lymphs (auto) Total Counted Specimen Type pH Bicarbonate Actual POC Total CO2 Base Excess O2 Saturation ABG pCO2 ABG pO2 VBG pH VBG pO2 VBG O2 Sat (Calc) VBG O2 Content VBG Base Excess POC Mix VBG pCO2 Pt Tmp Sodium Potassium Chloride Carbon Dioxide Anion Gap BUN Creatinine Estim Creat Clear Calc Est GFR (MDRD) Af Amer Est GFR (MDRD) Non-Af BUN/Creatinine Ratio Glucose Calcium POC Glucose 58 L 70 178 H 12/28/17 12/29/17 22:51 06:15 WBC RBC Hgb Hct MCV MCH MCHC RDW RDW Differential Plt Count MPV Immature Gran % (Auto) Neut % (Auto) Lymph % (Auto) [place] % (Auto) Eos % (Auto) Baso % (Auto) Absolute Neuts (auto) Absolute Lymphs (auto) Total Counted Specimen Type pH Bicarbonate Actual POC Total CO2 Base Excess O2 Saturation ABG pCO2 ABG pO2 VBG pH VBG pO2 VBG O2 Sat (Calc) VBG O2 Content VBG Base Excess POC Mix VBG pCO2 Pt Tmp Sodium Potassium Chloride Carbon Dioxide Anion Gap BUN Creatinine Estim Creat Clear Calc Est GFR (MDRD) Af Amer Est GFR (MDRD) Non-Af BUN/Creatinine Ratio Glucose Calcium POC Glucose 183 H 171 H Microbiology 12/23/17 08:50 Blood Culture (Wb) - Right Wrist Blood Culture - Final No growth in 5 days. 12/23/17 08:40 Blood Culture (Wb) - Line Draw Blood Culture - Final No growth in 5 days. Clinical Impression(s) from Imaging Studies Brain CT 12/12/17 07:34 IMPRESSION: No CT evidence of acute intracranial hemorrhage. Electronically Signed: Katya Wright MD at 8:54 EST , Service support , Chest X-Ray 12/12/17 07:40 IMPRESSION: Cardiomegaly and mild pulmonary congestion. Electronically Signed: Katya Wright MD at 8:02 EST , Service support , Chest X-Ray 12/15/17 06:34 IMPRESSION: All the support tubes are in good position. Residual increased markings in both lungs as described although there has been improvement as compared to prior study. Electronically Signed: Akhil Izquierdo MD at 11:07 EST Tel [phone], Service support , Chest X-Ray 12/16/17 12:08 IMPRESSION: Stable examination. Electronically Signed: Akhil Izquierdo MD at 12:39 EST Tel [phone], Service support , Chest X-Ray 12/19/17 07:17 IMPRESSION: Residual increased markings at the left lung base suggestive of atelectasis and/or infiltrate. The remainder of the examination is unremarkable. Electronically Signed: Akhil Izquierdo MD at 8:45 EST Tel [phone], Service support , Chest X-Ray 12/20/17 06:05 IMPRESSION: Stable position of the endotracheal tube and enterogastric tube. Progressive left lower lobe atelectasis and/or infiltrate. Electronically Signed: Akhil Izquierdo MD at 9:15 EST Tel [phone], Service support , Chest X-Ray 12/21/17 14:25 IMPRESSION: 1. Endotracheal tube tip is 5.5 cm above the byron. 2. Suboptimal ventilatory effort with stable platelike atelectasis at the left base and mild atelectasis on the right, as noted. Electronically Signed: Brayan Pretty MD at 15:36 EST , Service support , Chest X-Ray 12/21/17 15:00 IMPRESSION: Limited examination. The tip of the orogastric tube appears to be in the distal portion of the esophagus. Electronically Signed: Akhil Izquierdo MD at 15:49 EST Tel [phone], Service support , Chest X-Ray 12/22/17 06:00 IMPRESSION: Increased markings at the lung bases more prominent at the left lung base with blunting of left costophrenic angle. Mild increased markings in the right upper lobe. Follow-up is recommended. The tip of the endotracheal tube is at 5 cm proximal to the byron. Electronically Signed: Akhil Izquierdo MD at 9:46 EST Tel [phone], Service support , Chest X-Ray 12/22/17 11:01 IMPRESSION: 1. Nasogastric tube passes beneath the diaphragm, its tip outside the [id number]. 2. Endotracheal tube unchanged. 3. Improved atelectasis in the right base. Atelectasis on the left is unchanged. 4. Borderline cardiac enlargement. No CHF. Electronically Signed: Brayan Pretty MD at 12:14 EST , Service support , Chest X-Ray 12/22/17 18:29 IMPRESSION: Endotracheal tube ends 4 cm above the byron. Enteric tube is well below the gastroesophageal junction. Stable lung findings with 1 broad platelike area of atelectasis or infiltrate across the left lung base. Electronically Signed: Janessa Combs MD at 22:21 EST , Service support , KUB X-Ray 12/22/17 19:00 IMPRESSION: Orogastric tube placement with tip in gastric body Electronically Signed: Filemon Orona MD at 23:43 EST , Service support , Chest X-Ray 12/23/17 04:27 IMPRESSION: 1. Bilateral basilar airspace consolidation and atelectasis. 2. Right upper lobe subsegmental atelectasis. Electronically Signed: Katya Wright MD at 8:46 EST , Service support , Chest X-Ray 12/26/17 14:30 IMPRESSION: The tip of the tracheostomy is at 5.2 cm proximal to the byron. Alignment left basilar atelectasis with blunting of left costophrenic angle. Electronically Signed: Akhil Izquierdo MD at 15:10 EST Tel [phone], Service support , Chest CTA 12/26/17 15:01 IMPRESSION: Dense bilateral lower lobe infiltrates.. No evidence for pulmonary embolus ASHD. No evidence for aortic aneurysm Electronically Signed: Filemon Orona MD at 16:35 EST , Service support , Medical Necessity - Tobacco Use Smoking Status: Current every day smoker Assessment/Plan All Active Problems (Last Updated 12/25/17 @ 08:22 by Juan Manuel Subramanian DO) Aspiration pneumonia due to food (regurgitated) (Acute) Heart failure with preserved ejection fraction (Acute) GALILEA (acute kidney injury) (Acute) Klebsiella pneumonia (Acute) Acute respiratory failure with hypoxia and hypercapnia (Acute) Pneumococcal pneumonia (Acute) Metabolic encephalopathy (Resolved) Chest pain (Resolved) Respiratory failure, acute (Resolved) RECOMMENDATIONS: 1. Tentative plans for tracheostomy Tuesday. Tube feeds will need to be placed on hold midnight the night before. 2. Continue antibiotics to complete treatment course. 3. Continue bronchodilators. 4. Continue subcutaneous heparin and Pepcid for prophylaxis. 5. Continue tube feeds and free water flushes. 6. Continue prednisone 40 mg daily via G-tube with plans for prolonged taper. 7. Gentle diuresis per cardiology recommendations. 8. Obtain repeat basic metabolic profile this morning. IMPRESSIONS: 1. Acute on chronic combined respiratory failure Likely secondary to decompensated heart failure in the setting of medical noncompliance, with superimposed bronchospastic airway disease, ongoing tobacco dependence and aspiration pneumonia all contributing. The patient's hospital course to date has been complicated by 2 independent self extubations by the patient leading to aspiration of gastric contents. He remains on antibiotics accordingly. The patient has already undergone PEG tube placement and attempt was made on December 26 for tracheostomy placement. However, the patient desaturated in the OR leading to cancellation of the procedure. A follow-up CTA chest revealed no evidence for pulmonary embolism. The etiology for the patient's hypoxia was likely the consequence of alveolar derecruitment. Continue to wean FiO2 and PEEP as tolerated. Would plan to keep the patient's oxygen saturations 88-92%, to prevent paradoxical CO2 retention. Continue current sedation regimen as ordered. Tentative plans for tracheostomy placement Tuesday. 2. Metabolic encephalopathy Improved. Likely secondary to acute on chronic CO2 retention. Anticipate improvement with correction of the patient's underlying metabolic derangements. Minimize sedation as tolerated. 3. Decompensated heart failure/history of ischemic cardiomyopathy The patient's weight is significantly elevated when compared to that documented from November. The patient has been diuresed a great amount over his hospitalization. However, he has had a rising sodium level, for which his diuretic regimen has been augmented. In addition, the patient's tube feeds were transitioned to an alternative formula to increase the amount of free water in his diet. The patient did undergo a cardiac catheterization on December 28, which revealed patent stents. 4. Diabetes mellitus Continue Accu-Cheks and sliding scale insulin coverage. 5. Obstructive sleep apnea The patient has a history of outpatient noncompliance with the use of nocturnal Pap therapy. He only utilizes supplemental oxygen on a nightly basis. 6. Ongoing tobacco dependence/super morbid obesity/history of medical noncompliance/hypertension Complicates care, management, recovery and prognosis. Nicotine replacement therapy can be utilized while admitted to the hospital. TIME: 35 minutes of critical care time, independent of procedures, was spent addressing the patient's acute on chronic combined respiratory failure, metabolic encephalopathy, decompensated heart failure, obstructive sleep apnea, review of all data and collaboration with the care team. ([id number]) Code Visit 9xxxx: [id number] Critical care first hour
[2017-12-29 07:20] LABS: Anion Gap 4 (5-15); BUN 33 mg/dL (7-18); Calcium,Total 8.7 mg/dL (8.5-10.1); Chloride 108 mmol/L (98-107); Creatinine, Serum 0.75 mg/dL (0.70-1.30); EST Glomerular Filtration Rate 113 mL/min (>60); Est Glom Filt Rate - Afr Amer 137 mL/min (>60); Glucose 157 mg/dL (74-106); Potassium 3.6 mmol/L (3.5-5.1); Sodium Level 146 mmol/L (136-145)
--- NOTE | 2017-12-29 07:32 | PCM.PN.HOSP ---
Patient Problems: Active and Suspected Problems (Last Updated 12/25/17 @ 08:22 by Juan Manuel Subramanian DO) Aspiration pneumonia due to food (regurgitated) (Acute) Subjective: Seen and examined. Still on ventilator 40% FiO2, 450 mL tidal volume, PEEP of 8 respiratory rate 15 Systolic blood pressure on lower side in 100s 90s Vitals/I&O's: Vital Signs Temp Pulse Resp BP Pulse Ox 97.6 F L 72 14 99/52 L 99 12/29/17 06:00 12/29/17 06:39 12/29/17 06:39 12/29/17 06:00 12/29/17 06:39 Oxygen Flow Rate (L/min) 50 Oxygen Delivery Method Mechanical Ventilator Weight: 306 lb 7.08 oz Body Mass Index (BMI) 55.5 Finger Stick Blood Glucose 193 Intake and Output for Last 24 Hours 12/27/17 12/28/17 12/29/17 23:59 23:59 23:59 Intake Total 2787.4 / 2787.4 2100.1 / 2100.1 282 / 282 Output Total 2250 / 2250 3275 / 3275 200 / 200 Balance 537.4 / 537.4 -1174.9 / -1174.9 82 / 82 General: Cooperative, - - Awake HEENT: Atraumatic, PERRLA, EOMI, Normocephalic Oral: Moist Mucosa Neck: Supple, No JVD, Negative Carotid Bruits Lungs: Diminished, Rhonchi Cardiovascular: Regular rate, Regular Rhythm, Normal S1, Normal S2, No murmurs Abdomen: Bowel Sounds Present, Soft, Non Tender Extremities: Capillary Refill Less than 3 Seconds, Edema Skin: No rashes, No breakdown Musculoskeletal: No Tenderness to Palpation of Joints or Extremities, Arthritic Changes, Muscle Wasting Neurological: Cranial nerves II-XII grossly intact Psych/Mental Status: Normal Affect, Appropriate Microbiology Past 72 Hours 12/23/17 08:50 Blood Culture (Wb) - Right Wrist Blood Culture - Final No growth in 5 days. 12/23/17 08:40 Blood Culture (Wb) - Line Draw Blood Culture - Final No growth in 5 days. 12/23/17 08:30 Urine Catheter - Butler Urine Culture - Final Yeast, not Audra albicans Laboratory Results 12/28/17 05:25: POC Glucose 80 12/28/17 08:44: Specimen Type JAYLENE, VBG pH 7.45 H, VBG pO2 33, VBG O2 Sat (Calc) 65, VBG O2 Content 36 H, VBG Base Excess 11 H, POC Mix VBG pCO2 Pt Tmp 49.8 12/28/17 08:47: Specimen Type JAYLENE, VBG pH 7.45 H, VBG pO2 31, VBG O2 Sat (Calc) 62, VBG O2 Content 36 H, VBG Base Excess 10 H, POC Mix VBG pCO2 Pt Tmp 49.1 12/28/17 08:50: Specimen Type ART, pH 7.46 H, Bicarbonate Actual 33.6 H, POC Total CO2 35, Base Excess 10 H, O2 Saturation 91 L, ABG pCO2 46.9 H, ABG pO2 58 L 12/28/17 11:22: POC Glucose 58 L 12/28/17 11:45: POC Glucose 70 12/28/17 17:48: POC Glucose 178 H 12/28/17 22:51: POC Glucose 183 H 12/29/17 06:15: POC Glucose 171 H 12/29/17 07:00: Sodium 146 H, Potassium 3.6, Chloride 108 H, Carbon Dioxide 34.0 H, Anion Gap 4 L, BUN 33 H, Creatinine 0.75, Estim Creat Clear Calc 102.60, Est GFR (MDRD) Af Amer 137, Est GFR (MDRD) Non-Af 113, BUN/Creatinine Ratio 44.0 H, Glucose 157 H, Calcium 8.7 Current Medications Acetaminophen (Tylenol Liquid) 650 mg GT Q6H PRN PRN PRN Reason: FEVER Last Admin: 12/24/17 00:16 Dose: 650 mg Albuterol Sulfate (Ventolin Aerosols) 2.5 mg INHALATION Q6HWA.RT [facility] Last Admin: 12/29/17 06:38 Dose: 2.5 mg Aspirin (Aspirin, Baby) 81 mg GT DAILY [facility] Last Admin: 12/28/17 07:39 Dose: 81 mg Atorvastatin Calcium (Lipitor) 40 mg GT QHS [facility] Last Admin: 12/28/17 21:55 Dose: 40 mg Chlorhexidine Gluconate () 15 ml PO BID [facility] Last Admin: 12/28/17 21:53 Dose: 15 ml Chlorhexidine Gluconate () 1 each TOPICAL DAILY [facility] Last Admin: 12/28/17 06:04 Dose: 1 each Clopidogrel Bisulfate (Plavix) 75 mg GT DAILY [facility] Last Admin: 12/28/17 07:39 Dose: 75 mg Dextrose (D50w Syringe) 0 gm IV X1 PRN; Protocol PRN Reason: Hypoglycemia Famotidine (Pepcid) 20 mg GT BID [facility] Last Admin: 12/28/17 21:54 Dose: 20 mg Furosemide (Lasix) 40 mg IV BID@1000,1800 [facility] Last Admin: 12/28/17 17:51 Dose: 40 mg Glucagon () 1 mg IM .X1 PRN PRN Reason: Hypoglycemia Heparin Sodium (Beef Lung) (Heparin 500 Unit/5 Ml (100/Ml)) 500 unit IV UD PRN PRN Reason: HEPARIN FLUSH Heparin Sodium (Porcine) (Heparin Na) 5,000 unit SC Q8 [facility] Last Admin: 12/29/17 06:20 Dose: 5,000 unit Sodium Chloride () 250 mls @ 15 mls/hr IV .[id number] PRN PRN Reason: SALINE FLUSH Sodium Chloride () 250 mls @ 15 mls/hr IV .[id number] PRN PRN Reason: SALINE FLUSH Last Admin: 12/16/17 21:29 Dose: 15 mls/hr Propofol (Diprivan) 1,000 mg in 100 mls @ 9.852 mls/hr CONT INF .[id number] [facility] Last Admin: 12/29/17 06:41 Dose: Not Given Fentanyl () 100 mls @ 7.5 mls/hr IV .Q40H [facility] Last Admin: 12/28/17 12:39 Dose: 7.5 mls/hr Enteral Nutritional Formula (Vital Af 1.2 Jeremiah Liquid) 1,000 mls @ 65 mls/hr GT .[id number] [facility] Last Admin: 12/28/17 17:52 Dose: Not Given Sodium Chloride () 1,000 mls @ 0 mls/hr IV .Q0M [facility] Sodium Chloride () 1,000 mls @ 0 mls/hr IV .Q0M [facility] Insulin Glargine (Lantus (Bk)) 30 units SC BID [facility] Last Admin: 12/28/17 22:55 Dose: 30 units Insulin Human Lispro (Humalog Kwikpen ([facility])) 0 unit SC Q6 [facility]; Protocol Last Admin: 12/29/17 06:20 Dose: 3 u Labetalol HCl (Trandate) 5 mg IV X1 PRN PRN Reason: SBP > 160 prior to sheath pull Stop: 12/30/17 09:07 Levofloxacin (Levaquin Tablet) 750 mg PO DAILY@0600 [facility] Last Admin: 12/29/17 06:53 Dose: 750 mg Magnesium Hydroxide (Milk Of Magnesia) 30 ml PO DAILY PRN PRN PRN Reason: Constipation Polyethylene Glycol (Miralax) 17 gm GT DAILY PRN PRN PRN Reason: Constipation Potassium Bicarb/Potassium Chloride (Potassium Chl 25 Meq Eff (For Liquid)) 25 meq GT DAILY [facility] Last Admin: 12/28/17 11:28 Dose: 25 meq Prednisone () 40 mg GT DAILY@0800 [facility] Last Admin: 12/28/17 11:27 Dose: 40 mg Sodium Chloride () 5 - 30 ml IV UD PRN PRN Reason: SALINE FLUSH Last Admin: 12/29/17 06:57 Dose: 10 ml Medical Necessity - Tobacco Use Smoking Status: Current every day smoker Assessment/Plan All Active Problems (Last Updated 12/25/17 @ 08:22 by Juan Manuel Subramanian DO) Aspiration pneumonia due to food (regurgitated) (Acute) Heart failure with preserved ejection fraction (Acute) GALILEA (acute kidney injury) (Acute) Klebsiella pneumonia (Acute) Acute respiratory failure with hypoxia and hypercapnia (Acute) Pneumococcal pneumonia (Acute) Metabolic encephalopathy (Resolved) Chest pain (Resolved) Respiratory failure, acute (Resolved) This is a 57 gentleman with multiple comorbidities including chronic combined respiratory failure, obstructive sleep apnea, CAD with multiple stents, history of cardiac arrest was admitted from jail for shortness of breath for 5 days prior to admission. Initial chest x-ray showed pulmonary congestion. EKG in the ED shows sinus rhythm with diffuse T wave inversions and initial troponin 0.022. Patient was emergently intubated in ED and admitted to ICU for respiratory arrest. 1 acute on chronic hypoxic and hypercarbic combined respiratory failure: Currently patient is euvolemic. On patient is 50% FiO2. Ventilatory being managed by medical affairs director. Tracheostomy postponed to Tuesday. 2. Bilateral right lower lobe and left lower lobe Streptococcus pneumoniae and Klebsiella oxytoca pneumonia, right upper lobe subsegmental atelectasis: Patient on Levaquin since . Pulmonary tolerating. 3. Acute systolic and diastolic heart failure most probably ischemic cardiomyopathy: Currently euvolemic (EF 25% by LV gram). EF 60% on echo 12/12 but echo was suboptimal. Lasix 40 mg IV twice daily. Patient had LAD stent in 2012, proximal LAD in February 2016 for in-stent stenosis and then left circumflex in June 2017. Patient also has moderate global LV dysfunction with right ventricular enlargement. The patient had right and left heart cath by Dr. Li on 12/28 with EF 25% by LV gram shows severe global LV systolic dysfunction, nonobstructive coronary artery with patent venous stents has normal pulmonary hemodynamics parameter. Right-sided pressures normal. 4. Electrolyte imbalance: Hyponatremia, hypochloremia: Sodium 150, chloride 111, K3.9. Free water supplement. 5. Acute kidney injury: Currently creatinine 0.83, BUN 42. Estimated creatinine clearance 92. GALILEA resolved. 6. Fevers no fever since 12/25. Low-grade fever in the morning hours of 12/25, T-max 99.8. BCx on 12/12 and 12/23 negative TTE on the negative UA negative x 3. urine culture of 12/12 no growth. Urine culture, preliminary from 12/23 shows yeastlike organism Sputum culture positive of Streptococcus pneumoniae, Klebsiella oxytoca and yeast. BCx negative on the and 7. Diabetes mellitus type 2: Blood sugar is reasonably controlled. Less than 200 mg/dL. Blood sugars are running lower side, 70 and 80 mg/dL on Accu-Cheks. Lantus decreased to 30 units subcu twice daily on Accu-Chek before meals and at bedtime covered with insulin lispro. 8. DVT prophylaxis: Heparin 5000 units every 8 hourly Discharge plan: Anticipate LTAC after tracheostomy Hospital course and overall management plan discussed with patient's friend and power of consumer attorney, Mr. Jamaian Gary near the bedside. Microbiology Past 72 Hours 12/23/17 08:50 Blood Culture (Wb) - Right Wrist Blood Culture - Final No growth in 5 days. 12/23/17 08:40 Blood Culture (Wb) - Line Draw Blood Culture - Final No growth in 5 days. 12/23/17 08:30 Urine Catheter - Butler Urine Culture - Final Yeast, not Audra albicans Laboratory Results 12/28/17 05:25: POC Glucose 80 12/28/17 08:44: Specimen Type JAYLENE, VBG pH 7.45 H, VBG pO2 33, VBG O2 Sat (Calc) 65, VBG O2 Content 36 H, VBG Base Excess 11 H, POC Mix VBG pCO2 Pt Tmp 49.8 12/28/17 08:47: Specimen Type JAYLENE, VBG pH 7.45 H, VBG pO2 31, VBG O2 Sat (Calc) 62, VBG O2 Content 36 H, VBG Base Excess 10 H, POC Mix VBG pCO2 Pt Tmp 49.1 12/28/17 08:50: Specimen Type ART, pH 7.46 H, Bicarbonate Actual 33.6 H, POC Total CO2 35, Base Excess 10 H, O2 Saturation 91 L, ABG pCO2 46.9 H, ABG pO2 58 L 12/28/17 11:22: POC Glucose 58 L 12/28/17 11:45: POC Glucose 70 12/28/17 17:48: POC Glucose 178 H 12/28/17 22:51: POC Glucose 183 H 12/29/17 06:15: POC Glucose 171 H 12/29/17 07:00: Sodium 146 H, Potassium 3.6, Chloride 108 H, Carbon Dioxide 34.0 H, Anion Gap 4 L, BUN 33 H, Creatinine 0.75, Estim Creat Clear Calc 102.60, Est GFR (MDRD) Af Amer 137, Est GFR (MDRD) Non-Af 113, BUN/Creatinine Ratio 44.0 H, Glucose 157 H, Calcium 8.7 Code Visit Inpatient E&M: 02682 Subs Hosp L3
[2017-12-29] MEDS: Clopidogrel Bisulfate 75 MG Tablet GT (09:20)
[2017-12-29] MEDS: Aspirin 81 MG TAB.CHEW GT (09:20)
[2017-12-29] MEDS: Chlorhexidine 15 ML PO ×2 (09:20→22:04)
[2017-12-29] MEDS: Famotidine 20 MG Tablet GT ×2 (09:20→22:05)
[2017-12-29] MEDS: CHLORHEXIDINE GLUC 2% CLOTH 1 EACH TOWELETTE TOPICAL (09:21)
[2017-12-29] MEDS: Furosemide 40 MG/4 ML Vial IV ×2 (09:22→17:11)
[2017-12-29] MEDS: Vital AF 1.2 Cal Liquid 1,000 ML 65 ML GT (09:22)
[2017-12-29] MEDS: predniSONE 20 MG Tablet 40 MG GT (09:22)
--- NOTE | 2017-12-29 09:52 | PCM.PN.CARD ---
Subjectve: Patient seen and evaluated. Appears to be comfortable on the vent. Objective: Vital Signs Temp Pulse Resp BP Pulse Ox 98 F 78 14 89/52 L 97 12/29/17 08:00 12/29/17 09:00 12/29/17 09:00 12/29/17 09:00 12/29/17 09:00 Oxygen Flow Rate (L/min) 50 Oxygen Delivery Method Mechanical Ventilator Weight: 306 lb 7.08 oz Body Mass Index (BMI) 55.5 Finger Stick Blood Glucose 193 Intake and Output for Last 24 Hours 12/27/17 12/28/17 12/29/17 23:59 23:59 23:59 Intake Total 2787.4 / 2787.4 2100.1 / 2100.1 402 / 402 Output Total 2250 / 2250 3275 / 3275 200 / 200 Balance 537.4 / 537.4 -1174.9 / -1174.9 202 / 202 General: Ill Appearing HEENT: PERRL, EOMI, Sclera Non Icteric Neck: Supple, Good ROM, No Lymph Node Enlargement Lungs: Diminished Arturo Bases Cardiovascular: Regular Rhythm, Normal S1, Normal S2, No Murmurs, No Rubs, No Gallops Vascular: No Carotid Bruits, Normal Femoral Pulses, Normal Radial Pulses, Normal Dorsalis Pedal Pulse, Normal Posterior Tibial Pulses Abdomen: Bowel Sounds Present, Soft, Non Tender, No HSM, No Organomegaly Extremities: No Cyanosis, No Clubbing, No edema Neurological: No Focal Motor or Sensory Deficit 12/29/17 07:00: Sodium 146 H, Potassium 3.6, Chloride 108 H, Carbon Dioxide 34.0 H, Anion Gap 4 L, BUN 33 H, Creatinine 0.75, Est GFR (MDRD) Af Amer 137, Est GFR (MDRD) Non-Af 113, BUN/Creatinine Ratio 44.0 H, Glucose 157 H, Calcium 8.7 Rhythm: EKG: ECHO: Stress Test: Cardiac Cath: PCI: CT Surgery: Holter monitor: EPS: PPM: CXR: Chest CT Scan: Medical Necessity - Tobacco Use Smoking Status: Current every day smoker Assessment/Plan 1. Atherosclerosis of [place] coronary artery of [place] heart without angina pectoris I25.10 PCI/stent LAD w/ 4.0 x 32 mm Promus 2012; PCI/GISSEL to Prox LAD w/ 4.0 x 20 mm Promus 02/25/16 for instent restenosis; PTCA/GISSEL to LCx in June 2017; The patient has known history of the prior. He underwent a cardiac catheterization yesterday which demonstrated nonobstructive coronary anatomy. His ejection fraction was noted to be lower. His pulmonary pressures were however noted to be normal. At this time I would not recommend any coronary intervention. Can proceed with tracheostomy placement. 2. Acute on chronic respiratory failure The exact precipitating events are not entirely clear at this time. His most recent echocardiogram had demonstrated an ejection fraction of approximately 60%. This appears to be lower on the cardiac catheterization however. No obvious wall motion abnormality was noted but this is a suboptimal study. Will continue current medical therapy as per the pulmonary service. 3. Hypertension His blood pressure medications will be adjusted as appropriate 4 Hyperlipidemia Continue aggressive medical therapy. Thank you for allowing me to participate in the care of your patient. Please don't hesitate to call if any issues arise
--- NOTE | 2017-12-29 09:55 | PN.CARD_ITS ---
Subjectve: Patient seen and evaluated. Appears to be comfortable on the vent. Objective: Vital Signs Temp Pulse Resp BP Pulse Ox 98 F 78 14 89/52 L 97 12/29/17 08:00 12/29/17 09:00 12/29/17 09:00 12/29/17 09:00 12/29/17 09:00 Oxygen Flow Rate (L/min) 50 Oxygen Delivery Method Mechanical Ventilator Weight: 306 lb 7.08 oz Body Mass Index (BMI) 55.5 Finger Stick Blood Glucose 193 Intake and Output for Last 24 Hours 12/27/17 12/28/17 12/29/17 23:59 23:59 23:59 Intake Total 2787.4 / 2787.4 2100.1 / 2100.1 402 / 402 Output Total 2250 / 2250 3275 / 3275 200 / 200 Balance 537.4 / 537.4 -1174.9 / -1174.9 202 / 202 General: Ill Appearing HEENT: PERRL, EOMI, Sclera Non Icteric Neck: Supple, Good ROM, No Lymph Node Enlargement Lungs: Diminished Arturo Bases Cardiovascular: Regular Rhythm, Normal S1, Normal S2, No Murmurs, No Rubs, No Gallops Vascular: No Carotid Bruits, Normal Femoral Pulses, Normal Radial Pulses, Normal Dorsalis Pedal Pulse, Normal Posterior Tibial Pulses Abdomen: Bowel Sounds Present, Soft, Non Tender, No HSM, No Organomegaly Extremities: No Cyanosis, No Clubbing, No edema Neurological: No Focal Motor or Sensory Deficit 12/29/17 07:00: Sodium 146 H, Potassium 3.6, Chloride 108 H, Carbon Dioxide 34.0 H, Anion Gap 4 L, BUN 33 H, Creatinine 0.75, Est GFR (MDRD) Af Amer 137, Est GFR (MDRD) Non-Af 113, BUN/Creatinine Ratio 44.0 H, Glucose 157 H, Calcium 8.7 Rhythm: EKG: ECHO: Stress Test: Cardiac Cath: PCI: CT Surgery: Holter monitor: EPS: PPM: CXR: Chest CT Scan: Medical Necessity - Tobacco Use Smoking Status: Current every day smoker Assessment/Plan 1. Atherosclerosis of [place] coronary artery of [place] heart without angina pectoris I25.10 PCI/stent LAD w/ 4.0 x 32 mm Promus 2012; PCI/GISSEL to Prox LAD w/ 4.0 x 20 mm Promus 02/25/16 for instent restenosis; PTCA/GISSEL to LCx in June 2017; The patient has known history of the prior. He underwent a cardiac catheterization yesterday which demonstrated nonobstructive coronary anatomy. His ejection fraction was noted to be lower. His pulmonary pressures were however noted to be normal. At this time I would not recommend any coronary intervention. Can proceed with tracheostomy placement. 2. Acute on chronic respiratory failure * The exact precipitating events are not entirely clear at this time. His most recent echocardiogram had demonstrated an ejection fraction of approximately 60%. This appears to be lower on the cardiac catheterization however. No obvious wall motion abnormality was noted but this is a suboptimal study. * Will continue current medical therapy as per the pulmonary service. * 3. Hypertension * His blood pressure medications will be adjusted as appropriate * 4 Hyperlipidemia * Continue aggressive medical therapy. Thank you for allowing me to participate in the care of your patient. Please don't hesitate to call if any issues arise
[2017-12-29 11:30] LABS: Bedside Glucose 173 mg/dL (70-110)
[2017-12-29 17:11] LABS: Bedside Glucose 237 mg/dL (70-110)
[2017-12-29] MEDS: Atorvastatin Calcium 40 MG Tablet GT (22:04)
[2017-12-29 22:50] LABS: Bedside Glucose 194 mg/dL (70-110)
[2017-12-30] VITALS (38 sets, daily range): BP systolic 83–128; BP diastolic 27–95; PULSE 66–102; RESP 13–20; TEMP 36.3–36.8; O2SAT 88–100; BMI 46.5; BMI 45.8
[2017-12-30] MEDS: Propofol 10MG/Ml 1,000 MG/100 ML Bottle 9.852 MG CONT INF ×3 (00:58→19:46)
[2017-12-30] MEDS: fentaNYL drip 100 ML 7.5 MCG IV ×2 (00:59→21:24)
--- NOTE | 2017-12-30 01:12 | PCM.PN.HOSP ---
Patient Problems: Active and Suspected Problems (Last Updated 12/25/17 @ 08:22 by Juan Manuel Subramanian DO) Aspiration pneumonia due to food (regurgitated) (Acute) Subjective: Seen and examined in the morning and afternoon. Patient had tracheostomy. Initially had severe cough and secretions after tracheostomy but currently controlled. Blood pressure is running low and propofol on hold. On fentanyl drip. Currently on 50% FiO2 on ventilator through trach tube Vitals/I&O's: Vital Signs Temp Pulse Resp BP Pulse Ox 97.6 F L 68 14 112/60 91 12/30/17 06:00 12/30/17 06:31 12/30/17 06:31 12/30/17 06:00 12/30/17 06:31 Oxygen Flow Rate (L/min) 40 Oxygen Delivery Method Mechanical Ventilator Weight: 314 lb 6.067 oz Body Mass Index (BMI) 46.5 Finger Stick Blood Glucose 193 Intake and Output for Last 24 Hours 12/28/17 12/29/17 12/30/17 23:59 23:59 23:59 Intake Total 2100.1 / 2100.1 2392 / 2392 40 / 40 Output Total 3275 / 3275 1950 / 1950 200 / 200 Balance -1174.9 / -1174.9 442 / 442 -160 / -160 General: Cooperative, Lethargic HEENT: Atraumatic, PERRLA, EOMI, Normocephalic Oral: - - Tracheostomy tube. No active bleeding. Sutures in place. Neck: Supple, No JVD, Negative Carotid Bruits Lungs: Diminished, Rhonchi, - - On vent support Cardiovascular: Regular rate, Regular Rhythm, Normal S1, Normal S2, No murmurs Abdomen: Bowel Sounds Present, Soft, Non Tender, Non-Distended, - - Butler catheter draining clear urine Extremities: Capillary Refill Less than 3 Seconds, Edema, - Skin: No rashes, No breakdown Musculoskeletal: No Tenderness to Palpation of Joints or Extremities, Arthritic Changes, Muscle Wasting Neurological: Cranial nerves II-XII grossly intact Psych/Mental Status: Normal Affect, Appropriate Microbiology Past 72 Hours 12/23/17 08:50 Blood Culture (Wb) - Right Wrist Blood Culture - Final No growth in 5 days. 12/23/17 08:40 Blood Culture (Wb) - Line Draw Blood Culture - Final No growth in 5 days. Laboratory Results 12/29/17 07:00: Sodium 146 H, Potassium 3.6, Chloride 108 H, Carbon Dioxide 34.0 H, Anion Gap 4 L, BUN 33 H, Creatinine 0.75, Estim Creat Clear Calc 102.60, Est GFR (MDRD) Af Amer 137, Est GFR (MDRD) Non-Af 113, BUN/Creatinine Ratio 44.0 H, Glucose 157 H, Calcium 8.7 12/29/17 11:17: POC Glucose 173 H 12/29/17 17:06: POC Glucose 237 H 12/29/17 22:46: POC Glucose 194 H 12/30/17 04:40: WBC 8.5, RBC 4.39 L, Hgb 11.9 L, Hct 40.0, MCV 91.1, MCH 27.1, MCHC 29.8 L, RDW 15.1 H, RDW Differential 50.3 H, Plt Count 137 L, MPV 12.6 H, Immature Gran % (Auto) 0.800, Neut % (Auto) 69.5, Lymph % (Auto) 22.2, [place] % (Auto) 5.5, Eos % (Auto) 1.9, Baso % (Auto) 0.1, Absolute Neuts (auto) 5.9, Absolute Lymphs (auto) 1.88, Total Counted Not Reportable 12/30/17 04:40: APTT 21.3 L 12/30/17 04:40: Sodium 147 H, Potassium 3.2 L, Chloride 106, Carbon Dioxide 34.0 H, Anion Gap 7, BUN 33 H, Creatinine 0.63 L, Estim Creat Clear Calc 122.14, Est GFR (MDRD) Af Amer 166, Est GFR (MDRD) Non-Af 137, BUN/Creatinine Ratio 52.1 H, Glucose 108 H, Calcium 8.5 12/30/17 04:40: Hemoglobin A1c Pending 12/30/17 05:32: POC Glucose 108 Current Medications Acetaminophen (Tylenol Liquid) 650 mg GT Q6H PRN PRN PRN Reason: FEVER Last Admin: 12/24/17 00:16 Dose: 650 mg Albuterol Sulfate (Ventolin Aerosols) 2.5 mg INHALATION Q6HWA.RT [facility] Last Admin: 12/30/17 06:30 Dose: 2.5 mg Aspirin (Aspirin, Baby) 81 mg GT DAILY [facility] Last Admin: 12/29/17 09:20 Dose: 81 mg Atorvastatin Calcium (Lipitor) 40 mg GT QHS [facility] Last Admin: 12/29/17 22:04 Dose: 40 mg Chlorhexidine Gluconate () 15 ml PO BID [facility] Last Admin: 12/29/17 22:04 Dose: 15 ml Chlorhexidine Gluconate () 1 each TOPICAL DAILY [facility] Last Admin: 12/29/17 09:21 Dose: 1 each Clopidogrel Bisulfate (Plavix) 75 mg GT DAILY [facility] Last Admin: 12/29/17 09:20 Dose: 75 mg Dextrose (D50w Syringe) 0 gm IV X1 PRN; Protocol PRN Reason: Hypoglycemia Famotidine (Pepcid) 20 mg GT BID [facility] Last Admin: 12/29/17 22:05 Dose: 20 mg Furosemide (Lasix) 40 mg IV BID@1000,1800 [facility] Last Admin: 12/29/17 17:11 Dose: 40 mg Glucagon () 1 mg IM .X1 PRN PRN Reason: Hypoglycemia Heparin Sodium (Beef Lung) (Heparin 500 Unit/5 Ml (100/Ml)) 500 unit IV UD PRN PRN Reason: HEPARIN FLUSH Heparin Sodium (Porcine) (Heparin Na) 5,000 unit SC Q8 [facility] Last Admin: 12/30/17 05:36 Dose: Not Given Sodium Chloride () 250 mls @ 15 mls/hr IV .[id number] PRN PRN Reason: SALINE FLUSH Sodium Chloride () 250 mls @ 15 mls/hr IV .[id number] PRN PRN Reason: SALINE FLUSH Last Admin: 12/16/17 21:29 Dose: 15 mls/hr Propofol (Diprivan) 1,000 mg in 100 mls @ 9.852 mls/hr CONT INF .[id number] [facility] Last Admin: 12/30/17 00:58 Dose: 9.852 mls/hr Fentanyl () 100 mls @ 7.5 mls/hr IV .Q40H [facility] Last Admin: 12/30/17 00:59 Dose: 7.5 mls/hr Enteral Nutritional Formula (Vital Af 1.2 Jeremiah Liquid) 1,000 mls @ 65 mls/hr GT .[id number] [facility] Last Admin: 12/30/17 05:47 Dose: Not Given Sodium Chloride () 1,000 mls @ 0 mls/hr IV .Q0M [facility] Sodium Chloride () 1,000 mls @ 0 mls/hr IV .Q0M [facility] Potassium Chloride (Kcl 20meq/100ml) 20 meq in 100 mls @ 100 mls/hr IV Q1H [facility] Stop: 12/30/17 08:59 Insulin Glargine (Lantus (Bkc)) 30 units SC BID [facility] Last Admin: 12/29/17 22:56 Dose: 30 units Insulin Human Lispro (Humalog Kwikpen (Bkc)) 0 unit SC Q6 [facility]; Protocol Last Admin: 12/30/17 05:36 Dose: Not Given Labetalol HCl (Trandate) 5 mg IV X1 PRN PRN Reason: SBP > 160 prior to sheath pull Stop: 12/30/17 09:07 Magnesium Hydroxide (Milk Of Magnesia) 30 ml PO DAILY PRN PRN PRN Reason: Constipation Polyethylene Glycol (Miralax) 17 gm GT DAILY PRN PRN PRN Reason: Constipation Potassium Bicarb/Potassium Chloride (Potassium Chl 25 Meq Eff (For Liquid)) 25 meq GT DAILY [facility] Last Admin: 12/29/17 09:22 Dose: 25 meq Prednisone () 40 mg GT DAILY@0800 [facility] Last Admin: 12/29/17 09:22 Dose: 40 mg Sodium Chloride () 5 - 30 ml IV UD PRN PRN Reason: SALINE FLUSH Last Admin: 12/29/17 17:12 Dose: 20 ml Medical Necessity - Tobacco Use Smoking Status: Current every day smoker Assessment/Plan All Active Problems (Last Updated 12/25/17 @ 08:22 by Juan Manuel Subramanian DO) Aspiration pneumonia due to food (regurgitated) (Acute) Heart failure with preserved ejection fraction (Acute) GALILEA (acute kidney injury) (Acute) Klebsiella pneumonia (Acute) Acute respiratory failure with hypoxia and hypercapnia (Acute) Pneumococcal pneumonia (Acute) Metabolic encephalopathy (Resolved) Chest pain (Resolved) Respiratory failure, acute (Resolved) This is a 57 gentleman with multiple comorbidities including chronic combined respiratory failure, obstructive sleep apnea, CAD with multiple stents, history of cardiac arrest was admitted from [facility] for shortness of breath for 5 days prior to admission. Initial chest x-ray showed pulmonary congestion. EKG in the ED shows sinus rhythm with diffuse T wave inversions and initial troponin 0.022. Patient was emergently intubated in ED and admitted to ICU for respiratory arrest. 1 acute on chronic hypoxic and hypercarbic combined respiratory failure: Currently patient is euvolemic. On patient is 50% FiO2. Ventilatory being managed by marketing analytics specialist. Patient had tracheostomy today by Dr. Bazzi. On tracheostomy suction. Still on vent support 2. Bilateral right lower lobe and left lower lobe Streptococcus pneumoniae and Klebsiella oxytoca pneumonia, right upper lobe subsegmental atelectasis: Patient on Levaquin since . Pulmonary tolerating. 3. Acute systolic and diastolic heart failure most probably ischemic cardiomyopathy: Currently euvolemic (EF 25% by LV gram). EF 60% on echo 12/12 but echo was suboptimal. Lasix 40 mg IV twice daily. Patient had LAD stent in 2012, proximal LAD in February 2016 for in-stent stenosis and then left circumflex in June 2017. Patient also has moderate global LV dysfunction with right ventricular enlargement. The patient had right and left heart cath by Dr. Li on 12/28 with EF 25% by LV gram shows severe global LV systolic dysfunction, nonobstructive coronary artery with patent venous stents has normal pulmonary hemodynamics parameter. Right-sided pressures normal. 4. Electrolyte imbalance: Hyponatremia, hypochloremia: Sodium 150, chloride 111, K3.9. Free water supplement. 5. Acute kidney injury: Currently creatinine 0.83, BUN 42. Estimated creatinine clearance 92. GALILEA resolved. 6. Fevers no fever since 12/25. Low-grade fever in the morning hours of 12/25, T-max 99.8. BCx on 12/12 and 12/23 negative TTE on the negative UA negative x 3. urine culture of 12/12 no growth. Urine culture, preliminary from 12/23 shows yeastlike organism Sputum culture positive of Streptococcus pneumoniae, Klebsiella oxytoca and yeast. BCx negative on the and 7. Diabetes mellitus type 2: Blood sugar is reasonably controlled. Less than 200 mg/dL. Blood sugars are running lower side, 70 and 80 mg/dL on Accu-Cheks. Lantus decreased to 30 units subcu twice daily on Accu-Chek before meals and at bedtime covered with insulin lispro. 8. DVT prophylaxis: Heparin 5000 units every 8 hourly Discharge plan: Anticipate LTAC after tracheostomy Hospital course and overall management plan discussed with patient's friend and power of precision agronomist, . [place] near the bedside. Microbiology Past 72 Hours 12/23/17 08:50 Blood Culture (Wb) - Right Wrist Blood Culture - Final No growth in 5 days. 12/23/17 08:40 Blood Culture (Wb) - Line Draw Blood Culture - Final No growth in 5 days. Laboratory Results 1 12/30/17 04:40: WBC 8.5, RBC 4.39 L, Hgb 11.9 L, Hct 40.0, MCV 91.1, MCH 27.1, MCHC 29.8 L, RDW 15.1 H, RDW Differential 50.3 H, Plt Count 137 L, MPV 12.6 H, Immature Gran % (Auto) 0.800, Neut % (Auto) 69.5, Lymph % (Auto) 22.2, [place] % (Auto) 5.5, Eos % (Auto) 1.9, Baso % (Auto) 0.1, Absolute Neuts (auto) 5.9, Absolute Lymphs (auto) 1.88, Total Counted Not Reportable 12/30/17 04:40: APTT 21.3 L 12/30/17 04:40: Sodium 147 H, Potassium 3.2 L, Chloride 106, Carbon Dioxide 34.0 H, Anion Gap 7, BUN 33 H, Creatinine 0.63 L, Estim Creat Clear Calc 122.14, Est GFR (MDRD) Af Amer 166, Est GFR (MDRD) Non-Af 137, BUN/Creatinine Ratio 52.1 H, Glucose 108 H, Calcium 8.5 12/30/17 04:40: Hemoglobin A1c 7.7 H 12/30/17 05:32: POC Glucose 108 12/30/17 09:00: POC Glucose 87 12/30/17 12:28: POC Glucose 102 Active Medications Acetaminophen (Tylenol Liquid) 650 mg GT Q6H PRN PRN PRN Reason: FEVER Last Admin: 12/24/17 00:16 Dose: 650 mg Albuterol Sulfate (Ventolin Aerosols) 2.5 mg INHALATION Q6HWA.RT [facility] Last Admin: 12/30/17 13:23 Dose: 2.5 mg Aspirin (Aspirin, Baby) 81 mg GT DAILY [facility] Last Admin: 12/30/17 14:44 Dose: 81 mg Atorvastatin Calcium (Lipitor) 40 mg GT QHS [facility] Last Admin: 12/29/17 22:04 Dose: 40 mg Chlorhexidine Gluconate () 15 ml PO BID [facility] Last Admin: 12/30/17 14:44 Dose: 15 ml Chlorhexidine Gluconate () 1 each TOPICAL DAILY [facility] Last Admin: 12/30/17 08:30 Dose: 1 each Clopidogrel Bisulfate (Plavix) 75 mg GT DAILY [facility] Last Admin: 12/30/17 14:45 Dose: 75 mg Dextrose (D50w Syringe) 0 gm IV X1 PRN; Protocol PRN Reason: Hypoglycemia Famotidine (Pepcid) 20 mg GT BID [facility] Last Admin: 12/30/17 14:44 Dose: 20 mg Furosemide (Lasix) 40 mg IV BID@1000,1800 [facility] Last Admin: 12/29/17 17:11 Dose: 40 mg Glucagon () 1 mg IM .X1 PRN PRN Reason: Hypoglycemia Heparin Sodium (Beef Lung) (Heparin 500 Unit/5 Ml (100/Ml)) 500 unit IV UD PRN PRN Reason: HEPARIN FLUSH Heparin Sodium (Porcine) (Heparin Na) 5,000 unit SC Q8 [facility] Last Admin: 12/30/17 14:46 Dose: Not Given Sodium Chloride () 250 mls @ 15 mls/hr IV .[id number] PRN PRN Reason: SALINE FLUSH Sodium Chloride () 250 mls @ 15 mls/hr IV .[id number] PRN PRN Reason: SALINE FLUSH Last Admin: 12/16/17 21:29 Dose: 15 mls/hr Fentanyl () 100 mls @ 7.5 mls/hr IV .Q40H [facility] Last Admin: 12/30/17 00:59 Dose: 7.5 mls/hr Enteral Nutritional Formula (Vital Af 1.2 Jeremiah Liquid) 1,000 mls @ 65 mls/hr GT .[id number] [facility] Last Admin: 12/30/17 14:46 Dose: 65 mls/hr Sodium Chloride () 1,000 mls @ 0 mls/hr IV .Q0M [facility] Sodium Chloride () 1,000 mls @ 0 mls/hr IV .Q0M [facility] Propofol (Diprivan) 1,000 mg in 100 mls @ 9.852 mls/hr CONT INF .[id number] [facility] Last Admin: 12/30/17 14:45 Dose: 9.852 mls/hr Insulin Glargine (Lantus (Bk)) 30 units SC BID [facility] Last Admin: 12/30/17 12:36 Dose: Not Given Insulin Human Lispro (Humalog Kwikpen (Bk)) 0 unit SC Q6 [facility]; Protocol Last Admin: 12/30/17 12:35 Dose: Not Given Magnesium Hydroxide (Milk Of Magnesia) 30 ml PO DAILY PRN PRN PRN Reason: Constipation Polyethylene Glycol (Miralax) 17 gm GT DAILY PRN PRN PRN Reason: Constipation Potassium Bicarb/Potassium Chloride (Potassium Chl 25 Meq Eff (For Liquid)) 25 meq GT DAILY [facility] Last Admin: 12/30/17 14:45 Dose: 25 meq Prednisone () 40 mg GT DAILY@0800 [facility] Last Admin: 12/30/17 14:43 Dose: 40 mg Sodium Chloride () 5 - 30 ml IV UD PRN PRN Reason: SALINE FLUSH Last Admin: 12/29/17 17:12 Dose: 20 ml Code Visit Inpatient E&M: 02521 Init Hosp L3
[2017-12-30 04:52] LABS: Absolute Lymphocyte Count 1.88 X10^3/ul (0.83-4.51); Absolute Neutrophil Count 5.9 X10^3/uL (2.0-7.7); Basophil# 0.01 X10^3/uL; Basophil% 0.1 % (0-1); Eosinophil# 0.16 X10^3/uL; Eosinophils% 1.9 % (0-5); Hemoglobin 11.9 g/dl (13.0-16.5); Lymphocyte # 1.88 X10^3/ul (4.0); Lymphocyte % 22.2 % (19-41); Mean Corp Hgb Conc 29.8 g/gl (32-36); Mean Corpuscular Hgb 27.1 pg (27.0-32.0); Mean Corpuscular Volume 91.1 fL (80-94); Mean Platelet Vol. 12.6 fl (6.2-12.0); Monocyte# 0.47 X10^3/uL; Monocyte% 5.5 % (0-10); Neutrophil # 5.88 X10^3/uL (2.7-7.7); Neutrophil % 69.5 % (47-70); Platelet Count 137 K/mm3 (150-450); RBC Distribution Width CV 15.1 % (11.6-14.6); RBC Distribution Width SD 50.3 fl (35.1-43.9); Red Blood Count 4.39 M/mm3 (4.6-6.2); White Blood Count 8.5 K/mm3 (4.4-11.0)
[2017-12-30 04:53] LABS: POSITIVE COUNT NO; POSITIVE DIFFERENTIAL NO; POSITIVE MORPHOLOGY NO
[2017-12-30 04:56] LABS: Partial Thromboplast Time 21.3 Seconds (24.1-36.2)
[2017-12-30 05:02] LABS: Anion Gap 7 (5-15); BUN 33 mg/dL (7-18); BUN/Creat Ratio 52.1 RATIO (10-20); Calcium,Total 8.5 mg/dL (8.5-10.1); Chloride 106 mmol/L (98-107); Creatinine, Serum 0.63 mg/dL (0.70-1.30); EST Glomerular Filtration Rate 137 mL/min (>60); Est Glom Filt Rate - Afr Amer 166 mL/min (>60); Estimated Creatinine Clearance 122.14 ml/min; Glucose 108 mg/dL (74-106); Potassium 3.2 mmol/L (3.5-5.1); Sodium Level 147 mmol/L (136-145)
[2017-12-30 05:36] LABS: Bedside Glucose 108 mg/dL (70-110)
[2017-12-30] MEDS: Albuterol 2.5 MG/3 ML VIAL.NEB. INHALATION ×3 (06:30→18:45)
--- NOTE | 2017-12-30 06:42 | PN_ITS ---
Subjective: The patient was seen and examined at the bedside this morning. Events from the last 24 hours have been reviewed. The patient is currently afebrile, hemodynamically stable and maintaining appropriate oxygen saturations on 40% FiO2. Tube feeds have been on hold since midnight for tentative tracheostomy this morning. Potassium is low this morning and currently being replaced. The patient is now overall net -10.3 L for his admission. Objective: The patient's most recent lab work, culture data and imaging studies have all been personally reviewed. Respiratory viral panel was negative. Surface echocardiogram revealed normal LV size and function with an ejection fraction of 60%. Sputum culture dated December 13 revealed evidence of Streptococcus pneumoniae. Repeat sputum culture dated December 16 was positive for Klebsiella. CTA chest dated December 26 revealed no evidence for pulmonary embolism, but did demonstrate bilateral lower lobe infiltrates. General: Alert, Cooperative, - - Intubated and mechanically ventilated. HEENT: Atraumatic, Normocephalic Oral: No Gingival or Mucosal Lesions/ Ulcerations, - - Endotracheal tube remains in place. Neck: Supple, No Nodes Lungs: No rhonchi, No wheeze, No rales, Diminished Cardiovascular: Regular rate, Regular Rhythm, Normal S1, Normal S2, No murmurs Abdomen: Bowel Sounds Present, Soft, Non Tender, - - +PEG Extremities: No clubbing, No cyanosis, No edema Skin: - - No significant change from previous. Musculoskeletal: No Tenderness to Palpation of Joints or Extremities, No Muscle Wasting Lymphatic: No Cervical, Supraclavicular, or Inguinal Adenopathy Neurological: Neuro grossly intact, - - Alert and following commands. Vital Signs Temp Pulse Resp BP Pulse Ox 36.4 C L 68 14 112/60 91 12/30/17 06:00 12/30/17 06:31 12/30/17 06:31 12/30/17 06:00 12/30/17 06:31 Oxygen Flow Rate (L/min) 40 Oxygen Delivery Method Mechanical Ventilator Weight: 314 lb 6.067 oz Body Mass Index (BMI) 46.5 Finger Stick Blood Glucose 193 Intake and Output for Last 24 Hours 12/28/17 12/29/17 12/30/17 23:59 23:59 23:59 Intake Total 2100.1 / 2100.1 2392 / 2392 40 / 40 Output Total 3275 / 3275 1950 / 1950 200 / 200 Balance -1174.9 / -1174.9 442 / 442 -160 / -160 Labs (Last 48 Hours) 12/28/17 12/28/17 12/28/17 05:25 08:44 08:47 WBC RBC Hgb Hct MCV MCH MCHC RDW RDW Differential Plt Count MPV Immature Gran % (Auto) Neut % (Auto) Lymph % (Auto) [place] % (Auto) Eos % (Auto) Baso % (Auto) Absolute Neuts (auto) Absolute Lymphs (auto) Total Counted APTT Specimen Type JAYLENE JAYLENE pH Bicarbonate Actual POC Total CO2 Base Excess O2 Saturation ABG pCO2 ABG pO2 VBG pH 7.45 H 7.45 H VBG pO2 33 31 VBG O2 Sat (Calc) 65 62 VBG O2 Content 36 H 36 H VBG Base Excess 11 H 10 H POC Mix VBG pCO2 Pt Tmp 49.8 49.1 Sodium Potassium Chloride Carbon Dioxide Anion Gap BUN Creatinine Estim Creat Clear Calc Est GFR (MDRD) Af Amer Est GFR (MDRD) Non-Af BUN/Creatinine Ratio Glucose Hemoglobin A1c Calcium POC Glucose 80 12/28/17 12/28/17 12/28/17 08:50 11:22 11:45 WBC RBC Hgb Hct MCV MCH MCHC RDW RDW Differential Plt Count MPV Immature Gran % (Auto) Neut % (Auto) Lymph % (Auto) [place] % (Auto) Eos % (Auto) Baso % (Auto) Absolute Neuts (auto) Absolute Lymphs (auto) Total Counted APTT Specimen Type ART pH 7.46 H Bicarbonate Actual 33.6 H POC Total CO2 35 Base Excess 10 H O2 Saturation 91 L ABG pCO2 46.9 H ABG pO2 58 L VBG pH VBG pO2 VBG O2 Sat (Calc) VBG O2 Content VBG Base Excess POC Mix VBG pCO2 Pt Tmp Sodium Potassium Chloride Carbon Dioxide Anion Gap BUN Creatinine Estim Creat Clear Calc Est GFR (MDRD) Af Amer Est GFR (MDRD) Non-Af BUN/Creatinine Ratio Glucose Hemoglobin A1c Calcium POC Glucose 58 L 70 12/28/17 12/28/17 12/29/17 17:48 22:51 06:15 WBC RBC Hgb Hct MCV MCH MCHC RDW RDW Differential Plt Count MPV Immature Gran % (Auto) Neut % (Auto) Lymph % (Auto) [place] % (Auto) Eos % (Auto) Baso % (Auto) Absolute Neuts (auto) Absolute Lymphs (auto) Total Counted APTT Specimen Type pH Bicarbonate Actual POC Total CO2 Base Excess O2 Saturation ABG pCO2 ABG pO2 VBG pH VBG pO2 VBG O2 Sat (Calc) VBG O2 Content VBG Base Excess POC Mix VBG pCO2 Pt Tmp Sodium Potassium Chloride Carbon Dioxide Anion Gap BUN Creatinine Estim Creat Clear Calc Est GFR (MDRD) Af Amer Est GFR (MDRD) Non-Af BUN/Creatinine Ratio Glucose Hemoglobin A1c Calcium POC Glucose 178 H 183 H 171 H 12/29/17 12/29/17 12/29/17 07:00 11:17 17:06 WBC RBC Hgb Hct MCV MCH MCHC RDW RDW Differential Plt Count MPV Immature Gran % (Auto) Neut % (Auto) Lymph % (Auto) [place] % (Auto) Eos % (Auto) Baso % (Auto) Absolute Neuts (auto) Absolute Lymphs (auto) Total Counted APTT Specimen Type pH Bicarbonate Actual POC Total CO2 Base Excess O2 Saturation ABG pCO2 ABG pO2 VBG pH VBG pO2 VBG O2 Sat (Calc) VBG O2 Content VBG Base Excess POC Mix VBG pCO2 Pt Tmp Sodium 146 H Potassium 3.6 Chloride 108 H Carbon Dioxide 34.0 H Anion Gap 4 L BUN 33 H Creatinine 0.75 Estim Creat Clear Calc 102.60 Est GFR (MDRD) Af Amer 137 Est GFR (MDRD) Non-Af 113 BUN/Creatinine Ratio 44.0 H Glucose 157 H Hemoglobin A1c Calcium 8.7 POC Glucose 173 H 237 H 12/29/17 12/30/17 12/30/17 22:46 04:40 04:40 WBC 8.5 RBC 4.39 L Hgb 11.9 L Hct 40.0 MCV 91.1 MCH 27.1 MCHC 29.8 L RDW 15.1 H RDW Differential 50.3 H Plt Count 137 L MPV 12.6 H Immature Gran % (Auto) 0.800 Neut % (Auto) 69.5 Lymph % (Auto) 22.2 [place] % (Auto) 5.5 Eos % (Auto) 1.9 Baso % (Auto) 0.1 Absolute Neuts (auto) 5.9 Absolute Lymphs (auto) 1.88 Total Counted Not Reportable APTT 21.3 L Specimen Type pH Bicarbonate Actual POC Total CO2 Base Excess O2 Saturation ABG pCO2 ABG pO2 VBG pH VBG pO2 VBG O2 Sat (Calc) VBG O2 Content VBG Base Excess POC Mix VBG pCO2 Pt Tmp Sodium Potassium Chloride Carbon Dioxide Anion Gap BUN Creatinine Estim Creat Clear Calc Est GFR (MDRD) Af Amer Est GFR (MDRD) Non-Af BUN/Creatinine Ratio Glucose Hemoglobin A1c Calcium POC Glucose 194 H 12/30/17 12/30/17 12/30/17 04:40 04:40 05:32 WBC RBC Hgb Hct MCV MCH MCHC RDW RDW Differential Plt Count MPV Immature Gran % (Auto) Neut % (Auto) Lymph % (Auto) [place] % (Auto) Eos % (Auto) Baso % (Auto) Absolute Neuts (auto) Absolute Lymphs (auto) Total Counted APTT Specimen Type pH Bicarbonate Actual POC Total CO2 Base Excess O2 Saturation ABG pCO2 ABG pO2 VBG pH VBG pO2 VBG O2 Sat (Calc) VBG O2 Content VBG Base Excess POC Mix VBG pCO2 Pt Tmp Sodium 147 H Potassium 3.2 L Chloride 106 Carbon Dioxide 34.0 H Anion Gap 7 BUN 33 H Creatinine 0.63 L Estim Creat Clear Calc 122.14 Est GFR (MDRD) Af Amer 166 Est GFR (MDRD) Non-Af 137 BUN/Creatinine Ratio 52.1 H Glucose 108 H Hemoglobin A1c Pending Calcium 8.5 POC Glucose 108 Microbiology 12/23/17 08:50 Blood Culture (Wb) - Right Wrist Blood Culture - Final No growth in 5 days. 12/23/17 08:40 Blood Culture (Wb) - Line Draw Blood Culture - Final No growth in 5 days. Clinical Impression(s) from Imaging Studies Brain CT 12/12/17 07:34 IMPRESSION: No CT evidence of acute intracranial hemorrhage. Electronically Signed: Katya Wright MD at 8:54 EST , Service support , Chest X-Ray 12/12/17 07:40 IMPRESSION: Cardiomegaly and mild pulmonary congestion. Electronically Signed: Katya Wright MD at 8:02 EST , Service support , Chest X-Ray 12/15/17 06:34 IMPRESSION: All the support tubes are in good position. Residual increased markings in both lungs as described although there has been improvement as compared to prior study. Electronically Signed: Akhil Izquierdo MD at 11:07 EST Tel [phone], Service support , Chest X-Ray 12/16/17 12:08 IMPRESSION: Stable examination. Electronically Signed: Akhil Izquierdo MD at 12:39 EST Tel [phone], Service support , Chest X-Ray 12/19/17 07:17 IMPRESSION: Residual increased markings at the left lung base suggestive of atelectasis and/or infiltrate. The remainder of the examination is unremarkable. Electronically Signed: Akhil Izquierdo MD at 8:45 EST Tel [phone], Service support , Chest X-Ray 12/20/17 06:05 IMPRESSION: Stable position of the endotracheal tube and enterogastric tube. Progressive left lower lobe atelectasis and/or infiltrate. Electronically Signed: Akhil Izquierdo MD at 9:15 EST Tel [phone], Service support , Chest X-Ray 12/21/17 14:25 IMPRESSION: 1. Endotracheal tube tip is 5.5 cm above the byron. 2. Suboptimal ventilatory effort with stable platelike atelectasis at the left base and mild atelectasis on the right, as noted. Electronically Signed: Brayan Pretty MD at 15:36 EST , Service support , Chest X-Ray 12/21/17 15:00 IMPRESSION: Limited examination. The tip of the orogastric tube appears to be in the distal portion of the esophagus. Electronically Signed: Akhil Izquierdo MD at 15:49 EST Tel [phone], Service support , Chest X-Ray 12/22/17 06:00 IMPRESSION: Increased markings at the lung bases more prominent at the left lung base with blunting of left costophrenic angle. Mild increased markings in the right upper lobe. Follow-up is recommended. The tip of the endotracheal tube is at 5 cm proximal to the byron. Electronically Signed: Akhil Izquierdo MD at 9:46 EST Tel [phone], Service support , Chest X-Ray 12/22/17 11:01 IMPRESSION: 1. Nasogastric tube passes beneath the diaphragm, its tip outside the [id number]. 2. Endotracheal tube unchanged. 3. Improved atelectasis in the right base. Atelectasis on the left is unchanged. 4. Borderline cardiac enlargement. No CHF. Electronically Signed: Brayan Pretty MD at 12:14 EST , Service support , Chest X-Ray 12/22/17 18:29 IMPRESSION: Endotracheal tube ends 4 cm above the byron. Enteric tube is well below the gastroesophageal junction. Stable lung findings with 1 broad platelike area of atelectasis or infiltrate across the left lung base. Electronically Signed: Janessa Combs MD at 22:21 EST , Service support , KUB X-Ray 12/22/17 19:00 IMPRESSION: Orogastric tube placement with tip in gastric body Electronically Signed: Filemon Orona MD at 23:43 EST , Service support , Chest X-Ray 12/23/17 04:27 IMPRESSION: 1. Bilateral basilar airspace consolidation and atelectasis. 2. Right upper lobe subsegmental atelectasis. Electronically Signed: Katya Wright MD at 8:46 EST , Service support , Chest X-Ray 12/26/17 14:30 IMPRESSION: The tip of the tracheostomy is at 5.2 cm proximal to the byron. Alignment left basilar atelectasis with blunting of left costophrenic angle. Electronically Signed: Akhil Izquierdo MD at 15:10 EST Tel [phone], Service support , Chest CTA 12/26/17 15:01 IMPRESSION: Dense bilateral lower lobe infiltrates.. No evidence for pulmonary embolus ASHD. No evidence for aortic aneurysm Electronically Signed: Filemon Orona MD at 16:35 EST , Service support , Medical Necessity - Tobacco Use Smoking Status: Current every day smoker Assessment/Plan All Active Problems (Last Updated 12/25/17 @ 08:22 by Juan Manuel Subramanian DO) Aspiration pneumonia due to food (regurgitated) (Acute) Heart failure with preserved ejection fraction (Acute) GALILEA (acute kidney injury) (Acute) Klebsiella pneumonia (Acute) Acute respiratory failure with hypoxia and hypercapnia (Acute) Pneumococcal pneumonia (Acute) Metabolic encephalopathy (Resolved) Chest pain (Resolved) Respiratory failure, acute (Resolved) RECOMMENDATIONS: 1. Tentative plans for tracheostomy this morning. 2. Continue bronchodilators. 3. Continue subcutaneous heparin and Pepcid for prophylaxis. 4. Continue tube feeds and free water flushes. 5. Continue prednisone 40 mg daily via G-tube with plans for prolonged taper. 6. Gentle diuresis per cardiology recommendations. 7. Potassium repletion as ordered. IMPRESSIONS: 1. Acute on chronic combined respiratory failure Likely secondary to decompensated heart failure in the setting of medical noncompliance, with superimposed bronchospastic airway disease, ongoing tobacco dependence and aspiration pneumonia all contributing. The patient's hospital co urse to date has been complicated by 2 independent self extubations by the patient leading to aspiration of gastric contents. The patient has completed an antibiotic course accordingly. He has already undergone PEG tube placement and attempt was made on December 26 for tracheostomy placement. However, the patient desaturated in the OR leading to cancellation of the procedure. A follow-up CTA chest revealed no evidence for pulmonary embolism. The etiology for the patient's hypoxia was likely the consequence of alveolar derecruitment. Continue to wean FiO2 and PEEP as tolerated. Would plan to keep the patient's oxygen saturations 88-92%, to prevent paradoxical CO2 retention. Continue current sedation regimen as ordered. Tentative plans for tracheostomy placement this morning. 2. Metabolic encephalopathy Improved. Likely secondary to acute on chronic CO2 retention. Anticipate improvement with correction of the patient's underlying metabolic derangements. Minimize sedation as tolerated. 3. Decompensated heart failure/history of ischemic cardiomyopathy The patient's weight is significantly elevated when compared to that documented from November. The patient has been diuresed a great amount over his hospitalization. However, he has had a rising sodium level, for which his diuretic regimen had to be augmented. In addition, the patient's tube feeds were transitioned to an alternative formula to increase the amount of free water in his diet. The patient did undergo a cardiac catheterization on December 28, which revealed patent stents. 4. Diabetes mellitus Continue Accu-Cheks and sliding scale insulin coverage. 5. Obstructive sleep apnea The patient has a history of outpatient noncompliance with the use of nocturnal Pap therapy. He only utilizes supplemental oxygen on a nightly basis. 6. Ongoing tobacco dependence/super morbid obesity/history of medical noncompliance/hypertension Complicates care, management, recovery and prognosis. Nicotine replacement therapy can be utilized while admitted to the hospital. TIME: 35 minutes of critical care time, independent of procedures, was spent addressing the patient's acute on chronic combined respiratory failure, metabolic encephalopathy, decompensated heart failure, obstructive sleep apnea, review of all data and collaboration with the care team. ([id number]) Code Visit [id number]: [id number] Critical care first hour
--- NOTE | 2017-12-30 07:12 | PN_ITS ---
Patient Problems: Active and Suspected Problems (Last Updated 12/25/17 @ 08:22 by Juan Manuel Subramanian DO) Aspiration pneumonia due to food (regurgitated) (Acute) Subjective: Seen and examined in the morning and afternoon. Patient had tracheostomy. Initially had severe cough and secretions after tracheostomy but currently controlled. Blood pressure is running low and propofol on hold. On fentanyl drip. Currently on 50% FiO2 on ventilator through trach tube Vitals/I&O's: Vital Signs Temp Pulse Resp BP Pulse Ox 97.6 F L 68 14 112/60 91 12/30/17 06:00 12/30/17 06:31 12/30/17 06:31 12/30/17 06:00 12/30/17 06:31 Oxygen Flow Rate (L/min) 40 Oxygen Delivery Method Mechanical Ventilator Weight: 314 lb 6.067 oz Body Mass Index (BMI) 46.5 Finger Stick Blood Glucose 193 Intake and Output for Last 24 Hours 12/28/17 12/29/17 12/30/17 23:59 23:59 23:59 Intake Total 2100.1 / 2100.1 2392 / 2392 40 / 40 Output Total 3275 / 3275 1950 / 1950 200 / 200 Balance -1174.9 / -1174.9 442 / 442 -160 / -160 General: Cooperative, Lethargic HEENT: Atraumatic, PERRLA, EOMI, Normocephalic Oral: - - Tracheostomy tube. No active bleeding. Sutures in place. Neck: Supple, No JVD, Negative Carotid Bruits Lungs: Diminished, Rhonchi, - - On vent support Cardiovascular: Regular rate, Regular Rhythm, Normal S1, Normal S2, No murmurs Abdomen: Bowel Sounds Present, Soft, Non Tender, Non-Distended, - - Butler catheter draining clear urine Extremities: Capillary Refill Less than 3 Seconds, Edema, - Skin: No rashes, No breakdown Musculoskeletal: No Tenderness to Palpation of Joints or Extremities, Arthritic Changes, Muscle Wasting Neurological: Cranial nerves II-XII grossly intact Psych/Mental Status: Normal Affect, Appropriate Microbiology Past 72 Hours 12/23/17 08:50 Blood Culture (Wb) - Right Wrist Blood Culture - Final No growth in 5 days. 12/23/17 08:40 Blood Culture (Wb) - Line Draw Blood Culture - Final No growth in 5 days. Laboratory Results 12/29/17 07:00: Sodium 146 H, Potassium 3.6, Chloride 108 H, Carbon Dioxide 34.0 H, Anion Gap 4 L, BUN 33 H, Creatinine 0.75, Estim Creat Clear Calc 102.60, Est GFR (MDRD) Af Amer 137, Est GFR (MDRD) Non-Af 113, BUN/Creatinine Ratio 44.0 H, Glucose 157 H, Calcium 8.7 12/29/17 11:17: POC Glucose 173 H 12/29/17 17:06: POC Glucose 237 H 12/29/17 22:46: POC Glucose 194 H 12/30/17 04:40: WBC 8.5, RBC 4.39 L, Hgb 11.9 L, Hct 40.0, MCV 91.1, MCH 27.1, MCHC 29.8 L, RDW 15.1 H, RDW Differential 50.3 H, Plt Count 137 L, MPV 12.6 H, Immature Gran % (Auto) 0.800, Neut % (Auto) 69.5, Lymph % (Auto) 22.2, [place] % (Auto) 5.5, Eos % (Auto) 1.9, Baso % (Auto) 0.1, Absolute Neuts (auto) 5.9, Absolute Lymphs (auto) 1.88, Total Counted Not Reportable 12/30/17 04:40: APTT 21.3 L 12/30/17 04:40: Sodium 147 H, Potassium 3.2 L, Chloride 106, Carbon Dioxide 34.0 H, Anion Gap 7, BUN 33 H, Creatinine 0.63 L, Estim Creat Clear Calc 122.14, Est GFR (MDRD) Af Amer 166, Est GFR (MDRD) Non-Af 137, BUN/Creatinine Ratio 52.1 H, Glucose 108 H, Calcium 8.5 12/30/17 04:40: Hemoglobin A1c Pending 12/30/17 05:32: POC Glucose 108 Current Medications Acetaminophen (Tylenol Liquid) 650 mg GT Q6H PRN PRN PRN Reason: FEVER Last Admin: 12/24/17 00:16 Dose: 650 mg Albuterol Sulfate (Ventolin Aerosols) 2.5 mg INHALATION Q6HWA.RT JUANY Last Admin: 12/30/17 06:30 Dose: 2.5 mg Aspirin (Aspirin, Baby) 81 mg GT DAILY [facility] Last Admin: 12/29/17 09:20 Dose: 81 mg Atorvastatin Calcium (Lipitor) 40 mg GT QHS [facility] Last Admin: 12/29/17 22:04 Dose: 40 mg Chlorhexidine Gluconate () 15 ml PO BID [facility] Last Admin: 12/29/17 22:04 Dose: 15 ml Chlorhexidine Gluconate () 1 each TOPICAL DAILY [facility] Last Admin: 12/29/17 09:21 Dose: 1 each Clopidogrel Bisulfate (Plavix) 75 mg GT DAILY [facility] Last Admin: 12/29/17 09:20 Dose: 75 mg Dextrose (D50w Syringe) 0 gm IV X1 PRN; Protocol PRN Reason: Hypoglycemia Famotidine (Pepcid) 20 mg GT BID [facility] Last Admin: 12/29/17 22:05 Dose: 20 mg Furosemide (Lasix) 40 mg IV BID@1000,1800 [facility] Last Admin: 12/29/17 17:11 Dose: 40 mg Glucagon () 1 mg IM .X1 PRN PRN Reason: Hypoglycemia Heparin Sodium (Beef Lung) (Heparin 500 Unit/5 Ml (100/Ml)) 500 unit IV UD PRN PRN Reason: HEPARIN FLUSH Heparin Sodium (Porcine) (Heparin Na) 5,000 unit SC Q8 [facility] Last Admin: 12/30/17 05:36 Dose: Not Given Sodium Chloride () 250 mls @ 15 mls/hr IV .[id number] PRN PRN Reason: SALINE FLUSH Sodium Chloride () 250 mls @ 15 mls/hr IV .[id number] PRN PRN Reason: SALINE FLUSH Last Admin: 12/16/17 21:29 Dose: 15 mls/hr Propofol (Diprivan) 1,000 mg in 100 mls @ 9.852 mls/hr CONT INF .[id number] [facility] Last Admin: 12/30/17 00:58 Dose: 9.852 mls/hr Fentanyl () 100 mls @ 7.5 mls/hr IV .Q40H [facility] Last Admin: 12/30/17 00:59 Dose: 7.5 mls/hr Enteral Nutritional Formula (Vital Af 1.2 Jeremiah Liquid) 1,000 mls @ 65 mls/hr GT .[id number] [facility] Last Admin: 12/30/17 05:47 Dose: Not Given Sodium Chloride () 1,000 mls @ 0 mls/hr IV .Q0M JUANY Sodium Chloride () 1,000 mls @ 0 mls/hr IV .Q0M JUANY Potassium Chloride (Kcl 20meq/100ml) 20 meq in 100 mls @ 100 mls/hr IV Q1H JUANY Stop: 12/30/17 08:59 Insulin Glargine (Lantus (Bkc)) 30 units SC BID [facility] Last Admin: 12/29/17 22:56 Dose: 30 units Insulin Human Lispro (Humalog Kwikpen (Bkc)) 0 unit SC Q6 [facility]; Protocol Last Admin: 12/30/17 05:36 Dose: Not Given Labetalol HCl (Trandate) 5 mg IV X1 PRN PRN Reason: SBP > 160 prior to sheath pull Stop: 12/30/17 09:07 Magnesium Hydroxide (Milk Of Magnesia) 30 ml PO DAILY PRN PRN PRN Reason: Constipation Polyethylene Glycol (Miralax) 17 gm GT DAILY PRN PRN PRN Reason: Constipation Potassium Bicarb/Potassium Chloride (Potassium Chl 25 Meq Eff (For Liquid)) 25 meq GT DAILY [facility] Last Admin: 12/29/17 09:22 Dose: 25 meq Prednisone () 40 mg GT DAILY@0800 [facility] Last Admin: 12/29/17 09:22 Dose: 40 mg Sodium Chloride () 5 - 30 ml IV UD PRN PRN Reason: SALINE FLUSH Last Admin: 12/29/17 17:12 Dose: 20 ml Medical Necessity - Tobacco Use Smoking Status: Current every day smoker Assessment/Plan All Active Problems (Last Updated 12/25/17 @ 08:22 by Juan Manuel Subramanian DO) Aspiration pneumonia due to food (regurgitated) (Acute) Heart failure with preserved ejection fraction (Acute) GALILEA (acute kidney injury) (Acute) Klebsiella pneumonia (Acute) Acute respiratory failure with hypoxia and hypercapnia (Acute) Pneumococcal pneumonia (Acute) Metabolic encephalopathy (Resolved) Chest pain (Resolved) Respiratory failure, acute (Resolved) This is a 57 gentleman with multiple comorbidities including chronic combined respiratory failure, obstructive sleep apnea, CAD with multiple stents, history of cardiac arrest was admitted from senior care for shortness of breath for 5 days prior to admission. Initial chest x-ray showed pulmonary congestion. EKG in the ED shows sinus rhythm with diffuse T wave inversions and initial troponin 0.022. Patient was emergently intubated in ED and admitted to ICU for respiratory arrest. 1 acute on chronic hypoxic and hypercarbic combined respiratory failure: Currently patient is euvolemic. On patient is 50% FiO2. Ventilatory being managed by occupational health coordinator. Patient had tracheostomy today by Dr. Bazzi. On tracheostomy suction. Still on vent support 2. Bilateral right lower lobe and left lower lobe Streptococcus pneumoniae and Klebsiella oxytoca pneumonia, right upper lobe subsegmental atelectasis: Patient on Levaquin since . Pulmonary tolerating. 3. Acute systolic and diastolic heart failure most probably ischemic cardiomyopathy: Currently euvolemic (EF 25% by LV gram). EF 60% on echo 12/12 but echo was suboptimal. Lasix 40 mg IV twice daily. Patient had LAD stent in 2012, proximal LAD in February 2016 for in-stent stenosis and then left circumflex in June 2017. Patient also has moderate global LV dysfunction with right ventricular enlargement. The patient had right and left heart cath by Dr. Li on 12/28 with EF 25% by LV gram shows severe global LV systolic dysfunction, nonobstructive coronary artery with patent venous stents has normal pulmonary hemodynamics parameter. Right-sided pressures normal. 4. Electrolyte imbalance: Hyponatremia, hypochloremia: Sodium 150, chloride 111, K3.9. Free water supplement. 5. Acute kidney injury: Currently creatinine 0.83, BUN 42. Estimated creatinine clearance 92. GALILEA resolved. 6. Fevers no fever since 12/25. Low-grade fever in the morning hours of 12/25, T-max 99.8. * BCx on 12/12 and 12/23 negative * TTE on the negative * UA negative x 3. urine culture of 12/12 no growth. Urine culture, preliminary from 12/23 shows yeastlike organism * Sputum culture positive of Streptococcus pneumoniae, Klebsiella oxytoca and yeast. * * BCx negative on the and 7. Diabetes mellitus type 2: Blood sugar is reasonably controlled. Less than 200 mg/dL. Blood sugars are running lower side, 70 and 80 mg/dL on Accu-Cheks. Lantus decreased to 30 units subcu twice daily on Accu-Chek before meals and at bedtime covered with insulin lispro. 8. DVT prophylaxis: Heparin 5000 units every 8 hourly Discharge plan: Anticipate LTAC after tracheostomy Hospital course and overall management plan discussed with patient's friend and power of senior trial attorney, . [place] near the bedside. Microbiology Past 72 Hours 12/23/17 08:50 Blood Culture (Wb) - Right Wrist Blood Culture - Final No growth in 5 days. 12/23/17 08:40 Blood Culture (Wb) - Line Draw Blood Culture - Final No growth in 5 days. Laboratory Results 1 12/30/17 04:40: WBC 8.5, RBC 4.39 L, Hgb 11.9 L, Hct 40.0, MCV 91.1, MCH 27.1, MCHC 29.8 L, RDW 15.1 H, RDW Differential 50.3 H, Plt Count 137 L, MPV 12.6 H, Immature Gran % (Auto) 0.800, Neut % (Auto) 69.5, Lymph % (Auto) 22.2, [place] % (Auto) 5.5, Eos % (Auto) 1.9, Baso % (Auto) 0.1, Absolute Neuts (auto) 5.9, Absolute Lymphs (auto) 1.88, Total Counted Not Reportable 12/30/17 04:40: APTT 21.3 L 12/30/17 04:40: Sodium 147 H, Potassium 3.2 L, Chloride 106, Carbon Dioxide 34.0 H, Anion Gap 7, BUN 33 H, Creatinine 0.63 L, Estim Creat Clear Calc 122.14, Est GFR (MDRD) Af Amer 166, Est GFR (MDRD) Non-Af 137, BUN/Creatinine Ratio 52.1 H, Glucose 108 H, Calcium 8.5 12/30/17 04:40: Hemoglobin A1c 7.7 H 12/30/17 05:32: POC Glucose 108 12/30/17 09:00: POC Glucose 87 12/30/17 12:28: POC Glucose 102 Active Medications Acetaminophen (Tylenol Liquid) 650 mg GT Q6H PRN PRN PRN Reason: FEVER Last Admin: 12/24/17 00:16 Dose: 650 mg Albuterol Sulfate (Ventolin Aerosols) 2.5 mg INHALATION Q6HWA.RT JUANY Last Admin: 12/30/17 13:23 Dose: 2.5 mg Aspirin (Aspirin, Baby) 81 mg GT DAILY [facility] Last Admin: 12/30/17 14:44 Dose: 81 mg Atorvastatin Calcium (Lipitor) 40 mg GT QHS [facility] Last Admin: 12/29/17 22:04 Dose: 40 mg Chlorhexidine Gluconate () 15 ml PO BID [facility] Last Admin: 12/30/17 14:44 Dose: 15 ml Chlorhexidine Gluconate () 1 each TOPICAL DAILY [facility] Last Admin: 12/30/17 08:30 Dose: 1 each Clopidogrel Bisulfate (Plavix) 75 mg GT DAILY [facility] Last Admin: 12/30/17 14:45 Dose: 75 mg Dextrose (D50w Syringe) 0 gm IV X1 PRN; Protocol PRN Reason: Hypoglycemia Famotidine (Pepcid) 20 mg GT BID [facility] Last Admin: 12/30/17 14:44 Dose: 20 mg Furosemide (Lasix) 40 mg IV BID@1000,1800 [facility] Last Admin: 12/29/17 17:11 Dose: 40 mg Glucagon () 1 mg IM .X1 PRN PRN Reason: Hypoglycemia Heparin Sodium (Beef Lung) (Heparin 500 Unit/5 Ml (100/Ml)) 500 unit IV UD PRN PRN Reason: HEPARIN FLUSH Heparin Sodium (Porcine) (Heparin Na) 5,000 unit SC Q8 [facility] Last Admin: 12/30/17 14:46 Dose: Not Given Sodium Chloride () 250 mls @ 15 mls/hr IV .[id number] PRN PRN Reason: SALINE FLUSH Sodium Chloride () 250 mls @ 15 mls/hr IV .[id number] PRN PRN Reason: SALINE FLUSH Last Admin: 12/16/17 21:29 Dose: 15 mls/hr Fentanyl () 100 mls @ 7.5 mls/hr IV .Q40H [facility] Last Admin: 12/30/17 00:59 Dose: 7.5 mls/hr Enteral Nutritional Formula (Vital Af 1.2 Jeremiah Liquid) 1,000 mls @ 65 mls/hr GT .[id number] [facility] Last Admin: 12/30/17 14:46 Dose: 65 mls/hr Sodium Chloride () 1,000 mls @ 0 mls/hr IV .Q0M [facility] Sodium Chloride () 1,000 mls @ 0 mls/hr IV .Q0M [facility] Propofol (Diprivan) 1,000 mg in 100 mls @ 9.852 mls/hr CONT INF .[id number] [facility] Last Admin: 12/30/17 14:45 Dose: 9.852 mls/hr Insulin Glargine (Lantus (Bk)) 30 units SC BID [facility] Last Admin: 12/30/17 12:36 Dose: Not Given Insulin Human Lispro (Humalog Kwikpen (Bk)) 0 unit SC Q6 [facility]; Protocol Last Admin: 12/30/17 12:35 Dose: Not Given Magnesium Hydroxide (Milk Of Magnesia) 30 ml PO DAILY PRN PRN PRN Reason: Constipation Polyethylene Glycol (Miralax) 17 gm GT DAILY PRN PRN PRN Reason: Constipation Potassium Bicarb/Potassium Chloride (Potassium Chl 25 Meq Eff (For Liquid)) 25 meq GT DAILY [facility] Last Admin: 12/30/17 14:45 Dose: 25 meq Prednisone () 40 mg GT DAILY@0800 [facility] Last Admin: 12/30/17 14:43 Dose: 40 mg Sodium Chloride () 5 - 30 ml IV UD PRN PRN Reason: SALINE FLUSH Last Admin: 12/29/17 17:12 Dose: 20 ml Code Visit Inpatient E&M: 10747 Init Hosp L3
--- NOTE | 2017-12-30 07:23 | PN.CARD_ITS ---
Subjectve: Patient seen and evaluated. Scheduled for tracheostomy today Objective: Vital Signs Temp Pulse Resp BP Pulse Ox 97.6 F L 68 14 112/60 91 12/30/17 06:00 12/30/17 06:31 12/30/17 06:31 12/30/17 06:00 12/30/17 06:31 Oxygen Flow Rate (L/min) 40 Oxygen Delivery Method Mechanical Ventilator Weight: 314 lb 6.067 oz Body Mass Index (BMI) 46.5 Finger Stick Blood Glucose 193 Intake and Output for Last 24 Hours 12/28/17 12/29/17 12/30/17 23:59 23:59 23:59 Intake Total 2100.1 / 2100.1 2392 / 2392 40 / 40 Output Total 3275 / 3275 1950 / 1950 200 / 200 Balance -1174.9 / -1174.9 442 / 442 -160 / -160 General: Awake HEENT: PERRL, EOMI, Sclera Non Icteric Neck: Supple, Good ROM, No Lymph Node Enlargement Lungs: Clear to auscultation Cardiovascular: Regular Rhythm, Normal S1, Normal S2, No Murmurs, No Rubs, No Gallops Vascular: No Carotid Bruits, Normal Femoral Pulses, Normal Radial Pulses, Normal Dorsalis Pedal Pulse, Normal Posterior Tibial Pulses Abdomen: Bowel Sounds Present, Soft, Non Tender, No HSM, No Organomegaly Extremities: No Cyanosis, No Clubbing, No edema Neurological: No Focal Motor or Sensory Deficit 12/29/17 07:00: Sodium 146 H, Potassium 3.6, Chloride 108 H, Carbon Dioxide 34.0 H, Anion Gap 4 L, BUN 33 H, Creatinine 0.75, Est GFR (MDRD) Af Amer 137, Est GFR (MDRD) Non-Af 113, BUN/Creatinine Ratio 44.0 H, Glucose 157 H, Calcium 8.7 12/30/17 04:40: WBC 8.5, RBC 4.39 L, Hgb 11.9 L, Hct 40.0, MCV 91.1, MCH 27.1, MCHC 29.8 L, RDW 15.1 H, RDW Differential 50.3 H, Plt Count 137 L, MPV 12.6 H, Immature Gran % (Auto) 0.800, Neut % (Auto) 69.5, Lymph % (Auto) 22.2, [place]igg % (Auto) 5.5, Eos % (Auto) 1.9, Baso % (Auto) 0.1, Absolute Neuts (auto) 5.9, Total Counted Not Reportable 12/30/17 04:40: APTT 21.3 L 12/30/17 04:40: Sodium 147 H, Potassium 3.2 L, Chloride 106, Carbon Dioxide 34.0 H, Anion Gap 7, BUN 33 H, Creatinine 0.63 L, Est GFR (MDRD) Af Amer 166, Est GFR (MDRD) Non-Af 137, BUN/Creatinine Ratio 52.1 H, Glucose 108 H, Calcium 8.5 Medical Necessity - Tobacco Use Smoking Status: Current every day smoker Assessment/Plan 1. Atherosclerosis of [place] coronary artery of [place] heart without angina pectoris I25.10 PCI/stent LAD w/ 4.0 x 32 mm Promus 2012; PCI/GISSEL to Prox LAD w/ 4.0 x 20 mm Promus 02/25/16 for instent restenosis; PTCA/GISSEL to LCx in June 2017; The patient has known history of the prior. He underwent a cardiac catheterization which demonstrated nonobstructive coronary anatomy. His ejection fraction was noted to be lower. His pulmonary pressures were however noted to be normal. At this time I would not recommend any coronary intervention. Can proceed with tracheostomy placement. 2. Acute on chronic respiratory failure * The exact precipitating events are not entirely clear at this time. His most recent echocardiogram had demonstrated an ejection fraction of approximately 60%. This appears to be lower on the cardiac catheterization however. No obvious wall motion abnormality was noted but this is a suboptimal study. * Will continue current medical therapy as per the pulmonary service. * 3. Hypertension * His blood pressure medications will be adjusted as appropriate * 4 Hyperlipidemia * Continue aggressive medical therapy. Thank you for allowing me to participate in the care of your patient. Please don't hesitate to call if any issues arise
[2017-12-30 08:24] LABS: Hemoglobin A1c 7.7 % (4.2-6.3)
[2017-12-30] MEDS: CHLORHEXIDINE GLUC 2% CLOTH 1 EACH TOWELETTE TOPICAL (08:30)
[2017-12-30 09:06] LABS: Bedside Glucose 87 mg/dL (70-110)
--- NOTE | 2017-12-30 09:40 | NURSING ---
to OR on monitor on bed. OR staff in attendance
--- NOTE | 2017-12-30 11:06 | RAD_ITS ---
STUDY: X-RAY CHEST REASON FOR EXAM: Male, 57 years old. Tracheostomy placement. Evaluate for pneumothorax. TECHNIQUE: AP upright chest COMPARISON: CT chest 12/26/2017 FINDINGS: Tracheostomy tube tip reflects within tracheal air stripe. There is no pneumothorax. No effusion. There is evidence of bibasilar atelectasis. Mild cardiomegaly. Normal mediastinal silhouette, marta and pleural margins. No acute osseous or upper abdominal process. RAD/Chest 1 View (Portable) IMPRESSION: The tracheostomy tube appears to be well positioned. No visible pneumothorax. Electronically Signed: Julio Navas, at 11:59 EST Tel , Service support ,
--- NOTE | 2017-12-30 11:20 | NURSING ---
return from OR, OR staff in attendance
--- NOTE | 2017-12-30 11:24 | PCM.OPRPT ---
Report of Operation Date of Procedure: 12/30/17 Pre-Operative Diagnosis: respiratory failure/prolonged ventilation Post-Operative Diagnosis: same Surgery/Procedure Performed:: Tracheotomy Description of Surgical Findings:: #8 DATA SYSTEMS ANALYST placed Type of Anesthesia:: General Anesthesiologist: Juan Manuel Chappell Specimen's removed: none Estimated Blood Loss (mL): minimal Description of Procedure: The patient was taken to the OR on 12/30/17. He was placed in the supine position on the OR table. He was given sufficient general anesthesia. The skin was prepped and draped steriley. 1% lidocaine with epinephrine (1:110072) was injected into the skin. I then made a 4 cm incision with a 15 blade just above the sternal notch. Hemostasis was achieved with monopolar cautery. I then removed fat from the neck with a Bovie. The midline was identified and the strap muscles were skeletonized. They were then lateralized with Allis clamps. A large vein superficial to the thyroid was clamped, cut and ligated with 3-0 silk. The cricoid cartilage was identified. A plane was established deep the thyroid isthmus with blunt dissection. The isthmus was clamped, cut with a bovie and suture ligated with 2-0 chromic. The isthmus was then lateralized on each side with [facility] retractors. Next, the second tracheal window was identified. The cuff was deflated. A cricoid hook was placed on the cricoid and elevated superiorly. I cut a window out of the second tracheal ring with a 15 blade. The window was removed. I split the third tracheal ring with a Urbano scissors. A trach meat blender was then used. The ETT tube was backed out to above the window. A #8 DATA SYSTEMS ANALYST was placed and the obturator was removed. The inner canula was placed and the circuit was connected. We immediately saw end tidal CO2. The cuff was inflated. The retractors were removed. I placed a 4-0 Vicryl stitch subcutaneously on each side to narrow the skin opening. We then sewed the trach tube to the skin with 3-0 Nylon. Trach ties were placed around the neck and the tube was secured with the ties. The procedure was terminated. He was removed from the OR and brought to the ICU in stable condition. Blood loss minimal, replacement none. Sponge, needle and instrument count were correct at the end of the procedure.
--- NOTE | 2017-12-30 11:36 | OP.PCM_ITS ---
Report of Operation Date of Procedure: 12/30/17 Pre-Operative Diagnosis: respiratory failure/prolonged ventilation Post-Operative Diagnosis: same Surgery/Procedure Performed:: Tracheotomy Description of Surgical Findings:: #8 SUGAR CANE PLANTER MACHINE OPERATOR placed Type of Anesthesia:: General Anesthesiologist: Juan Manuel Chappell Specimen's removed: none Estimated Blood Loss (mL): minimal Description of Procedure: The patient was taken to the OR on 12/30/17. He was placed in the supine position on the OR table. He was given sufficient general anesthesia. The skin was prepped and draped steriley. 1% lidocaine with epinephrine (1:535573) was injected into the skin. I then made a 4 cm incision with a 15 blade just above the sternal notch. Hemostasis was achieved with monopolar cautery. I then removed fat from the neck with a Bovie. The midline was identified and the strap muscles were skeletonized. They were then lateralized with Allis clamps. A large vein superficial to the thyroid was clamped, cut and ligated with 3-0 silk. The cricoid cartilage was identified. A plane was established deep the thyroid isthmus with blunt dissection. The isthmus was clamped, cut with a bovie and suture ligated with 2-0 chromic. The isthmus was then lateralized on each side with [facility] retractors. Next, the second tracheal window was i dentified. The cuff was deflated. A cricoid hook was placed on the cricoid and elevated superiorly. I cut a window out of the second tracheal ring with a 15 blade. The window was removed. I split the third tracheal ring with a Urbano scissors. A trach equine pharmacology technician was then used. The ETT tube was backed out to above the window. A #8 SUGAR CANE PLANTER MACHINE OPERATOR was placed and the obturator was removed. The inner canula was placed and the circuit was connected. We immediately saw end tidal CO2. The cuff was inflated. The retractors were removed. I placed a 4-0 Vicryl stitch subcutaneously on each side to narrow the skin opening. We then sewed the trach tube to the skin with 3-0 Nylon. Trach ties were placed around the neck and the tube was secured with the ties. The procedure was terminated. He was removed from the OR and brought to the ICU in stable condition. Blood loss minimal, replacement none. Sponge, needle and instrument count were correct at the end of the procedure.
--- NOTE | 2017-12-30 13:15 | CASEMGMT ---
Addendum entered by Soheila Perry 12/30/17 14:10: Updated clinical information also faxed. Original Note: CECIL BERMUDEZ NOTE: Trach operative note faxed to [facility]. Call placed to Cheli, educational coordinator and she was made aware pt received trach today and that trach info was faxed. She stated she will start application for prior auth. Timi ALAN RN CM
[2017-12-30] MEDS: predniSONE 20 MG Tablet 40 MG GT (14:43)
[2017-12-30] MEDS: Aspirin 81 MG TAB.CHEW GT (14:44)
[2017-12-30] MEDS: Famotidine 20 MG Tablet GT ×2 (14:44→21:05)
[2017-12-30] MEDS: Chlorhexidine 15 ML PO ×2 (14:44→21:04)
[2017-12-30] MEDS: Clopidogrel Bisulfate 75 MG Tablet GT (14:45)
[2017-12-30] MEDS: Vital AF 1.2 Cal Liquid 1,000 ML 65 ML GT (14:46)
[2017-12-30 15:46] LABS: Bedside Glucose 102 mg/dL (70-110)
[2017-12-30] MEDS: 0.9% NaCl Peripheral Flush Adult/Peds IV ×2 (18:16→18:30)
[2017-12-30] MEDS: Furosemide 40 MG/4 ML Vial IV (18:16)
[2017-12-30] MEDS: Insulin Lispro 100 UNIT/ML INSULN.PEN SC (18:30)
[2017-12-30 18:51] LABS: Bedside Glucose 151 mg/dL (70-110)
[2017-12-30] MEDS: Atorvastatin Calcium 40 MG Tablet GT (21:05)
[2017-12-30] MEDS: Heparin Injection (Vial) 5,000 UNIT/ML VIAL 5000 UNIT SC (21:05)
[2017-12-30 21:15] LABS: Bedside Glucose 220 mg/dL (70-110)
[2017-12-31] VITALS (36 sets, daily range): BP systolic 82–120; BP diastolic 21–75; PULSE 52–94; RESP 14–30; TEMP 36.4–37; O2SAT 30–98
[2017-12-31] MEDS: Insulin Lispro 100 UNIT/ML INSULN.PEN SC ×4 (00:25→18:19)
[2017-12-31 00:30] LABS: Bedside Glucose 224 mg/dL (70-110)
[2017-12-31] MEDS: Vital AF 1.2 Cal Liquid 1,000 ML 65 ML GT ×2 (05:11→21:45)
[2017-12-31] MEDS: Heparin Injection (Vial) 5,000 UNIT/ML VIAL 5000 UNIT SC ×3 (05:12→21:44)
--- NOTE | 2017-12-31 06:23 | PCM.PN.INT ---
Subjective: The patient was seen and examined at the bedside this morning. Events from the last 24 hours have been reviewed. The patient is currently afebrile, hemodynamically stable and maintaining appropriate oxygen saturations on a 40% trach collar. The patient underwent successful tracheostomy placement yesterday. No overnight issues were identified by the nursing staff. The patient remains on assist control mode of mechanical ventilation, with plans to transition him to CPAP this morning. Objective: The patient's most recent lab work, culture data and imaging studies have all been personally reviewed. Respiratory viral panel was negative. Surface echocardiogram revealed normal LV size and function with an ejection fraction of 60%. Sputum culture dated December 13 revealed evidence of Streptococcus pneumoniae. Repeat sputum culture dated December 16 was positive for Klebsiella. CTA chest dated December 26 revealed no evidence for pulmonary embolism, but did demonstrate bilateral lower lobe infiltrates. General: Alert, Cooperative, No apparent distress HEENT: Atraumatic, PERRLA, Normocephalic Oral: No Gingival or Mucosal Lesions/ Ulcerations Neck: Supple, No Nodes, Trachea Midline, - - Trach site intact Lungs: No rhonchi, No wheeze, No rales, Diminished Cardiovascular: Regular rate, Regular Rhythm, Normal S1, Normal S2, No murmurs Abdomen: Bowel Sounds Present, Soft, Non Tender, Obese, - - PEG site is C/D/I Extremities: No clubbing, No cyanosis, Edema - Trace Skin: - - No significant change from previous. Musculoskeletal: No Tenderness to Palpation of Joints or Extremities, No Muscle Wasting Lymphatic: No Cervical, Supraclavicular, or Inguinal Adenopathy Neurological: Neuro grossly intact Vital Signs Temp Pulse Resp BP Pulse Ox 36.6 C 73 15 97/58 L 95 12/31/17 00:00 12/31/17 06:00 12/31/17 06:00 12/31/17 06:00 12/31/17 06:00 Oxygen Flow Rate (L/min) 40 Oxygen Delivery Method Trach Collar Weight: 305 lb 5.443 oz Body Mass Index (BMI) 45.8 Finger Stick Blood Glucose 193 Intake and Output for Last 24 Hours 12/29/17 12/30/17 12/31/17 23:59 23:59 23:59 Intake Total 2392 / 2392 1088 / 1088 581.7 / 581.7 Output Total 1950 / 1950 525 / 525 600 / 600 Balance 442 / 442 563 / 563 -18.3 / -18.3 Labs (Last 48 Hours) 12/29/17 12/29/17 12/29/17 06:15 07:00 11:17 WBC RBC Hgb Hct MCV MCH MCHC RDW RDW Differential Plt Count MPV Immature Gran % (Auto) Neut % (Auto) Lymph % (Auto) [place] % (Auto) Eos % (Auto) Baso % (Auto) Absolute Neuts (auto) Absolute Lymphs (auto) Total Counted APTT Sodium 146 H Potassium 3.6 Chloride 108 H Carbon Dioxide 34.0 H Anion Gap 4 L BUN 33 H Creatinine 0.75 Estim Creat Clear Calc 102.60 Est GFR (MDRD) Af Amer 137 Est GFR (MDRD) Non-Af 113 BUN/Creatinine Ratio 44.0 H Glucose 157 H Hemoglobin A1c Calcium 8.7 POC Glucose 171 H 173 H 12/29/17 12/29/17 12/30/17 17:06 22:46 04:40 WBC 8.5 RBC 4.39 L Hgb 11.9 L Hct 40.0 MCV 91.1 MCH 27.1 MCHC 29.8 L RDW 15.1 H RDW Differential 50.3 H Plt Count 137 L MPV 12.6 H Immature Gran % (Auto) 0.800 Neut % (Auto) 69.5 Lymph % (Auto) 22.2 [place] % (Auto) 5.5 Eos % (Auto) 1.9 Baso % (Auto) 0.1 Absolute Neuts (auto) 5.9 Absolute Lymphs (auto) 1.88 Total Counted Not Reportable APTT Sodium Potassium Chloride Carbon Dioxide Anion Gap BUN Creatinine Estim Creat Clear Calc Est GFR (MDRD) Af Amer Est GFR (MDRD) Non-Af BUN/Creatinine Ratio Glucose Hemoglobin A1c Calcium POC Glucose 237 H 194 H 12/30/17 12/30/17 12/30/17 04:40 04:40 04:40 WBC RBC Hgb Hct MCV MCH MCHC RDW RDW Differential Plt Count MPV Immature Gran % (Auto) Neut % (Auto) Lymph % (Auto) [place] % (Auto) Eos % (Auto) Baso % (Auto) Absolute Neuts (auto) Absolute Lymphs (auto) Total Counted APTT 21.3 L Sodium 147 H Potassium 3.2 L Chloride 106 Carbon Dioxide 34.0 H Anion Gap 7 BUN 33 H Creatinine 0.63 L Estim Creat Clear Calc 122.14 Est GFR (MDRD) Af Amer 166 Est GFR (MDRD) Non-Af 137 BUN/Creatinine Ratio 52.1 H Glucose 108 H Hemoglobin A1c 7.7 H Calcium 8.5 POC Glucose 12/30/17 12/30/17 12/30/17 05:32 09:00 12:28 WBC RBC Hgb Hct MCV MCH MCHC RDW RDW Differential Plt Count MPV Immature Gran % (Auto) Neut % (Auto) Lymph % (Auto) [place] % (Auto) Eos % (Auto) Baso % (Auto) Absolute Neuts (auto) Absolute Lymphs (auto) Total Counted APTT Sodium Potassium Chloride Carbon Dioxide Anion Gap BUN Creatinine Estim Creat Clear Calc Est GFR (MDRD) Af Amer Est GFR (MDRD) Non-Af BUN/Creatinine Ratio Glucose Hemoglobin A1c Calcium POC Glucose 108 87 102 12/30/17 12/30/17 12/31/17 18:28 21:11 00:21 WBC RBC Hgb Hct MCV MCH MCHC RDW RDW Differential Plt Count MPV Immature Gran % (Auto) Neut % (Auto) Lymph % (Auto) [place] % (Auto) Eos % (Auto) Baso % (Auto) Absolute Neuts (auto) Absolute Lymphs (auto) Total Counted APTT Sodium Potassium Chloride Carbon Dioxide Anion Gap BUN Creatinine Estim Creat Clear Calc Est GFR (MDRD) Af Amer Est GFR (MDRD) Non-Af BUN/Creatinine Ratio Glucose Hemoglobin A1c Calcium POC Glucose 151 H 220 H 224 H Clinical Impression(s) from Imaging Studies Brain CT 12/12/17 07:34 IMPRESSION: No CT evidence of acute intracranial hemorrhage. Electronically Signed: Katya Wright MD at 8:54 EST , Service support , Chest X-Ray 12/12/17 07:40 IMPRESSION: Cardiomegaly and mild pulmonary congestion. Electronically Signed: Katya Wright MD at 8:02 EST , Service support , Chest X-Ray 12/15/17 06:34 IMPRESSION: All the support tubes are in good position. Residual increased markings in both lungs as described although there has been improvement as compared to prior study. Electronically Signed: Akhil Izquierdo MD at 11:07 EST Tel [phone], Service support , Chest X-Ray 12/16/17 12:08 IMPRESSION: Stable examination. Electronically Signed: Akhil Izquierdo MD at 12:39 EST Tel [phone], Service support , Chest X-Ray 12/19/17 07:17 IMPRESSION: Residual increased markings at the left lung base suggestive of atelectasis and/or infiltrate. The remainder of the examination is unremarkable. Electronically Signed: Akhil Izquierdo MD at 8:45 EST Tel [phone], Service support , Chest X-Ray 12/20/17 06:05 IMPRESSION: Stable position of the endotracheal tube and enterogastric tube. Progressive left lower lobe atelectasis and/or infiltrate. Electronically Signed: Akhil Izquierdo MD at 9:15 EST Tel [phone], Service support , Chest X-Ray 12/21/17 14:25 IMPRESSION: 1. Endotracheal tube tip is 5.5 cm above the byron. 2. Suboptimal ventilatory effort with stable platelike atelectasis at the left base and mild atelectasis on the right, as noted. Electronically Signed: Brayan Pretty MD at 15:36 EST , Service support , Chest X-Ray 12/21/17 15:00 IMPRESSION: Limited examination. The tip of the orogastric tube appears to be in the distal portion of the esophagus. Electronically Signed: Akhil Izquierdo MD at 15:49 EST Tel [phone], Service support , Chest X-Ray 12/22/17 06:00 IMPRESSION: Increased markings at the lung bases more prominent at the left lung base with blunting of left costophrenic angle. Mild increased markings in the right upper lobe. Follow-up is recommended. The tip of the endotracheal tube is at 5 cm proximal to the byron. Electronically Signed: Akhil Izquierdo MD at 9:46 EST Tel [phone], Service support , Chest X-Ray 12/22/17 11:01 IMPRESSION: 1. Nasogastric tube passes beneath the diaphragm, its tip outside the [id number]. 2. Endotracheal tube unchanged. 3. Improved atelectasis in the right base. Atelectasis on the left is unchanged. 4. Borderline cardiac enlargement. No CHF. Electronically Signed: Brayan Pretty MD at 12:14 EST , Service support , Chest X-Ray 12/22/17 18:29 IMPRESSION: Endotracheal tube ends 4 cm above the byron. Enteric tube is well below the gastroesophageal junction. Stable lung findings with 1 broad platelike area of atelectasis or infiltrate across the left lung base. Electronically Signed: Janessa Combs MD at 22:21 EST , Service support , KUB X-Ray 12/22/17 19:00 IMPRESSION: Orogastric tube placement with tip in gastric body Electronically Signed: Filemon Orona MD at 23:43 EST , Service support , Chest X-Ray 12/23/17 04:27 IMPRESSION: 1. Bilateral basilar airspace consolidation and atelectasis. 2. Right upper lobe subsegmental atelectasis. Electronically Signed: Katya Wright MD at 8:46 EST , Service support , Chest X-Ray 12/26/17 14:30 IMPRESSION: The tip of the tracheostomy is at 5.2 cm proximal to the byron. Alignment left basilar atelectasis with blunting of left costophrenic angle. Electronically Signed: Akhil Izquierdo MD at 15:10 EST Tel [phone], Service support , Chest CTA 12/26/17 15:01 IMPRESSION: Dense bilateral lower lobe infiltrates.. No evidence for pulmonary embolus ASHD. No evidence for aortic aneurysm Electronically Signed: Filemon Orona MD at 16:35 EST , Service support , Chest X-Ray 12/30/17 11:06 IMPRESSION: The tracheostomy tube appears to be well positioned. No visible pneumothorax. Electronically Signed: Julio Navas at 11:59 EST Tel , Service support , Medical Necessity - Tobacco Use Smoking Status: Current every day smoker Assessment/Plan All Active Problems (Last Updated 12/25/17 @ 08:22 by Juan Manuel Subramanian DO) Aspiration pneumonia due to food (regurgitated) (Acute) Heart failure with preserved ejection fraction (Acute) GALILEA (acute kidney injury) (Acute) Klebsiella pneumonia (Acute) Acute respiratory failure with hypoxia and hypercapnia (Acute) Pneumococcal pneumonia (Acute) Metabolic encephalopathy (Resolved) Chest pain (Resolved) Respiratory failure, acute (Resolved) RECOMMENDATIONS: 1. Transition patient from AC to CPAP this morning. 2. Maintain patient on CPAP as long as possible throughout the day with plans to transition back to full mechanical ventilatory support tonight. 3. Continue bronchodilators. 4. Continue subcutaneous heparin and Pepcid for prophylaxis. 5. Continue tube feeds and free water flushes. 6. Continue prednisone 40 mg daily via G-tube with plans for prolonged taper. 7. Gentle diuresis per cardiology recommendations. IMPRESSIONS: 1. Acute on chronic combined respiratory failure Likely secondary to decompensated heart failure in the setting of medical noncompliance, with superimposed bronchospastic airway disease, ongoing tobacco dependence and aspiration pneumonia all contributing. The patient's hospital course to date has been complicated by 2 independent self extubations by the patient leading to aspiration of gastric contents. The patient has completed an antibiotic course accordingly. He has already undergone PEG tube placement. A follow-up CTA chest revealed no evidence for pulmonary embolism. Would plan to keep the patient's oxygen saturations 88-92%, to prevent paradoxical CO2 retention. The patient underwent successful tracheostomy placement on December 30. Would plan to transition from assist control to CPAP today as tolerated by the patient. Place back on full mechanical ventilatory support tonight. Discontinue continuous fentanyl drip. 2. Metabolic encephalopathy Improved. Likely secondary to acute on chronic CO2 retention. Anticipate improvement with correction of the patient's underlying metabolic derangements. Minimize sedation as tolerated. 3. Decompensated heart failure/history of ischemic cardiomyopathy The patient's weight is significantly elevated when compared to that documented from November. The patient has been diuresed a great amount over his hospitalization. However, he has had a rising sodium level, for which his diuretic regimen had to be augmented. In addition, the patient's tube feeds were transitioned to an alternative formula to increase the amount of free water in his diet. The patient did undergo a cardiac catheterization on December 28, which revealed patent stents. 4. Diabetes mellitus Continue Accu-Cheks and sliding scale insulin coverage. 5. Obstructive sleep apnea The patient has a history of outpatient noncompliance with the use of nocturnal Pap therapy. He only utilizes supplemental oxygen on a nightly basis. 6. Ongoing tobacco dependence/super morbid obesity/history of medical noncompliance/hypertension Complicates care, management, recovery and prognosis. Nicotine replacement therapy can be utilized while admitted to the hospital. TIME: 35 minutes of critical care time, independent of procedures, was spent addressing the patient's acute on chronic combined respiratory failure, metabolic encephalopathy, decompensated heart failure, obstructive sleep apnea, review of all data and collaboration with the care team. ([id number]) Code Visit 9xxxx: [id number] Critical care first hour
[2017-12-31] MEDS: Albuterol 2.5 MG/3 ML VIAL.NEB. INHALATION ×3 (06:27→18:36)
[2017-12-31] MEDS: CHLORHEXIDINE GLUC 2% CLOTH 1 EACH TOWELETTE TOPICAL (07:00)
[2017-12-31 07:15] LABS: Bedside Glucose 194 mg/dL (70-110)
--- NOTE | 2017-12-31 07:19 | PCM.PROGNOTE ---
Patient Problems: Active and Suspected Problems (Last Updated 12/25/17 @ 08:22 by Juan Manuel Subramanian DO) Aspiration pneumonia due to food (regurgitated) (Acute) Subjective: The pt is a 57 YOM admitted to the hospital on 12/12/17 with acute respiratory failure secondary to CHF exacerbation. PMH is positive for hyperlipidemia, previous myocardial infarction, previous cardiac arrests, obstructive sleep apnea, nicotine dependence, ischemic cardiomyopathy with a 35% ejection fraction on cardiac cath done in February 2014, diabetes mellitus type 2, VTE, COPD. He was intubated in the emergency room and admitted to the intensive care unit. Since admission he has had a cardiac catheterization showing a 25% EF with diffuse global hypokinesis. Stents were patent and no intervention was necessary. He underwent tracheostomy on 12/30/2017 and the plan is for transfer to an LTAC. All events of the past 24 hours have been reviewed. Antibiotic Day # Ventilator Day #20, tracheostomy 12/30/17 TMAX: Afebrile Vital signs: Stable Fluid balance: -9232 since admission. Urine output: 525 cc on 12/30/2017 Weight: 305 pounds and 5 ounces, down from 332 pounds at admission All radiologic testing was reviewed All labs were personally reviewed: Potassium was low at 3.2 on 12/30/2017. Serum bicarb is stable at approximately 34. Blood sugars are increasing since midnight. Microbiology: No recent cultures ordered Tolerating TF without residuals Subjective: Denies chest pain, shortness of breath, nausea, abdominal pain. He is having some discomfort in his right leg but he states this is chronic. The right leg is always more swollen than the left and it is also reddened chronically per nursing Objective: General: Alert, cooperative, able to follow commands, on the vent via trach HEENT: PERRLA, EOMI, Atraumatic, normocephalic, no scleral icterus, no carotid bruits, no JVD, the tongue is coated but he denies any pain in the mouth Lungs: CTA, symmetric chest expansion, no accessory muscle use, appears to be resting comfortably Heart: RRR, no MM, no gallop, no rub, normal S1, normal S2, distant heart sounds Abdomen: Soft, nontender, nondistended, bowel sounds present, no guarding with palpation, no masses, no hepatosplenomegaly Extremities: Edema R>L, no clubbing, no cyanosis, the R leg is warm to touch when compared to the left.....no wounds Neuro: Cranial nerves II through XII grossly intact, Neuro grossly intact, no focal neurologic deficits Skin: Warm and dry, no jaundice Psych: Normal affect, Appropriate - Physical Exam Vital Signs Temp Pulse Resp BP Pulse Ox 98 F 77 27 H 90/47 L 96 12/31/17 00:00 12/31/17 07:00 12/31/17 07:00 12/31/17 07:00 12/31/17 07:00 Oxygen Flow Rate (L/min) 40 Oxygen Delivery Method CPAP Weight: 305 lb 5.443 oz Body Mass Index (BMI) 45.8 Finger Stick Blood Glucose 193 Intake and Output for Last 24 Hours 12/29/17 12/30/17 12/31/17 23:59 23:59 23:59 Intake Total 2392 / 2392 1088 / 1088 1075.7 / 1075.7 Output Total 1950 / 1950 525 / 525 850 / 850 Balance 442 / 442 563 / 563 225.7 / 225.7 Microbiology Past 72 Hours 12/23/17 08:50 Blood Culture - Final Blood Culture (Wb) - Right Wrist No growth in 5 days. 12/23/17 08:40 Blood Culture - Final Blood Culture (Wb) - Line Draw No growth in 5 days. Laboratory Tests Past 24 Hrs 12/30/17 04:40 Hemoglobin A1c 7.7 H POC Glucose 12/31/17 12/31/17 12/30/17 07:11 00:21 21:11 POC Glucose 194 H 224 H 220 H 12/30/17 12/30/17 12/30/17 18:28 12:28 09:00 POC Glucose 151 H 102 87 Medical Necessity - Tobacco Use Smoking Status: Current every day smoker Assessment/Plan All Active Problems (Last Updated 12/25/17 @ 08:22 by Juan Manuel Subramanian DO) Aspiration pneumonia due to food (regurgitated) (Acute) Heart failure with preserved ejection fraction (Acute) [place] (acute kidney injury) (Acute) Klebsiella pneumonia (Acute) Acute respiratory failure with hypoxia and hypercapnia (Acute) Pneumococcal pneumonia (Acute) Metabolic encephalopathy (Resolved) Chest pain (Resolved) Respiratory failure, acute (Resolved) Impressions 1. Acute on chronic combined respiratory failure -multifactorial 2. Aspiration pneumonia 3. Metabolic encephalopathy 4. Decompensated just of heart failure with preserved ejection fraction of 60% on recent echocardiogram but decreased EF on the Cath (25%) 5. Diabetes mellitus type 2 6. Obstructive sleep apnea 7. Super obesity 8. Ongoing tobacco dependence 9. Chronic noncompliance 10. Hypertension 11. Hypokalemia 12. CAD with history of PCI/stent to LAD and left circumflex in the past He has been transitioned to oral steroids. He has completed treatment for aspiration pneumonia. The plan is for discharge to an LTAC Increase long-acting insulin to 35 units every 12 hours to maintain blood sugars consistently less than 180 Recheck lab in the a.m. Code Visit Inpatient E&M: [id number] Subs Hosp L3
--- NOTE | 2017-12-31 09:32 | CM.UR ---
Participated in interdisciplinary rounds. Plan is for LTACH. Application is pending, awaiting acceptance to [facility]. Earnest Alberto RN, CCM.
[2017-12-31] MEDS: Furosemide 40 MG/4 ML Vial IV ×2 (09:33→18:19)
[2017-12-31] MEDS: Aspirin 81 MG TAB.CHEW GT (09:33)
[2017-12-31] MEDS: Clopidogrel Bisulfate 75 MG Tablet GT (09:33)
[2017-12-31] MEDS: Famotidine 20 MG Tablet GT ×2 (09:33→21:45)
[2017-12-31] MEDS: predniSONE 20 MG Tablet 40 MG GT (09:33)
--- NOTE | 2017-12-31 09:44 | PN.CARD_ITS ---
Subjectve: The patient seen and evaluated. Appears to be doing well. Successfully underwent his tracheostomy yesterday Objective: Vital Signs Temp Pulse Resp BP Pulse Ox 98.6 F 73 22 H 107/73 88 12/31/17 08:00 12/31/17 09:00 12/31/17 09:00 12/31/17 09:00 12/31/17 09:00 Oxygen Flow Rate (L/min) 40 Oxygen Delivery Method Mechanical Ventilator Weight: 305 lb 5.443 oz Body Mass Index (BMI) 45.8 Finger Stick Blood Glucose 193 Intake and Output for Last 24 Hours 12/29/17 12/30/17 12/31/17 23:59 23:59 23:59 Intake Total 2392 / 2392 1088 / 1088 1105.7 / 1105.7 Output Total 1950 / 1950 525 / 525 850 / 850 Balance 442 / 442 563 / 563 255.7 / 255.7 General: Awake, Alert, Oriented x 3 HEENT: PERRL, EOMI, Sclera Non Icteric Neck: Supple, Good ROM, No Lymph Node Enlargement Lungs: Clear to auscultation Cardiovascular: Regular Rhythm, Normal S1, Normal S2, No Murmurs, No Rubs, No Gallops Vascular: No Carotid Bruits, Normal Femoral Pulses, Normal Radial Pulses, Normal Dorsalis Pedal Pulse, Normal Posterior Tibial Pulses Abdomen: Bowel Sounds Present, Soft, Non Tender, No HSM, No Organomegaly Extremities: No Cyanosis, No Clubbing, No edema Neurological: No Focal Motor or Sensory Deficit Psych/Mental Status: Appropriate Rhythm: EKG: ECHO: Stress Test: Cardiac Cath: PCI: CT Surgery: Holter monitor: EPS: PPM: CXR: Chest CT Scan: Medical Necessity - Tobacco Use Smoking Status: Current every day smoker Assessment/Plan 1. Atherosclerosis of [place] coronary artery of [place] heart without angina pectoris I25.10 PCI/stent LAD w/ 4.0 x 32 mm Promus 2012; PCI/GISSEL to Prox LAD w/ 4.0 x 20 mm Promus 02/25/16 for instent restenosis; PTCA/GISSEL to LCx in June 2017; The patient has known history of the prior. He underwent a cardiac catheterization which demonstrated nonobstructive coronary anatomy. His ejection fraction was noted to be lower. His pulmonary pressures were however noted to be normal. At this time I would not recommend any coronary intervention. Tracheostomy placement was uneventful 2. Acute on chronic respiratory failure * The exact precipitating events are not entirely clear at this time. His most recent echocardiogram had demonstrated an ejection fraction of approximately 60%. This appears to be lower on the cardiac catheterization however. No obvious wall motion abnormality was noted but this is a suboptimal study. * Will continue current medical therapy as per the pulmonary service. * 3. Hypertension * His blood pressure medications will be adjusted as appropriate * 4 Hyperlipidemia * Continue aggressive medical therapy. Thank you for allowing me to participate in the care of your patient. Please don't hesitate to call if any issues arise
[2017-12-31] MEDS: Chlorhexidine 15 ML PO ×2 (09:46→21:44)
[2017-12-31] MEDS: 0.9% NaCl Peripheral Flush Adult/Peds IV ×2 (09:46→18:19)
[2017-12-31 12:21] LABS: Bedside Glucose 254 mg/dL (70-110)
[2017-12-31 18:21] LABS: Bedside Glucose 269 mg/dL (70-110)
[2017-12-31] MEDS: Atorvastatin Calcium 40 MG Tablet GT (21:44)
[2017-12-31 22:05] LABS: Bedside Glucose 204 mg/dL (70-110)
[2018-01-01] VITALS (38 sets, daily range): BP systolic 89–120; BP diastolic 41–82; PULSE 76–88; RESP 14–28; TEMP 36.5–37.5; O2SAT 84–99
[2018-01-01 00:25] LABS: Bedside Glucose 137 mg/dL (70-110)
[2018-01-01 05:51] LABS: Bedside Glucose 132 mg/dL (70-110)
[2018-01-01 05:54] LABS: Hematocrit 37.4 % (40-54); Hemoglobin 11.3 g/dl (13.0-16.5); Mean Corp Hgb Conc 30.2 g/gl (32-36); Mean Corpuscular Hgb 27.4 pg (27.0-32.0); Mean Corpuscular Volume 90.6 fL (80-94); Mean Platelet Vol. 12.5 fl (6.2-12.0); Platelet Count 142 K/mm3 (150-450); RBC Distribution Width CV 15.1 % (11.6-14.6); RBC Distribution Width SD 48.8 fl (35.1-43.9); Red Blood Count 4.13 M/mm3 (4.6-6.2); White Blood Count 8.7 K/mm3 (4.4-11.0)
[2018-01-01 05:55] LABS: Scan Indicated on CBC? Y/N NO
[2018-01-01 06:09] LABS: Anion Gap 6 (5-15); BUN 28 mg/dL (7-18); BUN/Creat Ratio 49.1 RATIO (10-20); Calcium,Total 8.6 mg/dL (8.5-10.1); Chloride 106 mmol/L (98-107); Creatinine, Serum 0.57 mg/dL (0.70-1.30); EST Glomerular Filtration Rate 155 mL/min (>60); Est Glom Filt Rate - Afr Amer 188 mL/min (>60); Glucose 132 mg/dL (74-106); Magnesium 2.3 mg/dL (1.6-2.6); Potassium 3.3 mmol/L (3.5-5.1); Sodium Level 146 mmol/L (136-145)
[2018-01-01] MEDS: Albuterol 2.5 MG/3 ML VIAL.NEB. INHALATION ×3 (06:17→18:35)
[2018-01-01] MEDS: 0.9% NaCl Peripheral Flush Adult/Peds IV ×5 (06:43→18:03)
[2018-01-01] MEDS: CHLORHEXIDINE GLUC 2% CLOTH 1 EACH TOWELETTE TOPICAL (06:43)
[2018-01-01] MEDS: Heparin Injection (Vial) 5,000 UNIT/ML VIAL 5000 UNIT SC ×3 (06:43→21:45)
--- NOTE | 2018-01-01 07:24 | PN_ITS ---
Patient Problems: Active and Suspected Problems (Last Updated 12/25/17 @ 08:22 by Juan Manuel Subramanian DO) Aspiration pneumonia due to food (regurgitated) (Acute) Subjective: All events of the past 24H have been reviewed. Ventilator Day#21 POD #2 S/P trach Afebrile, VSS, 91% on CPAP this AM but did not tolerate, tolerated CPAP all day yesterday and rested on AC last night LAB: K is low at 3.3 today, BUN is down to 28 and the creat is 0.57, Mag is normal. White blood cell count is normal at 8.7 today. Platelets are mildly decreased at 142,000 but stable. Telemetry: NSR occasional ventricular ectopy, no VT Blood sugars are coming under better control with increase in the long-acting insulin. The last 2 blood sugars have been in the 130s. Radiology: Chest x-ray today shows less pulmonary vascular congestion but there is blunting at the left costophrenic angle/left heart border. KUB is unremarkable Subjective:he is complaining about pain at the trach site.......down to a 2 with pain medication. No CP. Feeling SOB on the CPAP this AM. He is also c/o abdominal pain in the mid-epigastric area. The secretions from the ETT are yellow/muñoz today Last BM was on 12/30 Tolerating the TF without significant residuals Objective: General: Alert, cooperative, able to follow commands, on the vent via trach, trying to talk to me HEENT: PERRLA, EOMI, Atraumatic, normocephalic, no scleral icterus, no carotid bruits, no JVD, the tongue is coated but he denies any pain in the mouth, having pain with any movement of the neck Lungs: CTA anteriorly, symmetric chest expansion, no accessory muscle use, appears to be resting comfortably Heart: RRR, no MM, no gallop, no rub, normal S1, normal S2, distant heart sounds Abdomen: Soft, tender in the mid epigastric area (on famotidine for GI prophylaxis), nondistended, bowel sounds present, no guarding with palpation, no masses, no hepatosplenomegaly, no redness or purulent DC at the PEG site Extremities: Edema R>L ( better than yesterday), no clubbing, no cyanosis, the R leg is lesswarm to touch today .....no wounds, the skin over the LE's is wrinkled today Neuro: Cranial nerves II through XII grossly intact, Neuro grossly intact, no focal neurologic deficits Skin: Warm and dry, no jaundice Psych: Normal affect, Appropriate - Physical Exam Vital Signs Temp Pulse Resp BP Pulse Ox 97.9 F 85 21 H 89/45 L 91 01/01/18 07:00 01/01/18 07:00 01/01/18 07:00 01/01/18 07:00 01/01/18 07:00 Oxygen Flow Rate (L/min) 40 Oxygen Delivery Method CPAP Weight: 307 lb 15.772 oz Body Mass Index (BMI) 45.8 Finger Stick Blood Glucose 193 Intake and Output for Last 24 Hours 12/30/17 12/31/17 01/01/18 23:59 23:59 23:59 Intake Total 1088 / 1088 2778.7 / 2778.7 1077 / 1077 Output Total 525 / 525 1974 / 1974 950 / 950 Balance 563 / 563 803.7 / 803.7 127 / 127 Laboratory Tests Past 24 Hrs 01/01/18 01/01/18 05:45 05:45 WBC 8.7 RBC 4.13 L Hgb 11.3 L Hct 37.4 L MCV 90.6 MCH 27.4 MCHC 30.2 L RDW 15.1 H RDW Differential 48.8 H Plt Count 142 L MPV 12.5 H Sodium 146 H Potassium 3.3 L Chloride 106 Carbon Dioxide 34.0 H Anion Gap 6 BUN 28 H Creatinine 0.57 L Estim Creat Clear Calc 135.00 Est GFR (MDRD) Af Amer 188 Est GFR (MDRD) Non-Af 155 BUN/Creatinine Ratio 49.1 H Glucose 132 H Calcium 8.6 Magnesium 2.3 POC Glucose 01/01/18 01/01/18 12/31/17 05:44 00:17 21:52 POC Glucose 132 H 137 H 204 H 12/31/17 12/31/17 18:16 12:16 POC Glucose 269 H 254 H Medical Necessity - Tobacco Use Smoking Status: Current every day smoker Assessment/Plan All Active Problems (Last Updated 12/25/17 @ 08:22 by Juan Manuel Subramanian DO) Aspiration pneumonia due to food (regurgitated) (Acute) Heart failure with preserved ejection fraction (Acute) GALILEA (acute kidney injury) (Acute) Klebsiella pneumonia (Acute) Acute respiratory failure with hypoxia and hypercapnia (Acute) Pneumococcal pneumonia (Acute) Metabolic encephalopathy (Resolved) Chest pain (Resolved) Respiratory failure, acute (Resolved) Impressions 1. Acute on chronic combined respiratory failure -multifactorial 2. Aspiration pneumonia 3. Metabolic encephalopathy 4. Decompensated just of heart failure with preserved ejection fraction of 60% on recent echocardiogram but decreased EF on the Cath (25%) 5. Diabetes mellitus type 2 6. Obstructive sleep apnea 7. Super obesity 8. Ongoing tobacco dependence 9. Chronic noncompliance 10. Hypertension 11. Hypokalemia - supplement today 12. CAD with history of PCI/stent to LAD and left circumflex in the past 13. PAF with RVR The reason for the respiratory decline is indeterminate at this time. White blood cell count is normal and he is afebrile. Secretions from the ET tube have changed so will order a sputum culture. If he has any fever will start antibiotics. Potassium supplementation has been ordered. EF is normal on his echocardiogram. He is currently in normal sinus rhythm with PACs. Consider changing the Pepcid to a PPI if the KUB is unremarkable and the epigastric pain persists Recheck a BMP in the AM No fever and normal WBC so no antibiotics at this time Prednisone taper over 2-3 weeks maintain the perales because nursing does not want to be rolling him around with fresh trach LTAC at DC Code Visit Inpatient E&M: [id number] [facility] L3
--- NOTE | 2018-01-01 07:38 | PN_ITS ---
Subjective: Patient did okay overnight. Patient has had issues with increased secretions requiring increase in PEEP to 8 and 50% FiO2. Pain is been well controlled per the patient. No bowel movements have been reported. Patient was able to tolerate pressure support ventilation for some time yesterday. General: - - Resting comfortably. No acute distress. Following commands. Morbidly obese. HEENT: Atraumatic, PERRLA, EOMI, Normocephalic Oral: Moist Mucosa, No Gingival or Mucosal Lesions/ Ulcerations Neck: Supple, No JVD, No Nodes, Trachea Midline, - - Size 8 trach noted. Some serosanguineous secretions noted at the trach site. No associated erythema noted. Lungs: No wheeze, No rales, Diminished, Rhonchi, - - Symmetric expansion. No dullness to percussion. Cardiovascular: Regular rate, Regular Rhythm, Normal S1, Normal S2, No murmurs, No rub noted, No Gallop Abdomen: Bowel Sounds Present, Soft, Non Tender, Non-Distended, Obese Extremities: No cyanosis, Clubbing, Edema Skin: No rashes, No breakdown Musculoskeletal: No Tenderness to Palpation of Joints or Extremities Lymphatic: No Cervical, Supraclavicular, or Inguinal Adenopathy Neurological: Cranial nerves II-XII grossly intact, Neuro grossly intact, Motor Exam 5/5 strength throughout Psych/Mental Status: Normal Affect, Appropriate Vital Signs Temp Pulse Resp BP Pulse Ox 36.6 C 85 21 H 89/45 L 91 01/01/18 07:00 01/01/18 07:00 01/01/18 07:00 01/01/18 07:00 01/01/18 07:00 Oxygen Flow Rate (L/min) 40 Oxygen Delivery Method CPAP Weight: 139.7 kg Body Mass Index (BMI) 45.8 Finger Stick Blood Glucose 193 Intake and Output for Last 24 Hours 12/30/17 12/31/17 01/01/18 23:59 23:59 23:59 Intake Total 1088 / 1088 2778.7 / 2778.7 1077 / 1077 Output Total 525 / 525 1974 / 1974 950 / 950 Balance 563 / 563 803.7 / 803.7 127 / 127 Labs (Last 48 Hours) 12/30/17 12/30/17 12/30/17 04:40 09:00 12:28 WBC RBC Hgb Hct MCV MCH MCHC RDW RDW Differential Plt Count MPV Sodium Potassium Chloride Carbon Dioxide Anion Gap BUN Creatinine Estim Creat Clear Calc Est GFR (MDRD) Af Amer Est GFR (MDRD) Non-Af BUN/Creatinine Ratio Glucose Hemoglobin A1c 7.7 H Calcium Magnesium POC Glucose 87 102 12/30/17 12/30/17 12/31/17 18:28 21:11 00:21 WBC RBC Hgb Hct MCV MCH MCHC RDW RDW Differential Plt Count MPV Sodium Potassium Chloride Carbon Dioxide Anion Gap BUN Creatinine Estim Creat Clear Calc Est GFR (MDRD) Af Amer Est GFR (MDRD) Non-Af BUN/Creatinine Ratio Glucose Hemoglobin A1c Calcium Magnesium POC Glucose 151 H 220 H 224 H 12/31/17 12/31/17 12/31/17 07:11 12:16 18:16 WBC RBC Hgb Hct MCV MCH MCHC RDW RDW Differential Plt Count MPV Sodium Potassium Chloride Carbon Dioxide Anion Gap BUN Creatinine Estim Creat Clear Calc Est GFR (MDRD) Af Amer Est GFR (MDRD) Non-Af BUN/Creatinine Ratio Glucose Hemoglobin A1c Calcium Magnesium POC Glucose 194 H 254 H 269 H 12/31/17 01/01/18 01/01/18 21:52 00:17 05:44 WBC RBC Hgb Hct MCV MCH MCHC RDW RDW Differential Plt Count MPV Sodium Potassium Chloride Carbon Dioxide Anion Gap BUN Creatinine Estim Creat Clear Calc Est GFR (MDRD) Af Amer Est GFR (MDRD) Non-Af BUN/Creatinine Ratio Glucose Hemoglobin A1c Calcium Magnesium POC Glucose 204 H 137 H 132 H 01/01/18 01/01/18 05:45 05:45 WBC 8.7 RBC 4.13 L Hgb 11.3 L Hct 37.4 L MCV 90.6 MCH 27.4 MCHC 30.2 L RDW 15.1 H RDW Differential 48.8 H Plt Count 142 L MPV 12.5 H Sodium 146 H Potassium 3.3 L Chloride 106 Carbon Dioxide 34.0 H Anion Gap 6 BUN 28 H Creatinine 0.57 L Estim Creat Clear Calc 135.00 Est GFR (MDRD) Af Amer 188 Est GFR (MDRD) Non-Af 155 BUN/Creatinine Ratio 49.1 H Glucose 132 H Hemoglobin A1c Calcium 8.6 Magnesium 2.3 POC Glucose Medical Necessity - Tobacco Use Smoking Status: Current every day smoker Assessment/Plan All Active Problems (Last Updated 12/25/17 @ 08:22 by Juan Manuel Subramanian DO) Aspiration pneumonia due to food (regurgitated) (Acute) Heart failure with preserved ejection fraction (Acute) GALILEA (acute kidney injury) (Acute) Klebsiella pneumonia (Acute) Acute respiratory failure with hypoxia and hypercapnia (Acute) Pneumococcal pneumonia (Acute) Metabolic encephalopathy (Resolved) Chest pain (Resolved) Respiratory failure, acute (Resolved) RECOMMENDATIONS: 1. Aggressive pulmonary toileting, 2. Attempt pressure support trial during the day, full support at night 3. Wean FiO2 and PEEP as tolerated. 4. Continue tube feeds with free water flushes 5. Await tracheostomy on Tuesday. 6. Anticipate prolonged prednisone taper over 2-3 weeks 7. Disposition planning per case management IMPRESSIONS: 1. Acute on chronic combined respiratory failure Patient received tracheostomy on December 30. Patient has been having significant secretions that have resulted in some plugging. Will attempt to avoid any pulmonary toileting by vest therapy as patient recently had tracheostomy and PEG placement. Wean oxygen and PEEP as tolerated. Suction as necessary. Anticipate transition to LTAC later this week. 2. Metabolic encephalopathy Improved. Patient does have a history of acute on chronic CO2 retention. We will continue to monitor closely. Patient's chemistry did show a slight decrease in potassium, so this will be repleted. 3. Decompensated heart failure/history of ischemic cardiomyopathy Patient's heart catheterization showed patent stents. Patient's fluid status continues to be somewhat of an issue. Patient is back on diuretic therapy. Continue to monitor closely. 4. Diabetes mellitus Continue Accu-Cheks and sliding scale insulin coverage. The patient has been tolerant of tube feeds to date. 5. Obstructive sleep apnea The patient has a history of outpatient noncompliance with the use of nocturnal Pap therapy. He only utilizes supplemental oxygen on a nightly basis. 6. Ongoing tobacco dependence/super morbid obesity/history of medical noncompliance/hypertension Complicates care, management, recovery and prognosis. Nicotine replacement therapy can be utilized while admitted to the hospital. 7. Acute kidney injury Resolved. Likely secondary to overdiuresis. Diuretics have been re initiated. TIME: 31 minutes of critical care time was spent addressing the patient's acute on chronic combined respiratory failure, metabolic encephalopathy, decompensated heart failure, obstructive sleep apnea, review of all data and collaboration with the care team. (6 AM to 7 AM) Code Visit [id number]: [id number] Critical care first hour
[2018-01-01] MEDS: predniSONE 20 MG Tablet 40 MG GT (07:58)
--- NOTE | 2018-01-01 08:06 | PN.CARD_ITS ---
Subjectve: Patient seen and evaluated. Appears to be stable status post tracheostomy Objective: Vital Signs Temp Pulse Resp BP Pulse Ox 97.9 F 85 21 H 89/45 L 91 01/01/18 07:00 01/01/18 07:00 01/01/18 07:00 01/01/18 07:00 01/01/18 07:00 Oxygen Flow Rate (L/min) 40 Oxygen Delivery Method CPAP Weight: 307 lb 15.772 oz Body Mass Index (BMI) 45.8 Finger Stick Blood Glucose 193 Intake and Output for Last 24 Hours 12/30/17 12/31/17 01/01/18 23:59 23:59 23:59 Intake Total 1088 / 1088 2778.7 / 2778.7 1077 / 1077 Output Total 525 / 525 1974 / 1974 950 / 950 Balance 563 / 563 803.7 / 803.7 127 / 127 General: Awake, Alert, Oriented x 3 HEENT: PERRL, EOMI, Sclera Non Icteric Neck: Good ROM, No Lymph Node Enlargement, - - Tracheostomy Lungs: Diminished Arturo Bases Cardiovascular: Regular Rhythm, Normal S1, Normal S2, No Murmurs, No Rubs, No Gallops Vascular: No Carotid Bruits, Normal Femoral Pulses, Normal Radial Pulses, Normal Dorsalis Pedal Pulse, Normal Posterior Tibial Pulses Abdomen: Bowel Sounds Present, Soft, Non Tender, No HSM, No Organomegaly Extremities: No Cyanosis, No Clubbing, No edema Skin: No Rashes Lymphatic: No Lymph Node Enlargement Neurological: No Focal Motor or Sensory Deficit 01/01/18 05:45: WBC 8.7, RBC 4.13 L, Hgb 11.3 L, Hct 37.4 L, MCV 90.6, MCH 27.4, MCHC 30.2 L, RDW 15.1 H, RDW Differential 48.8 H, Plt Count 142 L, MPV 12.5 H 01/01/18 05:45: Sodium 146 H, Potassium 3.3 L, Chloride 106, Carbon Dioxide 34.0 H, Anion Gap 6, BUN 28 H, Creatinine 0.57 L, Est GFR (MDRD) Af Amer 188, Est GFR (MDRD) Non-Af 155, BUN/Creatinine Ratio 49.1 H, Glucose 132 H, Calcium 8.6, Magnesium 2.3 Rhythm: EKG: Normal sinus rhythm Medical Necessity - Tobacco Use Smoking Status: Current every day smoker Assessment/Plan 1. Atherosclerosis of [place] coronary artery of [place] heart without angina pectoris I25.10 PCI/stent LAD w/ 4.0 x 32 mm Promus 2012; PCI/GISSEL to Prox LAD w/ 4.0 x 20 mm Promus 02/25/16 for instent restenosis; PTCA/GISSEL to LCx in June 2017; The patient has known history of the prior. He underwent a cardiac catheterization which demonstrated nonobstructive coronary anatomy. His stents were noted to be patent. His ejection fraction was noted to be lower. His pulmonary pressures were however noted to be normal. At this time I would not recommend any coronary intervention. Tracheostomy placement was uneventful 2. Acute on chronic respiratory failure * The exact precipitating events are not entirely clear at this time. His most recent echocardiogram had demonstrated an ejection fraction of approximately 60%. This appears to be lower on the cardiac catheterization however. No obvious wall motion abnormality was noted but this is a suboptimal study. * Will continue current medical therapy as per the pulmonary service. * 3. Hypertension * His blood pressure medications will be adjusted as appropriate * 4 Hyperlipidemia * Continue aggressive medical therapy. Thank you for allowing me to participate in the care of your patient. Please don't hesitate to call if any issues arise
--- NOTE | 2018-01-01 08:45 | RAD_ITS ---
STUDY: X-RAY CHEST REASON FOR EXAM: Male, 57 years old. Shortness of breath TECHNIQUE: Frontal view of the chest COMPARISON: 12/30/2017 FINDINGS: The lungs are clear. There are no pleural effusions. There is no pneumothorax. The heart is mildly enlarged, but stable. Again noted is a tracheostomy tube. There is a right-sided PICC line with its tip in the superior vena cava. The visualized osseous structures are within normal limits. RAD/Chest 1 View (Portable) IMPRESSION: No acute thoracic pathology. Electronically Signed: Karri Blas, at 9:19 EST Tel , Service support ,
--- NOTE | 2018-01-01 08:56 | RAD_ITS ---
STUDY: X-RAY - ABDOMEN/PELVIS REASON FOR EXAM: Male, 57 years old. Pain TECHNIQUE: Two AP supine views of the abdomen and pelvis. COMPARISON: 12/22/2017 FINDINGS: There is no bowel obstruction. There is air and stool to the level of the rectum. The visualized osseous structures are within normal limits. RAD/Abdomen Single View (Portable) IMPRESSION: No bowel obstruction. Electronically Signed: Karri Blas, at 9:20 EST Tel , Service support ,
[2018-01-01] MEDS: Chlorhexidine 15 ML PO ×2 (10:00→21:58)
[2018-01-01] MEDS: Famotidine 20 MG Tablet GT ×2 (10:33→21:46)
[2018-01-01] MEDS: Clopidogrel Bisulfate 75 MG Tablet GT (10:33)
[2018-01-01] MEDS: Aspirin 81 MG TAB.CHEW GT (10:33)
[2018-01-01] MEDS: Furosemide 40 MG/4 ML Vial IV ×2 (10:33→18:02)
[2018-01-01 12:31] LABS: Bedside Glucose 252 mg/dL (70-110)
[2018-01-01] MEDS: Vital AF 1.2 Cal Liquid 1,000 ML 65 ML GT (14:50)
[2018-01-01] MEDS: Insulin Lispro 100 UNIT/ML INSULN.PEN SC ×2 (14:50→18:03)
[2018-01-01 14:59] LABS: Potassium 4.2 mmol/L (3.5-5.1)
[2018-01-01 18:06] LABS: Bedside Glucose 252 mg/dL (70-110)
[2018-01-01 21:41] LABS: Bedside Glucose 187 mg/dL (70-110)
[2018-01-01] MEDS: Atorvastatin Calcium 40 MG Tablet GT (21:46)
[2018-01-02] VITALS (44 sets, daily range): BP systolic 83–120; BP diastolic 41–65; PULSE 16–95; RESP 14–30; TEMP 36.1–37.1; O2SAT 80–100
[2018-01-02] MEDS: Insulin Lispro 100 UNIT/ML INSULN.PEN SC ×5 (00:16→23:36)
[2018-01-02 00:21] LABS: Bedside Glucose 159 mg/dL (70-110)
[2018-01-02 04:49] LABS: Anion Gap 9 (5-15); BUN 28 mg/dL (7-18); BUN/Creat Ratio 48.3 RATIO (10-20); Calcium,Total 8.8 mg/dL (8.5-10.1); Chloride 106 mmol/L (98-107); Creatinine, Serum 0.58 mg/dL (0.70-1.30); EST Glomerular Filtration Rate 152 mL/min (>60); Est Glom Filt Rate - Afr Amer 184 mL/min (>60); Estimated Creatinine Clearance 132.67 ml/min; Glucose 135 mg/dL (74-106); Potassium 3.4 mmol/L (3.5-5.1); Sodium Level 147 mmol/L (136-145)
[2018-01-02] MEDS: CHLORHEXIDINE GLUC 2% CLOTH 1 EACH TOWELETTE TOPICAL (04:50)
[2018-01-02] MEDS: Heparin Injection (Vial) 5,000 UNIT/ML VIAL 5000 UNIT SC ×3 (05:32→22:15)
[2018-01-02 05:40] LABS: Bedside Glucose 161 mg/dL (70-110)
[2018-01-02] MEDS: 0.9% NaCl Peripheral Flush Adult/Peds IV ×3 (06:34→19:57)
--- NOTE | 2018-01-02 07:05 | PCM.PN.INT ---
Subjective: Patient did okay overnight. Patient has had some issues with intermittent hypoxia, but overall was able to be maintained on pressure support ventilation overnight. Patient denies any pain at this time. Nursing reports patient had stated he wanted his tracheostomy removed, but was unaware of its function. Patient is tolerated tube feeds well. No pain is reported at this time. Patient did have a small bowel movement overnight. General: Alert, Cooperative, No apparent distress, - - Morbidly obese. Follows directions. Good ventilator synchrony noted. HEENT: Atraumatic, PERRLA, EOMI, Normocephalic, - - No scleral icterus or injection noted. Oral: Moist Mucosa, No Gingival or Mucosal Lesions/ Ulcerations Neck: Supple, No JVD, No Nodes, Trachea Midline Lungs: No rhonchi, No wheeze, No rales, Diminished, - - Symmetric expansion. No dullness to percussion. Cardiovascular: Regular rate, Regular Rhythm, Normal S1, Normal S2, No murmurs, No rub noted, No Gallop Abdomen: Bowel Sounds Present, Soft, Non Tender, Non-Distended, Obese Extremities: No cyanosis, Capillary Refill Less than 3 Seconds, Clubbing, Edema Skin: - - No significant change compared to previous Musculoskeletal: No Tenderness to Palpation of Joints or Extremities, No Muscle Wasting Lymphatic: No Cervical, Supraclavicular, or Inguinal Adenopathy Neurological: Cranial nerves II-XII grossly intact, Neuro grossly intact, Motor Exam 5/5 strength throughout Psych/Mental Status: Normal Affect, Appropriate Vital Signs Temp Pulse Resp BP Pulse Ox 37.1 C 81 19 H 101/56 L 92 01/02/18 04:00 01/02/18 06:00 01/02/18 06:00 01/02/18 06:00 01/02/18 06:00 Oxygen Flow Rate (L/min) 40 Oxygen Delivery Method Mechanical Ventilator Weight: 139.6 kg Body Mass Index (BMI) 45.8 Finger Stick Blood Glucose 193 Intake and Output for Last 24 Hours 12/31/17 01/01/18 01/02/18 23:59 23:59 23:59 Intake Total 2778.7 / 2778.7 2900 / 2900 1319 / 1319 Output Total 1974 / 1974 1875 / 1875 975 / 975 Balance 803.7 / 803.7 1025 / 1025 344 / 344 Labs (Last 48 Hours) 12/31/17 12/31/17 12/31/17 07:11 12:16 18:16 WBC RBC Hgb Hct MCV MCH MCHC RDW RDW Differential Plt Count MPV Sodium Potassium Chloride Carbon Dioxide Anion Gap BUN Creatinine Estim Creat Clear Calc Est GFR (MDRD) Af Amer Est GFR (MDRD) Non-Af BUN/Creatinine Ratio Glucose Calcium Magnesium POC Glucose 194 H 254 H 269 H 12/31/17 01/01/18 01/01/18 21:52 00:17 05:44 WBC RBC Hgb Hct MCV MCH MCHC RDW RDW Differential Plt Count MPV Sodium Potassium Chloride Carbon Dioxide Anion Gap BUN Creatinine Estim Creat Clear Calc Est GFR (MDRD) Af Amer Est GFR (MDRD) Non-Af BUN/Creatinine Ratio Glucose Calcium Magnesium POC Glucose 204 H 137 H 132 H 01/01/18 01/01/18 01/01/18 05:45 05:45 12:26 WBC 8.7 RBC 4.13 L Hgb 11.3 L Hct 37.4 L MCV 90.6 MCH 27.4 MCHC 30.2 L RDW 15.1 H RDW Differential 48.8 H Plt Count 142 L MPV 12.5 H Sodium 146 H Potassium 3.3 L Chloride 106 Carbon Dioxide 34.0 H Anion Gap 6 BUN 28 H Creatinine 0.57 L Estim Creat Clear Calc 135.00 Est GFR (MDRD) Af Amer 188 Est GFR (MDRD) Non-Af 155 BUN/Creatinine Ratio 49.1 H Glucose 132 H Calcium 8.6 Magnesium 2.3 POC Glucose 252 H 01/01/18 01/01/18 01/01/18 14:45 18:01 21:35 WBC RBC Hgb Hct MCV MCH MCHC RDW RDW Differential Plt Count MPV Sodium Potassium 4.2 Chloride Carbon Dioxide Anion Gap BUN Creatinine Estim Creat Clear Calc Est GFR (MDRD) Af Amer Est GFR (MDRD) Non-Af BUN/Creatinine Ratio Glucose Calcium Magnesium POC Glucose 252 H 187 H 01/02/18 01/02/18 01/02/18 00:13 03:58 05:30 WBC RBC Hgb Hct MCV MCH MCHC RDW RDW Differential Plt Count MPV Sodium 147 H Potassium 3.4 L Chloride 106 Carbon Dioxide 32.0 Anion Gap 9 BUN 28 H Creatinine 0.58 L Estim Creat Clear Calc 132.67 Est GFR (MDRD) Af Amer 184 Est GFR (MDRD) Non-Af 152 BUN/Creatinine Ratio 48.3 H Glucose 135 H Calcium 8.8 Magnesium POC Glucose 159 H 161 H Clinical Impression(s) from Imaging Studies Chest X-Ray 01/01/18 08:45 IMPRESSION: No acute thoracic pathology. Electronically Signed: Karri Mancilladixon, at 9:19 EST Tel , Service support , KUB X-Ray 01/01/18 08:56 IMPRESSION: No bowel obstruction. Electronically Signed: Karri Roopa, at 9:20 EST Tel , Service support , Medical Necessity - Tobacco Use Smoking Status: Current every day smoker Assessment/Plan All Active Problems (Last Updated 12/25/17 @ 08:22 by Juan Manuel Subramanian DO) Aspiration pneumonia due to food (regurgitated) (Acute) Heart failure with preserved ejection fraction (Acute) GALILEA (acute kidney injury) (Acute) Klebsiella pneumonia (Acute) Acute respiratory failure with hypoxia and hypercapnia (Acute) Pneumococcal pneumonia (Acute) Metabolic encephalopathy (Resolved) Chest pain (Resolved) Respiratory failure, acute (Resolved) RECOMMENDATIONS: 1. Aggressive pulmonary toileting 2. Attempt pressure support trial 3. Wean FiO2 and PEEP as tolerated. 4. Continue tube feeds with free water flushes 5. May require increased diuretic therapy 6. Anticipate prolonged prednisone taper over 2-3 weeks 7. Disposition planning per case management IMPRESSIONS: 1. Acute on chronic combined respiratory failure Patient received tracheostomy on December 30. Patient has been having significant secretions that have resulted in some plugging, but this appears to be improving clinically. Will attempt to avoid any pulmonary toileting by vest therapy as patient recently had tracheostomy and PEG placement. Wean oxygen and PEEP as tolerated. Suction as necessary. Anticipate transition to LTAC later this week. Patient may require increased diuretic therapy to maintain slightly negative fluid balance, but defer to cardiology 2. Metabolic encephalopathy Improved. Patient does have a history of acute on chronic CO2 retention. We will continue to monitor closely. Continue to address chemistries as indicated 3. Decompensated heart failure/history of ischemic cardiomyopathy Patient's heart catheterization showed patent stents. Patient's fluid status continues to be somewhat of an issue. Patient is back on diuretic therapy. Further cardiology if this needs changed to 3 times daily to maintain slightly negative fluid balance. Continue to monitor closely. 4. Diabetes mellitus Continue Accu-Cheks and sliding scale insulin coverage. The patient has been tolerant of tube feeds to date. 5. Obstructive sleep apnea The patient has a history of outpatient noncompliance with the use of nocturnal Pap therapy. He only utilizes supplemental oxygen on a nightly basis. Patient currently with a tracheostomy and ventilator support. 6. Ongoing tobacco dependence/super morbid obesity/history of medical noncompliance/hypertension Complicates care, management, recovery and prognosis. Nicotine replacement therapy can be utilized while admitted to the hospital. 7. Acute kidney injury Resolved. Likely secondary to overdiuresis previously. Diuretics have been reinitiated. TIME: 32 minutes of critical care time was spent addressing the patient's acute on chronic combined respiratory failure, metabolic encephalopathy, decompensated heart failure, obstructive sleep apnea, review of all data and collaboration with the care team. (6 AM to 7 AM) Code Visit [id number]: [id number] Critical care first hour
[2018-01-02] MEDS: Albuterol 2.5 MG/3 ML VIAL.NEB. INHALATION ×3 (07:23→18:57)
--- NOTE | 2018-01-02 09:45 | PCM.PN.CARD ---
Subjectve: Patient on tracheostomy with pressure support this morning. Patient has been in a positive fluid balance for several days time despite IV diuretic therapy as he transitions to tube feeds status post tracheostomy on 12/30/17. Heart rate and blood pressure well controlled. Telemetry negative. Objective: Vital Signs Temp Pulse Resp BP Pulse Ox 98.8 F 85 15 103/51 L 92 01/02/18 04:00 01/02/18 09:00 01/02/18 09:00 01/02/18 09:00 01/02/18 09:00 Oxygen Flow Rate (L/min) 40 Oxygen Delivery Method Mechanical Ventilator Weight: 307 lb 12.245 oz Body Mass Index (BMI) 45.8 Finger Stick Blood Glucose 193 Intake and Output for Last 24 Hours 12/31/17 01/01/18 01/02/18 23:59 23:59 23:59 Intake Total 2778.7 / 2778.7 2900 / 2900 1319 / 1319 Output Total 1974 / 1974 1875 / 1875 975 / 975 Balance 803.7 / 803.7 1025 / 1025 344 / 344 General: Awake, Alert, Oriented x 3 HEENT: PERRL, EOMI, Sclera Non Icteric Neck: Supple, Good ROM, No Lymph Node Enlargement Lungs: Clear to auscultation Cardiovascular: Regular Rhythm, Normal S1, Normal S2, No Murmurs, No Rubs, No Gallops Vascular: No Carotid Bruits, Normal Femoral Pulses, Normal Radial Pulses, Normal Dorsalis Pedal Pulse, Normal Posterior Tibial Pulses Abdomen: Bowel Sounds Present, Soft, Non Tender, No HSM, No Organomegaly Extremities: No Cyanosis, No Clubbing, No edema Neurological: No Focal Motor or Sensory Deficit 01/01/18 14:45: Potassium 4.2 01/02/18 03:58: Sodium 147 H, Potassium 3.4 L, Chloride 106, Carbon Dioxide 32.0, Anion Gap 9, BUN 28 H, Creatinine 0.58 L, Est GFR (MDRD) Af Amer 184, Est GFR (MDRD) Non-Af 152, BUN/Creatinine Ratio 48.3 H, Glucose 135 H, Calcium 8.8 Rhythm: EKG: ECHO: Stress Test: Cardiac Cath: PCI: CT Surgery: Holter monitor: EPS: PPM: CXR: Chest CT Scan: Medical Necessity - Tobacco Use Smoking Status: Current every day smoker Assessment/Plan 1. Patient on tracheostomy with pressure support this morning. Patient has been in a positive fluid balance for several days time despite IV diuretic therapy as he transitions to tube feeds status post tracheostomy on 12/30/17. Ejection fraction is estimated by LV angiogram shows significant LV dysfunction in comparison to his echocardiogram although his echocardiogram has a very difficult study given his body habitus. My tendency would be to go with the LV angiogram rather than the echocardiogram at this point. Would recommend increasing his Lasix to 40 mg IV 3 times daily and attempt to bring him back into a neutral fluid balance. This may assist with his pulmonary secretions as well. Once he is reached his dry weight, would transition him to Lasix 80 mg p.o. twice daily and possibly requiring metolazone 2.5 mg 2-3 times per week going forward to maintain optimal fluid balance. His blood pressure and heart rate are fairly well-controlled. Would recommend matching his I's and O's at this point. Coronary arteries reevaluated by catheterization several days ago which showed widely patent stents to his LAD and left circumflex, and severe disease of a nondominant right coronary artery. No additional intervention was performed at that time. Recommend continuing aspirin and Plavix. Would recommend restarting his losartan to 25 mg p.o. daily for afterload reduction as well. 2. Obstructive sleep apnea: The patient is evidence of pulmonary hypertension and right-sided heart failure most likely result of obstructive sleep apnea. He is on chronic O2 therapy at home as well. Patient may be preload dependent so if his blood pressure deteriorates with IV diuresis, he may require discontinuation of IV diuretic therapy. Patient's right heart catheterization demonstrated normal right-sided pressures. 3. Hyperlipidemia: Continue statin based medications. 4. Thank you very much for the opportunity to participate in the cardiac care of your patient. Code Visit Inpatient E&M: [id number] [facility] L3
[2018-01-02] MEDS: Aspirin 81 MG TAB.CHEW GT (09:59)
[2018-01-02] MEDS: predniSONE 20 MG Tablet 40 MG GT (09:59)
[2018-01-02] MEDS: Famotidine 20 MG Tablet GT ×2 (09:59→22:18)
[2018-01-02] MEDS: Clopidogrel Bisulfate 75 MG Tablet GT (09:59)
[2018-01-02] MEDS: Chlorhexidine 15 ML PO ×2 (10:02→22:15)
[2018-01-02] MEDS: Losartan Potassium 25 MG Tablet PO (10:02)
--- NOTE | 2018-01-02 10:04 | PCM.PROGNOTE ---
Patient Problems: Active and Suspected Problems (Last Updated 12/25/17 @ 08:22 by Juan Manuel Subramanian DO) Aspiration pneumonia due to food (regurgitated) (Acute) Subjective: All events of the past 24 hours have been reviewed. Ventilator Day #22 TMAX: Afebrile Vital signs: Stable Fluid balance: Urine output: Weight: All radiologic testing was reviewed: All labs were personally reviewed: Microbiology: Telemetry: ECHO: EKG: Secretions for ETT: BM Tolerating TF without residuals Subjective: - Physical Exam Vital Signs Temp Pulse Resp BP Pulse Ox 98.8 F 85 15 103/51 L 92 01/02/18 04:00 01/02/18 09:00 01/02/18 09:00 01/02/18 09:00 01/02/18 09:00 Oxygen Flow Rate (L/min) 40 Oxygen Delivery Method Mechanical Ventilator Weight: 307 lb 12.245 oz Body Mass Index (BMI) 45.8 Finger Stick Blood Glucose 193 Intake and Output for Last 24 Hours 12/31/17 01/01/18 01/02/18 23:59 23:59 23:59 Intake Total 2778.7 / 2778.7 2900 / 2900 1319 / 1319 Output Total 1974 / 1974 1875 / 1875 975 / 975 Balance 803.7 / 803.7 1025 / 1025 344 / 344 Laboratory Tests Past 24 Hrs 01/01/18 01/02/18 14:45 03:58 Sodium 147 H Potassium 4.2 3.4 L Chloride 106 Carbon Dioxide 32.0 Anion Gap 9 BUN 28 H Creatinine 0.58 L Estim Creat Clear Calc 132.67 Est GFR (MDRD) Af Amer 184 Est GFR (MDRD) Non-Af 152 BUN/Creatinine Ratio 48.3 H Glucose 135 H Calcium 8.8 POC Glucose 01/02/18 01/02/18 01/01/18 05:30 00:13 21:35 POC Glucose 161 H 159 H 187 H 01/01/18 01/01/18 18:01 12:26 POC Glucose 252 H 252 H Medical Necessity - Tobacco Use Smoking Status: Current every day smoker Assessment/Plan All Active Problems (Last Updated 12/25/17 @ 08:22 by Juan Manuel Subramanian DO) Aspiration pneumonia due to food (regurgitated) (Acute) Heart failure with preserved ejection fraction (Acute) GALILEA (acute kidney injury) (Acute) Klebsiella pneumonia (Acute) Acute respiratory failure with hypoxia and hypercapnia (Acute) Pneumococcal pneumonia (Acute) Metabolic encephalopathy (Resolved) Chest pain (Resolved) Respiratory failure, acute (Resolved)
[2018-01-02 12:51] LABS: Bedside Glucose 172 mg/dL (70-110)
--- NOTE | 2018-01-02 13:09 | PN_ITS ---
Patient Problems: Active and Suspected Problems (Last Updated 12/25/17 @ 08:22 by Juan Manuel Subramanian DO) Aspiration pneumonia due to food (regurgitated) (Acute) Subjective: Patient seen and examined. He is on a trach. Patient was alert and oriented and able to communicate., Still complained of pain at the site of the trach insertion. He denied any fever or chills, any chest pain, abdominal pain, any diarrhea vomiting. He is awaiting placement in LTAC. Labs and vitals reviewed. He is mildly hypokalemic and is hypernatremic. Vitals/I&O's: Vital Signs Temp Pulse Resp BP Pulse Ox 97.0 F L 84 23 H 97/57 L 98 01/02/18 12:00 01/02/18 12:00 01/02/18 12:00 01/02/18 12:00 01/02/18 12:00 Oxygen Flow Rate (L/min) 40 Oxygen Delivery Method Mechanical Ventilator Weight: 307 lb 12.245 oz Body Mass Index (BMI) 45.8 Finger Stick Blood Glucose 193 Intake and Output for Last 24 Hours 12/31/17 01/01/18 01/02/18 23:59 23:59 23:59 Intake Total 2778.7 / 2778.7 2900 / 2900 1419 / 1419 Output Total 1974 / 1974 1875 / 1875 975 / 975 Balance 803.7 / 803.7 1025 / 1025 444 / 444 General: Alert, Cooperative, No apparent distress HEENT: Atraumatic, PERRLA, EOMI, Normocephalic, - - Has tracheostomy tube in place. Oral: Moist Mucosa Neck: Supple, No JVD, Negative Carotid Bruits Lungs: Clear to auscultation, Normal air movement, - - On ventilator via trach. Cardiovascular: Regular rate, Regular Rhythm, Normal S1, Normal S2, No murmurs Abdomen: Bowel Sounds Present, Soft, Non Tender, No Hepato-splenomegaly, Obese Extremities: No clubbing, No cyanosis, No edema, Capillary Refill Less than 3 Seconds Skin: No rashes, No breakdown Musculoskeletal: No Tenderness to Palpation of Joints or Extremities Lymphatic: No Cervical, Supraclavicular, or Inguinal Adenopathy Neurological: Cranial nerves II-XII grossly intact Psych/Mental Status: Normal Affect, Appropriate Microbiology Past 72 Hours 01/01/18 17:13 Sputum, Tracheal Aspirate Gram Stain - Final Laboratory Results 01/01/18 14:45: Potassium 4.2 01/01/18 18:01: POC Glucose 252 H 01/01/18 21:35: POC Glucose 187 H 01/02/18 00:13: POC Glucose 159 H 01/02/18 03:58: Sodium 147 H, Potassium 3.4 L, Chloride 106, Carbon Dioxide 32.0, Anion Gap 9, BUN 28 H, Creatinine 0.58 L, Estim Creat Clear Calc 132.67, Est GFR (MDRD) Af Amer 184, Est GFR (MDRD) Non-Af 152, BUN/Creatinine Ratio 48.3 H, Glucose 135 H, Calcium 8.8 01/02/18 05:30: POC Glucose 161 H 01/02/18 12:45: POC Glucose 172 H Diagnostic Data Brain CT 12/12/17 07:34 IMPRESSION: No CT evidence of acute intracranial hemorrhage. Electronically Signed: Katya Wright MD at 8:54 EST , Service support , Chest CTA 12/26/17 15:01 IMPRESSION: Dense bilateral lower lobe infiltrates.. No evidence for pulmonary embolus ASHD. No evidence for aortic aneurysm Electronically Signed: Filemon Orona MD at 16:35 EST , Service support , Chest X-Ray 01/01/18 08:45 IMPRESSION: No acute thoracic pathology. Electronically Signed: Karri Blas, at 9:19 EST Tel , Service support , KUB X-Ray 01/01/18 08:56 IMPRESSION: No bowel obstruction. Electronically Signed: Karri Blas, at 9:20 EST Tel , Service support , Current Medications Acetaminophen (Tylenol Liquid) 650 mg GT Q6H PRN PRN PRN Reason: FEVER Last Admin: 12/24/17 00:16 Dose: 650 mg Albuterol Sulfate (Ventolin Aerosols) 2.5 mg INHALATION Q6HWA.RT [facility] Last Admin: 01/02/18 07:23 Dose: 2.5 mg Aspirin (Aspirin, Baby) 81 mg GT DAILY [facility] Last Admin: 01/02/18 09:59 Dose: 81 mg Atorvastatin Calcium (Lipitor) 40 mg GT QHS [facility] Last Admin: 01/01/18 21:46 Dose: 40 mg Chlorhexidine Gluconate () 15 ml PO BID [facility] Last Admin: 01/02/18 10:02 Dose: 15 ml Chlorhexidine Gluconate () 1 each TOPICAL DAILY [facility] Last Admin: 01/02/18 04:50 Dose: 1 each Clopidogrel Bisulfate (Plavix) 75 mg GT DAILY [facility] Last Admin: 01/02/18 09:59 Dose: 75 mg Dextrose (D50w Syringe) 0 gm IV X1 PRN; Protocol PRN Reason: Hypoglycemia Famotidine (Pepcid) 20 mg GT BID [facility] Last Admin: 01/02/18 09:59 Dose: 20 mg Furosemide (Lasix) 40 mg IV Q8 [facility] Glucagon () 1 mg IM .X1 PRN PRN Reason: Hypoglycemia Heparin Sodium (Beef Lung) (Heparin 500 Unit/5 Ml (100/Ml)) 500 unit IV UD PRN PRN Reason: HEPARIN FLUSH Heparin Sodium (Porcine) (Heparin Na) 5,000 unit SC Q8 [facility] Last Admin: 01/02/18 05:32 Dose: 5,000 unit Sodium Chloride () 250 mls @ 15 mls/hr IV .[id number] PRN PRN Reason: SALINE FLUSH Sodium Chloride () 250 mls @ 15 mls/hr IV .[id number] PRN PRN Reason: SALINE FLUSH Last Admin: 12/16/17 21:29 Dose: 15 mls/hr Enteral Nutritional Formula (Vital Af 1.2 Jeremiah Liquid) 1,000 mls @ 65 mls/hr GT .[id number] [facility] Last Admin: 01/02/18 04:51 Dose: Not Given Sodium Chloride () 1,000 mls @ 0 mls/hr IV .Q0M JUANY Sodium Chloride () 1,000 mls @ 0 mls/hr IV .Q0M [facility] Insulin Glargine (Lantus (Bk)) 35 units SC BID [facility] Last Admin: 01/02/18 10:02 Dose: 35 units Insulin Human Lispro (Humalog Kwikpen ([facility])) 0 unit SC Q6 [facility]; Protocol Last Admin: 01/02/18 12:59 Dose: 3 u Losartan Potassium (Cozaar) 25 mg PO DAILY [facility] Last Admin: 01/02/18 10:02 Dose: 25 mg Magnesium Hydroxide (Milk Of Magnesia) 30 ml PO DAILY PRN PRN PRN Reason: Constipation Polyethylene Glycol (Miralax) 17 gm GT DAILY PRN PRN PRN Reason: Constipation Potassium Bicarb/Potassium Chloride (Potassium Chl 25 Meq Eff (For Liquid)) 25 meq GT TID [facility] Prednisone () 40 mg GT DAILY@0800 [facility] Last Admin: 01/02/18 09:59 Dose: 40 mg Sodium Chloride () 5 - 30 ml IV UD PRN PRN Reason: SALINE FLUSH Last Admin: 01/02/18 06:34 Dose: 10 ml Medical Necessity - Tobacco Use Smoking Status: Current every day smoker Assessment/Plan All Active Problems (Last Updated 12/25/17 @ 08:22 by Juan Manuel Subramanian DO) Aspiration pneumonia due to food (regurgitated) (Acute) Heart failure with preserved ejection fraction (Acute) GALILEA (acute kidney injury) (Acute) Klebsiella pneumonia (Acute) Acute respiratory failure with hypoxia and hypercapnia (Acute) Pneumococcal pneumonia (Acute) Metabolic encephalopathy (Resolved) Chest pain (Resolved) Respiratory failure, acute (Resolved) 1. Acute on chronic hypoxic and hypercapnic respiratory failure due to CHF exacerbation, sleep apnea and aspiration pneumonia * Today is day 3 of tracheostomy and day 22 on ventilator. * no leucocytosis; has been tachypneic, with RR ~ 22 and going up to 30 * Sputum culture from tracheal aspirate is pending. Previous sputum cultures grew Streptococcus pneumoniae and Klebsiella * currently off antibiotics; has remained afebrile * critical care and cardiology on board * currently on prednisone taper x 3 weeks * 2. Acute systolic CHF exacerbation * EF per cathj was 25%; on echo was 60% * cardiology on board * in cumulative negative balance by 6.8L since admission * IV lasix increased to 40mg q8 per cardiology * 3. Hypertension: Has been hypotensive during this admission. On losartan 25 mg daily. 4. Type 2 diabetes mellitus: On insulin sliding scale. Accu-Cheks AC at bedtime 5. Hypernatremia: Sodium is 147 today. Will monitor. Lasix will help with natriuresis 6. Hypokalemia: Potassium is 3.4 today. Will replace per protocol. 7. Paroxysmal atrial fibrillation: Was in RVR but is now rate controlled. Cardiology on board. 8. Acute metabolic encephalopathy due to general medical condition: Resolving. Patient is alert and able to communicate. Will monitor. 9. CAD status post stents: On aspirin and Plavix,atorvastatin as well as losar muñoz. DVT Prophylaxis: Heparin Nutrition: Tube feeding. GI prophylaxis: Famotidine. Other medical problems (complicates medical care) -EMILIA -morbid obesity Disposition: awaiting placement in LTAC Code Visit Inpatient E&M: [id number] [facility] L3
--- NOTE | 2018-01-02 14:12 | CASEMGMT ---
Called and spoke to Cheli intake at [facility]. Per Cheli still awaiting insurance approval. Cheli request updated clinical information be sent in the morning (progress notes, labs, respiratory status and attempted weaning, MARS, and therapy notes). CECIL BERMUDEZ will send updated clinicals in am.
--- NOTE | 2018-01-02 14:55 | PCM.PN.BLA ---
Progress Note The patient has no complaints avss Trach tube in place. cuff up and appropriate. NO bleeding. Sutures removed. Twill ties removed and velcro ties placed. A: POD #3 s/p tracheotomy P: Continue trach care. Call if questions or concerns.
[2018-01-02] MEDS: Furosemide 40 MG/4 ML Vial IV (15:20)
[2018-01-02 18:56] LABS: Bedside Glucose 210 mg/dL (70-110)
[2018-01-02] MEDS: Vital AF 1.2 Cal Liquid 1,000 ML 65 ML GT (22:15)
[2018-01-02] MEDS: Atorvastatin Calcium 40 MG Tablet GT (22:18)
[2018-01-02 23:31] LABS: Bedside Glucose 154 mg/dL (70-110)
[2018-01-02] MEDS: NYSTATIN 500,000 UNIT/5 ML UDC 500000 UNIT PO (23:37)
[2018-01-03] VITALS (48 sets, daily range): BP systolic 90–124; BP diastolic 48–79; PULSE 75–110; RESP 14–29; TEMP 36.4–37.3; O2SAT 87–100
[2018-01-03 00:20] LABS: Bedside Glucose 156 mg/dL (70-110)
[2018-01-03] MEDS: CHLORHEXIDINE GLUC 2% CLOTH 1 EACH TOWELETTE TOPICAL (01:50)
[2018-01-03] MEDS: 0.9% NaCl Peripheral Flush Adult/Peds IV ×3 (03:52→10:29)
[2018-01-03 04:24] LABS: Anion Gap 9 (5-15); BUN 29 mg/dL (7-18); BUN/Creat Ratio 55.9 RATIO (10-20); Chloride 105 mmol/L (98-107); Creatinine, Serum 0.52 mg/dL (0.70-1.30); EST Glomerular Filtration Rate 173 mL/min (>60); Est Glom Filt Rate - Afr Amer 209 mL/min (>60); Estimated Creatinine Clearance 147.98 ml/min; Glucose 113 mg/dL (74-106); Potassium 3.9 mmol/L (3.5-5.1); Sodium Level 145 mmol/L (136-145)
[2018-01-03 04:30] LABS: Absolute Lymphocyte Count 2.07 X10^3/ul (0.83-4.51); Absolute Neutrophil Count 6.2 X10^3/uL (2.0-7.7); Basophil# 0.01 X10^3/uL; Basophil% 0.1 % (0-1); Eosinophil# 0.08 X10^3/uL; Eosinophils% 0.9 % (0-5); Hematocrit 37.1 % (40-54); Hemoglobin 11.3 g/dl (13.0-16.5); Lymphocyte # 2.07 X10^3/ul (4.0); Lymphocyte % 23.7 % (19-41); Mean Corp Hgb Conc 30.5 g/gl (32-36); Mean Corpuscular Hgb 27.1 pg (27.0-32.0); Mean Platelet Vol. 11.6 fl (6.2-12.0); Monocyte# 0.33 X10^3/uL; Monocyte% 3.8 % (0-10); Neutrophil # 6.21 X10^3/uL (2.7-7.7); Neutrophil % 71.2 % (47-70); Platelet Count 136 K/mm3 (150-450); RBC Distribution Width CV 15.7 % (11.6-14.6); Red Blood Count 4.17 M/mm3 (4.6-6.2); White Blood Count 8.7 K/mm3 (4.4-11.0)
[2018-01-03 04:38] LABS: POSITIVE COUNT NO; POSITIVE DIFFERENTIAL NO; POSITIVE MORPHOLOGY NO
[2018-01-03] MEDS: Heparin Injection (Vial) 5,000 UNIT/ML VIAL 5000 UNIT SC ×3 (05:30→21:30)
[2018-01-03 05:31] LABS: Bedside Glucose 139 mg/dL (70-110)
[2018-01-03] MEDS: NYSTATIN 500,000 UNIT/5 ML UDC 500000 UNIT PO ×3 (05:31→18:49)
[2018-01-03] MEDS: Furosemide 40 MG/4 ML Vial IV (05:31)
--- NOTE | 2018-01-03 07:08 | PCM.PN.INT ---
Subjective: Patient did well overnight. Patient was transitioned to assist control ventilation and rested comfortably. Patient is reporting some pain at the trach site this morning. Patient has been tolerating tube feeds without complication. Patient's Butler was not removed General: Alert, Cooperative, No apparent distress, - - Morbidly obese. Follows commands. HEENT: Atraumatic, PERRLA, EOMI, Normocephalic, - - Trach is clean, dry and intact. Sutures have been removed. Oral: Moist Mucosa, No Gingival or Mucosal Lesions/ Ulcerations, - - Thrush noted. Neck: Supple, No JVD, No Nodes, Trachea Midline Lungs: No wheeze, No rales, Diminished, Rhonchi - Improved with suctioning, - - Symmetric expansion. No dullness to percussion. Cardiovascular: Regular rate, Regular Rhythm, Normal S1, Normal S2, No murmurs, No rub noted, No Gallop Abdomen: Bowel Sounds Present, Soft, Non Tender, Non-Distended, Obese Extremities: No cyanosis, Capillary Refill Less than 3 Seconds, Clubbing, Edema Skin: - - No significant change compared to previous Musculoskeletal: No Tenderness to Palpation of Joints or Extremities Lymphatic: No Cervical, Supraclavicular, or Inguinal Adenopathy Neurological: Cranial nerves II-XII grossly intact, Neuro grossly intact, Motor Exam 5/5 strength throughout Psych/Mental Status: Normal Affect, Appropriate Vital Signs Temp Pulse Resp BP Pulse Ox 37.0 C 81 23 H 119/57 L 90 01/03/18 04:00 01/03/18 06:00 01/03/18 06:00 01/03/18 06:00 01/03/18 06:00 Oxygen Flow Rate (L/min) 40 Oxygen Delivery Method Mechanical Ventilator Weight: 139.3 kg Body Mass Index (BMI) 45.8 Finger Stick Blood Glucose 193 Intake and Output for Last 24 Hours 01/01/18 01/02/18 01/03/18 23:59 23:59 23:59 Intake Total 2900 / 2900 3805 / 3805 1380 / 1380 Output Total 1875 / 1875 2525 / 2525 350 / 350 Balance 1025 / 1025 1280 / 1280 1030 / 1030 Labs (Last 48 Hours) 01/01/18 01/01/18 01/01/18 12:26 14:45 18:01 WBC RBC Hgb Hct MCV MCH MCHC RDW RDW Differential Plt Count MPV Immature Gran % (Auto) Neut % (Auto) Lymph % (Auto) [place] % (Auto) Eos % (Auto) Baso % (Auto) Absolute Neuts (auto) Absolute Lymphs (auto) Total Counted Sodium Potassium 4.2 Chloride Carbon Dioxide Anion Gap BUN Creatinine Estim Creat Clear Calc Est GFR (MDRD) Af Amer Est GFR (MDRD) Non-Af BUN/Creatinine Ratio Glucose Calcium POC Glucose 252 H 252 H 01/01/18 01/02/18 01/02/18 21:35 00:13 03:58 WBC RBC Hgb Hct MCV MCH MCHC RDW RDW Differential Plt Count MPV Immature Gran % (Auto) Neut % (Auto) Lymph % (Auto) [place] % (Auto) Eos % (Auto) Baso % (Auto) Absolute Neuts (auto) Absolute Lymphs (auto) Total Counted Sodium 147 H Potassium 3.4 L Chloride 106 Carbon Dioxide 32.0 Anion Gap 9 BUN 28 H Creatinine 0.58 L Estim Creat Clear Calc 132.67 Est GFR (MDRD) Af Amer 184 Est GFR (MDRD) Non-Af 152 BUN/Creatinine Ratio 48.3 H Glucose 135 H Calcium 8.8 POC Glucose 187 H 159 H 01/02/18 01/02/18 01/02/18 05:30 12:45 18:46 WBC RBC Hgb Hct MCV MCH MCHC RDW RDW Differential Plt Count MPV Immature Gran % (Auto) Neut % (Auto) Lymph % (Auto) [place] % (Auto) Eos % (Auto) Baso % (Auto) Absolute Neuts (auto) Absolute Lymphs (auto) Total Counted Sodium Potassium Chloride Carbon Dioxide Anion Gap BUN Creatinine Estim Creat Clear Calc Est GFR (MDRD) Af Amer Est GFR (MDRD) Non-Af BUN/Creatinine Ratio Glucose Calcium POC Glucose 161 H 172 H 210 H 01/02/18 01/02/18 01/03/18 22:12 23:35 04:00 WBC 8.7 RBC 4.17 L Hgb 11.3 L Hct 37.1 L MCV 89.0 MCH 27.1 MCHC 30.5 L RDW 15.7 H RDW Differential 50.0 H Plt Count 136 L MPV 11.6 Immature Gran % (Auto) 0.300 Neut % (Auto) 71.2 H Lymph % (Auto) 23.7 [place] % (Auto) 3.8 Eos % (Auto) 0.9 Baso % (Auto) 0.1 Absolute Neuts (auto) 6.2 Absolute Lymphs (auto) 2.07 Total Counted Not Reportable Sodium Potassium Chloride Carbon Dioxide Anion Gap BUN Creatinine Estim Creat Clear Calc Est GFR (MDRD) Af Amer Est GFR (MDRD) Non-Af BUN/Creatinine Ratio Glucose Calcium POC Glucose 154 H 156 H 01/03/18 01/03/18 04:00 05:26 WBC RBC Hgb Hct MCV MCH MCHC RDW RDW Differential Plt Count MPV Immature Gran % (Auto) Neut % (Auto) Lymph % (Auto) [place] % (Auto) Eos % (Auto) Baso % (Auto) Absolute Neuts (auto) Absolute Lymphs (auto) Total Counted Sodium 145 Potassium 3.9 Chloride 105 Carbon Dioxide 31.0 Anion Gap 9 BUN 29 H Creatinine 0.52 L Estim Creat Clear Calc 147.98 Est GFR (MDRD) Af Amer 209 Est GFR (MDRD) Non-Af 173 BUN/Creatinine Ratio 55.9 H Glucose 113 H Calcium 9.0 POC Glucose 139 H Microbiology 01/01/18 17:13 Sputum, Tracheal Aspirate Gram Stain - Final Medical Necessity - Tobacco Use Smoking Status: Current every day smoker Assessment/Plan All Active Problems (Last Updated 12/25/17 @ 08:22 by Juan Manuel Subramanian DO) Aspiration pneumonia due to food (regurgitated) (Acute) Heart failure with preserved ejection fraction (Acute) GALILEA (acute kidney injury) (Acute) Klebsiella pneumonia (Acute) Acute respiratory failure with hypoxia and hypercapnia (Acute) Pneumococcal pneumonia (Acute) Metabolic encephalopathy (Resolved) Chest pain (Resolved) Respiratory failure, acute (Resolved) RECOMMENDATIONS: 1. Aggressive pulmonary toileting 2. Attempt pressure support trial during the day 3. Wean FiO2 and PEEP as tolerated. 4. Continue tube feeds with free water flushes 5. May require increased diuretic therapy 6. Anticipate prolonged prednisone taper over 2-3 weeks 7. Disposition planning per case management IMPRESSIONS: 1. Acute on chronic combined respiratory failure Patient received tracheostomy on December 30. Patient has been having significant secretions that have resulted in some plugging, but this appears to be improving clinically. Will attempt to avoid any pulmonary toileting by vest therapy as patient recently had tracheostomy and PEG placement. Wean oxygen and PEEP as tolerated. Sutures removed by ENT. Anticipate transition to LTAC later this week. Patient may require increased diuretic therapy to maintain slightly negative fluid balance, but defer to cardiology 2. Metabolic encephalopathy RESOLVED > Patient does have a history of acute on chronic CO2 retention. We will continue to monitor closely. Continue to address chemistries as indicated 3. Decompensated heart failure/history of ischemic cardiomyopathy Patient's heart catheterization showed patent stents. Patient's fluid status continues to be somewhat of an issue. Patient is back on diuretic therapy. Further cardiology if this needs changed to 3 times daily versus addition of metolazone to maintain slightly negative fluid balance. Continue to monitor closely. 4. Diabetes mellitus Continue Accu-Cheks and sliding scale insulin coverage. The patient has been tolerant of tube feeds to date. 5. Obstructive sleep apnea The patient has a history of outpatient noncompliance with the use of nocturnal Pap therapy. He only utilizes supplemental oxygen on a nightly basis. Patient currently with a tracheostomy and ventilator support. 6. Ongoing tobacco dependence/super morbid obesity/history of medical noncompliance/hypertension Complicates care, management, recovery and prognosis. Nicotine replacement therapy can be utilized while admitted to the hospital. 7. Acute kidney injury Resolved. Likely secondary to overdiuresis previously. Diuretics have been reinitiated. Code Visit Inpatient E&M: [id number] [facility] L3
[2018-01-03] MEDS: Albuterol 2.5 MG/3 ML VIAL.NEB. INHALATION ×3 (07:16→18:43)
[2018-01-03] MEDS: Famotidine 20 MG Tablet GT ×2 (08:02→21:30)
[2018-01-03] MEDS: predniSONE 20 MG Tablet 40 MG GT (08:02)
[2018-01-03] MEDS: Aspirin 81 MG TAB.CHEW GT (08:02)
[2018-01-03] MEDS: Clopidogrel Bisulfate 75 MG Tablet GT (08:02)
--- NOTE | 2018-01-03 09:13 | PN.CARD_ITS ---
Subjectve: Patient still in the trach, was up in a chair yesterday, unable to completely wean off the ventilator. Diuresing well but urine appears to be slightly darker than yesterday. Despite diuresis patient is still in a positive fluid balance. Patient does not complain of chest pain or angina but does report that he is hungry and wishes to eat. Objective: Vital Signs Temp Pulse Resp BP Pulse Ox 97.8 F 86 23 H 95/56 L 93 01/03/18 08:22 01/03/18 08:22 01/03/18 08:22 01/03/18 08:22 01/03/18 08:22 Oxygen Flow Rate (L/min) 40 Oxygen Delivery Method Mechanical Ventilator Weight: 307 lb 1.663 oz Body Mass Index (BMI) 45.8 Finger Stick Blood Glucose 193 Intake and Output for Last 24 Hours 01/01/18 01/02/18 01/03/18 23:59 23:59 23:59 Intake Total 2900 / 2900 3805 / 3805 1500 / 1500 Output Total 1875 / 1875 2525 / 2525 350 / 350 Balance 1025 / 1025 1280 / 1280 1150 / 1150 General: Awake, Alert, Oriented x 3 HEENT: PERRL, EOMI, Sclera Non Icteric Neck: Supple, Good ROM, No Lymph Node Enlargement Lungs: Clear to auscultation Cardiovascular: Regular Rhythm, Normal S1, Normal S2, No Murmurs, No Rubs, No G allops Vascular: No Carotid Bruits, Normal Femoral Pulses, Normal Radial Pulses, Normal Dorsalis Pedal Pulse, Normal Posterior Tibial Pulses Abdomen: Bowel Sounds Present, Soft, Non Tender, No HSM, No Organomegaly Extremities: No Cyanosis, No Clubbing, No edema, Trace RLE Edema, Trace LLE Edema Neurological: No Focal Motor or Sensory Deficit 01/03/18 04:00: WBC 8.7, RBC 4.17 L, Hgb 11.3 L, Hct 37.1 L, MCV 89.0, MCH 27.1, MCHC 30.5 L, RDW 15.7 H, RDW Differential 50.0 H, Plt Count 136 L, MPV 11.6, Immature Gran % (Auto) 0.300, Neut % (Auto) 71.2 H, Lymph % (Auto) 23.7, [place] % (Auto) 3.8, Eos % (Auto) 0.9, Baso % (Auto) 0.1, Absolute Neuts (auto) 6.2, Total Counted Not Reportable 01/03/18 04:00: Sodium 145, Potassium 3.9, Chloride 105, Carbon Dioxide 31.0, Anion Gap 9, BUN 29 H, Creatinine 0.52 L, Est GFR (MDRD) Af Amer 209, Est GFR (MDRD) Non-Af 173, BUN/Creatinine Ratio 55.9 H, Glucose 113 H, Calcium 9.0 Rhythm: EKG: ECHO: Stress Test: Cardiac Cath: PCI: CT Surgery: Holter monitor: EPS: PPM: CXR: Chest CT Scan: Medical Necessity - Tobacco Use Smoking Status: Current every day smoker Assessment/Plan 1. Patient on tracheostomy with pressure support this morning. Patient has been in a positive fluid balance for several days time despite IV diuretic therapy as he transitions to tube feeds status post tracheostomy on 12/30/17. Ejection fraction is estimated by LV angiogram shows significant LV dysfunction in comparison to his echocardiogram although his echocardiogram has a very difficult study given his body habitus. My tendency would be to go with the LV angiogram rather than the echocardiogram at this point. Although patient is diuresing fairly well, he still remains in a positive fluid balance and still on pressure support. Nonetheless, he has diuresed quite well, and his edema has almost completely resolved in his lower extremities. In addition his right heart catheterization pressures were found to be normal. Would recommend discontinuation of IV Lasix therapy and switching him to Lasix 80 mg p.o. twice daily with intermittent metolazone as needed to match I's and O's. His blood pressure and heart rate are fairly well-controlled. Would recommend matching his I's and O's at this point. Coronary arteries reevaluated by catheterization several days ago which showed widely patent stents to his LAD and left circumflex, and severe disease of a nondominant right coronary artery. No additional intervention was performed at that time. Recommend continuing aspirin and Plavix. Would recommend restarting his losartan to 25 mg p.o. daily for afterload reduction as well. Maintain mean arterial pressure greater than 60. 2. Obstructive sleep apnea: The patient had evidence of pulmonary hypertension and right-sided heart failure most likely result of obstructive sleep apnea. He is on chronic O2 therapy at home as well. Watch cautiously for over diuresis as the patient may be preload dependent. Patient's right heart catheterization demonstrated normal right-sided pressures. 3. Hyperlipidemia: Continue statin based medications. 4. Thank you very much for the opportunity to participate in the cardiac care of your patient. Code Visit Inpatient E&M: 61785 Subs Hosp L2
[2018-01-03] MEDS: Losartan Potassium 25 MG Tablet PO (10:24)
--- NOTE | 2018-01-03 10:24 | CASEMGMT ---
Updated clinical information (progress notes, labs, med list, PT/OT notes, respiratory notes) faxed to Cheli at [facility] ([phone]). Fax confirmation received. Rhianna Pritchett LPN Clinical Support
[2018-01-03] MEDS: Chlorhexidine 15 ML PO ×2 (10:28→21:30)
--- NOTE | 2018-01-03 10:38 | CASEMGMT ---
Social Work: Attended ICU rounds. Per RN CM pre cert has been started by Marbin ROJAS. DIXONAC OPERATOR to continue to follow as needed for D/C planning and emotional support. PLAN: Patient to be discharged to LTACH when pre cert is obtained. BUDDY Samano
--- NOTE | 2018-01-03 11:14 | CASEMGMT ---
Received phone call from Cheli at [facility]. Updated clinicals were received by Cheli. Cheli called and spoke with Rad this morning, still working on pre-cert, could take 2-3 more days. Rhianna Pritchett LPN Clinical Support
[2018-01-03] MEDS: Insulin Lispro 100 UNIT/ML INSULN.PEN SC ×2 (12:51→18:49)
[2018-01-03 13:06] LABS: Bedside Glucose 239 mg/dL (70-110)
--- NOTE | 2018-01-03 13:46 | CASEMGMT ---
Received voicemail from Julia at [facility] requesting a call back. Called and spoke with Julia. Name, phone, and fax given to Julia for [facility]ANA Serrano. Julia also inquired about current ventilator settings, same info given as requested. will review LTACH request and Julia will notify RN-CM. RNMaria IsabelCM notified of above. Rhianna Pritchett LPN Clinical Support
[2018-01-03] MEDS: Vital AF 1.2 Cal Liquid 1,000 ML 65 ML GT (16:20)
--- NOTE | 2018-01-03 18:18 | PCM.PROGNOTE ---
Patient Problems: Active and Suspected Problems (Last Updated 12/25/17 @ 08:22 by Juan Manuel Subramanian DO) Aspiration pneumonia due to food (regurgitated) (Acute) Subjective: Patient was seen and examined in the ICU today, we are currently awaiting placement for the patient had an LTAC. Patient currently is on assist control ventilation, according to pulmonary medicine, patient has been tolerating his tube feeds. - Physical Exam General: Alert, Oriented x3, Cooperative, No apparent distress, Well developed HEENT: Atraumatic, PERRLA, EOMI, Normocephalic, - - Trach present Oral: Moist Mucosa Neck: Supple, No Nuchal Rigidity, Thyroid Normal Size and Texture, - - Trach present Lungs: Clear to auscultation, Normal air movement, No rhonchi, No wheeze Cardiovascular: Regular rate, Regular Rhythm, Normal S1, Normal S2, No murmurs, No Ectopic Activity, PMI Normal, No rub noted, No Gallop Abdomen: Bowel Sounds Present, Soft, Non Tender, Non-Distended, Obese Extremities: Capillary Refill Less than 3 Seconds Skin: No rashes, No breakdown Musculoskeletal: No Tenderness to Palpation of Joints or Extremities Neurological: Cranial nerves II-XII grossly intact, Neuro grossly intact, Sensory exam intact to light touch and pain, Coordination normal Psych/Mental Status: Normal Affect, Appropriate, Alert and oriented to time, place, person, mood and affect Vital Signs Temp Pulse Resp BP Pulse Ox 99.1 F 82 25 H 90/67 100 01/03/18 16:21 01/03/18 18:00 01/03/18 18:00 01/03/18 16:21 01/03/18 18:00 Oxygen Flow Rate (L/min) 40 Oxygen Delivery Method Mechanical Ventilator Weight: 139.3 kg Body Mass Index (BMI) 45.8 Finger Stick Blood Glucose 193 Intake and Output for Last 24 Hours 01/01/18 01/02/18 01/03/18 23:59 23:59 23:59 Intake Total 2900 / 2900 3805 / 3805 2199 / 2199 Output Total 1875 / 1875 2525 / 2525 1350 / 1350 Balance 1025 / 1025 1280 / 1280 849 / 849 Microbiology Past 72 Hours 01/01/18 17:13 Gram Stain - Final Sputum, Tracheal Aspirate Respiratory Culture - Final Gram positive milli Laboratory Tests Past 24 Hrs 01/03/18 01/03/18 04:00 04:00 WBC 8.7 RBC 4.17 L Hgb 11.3 L Hct 37.1 L MCV 89.0 MCH 27.1 MCHC 30.5 L RDW 15.7 H RDW Differential 50.0 H Plt Count 136 L MPV 11.6 Immature Gran % (Auto) 0.300 Neut % (Auto) 71.2 H Lymph % (Auto) 23.7 [place] % (Auto) 3.8 Eos % (Auto) 0.9 Baso % (Auto) 0.1 Absolute Neuts (auto) 6.2 Absolute Lymphs (auto) 2.07 Total Counted Not Reportable Sodium 145 Potassium 3.9 Chloride 105 Carbon Dioxide 31.0 Anion Gap 9 BUN 29 H Creatinine 0.52 L Estim Creat Clear Calc 147.98 Est GFR (MDRD) Af Amer 209 Est GFR (MDRD) Non-Af 173 BUN/Creatinine Ratio 55.9 H Glucose 113 H Calcium 9.0 POC Glucose 01/03/18 01/03/18 01/02/18 12:49 05:26 23:35 POC Glucose 239 H 139 H 156 H 01/02/18 01/02/18 22:12 18:46 POC Glucose 154 H 210 H Medical Necessity - Tobacco Use Smoking Status: Current every day smoker Assessment/Plan All Active Problems (Last Updated 12/25/17 @ 08:22 by Juan Manuel Subramanian DO) Aspiration pneumonia due to food (regurgitated) (Acute) Heart failure with preserved ejection fraction (Acute) GALILEA (acute kidney injury) (Acute) Klebsiella pneumonia (Acute) Acute respiratory failure with hypoxia and hypercapnia (Acute) Pneumococcal pneumonia (Acute) Metabolic encephalopathy (Resolved) Chest pain (Resolved) Respiratory failure, acute (Resolved) #1 acute on chronic combined respiratory failure-status post tracheostomy 12/30/17, pulmonary medicine is managing his vent #2 metabolic encephalopathy-resolved at this time #3 Ischemic cardiomyopathy-EF 25% #4 type 2 diabetes #5 obstructive sleep apnea #6 morbid obesity #7 hyperlipidemia #8 coronary artery disease #9 acute on chronic systolic congestive heart failure Code Visit Inpatient E&M: 11839 Subs Hosp L2
[2018-01-03] MEDS: Furosemide 80 MG Tablet PO (18:51)
[2018-01-03 18:56] LABS: Bedside Glucose 185 mg/dL (70-110)
[2018-01-03] MEDS: Atorvastatin Calcium 40 MG Tablet GT (21:30)
[2018-01-04] VITALS (36 sets, daily range): BP systolic 85–120; BP diastolic 41–68; PULSE 72–128; RESP 14–77; TEMP 36.6–37.3; O2SAT 89–100
[2018-01-04] MEDS: oxyCODONE 5 MG Tablet GT ×2 (00:24→14:31)
[2018-01-04] MEDS: NYSTATIN 500,000 UNIT/5 ML UDC 500000 UNIT PO ×4 (00:25→17:30)
[2018-01-04 00:35] LABS: Bedside Glucose 123 mg/dL (70-110)
[2018-01-04] MEDS: Heparin Injection (Vial) 5,000 UNIT/ML VIAL 5000 UNIT SC ×3 (05:38→21:56)
[2018-01-04 05:56] LABS: Bedside Glucose 138 mg/dL (70-110)
[2018-01-04] MEDS: Albuterol 2.5 MG/3 ML VIAL.NEB. INHALATION ×2 (07:00→13:33)
[2018-01-04] MEDS: predniSONE 20 MG Tablet 40 MG GT (08:23)
[2018-01-04] MEDS: Chlorhexidine 15 ML PO ×2 (08:23→21:56)
[2018-01-04] MEDS: Aspirin 81 MG TAB.CHEW GT (08:23)
[2018-01-04] MEDS: Losartan Potassium 25 MG Tablet PO (08:24)
[2018-01-04] MEDS: CHLORHEXIDINE GLUC 2% CLOTH 1 EACH TOWELETTE TOPICAL (08:24)
[2018-01-04] MEDS: Furosemide 80 MG Tablet PO ×2 (08:25→17:31)
[2018-01-04] MEDS: Clopidogrel Bisulfate 75 MG Tablet GT (08:26)
[2018-01-04] MEDS: Famotidine 20 MG Tablet GT ×2 (08:26→21:58)
[2018-01-04] MEDS: Vital AF 1.2 Cal Liquid 1,000 ML 65 ML GT (09:15)
--- NOTE | 2018-01-04 09:41 | PCM.PN.HOSP ---
Patient Problems: Active and Suspected Problems (Last Updated 12/25/17 @ 08:22 by Juan Manuel Subramanian DO) Aspiration pneumonia due to food (regurgitated) (Acute) Subjective: Patient seen and examined. He remains on ventilator via the trach and has a PEG tube in place. He was alert and able to answer questions by nodding or shaking his head. He denied any fever or chills with complaint of mild pain at site of PEG tube. She denied any diarrhea vomiting. Review of systems otherwise negative. Labs and vitals reviewed. Patient total negative balance of 5.2 L since admission. Weight is down to 306 pounds from 316 pounds on admission. Vitals/I&O's: Vital Signs Temp Pulse Resp BP Pulse Ox 98.5 F 77 19 H 88/53 L 90 01/04/18 08:00 01/04/18 09:00 01/04/18 09:00 01/04/18 09:00 01/04/18 09:00 Oxygen Flow Rate (L/min) 40 Oxygen Delivery Method Mechanical Ventilator Weight: 306 lb 7.08 oz Body Mass Index (BMI) 45.8 Finger Stick Blood Glucose 193 Intake and Output for Last 24 Hours 01/02/18 01/03/18 01/04/18 23:59 23:59 23:59 Intake Total 3805 / 3805 2692 / 2692 1038 / 1038 Output Total 2525 / 2525 1700 / 1700 700 / 700 Balance 1280 / 1280 992 / 992 338 / 338 General: Alert, Cooperative, No apparent distress, Lethargic HEENT: Atraumatic, PERRLA, EOMI, Normocephalic Oral: Moist Mucosa Neck: Supple, No JVD, Negative Carotid Bruits Lungs: - - Few fine crackles bibasally. On ventilator via trach. Cardiovascular: Regular rate, Regular Rhythm, Normal S1, Normal S2, No murmurs Abdomen: Bowel Sounds Present, Soft, Non Tender, Non-Distended, No Hepato-splenomegaly, Obese Extremities: No clubbing, No cyanosis, Edema - Bilateral pitting pedal edema has reduced significantly and is now only trace. Skin: - - Stasis dermatitis of lower extremities. Musculoskeletal: No Tenderness to Palpation of Joints or Extremities Lymphatic: No Cervical, Supraclavicular, or Inguinal Adenopathy Neurological: Cranial nerves II-XII grossly intact, Neuro grossly intact Psych/Mental Status: Flat Affect Microbiology Past 72 Hours 01/01/18 17:13 Sputum, Tracheal Aspirate Gram Stain - Final 01/01/18 17:13 Sputum, Tracheal Aspirate Respiratory Culture - Final Gram positive milli Laboratory Results 01/03/18 12:49: POC Glucose 239 H 01/03/18 18:47: POC Glucose 185 H 01/04/18 00:21: POC Glucose 123 H 01/04/18 05:33: POC Glucose 138 H Diagnostic Data Brain CT 12/12/17 07:34 IMPRESSION: No CT evidence of acute intracranial hemorrhage. Electronically Signed: Katya Wright MD at 8:54 EST , Service support , Chest CTA 12/26/17 15:01 IMPRESSION: Dense bilateral lower lobe infiltrates.. No evidence for pulmonary embolus ASHD. No evidence for aortic aneurysm Electronically Signed: Filmeon Orona MD at 16:35 EST , Service support , Chest X-Ray 01/01/18 08:45 IMPRESSION: No acute thoracic pathology. Electronically Signed: Karri Blas, at 9:19 EST Tel , Service support , KUB X-Ray 01/01/18 08:56 IMPRESSION: No bowel obstruction. Electronically Signed: Karri Blas at 9:20 EST Tel , Service support , Current Medications Acetaminophen (Tylenol Liquid) 650 mg GT Q6H PRN PRN PRN Reason: FEVER Last Admin: 12/24/17 00:16 Dose: 650 mg Albuterol Sulfate (Ventolin Aerosols) 2.5 mg INHALATION Q6HWA.RT JUANY Last Admin: 01/04/18 07:00 Dose: 2.5 mg Aspirin (Aspirin, Baby) 81 mg GT DAILY [facility] Last Admin: 01/04/18 08:23 Dose: 81 mg Atorvastatin Calcium (Lipitor) 40 mg GT QHS [facility] Last Admin: 01/03/18 21:30 Dose: 40 mg Chlorhexidine Gluconate () 15 ml PO BID [facility] Last Admin: 01/04/18 08:23 Dose: 15 ml Chlorhexidine Gluconate () 1 each TOPICAL DAILY [facility] Last Admin: 01/04/18 08:24 Dose: 1 each Clopidogrel Bisulfate (Plavix) 75 mg GT DAILY [facility] Last Admin: 01/04/18 08:26 Dose: 75 mg Dextrose (D50w Syringe) 0 gm IV X1 PRN; Protocol PRN Reason: Hypoglycemia Famotidine (Pepcid) 20 mg GT BID [facility] Last Admin: 01/04/18 08:26 Dose: 20 mg Furosemide (Lasix) 80 mg PO BID@1000,1800 [facility] Last Admin: 01/04/18 08:25 Dose: 80 mg Glucagon () 1 mg IM .X1 PRN PRN Reason: Hypoglycemia Heparin Sodium (Beef Lung) (Heparin 500 Unit/5 Ml (100/Ml)) 500 unit IV UD PRN PRN Reason: HEPARIN FLUSH Heparin Sodium (Porcine) (Heparin Na) 5,000 unit SC Q8 [facility] Last Admin: 01/04/18 05:38 Dose: 5,000 unit Sodium Chloride () 250 mls @ 15 mls/hr IV .[id number] PRN PRN Reason: SALINE FLUSH Sodium Chloride () 250 mls @ 15 mls/hr IV .[id number] PRN PRN Reason: SALINE FLUSH Last Admin: 12/16/17 21:29 Dose: 15 mls/hr Enteral Nutritional Formula (Vital Af 1.2 Jeremiah Liquid) 1,000 mls @ 65 mls/hr GT .[id number] [facility] Last Admin: 01/04/18 09:15 Dose: 65 mls/hr Sodium Chloride () 1,000 mls @ 0 mls/hr IV .Q0M JUANY Sodium Chloride () 1,000 mls @ 0 mls/hr IV .Q0M [facility] Insulin Glargine (Lantus (Bkc)) 35 units SC BID [facility] Last Admin: 01/04/18 08:25 Dose: 35 units Insulin Human Lispro (Humalog Kwikpen (Bk)) 0 unit SC Q6 [facility]; Protocol Last Admin: 01/04/18 05:37 Dose: Not Given Losartan Potassium (Cozaar) 25 mg PO DAILY [facility] Last Admin: 01/04/18 08:24 Dose: 25 mg Magnesium Hydroxide (Milk Of Magnesia) 30 ml PO DAILY PRN PRN PRN Reason: Constipation Nystatin (Nystatin) 500,000 unit PO Q6 JUANY Last Admin: 01/04/18 05:37 Dose: 500,000 unit Oxycodone HCl (Oxyir) 5 mg GT Q6H PRN PRN PRN Reason: SEVERE PAIN (6-10/10) Last Admin: 01/04/18 00:24 Dose: 5 mg Polyethylene Glycol (Miralax) 17 gm GT DAILY PRN PRN PRN Reason: Constipation Potassium Bicarb/Potassium Chloride (Potassium Chl 25 Meq Eff (For Liquid)) 25 meq GT TID [facility] Last Admin: 01/04/18 05:38 Dose: 25 meq Prednisone () 40 mg GT DAILY@0800 [facility] Last Admin: 01/04/18 08:23 Dose: 40 mg Sodium Chloride () 5 - 30 ml IV UD PRN PRN Reason: SALINE FLUSH Last Admin: 01/03/18 10:29 Dose: 20 ml Medical Necessity - Tobacco Use Smoking Status: Current every day smoker Assessment/Plan All Active Problems (Last Updated 12/25/17 @ 08:22 by Juan Manuel Subramanian DO) Aspiration pneumonia due to food (regurgitated) (Acute) Heart failure with preserved ejection fraction (Acute) GALILEA (acute kidney injury) (Acute) Klebsiella pneumonia (Acute) Acute respiratory failure with hypoxia and hypercapnia (Acute) Pneumococcal pneumonia (Acute) Metabolic encephalopathy (Resolved) Chest pain (Resolved) Respiratory failure, acute (Resolved) 1. Acute on chronic hypoxic and hypercapnic respiratory failure due to CHF exacerbation, sleep apnea and aspiration pneumonia Today is day 5 of tracheostomy and day 23 on ventilator. no leucocytosis; remains tachypneic Sputum culture from tracheal aspirate is pending. Previous sputum cultures grew Streptococcus pneumoniae and Klebsiella currently off antibiotics; has remained afebrile critical care and cardiology on board currently on prednisone taper x 3 weeks 2. Acute systolic CHF exacerbation EF per cath was 25%; on echo was 60% cardiology on board in cumulative negative balance by 5.2 since admission IV lasix decreased meka 80mg bid. 3. Hypertension: Has been hypotensive during this admission. On losartan 25 mg daily and Coreg. BP has been fluctuating between 100s and 80s systolic. 4. Type 2 diabetes mellitus: On insulin sliding scale. Accu-Cheks q6 5. Hypernatremia: resolved. Na came down to 145. 6. Hypokalemia: resolved. 7. Paroxysmal atrial fibrillation: Was in RVR but is now rate controlled. Cardiology on board. 8. Acute metabolic encephalopathy due to general medical condition: Resolving. Patient is alert, though lethargic. Will monitor 9. CAD status post stents: On aspirin and Plavix,atorvastatin as well as losartan. DVT Prophylaxis: Heparin Nutrition: Tube feeding. GI prophylaxis: Famotidine. Other medical problems (complicates medical care) -EMILIA -morbid obesity Disposition: awaiting placement in LTAC Code Visit Inpatient E&M: 98491 [facility] Hosp L3
--- NOTE | 2018-01-04 09:50 | PN_ITS ---
Patient Problems: Active and Suspected Problems (Last Updated 12/25/17 @ 08:22 by Juan Manuel Subramanian DO) Aspiration pneumonia due to food (regurgitated) (Acute) Subjective: Patient seen and examined. He remains on ventilator via the trach and has a PEG tube in place. He was alert and able to answer questions by nodding or shaking his head. He denied any fever or chills with complaint of mild pain at site of PEG tube. She denied any diarrhea vomiting. Review of systems otherwise negative. Labs and vitals reviewed. Patient total negative balance of 5.2 L since admission. Weight is down to 306 pounds from 316 pounds on admission. Vitals/I&O's: Vital Signs Temp Pulse Resp BP Pulse Ox 98.5 F 77 19 H 88/53 L 90 01/04/18 08:00 01/04/18 09:00 01/04/18 09:00 01/04/18 09:00 01/04/18 09:00 Oxygen Flow Rate (L/min) 40 Oxygen Delivery Method Mechanical Ventilator Weight: 306 lb 7.08 oz Body Mass Index (BMI) 45.8 Finger Stick Blood Glucose 193 Intake and Output for Last 24 Hours 01/02/18 01/03/18 01/04/18 23:59 23:59 23:59 Intake Total 3805 / 3805 2692 / 2692 1038 / 1038 Output Total 2525 / 2525 1700 / 1700 700 / 700 Balance 1280 / 1280 992 / 992 338 / 338 General: Alert, Cooperative, No apparent distress, Lethargic HEENT: Atraumatic, PERRLA, EOMI, Normocephalic Oral: Moist Mucosa Neck: Supple, No JVD, Negative Carotid Bruits Lungs: - - Few fine crackles bibasally. On ventilator via trach. Cardiovascular: Regular rate, Regular Rhythm, Normal S1, Normal S2, No murmurs Abdomen: Bowel Sounds Present, Soft, Non Tender, Non-Distended, No Hepato- splenomegaly, Obese Extremities: No clubbing, No cyanosis, Edema - Bilateral pitting pedal edema has reduced significantly and is now only trace. Skin: - - Stasis dermatitis of lower extremities. Musculoskeletal: No Tenderness to Palpation of Joints or Extremities Lymphatic: No Cervical, Supraclavicular, or Inguinal Adenopathy Neurological: Cranial nerves II-XII grossly intact, Neuro grossly intact Psych/Mental Status: Flat Affect Microbiology Past 72 Hours 01/01/18 17:13 Sputum, Tracheal Aspirate Gram Stain - Final 01/01/18 17:13 Sputum, Tracheal Aspirate Respiratory Culture - Final Gram positive milli Laboratory Results 01/03/18 12:49: POC Glucose 239 H 01/03/18 18:47: POC Glucose 185 H 01/04/18 00:21: POC Glucose 123 H 01/04/18 05:33: POC Glucose 138 H Diagnostic Data Brain CT 12/12/17 07:34 IMPRESSION: No CT evidence of acute intracranial hemorrhage. Electronically Signed: Katya Wright MD at 8:54 EST , Service support , Chest CTA 12/26/17 15:01 IMPRESSION: Dense bilateral lower lobe infiltrates.. No evidence for pulmonary embolus ASHD. No evidence for aortic aneurysm Electronically Signed: Filemon Orona MD at 16:35 EST , Service support , Chest X-Ray 01/01/18 08:45 IMPRESSION: No acute thoracic pathology. Electronically Signed: Karri Blas, at 9:19 EST Tel , Service support , KUB X-Ray 01/01/18 08:56 IMPRESSION: No bowel obstruction. Electronically Signed: Karri Blas at 9:20 EST Tel , Service support , Current Medications Acetaminophen (Tylenol Liquid) 650 mg GT Q6H PRN PRN PRN Reason: FEVER Last Admin: 12/24/17 00:16 Dose: 650 mg Albuterol Sulfate (Ventolin Aerosols) 2.5 mg INHALATION Q6HWA.RT JUANY Last Admin: 01/04/18 07:00 Dose: 2.5 mg Aspirin (Aspirin, Baby) 81 mg GT DAILY [facility] Last Admin: 01/04/18 08:23 Dose: 81 mg Atorvastatin Calcium (Lipitor) 40 mg GT QHS [facility] Last Admin: 01/03/18 21:30 Dose: 40 mg Chlorhexidine Gluconate () 15 ml PO BID [facility] Last Admin: 01/04/18 08:23 Dose: 15 ml Chlorhexidine Gluconate () 1 each TOPICAL DAILY [facility] Last Admin: 01/04/18 08:24 Dose: 1 each Clopidogrel Bisulfate (Plavix) 75 mg GT DAILY [facility] Last Admin: 01/04/18 08:26 Dose: 75 mg Dextrose (D50w Syringe) 0 gm IV X1 PRN; Protocol PRN Reason: Hypoglycemia Famotidine (Pepcid) 20 mg GT BID [facility] Last Admin: 01/04/18 08:26 Dose: 20 mg Furosemide (Lasix) 80 mg PO BID@1000,1800 [facility] Last Admin: 01/04/18 08:25 Dose: 80 mg Glucagon () 1 mg IM .X1 PRN PRN Reason: Hypoglycemia Heparin Sodium (Beef Lung) (Heparin 500 Unit/5 Ml (100/Ml)) 500 unit IV UD PRN PRN Reason: HEPARIN FLUSH Heparin Sodium (Porcine) (Heparin Na) 5,000 unit SC Q8 [facility] Last Admin: 01/04/18 05:38 Dose: 5,000 unit Sodium Chloride () 250 mls @ 15 mls/hr IV .[id number] PRN PRN Reason: SALINE FLUSH Sodium Chloride () 250 mls @ 15 mls/hr IV .[id number] PRN PRN Reason: SALINE FLUSH Last Admin: 12/16/17 21:29 Dose: 15 mls/hr Enteral Nutritional Formula (Vital Af 1.2 Jeremiah Liquid) 1,000 mls @ 65 mls/hr GT .[id number] [facility] Last Admin: 01/04/18 09:15 Dose: 65 mls/hr Sodium Chloride () 1,000 mls @ 0 mls/hr IV .Q0M JUANY Sodium Chloride () 1,000 mls @ 0 mls/hr IV .Q0M [facility] Insulin Glargine (Lantus (Bkc)) 35 units SC BID [facility] Last Admin: 01/04/18 08:25 Dose: 35 units Insulin Human Lispro (Humalog Kwikpen (Bk)) 0 unit SC Q6 [facility]; Protocol Last Admin: 01/04/18 05:37 Dose: Not Given Losartan Potassium (Cozaar) 25 mg PO DAILY [facility] Last Admin: 01/04/18 08:24 Dose: 25 mg Magnesium Hydroxide (Milk Of Magnesia) 30 ml PO DAILY PRN PRN PRN Reason: Constipation Nystatin (Nystatin) 500,000 unit PO Q6 JUANY Last Admin: 01/04/18 05:37 Dose: 500,000 unit Oxycodone HCl (Oxyir) 5 mg GT Q6H PRN PRN PRN Reason: SEVERE PAIN (6-10/10) Last Admin: 01/04/18 00:24 Dose: 5 mg Polyethylene Glycol (Miralax) 17 gm GT DAILY PRN PRN PRN Reason: Constipation Potassium Bicarb/Potassium Chloride (Potassium Chl 25 Meq Eff (For Liquid)) 25 meq GT TID [facility] Last Admin: 01/04/18 05:38 Dose: 25 meq Prednisone () 40 mg GT DAILY@0800 [facility] Last Admin: 01/04/18 08:23 Dose: 40 mg Sodium Chloride () 5 - 30 ml IV UD PRN PRN Reason: SALINE FLUSH Last Admin: 01/03/18 10:29 Dose: 20 ml Medical Necessity - Tobacco Use Smoking Status: Current every day smoker Assessment/Plan All Active Problems (Last Updated 12/25/17 @ 08:22 by Juan Manuel Subramanian DO) Aspiration pneumonia due to food (regurgitated) (Acute) Heart failure with preserved ejection fraction (Acute) GALILEA (acute kidney injury) (Acute) Klebsiella pneumonia (Acute) Acute respiratory failure with hypoxia and hypercapnia (Acute) Pneumococcal pneumonia (Acute) Metabolic encephalopathy (Resolved) Chest pain (Resolved) Respiratory failure, acute (Resolved) 1. Acute on chronic hypoxic and hypercapnic respiratory failure due to CHF exacerbation, sleep apnea and aspiration pneumonia * Today is day 5 of tracheostomy and day 23 on ventilator. * no leucocytosis; remains tachypneic * Sputum culture from tracheal aspirate is pending. Previous sputum cultures grew Streptococcus pneumoniae and Klebsiella * currently off antibiotics; has remained afebrile * critical care and cardiology on board * currently on prednisone taper x 3 weeks * 2. Acute systolic CHF exacerbation * EF per cath was 25%; on echo was 60% * cardiology on board * in cumulative negative balance by 5.2 since admission * IV lasix decreased meka 80mg bid. * 3. Hypertension: Has been hypotensive during this admission. On losartan 25 mg daily and Coreg. BP has been fluctuating between 100s and 80s systolic. 4. Type 2 diabetes mellitus: On insulin sliding scale. Accu-Cheks q6 5. Hypernatremia: resolved. Na came down to 145. 6. Hypokalemia: resolved. 7. Paroxysmal atrial fibrillation: Was in RVR but is now rate controlled. Cardiology on board. 8. Acute metabolic encephalopathy due to general medical condition: Resolving. Patient is alert, though lethargic. Will monitor 9. CAD status post stents: On aspirin and Plavix,atorvastatin as well as losartan. DVT Prophylaxis: Heparin Nutrition: Tube feeding. GI prophylaxis: Famotidine. Other medical problems (complicates medical care) -EMILIA -morbid obesity Disposition: awaiting placement in LTAC Code Visit Inpatient E&M: [id number] [facility] Hosp L3
--- NOTE | 2018-01-04 10:19 | PCM.PN.INT ---
Subjective: Patient did well overnight. Patient did remain on AC for a majority of the day yesterday, but was able to go to pressure support this morning. Patient did well with therapy yesterday and was able to stand and take sidesteps. Patient is reporting no pain at this time. Patient continues to tolerate tube feeds. General: Alert, Cooperative, No apparent distress, - - Follows commands. Motions appropriately. HEENT: Atraumatic, PERRLA, EOMI, Normocephalic, - - No scleral icterus or injection noted. Oral: Moist Mucosa, No Gingival or Mucosal Lesions/ Ulcerations Neck: Supple, No JVD, No Nodes, Trachea Midline, - - Trach is clean, dry and intact. Lungs: No rhonchi, No wheeze, No rales, Diminished Cardiovascular: Regular rate, Regular Rhythm, Normal S1, Normal S2, No murmurs, No rub noted, No Gallop Abdomen: Bowel Sounds Present, Soft, Non Tender, Non-Distended, Obese, - - PEG is clean, dry and intact. Extremities: No cyanosis, Capillary Refill Less than 3 Seconds, Clubbing, Edema - Trace lower extremity Skin: - - No significant change compared to previous Musculoskeletal: No Tenderness to Palpation of Joints or Extremities Lymphatic: No Cervical, Supraclavicular, or Inguinal Adenopathy Neurological: Cranial nerves II-XII grossly intact, Neuro grossly intact, Motor Exam 5/5 strength throughout Psych/Mental Status: Normal Affect, Appropriate Vital Signs Temp Pulse Resp BP Pulse Ox 36.9 C 77 19 H 88/53 L 90 01/04/18 08:00 01/04/18 09:00 01/04/18 09:00 01/04/18 09:00 01/04/18 09:00 Oxygen Flow Rate (L/min) 40 Oxygen Delivery Method Mechanical Ventilator Weight: 139 kg Body Mass Index (BMI) 45.8 Finger Stick Blood Glucose 193 Intake and Output for Last 24 Hours 01/02/18 01/03/18 01/04/18 23:59 23:59 23:59 Intake Total 3805 / 3805 2692 / 2692 1038 / 1038 Output Total 2525 / 2525 1700 / 1700 700 / 700 Balance 1280 / 1280 992 / 992 338 / 338 Labs (Last 48 Hours) 01/02/18 01/02/18 01/02/18 12:45 18:46 22:12 WBC RBC Hgb Hct MCV MCH MCHC RDW RDW Differential Plt Count MPV Immature Gran % (Auto) Neut % (Auto) Lymph % (Auto) [place] % (Auto) Eos % (Auto) Baso % (Auto) Absolute Neuts (auto) Absolute Lymphs (auto) Total Counted Sodium Potassium Chloride Carbon Dioxide Anion Gap BUN Creatinine Estim Creat Clear Calc Est GFR (MDRD) Af Amer Est GFR (MDRD) Non-Af BUN/Creatinine Ratio Glucose Calcium POC Glucose 172 H 210 H 154 H 01/02/18 01/03/18 01/03/18 23:35 04:00 04:00 WBC 8.7 RBC 4.17 L Hgb 11.3 L Hct 37.1 L MCV 89.0 MCH 27.1 MCHC 30.5 L RDW 15.7 H RDW Differential 50.0 H Plt Count 136 L MPV 11.6 Immature Gran % (Auto) 0.300 Neut % (Auto) 71.2 H Lymph % (Auto) 23.7 [place] % (Auto) 3.8 Eos % (Auto) 0.9 Baso % (Auto) 0.1 Absolute Neuts (auto) 6.2 Absolute Lymphs (auto) 2.07 Total Counted Not Reportable Sodium 145 Potassium 3.9 Chloride 105 Carbon Dioxide 31.0 Anion Gap 9 BUN 29 H Creatinine 0.52 L Estim Creat Clear Calc 147.98 Est GFR (MDRD) Af Amer 209 Est GFR (MDRD) Non-Af 173 BUN/Creatinine Ratio 55.9 H Glucose 113 H Calcium 9.0 POC Glucose 156 H 01/03/18 01/03/18 01/03/18 05:26 12:49 18:47 WBC RBC Hgb Hct MCV MCH MCHC RDW RDW Differential Plt Count MPV Immature Gran % (Auto) Neut % (Auto) Lymph % (Auto) [place] % (Auto) Eos % (Auto) Baso % (Auto) Absolute Neuts (auto) Absolute Lymphs (auto) Total Counted Sodium Potassium Chloride Carbon Dioxide Anion Gap BUN Creatinine Estim Creat Clear Calc Est GFR (MDRD) Af Amer Est GFR (MDRD) Non-Af BUN/Creatinine Ratio Glucose Calcium POC Glucose 139 H 239 H 185 H 01/04/18 01/04/18 00:21 05:33 WBC RBC Hgb Hct MCV MCH MCHC RDW RDW Differential Plt Count MPV Immature Gran % (Auto) Neut % (Auto) Lymph % (Auto) [place] % (Auto) Eos % (Auto) Baso % (Auto) Absolute Neuts (auto) Absolute Lymphs (auto) Total Counted Sodium Potassium Chloride Carbon Dioxide Anion Gap BUN Creatinine Estim Creat Clear Calc Est GFR (MDRD) Af Amer Est GFR (MDRD) Non-Af BUN/Creatinine Ratio Glucose Calcium POC Glucose 123 H 138 H Microbiology 01/01/18 17:13 Sputum, Tracheal Aspirate Gram Stain - Final 01/01/18 17:13 Sputum, Tracheal Aspirate Respiratory Culture - Final Gram positive milli Medical Necessity - Tobacco Use Smoking Status: Current every day smoker Assessment/Plan All Active Problems (Last Updated 12/25/17 @ 08:22 by Juan Manuel Subramanian DO) Aspiration pneumonia due to food (regurgitated) (Acute) Heart failure with preserved ejection fraction (Acute) GALILEA (acute kidney injury) (Acute) Klebsiella pneumonia (Acute) Acute respiratory failure with hypoxia and hypercapnia (Acute) Pneumococcal pneumonia (Acute) Metabolic encephalopathy (Resolved) Chest pain (Resolved) Respiratory failure, acute (Resolved) RECOMMENDATIONS: 1. Aggressive pulmonary toileting 2. Attempt pressure support trial during the day 3. Wean FiO2 and PEEP as tolerated. 4. Continue tube feeds with free water flushes 5. May require increased diuretic therapy 6. Anticipate prolonged prednisone taper over 2-3 weeks 7. Disposition planning per case management IMPRESSIONS: 1. Acute on chronic combined respiratory failure Patient received tracheostomy on December 30. Patient has been having significant secretions that have resulted in some plugging, but this appears to be improving clinically. Will attempt to avoid any pulmonary toileting by vest therapy as patient recently had tracheostomy and PEG placement. Highly variable oxygenation status lately. Sutures removed by ENT. LTAC reportedly denied by insurance company. They appear to be delaying disposition and are requesting a peer to peer. It was suggested that we attempt to wean from the ventilator and sent to an ECF.. Patient may require increased diuretic therapy to maintain slightly negative fluid balance, but defer to cardiology 2. Metabolic encephalopathy RESOLVED > Patient does have a history of acute on chronic CO2 retention. We will continue to monitor closely. Continue to address chemistries as indicated 3. Decompensated heart failure/history of ischemic cardiomyopathy Patient's heart catheterization showed patent stents. Patient's fluid status continues to be somewhat of an issue. Patient is back on diuretic therapy. Further cardiology if this needs changed to 3 times daily versus addition of metolazone to maintain slightly negative fluid balance. Continue to monitor closely. 4. Diabetes mellitus Continue Accu-Cheks and sliding scale insulin coverage. The patient has been tolerant of tube feeds to date. 5. Obstructive sleep apnea The patient has a history of outpatient noncompliance with the use of nocturnal Pap therapy. He only utilizes supplemental oxygen on a nightly basis. Patient currently with a tracheostomy and ventilator support. 6. Ongoing tobacco dependence/super morbid obesity/history of medical noncompliance/hypertension Complicates care, management, recovery and prognosis. Nicotine replacement therapy can be utilized while admitted to the hospital. 7. Acute kidney injury Resolved. Likely secondary to overdiuresis previously. Diuretics have been reinitiated. Code Visit Inpatient E&M: [id number] [facility] Hosp L3
[2018-01-04] MEDS: Insulin Lispro 100 UNIT/ML INSULN.PEN SC ×2 (11:43→17:25)
[2018-01-04 11:51] LABS: Bedside Glucose 195 mg/dL (70-110)
[2018-01-04 17:36] LABS: Bedside Glucose 213 mg/dL (70-110)
[2018-01-04] MEDS: Atorvastatin Calcium 40 MG Tablet GT (21:57)
[2018-01-05] VITALS (34 sets, daily range): BP systolic 76–119; BP diastolic 43–74; PULSE 71–94; RESP 14–74; TEMP 36.3–37.1; O2SAT 88–98
[2018-01-05] MEDS: NYSTATIN 500,000 UNIT/5 ML UDC 500000 UNIT PO ×5 (00:14→23:28)
[2018-01-05 00:26] LABS: Bedside Glucose 133 mg/dL (70-110)
[2018-01-05] MEDS: Albuterol 2.5 MG/3 ML VIAL.NEB. INHALATION ×5 (01:00→23:00)
[2018-01-05] MEDS: oxyCODONE 5 MG Tablet GT ×2 (02:13→21:17)
[2018-01-05] MEDS: Vital AF 1.2 Cal Liquid 1,000 ML 65 ML GT ×2 (02:17→21:31)
[2018-01-05 04:30] LABS: Absolute Lymphocyte Count 2.01 X10^3/ul (0.83-4.51); Absolute Neutrophil Count 5.6 X10^3/uL (2.0-7.7); Basophil# 0.02 X10^3/uL; Basophil% 0.2 % (0-1); Eosinophil# 0.08 X10^3/uL; Hematocrit 36.2 % (40-54); Hemoglobin 11.3 g/dl (13.0-16.5); Lymphocyte # 2.01 X10^3/ul (4.0); Lymphocyte % 24.3 % (19-41); Mean Corp Hgb Conc 31.2 g/gl (32-36); Mean Corpuscular Hgb 27.8 pg (27.0-32.0); Mean Corpuscular Volume 89.2 fL (80-94); Monocyte# 0.45 X10^3/uL; Monocyte% 5.4 % (0-10); Neutrophil # 5.61 X10^3/uL (2.7-7.7); Neutrophil % 67.9 % (47-70); Platelet Count 121 K/mm3 (150-450); RBC Distribution Width CV 15.7 % (11.6-14.6); RBC Distribution Width SD 50.5 fl (35.1-43.9); Red Blood Count 4.06 M/mm3 (4.6-6.2); White Blood Count 8.3 K/mm3 (4.4-11.0)
[2018-01-05 04:32] LABS: POSITIVE COUNT NO; POSITIVE DIFFERENTIAL NO; POSITIVE MORPHOLOGY NO
[2018-01-05 04:45] LABS: Anion Gap 6 (5-15); BUN 31 mg/dL (7-18); BUN/Creat Ratio 48.7 RATIO (10-20); Calcium,Total 8.9 mg/dL (8.5-10.1); Chloride 105 mmol/L (98-107); Creatinine, Serum 0.64 mg/dL (0.70-1.30); EST Glomerular Filtration Rate 136 mL/min (>60); Est Glom Filt Rate - Afr Amer 165 mL/min (>60); Estimated Creatinine Clearance 120.23 ml/min; Glucose 97 mg/dL (74-106); Potassium 3.9 mmol/L (3.5-5.1); Sodium Level 144 mmol/L (136-145)
[2018-01-05] MEDS: Heparin Injection (Vial) 5,000 UNIT/ML VIAL 5000 UNIT SC ×3 (06:00→21:11)
[2018-01-05] MEDS: CHLORHEXIDINE GLUC 2% CLOTH 1 EACH TOWELETTE TOPICAL (06:01)
[2018-01-05 06:11] LABS: Bedside Glucose 100 mg/dL (70-110)
--- NOTE | 2018-01-05 07:09 | PN_ITS ---
Subjective: Patient did well overnight. Patient did have some issues with mucous plugs, but only desaturated into the lower 90s. Patient also had a large bowel movement overnight. Patient is attempting to talk around his trach. Patient denies any pain at this time. General: Alert, Cooperative, No apparent distress, - - Morbidly obese. Follows commands. Attempts to vocalize around the trach. HEENT: Atraumatic, PERRLA, EOMI, Normocephalic, - - No scleral icterus or injection noted. Oral: Moist Mucosa, No Gingival or Mucosal Lesions/ Ulcerations Neck: Supple, No JVD, No Nodes, Trachea Midline, - - Trach is clean, dry and intact. Lungs: No rhonchi, No wheeze, No rales, Diminished, - - Symmetric expansion. No dullness to percussion. Patient was suctioned just prior to my evaluation. Cardiovascular: Regular rate, Regular Rhythm, Normal S1, Normal S2, No murmurs, No rub noted, No Gallop Abdomen: Bowel Sounds Present, Soft, Non Tender, Non-Distended, Obese Extremities: No cyanosis, Clubbing, Edema - Trace lower extremity Skin: - - No significant change Musculoskeletal: No Tenderness to Palpation of Joints or Extremities Lymphatic: No Cervical, Supraclavicular, or Inguinal Adenopathy Neurological: Cranial nerves II-XII grossly intact, Neuro grossly intact, Motor Exam 5/5 strength throughout Psych/Mental Status: Normal Affect, Appropriate Vital Signs Temp Pulse Resp BP Pulse Ox 36.9 C 71 20 H 91/52 L 95 01/05/18 04:00 01/05/18 07:00 01/05/18 07:00 01/05/18 07:00 01/05/18 07:00 Oxygen Flow Rate (L/min) 40 Oxygen Delivery Method Mechanical Ventilator Weight: 137.4 kg Body Mass Index (BMI) 45.8 Finger Stick Blood Glucose 193 Intake and Output for Last 24 Hours 01/03/18 01/04/18 01/05/18 23:59 23:59 23:59 Intake Total 2692 / 2692 2163 / 2163 1139 / 1139 Output Total 1700 / 1700 2125 / 2125 1000 / 1000 Balance 992 / 992 38 / 38 139 / 139 Labs (Last 48 Hours) 01/03/18 01/03/18 01/04/18 12:49 18:47 00:21 WBC RBC Hgb Hct MCV MCH MCHC RDW RDW Differential Plt Count MPV Immature Gran % (Auto) Neut % (Auto) Lymph % (Auto) [place] % (Auto) Eos % (Auto) Baso % (Auto) Absolute Neuts (auto) Absolute Lymphs (auto) Total Counted Sodium Potassium Chloride Carbon Dioxide Anion Gap BUN Creatinine Estim Creat Clear Calc Est GFR (MDRD) Af Amer Est GFR (MDRD) Non-Af BUN/Creatinine Ratio Glucose Calcium POC Glucose 239 H 185 H 123 H 01/04/18 01/04/18 01/04/18 05:33 11:42 17:24 WBC RBC Hgb Hct MCV MCH MCHC RDW RDW Differential Plt Count MPV Immature Gran % (Auto) Neut % (Auto) Lymph % (Auto) [place] % (Auto) Eos % (Auto) Baso % (Auto) Absolute Neuts (auto) Absolute Lymphs (auto) Total Counted Sodium Potassium Chloride Carbon Dioxide Anion Gap BUN Creatinine Estim Creat Clear Calc Est GFR (MDRD) Af Amer Est GFR (MDRD) Non-Af BUN/Creatinine Ratio Glucose Calcium POC Glucose 138 H 195 H 213 H 01/05/18 01/05/18 01/05/18 00:06 04:15 04:15 WBC 8.3 RBC 4.06 L Hgb 11.3 L Hct 36.2 L MCV 89.2 MCH 27.8 MCHC 31.2 L RDW 15.7 H RDW Differential 50.5 H Plt Count 121 L MPV 12.0 Immature Gran % (Auto) 1.200 H Neut % (Auto) 67.9 Lymph % (Auto) 24.3 [place] % (Auto) 5.4 Eos % (Auto) 1.0 Baso % (Auto) 0.2 Absolute Neuts (auto) 5.6 Absolute Lymphs (auto) 2.01 Total Counted Not Reportable Sodium 144 Potassium 3.9 Chloride 105 Carbon Dioxide 33.0 H Anion Gap 6 BUN 31 H Creatinine 0.64 L Estim Creat Clear Calc 120.23 Est GFR (MDRD) Af Amer 165 Est GFR (MDRD) Non-Af 136 BUN/Creatinine Ratio 48.7 H Glucose 97 Calcium 8.9 POC Glucose 133 H 01/05/18 05:59 WBC RBC Hgb Hct MCV MCH MCHC RDW RDW Differential Plt Count MPV Immature Gran % (Auto) Neut % (Auto) Lymph % (Auto) [place] % (Auto) Eos % (Auto) Baso % (Auto) Absolute Neuts (auto) Absolute Lymphs (auto) Total Counted Sodium Potassium Chloride Carbon Dioxide Anion Gap BUN Creatinine Estim Creat Clear Calc Est GFR (MDRD) Af Amer Est GFR (MDRD) Non-Af BUN/Creatinine Ratio Glucose Calcium POC Glucose 100 Microbiology 01/01/18 17:13 Sputum, Tracheal Aspirate Gram Stain - Final 01/01/18 17:13 Sputum, Tracheal Aspirate Respiratory Culture - Final Gram positive milli Medical Necessity - Tobacco Use Smoking Status: Current every day smoker Assessment/Plan All Active Problems (Last Updated 12/25/17 @ 08:22 by Juan Manuel Subramanian DO) Aspiration pneumonia due to food (regurgitated) (Acute) Heart failure with preserved ejection fraction (Acute) GALILEA (acute kidney injury) (Acute) Klebsiella pneumonia (Acute) Acute respiratory failure with hypoxia and hypercapnia (Acute) Pneumococcal pneumonia (Acute) Metabolic encephalopathy (Resolved) Chest pain (Resolved) Respiratory failure, acute (Resolved) RECOMMENDATIONS: 1. Aggressive pulmonary toileting 2. Attempt pressure support trial during the day 3. Wean FiO2 and PEEP as tolerated. 4. Continue tube feeds with free water flushes 5. May require increased diuretic therapy 6. Anticipate prolonged prednisone taper over 2-3 weeks 7. Disposition planning per case management 8. Remove [place] IMPRESSIONS: 1. Acute on chronic combined respiratory failure Patient received tracheostomy on December 30. Patient has had trach and PEG for almost 1 week now. Insurance continues to deny LTAC referral stating that this is unnecessary as we can do anything they can do. Patient continues to have therapy during the day and has progressed to standing at the bedside. Occasional mucus plugging has been noted. Patient appears to be improving from a respiratory standpoint, but has not been given any trach mask trials as of yet. Continue to await insurance approval for appropriate therapy of an LTAC facility. Emergency appeal has been sent. Patient does have something on his sputum culture, but is not currently having any fevers or chills. Continue with aggressive pulmonary toileting. 2. Metabolic encephalopathy RESOLVED > Patient does have a history of acute on chronic CO2 retention. We will continue to monitor closely. Continue to address chemistries as indicated 3. Decompensated heart failure/history of ischemic cardiomyopathy Patient's heart catheterization showed patent stents. Patient's fluid status continues to be somewhat of an issue. Patient is back on diuretic therapy. Further cardiology if this needs changed to 3 times daily versus addition of metolazone to maintain slightly negative fluid balance. Continue to monitor closely. Patient's weight has remained relatively stable. 4. Diabetes mellitus Continue Accu-Cheks and sliding scale insulin coverage. The patient has been tolerant of tube feeds to date. 5. Obstructive sleep apnea The patient has a history of outpatient noncompliance with the use of nocturnal Pap therapy. He only utilizes supplemental oxygen on a nightly basis. Patient currently with a tracheostomy and ventilator support. 6. Ongoing tobacco dependence/super morbid obesity/history of medical noncompliance/hypertension Complicates care, management, recovery and prognosis. Nicotine replacement therapy can be utilized while admitted to the hospital. 7. Acute kidney injury Resolved. Likely secondary to overdiuresis previously. Diuretics have been reinitiated. Code Visit Inpatient E&M: [id number] [facility] Hosp L3
--- NOTE | 2018-01-05 07:22 | PN_ITS ---
Patient Problems: Active and Suspected Problems (Last Updated 12/25/17 @ 08:22 by Juan Manuel Subramanian DO) Aspiration pneumonia due to food (regurgitated) (Acute) Subjective: Patient was seen and examined. Remains in ICU, on ventilator via trach. No acute events overnight. Discharge planning ongoing with peer-peer review/appeal. Vitals remained stable. I & Os shows a negative balance. Objective: Physical exam: General: Alert, Cooperative, No apparent distress, Obese HEENT: Atraumatic, PERRLA, EOMI, Normocephalic, s/p tracheostomy, site is clean and dry Oral: Moist Mucosa Neck: Supple, No JVD, Negative Carotid Bruits Lungs: Diminished air entry lung bases, vesicular breath sounds Cardiovascular: Regular rate, Regular Rhythm, Normal S1, Normal S2, No murmurs Abdomen: Bowel Sounds Present, Soft, Non Tender, Non-Distended, No Hepato- splenomegaly, Obese Extremities: No clubbing, No cyanosis, Edema -trace bilateral pedal edema Skin: - -Chronic stasis dermatitis of lower extremities. Musculoskeletal: No Tenderness to Palpation of Joints or Extremities Lymphatic: No Cervical, Supraclavicular, or Inguinal Adenopathy Neurological: Cranial nerves II-XII grossly intact, Neuro grossly intact Psych/Mental Status: Flat Affect Vitals/I&O's: Vital Signs Temp Pulse Resp BP Pulse Ox 98.4 F 74 20 H 91/52 L 94 01/05/18 04:00 01/05/18 07:00 01/05/18 07:00 01/05/18 07:00 01/05/18 07:00 Oxygen Flow Rate (L/min) 40 Oxygen Delivery Method Mechanical Ventilator Weight: 137.4 kg Body Mass Index (BMI) 45.8 Finger Stick Blood Glucose 193 Intake and Output for Last 24 Hours 01/03/18 01/04/18 01/05/18 23:59 23:59 23:59 Intake Total 2692 / 2692 2163 / 2163 1139 / 1139 Output Total 1700 / 1700 2125 / 2125 1000 / 1000 Balance 992 / 992 38 / 38 139 / 139 Microbiology Past 72 Hours 01/01/18 17:13 Sputum, Tracheal Aspirate Gram Stain - Final 01/01/18 17:13 Sputum, Tracheal Aspirate Respiratory Culture - Final Gram positive milli Laboratory Results 01/04/18 11:42: POC Glucose 195 H 01/04/18 17:24: POC Glucose 213 H 01/05/18 00:06: POC Glucose 133 H 01/05/18 04:15: WBC 8.3, RBC 4.06 L, Hgb 11.3 L, Hct 36.2 L, MCV 89.2, MCH 27.8, MCHC 31.2 L, RDW 15.7 H, RDW Differential 50.5 H, Plt Count 121 L, MPV 12.0, Immature Gran % (Auto) 1.200 H, Neut % (Auto) 67.9, Lymph % (Auto) 24.3, [place] % (Auto) 5.4, Eos % (Auto) 1.0, Baso % (Auto) 0.2, Absolute Neuts (auto) 5.6, Absolute Lymphs (auto) 2.01, Total Counted Not Reportable 01/05/18 04:15: Sodium 144, Potassium 3.9, Chloride 105, Carbon Dioxide 33.0 H, Anion Gap 6, BUN 31 H, Creatinine 0.64 L, Estim Creat Clear Calc 120.23, Est GFR (MDRD) Af Amer 165, Est GFR (MDRD) Non-Af 136, BUN/Creatinine Ratio 48.7 H, Glucose 97, Calcium 8.9 01/05/18 05:59: POC Glucose 100 Current Medications Acetaminophen (Tylenol Liquid) 650 mg GT Q6H PRN PRN PRN Reason: FEVER Last Admin: 12/24/17 00:16 Dose: 650 mg Albuterol Sulfate (Ventolin Aerosols) 2.5 mg INHALATION Q6HWA.RT [facility] Last Admin: 01/05/18 07:00 Dose: 2.5 mg Aspirin (Aspirin, Baby) 81 mg GT DAILY [facility] Last Admin: 01/04/18 08:23 Dose: 81 mg Atorvastatin Calcium (Lipitor) 40 mg GT QHS [facility] Last Admin: 01/04/18 21:57 Dose: 40 mg Chlorhexidine Gluconate () 15 ml PO BID [facility] Last Admin: 01/04/18 21:56 Dose: 15 ml Chlorhexidine Gluconate () 1 each TOPICAL DAILY [facility] Last Admin: 01/05/18 06:01 Dose: 1 each Clopidogrel Bisulfate (Plavix) 75 mg GT DAILY [facility] Last Admin: 01/04/18 08:26 Dose: 75 mg Dextrose (D50w Syringe) 0 gm IV X1 PRN; Protocol PRN Reason: Hypoglycemia Famotidine (Pepcid) 20 mg GT BID [facility] Last Admin: 01/04/18 21:58 Dose: 20 mg Furosemide (Lasix) 80 mg PO BID@1000,1800 [facility] Last Admin: 01/04/18 17:31 Dose: 80 mg Glucagon () 1 mg IM .X1 PRN PRN Reason: Hypoglycemia Heparin Sodium (Beef Lung) (Heparin 500 Unit/5 Ml (100/Ml)) 500 unit IV UD PRN PRN Reason: HEPARIN FLUSH Heparin Sodium (Porcine) (Heparin Na) 5,000 unit SC Q8 [facility] Last Admin: 01/05/18 06:00 Dose: 5,000 unit Sodium Chloride () 250 mls @ 15 mls/hr IV .[id number] PRN PRN Reason: SALINE FLUSH Sodium Chloride () 250 mls @ 15 mls/hr IV .[id number] PRN PRN Reason: SALINE FLUSH Last Admin: 12/16/17 21:29 Dose: 15 mls/hr Enteral Nutritional Formula (Vital Af 1.2 Jeremiah Liquid) 1,000 mls @ 65 mls/hr GT .[id number] [facility] Last Admin: 01/05/18 02:17 Dose: 65 mls/hr Sodium Chloride () 1,000 mls @ 0 mls/hr IV .Q0M JUANY Sodium Chloride () 1,000 mls @ 0 mls/hr IV .Q0M [facility] Insulin Glargine (Lantus (Bkc)) 35 units SC BID [facility] Last Admin: 01/04/18 21:56 Dose: 35 units Insulin Human Lispro (Humalog Kwikpen (Bkc)) 0 unit SC Q6 [facility]; Protocol Last Admin: 01/05/18 06:00 Dose: Not Given Losartan Potassium (Cozaar) 25 mg PO DAILY [facility] Last Admin: 01/04/18 08:24 Dose: 25 mg Magnesium Hydroxide (Milk Of Magnesia) 30 ml PO DAILY PRN PRN PRN Reason: Constipation Nystatin (Nystatin) 500,000 unit PO Q6 [facility] Last Admin: 01/05/18 05:56 Dose: 500,000 unit Oxycodone HCl (Oxyir) 5 mg GT Q6H PRN PRN PRN Reason: SEVERE PAIN (6-11/16) Last Admin: 01/05/18 02:13 Dose: 5 mg Polyethylene Glycol (Miralax) 17 gm GT DAILY PRN PRN PRN Reason: Constipation Potassium Bicarb/Potassium Chloride (Potassium Chl 25 Meq Eff (For Liquid)) 25 meq GT TID [facility] Last Admin: 01/05/18 06:00 Dose: 25 meq Prednisone () 40 mg GT DAILY@0800 [facility] Last Admin: 01/04/18 08:23 Dose: 40 mg Sodium Chloride () 5 - 30 ml IV UD PRN PRN Reason: SALINE FLUSH Last Admin: 01/03/18 10:29 Dose: 20 ml Medical Necessity - Tobacco Use Smoking Status: Current every day smoker Assessment/Plan All Active Problems (Last Updated 12/25/17 @ 08:22 by Juan Manuel Subramanian DO) Aspiration pneumonia due to food (regurgitated) (Acute) Heart failure with preserved ejection fraction (Acute) GALILEA (acute kidney injury) (Acute) Klebsiella pneumonia (Acute) Acute respiratory failure with hypoxia and hypercapnia (Acute) Pneumococcal pneumonia (Acute) Metabolic encephalopathy (Resolved) Chest pain (Resolved) Respiratory failure, acute (Resolved) 57-year-old male with past medical history of CAD status post AK, stents, EMILIA, chronic systolic CHF, asthma, type II DM, morbid obesity was admitted on 12/12/17 with progressive shortness of breath and lethargy, and was said to be having agonal breathing in the ED. He was emergently intubated and has since remained in the ICU. Today is day 24 of admission, status post tracheostomy day 6. 1. Acute on chronic hypoxic and hypercapnic respiratory failure due to CHF exacerbation, sleep apnea and aspiration pneumonia Remains on ventilatory support, status post tracheostomy, sputum cultures growing gram-positive growth, will wait for further speciation Off antibiotics, on prednisone taper. Continue per recommendations of cardiology and pulmonology 2. Acute systolic CHF exacerbation, EF of 25% per LV angiogram; 60% on 2D echo(differences in EF likely secondary to body habitus) Remains on Lasix 80 mg p.o. twice daily, diuresing, continue with daily weights, I's and O's 3. Hypertension, remains controlled, relatively hypotensive at times, on losartan 25 mg daily 4. Type 2 diabetes mellitus, blood sugars are fairly controlled, on Lantus 35 units subcu twice daily , Accu-Cheks with insulin sliding scale. 5. Hypernatremia, resolved. 6. Hypokalemia, resolved. 7. Paroxysmal atrial fibrillation, in NSR, cardiology consulted 8. Acute metabolic encephalopathy due to general medical condition, resolving 9. CAD status post stents, on aspirin and Plavix,atorvastatin as well as losartan. 10. DVT Prophylaxis: Heparin 11. Morbid obesity, BMI 44.9, complicates care 12. GI prophylaxis with Famotidine. 13. Disposition: pending possible placement in LTACH Code Visit Inpatient E&M: [id number] Subs Hosp L3
[2018-01-05] MEDS: Furosemide 80 MG Tablet PO ×2 (08:18→18:28)
[2018-01-05] MEDS: Famotidine 20 MG Tablet GT ×2 (08:19→21:12)
[2018-01-05] MEDS: predniSONE 20 MG Tablet 40 MG GT (08:20)
[2018-01-05] MEDS: Aspirin 81 MG TAB.CHEW GT (08:20)
[2018-01-05] MEDS: Clopidogrel Bisulfate 75 MG Tablet GT (08:20)
[2018-01-05] MEDS: Losartan Potassium 25 MG Tablet PO (08:21)
[2018-01-05] MEDS: 0.9% NaCl Peripheral Flush Adult/Peds IV (08:25)
[2018-01-05] MEDS: Chlorhexidine 15 ML PO ×2 (11:23→21:13)
[2018-01-05 11:30] LABS: Bedside Glucose 172 mg/dL (70-110)
[2018-01-05] MEDS: Insulin Lispro 100 UNIT/ML INSULN.PEN SC ×2 (11:30→18:27)
--- NOTE | 2018-01-05 14:49 | CHAPLAIN ---
Type of Pastoral Visit _x__ Initial Visit ___ Follow-up Visit ___ On-call Visit ___ General Patient Visit ___ Spiritual Assessment ___ Family Conference ___ Bereavement ___ Rapid Response ___ Code Blue ___ Other (describe below) Pastoral Care Referral From _x__ Patient ___ Family _x__ Nurse ___ Physician ___ Histological Illustrator ___ Ham Clerk ___ Other (describe below) Sacrament/Intervention _x__ Active listening ___ Anointing ___ Orthodox ___ Bereavement ___ Communion _x__ Isabel exploration ___ ___ Life review _x__ Prayer ___ Reconciliation ___ Sacrament of Sick _x__ Supportive presence ___ Wedding ___ Other (describe below) Pastoral Comments Two different RNs have indicated that patient would benefit from spiritual support; pt was asked if he would like visit and he agreed; pt has trach but can mouth his words so that he is understandable; pt indicates that he is really tired of all this and just want the tubes out and to go home; pt says that he wonders where God is; pt says that he wants to believe God but is having a hard time doing so; we talk and listen to that issue of knowing God in the hard times; pt indicates that he has had isabel knowledge and has asked for forgiveness of God in past but I've not been a good Advent; pt agrees to let this custom home installer read scripture passages to him and to pray for him; pt says that he has some family but not very active in his life; pt would welcome further spiritual care visits from custom home installer
[2018-01-05 18:25] LABS: Bedside Glucose 185 mg/dL (70-110)
[2018-01-05] MEDS: Atorvastatin Calcium 40 MG Tablet GT (21:12)
[2018-01-05] MEDS: Escitalopram Oxalate 10 MG Tablet PO (21:12)
[2018-01-05 21:46] LABS: Bedside Glucose 154 mg/dL (70-110)
[2018-01-05 23:36] LABS: Bedside Glucose 140 mg/dL (70-110)
[2018-01-06] VITALS (35 sets, daily range): BP systolic 93–121; BP diastolic 53–77; PULSE 71–87; RESP 14–25; TEMP 36.1–37.2; O2SAT 89–98
[2018-01-06] MEDS: Albuterol 2.5 MG/3 ML VIAL.NEB. INHALATION ×5 (01:40→19:00)
[2018-01-06] MEDS: oxyCODONE 5 MG Tablet GT ×2 (04:45→12:29)
[2018-01-06] MEDS: CHLORHEXIDINE GLUC 2% CLOTH 1 EACH TOWELETTE TOPICAL (04:48)
[2018-01-06] MEDS: NYSTATIN 500,000 UNIT/5 ML UDC 500000 UNIT PO ×4 (05:40→23:02)
[2018-01-06] MEDS: Heparin Injection (Vial) 5,000 UNIT/ML VIAL 5000 UNIT SC ×3 (05:40→23:02)
[2018-01-06 05:50] LABS: Bedside Glucose 131 mg/dL (70-110)
[2018-01-06] MEDS: 0.9% NaCl Peripheral Flush Adult/Peds IV (06:00)
--- NOTE | 2018-01-06 06:57 | PN_ITS ---
Subjective: Patient did well overnight. Patient did go to assist control while sleeping, but is back on spontaneous. Nursing reports improved tracheal secretions. Patient is denying any pain at this time. Patient was able to sit at the bedside for approximately 20 minutes yesterday per PT/OT report. General: Alert, Cooperative, No apparent distress, - - Morbidly obese. Follows commands. HEENT: Atraumatic, PERRLA, EOMI, Normocephalic, - - No scleral icterus or injection noted. Oral: Moist Mucosa, No Gingival or Mucosal Lesions/ Ulcerations Neck: Supple, No JVD, No Nodes, Trachea Midline, - - Trach is clean, dry and intact. Lungs: No rhonchi, No wheeze, No rales, Diminished, - - Patient suctioned just prior to my arrival. No dullness to percussion. Cardiovascular: Regular rate, Regular Rhythm, Normal S1, Normal S2, No murmurs, No rub noted, No Gallop Abdomen: Bowel Sounds Present, Soft, Non Tender, Non-Distended, Obese, - - PEG is clean, dry and intact. Extremities: No cyanosis, Capillary Refill Less than 3 Seconds, Clubbing, Edema - Trace Skin: - - No significant change compared to previous Musculoskeletal: No Tenderness to Palpation of Joints or Extremities, No Muscle Wasting Lymphatic: No Cervical, Supraclavicular, or Inguinal Adenopathy Neurological: Cranial nerves II-XII grossly intact, Neuro grossly intact, Motor Exam 5/5 strength throughout Psych/Mental Status: Normal Affect, Appropriate Vital Signs Temp Pulse Resp BP Pulse Ox 36.2 C L 76 22 H 100/65 93 01/06/18 04:00 01/06/18 06:00 01/06/18 06:00 01/06/18 06:00 01/06/18 06:00 Oxygen Flow Rate (L/min) 40 Oxygen Delivery Method CPAP Weight: 138 kg Body Mass Index (BMI) 45.8 Finger Stick Blood Glucose 193 Intake and Output for Last 24 Hours 01/04/18 01/05/18 01/06/18 23:59 23:59 23:59 Intake Total 2163 / 2163 3372 / 3372 618 / 618 Output Total 2125 / 2125 2290 / 2290 300 / 300 Balance 38 / 38 1082 / 1082 318 / 318 Labs (Last 48 Hours) 01/04/18 01/04/18 01/05/18 11:42 17:24 00:06 WBC RBC Hgb Hct MCV MCH MCHC RDW RDW Differential Plt Count MPV Immature Gran % (Auto) Neut % (Auto) Lymph % (Auto) [place] % (Auto) Eos % (Auto) Baso % (Auto) Absolute Neuts (auto) Absolute Lymphs (auto) Total Counted Sodium Potassium Chloride Carbon Dioxide Anion Gap BUN Creatinine Estim Creat Clear Calc Est GFR (MDRD) Af Amer Est GFR (MDRD) Non-Af BUN/Creatinine Ratio Glucose Calcium POC Glucose 195 H 213 H 133 H 01/05/18 01/05/18 01/05/18 04:15 04:15 05:59 WBC 8.3 RBC 4.06 L Hgb 11.3 L Hct 36.2 L MCV 89.2 MCH 27.8 MCHC 31.2 L RDW 15.7 H RDW Differential 50.5 H Plt Count 121 L MPV 12.0 Immature Gran % (Auto) 1.200 H Neut % (Auto) 67.9 Lymph % (Auto) 24.3 [place] % (Auto) 5.4 Eos % (Auto) 1.0 Baso % (Auto) 0.2 Absolute Neuts (auto) 5.6 Absolute Lymphs (auto) 2.01 Total Counted Not Reportable Sodium 144 Potassium 3.9 Chloride 105 Carbon Dioxide 33.0 H Anion Gap 6 BUN 31 H Creatinine 0.64 L Estim Creat Clear Calc 120.23 Est GFR (MDRD) Af Amer 165 Est GFR (MDRD) Non-Af 136 BUN/Creatinine Ratio 48.7 H Glucose 97 Calcium 8.9 POC Glucose 100 01/05/18 01/05/18 01/05/18 11:28 18:20 21:21 WBC RBC Hgb Hct MCV MCH MCHC RDW RDW Differential Plt Count MPV Immature Gran % (Auto) Neut % (Auto) Lymph % (Auto) [place] % (Auto) Eos % (Auto) Baso % (Auto) Absolute Neuts (auto) Absolute Lymphs (auto) Total Counted Sodium Potassium Chloride Carbon Dioxide Anion Gap BUN Creatinine Estim Creat Clear Calc Est GFR (MDRD) Af Amer Est GFR (MDRD) Non-Af BUN/Creatinine Ratio Glucose Calcium POC Glucose 172 H 185 H 154 H 01/05/18 01/06/18 23:26 05:39 WBC RBC Hgb Hct MCV MCH MCHC RDW RDW Differential Plt Count MPV Immature Gran % (Auto) Neut % (Auto) Lymph % (Auto) [place] % (Auto) Eos % (Auto) Baso % (Auto) Absolute Neuts (auto) Absolute Lymphs (auto) Total Counted Sodium Potassium Chloride Carbon Dioxide Anion Gap BUN Creatinine Estim Creat Clear Calc Est GFR (MDRD) Af Amer Est GFR (MDRD) Non-Af BUN/Creatinine Ratio Glucose Calcium POC Glucose 140 H 131 H Medical Necessity - Tobacco Use Smoking Status: Current every day smoker Assessment/Plan All Active Problems (Last Updated 12/25/17 @ 08:22 by Juan Manuel Subramanian DO) Aspiration pneumonia due to food (regurgitated) (Acute) Heart failure with preserved ejection fraction (Acute) GALILEA (acute kidney injury) (Acute) Klebsiella pneumonia (Acute) Acute respiratory failure with hypoxia and hypercapnia (Acute) Pneumococcal pneumonia (Acute) Metabolic encephalopathy (Resolved) Chest pain (Resolved) Respiratory failure, acute (Resolved) RECOMMENDATIONS: 1. Aggressive pulmonary toileting 2. Continue pressure support trial during the day 3. Wean FiO2 and PEEP as tolerated. 4. Continue tube feeds with free water flushes 5. Recheck labs tomorrow 6. Anticipate prolonged prednisone taper over 2-3 weeks 7. Disposition planning per case management 8. Possibly decrease prednisone tomorrow IMPRESSIONS: 1. Acute on chronic combined respiratory failure Patient received tracheostomy on December 30. Patient has had trach and PEG for almost 1 week now. Insurance continues to deny LTAC referral stating that this is unnecessary as we can do anything they can do. Patient continues to have therapy during the day and has progressed progressed appropriately given limited time with therapy. Occasional mucus plugging has been noted, but this appears to be improving. Patient appears to be improving from a respiratory standpoint, but has not been given any trach mask trials as of yet. Continue to await insurance approval for appropriate therapy of an LTAC facility. Emergency appeal has been sent. Patient does have something on his sputum culture, but is not currently having any fevers or chills. Continue with aggressive pulmonary toileting. 2. Metabolic encephalopathy RESOLVED > Patient does have a history of acute on chronic CO2 retention. We will continue to monitor closely. Continue to address chemistries as indicated 3. Decompensated heart failure/history of ischemic cardiomyopathy Patient's heart catheterization showed patent stents. Patient's fluid status continues to be somewhat of an issue. Patient is back on diuretic therapy. Cardiology is not seen in a couple days. Will increase Lasix to 3 times daily to attempt even fluid balance. Continue to monitor closely. Patient's weight has remained relatively stable. 4. Diabetes mellitus Continue Accu-Cheks and sliding scale insulin coverage. The patient has been tolerant of tube feeds to date. 5. Obstructive sleep apnea The patient has a history of outpatient noncompliance with the use of nocturnal Pap therapy. He only utilizes supplemental oxygen on a nightly basis. Patient currently with a tracheostomy and ventilator support. 6. Ongoing tobacco dependence/super morbid obesity/history of medical noncompliance/hypertension Complicates care, management, recovery and prognosis. Nicotine replacement therapy can be utilized while admitted to the hospital. 7. Acute kidney injury Resolved. Likely secondary to overdiuresis previously. Diuretics have been reinitiated. Code Visit Inpatient E&M: [id number] [facility] Hosp L3
--- NOTE | 2018-01-06 08:40 | PCM.PN.HOSP ---
Patient Problems: Active and Suspected Problems (Last Updated 12/25/17 @ 08:22 by Juan Manuel Subramanian DO) Aspiration pneumonia due to food (regurgitated) (Acute) Subjective: Patient was seen and is examined. Denied any new complaints. No acute events overnight. He was updated on the status of his current admission including discharge planning. He expressed frustration at the discharge planning process. Reassurance is given. Objective: Physical exam: General: Alert, Cooperative, No apparent distress, Obese HEENT: Atraumatic, PERRLA, EOMI, Normocephalic, s/p tracheostomy, site is clean and dry Oral: Moist Mucosa Neck: Supple, No JVD, Negative Carotid Bruits Lungs: Diminished air entry lung bases, vesicular breath sounds Cardiovascular: Regular rate, Regular Rhythm, Normal S1, Normal S2, No murmurs Abdomen: Bowel Sounds Present, Soft, Non Tender, Non-Distended, No Hepato-splenomegaly, Obese Extremities: No clubbing, No cyanosis, Edema -trace bilateral pedal edema Skin: - -Chronic stasis dermatitis of lower extremities. Musculoskeletal: No Tenderness to Palpation of Joints or Extremities Lymphatic: No Cervical, Supraclavicular, or Inguinal Adenopathy Neurological: Cranial nerves II-XII grossly intact, Neuro grossly intact Psych/Mental Status: Flat Affect Vitals/I&O's: Vital Signs Temp Pulse Resp BP Pulse Ox 98.9 F 81 19 H 108/64 94 01/06/18 07:00 01/06/18 08:00 01/06/18 07:00 01/06/18 07:00 01/06/18 07:00 Oxygen Flow Rate (L/min) 40 Oxygen Delivery Method Mechanical Ventilator Weight: 138 kg Body Mass Index (BMI) 45.8 Finger Stick Blood Glucose 193 Intake and Output for Last 24 Hours 01/04/18 01/05/18 01/06/18 23:59 23:59 23:59 Intake Total 2163 / 2163 3372 / 3372 618 / 618 Output Total 2125 / 2125 2290 / 2290 300 / 300 Balance 38 / 38 1082 / 1082 318 / 318 Microbiology Past 72 Hours 01/01/18 17:13 Sputum, Tracheal Aspirate Gram Stain - Final 01/01/18 17:13 Sputum, Tracheal Aspirate Respiratory Culture - Final Gram positive milli Laboratory Results 01/05/18 11:28: POC Glucose 172 H 01/05/18 18:20: POC Glucose 185 H 01/05/18 21:21: POC Glucose 154 H 01/05/18 23:26: POC Glucose 140 H 01/06/18 05:39: POC Glucose 131 H Current Medications Acetaminophen (Tylenol Liquid) 650 mg GT Q6H PRN PRN PRN Reason: FEVER Last Admin: 12/24/17 00:16 Dose: 650 mg Albuterol Sulfate (Ventolin Aerosols) 2.5 mg INHALATION Q6HWA.RT [facility] Last Admin: 01/06/18 07:02 Dose: 2.5 mg Albuterol Sulfate (Ventolin Aerosols) 2.5 mg INHALATION Q2H PRN PRN PRN Reason: SOB &/OR WHEEZING Last Admin: 01/05/18 23:00 Dose: 2.5 mg Aspirin (Aspirin, Baby) 81 mg GT DAILY [facility] Last Admin: 01/05/18 08:20 Dose: 81 mg Atorvastatin Calcium (Lipitor) 40 mg GT QHS [facility] Last Admin: 01/05/18 21:12 Dose: 40 mg Chlorhexidine Gluconate () 15 ml PO BID [facility] Last Admin: 01/05/18 21:13 Dose: 15 ml Chlorhexidine Gluconate () 1 each TOPICAL DAILY [facility] Last Admin: 01/06/18 04:48 Dose: 1 each Clopidogrel Bisulfate (Plavix) 75 mg GT DAILY [facility] Last Admin: 01/05/18 08:20 Dose: 75 mg Dextrose (D50w Syringe) 0 gm IV X1 PRN; Protocol PRN Reason: Hypoglycemia Escitalopram Oxalate (Lexapro) 10 mg PO DAILY [facility] Last Admin: 01/05/18 21:12 Dose: 10 mg Famotidine (Pepcid) 20 mg GT BID [facility] Last Admin: 01/05/18 21:12 Dose: 20 mg Furosemide (Lasix) 80 mg PO TID [facility] Glucagon () 1 mg IM .X1 PRN PRN Reason: Hypoglycemia Heparin Sodium (Beef Lung) (Heparin 500 Unit/5 Ml (100/Ml)) 500 unit IV UD PRN PRN Reason: HEPARIN FLUSH Heparin Sodium (Porcine) (Heparin Na) 5,000 unit SC Q8 [facility] Last Admin: 01/06/18 05:40 Dose: 5,000 unit Sodium Chloride () 250 mls @ 15 mls/hr IV .[id number] PRN PRN Reason: SALINE FLUSH Sodium Chloride () 250 mls @ 15 mls/hr IV .[id number] PRN PRN Reason: SALINE FLUSH Last Admin: 12/16/17 21:29 Dose: 15 mls/hr Enteral Nutritional Formula (Vital Af 1.2 Jeremiah Liquid) 1,000 mls @ 65 mls/hr GT .[id number] [facility] Last Admin: 01/06/18 01:20 Dose: Not Given Sodium Chloride () 1,000 mls @ 0 mls/hr IV .Q0M [facility] Sodium Chloride () 1,000 mls @ 0 mls/hr IV .Q0M [facility] Insulin Glargine (Lantus (Bk)) 35 units SC BID [facility] Last Admin: 01/05/18 21:27 Dose: 35 units Insulin Human Lispro (Humalog Kwikpen (Bk)) 0 unit SC Q6 [facility]; Protocol Last Admin: 01/06/18 05:54 Dose: Not Given Losartan Potassium (Cozaar) 25 mg PO DAILY [facility] Last Admin: 01/05/18 08:21 Dose: 25 mg Magnesium Hydroxide (Milk Of Magnesia) 30 ml PO DAILY PRN PRN PRN Reason: Constipation Nystatin (Nystatin) 500,000 unit PO Q6 [facility] Last Admin: 01/06/18 05:40 Dose: 500,000 unit Oxycodone HCl (Oxyir) 5 mg GT Q6H PRN PRN PRN Reason: SEVERE PAIN (6-10/10) Last Admin: 01/06/18 04:45 Dose: 5 mg Polyethylene Glycol (Miralax) 17 gm GT DAILY PRN PRN PRN Reason: Constipation Potassium Bicarb/Potassium Chloride (Potassium Chl 25 Meq Eff (For Liquid)) 25 meq GT TID [facility] Last Admin: 01/06/18 05:40 Dose: 25 meq Prednisone () 40 mg GT DAILY@0800 [facility] Last Admin: 01/05/18 08:20 Dose: 40 mg Sodium Chloride () 5 - 30 ml IV UD PRN PRN Reason: SALINE FLUSH Last Admin: 01/06/18 06:00 Dose: 20 ml Medical Necessity - Tobacco Use Smoking Status: Current every day smoker Assessment/Plan All Active Problems (Last Updated 12/25/17 @ 08:22 by Juan Manuel Subramanian DO) Aspiration pneumonia due to food (regurgitated) (Acute) Heart failure with preserved ejection fraction (Acute) GALILEA (acute kidney injury) (Acute) Klebsiella pneumonia (Acute) Acute respiratory failure with hypoxia and hypercapnia (Acute) Pneumococcal pneumonia (Acute) Metabolic encephalopathy (Resolved) Chest pain (Resolved) Respiratory failure, acute (Resolved) 57-year-old male with past medical history of CAD status post [place], stents, EMILIA, chronic systolic CHF, asthma, type II DM, morbid obesity was admitted on 12/12/17 with progressive shortness of breath and lethargy, and was said to be having agonal breathing in the ED. He was emergently intubated and has since remained in the ICU. Today is Day 25 of admission, status post tracheostomy day 7. 1. Acute on chronic hypoxic and hypercapnic respiratory failure due to CHF exacerbation, sleep apnea and aspiration pneumonia Remains on ventilatory support, status post tracheostomy, sputum cultures growing gram-positive rods, off antibiotics, on prednisone taper. New aggressive pulmonary toileting and ventilatory support. 2. Acute systolic CHF exacerbation, EF of 25% per LV angiogram; 60% on 2D echo(differences in EF likely secondary to body habitus) Diuresing but weight has not changed much in the last 24-48 hours, Lasix increased to 80 mg p.o. 3 times daily, continue to monitor weights and I's and O's 3. Hypertension, remains controlled, relatively hypotensive at times, on losartan 25 mg daily 4. Type 2 diabetes mellitus, blood sugars are fairly controlled, on Lantus 35 units subcu twice daily , Accu-Cheks with insulin sliding scale. 5. Hypernatremia, resolved. 6. Hypokalemia, resolved. 7. Paroxysmal atrial fibrillation, in NSR, cardiology consulted 8. Acute metabolic encephalopathy due to general medical condition, resolved 9. CAD status post stents, on aspirin and Plavix,atorvastatin as well as losartan. 10. DVT Prophylaxis: Heparin 11. Morbid obesity, BMI 44.9, complicates care 12. GI prophylaxis with Famotidine. 13. Disposition: pending possible placement in LTACH Code Visit Inpatient E&M: [id number] Subs Hosp L2
--- NOTE | 2018-01-06 08:45 | PN_ITS ---
Patient Problems: Active and Suspected Problems (Last Updated 12/25/17 @ 08:22 by Juan Manuel Subramanian DO) Aspiration pneumonia due to food (regurgitated) (Acute) Subjective: Patient was seen and is examined. Denied any new complaints. No acute events overnight. He was updated on the status of his current admission including discharge planning. He expressed frustration at the discharge planning process. Reassurance is given. Objective: Physical exam: General: Alert, Cooperative, No apparent distress, Obese HEENT: Atraumatic, PERRLA, EOMI, Normocephalic, s/p tracheostomy, site is clean and dry Oral: Moist Mucosa Neck: Supple, No JVD, Negative Carotid Bruits Lungs: Diminished air entry lung bases, vesicular breath sounds Cardiovascular: Regular rate, Regular Rhythm, Normal S1, Normal S2, No murmurs Abdomen: Bowel Sounds Present, Soft, Non Tender, Non-Distended, No Hepato- splenomegaly, Obese Extremities: No clubbing, No cyanosis, Edema -trace bilateral pedal edema Skin: - -Chronic stasis dermatitis of lower extremities. Musculoskeletal: No Tenderness to Palpation of Joints or Extremities Lymphatic: No Cervical, Supraclavicular, or Inguinal Adenopathy Neurological: Cranial nerves II-XII grossly intact, Neuro grossly intact Psych/Mental Status: Flat Affect Vitals/I&O's: Vital Signs Temp Pulse Resp BP Pulse Ox 98.9 F 81 19 H 108/64 94 01/06/18 07:00 01/06/18 08:00 01/06/18 07:00 01/06/18 07:00 01/06/18 07:00 Oxygen Flow Rate (L/min) 40 Oxygen Delivery Method Mechanical Ventilator Weight: 138 kg Body Mass Index (BMI) 45.8 Finger Stick Blood Glucose 193 Intake and Output for Last 24 Hours 01/04/18 01/05/18 01/06/18 23:59 23:59 23:59 Intake Total 2163 / 2163 3372 / 3372 618 / 618 Output Total 2125 / 2125 2290 / 2290 300 / 300 Balance 38 / 38 1082 / 1082 318 / 318 Microbiology Past 72 Hours 01/01/18 17:13 Sputum, Tracheal Aspirate Gram Stain - Final 01/01/18 17:13 Sputum, Tracheal Aspirate Respiratory Culture - Final Gram positive milli Laboratory Results 01/05/18 11:28: POC Glucose 172 H 01/05/18 18:20: POC Glucose 185 H 01/05/18 21:21: POC Glucose 154 H 01/05/18 23:26: POC Glucose 140 H 01/06/18 05:39: POC Glucose 131 H Current Medications Acetaminophen (Tylenol Liquid) 650 mg GT Q6H PRN PRN PRN Reason: FEVER Last Admin: 12/24/17 00:16 Dose: 650 mg Albuterol Sulfate (Ventolin Aerosols) 2.5 mg INHALATION Q6HWA.RT [facility] Last Admin: 01/06/18 07:02 Dose: 2.5 mg Albuterol Sulfate (Ventolin Aerosols) 2.5 mg INHALATION Q2H PRN PRN PRN Reason: SOB &/OR WHEEZING Last Admin: 01/05/18 23:00 Dose: 2.5 mg Aspirin (Aspirin, Baby) 81 mg GT DAILY [facility] Last Admin: 01/05/18 08:20 Dose: 81 mg Atorvastatin Calcium (Lipitor) 40 mg GT QHS [facility] Last Admin: 01/05/18 21:12 Dose: 40 mg Chlorhexidine Gluconate () 15 ml PO BID [facility] Last Admin: 01/05/18 21:13 Dose: 15 ml Chlorhexidine Gluconate () 1 each TOPICAL DAILY [facility] Last Admin: 01/06/18 04:48 Dose: 1 each Clopidogrel Bisulfate (Plavix) 75 mg GT DAILY [facility] Last Admin: 01/05/18 08:20 Dose: 75 mg Dextrose (D50w Syringe) 0 gm IV X1 PRN; Protocol PRN Reason: Hypoglycemia Escitalopram Oxalate (Lexapro) 10 mg PO DAILY [facility] Last Admin: 01/05/18 21:12 Dose: 10 mg Famotidine (Pepcid) 20 mg GT BID [facility] Last Admin: 01/05/18 21:12 Dose: 20 mg Furosemide (Lasix) 80 mg PO TID [facility] Glucagon () 1 mg IM .X1 PRN PRN Reason: Hypoglycemia Heparin Sodium (Beef Lung) (Heparin 500 Unit/5 Ml (100/Ml)) 500 unit IV UD PRN PRN Reason: HEPARIN FLUSH Heparin Sodium (Porcine) (Heparin Na) 5,000 unit SC Q8 [facility] Last Admin: 01/06/18 05:40 Dose: 5,000 unit Sodium Chloride () 250 mls @ 15 mls/hr IV .[id number] PRN PRN Reason: SALINE FLUSH Sodium Chloride () 250 mls @ 15 mls/hr IV .[id number] PRN PRN Reason: SALINE FLUSH Last Admin: 12/16/17 21:29 Dose: 15 mls/hr Enteral Nutritional Formula (Vital Af 1.2 Jeremiah Liquid) 1,000 mls @ 65 mls/hr GT .[id number] [facility] Last Admin: 01/06/18 01:20 Dose: Not Given Sodium Chloride () 1,000 mls @ 0 mls/hr IV .Q0M [facility] Sodium Chloride () 1,000 mls @ 0 mls/hr IV .Q0M [facility] Insulin Glargine (Lantus (Bk)) 35 units SC BID [facility] Last Admin: 01/05/18 21:27 Dose: 35 units Insulin Human Lispro (Humalog Kwikpen (Bk)) 0 unit SC Q6 [facility]; Protocol Last Admin: 01/06/18 05:54 Dose: Not Given Losartan Potassium (Cozaar) 25 mg PO DAILY [facility] Last Admin: 01/05/18 08:21 Dose: 25 mg Magnesium Hydroxide (Milk Of Magnesia) 30 ml PO DAILY PRN PRN PRN Reason: Constipation Nystatin (Nystatin) 500,000 unit PO Q6 [facility] Last Admin: 01/06/18 05:40 Dose: 500,000 unit Oxycodone HCl (Oxyir) 5 mg GT Q6H PRN PRN PRN Reason: SEVERE PAIN (6-10/10) Last Admin: 01/06/18 04:45 Dose: 5 mg Polyethylene Glycol (Miralax) 17 gm GT DAILY PRN PRN PRN Reason: Constipation Potassium Bicarb/Potassium Chloride (Potassium Chl 25 Meq Eff (For Liquid)) 25 meq GT TID [facility] Last Admin: 01/06/18 05:40 Dose: 25 meq Prednisone () 40 mg GT DAILY@0800 [facility] Last Admin: 01/05/18 08:20 Dose: 40 mg Sodium Chloride () 5 - 30 ml IV UD PRN PRN Reason: SALINE FLUSH Last Admin: 01/06/18 06:00 Dose: 20 ml Medical Necessity - Tobacco Use Smoking Status: Current every day smoker Assessment/Plan All Active Problems (Last Updated 12/25/17 @ 08:22 by Juan Manuel Subramanian DO) Aspiration pneumonia due to food (regurgitated) (Acute) Heart failure with preserved ejection fraction (Acute) GALILEA (acute kidney injury) (Acute) Klebsiella pneumonia (Acute) Acute respiratory failure with hypoxia and hypercapnia (Acute) Pneumococcal pneumonia (Acute) Metabolic encephalopathy (Resolved) Chest pain (Resolved) Respiratory failure, acute (Resolved) 57-year-old male with past medical history of CAD status post [place], stents, EMILIA, chronic systolic CHF, asthma, type II DM, morbid obesity was admitted on 12/12/17 with progressive shortness of breath and lethargy, and was said to be having agonal breathing in the ED. He was emergently intubated and has since remained in the ICU. Today is Day 25 of admission, status post tracheostomy day 7. 1. Acute on chronic hypoxic and hypercapnic respiratory failure due to CHF exacerbation, sleep apnea and aspiration pneumonia Remains on ventilatory support, status post tracheostomy, sputum cultures growing gram-positive rods, off antibiotics, on prednisone taper. New aggressive pulmonary toileting and ventilatory support. 2. Acute systolic CHF exacerbation, EF of 25% per LV angiogram; 60% on 2D echo(differences in EF likely secondary to body habitus) Diuresing but weight has not changed much in the last 24-48 hours, Lasix increased to 80 mg p.o. 3 times daily, continue to monitor weights and I's and O's 3. Hypertension, remains controlled, relatively hypotensive at times, on losartan 25 mg daily 4. Type 2 diabetes mellitus, blood sugars are fairly controlled, on Lantus 35 units subcu twice daily , Accu-Cheks with insulin sliding scale. 5. Hypernatremia, resolved. 6. Hypokalemia, resolved. 7. Paroxysmal atrial fibrillation, in NSR, cardiology consulted 8. Acute metabolic encephalopathy due to general medical condition, resolved 9. CAD status post stents, on aspirin and Plavix,atorvastatin as well as losartan. 10. DVT Prophylaxis: Heparin 11. Morbid obesity, BMI 44.9, complicates care 12. GI prophylaxis with Famotidine. 13. Disposition: pending possible placement in LTACH Code Visit Inpatient E&M: [id number] Subs Hosp L2
[2018-01-06] MEDS: Aspirin 81 MG TAB.CHEW GT (08:46)
[2018-01-06] MEDS: predniSONE 20 MG Tablet 40 MG GT (08:46)
[2018-01-06] MEDS: Furosemide 80 MG Tablet PO ×3 (08:46→23:01)
[2018-01-06] MEDS: Losartan Potassium 25 MG Tablet PO (08:46)
[2018-01-06] MEDS: Famotidine 20 MG Tablet GT ×2 (08:47→23:01)
[2018-01-06] MEDS: Clopidogrel Bisulfate 75 MG Tablet GT (08:47)
[2018-01-06] MEDS: Chlorhexidine 15 ML PO ×2 (08:47→23:02)
[2018-01-06] MEDS: Escitalopram Oxalate 10 MG Tablet PO (08:47)
--- NOTE | 2018-01-06 10:33 | CASEMGMT ---
Addendum entered by Renae Tesfaye 01/06/18 14:14: SW called [facility] at [place], let them know to follow up w/MUKESH Mehta, with any information regarding if they can take pt, or any questions. BUDDY Cowart, [employer] P[employer]ENER Original Note: Addendum entered by Renae Tesfaye 01/06/18 13:25: SW attempted to speak w/pt, however pt is asleep. SW did call pt's POA, [place], message left letting him know [facility] was full and a referral was sent to [facility]. SW will continue to follow. BUDDY Cowart, CYANIDE POT HARDENER Original Note: Addendum entered by Renae Tesfaye 01/06/18 12:44: SW called [facility] again, they have no beds. SW called [facility] in [place], faxed referral. SW will await response. BUDDY Cowart, [employer]IDE P[employer] HARDENER Original Note: SW participated in ICU rounds this morning. SW explained to pt that the LTACH was denied by insurance, and that we are appealing the decision however. Pt nodded in understanding. SW explained if the insurance upholds the LTACH denial, we can look into pt going to a residential that can manage pt's needs. SW explained the two closest facilities to here are [facility] or [facility]. Pt does not have a preference, just asked if they will be able to help him with his voice box (meaning a speaking valve) and managing the vent. Pt not able to talk, wrote down questions for this SW. SW explained when this SW makes the referral, will make sure the residential feels they can manage pt's needs. Pt agreed to have SW start w/[facility] [place]. SW also asked if he would like this SW to call his POA [place], pt agreeable to have SW call [place] to update him. SW spoke w/[place], pt's POA. SW let him know that we are still working through the appeals process with pt's insurance. MUKESH explained that Dr. Campos did a peer to peer review with [facility] on Tuesday, and the denial was upheld. Then an institutional appeal was initiated at that time. MUKESH explained if the insurance upholds the denial, SW spoke w/pt about making a referral to a residential that can manage pt's needs. MUKESH explained to Mr. Vega also that the two closest facilities are [facility] in [place] or [facility] in [place]. Mr. Vega also does not have a preference and is okay w/SW starting with [facility] in [place]. SW explained will start the referral process today. Mr. Vega also states that wherever pt goes, he wants to make sure they are going to work on weaning him off of the ventilator. SW explained will speak w/the facilities about this. MUKESH called [facility], message left for [place] [facility] to call this SW back. Once MUKESH hears back from [place] will speak w/her about the pt and fax the referral if they have availability. If not, MUKESH will call [facility] in [place]. MUKESH will continue to follow. BUDDY Cowart, CY[employer]IDE POT HARDENER
--- NOTE | 2018-01-06 10:33 | CASEMGMT ---
Received phone call from Sharon Cooper LTACH case investigator with [facility]. She is available for discharge planning with patient as LTACH was denied. Informed Sharon that emergency appeal was filed, she will try to find that appeal on her end. . La Hutton RN-CM updated of same. Rhianna Pritchett LPN Clinical Support
[2018-01-06] MEDS: Insulin Lispro 100 UNIT/ML INSULN.PEN SC ×3 (12:19→23:09)
[2018-01-06 12:25] LABS: Bedside Glucose 181 mg/dL (70-110)
--- NOTE | 2018-01-06 14:52 | CASEMGMT ---
MUKESH received a call from Janessa at [facility]. She asked if it would be okay if someone came out to do an onsite visit with patient on Tuesday. MUKESH said that would be fine. Ultimately the plan is LTACH first, however we are waiting on an expedited appeal. [facility] would be a back up plan. Plan: Await LTACH appeal and if denied possibly [facility] pending their on site visit. Nyla FELTON MSW
[2018-01-06] MEDS: Vital AF 1.2 Cal Liquid 1,000 ML 65 ML GT (16:37)
[2018-01-06 16:45] LABS: Bedside Glucose 188 mg/dL (70-110)
[2018-01-06] MEDS: Atorvastatin Calcium 40 MG Tablet GT (23:02)
[2018-01-06 23:51] LABS: Bedside Glucose 154 mg/dL (70-110)
[2018-01-07] VITALS (35 sets, daily range): BP systolic 90–134; BP diastolic 53–90; PULSE 75–90; RESP 10–26; TEMP 36.8–37.4; O2SAT 89–98
[2018-01-07] MEDS: Albuterol 2.5 MG/3 ML VIAL.NEB. INHALATION ×3 (01:50→18:35)
[2018-01-07 04:46] LABS: Absolute Lymphocyte Count 2.35 X10^3/ul (0.83-4.51); Absolute Neutrophil Count 5.7 X10^3/uL (2.0-7.7); Basophil# 0.01 X10^3/uL; Basophil% 0.1 % (0-1); Eosinophil# 0.07 X10^3/uL; Eosinophils% 0.8 % (0-5); Hematocrit 39.7 % (40-54); Hemoglobin 12.3 g/dl (13.0-16.5); Lymphocyte # 2.35 X10^3/ul (4.0); Lymphocyte % 27.9 % (19-41); Mean Corpuscular Hgb 27.2 pg (27.0-32.0); Mean Corpuscular Volume 87.8 fL (80-94); Mean Platelet Vol. 10.8 fl (6.2-12.0); Monocyte# 0.26 X10^3/uL; Monocyte% 3.1 % (0-10); Neutrophil # 5.71 X10^3/uL (2.7-7.7); Neutrophil % 67.7 % (47-70); POSITIVE COUNT NO; POSITIVE DIFFERENTIAL NO; POSITIVE MORPHOLOGY NO; Platelet Count 110 K/mm3 (150-450); RBC Distribution Width CV 16.1 % (11.6-14.6); RBC Distribution Width SD 51.7 fl (35.1-43.9); Red Blood Count 4.52 M/mm3 (4.6-6.2); White Blood Count 8.4 K/mm3 (4.4-11.0)
[2018-01-07 04:59] LABS: Anion Gap 8 (5-15); BUN 29 mg/dL (7-18); BUN/Creat Ratio 42.4 RATIO (10-20); Chloride 102 mmol/L (98-107); Creatinine, Serum 0.68 mg/dL (0.70-1.30); EST Glomerular Filtration Rate 126 mL/min (>60); Est Glom Filt Rate - Afr Amer 152 mL/min (>60); Estimated Creatinine Clearance 113.16 ml/min; Glucose 139 mg/dL (74-106); Magnesium 2.2 mg/dL (1.6-2.6); Potassium 3.5 mmol/L (3.5-5.1); Sodium Level 142 mmol/L (136-145)
[2018-01-07] MEDS: CHLORHEXIDINE GLUC 2% CLOTH 1 EACH TOWELETTE TOPICAL (05:11)
[2018-01-07] MEDS: Furosemide 80 MG Tablet PO ×3 (05:11→21:20)
[2018-01-07] MEDS: Heparin Injection (Vial) 5,000 UNIT/ML VIAL 5000 UNIT SC ×3 (05:11→21:20)
[2018-01-07] MEDS: NYSTATIN 500,000 UNIT/5 ML UDC 500000 UNIT PO ×4 (05:11→23:24)
[2018-01-07] MEDS: 0.9% NaCl Peripheral Flush Adult/Peds IV (05:12)
[2018-01-07 05:30] LABS: Bedside Glucose 149 mg/dL (70-110)
--- NOTE | 2018-01-07 06:54 | PN_ITS ---
Subjective: Patient did well overnight. Patient was On pressure support and tolerated relatively well. Secretions appear to be improving. Patient was able to sit in a chair for an hour yesterday. Patient denies any pain this morning. Patient continues to tolerate tube feeds. No information thus far on appeal for LTAC placement. General: Alert, Oriented x3, Cooperative, No apparent distress, - - Morbidly obese. Able to vocalize intermittently around the trach HEENT: Atraumatic, PERRLA, EOMI, Normocephalic, - - No scleral icterus or injection noted. Oral: Moist Mucosa, No Gingival or Mucosal Lesions/ Ulcerations Neck: Supple, No JVD, No Nodes, Trachea Midline Lungs: No wheeze, No rales, Diminished, Rhonchi - Improved with coughing, - - Symmetric expansion. No dullness to percussion. Cardiovascular: Regular rate, Regular Rhythm, Normal S1, Normal S2, No murmurs, No rub noted, No Gallop Abdomen: Bowel Sounds Present, Soft, Non Tender, Non-Distended, Obese Extremities: No cyanosis, Capillary Refill Less than 3 Seconds, Clubbing, Edema Skin: - - No significant change compared to previous Musculoskeletal: No Tenderness to Palpation of Joints or Extremities, No Muscle Wasting Lymphatic: No Cervical, Supraclavicular, or Inguinal Adenopathy Neurological: Cranial nerves II-XII grossly intact, Neuro grossly intact, Motor Exam 5/5 strength throughout Psych/Mental Status: Normal Affect, Appropriate Vital Signs Temp Pulse Resp BP Pulse Ox 36.8 C 84 20 H 105/81 H 96 01/07/18 04:00 01/07/18 06:00 01/07/18 06:00 01/07/18 06:00 01/07/18 06:00 Oxygen Flow Rate (L/min) 40 Oxygen Delivery Method Mechanical Ventilator Weight: 138 kg Body Mass Index (BMI) 45.8 Finger Stick Blood Glucose 193 Intake and Output for Last 24 Hours 01/05/18 01/06/18 01/07/18 23:59 23:59 23:59 Intake Total 3372 / 3372 2292 / 2292 780 / 780 Output Total 2290 / 2290 2500 / 2500 700 / 700 Balance 1082 / 1082 -208 / -208 80 / 80 Labs (Last 48 Hours) 01/05/18 01/05/18 01/05/18 11:28 18:20 21:21 WBC RBC Hgb Hct MCV MCH MCHC RDW RDW Differential Plt Count MPV Immature Gran % (Auto) Neut % (Auto) Lymph % (Auto) [facility] % (Auto) Eos % (Auto) Baso % (Auto) Absolute Neuts (auto) Absolute Lymphs (auto) Total Counted Sodium Potassium Chloride Carbon Dioxide Anion Gap BUN Creatinine Estim Creat Clear Calc Est GFR (MDRD) Af Amer Est GFR (MDRD) Non-Af BUN/Creatinine Ratio Glucose Calcium Phosphorus Magnesium POC Glucose 172 H 185 H 154 H 01/05/18 01/06/18 01/06/18 23:26 05:39 12:12 WBC RBC Hgb Hct MCV MCH MCHC RDW RDW Differential Plt Count MPV Immature Gran % (Auto) Neut % (Auto) Lymph % (Auto) [facility] % (Auto) Eos % (Auto) Baso % (Auto) Absolute Neuts (auto) Absolute Lymphs (auto) Total Counted Sodium Potassium Chloride Carbon Dioxide Anion Gap BUN Creatinine Estim Creat Clear Calc Est GFR (MDRD) Af Amer Est GFR (MDRD) Non-Af BUN/Creatinine Ratio Glucose Calcium Phosphorus Magnesium POC Glucose 140 H 131 H 181 H 01/06/18 01/06/18 01/07/18 16:34 23:08 04:30 WBC 8.4 RBC 4.52 L Hgb 12.3 L Hct 39.7 L MCV 87.8 MCH 27.2 MCHC 31.0 L RDW 16.1 H RDW Differential 51.7 H Plt Count 110 L MPV 10.8 Immature Gran % (Auto) 0.400 Neut % (Auto) 67.7 Lymph % (Auto) 27.9 [facility] % (Auto) 3.1 Eos % (Auto) 0.8 Baso % (Auto) 0.1 Absolute Neuts (auto) 5.7 Absolute Lymphs (auto) 2.35 Total Counted Not Reportable Sodium Potassium Chloride Carbon Dioxide Anion Gap BUN Creatinine Estim Creat Clear Calc Est GFR (MDRD) Af Amer Est GFR (MDRD) Non-Af BUN/Creatinine Ratio Glucose Calcium Phosphorus Magnesium POC Glucose 188 H 154 H 01/07/18 01/07/18 04:30 05:05 WBC RBC Hgb Hct MCV MCH MCHC RDW RDW Differential Plt Count MPV Immature Gran % (Auto) Neut % (Auto) Lymph % (Auto) [facility] % (Auto) Eos % (Auto) Baso % (Auto) Absolute Neuts (auto) Absolute Lymphs (auto) Total Counted Sodium 142 Potassium 3.5 Chloride 102 Carbon Dioxide 32.0 Anion Gap 8 BUN 29 H Creatinine 0.68 L Estim Creat Clear Calc 113.16 Est GFR (MDRD) Af Amer 152 Est GFR (MDRD) Non-Af 126 BUN/Creatinine Ratio 42.4 H Glucose 139 H Calcium 9.0 Phosphorus 4.0 Magnesium 2.2 POC Glucose 149 H Medical Necessity - Tobacco Use Smoking Status: Current every day smoker Assessment/Plan All Active Problems (Last Updated 12/25/17 @ 08:22 by Juan Manuel Subramanian DO) Aspiration pneumonia due to food (regurgitated) (Acute) Heart failure with preserved ejection fraction (Acute) GALILEA (acute kidney injury) (Acute) Klebsiella pneumonia (Acute) Acute respiratory failure with hypoxia and hypercapnia (Acute) Pneumococcal pneumonia (Acute) Metabolic encephalopathy (Resolved) Chest pain (Resolved) Respiratory failure, acute (Resolved) RECOMMENDATIONS: 1. Aggressive pulmonary toileting 2. Pressure support overnight, attempt trach mask trials today 3. Wean FiO2 and PEEP as tolerated. 4. Continue tube feeds with free water flushes 5. Recheck labs intermittently 6. Anticipate prolonged prednisone taper over 2-3 weeks 7. Disposition planning per case management 8. Decrease prednisone dosing IMPRESSIONS: 1. Acute on chronic combined respiratory failure Patient received tracheostomy on December 30. Patient has had trach and PEG for almost 1 week now. Insurance continues to deny LTAC referral stating that this is unnecessary as we can do anything they can do. Patient continues to have therapy during the day and has progressed appropriately given limited time with therapy. Occasional mucus plugging has been noted, but this appears to be improving. Patient appears to be improving from a respiratory standpoint, so will attempt trach mask during the day. Patient should continue mechanical ventilation overnight. Continue to await insurance approval for appropriate therapy of an LTAC facility. Emergency appeal has been sent. Patient does have something on his sputum culture, but is not currently having any fevers or chills. Continue with aggressive pulmonary toileting. 2. Metabolic encephalopathy RESOLVED > Patient does have a history of acute on chronic CO2 retention. We will continue to monitor closely. Continue to address chemistries as indicated 3. Decompensated heart failure/history of ischemic cardiomyopathy Patient's heart catheterization showed patent stents. Patient's fluid status continues to be somewhat of an issue. Patient is back on diuretic therapy. Cardiology is not seen in a couple days. Increased Lasix to 3 times daily to attempt even fluid balance and patient appears to be tolerating. Continue to monitor closely. Patient's weight has remained relatively stable. 4. Diabetes mellitus Continue Accu-Cheks and sliding scale insulin coverage. The patient has been tolerant of tube feeds to date. 5. Obstructive sleep apnea The patient has a history of outpatient noncompliance with the use of nocturnal Pap therapy. He only utilizes supplemental oxygen on a nightly basis. Patient currently with a tracheostomy and ventilator support. 6. Ongoing tobacco dependence/super morbid obesity/history of medical noncompliance/hypertension Complicates care, management, recovery and prognosis. Nicotine replacement therapy can be utilized while admitted to the hospital. 7. Acute kidney injury Resolved. Likely secondary to overdiuresis previously. Diuretics have been reinitiated. Code Visit Inpatient E&M: 50862 Subs Hosp L3
[2018-01-07] MEDS: oxyCODONE 5 MG Tablet GT ×3 (08:21→23:15)
[2018-01-07] MEDS: Vital AF 1.2 Cal Liquid 1,000 ML 65 ML GT (08:23)
[2018-01-07] MEDS: predniSONE 10 MG Tablet 30 MG GT (08:23)
[2018-01-07] MEDS: Losartan Potassium 25 MG Tablet PO (08:24)
[2018-01-07] MEDS: Chlorhexidine 15 ML PO ×2 (08:25→21:32)
[2018-01-07] MEDS: Escitalopram Oxalate 10 MG Tablet PO (08:27)
[2018-01-07] MEDS: Aspirin 81 MG TAB.CHEW GT (08:28)
[2018-01-07] MEDS: Famotidine 20 MG Tablet GT ×2 (08:28→21:20)
[2018-01-07] MEDS: Clopidogrel Bisulfate 75 MG Tablet GT (08:28)
--- NOTE | 2018-01-07 09:24 | CASEMGMT ---
SW participated in ICU rounds. SW let pt know that the appeal is still pending for the LTACH. SW let pt know that [facility] was full, so a referral was sent to [facility], and someone will come see the pt Tuesday from that facility. Pt nodded in understanding. SW will continue to follow. BUDDY Cowart, ESTATE TAX EXAMINER
--- NOTE | 2018-01-07 11:25 | PN_ITS ---
Patient Problems: Active and Suspected Problems (Last Updated 12/25/17 @ 08:22 by Juan Manuel Subramanian DO) Aspiration pneumonia due to food (regurgitated) (Acute) Subjective: Patient was seen and examined. Off ventilator, on trach collar. Feels frustrated. Denies any new complaints. No acute events overnight Objective: Physical exam: General: Alert, Cooperative, No apparent distress, Obese HEENT: Atraumatic, PERRLA, EOMI, Normocephalic, s/p tracheostomy, site is clean and dry, on trach collar Oral: Moist Mucosa Neck: Supple, No JVD, Negative Carotid Bruits Lungs: Diminished air entry lung bases, vesicular breath sounds Cardiovascular: Regular rate, Regular Rhythm, Normal S1, Normal S2, No murmurs Abdomen: Bowel Sounds Present, Soft, Non Tender, Non-Distended, No Hepato- splenomegaly, Obese Extremities: No bipedal edema Skin: - -Chronic stasis dermatitis of lower extremities. Musculoskeletal: No Tenderness to Palpation of Joints or Extremities Lymphatic: No Cervical, Supraclavicular, or Inguinal Adenopathy Neurological: Cranial nerves II-XII grossly intact, Neuro grossly intact Vitals/I&O's: Vital Signs Temp Pulse Resp BP Pulse Ox 98.3 F 76 22 H 105/63 94 01/07/18 07:00 01/07/18 09:55 01/07/18 09:55 01/07/18 09:55 01/07/18 09:55 Oxygen Flow Rate (L/min) 40 Oxygen Delivery Method Trach Collar Weight: 138 kg Body Mass Index (BMI) 45.8 Finger Stick Blood Glucose 193 Intake and Output for Last 24 Hours 01/05/18 01/06/18 01/07/18 23:59 23:59 23:59 Intake Total 3372 / 3372 2292 / 2292 840 / 840 Output Total 2290 / 2290 2500 / 2500 700 / 700 Balance 1082 / 1082 -208 / -208 140 / 140 Laboratory Results 01/06/18 12:12: POC Glucose 181 H 01/06/18 16:34: POC Glucose 188 H 01/06/18 23:08: POC Glucose 154 H 01/07/18 04:30: WBC 8.4, RBC 4.52 L, Hgb 12.3 L, Hct 39.7 L, MCV 87.8, MCH 27.2, MCHC 31.0 L, RDW 16.1 H, RDW Differential 51.7 H, Plt Count 110 L, MPV 10.8, Immature Gran % (Auto) 0.400, Neut % (Auto) 67.7, Lymph % (Auto) 27.9, [place] % (Auto) 3.1, Eos % (Auto) 0.8, Baso % (Auto) 0.1, Absolute Neuts (auto) 5.7, Absolute Lymphs (auto) 2.35, Total Counted Not Reportable 01/07/18 04:30: Sodium 142, Potassium 3.5, Chloride 102, Carbon Dioxide 32.0, Anion Gap 8, BUN 29 H, Creatinine 0.68 L, Estim Creat Clear Calc 113.16, Est GFR (MDRD) Af Amer 152, Est GFR (MDRD) Non-Af 126, BUN/Creatinine Ratio 42.4 H, Glucose 139 H, Calcium 9.0, Phosphorus 4.0, Magnesium 2.2 01/07/18 05:05: POC Glucose 149 H Current Medications Acetaminophen (Tylenol Liquid) 650 mg GT Q6H PRN PRN PRN Reason: FEVER Last Admin: 12/24/17 00:16 Dose: 650 mg Albuterol Sulfate (Ventolin Aerosols) 2.5 mg INHALATION Q6HWA.RT [facility] Last Admin: 01/07/18 07:08 Dose: 2.5 mg Albuterol Sulfate (Ventolin Aerosols) 2.5 mg INHALATION Q2H PRN PRN PRN Reason: SOB &/OR WHEEZING Last Admin: 01/06/18 10:37 Dose: 2.5 mg Aspirin (Aspirin, Baby) 81 mg GT DAILY [facility] Last Admin: 01/07/18 08:28 Dose: 81 mg Atorvastatin Calcium (Lipitor) 40 mg GT QHS [facility] Last Admin: 01/06/18 23:02 Dose: 40 mg Chlorhexidine Gluconate () 15 ml PO BID [facility] Last Admin: 01/07/18 08:25 Dose: 15 ml Chlorhexidine Gluconate () 1 each TOPICAL DAILY [facility] Last Admin: 01/07/18 05:11 Dose: 1 each Clopidogrel Bisulfate (Plavix) 75 mg GT DAILY [facility] Last Admin: 01/07/18 08:28 Dose: 75 mg Dextrose (D50w Syringe) 0 gm IV X1 PRN; Protocol PRN Reason: Hypoglycemia Escitalopram Oxalate (Lexapro) 10 mg PO DAILY [facility] Last Admin: 01/07/18 08:27 Dose: 10 mg Famotidine (Pepcid) 20 mg GT BID [facility] Last Admin: 01/07/18 08:28 Dose: 20 mg Furosemide (Lasix) 80 mg PO TID [facility] Last Admin: 01/07/18 05:11 Dose: 80 mg Glucagon () 1 mg IM .X1 PRN PRN Reason: Hypoglycemia Heparin Sodium (Beef Lung) (Heparin 500 Unit/5 Ml (100/Ml)) 500 unit IV UD PRN PRN Reason: HEPARIN FLUSH Heparin Sodium (Porcine) (Heparin Na) 5,000 unit SC Q8 [facility] Last Admin: 01/07/18 05:11 Dose: 5,000 unit Sodium Chloride () 250 mls @ 15 mls/hr IV .[id number] PRN PRN Reason: SALINE FLUSH Sodium Chloride () 250 mls @ 15 mls/hr IV .[id number] PRN PRN Reason: SALINE FLUSH Last Admin: 12/16/17 21:29 Dose: 15 mls/hr Enteral Nutritional Formula (Vital Af 1.2 Jeremiah Liquid) 1,000 mls @ 65 mls/hr GT .[id number] [facility] Last Admin: 01/07/18 08:23 Dose: 65 mls/hr Sodium Chloride () 1,000 mls @ 0 mls/hr IV .Q0M JUANY Sodium Chloride () 1,000 mls @ 0 mls/hr IV .Q0M [facility] Insulin Glargine (Lantus (Bkc)) 35 units SC BID [facility] Last Admin: 01/07/18 08:30 Dose: 35 units Insulin Human Lispro (Humalog Kwikpen (Bk)) 0 unit SC Q6 [facility]; Protocol Last Admin: 01/07/18 05:11 Dose: Not Given Losartan Potassium (Cozaar) 25 mg PO DAILY [facility] Last Admin: 01/07/18 08:24 Dose: 25 mg Magnesium Hydroxide (Milk Of Magnesia) 30 ml PO DAILY PRN PRN PRN Reason: Constipation Nystatin (Nystatin) 500,000 unit PO Q6 [facility] Last Admin: 01/07/18 05:11 Dose: 500,000 unit Oxycodone HCl (Oxyir) 5 mg GT Q6H PRN PRN PRN Reason: SEVERE PAIN (6-11/16) Last Admin: 01/07/18 08:21 Dose: 5 mg Polyethylene Glycol (Miralax) 17 gm GT DAILY PRN PRN PRN Reason: Constipation Potassium Bicarb/Potassium Chloride (Potassium Chl 25 Meq Eff (For Liquid)) 25 meq GT TID [facility] Last Admin: 01/07/18 05:12 Dose: 25 meq Prednisone () 30 mg GT DAILY@0800 [facility] Last Admin: 01/07/18 08:23 Dose: 30 mg Sodium Chloride () 5 - 30 ml IV UD PRN PRN Reason: SALINE FLUSH Last Admin: 01/07/18 05:12 Dose: 20 ml Medical Necessity - Tobacco Use Smoking Status: Current every day smoker Assessment/Plan All Active Problems (Last Updated 12/25/17 @ 08:22 by Juan Manuel Subramanian DO) Aspiration pneumonia due to food (regurgitated) (Acute) Heart failure with preserved ejection fraction (Acute) GALILEA (acute kidney injury) (Acute) Klebsiella pneumonia (Acute) Acute respiratory failure with hypoxia and hypercapnia (Acute) Pneumococcal pneumonia (Acute) Metabolic encephalopathy (Resolved) Chest pain (Resolved) Respiratory failure, acute (Resolved) 57-year-old male with past medical history of CAD status post UT, stents, EMILIA, chronic systolic CHF, asthma, type II DM, morbid obesity was admitted on 12/12/17 with progressive shortness of breath and lethargy, and was said to be having agonal breathing in the ED. He was emergently intubated and has since remained in the ICU. Today is Day 26 of admission, status post tracheostomy day 7. 1. Acute on chronic hypoxic and hypercapnic respiratory failure due to CHF exacerbation, sleep apnea and aspiration pneumonia Improving, off ventilatory to support, status post tracheostomy, on trach collar, sputum cultures growing gram-positive rods, off antibiotics, on prednisone taper. Continue with aggressive pulmonary toileting and ventilatory support. 2. Acute systolic CHF exacerbation, EF of 25% per LV angiogram; 60% on 2D echo(differences in EF likely secondary to body habitus) Diuresing but weight has not changed much in the last 24-48 hours, Lasix increased to 80 mg p.o. 3 times daily, continue to monitor weights and I's and O's 3. Hypertension, remains controlled, relatively hypotensive at times, on losartan 25 mg daily 4. Type 2 diabetes mellitus, blood sugars are fairly controlled, on Lantus 35 units subcu twice daily , Accu-Cheks with insulin sliding scale. 5. Hypernatremia, resolved. 6. Hypokalemia, resolved. 7. Paroxysmal atrial fibrillation, in NSR, cardiology consulted 8. Acute metabolic encephalopathy due to general medical condition, resolved 9. CAD status post stents, on aspirin and Plavix,atorvastatin, losartan. 10. DVT Prophylaxis: Heparin 11. Morbid obesity, BMI 44.9, complicates care 12. GI prophylaxis with Famotidine. 13. Disposition: pending LTAC vs SNF Code Visit Inpatient E&M: 50349 Subs Hosp L2
[2018-01-07 11:35] LABS: Bedside Glucose 171 mg/dL (70-110)
[2018-01-07] MEDS: Insulin Lispro 100 UNIT/ML INSULN.PEN SC ×2 (11:48→16:27)
[2018-01-07] MEDS: Atorvastatin Calcium 40 MG Tablet GT (21:20)
[2018-01-07 22:10] LABS: Bedside Glucose 148 mg/dL (70-110)
[2018-01-07 23:31] LABS: Bedside Glucose 144 mg/dL (70-110)
[2018-01-08] VITALS (36 sets, daily range): BP systolic 99–150; BP diastolic 54–91; PULSE 70–96; RESP 12–80; TEMP 36.4–37.2; O2SAT 78–99
[2018-01-08] MEDS: Albuterol 2.5 MG/3 ML VIAL.NEB. INHALATION ×4 (01:15→18:45)
[2018-01-08] MEDS: Heparin Injection (Vial) 5,000 UNIT/ML VIAL 5000 UNIT SC ×3 (06:33→21:13)
[2018-01-08] MEDS: Furosemide 80 MG Tablet PO ×3 (06:33→21:14)
[2018-01-08] MEDS: NYSTATIN 500,000 UNIT/5 ML UDC 500000 UNIT PO ×3 (06:33→17:02)
[2018-01-08] MEDS: Vital AF 1.2 Cal Liquid 1,000 ML 65 ML GT (06:35)
[2018-01-08 06:41] LABS: Bedside Glucose 99 mg/dL (70-110)
--- NOTE | 2018-01-08 06:42 | PCM.PN.INT ---
Subjective: The patient was seen and examined at the bedside this morning. Events from the last 24 hours have been reviewed. The patient is currently afebrile, hemodynamically stable and maintaining appropriate oxygen saturations with an FiO2 requirement of 40%. The patient has been transitioned to a trach collar this morning and is tolerating well. He is also tolerating his tube feeds without issue. Objective: The patient's most recent lab work, culture data and imaging studies have all been personally reviewed. Respiratory viral panel was negative. Surface echocardiogram revealed normal LV size and function with an ejection fraction of 60%. Sputum culture dated December 13 revealed evidence of Streptococcus pneumoniae. Repeat sputum culture dated December 16 was positive for Klebsiella. CTA chest dated December 26 revealed no evidence for pulmonary embolism, but did demonstrate bilateral lower lobe infiltrates. General: Alert, Cooperative, No apparent distress HEENT: Atraumatic, PERRLA, Normocephalic Oral: No Gingival or Mucosal Lesions/ Ulcerations Neck: Supple, No Nodes, Trachea Midline, - - Trach site intact. Lungs: No rhonchi, No wheeze, No rales, Diminished Cardiovascular: Regular rate, Regular Rhythm, Normal S1, Normal S2, No murmurs Abdomen: Bowel Sounds Present, Soft, Non Tender, Obese, - - PEG site is intact. Extremities: No clubbing, No cyanosis, Edema Skin: - - No significant change from previous. Musculoskeletal: No Muscle Wasting Lymphatic: No Cervical, Supraclavicular, or Inguinal Adenopathy Neurological: Neuro grossly intact Psych/Mental Status: Normal Affect, Appropriate Vital Signs Temp Pulse Resp BP Pulse Ox 37.2 C 82 16 121/83 H 94 01/08/18 00:00 01/08/18 06:00 01/08/18 06:00 01/08/18 06:00 01/08/18 06:00 Oxygen Flow Rate (L/min) 40 Oxygen Delivery Method Mechanical Ventilator Weight: 301 lb 2.423 oz Body Mass Index (BMI) 45.8 Finger Stick Blood Glucose 193 Intake and Output for Last 24 Hours 01/06/18 01/07/18 01/08/18 23:59 23:59 23:59 Intake Total 2292 / 2292 1544 / 1544 650 / 650 Output Total 2500 / 2500 2250 / 2250 600 / 600 Balance -208 / -208 -706 / -706 50 / 50 Labs (Last 48 Hours) 01/06/18 01/06/18 01/06/18 12:12 16:34 23:08 WBC RBC Hgb Hct MCV MCH MCHC RDW RDW Differential Plt Count MPV Immature Gran % (Auto) Neut % (Auto) Lymph % (Auto) [place] % (Auto) Eos % (Auto) Baso % (Auto) Absolute Neuts (auto) Absolute Lymphs (auto) Total Counted Sodium Potassium Chloride Carbon Dioxide Anion Gap BUN Creatinine Estim Creat Clear Calc Est GFR (MDRD) Af Amer Est GFR (MDRD) Non-Af BUN/Creatinine Ratio Glucose Calcium Phosphorus Magnesium POC Glucose 181 H 188 H 154 H 01/07/18 01/07/18 01/07/18 04:30 04:30 05:05 WBC 8.4 RBC 4.52 L Hgb 12.3 L Hct 39.7 L MCV 87.8 MCH 27.2 MCHC 31.0 L RDW 16.1 H RDW Differential 51.7 H Plt Count 110 L MPV 10.8 Immature Gran % (Auto) 0.400 Neut % (Auto) 67.7 Lymph % (Auto) 27.9 [place] % (Auto) 3.1 Eos % (Auto) 0.8 Baso % (Auto) 0.1 Absolute Neuts (auto) 5.7 Absolute Lymphs (auto) 2.35 Total Counted Not Reportable Sodium 142 Potassium 3.5 Chloride 102 Carbon Dioxide 32.0 Anion Gap 8 BUN 29 H Creatinine 0.68 L Estim Creat Clear Calc 113.16 Est GFR (MDRD) Af Amer 152 Est GFR (MDRD) Non-Af 126 BUN/Creatinine Ratio 42.4 H Glucose 139 H Calcium 9.0 Phosphorus 4.0 Magnesium 2.2 POC Glucose 149 H 01/07/18 01/07/18 01/07/18 11:30 21:14 23:24 WBC RBC Hgb Hct MCV MCH MCHC RDW RDW Differential Plt Count MPV Immature Gran % (Auto) Neut % (Auto) Lymph % (Auto) [place] % (Auto) Eos % (Auto) Baso % (Auto) Absolute Neuts (auto) Absolute Lymphs (auto) Total Counted Sodium Potassium Chloride Carbon Dioxide Anion Gap BUN Creatinine Estim Creat Clear Calc Est GFR (MDRD) Af Amer Est GFR (MDRD) Non-Af BUN/Creatinine Ratio Glucose Calcium Phosphorus Magnesium POC Glucose 171 H 148 H 144 H 01/08/18 06:34 WBC RBC Hgb Hct MCV MCH MCHC RDW RDW Differential Plt Count MPV Immature Gran % (Auto) Neut % (Auto) Lymph % (Auto) [place] % (Auto) Eos % (Auto) Baso % (Auto) Absolute Neuts (auto) Absolute Lymphs (auto) Total Counted Sodium Potassium Chloride Carbon Dioxide Anion Gap BUN Creatinine Estim Creat Clear Calc Est GFR (MDRD) Af Amer Est GFR (MDRD) Non-Af BUN/Creatinine Ratio Glucose Calcium Phosphorus Magnesium POC Glucose 99 Clinical Impression(s) from Imaging Studies Brain CT 12/12/17 07:34 IMPRESSION: No CT evidence of acute intracranial hemorrhage. Electronically Signed: Katya Wright MD at 8:54 EST , Service support , Chest X-Ray 12/12/17 07:40 IMPRESSION: Cardiomegaly and mild pulmonary congestion. Electronically Signed: Katya Wright MD at 8:02 EST , Service support , Chest X-Ray 12/15/17 06:34 IMPRESSION: All the support tubes are in good position. Residual increased markings in both lungs as described although there has been improvement as compared to prior study. Electronically Signed: Akhil Izquierdo MD at 11:07 EST Tel [phone], Service support , Chest X-Ray 12/16/17 12:08 IMPRESSION: Stable examination. Electronically Signed: Akhil Izquierdo MD at 12:39 EST Tel [phone], Service support , Chest X-Ray 12/19/17 07:17 IMPRESSION: Residual increased markings at the left lung base suggestive of atelectasis and/or infiltrate. The remainder of the examination is unremarkable. Electronically Signed: Akhil Izquierdo MD at 8:45 EST Tel [phone], Service support , Chest X-Ray 12/20/17 06:05 IMPRESSION: Stable position of the endotracheal tube and enterogastric tube. Progressive left lower lobe atelectasis and/or infiltrate. Electronically Signed: Akhil Izquierdo MD at 9:15 EST Tel [phone], Service support , Chest X-Ray 12/21/17 14:25 IMPRESSION: 1. Endotracheal tube tip is 5.5 cm above the byron. 2. Suboptimal ventilatory effort with stable platelike atelectasis at the left base and mild atelectasis on the right, as noted. Electronically Signed: Brayan Pretty MD at 15:36 EST , Service support , Chest X-Ray 12/21/17 15:00 IMPRESSION: Limited examination. The tip of the orogastric tube appears to be in the distal portion of the esophagus. Electronically Signed: Akhil Izquierdo MD at 15:49 EST Tel [phone], Service support , Chest X-Ray 12/22/17 06:00 IMPRESSION: Increased markings at the lung bases more prominent at the left lung base with blunting of left costophrenic angle. Mild increased markings in the right upper lobe. Follow-up is recommended. The tip of the endotracheal tube is at 5 cm proximal to the byron. Electronically Signed: Akhil Izquierdo MD at 9:46 EST Tel [phone], Service support , Chest X-Ray 12/22/17 11:01 IMPRESSION: 1. Nasogastric tube passes beneath the diaphragm, its tip outside the [id number]. 2. Endotracheal tube unchanged. 3. Improved atelectasis in the right base. Atelectasis on the left is unchanged. 4. Borderline cardiac enlargement. No CHF. Electronically Signed: Brayan Pretty MD at 12:14 EST , Service support , Chest X-Ray 12/22/17 18:29 IMPRESSION: Endotracheal tube ends 4 cm above the byron. Enteric tube is well below the gastroesophageal junction. Stable lung findings with 1 broad platelike area of atelectasis or infiltrate across the left lung base. Electronically Signed: Janessa Combs MD at 22:21 EST , Service support , KUB X-Ray 12/22/17 19:00 IMPRESSION: Orogastric tube placement with tip in gastric body Electronically Signed: Filemon Orona MD at 23:43 EST , Service support , Chest X-Ray 12/23/17 04:27 IMPRESSION: 1. Bilateral basilar airspace consolidation and atelectasis. 2. Right upper lobe subsegmental atelectasis. Electronically Signed: Katya Wright MD at 8:46 EST , Service support , Chest X-Ray 12/26/17 14:30 IMPRESSION: The tip of the tracheostomy is at 5.2 cm proximal to the byron. Alignment left basilar atelectasis with blunting of left costophrenic angle. Electronically Signed: Akhil Izquierdo MD at 15:10 EST Tel [phone], Service support , Chest CTA 12/26/17 15:01 IMPRESSION: Dense bilateral lower lobe infiltrates.. No evidence for pulmonary embolus ASHD. No evidence for aortic aneurysm Electronically Signed: Filemon Orona MD at 16:35 EST , Service support , Chest X-Ray 12/30/17 11:06 IMPRESSION: The tracheostomy tube appears to be well positioned. No visible pneumothorax. Electronically Signed: Julio Eloise, at 11:59 EST Tel , Service support , Chest X-Ray 01/01/18 08:45 IMPRESSION: No acute thoracic pathology. Electronically Signed: Karri Mancilladixon, at 9:19 EST Tel , Service support , KUB X-Ray 01/01/18 08:56 IMPRESSION: No bowel obstruction. Electronically Signed: Karri Blas, at 9:20 EST Tel , Service support , Medical Necessity - Tobacco Use Smoking Status: Current every day smoker Assessment/Plan All Active Problems (Last Updated 12/25/17 @ 08:22 by Juan Manuel Subramanian DO) Aspiration pneumonia due to food (regurgitated) (Acute) Heart failure with preserved ejection fraction (Acute) GALILEA (acute kidney injury) (Acute) Klebsiella pneumonia (Acute) Acute respiratory failure with hypoxia and hypercapnia (Acute) Pneumococcal pneumonia (Acute) Metabolic encephalopathy (Resolved) Chest pain (Resolved) Respiratory failure, acute (Resolved) RECOMMENDATIONS: 1. Attempt trach mask trials today. Transition back to CPAP overnight. 2. Continue aggressive pulmonary toileting. 3. Continue bronchodilators. 4. Continue subcutaneous heparin and Pepcid for prophylaxis. 5. Continue tube feeds and free water flushes. 6. Wean prednisone. 7. Gentle diuresis per cardiology recommendations. IMPRESSIONS: 1. Acute on chronic combined respiratory failure Likely secondary to decompensated heart failure in the setting of medical noncompliance, with superimposed bronchospastic airway disease, ongoing tobacco dependence and aspiration pneumonia all contributing. The patient's hospital course to date has been complicated by 2 independent self extubations by the patient leading to aspiration of gastric contents. The patient has completed an antibiotic course accordingly. He has already undergone PEG tube placement. A follow-up CTA chest revealed no evidence for pulmonary embolism. Would plan to keep the patient's oxygen saturations 88-92%, to prevent paradoxical CO2 retention. The patient underwent successful tracheostomy placement on December 30. He has been able to tolerate trach mask trials and will be continued on such today. He will be transitioned back to CPAP overnight. 2. Metabolic encephalopathy Improved. Likely secondary to acute on chronic CO2 retention. Anticipate improvement with correction of the patient's underlying metabolic derangements. Minimize sedation as tolerated. 3. Decompensated heart failure/history of ischemic cardiomyopathy The patient's weight is significantly elevated when compared to that documented from November. The patient has been diuresed a great amount over his hospitalization. The patient did undergo a cardiac catheterization on December 28, which revealed patent stents. Continue diuretics as tolerated. 4. Diabetes mellitus Continue Accu-Cheks and sliding scale insulin coverage. Continue tube feeds as tolerated. 5. Obstructive sleep apnea The patient has a history of outpatient noncompliance with the use of nocturnal Pap therapy. He only utilizes supplemental oxygen on a nightly basis. 6. Ongoing tobacco dependence/super morbid obesity/history of medical noncompliance/hypertension Complicates care, management, recovery and prognosis. Nicotine replacement therapy can be utilized while admitted to the hospital. This note was generated with [employer] dictation software. It may contain incorrect words, spelling, and punctuation that were not noted in checking the note before signing. Code Visit Inpatient E&M: 54062 [facility]
--- NOTE | 2018-01-08 06:45 | PN_ITS ---
Subjective: The patient was seen and examined at the bedside this morning. Events from the last 24 hours have been reviewed. The patient is currently afebrile, hemodynamically stable and maintaining appropriate oxygen saturations with an FiO2 requirement of 40%. The patient has been transitioned to a trach collar this morning and is tolerating well. He is also tolerating his tube feeds without issue. Objective: The patient's most recent lab work, culture data and imaging studies have all been personally reviewed. Respiratory viral panel was negative. Surface echocardiogram revealed normal LV size and function with an ejection fraction of 60%. Sputum culture dated December 13 revealed evidence of Streptococcus pneumoniae. Repeat sputum culture dated December 16 was positive for Klebsiella. CTA chest dated December 26 revealed no evidence for pulmonary embolism, but did demonstrate bilateral lower lobe infiltrates. General: Alert, Cooperative, No apparent distress HEENT: Atraumatic, PERRLA, Normocephalic Oral: No Gingival or Mucosal Lesions/ Ulcerations Neck: Supple, No Nodes, Trachea Midline, - - Trach site intact. Lungs: No rhonchi, No wheeze, No rales, Diminished Cardiovascular: Regular rate, Regular Rhythm, Normal S1, Normal S2, No murmurs Abdomen: Bowel Sounds Present, Soft, Non Tender, Obese, - - PEG site is intact. Extremities: No clubbing, No cyanosis, Edema Skin: - - No significant change from previous. Musculoskeletal: No Muscle Wasting Lymphatic: No Cervical, Supraclavicular, or Inguinal Adenopathy Neurological: Neuro grossly intact Psych/Mental Status: Normal Affect, Appropriate Vital Signs Temp Pulse Resp BP Pulse Ox 37.2 C 82 16 121/83 H 94 01/08/18 00:00 01/08/18 06:00 01/08/18 06:00 01/08/18 06:00 01/08/18 06:00 Oxygen Flow Rate (L/min) 40 Oxygen Delivery Method Mechanical Ventilator Weight: 301 lb 2.423 oz Body Mass Index (BMI) 45.8 Finger Stick Blood Glucose 193 Intake and Output for Last 24 Hours 01/06/18 01/07/18 01/08/18 23:59 23:59 23:59 Intake Total 2292 / 2292 1544 / 1544 650 / 650 Output Total 2500 / 2500 2250 / 2250 600 / 600 Balance -208 / -208 -706 / -706 50 / 50 Labs (Last 48 Hours) 01/06/18 01/06/18 01/06/18 12:12 16:34 23:08 WBC RBC Hgb Hct MCV MCH MCHC RDW RDW Differential Plt Count MPV Immature Gran % (Auto) Neut % (Auto) Lymph % (Auto) [place] % (Auto) Eos % (Auto) Baso % (Auto) Absolute Neuts (auto) Absolute Lymphs (auto) Total Counted Sodium Potassium Chloride Carbon Dioxide Anion Gap BUN Creatinine Estim Creat Clear Calc Est GFR (MDRD) Af Amer Est GFR (MDRD) Non-Af BUN/Creatinine Ratio Glucose Calcium Phosphorus Magnesium POC Glucose 181 H 188 H 154 H 01/07/18 01/07/18 01/07/18 04:30 04:30 05:05 WBC 8.4 RBC 4.52 L Hgb 12.3 L Hct 39.7 L MCV 87.8 MCH 27.2 MCHC 31.0 L RDW 16.1 H RDW Differential 51.7 H Plt Count 110 L MPV 10.8 Immature Gran % (Auto) 0.400 Neut % (Auto) 67.7 Lymph % (Auto) 27.9 [place] % (Auto) 3.1 Eos % (Auto) 0.8 Baso % (Auto) 0.1 Absolute Neuts (auto) 5.7 Absolute Lymphs (auto) 2.35 Total Counted Not Reportable Sodium 142 Potassium 3.5 Chloride 102 Carbon Dioxide 32.0 Anion Gap 8 BUN 29 H Creatinine 0.68 L Estim Creat Clear Calc 113.16 Est GFR (MDRD) Af Amer 152 Est GFR (MDRD) Non-Af 126 BUN/Creatinine Ratio 42.4 H Glucose 139 H Calcium 9.0 Phosphorus 4.0 Magnesium 2.2 POC Glucose 149 H 01/07/18 01/07/18 01/07/18 11:30 21:14 23:24 WBC RBC Hgb Hct MCV MCH MCHC RDW RDW Differential Plt Count MPV Immature Gran % (Auto) Neut % (Auto) Lymph % (Auto) [place] % (Auto) Eos % (Auto) Baso % (Auto) Absolute Neuts (auto) Absolute Lymphs (auto) Total Counted Sodium Potassium Chloride Carbon Dioxide Anion Gap BUN Creatinine Estim Creat Clear Calc Est GFR (MDRD) Af Amer Est GFR (MDRD) Non-Af BUN/Creatinine Ratio Glucose Calcium Phosphorus Magnesium POC Glucose 171 H 148 H 144 H 01/08/18 06:34 WBC RBC Hgb Hct MCV MCH MCHC RDW RDW Differential Plt Count MPV Immature Gran % (Auto) Neut % (Auto) Lymph % (Auto) [place] % (Auto) Eos % (Auto) Baso % (Auto) Absolute Neuts (auto) Absolute Lymphs (auto) Total Counted Sodium Potassium Chloride Carbon Dioxide Anion Gap BUN Creatinine Estim Creat Clear Calc Est GFR (MDRD) Af Amer Est GFR (MDRD) Non-Af BUN/Creatinine Ratio Glucose Calcium Phosphorus Magnesium POC Glucose 99 Clinical Impression(s) from Imaging Studies Brain CT 12/12/17 07:34 IMPRESSION: No CT evidence of acute intracranial hemorrhage. Electronically Signed: Katya Wright MD at 8:54 EST , Service support , Chest X-Ray 12/12/17 07:40 IMPRESSION: Cardiomegaly and mild pulmonary congestion. Electronically Signed: Katya Wright MD at 8:02 EST , Service support , Chest X-Ray 12/15/17 06:34 IMPRESSION: All the support tubes are in good position. Residual increased markings in both lungs as described although there has been improvement as compared to prior study. Electronically Signed: Akhil Izquierdo MD at 11:07 EST Tel [phone], Service support , Chest X-Ray 12/16/17 12:08 IMPRESSION: Stable examination. Electronically Signed: Akhil Izquierdo MD at 12:39 EST Tel [phone], Service support , Chest X-Ray 12/19/17 07:17 IMPRESSION: Residual increased markings at the left lung base suggestive of atelectasis and/or infiltrate. The remainder of the examination is unremarkable. Electronically Signed: Akhil Izquierdo MD at 8:45 EST Tel [phone], Service support , Chest X-Ray 12/20/17 06:05 IMPRESSION: Stable position of the endotracheal tube and enterogastric tube. Progressive left lower lobe atelectasis and/or infiltrate. Electronically Signed: Akhil Izquierdo MD at 9:15 EST Tel [phone], Service support , Chest X-Ray 12/21/17 14:25 IMPRESSION: 1. Endotracheal tube tip is 5.5 cm above the byron. 2. Suboptimal ventilatory effort with stable platelike atelectasis at the left base and mild atelectasis on the right, as noted. Electronically Signed: Brayan Pretty MD at 15:36 EST , Service support , Chest X-Ray 12/21/17 15:00 IMPRESSION: Limited examination. The tip of the orogastric tube appears to be in the distal portion of the esophagus. Electronically Signed: Akhil Izquierdo MD at 15:49 EST Tel [phone], Service support , Chest X-Ray 12/22/17 06:00 IMPRESSION: Increased markings at the lung bases more prominent at the left lung base with blunting of left costophrenic angle. Mild increased markings in the right upper lobe. Follow-up is recommended. The tip of the endotracheal tube is at 5 cm proximal to the byron. Electronically Signed: Akhil Izquierdo MD at 9:46 EST Tel [phone], Service support , Chest X-Ray 12/22/17 11:01 IMPRESSION: 1. Nasogastric tube passes beneath the diaphragm, its tip outside the [id number]. 2. Endotracheal tube unchanged. 3. Improved atelectasis in the right base. Atelectasis on the left is unchanged. 4. Borderline cardiac enlargement. No CHF. Electronically Signed: Brayan Pretty MD at 12:14 EST , Service support , Chest X-Ray 12/22/17 18:29 IMPRESSION: Endotracheal tube ends 4 cm above the byron. Enteric tube is well below the gastroesophageal junction. Stable lung findings with 1 broad platelike area of atelectasis or infiltrate across the left lung base. Electronically Signed: Janessa Combs MD at 22:21 EST , Service support , KUB X-Ray 12/22/17 19:00 IMPRESSION: Orogastric tube placement with tip in gastric body Electronically Signed: Filemon Orona MD at 23:43 EST , Service support , Chest X-Ray 12/23/17 04:27 IMPRESSION: 1. Bilateral basilar airspace consolidation and atelectasis. 2. Right upper lobe subsegmental atelectasis. Electronically Signed: Katya Wright MD at 8:46 EST , Service support , Chest X-Ray 12/26/17 14:30 IMPRESSION: The tip of the tracheostomy is at 5.2 cm proximal to the byron. Alignment left basilar atelectasis with blunting of left costophrenic angle. Electronically Signed: Akhil Izquierdo MD at 15:10 EST Tel [phone], Service support , Chest CTA 12/26/17 15:01 IMPRESSION: Dense bilateral lower lobe infiltrates.. No evidence for pulmonary embolus ASHD. No evidence for aortic aneurysm Electronically Signed: Filemon Orona MD at 16:35 EST , Service support , Chest X-Ray 12/30/17 11:06 IMPRESSION: The tracheostomy tube appears to be well positioned. No visible pneumothorax. Electronically Signed: Julio Eloise, at 11:59 EST Tel , Service support , Chest X-Ray 01/01/18 08:45 IMPRESSION: No acute thoracic pathology. Electronically Signed: Karri Mancilladixon, at 9:19 EST Tel , Service support , KUB X-Ray 01/01/18 08:56 IMPRESSION: No bowel obstruction. Electronically Signed: Karri Blas, at 9:20 EST Tel , Service support , Medical Necessity - Tobacco Use Smoking Status: Current every day smoker Assessment/Plan All Active Problems (Last Updated 12/25/17 @ 08:22 by Juan Manuel Subramanian DO) Aspiration pneumonia due to food (regurgitated) (Acute) Heart failure with preserved ejection fraction (Acute) GALILEA (acute kidney injury) (Acute) Klebsiella pneumonia (Acute) Acute respiratory failure with hypoxia and hypercapnia (Acute) Pneumococcal pneumonia (Acute) Metabolic encephalopathy (Resolved) Chest pain (Resolved) Respiratory failure, acute (Resolved) RECOMMENDATIONS: 1. Attempt trach mask trials today. Transition back to CPAP overnight. 2. Continue aggressive pulmonary toileting. 3. Continue bronchodilators. 4. Continue subcutaneous heparin and Pepcid for prophylaxis. 5. Continue tube feeds and free water flushes. 6. Wean prednisone. 7. Gentle diuresis per cardiology recommendations. IMPRESSIONS: 1. Acute on chronic combined respiratory failure Likely secondary to decompensated heart failure in the setting of medical noncompliance, with superimposed bronchospastic airway disease, ongoing tobacco dependence and aspiration pneumonia all contributing. The patient's hospital course to date has been complicated by 2 independent self extubations by the patient leading to aspiration of gastric contents. The patient has completed an antibiotic course accordingly. He has already undergone PEG tube placement. A follow-up CTA chest revealed no evidence for pulmonary embolism. Would plan to keep the patient's oxygen saturations 88-92%, to prevent paradoxical CO2 retention. The patient underwent successful tracheostomy placement on December 30. He has been able to tolerate trach mask trials and will be continued on such today. He will be transitioned back to CPAP overnight. 2. Metabolic encephalopathy Improved. Likely secondary to acute on chronic CO2 retention. Anticipate improvement with correction of the patient's underlying metabolic derangements. Minimize sedation as tolerated. 3. Decompensated heart failure/history of ischemic cardiomyopathy The patient's weight is significantly elevated when compared to that documented from November. The patient has been diuresed a great amount over his hospitalization. The patient did undergo a cardiac catheterization on December 28, which revealed patent stents. Continue diuretics as tolerated. 4. Diabetes mellitus Continue Accu-Cheks and sliding scale insulin coverage. Continue tube feeds as tolerated. 5. Obstructive sleep apnea The patient has a history of outpatient noncompliance with the use of nocturnal Pap therapy. He only utilizes supplemental oxygen on a nightly basis. 6. Ongoing tobacco dependence/super morbid obesity/history of medical noncompliance/hypertension Complicates care, management, recovery and prognosis. Nicotine replacement therapy can be utilized while admitted to the hospital. This note was generated with [employer] dictation software. It may contain incorrect words, spelling, and punctuation that were not noted in checking the note before signing. Code Visit Inpatient E&M: 20782 [facility] L3
[2018-01-08 07:06] LABS: Bedside Glucose 227 mg/dL (70-110)
--- NOTE | 2018-01-08 07:17 | PN_ITS ---
Patient Problems: Active and Suspected Problems (Last Updated 12/25/17 @ 08:22 by Juan Manuel Subramanian DO) Aspiration pneumonia due to food (regurgitated) (Acute) Subjective: Patient was seen and examined. He was on a trach collar during the day and was back on the ventilatory support at night. Denied any complaints. No other acute events overnight. Objective: Physical exam: General: Alert, Cooperative, No apparent distress, Obese HEENT: Atraumatic, PERRLA, EOMI, Normocephalic, s/p tracheostomy, site is clean and dry, on trach collar Oral: Moist Mucosa Neck: Supple, No JVD, Negative Carotid Bruits Lungs: Diminished air entry lung bases, vesicular breath sounds Cardiovascular: Regular rate, Regular Rhythm, Normal S1, Normal S2, No murmurs Abdomen: Bowel Sounds Present, Soft, Non Tender, Non-Distended, No Hepato- splenomegaly, Obese Extremities: No bipedal edema Skin: - -Chronic stasis dermatitis of lower extremities. Musculoskeletal: No Tenderness to Palpation of Joints or Extremities Lymphatic: No Cervical, Supraclavicular, or Inguinal Adenopathy Neurological: Cranial nerves II-XII grossly intact, Neuro grossly intact Vitals/I&O's: Vital Signs Temp Pulse Resp BP Pulse Ox 98.9 F 82 16 121/83 H 94 01/08/18 00:00 01/08/18 06:00 01/08/18 06:00 01/08/18 06:00 01/08/18 06:00 Oxygen Flow Rate (L/min) 40 Oxygen Delivery Method Mechanical Ventilator Weight: 136.6 kg Body Mass Index (BMI) 45.8 Finger Stick Blood Glucose 193 Intake and Output for Last 24 Hours 01/06/18 01/07/18 01/08/18 23:59 23:59 23:59 Intake Total 2292 / 2292 1544 / 1544 650 / 650 Output Total 2500 / 2500 2250 / 2250 600 / 600 Balance -208 / -208 -706 / -706 50 / 50 Laboratory Results 01/07/18 11:30: POC Glucose 171 H 01/07/18 16:23: POC Glucose 227 H 01/07/18 21:14: POC Glucose 148 H 01/07/18 23:24: POC Glucose 144 H 01/08/18 06:34: POC Glucose 99 Current Medications Acetaminophen (Tylenol Liquid) 650 mg GT Q6H PRN PRN PRN Reason: FEVER Last Admin: 12/24/17 00:16 Dose: 650 mg Albuterol Sulfate (Ventolin Aerosols) 2.5 mg INHALATION Q6HWA.RT [facility] Last Admin: 01/08/18 07:17 Dose: 2.5 mg Albuterol Sulfate (Ventolin Aerosols) 2.5 mg INHALATION Q2H PRN PRN PRN Reason: SOB &/OR WHEEZING Last Admin: 01/06/18 10:37 Dose: 2.5 mg Aspirin (Aspirin, Baby) 81 mg GT DAILY [facility] Last Admin: 01/07/18 08:28 Dose: 81 mg Atorvastatin Calcium (Lipitor) 40 mg GT QHS [facility] Last Admin: 01/07/18 21:20 Dose: 40 mg Chlorhexidine Gluconate () 15 ml PO BID [facility] Last Admin: 01/07/18 21:32 Dose: 15 ml Chlorhexidine Gluconate () 1 each TOPICAL DAILY [facility] Last Admin: 01/07/18 05:11 Dose: 1 each Clopidogrel Bisulfate (Plavix) 75 mg GT DAILY [facility] Last Admin: 01/07/18 08:28 Dose: 75 mg Dextrose (D50w Syringe) 0 gm IV X1 PRN; Protocol PRN Reason: Hypoglycemia Escitalopram Oxalate (Lexapro) 10 mg PO DAILY [facility] Last Admin: 01/07/18 08:27 Dose: 10 mg Famotidine (Pepcid) 20 mg GT BID [facility] Last Admin: 01/07/18 21:20 Dose: 20 mg Furosemide (Lasix) 80 mg PO TID [facility] Last Admin: 01/08/18 06:33 Dose: 80 mg Glucagon () 1 mg IM .X1 PRN PRN Reason: Hypoglycemia Heparin Sodium (Beef Lung) (Heparin 500 Unit/5 Ml (100/Ml)) 500 unit IV UD PRN PRN Reason: HEPARIN FLUSH Heparin Sodium (Porcine) (Heparin Na) 5,000 unit SC Q8 [facility] Last Admin: 01/08/18 06:33 Dose: 5,000 unit Sodium Chloride () 250 mls @ 15 mls/hr IV .[id number] PRN PRN Reason: SALINE FLUSH Sodium Chloride () 250 mls @ 15 mls/hr IV .[id number] PRN PRN Reason: SALINE FLUSH Last Admin: 12/16/17 21:29 Dose: 15 mls/hr Enteral Nutritional Formula (Vital Af 1.2 Jeremiah Liquid) 1,000 mls @ 65 mls/hr GT .[id number] [facility] Last Admin: 01/08/18 06:35 Dose: 65 mls/hr Sodium Chloride () 1,000 mls @ 0 mls/hr IV .Q0M JUANY Sodium Chloride () 1,000 mls @ 0 mls/hr IV .Q0M [facility] Insulin Glargine (Lantus (Bkc)) 35 units SC BID [facility] Last Admin: 01/07/18 21:19 Dose: 35 units Insulin Human Lispro (Humalog Kwikpen (Bk)) 0 unit SC Q6 [facility]; Protocol Last Admin: 01/08/18 06:35 Dose: Not Given Losartan Potassium (Cozaar) 25 mg PO DAILY [facility] Last Admin: 01/07/18 08:24 Dose: 25 mg Magnesium Hydroxide (Milk Of Magnesia) 30 ml PO DAILY PRN PRN PRN Reason: Constipation Nystatin (Nystatin) 500,000 unit PO Q6 [facility] Last Admin: 01/08/18 06:33 Dose: 500,000 unit Oxycodone HCl (Oxyir) 5 mg GT Q6H PRN PRN PRN Reason: SEVERE PAIN (6-10/10) Last Admin: 01/07/18 23:15 Dose: 5 mg Polyethylene Glycol (Miralax) 17 gm GT DAILY PRN PRN PRN Reason: Constipation Potassium Bicarb/Potassium Chloride (Potassium Chl 25 Meq Eff (For Liquid)) 25 meq GT TID [facility] Last Admin: 01/08/18 06:33 Dose: 25 meq Prednisone () 30 mg GT DAILY@0800 [facility] Last Admin: 01/07/18 08:23 Dose: 30 mg Sodium Chloride () 5 - 30 ml IV UD PRN PRN Reason: SALINE FLUSH Last Admin: 01/07/18 05:12 Dose: 20 ml Medical Necessity - Tobacco Use Smoking Status: Current every day smoker Assessment/Plan All Active Problems (Last Updated 12/25/17 @ 08:22 by Juan Manuel Subramanian DO) Aspiration pneumonia due to food (regurgitated) (Acute) Heart failure with preserved ejection fraction (Acute) GALILEA (acute kidney injury) (Acute) Klebsiella pneumonia (Acute) Acute respiratory failure with hypoxia and hypercapnia (Acute) Pneumococcal pneumonia (Acute) Metabolic encephalopathy (Resolved) Chest pain (Resolved) Respiratory failure, acute (Resolved) 57-year-old male with past medical history of CAD status post AK, stents, EMILIA, chronic systolic CHF, asthma, type II DM, paroxysmal atrial fibrillation, morbid obesity was admitted on 12/12/17 with progressive shortness of breath and lethargy, and was said to be having agonal breathing in the ED. He was emergently intubated and has since remained in the ICU. Today is Day 27 of admission, status post tracheostomy day 8. 1. Acute on chronic hypoxic and hypercapnic respiratory failure due to CHF exacerbation, sleep apnea and aspiration pneumonia Improving, on and off ventilatory to support, status post tracheostomy, on trach collar during the day, off antibiotics, on prednisone taper. Continue with aggressive pulmonary toileting and ventilatory support. 2. Acute systolic CHF exacerbation, EF of 25% per LV angiogram; 60% on 2D echo(differences in EF likely secondary to body habitus) Continues to diurese well, on Lasix increased to 80 mg p.o. 3 times daily, continue to monitor weights and I's and O's 3. Hypertension, controlled, on losartan 25 mg daily 4. Type 2 diabetes mellitus, blood sugars are controlled, on Lantus 35 units subcu twice daily , Accu-Cheks with insulin sliding scale. 5. Hypernatremia, resolved. 6. Hypokalemia, resolved. 7. Paroxysmal atrial fibrillation, in NSR, cardiology consulted 8. Acute metabolic encephalopathy due to general medical condition, resolved 9. CAD status post stents, on aspirin and Plavix,atorvastatin, losartan. 10. Morbid obesity, BMI 44.9, complicates care 11. DVT Prophylaxis -Heparin 12. GI prophylaxis with Famotidine. 13. Disposition: pending LTAC vs SNF Code Visit Inpatient E&M: 35939 Subs Hosp L2
[2018-01-08] MEDS: oxyCODONE 5 MG Tablet GT ×2 (08:43→22:43)
[2018-01-08] MEDS: Losartan Potassium 25 MG Tablet PO (08:44)
[2018-01-08] MEDS: Escitalopram Oxalate 10 MG Tablet PO (08:44)
[2018-01-08] MEDS: predniSONE 10 MG Tablet 30 MG GT (08:44)
[2018-01-08] MEDS: Aspirin 81 MG TAB.CHEW GT (08:44)
[2018-01-08] MEDS: Chlorhexidine 15 ML PO ×2 (08:45→21:13)
[2018-01-08] MEDS: Clopidogrel Bisulfate 75 MG Tablet GT (08:46)
[2018-01-08] MEDS: CHLORHEXIDINE GLUC 2% CLOTH 1 EACH TOWELETTE TOPICAL (08:46)
[2018-01-08] MEDS: Famotidine 20 MG Tablet GT ×2 (08:47→21:14)
[2018-01-08 11:45] LABS: Bedside Glucose 144 mg/dL (70-110)
[2018-01-08 16:36] LABS: Bedside Glucose 206 mg/dL (70-110)
[2018-01-08] MEDS: Insulin Lispro 100 UNIT/ML INSULN.PEN SC (17:01)
[2018-01-08 21:15] LABS: Bedside Glucose 142 mg/dL (70-110)
[2018-01-08] MEDS: Atorvastatin Calcium 40 MG Tablet GT (21:15)
[2018-01-09] VITALS (25 sets, daily range): BP systolic 102–136; BP diastolic 52–89; PULSE 76–97; RESP 12–20; TEMP 36.3–37.2; O2SAT 88–97
[2018-01-09] MEDS: NYSTATIN 500,000 UNIT/5 ML UDC 500000 UNIT PO ×5 (00:01→23:55)
[2018-01-09 00:15] LABS: Bedside Glucose 144 mg/dL (70-110)
[2018-01-09] MEDS: Vital AF 1.2 Cal Liquid 1,000 ML 65 ML GT ×2 (01:30→22:17)
[2018-01-09] MEDS: CHLORHEXIDINE GLUC 2% CLOTH 1 EACH TOWELETTE TOPICAL (04:31)
[2018-01-09 04:35] LABS: Absolute Lymphocyte Count 2.13 X10^3/ul (0.83-4.51); Absolute Neutrophil Count 5.8 X10^3/uL (2.0-7.7); Basophil# 0.01 X10^3/uL; Basophil% 0.1 % (0-1); Eosinophil# 0.08 X10^3/uL; Hematocrit 39.8 % (40-54); Hemoglobin 12.4 g/dl (13.0-16.5); Lymphocyte # 2.13 X10^3/ul (4.0); Lymphocyte % 25.3 % (19-41); Mean Corp Hgb Conc 31.2 g/gl (32-36); Mean Corpuscular Hgb 27.3 pg (27.0-32.0); Mean Corpuscular Volume 87.5 fL (80-94); Mean Platelet Vol. 10.9 fl (6.2-12.0); Monocyte# 0.33 X10^3/uL; Monocyte% 3.9 % (0-10); Neutrophil # 5.81 X10^3/uL (2.7-7.7); Neutrophil % 69.1 % (47-70); POSITIVE COUNT NO; POSITIVE DIFFERENTIAL NO; POSITIVE MORPHOLOGY NO; Platelet Count 134 K/mm3 (150-450); RBC Distribution Width CV 16.3 % (11.6-14.6); RBC Distribution Width SD 51.5 fl (35.1-43.9); Red Blood Count 4.55 M/mm3 (4.6-6.2); White Blood Count 8.4 K/mm3 (4.4-11.0)
[2018-01-09 04:46] LABS: Anion Gap 12 (5-15); BUN 32 mg/dL (7-18); BUN/Creat Ratio 43.2 RATIO (10-20); Calcium,Total 9.2 mg/dL (8.5-10.1); Chloride 101 mmol/L (98-107); Creatinine, Serum 0.74 mg/dL (0.70-1.30); EST Glomerular Filtration Rate 115 mL/min (>60); Est Glom Filt Rate - Afr Amer 139 mL/min (>60); Glucose 147 mg/dL (74-106); Potassium 3.6 mmol/L (3.5-5.1); Sodium Level 144 mmol/L (136-145)
[2018-01-09] MEDS: Heparin Injection (Vial) 5,000 UNIT/ML VIAL 5000 UNIT SC ×3 (05:27→22:14)
[2018-01-09] MEDS: Furosemide 80 MG Tablet PO ×3 (05:34→22:16)
[2018-01-09 06:31] LABS: Bedside Glucose 143 mg/dL (70-110)
--- NOTE | 2018-01-09 06:52 | PN_ITS ---
Subjective: The patient was seen and examined at the bedside this morning. Events from the last 24 hours have been reviewed. The patient is currently afebrile, hemodynamically stable and maintaining appropriate oxygen saturations on a 40% trach collar. The patient has been tolerating daytime trach collar trials and is being placed back on CPAP overnight. Objective: The patient's most recent lab work, culture data and imaging studies have all been personally reviewed. Respiratory viral panel was negative. Surface echocardiogram revealed normal LV size and function with an ejection fraction of 60%. Sputum culture dated December 13 revealed evidence of Streptococcus pneumoniae. Repeat sputum culture dated December 16 was positive for Klebsiella. CTA chest dated December 26 revealed no evidence for pulmonary embolism, but did demonstrate bilateral lower lobe infiltrates. General: Alert, Cooperative, No apparent distress, - - Morbidly obese HEENT: Atraumatic, PERRLA, Normocephalic Oral: No Gingival or Mucosal Lesions/ Ulcerations Neck: Supple, Negative Hepatojugular Reflux, Trachea Midline, - - Trach site is C/D/I Lungs: No rhonchi, No wheeze, No rales, Diminished Cardiovascular: Regular rate, Regular Rhythm, Normal S1, Normal S2, No murmurs Abdomen: Bowel Sounds Present, Soft, Non Tender, Obese, - - PEG site is C/D/I Extremities: No clubbing, No cyanosis, Edema - Trace Skin: - - No significant change from previous. Musculoskeletal: No Muscle Wasting Lymphatic: No Cervical, Supraclavicular, or Inguinal Adenopathy Neurological: Cranial nerves II-XII grossly intact, Neuro grossly intact Psych/Mental Status: Normal Affect, Appropriate Vital Signs Temp Pulse Resp BP Pulse Ox 37.2 C 78 17 103/80 95 01/09/18 06:00 01/09/18 06:00 01/09/18 06:00 01/09/18 06:00 01/09/18 06:00 Oxygen Flow Rate (L/min) 5 Oxygen Delivery Method Nasal Cannula Weight: 298 lb 1.039 oz Body Mass Index (BMI) 45.8 Finger Stick Blood Glucose 193 Intake and Output for Last 24 Hours 01/07/18 01/08/18 01/09/18 23:59 23:59 23:59 Intake Total 1544 / 1544 1467 / 1467 1003 / 1003 Output Total 2250 / 2250 1700 / 1700 675 / 675 Balance -706 / -706 -233 / -233 328 / 328 Labs (Last 48 Hours) 01/07/18 01/07/18 01/07/18 11:30 16:23 21:14 WBC RBC Hgb Hct MCV MCH MCHC RDW RDW Differential Plt Count MPV Immature Gran % (Auto) Neut % (Auto) Lymph % (Auto) [place] % (Auto) Eos % (Auto) Baso % (Auto) Absolute Neuts (auto) Absolute Lymphs (auto) Total Counted Sodium Potassium Chloride Carbon Dioxide Anion Gap BUN Creatinine Estim Creat Clear Calc Est GFR (MDRD) Af Amer Est GFR (MDRD) Non-Af BUN/Creatinine Ratio Glucose Calcium POC Glucose 171 H 227 H 148 H 01/07/18 01/08/18 01/08/18 23:24 06:34 11:40 WBC RBC Hgb Hct MCV MCH MCHC RDW RDW Differential Plt Count MPV Immature Gran % (Auto) Neut % (Auto) Lymph % (Auto) [place] % (Auto) Eos % (Auto) Baso % (Auto) Absolute Neuts (auto) Absolute Lymphs (auto) Total Counted Sodium Potassium Chloride Carbon Dioxide Anion Gap BUN Creatinine Estim Creat Clear Calc Est GFR (MDRD) Af Amer Est GFR (MDRD) Non-Af BUN/Creatinine Ratio Glucose Calcium POC Glucose 144 H 99 144 H 01/08/18 01/08/18 01/09/18 16:29 21:10 00:00 WBC RBC Hgb Hct MCV MCH MCHC RDW RDW Differential Plt Count MPV Immature Gran % (Auto) Neut % (Auto) Lymph % (Auto) [place] % (Auto) Eos % (Auto) Baso % (Auto) Absolute Neuts (auto) Absolute Lymphs (auto) Total Counted Sodium Potassium Chloride Carbon Dioxide Anion Gap BUN Creatinine Estim Creat Clear Calc Est GFR (MDRD) Af Amer Est GFR (MDRD) Non-Af BUN/Creatinine Ratio Glucose Calcium POC Glucose 206 H 142 H 144 H 01/09/18 01/09/18 01/09/18 04:25 04:25 06:24 WBC 8.4 RBC 4.55 L Hgb 12.4 L Hct 39.8 L MCV 87.5 MCH 27.3 MCHC 31.2 L RDW 16.3 H RDW Differential 51.5 H Plt Count 134 L MPV 10.9 Immature Gran % (Auto) 0.600 Neut % (Auto) 69.1 Lymph % (Auto) 25.3 [place] % (Auto) 3.9 Eos % (Auto) 1.0 Baso % (Auto) 0.1 Absolute Neuts (auto) 5.8 Absolute Lymphs (auto) 2.13 Total Counted Not Reportable Sodium 144 Potassium 3.6 Chloride 101 Carbon Dioxide 31.0 Anion Gap 12 BUN 32 H Creatinine 0.74 Estim Creat Clear Calc 102.70 Est GFR (MDRD) Af Amer 139 Est GFR (MDRD) Non-Af 115 BUN/Creatinine Ratio 43.2 H Glucose 147 H Calcium 9.2 POC Glucose 143 H Clinical Impression(s) from Imaging Studies Brain CT 12/12/17 07:34 IMPRESSION: No CT evidence of acute intracranial hemorrhage. Electronically Signed: Katya Wright MD at 8:54 EST , Service support , Chest X-Ray 12/12/17 07:40 IMPRESSION: Cardiomegaly and mild pulmonary congestion. Electronically Signed: Katya Wright MD at 8:02 EST , Service support , Chest X-Ray 12/15/17 06:34 IMPRESSION: All the support tubes are in good position. Residual increased markings in both lungs as described although there has been improvement as compared to prior study. Electronically Signed: Akhil Izquierdo MD at 11:07 EST Tel [phone], Service support , Chest X-Ray 12/16/17 12:08 IMPRESSION: Stable examination. Electronically Signed: Akhil Izquierdo MD at 12:39 EST Tel [phone], Service support , Chest X-Ray 12/19/17 07:17 IMPRESSION: Residual increased markings at the left lung base suggestive of atelectasis and/or infiltrate. The remainder of the examination is unremarkable. Electronically Signed: Akhil Izquierdo MD at 8:45 EST Tel [phone], Service support , Chest X-Ray 12/20/17 06:05 IMPRESSION: Stable position of the endotracheal tube and enterogastric tube. Progressive left lower lobe atelectasis and/or infiltrate. Electronically Signed: Akhil Izquierdo MD at 9:15 EST Tel [phone], Service support , Chest X-Ray 12/21/17 14:25 IMPRESSION: 1. Endotracheal tube tip is 5.5 cm above the byron. 2. Suboptimal ventilatory effort with stable platelike atelectasis at the left base and mild atelectasis on the right, as noted. Electronically Signed: Brayan Pretty MD at 15:36 EST , Service support , Chest X-Ray 12/21/17 15:00 IMPRESSION: Limited examination. The tip of the orogastric tube appears to be in the distal portion of the esophagus. Electronically Signed: Akhil Izquierdo MD at 15:49 EST Tel [phone], Service support , Chest X-Ray 12/22/17 06:00 IMPRESSION: Increased markings at the lung bases more prominent at the left lung base with blunting of left costophrenic angle. Mild increased markings in the right upper lobe. Follow-up is recommended. The tip of the endotracheal tube is at 5 cm proximal to the byron. Electronically Signed: Akhil Izquierdo MD at 9:46 EST Tel [phone], Service support , Chest X-Ray 12/22/17 11:01 IMPRESSION: 1. Nasogastric tube passes beneath the diaphragm, its tip outside the [id number]. 2. Endotracheal tube unchanged. 3. Improved atelectasis in the right base. Atelectasis on the left is unchanged. 4. Borderline cardiac enlargement. No CHF. Electronically Signed: Brayan Pretty MD at 12:14 EST , Service support , Chest X-Ray 12/22/17 18:29 IMPRESSION: Endotracheal tube ends 4 cm above the byron. Enteric tube is well below the gastroesophageal junction. Stable lung findings with 1 broad platelike area of atelectasis or infiltrate across the left lung base. Electronically Signed: Janessa Combs MD at 22:21 EST , Service support , KUB X-Ray 12/22/17 19:00 IMPRESSION: Orogastric tube placement with tip in gastric body Electronically Signed: Filemon Orona MD at 23:43 EST , Service support , Chest X-Ray 12/23/17 04:27 IMPRESSION: 1. Bilateral basilar airspace consolidation and atelectasis. 2. Right upper lobe subsegmental atelectasis. Electronically Signed: Katya Wright MD at 8:46 EST , Service support , Chest X-Ray 12/26/17 14:30 IMPRESSION: The tip of the tracheostomy is at 5.2 cm proximal to the byron. Alignment left basilar atelectasis with blunting of left costophrenic angle. Electronically Signed: Akhil Izquierdo MD at 15:10 EST Tel [phone], Service support , Chest CTA 12/26/17 15:01 IMPRESSION: Dense bilateral lower lobe infiltrates.. No evidence for pulmonary embolus ASHD. No evidence for aortic aneurysm Electronically Signed: Filemon Orona MD at 16:35 EST , Service support , Chest X-Ray 12/30/17 11:06 IMPRESSION: The tracheostomy tube appears to be well positioned. No visible pneumothorax. Electronically Signed: Julio Navas, at 11:59 EST Tel , Service support , Chest X-Ray 01/01/18 08:45 IMPRESSION: No acute thoracic pathology. Electronically Signed: Karri Roopa, at 9:19 EST Tel , Service support , KUB X-Ray 01/01/18 08:56 IMPRESSION: No bowel obstruction. Electronically Signed: Karri Roopa, at 9:20 EST Tel , Service support , Medical Necessity - Tobacco Use Smoking Status: Current every day smoker Assessment/Plan All Active Problems (Last Updated 12/25/17 @ 08:22 by Juan Manuel Subramanian DO) Aspiration pneumonia due to food (regurgitated) (Acute) Heart failure with preserved ejection fraction (Acute) GALILEA (acute kidney injury) (Acute) Klebsiella pneumonia (Acute) Acute respiratory failure with hypoxia and hypercapnia (Acute) Pneumococcal pneumonia (Acute) Metabolic encephalopathy (Resolved) Chest pain (Resolved) Respiratory failure, acute (Resolved) RECOMMENDATIONS: 1. Continue trach mask support during the day. Wean FiO2 to maintain oxygen saturations 88-92%. 2. Place patient on BiPAP 12/6 nightly. 3. Continue aggressive pulmonary toileting. 4. Continue bronchodilators. 5. Continue tube feeds and free water flushes. 6. Wean prednisone 7. Gentle diuresis per cardiology recommendations. IMPRESSIONS: 1. Acute on chronic combined respiratory failure Likely secondary to decompensated heart failure in the setting of medical noncompliance, with superimposed bronchospastic airway disease, ongoing tobacco dependence and aspiration pneumonia all contributing. The patient's hospital course to date has been complicated by 2 independent self extubations by the patient leading to aspiration of gastric contents. The patient has completed an antibiotic course accordingly. He has already undergone PEG tube placement. A follow-up CTA chest revealed no evidence for pulmonary embolism. Would plan to keep the patient's oxygen saturations 88-92%, to prevent paradoxical CO2 retention. The patient underwent successful tracheostomy placement on December 30. He has been able to tolerate trach mask trials and will be continued on such today. The patient will be placed on BiPAP 12/6 nightly. Tube feeds will be continued accordingly. 2. Metabolic encephalopathy Resolved. Likely secondary to acute on chronic CO2 retention. 3. Decompensated heart failure/history of ischemic cardiomyopathy The patient's weight is significantly elevated when compared to that documented from November. The patient has been diuresed a great amount over his hospitalization. The patient did undergo a cardiac catheterization on December 28, which revealed patent stents. Continue diuretics as tolerated. 4. Diabetes mellitus Continue Accu-Cheks and sliding scale insulin coverage. Continue tube feeds as tolerated. 5. Obstructive sleep apnea The patient has a history of outpatient noncompliance with the use of nocturnal Pap therapy. The patient will be placed on BiPAP 12/6 nightly. 6. Ongoing tobacco dependence/super morbid obesity/history of medical noncompliance/hypertension Complicates care, management, recovery and prognosis. Nicotine replacement therapy can be utilized while admitted to the hospital. This note was generated with [employer] dictation software. It may contain incorrect words, spelling, and punctuation that were not noted in checking the note before signing. DISPOSITION: I do not feel that the patient would benefit from LTACH placement at this time. I would instead move forward with obtaining certification [facility] placement. He is currently medically stable for transfer out of the intensive care unit. Would plan to continue trach collar daily and BiPAP at night. Code Visit Inpatient E&M: [id number] [facility] Hosp L3
[2018-01-09] MEDS: Albuterol 2.5 MG/3 ML VIAL.NEB. INHALATION ×3 (06:55→19:01)
--- NOTE | 2018-01-09 07:36 | CPS ---
Vent on standby, pt on 40% trach collar tolerating well
--- NOTE | 2018-01-09 07:53 | PCM.PN.HOSP ---
Patient Problems: Active and Suspected Problems (Last Updated 12/25/17 @ 08:22 by Juan Manuel Subramanian DO) Aspiration pneumonia due to food (regurgitated) (Acute) Subjective: Patient is a 58-year-old gentleman who is been on admission for almost a month admitted with acute hypoxic respiratory failure. Patient has had a complicated stay. Objective: GENERAL: Patient sleepy but easily arousable HEENT: Atraumatic; EYES; Anicteric, Normal Conjunctiva NECK; Trach collar in place. RESPIRATORY: Diminished to auscultation bilaterally, CARDIOVASCULAR: Regular S1 S2, GI: soft, non-tender, normoactive bowel sounds, : No Renal angle tenderness; EXTREMITIES: No clubbing, no cyanosis. MUSCULOSKELETAL: No Joint Tenderness; NEURO: Awake; no lateralizing signs. SKIN: Stasis dermatitis both lower extremities PSYCH; flataffect Vitals/I&O's: Vital Signs Temp Pulse Resp BP Pulse Ox 98.9 F 87 16 111/61 88 01/09/18 06:00 01/09/18 07:00 01/09/18 07:00 01/09/18 07:00 01/09/18 07:00 Oxygen Flow Rate (L/min) 12 Oxygen Delivery Method Trach Collar Weight: 135.2 kg Body Mass Index (BMI) 45.8 Finger Stick Blood Glucose 193 Intake and Output for Last 24 Hours 01/07/18 01/08/18 01/09/18 23:59 23:59 23:59 Intake Total 1544 / 1544 1467 / 1467 1003 / 1003 Output Total 2250 / 2250 1700 / 1700 675 / 675 Balance -706 / -706 -233 / -233 328 / 328 Laboratory Results 01/08/18 11:40: POC Glucose 144 H 01/08/18 16:29: POC Glucose 206 H 01/08/18 21:10: POC Glucose 142 H 01/09/18 00:00: POC Glucose 144 H 01/09/18 04:25: WBC 8.4, RBC 4.55 L, Hgb 12.4 L, Hct 39.8 L, MCV 87.5, MCH 27.3, MCHC 31.2 L, RDW 16.3 H, RDW Differential 51.5 H, Plt Count 134 L, MPV 10.9, Immature Gran % (Auto) 0.600, Neut % (Auto) 69.1, Lymph % (Auto) 25.3, Snyder % (Auto) 3.9, Eos % (Auto) 1.0, Baso % (Auto) 0.1, Absolute Neuts (auto) 5.8, Absolute Lymphs (auto) 2.13, Total Counted Not Reportable 01/09/18 04:25: Sodium 144, Potassium 3.6, Chloride 101, Carbon Dioxide 31.0, Anion Gap 12, BUN 32 H, Creatinine 0.74, Estim Creat Clear Calc 102.70, Est GFR (MDRD) Af Amer 139, Est GFR (MDRD) Non-Af 115, BUN/Creatinine Ratio 43.2 H, Glucose 147 H, Calcium 9.2 01/09/18 06:24: POC Glucose 143 H Current Medications Acetaminophen (Tylenol Liquid) 650 mg GT Q6H PRN PRN PRN Reason: FEVER Last Admin: 12/24/17 00:16 Dose: 650 mg Albuterol Sulfate (Ventolin Aerosols) 2.5 mg INHALATION Q6HWA.RT [facility] Last Admin: 01/09/18 06:55 Dose: 2.5 mg Albuterol Sulfate (Ventolin Aerosols) 2.5 mg INHALATION Q2H PRN PRN PRN Reason: SOB &/OR WHEEZING Last Admin: 01/06/18 10:37 Dose: 2.5 mg Aspirin (Aspirin, Baby) 81 mg GT DAILY [facility] Last Admin: 01/08/18 08:44 Dose: 81 mg Atorvastatin Calcium (Lipitor) 40 mg GT QHS [facility] Last Admin: 01/08/18 21:15 Dose: 40 mg Chlorhexidine Gluconate () 15 ml PO BID [facility] Last Admin: 01/08/18 21:13 Dose: 15 ml Chlorhexidine Gluconate () 1 each TOPICAL DAILY [facility] Last Admin: 01/09/18 04:31 Dose: 1 each Clopidogrel Bisulfate (Plavix) 75 mg GT DAILY [facility] Last Admin: 01/08/18 08:46 Dose: 75 mg Dextrose (D50w Syringe) 0 gm IV X1 PRN; Protocol PRN Reason: Hypoglycemia Escitalopram Oxalate (Lexapro) 10 mg PO DAILY [facility] Last Admin: 01/08/18 08:44 Dose: 10 mg Famotidine (Pepcid) 20 mg GT BID [facility] Last Admin: 01/08/18 21:14 Dose: 20 mg Furosemide (Lasix) 80 mg PO TID [facility] Last Admin: 01/09/18 05:34 Dose: 80 mg Glucagon () 1 mg IM .X1 PRN PRN Reason: Hypoglycemia Heparin Sodium (Beef Lung) (Heparin 500 Unit/5 Ml (100/Ml)) 500 unit IV UD PRN PRN Reason: HEPARIN FLUSH Heparin Sodium (Porcine) (Heparin Na) 5,000 unit SC Q8 [facility] Last Admin: 01/09/18 05:27 Dose: 5,000 unit Sodium Chloride () 250 mls @ 15 mls/hr IV .[id number] PRN PRN Reason: SALINE FLUSH Sodium Chloride () 250 mls @ 15 mls/hr IV .[id number] PRN PRN Reason: SALINE FLUSH Last Admin: 12/16/17 21:29 Dose: 15 mls/hr Enteral Nutritional Formula (Vital Af 1.2 Jeremiah Liquid) 1,000 mls @ 65 mls/hr GT .[id number] [facility] Last Admin: 01/09/18 01:30 Dose: 65 mls/hr Sodium Chloride () 1,000 mls @ 0 mls/hr IV .Q0M JUANY Sodium Chloride () 1,000 mls @ 0 mls/hr IV .Q0M JUANY Insulin Glargine (Lantus (Bkc)) 35 units SC BID [facility] Last Admin: 01/08/18 21:12 Dose: 35 units Insulin Human Lispro (Humalog Kwikpen (Bk)) 0 unit SC Q6 [facility]; Protocol Last Admin: 01/09/18 06:36 Dose: Not Given Losartan Potassium (Cozaar) 25 mg PO DAILY [facility] Last Admin: 01/08/18 08:44 Dose: 25 mg Magnesium Hydroxide (Milk Of Magnesia) 30 ml PO DAILY PRN PRN PRN Reason: Constipation Nystatin (Nystatin) 500,000 unit PO Q6 [facility] Last Admin: 01/09/18 05:27 Dose: 500,000 unit Oxycodone HCl (Oxyir) 5 mg GT Q6H PRN PRN PRN Reason: SEVERE PAIN (6-10/10) Last Admin: 01/08/18 22:43 Dose: 5 mg Polyethylene Glycol (Miralax) 17 gm GT DAILY PRN PRN PRN Reason: Constipation Potassium Bicarb/Potassium Chloride (Potassium Chl 25 Meq Eff (For Liquid)) 25 meq GT TID [facility] Last Admin: 01/09/18 05:34 Dose: 25 meq Prednisone () 30 mg GT DAILY@0800 [facility] Last Admin: 01/08/18 08:44 Dose: 30 mg Sodium Chloride () 5 - 30 ml IV UD PRN PRN Reason: SALINE FLUSH Last Admin: 01/07/18 05:12 Dose: 20 ml Medical Necessity - Tobacco Use Smoking Status: Current every day smoker Assessment/Plan All Active Problems (Last Updated 12/25/17 @ 08:22 by Juan Manuel Subramanian, DO) Aspiration pneumonia due to food (regurgitated) (Acute) Heart failure with preserved ejection fraction (Acute) GALILEA (acute kidney injury) (Acute) Klebsiella pneumonia (Acute) Acute respiratory failure with hypoxia and hypercapnia (Acute) Pneumococcal pneumonia (Acute) Metabolic encephalopathy (Resolved) Chest pain (Resolved) Respiratory failure, acute (Resolved) Patient is a 58-year-old gentleman who is been on admission for almost a month admitted with acute hypoxic respiratory failure. Patient has had a complicated stay. 1. Acute on chronic hypoxic and hypercapnic respiratory failure due to multiple medical comorbidities including CHF exacerbation, aspiration pneumonia, obesity hypoventilation syndrome. Patient had a prolonged stay on the vent consultation was placed to ENT patient had trach placed on 12/30/2017 2. Acute systolic heart failure with an ejection fraction of 25% patient is on Lasix 3. Hypertension-blood pressure controlled, home medications continued with dose adjustment as needed 4. Diabetes mellitus type II: patient's oral hypoglycemics held. Placed on long acting insulin, Accu-Cheks a.c. and at bedtime and covered with sliding scale insulin 5. Hypokalemia corrected per protocol 6. Paroxysmal atrial fibrillation patient currently in sinus rhythm has been seen in consultation by cardiology 7. Acute metabolic encephalopathy; resolved 8. Coronary artery disease with previous stent placement patient is on dual antiplatelet therapy with aspirin and Plavix in addition to losartan and atorvastatin 9. Morbid obesity with BMI of 44 10. Obstructive sleep apnea 11. Obesity hypoventilation syndrome 12. Physical deconditioning 13. DVT prophylaxis SC heparin Active Medications Acetaminophen (Tylenol Liquid) 650 mg GT Q6H PRN PRN PRN Reason: FEVER Last Admin: 12/24/17 00:16 Dose: 650 mg Albuterol Sulfate (Ventolin Aerosols) 2.5 mg INHALATION Q6HWA.RT [facility] Last Admin: 01/09/18 06:55 Dose: 2.5 mg Albuterol Sulfate (Ventolin Aerosols) 2.5 mg INHALATION Q2H PRN PRN PRN Reason: SOB &/OR WHEEZING Last Admin: 01/06/18 10:37 Dose: 2.5 mg Aspirin (Aspirin, Baby) 81 mg GT DAILY [facility] Last Admin: 01/08/18 08:44 Dose: 81 mg Atorvastatin Calcium (Lipitor) 40 mg GT QHS [facility] Last Admin: 01/08/18 21:15 Dose: 40 mg Chlorhexidine Gluconate () 15 ml PO BID [facility] Last Admin: 01/08/18 21:13 Dose: 15 ml Chlorhexidine Gluconate () 1 each TOPICAL DAILY [facility] Last Admin: 01/09/18 04:31 Dose: 1 each Clopidogrel Bisulfate (Plavix) 75 mg GT DAILY [facility] Last Admin: 01/08/18 08:46 Dose: 75 mg Dextrose (D50w Syringe) 0 gm IV X1 PRN; Protocol PRN Reason: Hypoglycemia Escitalopram Oxalate (Lexapro) 10 mg PO DAILY [facility] Last Admin: 01/08/18 08:44 Dose: 10 mg Famotidine (Pepcid) 20 mg GT BID [facility] Last Admin: 01/08/18 21:14 Dose: 20 mg Furosemide (Lasix) 80 mg PO TID [facility] Last Admin: 01/09/18 05:34 Dose: 80 mg Glucagon () 1 mg IM .X1 PRN PRN Reason: Hypoglycemia Heparin Sodium (Beef Lung) (Heparin 500 Unit/5 Ml (100/Ml)) 500 unit IV UD PRN PRN Reason: HEPARIN FLUSH Heparin Sodium (Porcine) (Heparin Na) 5,000 unit SC Q8 [facility] Last Admin: 01/09/18 05:27 Dose: 5,000 unit Sodium Chloride () 250 mls @ 15 mls/hr IV .[id number] PRN PRN Reason: SALINE FLUSH Sodium Chloride () 250 mls @ 15 mls/hr IV .[id number] PRN PRN Reason: SALINE FLUSH Last Admin: 12/16/17 21:29 Dose: 15 mls/hr Enteral Nutritional Formula (Vital Af 1.2 Jeremiah Liquid) 1,000 mls @ 65 mls/hr GT .[id number] [facility] Last Admin: 01/09/18 01:30 Dose: 65 mls/hr Sodium Chloride () 1,000 mls @ 0 mls/hr IV .Q0M JUANY Sodium Chloride () 1,000 mls @ 0 mls/hr IV .Q0M [facility] Insulin Glargine (Lantus (Bk)) 35 units SC BID [facility] Last Admin: 01/08/18 21:12 Dose: 35 units Insulin Human Lispro (Humalog Kwikpen ([facility])) 0 unit SC Q6 [facility]; Protocol Last Admin: 01/09/18 06:36 Dose: Not Given Losartan Potassium (Cozaar) 25 mg PO DAILY [facility] Last Admin: 01/08/18 08:44 Dose: 25 mg Magnesium Hydroxide (Milk Of Magnesia) 30 ml PO DAILY PRN PRN PRN Reason: Constipation Nystatin (Nystatin) 500,000 unit PO Q6 [facility] Last Admin: 01/09/18 05:27 Dose: 500,000 unit Oxycodone HCl (Oxyir) 5 mg GT Q6H PRN PRN PRN Reason: SEVERE PAIN (6-10/10) Last Admin: 01/08/18 22:43 Dose: 5 mg Polyethylene Glycol (Miralax) 17 gm GT DAILY PRN PRN PRN Reason: Constipation Potassium Bicarb/Potassium Chloride (Potassium Chl 25 Meq Eff (For Liquid)) 25 meq GT TID [facility] Last Admin: 01/09/18 05:34 Dose: 25 meq Prednisone () 30 mg GT DAILY@0800 [facility] Last Admin: 01/08/18 08:44 Dose: 30 mg Sodium Chloride () 5 - 30 ml IV UD PRN PRN Reason: SALINE FLUSH Last Admin: 01/07/18 05:12 Dose: 20 ml Code Visit Inpatient E&M: [id number] Subs Hosp L3
[2018-01-09] MEDS: Famotidine 20 MG Tablet GT ×2 (08:15→22:16)
[2018-01-09] MEDS: Losartan Potassium 25 MG Tablet PO (08:15)
[2018-01-09] MEDS: Aspirin 81 MG TAB.CHEW GT (08:15)
[2018-01-09] MEDS: predniSONE 10 MG Tablet 30 MG GT (08:15)
[2018-01-09] MEDS: Clopidogrel Bisulfate 75 MG Tablet GT (08:15)
[2018-01-09] MEDS: Escitalopram Oxalate 10 MG Tablet PO (08:15)
--- NOTE | 2018-01-09 09:32 | CASEMGMT ---
Per Dr. Denny, pt no longer needs LTACH placement d/t being on trach collar and can go to SNF. Call to Happy at [facility] and she is going to call and cancel LTACH precert at this time so that SNF precert can be obtained. Referral already sent to Leigh Ann at the [facility] by Guy MAYORGA previously. Maame JACOB CM
[2018-01-09] MEDS: 0.9% NaCl Peripheral Flush Adult/Peds IV (10:00)
--- NOTE | 2018-01-09 10:08 | CASEMGMT ---
MUKESH attempted to call [facility] [place], but no one in admissions was available. Siri, a customer relations representative from [facility] was coming to do an onsite today to see patient. MUKESH did let patient's bedside RN know this information. Nyla FELTON MSW
[2018-01-09] MEDS: Insulin Lispro 100 UNIT/ML INSULN.PEN SC ×2 (11:31→17:16)
[2018-01-09] MEDS: Chlorhexidine 15 ML PO (11:34)
[2018-01-09 12:16] LABS: Bedside Glucose 182 mg/dL (70-110)
--- NOTE | 2018-01-09 12:18 | CASEMGMT ---
Addendum entered by Nyla Stanley 01/09/18 12:55: RN notified of current status. Nyla FELTON SWEDGER Original Note: MUKESH spoke with Janessa at [facility] [place]. MUKESH told her physician feels patient does not need an LTACH and SNF would be fine. MUKESH asked her to start the pre-cert. She said she will do that and Siri will still be here this afternoon to do an onsite visit. MUKESH faxed her updates. MUKESH called patient's POA, [facility] and left him a voice mail requesting a return call to update him on plan. Plan: Await pre-cert for [facility] [place]. Nyla FELTON SWEDGER
[2018-01-09] MEDS: Hydrocortisone 2.5% Crm 1 APPLIC TOPICAL (15:58)
[2018-01-09 17:30] LABS: Bedside Glucose 160 mg/dL (70-110)
[2018-01-09] MEDS: Atorvastatin Calcium 40 MG Tablet GT (22:16)
[2018-01-09] MEDS: Zolpidem Tartrate 5 MG Tablet PO (23:56)
[2018-01-10] VITALS (18 sets, daily range): BP systolic 102–123; BP diastolic 59–76; PULSE 75–113; RESP 12–21; TEMP 36.2–37; O2SAT 91–96
[2018-01-10] MEDS: Heparin Injection (Vial) 5,000 UNIT/ML VIAL 5000 UNIT SC ×3 (05:11→21:56)
[2018-01-10] MEDS: NYSTATIN 500,000 UNIT/5 ML UDC 500000 UNIT PO ×4 (05:13→23:34)
[2018-01-10] MEDS: Furosemide 80 MG Tablet PO ×3 (05:17→21:55)
[2018-01-10 05:36] LABS: Bedside Glucose 147 mg/dL (70-110)
[2018-01-10] MEDS: Albuterol 2.5 MG/3 ML VIAL.NEB. INHALATION ×3 (06:44→18:59)
--- NOTE | 2018-01-10 06:53 | PCM.PROGNOTE ---
Patient Problems: Active and Suspected Problems (Last Updated 12/25/17 @ 08:22 by Juan Manuel Subramanian DO) Aspiration pneumonia due to food (regurgitated) (Acute) Subjective: The patient was seen and examined at the bedside this morning. Events from the last 24 hours have been reviewed. The patient is currently afebrile, hemodynamically stable and maintaining appropriate oxygen saturations on BiPAP currently. The patient did well all day yesterday on trach collar and was subsequently transition to BiPAP 12/6 centimeters of water overnight. The patient was documented to be overall net +1.3 L yesterday. He is now overall net -4.3 L for the admission. The patient is currently awaiting precertification for disposition to care home facility. Objective: The patient's most recent lab work, culture data and imaging studies have all been personally reviewed. Respiratory viral panel was negative. Surface echocardiogram revealed normal LV size and function with an ejection fraction of 60%. Sputum culture dated December 13 revealed evidence of Streptococcus pneumoniae. Repeat sputum culture dated December 16 was positive for Klebsiella. CTA chest dated December 26 revealed no evidence for pulmonary embolism, but did demonstrate bilateral lower lobe infiltrates. - Physical Exam General: Alert, Cooperative, No apparent distress, - - Currently tolerating trach mask. Morbidly obese. HEENT: Atraumatic, PERRLA, Normocephalic Oral: No Gingival or Mucosal Lesions/ Ulcerations Neck: Supple, No Nodes, Trachea Midline, - - Trach site is C/D/I Lungs: No rhonchi, No wheeze, No rales, Diminished Cardiovascular: Regular rate, Regular Rhythm, Normal S1, Normal S2, No murmurs Abdomen: Bowel Sounds Present, Soft, Non Tender, Obese, - - Tolerating tube feeds. PEG site is intact. Extremities: No clubbing, No cyanosis, Edema - Trace Skin: - - No significant change from previous. Musculoskeletal: No Tenderness to Palpation of Joints or Extremities, No Muscle Wasting Lymphatic: No Cervical, Supraclavicular, or Inguinal Adenopathy Neurological: Cranial nerves II-XII grossly intact, Neuro grossly intact Psych/Mental Status: Normal Affect, Appropriate Vital Signs Temp Pulse Resp BP Pulse Ox 36.8 C 80 16 123/76 H 96 01/10/18 04:30 01/10/18 04:40 01/10/18 04:40 01/10/18 04:30 01/10/18 04:40 Oxygen Flow Rate (L/min) 12 Oxygen Delivery Method Bi-pap Weight: 292 lb 1.8 oz Body Mass Index (BMI) 45.8 Finger Stick Blood Glucose 193 Intake and Output for Last 24 Hours 01/08/18 01/09/18 01/10/18 23:59 23:59 23:59 Intake Total 1467 / 1467 2999 / 2999 425 / 425 Output Total 1700 / 1700 1700 / 1700 450 / 450 Balance -233 / -233 1299 / 1299 -25 / -25 POC Glucose 01/10/18 01/09/18 01/09/18 05:10 17:13 11:29 POC Glucose 147 H 160 H 182 H Labs (Last 48 Hours) 01/07/18 01/08/18 01/08/18 16:23 11:40 16:29 WBC RBC Hgb Hct MCV MCH MCHC RDW RDW Differential Plt Count MPV Immature Gran % (Auto) Neut % (Auto) Lymph % (Auto) [place] % (Auto) Eos % (Auto) Baso % (Auto) Absolute Neuts (auto) Absolute Lymphs (auto) Total Counted Sodium Potassium Chloride Carbon Dioxide Anion Gap BUN Creatinine Estim Creat Clear Calc Est GFR (MDRD) Af Amer Est GFR (MDRD) Non-Af BUN/Creatinine Ratio Glucose Calcium POC Glucose 227 H 144 H 206 H 01/08/18 01/09/18 01/09/18 21:10 00:00 04:25 WBC 8.4 RBC 4.55 L Hgb 12.4 L Hct 39.8 L MCV 87.5 MCH 27.3 MCHC 31.2 L RDW 16.3 H RDW Differential 51.5 H Plt Count 134 L MPV 10.9 Immature Gran % (Auto) 0.600 Neut % (Auto) 69.1 Lymph % (Auto) 25.3 [place] % (Auto) 3.9 Eos % (Auto) 1.0 Baso % (Auto) 0.1 Absolute Neuts (auto) 5.8 Absolute Lymphs (auto) 2.13 Total Counted Not Reportable Sodium Potassium Chloride Carbon Dioxide Anion Gap BUN Creatinine Estim Creat Clear Calc Est GFR (MDRD) Af Amer Est GFR (MDRD) Non-Af BUN/Creatinine Ratio Glucose Calcium POC Glucose 142 H 144 H 01/09/18 01/09/18 01/09/18 04:25 06:24 11:29 WBC RBC Hgb Hct MCV MCH MCHC RDW RDW Differential Plt Count MPV Immature Gran % (Auto) Neut % (Auto) Lymph % (Auto) [place] % (Auto) Eos % (Auto) Baso % (Auto) Absolute Neuts (auto) Absolute Lymphs (auto) Total Counted Sodium 144 Potassium 3.6 Chloride 101 Carbon Dioxide 31.0 Anion Gap 12 BUN 32 H Creatinine 0.74 Estim Creat Clear Calc 102.70 Est GFR (MDRD) Af Amer 139 Est GFR (MDRD) Non-Af 115 BUN/Creatinine Ratio 43.2 H Glucose 147 H Calcium 9.2 POC Glucose 143 H 182 H 01/09/18 01/10/18 17:13 05:10 WBC RBC Hgb Hct MCV MCH MCHC RDW RDW Differential Plt Count MPV Immature Gran % (Auto) Neut % (Auto) Lymph % (Auto) [place] % (Auto) Eos % (Auto) Baso % (Auto) Absolute Neuts (auto) Absolute Lymphs (auto) Total Counted Sodium Potassium Chloride Carbon Dioxide Anion Gap BUN Creatinine Estim Creat Clear Calc Est GFR (MDRD) Af Amer Est GFR (MDRD) Non-Af BUN/Creatinine Ratio Glucose Calcium POC Glucose 160 H 147 H Clinical Impression(s) from Imaging Studies Brain CT 12/12/17 07:34 IMPRESSION: No CT evidence of acute intracranial hemorrhage. Electronically Signed: Katya Wright MD at 8:54 EST , Service support , Chest X-Ray 12/12/17 07:40 IMPRESSION: Cardiomegaly and mild pulmonary congestion. Electronically Signed: Katya Wright MD at 8:02 EST , Service support , Chest X-Ray 12/15/17 06:34 IMPRESSION: All the support tubes are in good position. Residual increased markings in both lungs as described although there has been improvement as compared to prior study. Electronically Signed: Akhil Izquierdo MD at 11:07 EST Tel [phone], Service support , Chest X-Ray 12/16/17 12:08 IMPRESSION: Stable examination. Electronically Signed: Akhil Izquierdo MD at 12:39 EST Tel [phone], Service support , Chest X-Ray 12/19/17 07:17 IMPRESSION: Residual increased markings at the left lung base suggestive of atelectasis and/or infiltrate. The remainder of the examination is unremarkable. Electronically Signed: Akhil Izquierdo MD at 8:45 EST Tel [phone], Service support , Chest X-Ray 12/20/17 06:05 IMPRESSION: Stable position of the endotracheal tube and enterogastric tube. Progressive left lower lobe atelectasis and/or infiltrate. Electronically Signed: Akhil Izquierdo MD at 9:15 EST Tel [phone], Service support , Chest X-Ray 12/21/17 14:25 IMPRESSION: 1. Endotracheal tube tip is 5.5 cm above the byron. 2. Suboptimal ventilatory effort with stable platelike atelectasis at the left base and mild atelectasis on the right, as noted. Electronically Signed: Brayan Pretty MD at 15:36 EST , Service support , Chest X-Ray 12/21/17 15:00 IMPRESSION: Limited examination. The tip of the orogastric tube appears to be in the distal portion of the esophagus. Electronically Signed: Akhil Izquierdo MD at 15:49 EST Tel [phone], Service support , Chest X-Ray 12/22/17 06:00 IMPRESSION: Increased markings at the lung bases more prominent at the left lung base with blunting of left costophrenic angle. Mild increased markings in the right upper lobe. Follow-up is recommended. The tip of the endotracheal tube is at 5 cm proximal to the byron. Electronically Signed: Akhil Izquierdo MD at 9:46 EST Tel [phone], Service support , Chest X-Ray 12/22/17 11:01 IMPRESSION: 1. Nasogastric tube passes beneath the diaphragm, its tip outside the [id number]. 2. Endotracheal tube unchanged. 3. Improved atelectasis in the right base. Atelectasis on the left is unchanged. 4. Borderline cardiac enlargement. No CHF. Electronically Signed: Brayan Pretty MD at 12:14 EST , Service support , Chest X-Ray 12/22/17 18:29 IMPRESSION: Endotracheal tube ends 4 cm above the byron. Enteric tube is well below the gastroesophageal junction. Stable lung findings with 1 broad platelike area of atelectasis or infiltrate across the left lung base. Electronically Signed: Janessa Combs MD at 22:21 EST , Service support , KUB X-Ray 12/22/17 19:00 IMPRESSION: Orogastric tube placement with tip in gastric body Electronically Signed: Filemon Orona MD at 23:43 EST , Service support , Chest X-Ray 12/23/17 04:27 IMPRESSION: 1. Bilateral basilar airspace consolidation and atelectasis. 2. Right upper lobe subsegmental atelectasis. Electronically Signed: Katya Wright MD at 8:46 EST , Service support , Chest X-Ray 12/26/17 14:30 IMPRESSION: The tip of the tracheostomy is at 5.2 cm proximal to the byron. Alignment left basilar atelectasis with blunting of left costophrenic angle. Electronically Signed: Akhil Izquierdo MD at 15:10 EST Tel [phone], Service support , Chest CTA 12/26/17 15:01 IMPRESSION: Dense bilateral lower lobe infiltrates.. No evidence for pulmonary embolus ASHD. No evidence for aortic aneurysm Electronically Signed: Filemon Orona MD at 16:35 EST , Service support , Chest X-Ray 12/30/17 11:06 IMPRESSION: The tracheostomy tube appears to be well positioned. No visible pneumothorax. Electronically Signed: Julio Navas at 11:59 EST Tel , Service support , Chest X-Ray 01/01/18 08:45 IMPRESSION: No acute thoracic pathology. Electronically Signed: Karri Blas, at 9:19 EST Tel , Service support , KUB X-Ray 01/01/18 08:56 IMPRESSION: No bowel obstruction. Electronically Signed: Karri Blas, at 9:20 EST Tel , Service support , Medical Necessity - Tobacco Use Smoking Status: Current every day smoker Assessment/Plan All Active Problems (Last Updated 12/25/17 @ 08:22 by Juan Manuel Subramanian DO) Aspiration pneumonia due to food (regurgitated) (Acute) Heart failure with preserved ejection fraction (Acute) GALILEA (acute kidney injury) (Acute) Klebsiella pneumonia (Acute) Acute respiratory failure with hypoxia and hypercapnia (Acute) Pneumococcal pneumonia (Acute) Metabolic encephalopathy (Resolved) Chest pain (Resolved) Respiratory failure, acute (Resolved) RECOMMENDATIONS: 1. Continue trach mask support during the day. Wean FiO2 to maintain oxygen saturations 88-92%. 2. Continue BiPAP 12/6 nightly. 3. Continue aggressive pulmonary toileting. 4. Continue bronchodilators. 5. Continue tube feeds and free water flushes. 6. Wean prednisone as ordered 7. Gentle diuresis per cardiology recommendations. 8. Recommend continued outpatient pulmonary follow-up as scheduled. IMPRESSIONS: 1. Acute on chronic combined respiratory failure Likely secondary to decompensated heart failure in the setting of medical noncompliance, with superimposed bronchospastic airway disease, ongoing tobacco dependence and aspiration pneumonia all contributing. The patient's hospital course to date has been complicated by 2 independent self extubations by the patient leading to aspiration of gastric contents. The patient has completed an antibiotic course accordingly. He has already undergone PEG tube placement. A follow-up CTA chest revealed no evidence for pulmonary embolism. Would plan to keep the patient's oxygen saturations 88-92%, to prevent paradoxical CO2 retention. The patient underwent successful tracheostomy placement on December 30. He has been able to tolerate trach mask trials and will be continued on such today. The patient will be placed on BiPAP 12/6 nightly. Tube feeds will be continued accordingly. 2. Metabolic encephalopathy Resolved. Likely secondary to acute on chronic CO2 retention. 3. Decompensated heart failure/history of ischemic cardiomyopathy The patient's weight is significantly elevated when compared to that documented from November. The patient has been diuresed a great amount over his hospitalization. The patient did undergo a cardiac catheterization on December 28, which revealed patent stents. Continue diuretics as tolerated. 4. Diabetes mellitus Continue Accu-Cheks and sliding scale insulin coverage. Continue tube feeds as tolerated. 5. Obstructive sleep apnea The patient has a history of outpatient noncompliance with the use of nocturnal Pap therapy. The patient will be placed on BiPAP 12/6 nightly. 6. Ongoing tobacco dependence/super morbid obesity/history of medical noncompliance/hypertension Complicates care, management, recovery and prognosis. Nicotine replacement therapy can be utilized while admitted to the hospital. This note was generated with [employer] software. It may contain incorrect words, spelling, and punctuation that were not noted in checking the note before signing. Code Visit Inpatient E&M: 32175 Subs Hosp L2
--- NOTE | 2018-01-10 06:56 | PN_ITS ---
Patient Problems: Active and Suspected Problems (Last Updated 12/25/17 @ 08:22 by Juan Manuel Subramanian DO) Aspiration pneumonia due to food (regurgitated) (Acute) Subjective: The patient was seen and examined at the bedside this morning. Events from the last 24 hours have been reviewed. The patient is currently afebrile, hemodynamically stable and maintaining appropriate oxygen saturations on BiPAP currently. The patient did well all day yesterday on trach collar and was subsequently transition to BiPAP 12/6 centimeters of water overnight. The patient was documented to be overall net +1.3 L yesterday. He is now overall net -4.3 L for the admission. The patient is currently awaiting precertification for disposition to intermediate facility. Objective: The patient's most recent lab work, culture data and imaging studies have all been personally reviewed. Respiratory viral panel was negative. Surface echocardiogram revealed normal LV size and function with an ejection fraction of 60%. Sputum culture dated December 13 revealed evidence of Streptococcus pneumoniae. Repeat sputum culture dated December 16 was positive for Klebsiella. CTA chest dated December 26 revealed no evidence for pulmonary embolism, but did demonstrate bilateral lower lobe infiltrates. - Physical Exam General: Alert, Cooperative, No apparent distress, - - Currently tolerating trach mask. Morbidly obese. HEENT: Atraumatic, PERRLA, Normocephalic Oral: No Gingival or Mucosal Lesions/ Ulcerations Neck: Supple, No Nodes, Trachea Midline, - - Trach site is C/D/I Lungs: No rhonchi, No wheeze, No rales, Diminished Cardiovascular: Regular rate, Regular Rhythm, Normal S1, Normal S2, No murmurs Abdomen: Bowel Sounds Present, Soft, Non Tender, Obese, - - Tolerating tube feeds. PEG site is intact. Extremities: No clubbing, No cyanosis, Edema - Trace Skin: - - No significant change from previous. Musculoskeletal: No Tenderness to Palpation of Joints or Extremities, No Muscle Wasting Lymphatic: No Cervical, Supraclavicular, or Inguinal Adenopathy Neurological: Cranial nerves II-XII grossly intact, Neuro grossly intact Psych/Mental Status: Normal Affect, Appropriate Vital Signs Temp Pulse Resp BP Pulse Ox 36.8 C 80 16 123/76 H 96 01/10/18 04:30 01/10/18 04:40 01/10/18 04:40 01/10/18 04:30 01/10/18 04:40 Oxygen Flow Rate (L/min) 12 Oxygen Delivery Method Bi-pap Weight: 292 lb 1.8 oz Body Mass Index (BMI) 45.8 Finger Stick Blood Glucose 193 Intake and Output for Last 24 Hours 01/08/18 01/09/18 01/10/18 23:59 23:59 23:59 Intake Total 1467 / 1467 2999 / 2999 425 / 425 Output Total 1700 / 1700 1700 / 1700 450 / 450 Balance -233 / -233 1299 / 1299 -25 / -25 POC Glucose 01/10/18 01/09/18 01/09/18 05:10 17:13 11:29 POC Glucose 147 H 160 H 182 H Labs (Last 48 Hours) 01/07/18 01/08/18 01/08/18 16:23 11:40 16:29 WBC RBC Hgb Hct MCV MCH MCHC RDW RDW Differential Plt Count MPV Immature Gran % (Auto) Neut % (Auto) Lymph % (Auto) [place] % (Auto) Eos % (Auto) Baso % (Auto) Absolute Neuts (auto) Absolute Lymphs (auto) Total Counted Sodium Potassium Chloride Carbon Dioxide Anion Gap BUN Creatinine Estim Creat Clear Calc Est GFR (MDRD) Af Amer Est GFR (MDRD) Non-Af BUN/Creatinine Ratio Glucose Calcium POC Glucose 227 H 144 H 206 H 01/08/18 01/09/18 01/09/18 21:10 00:00 04:25 WBC 8.4 RBC 4.55 L Hgb 12.4 L Hct 39.8 L MCV 87.5 MCH 27.3 MCHC 31.2 L RDW 16.3 H RDW Differential 51.5 H Plt Count 134 L MPV 10.9 Immature Gran % (Auto) 0.600 Neut % (Auto) 69.1 Lymph % (Auto) 25.3 [place] % (Auto) 3.9 Eos % (Auto) 1.0 Baso % (Auto) 0.1 Absolute Neuts (auto) 5.8 Absolute Lymphs (auto) 2.13 Total Counted Not Reportable Sodium Potassium Chloride Carbon Dioxide Anion Gap BUN Creatinine Estim Creat Clear Calc Est GFR (MDRD) Af Amer Est GFR (MDRD) Non-Af BUN/Creatinine Ratio Glucose Calcium POC Glucose 142 H 144 H 01/09/18 01/09/18 01/09/18 04:25 06:24 11:29 WBC RBC Hgb Hct MCV MCH MCHC RDW RDW Differential Plt Count MPV Immature Gran % (Auto) Neut % (Auto) Lymph % (Auto) [place] % (Auto) Eos % (Auto) Baso % (Auto) Absolute Neuts (auto) Absolute Lymphs (auto) Total Counted Sodium 144 Potassium 3.6 Chloride 101 Carbon Dioxide 31.0 Anion Gap 12 BUN 32 H Creatinine 0.74 Estim Creat Clear Calc 102.70 Est GFR (MDRD) Af Amer 139 Est GFR (MDRD) Non-Af 115 BUN/Creatinine Ratio 43.2 H Glucose 147 H Calcium 9.2 POC Glucose 143 H 182 H 01/09/18 01/10/18 17:13 05:10 WBC RBC Hgb Hct MCV MCH MCHC RDW RDW Differential Plt Count MPV Immature Gran % (Auto) Neut % (Auto) Lymph % (Auto) [place] % (Auto) Eos % (Auto) Baso % (Auto) Absolute Neuts (auto) Absolute Lymphs (auto) Total Counted Sodium Potassium Chloride Carbon Dioxide Anion Gap BUN Creatinine Estim Creat Clear Calc Est GFR (MDRD) Af Amer Est GFR (MDRD) Non-Af BUN/Creatinine Ratio Glucose Calcium POC Glucose 160 H 147 H Clinical Impression(s) from Imaging Studies Brain CT 12/12/17 07:34 IMPRESSION: No CT evidence of acute intracranial hemorrhage. Electronically Signed: Katya Wright MD at 8:54 EST , Service support , Chest X-Ray 12/12/17 07:40 IMPRESSION: Cardiomegaly and mild pulmonary congestion. Electronically Signed: Katya Wright MD at 8:02 EST , Service support , Chest X-Ray 12/15/17 06:34 IMPRESSION: All the support tubes are in good position. Residual increased markings in both lungs as described although there has been improvement as compared to prior study. Electronically Signed: Akhil Izquierdo MD at 11:07 EST Tel [phone], Service support , Chest X-Ray 12/16/17 12:08 IMPRESSION: Stable examination. Electronically Signed: Akhil Izquierdo MD at 12:39 EST Tel [phone], Service support , Chest X-Ray 12/19/17 07:17 IMPRESSION: Residual increased markings at the left lung base suggestive of atelectasis and/or infiltrate. The remainder of the examination is unremarkable. Electronically Signed: Akhil Izquierdo MD at 8:45 EST Tel [phone], Service support , Chest X-Ray 12/20/17 06:05 IMPRESSION: Stable position of the endotracheal tube and enterogastric tube. Progressive left lower lobe atelectasis and/or infiltrate. Electronically Signed: Akhil Izquierdo MD at 9:15 EST Tel [phone], Service support , Chest X-Ray 12/21/17 14:25 IMPRESSION: 1. Endotracheal tube tip is 5.5 cm above the byron. 2. Suboptimal ventilatory effort with stable platelike atelectasis at the left base and mild atelectasis on the right, as noted. Electronically Signed: Brayan Pretty MD at 15:36 EST , Service support , Chest X-Ray 12/21/17 15:00 IMPRESSION: Limited examination. The tip of the orogastric tube appears to be in the distal portion of the esophagus. Electronically Signed: Akhil Izquierdo MD at 15:49 EST Tel [phone], Service support , Chest X-Ray 12/22/17 06:00 IMPRESSION: Increased markings at the lung bases more prominent at the left lung base with blunting of left costophrenic angle. Mild increased markings in the right upper lobe. Follow-up is recommended. The tip of the endotracheal tube is at 5 cm proximal to the byron. Electronically Signed: Akhil Izquierdo MD at 9:46 EST Tel [phone], Service support , Chest X-Ray 12/22/17 11:01 IMPRESSION: 1. Nasogastric tube passes beneath the diaphragm, its tip outside the [id number]. 2. Endotracheal tube unchanged. 3. Improved atelectasis in the right base. Atelectasis on the left is unchanged. 4. Borderline cardiac enlargement. No CHF. Electronically Signed: Brayan Pretty MD at 12:14 EST , Service support , Chest X-Ray 12/22/17 18:29 IMPRESSION: Endotracheal tube ends 4 cm above the byron. Enteric tube is well below the gastroesophageal junction. Stable lung findings with 1 broad platelike area of atelectasis or infiltrate across the left lung base. Electronically Signed: Janessa Combs MD at 22:21 EST , Service support , KUB X-Ray 12/22/17 19:00 IMPRESSION: Orogastric tube placement with tip in gastric body Electronically Signed: Filemon Orona MD at 23:43 EST , Service support , Chest X-Ray 12/23/17 04:27 IMPRESSION: 1. Bilateral basilar airspace consolidation and atelectasis. 2. Right upper lobe subsegmental atelectasis. Electronically Signed: Katya Wright MD at 8:46 EST , Service support , Chest X-Ray 12/26/17 14:30 IMPRESSION: The tip of the tracheostomy is at 5.2 cm proximal to the byron. Alignment left basilar atelectasis with blunting of left costophrenic angle. Electronically Signed: Akhil Izquierdo MD at 15:10 EST Tel [phone], Service support , Chest CTA 12/26/17 15:01 IMPRESSION: Dense bilateral lower lobe infiltrates.. No evidence for pulmonary embolus ASHD. No evidence for aortic aneurysm Electronically Signed: Filemon Orona MD at 16:35 EST , Service support , Chest X-Ray 12/30/17 11:06 IMPRESSION: The tracheostomy tube appears to be well positioned. No visible pneumothorax. Electronically Signed: Julio Navas at 11:59 EST Tel , Service support , Chest X-Ray 01/01/18 08:45 IMPRESSION: No acute thoracic pathology. Electronically Signed: Karri Blas, at 9:19 EST Tel , Service support , KUB X-Ray 01/01/18 08:56 IMPRESSION: No bowel obstruction. Electronically Signed: Karri Blas, at 9:20 EST Tel , Service support , Medical Necessity - Tobacco Use Smoking Status: Current every day smoker Assessment/Plan All Active Problems (Last Updated 12/25/17 @ 08:22 by Juan Manuel Subramanian DO) Aspiration pneumonia due to food (regurgitated) (Acute) Heart failure with preserved ejection fraction (Acute) GALILEA (acute kidney injury) (Acute) Klebsiella pneumonia (Acute) Acute respiratory failure with hypoxia and hypercapnia (Acute) Pneumococcal pneumonia (Acute) Metabolic encephalopathy (Resolved) Chest pain (Resolved) Respiratory failure, acute (Resolved) RECOMMENDATIONS: 1. Continue trach mask support during the day. Wean FiO2 to maintain oxygen saturations 88-92%. 2. Continue BiPAP 12/6 nightly. 3. Continue aggressive pulmonary toileting. 4. Continue bronchodilators. 5. Continue tube feeds and free water flushes. 6. Wean prednisone as ordered 7. Gentle diuresis per cardiology recommendations. 8. Recommend continued outpatient pulmonary follow-up as scheduled. IMPRESSIONS: 1. Acute on chronic combined respiratory failure Likely secondary to decompensated heart failure in the setting of medical non compliance, with superimposed bronchospastic airway disease, ongoing tobacco dependence and aspiration pneumonia all contributing. The patient's hospital course to date has been complicated by 2 independent self extubations by the patient leading to aspiration of gastric contents. The patient has completed an antibiotic course accordingly. He has already undergone PEG tube placement. A follow-up CTA chest revealed no evidence for pulmonary embolism. Would plan to keep the patient's oxygen saturations 88-92%, to prevent paradoxical CO2 retention. The patient underwent successful tracheostomy placement on December 30. He has been able to tolerate trach mask trials and will be continued on such today. The patient will be placed on BiPAP 12/6 nightly. Tube feeds will be continued accordingly. 2. Metabolic encephalopathy Resolved. Likely secondary to acute on chronic CO2 retention. 3. Decompensated heart failure/history of ischemic cardiomyopathy The patient's weight is significantly elevated when compared to that documented from November. The patient has been diuresed a great amount over his hospitalization. The patient did undergo a cardiac catheterization on December 28, which revealed patent stents. Continue diuretics as tolerated. 4. Diabetes mellitus Continue Accu-Cheks and sliding scale insulin coverage. Continue tube feeds as tolerated. 5. Obstructive sleep apnea The patient has a history of outpatient noncompliance with the use of nocturnal Pap therapy. The patient will be placed on BiPAP 12/6 nightly. 6. Ongoing tobacco dependence/super morbid obesity/history of medical noncompliance/hypertension Complicates care, management, recovery and prognosis. Nicotine replacement therapy can be utilized while admitted to the hospital. This note was generated with [employer] software. It may contain incorrect words, spelling, and punctuation that were not noted in checking the note before signing. Code Visit Inpatient E&M: 64233 Subs Hosp L2
[2018-01-10] MEDS: predniSONE 10 MG Tablet 30 MG GT (09:45)
[2018-01-10] MEDS: Escitalopram Oxalate 10 MG Tablet PO (09:45)
[2018-01-10] MEDS: Famotidine 20 MG Tablet GT ×2 (09:45→21:55)
[2018-01-10] MEDS: Losartan Potassium 25 MG Tablet PO (09:45)
[2018-01-10] MEDS: Aspirin 81 MG TAB.CHEW GT (09:45)
[2018-01-10] MEDS: Clopidogrel Bisulfate 75 MG Tablet GT (09:46)
--- NOTE | 2018-01-10 09:51 | PN_ITS ---
Patient Problems: Active and Suspected Problems (Last Updated 12/25/17 @ 08:22 by Juan Manuel Subramanian DO) Aspiration pneumonia due to food (regurgitated) (Acute) Subjective: Patient seen much more awake compared to the day prior. Still awaiting insurance precertification prior to transfer to a assisted facility Objective: GENERAL: cooperative HEENT: Atraumatic; EYES; Anicteric, Normal Conjunctiva NECK; Trach collar in place. RESPIRATORY: Diminished to auscultation bilaterally, CARDIOVASCULAR: Regular S1 S2, GI: soft, non-tender, normoactive bowel sounds, : No Renal angle tenderness; EXTREMITIES: No clubbing, no cyanosis. MUSCULOSKELETAL: No Joint Tenderness; NEURO: Awake; no lateralizing signs. SKIN: Stasis dermatitis both lower extremities PSYCH; flat affect Vitals/I&O's: Vital Signs Temp Pulse Resp BP Pulse Ox 98.6 F 85 18 106/74 91 01/10/18 09:40 01/10/18 09:40 01/10/18 09:40 01/10/18 09:40 01/10/18 09:40 Oxygen Flow Rate (L/min) 12 Oxygen Delivery Method Trach Collar Weight: 132.5 kg Body Mass Index (BMI) 45.8 Finger Stick Blood Glucose 193 Intake and Output for Last 24 Hours 01/08/18 01/09/18 01/10/18 23:59 23:59 23:59 Intake Total 1467 / 1467 2999 / 2999 425 / 425 Output Total 1700 / 1700 1700 / 1700 450 / 450 Balance -233 / -233 1299 / 1299 -25 / -25 Laboratory Results 01/09/18 11:29: POC Glucose 182 H 01/09/18 17:13: POC Glucose 160 H 01/10/18 05:10: POC Glucose 147 H Current Medications Acetaminophen (Tylenol Liquid) 650 mg GT Q6H PRN PRN PRN Reason: FEVER Last Admin: 12/24/17 00:16 Dose: 650 mg Albuterol Sulfate (Ventolin Aerosols) 2.5 mg INHALATION Q6HWA.RT JUANY Last Admin: 01/10/18 06:44 Dose: 2.5 mg Albuterol Sulfate (Ventolin Aerosols) 2.5 mg INHALATION Q2H PRN PRN PRN Reason: SOB &/OR WHEEZING Last Admin: 01/06/18 10:37 Dose: 2.5 mg Aspirin (Aspirin, Baby) 81 mg GT DAILY [facility] Last Admin: 01/10/18 09:45 Dose: 81 mg Atorvastatin Calcium (Lipitor) 40 mg GT QHS [facility] Last Admin: 01/09/18 22:16 Dose: 40 mg Chlorhexidine Gluconate () 15 ml PO BID [facility] Last Admin: 01/10/18 09:42 Dose: Not Given Chlorhexidine Gluconate () 1 each TOPICAL DAILY [facility] Last Admin: 01/10/18 09:42 Dose: Not Given Clopidogrel Bisulfate (Plavix) 75 mg GT DAILY [facility] Last Admin: 01/10/18 09:46 Dose: 75 mg Dextrose (D50w Syringe) 0 gm IV X1 PRN; Protocol PRN Reason: Hypoglycemia Escitalopram Oxalate (Lexapro) 10 mg PO DAILY [facility] Last Admin: 01/10/18 09:45 Dose: 10 mg Famotidine (Pepcid) 20 mg GT BID [facility] Last Admin: 01/10/18 09:45 Dose: 20 mg Furosemide (Lasix) 80 mg PO TID [facility] Last Admin: 01/10/18 05:17 Dose: 80 mg Glucagon () 1 mg IM .X1 PRN PRN Reason: Hypoglycemia Heparin Sodium (Beef Lung) (Heparin 500 Unit/5 Ml (100/Ml)) 500 unit IV UD PRN PRN Reason: HEPARIN FLUSH Heparin Sodium (Porcine) (Heparin Na) 5,000 unit SC Q8 [facility] Last Admin: 01/10/18 05:11 Dose: 5,000 unit Hydrocortisone (Hytone) 1 applic TOPICAL TID PRN PRN; Protocol PRN Reason: PAIN Last Admin: 01/09/18 15:58 Dose: 1 applic Sodium Chloride () 250 mls @ 15 mls/hr IV .[id number] PRN PRN Reason: SALINE FLUSH Sodium Chloride () 250 mls @ 15 mls/hr IV .[id number] PRN PRN Reason: SALINE FLUSH Last Admin: 12/16/17 21:29 Dose: 15 mls/hr Enteral Nutritional Formula (Vital Af 1.2 Jeremiah Liquid) 1,000 mls @ 65 mls/hr GT .[id number] [facility] Last Admin: 01/09/18 22:17 Dose: 65 mls/hr Sodium Chloride () 1,000 mls @ 0 mls/hr IV .Q0M JUANY Sodium Chloride () 1,000 mls @ 0 mls/hr IV .Q0M JUANY Insulin Glargine (Lantus (Bkc)) 35 units SC [facility] Last Admin: 01/10/18 05:12 Dose: 35 units Insulin Human Lispro (Humalog Kwikpen (Bkc)) 0 unit SC ,,18 [facility]; Protocol Last Admin: 01/10/18 05:11 Dose: Not Given Losartan Potassium (Cozaar) 25 mg PO DAILY [facility] Last Admin: 01/10/18 09:45 Dose: 25 mg Magnesium Hydroxide (Milk Of Magnesia) 30 ml PO DAILY PRN PRN PRN Reason: Constipation Nystatin (Nystatin) 500,000 unit PO Q6 [facility] Last Admin: 01/10/18 05:13 Dose: 500,000 unit Oxycodone HCl (Oxyir) 5 mg GT Q6H PRN PRN PRN Reason: SEVERE PAIN (6-10/10) Last Admin: 01/08/18 22:43 Dose: 5 mg Polyethylene Glycol (Miralax) 17 gm GT DAILY PRN PRN PRN Reason: Constipation Potassium Bicarb/Potassium Chloride (Potassium Chl 25 Meq Eff (For Liquid)) 25 meq GT TID [facility] Last Admin: 01/10/18 05:13 Dose: 25 meq Prednisone () 30 mg GT DAILY@0800 [facility] Last Admin: 01/10/18 09:45 Dose: 30 mg Sodium Chloride () 5 - 30 ml IV UD PRN PRN Reason: SALINE FLUSH Last Admin: 01/09/18 10:00 Dose: 20 ml Zolpidem Tartrate (Ambien (Generic)) 5 mg PO QHS PRN PRN PRN Reason: INSOMNIA Last Admin: 01/09/18 23:56 Dose: 5 mg Medical Necessity - Tobacco Use Smoking Status: Current every day smoker Assessment/Plan All Active Problems (Last Updated 12/25/17 @ 08:22 by Juan Manuel Subramanian DO) Aspiration pneumonia due to food (regurgitated) (Acute) Heart failure with preserved ejection fraction (Acute) GALILEA (acute kidney injury) (Acute) Klebsiella pneumonia (Acute) Acute respiratory failure with hypoxia and hypercapnia (Acute) Pneumococcal pneumonia (Acute) Metabolic encephalopathy (Resolved) Chest pain (Resolved) Respiratory failure, acute (Resolved) Patient is a 58-year-old gentleman who is been on admission for almost a month admitted with acute hypoxic respiratory failure. Patient has had a complicated stay. 1. Acute on chronic hypoxic and hypercapnic respiratory failure due to multiple medical comorbidities including CHF exacerbation, aspiration pneumonia, obesity hypoventilation syndrome. Patient had a prolonged stay on the vent consultation was placed to ENT patient had trach placed on 12/30/2017. Patient was transferred from intensive care unit to the progressive care unit on 01/09/2018 2. Acute systolic heart failure with an ejection fraction of 25% patient is on Lasix; appears well compensated 3. Hypertension-blood pressure controlled, home medications continued with dose adjustment as needed 4. Diabetes mellitus type II: patient's oral hypoglycemics held. Placed on long acting insulin, Accu-Cheks a.c. and at bedtime and covered with sliding scale insulin 5. Hypokalemia corrected per protocol 6. Paroxysmal atrial fibrillation patient currently in sinus rhythm has been seen in consultation by cardiology 7. Acute metabolic encephalopathy; resolved 8. Coronary artery disease with previous stent placement patient is on dual antiplatelet therapy with aspirin and Plavix in addition to losartan and atorvastatin 9. Morbid obesity with BMI of 44 10. Obstructive sleep apnea 11. Obesity hypoventilation syndrome 12. Physical deconditioning 13. DVT prophylaxis SC heparin Active Medications Acetaminophen (Tylenol Liquid) 650 mg GT Q6H PRN PRN PRN Reason: FEVER Last Admin: 12/24/17 00:16 Dose: 650 mg Albuterol Sulfate (Ventolin Aerosols) 2.5 mg INHALATION Q6HWA.RT [facility] Last Admin: 01/09/18 06:55 Dose: 2.5 mg Albuterol Sulfate (Ventolin Aerosols) 2.5 mg INHALATION Q2H PRN PRN PRN Reason: SOB &/OR WHEEZING Last Admin: 01/06/18 10:37 Dose: 2.5 mg Aspirin (Aspirin, Baby) 81 mg GT DAILY [facility] Last Admin: 01/08/18 08:44 Dose: 81 mg Atorvastatin Calcium (Lipitor) 40 mg GT QHS [facility] Last Admin: 01/08/18 21:15 Dose: 40 mg Chlorhexidine Gluconate () 15 ml PO BID [facility] Last Admin: 01/08/18 21:13 Dose: 15 ml Chlorhexidine Gluconate () 1 each TOPICAL DAILY [facility] Last Admin: 01/09/18 04:31 Dose: 1 each Clopidogrel Bisulfate (Plavix) 75 mg GT DAILY [facility] Last Admin: 01/08/18 08:46 Dose: 75 mg Dextrose (D50w Syringe) 0 gm IV X1 PRN; Protocol PRN Reason: Hypoglycemia Escitalopram Oxalate (Lexapro) 10 mg PO DAILY [facility] Last Admin: 01/08/18 08:44 Dose: 10 mg Famotidine (Pepcid) 20 mg GT BID [facility] Last Admin: 01/08/18 21:14 Dose: 20 mg Furosemide (Lasix) 80 mg PO TID [facility] Last Admin: 01/09/18 05:34 Dose: 80 mg Glucagon () 1 mg IM .X1 PRN PRN Reason: Hypoglycemia Heparin Sodium (Beef Lung) (Heparin 500 Unit/5 Ml (100/Ml)) 500 unit IV UD PRN PRN Reason: HEPARIN FLUSH Heparin Sodium (Porcine) (Heparin Na) 5,000 unit SC Q8 [facility] Last Admin: 01/09/18 05:27 Dose: 5,000 unit Sodium Chloride () 250 mls @ 15 mls/hr IV .[id number] PRN PRN Reason: SALINE FLUSH Sodium Chloride () 250 mls @ 15 mls/hr IV .[id number] PRN PRN Reason: SALINE FLUSH Last Admin: 12/16/17 21:29 Dose: 15 mls/hr Enteral Nutritional Formula (Vital Af 1.2 Jeremiah Liquid) 1,000 mls @ 65 mls/hr GT .[id number] [facility] Last Admin: 01/09/18 01:30 Dose: 65 mls/hr Sodium Chloride () 1,000 mls @ 0 mls/hr IV .Q0M JUANY Sodium Chloride () 1,000 mls @ 0 mls/hr IV .Q0M [facility] Insulin Glargine (Lantus (Bkc)) 35 units SC BID [facility] Last Admin: 01/08/18 21:12 Dose: 35 units Insulin Human Lispro (Humalog Kwikpen (Bk)) 0 unit SC Q6 [facility]; Protocol Last Admin: 01/09/18 06:36 Dose: Not Given Losartan Potassium (Cozaar) 25 mg PO DAILY [facility] Last Admin: 01/08/18 08:44 Dose: 25 mg Magnesium Hydroxide (Milk Of Magnesia) 30 ml PO DAILY PRN PRN PRN Reason: Constipation Nystatin (Nystatin) 500,000 unit PO Q6 [facility] Last Admin: 01/09/18 05:27 Dose: 500,000 unit Oxycodone HCl (Oxyir) 5 mg GT Q6H PRN PRN PRN Reason: SEVERE PAIN (6-10) Last Admin: 01/08/18 22:43 Dose: 5 mg Polyethylene Glycol (Miralax) 17 gm GT DAILY PRN PRN PRN Reason: Constipation Potassium Bicarb/Potassium Chloride (Potassium Chl 25 Meq Eff (For Liquid)) 25 meq GT TID [facility] Last Admin: 01/09/18 05:34 Dose: 25 meq Prednisone () 30 mg GT DAILY@0800 [facility] Last Admin: 01/08/18 08:44 Dose: 30 mg Sodium Chloride () 5 - 30 ml IV UD PRN PRN Reason: SALINE FLUSH Last Admin: 01/07/18 05:12 Dose: 20 ml Code Visit Inpatient E&M: 67563 Subs Hosp L2
[2018-01-10] MEDS: Insulin Lispro 100 UNIT/ML INSULN.PEN SC ×2 (12:08→18:22)
[2018-01-10 12:30] LABS: Bedside Glucose 191 mg/dL (70-110)
[2018-01-10] MEDS: Acetaminophen 650 MG/20 ML UDC GT (13:01)
[2018-01-10] MEDS: Vital AF 1.2 Cal Liquid 1,000 ML 65 ML GT (13:02)
--- NOTE | 2018-01-10 14:02 | CASEMGMT ---
MUKESH received a call from Dimple Martines at [facility]. She has just been assigned patient. She asked that MUKESH let her know when he is discharged to [place]. Nyla FELTON MSW
[2018-01-10] MEDS: Hydrocortisone 2.5% Crm 1 APPLIC TOPICAL (15:25)
[2018-01-10 18:32] LABS: Bedside Glucose 225 mg/dL (70-110)
[2018-01-10] MEDS: Atorvastatin Calcium 40 MG Tablet GT (21:55)
[2018-01-10] MEDS: oxyCODONE 5 MG Tablet GT (21:59)
[2018-01-10] MEDS: Zolpidem Tartrate 5 MG Tablet PO (21:59)
[2018-01-10] MEDS: Chlorhexidine 15 ML PO (22:05)
[2018-01-10] MEDS: 0.9% NaCl Peripheral Flush Adult/Peds IV (23:34)
[2018-01-11] VITALS (7 sets, daily range): BP systolic 121–135; BP diastolic 67–79; PULSE 72–91; RESP 14–20; TEMP 36.4–36.9; O2SAT 92–96
[2018-01-11] MEDS: Vital AF 1.2 Cal Liquid 1,000 ML 65 ML GT (04:56)
[2018-01-11] MEDS: Furosemide 80 MG Tablet PO (05:04)
[2018-01-11] MEDS: Heparin Injection (Vial) 5,000 UNIT/ML VIAL 5000 UNIT SC (05:05)
[2018-01-11] MEDS: NYSTATIN 500,000 UNIT/5 ML UDC 500000 UNIT PO ×2 (05:05→11:47)
[2018-01-11 05:21] LABS: Bedside Glucose 146 mg/dL (70-110)
--- NOTE | 2018-01-11 07:41 | CASEMGMT ---
MUKESH received a message and Leigh Ann by [facility] received approval for [facility] to go to [facility]. Nyla KEENE
[2018-01-11] MEDS: Clopidogrel Bisulfate 75 MG Tablet GT (09:23)
[2018-01-11] MEDS: Escitalopram Oxalate 10 MG Tablet PO (09:23)
[2018-01-11] MEDS: predniSONE 10 MG Tablet 30 MG GT (09:23)
[2018-01-11] MEDS: Aspirin 81 MG TAB.CHEW GT (09:23)
[2018-01-11] MEDS: Famotidine 20 MG Tablet GT (09:23)
[2018-01-11] MEDS: Losartan Potassium 25 MG Tablet PO (09:24)
--- NOTE | 2018-01-11 09:33 | PN_ITS ---
Patient Problems: Active and Suspected Problems (Last Updated 12/25/17 @ 08:22 by Juan Manuel Subramanian DO) Aspiration pneumonia due to food (regurgitated) (Acute) Subjective: The patient was seen and examined at the bedside this morning. Events from the last 24 hours have been reviewed. The patient is currently afebrile, hemodynamically stable and maintaining appropriate oxygen saturations on trach collar at 35% FiO2. The patient has received insurance approval for disposition to his retirement facility. Objective: The patient's most recent lab work, culture data and imaging studies have all been personally reviewed. Respiratory viral panel was negative. Surface echocardiogram revealed normal LV size and function with an ejection fraction of 60%. Sputum culture dated December 13 revealed evidence of Streptococcus pneumoniae. Repeat sputum culture dated December 16 was positive for Klebsiella. CTA chest dated December 26 revealed no evidence for pulmonary embolism, but did demonstrate bilateral lower lobe infiltrates. - Physical Exam General: Alert, Cooperative, No apparent distress HEENT: Atraumatic, PERRLA, Normocephalic Oral: No Gingival or Mucosal Lesions/ Ulcerations Neck: Supple, No Nodes, Trachea Midline, - - Trach site is intact Lungs: No rhonchi, No wheeze, No rales, Diminished Cardiovascular: Regular rate, Regular Rhythm, Normal S1, Normal S2, No murmurs Abdomen: Bowel Sounds Present, Soft, Non Tender, - - Tolerating tube feeds. PEG site is intact. Extremities: No clubbing, No cyanosis, Edema Skin: - - No significant change from previous. Musculoskeletal: No Tenderness to Palpation of Joints or Extremities, No Muscle Wasting Lymphatic: No Cervical, Supraclavicular, or Inguinal Adenopathy Neurological: Cranial nerves II-XII grossly intact, Neuro grossly intact Psych/Mental Status: Alert and oriented to time, place, person, mood and affect Vital Signs Temp Pulse Resp BP Pulse Ox 36.6 C 88 20 H 135/79 H 94 01/11/18 03:15 01/11/18 06:59 01/11/18 06:44 01/11/18 03:15 01/11/18 06:44 Oxygen Flow Rate (L/min) 4 Oxygen Delivery Method Trach Collar Weight: 293 lb 6.964 oz Body Mass Index (BMI) 45.8 Finger Stick Blood Glucose 193 Intake and Output for Last 24 Hours 01/09/18 01/10/18 01/11/18 23:59 23:59 23:59 Intake Total 2999 / 2999 1967 / 1967 698 / 698 Output Total 1700 / 1700 1775 / 1775 175 / 175 Balance 1299 / 1299 192 / 192 523 / 523 POC Glucose 01/11/18 01/10/18 01/10/18 04:59 18:07 12:05 POC Glucose 146 H 225 H 191 H Labs (Last 48 Hours) 01/09/18 01/09/18 01/10/18 11:29 17:13 05:10 POC Glucose 182 H 160 H 147 H 01/10/18 01/10/18 01/11/18 12:05 18:07 04:59 POC Glucose 191 H 225 H 146 H Clinical Impression(s) from Imaging Studies Brain CT 12/12/17 07:34 IMPRESSION: No CT evidence of acute intracranial hemorrhage. Electronically Signed: Katya Wright MD at 8:54 EST , Service support , Chest X-Ray 12/12/17 07:40 IMPRESSION: Cardiomegaly and mild pulmonary congestion. Electronically Signed: Katya Wright MD at 8:02 EST , Service support , Chest X-Ray 12/15/17 06:34 IMPRESSION: All the support tubes are in good position. Residual increased markings in both lungs as described although there has been improvement as compared to prior study. Electronically Signed: Akhil Izquierdo MD at 11:07 EST Tel [phone], Service support , Chest X-Ray 12/16/17 12:08 IMPRESSION: Stable examination. Electronically Signed: Akhil Izquierdo MD at 12:39 EST Tel [phone], Service support , Chest X-Ray 12/19/17 07:17 IMPRESSION: Residual increased markings at the left lung base suggestive of atelectasis and/or infiltrate. The remainder of the examination is unremarkable. Electronically Signed: Akhil Izquierdo MD at 8:45 EST Tel [phone], Service support , Chest X-Ray 12/20/17 06:05 IMPRESSION: Stable position of the endotracheal tube and enterogastric tube. Progressive left lower lobe atelectasis and/or infiltrate. Electronically Signed: Akhil Izquierdo MD at 9:15 EST Tel [phone], Service support , Chest X-Ray 12/21/17 14:25 IMPRESSION: 1. Endotracheal tube tip is 5.5 cm above the byron. 2. Suboptimal ventilatory effort with stable platelike atelectasis at the left base and mild atelectasis on the right, as noted. Electronically Signed: Brayan Pretty MD at 15:36 EST , Service support , Chest X-Ray 12/21/17 15:00 IMPRESSION: Limited examination. The tip of the orogastric tube appears to be in the distal portion of the esophagus. Electronically Signed: Akhil Izquierdo MD at 15:49 EST Tel [phone], Service support , Chest X-Ray 12/22/17 06:00 IMPRESSION: Increased markings at the lung bases more prominent at the left lung base with blunting of left costophrenic angle. Mild increased markings in the right upper lobe. Follow-up is recommended. The tip of the endotracheal tube is at 5 cm proximal to the byron. Electronically Signed: Akhil Izquierdo MD at 9:46 EST Tel [phone], Service support , Chest X-Ray 12/22/17 11:01 IMPRESSION: 1. Nasogastric tube passes beneath the diaphragm, its tip outside the [id number]. 2. Endotracheal tube unchanged. 3. Improved atelectasis in the right base. Atelectasis on the left is unchanged. 4. Borderline cardiac enlargement. No CHF. Electronically Signed: Brayan Pretty MD at 12:14 EST , Service support , Chest X-Ray 12/22/17 18:29 IMPRESSION: Endotracheal tube ends 4 cm above the byron. Enteric tube is well below the gastroesophageal junction. Stable lung findings with 1 broad platelike area of atelectasis or infiltrate across the left lung base. Electronically Signed: Janessa Combs MD at 22:21 EST , Service support , KUB X-Ray 12/22/17 19:00 IMPRESSION: Orogastric tube placement with tip in gastric body Electronically Signed: Filemon Orona MD at 23:43 EST , Service support , Chest X-Ray 12/23/17 04:27 IMPRESSION: 1. Bilateral basilar airspace consolidation and atelectasis. 2. Right upper lobe subsegmental atelectasis. Electronically Signed: Katya Wright MD at 8:46 EST , Service support , Chest X-Ray 12/26/17 14:30 IMPRESSION: The tip of the tracheostomy is at 5.2 cm proximal to the ybron. Alignment left basilar atelectasis with blunting of left costophrenic angle. Electronically Signed: Akhil Izquierdo MD at 15:10 EST Tel [phone], Service support , Chest CTA 12/26/17 15:01 IMPRESSION: Dense bilateral lower lobe infiltrates.. No evidence for pulmonary embolus ASHD. No evidence for aortic aneurysm Electronically Signed: Filemon Orona MD at 16:35 EST , Service support , Chest X-Ray 12/30/17 11:06 IMPRESSION: The tracheostomy tube appears to be well positioned. No visible pneumothorax. Electronically Signed: Julio Navas, at 11:59 EST Tel , Service support , Chest X-Ray 01/01/18 08:45 IMPRESSION: No acute thoracic pathology. Electronically Signed: Karri Roopa, at 9:19 EST Tel , Service support , KUB X-Ray 01/01/18 08:56 IMPRESSION: No bowel obstruction. Electronically Signed: Karri Blas, at 9:20 EST Tel , Service support , Medical Necessity - Tobacco Use Smoking Status: Current every day smoker Assessment/Plan All Active Problems (Last Updated 12/25/17 @ 08:22 by Juan Manuel Subramanian DO) Aspiration pneumonia due to food (regurgitated) (Acute) Heart failure with preserved ejection fraction (Acute) GALILEA (acute kidney injury) (Acute) Klebsiella pneumonia (Acute) Acute respiratory failure with hypoxia and hypercapnia (Acute) Pneumococcal pneumonia (Acute) Metabolic encephalopathy (Resolved) Chest pain (Resolved) Respiratory failure, acute (Resolved) RECOMMENDATIONS: 1. Continue trach mask support during the day. Wean FiO2 to maintain oxygen saturations 88-92%. 2. Continue BiPAP 12/6 nightly. 3. Continue aggressive pulmonary toileting. 4. Continue bronchodilators. 5. Continue tube feeds and free water flushes. 6. Wean prednisone as ordered 7. Gentle diuresis per cardiology recommendations. 8. Recommend continued outpatient pulmonary follow-up as scheduled. IMPRESSIONS: 1. Acute on chronic combined respiratory failure Likely secondary to decompensated heart failure in the setting of medical noncompliance, with superimposed bronchospastic airway disease, ongoing tobacco dependence and aspiration pneumonia all contributing. The patient's hospital course to date has been complicated by 2 independent self extubations by the patient leading to aspiration of gastric contents. The patient has completed an antibiotic course accordingly. He has already undergone PEG tube placement. A follow-up CTA chest revealed no evidence for pulmonary embolism. Would plan to keep the patient's oxygen saturations 88-92%, to prevent paradoxical CO2 retention. The patient underwent successful tracheostomy placement on December 30. He has been able to tolerate trach mask trials and will be continued on such today. The patient will be placed on BiPAP 12/6 nightly. Tube feeds will be continued accordingly. 2. Metabolic encephalopathy Resolved. Likely secondary to acute on chronic CO2 retention. 3. Decompensated heart failure/history of ischemic cardiomyopathy The patient's weight is significantly elevated when compared to that documented from November. The patient has been diuresed a great amount over his ho spitalization. The patient did undergo a cardiac catheterization on December 28, which revealed patent stents. Continue diuretics as tolerated. 4. Diabetes mellitus Continue Accu-Cheks and sliding scale insulin coverage. Continue tube feeds as tolerated. 5. Obstructive sleep apnea The patient has a history of outpatient noncompliance with the use of nocturnal Pap therapy. The patient will be placed on BiPAP 12/6 nightly. 6. Ongoing tobacco dependence/super morbid obesity/history of medical noncompliance/hypertension Complicates care, management, recovery and prognosis. Nicotine replacement therapy can be utilized while admitted to the hospital. This note was generated with [employer] dictation software. It may contain incorrect words, spelling, and punctuation that were not noted in checking the note before signing. Code Visit Inpatient E&M: 08027 Subs Hosp L2
--- NOTE | 2018-01-11 10:46 | PCM.TXEXTCAR ---
- Diet 12/19/17 04:00 NPO [Diet: Nothing Per Oral] Is pt able to select menu?: Yes - Wound(s) Lt dorsal hand Wound Type: Abrasion R groin Wound Type: Puncture - Therapies Physical Therapy: Eval and Treat Occupational Therapy: Eval and Treat - Allergies/Procedures Done in Hospital Allergies/Adverse Reactions: Allergies adhesive tape Adverse Reaction (Verified 11/10/17 12:17) Rash - Type of Care/Length of Stay Estimated LOS: More Than 30 Days Type of Care Needed: Skilled Rehab Potential: Fair Prognosis: Fair - Additional Orders/Day of Discharge Day of Discharge: 01/11/18 - Dietary and Speech Recommendations Dietitian Recommendations/Changes: Continue Vital AF 1.2 via PEG at goal rate of 65cc/hour w/ 120 cc H2O flush every 4 hours to provide 1872 calories, 117 g protein, and 1985cc free fluid/day. - Follow Up Care Primary Care Physician: Tio Parker MD [Primary Care Provider] - Please follow up with your Primary Care Physician in: in 1-2 weeks
--- NOTE | 2018-01-11 10:55 | DS.PCM_ITS ---
Discharge Date and Diagnosis - Problem List Patient Problems: Active and Suspected Problems (Last Updated 12/25/17 @ 08:22 by Juan Manuel Subramanian DO) Aspiration pneumonia due to food (regurgitated) (Acute) Date of Admission: 12/12/17 Date of Discharge: 01/11/18 - Primary Discharge Diagnosis Active and Suspected Problems (Last Updated 12/25/17 @ 08:22 by Juan Manuel Subramanian DO) Aspiration pneumonia due to food (regurgitated) (Acute) - Secondary Discharge Diagnosis Chronic Problems (Last Updated 12/25/17 @ 08:22 by Juan Manuel Subramanian DO) Pure hypercholesterolemia (Chronic) History of anterolateral myocardial infarction (Chronic 05/03/12) History of cardiac arrest (Chronic 06/22/17) Hypersomnia (Chronic) EMILIA (obstructive sleep apnea) (Chronic) History of cardiac catheterization (Chronic 02/25/16) 05/03/12 @ [facility] per [facility]; 02/21/2014 per [facility] @ [facility] (no stents needed); 02/23 16 per [facility]N @ [facility] prior to PCI and GISSEL to proximal LAD; 06/28/17 after cardiac arrest, prior to GISSEL of mid LCX Nicotine dependence, cigarettes, uncomplicated (Chronic) Chronic systolic congestive heart failure (Chronic) Presence of stent in coronary artery (Chronic 06/29/17) PCI/stent LAD w/ 4.0 x 32 mm Promus 2012 ; PCI/GISSEL to Prox LAD w/ 4.0 x 20 mm Promus 02/25/16 for instent restenosis; PTCA/GISSEL to LCX 06/29/2017 Atherosclerotic heart disease of [place] coronary artery without angina pectoris (Chronic) PCI/stent LAD w/ 4.0 x 32 mm Promus 2012; PCI/GISSEL to Prox LAD w/ 4.0 x 20 mm Promus 02/25/16 for instent restenosis; PTCA/GISSEL to LCx in June 2017; Asthma-COPD overlap syndrome (Chronic) FEV1 46% (01/11/2017) DM2 (diabetes mellitus, type 2) (Chronic) NSTEMI (non-ST elevated myocardial infarction) (Chronic 12/21/16) 02/20/16 Venous stasis of lower extremity (Chronic) Ischemic cardiomyopathy (Chronic) EF of 35% on Cath in February of 2014; 50% per echo 06/21/2017 Hospital Course and Treatment Imaging Results: Clinical Impression(s) from Imaging Studies Brain CT 12/12/17 07:34 IMPRESSION: No CT evidence of acute intracranial hemorrhage. Electronically Signed: Katya Wright MD at 8:54 EST , Service support , Chest X-Ray 12/12/17 07:40 IMPRESSION: Cardiomegaly and mild pulmonary congestion. Electronically Signed: Katya Wright MD at 8:02 EST , Service support , Chest X-Ray 12/15/17 06:34 IMPRESSION: All the support tubes are in good position. Residual increased markings in both lungs as described although there has been improvement as compared to prior study. Electronically Signed: Akhil Izquierdo MD at 11:07 EST Tel [phone], Service support , Chest X-Ray 12/16/17 12:08 IMPRESSION: Stable examination. Electronically Signed: Akhil Izquierdo MD at 12:39 EST Tel [phone], Service support , Chest X-Ray 12/19/17 07:17 IMPRESSION: Residual increased markings at the left lung base suggestive of atelectasis and/or infiltrate. The remainder of the examination is unremarkable. Electronically Signed: Akhil Izquierdo MD at 8:45 EST Tel [phone], Service support , Chest X-Ray 12/20/17 06:05 IMPRESSION: Stable position of the endotracheal tube and enterogastric tube. Progressive left lower lobe atelectasis and/or infiltrate. Electronically Signed: Akhil Izquierdo MD at 9:15 EST Tel [phone], Service support , Chest X-Ray 12/21/17 14:25 IMPRESSION: 1. Endotracheal tube tip is 5.5 cm above the byron. 2. Suboptimal ventilatory effort with stable platelike atelectasis at the left base and mild atelectasis on the right, as noted. Electronically Signed: Brayan Pretty MD at 15:36 EST , Service support , Chest X-Ray 12/21/17 15:00 IMPRESSION: Limited examination. The tip of the orogastric tube appears to be in the distal portion of the esophagus. Electronically Signed: Akhil Izquierdo MD at 15:49 EST Tel [phone], Service support , Chest X-Ray 12/22/17 06:00 IMPRESSION: Increased markings at the lung bases more prominent at the left lung base with blunting of left costophrenic angle. Mild increased markings in the right upper lobe. Follow-up is recommended. The tip of the endotracheal tube is at 5 cm proximal to the byron. Electronically Signed: Akhil Izquierdo MD at 9:46 EST Tel [phone], Service support , Chest X-Ray 12/22/17 11:01 IMPRESSION: 1. Nasogastric tube passes beneath the diaphragm, its tip outside the [id number]. 2. Endotracheal tube unchanged. 3. Improved atelectasis in the right base. Atelectasis on the left is unchanged. 4. Borderline cardiac enlargement. No CHF. Electronically Signed: Brayan Pretty MD at 12:14 EST , Service support , Chest X-Ray 12/22/17 18:29 IMPRESSION: Endotracheal tube ends 4 cm above the byron. Enteric tube is well below the gastroesophageal junction. Stable lung findings with 1 broad platelike area of atelectasis or infiltrate across the left lung base. Electronically Signed: Janessa Combs MD at 22:21 EST , Service support , KUB X-Ray 12/22/17 19:00 IMPRESSION: Orogastric tube placement with tip in gastric body Electronically Signed: Filemon Orona MD at 23:43 EST , Service support , Chest X-Ray 12/23/17 04:27 IMPRESSION: 1. Bilateral basilar airspace consolidation and atelectasis. 2. Right upper lobe subsegmental atelectasis. Electronically Signed: Katya Wright MD at 8:46 EST , Service support , Chest X-Ray 12/26/17 14:30 IMPRESSION: The tip of the tracheostomy is at 5.2 cm proximal to the byron. Alignment left basilar atelectasis with blunting of left costophrenic angle. Electronically Signed: Akhil Izquierdo MD at 15:10 EST Tel [phone], Service support , Chest CTA 12/26/17 15:01 IMPRESSION: Dense bilateral lower lobe infiltrates.. No evidence for pulmonary embolus ASHD. No evidence for aortic aneurysm Electronically Signed: Filemon Orona MD at 16:35 EST , Service support , Chest X-Ray 12/30/17 11:06 IMPRESSION: The tracheostomy tube appears to be well positioned. No visible pneumothorax. Electronically Signed: Julio Navas, at 11:59 EST Tel , Service support , Chest X-Ray 01/01/18 08:45 IMPRESSION: No acute thoracic pathology. Electronically Signed: Karri Blas, at 9:19 EST Tel , Service support , KUB X-Ray 01/01/18 08:56 IMPRESSION: No bowel obstruction. Electronically Signed: Karri Blas, at 9:20 EST Tel , Service support , Operations: None Summary of Care Provided: Patient is a 58-year-old gentleman who is been on admission for almost a month admitted with acute hypoxic respiratory failure. Patient has had a complicated stay. 1. Acute on chronic hypoxic and hypercapnic respiratory failure due to multiple medical comorbidities including CHF exacerbation, aspiration pneumonia, obesity hypoventilation syndrome. Patient had a prolonged stay on the vent consultation was placed to ENT patient had trach placed on 12/30/2017. Patient was transferred from intensive care unit to the progressive care unit on 01/09/2018 patient was transferred to [facility] facility on 01/11/2018 once insurance precertification was obtained. 2. Acute systolic heart failure with an ejection fraction of 25% patient is on Lasix; patient responded to treatment 3. Hypertension-blood pressure controlled, home medications continued with dose adjustment as needed 4. Diabetes mellitus type II: patient's oral hypoglycemics held. Placed on long acting insulin, Accu-Cheks a.c. and at bedtime and covered with sliding scale insulin 5. Hypokalemia corrected per protocol 6. Paroxysmal atrial fibrillation patient currently in sinus rhythm has been seen in consultation by cardiology 7. Acute metabolic encephalopathy; resolved 8. Coronary artery disease with previous stent placement patient is on dual antiplatelet therapy with aspirin and Plavix in addition to losartan and atorvastatin 9. Morbid obesity with BMI of 44 10. Obstructive sleep apnea 11. Obesity hypoventilation syndrome 12. Physical deconditioning 13. DVT prophylaxis SC heparin Patient Problems: Active and Suspected Problems (Last Updated 12/25/17 @ 08:22 by Juan Manuel Subramanian DO) Aspiration pneumonia due to food (regurgitated) (Acute) Subjective: GENERAL: cooperative HEENT: Atraumatic; EYES; Anicteric, Normal Conjunctiva NECK; Trach collar in place. RESPIRATORY: Diminished to auscultation bilaterally, CARDIOVASCULAR: Regular S1 S2, GI: soft, non-tender, normoactive bowel sounds, : No Renal angle tenderness; EXTREMITIES: No clubbing, no cyanosis. MUSCULOSKELETAL: No Joint Tenderness; NEURO: Awake; no lateralizing signs. SKIN: Stasis dermatitis both lower extremities PSYCH; flat affect - Physical Exam General: Alert HEENT: Atraumatic, - - Trach collar in place Lungs: Diminished Cardiovascular: Regular rate, Regular Rhythm Neurological: Neuro grossly intact Psych/Mental Status: Normal Affect Vital Signs Temp Pulse Resp BP Pulse Ox 98.4 F 91 18 121/75 H 96 01/11/18 09:15 01/11/18 09:15 01/11/18 09:15 01/11/18 09:15 01/11/18 09:15 Oxygen Flow Rate (L/min) 4 Oxygen Delivery Method Trach Collar Weight: 133.1 kg Body Mass Index (BMI) 45.8 Finger Stick Blood Glucose 193 Intake and Output for Last 24 Hours 01/09/18 01/10/18 01/11/18 23:59 23:59 23:59 Intake Total 2999 / 2999 1967 / 1967 698 / 698 Output Total 1700 / 1700 1775 / 1775 175 / 175 Balance 1299 / 1299 192 / 192 523 / 523 POC Glucose 01/11/18 01/10/18 01/10/18 04:59 18:07 12:05 POC Glucose 146 H 225 H 191 H Home Medications: Medications to take at Discharge Clopidogrel Bisulfate [Plavix] 75 mg PO DAILY 06/20/17 Gabapentin [Neurontin] 400 mg PO TID 06/20/17 Montelukast [Singulair] 10 mg PO DAILY 06/20/17 fluticasone-vilanterol INHALATION QDAY 07/27/17 pantoprazole 20 mg tablet,delayed release 20 mg PO QDAY 07/27/17 Fluticasone/Vilanterol [Breo Ellipta 200-25 Mcg INH] 1 puff INHALATION DAILY 12/12/17 Prednisone 10 mg PO DAILY 12/12/17 Acetaminophen Liquid [Tylenol Liquid] 650 mg GT Q6H PRN PRN udc 01/11/18 Albuterol Aerosols [Ventolin Aerosols] 2.5 mg INHALATION Q2H PRN PRN vial.neb. 01/11/18 Albuterol Aerosols [Ventolin Aerosols] 2.5 mg INHALATION Q6HWA.RT vial.neb. 01/11/18 Aspirin [Aspirin, Baby] 81 mg GT DAILY tab.chew 01/11/18 Atorvastatin Calcium [Lipitor] 40 mg GT QHS tablet 01/11/18 Carvedilol [Coreg (Beta Kareem)] 3.125 mg PO BID #1 tablet 01/11/18 Chlorhexidine 15 ml PO BID ml 01/11/18 Chlorhexidine Gluc 2% Cloth 1 each TOPICAL DAILY towelette 01/11/18 Escitalopram Oxalate [Lexapro] 10 mg PO DAILY tablet 01/11/18 Famotidine [Pepcid] 20 mg GT BID tablet 01/11/18 Furosemide [Lasix] 80 mg PO TID tablet 01/11/18 Hydrocortisone 2.5% Crm [Hytone] 1 applic TOPICAL TID PRN PRN tube 01/11/18 Insulin Glargine [Lantus SoloStar Pen] 35 units SC , pen 01/11/18 Insulin Lispro [Humalog KwikPen] See Protocol SC ,, insuln.pen 01/11/18 Losartan Potassium [Cozaar] 25 mg PO DAILY tablet 01/11/18 Magnesium Hydroxide [Milk Of Magnesia] 30 ml PO DAILY PRN PRN udc 01/11/18 Nystatin 500,000 unit PO Q6 udc 01/11/18 Polyethylene Glycol 3350 [Miralax] 17 gm GT DAILY PRN PRN packet 01/11/18 Potassium Cloride Effervescent [Potassium Chl 25 Meq Eff (For Liquid)] 25 meq GT TID tablet.eff 01/11/18 Following Prescrptions Were Given to Patient: Carvedilol [Coreg (Beta Kareem)] 3.125 mg PO BID #1 tablet Primary Care Physician: Tio Parker MD [Primary Care Provider] - Please follow up with your Primary Care Physician in: in 1-2 weeks Disposition: Long-Term facility Minutes spent on discharge:: 50 Patient Condition:: Stable Medical Necessity - Tobacco Use Smoking Status: Current every day smoker Meaningful Use Info Meaningful Use Diagnoses (Choose all that apply): CHF - CHF JONE/ARB ordered at discharge?: Yes Documented LVEF (%): 25 Code Visit Inpatient E&M: 35071 Disch Hosp
--- NOTE | 2018-01-11 10:57 | PCM.TXEXTCAR ---
- Diet 12/19/17 04:00 NPO [Diet: Nothing Per Oral] Is pt able to select menu?: Yes - Wound(s) Lt dorsal hand Wound Type: Abrasion R groin Wound Type: Puncture - Therapies Physical Therapy: Eval and Treat Occupational Therapy: Eval and Treat - Allergies/Procedures Done in Hospital Allergies/Adverse Reactions: Allergies adhesive tape Adverse Reaction (Verified 11/10/17 12:17) Rash - Type of Care/Length of Stay Estimated LOS: More Than 30 Days Type of Care Needed: Skilled Rehab Potential: Fair Prognosis: Fair - Additional Orders/Day of Discharge Additional Orders: Standard trach care per policy Day of Discharge: 01/11/18 - Dietary and Speech Recommendations Dietitian Recommendations/Changes: Continue Vital AF 1.2 via PEG at goal rate of 65cc/hour w/ 120 cc H2O flush every 4 hours to provide 1872 calories, 117 g protein, and 1985cc free fluid/day. - Follow Up Care Primary Care Physician: Tio Parker MD [Primary Care Provider] - Please follow up with your Primary Care Physician in: in 1-2 weeks
[2018-01-11 12:01] LABS: Bedside Glucose 141 mg/dL (70-110)
--- NOTE | 2018-01-11 12:23 | CASEMGMT ---
MUKESH faxed orders to [facility] by [place]. Completed PASRR on HENS. Called C[facility] Cow[facility] and arranged for patient to get picked up at 1p via bariatric cot. MUKESH let patient know and RN as well as legal secretary. MUKESH also called patient's POA, Villa Anthony and let him know of d/c and quill picking machine operator time. MUKESH also faxed patient's bi-pap settings to [facility] per the respiratory therapists at [facility]'s request. Plan: d/c to [facility] by [place] under skilled level of care on a PASRR as he will likely be there longer than 30 days. [facility] [place]. Nyla FELTON WIRE PREPARATION MACHINE TENDER
--- NOTE | 2018-01-11 12:29 | NURSING ---
Report given to CECIL Eubanks at [facility].
--- NOTE | 2018-01-11 13:26 | CASEMGMT ---
MUKESH called Lindasilvina armaan and left her a message letting her know patient was d/c to [facility] today. Villa Anthony also called MUKESH and thanked MUKESH for leaving a message letting him know about d/c. Nyla FELTON MSW
== END 2018-01-11 13:21 | disposition skilled nursing facility (03) | DRG 4 ==
LOC: ED 09:11 → ICU 09:15 → PCU 01-09 14:27
PROVIDERS: Anesthesiology; Internal Medicine; Internal Medicine Cardiovascular Disease; Internal Medicine Critical Care Medicine; Otolaryngology; Surgery; Admitting Provider Student in an Organized Health Care Education/Training Program; Emergency Provider Emergency Medicine; Family Provider Family Medicine; PCP Family Medicine; Visit Provider Internal Medicine
PROC: 0DH64UZ Insertion of Feeding Device into Stomach, Percutaneous Endoscopic Approach (ICD-10-PCS; CPT 43246; principal; 2017-12-25 07:00)
PROC: 0B110F4 Bypass Trachea to Cutaneous with Tracheostomy Device, Open Approach (ICD-10-PCS; principal; 2017-12-30 09:30)
DX: J96.21 Acute and chronic respiratory failure with hypoxia (principal); J69.0 Pneumonitis due to inhalation of food and vomit; G93.41 Metabolic encephalopathy; J15.0 Pneumonia due to Klebsiella pneumoniae; J13 Pneumonia due to Streptococcus pneumoniae; A41.9 Sepsis, unspecified organism; I50.21 Acute systolic (congestive) heart failure; E66.2 Morbid (severe) obesity with alveolar hypoventilation; Z68.43 Body mass index [BMI] 50.0-59.9, adult; E87.1 Hypo-osmolality and hyponatremia; N17.9 Acute kidney failure, unspecified; J95.851 Ventilator associated pneumonia; J96.22 Acute and chronic respiratory failure with hypercapnia; Z53.8 Procedure and treatment not carried out for other reasons; E87.6 Hypokalemia; I11.0 Hypertensive heart disease with heart failure; I48.0 Paroxysmal atrial fibrillation; J44.9 Chronic obstructive pulmonary disease, unspecified; I25.10 Atherosclerotic heart disease of native coronary artery without angina pectoris; F17.210 Nicotine dependence, cigarettes, uncomplicated; E78.00 Pure hypercholesterolemia, unspecified; I25.2 Old myocardial infarction; Z95.5 Presence of coronary angioplasty implant and graft; Z79.899 Other long term (current) drug therapy; Z86.74 Personal history of sudden cardiac arrest; I25.5 Ischemic cardiomyopathy; E87.8 Other disorders of electrolyte and fluid balance, not elsewhere classified; E11.65 Type 2 diabetes mellitus with hyperglycemia; Z99.81 Dependence on supplemental oxygen; Z79.02 Long term (current) use of antithrombotics/antiplatelets; I87.8 Other specified disorders of veins
CPT/HCPCS: 31500; 31720; 36569; 36600; 51702; 70450; 71045; 71275; 74018; 80048; 80053; 81001; 82550; 82803; 82962; 83036; 83605; 83735; 83880; 84100; 84132; 84478; 84484; 85025; 85027; 85610; 85730; 87040; 87070; 87077; 87086; 87088; 87186; 87205; 87633; 87641; 93005; 93306; 93460; 94002; 94003; 94640; 94660; 95831; 97110; 97162; 97165; 97530; 97535; 97802; 97803; 99251; 99285; J7030; J7040; J7050; Q9957; Q9967; A4216; C1751; C1769; C1894; C8929; G0463; J0330; J1940; J3490

== ENCOUNTER 2018-01-22 11:43 | Inpatient (IN) | payer MEDICARE, MEDICAID, SELFPAY ==
[2017-06-29 08:47] VITALS: BMI 43.2
[2017-12-30 08:52] VITALS: BMI 45.8
[2018-01-22] VITALS (8 sets, daily range): BP systolic 93–107; BP diastolic 64–68; PULSE 69–81; RESP 18; TEMP 36.3–36.6; O2SAT 93–94; BMI 46.5
--- NOTE | 2018-01-22 12:47 | EKG12_ITS ---
Test Reason : Blood Pressure : / mmHG Vent. Rate : 072 BPM Atrial Rate : 072 BPM P-R Int : 180 ms QRS Dur : 098 ms QT Int : 406 ms P-R-T Axes : 054 066 146 degrees QTc Int : 444 ms Sinus rhythm with Premature atrial complexes Low voltage QRS Cannot rule out Anterior infarct (cited on or before 30-JUN-2017) Abnormal ECG When compared with ECG of 20-DEC-2017 04:48, Questionable change in initial forces of Anterior leads T wave inversion now evident in Lateral leads Confirmed by MATILDA CABA, ELMER ([id number]), video editor SELINA TSANG ([id number]) on 01/25/2018 3:58:31 PM Referred By: KIRIT Confirmed By:ELMER GREY MD
--- NOTE | 2018-01-22 12:47 | RAD_ITS ---
STUDY: X-RAY CHEST REASON FOR EXAM: Male, 58 years old. Tracheostomy, dyspnea TECHNIQUE: AP COMPARISON: 01/01/2018 FINDINGS: Tracheostomy tube is stable. Right arm PICC has been removed. EKG leads project over the chest. Persistent hypoinflation with decreased amount of atelectasis in the retrocardiac left lower lobe. No airspace consolidation. There is no demonstrated pleural abnormality. Normal size heart. Normal mediastinum and marta. Normal visualized pulmonary arteries. Normal visualized aortic arch and descending thoracic aorta. No acute bony process. There is no demonstrated abnormality of the visualized soft tissue structures of the upper abdomen. RAD/Chest 1 View (Portable) IMPRESSION: 1. No airspace consolidation or pleural effusion. 2. Decreased retrocardiac left lower lobe atelectasis as compared to the prior study. 3. Removal of right arm PICC. 4. Stable tracheostomy. Electronically Signed: Jv Smith MD at 15:19 EST , Service support ,
--- NOTE | 2018-01-22 13:16 | PCM.HP.STD ---
Problem List (1) History of cardiac arrest Status: Chronic (2) Nicotine dependence, cigarettes, uncomplicated Status: Chronic (3) EMILIA (obstructive sleep apnea) Status: Suspected (4) Chronic systolic congestive heart failure Status: Chronic (5) Presence of stent in coronary artery Status: Chronic Comment: PCI/stent LAD w/ 4.0 x 32 mm Promus 2012 ; PCI/GISSEL to Prox LAD w/ 4.0 x 20 mm Promus 02/25/16 for instent restenosis; PTCA/GISSEL to LCX 06/29/2017 (6) DM2 (diabetes mellitus, type 2) Status: Chronic (7) Venous stasis of lower extremity Status: Chronic (8) Ischemic cardiomyopathy Status: Chronic Comment: EF of 35% on Cath in February of 2014; 50% per echo 06/21/2017 History of Present Illness Date of Admission: 01/22/18 Chief Complaint: Direct admission from outside facility for hypoxia, acute on chronic hypoxic respiratory failure. The patient is a 58 year old M with past medical history as mentioned above directly admitted from outside facility for acute on chronic hypoxic respiratory failure. Patient was transferred to the [facility] ER for hypoxia and worsening shortness of breath. Reportedly, patient was very short of breath and his pulse oximeter was low in the 80s percent. He had aggressive suctioning through the tracheostomy tube upon arrival to ED and his pulse ox improved to 80s-90s and he feels better. There was excess secretions coming out from the tracheostomy tube. Patient was evaluated there and his pulse ox remained in the 80s percent. He was transferred to our hospital here for further eversion treatment. The patient himself mentioned that he was more short of breath this morning but he feels better after suctioning. He reported chronic cough with minimal sputum production. Denied fever or chills. Denied chest pain, palpitation, dizziness or lightheadedness. He mentioned that he has been on 4 L through the tracheostomy collar. Patient was discharged from the hospital on January 07, 2018 after he was admitted for acute on chronic hypoxic respiratory failure due to aspiration pneumonia and due to prolonged ventilation, he had tracheostomy performed and he was discharged to the group home. He does have a chronic respiratory failure secondary to COPD, CHF and obstructive sleep apnea as well as obesity hypoventilation syndrome and he has been on oxygen through the trach collar. He had history of CAD status post stents and he has been on aspirin, statins, Plavix, beta-blockers and losartan. He had a history of type 2 diabetes mellitus, has been on Lantus insulin as well as sliding scale and his blood sugar has been under fair control, most recent hemoglobin A1c was 7.7% on December,. He had a history of ischemic cardiomyopathy/chronic systolic CHF, has been on diuretics, beta blockers and losartan and most recent echocardiogram was from December, that showed ejection fraction of 60% which is apparently improved. At the outside facility, ABG performed and revealed pH of 7.41, PCO2 of 51 and PO2 in the 70s. After the infrequent suctioning through the tracheostomy tube, patient sats improved but shortly after, came down to 80s percent. Chest x-ray at the outside facility revealed no acute infiltrate, consolidation or effusion according to the official report. Routine blood work performed and revealed mild chronic anemia and chronic hyponatremia, otherwise normal. He is being admitted for acute on chronic hypoxic respiratory failure likely due to excessive secretions and mucus plugging of the tracheostomy tube. 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) History of cardiac arrest (Chronic 06/22/17) Nicotine dependence, cigarettes, uncomplicated (Chronic) Chronic systolic congestive heart failure (Chronic) Presence of stent in coronary artery (Chronic 06/29/17) PCI/stent LAD w/ 4.0 x 32 mm Promus 2012 ; PCI/GISSEL to Prox LAD w/ 4.0 x 20 mm Promus 02/25/16 for instent restenosis; PTCA/GISSEL to LCX 06/29/2017 DM2 (diabetes mellitus, type 2) (Chronic) Venous stasis of lower extremity (Chronic) Ischemic cardiomyopathy (Chronic) EF of 35% on Cath in February of 2014; 50% per echo 06/21/2017 Medical History: Medical History (Last Updated 01/22/18 @ 13:13 by Braden Hernandez MD) History of anterolateral myocardial infarction (Chronic) Onset Date: 05/03/12 I25.2 History of cardiac arrest (Chronic) Onset Date: 06/22/17 Z86.74 Nicotine dependence, cigarettes, uncomplicated (Chronic) F17.210 EMILIA (obstructive sleep apnea) (Suspected) G47.33 Chronic systolic congestive heart failure (Chronic) I50.22 DM2 (diabetes mellitus, type 2) (Chronic) E11.9 Venous stasis of lower extremity (Chronic) I87.8 Ischemic cardiomyopathy (Chronic) I25.5 EF of 35% on Cath in February of 2014; 50% per echo 06/21/2017 Allergies adhesive tape Adverse Reaction (Verified 11/10/17 12:17) Rash Home Medications: Ambulatory Orders Medication Instructions Recorded Clopidogrel Bisulfate [Plavix] 75 mg PO DAILY 06/20/17 Gabapentin [Neurontin] 400 mg PO TID 06/20/17 Montelukast [Singulair] 10 mg PO DAILY 06/20/17 fluticasone-vilanterol 1 puff INHALATION QDAY 07/27/17 pantoprazole 20 mg tablet,delayed 20 mg PO QDAY 07/27/17 release Prednisone 10 mg PO DAILY 12/12/17 Acetaminophen Liquid [Tylenol 650 mg GT Q6H PRN PRN udc 01/11/18 Liquid] Albuterol Aerosols [Ventolin 2.5 mg INHALATION Q2H PRN PRN 01/11/18 Aerosols] vial.neb. Hydrocortisone 2.5% Crm [Hytone] 1 applic TOPICAL TID PRN PRN tube 01/11/18 Insulin Lispro [Humalog KwikPen] See Protocol SC ,,01/11/18 insuln.pen Magnesium Hydroxide [Milk Of 30 ml PO DAILY PRN PRN udc 01/11/18 Magnesia] Albuterol Aerosols [Ventolin 2.5 mg INHALATION Q6HWA.RT PRN 01/22/18 Aerosols] Aspirin [Aspirin, Baby] 81 mg GT DAILY 01/22/18 Atorvastatin Calcium [Lipitor] 40 mg GT QHS 01/22/18 Bisacodyl [Dulcolax] 5 mg PO DAILY PRN 01/22/18 Bisacodyl [Dulcolax] 10 mg RECTAL DAILY PRN PRN 01/22/18 Carvedilol [Coreg (Beta Kareem)] 3.125 mg PO BID 01/22/18 Chlorhexidine 15 ml PO BID 01/22/18 Escitalopram Oxalate [Lexapro] 10 mg PO DAILY 01/22/18 Furosemide [Lasix] 80 mg PO TID 01/22/18 Insulin Glargine [Lantus SoloStar 35 units SC 01/22/18 Pen] Losartan Potassium [Cozaar] 25 mg PO DAILY 01/22/18 Potassium Cloride Effervescent 25 meq GT TID 01/22/18 [Potassium Chl 25 Meq Eff (For Liquid)] Ranitidine HCl 150 mg GT DAILY 01/22/18 Surgical History: Surgical History (Last Updated 01/22/18 @ 11:49 by Braden Hernandez MD) Presence of stent in coronary artery (Chronic) Onset Date: 06/29/17 Z95.5 PCI/stent LAD w/ 4.0 x 32 mm Promus 2012 ; PCI/GISSEL to Prox LAD w/ 4.0 x 20 mm Promus 02/25/16 for instent restenosis; PTCA/GISSEL to LCX 06/29/2017 Amputated great toe of left foot Z89.412 Surgical History: - - Tracheostomy, PEG tube insertion. Cardiac stents. Psychiatric History: No pertinent psych hx Lives: [facility] Smoking Status: Former smoker Alcohol: None Drugs: None - *Family History Maternal Family History: Family History (Last Reviewed 11/10/17 @ 12:19 by Mirna Patiño) Mother Diabetes Heart disease History Items: No pertinent history, - Paternal Family History: Family History (Last Reviewed 11/10/17 @ 12:19 by Mirna Patiño) Mother Diabetes Heart disease History Items: No pertinent history Review of Systems Constitutional: Denies: Anorexia, Chills, Fever, Weakness Eyes: Denies: Blurred vision, Double vision, Drainage, Redness HEENT: Denies: Difficulty Hearing, Ear Pain, Eye Pain, Nasal Congestion, Sore Throat Cardiovascular: Denies: Chest Pain, Chest Tightness, Heaviness, Light Headedness, Palpitations, Syncope Respiratory: Reports: Cough, Shortness of Breath, Shortness of breath at rest, Sputum production. Denies: Pleuritic Pain, Wheezing Gastrointestinal: Denies: Abdominal Pain, Constipation, Diarrhea, Nausea, Vomiting Genitourinary: Denies: Dysuria, Frequency, Hematuria Musculoskeletal: Denies: Arm Pain, Back Pain, Foot Pain Skin: Denies: Dryness, Rash Neurological: Denies: Balance problems, Double vision, Change in Speech, Slurred speech, Confusion, Headaches, Incoordination Psychiatric: Denies: Anxiety, Depression Endocrine: Denies: Change in Body Habitus, Polydipsia VTE Information - Inpt Only VTE Present on Admission: No VTE Mechan Device Prophylaxis: None VTE Pharm Prophylaxis ordered?: Yes - Physical Exam General: Alert, Oriented x3, Cooperative, - - Moderately short of breath. HEENT: Atraumatic, PERRLA, EOMI, Normocephalic Oral: Moist Mucosa, No Gingival or Mucosal Lesions/ Ulcerations Neck: Supple, No JVD, Negative Carotid Bruits, Trachea Midline, Thyroid Normal Size and Texture, - - Tracheostomy tube in place. Lungs: Clear to auscultation, No wheeze, No rales, Diminished, Rhonchi Cardiovascular: Regular rate, Regular Rhythm, Normal S1, Normal S2, PMI Normal Abdomen: Bowel Sounds Present, Soft, Non Tender, Non-Distended, No Hepato-splenomegaly, Obese, - - PEG tube in place. Extremities: No clubbing, No cyanosis, Edema Skin: No rashes, No breakdown Lymphatic: No Cervical, Supraclavicular, or Inguinal Adenopathy Neurological: Cranial nerves II-XII grossly intact, Motor Exam 5/5 strength throughout Psych/Mental Status: Flat Affect, Alert and oriented to time, place, person, mood and affect Vital Signs Temp Pulse Resp BP Pulse Ox 97.4 F L 77 18 93/65 93 01/22/18 11:30 01/22/18 12:51 01/22/18 11:30 01/22/18 11:30 01/22/18 11:30 Oxygen Delivery Method Trach Collar Weight: 306 lb 0.026 oz Body Mass Index (BMI) 46.5 Finger Stick Blood Glucose 193 Intake and Output for Last 24 Hours 01/20/18 01/21/18 01/22/18 23:59 23:59 23:59 Intake Total Balance Laboratory data: CBC and BMP performed at the outside facility and reviewed as below. CBC: WBC 6.6, hemoglobin 11.5, platelet count 174. BMP: Sodium 133, potassium 3.6, chloride 90, serum bicarb 35, glucose 96, BUN 19, creatinine 0.57, serum calcium 9.5. Assessment/Plan This is a 58 years old male patient admitted directly from outside facility for acute on chronic hypoxic respiratory failure likely due to mucous plugging and excessive respiratory secretions. #1 acute on chronic hypoxic respiratory failure: This is probably due to mucous plugging and excessive respiratory secretions. Patient felt better after excessive deep suctioning through the tracheotomy tube. At this time, his pulse ox is 93% on trach collar with 40% FiO2. His vital signs are stable, afebrile. Routine CBC and BMP was unremarkable. Chest x-ray showed no acute findings. Plan: Admit to PCU, cardiac monitoring, routine EKG, routine suctioning of the tracheostomy tube, bronchodilators with DuoNeb and albuterol as needed, chest physiotherapy, incentive spirometer, repeat chest x-ray, pulmonology consult, repeat CBC and BMP tomorrow morning, PT OT evaluation and treatment. #2 status post tracheostomy/status post PEG tube insertion: Those were performed after he had prolonged intubation last admission which was last month. Patient remained on the ventilator for a long time, stayed in the hospital for a month. Plan for tracheostomy care, routine suctioning, will resume tube feeds. #3 COPD/chronic respiratory failure: Patient has been on 4 L through the tracheostomy collar. Plan as above, bronchodilators, deep suctioning, chest physical therapy. #4 CAD status post stents: We will do routine EKG. Continue aspirin, statins, Plavix, Coreg and losartan. #5 type 2 diabetes mellitus: Blood sugar has been under fair control. Most recent hemoglobin A1c was 7.7. Plan to continue Lantus, sliding scale. #6 ischemic cardiomyopathy/chronic systolic CHF: Clinically stable, compensated. No evidence of acute CHF. Most recent 2D echocardiogram was last month and showed ejection fraction of 60% which is improving. Plan to continue Lasix, Coreg and losartan, monitor volume status to avoid volume overload. #7 DVT prophylaxis: Subcu Lovenox. This note was generated with [employer] dictation software. It may contain incorrect words, spelling, and punctuation that were not noted in checking the note before signing. Code Visit Inpatient E&M: 09300 Init Hosp L3
[2018-01-22] MEDS: Gabapentin 400 MG Capsule GT ×2 (16:44→23:11)
[2018-01-22] MEDS: Vital AF 1.2 Cal Liquid 1,000 ML 65 ML GT (16:44)
[2018-01-22] MEDS: Furosemide 80 MG Tablet GT ×2 (16:44→23:10)
[2018-01-22 17:11] LABS: Bedside Glucose 71 mg/dL (70-110)
[2018-01-22] MEDS: Acetaminophen 650 MG/20 ML UDC GT (19:01)
[2018-01-22] MEDS: Ipratropium/Albuterol Sulfate 3 ML AMPUL.NEB INHALATION (19:51)
[2018-01-22] MEDS: Carvedilol 3.125 MG TABLET PO (23:10)
[2018-01-22] MEDS: Atorvastatin Calcium 40 MG Tablet GT (23:11)
[2018-01-22 23:36] LABS: Bedside Glucose 84 mg/dL (70-110)
[2018-01-23] VITALS (17 sets, daily range): BP systolic 79–120; BP diastolic 44–75; PULSE 71–89; RESP 16–20; TEMP 36.3–37; O2SAT 93–97
[2018-01-23 05:39] LABS: Absolute Lymphocyte Count 1.42 X10^3/ul (0.83-4.51); Absolute Neutrophil Count 3.6 X10^3/uL (2.0-7.7); Basophil# 0.01 X10^3/uL; Basophil% 0.2 % (0-1); Eosinophil# 0.07 X10^3/uL; Eosinophils% 1.2 % (0-5); Hematocrit 32.1 % (40-54); Hemoglobin 10.3 g/dl (13.0-16.5); Lymphocyte # 1.42 X10^3/ul (4.0); Mean Corp Hgb Conc 32.1 g/gl (32-36); Mean Corpuscular Hgb 27.7 pg (27.0-32.0); Mean Corpuscular Volume 86.3 fL (80-94); Monocyte# 0.52 X10^3/uL; Monocyte% 9.1 % (0-10); Neutrophil # 3.63 X10^3/uL (2.7-7.7); Neutrophil % 63.8 % (47-70); Platelet Count 158 K/mm3 (150-450); RBC Distribution Width CV 17.4 % (11.6-14.6); Red Blood Count 3.72 M/mm3 (4.6-6.2); White Blood Count 5.7 K/mm3 (4.4-11.0)
[2018-01-23 05:40] LABS: POSITIVE COUNT NO; POSITIVE DIFFERENTIAL NO; POSITIVE MORPHOLOGY NO
[2018-01-23 05:44] LABS: Anion Gap 7 (5-15); BUN 10 mg/dL (7-18); BUN/Creat Ratio 20.1 RATIO (10-20); Calcium,Total 8.6 mg/dL (8.5-10.1); Chloride 101 mmol/L (98-107); EST Glomerular Filtration Rate 181 mL/min (>60); Est Glom Filt Rate - Afr Amer 219 mL/min (>60); Glucose 105 mg/dL (74-106); Potassium 3.2 mmol/L (3.5-5.1); Sodium Level 143 mmol/L (136-145)
[2018-01-23] MEDS: Furosemide 80 MG Tablet GT ×2 (05:53→14:55)
[2018-01-23] MEDS: Enoxaparin 40 MG/0.4 ML Syringe SC (05:53)
[2018-01-23] MEDS: Gabapentin 400 MG Capsule GT ×3 (05:54→21:47)
[2018-01-23] MEDS: Acetaminophen 650 MG/20 ML UDC GT (06:14)
[2018-01-23] MEDS: Ipratropium/Albuterol Sulfate 3 ML AMPUL.NEB INHALATION ×4 (06:52→19:20)
[2018-01-23 07:05] LABS: Bedside Glucose 108 mg/dL (70-110)
[2018-01-23] MEDS: Carvedilol 3.125 MG TABLET PO (09:10)
[2018-01-23] MEDS: Clopidogrel Bisulfate 75 MG Tablet GT (09:10)
[2018-01-23] MEDS: Famotidine 20 MG Tablet GT (09:10)
[2018-01-23] MEDS: Losartan Potassium 25 MG Tablet GT (09:10)
[2018-01-23] MEDS: Escitalopram Oxalate 10 MG Tablet GT (09:10)
[2018-01-23] MEDS: Montelukast 10 MG Tablet GT (09:10)
[2018-01-23] MEDS: Aspirin 81 MG TAB.CHEW GT (09:10)
[2018-01-23] MEDS: predniSONE 10 MG Tablet GT (09:10)
--- NOTE | 2018-01-23 10:08 | CASEMGMT ---
Patient is from [place] by [place]. He will require insurance authorization to return. Once PT/OT has evaluations in computer SW will fax information to [place] to start pre-cert. Plan: d/c back to [place] by [place] pending pre-cert. Nyla FELTON MSW
--- NOTE | 2018-01-23 10:26 | PN_ITS ---
Subjective: Patient is a 58-year-old gentleman who was on admission for almost a month [facility] was brought back as a result of increasing work of breathing with suspected mucus plugging. Admitted to monitored bed for subsequent management Objective: GENERAL: cooperative HEENT: Atraumatic; EYES; Anicteric, Normal Conjunctiva NECK; Trach collar in place. RESPIRATORY: Diminished to auscultation bilaterally, CARDIOVASCULAR: Regular S1 S2, GI: soft, non-tender, normoactive bowel sounds, : No Renal angle tenderness; EXTREMITIES: No clubbing, no cyanosis. MUSCULOSKELETAL: No Joint Tenderness; NEURO: Awake; no lateralizing signs. SKIN: Stasis dermatitis both lower extremities PSYCH; flat affect Vitals/I&O's: Vital Signs Temp Pulse Resp BP Pulse Ox 97.6 F L 76 20 H 120/75 93 01/23/18 05:00 01/23/18 06:59 01/23/18 06:52 01/23/18 05:00 01/23/18 05:00 Oxygen Flow Rate (L/min) 12 Oxygen Delivery Method Trach Collar Weight: 138.1 kg Body Mass Index (BMI) 46.5 Finger Stick Blood Glucose 193 Intake and Output for Last 24 Hours 01/21/18 01/22/18 01/23/18 23:59 23:59 23:59 Intake Total 838 / 838 324 / 324 Output Total 1525 / 1525 725 / 725 Balance -687 / -687 -401 / -401 Laboratory Results 01/22/18 16:51: POC Glucose 71 01/22/18 23:07: POC Glucose 84 01/23/18 05:00: WBC 5.7, RBC 3.72 L, Hgb 10.3 L, Hct 32.1 L, MCV 86.3, MCH 27.7, MCHC 32.1, RDW 17.4 H, RDW Differential 52.0 H, Plt Count 158, MPV 10.0, Immature Gran % (Auto) 0.700, Neut % (Auto) 63.8, Lymph % (Auto) 25.0, [place] % (Auto) 9.1, Eos % (Auto) 1.2, Baso % (Auto) 0.2, Absolute Neuts (auto) 3.6, Absolute Lymphs (auto) 1.42, Total Counted Not Reportable 01/23/18 05:00: Sodium 143, Potassium 3.2 L, Chloride 101, Carbon Dioxide 35.0 H , Anion Gap 7, BUN 10, Creatinine 0.50 L, Estim Creat Clear Calc 152.00, Est GFR (MDRD) Af Amer 219, Est GFR (MDRD) Non-Af 181, BUN/Creatinine Ratio 20.1 H, Glucose 105, Calcium 8.6 01/23/18 06:17: POC Glucose 108 Current Medications Acetaminophen (Tylenol Liquid) 650 mg GT Q6H PRN PRN PRN Reason: FEVER Last Admin: 01/23/18 06:14 Dose: 650 mg Albuterol Sulfate (Ventolin Aerosols) 2.5 mg INHALATION Q2H PRN PRN PRN Reason: Shortness of breath, wheezing Albuterol/Ipratropium (Duoneb) 3 ml INHALATION Q4HWA.RT [facility] Last Admin: 01/23/18 06:52 Dose: 3 ml Aspirin ([facility]in, Baby) [facility] Last Admin: 01/23/18 09:10 Dose: 81 mg Atorvastatin Calcium (Lipitor) 40 mg GT QHS [facility] Last Admin: 01/22/18 23:11 Dose: 40 mg Bisacodyl (Dulcolax) 10 mg RECTAL DAILY PRN PRN PRN Reason: CONSTIPATION Carvedilol (Coreg) 3.125 mg PO BID [facility] Last Admin: 01/23/18 09:10 Dose: 3.1249 mg Clopidogrel Bisulfate (Plavix) 75 mg GT DAILY [facility] Last Admin: 01/23/18 09:10 Dose: 75 mg Enoxaparin Sodium (Lovenox) 40 mg SC DAILY@0600 [facility] Last Admin: 01/23/18 05:53 Dose: 40 mg Escitalopram Oxalate (Lexapro) 10 mg GT DAILY [facility] Last Admin: 01/23/18 09:10 Dose: 10 mg Famotidine (Pepcid) 20 mg GT DAILY [facility] Last Admin: 01/23/18 09:10 Dose: 20 mg Furosemide (Lasix) 80 mg GT TID [facility] Last Admin: 01/23/18 05:53 Dose: 80 mg Gabapentin (Neurontin) 400 mg GT TID [facility] Last Admin: 01/23/18 05:54 Dose: 400 mg Enteral Nutritional Formula (Vital Af 1.2 Jeremiah Liquid) 1,000 mls @ 65 mls/hr GT .[id number] [facility] Last Admin: 01/23/18 07:55 Dose: Not Given Insulin Glargine (Lantus (Bk)) 35 units SC [facility] Last Admin: 01/23/18 06:18 Dose: Not Given Insulin Human Lispro (Humalog Kwikpen (Bk)) 0 unit SC ACHS [facility]; Protocol Last Admin: 01/23/18 06:18 Dose: Not Given Lansoprazole (Prevacid) 30 mg GT DAILY [facility] Losartan Potassium (Cozaar) 25 mg GT DAILY [facility] Last Admin: 01/23/18 09:10 Dose: 25 mg Magnesium Hydroxide (Milk Of Magnesia) 30 ml GT DAILY PRN PRN Reason: Constipation Montelukast Sodium (Singulair) 10 mg GT DAILY [facility] Last Admin: 01/23/18 09:10 Dose: 10 mg Ondansetron HCl (Zofran) 4 mg IV Q8H PRN PRN PRN Reason: NAUSEA/VOMITING Potassium Bicarb/Potassium Chloride (Potassium Chl 25 Meq Eff (For Liquid)) 25 meq GT TID [facility] Last Admin: 01/23/18 05:53 Dose: 25 meq Potassium Chloride (K-Dur) [facility] Prednisone () 10 mg GT [facility]ILY[facility] Last Admin: 01/23/18 09:10 Dose: 10 mg Medical Necessity - Tobacco Use Smoking Status: Former smoker Assessment/Plan Patient is a 58-year-old gentleman who was on admission for almost a month discharged to a [facility] facility was brought back as a result of increasing work of breathing with suspected mucus plugging. Admitted to monitored bed for subsequent management 1. Acute on chronic hypoxic and hypercapnic respiratory failure due to suspected mucous plugging admitted to monitored bed consultation placed to Dr. Denny with pulmonary medicine plan is to continue pulmonary toileting in addition to supplemental oxygen to keep oxygen saturation greater than 90 2. Chronic systolic heart failure with an ejection fraction of 25% well compensated 3. Hypertension-blood pressure controlled, home medications continued with dose adjustment as needed 4. Diabetes mellitus type II: Blood glucose well controlled on on long acting insulin, Accu-Cheks a.c. and at bedtime and covered with sliding scale insulin 5. Hypokalemia corrected per protocol 6. Paroxysmal atrial fibrillation currently in sinus rhythm 7. Coronary artery disease with previous stent placement patient is on dual antiplatelet therapy with aspirin and Plavix in addition to losartan and atorvastatin 8. Morbid obesity with BMI of 46 9. Obstructive sleep apnea 10. Obesity hypoventilation syndrome 11. Dyslipidemia-patient is on statin therapy, continued at home dose 12. Physical deconditioning: Requested for PT OT eval and social media analyst to assist with discharge planning 13. DVT prophylaxis SC Lovenox Active Medications Acetaminophen (Tylenol Liquid) 650 mg GT Q6H PRN PRN PRN Reason: FEVER Last Admin: 01/23/18 06:14 Dose: 650 mg Albuterol Sulfate (Ventolin Aerosols) 2.5 mg INHALATION Q2H PRN PRN PRN Reason: Shortness of breath, wheezing Albuterol/Ipratropium (Duoneb) 3 ml INHALATION Q4HWA.RT [facility] Last Admin: 01/23/18 15:02 Dose: 3 ml Aspirin (Aspirin, Baby) [facility] Last Admin: 01/23/18 09:10 Dose: 81 mg Atorvastatin Calcium (Lipitor) 40 mg GT QHS [facility] Last Admin: 01/22/18 23:11 Dose: 40 mg Bisacodyl (Dulcolax) 10 mg RECTAL DAILY PRN PRN PRN Reason: CONSTIPATION Carvedilol (Coreg) 3.125 mg PO BID [facility] Last Admin: 01/23/18 09:10 Dose: 3.1249 mg Clopidogrel Bisulfate (Plavix) 75 mg GT DAILY [facility] Last Admin: 01/23/18 09:10 Dose: 75 mg Enoxaparin Sodium (Lovenox) 40 mg SC DAILY@0600 [facility] Last Admin: 01/23/18 05:53 Dose: 40 mg Escitalopram Oxalate (Lexapro) 10 mg GT DAILY [facility] Last Admin: 01/23/18 09:10 Dose: 10 mg Famotidine (Pepcid) 20 mg GT DAILY [facility] Last Admin: 01/23/18 09:10 Dose: 20 mg Furosemide (Lasix) 80 mg GT TID [facility] Last Admin: 01/23/18 14:55 Dose: 80 mg Gabapentin (Neurontin) 400 mg GT TID [facility] Last Admin: 01/23/18 14:55 Dose: 400 mg Enteral Nutritional Formula (Vital Af 1.2 Jeremiah Liquid) 1,000 mls @ 65 mls/hr GT .[id number] [facility] Last Admin: 01/23/18 07:55 Dose: Not Given Insulin Glargine (Lantus (Bk)) 35 units SC [facility] Last Admin: 01/23/18 06:18 Dose: Not Given Insulin Human Lispro (Humalog Kwikpen ([facility])) 0 unit SC [facility]; Protocol Last Admin: 01/23/18 11:55 Dose: Not Given Lansoprazole (Prevacid) 30 mg GT DAILY [facility] Last Admin: 01/23/18 11:55 Dose: 30 mg Losartan Potassium (Cozaar) 25 mg GT DAILY [facility] Last Admin: 01/23/18 09:10 Dose: 25 mg Magnesium Hydroxide (Milk Of Magnesia) 30 ml GT DAILY PRN PRN Reason: Constipation Montelukast Sodium (Singulair) 10 mg GT DAILY [facility] Last Admin: 01/23/18 09:10 Dose: 10 mg Ondansetron HCl (Zofran) 4 mg IV Q8H PRN PRN PRN Reason: NAUSEA/VOMITING Potassium Bicarb/Potassium Chloride (Potassium Chl 25 Meq Eff (For Liquid)) 25 meq GT TID [facility] Last Admin: 01/23/18 14:55 Dose: 25 meq Prednisone () [facility] Last Admin: 01/23/18 09:10 Dose: 10 mg Code Visit Inpatient E&M: 25340 Subs Hosp L3
--- NOTE | 2018-01-23 10:37 | NURSING ---
wound photo: left lateral lower leg
--- NOTE | 2018-01-23 11:11 | CASEMGMT ---
Both patient's Healthcare POA and healthcare LW are on file. Nyla FELTON BUSHEL WORKER
[2018-01-23 12:06] LABS: Bedside Glucose 142 mg/dL (70-110)
--- NOTE | 2018-01-23 12:24 | CASEMGMT ---
MUKESH faxed all necessary information to [facility] by [facility] and requested that they start the pre-cert. MUKESH also called [facility] and left a message for Bernadette asking her to start the pre-cert. Nyla FELTON MSW
--- NOTE | 2018-01-23 14:09 | PCM.CONS.GEN ---
Reason for Consult Date of Consultation: 01/23/18 Reason for Consultation: Acute on chronic respiratory failure History of Present Illness: The patient is a 58-year-old male, well-known to me from his previous hospitalization, who presented to the emergency department from his shelter facility with acute on chronic hypoxic respiratory failure due to transient mucous plugging. The patient was recently admitted to the hospital December 12 - January 11 with acute on chronic combined respiratory failure secondary to decompensated heart failure, bronchospastic airway disease and aspiration pneumonia. The patient's hospital course was complicated by 2 independent self extubations leading to aspiration of gastric contents. The patient did require eventual tracheostomy and PEG tube placement. Apparently, the patient became short of breath while at his nursing facility with worsening hypoxia. It is not known to me how aggressively the patient was receiving bronchopulmonary hygiene at his shelter facility. On arrival to the emergency department, the patient was aggressively suctioned with subsequent improvement in his respiratory status. He has remained afebrile. Initial laboratory evaluation revealed no evidence of a leukocytosis. Chemistry profile was notable only for a potassium of 3.2. Plain film chest x-ray revealed no acute cardiopulmonary process. The patient was subsequently admitted to the progressive care unit for further management. 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) History of cardiac arrest (Chronic 06/22/17) Nicotine dependence, cigarettes, uncomplicated (Chronic) Chronic systolic congestive heart failure (Chronic) Presence of stent in coronary artery (Chronic 06/29/17) PCI/stent LAD w/ 4.0 x 32 mm Promus 2012 ; PCI/GISSEL to Prox LAD w/ 4.0 x 20 mm Promus 02/25/16 for instent restenosis; PTCA/GISSEL to LCX 06/29/2017 DM2 (diabetes mellitus, type 2) (Chronic) Venous stasis of lower extremity (Chronic) Ischemic cardiomyopathy (Chronic) EF of 35% on Cath in February of 2014; 50% per echo 06/21/2017 Medical History: Medical History (Last Updated 01/22/18 @ 13:13 by Braden Hernandez MD) History of anterolateral myocardial infarction (Chronic) Onset Date: 05/03/12 I25.2 History of cardiac arrest (Chronic) Onset Date: 06/22/17 Z86.74 Nicotine dependence, cigarettes, uncomplicated (Chronic) F17.210 EMILIA (obstructive sleep apnea) (Suspected) G47.33 Chronic systolic congestive heart failure (Chronic) I50.22 DM2 (diabetes mellitus, type 2) (Chronic) E11.9 Venous stasis of lower extremity (Chronic) I87.8 Ischemic cardiomyopathy (Chronic) I25.5 EF of 35% on Cath in February of 2014; 50% per echo 06/21/2017 Allergies adhesive tape Adverse Reaction (Verified 11/10/17 12:17) Rash Home Medications: Ambulatory Orders Medication Instructions Recorded Clopidogrel Bisulfate [Plavix] 75 mg PO DAILY 06/20/17 Gabapentin [Neurontin] 400 mg PO TID 06/20/17 Montelukast [Singulair] 10 mg PO DAILY 06/20/17 fluticasone-vilanterol 1 puff INHALATION QDAY 07/27/17 pantoprazole 20 mg tablet,delayed 20 mg PO QDAY 07/27/17 release Prednisone 10 mg PO DAILY 12/12/17 Acetaminophen Liquid [Tylenol 650 mg GT Q6H PRN PRN udc 01/11/18 Liquid] Albuterol Aerosols [Ventolin 2.5 mg INHALATION Q2H PRN PRN 01/11/18 Aerosols] vial.neb. Hydrocortisone 2.5% Crm [Hytone] 1 applic TOPICAL TID PRN PRN tube 01/11/18 Insulin Lispro [Humalog KwikPen] See Protocol SC ,,18 01/11/18 insuln.pen Magnesium Hydroxide [Milk Of 30 ml PO DAILY PRN PRN udc 01/11/18 Magnesia] Albuterol Aerosols [Ventolin 2.5 mg INHALATION Q6HWA.RT PRN 01/22/18 Aerosols] Aspirin [Aspirin, Baby] 81 mg GT DAILY 01/22/18 Atorvastatin Calcium [Lipitor] 40 mg GT QHS 01/22/18 Bisacodyl [Dulcolax] 5 mg PO DAILY PRN 01/22/18 Bisacodyl [Dulcolax] 10 mg RECTAL DAILY PRN PRN 01/22/18 Carvedilol [Coreg (Beta Kareem)] 3.125 mg PO BID 01/22/18 Chlorhexidine 15 ml PO BID 01/22/18 Escitalopram Oxalate [Lexapro] 10 mg PO DAILY 01/22/18 Furosemide [Lasix] 80 mg PO TID 01/22/18 Insulin Glargine [Lantus SoloStar 35 units SC 01/22/18 Pen] Losartan Potassium [Cozaar] 25 mg PO DAILY 01/22/18 Potassium Cloride Effervescent 25 meq GT TID 01/22/18 [Potassium Chl 25 Meq Eff (For Liquid)] Ranitidine HCl 150 mg GT DAILY 01/22/18 Surgical History: Surgical History (Last Updated 01/22/18 @ 11:49 by Braden Hernandez MD) Presence of stent in coronary artery (Chronic) Onset Date: 06/29/17 Z95.5 PCI/stent LAD w/ 4.0 x 32 mm Promus 2012 ; PCI/GISSEL to Prox LAD w/ 4.0 x 20 mm Promus 02/25/16 for instent restenosis; PTCA/GISSEL to LCX 06/29/2017 Amputated great toe of left foot Z89.412 Surgical History: - - Tracheostomy, PEG tube insertion. Cardiac stents. Psychiatric History: No pertinent psych hx Lives: [facility] Smoking Status: Former smoker Alcohol: None Drugs: None - *Family History Paternal Family History: Family History (Last Reviewed 11/10/17 @ 12:19 by Mirna Patiño) Mother Diabetes Heart disease History Items: No pertinent history Maternal Family History: Family History (Last Reviewed 11/10/17 @ 12:19 by Mirna Patiño) Mother Diabetes Heart disease History Items: No pertinent history, - Review of Systems Constitutional: Denies: Chills, Fever, Weight Change HEENT: Denies: Head Aches, Sinus Congestion, Sinus Drainage Cardiovascular: Denies: Chest Pain, Palpitations Respiratory: Reports: Cough, Shortness of Breath, Sputum production Gastrointestinal: Denies: Abdominal Pain, Nausea, Vomiting Genitourinary: Denies: Dysuria Musculoskeletal: Denies: Joint Pain, Joint Tenderness Neurological: Denies: Numbness, Tingling, Focal weakness Psychiatric: Denies: Anxiety, Depression, Homicidal Ideations, Suicidal Ideations Hematologic/ Lymphatic: Denies: Easy Bruising, Easy Bleeding Objective: The patient's most recent lab work, culture data and imaging studies have all been personally reviewed. Sputum culture and respiratory viral panel are pending. - Physical Exam General: Alert, Cooperative, No apparent distress HEENT: Atraumatic, PERRLA, Normocephalic Oral: No Gingival or Mucosal Lesions/ Ulcerations Neck: Supple, No Nodes, Trachea Midline, - - Trach site is intact. Lungs: No rhonchi, No wheeze, No rales, Diminished Cardiovascular: Regular rate, Regular Rhythm, Normal S1, Normal S2, No murmurs Abdomen: Bowel Sounds Present, Soft, Non Tender, Obese, - - PEG site is intact. Extremities: No clubbing, No cyanosis, Edema Skin: No breakdown, - - Venous stasis dermatitis Musculoskeletal: No Tenderness to Palpation of Joints or Extremities, No Muscle Wasting Lymphatic: No Cervical, Supraclavicular, or Inguinal Adenopathy Neurological: Cranial nerves II-XII grossly intact, Neuro grossly intact Psych/Mental Status: Flat Affect Vital Signs Temp Pulse Resp BP Pulse Ox 37.0 C 74 20 H 103/61 94 01/23/18 09:12 01/23/18 10:50 01/23/18 10:50 01/23/18 09:12 01/23/18 09:12 Oxygen Flow Rate (L/min) 12 Oxygen Delivery Method Trach Collar Weight: 304 lb 7.334 oz Body Mass Index (BMI) 46.5 Finger Stick Blood Glucose 193 Intake and Output for Last 24 Hours 01/21/18 01/22/18 01/23/18 23:59 23:59 23:59 Intake Total 838 / 838 755 / 755 Output Total 1525 / 1525 1075 / 1075 Balance -687 / -687 -320 / -320 Laboratory Tests Past 24 Hrs 01/23/18 01/23/18 05:00 05:00 WBC 5.7 RBC 3.72 L Hgb 10.3 L Hct 32.1 L MCV 86.3 MCH 27.7 MCHC 32.1 RDW 17.4 H RDW Differential 52.0 H Plt Count 158 MPV 10.0 Immature Gran % (Auto) 0.700 Neut % (Auto) 63.8 Lymph % (Auto) 25.0 [place] % (Auto) 9.1 Eos % (Auto) 1.2 Baso % (Auto) 0.2 Absolute Neuts (auto) 3.6 Absolute Lymphs (auto) 1.42 Total Counted Not Reportable Sodium 143 Potassium 3.2 L Chloride 101 Carbon Dioxide 35.0 H Anion Gap 7 BUN 10 Creatinine 0.50 L Estim Creat Clear Calc 152.00 Est GFR (MDRD) Af Amer 219 Est GFR (MDRD) Non-Af 181 BUN/Creatinine Ratio 20.1 H Glucose 105 Calcium 8.6 POC Glucose 01/23/18 01/23/18 01/22/18 11:53 06:17 23:07 POC Glucose 142 H 108 84 01/22/18 16:51 POC Glucose 71 Clinical Impression(s) from Imaging Studies Chest X-Ray 01/22/18 12:47 IMPRESSION: 1. No airspace consolidation or pleural effusion. 2. Decreased retrocardiac left lower lobe atelectasis as compared to the prior study. 3. Removal of right arm PICC. 4. Stable tracheostomy. Electronically Signed: Jv Smith MD at 15:19 EST , Service support , Assessment/Plan RECOMMENDATIONS: 1. Wean supplemental oxygen to maintain saturations 88-92%. 2. Obtain sputum culture and respiratory viral panel. 3. Continue scheduled aerosol treatments and diuretics. 4. Continue aggressive bronchopulmonary hygiene. 5. Start precertification for return to shelter facility. IMPRESSIONS: 1. Acute on chronic combined respiratory failure secondary to transient mucous plugging The patient presented to the emergency department with acute on chronic respiratory failure, which developed as a consequence of transient mucous plugging. This resolved with aggressive bronchopulmonary hygiene. Unclear why this level of care was unable to be provided the patient at his shelter facility. Regardless, upon admission to the hospital, the patient had return back to his baseline level from a respiratory perspective. He does not have evidence of an acute pulmonary infectious process on plain film chest imaging. Therefore, I do not feel that antibiotics are indicated. We will plan to continue scheduled bronchodilators and diuretics, per his outpatient regimen. 2. History of ischemic cardiomyopathy/heart failure Continue outpatient medical therapy. 3. Diabetes mellitus/chronic tobacco dependence/super morbid obesity/history of medical noncompliance/hypertension Complicates care, management, recovery and prognosis. Okay from my perspective to continue outpatient medical regimen. Physical therapy to continue to work with patient while admitted to the hospital. This note was generated with [employer] dictation software. It may contain incorrect words, spelling, and punctuation that were not noted in checking the note before signing. Code Visit Inpatient E&M: 42833 Init Hosp L2
--- NOTE | 2018-01-23 14:14 | CON.PCM_ITS ---
Reason for Consult Date of Consultation: 01/23/18 Reason for Consultation: Acute on chronic respiratory failure History of Present Illness: The patient is a 58-year-old male, well-known to me from his previous hospitalization, who presented to the emergency department from his snf facility with acute on chronic hypoxic respiratory failure due to transient mucous plugging. The patient was recently admitted to the hospital December 12 - January 11 with acute on chronic combined respiratory failure secondary to decompensated heart failure, bronchospastic airway disease and aspiration pneumonia. The patient's hospital course was complicated by 2 independent self extubations leading to aspiration of gastric contents. The patient did require eventual tracheostomy and PEG tube placement. Apparently, the patient became short of breath while at his nursing facility with worsening hypoxia. It is not known to me how aggressively the patient was receiving bronchopulmonary hygiene at his snf facility. On arrival to the emergency department, the patient was aggressively suctioned with subsequent improvement in his respiratory status. He has remained afebrile. Initial laboratory evaluation revealed no evidence of a leukocytosis. Chemistry profile was notable only for a potassium of 3.2. Plain film chest x- ray revealed no acute cardiopulmonary process. The patient was subsequently admitted to the progressive care unit for further management. 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) History of cardiac arrest (Chronic 06/22/17) Nicotine dependence, cigarettes, uncomplicated (Chronic) Chronic systolic congestive heart failure (Chronic) Presence of stent in coronary artery (Chronic 06/29/17) PCI/stent LAD w/ 4.0 x 32 mm Promus 2012 ; PCI/GISSEL to Prox LAD w/ 4.0 x 20 mm Promus 02/25/16 for instent restenosis; PTCA/GISSEL to LCX 06/29/2017 DM2 (diabetes mellitus, type 2) (Chronic) Venous stasis of lower extremity (Chronic) Ischemic cardiomyopathy (Chronic) EF of 35% on Cath in February of 2014; 50% per echo 06/21/2017 Medical History: Medical History (Last Updated 01/22/18 @ 13:13 by Braden Hernandez MD) History of anterolateral myocardial infarction (Chronic) Onset Date: 05/03/12 I25.2 History of cardiac arrest (Chronic) Onset Date: 06/22/17 Z86.74 Nicotine dependence, cigarettes, uncomplicated (Chronic) F17.210 EMILIA (obstructive sleep apnea) (Suspected) G47.33 Chronic systolic congestive heart failure (Chronic) I50.22 DM2 (diabetes mellitus, type 2) (Chronic) E11.9 Venous stasis of lower extremity (Chronic) I87.8 Ischemic cardiomyopathy (Chronic) I25.5 EF of 35% on Cath in February of 2014; 50% per echo 06/21/2017 Allergies adhesive tape Adverse Reaction (Verified 11/10/17 12:17) Rash Home Medications: Ambulatory Orders Medication Instructions Recorded Clopidogrel Bisulfate [Plavix] 75 mg PO DAILY 06/20/17 Gabapentin [Neurontin] 400 mg PO TID 06/20/17 Montelukast [Singulair] 10 mg PO DAILY 06/20/17 fluticasone-vilanterol 1 puff INHALATION QDAY 07/27/17 pantoprazole 20 mg tablet,delayed 20 mg PO QDAY 07/27/17 release Prednisone 10 mg PO DAILY 12/12/17 Acetaminophen Liquid [Tylenol 650 mg GT Q6H PRN PRN udc 01/11/18 Liquid] Albuterol Aerosols [Ventolin 2.5 mg INHALATION Q2H PRN PRN 01/11/18 Aerosols] vial.neb. Hydrocortisone 2.5% Crm [Hytone] 1 applic TOPICAL TID PRN PRN tube 01/11/18 Insulin Lispro [Humalog KwikPen] See Protocol SC ,,18 01/11/18 insuln.pen Magnesium Hydroxide [Milk Of 30 ml PO DAILY PRN PRN udc 01/11/18 Magnesia] Albuterol Aerosols [Ventolin 2.5 mg INHALATION Q6HWA.RT PRN 01/22/18 Aerosols] Aspirin [Aspirin, Baby] 81 mg GT DAILY 01/22/18 Atorvastatin Calcium [Lipitor] 40 mg GT QHS 01/22/18 Bisacodyl [Dulcolax] 5 mg PO DAILY PRN 01/22/18 Bisacodyl [Dulcolax] 10 mg RECTAL DAILY PRN PRN 01/22/18 Carvedilol [Coreg (Beta Kareem)] 3.125 mg PO BID 01/22/18 Chlorhexidine 15 ml PO BID 01/22/18 Escitalopram Oxalate [Lexapro] 10 mg PO DAILY 01/22/18 Furosemide [Lasix] 80 mg PO TID 01/22/18 Insulin Glargine [Lantus SoloStar 35 units SC 01/22/18 Pen] Losartan Potassium [Cozaar] 25 mg PO DAILY 01/22/18 Potassium Cloride Effervescent 25 meq GT TID 01/22/18 [Potassium Chl 25 Meq Eff (For Liquid)] Ranitidine HCl 150 mg GT DAILY 01/22/18 Surgical History: Surgical History (Last Updated 01/22/18 @ 11:49 by Braden Hernandez MD) Presence of stent in coronary artery (Chronic) Onset Date: 06/29/17 Z95.5 PCI/stent LAD w/ 4.0 x 32 mm Promus 2012 ; PCI/GISSEL to Prox LAD w/ 4.0 x 20 mm Promus 02/25/16 for instent restenosis; PTCA/GISSEL to LCX 06/29/2017 Amputated great toe of left foot Z89.412 Surgical History: - - Tracheostomy, PEG tube insertion. Cardiac stents. Psychiatric History: No pertinent psych hx Lives: [facility] Smoking Status: Former smoker Alcohol: None Drugs: None - *Family History Paternal Family History: Family History (Last Reviewed 11/10/17 @ 12:19 by Mirna Patiño) Mother Diabetes Heart disease History Items: No pertinent history Maternal Family History: Family History (Last Reviewed 11/10/17 @ 12:19 by Mirna Patiño) Mother Diabetes Heart disease History Items: No pertinent history, - Review of Systems Constitutional: Denies: Chills, Fever, Weight Change HEENT: Denies: Head Aches, Sinus Congestion, Sinus Drainage Cardiovascular: Denies: Chest Pain, Palpitations Respiratory: Reports: Cough, Shortness of Breath, Sputum production Gastrointestinal: Denies: Abdominal Pain, Nausea, Vomiting Genitourinary: Denies: Dysuria Musculoskeletal: Denies: Joint Pain, Joint Tenderness Neurological: Denies: Numbness, Tingling, Focal weakness Psychiatric: Denies: Anxiety, Depression, Homicidal Ideations, Suicidal Ideations Hematologic/ Lymphatic: Denies: Easy Bruising, Easy Bleeding Objective: The patient's most recent lab work, culture data and imaging studies have all been personally reviewed. Sputum culture and respiratory viral panel are pending. - Physical Exam General: Alert, Cooperative, No apparent distress HEENT: Atraumatic, PERRLA, Normocephalic Oral: No Gingival or Mucosal Lesions/ Ulcerations Neck: Supple, No Nodes, Trachea Midline, - - Trach site is intact. Lungs: No rhonchi, No wheeze, No rales, Diminished Cardiovascular: Regular rate, Regular Rhythm, Normal S1, Normal S2, No murmurs Abdomen: Bowel Sounds Present, Soft, Non Tender, Obese, - - PEG site is intact. Extremities: No clubbing, No cyanosis, Edema Skin: No breakdown, - - Venous stasis dermatitis Musculoskeletal: No Tenderness to Palpation of Joints or Extremities, No Muscle Wasting Lymphatic: No Cervical, Supraclavicular, or Inguinal Adenopathy Neurological: Cranial nerves II-XII grossly intact, Neuro grossly intact Psych/Mental Status: Flat Affect Vital Signs Temp Pulse Resp BP Pulse Ox 37.0 C 74 20 H 103/61 94 01/23/18 09:12 01/23/18 10:50 01/23/18 10:50 01/23/18 09:12 01/23/18 09:12 Oxygen Flow Rate (L/min) 12 Oxygen Delivery Method Trach Collar Weight: 304 lb 7.334 oz Body Mass Index (BMI) 46.5 Finger Stick Blood Glucose 193 Intake and Output for Last 24 Hours 01/21/18 01/22/18 01/23/18 23:59 23:59 23:59 Intake Total 838 / 838 755 / 755 Output Total 1525 / 1525 1075 / 1075 Balance -687 / -687 -320 / -320 Laboratory Tests Past 24 Hrs 01/23/18 01/23/18 05:00 05:00 WBC 5.7 RBC 3.72 L Hgb 10.3 L Hct 32.1 L MCV 86.3 MCH 27.7 MCHC 32.1 RDW 17.4 H RDW Differential 52.0 H Plt Count 158 MPV 10.0 Immature Gran % (Auto) 0.700 Neut % (Auto) 63.8 Lymph % (Auto) 25.0 [place] % (Auto) 9.1 Eos % (Auto) 1.2 Baso % (Auto) 0.2 Absolute Neuts (auto) 3.6 Absolute Lymphs (auto) 1.42 Total Counted Not Reportable Sodium 143 Potassium 3.2 L Chloride 101 Carbon Dioxide 35.0 H Anion Gap 7 BUN 10 Creatinine 0.50 L Estim Creat Clear Calc 152.00 Est GFR (MDRD) Af Amer 219 Est GFR (MDRD) Non-Af 181 BUN/Creatinine Ratio 20.1 H Glucose 105 Calcium 8.6 POC Glucose 01/23/18 01/23/18 01/22/18 11:53 06:17 23:07 POC Glucose 142 H 108 84 01/22/18 16:51 POC Glucose 71 Clinical Impression(s) from Imaging Studies Chest X-Ray 01/22/18 12:47 IMPRESSION: 1. No airspace consolidation or pleural effusion. 2. Decreased retrocardiac left lower lobe atelectasis as compared to the prior study. 3. Removal of right arm PICC. 4. Stable tracheostomy. Electronically Signed: Jv Smith MD at 15:19 EST , Service support , Assessment/Plan RECOMMENDATIONS: 1. Wean supplemental oxygen to maintain saturations 88-92%. 2. Obtain sputum culture and respiratory viral panel. 3. Continue scheduled aerosol treatments and diuretics. 4. Continue aggressive bronchopulmonary hygiene. 5. Start precertification for return to snf facility. IMPRESSIONS: 1. Acute on chronic combined respiratory failure secondary to transient mucous plugging The patient presented to the emergency department with acute on chronic respiratory failure, which developed as a consequence of transient mucous plugging. This resolved with aggressive bronchopulmonary hygiene. Unclear why this level of care was unable to be provided the patient at his snf facility. Regardless, upon admission to the hospital, the patient had return back to his baseline level from a respiratory perspective. He does not have evidence of an acute pulmonary infectious process on plain film chest imaging. Therefore, I do not feel that antibiotics are indicated. We will plan to continue scheduled bronchodilators and diuretics, per his outpatient regimen. 2. History of ischemic cardiomyopathy/heart failure Continue outpatient medical therapy. 3. Diabetes mellitus/chronic tobacco dependence/super morbid obesity/history of medical noncompliance/hypertension Complicates care, management, recovery and prognosis. Okay from my perspective to continue outpatient medical regimen. Physical therapy to continue to work with patient while admitted to the hospital. This note was generated with [employer] dictation software. It may contain incorrect words, spelling, and punctuation that were not noted in checking the note before signing. Code Visit Inpatient E&M: 32346 Init Hosp L2
[2018-01-23 16:16] LABS: Bedside Glucose 159 mg/dL (70-110)
[2018-01-23 18:16] LABS: Bedside Glucose 152 mg/dL (70-110)
[2018-01-23] MEDS: Vital AF 1.2 Cal Liquid 1,000 ML 65 ML GT (18:16)
[2018-01-23] MEDS: Atorvastatin Calcium 40 MG Tablet GT (21:47)
[2018-01-23 22:11] LABS: Bedside Glucose 146 mg/dL (70-110)
[2018-01-24] VITALS (15 sets, daily range): BP systolic 100–129; BP diastolic 56–73; PULSE 67–84; RESP 16–20; TEMP 36.5–36.9; O2SAT 94–100
[2018-01-24] MEDS: Enoxaparin 40 MG/0.4 ML Syringe SC (05:21)
[2018-01-24] MEDS: Gabapentin 400 MG Capsule GT ×3 (05:21→22:41)
[2018-01-24] MEDS: Furosemide 80 MG Tablet GT ×3 (05:22→22:41)
[2018-01-24 05:56] LABS: Bedside Glucose 129 mg/dL (70-110)
[2018-01-24] MEDS: Ipratropium/Albuterol Sulfate 3 ML AMPUL.NEB INHALATION ×4 (06:54→19:00)
--- NOTE | 2018-01-24 07:39 | PN_ITS ---
Subjective: The patient was seen and examined at the bedside this morning. Events from the last 24 hours have been reviewed. The patient is currently afebrile, hemodynamically stable and maintaining appropriate oxygen saturations on his trach collar. Objective: The patient's most recent lab work, culture data and imaging studies have all been personally reviewed. Respiratory viral panel was negative. Sputum culture is pending. - Physical Exam General: Alert, Cooperative, No apparent distress HEENT: Atraumatic, PERRLA, Normocephalic Oral: No Gingival or Mucosal Lesions/ Ulcerations Neck: Supple, No Nodes, Trachea Midline, - - Trach site is intact. Lungs: No rhonchi, No wheeze, No rales, Diminished Cardiovascular: Regular rate, Regular Rhythm, Normal S1, Normal S2, No murmurs Abdomen: Bowel Sounds Present, Soft, Non Tender, Obese, - - PEG site is intact Extremities: No clubbing, No cyanosis, No edema Skin: - - No significant change from previous. Musculoskeletal: No Tenderness to Palpation of Joints or Extremities, No Muscle Wasting Lymphatic: No Cervical, Supraclavicular, or Inguinal Adenopathy Neurological: Cranial nerves II-XII grossly intact, Neuro grossly intact Psych/Mental Status: Alert and oriented to time, place, person, mood and affect Vital Signs Temp Pulse Resp BP Pulse Ox 36.9 C 71 18 129/73 H 97 01/24/18 03:45 01/24/18 03:45 01/24/18 03:45 01/24/18 03:45 01/24/18 03:45 Oxygen Flow Rate (L/min) 12 Oxygen Delivery Method Trach Collar Weight: 304 lb 7.334 oz Body Mass Index (BMI) 46.5 Finger Stick Blood Glucose 193 Intake and Output for Last 24 Hours 01/22/18 01/23/18 01/24/18 23:59 23:59 23:59 Intake Total 838 / 838 1731 / 1731 969 / 969 Output Total 1525 / 1525 1325 / 1325 175 / 175 Balance -687 / -687 406 / 406 794 / 794 Microbiology Past 72 Hours 01/23/18 16:05 Gram Stain - Preliminary Sputum, Tracheal Aspirate 01/23/18 13:20 Respiratory Panel (PCR) - Final Mucosa - Nasopharyngeal POC Glucose 01/24/18 01/23/18 01/23/18 05:25 21:40 18:09 POC Glucose 129 H 146 H 152 H 01/23/18 01/23/18 15:51 11:53 POC Glucose 159 H 142 H Labs (Last 48 Hours) 01/22/18 01/22/18 01/23/18 16:51 23:07 05:00 WBC 5.7 RBC 3.72 L Hgb 10.3 L Hct 32.1 L MCV 86.3 MCH 27.7 MCHC 32.1 RDW 17.4 H RDW Differential 52.0 H Plt Count 158 MPV 10.0 Immature Gran % (Auto) 0.700 Neut % (Auto) 63.8 Lymph % (Auto) 25.0 [place] % (Auto) 9.1 Eos % (Auto) 1.2 Baso % (Auto) 0.2 Absolute Neuts (auto) 3.6 Absolute Lymphs (auto) 1.42 Total Counted Not Reportable Sodium Potassium Chloride Carbon Dioxide Anion Gap BUN Creatinine Estim Creat Clear Calc Est GFR (MDRD) Af Amer Est GFR (MDRD) Non-Af BUN/Creatinine Ratio Glucose Calcium POC Glucose 71 84 01/23/18 01/23/18 01/23/18 05:00 06:17 11:53 WBC RBC Hgb Hct MCV MCH MCHC RDW RDW Differential Plt Count MPV Immature Gran % (Auto) Neut % (Auto) Lymph % (Auto) [place] % (Auto) Eos % (Auto) Baso % (Auto) Absolute Neuts (auto) Absolute Lymphs (auto) Total Counted Sodium 143 Potassium 3.2 L Chloride 101 Carbon Dioxide 35.0 H Anion Gap 7 BUN 10 Creatinine 0.50 L Estim Creat Clear Calc 152.00 Est GFR (MDRD) Af Amer 219 Est GFR (MDRD) Non-Af 181 BUN/Creatinine Ratio 20.1 H Glucose 105 Calcium 8.6 POC Glucose 108 142 H 01/23/18 01/23/18 01/23/18 15:51 18:09 21:40 WBC RBC Hgb Hct MCV MCH MCHC RDW RDW Differential Plt Count MPV Immature Gran % (Auto) Neut % (Auto) Lymph % (Auto) [place] % (Auto) Eos % (Auto) Baso % (Auto) Absolute Neuts (auto) Absolute Lymphs (auto) Total Counted Sodium Potassium Chloride Carbon Dioxide Anion Gap BUN Creatinine Estim Creat Clear Calc Est GFR (MDRD) Af Amer Est GFR (MDRD) Non-Af BUN/Creatinine Ratio Glucose Calcium POC Glucose 159 H 152 H 146 H 01/24/18 05:25 WBC RBC Hgb Hct MCV MCH MCHC RDW RDW Differential Plt Count MPV Immature Gran % (Auto) Neut % (Auto) Lymph % (Auto) [place] % (Auto) Eos % (Auto) Baso % (Auto) Absolute Neuts (auto) Absolute Lymphs (auto) Total Counted Sodium Potassium Chloride Carbon Dioxide Anion Gap BUN Creatinine Estim Creat Clear Calc Est GFR (MDRD) Af Amer Est GFR (MDRD) Non-Af BUN/Creatinine Ratio Glucose Calcium POC Glucose 129 H Microbiology 01/23/18 16:05 Sputum, Tracheal Aspirate Gram Stain - Preliminary 01/23/18 13:20 Mucosa - Nasopharyngeal Respiratory Panel (PCR) - Final Clinical Impression(s) from Imaging Studies Chest X-Ray 01/22/18 12:47 IMPRESSION: 1. No airspace consolidation or pleural effusion. 2. Decreased retrocardiac left lower lobe atelectasis as compared to the prior study. 3. Removal of right arm PICC. 4. Stable tracheostomy. Electronically Signed: Jv Smith MD at 15:19 EST , Service support , Medical Necessity - Tobacco Use Smoking Status: Former smoker Assessment/Plan RECOMMENDATIONS: 1. Wean supplemental oxygen to maintain saturations 88-92%. 2. Continue scheduled aerosol treatments and diuretics. 3. Continue aggressive bronchopulmonary hygiene. 4. Start Levaquin with plans to complete a 7-day treatment course. 5. Precertification for return to retirement facility is pending. IMPRESSIONS: 1. Acute on chronic combined respiratory failure secondary to transient mucous plugging The patient presented to the emergency department with acute on chronic respiratory failure, which developed as a consequence of transient mucous plugging. This resolved with aggressive bronchopulmonary hygiene. Unclear why this level of care was unable to be provided the patient at his retirement facility. Regardless, upon admission to the hospital, the patient had return back to his baseline level from a respiratory perspective. He does not have evidence of an acute pulmonary infectious process on plain film chest imaging. However, a sputum culture did reveal the presence of gram-negative rods, likely indicative of underlying tracheobronchitis. 2. Gram-negative tracheal bronchitis Will start Levaquin with plans to complete a 7-day treatment course. 3. History of ischemic cardiomyopathy/heart failure Continue outpatient medical therapy. 4. Diabetes mellitus/chronic tobacco dependence/super morbid obesity/history of medical noncompliance/hypertension Complicates care, management, recovery and prognosis. Okay from my perspective to continue outpatient medical regimen. Physical therapy to continue to work with patient while admitted to the hospital. This note was generated with [employer] dictation software. It may contain incorrect words, spelling, and punctuation that were not noted in checking the note before signing. Code Visit Inpatient E&M: 48877 Subs Hosp L2
[2018-01-24] MEDS: Aspirin 81 MG TAB.CHEW GT (09:19)
[2018-01-24] MEDS: predniSONE 10 MG Tablet GT (09:19)
[2018-01-24] MEDS: Montelukast 10 MG Tablet GT (09:19)
[2018-01-24] MEDS: Famotidine 20 MG Tablet GT (09:19)
[2018-01-24] MEDS: Clopidogrel Bisulfate 75 MG Tablet GT (09:19)
[2018-01-24] MEDS: Escitalopram Oxalate 10 MG Tablet GT (09:19)
[2018-01-24] MEDS: Vital AF 1.2 Cal Liquid 1,000 ML 65 ML GT (09:27)
[2018-01-24 11:50] LABS: Bedside Glucose 149 mg/dL (70-110)
--- NOTE | 2018-01-24 12:01 | PN_ITS ---
Subjective: Patient seen still awaiting clearance precertification prior to transfer back to jail facility. He is also scheduled to undergo speech and swallowing eval this afternoon Objective: GENERAL: cooperative HEENT: Atraumatic; EYES; Anicteric, Normal Conjunctiva NECK; Trach collar in place. RESPIRATORY: Diminished to auscultation bilaterally, CARDIOVASCULAR: Regular S1 S2, GI: soft, non-tender, normoactive bowel sounds, : No Renal angle tenderness; EXTREMITIES: No clubbing, no cyanosis. MUSCULOSKELETAL: No Joint Tenderness; NEURO: Awake; no lateralizing signs. SKIN: Stasis dermatitis both lower extremities PSYCH; flat affect Vitals/I&O's: Vital Signs Temp Pulse Resp BP Pulse Ox 97.8 F 75 18 101/56 L 99 01/24/18 09:00 01/24/18 09:00 01/24/18 09:00 01/24/18 09:00 01/24/18 09:00 Oxygen Flow Rate (L/min) 10 Oxygen Delivery Method Trach Collar Weight: 138.1 kg Body Mass Index (BMI) 46.5 Finger Stick Blood Glucose 193 Intake and Output for Last 24 Hours 01/22/18 01/23/18 01/24/18 23:59 23:59 23:59 Intake Total 838 / 838 1731 / 1731 1089 / 1089 Output Total 1525 / 1525 1325 / 1325 175 / 175 Balance -687 / -687 406 / 406 914 / 914 Microbiology Past 72 Hours 01/23/18 16:05 Sputum, Tracheal Aspirate Gram Stain - Final 01/23/18 16:05 Sputum, Tracheal Aspirate Respiratory Culture - Preliminary Gram negative milli 01/23/18 13:20 Mucosa - Nasopharyngeal Respiratory Panel (PCR) - Final Laboratory Results 01/23/18 11:53: POC Glucose 142 H 01/23/18 15:51: POC Glucose 159 H 01/23/18 18:09: POC Glucose 152 H 01/23/18 21:40: POC Glucose 146 H 01/24/18 05:25: POC Glucose 129 H 01/24/18 11:46: POC Glucose 149 H Current Medications Acetaminophen (Tylenol Liquid) 650 mg GT Q6H PRN PRN PRN Reason: FEVER Last Admin: 01/23/18 06:14 Dose: 650 mg Albuterol Sulfate (Ventolin Aerosols) 2.5 mg INHALATION Q2H PRN PRN PRN Reason: Shortness of breath, wheezing Albuterol/Ipratropium (Duoneb) 3 ml INHALATION Q4HWA.RT [facility] Last Admin: 01/24/18 10:55 Dose: 3 ml Aspirin (Aspirin, Baby) 81 mg GT DAILYCM [facility] Last Admin: 01/24/18 09:19 Dose: 81 mg Atorvastatin Calcium (Lipitor) 40 mg GT QHS [facility] Last Admin: 01/23/18 21:47 Dose: 40 mg Bisacodyl (Dulcolax) 10 mg RECTAL DAILY PRN PRN PRN Reason: CONSTIPATION Carvedilol (Coreg) 3.125 mg PO BID [facility] Last Admin: 01/23/18 22:41 Dose: Not Given Clopidogrel Bisulfate (Plavix) 75 mg GT DAILY [facility] Last Admin: 01/24/18 09:19 Dose: 75 mg Enoxaparin Sodium (Lovenox) 40 mg SC DAILY@0600 [facility] Last Admin: 01/24/18 05:21 Dose: 40 mg Escitalopram Oxalate (Lexapro) 10 mg GT DAILY [facility] Last Admin: 01/24/18 09:19 Dose: 10 mg Famotidine (Pepcid) 20 mg GT DAILY [facility] Last Admin: 01/24/18 09:19 Dose: 20 mg Furosemide (Lasix) 80 mg GT TID [facility] Last Admin: 01/24/18 05:22 Dose: 80 mg Gabapentin (Neurontin) 400 mg GT TID [facility] Last Admin: 01/24/18 05:21 Dose: 400 mg Enteral Nutritional Formula (Vital Af 1.2 Jeremiah Liquid) 1,000 mls @ 65 mls/hr GT .[id number] [facility] Last Admin: 01/24/18 09:27 Dose: 65 mls/hr Insulin Glargine (Lantus (Bkc)) 35 units SC [facility] Last Admin: 01/24/18 05:55 Dose: Not Given Insulin Human Lispro (Humalog Kwikpen (Bkc)) 0 unit SC ACHS [facility]; Protocol Last Admin: 01/24/18 11:56 Dose: Not Given Lansoprazole (Prevacid) 30 mg GT DAILY [facility] Last Admin: 01/24/18 09:19 Dose: 30 mg Losartan Potassium (Cozaar) 25 mg GT DAILY [facility] Last Admin: 01/23/18 09:10 Dose: 25 mg Magnesium Hydroxide (Milk Of Magnesia) 30 ml GT DAILY PRN PRN Reason: Constipation Montelukast Sodium (Singulair) 10 mg GT DAILY [facility] Last Admin: 01/24/18 09:19 Dose: 10 mg Ondansetron HCl (Zofran) 4 mg IV Q8H PRN PRN PRN Reason: NAUSEA/VOMITING Potassium Bicarb/Potassium Chloride (Potassium Chl 25 Meq Eff (For Liquid)) 25 meq GT TID [facility] Last Admin: 01/24/18 05:21 Dose: 25 meq Prednisone () 10 mg GT DAILYCM [facility] Last Admin: 01/24/18 09:19 Dose: 10 mg Medical Necessity - Tobacco Use Smoking Status: Former smoker Assessment/Plan Patient is a 58-year-old gentleman who was on admission for almost a month discharged to a jail facility was brought back as a result of increasing work of breathing with suspected mucus plugging. Admitted to monitored bed for subsequent management 1. Acute on chronic hypoxic and hypercapnic respiratory failure due to suspected mucous plugging admitted to monitored bed consultation placed to Dr. Denny with pulmonary medicine plan is to continue pulmonary toileting in addition to supplemental oxygen to keep oxygen saturation greater than 90 2. Chronic systolic heart failure with an ejection fraction of 25% well compensated 3. Hypertension-blood pressure controlled, home medications continued with dose adjustment as needed 4. Diabetes mellitus type II: Blood glucose well controlled on on long acting insulin, Accu-Cheks a.c. and at bedtime and covered with sliding scale insulin 5. Hypokalemia corrected per protocol 6. Paroxysmal atrial fibrillation currently in sinus rhythm 7. Coronary artery disease with previous stent placement patient is on dual antiplatelet therapy with aspirin and Plavix in addition to losartan and atorvastatin 8. Morbid obesity with BMI of 46 9. Obstructive sleep apnea 10. Obesity hypoventilation syndrome 11. Dyslipidemia-patient is on statin therapy, continued at home dose 12. Physical deconditioning: Requested for PT OT eval and clinical social work therapist to assist with discharge planning 13. DVT prophylaxis SC Lovenox Active Medications Acetaminophen (Tylenol Liquid) 650 mg GT Q6H PRN PRN PRN Reason: FEVER Last Admin: 01/23/18 06:14 Dose: 650 mg Albuterol Sulfate (Ventolin Aerosols) 2.5 mg INHALATION Q2H PRN PRN PRN Reason: Shortness of breath, wheezing Albuterol/Ipratropium (Duoneb) 3 ml INHALATION Q4HWA.RT [facility] Last Admin: 01/23/18 15:02 Dose: 3 ml Aspirin (Aspirin, Baby) 81 mg GT DAILYCM [facility] Last Admin: 01/23/18 09:10 Dose: 81 mg Atorvastatin Calcium (Lipitor) 40 mg GT QHS [facility] Last Admin: 01/22/18 23:11 Dose: 40 mg Bisacodyl (Dulcolax) 10 mg RECTAL DAILY PRN PRN PRN Reason: CONSTIPATION Carvedilol (Coreg) 3.125 mg PO BID [facility] Last Admin: 01/23/18 09:10 Dose: 3.1249 mg Clopidogrel Bisulfate (Plavix) 75 mg GT DAILY [facility] Last Admin: 01/23/18 09:10 Dose: 75 mg Enoxaparin Sodium (Lovenox) 40 mg SC DAILY@0600 [facility] Last Admin: 01/23/18 05:53 Dose: 40 mg Escitalopram Oxalate (Lexapro) 10 mg GT DAILY [facility] Last Admin: 01/23/18 09:10 Dose: 10 mg Famotidine (Pepcid) 20 mg GT DAILY [facility] Last Admin: 01/23/18 09:10 Dose: 20 mg Furosemide (Lasix) 80 mg GT TID [facility] Last Admin: 01/23/18 14:55 Dose: 80 mg Gabapentin (Neurontin) 400 mg GT TID [facility] Last Admin: 01/23/18 14:55 Dose: 400 mg Enteral Nutritional Formula (Vital Af 1.2 Jeremiah Liquid) 1,000 mls @ 65 mls/hr GT .[id number] [facility] Last Admin: 01/23/18 07:55 Dose: Not Given Insulin Glargine (Lantus (Bkc)) 35 units SC 18 [facility] Last Admin: 01/23/18 06:18 Dose: Not Given Insulin Human Lispro (Humalog Kwikpen (Bkc)) 0 unit SC ACHS [facility]; Protocol Last Admin: 01/23/18 11:55 Dose: Not Given Lansoprazole (Prevacid) 30 mg GT DAILY [facility] Last Admin: 01/23/18 11:55 Dose: 30 mg Losartan Potassium (Cozaar) 25 mg GT DAILY [facility] Last Admin: 01/23/18 09:10 Dose: 25 mg Magnesium Hydroxide (Milk Of Magnesia) 30 ml GT DAILY PRN PRN Reason: Constipation Montelukast Sodium (Singulair) 10 mg GT DAILY [facility] Last Admin: 01/23/18 09:10 Dose: 10 mg Ondansetron HCl (Zofran) 4 mg IV Q8H PRN PRN PRN Reason: NAUSEA/VOMITING Potassium Bicarb/Potassium Chloride (Potassium Chl 25 Meq Eff (For Liquid)) 25 meq GT TID [facility] Last Admin: 01/23/18 14:55 Dose: 25 meq [facility] () [facility] Last Admin: 01/23/18 09:10 Dose: 10 mg Code Visit Inpatient E&M: 55234 Subs Hosp L2
--- NOTE | 2018-01-24 12:16 | CASEMGMT ---
MUKESH did talk with Bernadette at [facility] and she did start the pre-cert yesterday. Nyla FELTON [employer]
--- NOTE | 2018-01-24 13:00 | SP.MBSS_ITS ---
PRIMARY / SECONDARY DIAGNOSIS: dysphagia REFERRING PHYSICIAN: Dr. Chavez CURRENT DIET: NPO w/ alternative means of nutrition (PEG; Vital AF 1.2 at 35mL/hr.) DENTITION: present MENTAL STATUS: able to follow commands for participation in MBS RESPIRATORY STATUS: Tracheostomy tube in place (Shiley 8 cuffed; deflated) w/ 8L O2 via trach collar PREVIOUS MODIFIED BARIUM SWALLOW STUDY: n/a REASON FOR REFERRAL: Pt is a 58 YOM admitted to [facility] on 01/22/2018 d/t acute on chronic hypoxic respiratory failure likely due to excessive secretions and mucus plugging of the tracheostomy tube; very recent prolonged hospitalization resulting in tracheostomy and PEG tube placement. Per Pt, underwent Kelsey Blue Dye test at [facility] in [place] on /Tuesday prior to admission, states he ?passed?, though no further (or prior) PO trials / placement reported, w/ development of hypoxic respiratory failure over weekend. Pt strongly desires PO intake. MEDICAL HISTORY: History of anterolateral myocardial infarction; history of cardiac arrest, nicotine dependence, cigarettes, uncomplicated; Chronic systolic congestive heart failure, presence of stent in coronary artery, PCI/stent LAD w/ 4.0 x 32 mm Promus 2012 ; PCI/GISSEL to Prox LAD w/ 4.0 x 20 mm Promus 02/25/16 for instent restenosis, PTCA/GISSEL to LCX 06/29/2017; diabetes mellitus, type 2; venous stasis of lower extremity; ischemic cardiomyopathy, EF of 35% on Cath in February of 2014; 50% per echo 06/21/2017 STUDY FINDINGS: Patient participated in a Modified Barium Swallow (MBS) study on 01/24/2018. Dr. Izquierdo was the radiologist present for this evaluation. This study was recorded in the lateral view and images were sent to PACs for storage. The following consistencies were presented to this patient for analysis of oropharyngeal swallow function: thin liquid, nectar thickened liquid, pudding, and a regular textured, Suzy Doone cookie. Results of the MBS are as follows: PENETRATION / ASPIRATION SCALE (PLEITEZ): 1 = does not enter airway 2 = enters airway/above vocal folds/ejected 3 = enters airway/above vocal folds/not ejected 4 = enters airway/contacts vocal folds/ejected 5 = enters airway/contacts vocal folds/not ejected 6 = enters airway/below vocal folds/ejected 7 = enters airway/below vocal folds/not ejected despite effort 8 = enters airway/below vocal folds/no effort PENETRATION / ASPIRATION SCALE (SCORE): 1. Thin liquid teaspoon: 2 2. Thin liquid teaspoon: 5 unable to rule out silent aspiration d/t patient?s body habitus and fluoroscopy suite limitations which precluded adequate view 3. Thin liquid cup w/ patient attempting finger occlusion of trach: 5 suspect aspiration d/t cough, although unable to confirm under fluoroscopy d/t patient?s body habitus and fluoroscopy suite limitations which precluded adequate view 4. [place] thickened liquid cup w/ [employer] providing finger occlusion of trach: 1 5. [place] thickened liquid cup w/ [employer] providing finger occlusion of trach: 1 6. Thin liquid cup w/ [employer] providing finger occlusion of trach: 1 7. Pudding w/ [employer] providing finger occlusion of trach: 1 8. Cookie w/ [employer] providing finger occlusion of trach: 1 9. Thin liquid cup w/ [employer] providing finger occlusion of trach: 2 IMPRESSION: ORAL PHASE: LABIAL SEAL: interlabial escape, no progression to anterior lip TONGUE CONTROL DURING BOLUS MANIPULATION: cohesive bolus between tongue to palatal seal BOLUS PREPARATION / MASTICATION: timely and efficient chewing and mashing BOLUS TRANSPORT / LINGUAL MOTION: slowed tongue motion ORAL RESIDUE: residue collection on oral structures PHARYNGEAL PHASE: INITIATION OF PHARYNGEAL SWALLOW: bolus head in valleculae at first hyoid excursion SOFT PALATE ELEVATION: no bolus between soft palate and pharyngeal wall LARYNGEAL ELEVATION: partial superior movement of thyroid cartilage/partial approximation of arytenoids cartilage to epiglottic petiole ANTERIOR HYOID EXCURSION: complete anterior movement EPIGLOTTIC MOVEMENT: complete epiglottic inversion LARYNGEAL VESTIBULE CLOSURE AT HEIGHT OF SWALLOW: complete laryngeal vestibule closure with no air/contrast in laryngeal vestibule PHARYNGEAL STRIPPING WAVE: pharyngeal stripping wave present/complete PHARYNGOESOPHAGEAL SEGMENT OPENING: complete distension and complete duration with no obstruction of flow TONGUE BASE RETRACTION: trace column of contrast between tongue base and posterior pharyngeal wall PHARYNGEAL RESIDUE: trace residue within or on pharyngeal structures ESOPHAGEAL PHASE: ESOPHAGEAL BOLUS CLEARANCE IN THE UPRIGHT POSITION: could not view d/t patient?s body habitus and fluoroscopy suite limitations EFFECTS OF TREATMENT STRATEGIES ATTEMPTED: Double swallow = effective to clear oral/oropharyngeal residue Finger occlusion of trach = effective INTERPRETATION OF RESULTS: Patient presents with mild oropharyngeal dysphagia (R13.12) Oral phase primarily marked by slower lingual motion for A-P bolus transfer/clearance w/ oral residue retention (lingual/base of tongue) post deglutition. Use of a double swallow was effective to clear retained contrast. Pharyngeal phase primarily marked by a mild delay in pharyngeal swallow onset timing w/ bolus head reaching the valleculae at time prior to swallow onset. Suboptimal bolus location upon swallow onset did not impact overall swallow performance. Reduced closure of the airway during deglutition attributed to insufficient laryngeal vestibule closure/pressure d/t open trach resulting in penetration to the vocal folds w/ suspect aspiration of thin liquids. Aspiration is suspected d/t cough w/ contrast reaching the vocal folds, although unable to confirm under fluoroscopy d/t patient?s body habitus and fluoroscopy suite limitations which precluded adequate view of vocal folds/trachea. Use of finger occlusion when swallowing was effective to restore proper pressure to the swallow mechanism for adequate laryngeal vestibule closure/airway protection across all consistencies assessed. RECOMMENDATIONS: DIET TEXTURE RECOMMENDATIONS: Will recommend a regular textured, thin liquid diet w/ patient to remain NPO w/ all nutrition/hydration/medication via PEG, pending [employer] initiation of PO intake w/ direct supervision of initial meal COMPENSATORY STRATEGIES RECOMMENDED: Supervision, finger occlusion vs. PMSV for all swallows, reduced bolus volume, seated upright at 90 degrees during PO intake, remain upright for 30- 60 minutes post meal (GERD precaution) NEED FOR SKILLED SPEECH THERAPY SERVICES: This patient requires intensive skilled speech-language intervention for dysphagia targeting continued diet texture management w/ training and implementation of recommended compensatory strategies. ADDITIONAL COMMENTS/RECOMMENDATIONS: Results and recommendations were discussed with the Patient immediately following MBS completion, with the Patient verbalizing understanding and agreement with all recommendations and education provided. Results and recommendations conveyed to CECIL Mercado via telephone following MBS completion. IMAGE COUNT: [id number]
--- NOTE | 2018-01-24 13:10 | RAD_ITS ---
STUDY: SWALLOWING STUDY REASON FOR EXAM: Male, 58 years old. Dysphagia. TECHNIQUE: The examination was performed with Speech Pathology in attendance. Under fluoroscopic observation, the patient ingested thin barium, thick barium, barium pudding, and barium coated cracker. FLUOROSCOPY TIME: 2:07 minutes/seconds. 2006 images were obtained. RADIOLOGIST INVOLVEMENT: Radiologist was present and providing direct supervision. COMPARISON: None. FINDINGS: The following was observed during swallowing of the various mixtures of barium: Thin Barium: Transient penetration with ingestion of thin liquids. Thick Barium: There was no evidence of aspiration or laryngeal penetration. Barium Pudding: There was no evidence of aspiration or laryngeal penetration. Barium Coated Cracker: There was no evidence of aspiration or laryngeal penetration. RAD/Swallowing Function w/Video IMPRESSION: Transient penetration with ingestion of thin liquids. The swallow study findings were discussed with the patient by the speech pathologist at the conclusion of the examination. Please see speech pathology report for more information and recommendations. Electronically Signed: Akhil Izquierdo MD at 12:20 EST Tel [phone], Service support ,
[2018-01-24] MEDS: levoFLOXacin 750 MG Tablet GT (15:18)
[2018-01-24] MEDS: Insulin Lispro 100 UNIT/ML INSULN.PEN SC (17:11)
[2018-01-24 17:15] LABS: Bedside Glucose 157 mg/dL (70-110)
--- NOTE | 2018-01-24 18:49 | NURSING ---
Reviewed and agreed on all charting with Abdiel Worthington RN
[2018-01-24] MEDS: Atorvastatin Calcium 40 MG Tablet GT (22:41)
[2018-01-24] MEDS: Carvedilol 3.125 MG TABLET GT (22:45)
--- NOTE | 2018-01-24 23:14 | EKG12_ITS ---
Test Reason : Blood Pressure : / mmHG Vent. Rate : 077 BPM Atrial Rate : 077 BPM P-R Int : 160 ms QRS Dur : 092 ms QT Int : 400 ms P-R-T Axes : 000 027 147 degrees QTc Int : 452 ms Sinus rhythm with Premature atrial complexes Cannot rule out Anterior infarct , age undetermined ST & T wave abnormality, consider lateral ischemia Abnormal ECG When compared with ECG of 22-JAN-2018 13:53, MANUAL COMPARISON REQUIRED, DATA IS UNCONFIRMED Confirmed by MATILDA CABA, ELMER ([id number]), general expeditor SELINA TSANG ([id number]) on 01/27/2018 2:14:14 PM Referred By: Confirmed By:ELMER GREY MD
[2018-01-25] VITALS (9 sets, daily range): BP systolic 95–112; BP diastolic 53–66; PULSE 65–91; RESP 12–19; TEMP 36.5–36.7; O2SAT 94–97
[2018-01-25 00:11] LABS: Bedside Glucose 115 mg/dL (70-110)
[2018-01-25] MEDS: Vital AF 1.2 Cal Liquid 1,000 ML 65 ML GT (01:53)
--- NOTE | 2018-01-25 04:07 | NURSING ---
On 01/24/18 around 22:30, the pt entered a rhythm that resembled Atrial Flutter on the monitor. A STAT EKG was ordered. By the time the EKG was taken, the rhythm had subside. Nightshift hospitalist notified. BMP and Mg ordered for this AM.
[2018-01-25] MEDS: Enoxaparin 40 MG/0.4 ML Syringe SC (06:09)
[2018-01-25] MEDS: Furosemide 80 MG Tablet GT ×2 (06:11→13:21)
[2018-01-25 06:12] LABS: Anion Gap 10 (5-15); BUN 16 mg/dL (7-18); Calcium,Total 8.7 mg/dL (8.5-10.1); Chloride 97 mmol/L (98-107); Creatinine, Serum 0.57 mg/dL (0.70-1.30); EST Glomerular Filtration Rate 154 mL/min (>60); Est Glom Filt Rate - Afr Amer 187 mL/min (>60); Estimated Creatinine Clearance 133.33 ml/min; Glucose 120 mg/dL (74-106); Potassium 3.1 mmol/L (3.5-5.1); Sodium Level 138 mmol/L (136-145)
[2018-01-25] MEDS: levoFLOXacin 750 MG Tablet GT (06:12)
[2018-01-25] MEDS: Gabapentin 400 MG Capsule GT ×2 (06:12→13:21)
[2018-01-25] MEDS: Ipratropium/Albuterol Sulfate 3 ML AMPUL.NEB INHALATION ×2 (06:36→10:50)
[2018-01-25 07:01] LABS: Bedside Glucose 109 mg/dL (70-110)
--- NOTE | 2018-01-25 10:11 | CASEMGMT ---
Social Work Call received from [facility] and precert has been obtained. Pt can return to SNF when medically ready. MARIANELA Hall
[2018-01-25] MEDS: predniSONE 10 MG Tablet GT (10:25)
[2018-01-25] MEDS: Aspirin 81 MG TAB.CHEW GT (10:25)
[2018-01-25] MEDS: Carvedilol 3.125 MG TABLET GT (10:25)
[2018-01-25] MEDS: Clopidogrel Bisulfate 75 MG Tablet GT (10:27)
[2018-01-25] MEDS: Famotidine 20 MG Tablet GT (10:27)
[2018-01-25] MEDS: Escitalopram Oxalate 10 MG Tablet GT (10:27)
[2018-01-25] MEDS: Losartan Potassium 25 MG Tablet GT (10:27)
[2018-01-25] MEDS: Montelukast 10 MG Tablet GT (10:28)
[2018-01-25] MEDS: Magnesium Hydroxide 30 ML UDC GT (10:31)
[2018-01-25 11:31] LABS: Bedside Glucose 102 mg/dL (70-110)
--- NOTE | 2018-01-25 12:39 | TREXTCAR_ITS ---
- Diet 01/25/18 11:27 Diabetic [Diet: Calorie Controlled] Food consistency:: Mechanical Soft/Ground Liquid Consistency:: Regular/Thin Dietary Modifications:: Mechanical Soft Diet Is pt able to select menu?: Yes Diet Comments: Supervision; finger occlusion w/ swallow; limit meals 10 min; chair only How many daily calories?: 1800 calorie - Wound(s) Lt outer leg purple symmetrical [place] Wound Type: Pressure Injury left lateral lower leg Wound Type: Skin Tear Dressing Change: opsite - Therapies Physical Therapy: Eval and Treat Occupational Therapy: Eval and Treat Speech Therapy: Eval and Treat - Allergies/Procedures Done in Hospital Allergies/Adverse Reactions: Allergies adhesive tape Adverse Reaction (Verified 11/10/17 12:17) Rash - Type of Care/Length of Stay Estimated LOS: More Than 30 Days Type of Care Needed: Skilled Rehab Potential: Fair Prognosis: Fair - Additional Orders/Day of Discharge Day of Discharge: 01/25/18 - Dietary and Speech Recommendations Dietitian Recommendations/Changes: Suggest increase Vital AF 1.2 Jeremiah as tolerated to goal rate 70 ml/hr with 60 ml water flush 4 x daily to provide 2016 kcal, 126 gm protein, 1602 ml free water per day. Continue NPO status. Weigh daily. - Follow Up Care Primary Care Physician: Tio Parker MD [Primary Care Provider] - Please follow up with your Primary Care Physician in: in 2-3 weeks
--- NOTE | 2018-01-25 12:39 | PCM.DC.SUM ---
Discharge Date and Diagnosis Date of Admission: 01/22/18 Date of Discharge: 01/25/18 - Primary Discharge Diagnosis Acute on chronic hypoxic and hypercapnic respiratory failure due to suspected mucous plugging - Secondary Discharge Diagnosis Chronic Problems (Last Updated 01/22/18 @ 13:13 by Braden Hernandez MD) History of anterolateral myocardial infarction (Chronic 05/03/12) History of cardiac arrest (Chronic 06/22/17) Nicotine dependence, cigarettes, uncomplicated (Chronic) Chronic systolic congestive heart failure (Chronic) Presence of stent in coronary artery (Chronic 06/29/17) PCI/stent LAD w/ 4.0 x 32 mm Promus 2012 ; PCI/GISSEL to Prox LAD w/ 4.0 x 20 mm Promus 02/25/16 for instent restenosis; PTCA/GISSEL to LCX 06/29/2017 DM2 (diabetes mellitus, type 2) (Chronic) Venous stasis of lower extremity (Chronic) Ischemic cardiomyopathy (Chronic) EF of 35% on Cath in February of 2014; 50% per echo 06/21/2017 Hospital Course and Treatment Consultations 01/22/18 12:47 Consult: Onc/Wound/missionary coordinator Routine Comment: 01/22/18 13:00 Consult: Onc/Wound/missionary coordinator Routine Comment: Reason for Consult:: LLE tender purple wound Operations: None Summary of Care Provided: Patient is a 58-year-old gentleman who was on admission for almost a month discharged to a group home facility was brought back as a result of increasing work of breathing with suspected mucus plugging. Admitted to monitored bed for subsequent management 1. Acute on chronic hypoxic and hypercapnic respiratory failure due to suspected mucous plugging admitted to monitored bed consultation placed to Dr. Denny with pulmonary medicine plan is to continue pulmonary toileting in addition to supplemental oxygen to keep oxygen saturation greater than 90 2. Acute tracheobronchitis with Serratia patient was discharged on Levaquin 3. Chronic systolic heart failure with an ejection fraction of 25% well compensated 4 Hypertension-blood pressure controlled, home medications continued with dose adjustment as needed 5. Diabetes mellitus type II: Blood glucose well controlled on on long acting insulin, Accu-Cheks a.c. and at bedtime and covered with sliding scale insulin 6. Paroxysmal atrial fibrillation currently in sinus rhythm 7. Coronary artery disease with previous stent placement patient is on dual antiplatelet therapy with aspirin and Plavix in addition to losartan and atorvastatin 8. Morbid obesity with BMI of 46 9. Obstructive sleep apnea 10. Obesity hypoventilation syndrome 11. Dyslipidemia-patient is on statin therapy, continued at home dose 12. Physical deconditioning: Requested for PT OT eval and director of social work to assist with discharge planning 13. DVT prophylaxis SC Lovenox 14. Hypokalemia corrected per protocol Objective: GENERAL: cooperative HEENT: Atraumatic; EYES; Anicteric, Normal Conjunctiva NECK; Trach collar in place. RESPIRATORY: Diminished to auscultation bilaterally, CARDIOVASCULAR: Regular S1 S2, GI: soft, non-tender, normoactive bowel sounds, NEURO: Awake; no lateralizing signs. PSYCH; flat affect - Physical Exam Vital Signs Temp Pulse Resp BP Pulse Ox 98.0 F 89 19 H 95/53 L 97 01/25/18 10:15 01/25/18 11:08 01/25/18 10:50 01/25/18 10:15 01/25/18 10:15 Oxygen Flow Rate (L/min) 10 Oxygen Delivery Method Trach Collar Weight: 144.5 kg Body Mass Index (BMI) 46.5 Finger Stick Blood Glucose 193 Intake and Output for Last 24 Hours 01/23/18 01/24/18 01/25/18 23:59 23:59 23:59 Intake Total 1731 / 1731 3693 / 3693 2044 / 2044 Output Total 1325 / 1325 1550 / 1550 2350 / 2350 Balance 406 / 406 2143 / 2143 -306 / -306 Microbiology Past 72 Hours 01/23/18 16:05 Gram Stain - Final Sputum, Tracheal Aspirate Respiratory Culture - Final Serratia marcescens 01/23/18 13:20 Respiratory Panel (PCR) - Final Mucosa - Nasopharyngeal Laboratory Tests Past 24 Hrs 01/25/18 05:19 Sodium 138 Potassium 3.1 L Chloride 97 L Carbon Dioxide 31.0 Anion Gap 10 BUN 16 Creatinine 0.57 L Estim Creat Clear Calc 133.33 Est GFR (MDRD) Af Amer 187 Est GFR (MDRD) Non-Af 154 BUN/Creatinine Ratio 28.0 H Glucose 120 H Calcium 8.7 Magnesium 2.0 POC Glucose 01/25/18 01/25/18 01/24/18 11:27 06:54 22:23 POC Glucose 102 109 115 H 01/24/18 17:05 POC Glucose 157 H Home Medications: Medications to take at Discharge Clopidogrel Bisulfate [Plavix] 75 mg PO DAILY 06/20/17 Gabapentin [Neurontin] 400 mg PO TID 06/20/17 Montelukast [Singulair] 10 mg PO DAILY 06/20/17 fluticasone-vilanterol 1 puff INHALATION QDAY 07/27/17 pantoprazole 20 mg tablet,delayed release 20 mg PO QDAY 07/27/17 Prednisone 10 mg PO DAILY 12/12/17 Acetaminophen Liquid [Tylenol Liquid] 650 mg GT Q6H PRN PRN udc 01/11/18 Albuterol Aerosols [Ventolin Aerosols] 2.5 mg INHALATION Q2H PRN PRN vial.neb. 01/11/18 Hydrocortisone 2.5% Crm [Hytone] 1 applic TOPICAL TID PRN PRN tube 01/11/18 Insulin Lispro [Humalog KwikPen] See Protocol SC ,, insuln.pen 01/11/18 Magnesium Hydroxide [Milk Of Magnesia] 30 ml PO DAILY PRN PRN udc 01/11/18 Albuterol Aerosols [Ventolin Aerosols] 2.5 mg INHALATION Q6HWA.RT PRN 01/22/18 Aspirin [Aspirin, Baby] 81 mg GT DAILY 01/22/18 Atorvastatin Calcium [Lipitor] 40 mg GT QHS 01/22/18 Bisacodyl [Dulcolax] 5 mg PO DAILY PRN 01/22/18 Bisacodyl [Dulcolax] 10 mg RECTAL DAILY PRN PRN 01/22/18 Carvedilol [Coreg (Beta Kareem)] 3.125 mg PO BID 01/22/18 Chlorhexidine 15 ml PO BID 01/22/18 Escitalopram Oxalate [Lexapro] 10 mg PO DAILY 01/22/18 Furosemide [Lasix] 80 mg PO TID 01/22/18 Insulin Glargine [Lantus SoloStar Pen] 35 units SC 01/22/18 Losartan Potassium [Cozaar] 25 mg PO DAILY 01/22/18 Potassium Cloride Effervescent [Potassium Chl 25 Meq Eff (For Liquid)] 25 meq GT TID 01/22/18 Ranitidine HCl 150 mg GT DAILY 01/22/18 levoFLOXacin tablet [Levaquin tablet] 750 mg GT DAILY@0600 #7 tab 01/25/18 Following Prescrptions Were Given to Patient: levoFLOXacin tablet [Levaquin tablet] 750 mg GT DAILY@0600 #7 tab Primary Care Physician: Tio Parker MD [Primary Care Provider] - Please follow up with your Primary Care Physician in: in 2-3 weeks [facility]position[facility] facility Minutes spent on discharge:: 45 Patient Condition:: Stable Medical Necessity - Tobacco Use Smoking Status: Former smoker Meaningful Use Info Meaningful Use Diagnoses (Choose all that apply): None applicable Code Visit Inpatient E&M: 90384 Disch Hosp
--- NOTE | 2018-01-25 13:04 | CASEMGMT ---
Social Work Pt ready for d/c on this date. SW met with pt in room and he is agreeable to transfer to [facility] and would like to use [facility], 2:00 pickup scheduled. Orders faxed to [facility]. Pt nurse and Bernadette at [facility] notified of d/c time. Phone call, with pt permission, to pt IRWIN Vega and VM left notifying of d/c. No further d/c needs. MARIANELA Hall
--- NOTE | 2018-01-25 13:48 | NURSING ---
Report called to [facility]. Report given to Cha JACOB
--- NOTE | 2018-01-25 14:25 | NURSING ---
Reviewed and agreed on all charting with Abdiel Worthington RN
--- NOTE | 2018-01-25 14:37 | PCM.PROGNOTE ---
Subjective: The patient was seen and examined at the bedside this morning. Events from the last 24 hours have been reviewed. The patient is currently afebrile, hemodynamically stable and maintaining appropriate oxygen saturations on 35% trach collar. The patient is doing well clinically with no overnight events noted. Objective: The patient's most recent lab work, culture data and imaging studies have all been personally reviewed. Sputum culture was notable for 2+ Serratia marcescens, which was largely pansensitive. - Physical Exam General: Alert, Cooperative, No apparent distress HEENT: Atraumatic, PERRLA, Normocephalic Oral: No Gingival or Mucosal Lesions/ Ulcerations Neck: Supple, No Nodes, Trachea Midline, - - Trach site is C/D/I Lungs: No rhonchi, No wheeze, No rales, Diminished Cardiovascular: Regular rate, Regular Rhythm, Normal S1, Normal S2, No murmurs Abdomen: Bowel Sounds Present, Soft, Non Tender, Non-Distended, Obese Extremities: No clubbing, No cyanosis, No edema Skin: - - No significant change from previous. Musculoskeletal: No Tenderness to Palpation of Joints or Extremities, No Muscle Wasting Lymphatic: No Cervical, Supraclavicular, or Inguinal Adenopathy Neurological: Cranial nerves II-XII grossly intact, Neuro grossly intact Psych/Mental Status: Alert and oriented to time, place, person, mood and affect Vital Signs Temp Pulse Resp BP Pulse Ox 36.7 C 91 19 H 97/54 L 97 01/25/18 10:15 01/25/18 13:17 01/25/18 10:50 01/25/18 13:17 01/25/18 10:15 Oxygen Flow Rate (L/min) 10 Oxygen Delivery Method Trach Collar Weight: 318 lb 9.087 oz Body Mass Index (BMI) 46.5 Finger Stick Blood Glucose 193 Intake and Output for Last 24 Hours 01/23/18 01/24/18 01/25/18 23:59 23:59 23:59 Intake Total 1731 / 1731 3693 / 3693 2044 / 2044 Output Total 1325 / 1325 1550 / 1550 2350 / 2350 Balance 406 / 406 2143 / 2143 -306 / -306 Microbiology Past 72 Hours 01/23/18 16:05 Gram Stain - Final Sputum, Tracheal Aspirate Respiratory Culture - Final Serratia marcescens 01/23/18 13:20 Respiratory Panel (PCR) - Final Mucosa - Nasopharyngeal Laboratory Tests Past 24 Hrs 01/25/18 05:19 Sodium 138 Potassium 3.1 L Chloride 97 L Carbon Dioxide 31.0 Anion Gap 10 BUN 16 Creatinine 0.57 L Estim Creat Clear Calc 133.33 Est GFR (MDRD) Af Amer 187 Est GFR (MDRD) Non-Af 154 BUN/Creatinine Ratio 28.0 H Glucose 120 H Calcium 8.7 Magnesium 2.0 POC Glucose 01/25/18 01/25/18 01/24/18 11:27 06:54 22:23 POC Glucose 102 109 115 H 01/24/18 17:05 POC Glucose 157 H Clinical Impression(s) from Imaging Studies Chest X-Ray 01/22/18 12:47 IMPRESSION: 1. No airspace consolidation or pleural effusion. 2. Decreased retrocardiac left lower lobe atelectasis as compared to the prior study. 3. Removal of right arm PICC. 4. Stable tracheostomy. Electronically Signed: Jv Smith MD at 15:19 EST , Service support , Medical Necessity - Tobacco Use Smoking Status: Former smoker Assessment/Plan RECOMMENDATIONS: 1. Wean supplemental oxygen to maintain saturations 88-92%. 2. Continue scheduled aerosol treatments and diuretics. 3. Continue aggressive bronchopulmonary hygiene. 4. Start Levaquin with plans to complete a 7-day treatment course. 5. Follow-up in the pulmonary medicine office as scheduled. IMPRESSIONS: 1. Acute on chronic combined respiratory failure secondary to transient mucous plugging The patient presented to the emergency department with acute on chronic respiratory failure, which developed as a consequence of transient mucous plugging. This resolved with aggressive bronchopulmonary hygiene. Unclear why this level of care was unable to be provided to the [facility]. Regardless, upon admission to the hospital, the patient had return back to his baseline level from a respiratory perspective. He does not have evidence of an acute pulmonary infectious process on plain film chest imaging. However, a sputum culture did reveal the presence of gram-negative rods, likely indicative of underlying tracheobronchitis. 2. Gram-negative tracheal bronchitis Continue Levaquin with plans to complete a 7-day treatment course. 3. History of ischemic cardiomyopathy/heart failure Continue outpatient medical therapy. 4. Diabetes mellitus/chronic tobacco dependence/super morbid obesity/history of medical noncompliance/hypertension Complicates care, management, recovery and prognosis. Okay from my perspective to continue outpatient medical regimen. Physical therapy to continue to work with patient while admitted to the hospital. This note was generated with [employer] dictation software. It may contain incorrect words, spelling, and punctuation that were not noted in checking the note before signing. Code Visit Inpatient E&M: 97919 Subs Hosp L2
--- NOTE | 2018-01-25 14:41 | PN_ITS ---
Subjective: The patient was seen and examined at the bedside this morning. Events from the last 24 hours have been reviewed. The patient is currently afebrile, hemodynamically stable and maintaining appropriate oxygen saturations on 35% trach collar. The patient is doing well clinically with no overnight events noted. Objective: The patient's most recent lab work, culture data and imaging studies have all been personally reviewed. Sputum culture was notable for 2+ Serratia marcescens, which was largely pansensitive. - Physical Exam General: Alert, Cooperative, No apparent distress HEENT: Atraumatic, PERRLA, Normocephalic Oral: No Gingival or Mucosal Lesions/ Ulcerations Neck: Supple, No Nodes, Trachea Midline, - - Trach site is C/D/I Lungs: No rhonchi, No wheeze, No rales, Diminished Cardiovascular: Regular rate, Regular Rhythm, Normal S1, Normal S2, No murmurs Abdomen: Bowel Sounds Present, Soft, Non Tender, Non-Distended, Obese Extremities: No clubbing, No cyanosis, No edema Skin: - - No significant change from previous. Musculoskeletal: No Tenderness to Palpation of Joints or Extremities, No Muscle Wasting Lymphatic: No Cervical, Supraclavicular, or Inguinal Adenopathy Neurological: Cranial nerves II-XII grossly intact, Neuro grossly intact Psych/Mental Status: Alert and oriented to time, place, person, mood and affect Vital Signs Temp Pulse Resp BP Pulse Ox 36.7 C 91 19 H 97/54 L 97 01/25/18 10:15 01/25/18 13:17 01/25/18 10:50 01/25/18 13:17 01/25/18 10:15 Oxygen Flow Rate (L/min) 10 Oxygen Delivery Method Trach Collar Weight: 318 lb 9.087 oz Body Mass Index (BMI) 46.5 Finger Stick Blood Glucose 193 Intake and Output for Last 24 Hours 01/23/18 01/24/18 01/25/18 23:59 23:59 23:59 Intake Total 1731 / 1731 3693 / 3693 2044 / 2044 Output Total 1325 / 1325 1550 / 1550 2350 / 2350 Balance 406 / 406 2143 / 2143 -306 / -306 Microbiology Past 72 Hours 01/23/18 16:05 Gram Stain - Final Sputum, Tracheal Aspirate Respiratory Culture - Final Serratia marcescens 01/23/18 13:20 Respiratory Panel (PCR) - Final Mucosa - Nasopharyngeal Laboratory Tests Past 24 Hrs 01/25/18 05:19 Sodium 138 Potassium 3.1 L Chloride 97 L Carbon Dioxide 31.0 Anion Gap 10 BUN 16 Creatinine 0.57 L Estim Creat Clear Calc 133.33 Est GFR (MDRD) Af Amer 187 Est GFR (MDRD) Non-Af 154 BUN/Creatinine Ratio 28.0 H Glucose 120 H Calcium 8.7 Magnesium 2.0 POC Glucose 01/25/18 01/25/18 01/24/18 11:27 06:54 22:23 POC Glucose 102 109 115 H 01/24/18 17:05 POC Glucose 157 H Clinical Impression(s) from Imaging Studies Chest X-Ray 01/22/18 12:47 IMPRESSION: 1. No airspace consolidation or pleural effusion. 2. Decreased retrocardiac left lower lobe atelectasis as compared to the prior study. 3. Removal of right arm PICC. 4. Stable tracheostomy. Electronically Signed: Jv Smith MD at 15:19 EST , Service support , Medical Necessity - Tobacco Use Smoking Status: Former smoker Assessment/Plan RECOMMENDATIONS: 1. Wean supplemental oxygen to maintain saturations 88-92%. 2. Continue scheduled aerosol treatments and diuretics. 3. Continue aggressive bronchopulmonary hygiene. 4. Start Levaquin with plans to complete a 7-day treatment course. 5. Follow-up in the pulmonary medicine office as scheduled. IMPRESSIONS: 1. Acute on chronic combined respiratory failure secondary to transient mucous plugging The patient presented to the emergency department with acute on chronic respiratory failure, which developed as a consequence of transient mucous plugging. This resolved with aggressive bronchopulmonary hygiene. Unclear why this level of care was unable to be provided to the patient at his [facility] facility. Regardless, upon admission to the hospital, the patient had return back to his baseline level from a respiratory perspective. He does not have evidence of an acute pulmonary infectious process on plain film chest imaging. However, a sputum culture did reveal the presence of gram-negative rods, likely indicative of underlying tracheobronchitis. 2. Gram-negative tracheal bronchitis Continue Levaquin with plans to complete a 7-day treatment course. 3. History of ischemic cardiomyopathy/heart failure Continue outpatient medical therapy. 4. Diabetes mellitus/chronic tobacco dependence/super morbid obesity/history of medical noncompliance/hypertension Complicates care, management, recovery and prognosis. Okay from my perspective to continue outpatient medical regimen. Physical therapy to continue to work with patient while admitted to the hospital. This note was generated with [employer] dictation software. It may contain incorrect words, spelling, and punctuation that were not noted in checking the note before signing. Code Visit Inpatient E&M: 38490 Subs Hosp L2
--- NOTE | 2018-02-21 07:27 | CASEMGMT ---
Received voicemail from Iraida Gruber ( ), Senior Investigative Nurse with [facility], inquiring if patient was at [facility] at the time he on 01/27/18. Returned call to Iraida, ganesh left with information that patient admitted 01/22, discharged to SNF on 01/25. Rhianna Pritchett LPN Clinical Support
--- OUTSIDE RECORDS SUMMARY | 2018-04-26 13:15 | XMS RPT_ITS ---
:1960 Author Organization OHIP Support Name Relationship Address Phone CREBYAZMIN, VILLA Unavailable Unavailable + D Unavailable Unavailable Unavailable CAMI BRANDEE Unavailable Unavailable + [place] [address] CREBBS, VILLA Unavailable Unavailable + D Unavailable Unavailable Unavailable CAMI BRANDEE Unavailable Unavailable + [place] [address] CREBBS, VILLA Unavailable Unavailable + D Unavailable Unavailable Unavailable CAMI BRANDEE Unavailable Unavailable + [place] [address] CREBBS, VILLA Unavailable Unavailable + D Unavailable Unavailable Unavailable CAMI BRANDEE Unavailable Unavailable + [place] [address] CREBBS, VILLA Unavailable Unavailable + D Unavailable Unavailable Unavailable CAMI, BRANDEE Unavailable Unavailable + [place] [address] CREBBS, VILLA Unavailable Unavailable + D Unavailable Unavailable Unavailable CAMI, BRANDEE Unavailable Unavailable + [place] [address] CREBBS, VILLA Unavailable Unavailable + D Unavailable Unavailable Unavailable CAMI, BRANDEE Unavailable Unavailable + [place] [address] CREBBS, VILLA Unavailable Unavailable + D Unavailable Unavailable Unavailable CAMI, BRANDEE Unavailable Unavailable + [place] [address] CREBBS, VILLA Unavailable Unavailable + D Unavailable Unavailable Unavailable CAMI, BRANDEE Unavailable Unavailable + [place] [address] CREBBS, VILLA Unavailable Unavailable + D Unavailable Unavailable Unavailable CAMI, BRANDEE Unavailable Unavailable + [place] [address] Raj, Villa Unavailable Unavailable + D Unavailable Unavailable Unavailable CAMI, BRANDEE Unavailable . + [place] [address] CREBBS, VILLA Unavailable Unavailable + D Unavailable Unavailable Unavailable CAMI, BRANDEE Unavailable Unavailable + [place] [address] D Unavailable Unavailable Unavailable CAMI, BRANDEE Unavailable Unavailable + [place] [address] D Unavailable Unavailable Unavailable CAMI, BRANDEE Unavailable Unavailable + [place] [address] D Unavailable Unavailable Unavailable CAMI, BRANDEE Unavailable Unavailable + [place] [address] D Unavailable Unavailable Unavailable CAMI, BRANDEE Unavailable Unavailable + [place] [address] D Unavailable Unavailable Unavailable CAMI, BRANDEE Unavailable Unavailable + [place] [address] D Unavailable Unavailable Unavailable CAMI, BRANDEE Unavailable Unavailable + [place] [address] CREBBS, VILLA Unavailable Unavailable + D Unavailable Unavailable Unavailable CAMI, BRANDEE Unavailable Unavailable + [place] [address] CREBBS, VILLA Unavailable Unavailable + D Unavailable Unavailable Unavailable CAMI, BRANDEE Unavailable Unavailable + [place] [address] CREBBS, VILLA Unavailable Unavailable + D Unavailable Unavailable Unavailable CAMI, BRANDEE Unavailable Unavailable + [place] [address] CREBBS, VILLA Unavailable Unavailable + D Unavailable Unavailable Unavailable CAMI, BRANDEE Unavailable Unavailable + [place] [address] CREBBS, VILLA Unavailable Unavailable + D Unavailable Unavailable Unavailable CAMI, BRANDEE Unavailable Unavailable + [place] [address] CREBBS, VILLA Unavailable Unavailable + D Unavailable Unavailable Unavailable CAMI, BRANDEE Unavailable Unavailable + [place] [address] CREBBS, VILLA Unavailable Unavailable + D Unavailable Unavailable Unavailable CAMI, BRANDEE Unavailable Unavailable + [place] [address] CREBBS, VILLA Unavailable Unavailable + D Unavailable Unavailable Unavailable CAMI, BRANDEE Unavailable Unavailable + [place] [address] CREBBS, VILLA Unavailable Unavailable + D Unavailable Unavailable Unavailable CAMI, BRANDEE Unavailable Unavailable + [place] [address] CREBBS, VILLA Unavailable Unavailable + D Unavailable Unavailable Unavailable CAMI, BRANDEE Unavailable Unavailable + [place] [address] CREBBS, VILLA Unavailable Unavailable + D Unavailable Unavailable Unavailable CAMI, BRANDEE Unavailable Unavailable + [place] [address] CREBBS, VILLA Unavailable Unavailable + D Unavailable Unavailable Unavailable CAMI, BRANDEE Unavailable Unavailable + [place] [address] CREBBS, VILLA Unavailable Unavailable + D Unavailable Unavailable Unavailable CAMI, BRANDEE Unavailable Unavailable + [place] [address] CREBBS, VILLA Unavailable Unavailable + D Unavailable Unavailable Unavailable CAMI, BRANDEE Unavailable Unavailable + [place] [address] CREBBS, VILLA Unavailable Unavailable + D Unavailable Unavailable Unavailable CAMI, BRANDEE Unavailable Unavailable + [place] [address] CREBBS, VILLA Unavailable Unavailable + D Unavailable Unavailable Unavailable CAMI, BRANDEE Unavailable Unavailable + [place] [address] CREBBS, VILLA Unavailable Unavailable + D Unavailable Unavailable Unavailable CAMI, BRANDEE Unavailable Unavailable + [place] [address] CREBBS, VILLA Unavailable Unavailable + D Unavailable Unavailable Unavailable CAMI, BRANDEE Unavailable Unavailable + [place] [address] CREBBS, VILLA Unavailable Unavailable + D Unavailable Unavailable Unavailable CAMI, BRANDEE Unavailable Unavailable + [place] [address] CREBBS, VILLA Unavailable Unavailable + D Unavailable Unavailable Unavailable CAMI, BRANDEE Unavailable Unavailable + [place] [address] CREBBS, VILLA Unavailable Unavailable + D Unavailable Unavailable Unavailable CAMI, BRANDEE Unavailable Unavailable + [place] [address] CREBBS, VILLA Unavailable Unavailable + D Unavailable Unavailable Unavailable CAMI, BRANDEE Unavailable Unavailable + [place] [address] CREBBS, VILLA Unavailable Unavailable + D Unavailable Unavailable Unavailable CAMI, BRANDEE Unavailable Unavailable + [place] [address] CREBBS, VILLA Unavailable Unavailable + D Unavailable Unavailable Unavailable CAMI, BRANDEE Unavailable Unavailable + [place] [address] CREBBS, VILLA Unavailable Unavailable + D Unavailable Unavailable Unavailable CAMI, BRANDEE Unavailable Unavailable + [place] [address] CREBBS, VILLA Unavailable Unavailable + D Unavailable Unavailable Unavailable CAMI, BRANDEE Unavailable Unavailable + [place] [address] CREBBS, VILLA Unavailable Unavailable + D Unavailable Unavailable Unavailable CAMI, BRANDEE Unavailable Unavailable + [place] [address] CREBBS, VILLA Unavailable Unavailable + D Unavailable Unavailable Unavailable CAMI, BRANDEE Unavailable Unavailable + [place] [address] CREBBS, VILLA Unavailable Unavailable + D Unavailable Unavailable Unavailable CAMI, BRANDEE Unavailable Unavailable + [place] [address] CREBBS, VILLA Unavailable Unavailable + D Unavailable Unavailable Unavailable CAMI, BRANDEE Unavailable Unavailable + [place] [address] CREBBS, VILLA Unavailable Unavailable + D Unavailable Unavailable Unavailable CAMI, BRANDEE Unavailable Unavailable + [place] [address] CREBBS, VILLA Unavailable Unavailable + D Unavailable Unavailable Unavailable CAMI, BRANDEE Unavailable Unavailable + [place] [address] CREBBS, VILLA Unavailable Unavailable + D Unavailable Unavailable Unavailable CAMI, BRANDEE Unavailable Unavailable + [place] [address] CREBBS, VILLA Unavailable Unavailable + D Unavailable Unavailable Unavailable CAMI, BRANDEE Unavailable Unavailable + [place] [address] CREBBS, VILLA Unavailable Unavailable + D Unavailable Unavailable Unavailable CAMI, BRANDEE Unavailable Unavailable + [place] [address] CREBBS, VILLA Unavailable Unavailable + D Unavailable Unavailable Unavailable CAMI, BRANDEE Unavailable Unavailable + [place] [address] CREBBS, VILLA Unavailable Unavailable + D Unavailable Unavailable Unavailable CAMI, BRANDEE Unavailable Unavailable + [place] [address] CREBBS, VILLA Unavailable Unavailable + D Unavailable Unavailable Unavailable CAMI, BRANDEE Unavailable Unavailable + [place] [address] CREBBS, VILLA Unavailable Unavailable + D Unavailable Unavailable Unavailable CAMI, BRANDEE Unavailable Unavailable + [place] [address] CREBBS, VILLA Unavailable Unavailable + D Unavailable Unavailable Unavailable CAMI, BRANDEE Unavailable Unavailable + [place] [address] CREBBS, VILLA Unavailable Unavailable + D Unavailable Unavailable Unavailable CAMI, BRANDEE Unavailable Unavailable + [place] [address] CREBBS, VILLA Unavailable Unavailable + D Unavailable Unavailable Unavailable CAMI, BRANDEE Unavailable Unavailable + [place] [address] CREBBS, VILLA Unavailable Unavailable + D Unavailable Unavailable Unavailable CAMI, BRANDEE Unavailable Unavailable + [place] [address] CREBBS, VILLA Unavailable Unavailable + D Unavailable Unavailable Unavailable CAMI, BRANDEE Unavailable Unavailable + [place] [address] CREBBS, VILLA Unavailable Unavailable + D Unavailable Unavailable Unavailable CAMI, BRANDEE Unavailable Unavailable + [place] [address] CREBBS, VILLA Unavailable Unavailable + D Unavailable Unavailable Unavailable CAMI, BRANDEE Unavailable Unavailable + [place] [address] CREBBS, VILLA Unavailable Unavailable + D Unavailable Unavailable Unavailable CAMI, BRANDEE Unavailable Unavailable + [place] [address] CREBBS, VILLA Unavailable Unavailable + D Unavailable Unavailable Unavailable CAMI, BRANDEE Unavailable Unavailable + [place] [address] CREBBS, VILLA Unavailable Unavailable + D Unavailable Unavailable Unavailable CAMI, BRANDEE Unavailable Unavailable + [place] [address] CREBBS, VILLA Unavailable Unavailable + D Unavailable Unavailable Unavailable CAMI, BRANDEE Unavailable Unavailable + [place] [address] CREBBS, VILLA Unavailable Unavailable + D Unavailable Unavailable Unavailable CAMI, BRANDEE Unavailable Unavailable + [place] [address] CREBBS, VILLA Unavailable Unavailable + D Unavailable Unavailable Unavailable CAMI, BRANDEE Unavailable Unavailable + [place] [address] CREBBS, VILLA Unavailable Unavailable + D Unavailable Unavailable Unavailable CAMI, BRANDEE Unavailable Unavailable + [place] [address] CREBBS, VILLA Unavailable Unavailable + D Unavailable Unavailable Unavailable CAMI, BRANDEE Unavailable Unavailable + [place] [address] CREBBS, VILLA Unavailable Unavailable + D Unavailable Unavailable Unavailable CAMI, BRANDEE Unavailable Unavailable + [place] [address] CREBBS, VILLA Unavailable Unavailable + D Unavailable Unavailable Unavailable CAMI, BRANDEE Unavailable Unavailable + [place] [address] CREBBS, VILLA Unavailable Unavailable + D Unavailable Unavailable Unavailable CAMI, BRANDEE Unavailable Unavailable + [place] [address] CREBBS, VILLA Unavailable Unavailable + D Unavailable Unavailable Unavailable CAMI, BRANDEE Unavailable Unavailable + [place] [address] CREBBS, VILLA Unavailable Unavailable + D Unavailable Unavailable Unavailable CAMI, BRANDEE Unavailable Unavailable + [place] [address] CREBBS, VILLA Unavailable Unavailable + D Unavailable Unavailable Unavailable CAMI, BRANDEE Unavailable Unavailable + [place] [address] CREBBS, VILLA Unavailable Unavailable + D Unavailable Unavailable Unavailable CAMI, BRANDEE Unavailable Unavailable + [place] [address] CREBBS, VILLA Unavailable Unavailable + D Unavailable Unavailable Unavailable CAMI, BRANDEE Unavailable Unavailable + [place] [address] CREBBS, VILLA Unavailable Unavailable + D Unavailable Unavailable Unavailable CAMI, BRANDEE Unavailable Unavailable + [place] [address] CREBBS, VILLA Unavailable Unavailable + D Unavailable Unavailable Unavailable CAMI, BRANDEE Unavailable Unavailable + [place] [address] CREBBS, VILLA Unavailable Unavailable + D Unavailable Unavailable Unavailable CAMI, BRANDEE Unavailable Unavailable + [place] [address] CREBBS, VILLA Unavailable Unavailable + D Unavailable Unavailable Unavailable CAMI, BRANDEE Unavailable Unavailable + [place] [address] CREBBS, VILLA Unavailable Unavailable + D Unavailable Unavailable Unavailable CAMI, BRANDEE Unavailable Unavailable + [place] [address] CREBBS, VILLA Unavailable Unavailable + D Unavailable Unavailable Unavailable CAMI, BRANDEE Unavailable Unavailable + [place] [address] CREBBS, VILLA Unavailable Unavailable + D Unavailable Unavailable Unavailable CAMI, BRANDEE Unavailable Unavailable + [place] [address] CREBBS, VILLA Unavailable Unavailable + D Unavailable Unavailable Unavailable CAMI, BRANDEE Unavailable Unavailable + [place] [address] CREBBS, VILLA Unavailable Unavailable + D Unavailable Unavailable Unavailable CAMI, BRANDEE Unavailable Unavailable + [place] [address] CREBBS, VILLA Unavailable Unavailable + D Unavailable Unavailable Unavailable CAMI, BRANDEE Unavailable Unavailable + [place] [address] CREBBS, VILLA Unavailable Unavailable + D Unavailable Unavailable Unavailable CAMI, BRANDEE Unavailable Unavailable + [place] [address] CREBBS, VILLA Unavailable Unavailable + D Unavailable Unavailable Unavailable CAMI, BRANDEE Unavailable Unavailable + [place] [address] CREBBS, VILLA Unavailable Unavailable + D Unavailable Unavailable Unavailable CAMI, BRANDEE Unavailable Unavailable + [place] [address] CREBBS, VILLA Unavailable Unavailable + D Unavailable Unavailable Unavailable CAMI, BRANDEE Unavailable Unavailable + [place] [address] D Unavailable Unavailable Unavailable CAMI, BRANDEE Unavailable Unavailable + [place] [address] D Unavailable Unavailable Unavailable CAMI, BRANDEE Unavailable . + [place] [address] D Unavailable Unavailable Unavailable CAMI, BRANDEE Unavailable . + [place] [address] D Unavailable Unavailable Unavailable CAMI, BRANDEE Unavailable . + [place] [address] D Unavailable Unavailable Unavailable CAMI, BRANDEE Unavailable . + [place] [address] D Unavailable Unavailable Unavailable CAMI, BRANDEE Unavailable . + [place] [address] D Unavailable Unavailable Unavailable CAMI, BRANDEE Unavailable . + [place] [address] D Unavailable Unavailable Unavailable CAMI, BRANDEE Unavailable Unavailable + [place] [address] D Unavailable Unavailable Unavailable CAMI, BRANDEE Unavailable . + [place] [address] D Unavailable Unavailable Unavailable CAMI, BRANDEE Unavailable Unavailable + [place] [address] D Unavailable Unavailable Unavailable CAMI, BRANDEE Unavailable Unavailable + [place] [address] D Unavailable Unavailable Unavailable CAMI, BRANDEE Unavailable Unavailable + [place] [address] D Unavailable Unavailable Unavailable CAMI, BRANDEE Unavailable Unavailable + [place] [address] D Unavailable Unavailable Unavailable CAMI, BRANDEE Unavailable Unavailable + [place] [address] D Unavailable Unavailable Unavailable CAMI, BRANDEE Unavailable Unavailable + [place] [address] D Unavailable Unavailable Unavailable CAMI, BRANDEE Unavailable Unavailable + [place] [address] D Unavailable Unavailable Unavailable CAMI, BRANDEE Unavailable Unavailable + [place] [address] D Unavailable Unavailable Unavailable CAMI, BRANDEE Unavailable Unavailable + [place] [address] D Unavailable Unavailable Unavailable CAMI, BRANDEE Unavailable Unavailable + [place] [address] D Unavailable Unavailable Unavailable CAMI, BRANDEE Unavailable . + [place] [address] D Unavailable Unavailable Unavailable CAMI, BRANDEE Unavailable Unavailable + [place] [address] D Unavailable Unavailable Unavailable CAMI, BRANDEE Unavailable . + [place] [address] D Unavailable Unavailable Unavailable CAMI, BRANDEE Unavailable . + [place] [address] D Unavailable Unavailable Unavailable CAMI, BRANDEE Unavailable Unavailable + [place] [address] D Unavailable Unavailable Unavailable CAMI, BRANDEE Unavailable Unavailable + [place] [address] D Unavailable Unavailable Unavailable CAMI, BRANDEE Unavailable Unavailable + [place] [address] D Unavailable Unavailable Unavailable CAMI, BRANDEE Unavailable Unavailable + [place] [address] D Unavailable Unavailable Unavailable CAMI, BRANDEE Unavailable . + [place] [address] D Unavailable Unavailable Unavailable CAMI, BRANDEE Unavailable Unavailable + [place] [address] D Unavailable Unavailable Unavailable CAMI, BRANDEE Unavailable Unavailable + [place] [address] D Unavailable Unavailable Unavailable CAMI, BRANDEE Unavailable . + [place] [address] D Unavailable Unavailable Unavailable CAMI, BRANDEE Unavailable Unavailable + [place] [address] D Unavailable Unavailable Unavailable CAMI, BRANDEE Unavailable Unavailable + [place] [address] D Unavailable Unavailable Unavailable CAMI, BRANDEE Unavailable Unavailable + [place] [address] D Unavailable Unavailable Unavailable CAMI, BRANDEE Unavailable Unavailable + [place] [address] D Unavailable Unavailable Unavailable CAMI, BRANDEE Unavailable . + [place] [address] D Unavailable Unavailable Unavailable CAMI, BRANDEE Unavailable Unavailable + [place] [address] D Unavailable Unavailable Unavailable CAMI, BRANDEE Unavailable . + [place] [address] D Unavailable Unavailable Unavailable CAMI, BRANDEE Unavailable Unavailable + [place] [address] D Unavailable Unavailable Unavailable CAMI, BRANDEE Unavailable . + [place] [address] D Unavailable Unavailable Unavailable CAMI, BRANDEE Unavailable Unavailable + [place] [address] D Unavailable Unavailable Unavailable CAMI, BRANDEE Unavailable Unavailable + [place] [address] D Unavailable Unavailable Unavailable CAMI, BRANDEE Unavailable Unavailable + [place] [address] D Unavailable Unavailable Unavailable CAMI, BRANDEE Unavailable Unavailable + [place] [address] D Unavailable Unavailable Unavailable CAMI, BRANDEE Unavailable Unavailable + [place] [address] D Unavailable Unavailable Unavailable CAMI, BRANDEE Unavailable . + [place] [address] D Unavailable Unavailable Unavailable CAMI, BRANDEE Unavailable Unavailable + [place] [address] D Unavailable Unavailable Unavailable Care Team Providers Name Role Phone Leonard Chapa Attending Unavailable Sam Solis Referring Unavailable Sam Solis Primary Care Unavailable Tio Parker Primary [facility] Unavailable Jeffrey Campos Consulting Unavailable David, Braden Admitting Unavailable Leonard Chavez Attending Unavailable Ashelfah, Ghasem Admitting Unavailable Ashelfah, Ghasem Attending Unavailable [facility] Unavailable Steffany, Jeffrey Consulting Unavailable Ashelfah, Ghasem Consulting Unavailable Ashelfah, Ghasem Admitting Unavailable ChristopheLeonard Attending Unavailable [facility] Unavailable Steffany, Jeffrey Consulting Unavailable Kittoe, Leonard Consulting Unavailable Ashelfah, Ghasem Admitting Unavailable Dominick Denny D.O. Attending Unavailable [facility] Unavailable Steffany, Jeffrey Consulting Unavailable Kittoe, Leonard Consulting Unavailable Ashelfah, Ghasem Admitting Unavailable ChristopheLeonard Attending Unavailable [facility] Unavailable Steffany, Jeffrey Consulting Unavailable Kittoe, Leonard Consulting Unavailable Ashelfah, Ghasem Admitting Unavailable Dominick Denny D.O. Attending Unavailable [facility] Unavailable Steffany, Jeffrey Consulting Unavailable Kittoe, Leonard Consulting Unavailable Liat Pinto Attending Unavailable Robert Li Attending Unavailable [facility] Referring Unavailable [facility] Unavailable [facility] Unavailable Jopperi, Juan Manuel Admitting Unavailable Steffany, Jeffrey Consulting Unavailable Ashelfah, Ghasem Attending Unavailable Albina, Grant Consulting Unavailable Robert Li Consulting Unavailable Magalieeri, Juan Manuel Admitting Unavailable Johnson Subramanianic Attending Unavailable [facility] Unavailable Steffany, Jeffrey Consulting Unavailable Albina, Grant Consulting Unavailable Jopperi, Juan Manuel Consulting Unavailable Ashelfah, Ghasem Admitting Unavailable Leonard Chavez Attending Unavailable [facility] Unavailable Steffany, Jeffrey Consulting Unavailable Aristidestoe, Leonard Consulting Unavailable Ashelfah, Ghasem Admitting Unavailable Dominick Denny D.O. Attending Unavailable [facility] Unavailable Steffany, Jeffrey Consulting Unavailable Kittoe, Leonard Consulting Unavailable Lenard, Metz Attending Unavailable Paintsil, Tifton Referring Unavailable Lenard, Metz Attending Unavailable ChristopheLeonard Referring Unavailable Jopperi, Juan Manuel Admitting Unavailable Nelson Zimmerman Attending Unavailable [facility] Unavailable Steffany, Jeffrey Consulting Unavailable Albina, Grant Consulting Unavailable Robert Li Consulting Unavailable Nelson Zimmerman Consulting Unavailable Magalieeri, Juan Manuel Admitting Unavailable Robert Li Attending Unavailable [facility] Unavailable Steffany, Jeffrey Consulting Unavailable Albina, Grant Consulting Unavailable Robert Li Consulting Unavailable Tereletsky, Nelson Consulting Unavailable Jopperi, Juan Manuel Admitting Unavailable TerNelson hoover Attending Unavailable [facility] Unavailable Steffany, Jeffrey Consulting Unavailable Albina, Grant Consulting Unavailable Robert Li Consulting Unavailable Tereletsky, Nelson Consulting Unavailable Jopperi, Juan Manuel Admitting Unavailable TerNelson hoover Attending Unavailable [facility] Unavailable Steffany, Jeffrey Consulting Unavailable Albina, Grant Consulting Unavailable Robert Li Consulting Unavailable Tereletsky, Nelson Consulting Unavailable Jopperi, Juan Manuel Admitting Unavailable Robert Li Attending Unavailable [facility] Unavailable Steffany, Jeffrey Consulting Unavailable Albina, Grant Consulting Unavailable Robert Li Consulting Unavailable Terarpitky, Nelson Consulting Unavailable Jopperi, Juan Manuel Admitting Unavailable Robert Li Attending Unavailable [facility] Unavailable Steffany, Jeffrey Consulting Unavailable Albina, Grant Consulting Unavailable Robert Li Consulting Unavailable Mary, Nelson Consulting Unavailable Jopperi, Juan Manuel Admitting Unavailable TerNelson hoover Attending Unavailable [facility] Unavailable Steffany, Jeffrey Consulting Unavailable Albina, Grant Consulting Unavailable Robert Li Consulting Unavailable Jaynaky, Nelson Consulting Unavailable Jopperi, Juan Manuel Admitting Unavailable TerNelson hoover Attending Unavailable [facility] Unavailable Steffany, Jeffrey Consulting Unavailable Albina, Grant Consulting Unavailable Robert Li Consulting Unavailable Mary, Nelson Consulting Unavailable Beatapperi, Juan Manuel Admitting Unavailable Nitesh Mackenzie Attending Unavailable [facility] Unavailable Steffany, Jeffrey Consulting Unavailable Albina, Grant Consulting Unavailable Robert Li Consulting Unavailable Tereletsky, Nelson Consulting Unavailable Jopperi, Juan Manuel Admitting Unavailable TerNelson hoover Attending Unavailable [facility] Unavailable Steffany, Jeffrey Consulting Unavailable Albina, Grant Consulting Unavailable Robert Li Consulting Unavailable Terarpitky, Nelson Consulting Unavailable Jopperi, Juan Manuel Admitting Unavailable Nitesh Mackenzie Attending Unavailable [facility] Unavailable Steffany, Jeffrey Consulting Unavailable Albina, Grant Consulting Unavailable Robert Li Consulting Unavailable Tereletsky, Nelson Consulting Unavailable Beatapperi, Juan Manuel Admitting Unavailable Robert Li Attending Unavailable [facility] Unavailable Steffany, Jeffrey Consulting Unavailable Alibna, Grant Consulting Unavailable Robert Li Consulting Unavailable Tereletsky, Nelson Consulting Unavailable Jopperi, Juan Manuel Admitting Unavailable Nilson Rueda.Maria L. Attending Unavailable [facility] Unavailable Steffany, Jeffrey Consulting Unavailable Albina, Grant Consulting Unavailable Robert Li Consulting Unavailable Tereletsky, Nelson Consulting Unavailable Jopperi, Juan Manuel Admitting Unavailable TerarpitkyNelson Attending Unavailable [facility] Unavailable Steffany, Jeffrey Consulting Unavailable Albina, Grant Consulting Unavailable Robert Li Consulting Unavailable Tereletsky, Nelson Consulting Unavailable Jopperi, Juan Manuel Admitting Unavailable Nilson Rueda.Maria L. Attending Unavailable [facility] Unavailable Steffany, Jeffrey Consulting Unavailable Albina, Grant Consulting Unavailable Robert Li Consulting Unavailable Tereletsky, Nelson Consulting Unavailable Jopperi, Juan Manuel Admitting Unavailable Nelson Zimmerman Attending Unavailable [facility] Unavailable Steffany, Jeffrey Consulting Unavailable Albina, Grant Consulting Unavailable Robert Li Consulting Unavailable Tereletsky, Nelson Consulting Unavailable Jopperi, Juan Manuel Admitting Unavailable Robert Li Attending Unavailable [facility] Unavailable Steffany, Jeffrey Consulting Unavailable Albina, Grant Consulting Unavailable Robert Li Consulting Unavailable Tereletsky, Nelson Consulting Unavailable Jopperi, Juan Manuel Admitting Unavailable Nilson Rueda.O. Attending Unavailable [facility] Unavailable Steffany, Jeffrey Consulting Unavailable Albina, Grant Consulting Unavailable Robert Li Consulting Unavailable Terarpitky, Nelson Consulting Unavailable Jopperi, Juan Manuel Admitting Unavailable TerNelson hoover Attending Unavailable [facility] Unavailable Steffany, Jeffrey Consulting Unavailable Albina, Grant Consulting Unavailable Robert Li Consulting Unavailable Tereletsky, Nelson Consulting Unavailable Jopperi, Juan Manuel Admitting Unavailable Robert Li Attending Unavailable [facility] Unavailable Steffany, Jeffrey Consulting Unavailable Albina, Grant Consulting Unavailable Robert Li Consulting Unavailable Tereletsky, Nelson Consulting Unavailable Jopperi, Juan Manuel Admitting Unavailable Dominick Denny D.O. Attending Unavailable [facility] Unavailable Steffany, Jeffrey Consulting Unavailable Albina, Grant Consulting Unavailable Robert Li Consulting Unavailable Tereletsky, Nelson Consulting Unavailable Jopperi, Juan Manuel Admitting Unavailable Nelson Zimmerman Attending Unavailable [facility] Unavailable Steffany, Jeffrey Consulting Unavailable Albina, Grant Consulting Unavailable Robert Li Consulting Unavailable Mary, Nelson Consulting Unavailable Jopperi, Juan Manuel Admitting Unavailable Dominick Denny D.O. Attending Unavailable [facility] Unavailable SteffanyJeffrey grajeda Consulting Unavailable Albina, Grant Consulting Unavailable Robert Li Consulting Unavailable Mary, Nelson Consulting Unavailable Jopperi, Juan Manuel Admitting Unavailable TerNelson hoover Attending Unavailable [facility] Unavailable Steffany, Jeffrey Consulting Unavailable Albina, Grant Consulting Unavailable Robert Li Consulting Unavailable Mary, Nelson Consulting Unavailable Jopperi, Juan Manuel Admitting Unavailable Nitesh Mackenzie Attending Unavailable [facility] Unavailable SteffanyJeffrey grajeda Consulting Unavailable Albina, Grant Consulting Unavailable Robert Li Consulting Unavailable Mary, Nelson Consulting Unavailable Jopperi, Juan Manuel Admitting Unavailable Nilson Rueda.Maria L. Attending Unavailable [facility] Unavailable SteffanyJeffrey grajeda Consulting Unavailable Albina, Grant Consulting Unavailable Robert Li Consulting Unavailable Ulices, Gina Charito Consulting Unavailable Beatapperi, Juan Manuel Admitting Unavailable Nitesh Mackenzie Attending Unavailable [facility] Unavailable Steffany, Jeffrey Consulting Unavailable Albina, Grant Consulting Unavailable Robert Li Consulting Unavailable Koram, Gina Charito Consulting Unavailable Jopperi, Juan Manuel Admitting Unavailable Dominick Denny D.O. Attending Unavailable [facility] Unavailable SteffanyJeffrey grajeda Consulting Unavailable Albina, Grant Consulting Unavailable Rboert Li Consulting Unavailable Koram, Gina Charito Consulting Unavailable Jopperi, Juan Manuel Admitting Unavailable Nitesh Mackenzie Attending Unavailable [facility] Unavailable Steffany, Jeffrey Consulting Unavailable Albina, Grant Consulting Unavailable Robert Li Consulting Unavailable Koram, Gina Charito Consulting Unavailable Jopperi, Juan Manuel Admitting Unavailable Skylerelfpraveena, Ghasem Attending Unavailable [facility] Unavailable Steffany, Jeffrey Consulting Unavailable Albina, Grant Consulting Unavailable Robert Li Consulting Unavailable Ashelfah, Ghasem Consulting Unavailable Ashelfah, Ghasem Attending Unavailable Ashelfah, Ghasem Attending Unavailable Zenobia Milan Attending Unavailable Nitesh Mackenzie Attending Unavailable Jeffrey Campos Attending Unavailable Juan Manuel Subramanian Referring Unavailable Jeffrey Campos Attending Unavailable Mary, Nelson Referring Unavailable Kiki John Attending Unavailable Keith, Tio Referring Unavailable Roof, Brennon Daley Attending Unavailable Keith, Tio Referring Unavailable Keith, Tio Primary Care Unavailable Lenard, Sebastien Attending Unavailable Nelson Zimmerman Referring Unavailable Jeffrey Campos Attending Unavailable Keith, Tio Referring Unavailable Robert Li Attending Unavailable Keith, Tio Referring Unavailable Robert Li Attending Unavailable Keith, Tio Referring Unavailable Robert Li Attending Unavailable Ketih, Tio Referring Unavailable Roof, Brennon H Attending Unavailable Keith, Tio Referring Unavailable JanDarryn marques Attending Unavailable Keith, Tio Primary Care Unavailable Darryn Walsh Referring Unavailable Keith, Tio Primary Care Unavailable Koram, Gina Charito Admitting Unavailable Dominick Denny D.O. Consulting Unavailable Leonard Chavez Attending Unavailable Lenard, Sebastien Consulting Unavailable Robert Paredes Consulting Unavailable Roscoe Bazzi Consulting Unavailable Koram, Gina Charito Admitting Unavailable Koram, Gina Chairto Attending Unavailable Keith, Tio Primary Care Unavailable Dominick Denny D.O. Consulting Unavailable Lenard, Sebastien Consulting Unavailable Koram, Gina Charito Consulting Unavailable Koram, Gina Charito Admitting Unavailable Lenard, Sebastien Attending Unavailable Keith, Tio Primary Care Unavailable Dominick Denny D.O. Consulting Unavailable Lenard, Metz Consulting Unavailable Koram, Gina Charito Consulting Unavailable Koram, Gina Charito Admitting Unavailable Dominick Denny D.O. Attending Unavailable Keith, Tio Primary Care Unavailable Dominick Denny D.O. Consulting Unavailable Lenard, Sebastien Consulting Unavailable Koram, Gina Charito Consulting Unavailable Koram, Gina Charito Admitting Unavailable Robert Li Attending Unavailable Keith, Tio Primary Care Unavailable Dominick Denny D.O. Consulting Unavailable Lenard, Metz Consulting Unavailable Koram, Gina Charito Consulting Unavailable Koram, Gina Charito Admitting Unavailable Koram, Gina Charito Attending Unavailable Keith, Tio Primary Care Unavailable Dominick Denny D.O. Consulting Unavailable Lenard, Metz Consulting Unavailable Koram, Gina Charito Consulting Unavailable Koram, Gina Charito Admitting Unavailable Dominick Denny D.O. Attending Unavailable [facility] Unavailable Dominick Denny D.O. Consulting Unavailable Lenard, Sebastien Consulting Unavailable Koram, Gina Charito Consulting Unavailable Koram, Gina Charito Admitting Unavailable Robert Li Attending Unavailable [facility] Unavailable Dominick Denny D.O. Consulting Unavailable Lenard, Metz Consulting Unavailable Koram, Gina Charito Consulting Unavailable Koram, Gina Charito Admitting Unavailable Dominick Denny D.O. Attending Unavailable [facility] Unavailable Dominick Denny D.O. Consulting Unavailable Lenard, Sebastien Consulting Unavailable Koram, Gina Charito Consulting Unavailable Koram, Gina Charito Admitting Unavailable Koram, Gina Charito Attending Unavailable [facility] Unavailable Dominick Denny D.O. Consulting Unavailable Lenard, Metz Consulting Unavailable Koram, Gina Charito Consulting Unavailable Koram, Gina Charito Admitting Unavailable Robert Li Attending Unavailable [facility] Unavailable Dominick Denny D.O. Consulting Unavailable Lenard, Sebastien Consulting Unavailable Koram, Gina Charito Consulting Unavailable Koram, Gina Charito Admitting Unavailable Koram, Gina Charito Attending Unavailable [facility] Unavailable Dominick Denny D.O. Consulting Unavailable Lenard, Sebastien Consulting Unavailable Koram, Gina Charito Consulting Unavailable Koram, Gina Charito Admitting Unavailable Dominick Denny D.O. Attending Unavailable [facility] Unavailable Dominick Denny D.O. Consulting Unavailable Lenard, Sebastien Consulting Unavailable Koram, Gina Charito Consulting Unavailable Koram, Gina Charito Admitting Unavailable Koram, Gina Charito Attending Unavailable [facility] Unavailable Dominick Denny D.O. Consulting Unavailable Lenard, Metz Consulting Unavailable Koram, Gina Charito Consulting Unavailable Koram, Gina Charito Admitting Unavailable Dominick Denny D.O. Attending Unavailable [facility] Unavailable Dominick Denny D.O. Consulting Unavailable Lenard, Sebastien Consulting Unavailable Koram, Gina Charito Consulting Unavailable Koram, Gina Charito Admitting Unavailable Robert Li Attending Unavailable [facility] Unavailable Dominick Brown, D.O. Consulting Unavailable Lenard, Sebastien Consulting Unavailable Koram, Gina Charito Consulting Unavailable Koram, Gina Charito Admitting Unavailable Robert Li Attending Unavailable [facility] Unavailable Dominick Denny D.O. Consulting Unavailable Lenard, Metz Consulting Unavailable Koram, Igna Charito Consulting Unavailable Koram, Gina Charito Admitting Unavailable Koram, Gina Charito Attending Unavailable [facility] Unavailable Dominick Denny D.O. Consulting Unavailable Lenard, Metz Consulting Unavailable Koram, Gina Charito Consulting Unavailable Koram, Gina Charito Admitting Unavailable Dominick Denny D.O. Attending Unavailable [facility] Unavailable Dominick Denny D.O. Consulting Unavailable Lenard, Metz Consulting Unavailable Koram, Gina Charito Consulting Unavailable Koram, Gina Charito Admitting Unavailable Koram, Gina Charito Attending Unavailable [facility] Unavailable Dominick Denny D.O. Consulting Unavailable Lenard, Metz Consulting Unavailable Koram, Gina Charito Consulting Unavailable Koram, Gina Charito Admitting Unavailable Robert Li Attending Unavailable [facility] Unavailable Dominick Denny D.O. Consulting Unavailable Lenard, Sebastien Consulting Unavailable Koram, Gina Charito Consulting Unavailable Koram, Gina Charito Admitting Unavailable Dominick Denny D.O. Attending Unavailable [facility] Unavailable Dominick Denny D.O. Consulting Unavailable Lenard, Metz Consulting Unavailable Koram, Gina Charito Consulting Unavailable Koram, Gina Charito Admitting Unavailable Robert Li Attending Unavailable [facility] Unavailable Dominick Denny D.O. Consulting Unavailable Lenard, Metz Consulting Unavailable Koram, Gina Charito Consulting Unavailable Koram, Gina Charito Admitting Unavailable Koram, Gina Charito Attending Unavailable [facility] Unavailable Dominick Denny D.O. Consulting Unavailable Lenard, Sebastien Consulting Unavailable Koram, Gina Charito Consulting Unavailable Koram, Gina Charito Admitting Unavailable Jeffrey Campos Attending Unavailable [facility] Unavailable Dominick Denny D.O. Consulting Unavailable Lenard, Metz Consulting Unavailable Koram, Gina Charito Consulting Unavailable Koram, Gina Charito Admitting Unavailable Jopperi, Juan Manuel Attending Unavailable [facility] Unavailable Dominick Denny D.O. Consulting Unavailable Lenard, Sebastien Consulting Unavailable Jopperi, Juan Manuel Consulting Unavailable Koram, Gina Charito Admitting Unavailable Jeffrey Campos Attending Unavailable [facility] Unavailable Dominick Denny D.O. Consulting Unavailable Lenard, Metz Consulting Unavailable Jopperi, Juan Manuel Consulting Unavailable Koram, Gina Charito Admitting Unavailable Jopperi, Juan Manuel Attending Unavailable [facility] Unavailable Dominick Denny D.O. Consulting Unavailable Lenard, Sebastien Consulting Unavailable Jopperi, Juan Manuel Consulting Unavailable Koram, Gina Charito Admitting Unavailable Jeffrey Campos Attending Unavailable [facility] Unavailable Dominick Denny D.O. Consulting Unavailable Lenard, Metz Consulting Unavailable Jopperi, Juan Manuel Consulting Unavailable Koram, Gina Charito Admitting Unavailable Jopperi, Juan Manuel Attending Unavailable [facility] Unavailable Dominick Denny D.O. Consulting Unavailable Lenard, Sebastien Consulting Unavailable Jopperi, Juan Manuel Consulting Unavailable Koram, Gina Charito Admitting Unavailable Robert Li Attending Unavailable [facility] Unavailable Dominick Denny D.O. Consulting Unavailable Lenard, Metz Consulting Unavailable Jopperi, Juan Manuel Consulting Unavailable Koram, Gina Charito Admitting Unavailable Jeffrey Campos Attending Unavailable [facility] Unavailable Dominick Denny D.O. Consulting Unavailable Lenard, Metz Consulting Unavailable Jopperi, Juan Manuel Consulting Unavailable Koram, Gina Charito Admitting Unavailable Jopperi, Juan Manuel Attending Unavailable [facility] Unavailable Dominick Denny D.O. Consulting Unavailable Lenard, Sebastien Consulting Unavailable Jopperi, Juan Manuel Consulting Unavailable Koram, Gina Charito Admitting Unavailable Jeffrey Campos Attending Unavailable [facility] Unavailable Dominick Denny D.O. Consulting Unavailable Lenard, Sebastien Consulting Unavailable Robert Paredes Consulting Unavailable Roscoe Bazzi Consulting Unavailable Jopperi, Juan Manuel Consulting Unavailable Koram, Gina Charito Admitting Unavailable Jopperi, Juan Manuel Attending Unavailable [facility] Unavailable Dominick Denny D.O. Consulting Unavailable Lenard, Metz Consulting Unavailable Robert Paredes Consulting Unavailable Jluis, Roscoe Consulting Unavailable Jopperi, Juan Manuel Consulting Unavailable Koram, Gina Charito Admitting Unavailable Robert Paredes Attending Unavailable [facility] Unavailable Dominick Denny D.O. Consulting Unavailable Lenard, Sebastien Consulting Unavailable Lena, Robert Consulting Unavailable Jluis, Roscoe Consulting Unavailable Jopperi, Juan Manuel Consulting Unavailable Koram, Gina Charito Admitting Unavailable Jeffrey Campos Attending Unavailable [facility] Unavailable Dominick Denny D.O. Consulting Unavailable Lenard, Metz Consulting Unavailable Lena, Robert Consulting Unavailable Jluis, Roscoe Consulting Unavailable Jopperi, Juan Manuel Consulting Unavailable Koram, Gina Charito Admitting Unavailable Juan Manuel Subramanian Attending Unavailable [facility] Unavailable Dominick Denny D.O. Consulting Unavailable Lenard, Metz Consulting Unavailable [place], Robert Consulting Unavailable Jluis, Roscoe Consulting Unavailable Joevaeri, Juan Manuel Consulting Unavailable Koram, Gina Charito Admitting Unavailable Jeffrey Campos Attending Unavailable [facility] Unavailable Dominick Denny D.O. Consulting Unavailable Lenard, Sebastien Consulting Unavailable [place], Robert Consulting Unavailable Jluis, Roscoe Consulting Unavailable [place], Rio Consulting Unavailable Koram, Gina Charito Admitting Unavailable Linda Koch PA-C Attending Unavailable [facility] Unavailable Dominick Denny D.O. Consulting Unavailable Lenard, Metz Consulting Unavailable [place], Robert Consulting Unavailable Jluis, Roscoe Consulting Unavailable [place], Rio Consulting Unavailable Koram, Gina Charito Admitting Unavailable [place] Coelho Attending Unavailable [facility] Unavailable Dominick Denny D.O. Consulting Unavailable Lenard, Sebastien Consulting Unavailable [place], Robert Consulting Unavailable Jluis, Roscoe Consulting Unavailable [place], Rio Consulting Unavailable Koram, Gina Charito Admitting Unavailable Dominick Denny D.O. Attending Unavailable [facility] Unavailable Dominick Denny D.O. Consulting Unavailable Lenard, Sebastien Consulting Unavailable [place], Robert Consulting Unavailable Jluis, Roscoe Consulting Unavailable [place], Rio Consulting Unavailable Koram, Gina Charito Admitting Unavailable Robert Li Attending Unavailable [facility] Unavailable Dominick Denny D.O. Consulting Unavailable Lenard, Sebastien Consulting Unavailable Lena, Robert Consulting Unavailable Jluis, Roscoe Consulting Unavailable [place], Rio Consulting Unavailable Koram, Gina Charito Admitting Unavailable Dominick Denny D.O. Attending Unavailable [facility] Unavailable Dominick Denny D.O. Consulting Unavailable Lenard, Metz Consulting Unavailable Lena, Robert Consulting Unavailable Jluis, Roscoe Consulting Unavailable [place], Rio Consulting Unavailable Koram, Gina Charito Admitting Unavailable [facility] [place] [facility] [place] Attending Unavailable [facility] Unavailable Dominick Denny D.O. Consulting Unavailable Lenard, Sebastien Consulting Unavailable [place], Robert Consulting Unavailable Jluis, Roscoe Consulting Unavailable [place], Rio Consulting Unavailable Koram, Gina Charito Admitting Unavailable Dominick Denny D.O. Attending Unavailable [facility] Unavailable Dominick Denny D.O. Consulting Unavailable Lenard, Metz Consulting Unavailable Lena, Robert Consulting Unavailable Jluis, Roscoe Consulting Unavailable [place], Rio Consulting Unavailable Koram, Gina Charito Admitting Unavailable [facility] [place] [facility] [place] Attending Unavailable [facility] Unavailable Dominick Denny D.O. Consulting Unavailable Lenard, Metz Consulting Unavailable Lena, Robert Consulting Unavailable Jluis, Roscoe Consulting Unavailable [place], Rio Consulting Unavailable Koram, Gina Charito Admitting Unavailable Lenard, Metz Attending Unavailable [facility] Unavailable Dominick Denny D.O. Consulting Unavailable Lenard, Metz Consulting Unavailable Lena, Robert Consulting Unavailable Jluis, Roscoe Consulting Unavailable [place], Rio Consulting Unavailable Koram, Gina Charito Admitting Unavailable [facility] [place] [facility] [place] Attending Unavailable [facility] Unavailable Dominick Denny D.O. Consulting Unavailable Lenard, Sebsatien Consulting Unavailable Lena, Robert Consulting Unavailable Jluis, Roscoe Consulting Unavailable [place], [place] Consulting Unavailable Koram, Gina Charito Admitting Unavailable Dominick Denny D.O. Attending Unavailable [facility] Unavailable Nilson Rueda.Maria L. Consulting Unavailable Lenard, Metz Consulting Unavailable [place], Robert Consulting Unavailable Jluis, Roscoe Consulting Unavailable [place], [place] Consulting Unavailable Koram, Gina Charito Admitting Unavailable Lenard, Sebastien Attending Unavailable [facility] Unavailable Dominick Denny D.O. Consulting Unavailable Lenard, Metz Consulting Unavailable Lena, Robert Consulting Unavailable Jluis, Roscoe Consulting Unavailable [place], Rio Consulting Unavailable Koram, Gina Charito Admitting Unavailable [facility] [place] [facility] [place] Attending Unavailable [facility] Unavailable Nilson Rueda.Maria L. Consulting Unavailable Lenard, Sebastien Consulting Unavailable [place], Robert Consulting Unavailable Jluis, Roscoe Consulting Unavailable [place], [place] Consulting Unavailable Koram, Gina Charito Admitting Unavailable Nilson Rueda.O. Attending Unavailable [facility] Unavailable Nilson Rueda.O. Consulting Unavailable Lenard, Sebastien Consulting Unavailable [place], Robert Consulting Unavailable Jluis, Roscoe Consulting Unavailable [place], Rio Consulting Unavailable Koram, Gina Charito Admitting Unavailable Nilson Rueda.O. Attending Unavailable [facility] Unavailable Nilson Rueda.O. Consulting Unavailable Lenard, Sebastien Consulting Unavailable Lena, Robert Consulting Unavailable Jluis, Roscoe Consulting Unavailable Sementi, Suzi Consulting Unavailable Koram, Gina Charito Admitting Unavailable Lenard, Metz Attending Unavailable [facility] Unavailable Nilson Rueda.O. Consulting Unavailable Lenard, Metz Consulting Unavailable Lena, Robert Consulting Unavailable Jluis, Roscoe Consulting Unavailable Sementi, Suzi Consulting [facility] G[facility] Charito Admitting Unavailable Sementi, Suzi Attending Unavailable [facility] Unavailable Nilson Rueda.O. Consulting Unavailable Lenard, Metz Consulting Unavailable Lena, Robert Consulting Unavailable Jluis, Roscoe Consulting Unavailable Sementi, Suzi Consulting Unavailable Koram, Gina Charito Admitting Unavailable Lenard, Sebastien Attending Unavailable [facility] Unavailable Nilson Rueda.O. Consulting Unavailable Lenard, Sebastien Consulting Unavailable [place], Robert Consulting Unavailable Jluis, Roscoe Consulting Unavailable Sementi, Suzi Consulting Unavailable Koram, Gina Charito Admitting Unavailable Sementi, Suzi Attending Unavailable [facility] Unavailable Nilson Rueda.O. Consulting Unavailable Lenard, Sebastien Consulting Unavailable [place], Robert Consulting Unavailable Jluis, Roscoe Consulting Unavailable Sementi, Suzi Consulting Unavailable Koram, Gina Charito Admitting Unavailable Steffany, Jeffrey Attending Unavailable [facility], [facility] Unavailable Dominick Denny D.O. Consulting Unavailable Lenard, Sebastien Consulting Unavailable [place], Robert Consulting Unavailable Jluis, Roscoe Consulting Unavailable Sementi, Suzi Consulting Unavailable Koram, Gina Charito Admitting Unavailable Robert Li Attending Unavailable [facility] Unavailable Dominick Denny D.O. Consulting Unavailable Lenard, Sebastien Consulting Unavailable Lena, Robert Consulting Unavailable Jluis, Roscoe Consulting Unavailable Sementi, Suzi Consulting Unavailable Koram, Gina Charito Admitting Unavailable Koram, Gina Charito Attending Unavailable [facility] Unavailable Dominick Denny D.O. Consulting Unavailable Lenard, Sebastien Consulting Unavailable Lena, Robert Consulting Unavailable Jluis, Roscoe Consulting Unavailable Koram, Gina Charito Consulting Unavailable Koram, Gina Charito Admitting Unavailable Jeffrey Campos Attending Unavailable [facility] Unavailable Dominick Denny D.O. Consulting Unavailable Lenard, Metz Consulting Unavailable [place], Robert Consulting Unavailable Jluis, Roscoe Consulting Unavailable Koram, Gina Charito Consulting Unavailable Koram, Gina Charito Admitting Unavailable Robert Li Attending Unavailable [facility] Unavailable Dominick Denny D.O. Consulting Unavailable Lenard, Metz Consulting Unavailable [place], Robert Consulting Unavailable Jluis, Roscoe Consulting Unavailable Tereletsky, Nelson Consulting Unavailable Koram, Gina Charito Admitting Unavailable TerNelson hoover Attending Unavailable [facility] Unavailable Nilson Rueda.Maria L. Consulting Unavailable Lenard, Sebastien Consulting Unavailable [place], Robert Consulting Unavailable Jluis, Roscoe Consulting Unavailable Tereletsky, Nelson Consulting Unavailable Koram, Gina Charito Admitting Unavailable Jeffrey Campos Attending Unavailable [facility], [place] [facility] Unavailable Nilson Rueda.Maria L. Consulting Unavailable Lenard, Metz Consulting Unavailable Lena, Robert Consulting Unavailable Jluis, Roscoe Consulting Unavailable Tereletsky, Nelson Consulting Unavailable Koram, Gina Charito Admitting Unavailable Koram, Gina Charito Attending Unavailable [facility] Unavailable Nilson Rueda.Maria L. Consulting Unavailable Lenard, Sebastien Consulting Unavailable [place], Robert Consulting Unavailable Jluis, Roscoe Consulting Unavailable Koram, Gina Charito Consulting Unavailable Koram, Gina Charito Admitting Unavailable Jeffrey Campos Attending Unavailable [facility] Unavailable Dominick Denny D.O. Consulting Unavailable Lenard, Metz Consulting Unavailable [place], Robert Consulting Unavailable Jluis, Roscoe Consulting Unavailable Koram, Gina Charito Consulting Unavailable Koram, Gina Charito Admitting Unavailable [place], Tifton Attending Unavailable [facility] Unavailable Dominick Denny D.O. Consulting Unavailable Lenard, Metz Consulting Unavailable [place], Robert Consulting Unavailable Jluis, Roscoe Consulting Unavailable [place], Tifton Consulting Unavailable Koram, Gina Charito Admitting Unavailable Jeffrey Campos Attending Unavailable [facility] Unavailable Dominick Denny D.O. Consulting Unavailable Lenard, Metz Consulting Unavailable [place], Robert Consulting Unavailable Jluis, Roscoe Consulting Unavailable [place], Tifton Consulting Unavailable Koram, Gina Charito Admitting Unavailable Paintsil, Tifton Attending Unavailable [facility] Unavailable Dominick Denny D.O. Consulting Unavailable Lenard, Sebastien Consulting Unavailable Lena, Robert Consulting Unavailable Jluis, Roscoe Consulting Unavailable Paintsil, Tifton Consulting Unavailable Koram, Gina Charito Admitting Unavailable Jeffrey Campos Attending Unavailable [facility] Unavailable Dominick Denny D.O. Consulting Unavailable Lenard, Sebastien Consulting Unavailable Lena, Robert Consulting Unavailable Jluis, Roscoe Consulting Unavailable Paintsil, Tifton Consulting Unavailable Koram, Gina Charito Admitting Unavailable Jeffrey Campos Attending Unavailable [facility] Unavailable Dominick Denny D.O. Consulting Unavailable Lenard, Metz Consulting Unavailable Lena, Robert Consulting Unavailable Jluis, Roscoe Consulting Unavailable Paintsil, Tifton Consulting Unavailable Koram, Gina Charito Admitting Unavailable Paintsil, Tifton Attending Unavailable [facility] Unavailable Dominick Denny D.O. Consulting Unavailable Lenard, Metz Consulting Unavailable Lena, Robert Consulting Unavailable Jluis, Roscoe Consulting Unavailable Paintsil, Tifton Consulting Unavailable Koram, Gina Charito Admitting Unavailable Paintsil, Tifton Attending Unavailable [facility] Unavailable Dominick Denny D.O. Consulting Unavailable Lenard, Metz Consulting Unavailable [place], Robert Consulting Unavailable Jluis, Roscoe Consulting Unavailable Paintsil, Tifton Consulting Unavailable Koram, Gina Charito Admitting Unavailable Dominick Denny D.O. Attending Unavailable [facility] Unavailable Dominick Denny D.O. Consulting Unavailable Lenard, Sebastien Consulting Unavailable Lena, Robert Consulting Unavailable Jluis, Roscoe Consulting Unavailable Paintsil, Tifton Consulting Unavailable Koram, Gina Charito Admitting Unavailable Leonard Chavez Attending Unavailable [facility] Unavailable Dominick Denny D.O. Consulting Unavailable Lenard, Metz Consulting Unavailable [place], Robert Consulting Unavailable Jluis, Roscoe Consulting Unavailable [place], Leonard Consulting Unavailable Koram, Gina Charito Admitting Unavailable Dominick Denny D.O. Attending Unavailable [facility] Unavailable Dominick Denny D.O. Consulting Unavailable Lenard, Metz Consulting Unavailable [place], Robert Consulting Unavailable Jluis, Roscoe Consulting Unavailable [place], Leonard Consulting Unavailable Koram, Gina Charito Admitting Unavailable Dominick Denny D.O. Attending Unavailable [facility] Unavailable Dominick Denny D.O. Consulting Unavailable Lenard, Sebastien Consulting Unavailable Lena, Robert Consulting Unavailable Jluis, Roscoe Consulting Unavailable Christophe, Leonard Consulting Unavailable Koram, Gina Charito Admitting Unavailable Leonard Chavez Attending Unavailable [facility] Unavailable Dominick Denny D.O. Consulting Unavailable Lenard, Metz Consulting Unavailable Lena, Robert Consulting Unavailable Jluis, Roscoe Consulting Unavailable [place], Leonard Consulting Unavailable Koram, Gina Charito Admitting Unavailable Leonard Chavez Attending Unavailable [facility] Unavailable Dominick Denny D.O. Consulting Unavailable Lenard, Metz Consulting Unavailable [place], Robert Consulting Unavailable Jluis, Roscoe Consulting Unavailable [place], Leonard Consulting Unavailable Koram, Gina Charito Admitting Unavailable Dominick Denny D.O. Attending Unavailable [facility] Unavailable Dominick Denny D.O. Consulting Unavailable Lenard, Metz Consulting Unavailable [place], Robert Consulting Unavailable Jluis, Roscoe Consulting Unavailable [place] Leonard Consulting Unavailable Lenard, Metz Attending Unavailable Jeffrey Campos Referring Unavailable Lenard, Metz Attending Unavailable Li, Robert Referring Unavailable PROBLEMS PROBLEMS DATE TYPE CONDITION / CODE ATTENDING STATUS SOURCE Unknown I50.22 - Chronic Sebastien Weinberg Active [place] [facility] systolic (congestive) Community heart failure / Hospital I50.22(ICD-10) Repository Unknown I48.0 - Paroxysmal Sebastien Weinberg Active [place] [facility] atrial fibrillation / Community I48.0(ICD-10) Hospital Repository Unknown I25.10 - Sebastien Weinberg Active [facility] Atherosclerotic heart Community disease of [facility] coronary artery Repository without angina pectoris / I25.10(ICD-10) Unknown R94.31 - Abnormal Sebastien Weinberg Active [facility] 9 electrocardiogram Community [ECG] [EKG] / Hospital R94.31(ICD-10) Repository Admitting Acute respiratory Leonard Chapa [facility] 8 Diagnosis distress / System R06.03(ICD-10) Repository Admitting Malfunction of Leonard Chapa [facility] 8 Diagnosis tracheostomy stoma / System J95.03(ICD-10) Repository Admitting Cardiomyopathy, Leonard Chapa [facility] Diagnosis unspecified / System I42.9(ICD-10) Repository Admitting Heart failure, Leonard Chapa [facility] Diagnosis unspecified / System I50.9(ICD-10) Repository Admitting Chronic obstructive Leonard Chapa [facility] 8 Diagnosis pulmonary disease, System unspecified / Repository J44.9(ICD-10) Admitting Type 2 diabetes Leonard Chapa [facility] 8 Diagnosis mellitus without System complications / Repository E11.9(ICD-10) Admitting Personal history of Leonard Chapa [facility] 8 Diagnosis nicotine dependence / System Z87.891(ICD-10) Repository Unknown M79.662 - Pain in left JanDarryn marques Active [place] [facility] lower leg / Community M79.662(ICD-10) Hospital Repository Unknown J44.9 - Chronic SteffanyJeffrey grajeda Active [facility] 8 obstructive pulmonary Community disease, unspecified / Hospital J44.9(ICD-10) Repository Unknown I25.5 - Ischemic Lenard, Sebastien Active [place] [facility] cardiomyopathy / Community I25.5(ICD-10) Hospital Repository Unknown I11.0 - Hypertensive LenardTammy bejaranol Active [facility] 8 heart disease with Community heart failure / Hospital I11.0(ICD-10) Repository Unknown I50.43 - Acute on LenardSebastien bejarano Active [place] 8 chronic combined Community systolic (congestive) Hospital and diastolic Repository (congestive) heart failure / I50.43(ICD-10) Unknown J96.01 - Acute [place], Active [facility] 8 respiratory failure [facility] with hypoxia / Hospital J96.01(ICD-10) Repository PROCEDURES PROCEDURES No Procedure Records FoundRESULTS RESULTS 12 LEAD ELECTROCARDIOGRAM Observed: 01/27/2018 Status: F Source: JAY 2:14 PM [facility] REPOSITORY [facility] Cardiovascular Services [address] [place] [address] 12 Lead EKG 01/24/18 2314 MR#: [id number] Acct: [id number] Name: MANGO MCGARRY Rep #: [id number] : 1960 58 From: Sebastien Weinberg MD Attending Dr: Leonard Chavez MD Status: DIS IN Ordering Dr: Leonard Chavez MD Date: 01/24/18 Location: [facility] Sex: M C Admitted: 01/22/18 Test Reason : Blood Pressure : / mmHG Vent. Rate : 077 BPM Atrial Rate : 077 BPM P-R Int : 160 ms QRS Dur : 092 ms QT Int : 400 ms P-R-T Axes : 000 027 147 degrees QTc Int : 452 ms Sinus rhythm with Premature atrial complexes Cannot rule out Anterior infarct , age undetermined ST AND T wave abnormality, consider lateral ischemia Abnormal ECG When compared with ECG of 22-JAN-2018 13:53, MANUAL COMPARISON REQUIRED, DATA IS UNCONFIRMED Confirmed by SEBASTIEN WEINBERG MD ([id number]), publication editor SELINA TSANG ([id number]) on 01/27/2018 2:14:14 PM Referred By: Confirmed By:SEBASTIEN WEINBERG MD 01/27/18 1414 Date Sebastien Weinberg MD CC: Leonard Chavez MD; Tio Parker MD Signed 12 LEAD ELECTROCARDIOGRAM Observed: 01/25/2018 Status: F Source: [facility] 3:59 PM [facility] REPOSITORY [facility] Cardiovascular Services [address] [place] [address] 12 Lead EKG 01/22/18 1353 MR#: [id number] Acct: [id number] Name: MANGO MCGARRY Rep #: [id number] : 1960 58 From: Sebastien Weinberg MD Attending Dr: Leonard Chavez MD Status: DIS IN Ordering Dr: Braden Hernandez MD Date: 01/22/18 Location: [facility] Sex: M C Admitted: 01/22/18 Test Reason : Blood Pressure : / mmHG Vent. Rate : 072 BPM Atrial Rate : 072 BPM P-R Int : 180 ms QRS Dur : 098 ms QT Int : 406 ms P-R-T Axes : 054 066 146 degrees QTc Int : 444 ms Sinus rhythm with Premature atrial complexes Low voltage QRS Cannot rule out Anterior infarct (cited on or before 30-JUN-2017) Abnormal ECG When compared with ECG of 20-DEC-2017 04:48, Questionable change in initial forces of Anterior leads T wave inversion now evident in Lateral leads Confirmed by LENARD CABA, SEBASTIEN ([id number]), publication editor SELINA TSANG ([id number]) on 01/25/2018 3:58:31 PM Referred By: KIRIT Confirmed By:SEBASTIEN WEINBERG MD 01/25/18 1558 Date Sebastien Weinberg MD CC: Leonard Chavez MD; Braden Hernandez; Tio Parker MD Signed DISCHARGE SUMMARY Observed: 01/25/2018 Status: F Source: [facility] 2:22 PM [facility] HOSPITAL REPOSITORY [facility] Medical Records Department [address] [place] [address] Discharge Summary 01/25/18 1239 MR#: [id number] Acct: [id number] Name: MANGO MCGARRY Rep #: [id number] : 1960 58 From: Leonard Chavez MD PCP: Tio Parker MD Status: DIS IN Y Location: [place] [address] Discharge Date and Diagnosis Date of Admission: 01/22/18 Date of Discharge: 01/25/18 - Primary Discharge Diagnosis Acute on chronic hypoxic and hypercapnic respiratory failure due to suspected mucous plugging - Secondary Discharge Diagnosis Chronic Problems (Last Updated 01/22/18 @ 13:13 by Braden Hernandez MD) History of anterolateral myocardial infarction (Chronic 05/03/12) History of cardiac arrest (Chronic 06/22/17) Nicotine dependence, cigarettes, uncomplicated (Chronic) Chronic systolic congestive heart failure (Chronic) Presence of stent in coronary artery (Chronic 06/29/17) PCI/stent LAD w/ 4.0 x 32 mm Promus 2012 ; PCI/GISSEL to Prox LAD w/ 4.0 x 20 mm Promus 02/25/16 for instent restenosis; PTCA/GISSEL to LCX 06/29/2017 DM2 (diabetes mellitus, type 2) (Chronic) Venous stasis of lower extremity (Chronic) Ischemic cardiomyopathy (Chronic) EF of 35% on Cath in February of 2014; 50% per echo 06/21/2017 Hospital Course and Treatment Consultations 01/22/18 12:47 Consult: Onc/Wound/product safety and standards engineer Routine Comment: 01/22/18 13:00 Consult: Onc/Wound/product safety and standards engineer Routine Comment: Reason for Consult:: LLE tender purple wound Operations: None Summary of Care Provided: Patient is a 58-year-old gentleman who was on admission for almost a month discharged to a group home facility was brought back as a result of increasing work of breathing with suspected mucus plugging. Admitted to monitored bed for subsequent management 1. Acute on chronic hypoxic and hypercapnic respiratory failure due to suspected mucous plugging admitted to monitored bed consultation placed to Dr. Denny with pulmonary medicine plan is to continue pulmonary toileting in addition to supplemental oxygen to keep oxygen saturation greater than 90 2. Acute tracheobronchitis with Serratia patient was discharged on Levaquin 3. Chronic systolic heart failure with an ejection fraction of 25% well compensated 4 Hypertension-blood pressure controlled, home medications continued with dose adjustment as needed 5. Diabetes mellitus type II: Blood glucose well controlled on on long acting insulin, Accu-Cheks a.c. and at bedtime and covered with sliding scale insulin 6. Paroxysmal atrial fibrillation currently in sinus rhythm 7. Coronary artery disease with previous stent placement patient is on dual antiplatelet therapy with aspirin and Plavix in addition to losartan and atorvastatin 8. Morbid obesity with BMI of 46 9. Obstructive sleep apnea 10. Obesity hypoventilation syndrome 11. Dyslipidemia-patient is on statin therapy, continued at home dose 12. Physical deconditioning: Requested for PT OT eval and social services designee to assist with discharge planning 13. DVT prophylaxis SC Lovenox 14. Hypokalemia corrected per protocol Objective: GENERAL: cooperative HEENT: Atraumatic; EYES; Anicteric, Normal Conjunctiva NECK; Trach collar in place. RESPIRATORY: Diminished to auscultation bilaterally, CARDIOVASCULAR: Regular S1 S2, GI: soft, non-tender, normoactive bowel sounds, NEURO: Awake; no lateralizing signs. PSYCH; flat affect - Physical Exam Vital Signs Temp Pulse Resp BP Pulse Ox 98.0 F 89 19 H 95/53 L 97 01/25/18 10:15 01/25/18 11:08 01/25/18 10:50 01/25/18 10:15 01/25/18 10:15 Oxygen Flow Rate (L/min) 10 Oxygen Delivery Method Trach Collar Weight: 144.5 kg Body Mass Index (BMI) 46.5 Finger Stick Blood Glucose 193 Intake and Output for Last 24 Hours Intake Total 1731 / 1731 3693 / 3693 2044 / 2044 Output Total 1325 / 1325 1550 / 1550 2350 / 2350 Balance 406 / 406 2143 / 2143 -306 / -306 Microbiology Past 72 Hours 01/23/18 16:05 Gram Stain - Final Sputum, Tracheal Aspirate Respiratory Culture - Final 01/23/18 13:20 Respiratory Panel (PCR) - Final Mucosa - Nasopharyngeal Laboratory Tests Past 24 Hrs Sodium 138 Potassium 3.1 L Chloride 97 L Carbon Dioxide 31.0 Anion Gap 10 BUN 16 POC Glucose POC Glucose 102 109 115 H POC Glucose 157 H Home Medications: Medications to take at Discharge Clopidogrel Bisulfate [Plavix] 75 mg PO DAILY 06/20/17 Gabapentin [Neurontin] 400 mg PO TID 06/20/17 Montelukast [Singulair] 10 mg PO DAILY 06/20/17 fluticasone-vilanterol 1 puff INHALATION QDAY 07/27/17 pantoprazole 20 mg tablet,delayed release 20 mg PO QDAY 07/27/17 Prednisone 10 mg PO DAILY 12/12/17 Acetaminophen Liquid [Tylenol Liquid] 650 mg GT Q6H PRN PRN udc 01/11/18 Albuterol Aerosols [Ventolin Aerosols] 2.5 mg INHALATION Q2H PRN PRN vial.neb. 01/11/18 Hydrocortisone 2.5% Crm [Hytone] 1 applic TOPICAL TID PRN PRN tube 01/11/18 Insulin Lispro [Humalog KwikPen] See Protocol SC insuln.pen 01/11/18 Magnesium Hydroxide [Milk Of Magnesia] 30 ml PO DAILY PRN PRN udc 01/11/18 Albuterol Aerosols [Ventolin Aerosols] 2.5 mg INHALATION Q6HWA.RT PRN 01/22/18 Aspirin [Aspirin, Baby] 81 mg GT DAILY 01/22/18 Atorvastatin Calcium [Lipitor] 40 mg GT QHS 01/22/18 Bisacodyl [Dulcolax] 5 mg PO DAILY PRN 01/22/18 Bisacodyl [Dulcolax] 10 mg RECTAL DAILY PRN PRN 01/22/18 Carvedilol [Coreg (Beta Lori)] 3.125 mg PO BID 01/22/18 Chlorhexidine 15 ml PO BID 01/22/18 Escitalopram Oxalate [Lexapro] 10 mg PO DAILY 01/22/18 Furosemide [Lasix] 80 mg PO TID 01/22/18 Insulin Glargine [Lantus SoloStar Pen] 35 units SC 01/22/18 Losartan Potassium [Cozaar] 25 mg PO DAILY 01/22/18 Potassium Cloride Effervescent [Potassium Chl 25 Meq Eff (For Liquid)] 25 meq GT TID 01/22/18 Ranitidine HCl 150 mg GT DAILY 01/22/18 levoFLOXacin tablet [Levaquin tablet] 750 mg GT DAILY@0600 #7 tab 01/25/18 Following Prescrptions Were Given to Patient: levoFLOXacin tablet [Levaquin tablet] 750 mg GT DAILY@0600 #7 tab Primary Care Physician: Tio Parker MD [Primary Care Provider] - Please follow up with your Primary Care Physician in: in 2- 3 weeks Disposition: Care Home facility Minutes spent on discharge:: 45 Patient Condition:: Stable Medical Necessity - Tobacco Use Smoking Status: Former smoker Meaningful Use Info Meaningful Use Diagnoses (Choose all that apply): None applicable Code Visit Inpatient E AND M: 08719 Disch Hosp 01/25/18 1422 <Electronically signed by Leonard Chavez MD> Date Leonard Chavez MD Cosigner Signature (if applicable): Date CC: Leonard Chavez MD; Tio Parker MD Signed TRANSFER TO EXTENDED Observed: 01/25/2018 Status: F Source: [facility] 12:39 PM [facility] REPOSITORY [facility] Medical Records Department [address] [place] [address] Transfer to [facility] MR#: [id number] Acct: [id number] Name: MANGO MCGARRY [place] Rep #: [id number] : 1960 58 From: Leonard Chavez MD PCP: Tio Parker MD Status: ADM IN [place] (Patient) (Health Ins. Claim No.) (Day of Discharge to Facility) Certification of patient admission REQUIRED AT TIME OF ADMISSION. I CERTIFY THAT POST-HOSPITAL ECF SERVICES ARE REQUIRED TO BE GIVEN ON AN IN-PATIENT BASIS BECAUSE OF THE ABOVE NAMED PATIENT'S NEED FOR SNF CARE ON A CONTINUING BASIS FOR THE CONDITION(S) FOR WHICH HE/SHE WAS RECEIVING IN-PATIENT HOSPITAL SERVICES PRIOR TO HIS/HER TRANSFER TO THE F. 01/25/18 1239 <Electronically signed by Leonard Chavez MD> Date Leonard Chavez MD - Diet 01/25/18 11:27 Diabetic [Diet: Calorie Controlled] Food consistency:: Mechanical Soft/Ground Liquid Consistency:: Regular/Thin Dietary Modifications:: Mechanical Soft Diet Is pt able to select menu?: Yes Diet Comments: Supervision; finger occlusion w/ swallow; limit meals 10 min; chair only How many daily calories?: 1800 calorie - Wound(s) Lt outer leg purple symmetrical [place] Wound Type: Pressure Injury left lateral lower leg Wound Type: Skin Tear Dressing Change: opsite - Therapies Physical Therapy: Eval and Treat Occupational Therapy: Eval and Treat Speech Therapy: Eval and Treat - Allergies/Procedures Done in Hospital Allergies/Adverse Reactions: Allergies adhesive tape Adverse Reaction (Verified 11/10/17 12:17) Rash - Type of Care/Length of Stay Estimated LOS: More Than 30 Days Type of Care Needed: Skilled Rehab Potential: Fair Prognosis: Fair - Additional Orders/Day of Discharge Day of Discharge: 01/25/18 - Dietary and Speech Recommendations Dietitian Recommendations/Changes: Suggest increase Vital AF 1.2 Jeremiah as tolerated to goal rate 70 ml/hr with 60 ml water flush 4 x daily to provide 2016 kcal, 126 gm protein, 1602 ml free water per day. Continue NPO status. Weigh daily. - Follow Up Care Primary Care Physician: Tio Parker MD [Primary Care Provider] - Please follow up with your Primary Care Physician in: in 2- 3 weeks 01/25/18 1239 <Electronically signed by Leonard Chavez MD> Date Leonard Chavez MD CC: Jeffrey Campos MD; Tio Parker MD Signed BEDSIDE GLUCOSE Collected: 01/25/2018 Status: F Source: [facility] 11:27 AM [facility] REPOSITORY TYPE CODE TESTS RESULT OUT OF RANGE REFERENCE UNITS LAB L501.080 70-110 mg/dL Normal BEDSIDE GLU 102 Result Comment: MANAGEMENT OF PATIENT CARE PER NURSING PROTOCOL Performed By: #### L501.080 #### [facility] Laboratory Point of Care [address] [place] [address] BEDSIDE GLUCOSE Collected: 01/25/2018 Status: F Source: [facility] 6:54 AM [facility] REPOSITORY TYPE CODE TESTS RESULT OUT OF RANGE REFERENCE UNITS LAB L501.080 70-110 mg/dL Normal BEDSIDE GLU 109 Result Comment: MANAGEMENT OF PATIENT CARE PER NURSING PROTOCOL Performed By: #### L501.080 #### [facility] Point of Care [address] [place], [place] [address] BASIC METABOLIC Collected: 01/25/2018 Status: F Source: [facility] PROFILE (BMP) 5:19 AM [facility] REPOSITORY TYPE CODE TESTS RESULT OUT OF RANGE REFERENCE UNITS LAB L501.0100 74-106 mg/dL High GLU 120 Result Comment: Fasting Glucose result from 100 to 125 mg/dL suggests IMPAIRED HOMEOSTASIS per A.D.A. criteria. Please note revised GLUCOSE reference range effective 2017. LAB L501.1000 7-18 mg/dL Normal BUN 16 LAB L501.1100 0.70-1.30 mg/dL Low CREAT,SERUM 0.57 Result Comment: The validity of the calculated GFR AND GFRAA in patients over 70 years has not been determined. Clinical correlation is essential. LAB L501.1110 >60 mL/min Normal EST GFR 154 Result Comment: Non- GFR Calc LAB L501.1115 >60 mL/min Normal EST GFR - AA 187 Result Comment: GFR Calc LAB L501.1255 ml/min Normal Estimated CRCL 133.33 LAB L501.1300 10-20 RATIO High BUN/CRE 28.0 LAB L501.2200 8.5-10 mg/dL .1 CA Normal 8.7 LAB L501.5300 136-14 mmol/L 5 NA Normal 138 LAB L501.5600 3.5-5. mmol/L Low 1 K 3.1 LAB L501.5900 98-107 mmol/L Low CL 97 LAB L501.6100 21.0-3 mmol/L 2.0 CO2 Normal 31.0 LAB L501.6200 5-15 GAP Normal 10 Performed By: #### L500.2500, L501.5200 #### [facility] [address] [place], [address] MAGNESIUM Collected: 01/25/2018 Status: F Source: [facility] 5:19 AM [facility] REPOSITORY TYPE CODE TESTS RESULT OUT OF RANGE REFERENCE UNITS LAB L501.5200 1.6-2.6 mg/dL Normal MG 2.0 Performed By: #### L500.2500, L501.5200 #### [facility] [address] [place], [address] BEDSIDE GLUCOSE Collected: 01/24/2018 Status: F Source: JAY 10:23 PM [facility] REPOSITORY TYPE CODE TESTS RESULT OUT OF REFERENCE UNITS RANGE LAB L501.080 70-110 mg/dL High BEDSIDE GLU 115 Result Comment: MANAGEMENT OF PATIENT CARE PER NURSING PROTOCOL Performed By: #### L501.080 #### [facility] Point of Care [address] [facility] [place] [address] BEDSIDE GLUCOSE Collected: 01/24/2018 Status: F Source: JAY 5:05 PM [facility] REPOSITORY TYPE CODE TESTS RESULT OUT OF REFERENCE UNITS RANGE LAB L501.080 70-110 mg/dL High BEDSIDE GLU 157 Result Comment: MANAGEMENT OF PATIENT CARE PER NURSING PROTOCOL Performed By: #### L501.080 #### [facility] Point of Care [address] [facility] [place] [address] MODIFIED BARIUM Observed: 01/24/2018 Status: F Source: JAY SWALLOW STUDY 3:16 PM [facility] REPOSITORY [facility] Speech Pathology [address] [place], [place] [address] [address] Modified Barium Swallow Study MR#: [id number] Acct: [id number] Name: MANGO MCGARRY Rep #: [id number] : 1960 58 From: Cathryn Sharif M.A. [facility] PRIMARY / SECONDARY DIAGNOSIS: dysphagia REFERRING PHYSICIAN: Dr. Chavez CURRENT DIET: NPO w/ alternative means of nutrition (PEG; Vital AF 1.2 at 35mL/hr.) DENTITION: present MENTAL STATUS: able to follow commands for participation in [facility] STATUS: Tracheostomy tube in place (Shiley 8 cuffed; deflated) w/ 8L O2 via trach collar PREVIOUS MODIFIED BARIUM SWALLOW STUDY: n/a REASON FOR REFERRAL: Pt is a 58 YOM admitted to [facility] on 01/22/2018 d/t acute on chronic hypoxic respiratory failure likely due to excessive secretions and mucus plugging of the tracheostomy tube; very recent prolonged hospitalization resulting in tracheostomy and PEG tube placement. Per Pt, underwent Kelsey Blue Dye test at [facility] in [place] [address] on /Tuesday prior to admission, states he passed , though no further (or prior) PO trials / placement reported, w/ development of hypoxic respiratory failure over weekend. Pt strongly desires PO intake. MEDICAL HISTORY: History of anterolateral myocardial infarction; history of cardiac arrest, nicotine dependence, cigarettes, uncomplicated; Chronic systolic congestive heart failure, presence of stent in coronary artery, PCI/stent LAD w/ 4.0 x 32 mm Promus 2012 ; PCI/GISSEL to Prox LAD w/ 4.0 x 20 mm Promus 02/25/16 for instent restenosis, PTCA/GISSEL to LCX 06/29/2017; diabetes mellitus, type 2; venous stasis of lower extremity; ischemic cardiomyopathy, EF of 35% on Cath in February of 2014; 50% per echo 06/21/2017 STUDY FINDINGS: Patient participated in a Modified Barium Swallow (MBS) study on 01/24/2018. Dr. Izquierdo was the radiologist present for this evaluation. This study was recorded in the lateral view and images were sent to PACs for storage. The following consistencies were presented to this patient for analysis of oropharyngeal swallow function: thin liquid, nectar thickened liquid, pudding, and a regular textured, Suzy Doone cookie. Results of the MBS are as follows: PENETRATION / ASPIRATION SCALE (PLEITEZ): 1 = does not enter airway 2 = enters airway/above vocal folds/ejected 3 = enters airway/above vocal folds/not ejected 4 = enters airway/contacts vocal folds/ejected 5 = enters airway/contacts vocal folds/not ejected 6 = enters airway/below vocal folds/ejected 7 = enters airway/below vocal folds/not ejected despite effort 8 = enters airway/below vocal folds/no effort PENETRATION / ASPIRATION SCALE (SCORE): 1. Thin liquid teaspoon: 2 2. Thin liquid teaspoon: 5 unable to rule out silent aspiration d/t patient s body habitus and fluoroscopy suite limitations which precluded adequate view 3. Thin liquid cup w/ patient attempting finger occlusion of trach: 5 suspect aspiration d/t cough, although unable to confirm under fluoroscopy d/t patient s body habitus and fluoroscopy suite limitations which precluded adequate view 4. [place] thickened liquid cup w/ SENIOR SVP providing finger occlusion of trach: 1 5. [place] thickened liquid cup w/ SENIOR SVP providing finger occlusion of trach: 1 6. Thin liquid cup w/ SENIOR SVP providing finger occlusion of trach: 1 7. Pudding w/ SENIOR SVP providing finger occlusion of trach: 1 8. Cookie w/ SENIOR SVP providing finger occlusion of trach: 1 9. Thin liquid cup w/ SENIOR SVP providing finger occlusion of trach: 2 IMPRESSION: ORAL PHASE: LABIAL SEAL: interlabial escape, no progression to anterior lip TONGUE CONTROL DURING BOLUS MANIPULATION: cohesive bolus between tongue to palatal seal BOLUS PREPARATION / MASTICATION: timely and efficient chewing and mashing BOLUS TRANSPORT / LINGUAL MOTION: slowed tongue motion ORAL RESIDUE: residue collection on oral structures PHARYNGEAL PHASE: INITIATION OF PHARYNGEAL SWALLOW: bolus head in valleculae at first hyoid excursion SOFT PALATE ELEVATION: no bolus between soft palate and pharyngeal wall LARYNGEAL ELEVATION: partial superior movement of thyroid cartilage/partial approximation of arytenoids cartilage to epiglottic petiole ANTERIOR HYOID EXCURSION: complete anterior movement EPIGLOTTIC MOVEMENT: complete epiglottic inversion LARYNGEAL VESTIBULE CLOSURE AT HEIGHT OF SWALLOW: complete laryngeal vestibule closure with no air/contrast in laryngeal vestibule PHARYNGEAL STRIPPING WAVE: pharyngeal stripping wave present/complete PHARYNGOESOPHAGEAL SEGMENT OPENING: complete distension and complete duration with no obstruction of flow TONGUE BASE RETRACTION: trace column of contrast between tongue base and posterior pharyngeal wall PHARYNGEAL RESIDUE: trace residue within or on pharyngeal structures ESOPHAGEAL PHASE: ESOPHAGEAL BOLUS CLEARANCE IN THE UPRIGHT POSITION: could not view d/t patient s body habitus and fluoroscopy suite limitations EFFECTS OF TREATMENT STRATEGIES ATTEMPTED: Double swallow = effective to clear oral/oropharyngeal residue Finger occlusion of trach = effective INTERPRETATION OF RESULTS: Patient presents with mild oropharyngeal dysphagia (R13.12) Oral phase primarily marked by slower lingual motion for A-P bolus transfer/clearance w/ oral residue retention (lingual/base of tongue) post deglutition. Use of a double swallow was effective to clear retained contrast. Pharyngeal phase primarily marked by a mild delay in pharyngeal swallow onset timing w/ bolus head reaching the valleculae at time prior to swallow onset. Suboptimal bolus location upon swallow onset did not impact overall swallow performance. Reduced closure of the airway during deglutition attributed to insufficient laryngeal vestibule closure/pressure d/t open trach resulting in penetration to the vocal folds w/ suspect aspiration of thin liquids. Aspiration is suspected d/t cough w/ contrast reaching the vocal folds, although unable to confirm under fluoroscopy d/t patient s body habitus and fluoroscopy suite limitations which precluded adequate view of vocal folds/trachea. Use of finger occlusion when swallowing was effective to restore proper pressure to the swallow mechanism for adequate laryngeal vestibule closure/airway protection across all consistencies assessed. RECOMMENDATIONS: DIET TEXTURE RECOMMENDATIONS: Will recommend a regular textured, thin liquid diet w/ patient to remain NPO w/ all nutrition/hydration/medication via PEG, pending SENIOR SVP initiation of PO intake w/ direct supervision of initial meal COMPENSATORY STRATEGIES RECOMMENDED: Supervision, finger occlusion vs. PMSV for all swallows, reduced bolus volume, seated upright at 90 degrees during PO intake, remain upright for 30-60 minutes post meal (GERD precaution) NEED FOR SKILLED SPEECH THERAPY SERVICES: This patient requires intensive skilled speech-language intervention for dysphagia targeting continued diet texture management w/ training and implementation of recommended compensatory strategies. ADDITIONAL COMMENTS/RECOMMENDATIONS: Results and recommendations were discussed with the Patient immediately following MBS completion, with the Patient verbalizing understanding and agreement with all recommendations and education provided. Results and recommendations conveyed to CECIL Mercado via telephone following MBS completion. IMAGE COUNT: [id number]/24/18 1516 <Electronically signed by Cathryn Sharif M.A., CCC-SENIOR SVP> Date Cathryn Sharif M.A., CCC-SENIOR SVP Co-Signature Required for all Medicare patients Date/Time Co-Signature CC: BEDSIDE GLUCOSE Collected: 01/24/2018 Status: F Source: ANÍBAL 11:46 AM [facility] REPOSITORY TYPE CODE TESTS RESULT OUT OF REFERENCE UNITS RANGE LAB L501.080 70-110 mg/dL High BEDSIDE GLU 149 Result Comment: MANAGEMENT OF PATIENT CARE PER NURSING PROTOCOL Performed By: #### L501.080 #### Aníbal [facility] Laboratory Point of Care [address] [place] [address] SWALLOWING FUNCTION Observed: 01/24/2018 Status: F Source: JAY W/VIDEO 11:04 AM [facility] REPOSITORY [facility] Imaging Services [address] [place] [address] Swallowing Function w/Video MR#: [id number] Acct: [id number] Name: MANGO MCGARRY Rep #: [id number] : 1960 M 58 From: Akhil Izquierdo MD PCP: Tio Parker MD Status: DIS IN Study: Swallowing Function w/Video Date of Exam: 01/24/18 Exam# [id number] Ordering Dr: Leonard Chavez MD STUDY: SWALLOWING STUDY REASON FOR EXAM: Male, 58 years old. Dysphagia. TECHNIQUE: The examination was performed with Speech Pathology in attendance. Under fluoroscopic observation, the patient ingested thin barium, thick barium, barium pudding, and barium coated cracker. FLUOROSCOPY TIME: 2:07 minutes/seconds. 2006 images were obtained. RADIOLOGIST INVOLVEMENT: Radiologist was present and providing direct supervision. COMPARISON: None. FINDINGS: The following was observed during swallowing of the various mixtures of barium: Thin Barium: Transient penetration with ingestion of thin liquids. Thick Barium: There was no evidence of aspiration or laryngeal penetration. Barium Pudding: There was no evidence of aspiration or laryngeal penetration. Barium Coated Cracker: There was no evidence of aspiration or laryngeal penetration. RAD/Swallowing Function w/Video IMPRESSION: Transient penetration with ingestion of thin liquids. The swallow study findings were discussed with the patient by the speech pathologist at the conclusion of the examination. Please see speech pathology report for more information and recommendations. Electronically Signed: Akhil Izquierdo MD at 12:20 EST Tel [phone], Service support , CC: Leonard Chavez MD; Tio Parker MD Clerk Cashier: Signed CONSULTATION Observed: 01/24/2018 Status: F Source: ANÍBAL 7:36 AM [facility] REPOSITORY [facility] Medical Records Department [address] [place] [address] Consultation 01/23/18 1409 MR#: [id number] Acct: [id number] Name: MANGO MCGARRY Rep #: [id number] : 1960 58 From: Dominick Denny DO PCP: Tio Parker MD Status: ADM IN Y Location: [place] [address] Reason for Consult Date of Consultation: 01/23/18 Reason for Consultation: Acute on chronic respiratory failure History of Present Illness: The patient is a 58-year-old male, well-known to me from his previous hospitalization, who presented to the emergency department from his group home facility with acute on chronic hypoxic respiratory failure due to transient mucous plugging. The patient was recently admitted to the hospital December 12 - January 11 with acute on chronic combined respiratory failure secondary to decompensated heart failure, bronchospastic airway disease and aspiration pneumonia. The patient's hospital course was complicated by 2 independent self extubations leading to aspiration of gastric contents. The patient did require eventual tracheostomy and PEG tube placement. Apparently, the patient became short of breath while at his nursing facility with worsening hypoxia. It is not known to me how aggressively the patient was receiving bronchopulmonary hygiene at his group home facility. On arrival to the emergency department, the patient was aggressively suctioned with subsequent improvement in his respiratory status. He has remained afebrile. Initial laboratory evaluation revealed no evidence of a leukocytosis. Chemistry profile was notable only for a potassium of 3.2. Plain film chest x-ray revealed no acute cardiopulmonary process. The patient was subsequently admitted to the progressive care unit for further management. 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) History of cardiac arrest (Chronic 06/22/17) Nicotine dependence, cigarettes, uncomplicated (Chronic) Chronic systolic congestive heart failure (Chronic) Presence of stent in coronary artery (Chronic 06/29/17) PCI/stent LAD w/ 4.0 x 32 mm Promus 2012 ; PCI/GISSEL to Prox LAD w/ 4.0 x 20 mm Promus 02/25/16 for instent restenosis; PTCA/GISSEL to LCX 06/29/2017 DM2 (diabetes mellitus, type 2) (Chronic) Venous stasis of lower extremity (Chronic) Ischemic cardiomyopathy (Chronic) EF of 35% on Cath in February of 2014; 50% per echo 06/21/2017 Medical History: Medical History (Last Updated 01/22/18 @ 13:13 by Braden Hernandez MD) History of anterolateral myocardial infarction (Chronic) Onset Date: 05/03/12 I25.2 History of cardiac arrest (Chronic) Onset Date: 06/22/17 Z86.74 Nicotine dependence, cigarettes, uncomplicated (Chronic) F17.210 EMILIA (obstructive sleep apnea) (Suspected) G47.33 Chronic systolic congestive heart failure (Chronic) I50.22 DM2 (diabetes mellitus, type 2) (Chronic) E11.9 Venous stasis of lower extremity (Chronic) I87.8 Ischemic cardiomyopathy (Chronic) I25.5 EF of 35% on Cath in February of 2014; 50% per echo 06/21/2017 Allergies adhesive tape Adverse Reaction (Verified 11/10/17 12:17) Rash Home Medications: Ambulatory Orders Medication Instructions Recorded Clopidogrel Bisulfate [Plavix] 75 mg PO DAILY 06/20/17 Gabapentin [Neurontin] 400 mg PO TID 06/20/17 Surgical History: Surgical History (Last Updated 01/22/18 @ 11:49 by Braden Hernandez MD) Presence of stent in coronary artery (Chronic) Onset Date: 06/29/17 Z95.5 PCI/stent LAD w/ 4.0 x 32 mm Promus 2012 ; PCI/GISSEL to Prox LAD w/ 4.0 x 20 mm Promus 02/25/16 for instent restenosis; PTCA/GISSEL to LCX 06/29/2017 Amputated great toe of left foot Z89.412 Surgical History: - - Tracheostomy, PEG tube insertion. Cardiac stents. Psychiatric History: No pertinent psych hx Lives: Long Term Smoking Status: Former smoker Alcohol: None Drugs: None - *Family History Paternal Family History: Family History (Last Reviewed 11/10/17 @ 12:19 by Mirna Patiño) Mother Diabetes Heart disease History Items: No pertinent history Maternal Family History: Family History (Last Reviewed 11/10/17 @ 12:19 by Mirna Patiño) Mother Diabetes Heart disease History Items: No pertinent history, - Review of Systems Constitutional: Denies: Chills, Fever, Weight Change HEENT: Denies: Head Aches, Sinus Congestion, Sinus Drainage Cardiovascular: Denies: Chest Pain, Palpitations Respiratory: Reports: Cough, Shortness of Breath, Sputum production Gastrointestinal: Denies: Abdominal Pain, Nausea, Vomiting Genitourinary: Denies: Dysuria Musculoskeletal: Denies: Joint Pain, Joint Tenderness Neurological: Denies: Numbness, Tingling, Focal weakness Psychiatric: Denies: Anxiety, Depression, Homicidal Ideations, Suicidal Ideations Hematologic/ Lymphatic: Denies: Easy Bruising, Easy Bleeding Objective: The patient's most recent lab work, culture data and imaging studies have all been personally reviewed. Sputum culture and respiratory viral panel are pending. - Physical Exam General: Alert, Cooperative, No apparent distress HEENT: Atraumatic, PERRLA, Normocephalic Oral: No Gingival or Mucosal Lesions/ Ulcerations Neck: Supple, No Nodes, Trachea Midline, - - Trach site is intact. Lungs: No rhonchi, No wheeze, No rales, Diminished Cardiovascular: Regular rate, Regular Rhythm, Normal S1, Normal S2, No murmurs Abdomen: Bowel Sounds Present, Soft, Non Tender, Obese, - - PEG site is intact. Extremities: No clubbing, No cyanosis, Edema Skin: No breakdown, - - Venous stasis dermatitis Musculoskeletal: No Tenderness to Palpation of Joints or Extremities, No Muscle Wasting Lymphatic: No Cervical, Supraclavicular, or Inguinal Adenopathy Neurological: Cranial nerves II-XII grossly intact, Neuro grossly intact Psych/Mental Status: Flat Affect Vital Signs Temp Pulse Resp BP Pulse Ox 37.0 C 74 20 H 103/61 94 01/23/18 09:12 01/23/18 10:50 01/23/18 10:50 01/23/18 09:12 01/23/18 09:12 Oxygen Flow Rate (L/min) 12 Oxygen Delivery Method Trach Collar Weight: 304 lb 7.334 oz Body Mass Index (BMI) 46.5 Finger Stick Blood Glucose 193 Intake and Output for Last 24 Hours Intake Total 838 / 838 755 / 755 Output Total 1525 / 1525 1075 / 1075 Balance -687 / -687 -320 / -320 Laboratory Tests Past 24 Hrs WBC 5.7 RBC 3.72 L Hgb 10.3 L Hct 32.1 L MCV 86.3 MCH 27.7 MCHC 32.1 POC Glucose POC Glucose 142 H 108 84 POC Glucose 71 Clinical Impression(s) from Imaging Studies Chest X-Ray 01/22/18 12:47 IMPRESSION: 1. No airspace consolidation or pleural effusion. 2. Decreased retrocardiac left lower lobe atelectasis as compared to the prior study. 3. Removal of right arm PICC. 4. Stable tracheostomy. Electronically Signed: Jv Smith MD at 15:19 EST , Service support , Assessment/Plan RECOMMENDATIONS: 1. Wean supplemental oxygen to maintain saturations 88-92%. 2. Obtain sputum culture and respiratory viral panel. 3. Continue scheduled aerosol treatments and diuretics. 4. Continue aggressive bronchopulmonary hygiene. 5. Start precertification for return to group home facility. IMPRESSIONS: 1. Acute on chronic combined respiratory failure secondary to transient mucous plugging The patient presented to the emergency department with acute on chronic respiratory failure, which developed as a consequence of transient mucous plugging. This resolved with aggressive bronchopulmonary hygiene. Unclear why this level of care was unable to be provided the patient at his group home facility. Regardless, upon admission to the hospital, the patient had return back to his baseline level from a respiratory perspective. He does not have evidence of an acute pulmonary infectious process on plain film chest imaging. Therefore, I do not feel that antibiotics are indicated. We will plan to continue scheduled bronchodilators and diuretics, per his outpatient regimen. 2. History of ischemic cardiomyopathy/heart failure Continue outpatient medical therapy. 3. Diabetes mellitus/chronic tobacco dependence/super morbid obesity/history of medical noncompliance/hypertension Complicates care, management, recovery and prognosis. Okay from my perspective to continue outpatient medical regimen. Physical therapy to continue to work with patient while admitted to the hospital. This note was generated with Innofide[employer] software. It may contain incorrect words, spelling, and punctuation that were not noted in checking the note before signing. Code Visit Inpatient Joseluis AND M: [id number] Init Hosp L2 01/24/18 0736 <Electronically signed by Dominick Denny DO> Date Dominick Denny DO Cosigner Signature (if applicable): Date CC: Jeffrey Campos MD; Tio Parker MD Signed BEDSIDE GLUCOSE Collected: 01/24/2018 Status: F Source: ANÍBAL 5:25 AM [facility] REPOSITORY TYPE CODE TESTS RESULT OUT OF REFERENCE UNITS RANGE LAB L501.080 70-110 mg/dL High BEDSIDE GLU 129 Result Comment: MANAGEMENT OF PATIENT CARE PER NURSING PROTOCOL Performed By: #### L501.080 #### [facility] Point of Care [address] [place] [address] BEDSIDE GLUCOSE Collected: 01/23/2018 Status: F Source: ANÍBAL 9:40 PM [facility] REPOSITORY TYPE CODE TESTS RESULT OUT OF REFERENCE UNITS RANGE LAB L501.080 70-110 mg/dL High BEDSIDE GLU 146 Result Comment: MANAGEMENT OF PATIENT CARE PER NURSING PROTOCOL Performed By: #### L501.080 #### [facility] Point of Care [address] [place] [address] BEDSIDE GLUCOSE Collected: 01/23/2018 Status: F Source: ANÍBAL 6:09 PM [facility] REPOSITORY TYPE CODE TESTS RESULT OUT OF REFERENCE UNITS RANGE LAB L501.080 70-110 mg/dL High BEDSIDE GLU 152 Result Comment: MANAGEMENT OF PATIENT CARE PER NURSING PROTOCOL Performed By: #### L501.080 #### [facility] Point of Care [address] [place] [address] Observed: 01/23/2018 Status: F Source: ANÍBAL CULTURE, SPUTUM 4:05 PM [facility] REPOSITORY Gram Stain Acceptable Specimen? Yes (<25 Epithelial cells per/lpf) Gram Stain 3+ White Blood Cells 1+ White Blood Cells 4+ Gram positive rods Resp. Culture Mixed normal respiratory lynne. No Haemophilus, Streptococcus pneumoniae, beta-hemolytic Streptococcus or Staphylococcus aureus isolated. ORGANISM 1: Serratia marcescens Amount Growth 2+ Serratia marcescens: REACTION Amoxacillin/Clavulanic Acid $ 16 R Cefazolin $ >=64 R Cefepime $ <=1 S Ceftriaxone $ <=1 S Ciprofloxacin $ <=0.25 S Ertapenim $$$ <=0.5 S Gentamicin $ <=1 S Levofloxacin $ 1 S Tobramycin $ 2 S Trimethoprim/Sulfametho $ <=20 S (NF) indicates non-formulary drug at [facility]. Approval by Infectious Disease Specialist required before non-formulary drugs may be ordered and/or dispensed. Performed By: #### M100.0800 #### [facility] [address] [place] [address], [id number] BEDSIDE GLUCOSE Collected: 01/23/2018 Status: F Source: JAY 3:51 PM [facility] REPOSITORY TYPE CODE TESTS RESULT OUT OF REFERENCE UNITS RANGE LAB L501.080 70-110 mg/dL High BEDSIDE GLU 159 Result Comment: MANAGEMENT OF PATIENT CARE PER NURSING PROTOCOL Performed By: #### L501.080 #### [facility] Point of Care [address] [place] [id number] Observed: 01/23/2018 Status: F Source: JAY RESPIRATORY PANEL 1:20 PM [facility] MOLECULAR REPOSITORY RP PANEL ADENOVIRUS Not Detected HUMAN METAPHNEUMO Not Detected INFLUENZA A Not Detected INFLUENZA A (SUBTYPE H1) Not Detected INFLUENZA A (SUBTYPE H3) Not Detected INFLUENZA B Not Detected PARAINFLUENZA 1 Not Detected PARAINFLUENZA 2 Not Detected PARAINFLUENZA 3 Not Detected PARAINFLUENZA 4 Not Detected RHINOVIRUS Not Detected RSV A Not Detected RSV B Not Detected NAAT METHOD Testing was performed using nucleic acid amplification Performed By: #### M100.638 #### [facility] [place], [place], [address] BEDSIDE GLUCOSE Collected: 01/23/2018 Status: F Source: ANÍBAL 11:53 AM [facility] REPOSITORY TYPE CODE TESTS RESULT OUT OF REFERENCE UNITS RANGE LAB L501.080 70-110 mg/dL High BEDSIDE GLU 142 Result Comment: MANAGEMENT OF PATIENT CARE PER NURSING PROTOCOL Performed By: #### L501.080 #### [facility] Point of Care [address] [place], [place] [address] BEDSIDE GLUCOSE Collected: 01/23/2018 Status: F Source: ANÍBAL 6:17 AM [facility] REPOSITORY TYPE CODE TESTS RESULT OUT OF RANGE REFERENCE UNITS LAB L501.080 70-110 mg/dL Normal BEDSIDE GLU 108 Result Comment: MANAGEMENT OF PATIENT CARE PER NURSING PROTOCOL Performed By: #### L501.080 #### [facility] Point of Care [address] [place], [place] [address] CBC W/DIFF, AUTOMATED Collected: 01/23/2018 Status: F Source: ANÍBAL 5:00 AM [facility] REPOSITORY TYPE CODE TESTS RESULT OUT OF RANGE REFERENCE UNITS LAB L100.1000 4.4-11.0 K/mm3 Normal WBC 5.7 LAB L100.1200 4.6-6.2 M/mm3 Low RBC 3.72 LAB L100.1300 13.0-16.5 g/dl Low HGB 10.3 LAB L100.1400 40-54 % Low HCT 32.1 LAB L100.1500 80-94 fL Normal MCV 86.3 LAB L100.1600 27.0-32.0 pg Normal MCH 27.7 LAB L100.1700 32-36 g/gl Normal MCHC 32.1 LAB L100.1810 11.6-14.6 % High RDW CV 17.4 LAB L100.1820 35.1-43.9 fl High RDW SD 52.0 LAB L100.1900 150-450 K/mm3 Normal PLT 158 LAB L100.2000 6.2-12.0 fl Normal MPV 10.0 LAB L100.2100 47-70 % Normal NEUT% 63.8 LAB L100.2200 19-41 % Normal LY% 25.0 LAB L100.2300 0-10 % Normal MONO% 9.1 LAB L100.2400 0-5 % Normal EO% 1.2 LAB L100.2500 0-1 % Normal BASO% 0.2 LAB L100.2550 0.0-0.9 % Normal IM GRAN % 0.700 Result Comment: IG% - Immature Granulocytes (promyelocytes, myelocytes and metamyelocytes) > 1% indicates that a LEFT SHIFT is Present. LAB L100.2620 2.0-7.7 X10 3/uL Normal Absolute Neut 3.6 LAB L100.2720 0.83-4.51 X10 3/ul Normal Absolute Lymph 1.42 Performed By: #### L100.0100 #### [facility] [address] [place], [place], [address] BASIC METABOLIC Collected: 01/23/2018 Status: F Source: JAY PROFILE (BMP) 5:00 AM [facility] REPOSITORY TYPE CODE TESTS RESULT OUT OF RANGE REFERENCE UNITS LAB L501.0100 74-106 mg/dL Normal GLU 105 Result Comment: Fasting Glucose result from 100 to 125 mg/dL suggests IMPAIRED HOMEOSTASIS per A.D.A. criteria. Please note revised GLUCOSE reference range effective 2017. LAB L501.1000 7-18 mg/dL Normal BUN 10 LAB L501.1100 0.70-1.30 mg/dL Low CREAT,SERUM 0.50 Result Comment: The validity of the calculated GFR AND GFRAA in patients over 70 years has not been determined. Clinical correlation is essential. LAB L501.1110 >60 mL/min Normal EST GFR 181 Result Comment: Non- GFR Calc LAB L501.1115 >60 mL/min Normal EST GFR - AA 219 Result Comment: GFR Calc LAB L501.1255 ml/min Normal Estimated CRCL 152.00 LAB L501.1300 10-20 RATIO High BUN/CRE 20.1 LAB L501.2200 8.5-10 mg/dL .1 CA Normal 8.6 LAB L501.5300 136-14 mmol/L 5 NA Normal 143 LAB L501.5600 3.5-5. mmol/L Low 1 K 3.2 LAB L501.5900 98-107 mmol/L CL Normal 101 LAB L501.6100 21.0-3 mmol/L High 2.0 CO2 35.0 LAB L501.6200 5-15 GAP Normal 7 Performed By: #### L500.2500 #### [facility] [address] [facility] [place], [address] BEDSIDE GLUCOSE Collected: 01/22/2018 Status: F Source: ANÍBAL 11:07 PM [facility] REPOSITORY TYPE CODE TESTS RESULT OUT OF RANGE REFERENCE UNITS LAB L501.080 70-110 mg/dL Normal BEDSIDE GLU 84 Result Comment: MANAGEMENT OF PATIENT CARE PER NURSING PROTOCOL Performed By: #### L501.080 #### [facility] Point of Care [address] [place] [address] BEDSIDE GLUCOSE Collected: 01/22/2018 Status: F Source: ANÍBAL 4:51 PM [facility] REPOSITORY TYPE CODE TESTS RESULT OUT OF RANGE REFERENCE UNITS LAB L501.080 70-110 mg/dL Normal BEDSIDE GLU 71 Result Comment: MANAGEMENT OF PATIENT CARE PER NURSING PROTOCOL Performed By: #### L501.080 #### [facility] Point of Care [address] [place] [address] HISTORY AND PHYSICAL Observed: 01/22/2018 Status: F Source: ANÍBAL EXAM 1:36 PM [facility] REPOSITORY [facility] Medical Records Department [address] [place] [address] History and Physical 01/22/18 1316 MR#: [id number] Acct: [id number] Name: MANGO MCGARRY Rep #: [id number] : 1960 58 From: Braden Hernandez MD PCP: Tio Parker MD Status: ADM FREYA Y Location: [place] [address] Problem List (1) History of cardiac arrest Status: Chronic (2) Nicotine dependence, cigarettes, uncomplicated Status: Chronic (3) EMILIA (obstructive sleep apnea) Status: Suspected (4) Chronic systolic congestive heart failure Status: Chronic (5) Presence of stent in coronary artery Status: Chronic Comment: PCI/stent LAD w/ 4.0 x 32 mm Promus 2012 ; PCI/GISSEL to Prox LAD w/ 4.0 x 20 mm Promus 02/25/16 for instent restenosis; PTCA/GISSEL to LCX 06/29/2017 (6) DM2 (diabetes mellitus, type 2) Status: Chronic (7) Venous stasis of lower extremity Status: Chronic (8) Ischemic cardiomyopathy Status: Chronic Comment: EF of 35% on Cath in February of 2014; 50% per echo 06/21/2017 History of Present Illness Date of Admission: 01/22/18 Chief Complaint: Direct admission from outside facility for hypoxia, acute on chronic hypoxic respiratory failure. The patient is a 58 year old M with past medical history as mentioned above directly admitted from outside facility for acute on chronic hypoxic respiratory failure. Patient was transferred to the [facility] ER for hypoxia and worsening shortness of breath. Reportedly, patient was very short of breath and his pulse oximeter was low in the 80s percent. He had aggressive suctioning through the tracheostomy tube upon arrival to ED and his pulse ox improved to 80s-90s and he feels better. There was excess secretions coming out from the tracheostomy tube. Patient was evaluated there and his pulse ox remained in the 80s percent. He was transferred to our hospital here for further eversion treatment. The patient himself mentioned that he was more short of breath this morning but he feels better after suctioning. He reported chronic cough with minimal sputum production. Denied fever or chills. Denied chest pain, palpitation, dizziness or lightheadedness. He mentioned that he has been on 4 L through the tracheostomy collar. Patient was discharged from the hospital on January 07, 2018 after he was admitted for acute on chronic hypoxic respiratory failure due to aspiration pneumonia and due to prolonged ventilation, he had tracheostomy performed and [facility] He does have a chronic respiratory failure secondary to COPD, CHF and obstructive sleep apnea as well as obesity hypoventilation syndrome and he has been on oxygen through the trach collar. He had history of CAD status post stents and he has been on aspirin, statins, Plavix, beta-blockers and losartan. He had a history of type 2 diabetes mellitus, has been on Lantus insulin as well as sliding scale and his blood sugar has been under fair control, most recent hemoglobin A1c was 7.7% on December,. He had a history of ischemic cardiomyopathy/chronic systolic CHF, has been on diuretics, beta blockers and losartan and most recent echocardiogram was from December, that showed ejection fraction of 60% which is apparently improved. At the outside facility, ABG performed and revealed pH of 7.41, PCO2 of 51 and PO2 in the 70s. After the infrequent suctioning through the tracheostomy tube, patient sats improved but shortly after, came down to 80s percent. Chest x-ray at the outside facility revealed no acute infiltrate, consolidation or effusion according to the official report. Routine blood work performed and revealed mild chronic anemia and chronic hyponatremia, otherwise normal. He is being admitted for acute on chronic hypoxic respiratory failure likely due to excessive secretions and mucus plugging of the tracheostomy tube. 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) History of cardiac arrest (Chronic 06/22/17) Nicotine dependence, cigarettes, uncomplicated (Chronic) Chronic systolic congestive heart failure (Chronic) Presence of stent in coronary artery (Chronic 06/29/17) PCI/stent LAD w/ 4.0 x 32 mm Promus 2012 ; PCI/GISSEL to Prox LAD w/ 4.0 x 20 mm Promus 02/25/16 for instent restenosis; PTCA/GISSEL to LCX 06/29/2017 DM2 (diabetes mellitus, type 2) (Chronic) Venous stasis of lower extremity (Chronic) Ischemic cardiomyopathy (Chronic) EF of 35% on Cath in February of 2014; 50% per echo 06/21/2017 Medical History: Medical History (Last Updated 01/22/18 @ 13:13 by Braden Hernandez MD) History of anterolateral myocardial infarction (Chronic) Onset Date: 05/03/12 I25.2 History of cardiac arrest (Chronic) Onset Date: 06/22/17 Z86.74 Nicotine dependence, cigarettes, uncomplicated (Chronic) F17.210 EMILIA (obstructive sleep apnea) (Suspected) G47.33 Chronic systolic congestive heart failure (Chronic) I50.22 DM2 (diabetes mellitus, type 2) (Chronic) E11.9 Venous stasis of lower extremity (Chronic) I87.8 Ischemic cardiomyopathy (Chronic) I25.5 EF of 35% on Cath in February of 2014; 50% per echo 06/21/2017 Allergies adhesive tape Adverse Reaction (Verified 11/10/17 12:17) Rash Home Medications: Ambulatory Orders Medication Instructions Recorded Clopidogrel Bisulfate [Plavix] 75 mg PO DAILY 06/20/17 Gabapentin [Neurontin] 400 mg PO TID 06/20/17 Surgical History: Surgical History (Last Updated 01/22/18 @ 11:49 by Braden Hernandez MD) Presence of stent in coronary artery (Chronic) Onset Date: 06/29/17 Z95.5 PCI/stent LAD w/ 4.0 x 32 mm Promus 2012 ; PCI/GISSEL to Prox LAD w/ 4.0 x 20 mm Promus 02/25/16 for instent restenosis; PTCA/GISSEL to LCX 06/29/2017 Amputated great toe of left foot Z89.412 Surgical History: - - Tracheostomy, PEG tube insertion. Cardiac stents. Psychiatric History: No pertinent psych hx Lives: Long Term Smoking Status: Former smoker Alcohol: None Drugs: None - *Family History Maternal Family History: Family History (Last Reviewed 11/10/17 @ 12:19 by Mirna Patiño) Mother Diabetes Heart disease History Items: No pertinent history, - Paternal Family History: Family History (Last Reviewed 11/10/17 @ 12:19 by Mirna Patiño) Mother Diabetes Heart disease History Items: No pertinent history Review of Systems Constitutional: Denies: Anorexia, Chills, Fever, Weakness Eyes: Denies: Blurred vision, Double vision, Drainage, Redness HEENT: Denies: Difficulty Hearing, Ear Pain, Eye Pain, Nasal Congestion, Sore Throat Cardiovascular: Denies: Chest Pain, Chest Tightness, Heaviness, Light Headedness, Palpitations, Syncope Respiratory: Reports: Cough, Shortness of Breath, Shortness of breath at rest, Sputum production. Denies: Pleuritic Pain, Wheezing Gastrointestinal: Denies: Abdominal Pain, Constipation, Diarrhea, Nausea, Vomiting Genitourinary: Denies: Dysuria, Frequency, Hematuria Musculoskeletal: Denies: Arm Pain, Back Pain, Foot Pain Skin: Denies: Dryness, Rash Neurological: Denies: Balance problems, Double vision, Change in Speech, Slurred speech, Confusion, Headaches, Incoordination Psychiatric: Denies: Anxiety, Depression Endocrine: Denies: Change in Body Habitus, Polydipsia VTE Information - Inpt Only VTE Present on Admission: No VTE Mechan Device Prophylaxis: None VTE Pharm Prophylaxis ordered?: Yes - Physical Exam General: Alert, Oriented x3, Cooperative, - - Moderately short of breath. HEENT: Atraumatic, PERRLA, EOMI, Normocephalic Oral: Moist Mucosa, No Gingival or Mucosal Lesions/ Ulcerations Neck: Supple, No JVD, Negative Carotid Bruits, Trachea Midline, Thyroid Normal Size and Texture, - - Tracheostomy tube in place. Lungs: Clear to auscultation, No wheeze, No rales, Diminished, Rhonchi Cardiovascular: Regular rate, Regular Rhythm, Normal S1, Normal S2, PMI Normal Abdomen: Bowel Sounds Present, Soft, Non Tender, Non-Distended, No Hepato-splenomegaly, Obese, - - PEG tube in place. Extremities: No clubbing, No cyanosis, Edema Skin: No rashes, No breakdown Lymphatic: No Cervical, Supraclavicular, or Inguinal Adenopathy Neurological: Cranial nerves II-XII grossly intact, Motor Exam 5/5 strength throughout Psych/Mental Status: Flat Affect, Alert and oriented to time, place, person, mood and affect Vital Signs Temp Pulse Resp BP Pulse Ox 97.4 F L 77 18 93/65 93 01/22/18 11:30 01/22/18 12:51 01/22/18 11:30 01/22/18 11:30 01/22/18 11:30 Oxygen Delivery Method Trach Collar Weight: 306 lb 0.026 oz Body Mass Index (BMI) 46.5 Finger Stick Blood Glucose 193 Intake and Output for Last 24 Hours Intake Total Balance Laboratory data: CBC and BMP performed at the outside facility and reviewed as below. CBC: WBC 6.6, hemoglobin 11.5, platelet count 174. BMP: Sodium 133, potassium 3.6, chloride 90, serum bicarb 35, glucose 96, BUN 19, creatinine 0.57, serum calcium 9.5. Assessment/Plan This is a 58 years old male patient admitted directly from outside facility for acute on chronic hypoxic respiratory failure likely due to mucous plugging and excessive respiratory secretions. #1 acute on chronic hypoxic respiratory failure: This is probably due to mucous plugging and excessive respiratory secretions. Patient felt better after excessive deep suctioning through the tracheotomy tube. At this time, his pulse ox is 93% on trach collar with 40% FiO2. His vital signs are stable, afebrile. Routine CBC and BMP was unremarkable. Chest x-ray showed no acute findings. Plan: Admit to PCU, cardiac monitoring, routine EKG, routine suctioning of the tracheostomy tube, bronchodilators with DuoNeb and albuterol as needed, chest physiotherapy, incentive spirometer, repeat chest x-ray, pulmonology consult, repeat CBC and BMP tomorrow morning, PT OT evaluation and treatment. #2 status post tracheostomy/status post PEG tube insertion: Those were performed after he had prolonged intubation last admission which was last month. Patient remained on the ventilator for a long time, stayed in the hospital for a month. Plan for tracheostomy care, routine suctioning, will resume tube feeds. #3 COPD/chronic respiratory failure: Patient has been on 4 L through the tracheostomy collar. Plan as above, bronchodilators, deep suctioning, chest physical therapy. #4 CAD status post stents: We will do routine EKG. Continue aspirin, statins, Plavix, Coreg and losartan. #5 type 2 diabetes mellitus: Blood sugar has been under fair control. Most recent hemoglobin A1c was 7.7. Plan to continue Lantus, sliding scale. #6 ischemic cardiomyopathy/chronic systolic CHF: Clinically stable, compensated. No evidence of acute CHF. Most recent 2D echocardiogram was last month and showed ejection fraction of 60% which is improving. Plan to continue Lasix, Coreg and losartan, monitor volume status to avoid volume overload. #7 DVT prophylaxis: Subcu Lovenox. This note was generated with [employer] dictation software. It may contain incorrect words, spelling, and punctuation that were not noted in checking the note before signing. Code Visit Inpatient E AND M: 72609 Init Hosp L3 01/22/18 1336 <Electronically signed by Braden Hernandez MD> Date Braden Hernandez MD Cosigner Signature: Date (if applicable) CC: Braden Hernandez; Tio Parker MD Signed CHEST 1 VIEW Observed: 01/22/2018 Status: F Source: [facility] (PORTABLE) 12:48 PM [facility] HOSPITAL REPOSITORY [facility] Imaging Services [address] [place] [address] Chest 1 View (Portable) MR#: [id number] Acct: [id number] Name: MANGO MCGARRY Rep #: [id number] : 1960 M 58 From: Jv Smith MD PCP: Tio Parker MD Status: ADM FREYA Study: Chest 1 View (Portable) Date of Exam: 01/22/18 Exam# [id number] Ordering Dr: Braden Hernandez MD STUDY: X-RAY CHEST REASON FOR EXAM: Male, 58 years old. Tracheostomy, dyspnea TECHNIQUE: AP COMPARISON: 01/01/2018 FINDINGS: Tracheostomy tube is stable. Right arm PICC has been removed. EKG leads project over the chest. Persistent hypoinflation with decreased amount of atelectasis in the retrocardiac left lower lobe. No airspace consolidation. There is no demonstrated pleural abnormality. Normal size heart. Normal mediastinum and marta. Normal visualized pulmonary arteries. Normal visualized aortic arch and descending thoracic aorta. No acute bony process. There is no demonstrated abnormality of the visualized soft tissue structures of the upper abdomen. RAD/Chest 1 View (Portable) IMPRESSION: 1. No airspace consolidation or pleural effusion. 2. Decreased retrocardiac left lower lobe atelectasis as compared to the prior study. 3. Removal of right arm PICC. 4. Stable tracheostomy. Electronically Signed: Jv Smith MD at 15:19 EST , Service support , CC: Braden Hernandez; Tio Parker MD Clerk Cashier: Signed ARTERIAL BLOOD GAS Collected: 01/22/2018 Status: F Source: [facility] RESPIRATORY 8:15 AM SYSTEM REPOSITORY TYPE CODE TESTS RESULT OUT OF RANGE REFERENCE UNITS LAB PHBS 7.350-7.450 NA pH Normal 7.415 LAB PCO2B 35.0-45.0 mm[Hg] High pCO2 51.5 LAB PO2B 80.0-100.0 mm[Hg] Low pO2 74.2 LAB HCO3B 21.0-25.0 mmol/L High HCO3 33.0 LAB BEB -3.0-3.0 mmol/L High Base Excess 7.3 LAB SO2B 95.0-100.0 % Low O2 Saturation 94.6 LAB TCO2B 23.0-27.0 mmol/L High TCO2 34.6 Result Comment: Performed by CLIA ID: [id number] [facility] [place] Performed By: #### SUDHIR #### [facility] [address] [place] [address] ARTERIAL BLOOD GAS Collected: 01/22/2018 Status: F Source: [employer] 7:54 AM SYSTEM REPOSITORY TYPE CODE TESTS RESULT OUT OF RANGE REFERENCE UNITS LAB PHBS 7.350-7.450 NA Normal pH 7.391 LAB PCO2B 35.0-45.0 mm[Hg] High pCO2 56.9 LAB PO2B 80.0-100.0 mm[Hg] Low Alert pO2 23.6 Result Comment: Confirmed specimen source as arterial with RN. Checked and verified by repeat analysis. LAB HCO3B 21.0-25.0 mmol/L HCO3 High 34.5 LAB BEB -3.0-3.0 mmol/L Base High Excess 7.4 LAB SO2B 95.0-100.0 % O2 Low Saturation 39.2 LAB TCO2B 23.0-27.0 mmol/L TCO2 High 36.2 Result Comment: Performed by CLIA ID: [id number] [facility] [place] [place] Performed By: #### SUDHIR #### [facility] [address] [place] [address] CR CHEST PORTABLE Observed: 01/22/2018 Status: F Source: [facility] 7:35 AM SYSTEM REPOSITORY Patient Name: ALEJO MCGARRY Diagnostic Radiology Exam Date/Time 01/22/2018 07:29:30 EST Exam CR Chest Portable Ordering Physician MD MARKUS, LEONARD Stacy Accession Number [id number] CPT4 Codes 91607 () Reason For Exam shortness of breath Report Examination: Portable chest Indication: shortness of breath Findings: The exam is limited secondary to portable technique and large patient body habitus. There is no focal consolidation, sizable pleural effusion or pneumothorax. The cardiac silhouette is borderline in size. Tracheostomy is present. Small osteophytes of the spine are present at multiple levels. Impression: No focal consolidation or acute infiltrate. Tracheostomy. Report Dictated on Final Dictating Physician: MD BUCK KRIKOR Signed Date and Time: 01/22/2018 7:36 am Signed by: MD BUCK KRIKOR Transcribed Date and Time: 01/22/2018 7:37 HEMOGRAM W/ AUTODIFF Collected: 01/22/2018 Status: F Source: [facility] 7:12 AM SYSTEM REPOSITORY TYPE CODE TESTS RESULT OUT OF REFERENCE UNITS RANGE LAB IWBC 3.6-10.7 10*3/uL WBC Normal 6.6 LAB RBC 4.40-5.90 10*6/uL Low RBC 4.22 LAB HGB 13.0-18.0 g/dL Low Hemoglobin 11.5 LAB HCT 40.0-52.0 % Low Hematocrit 34.5 LAB MCV 80.0-98.0 fL MCV Normal 81.7 LAB MCH 26.0-34.0 pg MCH Normal 27.2 LAB MCHC 32.0-36.0 % MCHC Normal 33.2 LAB RDW 11.5-14.5 % RDW High 19.8 LAB PLT 140-440 10*3/uL Platelet Normal 174 LAB MPV 7.4-10.4 fL MPV Normal 7.7 LAB GRAN% 40.0-80.0 % Granulocytes Normal 51.6 LAB LYMP% 20.0-40.0 % Lymphocytes Normal 34.8 LAB MONO% 2.0-10.0 % Monocytes High 10.8 LAB EOS% 1.0-6.0 % Eosinophils Normal 1.3 LAB BAS% 0.0-2.0 % Basophils Normal 1.5 LAB ANC 1.8-7.0 10*3/uL Abs Normal Neutrophile Cnt 3.4 LAB ALC 1.0-4.3 10*3/uL Abs Lymph Cnt Normal 2.3 LAB AMC 0.0-0.8 10*3/uL Abs Monocyte Normal Cnt 0.7 LAB AEC 0.0-0.5 10*3/uL Abs Eosin Cnt Normal 0.1 LAB ABC 0.0-0.2 10*3/uL Abs Baso Cnt Normal 0.1 Performed By: #### ETHEL XIE3 #### [facility] [address] [place] [address] BASIC METABOLIC PANEL Collected: 01/22/2018 Status: F Source: [facility] 7:12 AM SYSTEM REPOSITORY TYPE CODE TESTS RESULT OUT OF REFERENCE UNITS RANGE LAB NA3 135-145 mmol/L Low Sodium 133 Result Comment: NOTE: New Sodium Reference Range effective 2018 @ 10:00 LAB K3 3.5-5.1 mmol/L Normal Potassium 3.6 LAB CL3 98-107 mmol/L Low Chloride 90 LAB CO23 22-30 mmol/L High Carbon Dioxide 35 LAB ANIN3 NA Anion Gap 8 LAB GLUC3 70-100 mg/dL Normal Glucose 96 LAB BUN3 7-20 mg/dL Normal Urea Nitrogen 19 LAB CRET3 0.52-1.25 mg/dL Normal Creatinine 0.57 LAB GF3BR >60 mL/min eGFR > 60.0 LAB GF3WR >60 mL/min eGFR OTHER > 60.0 Result Comment: Source- MDRD equation with creatinine calibration to IDMS(NKDEP) eGFR not recommended for drug dose adjustment LAB CA3 8.4-10.4 mg/dL Normal Calcium 9.5 Performed By: #### ETHEL XIE3 #### [facility] [address] [place] [address] BEDSIDE GLUCOSE Collected: 01/11/2018 Status: F Source: [facility] 11:46 AM [facility] REPOSITORY TYPE CODE TESTS RESULT OUT OF REFERENCE UNITS RANGE LAB L501.080 70-110 mg/dL High BEDSIDE GLU 141 Result Comment: MANAGEMENT OF PATIENT CARE PER NURSING PROTOCOL Performed By: #### L501.080 #### [facility] Point [address] [place] [place] [address] DISCHARGE SUMMARY Observed: 01/11/2018 Status: F Source: [facility] 11:02 AM [facility] REPOSITORY [facility] Medical Records Department [address] [place] [address] Discharge Summary 01/11/18 1053 MR#: [id number] Acct: [id number] Name: MANGO MCGARRY Rep #: [id number] : 1960 58 From: Leonard Chavez MD PCP: Tio Parker MD Status: ADM IN Y Location: [place] [address] Discharge Date and Diagnosis - Problem List Patient Problems: Active and Suspected Problems (Last Updated 12/25/17 @ 08:22 by Juan Manuel Subramanian DO) Aspiration pneumonia due to food (regurgitated) (Acute) Date of Admission: 12/12/17 Date of Discharge: 01/11/18 - Primary Discharge Diagnosis Active and Suspected Problems (Last Updated 12/25/17 @ 08:22 by Juan Manuel Subramanian DO) Aspiration pneumonia due to food (regurgitated) (Acute) - Secondary Discharge Diagnosis Chronic Problems (Last Updated 12/25/17 @ 08:22 by Juan Manuel Subramanian DO) Pure hypercholesterolemia (Chronic) History of anterolateral myocardial infarction (Chronic 05/03/12) History of cardiac arrest (Chronic 06/22/17) Hypersomnia (Chronic) EMILIA (obstructive sleep apnea) (Chronic) History of cardiac catheterization (Chronic 02/25/16) 05/03/12 @ [facility] per [facility]; 02/21/2014 per [facility] @ [facility] (no stents needed); 02/22 17 per [facility]N @ [facility] prior to PCI and GISSEL to proximal LAD; 06/28/17 after cardiac arrest, prior to GISSEL of mid LCX Nicotine dependence, cigarettes, uncomplicated (Chronic) Chronic systolic congestive heart failure (Chronic) Presence of stent in coronary artery (Chronic 06/29/17) PCI/stent LAD w/ 4.0 x 32 mm Promus 2012 ; PCI/GISSEL to Prox LAD w/ 4.0 x 20 mm Promus 02/25/16 for instent restenosis; PTCA/GISSEL to LCX 06/29/2017 Atherosclerotic heart disease of [place] coronary artery without angina pectoris (Chronic) PCI/stent LAD w/ 4.0 x 32 mm Promus 2012; PCI/GISSEL to Prox LAD w/ 4.0 x 20 mm Promus 02/25/16 for instent restenosis; PTCA/GISSEL to LCx in June 2017; Asthma-COPD overlap syndrome (Chronic) FEV1 46% (01/11/2017) DM2 (diabetes mellitus, type 2) (Chronic) NSTEMI (non-ST elevated myocardial infarction) (Chronic 12/21/16) 02/20/16 Venous stasis of lower extremity (Chronic) Ischemic cardiomyopathy (Chronic) EF of 35% on Cath in February of 2014; 50% per echo 06/21/2017 Hospital Course and Treatment Imaging Results: Clinical Impression(s) from Imaging Studies Brain CT 12/12/17 07:34 IMPRESSION: No CT evidence of acute intracranial hemorrhage. Electronically Signed: Katya Tsang MD at 8:54 EST , Service support , Chest X-Ray 12/12/17 07:40 IMPRESSION: Cardiomegaly and mild pulmonary congestion. Electronically Signed: Katya Tsang MD at 8:02 EST , Service support , Chest X-Ray 12/15/17 06:34 IMPRESSION: All the support tubes are in good position. Residual increased markings in both lungs as described although there has been improvement as compared to prior study. Electronically Signed: Akhil Izquierdo MD at 11:07 EST Tel [phone], Service support , Chest X-Ray 12/16/17 12:08 IMPRESSION: Stable examination. Electronically Signed: Akhil Izquierdo MD at 12:39 EST Tel [phone], Service support , Chest X-Ray 12/19/17 07:17 IMPRESSION: Residual increased markings at the left lung base suggestive of atelectasis and/or infiltrate. The remainder of the examination is unremarkable. Electronically Signed: Akhil Izquierdo MD at 8:45 EST Tel [phone], Service support , Chest X-Ray 12/20/17 06:05 IMPRESSION: Stable position of the endotracheal tube and enterogastric tube. Progressive left lower lobe atelectasis and/or infiltrate. Electronically Signed: Akhil Izquierdo MD at 9:15 EST Tel [phone], Service support , Chest X-Ray 12/21/17 14:25 IMPRESSION: 1. Endotracheal tube tip is 5.5 cm above the byron. 2. Suboptimal ventilatory effort with stable platelike atelectasis at the left base and mild atelectasis on the right, as noted. Electronically Signed: Brayan Pretty MD at 15:36 EST , Service support , Chest X-Ray 12/21/17 15:00 IMPRESSION: Limited examination. The tip of the orogastric tube appears to be in the distal portion of the esophagus. Electronically Signed: Akhil Izquierdo MD at 15:49 EST Tel [phone], Service support , Chest X-Ray 12/22/17 06:00 IMPRESSION: Increased markings at the lung bases more prominent at the left lung base with blunting of left costophrenic angle. Mild increased markings in the right upper lobe. Follow-up is recommended. The tip of the endotracheal tube is at 5 cm proximal to the byron. Electronically Signed: Akhil Izquierdo MD at 9:46 EST Tel [phone], Service support , Chest X-Ray 12/22/17 11:01 IMPRESSION: 1. Nasogastric tube passes beneath the diaphragm, its tip outside the [id number]. 2. Endotracheal tube unchanged. 3. Improved atelectasis in the right base. Atelectasis on the left is unchanged. 4. Borderline cardiac enlargement. No CHF. Electronically Signed: Brayan Pretty MD at 12:14 EST , Service support , Chest X-Ray 12/22/17 18:29 IMPRESSION: Endotracheal tube ends 4 cm above the byron. Enteric tube is well below the gastroesophageal junction. Stable lung findings with 1 broad platelike area of atelectasis or infiltrate across the left lung base. Electronically Signed: Janessa Combs MD at 22:21 EST , Service support , KUB X-Ray 12/22/17 19:00 IMPRESSION: Orogastric tube placement with tip in gastric body Electronically Signed: Filemon Orona MD at 23:43 EST , Service support , Chest X-Ray 12/23/17 04:27 IMPRESSION: 1. Bilateral basilar airspace consolidation and atelectasis. 2. Right upper lobe subsegmental atelectasis. Electronically Signed: Katya Tsang MD at 8:46 EST , Service support , Chest X-Ray 12/26/17 14:30 IMPRESSION: The tip of the tracheostomy is at 5.2 cm proximal to the byron. Alignment left basilar atelectasis with blunting of left costophrenic angle. Electronically Signed: Akhil Izquierdo MD at 15:10 EST Tel [phone], Service support , Chest CTA 12/26/17 15:01 IMPRESSION: Dense bilateral lower lobe infiltrates.. No evidence for pulmonary embolus ASHD. No evidence for aortic aneurysm Electronically Signed: Filemon Orona MD at 16:35 EST , Service support , Chest X-Ray 12/30/17 11:06 IMPRESSION: The tracheostomy tube appears to be well positioned. No visible pneumothorax. Electronically Signed: Julio Navas, at 11:59 EST Tel , Service support , Chest X-Ray 01/01/18 08:45 IMPRESSION: No acute thoracic pathology. Electronically Signed: Karri Blas, at 9:19 EST Tel , Service support , KUB X-Ray 01/01/18 08:56 IMPRESSION: No bowel obstruction. Electronically Signed: Karri Blas, at 9:20 EST Tel , Service support , Operations: None Summary of Care Provided: Patient is a 58-year-old gentleman who is been on admission for almost a month admitted with acute hypoxic respiratory failure. Patient has had a complicated stay. 1. Acute on chronic hypoxic and hypercapnic respiratory failure due to multiple medical comorbidities including CHF exacerbation, aspiration pneumonia, obesity hypoventilation syndrome. Patient had a prolonged stay on the vent consultation was placed to ENT patient had trach placed on 12/30/2017. Patient was transferred from intensive care unit to the progressive care unit on 2018 patient was transferred to group home facility on 01/11/2018 once insurance precertification was obtained. 2. Acute systolic heart failure with an ejection fraction of 25% patient is on Lasix; patient responded to treatment 3. Hypertension-blood pressure controlled, home medications continued with dose adjustment as needed 4. Diabetes mellitus type II: patient's oral hypoglycemics held. Placed on long acting insulin, Accu-Cheks a.c. and at bedtime and covered with sliding scale insulin 5. Hypokalemia corrected per protocol 6. Paroxysmal atrial fibrillation patient currently in sinus rhythm has been seen in consultation by cardiology 7. Acute metabolic encephalopathy; resolved 8. Coronary artery disease with previous stent placement patient is on dual antiplatelet therapy with aspirin and Plavix in addition to losartan and atorvastatin 9. Morbid obesity with BMI of 44 10. Obstructive sleep apnea 11. Obesity hypoventilation syndrome 12. Physical deconditioning 13. DVT prophylaxis SC heparin Patient Problems: Active and Suspected Problems (Last Updated 12/25/17 @ 08:22 by Juan Manuel Subramanian DO) Aspiration pneumonia due to food (regurgitated) (Acute) Subjective: GENERAL: cooperative HEENT: Atraumatic; EYES; Anicteric, Normal Conjunctiva NECK; Trach collar in place. RESPIRATORY: Diminished to auscultation bilaterally, CARDIOVASCULAR: Regular S1 S2, GI: soft, non-tender, normoactive bowel sounds, : No Renal angle tenderness; EXTREMITIES: No clubbing, no cyanosis. MUSCULOSKELETAL: No Joint Tenderness; NEURO: Awake; no lateralizing signs. SKIN: Stasis dermatitis both lower extremities PSYCH; flat affect - Physical Exam General: Alert HEENT: Atraumatic, - - Trach collar in place Lungs: Diminished Cardiovascular: Regular rate, Regular Rhythm Neurological: Neuro grossly intact Psych/Mental Status: Normal Affect Vital Signs Temp Pulse Resp BP Pulse Ox 98.4 F 91 18 121/75 H 96 01/11/18 09:15 01/11/18 09:15 01/11/18 09:15 01/11/18 09:15 01/11/18 09:15 Oxygen Flow Rate (L/min) 4 Oxygen Delivery Method Trach Collar Weight: 133.1 kg Body Mass Index (BMI) 45.8 Finger Stick Blood Glucose 193 Intake and Output for Last 24 Hours Intake Total 2999 / 2999 1966 / 1966 698 / 698 Output Total 1700 / 1700 1775 / 1775 175 / 175 Balance 1299 / 1299 192 / 192 523 / 523 POC Glucose POC Glucose 146 H 225 H 191 H Home Medications: Medications to take at Discharge Clopidogrel Bisulfate [Plavix] 75 mg PO DAILY 06/20/17 Gabapentin [Neurontin] 400 mg PO TID 06/20/17 Montelukast [Singulair] 10 mg PO DAILY 06/20/17 fluticasone-vilanterol INHALATION QDAY 07/27/17 pantoprazole 20 mg tablet,delayed release 20 mg PO QDAY 07/27/17 Fluticasone/Vilanterol [Breo Ellipta 200-25 Mcg INH] 1 puff INHALATION DAILY 12/12/17 Prednisone 10 mg PO DAILY 12/12/17 Acetaminophen Liquid [Tylenol Liquid] 650 mg GT Q6H PRN PRN udc 01/11/18 Albuterol Aerosols [Ventolin Aerosols] 2.5 mg INHALATION Q2H PRN PRN vial.neb. 01/11/18 Albuterol Aerosols [Ventolin Aerosols] 2.5 mg INHALATION Q6HWA.RT vial.neb. 01/11/18 Aspirin [Aspirin, Baby] 81 mg GT DAILY tab.chew 01/11/18 Atorvastatin Calcium [Lipitor] 40 mg GT QHS tablet 01/11/18 Carvedilol [Coreg (Beta Lori)] 3.125 mg PO BID #1 tablet 01/11/18 Chlorhexidine 15 ml PO BID ml 01/11/18 Chlorhexidine Gluc 2% Cloth 1 each TOPICAL DAILY towelette 01/11/18 Escitalopram Oxalate [Lexapro] 10 mg PO DAILY tablet 01/11/18 Famotidine [Pepcid] 20 mg GT BID tablet 01/11/18 Furosemide [Lasix] 80 mg PO TID tablet 01/11/18 Hydrocortisone 2.5% Crm [Hytone] 1 applic TOPICAL TID PRN PRN tube 01/11/18 Insulin Glargine [Lantus SoloStar Pen] 35 units SC , pen 01/11/18 Insulin Lispro [Humalog KwikPen] See Protocol SC ,, insuln.pen 01/11/18 Losartan Potassium [Cozaar] 25 mg PO DAILY tablet 01/11/18 Magnesium Hydroxide [Milk Of Magnesia] 30 ml PO DAILY PRN PRN udc 01/11/18 Nystatin 500,000 unit PO Q6 udc 01/11/18 Polyethylene Glycol 3350 [Miralax] 17 gm GT DAILY PRN PRN packet 01/11/18 Potassium Cloride Effervescent [Potassium Chl 25 Meq Eff (For Liquid)] 25 meq GT TID tablet.eff 01/11/18 Following Prescrptions Were Given to Patient: Carvedilol [Coreg (Beta Lori)] 3.125 mg PO BID #1 tablet Primary Care Physician: Tio Parker MD [Primary Care Provider] - Please follow up with your Primary Care Physician in: in 1- 2 weeks Disposition: Care Home facility Minutes spent on discharge:: 50 Patient Condition:: Stable Medical Necessity - Tobacco Use Smoking Status: Current every day smoker Meaningful Use Info Meaningful Use Diagnoses (Choose all that apply): CHF - CHF JONE/ARB ordered at discharge?: Yes Documented LVEF (%): 25 Code Visit Inpatient E AXEL M: [id number] Disch Hosp 01/11/18 1102 <Electronically signed by Leonard Chavez MD> Date Leonard Chavez MD Cosigner Signature (if applicable): Date CC: Leonard Chavez MD; Tio Parker MD Signed TRANSFER TO [facility] Observed: 01/11/2018 Status: F Source: [facility] 10:58 AM [facility] REPOSITORY [facility] Medical Records Department [address] [place] [address] Transfer to [facility] Care MR#: [id number] Acct: [id number] Name: MANGO MCGARRY Rep #: [id number] : 1960 58 From: Leonard Chavez MD PCP: Tio Parker MD Status: ADM IN MANGO MCGARRY (Patient) (Health Ins. Claim No.) (Day of Discharge to Facility) Certification of patient admission REQUIRED AT TIME OF ADMISSION. I CERTIFY THAT POST-HOSPITAL [facility] SERVICES ARE REQUIRED TO BE GIVEN ON AN IN-PATIENT BASIS BECAUSE OF THE ABOVE NAMED PATIENT'S NEED FOR SNF CARE ON A CONTINUING BASIS FOR THE CONDITION(S) FOR WHICH HE/SHE WAS RECEIVING IN-PATIENT HOSPITAL SERVICES PRIOR TO HIS/HER TRANSFER TO THE [facility]. 01/11/18 1058 <Electronically signed by Leonard Chavez MD> Date Leonard Chavez MD - Diet 12/19/17 04:00 NPO [Diet: Nothing Per Oral] Is pt able to select menu?: Yes - Wound(s) Lt dorsal hand Wound Type: Abrasion R groin Wound Type: Puncture - Therapies Physical Therapy: Eval and Treat Occupational Therapy: Eval and Treat - Allergies/Procedures Done in Hospital Allergies/Adverse Reactions: Allergies adhesive tape Adverse Reaction (Verified 11/10/17 12:17) Rash - Type of Care/Length of Stay Estimated LOS: More Than 30 Days Type of Care Needed: Skilled Rehab Potential: Fair Prognosis: Fair - Additional Orders/Day of Discharge Additional Orders: Standard trach care per policy Day of Discharge: 01/11/18 - Dietary and Speech Recommendations Dietitian Recommendations/Changes: Continue Vital AF 1.2 via PEG at goal rate of 65cc/hour w/ 120 cc H2O flush every 4 hours to provide 1872 calories, 117 g protein, and 1985cc free fluid/day. - Follow Up Care Primary Care Physician: Tio Parker MD [Primary Care Provider] - Please follow up with your Primary Care Physician in: in 1- 2 weeks 01/11/18 1058 <Electronically signed by Leonard Chavez MD> Date Leonard Chavez MD CC: Sebastien Weinberg MD; Robert Paredes MD; Dominick Denny D.O.; Roscoe Bazzi MD; Tio Parker MD Signed TRANSFER TO [facility] Observed: 01/11/2018 Status: F Source: [facility] 10:49 AM [facility] REPOSITORY [facility] Medical Records Department [address] [place] [address] Transfer to [facility] MR#: [id number] Acct: [id number] Name: MANGO MCGARRY Rep #: [id number] : 1960 58 From: Leonard Chavez MD PCP: Tio Parker MD Status: ADM IN MANGO MCGARRY (Patient) (Health Ins. Claim No.) (Day of Discharge to Facility) Certification of patient admission REQUIRED AT TIME OF ADMISSION. I CERTIFY THAT POST-HOSPITAL ECF SERVICES ARE REQUIRED TO BE GIVEN ON AN IN-PATIENT BASIS BECAUSE OF THE ABOVE NAMED PATIENT'S NEED FOR SNF CARE ON A CONTINUING BASIS FOR THE CONDITION(S) FOR WHICH HE/SHE WAS RECEIVING IN-PATIENT HOSPITAL SERVICES PRIOR TO HIS/HER TRANSFER TO THE [facility]. 01/11/18 1049 <Electronically signed by Leonard Chavez MD> Date Leonard Chavez MD - Diet 12/19/17 04:00 NPO [Diet: Nothing Per Oral] Is pt able to select menu?: Yes - Wound(s) Lt dorsal hand Wound Type: Abrasion R groin Wound Type: Puncture - Therapies Physical Therapy: Eval and Treat Occupational Therapy: Eval and Treat - Allergies/Procedures Done in Hospital Allergies/Adverse Reactions: Allergies adhesive tape Adverse Reaction (Verified 11/10/17 12:17) Rash - Type of Care/Length of Stay Estimated LOS: More Than 30 Days Type of Care Needed: Skilled Rehab Potential: Fair Prognosis: Fair - Additional Orders/Day of Discharge Day of Discharge: 01/11/18 - Dietary and Speech Recommendations Dietitian Recommendations/Changes: Continue Vital AF 1.2 via PEG at goal rate of 65cc/hour w/ 120 cc H2O flush every 4 hours to provide 1872 calories, 117 g protein, and 1985cc free fluid/day. - Follow Up Care Primary Care Physician: Tio Parker MD [Primary Care Provider] - Please follow up with your Primary Care Physician in: in 1- 2 weeks 01/11/18 104 <Electronically signed by Leonard Chavez MD> Date Leonard Chavez MD CC: Sebastien Weinberg MD; Robert Paredes MD; Dominick Denny D.O.; Roscoe Bazzi MD; Tio Parker MD Signed BEDSIDE GLUCOSE Collected: 01/11/2018 Status: F Source: [facility] 4:59 AM [facility] REPOSITORY TYPE CODE TESTS RESULT OUT OF REFERENCE UNITS RANGE LAB L501.080 70-110 mg/dL High BEDSIDE GLU 146 Result Comment: Dr Maldonado Followed MANAGEMENT OF PATIENT CARE PER NURSING PROTOCOL Performed By: #### L501.080 #### [facility] Point of Care [address] [place] [address] BEDSIDE GLUCOSE Collected: 01/10/2018 Status: F Source: [facility] 6:07 PM [facility] REPOSITORY TYPE CODE TESTS RESULT OUT OF REFERENCE UNITS RANGE LAB L501.080 70-110 mg/dL High BEDSIDE GLU 225 Result Comment: MANAGEMENT OF PATIENT CARE PER NURSING PROTOCOL Performed By: #### L501.080 #### [facility] Point of Care [address] [place] [address] BEDSIDE GLUCOSE Collected: 01/10/2018 Status: F Source: [facility] 12:05 PM [facility] REPOSITORY TYPE CODE TESTS RESULT OUT OF REFERENCE UNITS RANGE LAB L501.080 70-110 mg/dL High BEDSIDE GLU 191 Result Comment: MANAGEMENT OF PATIENT CARE PER NURSING PROTOCOL Performed By: #### L501.080 #### [facility] Point of Care [address] [place] [address] BEDSIDE GLUCOSE Collected: 01/10/2018 Status: F Source: [facility] 5:10 AM [facility] REPOSITORY TYPE CODE TESTS RESULT OUT OF REFERENCE UNITS RANGE LAB L501.080 70-110 mg/dL High BEDSIDE GLU 147 Result Comment: MANAGEMENT OF PATIENT CARE PER NURSING PROTOCOL Performed By: #### L501.080 #### [facility] Point of Care [address] [place] [address] BEDSIDE GLUCOSE Collected: 2018 Status: F Source: [facility] 5:13 PM [facility] REPOSITORY TYPE CODE TESTS RESULT OUT OF REFERENCE UNITS RANGE LAB L501.080 70-110 mg/dL High BEDSIDE GLU 160 Result Comment: MANAGEMENT OF PATIENT CARE PER NURSING PROTOCOL Performed By: #### L501.080 #### [facility] Point of Care [address] [place] [address] BEDSIDE GLUCOSE Collected: 2018 Status: F Source: [facility] 11:29 AM [facility] REPOSITORY TYPE CODE TESTS RESULT OUT OF REFERENCE UNITS RANGE LAB L501.080 70-110 mg/dL High BEDSIDE GLU 182 Result Comment: MANAGEMENT OF PATIENT CARE PER NURSING PROTOCOL Performed By: #### L501.080 #### [facility] Point of Care [address] [place] [address] BEDSIDE GLUCOSE Collected: 2018 Status: F Source: [facility] 6:24 AM [facility] REPOSITORY TYPE CODE TESTS RESULT OUT OF REFERENCE UNITS RANGE LAB L501.080 70-110 mg/dL High BEDSIDE GLU 143 Result Comment: MANAGEMENT OF PATIENT CARE PER NURSING PROTOCOL Performed By: #### L501.080 #### [facility] Point of Care [address] [place] [address] CBC W/DIFF, AUTOMATED Collected: 2018 Status: F Source: [facility] 4:25 AM [facility] REPOSITORY TYPE CODE TESTS RESULT OUT OF RANGE REFERENCE UNITS LAB L100.1000 4.4-11.0 K/mm3 Normal WBC 8.4 LAB L100.1200 4.6-6.2 M/mm3 Low RBC 4.55 LAB L100.1300 13.0-16.5 g/dl Low HGB 12.4 LAB L100.1400 40-54 % Low HCT 39.8 LAB L100.1500 80-94 fL Normal MCV 87.5 LAB L100.1600 27.0-32.0 pg Normal MCH 27.3 LAB L100.1700 32-36 g/gl Low MCHC 31.2 LAB L100.1810 11.6-14.6 % High RDW CV 16.3 LAB L100.1820 35.1-43.9 fl High RDW SD 51.5 LAB L100.1900 150-450 K/mm3 Low PLT 134 LAB L100.2000 6.2-12.0 fl Normal MPV 10.9 LAB L100.2100 47-70 % Normal NEUT% 69.1 LAB L100.2200 19-41 % Normal LY% 25.3 LAB L100.2300 0-10 % Normal MONO% 3.9 LAB L100.2400 0-5 % Normal EO% 1.0 LAB L100.2500 0-1 % Normal BASO% 0.1 LAB L100.2550 0.0-0.9 % Normal IM GRAN % 0.600 Result Comment: IG% - Immature Granulocytes (promyelocytes, myelocytes and metamyelocytes) > 1% indicates that a LEFT SHIFT is Present. LAB L100.2620 2.0-7.7 X10 3/uL Normal Absolute Neut 5.8 LAB L100.2720 0.83-4.51 X10 3/ul Normal Absolute Lymph 2.13 Performed By: #### L100.0100 #### [facility] [address] [facility] [place], [place], [id number] BASIC METABOLIC Collected: 2018 Status: F Source: [facility] PROFILE (BMP) 4:25 AM [facility] REPOSITORY TYPE CODE TESTS RESULT OUT OF RANGE REFERENCE UNITS LAB L501.0100 74-106 mg/dL High GLU 147 Result Comment: Fasting Glucose result greater than or equal to 126 mg/dL suggests DIABETES MELLITUS per A.D.A. criteria. Please note revised GLUCOSE reference range effective 2017. LAB L501.1000 7-18 mg/dL High BUN 32 LAB L501.1100 0.70-1.30 mg/dL Normal CREAT,SERUM 0.74 Result Comment: The validity of the calculated GFR AND GFRAA in patients over 70 years has not been determined. Clinical correlation is essential. LAB L501.1110 >60 mL/min Normal EST GFR 115 Result Comment: Non- GFR Calc LAB L501.1115 >60 mL/min Normal EST GFR - AA 139 Result Comment: GFR Calc LAB L501.1255 ml/min Normal Estimated CRCL 102.70 LAB L501.1300 10-20 RATIO High BUN/CRE 43.2 LAB L501.2200 8.5-10 mg/dL .1 CA Normal 9.2 LAB L501.5300 136-14 mmol/L 5 NA Normal 144 LAB L501.5600 3.5-5. mmol/L 1 K Normal 3.6 LAB L501.5900 98-107 mmol/L CL Normal 101 LAB L501.6100 21.0-3 mmol/L 2.0 CO2 Normal 31.0 LAB L501.6200 5-15 GAP Normal 12 Performed By: #### L500.2500 #### [facility] [address] [place], [address] BEDSIDE GLUCOSE Collected: 2018 Status: F Source: [facility] 12:00 AM [facility] REPOSITORY TYPE CODE TESTS RESULT OUT OF REFERENCE UNITS RANGE LAB L501.080 70-110 mg/dL High BEDSIDE GLU 144 Result Comment: MANAGEMENT OF PATIENT CARE PER NURSING PROTOCOL Performed By: #### L501.080 #### [facility] Point of Care [address] [place], [place] [id number] BEDSIDE GLUCOSE Collected: 01/08/2018 Status: F Source: [facility] 9:10 PM [facility] REPOSITORY TYPE CODE TESTS RESULT OUT OF REFERENCE UNITS RANGE LAB L501.080 70-110 mg/dL High BEDSIDE GLU 142 Result Comment: MANAGEMENT OF PATIENT CARE PER NURSING PROTOCOL Performed By: #### L501.080 #### [facility] Point of Care [address] [place], [place] [id number] BEDSIDE GLUCOSE Collected: 01/08/2018 Status: F Source: [facility] 4:29 PM [facility] REPOSITORY TYPE CODE TESTS RESULT OUT OF REFERENCE UNITS RANGE LAB L501.080 70-110 mg/dL High BEDSIDE GLU 206 Result Comment: MANAGEMENT OF PATIENT CARE PER NURSING PROTOCOL Performed By: #### L501.080 #### [facility] Point of Care [address] [place], [place] [address] BEDSIDE GLUCOSE Collected: 01/08/2018 Status: F Source: [facility] 11:40 AM [facility] REPOSITORY TYPE CODE TESTS RESULT OUT OF REFERENCE UNITS RANGE LAB L501.080 70-110 mg/dL High BEDSIDE GLU 144 Result Comment: MANAGEMENT OF PATIENT CARE PER NURSING PROTOCOL Performed By: #### L501.080 #### [facility] Point of Care [address] [place] [address] BEDSIDE GLUCOSE Collected: 01/08/2018 Status: F Source: [facility] 6:34 AM [facility] REPOSITORY TYPE CODE TESTS RESULT OUT OF RANGE REFERENCE UNITS LAB L501.080 70-110 mg/dL Normal BEDSIDE GLU 99 Result Comment: MANAGEMENT OF PATIENT CARE PER NURSING PROTOCOL Performed By: #### L501.080 #### [facility] Point of Care [address] [place] [address] BEDSIDE GLUCOSE Collected: 01/07/2018 Status: F Source: [facility] 11:24 PM [facility] REPOSITORY TYPE CODE TESTS RESULT OUT OF REFERENCE UNITS RANGE LAB L501.080 70-110 mg/dL High BEDSIDE GLU 144 Result Comment: MANAGEMENT OF PATIENT CARE PER NURSING PROTOCOL Performed By: #### L501.080 #### [facility] Point of Care [address] [place] [address] BEDSIDE GLUCOSE Collected: 01/07/2018 Status: F Source: [facility] 9:14 PM [facility] REPOSITORY TYPE CODE TESTS RESULT OUT OF REFERENCE UNITS RANGE LAB L501.080 70-110 mg/dL High BEDSIDE GLU 148 Result Comment: MANAGEMENT OF PATIENT CARE PER NURSING PROTOCOL Performed By: #### L501.080 #### [facility] Point of Care [address] [place] [address] BEDSIDE GLUCOSE Collected: 01/07/2018 Status: F Source: [facility] 4:23 PM [facility] REPOSITORY TYPE CODE TESTS RESULT OUT OF REFERENCE UNITS RANGE LAB L501.080 70-110 mg/dL High BEDSIDE GLU 227 Result Comment: MANAGEMENT OF PATIENT CARE PER NURSING PROTOCOL Performed By: #### L501.080 #### [facility] Point of Care [address] [place] [address] BEDSIDE GLUCOSE Collected: 01/07/2018 Status: F Source: [facility] 11:30 AM [facility] REPOSITORY TYPE CODE TESTS RESULT OUT OF REFERENCE UNITS RANGE LAB L501.080 70-110 mg/dL High BEDSIDE GLU 171 Result Comment: MANAGEMENT OF PATIENT CARE PER NURSING PROTOCOL Performed By: #### L501.080 #### [facility] Point of Care [address] [place] [address] BEDSIDE GLUCOSE Collected: 01/07/2018 Status: F Source: [facility] 5:05 AM [facility] REPOSITORY TYPE CODE TESTS RESULT OUT OF REFERENCE UNITS RANGE LAB L501.080 70-110 mg/dL High BEDSIDE GLU 149 Result Comment: MANAGEMENT OF PATIENT CARE PER NURSING PROTOCOL Performed By: #### L501.080 #### [facility] Point of Care [address] [place], [place] [address] CBC W/DIFF, AUTOMATED Collected: 01/07/2018 Status: F Source: [facility] 4:30 AM [facility] REPOSITORY TYPE CODE TESTS RESULT OUT OF RANGE REFERENCE UNITS LAB L100.1000 4.4-11.0 K/mm3 Normal WBC 8.4 LAB L100.1200 4.6-6.2 M/mm3 Low RBC 4.52 LAB L100.1300 13.0-16.5 g/dl Low HGB 12.3 LAB L100.1400 40-54 % Low HCT 39.7 LAB L100.1500 80-94 fL Normal MCV 87.8 LAB L100.1600 27.0-32.0 pg Normal MCH 27.2 LAB L100.1700 32-36 g/gl Low MCHC 31.0 LAB L100.1810 11.6-14.6 % High RDW CV 16.1 LAB L100.1820 35.1-43.9 fl High RDW SD 51.7 LAB L100.1900 150-450 K/mm3 Low PLT 110 LAB L100.2000 6.2-12.0 fl Normal MPV 10.8 LAB L100.2100 47-70 % Normal NEUT% 67.7 LAB L100.2200 19-41 % Normal LY% 27.9 LAB L100.2300 0-10 % Normal MONO% 3.1 LAB L100.2400 0-5 % Normal EO% 0.8 LAB L100.2500 0-1 % Normal BASO% 0.1 LAB L100.2550 0.0-0.9 % Normal IM GRAN % 0.400 Result Comment: IG% - Immature Granulocytes (promyelocytes, myelocytes and metamyelocytes) > 1% indicates that a LEFT SHIFT is Present. LAB L100.2620 2.0-7.7 X10 3/uL Normal Absolute Neut 5.7 LAB L100.2720 0.83-4.51 X10 3/ul Normal Absolute Lymph 2.35 Performed By: #### L100.0100 #### [facility] [address] [facility] [address] [place], [place], [address] BASIC METABOLIC Collected: 01/07/2018 Status: F Source: [facility] PROFILE (BMP) 4:30 AM [facility] REPOSITORY TYPE CODE TESTS RESULT OUT OF RANGE REFERENCE UNITS LAB L501.0100 74-106 mg/dL High GLU 139 Result Comment: Fasting Glucose result greater than or equal to 126 mg/dL suggests DIABETES MELLITUS per A.D.A. criteria. Please note revised GLUCOSE reference range effective 2017. LAB L501.1000 7-18 mg/dL High BUN 29 LAB L501.1100 0.70-1.30 mg/dL Low CREAT,SERUM 0.68 Result Comment: The validity of the calculated GFR AND GFRAA in patients over 70 years has not been determined. Clinical correlation is essential. LAB L501.1110 >60 mL/min Normal EST GFR 126 Result Comment: Non- GFR Calc LAB L501.1115 >60 mL/min Normal EST GFR - AA 152 Result Comment: GFR Calc LAB L501.1255 ml/min Normal Estimated CRCL 113.16 LAB L501.1300 10-20 RATIO High BUN/CRE 42.4 LAB L501.2200 8.5-10 mg/dL .1 CA Normal 9.0 LAB L501.5300 136-14 mmol/L 5 NA Normal 142 LAB L501.5600 3.5-5. mmol/L 1 K Normal 3.5 LAB L501.5900 98-107 mmol/L CL Normal 102 LAB L501.6100 21.0-3 mmol/L 2.0 CO2 Normal 32.0 LAB L501.6200 5-15 GAP Normal 8 Performed By: #### L500.2500, L501.2300, L501.5200 #### [facility] [address] [place], [place], [id number] PHOSPHORUS Collected: 01/07/2018 Status: F Source: [facility] 4:30 AM [facility] REPOSITORY TYPE CODE TESTS RESULT OUT OF RANGE REFERENCE UNITS LAB L501.2300 2.5-4.9 mg/dL Normal PHOS 4.0 Performed By: #### L500.2500, L501.2300, L501.5200 #### [facility] [address] [place], [place], [id number] MAGNESIUM Collected: 01/07/2018 Status: F Source: [facility] 4:30 AM [facility] REPOSITORY TYPE CODE TESTS RESULT OUT OF RANGE REFERENCE UNITS LAB L501.5200 1.6-2.6 mg/dL Normal MG 2.2 Performed By: #### L500.2500, L501.2300, L501.5200 #### [facility] [address] [facility] [id number] BEDSIDE GLUCOSE Collected: 01/06/2018 Status: F Source: ANÍBAL 11:08 PM [facility] REPOSITORY TYPE CODE TESTS RESULT OUT OF REFERENCE UNITS RANGE LAB L501.080 70-110 mg/dL High BEDSIDE GLU 154 Result Comment: MANAGEMENT OF PATIENT CARE PER NURSING PROTOCOL Performed By: #### L501.080 #### [facility] Point of Care [address] [place], [place] [id number] BEDSIDE GLUCOSE Collected: 01/06/2018 Status: F Source: AN[facility]BAL 4:34 PM [facility] REPOSITORY TYPE CODE TESTS RESULT OUT OF REFERENCE UNITS RANGE LAB L501.080 70-110 mg/dL High BEDSIDE GLU 188 Result Comment: MANAGEMENT OF PATIENT CARE PER NURSING PROTOCOL Performed By: #### L501.080 #### [facility] Point of Care [address] [place], [place] [id number] BEDSIDE GLUCOSE Collected: 01/06/2018 Status: F Source: AN[facility]BAL 12:12 PM [facility] REPOSITORY TYPE CODE TESTS RESULT OUT OF REFERENCE UNITS RANGE LAB L501.080 70-110 mg/dL High BEDSIDE GLU 181 Result Comment: MANAGEMENT OF PATIENT CARE PER NURSING PROTOCOL Performed By: #### L501.080 #### [facility] Point of Care [address] [place] [address] BEDSIDE GLUCOSE Collected: 01/06/2018 Status: F Source: ANÍBAL 5:39 AM [facility] REPOSITORY TYPE CODE TESTS RESULT OUT OF REFERENCE UNITS RANGE LAB L501.080 70-110 mg/dL High BEDSIDE GLU 131 Result Comment: MANAGEMENT OF PATIENT CARE PER NURSING PROTOCOL Performed By: #### L501.080 #### [facility] Point of Care [address] [place] [address] BEDSIDE GLUCOSE Collected: 01/05/2018 Status: F Source: ANÍBAL 11:26 PM [facility] REPOSITORY TYPE CODE TESTS RESULT OUT OF REFERENCE UNITS RANGE LAB L501.080 70-110 mg/dL High BEDSIDE GLU 140 Result Comment: MANAGEMENT OF PATIENT CARE PER NURSING PROTOCOL Performed By: #### L501.080 #### [facility] Point of Care [address] [place] [address] BEDSIDE GLUCOSE Collected: 01/05/2018 Status: F Source: ANÍBAL 9:21 PM [facility] REPOSITORY TYPE CODE TESTS RESULT OUT OF REFERENCE UNITS RANGE LAB L501.080 70-110 mg/dL High BEDSIDE GLU 154 Result Comment: MANAGEMENT OF PATIENT CARE PER NURSING PROTOCOL Performed By: #### L501.080 #### [facility] Point of Care [address] [place] [address] BEDSIDE GLUCOSE Collected: 01/05/2018 Status: F Source: ANÍBAL 6:20 PM [facility] REPOSITORY TYPE CODE TESTS RESULT OUT OF REFERENCE UNITS RANGE LAB L501.080 70-110 mg/dL High BEDSIDE GLU 185 Result Comment: MANAGEMENT OF PATIENT CARE PER NURSING PROTOCOL Performed By: #### L501.080 #### [facility] Point of Care [address] [place] [address] BEDSIDE GLUCOSE Collected: 01/05/2018 Status: F Source: ANÍBAL 11:28 AM [facility] REPOSITORY TYPE CODE TESTS RESULT OUT OF REFERENCE UNITS RANGE LAB L501.080 70-110 mg/dL High BEDSIDE GLU 172 Result Comment: MANAGEMENT OF PATIENT CARE PER NURSING PROTOCOL Performed By: #### L501.080 #### [facility] Point of Care [address] [place] [address] BEDSIDE GLUCOSE Collected: 01/05/2018 Status: F Source: ANÍBAL 5:59 AM [facility] REPOSITORY TYPE CODE TESTS RESULT OUT OF RANGE REFERENCE UNITS LAB L501.080 70-110 mg/dL Normal BEDSIDE GLU 100 Result Comment: MANAGEMENT OF PATIENT CARE PER NURSING PROTOCOL Performed By: #### L501.080 #### [facility] Point of Care [address] [place], [place] [address] CBC W/DIFF, AUTOMATED Collected: 01/05/2018 Status: F Source: ANÍBAL 4:15 AM [facility] REPOSITORY TYPE CODE TESTS RESULT OUT OF RANGE REFERENCE UNITS LAB L100.1000 4.4-11.0 K/mm3 Normal WBC 8.3 LAB L100.1200 4.6-6.2 M/mm3 Low RBC 4.06 LAB L100.1300 13.0-16.5 g/dl Low HGB 11.3 LAB L100.1400 40-54 % Low HCT 36.2 LAB L100.1500 80-94 fL Normal MCV 89.2 LAB L100.1600 27.0-32.0 pg Normal MCH 27.8 LAB L100.1700 32-36 g/gl Low MCHC 31.2 LAB L100.1810 11.6-14.6 % High RDW CV 15.7 LAB L100.1820 35.1-43.9 fl High RDW SD 50.5 LAB L100.1900 150-450 K/mm3 Low PLT 121 LAB L100.2000 6.2-12.0 fl Normal MPV 12.0 LAB L100.2100 47-70 % Normal NEUT% 67.9 LAB L100.2200 19-41 % Normal LY% 24.3 LAB L100.2300 0-10 % Normal MONO% 5.4 LAB L100.2400 0-5 % Normal EO% 1.0 LAB L100.2500 0-1 % Normal BASO% 0.2 LAB L100.2550 0.0-0.9 % High IM GRAN % 1.200 Result Comment: IG% - Immature Granulocytes (promyelocytes, myelocytes and metamyelocytes) > 1% indicates that a LEFT SHIFT is Present. LAB L100.2620 2.0-7.7 X10 3/uL Normal Absolute Neut 5.6 LAB L100.2720 0.83-4.51 X10 3/ul Normal Absolute Lymph 2.01 Performed By: #### L100.0100 #### [facility] [address] [place], [address] BASIC METABOLIC Collected: 01/05/2018 Status: F Source: ANÍBAL PROFILE (BMP) 4:15 AM [facility] REPOSITORY TYPE CODE TESTS RESULT OUT OF RANGE REFERENCE UNITS LAB L501.0100 74-106 mg/dL Normal GLU 97 Result Comment: Please note revised GLUCOSE reference range effective 2017. LAB L501.1000 7-18 mg/dL High BUN 31 LAB L501.1100 0.70-1.30 mg/dL Low CREAT,SERUM 0.64 Result Comment: The validity of the calculated GFR AND GFRAA in patients over 70 years has not been determined. Clinical correlation is essential. LAB L501.1110 >60 mL/min Normal EST GFR 136 Result Comment: Non- GFR Calc LAB L501.1115 >60 mL/min Normal EST GFR - AA 165 Result Comment: GFR Calc LAB L501.1255 ml/min Normal Estimated CRCL 120.23 LAB L501.1300 10-20 RATIO High BUN/CRE 48.7 LAB L501.2200 8.5-10 mg/dL .1 CA Normal 8.9 LAB L501.5300 136-14 mmol/L 5 NA Normal 144 LAB L501.5600 3.5-5. mmol/L 1 K Normal 3.9 LAB L501.5900 98-107 mmol/L CL Normal 105 LAB L501.6100 21.0-3 mmol/L High 2.0 CO2 33.0 LAB L501.6200 5-15 GAP Normal 6 Performed By: #### L500.2500 #### [facility] [address] [place], [place], [address] BEDSIDE GLUCOSE Collected: 01/05/2018 Status: F Source: ANÍBAL 12:06 AM [facility] REPOSITORY TYPE CODE TESTS RESULT OUT OF REFERENCE UNITS RANGE LAB L501.080 70-110 mg/dL High BEDSIDE GLU 133 Result Comment: MANAGEMENT OF PATIENT CARE PER NURSING PROTOCOL Performed By: #### L501.080 #### [facility] Point of Care [address] [place], [place] [address] BEDSIDE GLUCOSE Collected: 01/04/2018 Status: F Source: ANÍBAL 5:24 PM [facility] REPOSITORY TYPE CODE TESTS RESULT OUT OF REFERENCE UNITS RANGE LAB L501.080 70-110 mg/dL High BEDSIDE GLU 213 Result Comment: MANAGEMENT OF PATIENT CARE PER NURSING PROTOCOL Performed By: #### L501.080 #### [facility] Point of Care [address] [place] [address] BEDSIDE GLUCOSE Collected: 01/04/2018 Status: F Source: ANÍBAL 11:42 AM [facility] REPOSITORY TYPE CODE TESTS RESULT OUT OF REFERENCE UNITS RANGE LAB L501.080 70-110 mg/dL High BEDSIDE GLU 195 Result Comment: MANAGEMENT OF PATIENT CARE PER NURSING PROTOCOL Performed By: #### L501.080 #### [facility] Point of Care [address] [place] [address] BEDSIDE GLUCOSE Collected: 01/04/2018 Status: F Source: ANÍBAL 5:33 AM [facility] REPOSITORY TYPE CODE TESTS RESULT OUT OF REFERENCE UNITS RANGE LAB L501.080 70-110 mg/dL High BEDSIDE GLU 138 Result Comment: MANAGEMENT OF PATIENT CARE PER NURSING PROTOCOL Performed By: #### L501.080 #### [facility] Point of Care [address] [place] [address] BEDSIDE GLUCOSE Collected: 01/04/2018 Status: F Source: ANÍBAL 12:21 AM [facility] REPOSITORY TYPE CODE TESTS RESULT OUT OF REFERENCE UNITS RANGE LAB L501.080 70-110 mg/dL High BEDSIDE GLU 123 Result Comment: MANAGEMENT OF PATIENT CARE PER NURSING PROTOCOL Performed By: #### L501.080 #### [facility] Point of Care [address] [place] [address] BEDSIDE GLUCOSE Collected: 01/03/2018 Status: F Source: ANÍBAL 6:47 PM [facility] REPOSITORY TYPE CODE TESTS RESULT OUT OF REFERENCE UNITS RANGE LAB L501.080 70-110 mg/dL High BEDSIDE GLU 185 Result Comment: MANAGEMENT OF PATIENT CARE PER NURSING PROTOCOL Performed By: #### L501.080 #### [facility] Point of Care [address] [place] [address] BEDSIDE GLUCOSE Collected: 01/03/2018 Status: F Source: ANÍBAL 12:49 PM [facility] REPOSITORY TYPE CODE TESTS RESULT OUT OF REFERENCE UNITS RANGE LAB L501.080 70-110 mg/dL High BEDSIDE GLU 239 Result Comment: MANAGEMENT OF PATIENT CARE PER NURSING PROTOCOL Performed By: #### L501.080 #### [facility] Point of Care [address] [place] [address] BEDSIDE GLUCOSE Collected: 01/03/2018 Status: F Source: ANÍBAL 5:26 AM [facility] REPOSITORY TYPE CODE TESTS RESULT OUT OF REFERENCE UNITS RANGE LAB L501.080 70-110 mg/dL High BEDSIDE GLU 139 Result Comment: MANAGEMENT OF PATIENT CARE PER NURSING PROTOCOL Performed By: #### L501.080 #### [facility] Point of Care [address] [place] [address] BASIC METABOLIC Collected: 01/03/2018 Status: F Source: ANÍBAL PROFILE (BMP) 4:00 AM [facility] REPOSITORY TYPE CODE TESTS RESULT OUT OF RANGE REFERENCE UNITS LAB L501.0100 74-106 mg/dL High GLU 113 Result Comment: Fasting Glucose result from 100 to 125 mg/dL suggests IMPAIRED HOMEOSTASIS per A.D.A. criteria. Please note revised GLUCOSE reference range effective 2017. LAB L501.1000 7-18 mg/dL High BUN 29 LAB L501.1100 0.70-1.30 mg/dL Low CREAT,SERUM 0.52 Result Comment: The validity of the calculated GFR AND GFRAA in patients over 70 years has not been determined. Clinical correlation is essential. LAB L501.1110 >60 mL/min Normal EST GFR 173 Result Comment: Non- GFR Calc LAB L501.1115 >60 mL/min Normal EST GFR - AA 209 Result Comment: GFR Calc LAB L501.1255 ml/min Normal Estimated CRCL 147.98 LAB L501.1300 10-20 RATIO High BUN/CRE 55.9 LAB L501.2200 8.5-10 mg/dL .1 CA Normal 9.0 LAB L501.5300 136-14 mmol/L 5 NA Normal 145 LAB L501.5600 3.5-5. mmol/L 1 K Normal 3.9 LAB L501.5900 98-107 mmol/L CL Normal 105 LAB L501.6100 21.0-3 mmol/L 2.0 CO2 Normal 31.0 LAB L501.6200 5-15 GAP Normal 9 Performed By: #### L500.2500 #### [facility] [address] [place], [place], [id number] CBC W/DIFF, AUTOMATED Collected: 01/03/2018 Status: F Source: JAY 4:00 AM [facility] REPOSITORY TYPE CODE TESTS RESULT OUT OF RANGE REFERENCE UNITS LAB L100.1000 4.4-11.0 K/mm3 Normal WBC 8.7 LAB L100.1200 4.6-6.2 M/mm3 Low RBC 4.17 LAB L100.1300 13.0-16.5 g/dl Low HGB 11.3 LAB L100.1400 40-54 % Low HCT 37.1 LAB L100.1500 80-94 fL Normal MCV 89.0 LAB L100.1600 27.0-32.0 pg Normal MCH 27.1 LAB L100.1700 32-36 g/gl Low MCHC 30.5 LAB L100.1810 11.6-14.6 % High RDW CV 15.7 LAB L100.1820 35.1-43.9 fl High RDW SD 50.0 LAB L100.1900 150-450 K/mm3 Low PLT 136 LAB L100.2000 6.2-12.0 fl Normal MPV 11.6 LAB L100.2100 47-70 % High NEUT% 71.2 LAB L100.2200 19-41 % Normal LY% 23.7 LAB L100.2300 0-10 % Normal MONO% 3.8 LAB L100.2400 0-5 % Normal EO% 0.9 LAB L100.2500 0-1 % Normal BASO% 0.1 LAB L100.2550 0.0-0.9 % Normal IM GRAN % 0.300 Result Comment: IG% - Immature Granulocytes (promyelocytes, myelocytes and metamyelocytes) > 1% indicates that a LEFT SHIFT is Present. LAB L100.2620 2.0-7.7 X10 3/uL Normal Absolute Neut 6.2 LAB L100.2720 0.83-4.51 X10 3/ul Normal Absolute Lymph 2.07 Performed By: #### L100.0100 #### [facility] [address] [place], [address] BEDSIDE GLUCOSE Collected: 01/02/2018 Status: F Source: ANÍBAL 11:35 PM [facility] REPOSITORY TYPE CODE TESTS RESULT OUT OF REFERENCE UNITS RANGE LAB L501.080 70-110 mg/dL High BEDSIDE GLU 156 Result Comment: MANAGEMENT OF PATIENT CARE PER NURSING PROTOCOL Performed By: #### L501.080 #### [facility] Point of Care [address] [place] [address] BEDSIDE GLUCOSE Collected: 01/02/2018 Status: F Source: ANÍBAL 10:12 PM [facility] REPOSITORY TYPE CODE TESTS RESULT OUT OF REFERENCE UNITS RANGE LAB L501.080 70-110 mg/dL High BEDSIDE GLU 154 Result Comment: MANAGEMENT OF PATIENT CARE PER NURSING PROTOCOL Performed By: #### L501.080 #### [facility] Point of Care [address] [place] [address] BEDSIDE GLUCOSE Collected: 01/02/2018 Status: F Source: ANÍBAL 6:46 PM [facility] REPOSITORY TYPE CODE TESTS RESULT OUT OF REFERENCE UNITS RANGE LAB L501.080 70-110 mg/dL High BEDSIDE GLU 210 Result Comment: MANAGEMENT OF PATIENT CARE PER NURSING PROTOCOL Performed By: #### L501.080 #### [facility] Point of Care [address] [place] [address] BEDSIDE GLUCOSE Collected: 01/02/2018 Status: F Source: ANÍBAL 12:45 PM [facility] REPOSITORY TYPE CODE TESTS RESULT OUT OF REFERENCE UNITS RANGE LAB L501.080 70-110 mg/dL High BEDSIDE GLU 172 Result Comment: MANAGEMENT OF PATIENT CARE PER NURSING PROTOCOL Performed By: #### L501.080 #### [facility] Point of Care [address] [place] [address] BEDSIDE GLUCOSE Collected: 01/02/2018 Status: F Source: ANÍBAL 5:30 AM [facility] REPOSITORY TYPE CODE TESTS RESULT OUT OF REFERENCE UNITS RANGE LAB L501.080 70-110 mg/dL High BEDSIDE GLU 161 Result Comment: MANAGEMENT OF PATIENT CARE PER NURSING PROTOCOL Performed By: #### L501.080 #### [facility] Point of Care [address] [place], [place] [address] BASIC METABOLIC Collected: 01/02/2018 Status: F Source: ANÍBAL PROFILE (BMP) 3:58 AM [facility] REPOSITORY TYPE CODE TESTS RESULT OUT OF RANGE REFERENCE UNITS LAB L501.0100 74-106 mg/dL High GLU 135 Result Comment: Fasting Glucose result greater than or equal to 126 mg/dL suggests DIABETES MELLITUS per A.D.A. criteria. Please note revised GLUCOSE reference range effective 2017. LAB L501.1000 7-18 mg/dL High BUN 28 LAB L501.1100 0.70-1.30 mg/dL Low CREAT,SERUM 0.58 Result Comment: The validity of the calculated GFR AND GFRAA in patients over 70 years has not been determined. Clinical correlation is essential. LAB L501.1110 >60 mL/min Normal EST GFR 152 Result Comment: Non- GFR Calc LAB L501.1115 >60 mL/min Normal EST GFR - AA 184 Result Comment: GFR Calc LAB L501.1255 ml/min Normal Estimated CRCL 132.67 LAB L501.1300 10-20 RATIO High BUN/CRE 48.3 LAB L501.2200 8.5-10 mg/dL .1 CA Normal 8.8 LAB L501.5300 136-14 mmol/L High 5 NA 147 LAB L501.5600 3.5-5. mmol/L Low 1 K 3.4 LAB L501.5900 98-107 mmol/L CL Normal 106 LAB L501.6100 21.0-3 mmol/L 2.0 CO2 Normal 32.0 LAB L501.6200 5-15 GAP Normal 9 Performed By: #### L500.2500 #### [facility] [address] [place], [place], [address] BEDSIDE GLUCOSE Collected: 01/02/2018 Status: F Source: ANÍBAL 12:13 AM [facility] REPOSITORY TYPE CODE TESTS RESULT OUT OF REFERENCE UNITS RANGE LAB L501.080 70-110 mg/dL High BEDSIDE GLU 159 Result Comment: MANAGEMENT OF PATIENT CARE PER NURSING PROTOCOL Performed By: #### L501.080 #### [facility] Point of Care [address] [place] [address] BEDSIDE GLUCOSE Collected: 01/01/2018 Status: F Source: ANÍBAL 9:35 PM [facility] REPOSITORY TYPE CODE TESTS RESULT OUT OF REFERENCE UNITS RANGE LAB L501.080 70-110 mg/dL High BEDSIDE GLU 187 Result Comment: MANAGEMENT OF PATIENT CARE PER NURSING PROTOCOL Performed By: #### L501.080 #### [facility] Point of Care [address] [place] [address] BEDSIDE GLUCOSE Collected: 01/01/2018 Status: F Source: ANÍBAL 6:01 PM [facility] REPOSITORY TYPE CODE TESTS RESULT OUT OF REFERENCE UNITS RANGE LAB L501.080 70-110 mg/dL High BEDSIDE GLU 252 Result Comment: Dr Orders Followed MANAGEMENT OF PATIENT CARE PER NURSING PROTOCOL Performed By: #### L501.080 #### [facility] Point of Care [address] [place] [address] [place] [address] Observed: 01/01/2018 Status: F Source: ANÍBAL CULTURE, SPUTUM 5:13 PM [facility] REPOSITORY Gram Stain Acceptable Specimen? Yes (<25 Epithelial cells per/lpf) Gram Stain 1+ White Blood Cells 1+ Epithelial cells 4+ Gram positive rods Resp. Culture Gram positive milli suggestive of a diptheroid. There are no CLSI standards for interpretation of this Drug/Organism combination. ORGANISM 1: Gram positive milli Amount Growth 3+ Performed By: #### M100.0800 #### [facility] [address] [place] [address]. [place], [address] POTASSIUM Collected: 01/01/2018 Status: F Source: ANÍBAL 2:45 PM [facility] REPOSITORY TYPE CODE TESTS RESULT OUT OF RANGE REFERENCE UNITS LAB L501.5600 3.5-5.1 mmol/L Normal K 4.2 Performed By: #### L501.5600 #### [facility] [address] [place], [address] BEDSIDE GLUCOSE Collected: 01/01/2018 Status: F Source: ANÍBAL 12:26 PM [facility] REPOSITORY TYPE CODE TESTS RESULT OUT OF REFERENCE UNITS RANGE LAB L501.080 70-110 mg/dL High BEDSIDE GLU 252 Result Comment: MANAGEMENT OF PATIENT CARE PER NURSING PROTOCOL Performed By: #### L501.080 #### [facility] Point of Care [address] [place] [address] ABDOMEN SINGLE VIEW Observed: 01/01/2018 Status: F Source: ANÍBAL (PORTABLE) 8:38 AM [facility] REPOSITORY [facility] Imaging Services [address] [place] [address] Abdomen Single View (Portable) MR#: [id number] Acct: [id number] Name: MANGO MCGARRY Rep #: [id number] : 1960 M 57 From: Karri Blas MD PCP: Tio Parker MD Status: ADM IN Study: Abdomen Single View (Portable) Date of Exam: 01/01/18 Exam# [id number] Ordering Dr: Kenroy Caballero DO STUDY: X-RAY - ABDOMEN/PELVIS REASON FOR EXAM: Male, 57 years old. Pain TECHNIQUE: Two AP supine views of the abdomen and pelvis. COMPARISON: 12/22/2017 FINDINGS: There is no bowel obstruction. There is air and stool to the level of the rectum. The visualized osseous structures are within normal limits. RAD/Abdomen Single View (Portable) IMPRESSION: No bowel obstruction. Electronically Signed: Karri Blas, at 9:20 EST Tel , Service support , CC: Suzi Caballero; Tio Parker MD Clerk Cashier: Signed CHEST 1 VIEW Observed: 01/01/2018 Status: F Source: JAY (PORTABLE) 8:29 AM [facility] REPOSITORY [facility] Imaging Services [address] [place] [address] Chest 1 View (Portable) MR#: [id number] Acct: [id number] Name: MANGO MCGARRY Rep #: [id number] : 1960 M 57 From: Karri Blas MD PCP: Tio Parker MD Status: ADM IN Study: Chest 1 View (Portable) Date of Exam: 01/01/18 Exam# [id number] Ordering Dr: Kenroy Caballero DO STUDY: X-RAY CHEST REASON FOR EXAM: Male, 57 years old. Shortness of breath TECHNIQUE: Frontal view of the chest COMPARISON: 12/30/2017 FINDINGS: The lungs are clear. There are no pleural effusions. There is no pneumothorax. The heart is mildly enlarged, but stable. Again noted is a tracheostomy tube. There is a right-sided PICC line with its tip in the superior vena cava. The visualized osseous structures are within normal limits. RAD/Chest 1 View (Portable) IMPRESSION: No acute thoracic pathology. Electronically Signed: Karri Blas, at 9:19 EST Tel , Service support , CC: Suzi Caballero; Tio Parker MD Clerk Cashier: Signed CBC-COMPLETE BLOOD CNT Collected: 01/01/2018 Status: F Source: ANÍBAL NO DIFF 5:45 AM [facility] REPOSITORY TYPE CODE TESTS RESULT OUT OF RANGE REFERENCE UNITS LAB L100.1000 4.4-11.0 K/mm3 Normal WBC 8.7 LAB L100.1200 4.6-6.2 M/mm3 Low RBC 4.13 LAB L100.1300 13.0-16.5 g/dl Low HGB 11.3 LAB L100.1400 40-54 % Low HCT 37.4 LAB L100.1500 80-94 fL Normal MCV 90.6 LAB L100.1600 27.0-32.0 pg Normal MCH 27.4 LAB L100.1700 32-36 g/gl Low MCHC 30.2 LAB L100.1810 11.6-14.6 % High RDW CV 15.1 LAB L100.1820 35.1-43.9 fl High RDW SD 48.8 LAB L100.1900 150-450 K/mm3 Low PLT 142 LAB L100.2000 6.2-12.0 fl High MPV 12.5 Performed By: #### L100.0500 #### [facility] [address] [place], [address] BASIC METABOLIC Collected: 01/01/2018 Status: F Source: JAY PROFILE (BMP) 5:45 AM [facility] REPOSITORY TYPE CODE TESTS RESULT OUT OF RANGE REFERENCE UNITS LAB L501.0100 74-106 mg/dL High GLU 132 Result Comment: Fasting Glucose result greater than or equal to 126 mg/dL suggests DIABETES MELLITUS per A.D.A. criteria. Please note revised GLUCOSE reference range effective 2017. LAB L501.1000 7-18 mg/dL High BUN 28 LAB L501.1100 0.70-1.30 mg/dL Low CREAT,SERUM 0.57 Result Comment: The validity of the calculated GFR AND GFRAA in patients over 70 years has not been determined. Clinical correlation is essential. LAB L501.1110 >60 mL/min Normal EST GFR 155 Result Comment: Non- GFR Calc LAB L501.1115 >60 mL/min Normal EST GFR - AA 188 Result Comment: GFR Calc LAB L501.1255 ml/min Normal Estimated CRCL 135.00 LAB L501.1300 10-20 RATIO High BUN/CRE 49.1 LAB L501.2200 8.5-10 mg/dL .1 CA Normal 8.6 LAB L501.5300 136-14 mmol/L High 5 NA 146 LAB L501.5600 3.5-5. mmol/L Low 1 K 3.3 LAB L501.5900 98-107 mmol/L CL Normal 106 LAB L501.6100 21.0-3 mmol/L High 2.0 CO2 34.0 LAB L501.6200 5-15 GAP Normal 6 Performed By: #### L500.2500, L501.5200 #### [facility] [address] [place], [address] MAGNESIUM Collected: 01/01/2018 Status: F Source: ANÍBAL 5:45 AM [facility] REPOSITORY TYPE CODE TESTS RESULT OUT OF RANGE REFERENCE UNITS LAB L501.5200 1.6-2.6 mg/dL Normal MG 2.3 Performed By: #### L500.2500, L501.5200 #### [facility] [address] [place], [address] BEDSIDE GLUCOSE Collected: 01/01/2018 Status: F Source: ANÍBAL 5:44 AM [facility] REPOSITORY TYPE CODE TESTS RESULT OUT OF REFERENCE UNITS RANGE LAB L501.080 70-110 mg/dL High BEDSIDE GLU 132 Result Comment: MANAGEMENT OF PATIENT CARE PER NURSING PROTOCOL Performed By: #### L501.080 #### [facility] Point of Care [address] [place] [address] BEDSIDE GLUCOSE Collected: 01/01/2018 Status: F Source: ANÍBAL 12:17 AM [facility] REPOSITORY TYPE CODE TESTS RESULT OUT OF REFERENCE UNITS RANGE LAB L501.080 70-110 mg/dL High BEDSIDE GLU 137 Result Comment: MANAGEMENT OF PATIENT CARE PER NURSING PROTOCOL Performed By: #### L501.080 #### [facility] Point of Care [address] [place] [address] BEDSIDE GLUCOSE Collected: 12/31/2017 Status: F Source: ANÍBAL 9:52 PM [facility] REPOSITORY TYPE CODE TESTS RESULT OUT OF REFERENCE UNITS RANGE LAB L501.080 70-110 mg/dL High BEDSIDE GLU 204 Result Comment: MANAGEMENT OF PATIENT CARE PER NURSING PROTOCOL Performed By: #### L501.080 #### [facility] Point of Care [address] [place] [address] BEDSIDE GLUCOSE Collected: 12/31/2017 Status: F Source: ANÍBAL 6:16 PM [facility] REPOSITORY TYPE CODE TESTS RESULT OUT OF REFERENCE UNITS RANGE LAB L501.080 70-110 mg/dL High BEDSIDE GLU 269 Result Comment: Dr Maldonado Followed MANAGEMENT OF PATIENT CARE PER NURSING PROTOCOL Performed By: #### L501.080 #### [facility] Point of Care [address] [place] [address] BEDSIDE GLUCOSE Collected: 12/31/2017 Status: F Source: ANÍBAL 12:16 PM [facility] REPOSITORY TYPE CODE TESTS RESULT OUT OF REFERENCE UNITS RANGE LAB L501.080 70-110 mg/dL High BEDSIDE GLU 254 Result Comment: MANAGEMENT OF PATIENT CARE PER NURSING PROTOCOL Performed By: #### L501.080 #### [facility] Point of Care [address] [place] [address] BEDSIDE GLUCOSE Collected: 12/31/2017 Status: F Source: ANÍBAL 7:11 AM [facility] REPOSITORY TYPE CODE TESTS RESULT OUT OF REFERENCE UNITS RANGE LAB L501.080 70-110 mg/dL High BEDSIDE GLU 194 Result Comment: MANAGEMENT OF PATIENT CARE PER NURSING PROTOCOL Performed By: #### L501.080 #### [facility] Point of Care [address] [place] [address] BEDSIDE GLUCOSE Collected: 12/31/2017 Status: F Source: ANÍBAL 12:21 AM [facility] REPOSITORY TYPE CODE TESTS RESULT OUT OF REFERENCE UNITS RANGE LAB L501.080 70-110 mg/dL High BEDSIDE GLU 224 Result Comment: MANAGEMENT OF PATIENT CARE PER NURSING PROTOCOL Performed By: #### L501.080 #### [facility] Point of Care [address] [place] [address] BEDSIDE GLUCOSE Collected: 12/30/2017 Status: F Source: ANÍBAL 9:11 PM [facility] REPOSITORY TYPE CODE TESTS RESULT OUT OF REFERENCE UNITS RANGE LAB L501.080 70-110 mg/dL High BEDSIDE GLU 220 Result Comment: MANAGEMENT OF PATIENT CARE PER NURSING PROTOCOL Performed By: #### L501.080 #### [facility] Point of Care [address] [place] [address] BEDSIDE GLUCOSE Collected: 12/30/2017 Status: F Source: ANÍBAL 6:28 PM [facility] REPOSITORY TYPE CODE TESTS RESULT OUT OF REFERENCE UNITS RANGE LAB L501.080 70-110 mg/dL High BEDSIDE GLU 151 Result Comment: MANAGEMENT OF PATIENT CARE PER NURSING PROTOCOL Performed By: #### L501.080 #### [facility] Point of Care [address] [place] [address] BEDSIDE GLUCOSE Collected: 12/30/2017 Status: F Source: ANÍBAL 12:28 PM [facility] REPOSITORY TYPE CODE TESTS RESULT OUT OF RANGE REFERENCE UNITS LAB L501.080 70-110 mg/dL Normal BEDSIDE GLU 102 Result Comment: MANAGEMENT OF PATIENT CARE PER NURSING PROTOCOL Performed By: #### L501.080 #### [facility] Point of Care [address] [place] [address] OPERATIVE REPORT Observed: 12/30/2017 Status: F Source: JAY 11:36 AM [facility] REPOSITORY [facility] Medical Records Department [address] [place] [address] Operative Report 12/30/17 1124 MR#: [id number] Acct: [id number] Name: MANGO MCGARRY Rep #: [id number] : 1960 57 From: Roscoe Bazzi MD PCP: Tio Parker MD Status: ADM IN Y Location: ICU ICU-1 Report of Operation Date of Procedure: 12/30/17 Pre-Operative Diagnosis: respiratory failure/prolonged ventilation Post-Operative Diagnosis: same Surgery/Procedure Performed:: Tracheotomy Description of Surgical Findings:: #8 OCC THERAPIST placed Type of Anesthesia:: General Anesthesiologist: Juan Manuel Chappell Specimen's removed: none Estimated Blood Loss (mL): minimal Description of Procedure: The patient was taken to the OR on 12/30/17. He was placed in the supine position on the OR table. He was given sufficient general anesthesia. The skin was prepped and draped steriley. 1% lidocaine with epinephrine ([id number]) was injected into the skin. I then made a 4 cm incision with a 15 blade just above the sternal notch. Hemostasis was achieved with monopolar cautery. I then removed fat from the neck with a Bovie. The midline was identified and the strap muscles were skeletonized. They were then lateralized with Allis clamps. A large vein superficial to the thyroid was clamped, cut and ligated with 3-0 silk. The cricoid cartilage was identified. A plane was established deep the thyroid isthmus with blunt dissection. The isthmus was clamped, cut with a bovie and suture ligated with 2-0 chromic. The isthmus was then lateralized on each side with [facility] retractors. Next, the second tracheal window was identified. The cuff was deflated. A cricoid hook was placed on the cricoid and elevated superiorly. I cut a window out of the second tracheal ring with a 15 blade. The window was removed. I split the third tracheal ring with a Urbano scissors. A trach magazine writer was then used. The ETT tube was backed out to above the window. A #8 OCC THERAPIST was placed and the obturator was removed. The inner canula was placed and the circuit was connected. We immediately saw end tidal CO2. The cuff was inflated. The retractors were removed. I placed a 4-0 Vicryl stitch subcutaneously on each side to narrow the skin opening. We then sewed the trach tube to the skin with 3-0 Nylon. Trach ties were placed around the neck and the tube was secured with the ties. The procedure was terminated. He was removed from the OR and brought to the ICU in stable condition. Blood loss minimal, replacement none. Sponge, needle and instrument count were correct at the end of the procedure. 12/30/17 1136 <Electronically signed by Roscoe Bazzi MD> Date Roscoe Bazzi MD CC: Sebastien Weinberg MD; Robert Paredes MD; Dominick Denny D.O.; Roscoe Bazzi MD; Tio Parker MD Signed CHEST 1 VIEW Observed: 12/30/2017 Status: F Source: JAY (PORTABLE) 11:07 AM [facility] REPOSITORY [facility] Imaging Services [address] [place] [address] Chest 1 View (Portable) MR#: [id number] Acct: [id number] Name: MANGO MCGARRY Rep #: [id number] : 1960 M 57 From: Julio Navas MD PCP: Tio Parker MD Status: ADM IN Study: Chest 1 View (Portable) Date of Exam: 12/30/17 Exam# [id number] Ordering Dr: Roscoe Bazzi MD STUDY: X-RAY CHEST REASON FOR EXAM: Male, 57 years old. Tracheostomy placement. Evaluate for pneumothorax. TECHNIQUE: AP upright chest COMPARISON: CT chest 12/26/2017 FINDINGS: Tracheostomy tube tip reflects within tracheal air stripe. There is no pneumothorax. No effusion. There is evidence of bibasilar atelectasis. Mild cardiomegaly. Normal mediastinal silhouette, marta and pleural margins. No acute osseous or upper abdominal process. RAD/Chest 1 View (Portable) IMPRESSION: The tracheostomy tube appears to be well positioned. No visible pneumothorax. Electronically Signed: Julio Eloise, at 11:59 EST Tel , Service support , CC: Roscoe Bazzi MD; Tio Parker MD Clerk Cashier: Signed BEDSIDE GLUCOSE Collected: 12/30/2017 Status: F Source: ANÍBAL 9:00 AM [facility] REPOSITORY TYPE CODE TESTS RESULT OUT OF RANGE REFERENCE UNITS LAB L501.080 70-110 mg/dL Normal BEDSIDE GLU 87 Result Comment: MANAGEMENT OF PATIENT CARE PER NURSING PROTOCOL Performed By: #### L501.080 #### [facility] Point of Care [address] [place] [address] BEDSIDE GLUCOSE Collected: 12/30/2017 Status: F Source: ANÍBAL 5:32 AM [facility] REPOSITORY TYPE CODE TESTS RESULT OUT OF RANGE REFERENCE UNITS LAB L501.080 70-110 mg/dL Normal BEDSIDE GLU 108 Result Comment: MANAGEMENT OF PATIENT CARE PER NURSING PROTOCOL Performed By: #### L501.080 #### [facility] Point of Care [address] [place], [place] [address] CBC W/DIFF, AUTOMATED Collected: 12/30/2017 Status: F Source: ANÍBAL 4:40 AM [facility] REPOSITORY TYPE CODE TESTS RESULT OUT OF RANGE REFERENCE UNITS LAB L100.1000 4.4-11.0 K/mm3 Normal WBC 8.5 LAB L100.1200 4.6-6.2 M/mm3 Low RBC 4.39 LAB L100.1300 13.0-16.5 g/dl Low HGB 11.9 LAB L100.1400 40-54 % Normal HCT 40.0 LAB L100.1500 80-94 fL Normal MCV 91.1 LAB L100.1600 27.0-32.0 pg Normal MCH 27.1 LAB L100.1700 32-36 g/gl Low MCHC 29.8 LAB L100.1810 11.6-14.6 % High RDW CV 15.1 LAB L100.1820 35.1-43.9 fl High RDW SD 50.3 LAB L100.1900 150-450 K/mm3 Low PLT 137 LAB L100.2000 6.2-12.0 fl High MPV 12.6 LAB L100.2100 47-70 % Normal NEUT% 69.5 LAB L100.2200 19-41 % Normal LY% 22.2 LAB L100.2300 0-10 % Normal MONO% 5.5 LAB L100.2400 0-5 % Normal EO% 1.9 LAB L100.2500 0-1 % Normal BASO% 0.1 LAB L100.2550 0.0-0.9 % Normal IM GRAN % 0.800 Result Comment: IG% - Immature Granulocytes (promyelocytes, myelocytes and metamyelocytes) > 1% indicates that a LEFT SHIFT is Present. LAB L100.2620 2.0-7.7 X10 3/uL Normal Absolute Neut 5.9 LAB L100.2720 0.83-4.51 X10 3/ul Normal Absolute Lymph 1.88 Performed By: #### L100.0100, L500.2500 #### [facility] [address] [place], [place], [id number] BASIC METABOLIC Collected: 12/30/2017 Status: F Source: ANÍBAL PROFILE (BMP) 4:40 AM [facility] REPOSITORY TYPE CODE TESTS RESULT OUT OF RANGE REFERENCE UNITS LAB L501.0100 74-106 mg/dL High GLU 108 Result Comment: Fasting Glucose result from 100 to 125 mg/dL suggests IMPAIRED HOMEOSTASIS per A.D.A. criteria. Please note revised GLUCOSE reference range effective 2017. LAB L501.1000 7-18 mg/dL High BUN 33 LAB L501.1100 0.70-1.30 mg/dL Low CREAT,SERUM 0.63 Result Comment: The validity of the calculated GFR AND GFRAA in patients over 70 years has not been determined. Clinical correlation is essential. LAB L501.1110 >60 mL/min Normal EST GFR 137 Result Comment: Non- GFR Calc LAB L501.1115 >60 mL/min Normal EST GFR - AA 166 Result Comment: GFR Calc LAB L501.1255 ml/min Normal Estimated CRCL 122.14 LAB L501.1300 10-20 RATIO High BUN/CRE 52.1 LAB L501.2200 8.5-10 mg/dL .1 CA Normal 8.5 LAB L501.5300 136-14 mmol/L High 5 NA 147 LAB L501.5600 3.5-5. mmol/L Low 1 K 3.2 LAB L501.5900 98-107 mmol/L CL Normal 106 LAB L501.6100 21.0-3 mmol/L High 2.0 CO2 34.0 LAB L501.6200 5-15 GAP Normal 7 Performed By: #### L100.0100, L500.2500 #### [facility] [address] [place], [place], [id number] PARTIAL THROMBOPLAST Collected: 12/30/2017 Status: F Source: ANÍBAL TIME 4:40 AM [facility] REPOSITORY TYPE CODE TESTS RESULT OUT OF REFERENCE UNITS RANGE LAB L300.4310 24.1-36.2 Seconds Low PTT 21.3 Performed By: #### L300.4310, L501.9985 #### [facility] [address] [place], [place], [address] HEMOGLOBIN A1C Collected: 12/30/2017 Status: F Source: ANÍBAL 4:40 AM [facility] REPOSITORY TYPE CODE TESTS RESULT OUT OF RANGE REFERENCE UNITS LAB L501.9985 4.2-6.3 % High HGB A1C 7.7 Performed By: #### L300.4310, L501.9985 #### [facility] [address] [place], [place], [id number] BEDSIDE GLUCOSE Collected: 12/29/2017 Status: F Source: ANÍBAL 10:46 PM [facility] REPOSITORY TYPE CODE TESTS RESULT OUT OF REFERENCE UNITS RANGE LAB L501.080 70-110 mg/dL High BEDSIDE GLU 194 Result Comment: MANAGEMENT OF PATIENT CARE PER NURSING PROTOCOL Performed By: #### L501.080 #### [facility] Point of Care [address] [place], [place] [id number] BEDSIDE GLUCOSE Collected: 12/29/2017 Status: F Source: ANÍBAL 5:06 PM [facility] REPOSITORY TYPE CODE TESTS RESULT OUT OF REFERENCE UNITS RANGE LAB L501.080 70-110 mg/dL High BEDSIDE GLU 237 Result Comment: MANAGEMENT OF PATIENT CARE PER NURSING PROTOCOL Performed By: #### L501.080 #### [facility] Point of Care [address] [place], [place] [id number] BEDSIDE GLUCOSE Collected: 12/29/2017 Status: F Source: ANÍBAL 11:17 AM [facility] REPOSITORY TYPE CODE TESTS RESULT OUT OF REFERENCE UNITS RANGE LAB L501.080 70-110 mg/dL High BEDSIDE GLU 173 Result Comment: MANAGEMENT OF PATIENT CARE PER NURSING PROTOCOL Performed By: #### L501.080 #### [facility] Point of Care [address] [place] [address] BASIC METABOLIC Collected: 12/29/2017 Status: F Source: ANÍBAL PROFILE (BMP) 7:00 AM [facility] REPOSITORY TYPE CODE TESTS RESULT OUT OF RANGE REFERENCE UNITS LAB L501.0100 74-106 mg/dL High GLU 157 Result Comment: Fasting Glucose result greater than or equal to 126 mg/dL suggests DIABETES MELLITUS per A.D.A. criteria. Please note revised GLUCOSE reference range effective 2017. LAB L501.1000 7-18 mg/dL High BUN 33 LAB L501.1100 0.70-1.30 mg/dL Normal CREAT,SERUM 0.75 Result Comment: The validity of the calculated GFR AND GFRAA in patients over 70 years has not been determined. Clinical correlation is essential. LAB L501.1110 >60 mL/min Normal EST GFR 113 Result Comment: Non- GFR Calc LAB L501.1115 >60 mL/min Normal EST GFR - AA 137 Result Comment: GFR Calc LAB L501.1255 ml/min Normal Estimated CRCL 102.60 LAB L501.1300 10-20 RATIO High BUN/CRE 44.0 LAB L501.2200 8.5-10 mg/dL .1 CA Normal 8.7 LAB L501.5300 136-14 mmol/L High 5 NA 146 LAB L501.5600 3.5-5. mmol/L 1 K Normal 3.6 LAB L501.5900 98-107 mmol/L High CL 108 LAB L501.6100 21.0-3 mmol/L High 2.0 CO2 34.0 LAB L501.6200 5-15 Low GAP 4 Performed By: #### L500.2500 #### [facility] [address] [address] BEDSIDE GLUCOSE Collected: 12/29/2017 Status: F Source: ANÍBAL 6:15 AM [facility] REPOSITORY TYPE CODE TESTS RESULT OUT OF REFERENCE UNITS RANGE LAB L501.080 70-110 mg/dL High BEDSIDE GLU 171 Result Comment: MANAGEMENT OF PATIENT CARE PER NURSING PROTOCOL Performed By: #### L501.080 #### [facility] Point of Care [address] [place] [address] BEDSIDE GLUCOSE Collected: 12/28/2017 Status: F Source: ANÍBAL 10:51 PM [facility] REPOSITORY TYPE CODE TESTS RESULT OUT OF REFERENCE UNITS RANGE LAB L501.080 70-110 mg/dL High BEDSIDE GLU 183 Result Comment: MANAGEMENT OF PATIENT CARE PER NURSING PROTOCOL Performed By: #### L501.080 #### [facility] Point of Care [address] [place] [address] BEDSIDE GLUCOSE Collected: 12/28/2017 Status: F Source: ANÍBAL 5:48 PM [facility] REPOSITORY TYPE CODE TESTS RESULT OUT OF REFERENCE UNITS RANGE LAB L501.080 70-110 mg/dL High BEDSIDE GLU 178 Result Comment: MANAGEMENT OF PATIENT CARE PER NURSING PROTOCOL Performed By: #### L501.080 #### [facility] Point of Care [address] [place] [address] BEDSIDE GLUCOSE Collected: 12/28/2017 Status: F Source: ANÍBAL 11:45 AM [facility] REPOSITORY TYPE CODE TESTS RESULT OUT OF RANGE REFERENCE UNITS LAB L501.080 70-110 mg/dL Normal BEDSIDE GLU 70 Result Comment: MANAGEMENT OF PATIENT CARE PER NURSING PROTOCOL Performed By: #### L501.080 #### [facility] Point of Care [address] [place] [address] BEDSIDE GLUCOSE Collected: 12/28/2017 Status: F Source: ANÍBAL 11:22 AM [facility] REPOSITORY TYPE CODE TESTS RESULT OUT OF REFERENCE UNITS RANGE LAB L501.080 70-110 mg/dL Low BEDSIDE GLU 58 Result Comment: MANAGEMENT OF PATIENT CARE PER NURSING PROTOCOL Performed By: #### L501.080 #### [facility] Point of Care [address] [place] [address] BLOOD GASES BY [facility] Collected: 12/28/2017 Status: F Source: ANÍBAL 8:50 AM [facility] REPOSITORY TYPE CODE TESTS RESULT OUT OF RANGE REFERENCE UNITS LAB L9000.9990 Normal BLD GAS ART TYPE LAB L9001.1110 7.35-7.45 High pH - 7.46 I-STAT LAB L9001.1210 35-45 mmHg High pCO2 - 46.9 ISTAT LAB L9001.1310 75-100 mmHG Low PO2 58 I-STAT LAB L9001.2300 22-26 mmol/L High HCO3 33.6 ISTAT LAB L9001.2400 -2 to +2 mmol/L High BE ISTAT 10 LAB L9001.2415 mmol/L Normal TOTAL CO2 35 ISTAT LAB L9001.2425 95-99 % Low SO2 ISTAT 91 Performed By: #### L9000.0800 #### [facility] Point of Care [address] [place] [address] VENOUS BLOOD GAS Collected: 12/28/2017 Status: F Source: ANÍBAL 8:47 AM [facility] REPOSITORY TYPE CODE TESTS RESULT OUT OF RANGE REFERENCE UNITS LAB L9000.9990 Normal BLD GAS JAYLENE TYPE LAB L9002.1110 7.32-7.42 High VBGpH - 7.45 I-STAT LAB L9002.1212 41-51 mmHg Normal VBG pCO2 49.1 - ISTA LAB L9002.1310 25-40 mmHg Normal VBG PO2 31 I-STAT LAB L9002.2300 22-26 mmol/L High VBG HCO3 34 ISTAT LAB L9002.2400 -1.0-3.5 mmol/L High VBG BE 10 ISTAT LAB L9002.2410 50-70 % Normal VBG SO2 62 ISTAT LAB L9002.2415 23-33 mmol/L High VBG O2 CT 36 ISTAT Performed By: #### L9000.0810 #### [facility] Point of Care [address] [facility] [place], [place] [id number] VENOUS BLOOD GAS Collected: 12/28/2017 Status: F Source: ANÍBAL 8:44 AM [facility] REPOSITORY TYPE CODE TESTS RESULT OUT OF RANGE REFERENCE UNITS LAB L9000.9990 Normal BLD GAS JAYLENE TYPE LAB L9002.1110 7.32-7.42 High VBGpH - 7.45 I-STAT LAB L9002.1212 41-51 mmHg Normal VBG pCO2 49.8 - ISTA LAB L9002.1310 25-40 mmHg Normal VBG PO2 33 I-STAT LAB L9002.2300 22-26 mmol/L High VBG HCO3 35 ISTAT LAB L9002.2400 -1.0-3.5 mmol/L High VBG BE 11 ISTAT LAB L9002.2410 50-70 % Normal VBG SO2 65 ISTAT LAB L9002.2415 23-33 mmol/L High VBG O2 CT 36 ISTAT Performed By: #### L9000.0810 #### [facility] Point of Care [address] [facility] [place], [place] [id number] BEDSIDE GLUCOSE Collected: 12/28/2017 Status: F Source: ANÍBAL 5:25 AM [facility] REPOSITORY TYPE CODE TESTS RESULT OUT OF RANGE REFERENCE UNITS LAB L501.080 70-110 mg/dL Normal BEDSIDE GLU 80 Result Comment: MANAGEMENT OF PATIENT CARE PER NURSING PROTOCOL Performed By: #### L501.080 #### Aníbal [facility] [place] [address] CBC W/DIFF, AUTOMATED Collected: 12/28/2017 Status: F Source: ANÍBAL 4:25 AM [facility] REPOSITORY TYPE CODE TESTS RESULT OUT OF RANGE REFERENCE UNITS LAB L100.1000 4.4-11.0 K/mm3 Normal WBC 8.5 LAB L100.1200 4.6-6.2 M/mm3 Low RBC 4.50 LAB L100.1300 13.0-16.5 g/dl Low HGB 12.4 LAB L100.1400 40-54 % Normal HCT 41.4 LAB L100.1500 80-94 fL Normal MCV 92.0 LAB L100.1600 27.0-32.0 pg Normal MCH 27.6 LAB L100.1700 32-36 g/gl Low MCHC 30.0 LAB L100.1810 11.6-14.6 % High RDW CV 14.9 LAB L100.1820 35.1-43.9 fl High RDW SD 48.7 LAB L100.1900 150-450 K/mm3 Low PLT 144 LAB L100.2000 6.2-12.0 fl High MPV 12.5 LAB L100.2100 47-70 % High NEUT% 70.8 LAB L100.2200 19-41 % Normal LY% 21.9 LAB L100.2300 0-10 % Normal MONO% 5.3 LAB L100.2400 0-5 % Normal EO% 1.3 LAB L100.2500 0-1 % Normal BASO% 0.1 LAB L100.2550 0.0-0.9 % Normal IM GRAN % 0.600 Result Comment: IG% - Immature Granulocytes (promyelocytes, myelocytes and metamyelocytes) > 1% indicates that a LEFT SHIFT is Present. LAB L100.2620 2.0-7.7 X10 3/uL Normal Absolute Neut 6.0 LAB L100.2720 0.83-4.51 X10 3/ul Normal Absolute Lymph 1.87 Performed By: #### L100.0100 #### [facility] [address] [place], [address] BASIC METABOLIC Collected: 12/28/2017 Status: F Source: ANÍBAL PROFILE (BMP) 4:25 AM [facility] REPOSITORY TYPE CODE TESTS RESULT OUT OF RANGE REFERENCE UNITS LAB L501.0100 74-106 mg/dL Normal GLU 79 Result Comment: Please note revised GLUCOSE reference range effective 2017. LAB L501.1000 7-18 mg/dL High BUN 30 LAB L501.1100 0.70-1.30 mg/dL Normal CREAT,SERUM 0.70 Result Comment: The validity of the calculated GFR AND GFRAA in patients over 70 years has not been determined. Clinical correlation is essential. LAB L501.1110 >60 mL/min Normal EST GFR 122 Result Comment: Non- GFR Calc LAB L501.1115 >60 mL/min Normal EST GFR - AA 148 Result Comment: GFR Calc LAB L501.1255 ml/min Normal Estimated CRCL 109.93 LAB L501.1300 10-20 RATIO High BUN/CRE 42.8 LAB L501.2200 8.5-10 mg/dL .1 CA Normal 8.6 LAB L501.5300 136-14 mmol/L High 5 NA 150 LAB L501.5600 3.5-5. mmol/L Low 1 K 3.3 LAB L501.5900 98-107 mmol/L High CL 109 LAB L501.6100 21.0-3 mmol/L High 2.0 CO2 36.0 LAB L501.6200 5-15 GAP Normal 5 Performed By: #### L500.2500 #### [facility] [address] [place], [address] BEDSIDE GLUCOSE Collected: 12/27/2017 Status: F Source: ANÍBAL 11:06 PM [facility] REPOSITORY TYPE CODE TESTS RESULT OUT OF REFERENCE UNITS RANGE LAB L501.080 70-110 mg/dL High BEDSIDE GLU 129 Result Comment: MANAGEMENT OF PATIENT CARE PER NURSING PROTOCOL Performed By: #### L501.080 #### [facility] Point of Care [address] [place] [address] BEDSIDE GLUCOSE Collected: 12/27/2017 Status: F Source: ANÍBAL 5:29 PM [facility] REPOSITORY TYPE CODE TESTS RESULT OUT OF REFERENCE UNITS RANGE LAB L501.080 70-110 mg/dL High BEDSIDE GLU 131 Result Comment: MANAGEMENT OF PATIENT CARE PER NURSING PROTOCOL Performed By: #### L501.080 #### [facility] Point of Care [address] [place] [address] BEDSIDE GLUCOSE Collected: 12/27/2017 Status: F Source: ANÍBAL 12:49 PM [facility] REPOSITORY TYPE CODE TESTS RESULT OUT OF REFERENCE UNITS RANGE LAB L501.080 70-110 mg/dL High BEDSIDE GLU 139 Result Comment: MANAGEMENT OF PATIENT CARE PER NURSING PROTOCOL Performed By: #### L501.080 #### [facility] Point of Care [address] [place] [address] BEDSIDE GLUCOSE Collected: 12/27/2017 Status: F Source: ANÍBAL 5:23 AM [facility] REPOSITORY TYPE CODE TESTS RESULT OUT OF REFERENCE UNITS RANGE LAB L501.080 70-110 mg/dL High BEDSIDE GLU 136 Result Comment: MANAGEMENT OF PATIENT CARE PER NURSING PROTOCOL Performed By: #### L501.080 #### [facility] Point of Care [address] [place] [address] BASIC METABOLIC Collected: 12/27/2017 Status: F Source: ANÍBAL PROFILE (BMP) 4:00 AM [facility] REPOSITORY TYPE CODE TESTS RESULT OUT OF RANGE REFERENCE UNITS LAB L501.0100 74-106 mg/dL High GLU 136 Result Comment: Fasting Glucose result greater than or equal to 126 mg/dL suggests DIABETES MELLITUS per A.D.A. criteria. Please note revised GLUCOSE reference range effective 2017. LAB L501.1000 7-18 mg/dL High BUN 35 LAB L501.1100 0.70-1.30 mg/dL Normal CREAT,SERUM 0.82 Result Comment: The validity of the calculated GFR AND GFRAA in patients over 70 years has not been determined. Clinical correlation is essential. LAB L501.1110 >60 mL/min Normal EST GFR 102 Result Comment: Non- GFR Calc LAB L501.1115 >60 mL/min Normal EST GFR - AA 123 Result Comment: GFR Calc LAB L501.1255 ml/min Normal Estimated CRCL 93.84 LAB L501.1300 10-20 RATIO High BUN/CRE 42.7 LAB L501.2200 8.5-10 mg/dL Normal .1 CA 8.7 LAB L501.5300 136-14 mmol/L High 5 NA 150 LAB L501.5600 3.5-5. mmol/L Normal 1 K 3.9 LAB L501.5900 98-107 mmol/L High CL 111 LAB L501.6100 21.0-3 mmol/L Normal 2.0 CO2 32.0 LAB L501.6200 5-15 Normal GAP 7 Performed By: #### L500.2500 #### [facility] [address] [place], [place], [address] CBC W/DIFF, AUTOMATED Collected: 12/27/2017 Status: F Source: JAY 4:00 AM [facility] REPOSITORY TYPE CODE TESTS RESULT OUT OF RANGE REFERENCE UNITS LAB L100.1000 4.4-11.0 K/mm3 Normal WBC 7.9 LAB L100.1200 4.6-6.2 M/mm3 Low RBC 4.27 LAB L100.1300 13.0-16.5 g/dl Low HGB 12.0 LAB L100.1400 40-54 % Normal HCT 40.0 LAB L100.1500 80-94 fL Normal MCV 93.7 LAB L100.1600 27.0-32.0 pg Normal MCH 28.1 LAB L100.1700 32-36 g/gl Low MCHC 30.0 LAB L100.1810 11.6-14.6 % High RDW CV 14.8 LAB L100.1820 35.1-43.9 fl High RDW SD 49.2 LAB L100.1900 150-450 K/mm3 Low PLT 143 LAB L100.2000 6.2-12.0 fl Normal MPV 12.0 LAB L100.2100 47-70 % High NEUT% 74.1 LAB L100.2200 19-41 % Low LY% 17.6 LAB L100.2300 0-10 % Normal MONO% 7.7 LAB L100.2400 0-5 % Normal EO% 0.1 LAB L100.2500 0-1 % Normal BASO% 0.1 LAB L100.2550 0.0-0.9 % Normal IM GRAN % 0.400 Result Comment: IG% - Immature Granulocytes (promyelocytes, myelocytes and metamyelocytes) > 1% indicates that a LEFT SHIFT is Present. LAB L100.2620 2.0-7.7 X10 3/uL Normal Absolute Neut 5.9 LAB L100.2720 0.83-4.51 X10 3/ul Normal Absolute Lymph 1.39 Performed By: #### L100.0100 #### [facility] [address] [place], [address] BEDSIDE GLUCOSE Collected: 12/26/2017 Status: F Source: ANÍBAL 10:57 PM [facility] REPOSITORY TYPE CODE TESTS RESULT OUT OF REFERENCE UNITS RANGE LAB L501.080 70-110 mg/dL High BEDSIDE GLU 119 Result Comment: MANAGEMENT OF PATIENT CARE PER NURSING PROTOCOL Performed By: #### L501.080 #### [facility] Point of Care [address] [place] [address] BEDSIDE GLUCOSE Collected: 12/26/2017 Status: F Source: ANÍBAL 6:35 PM [facility] REPOSITORY TYPE CODE TESTS RESULT OUT OF REFERENCE UNITS RANGE LAB L501.080 70-110 mg/dL High BEDSIDE GLU 133 Result Comment: MANAGEMENT OF PATIENT CARE PER NURSING PROTOCOL Performed By: #### L501.080 #### [facility] Point of Care [address] [place] [address] CTA CHEST W/WO Observed: 12/26/2017 Status: F Source: ANÍBAL CONTRAST 3:02 PM [facility] REPOSITORY [facility] Imaging Services [address] [place] [address] CTA Chest W/WO Contrast MR#: [id number] Acct: [id number] Name: IRAM MCGARRYCARMELLA Genao Rep #: [id number] : 1960 M 57 From: Filemon Orona MD PCP: Tio Parker MD Status: ADM IN Study: CTA Chest W/WO Contrast Date of Exam: 12/26/17 Exam# [id number] Ordering Dr: Dominick Denny DO STUDY: CTA CHEST REASON FOR EXAM: Male, 57 years old. Short of breath RADIATION DOSAGE (If Supplied By Facility): CTDIvol = ( 15.06 ) mGy, DLP = ( 767.14 ) mGycm TECHNIQUE: The examination was performed with the intravenous administration of 100ML ml of Isovue 370 contrast material. Post-processing of the angiographic images was performed, with multiplanar reformation and 3D reconstruction. Individualized dose optimization techniques were used for this CT. COMPARISON: AP portable chest on December 26, 2017 FINDINGS: Normal enhancement of the main pulmonary artery and right and left pulmonary arteries. Normal enhancement of the bilateral peripheral pulmonary arteries. There is no demonstrated pulmonary embolism. Mild atherosclerotic changes of the aorta without evidence for aneurysm There is no demonstrated aortic dissection. Heart is enlarged.. There is coronary artery stent present. Normal mediastinum. Normal hilar regions. Normal visualized trachea and bronchi. The lungs are well expanded. There is dense consolidation of the lower lobes bilaterally with air bronchograms. Normal pleura. Normal chest wall structures. Dorsal spine demonstrates moderate spondylosis PEG tube is noted within stomach.. CT/CTA Chest W/WO Contrast IMPRESSION: Dense bilateral lower lobe infiltrates.. No evidence for pulmonary embolus ASHD. No evidence for aortic aneurysm Electronically Signed: Filemon Orona MD at 16:35 EST , Service support , CC: Dominick Denny D.O.; Tio Parker MD Clerk Cashier: Signed CHEST 1 VIEW Observed: 12/26/2017 Status: F Source: JAY (PORTABLE) 2:40 PM [facility] REPOSITORY [facility] Imaging Services [facility] [place] [address] Chest 1 View (Portable) MR#: [id number] Acct: [id number] Name: MANGO MCGARRY Rep #: [id number] : 1960 M 57 From: Akhil Izquierdo MD PCP: Tio Parker MD Status: ADM IN Study: Chest 1 View (Portable) Date of Exam: 12/26/17 Exam# [id number] Ordering Dr: Roscoe Baziz MD STUDY: X-RAY CHEST REASON FOR EXAM: Male, 57 years old. Tracheostomy insertion. TECHNIQUE: Single AP portable view of the chest. COMPARISON: Comparison is made with prior study dated December 23, 2017. FINDINGS: A tracheostomy is in situ. The tip is 5.2 cm proximal to the byron. A right-sided PICC line catheter is in situ. The tip is in the proximal portion of the superior vena cava. Increased markings at the left lung base suggestive of left basilar atelectasis. There is blunting of left costophrenic angle. There is no evidence of pneumothorax. There is borderline cardiomegaly. Normal mediastinum and marta. Normal visualized pulmonary arteries. There is atherosclerotic calcification of the aortic arch with tortuosity. There are diffuse degenerative changes of the visualized thoracic spine. Normal visualized ribs, clavicles, and shoulders. There is no demonstrated abnormality of the visualized soft tissue structures of the upper abdomen. RAD/Chest 1 View (Portable) IMPRESSION: The tip of the tracheostomy is at 5.2 cm proximal to the byron. Alignment left basilar atelectasis with blunting of left costophrenic angle. Electronically Signed: Akhil Izquierdo MD at 15:10 EST Tel [phone], Service support , CC: Roscoe Bazzi MD; Tio Parker MD Clerk Cashier: Signed BEDSIDE GLUCOSE Collected: 12/26/2017 Status: F Source: ANÍBAL 12:17 PM [facility] REPOSITORY TYPE CODE TESTS RESULT OUT OF REFERENCE UNITS RANGE LAB L501.080 70-110 mg/dL High BEDSIDE GLU 136 Result Comment: MANAGEMENT OF PATIENT CARE PER NURSING PROTOCOL Performed By: #### L501.080 #### [place] [facility] Laboratory Point of Care [address] [place] [address] BEDSIDE GLUCOSE Collected: 12/26/2017 Status: F Source: ANÍBAL 5:27 AM [facility] REPOSITORY TYPE CODE TESTS RESULT OUT OF REFERENCE UNITS RANGE LAB L501.080 70-110 mg/dL High BEDSIDE GLU 182 Result Comment: MANAGEMENT OF PATIENT CARE PER NURSING PROTOCOL Performed By: #### L501.080 #### [place] [facility] Laboratory Point of Care [address] [place] [address] BASIC METABOLIC Collected: 12/26/2017 Status: F Source: ANÍBAL PROFILE (BMP) 4:00 AM [facility] REPOSITORY TYPE CODE TESTS RESULT OUT OF RANGE REFERENCE UNITS LAB L501.0100 74-106 mg/dL High GLU 190 Result Comment: Fasting Glucose result greater than or equal to 126 mg/dL suggests DIABETES MELLITUS per A.D.A. criteria. Please note revised GLUCOSE reference range effective 2017. LAB L501.1000 7-18 mg/dL High BUN 42 LAB L501.1100 0.70-1.30 mg/dL Normal CREAT,SERUM 0.83 Result Comment: The validity of the calculated GFR AND GFRAA in patients over 70 years has not been determined. Clinical correlation is essential. LAB L501.1110 >60 mL/min Normal EST GFR 101 Result Comment: Non- GFR Calc LAB L501.1115 >60 mL/min Normal EST GFR - AA 122 Result Comment: GFR Calc LAB L501.1255 ml/min Normal Estimated CRCL 92.71 LAB L501.1300 10-20 RATIO High BUN/CRE 50.7 LAB L501.2200 8.5-10 mg/dL Normal .1 CA 8.9 LAB L501.5300 136-14 mmol/L High 5 NA 151 LAB L501.5600 3.5-5. mmol/L Normal 1 K 4.7 LAB L501.5900 98-107 mmol/L High CL 109 LAB L501.6100 21.0-3 mmol/L High 2.0 CO2 34.0 LAB L501.6200 5-15 Normal GAP 8 Performed By: #### L500.2500 #### [facility] [address] [place], [place], [id number] CBC W/DIFF, AUTOMATED Collected: 12/26/2017 Status: F Source: JAY 4:00 AM [facility] REPOSITORY TYPE CODE TESTS RESULT OUT OF RANGE REFERENCE UNITS LAB L100.1000 4.4-11.0 K/mm3 Normal WBC 8.0 LAB L100.1200 4.6-6.2 M/mm3 Low RBC 4.37 LAB L100.1300 13.0-16.5 g/dl Low HGB 11.9 LAB L100.1400 40-54 % Normal HCT 41.2 LAB L100.1500 80-94 fL High MCV 94.3 LAB L100.1600 27.0-32.0 pg Normal MCH 27.2 LAB L100.1700 32-36 g/gl Low MCHC 28.9 LAB L100.1810 11.6-14.6 % High RDW CV 14.9 LAB L100.1820 35.1-43.9 fl High RDW SD 51.0 LAB L100.1900 150-450 K/mm3 Low PLT 145 LAB L100.2000 6.2-12.0 fl Normal MPV 11.2 LAB L100.2100 47-70 % High NEUT% 83.5 LAB L100.2200 19-41 % Low LY% 12.3 LAB L100.2300 0-10 % Normal MONO% 3.9 LAB L100.2400 0-5 % Normal EO% 0.0 LAB L100.2500 0-1 % Normal BASO% 0.0 LAB L100.2550 0.0-0.9 % Normal IM GRAN % 0.300 Result Comment: IG% - Immature Granulocytes (promyelocytes, myelocytes and metamyelocytes) > 1% indicates that a LEFT SHIFT is Present. LAB L100.2620 2.0-7.7 X10 3/uL Normal Absolute Neut 6.7 LAB L100.2720 0.83-4.51 X10 3/ul Normal Absolute Lymph 0.98 Performed By: #### L100.0100 #### [facility] [address] [place], [place], [address] PROTHROMBIN TIME W/INR Collected: 12/26/2017 Status: F Source: ANÍBAL 4:00 AM [facility] REPOSITORY TYPE CODE TESTS RESULT OUT OF RANGE REFERENCE UNITS LAB L300.4150 11.7-14.9 SECONDS Normal PROTIME 14.8 LAB L300.4200 Normal INR 1.2 Performed By: #### L300.3900 #### [facility] [address] [facility] [id number] BEDSIDE GLUCOSE Collected: 12/26/2017 Status: F Source: ANÍBAL 12:08 AM [facility] REPOSITORY TYPE CODE TESTS RESULT OUT OF REFERENCE UNITS RANGE LAB L501.080 70-110 mg/dL High BEDSIDE GLU 161 Result Comment: MANAGEMENT OF PATIENT CARE PER NURSING PROTOCOL Performed By: #### L501.080 #### [facility] Point of Care [address] [place], [place] [id number] BEDSIDE GLUCOSE Collected: 12/25/2017 Status: F Source: ANÍBAL 9:16 PM [facility] REPOSITORY TYPE CODE TESTS RESULT OUT OF REFERENCE UNITS RANGE LAB L501.080 70-110 mg/dL High BEDSIDE GLU 158 Result Comment: MANAGEMENT OF PATIENT CARE PER NURSING PROTOCOL Performed By: #### L501.080 #### [facility] Point of Care [address] [place], [place] [id number] BEDSIDE GLUCOSE Collected: 12/25/2017 Status: F Source: ANÍBAL 6:15 PM [facility] REPOSITORY TYPE CODE TESTS RESULT OUT OF REFERENCE UNITS RANGE LAB L501.080 70-110 mg/dL High BEDSIDE GLU 182 Result Comment: Dr Maldonado Followed MANAGEMENT OF PATIENT CARE PER NURSING PROTOCOL Performed By: #### L501.080 #### [facility] Point of Care [address] [place], [place] [id number] BEDSIDE GLUCOSE Collected: 12/25/2017 Status: F Source: ANÍBAL 11:48 AM [facility] REPOSITORY TYPE CODE TESTS RESULT OUT OF REFERENCE UNITS RANGE LAB L501.080 70-110 mg/dL High BEDSIDE GLU 137 Result Comment: MANAGEMENT OF PATIENT CARE PER NURSING PROTOCOL Performed By: #### L501.080 #### [facility] Point of Care [address] [place] [address] OPERATIVE REPORT - Observed: 12/25/2017 Status: F Source: ANÍBAL ENDOSCOPY 8:16 AM [facility] REPOSITORY [facility] Medical Records Department [address] [place] [address] Operative Report - Endoscopy MR#: [id number] Acct: [id number] Name: MANGO MCGARRY Rep #: [id number] : 1960 57 From: Robert Paredes MD PCP: Tio Parker MD Status: ADM IN Patient Name: Mango Mcgarry Procedure Date: 12/25/2017 6:48 AM Date of : 1960 Age: 57 Procedure: Upper GI endoscopy Indications: Therapeutic procedure, Place PEG due to aspiration risk, Place PEG because patient requires ventilator support Providers: Robert Paredes MD Medicines: Sedation Required Anesthesia Staff Assistance Patient Profile: This is a 57 year old male. Refer to note in patient chart for documentation of history and physical. asperation pnuemonia Complications: No immediate complications. Estimated blood loss: Minimal. Procedure: Pre-Anesthesia Assessment: - Prior to the procedure, a History and Physical was performed, and patient medications and allergies were reviewed. The patient's tolerance of previous anesthesia was also reviewed. The risks and benefits of the procedure and the sedation options and risks were discussed with the patient. All questions were answered, and informed consent was obtained. Prior Anticoagulants: The patient has taken heparin, last dose was 1 day prior to procedure. ASA Grade Assessment: IV - A patient with severe systemic disease that is a constant threat to life. After reviewing the risks and benefits, the patient was deemed in satisfactory condition to undergo the procedure. After obtaining informed consent, the endoscope was passed under direct vision. Throughout the procedure, the patient's blood pressure, pulse, and oxygen saturations were monitored continuously. The gastroscope was introduced through the mouth, and advanced to the second part of duodenum. The upper GI endoscopy was accomplished without difficulty. The patient tolerated the procedure well. Scope In: 7:05:20 AM Scope Out: 7:12:08 AM Total Procedure Duration Time 0 hours 6 minutes 48 seconds Findings: Food was found in the middle third of the esophagus. Striped mildly erythematous mucosa without bleeding was found on the greater curvature of the stomach. The examined duodenum was normal. Placement of an externally removable PEG with 1 T-fastener was successfully completed. The external bumper was at the 4.0 cm marking on the tube. Estimated blood loss was minimal. Impression: - Food in the middle third of the esophagus. - Erythematous mucosa in the greater curvature. - Normal examined duodenum. - An externally removable PEG placement was successfully completed. - No specimens collected. Recommendation: - Return patient to ICU until patient is stable. - NPO today. - Continue present medications. - Return to my office in 6 weeks. Procedure Code(s): --- Professional --- 27737, Esophagogastroduodenoscopy, flexible, transoral; with directed placement of percutaneous gastrostomy tube CPT copyright 2017 [employer]. All rights reserved. The codes documented in this report are preliminary and upon hcc coders review may be revised to meet current compliance requirements. MD Robert Gallo MD 12/25/2017 8:16:09 AM This report has been signed electronically. Number of Addenda: 0 Note Initiated On: 12/25/2017 6:48 AM 12/25/17815 Date Robert Paredes MD Cosigner Signature: Date (if indicated) CC: Sebastien Weinberg MD; Robert Paredes MD; Dominick Denny D.O.; Juan Manuel Subramanian DO; Roscoe Bazzi MD; Tio Parker MD Date Dictated: 12/25/17647 Date Transcribed: Clerk Cashier: DP Signed BEDSIDE GLUCOSE Collected: 12/25/2017 Status: F Source: ANÍBAL 5:40 AM [facility] REPOSITORY TYPE CODE TESTS RESULT OUT OF REFERENCE UNITS RANGE LAB L501.080 70-110 mg/dL High BEDSIDE GLU 192 Result Comment: MANAGEMENT OF PATIENT CARE PER NURSING PROTOCOL Performed By: #### L501.080 #### [facility] Point of Care [address] [place], [place] [address] CBC W/DIFF, AUTOMATED Collected: 12/25/2017 Status: F Source: ANÍBAL 4:55 AM [facility] REPOSITORY TYPE CODE TESTS RESULT OUT OF RANGE REFERENCE UNITS LAB L100.1000 4.4-11.0 K/mm3 Normal WBC 6.4 LAB L100.1200 4.6-6.2 M/mm3 Low RBC 4.40 LAB L100.1300 13.0-16.5 g/dl Low HGB 12.3 LAB L100.1400 40-54 % Normal HCT 41.5 LAB L100.1500 80-94 fL High MCV 94.3 LAB L100.1600 27.0-32.0 pg Normal MCH 28.0 LAB L100.1700 32-36 g/gl Low MCHC 29.6 LAB L100.1810 11.6-14.6 % High RDW CV 14.7 LAB L100.1820 35.1-43.9 fl High RDW SD 49.1 LAB L100.1900 150-450 K/mm3 Normal PLT 179 LAB L100.2000 6.2-12.0 fl Normal MPV 11.7 LAB L100.2100 47-70 % High NEUT% 81.3 LAB L100.2200 19-41 % Low LY% 13.9 LAB L100.2300 0-10 % Normal MONO% 4.1 LAB L100.2400 0-5 % Normal EO% 0.2 LAB L100.2500 0-1 % Normal BASO% 0.0 LAB L100.2550 0.0-0.9 % Normal IM GRAN % 0.500 Result Comment: IG% - Immature Granulocytes (promyelocytes, myelocytes and metamyelocytes) > 1% indicates that a LEFT SHIFT is Present. LAB L100.2620 2.0-7.7 X10 3/uL Normal Absolute Neut 5.2 LAB L100.2720 0.83-4.51 X10 3/ul Normal Absolute Lymph 0.88 Performed By: #### L100.0100 #### [facility] [address] [place], [address] BASIC METABOLIC Collected: 12/25/2017 Status: F Source: ANÍBAL PROFILE (BMP) 4:55 AM [facility] REPOSITORY TYPE CODE TESTS RESULT OUT OF RANGE REFERENCE UNITS LAB L501.0100 74-106 mg/dL High GLU 202 Result Comment: Glucose result greater than or equal to 200 mg/dL suggests DIABETES MELLITUS per A.D.A. criteria. Please note revised GLUCOSE reference range effective 2017. LAB L501.1000 7-18 mg/dL High BUN 44 LAB L501.1100 0.70-1.30 mg/dL Normal CREAT,SERUM 0.90 Result Comment: The validity of the calculated GFR AND GFRAA in patients over 70 years has not been determined. Clinical correlation is essential. LAB L501.1110 >60 mL/min Normal EST GFR 92 Result Comment: Non- GFR Calc LAB L501.1115 >60 mL/min Normal EST GFR - AA 111 Result Comment: GFR Calc LAB L501.1255 ml/min Normal Estimated CRCL 85.50 LAB L501.1300 10-20 RATIO High BUN/CRE 49.1 LAB L501.2200 8.5-10 mg/dL Normal .1 CA 9.1 LAB L501.5300 136-14 mmol/L High 5 NA 152 LAB L501.5600 3.5-5. mmol/L Normal 1 K 4.8 LAB L501.5900 98-107 mmol/L High CL 110 LAB L501.6100 21.0-3 mmol/L High 2.0 CO2 34.0 LAB L501.6200 5-15 Normal GAP 8 Performed By: #### L500.2500 #### [facility] [address] [place], [place], [address] BEDSIDE GLUCOSE Collected: 12/24/2017 Status: F Source: NAÍBAL 11:40 PM [facility] REPOSITORY TYPE CODE TESTS RESULT OUT OF REFERENCE UNITS RANGE LAB L501.080 70-110 mg/dL High BEDSIDE GLU 193 Result Comment: MANAGEMENT OF PATIENT CARE PER NURSING PROTOCOL Performed By: #### L501.080 #### [facility] Point of Care [address] [place], [place] [address] BEDSIDE GLUCOSE Collected: 12/24/2017 Status: F Source: ANÍBAL 5:16 PM [facility] REPOSITORY TYPE CODE TESTS RESULT OUT OF REFERENCE UNITS RANGE LAB L501.080 70-110 mg/dL High BEDSIDE GLU 244 Result Comment: MANAGEMENT OF PATIENT CARE PER NURSING PROTOCOL Performed By: #### L501.080 #### [facility] Point of Care [address] [place] [address] BEDSIDE GLUCOSE Collected: 12/24/2017 Status: F Source: ANÍBAL 11:31 AM [facility] REPOSITORY TYPE CODE TESTS RESULT OUT OF REFERENCE UNITS RANGE LAB L501.080 70-110 mg/dL High BEDSIDE GLU 230 Result Comment: MANAGEMENT OF PATIENT CARE PER NURSING PROTOCOL Performed By: #### L501.080 #### [facility] Point of Care [address] [facility] [place] [address] CONSULTATION Observed: 12/24/2017 Status: F Source: JAY 10:06 AM [facility] Medical Records Department [address] [place] [address] Consultation 12/24/17 0951 MR#: [id number] Acct: [id number] Name: MANGO MCGARRY Rep #: [id number] : 1960 57 From: Robert Paredes MD PCP: Tio Parker MD Status: ADM IN Y Location: ICU ICU03-1 Problem List (1) Aspiration pneumonia due to food (regurgitated) Status: Acute Qualifiers: Laterality: right Lung location: upper lobe of lung Qualified Code(s): J69.0 - Pneumonitis due to inhalation of food and vomit Reason for Consult Date of Consultation: 12/24/17 History of Present Illness: Patient was admitted through the ED on 12/12/2017 after he had complained in his jail shortness of breath for the past 5 days. The jail call the ED about 3 days ago and wanted to send him into the ED but patient refused when EMS arrived. This morning he had worsening of his shortness of breath and agreed to be brought to the ED. On the way to the ED in the EMS, he went into respiratory arrest was being bagged by EMS upon arrival. On arrival in the ED, his vitals were 98.8 and blood pressure was 126/65 and he was saturating 96% on room air. EKG done in the ED showed sinus rhythm with diffuse T wave inversions and initial troponin was 0.022. Chest x-ray showed cardiomegaly and pulmonary congestion. He was emergently intubated in the ED and admitted to be managed for respiratory arrest due to 2 CHF exacerbation. I was unable to take history from patient does at time of review because he was intubated and sedated and was poorly responsive. Patient now has a 12-day history of being on the ventilation he self extubated and and on upon reintubation was noted to have his tube feeds in his tracheal tube. He will be undergoing a tracheostomy this coming Tuesday and I have been consulted to place a PEG tube in him prior to this. It is difficult to communicate with the patient since he is on a ventilator and is giving propofol for sedation. I have reached out to his power of fabric worker foreman but he has not called me back yet. Dr. Campos has spoken to the power of fabric worker foreman about the plan for the trach and PEG and there is agreement on this. Past Medical History Past Medical History (Chronic Problems): Chronic Problems (Last Updated 12/24/17 @ 08:36 by Juan Manuel Subramanian DO) Pure hypercholesterolemia (Chronic) History of anterolateral myocardial infarction (Chronic 05/03/12) History of cardiac arrest (Chronic 06/22/17) Hypersomnia (Chronic) EMILIA (obstructive sleep apnea) (Chronic) History of cardiac catheterization (Chronic 02/25/16) 05/03/12 @ [place] per [facility]; 02/21/2014 per [facility] @ [facility] (no stents needed); 02/22 17 per [facility] @ [facility] prior to PCI and GISSEL to proximal LAD; 06/28/17 after cardiac arrest, prior to GISSEL of mid LCX Nicotine dependence, cigarettes, uncomplicated (Chronic) Chronic systolic congestive heart failure (Chronic) Presence of stent in coronary artery (Chronic 06/29/17) PCI/stent LAD w/ 4.0 x 32 mm Promus 2012 ; PCI/GISSEL to Prox LAD w/ 4.0 x 20 mm Promus 02/25/16 for instent restenosis; PTCA/GISSEL to LCX 06/29/2017 Atherosclerotic heart disease of [place] coronary artery without angina pectoris (Chronic) PCI/stent LAD w/ 4.0 x 32 mm Promus 2012; PCI/GISSEL to Prox LAD w/ 4.0 x 20 mm Promus 02/25/16 for instent restenosis; PTCA/GISSEL to LCx in June 2017; Asthma-COPD overlap syndrome (Chronic) FEV1 46% (01/11/2017) DM2 (diabetes mellitus, type 2) (Chronic) NSTEMI (non-ST elevated myocardial infarction) (Chronic 12/21/16) 02/20/16 Venous stasis of lower extremity (Chronic) Ischemic cardiomyopathy (Chronic) EF of 35% on Cath in February of 2014; 50% per echo 06/21/2017 Medical History: Medical History (Last Reviewed 12/24/17 @ 09:53 by Robert Paredes MD) Pure hypercholesterolemia (Chronic) E78.00 History of anterolateral myocardial infarction (Chronic) Onset Date: 05/03/12 I25.2 History of cardiac arrest (Chronic) Onset Date: 06/22/17 Z86.74 Hypersomnia (Chronic) G47.10 EMILIA (obstructive sleep apnea) (Chronic) G47.33 Nicotine dependence, cigarettes, uncomplicated (Chronic) F17.210 EMILIA (obstructive sleep apnea) (Suspected) G47.33 Acute respiratory failure with hypoxia and hypercapnia (Acute) J96.01, J96.02 Pneumococcal pneumonia (Acute) J13 Metabolic encephalopathy (Resolved) G93.41 Heart failure with reduced ejection fraction (Inactive) I50.20 Chronic systolic congestive heart failure (Chronic) I50.22 Atherosclerotic heart disease of [place] coronary artery without angina pectoris (Chronic) I25.10 PCI/stent LAD w/ 4.0 x 32 mm Promus 2012; PCI/GISSEL to Prox LAD w/ 4.0 x 20 mm Promus 02/25/16 for instent restenosis; PTCA/GISSEL to LCx in June 2017; Asthma-COPD overlap syndrome (Chronic) J44.9 FEV1 46% (01/11/2017) DM2 (diabetes mellitus, type 2) (Chronic) E11.9 NSTEMI (non-ST elevated myocardial infarction) (Chronic) Onset Date: 12/21/16 I21.4 02/20/16 Venous stasis of lower extremity (Chronic) I87.8 Ischemic cardiomyopathy (Chronic) I25.5 EF of 35% on Cath in February of 2014; 50% per echo 06/21/2017 Hypoxia R09.02 Chest pain (Resolved) R07.9 Respiratory failure, acute (Resolved) J96.00 Hyponatremia (Inactive) E87.1 Allergies adhesive tape Adverse Reaction (Verified 11/10/17 12:17) Rash Home Medications: Ambulatory Orders Medication Instructions Recorded Aspirin E.C. [Ecotrin] 81 mg PO DAILY@0800 12/27/15 Albuterol Aerosols [Ventolin 2.5 mg INHALATION TID 01/17/17 Surgical History: Surgical History (Last Reviewed 12/24/17 @ 09:53 by Robert Paredes MD) History of cardiac catheterization (Chronic) Onset Date: 02/25/16 Z98.890 05/03/12 @ [place] per [facility]; 02/21/2014 per [facility] @ [facility] (no stents needed); 02/23 16 per [facility] @ [facility] prior to PCI and GISSEL to proximal LAD; 06/28/17 after cardiac arrest, prior to GISSEL of mid LCX Presence of stent in coronary artery (Chronic) Onset Date: 06/29/17 Z95.5 PCI/stent LAD w/ 4.0 x 32 mm Promus 2012 ; PCI/GISSEL to Prox LAD w/ 4.0 x 20 mm Promus 02/25/16 for instent restenosis; PTCA/GISSEL to LCX 06/29/2017 Amputated great toe of left foot Z89.412 History of surgery on arm Z98.890 Surgery on left arm for infected muscle Surgical History: no surgical history Psychiatric History: No pertinent psych hx Smoking Status: Current every day smoker Alcohol: None Drugs: None - *Family History Maternal Family History: Family History (Last Reviewed 11/10/17 @ 12:19 by Mirna Patiño) Mother Diabetes Heart disease History Items: No pertinent history, - - Unable to obtain as the patient is intubated and sedated Review of Systems Unable to obtain accurate/complete ROS d/t: Patient is currently intubated and is unable to be communicative. Patient Problems: Active and Suspected Problems (Last Updated 12/24/17 @ 08:36 by Juan Manuel Subramanian DO) Aspiration pneumonia due to food (regurgitated) (Acute) Heart failure with preserved ejection fraction (Acute) GALILEA (acute kidney injury) (Acute) Klebsiella pneumonia (Acute) Acute respiratory failure with hypoxia and hypercapnia (Acute) Pneumococcal pneumonia (Acute) - Physical Exam Abdomen: Bowel Sounds Present, Soft, Non Tender, Obese - Morbidly obese Vital Signs Temp Pulse Resp BP Pulse Ox 100.0 F H 79 19 H 104/56 L 92 12/24/17 09:00 12/24/17 09:00 12/24/17 09:00 12/24/17 09:00 12/24/17 09:00 Oxygen Flow Rate (L/min) 50 Oxygen Delivery Method Mechanical Ventilator Weight: 312 lb 9.848 oz Body Mass Index (BMI) 55.5 Finger Stick Blood Glucose 239 Intake and Output for Last 24 Hours Microbiology Past 72 Hours 12/20/17 05:00 Gram Stain - Final Sputum, Induced/Lukens Respiratory Culture - Final Laboratory Tests Past 24 Hrs WBC 6.3 RBC 4.44 L Hgb 12.2 L Hct 42.4 MCV 95.5 H MCH 27.5 MCHC 28.8 L RDW 14.8 H RDW Differential 51.7 H POC Glucose POC Glucose 269 H 230 H 198 H POC Glucose 227 H 217 H Assessment/Plan All Active Problems (Last Updated 12/24/17 @ 08:36 by Juan Manuel Subramanian DO) Aspiration pneumonia due to food (regurgitated) (Acute) Heart failure with preserved ejection fraction (Acute) GALILEA (acute kidney injury) (Acute) Klebsiella pneumonia (Acute) Acute respiratory failure with hypoxia and hypercapnia (Acute) Pneumococcal pneumonia (Acute) Metabolic encephalopathy (Resolved) Chest pain (Resolved) Respiratory failure, acute (Resolved) At this point I agree with the placement of a PEG tube as well as his tracheostomy. In order for him to get better he will need to be in positive nitrogen balance with him failing to be able to protect his airway I think the best thing to do is to place the PEG tube so that we can give him adequate amount of nutrition for at least 6 weeks and if at that time he is swallowing better and and passes a cookie swallow test then we can remove it but at the present time I think the best thing to do is to be able to give him adequate amounts of nutrition. I have communicated this with the patient I am unclear whether or not he completely understands this I am waiting to discuss this with his power of fabric worker foreman so that we can proceed. 12/24/17 1006 <Electronically signed by Robert Paredes MD> Date Robert Paredes MD Cosigner Signature (if applicable): Date CC: Sebastien Weinberg MD; Robert Paredes MD; Dominick Denny D.O.; Roscoe Bazzi MD; Tio Parker MD Signed BEDSIDE GLUCOSE Collected: 12/24/2017 Status: F Source: JAY 5:55 AM [facility] REPOSITORY TYPE CODE TESTS RESULT OUT OF REFERENCE UNITS RANGE LAB L501.080 70-110 mg/dL High BEDSIDE GLU 269 Result Comment: MANAGEMENT OF PATIENT CARE PER NURSING PROTOCOL Performed By: #### L501.080 #### [facility] [place] [address] [place] [address] CBC W/DIFF, AUTOMATED Collected: 12/24/2017 Status: F Source: JAY 4:22 AM [facility] REPOSITORY TYPE CODE TESTS RESULT OUT OF RANGE REFERENCE UNITS LAB L100.1000 4.4-11.0 K/mm3 Normal WBC 6.3 LAB L100.1200 4.6-6.2 M/mm3 Low RBC 4.44 LAB L100.1300 13.0-16.5 g/dl Low HGB 12.2 LAB L100.1400 40-54 % Normal HCT 42.4 LAB L100.1500 80-94 fL High MCV 95.5 LAB L100.1600 27.0-32.0 pg Normal MCH 27.5 LAB L100.1700 32-36 g/gl Low MCHC 28.8 LAB L100.1810 11.6-14.6 % High RDW CV 14.8 LAB L100.1820 35.1-43.9 fl High RDW SD 51.7 LAB L100.1900 150-450 K/mm3 Normal PLT 175 LAB L100.2000 6.2-12.0 fl Normal MPV 10.8 LAB L100.2100 47-70 % High NEUT% 83.9 LAB L100.2200 19-41 % Low LY% 12.3 LAB L100.2300 0-10 % Normal MONO% 3.6 LAB L100.2400 0-5 % Normal EO% 0.0 LAB L100.2500 0-1 % Normal BASO% 0.0 LAB L100.2550 0.0-0.9 % Normal IM GRAN % 0.200 Result Comment: IG% - Immature Granulocytes (promyelocytes, myelocytes and metamyelocytes) > 1% indicates that a LEFT SHIFT is Present. LAB L100.2620 2.0-7.7 X10 3/uL Normal Absolute Neut 5.3 LAB L100.2720 0.83-4.51 X10 3/ul Low Absolute Lymph 0.78 Performed By: #### L100.0100 #### [facility] [address] [place], [place], [address] COMPREHENSIVE METABOLIC Collected: 12/24/2017 Status: F Source: [facility] 4:22 AM [facility] REPOSITORY TYPE CODE TESTS RESULT OUT OF RANGE REFERENCE UNITS LAB L501.0100 74-106 mg/dL High GLU 308 Result Comment: Glucose result greater than or equal to 200 mg/dL suggests DIABETES MELLITUS per A.D.A. criteria. Please note revised GLUCOSE reference range effective 2017. LAB L501.1000 7-18 mg/dL High BUN 49 LAB L501.1100 0.70-1.30 mg/dL Normal CREAT,SERUM 1.05 Result Comment: The validity of the calculated GFR AND GFRAA in patients over 70 years has not been determined. Clinical correlation is essential. LAB L501.1110 >60 mL/min Normal EST GFR 77 Result Comment: Non- GFR Calc LAB L501.1115 >60 mL/min Normal EST GFR - AA 93 Result Comment: GFR Calc LAB L501.1255 ml/min Normal Estimated CRCL 73.29 LAB L501.1300 10-20 RATIO High BUN/CRE 46.7 LAB L501.1500 6.4-8. g/dL Normal 2 T PROT 7.0 LAB L501.1800 3.2-5. g/dL Low 0 ALB 2.8 LAB L501.1950 2.2-4. g/dL Normal 2 GLOB 4.2 LAB L501.2000 0.9-2. RATIO Low 4 A/G 0.7 LAB L501.2200 8.5-10 mg/dL Normal .1 CA 8.9 LAB L501.4100 15-37 U/L Normal AST 22 LAB L501.4305 45-117 U/L Normal ALK P 56 LAB L501.4405 16-61 U/L Normal ALT 32 LAB L501.4600 0.20-1 mg/dL Normal .00 T BILI 0.40 LAB L501.5300 136-14 mmol/L High 5 NA 151 LAB L501.5600 3.5-5. mmol/L High 1 K 5.2 LAB L501.5900 98-107 mmol/L High CL 111 LAB L501.6100 21.0-3 mmol/L High 2.0 CO2 34.0 LAB L501.6200 5-15 Normal GAP 6 Performed By: #### L500.4050 #### [facility] [address] [facility] [facility] [address] PARTIAL THROMBOPLAST Collected: 12/24/2017 Status: F Source: JAY TIME 4:22 AM [facility] REPOSITORY TYPE CODE TESTS RESULT OUT OF REFERENCE UNITS RANGE LAB L300.4310 24.1-36.2 Seconds High PTT 59.2 Performed By: #### L300.4310 #### [facility] [address] [facility] [address] BEDSIDE GLUCOSE Collected: 12/24/2017 Status: F Source: ANÍBAL 12:13 AM [facility] REPOSITORY TYPE CODE TESTS RESULT OUT OF REFERENCE UNITS RANGE LAB L501.080 70-110 mg/dL High BEDSIDE GLU 230 Result Comment: MANAGEMENT OF PATIENT CARE PER NURSING PROTOCOL Performed By: #### L501.080 #### [facility] Point of Care [address] [place] [address] BEDSIDE GLUCOSE Collected: 12/23/2017 Status: F Source: ANÍBAL 9:41 PM [facility] REPOSITORY TYPE CODE TESTS RESULT OUT OF REFERENCE UNITS RANGE LAB L501.080 70-110 mg/dL High BEDSIDE GLU 198 Result Comment: MANAGEMENT OF PATIENT CARE PER NURSING PROTOCOL Performed By: #### L501.080 #### [facility] Point of Care [address] [place] [address] BEDSIDE GLUCOSE Collected: 12/23/2017 Status: F Source: ANÍBAL 6:20 PM [facility] REPOSITORY TYPE CODE TESTS RESULT OUT OF REFERENCE UNITS RANGE LAB L501.080 70-110 mg/dL High BEDSIDE GLU 227 Result Comment: Dr Orders Followed MANAGEMENT OF PATIENT CARE PER NURSING PROTOCOL Performed By: #### L501.080 #### [facility] Point of Care [address] [place] [address] BEDSIDE GLUCOSE Collected: 12/23/2017 Status: F Source: ANÍBAL 12:44 PM [facility] REPOSITORY TYPE CODE TESTS RESULT OUT OF REFERENCE UNITS RANGE LAB L501.080 70-110 mg/dL High BEDSIDE GLU 217 Result Comment: Orders Followed MANAGEMENT OF PATIENT CARE PER NURSING PROTOCOL Performed By: #### L501.080 #### [facility] Point of Care [address] [place], [place] [address] Observed: 12/23/2017 Status: F Source: ANÍBAL CULTURE, BLOOD (WB) 8:50 AM [facility] REPOSITORY Has pt arrived? Y BC No growth in 5 days. Performed By: #### M200.1000 #### [facility] [address] [place], [place], [address] Observed: 12/23/2017 Status: F Source: ANÍBAL CULTURE, BLOOD (WB) 8:40 AM [facility] REPOSITORY Has pt arrived? Y BC No growth in 5 days. Performed By: #### M200.1000 #### [facility] [address] [place], [place], [address] URINALYSIS, COMPLETE Collected: 12/23/2017 Status: F Source: ANÍBAL 8:30 AM [facility] REPOSITORY Order Comment: How was Urine Obtained? D[employer] MILL OPERATOR TO SPECIFY TYPE CODE TESTS RESULT OUT OF RANGE REFERENCE UNITS LAB L400.3000 Yellow COLOR Normal Yellow LAB L400.3050 Clear Normal CLARITY Sl. Cloudy LAB L400.3200 Normal mg/dl Normal GLUCOSE, UR Normal LAB L400.3300 Negative mg/dL Normal BILIRUBIN URINE Negative LAB L400.3400 Negative mg/dl Normal KETONE UR Negative LAB L400.3465 1.002-1.030 Normal SP.GR. DIPSTX 1.015 LAB L400.3550 5.0 - 8.0 pH UR Normal 6.0 LAB L400.3600 Negative mg/dl PROT Normal DIPSTX Negative LAB L400.3700 Normal mg/dl Normal UROBILI Normal LAB L400.3750 Negative Normal NITRITE UR Negative LAB L400.3780 Negative /ul Normal OCCULT BLOOD-UR Negative LAB L400.3800 Negative /ul High LEUK 25 ESTERASE LAB L400.4050 0-5 /hpf WBC Normal 0-5 SEEN LAB L400.4100 0-5 /hpf 0 Normal RBC-UA SEEN LAB L400.4150 0-5 /hpf SQUAM 0 Normal EPI SEEN LAB L400.4300 None Seen /hpf Normal BACTERIA RARE LAB L400.4350 <or=2+ /hpf 0 Normal MUCUS, URINE SEEN Performed By: #### L400.0001 #### [facility] [address] [facility] [address] Observed: 12/23/2017 Status: F Source: JAY CULTURE, URINE 8:30 AM [facility] Urine Culture ORGANISM 1: Yeast, not Audra albicans [place] Count >100,000 Performed By: #### M100.0650 #### [facility] [address] [facility] [address] BEDSIDE GLUCOSE Collected: 12/23/2017 Status: F Source: JAY 5:58 AM [facility] REPOSITORY TYPE CODE TESTS RESULT OUT OF REFERENCE UNITS RANGE LAB L501.080 70-110 mg/dL High BEDSIDE GLU 278 Result Comment: MANAGEMENT OF PATIENT CARE PER NURSING PROTOCOL Performed By: #### L501.080 #### [facility] Point of Care [address] [place] [address] CHEST 1 VIEW Observed: 12/23/2017 Status: F Source: ANÍBAL (PORTABLE) 4:29 AM [facility] REPOSITORY [facility] Imaging Services [address] [place] [address] Chest 1 View (Portable) MR#: [id number] Acct: [id number] Name: MANGO MCGARRY Rep #: [id number] : 1960 M 57 From: Katya Tsang MD PCP: Tio Parker MD Status: ADM IN Study: Chest 1 View (Portable) Date of Exam: 12/23/17 Exam# [id number] Ordering Dr: Jeffrey Campos MD STUDY: X-RAY CHEST REASON FOR EXAM: Male, 57 years old. Fever. TECHNIQUE: Single AP portable view of the chest. COMPARISON: December 22, 2017. FINDINGS: Patient is intubated. The tip of endotracheal tube is at the aortic arch. Enteric tube is present with the distal and below the inferior edge of the image. The lungs are underexpanded. There are prominent bronchovascular markings. There is left basilar airspace consolidation and atelectasis. There is also heterogeneous right basilar airspace disease. There may be right upper lobe subsegmental atelectasis. There are prominent bronchovascular markings in both lungs. There is pleural fibrotic thickening of the pulmonary lung apices. There is mild cardiac enlargement. Normal mediastinum and marta. There is prominence of the pulmonary hilar arteries without peripheral pulmonary vascular congestion. There is atherosclerotic calcification of the aortic arch with tortuosity. There are diffuse degenerative changes of the visualized thoracic spine. There are degenerative changes at both shoulders. There is no demonstrated abnormality of the visualized soft tissue structures of the upper abdomen. RAD/Chest 1 View (Portable) IMPRESSION: 1. Bilateral basilar airspace consolidation and atelectasis. 2. Right upper lobe subsegmental atelectasis. Electronically Signed: Katya Tsang MD at 8:46 EST , Service support , CC: Jeffrey Campos MD; Tio Parker MD Clerk Cashier: Signed BASIC METABOLIC Collected: 12/23/2017 Status: F Source: ANÍBAL PROFILE (BMP) 4:10 AM [facility] REPOSITORY TYPE CODE TESTS RESULT OUT OF RANGE REFERENCE UNITS LAB L501.0100 74-106 mg/dL High GLU 289 Result Comment: Glucose result greater than or equal to 200 mg/dL suggests DIABETES MELLITUS per A.D.A. criteria. Please note revised GLUCOSE reference range effective 2017. LAB L501.1000 7-18 mg/dL High BUN 63 LAB L501.1100 0.70-1.30 mg/dL Normal CREAT,SERUM 1.03 Result Comment: The validity of the calculated GFR AND GFRAA in patients over 70 years has not been determined. Clinical correlation is essential. LAB L501.1110 >60 mL/min Normal EST GFR 78 Result Comment: Non- GFR Calc LAB L501.1115 >60 mL/min Normal EST GFR - AA 95 Result Comment: GFR Calc LAB L501.1255 ml/min Normal Estimated CRCL 74.71 LAB L501.1300 10-20 RATIO High BUN/CRE 61.2 LAB L501.2200 8.5-10 mg/dL Normal .1 CA 9.1 LAB L501.5300 136-14 mmol/L High 5 NA 152 LAB L501.5600 3.5-5. mmol/L Normal 1 K 4.7 LAB L501.5900 98-107 mmol/L High CL 111 LAB L501.6100 21.0-3 mmol/L High 2.0 CO2 34.0 LAB L501.6200 5-15 Normal GAP 7 Performed By: #### L500.2500 #### [facility] [address] [place], [place] [address], [address] CBC W/DIFF, AUTOMATED Collected: 12/23/2017 Status: F Source: ANÍBAL 4:10 AM [facility] REPOSITORY TYPE CODE TESTS RESULT OUT OF RANGE REFERENCE UNITS LAB L100.1000 4.4-11.0 K/mm3 Normal WBC 7.4 LAB L100.1200 4.6-6.2 M/mm3 Low RBC 4.58 LAB L100.1300 13.0-16.5 g/dl Low HGB 12.7 LAB L100.1400 40-54 % Normal HCT 43.6 LAB L100.1500 80-94 fL High MCV 95.2 LAB L100.1600 27.0-32.0 pg Normal MCH 27.7 LAB L100.1700 32-36 g/gl Low MCHC 29.1 LAB L100.1810 11.6-14.6 % High RDW CV 14.9 LAB L100.1820 35.1-43.9 fl High RDW SD 50.4 LAB L100.1900 150-450 K/mm3 Normal PLT 209 LAB L100.2000 6.2-12.0 fl Normal MPV 11.5 LAB L100.2100 47-70 % High NEUT% 85.8 LAB L100.2200 19-41 % Low LY% 9.9 LAB L100.2300 0-10 % Normal MONO% 3.7 LAB L100.2400 0-5 % Normal EO% 0.1 LAB L100.2500 0-1 % Normal BASO% 0.0 LAB L100.2550 0.0-0.9 % Normal IM GRAN % 0.500 Result Comment: IG% - Immature Granulocytes (promyelocytes, myelocytes and metamyelocytes) > 1% indicates that a LEFT SHIFT is Present. LAB L100.2620 2.0-7.7 X10 3/uL Normal Absolute Neut 6.3 LAB L100.2720 0.83-4.51 X10 3/ul Low Absolute Lymph 0.73 Performed By: #### L100.0100 #### [facility] [place], [place], [address] PARTIAL THROMBOPLAST Collected: 12/23/2017 Status: F Source: JAY TIME 4:10 AM [facility] REPOSITORY TYPE CODE TESTS RESULT OUT OF REFERENCE UNITS RANGE LAB L300.4310 24.1-36.2 Seconds High PTT 68.8 Performed By: #### L300.4310 #### [facility] [address] [place], [place], [address] BEDSIDE GLUCOSE Collected: 12/22/2017 Status: F Source: ANÍBAL 11:59 PM [facility] REPOSITORY TYPE CODE TESTS RESULT OUT OF REFERENCE UNITS RANGE LAB L501.080 70-110 mg/dL High BEDSIDE GLU 167 Result Comment: MANAGEMENT OF PATIENT CARE PER NURSING PROTOCOL Performed By: #### L501.080 #### [facility] Point of Care [address] [place] [address] PARTIAL THROMBOPLAST Collected: 12/22/2017 Status: F Source: ANÍBAL TIME 11:40 PM [facility] REPOS[facility] TYPE CODE TESTS RESULT OUT OF REFERENCE UNITS RANGE LAB L300.4310 24.1-36.2 Seconds High PTT 69.6 Performed By: #### L300.4310 #### [facility] [address] [place], [address] ABDOMEN SINGLE VIEW Observed: 12/22/2017 Status: F Source: ANÍBAL (PORTABLE) 7:00 PM [facility] REPOSITORY [facility] Imaging Services [address] [place] [address] Abdomen Single View (Portable) MR#: [id number] Acct: [id number] Name: MANGO MCGARRY Rep #: [id number] : 1960 M 57 From: Filemon Orona MD PCP: Tio Parker MD Status: ADM IN Study: Abdomen Single View (Portable) Date of Exam: 12/22/17 Exam# [id number] Ordering Dr: Juan Manuel Subramanian DO STUDY: X-RAY - ABDOMEN/PELVIS REASON FOR EXAM: Male, 57 years old. Reinsertion of orogastric tube TECHNIQUE: KUB COMPARISON: None. FINDINGS: Normal visualized lung bases. There is an unremarkable bowel gas pattern. There is no demonstrated free abdominal air. The visualized liver, spleen and kidneys are grossly normal in size and morphology. Orogastric tube has been placed with tip in the gastric body Normal soft tissue structures. Normal visualized osseous structures. RAD/Abdomen Single View (Portable) IMPRESSION: Orogastric tube placement with tip in gastric body Electronically Signed: Filemon Orona MD at 23:43 EST , Service support , CC: Juan Manuel Subramanian DO; Tio Parker MD Clerk Cashier: Signed CHEST 1 VIEW Observed: 12/22/2017 Status: F Source: JAY (PORTABLE) 6:31 PM [facility] REPOSITORY [facility] Imaging Services [address] [place] [address] Chest 1 View (Portable) MR#: [id number] Acct: [id number] Name: MANGO MCGARRY Rep #: [id number] : 1960 M 57 From: Janessa Combs MD PCP: Tio Parker MD Status: ADM IN Study: Chest 1 View (Portable) Date of Exam: 12/22/17 Exam# [id number] Ordering Dr: Nadege Chao MD STUDY: X-RAY CHEST REASON FOR EXAM: Male, 57 years old. Endotracheal tube placement. TECHNIQUE: Single AP portable view of the chest. COMPARISON: Prior portable chest of December 22, 2017 at 12:20 PM. FINDINGS: The endotracheal tube ends 4 cm above the byron. The enteric tube enters the upper abdomen and is well below the gastroesophageal junction. The lung vences are moderately well expanded. 1 transverse plate like area of consolidation or atelectasis across the left lung base unchanged from prior exam. Borderline cardiomegaly. Normal mediastinum and marta. Normal visualized pulmonary arteries. Normal visualized aortic arch and descending thoracic aorta. There are diffuse degenerative changes of the visualized thoracic spine. Normal visualized ribs, clavicles, and shoulders. There is no demonstrated abnormality of the visualized soft tissue structures of the upper abdomen. RAD/Chest 1 View (Portable) IMPRESSION: Endotracheal tube ends 4 cm above the byron. Enteric tube is well below the gastroesophageal junction. Stable lung findings with 1 broad platelike area of atelectasis or infiltrate across the left lung base. Electronically Signed: Janessa Combs MD at 22:21 EST , Service support , CC: Nadege Chao MD; Tio Parker MD Clerk Cashier: Signed BEDSIDE GLUCOSE Collected: 12/22/2017 Status: F Source: ANÍBAL 5:15 PM [facility] REPOSITORY TYPE CODE TESTS RESULT OUT OF REFERENCE UNITS RANGE LAB L501.080 70-110 mg/dL High BEDSIDE GLU 215 Result Comment: Dr Orders Followed MANAGEMENT OF PATIENT CARE PER NURSING PROTOCOL Performed By: #### L501.080 #### [facility] Point of Care [address] [place] [address] PARTIAL THROMBOPLAST Collected: 12/22/2017 Status: F Source: ANÍBAL TIME 5:15 PM [facility] REPOSITORY TYPE CODE TESTS RESULT OUT OF REFERENCE UNITS RANGE LAB L300.4310 24.1-36.2 Seconds High PTT 75.1 Performed By: #### L300.4310 #### [facility] [address] [place], [address] BEDSIDE GLUCOSE Collected: 12/22/2017 Status: F Source: ANÍBAL 1:11 PM [facility] REPOSITORY TYPE CODE TESTS RESULT OUT OF REFERENCE UNITS RANGE LAB L501.080 70-110 mg/dL High BEDSIDE GLU 268 Result Comment: MANAGEMENT OF PATIENT CARE PER NURSING PROTOCOL Performed By: #### L501.080 #### [facility] Point of Care [address] [place] [address] CHEST 1 VIEW Observed: 12/22/2017 Status: F Source: ANÍBAL (PORTABLE) 11:03 AM [facility] REPOSITORY [facility] Imaging Services [address] [place] [address] Chest 1 View (Portable) MR#: [id number] Acct: [id number] Name: MANGO MCGARRY [place] Rep #: [id number] : 1960 M 57 From: Tone Pretty MD PCP: Tio Parker MD Status: ADM IN Study: Chest 1 View (Portable) Date of Exam: 12/22/17 Exam# [id number] Ordering Dr: Jeffrey Campos MD STUDY: X-RAY CHEST REASON FOR EXAM: Male, 57 years old. Line and OG tube placement. TECHNIQUE: AP portable upright view of the chest on 3 films. COMPARISON: Portable AP upright chest x-ray 2 0542 hours FINDINGS: Endotracheal tube again noted, its tip 5.5 cm above the byron. Nasogastric tube passes beneath the diaphragm, its tip outside the [id number]. No central venous catheter is identified. There is persistent patchy density of probable atelectasis in the left lung base. Atelectasis on the right is improved. There is no demonstrated pleural abnormality. There is borderline cardiomegaly. Normal mediastinum and marta. Normal visualized pulmonary arteries. Normal visualized aortic arch and descending thoracic aorta. There are stable multilevel degenerative changes of the visualized thoracic spine. Normal visualized ribs, clavicles, and shoulders. There is no demonstrated abnormality of the visualized soft tissue structures of the upper abdomen. RAD/Chest 1 View (Portable) IMPRESSION: 1. Nasogastric tube passes beneath the diaphragm, its tip outside the [id number]. 2. Endotracheal tube unchanged. 3. Improved atelectasis in the right base. Atelectasis on the left is unchanged. 4. Borderline cardiac enlargement. No CHF. Electronically Signed: Brayan Pretty MD at 12:14 EST , Service support , CC: Jeffrey Campos MD; Tio Parker MD Clerk Cashier: Signed PARTIAL THROMBOPLAST Collected: 12/22/2017 Status: F Source: JAY TIME 10:15 AM [facility] REPOSITORY TYPE CODE TESTS RESULT OUT OF REFERENCE UNITS RANGE LAB L300.4310 24.1-36.2 Seconds High PTT 88.6 Performed By: #### L300.4310 #### [facility] [address] [place], [place], [address] BEDSIDE GLUCOSE Collected: 12/22/2017 Status: F Source: ANÍBAL 5:45 AM [facility] REPOSITORY TYPE CODE TESTS RESULT OUT OF REFERENCE UNITS RANGE LAB L501.080 70-110 mg/dL High BEDSIDE GLU 234 Result Comment: MANAGEMENT OF PATIENT CARE PER NURSING PROTOCOL Performed By: #### L501.080 #### [facility] [address] [place], [place] [address] CBC W/DIFF, AUTOMATED Collected: 12/22/2017 Status: F Source: ANÍBAL 4:00 AM [facility] REPOSITORY TYPE CODE TESTS RESULT OUT OF RANGE REFERENCE UNITS LAB L100.1000 4.4-11.0 K/mm3 Normal WBC 7.7 LAB L100.1200 4.6-6.2 M/mm3 Low RBC 4.52 LAB L100.1300 13.0-16.5 g/dl Low HGB 12.3 LAB L100.1400 40-54 % Normal HCT 42.3 LAB L100.1500 80-94 fL Normal MCV 93.6 LAB L100.1600 27.0-32.0 pg Normal MCH 27.2 LAB L100.1700 32-36 g/gl Low MCHC 29.1 LAB L100.1810 11.6-14.6 % High RDW CV 14.9 LAB L100.1820 35.1-43.9 fl High RDW SD 49.3 LAB L100.1900 150-450 K/mm3 Normal PLT 244 LAB L100.2000 6.2-12.0 fl Normal MPV 10.8 LAB L100.2100 47-70 % High NEUT% 85.6 LAB L100.2200 19-41 % Low LY% 9.6 LAB L100.2300 0-10 % Normal MONO% 4.4 LAB L100.2400 0-5 % Normal EO% 0.0 LAB L100.2500 0-1 % Normal BASO% 0.0 LAB L100.2550 0.0-0.9 % Normal IM GRAN % 0.400 Result Comment: IG% - Immature Granulocytes (promyelocytes, myelocytes and metamyelocytes) > 1% indicates that a LEFT SHIFT is Present. LAB L100.2620 2.0-7.7 X10 3/uL Normal Absolute Neut 6.6 LAB L100.2720 0.83-4.51 X10 3/ul Low Absolute Lymph 0.74 Performed By: #### L100.0100 #### [facility] [address] [place], [place], [address] PARTIAL THROMBOPLAST Collected: 12/22/2017 Status: F Source: ANÍBLA TIME 4:00 AM [facility] REPOSITORY TYPE CODE TESTS RESULT OUT OF REFERENCE UNITS RANGE LAB L300.4310 24.1-36.2 Seconds High PTT 78.0 Performed By: #### L300.4310 #### [facility] [address] [place], [address] BASIC METABOLIC Collected: 12/22/2017 Status: F Source: ANÍBAL PROFILE (BMP) 4:00 AM [facility] REPOSITORY TYPE CODE TESTS RESULT OUT OF RANGE REFERENCE UNITS LAB L501.0100 74-106 mg/dL High GLU 274 Result Comment: Glucose result greater than or equal to 200 mg/dL suggests DIABETES MELLITUS per A.D.A. criteria. Please note revised GLUCOSE reference range effective 2017. LAB L501.1000 7-18 mg/dL High BUN 86 LAB L501.1100 0.70-1.30 mg/dL Normal CREAT,SERUM 1.21 Result Comment: The validity of the calculated GFR AND GFRAA in patients over 70 years has not been determined. Clinical correlation is essential. LAB L501.1110 >60 mL/min Normal EST GFR 65 Result Comment: Non- GFR Calc LAB L501.1115 >60 mL/min Normal EST GFR - AA 79 Result Comment: GFR Calc LAB L501.1255 ml/min Normal Estimated CRCL 63.60 LAB L501.1300 10-20 RATIO High BUN/CRE 71.1 LAB L501.2200 8.5-10 mg/dL Normal .1 CA 9.3 LAB L501.5300 136-14 mmol/L High 5 NA 151 LAB L501.5600 3.5-5. mmol/L Normal 1 K 4.1 LAB L501.5900 98-107 mmol/L Normal CL 107 LAB L501.6100 21.0-3 mmol/L High 2.0 CO2 36.0 LAB L501.6200 5-15 Normal GAP 8 Performed By: #### L500.2500 #### [facility] [address] [place], [address] CHEST 1 VIEW Observed: 12/22/2017 Status: F Source: JAY (PORTABLE) 12:00 AM [facility] REPOSITORY [facility] Imaging Services [address] [place] [address] Chest 1 View (Portable) MR#: [id number] Acct: [id number] Name: MANGO MCGARRY Rep #: [id number] : 1960 M 57 From: Akhil Izquierdo MD PCP: Tio Parker MD Status: ADM IN Study: Chest 1 View (Portable) Date of Exam: 12/22/17 Exam# [id number] Ordering Dr: Jeffrey Campos MD STUDY: X-RAY CHEST REASON FOR EXAM: Male, 57 years old. Shortness of breath. Intubation. TECHNIQUE: Single AP portable view of the chest. COMPARISON: Comparison is made with prior study dated December 21, 2017. FINDINGS: An endotracheal tube is in situ. The tip is at 5 cm proximal to the byron. EKG electrodes are seen. Increased markings at the lung bases worse at the left lung base suggestive of left basilar atelectasis and/or infiltrate. There is blunting of the left costophrenic angle. Minimal increased markings also seen in the right upper lobe. There is mild cardiac enlargement. Normal mediastinum and marta. Normal visualized pulmonary arteries. Normal visualized aortic arch and descending thoracic aorta. There are diffuse degenerative changes of the visualized thoracic spine. Normal visualized ribs, clavicles, and shoulders. There is no demonstrated abnormality of the visualized soft tissue structures of the upper abdomen. RAD/Chest 1 View (Portable) IMPRESSION: Increased markings at the lung bases more prominent at the left lung base with blunting of left costophrenic angle. Mild increased markings in the right upper lobe. Follow-up is recommended. The tip of the endotracheal tube is at 5 cm proximal to the byron. Electronically Signed: Akhil Izquierdo MD at 9:46 EST Tel [phone], Service support , CC: Jeffrey Campos MD; Tio Parker MD Clerk Cashier: Signed BEDSIDE GLUCOSE Collected: 12/21/2017 Status: F Source: ANÍBAL 11:35 PM [facility] REPOSITORY TYPE CODE TESTS RESULT OUT OF REFERENCE UNITS RANGE LAB L501.080 70-110 mg/dL High BEDSIDE GLU 234 Result Comment: MANAGEMENT OF PATIENT CARE PER NURSING PROTOCOL Performed By: #### L501.080 #### [facility] Point of Care [address] [place] [address] PARTIAL THROMBOPLAST Collected: 12/21/2017 Status: F Source: ANÍBAL TIME 10:25 PM [facility] REPOSITORY TYPE CODE TESTS RESULT OUT OF REFERENCE UNITS RANGE LAB L300.4310 24.1-36.2 Seconds High alert PTT 93.0 Result Comment: CRITICAL VALUE VERIFIED. CALLED TO KARIME JACOB IN ICU 12/21/17 2246 Iris Clark. RESULTS READ BACK BY SAME . Performed By: #### L300.4310 #### [facility] [address] [place], [address] BEDSIDE GLUCOSE Collected: 12/21/2017 Status: F Source: ANÍBAL 9:42 PM [facility] REPOSITORY TYPE CODE TESTS RESULT OUT OF REFERENCE UNITS RANGE LAB L501.080 70-110 mg/dL High BEDSIDE GLU 239 Result Comment: MANAGEMENT OF PATIENT CARE PER NURSING PROTOCOL Performed By: #### L501.080 #### [facility] Point of Care [address] [place] [address] BEDSIDE GLUCOSE Collected: 12/21/2017 Status: F Source: ANÍBAL 5:38 PM [facility] REPOSITORY TYPE CODE TESTS RESULT OUT OF REFERENCE UNITS RANGE LAB L501.080 70-110 mg/dL High BEDSIDE GLU 252 Result Comment: MANAGEMENT OF PATIENT CARE PER NURSING PROTOCOL Performed By: #### L501.080 #### [facility] Point of Care [address] [place] [address] PARTIAL THROMBOPLAST Collected: 12/21/2017 Status: F Source: ANÍBAL TIME 4:25 PM [facility] REPOSITORY TYPE CODE TESTS RESULT OUT OF REFERENCE UNITS RANGE LAB L300.4310 24.1-36.2 Seconds High PTT 68.8 Performed By: #### L300.4310 #### [facility] [address] [place], [address] CHEST 1 VIEW Observed: 12/21/2017 Status: F Source: ANÍBAL (PORTABLE) 3:03 PM [facility] REPOSITORY [facility] Imaging Services [address] [place] [address] Chest 1 View (Portable) MR#: [id number] Acct: [id number] Name: MANGO MCGARRY Rep #: [id number] : 1960 M 57 From: Akhil Izquierdo MD PCP: Tio Parker MD Status: ADM IN Study: Chest 1 View (Portable) Date of Exam: 12/21/17 Exam# [id number] Ordering Dr: Jeffrey Campos MD STUDY: X-RAY CHEST REASON FOR EXAM: Male, 57 years old. Oral gastric tube placement. TECHNIQUE: Single AP portable view of the chest. COMPARISON: Comparison is made with prior examination done earlier today. FINDINGS: An endotracheal tube is in situ. The tip is at 3.8 cm proximal to the byron. An orogastric tube is seen. The tip appears to be in the distal esophagus. The remainder of examination is unchanged. RAD/Chest 1 View (Portable) IMPRESSION: Limited examination. The tip of the orogastric tube appears to be in the distal portion of the esophagus. Electronically Signed: Akhil Izquierdo MD at 15:49 EST Tel [phone], Service support , CC: Jeffrey Campos MD; Tio Parker MD Clerk Cashier: Signed CHEST 1 VIEW Observed: 12/21/2017 Status: F Source: ANÍBAL (PORTABLE) 1:53 PM [facility] REPOSITORY [facility] Imaging Services [address] [place] [address] Chest 1 View (Portable) MR#: [id number] Acct: [id number] Name: MANGO MCGARRY Rep #: [id number] : 1960 M 57 From: Tone Pretty MD PCP: Tio Parker MD Status: ADM IN Study: Chest 1 View (Portable) Date of Exam: 12/21/17 Exam# [id number] Ordering Dr: Jeffrey Campos MD STUDY: X-RAY CHEST REASON FOR EXAM: Male, 57 years old. Endotracheal tube placement. TECHNIQUE: Single AP portable semierect view of the chest. COMPARISON: Portable AP upright chest x-ray December 20, 2017. FINDINGS: Tip of the endotracheal tube is at the thoracic inlet, 5.5 cm above the byron. There is stable platelike atelectasis in the left lung base. Mild subsegmental crowding in the right base and right suprahilar region. Evolving infection not excluded. There is no demonstrated pleural abnormality. There is a little borderline to mild cardiac enlargement. Normal mediastinum and marta. Normal visualized pulmonary arteries. Normal visualized aortic arch and descending thoracic aorta. There are stable degenerative changes of the visualized lower thoracic spine. Normal visualized ribs, clavicles, and shoulders. There is no demonstrated abnormality of the visualized soft tissue structures of the upper abdomen. RAD/Chest 1 View (Portable) IMPRESSION: 1. Endotracheal tube tip is 5.5 cm above the byron. 2. Suboptimal ventilatory effort with stable platelike atelectasis at the left base and mild atelectasis on the right, as noted. Electronically Signed: Brayan Pretty MD at 15:36 EST , Service support , CC: Jeffrey Campos MD; Tio Parker MD Clerk Cashier: Signed 12 LEAD ELECTROCARDIOGRAM Observed: 12/21/2017 Status: F Source: ANÍBAL 11:38 AM [facility] REPOSITORY [facility] Cardiovascular Services [address] [place] [address] 12 Lead EKG 12/19/17 0517 MR#: [id number] Acct: [id number] Name: MANGO MCGARRY Rep #: [id number] : 1960 57 From: Sebastien Weinberg MD Attending Dr: Juan Manuel Subramanian DO Status: ADM IN Ordering Dr: Robert Li MD Date: 12/19/17 Location: ICU Sex: M C Admitted: 12/12/17 Test Reason : AM Blood Pressure : / mmHG Vent. Rate : 077 BPM Atrial Rate : 077 BPM P-R Int : 150 ms QRS Dur : 086 ms QT Int : 380 ms P-R-T Axes : 027 083 -10 degrees QTc Int : 430 ms Normal sinus rhythm Septal infarct (cited on or before 30-JUN-2017) Abnormal ECG When compared with ECG of 12-DEC-2017 08:17, No significant change was found Confirmed by SEBASTIEN WEINBERG MD ([id number]), publication editor SELINA TSANG ([id number]) on 12/21/2017 11:38:13 AM Referred By: STEFFANY Confirmed By:SEBASTIEN WEINBERG MD 12/21/17 1138 Date Sebastien Weinberg MD CC: Robert Li MD; Juan Manuel Subramanian DO; Tio Parker MD Signed BEDSIDE GLUCOSE Collected: 12/21/2017 Status: F Source: ANÍBAL 11:08 AM [facility] REPOSITORY TYPE CODE TESTS RESULT OUT OF REFERENCE UNITS RANGE LAB L501.080 70-110 mg/dL High BEDSIDE GLU 351 Result Comment: MANAGEMENT OF PATIENT CARE PER NURSING PROTOCOL Performed By: #### L501.080 #### [facility] Point of Care [address] [place] [address] PROTHROMBIN TIME W/INR Collected: 12/21/2017 Status: F Source: JAY 6:30 AM [facility] REPOSITORY TYPE CODE TESTS RESULT OUT OF RANGE REFERENCE UNITS LAB L300.4150 11.7-14.9 SECONDS Normal PROTIME 14.4 LAB L300.4200 Normal INR 1.1 Performed By: #### L300.3900, L300.4310 #### [facility] [address] [place], [address] PARTIAL THROMBOPLAST Collected: 12/21/2017 Status: F Source: JAY TIME 6:30 AM [facility] REPOSITORY TYPE CODE TESTS RESULT OUT OF RANGE REFERENCE UNITS LAB L300.4310 24.1-36.2 Seconds Normal PTT 24.8 Performed By: #### L300.3900, L300.4310 #### [facility] [address] [place], [address] BEDSIDE GLUCOSE Collected: 12/21/2017 Status: F Source: JAY 5:26 AM [facility] REPOSITORY TYPE CODE TESTS RESULT OUT OF REFERENCE UNITS RANGE LAB L501.080 70-110 mg/dL High BEDSIDE GLU 326 Result Comment: Dr Orders Followed Insulin Given MANAGEMENT OF PATIENT CARE PER NURSING PROTOCOL Performed By: #### L501.080 #### [facility] Point of Care [address] [place] [address] CBC W/DIFF, AUTOMATED Collected: 12/21/2017 Status: F Source: JAY 4:15 AM [facility] REPOSITORY TYPE CODE TESTS RESULT OUT OF RANGE REFERENCE UNITS LAB L100.1000 4.4-11.0 K/mm3 Normal WBC 10.2 LAB L100.1200 4.6-6.2 M/mm3 Normal RBC 4.66 LAB L100.1300 13.0-16.5 g/dl Low HGB 12.7 LAB L100.1400 40-54 % Normal HCT 43.8 LAB L100.1500 80-94 fL Normal MCV 94.0 LAB L100.1600 27.0-32.0 pg Normal MCH 27.3 LAB L100.1700 32-36 g/gl Low MCHC 29.0 LAB L100.1810 11.6-14.6 % High RDW CV 14.9 LAB L100.1820 35.1-43.9 fl High RDW SD 49.4 LAB L100.1900 150-450 K/mm3 Normal PLT 280 LAB L100.2000 6.2-12.0 fl Normal MPV 10.8 LAB L100.2100 47-70 % High NEUT% 87.9 LAB L100.2200 19-41 % Low LY% 7.6 LAB L100.2300 0-10 % Normal MONO% 4.0 LAB L100.2400 0-5 % Normal EO% 0.0 LAB L100.2500 0-1 % Normal BASO% 0.0 LAB L100.2550 0.0-0.9 % Normal IM GRAN % 0.500 Result Comment: IG% - Immature Granulocytes (promyelocytes, myelocytes and metamyelocytes) > 1% indicates that a LEFT SHIFT is Present. LAB L100.2620 2.0-7.7 X10 3/uL High Absolute Neut 9.0 LAB L100.2720 0.83-4.51 X10 3/ul Low Absolute Lymph 0.78 Performed By: #### L100.0100 #### [facility] [address] [facility]. [place], [place], [address] COMPREHENSIVE METABOLIC Collected: 12/21/2017 Status: F Source: [facility] 4:15 AM [facility] REPOSITORY TYPE CODE TESTS RESULT OUT OF RANGE REFERENCE UNITS LAB L501.0100 74-106 mg/dL High GLU 352 Result Comment: Glucose result greater than or equal to 200 mg/dL suggests DIABETES MELLITUS per A.D.A. criteria. Please note revised GLUCOSE reference range effective 2017. LAB L501.1000 7-18 mg/dL High alert BUN 114 Result Comment: Critical Result(s) Called at: 04:48:46 12/21/2017 by: LATRICIA DELGADO to Ondina Boyd LAB L501.1100 0.70-1.30 mg/dL CREAT,SERUM High 2.51 Result Comment: The validity of the calculated GFR AND GFRAA in patients over 70 years has not been determined. Clinical correlation is essential. LAB L501.1110 >60 mL/min Low EST GFR 28 Result Comment: Non- GFR Calc LAB L501.1115 >60 mL/min Low EST GFR - AA 34 Result Comment: GFR Calc LAB L501.1255 ml/min Normal Estimated CRCL 30.66 LAB L501.1300 10-20 RATIO High BUN/CRE 45.4 LAB L501.1500 6.4-8. g/dL Normal 2 T PROT 7.7 LAB L501.1800 3.2-5. g/dL Normal 0 ALB 3.2 LAB L501.1950 2.2-4. g/dL High 2 GLOB 4.5 LAB L501.2000 0.9-2. RATIO Low 4 A/G 0.7 LAB L501.2200 8.5-10 mg/dL Normal .1 CA 9.3 LAB L501.4100 15-37 U/L Normal AST 16 LAB L501.4305 45-117 U/L Normal ALK P 65 LAB L501.4405 16-61 U/L Normal ALT 35 LAB L501.4600 0.20-1 mg/dL Normal .00 T BILI 0.40 LAB L501.5300 136-14 mmol/L High 5 NA 146 LAB L501.5600 3.5-5. mmol/L Normal 1 K 3.9 LAB L501.5900 98-107 mmol/L Low CL 97 LAB L501.6100 21.0-3 mmol/L High 2.0 CO2 35.0 LAB L501.6200 5-15 Normal GAP 14 Performed By: #### L500.4050 #### [facility] [address] [place], [address] BEDSIDE GLUCOSE Collected: 12/20/2017 Status: F Source: JAY 11:47 PM [facility] REPOSITORY TYPE CODE TESTS RESULT OUT OF REFERENCE UNITS RANGE LAB L501.080 70-110 mg/dL High BEDSIDE GLU 347 Result Comment: MANAGEMENT OF PATIENT CARE PER NURSING PROTOCOL Performed By: #### L501.080 #### [facility] Point of Care [address] [place] [address] BEDSIDE GLUCOSE Collected: 12/20/2017 Status: F Source: ANÍBAL 9:19 PM [facility] REPOSITORY TYPE CODE TESTS RESULT OUT OF REFERENCE UNITS RANGE LAB L501.080 70-110 mg/dL High BEDSIDE GLU 331 Result Comment: Insulin Given MANAGEMENT OF PATIENT CARE PER NURSING PROTOCOL Performed By: #### L501.080 #### [facility] Point of Care [address] [place] [address] BLOOD GASES BY CPS Collected: 12/20/2017 Status: F Source: ANÍBAL 7:31 PM [facility] REPOSITORY TYPE CODE TESTS RESULT OUT OF RANGE REFERENCE UNITS LAB L9000.9990 Normal BLD GAS TYPE ART LAB L9001.1000 Normal SITE R Radial LAB L9001.1010 Normal ELIZABETH TEST POS LAB L9001.1048 Normal Mode A-C LAB L9001.1050 O2 Normal Delivery Dev Vent LAB L9001.1060 MV Normal 6.00 LAB L9001.1065 Vt Normal 450 LAB L9001.1070 RR Normal 14 LAB L9001.1074 Normal FI02 50 LAB L9001.1076 Normal PEEP 13 LAB L9001.1104 Normal Results To ICU LAB L9001.1110 7.35-7.45 pH Normal - I-STAT 7.44 LAB L9001.1210 35-45 mmHg High pCO2 - ISTAT 60.6 LAB L9001.1310 75-100 mmHG Low PO2 I-STAT 68 LAB L9001.2300 22-26 mmol/L High HCO3 ISTAT 41.5 LAB L9001.2400 -2 to +2 mmol/L High BE ISTAT 17 LAB L9001.2415 mmol/L Normal TOTAL CO2 43 ISTAT LAB L9001.2425 95-99 % Low SO2 ISTAT 93 Performed By: #### L9000.0800 #### [facility] Point of Care [address] [place] [address] BEDSIDE GLUCOSE Collected: 12/20/2017 Status: F Source: ANÍBAL 5:04 PM [facility] REPOSITORY TYPE CODE TESTS RESULT OUT OF REFERENCE UNITS RANGE LAB L501.080 70-110 mg/dL High BEDSIDE GLU 298 Result Comment: MANAGEMENT OF PATIENT CARE PER NURSING PROTOCOL Performed By: #### L501.080 #### [facility] Point of Care [address] [place] [address] BEDSIDE GLUCOSE Collected: 12/20/2017 Status: F Source: JAY 11:24 AM [facility] REPOSITORY TYPE CODE TESTS RESULT OUT OF REFERENCE UNITS RANGE LAB L501.080 70-110 mg/dL High BEDSIDE GLU 329 Result Comment: MANAGEMENT OF PATIENT CARE PER NURSING PROTOCOL Performed By: #### L501.080 #### [facility] Point of Care [address] [place] [address] CHEST 1 VIEW Observed: 12/20/2017 Status: F Source: JAY (PORTABLE) 5:43 AM [facility] REPOSITORY [facility] Imaging Services [address] [place] [address] Chest 1 View (Portable) MR#: [id number] Acct: [id number] Name: MANGO MCGARRY Rep #: [id number] : 1960 M 57 From: Akhil Izquierdo MD PCP: Tio Parker MD Status: ADM IN Study: Chest 1 View (Portable) Date of Exam: 12/20/17 Exam# [id number] Ordering Dr: Jeffrey Campos MD STUDY: X-RAY CHEST REASON FOR EXAM: Male, 57 years old. The patient is intubated. TECHNIQUE: Single AP portable view of the chest. COMPARISON: Comparison is made with prior study dated December 19, 2017. FINDINGS: The endotracheal tube is in situ. The tip is at 4.8 cm proximal to the byron. An enteric gastric tube is seen with the tip in the body of the stomach. EKG electrodes are seen. Persistent increased markings are seen in the left lower lobe suggestive of left basilar atelectasis and/or infiltrate. This has increased. Blunting of the left costophrenic angle. There is mild cardiac enlargement. Normal mediastinum and marta. Normal visualized pulmonary arteries. There is atherosclerotic tortuosity of the aortic arch and descending thoracic aorta. There are diffuse degenerative changes of the visualized thoracic spine. Normal visualized ribs, clavicles, and shoulders. There is no demonstrated abnormality of the visualized soft tissue structures of the upper abdomen. RAD/Chest 1 View (Portable) IMPRESSION: Stable position of the endotracheal tube and enterogastric tube. Progressive left lower lobe atelectasis and/or infiltrate. Electronically Signed: Akhil Izquierdo MD at 9:15 EST Tel [phone], Service support , CC: Jeffrey Campos MD; Tio Parekr MD Clerk Cashier: Signed BEDSIDE GLUCOSE Collected: 12/20/2017 Status: F Source: JAY 5:29 AM [facility] REPOSITORY TYPE CODE TESTS RESULT OUT OF REFERENCE UNITS RANGE LAB L501.080 70-110 mg/dL High BEDSIDE GLU 293 Result Comment: MANAGEMENT OF PATIENT CARE PER NURSING PROTOCOL Performed By: #### L501.080 #### [facility] Point of Care [address] [place], [place] [address] Observed: 12/20/2017 Status: F Source: JAY CULTURE, SPUTUM 5:00 AM [facility] REPOSITORY Gram Stain Acceptable Specimen? Yes (<25 Epithelial cells per/lpf) Gram Stain 2+ White Blood Cells 1+ Epithelial cells No organisms seen Resp. Culture No Haemophilus, Streptococcus pneumoniae, beta-hemolytic Streptococcus or Staphylococcus aureus isolated. ORGANISM 1: Yeast, not Audra albicans Amount Growth 1+ Performed By: #### M100.0800 #### [facility] [address] [place], [place], [address] CBC W/DIFF, AUTOMATED Collected: 12/20/2017 Status: F Source: JAY 4:05 AM [facility] REPOSITORY TYPE CODE TESTS RESULT OUT OF RANGE REFERENCE UNITS LAB L100.1000 4.4-11.0 K/mm3 Normal WBC 7.3 LAB L100.1200 4.6-6.2 M/mm3 Normal RBC 4.87 LAB L100.1300 13.0-16.5 g/dl Normal HGB 13.6 LAB L100.1400 40-54 % Normal HCT 44.7 LAB L100.1500 80-94 fL Normal MCV 91.8 LAB L100.1600 27.0-32.0 pg Normal MCH 27.9 LAB L100.1700 32-36 g/gl Low MCHC 30.4 LAB L100.1810 11.6-14.6 % Normal RDW CV 14.4 LAB L100.1820 35.1-43.9 fl High RDW SD 47.3 LAB L100.1900 150-450 K/mm3 Normal PLT 275 LAB L100.2000 6.2-12.0 fl Normal MPV 10.6 LAB L100.2100 47-70 % High NEUT% 76.0 LAB L100.2200 19-41 % Low LY% 10.5 LAB L100.2300 0-10 % High MONO% 12.8 LAB L100.2400 0-5 % Normal EO% 0.0 LAB L100.2500 0-1 % Normal BASO% 0.1 LAB L100.2550 0.0-0.9 % Normal IM GRAN % 0.600 Result Comment: IG% - Immature Granulocytes (promyelocytes, myelocytes and metamyelocytes) > 1% indicates that a LEFT SHIFT is Present. LAB L100.2620 2.0-7.7 X10 3/uL Normal Absolute Neut 5.5 LAB L100.2720 0.83-4.51 X10 3/ul Low Absolute Lymph 0.76 Performed By: #### L100.0100 #### [facility] [address] [place] [address]. [place], [place], [address] BASIC METABOLIC Collected: 12/20/2017 Status: F Source: JAY PROFILE (BMP) 4:05 AM [facility] REPOSITORY TYPE CODE TESTS RESULT OUT OF RANGE REFERENCE UNITS LAB L501.0100 74-106 mg/dL High GLU 291 Result Comment: Glucose result greater than or equal to 200 mg/dL suggests DIABETES MELLITUS per A.D.A. criteria. Please note revised GLUCOSE reference range effective 2017. LAB L501.1000 7-18 mg/dL High BUN 84 LAB L501.1100 0.70-1.30 mg/dL High CREAT,SERUM 1.33 Result Comment: The validity of the calculated GFR AND GFRAA in patients over 70 years has not been determined. Clinical correlation is essential. LAB L501.1110 >60 mL/min Low EST GFR 58 Result Comment: Non- GFR Calc LAB L501.1115 >60 mL/min Normal EST GFR - AA 71 Result Comment: GFR Calc LAB L501.1255 ml/min Normal Estimated CRCL 57.86 LAB L501.1300 10-20 RATIO High BUN/CRE 63.2 LAB L501.2200 8.5-10 mg/dL Normal .1 CA 9.8 LAB L501.5300 136-14 mmol/L High 5 NA 146 LAB L501.5600 3.5-5. mmol/L Normal 1 K 3.5 LAB L501.5900 98-107 mmol/L Low CL 95 LAB L501.6100 21.0-3 mmol/L High 2.0 CO2 43.0 LAB L501.6200 5-15 Normal GAP 8 Performed By: #### L500.2500 #### [facility] [address] [place], [address] PROTHROMBIN TIME W/INR Collected: 12/20/2017 Status: F Source: ANÍBAL 4:05 AM [facility] REPOSITORY TYPE CODE TESTS RESULT OUT OF RANGE REFERENCE UNITS LAB L300.4150 11.7-14.9 SECONDS Normal PROTIME 14.3 LAB L300.4200 Normal INR 1.1 Performed By: #### L300.3900, L300.4310 #### [facility] [address] [place], [address] PARTIAL THROMBOPLAST Collected: 12/20/2017 Status: F Source: JAY TIME 4:05 AM [facility] REPOSITORY TYPE CODE TESTS RESULT OUT OF REFERENCE UNITS RANGE LAB L300.4310 24.1-36.2 Seconds Low PTT 20.1 Performed By: #### L300.3900, L300.4310 #### [facility] [address] [place], [address] BEDSIDE GLUCOSE Collected: 12/19/2017 Status: F Source: ANÍBAL 11:17 PM [facility] REPOSITORY TYPE CODE TESTS RESULT OUT OF REFERENCE UNITS RANGE LAB L501.080 70-110 mg/dL High BEDSIDE GLU 321 Result Comment: MANAGEMENT OF PATIENT CARE PER NURSING PROTOCOL Performed By: #### L501.080 #### [facility] Point of Care [address] [place] [address] BEDSIDE GLUCOSE Collected: 12/19/2017 Status: F Source: ANÍBAL 4:09 PM [facility] REPOSITORY TYPE CODE TESTS RESULT OUT OF REFERENCE UNITS RANGE LAB L501.080 70-110 mg/dL High BEDSIDE GLU 266 Result Comment: MANAGEMENT OF PATIENT CARE PER NURSING PROTOCOL Performed By: #### L501.080 #### [facility] Point of Care [address] [place] [address] BEDSIDE GLUCOSE Collected: 12/19/2017 Status: F Source: ANÍBAL 11:21 AM [facility] REPOSITORY TYPE CODE TESTS RESULT OUT OF REFERENCE UNITS RANGE LAB L501.080 70-110 mg/dL High BEDSIDE GLU 272 Result Comment: MANAGEMENT OF PATIENT CARE PER NURSING PROTOCOL Performed By: #### L501.080 #### [facility] Point of Care [address] [place] [address] CHEST 1 VIEW Observed: 12/19/2017 Status: F Source: ANÍBAL 7:17 AM [facility] REPOSITORY [facility] Imaging Services [address] [place] [address] Chest 1 View MR#: [id number] Acct: [id number] Name: MANGO MCGARRY Rep #: [id number] : 1960 M 57 From: Akhil Izquierdo MD PCP: Tio Parker MD Status: ADM IN Study: Chest 1 View Date of Exam: 12/19/17 Exam# [id number] Ordering Dr: Jeffrey Campos MD STUDY: X-RAY CHEST REASON FOR EXAM: Male, 57 years old. Shortness of breath/dyspnea. TECHNIQUE: Single AP portable view of the chest. COMPARISON: Comparison is made with prior study dated December 16, 2017. FINDINGS: An endotracheal tube is in situ. The tip is at 5.8 cm proximal to the byron. An enteric gastric tube is seen with the tip in the body of the stomach. EKG electrodes are seen. There is evidence of increased markings at the left lung base suggestive of atelectasis and/or infiltrate. The previously seen CHF as clear. There is no demonstrated pleural abnormality. There is mild cardiac enlargement. Normal mediastinum and marta. Normal visualized pulmonary arteries. Normal visualized aortic arch and descending thoracic aorta. Normal visualized thoracic spine. Normal visualized ribs, clavicles, and shoulders. There is no demonstrated abnormality of the visualized soft tissue structures of the upper abdomen. RAD/Chest 1 View IMPRESSION: Residual increased markings at the left lung base suggestive of atelectasis and/or infiltrate. The remainder of the examination is unremarkable. Electronically Signed: Akhil Izquierdo MD at 8:45 EST Tel [phone], Service support , CC: Jeffrey Campos MD; Tio Parker MD Clerk Cashier: Signed BEDSIDE GLUCOSE Collected: 12/19/2017 Status: F Source: JAY 6:46 AM [facility] REPOSITORY TYPE CODE TESTS RESULT OUT OF REFERENCE UNITS RANGE LAB L501.080 70-110 mg/dL High BEDSIDE GLU 249 Result Comment: MANAGEMENT OF PATIENT CARE PER NURSING PROTOCOL Performed By: #### L501.080 #### [facility] Point of Care [facility] [place] [address] URINALYSIS, COMPLETE Collected: 12/19/2017 Status: F Source: JAY 4:10 AM [facility] REPOSITORY Order Comment: Order Date: 12/19/17 How was Urine Obtained? CATHETER SPECIMEN TYPE CODE TESTS RESULT OUT OF RANGE REFERENCE UNITS LAB L400.3000 Yellow COLOR Normal Yellow LAB L400.3050 Clear Normal CLARITY Clear LAB L400.3200 Normal mg/dl Normal GLUCOSE, UR Normal LAB L400.3300 Negative mg/dL Normal BILIRUBIN URINE Negative LAB L400.3400 Negative mg/dl Normal KETONE UR Negative LAB L400.3465 1.002-1.030 Normal SP.GR. DIPSTX 1.010 LAB L400.3550 5.0 - 8.0 pH UR Normal 6.5 LAB L400.3600 Negative mg/dl PROT Normal DIPSTX Negative LAB L400.3700 Normal mg/dl Normal UROBILI Normal LAB L400.3750 Negative Normal NITRITE UR Negative LAB L400.3780 Negative /ul Normal OCCULT BLOOD-UR Negative LAB L400.3800 Negative /ul High LEUK 25 ESTERASE LAB L400.4050 0-5 /hpf WBC 0 Normal SEEN LAB L400.4100 0-5 /hpf 0 Normal RBC-UA SEEN LAB L400.4150 0-5 /hpf SQUAM 0 Normal EPI SEEN LAB L400.4300 None Seen /hpf 0 Normal BACTERIA SEEN LAB L400.4350 <or=2+ /hpf 0 Normal MUCUS, URINE SEEN Performed By: #### L400.0001 #### [facility] [address] [place], [place], [address] CBC W/DIFF, AUTOMATED Collected: 12/19/2017 Status: F Source: ANÍBAL 1:15 AM [facility] REPOSITORY Order Comment: Order Date: 12/19/17 TYPE CODE TESTS RESULT OUT OF RANGE REFERENCE UNITS LAB L100.1000 4.4-11.0 K/mm3 Normal WBC 7.5 LAB L100.1200 4.6-6.2 M/mm3 Low RBC 4.54 LAB L100.1300 13.0-16.5 g/dl Low HGB 12.7 LAB L100.1400 40-54 % Normal HCT 42.1 LAB L100.1500 80-94 fL Normal MCV 92.7 LAB L100.1600 27.0-32.0 pg Normal MCH 28.0 LAB L100.1700 32-36 g/gl Low MCHC 30.2 LAB L100.1810 11.6-14.6 % High RDW CV 14.7 LAB L100.1820 35.1-43.9 fl High RDW SD 47.8 LAB L100.1900 150-450 K/mm3 Normal PLT 293 LAB L100.2000 6.2-12.0 fl Normal MPV 10.2 LAB L100.2100 47-70 % High NEUT% 74.1 LAB L100.2200 19-41 % Low LY% 14.4 LAB L100.2300 0-10 % High MONO% 11.0 LAB L100.2400 0-5 % Normal EO% 0.0 LAB L100.2500 0-1 % Normal BASO% 0.1 LAB L100.2550 0.0-0.9 % Normal IM GRAN % 0.400 Result Comment: IG% - Immature Granulocytes (promyelocytes, myelocytes and metamyelocytes) > 1% indicates that a LEFT SHIFT is Present. LAB L100.2620 2.0-7.7 X10 3/uL Normal Absolute Neut 5.5 LAB L100.2720 0.83-4.51 X10 3/ul Normal Absolute Lymph 1.07 Performed By: #### L100.0100 #### [facility] [address] [place], [address] BASIC METABOLIC Collected: 12/19/2017 Status: F Source: JAY PROFILE ([facility]) 1:15 AM [facility] REPOSITORY Order Comment: Order Date: 12/19/17 TYPE CODE TESTS RESULT OUT OF RANGE REFERENCE UNITS LAB L501.0100 74-106 mg/dL High GLU 230 Result Comment: Glucose result greater than or equal to 200 mg/dL suggests DIABETES MELLITUS per A.D.A. criteria. Please note revised GLUCOSE reference range effective 2017. LAB L501.1000 7-18 mg/dL High BUN 56 LAB L501.1100 0.70-1.30 mg/dL Normal CREAT,SERUM 1.24 Result Comment: The validity of the calculated GFR AND GFRAA in patients over 70 years has not been determined. Clinical correlation is essential. LAB L501.1110 >60 mL/min Normal EST GFR 63 Result Comment: Non- GFR Calc LAB L501.1115 >60 mL/min Normal EST GFR - AA 77 Result Comment: GFR Calc LAB L501.1255 ml/min Normal Estimated CRCL 62.06 LAB L501.1300 10-20 RATIO High BUN/CRE 45.2 LAB L501.2200 8.5-10 mg/dL Normal .1 CA 9.6 LAB L501.5300 136-14 mmol/L Normal 5 NA 141 LAB L501.5600 3.5-5. mmol/L Low 1 K 3.3 LAB L501.5900 98-107 mmol/L Low CL 89 LAB L501.6100 21.0-3 mmol/L High 2.0 CO2 43.0 LAB L501.6200 5-15 Normal GAP 9 Performed By: #### L500.2500 #### [facility] [address] [place], [address] PROTHROMBIN TIME W/INR Collected: 12/19/2017 Status: F Source: ANÍBAL 1:15 AM [facility] REPOSITORY Order Comment: Order Date: 12/19/17 Order Date: 12/19/17 TYPE CODE TESTS RESULT OUT OF RANGE REFERENCE UNITS LAB L300.4150 11.7-14.9 SECONDS Normal PROTIME 13.4 LAB L300.4200 Normal INR 1.0 Performed By: #### L300.3900, L300.4310 #### [facility] [place], [address] PARTIAL THROMBOPLAST Collected: 12/19/2017 Status: F Source: ANÍBAL TIME 1:15 AM [facility] REPOSITORY Order Comment: Order Date: 12/19/17 Order Date: 12/19/17 TYPE CODE TESTS RESULT OUT OF RANGE REFERENCE UNITS LAB L300.4310 24.1-36.2 Seconds Normal PTT 25.0 Performed By: #### L300.3900, L300.4310 #### [facility] [address] [place], [address] BEDSIDE GLUCOSE Collected: 12/19/2017 Status: F Source: ANÍBAL 12:03 AM [facility] REPOSITORY TYPE CODE TESTS RESULT OUT OF REFERENCE UNITS RANGE LAB L501.080 70-110 mg/dL High BEDSIDE GLU 255 Result Comment: MANAGEMENT OF PATIENT CARE PER NURSING PROTOCOL Performed By: #### L501.080 #### [facility] Point of Care [address] [facility] [place] [address] BEDSIDE GLUCOSE Collected: 12/18/2017 Status: F Source: ANÍBAL 5:12 PM [facility] REPOSITORY TYPE CODE TESTS RESULT OUT OF REFERENCE UNITS RANGE LAB L501.080 70-110 mg/dL High BEDSIDE GLU 220 Result Comment: MANAGEMENT OF PATIENT CARE PER NURSING PROTOCOL Performed By: #### L501.080 #### [facility] Point of Care [address] [place] [address] BEDSIDE GLUCOSE Collected: 12/18/2017 Status: F Source: ANÍBAL 11:31 AM [facility] REPOSITORY TYPE CODE TESTS RESULT OUT OF REFERENCE UNITS RANGE LAB L501.080 70-110 mg/dL High BEDSIDE GLU 216 Result Comment: MANAGEMENT OF PATIENT CARE PER NURSING PROTOCOL Performed By: #### L501.080 #### [facility] Point of Care [address] [place] [address] BASIC METABOLIC Collected: 12/18/2017 Status: F Source: ANÍBAL PROFILE (BMP) 8:25 AM [facility] REPOSITORY TYPE CODE TESTS RESULT OUT OF RANGE REFERENCE UNITS LAB L501.0100 74-106 mg/dL High GLU 203 Result Comment: Glucose result greater than or equal to 200 mg/dL suggests DIABETES MELLITUS per A.D.A. criteria. Please note revised GLUCOSE reference range effective 2017. LAB L501.1000 7-18 mg/dL High BUN 41 LAB L501.1100 0.70-1.30 mg/dL Normal CREAT,SERUM 0.98 Result Comment: The validity of the calculated GFR AND GFRAA in patients over 70 years has not been determined. Clinical correlation is essential. LAB L501.1110 >60 mL/min Normal EST GFR 83 Result Comment: Non- GFR Calc LAB L501.1115 >60 mL/min Normal EST GFR - AA 100 Result Comment: GFR Calc LAB L501.1255 ml/min Normal Estimated CRCL 78.52 LAB L501.1300 10-20 RATIO High BUN/CRE 41.8 LAB L501.2200 8.5-10 mg/dL Normal .1 CA 8.7 LAB L501.5300 136-14 mmol/L Normal 5 NA 143 LAB L501.5600 3.5-5. mmol/L Normal 1 K 3.6 LAB L501.5900 98-107 mmol/L Normal CL 99 LAB L501.6100 21.0-3 mmol/L High 2.0 CO2 40.0 LAB L501.6200 5-15 Low GAP 4 Performed By: #### L500.2500 #### [facility] [address] [place], [address] BEDSIDE GLUCOSE Collected: 12/18/2017 Status: F Source: ANÍBAL 6:12 AM [facility] REPOSITORY TYPE CODE TESTS RESULT OUT OF REFERENCE UNITS RANGE LAB L501.080 70-110 mg/dL High BEDSIDE GLU 238 Result Comment: MANAGEMENT OF PATIENT CARE PER NURSING PROTOCOL Performed By: #### L501.080 #### [facility] Point of Care [address] [place] [address] BEDSIDE GLUCOSE Collected: 12/18/2017 Status: F Source: ANÍBAL 12:13 AM [facility] REPOSITORY TYPE CODE TESTS RESULT OUT OF REFERENCE UNITS RANGE LAB L501.080 70-110 mg/dL High BEDSIDE GLU 225 Result Comment: MANAGEMENT OF PATIENT CARE PER NURSING PROTOCOL Performed By: #### L501.080 #### [facility] Point of Care [address] [place] [address] BEDSIDE GLUCOSE Collected: 12/17/2017 Status: F Source: ANÍBAL 4:33 PM [facility] REPOSITORY TYPE CODE TESTS RESULT OUT OF REFERENCE UNITS RANGE LAB L501.080 70-110 mg/dL High BEDSIDE GLU 213 Result Comment: MANAGEMENT OF PATIENT CARE PER NURSING PROTOCOL Performed By: #### L501.080 #### [facility] Point of Care [address] [place] [address] BEDSIDE GLUCOSE Collected: 12/17/2017 Status: F Source: ANÍBAL 11:22 AM [facility] REPOSITORY TYPE CODE TESTS RESULT OUT OF REFERENCE UNITS RANGE LAB L501.080 70-110 mg/dL High BEDSIDE GLU 215 Result Comment: MANAGEMENT OF PATIENT CARE PER NURSING PROTOCOL Performed By: #### L501.080 #### [facility] Point of Care [address] [place] [address] BEDSIDE GLUCOSE Collected: 12/17/2017 Status: F Source: ANÍBAL 5:58 AM [facility] REPOSITORY TYPE CODE TESTS RESULT OUT OF REFERENCE UNITS RANGE LAB L501.080 70-110 mg/dL High BEDSIDE GLU 196 Result Comment: MANAGEMENT OF PATIENT CARE PER NURSING PROTOCOL Performed By: #### L501.080 #### [facility] Point of Care [address] [place], [place] [address] CBC W/DIFF, AUTOMATED Collected: 12/17/2017 Status: F Source: JAY 4:45 AM [facility] REPOSITORY TYPE CODE TESTS RESULT OUT OF RANGE REFERENCE UNITS LAB L100.1000 4.4-11.0 K/mm3 Normal WBC 7.7 LAB L100.1200 4.6-6.2 M/mm3 Low RBC 3.80 LAB L100.1300 13.0-16.5 g/dl Low HGB 10.6 LAB L100.1400 40-54 % Low HCT 35.5 LAB L100.1500 80-94 fL Normal MCV 93.4 LAB L100.1600 27.0-32.0 pg Normal MCH 27.9 LAB L100.1700 32-36 g/gl Low MCHC 29.9 LAB L100.1810 11.6-14.6 % High RDW CV 14.8 LAB L100.1820 35.1-43.9 fl High RDW SD 48.2 LAB L100.1900 150-450 K/mm3 Normal PLT 258 LAB L100.2000 6.2-12.0 fl Normal MPV 9.7 LAB L100.2100 47-70 % High NEUT% 84.6 LAB L100.2200 19-41 % Low LY% 10.4 LAB L100.2300 0-10 % Normal MONO% 4.6 LAB L100.2400 0-5 % Normal EO% 0.1 LAB L100.2500 0-1 % Normal BASO% 0.0 LAB L100.2550 0.0-0.9 % Normal IM GRAN % 0.300 Result Comment: IG% - Immature Granulocytes (promyelocytes, myelocytes and metamyelocytes) > 1% indicates that a LEFT SHIFT is Present. LAB L100.2620 2.0-7.7 X10 3/uL Normal Absolute Neut 6.5 LAB L100.2720 0.83-4.51 X10 3/ul Low Absolute Lymph 0.80 Performed By: #### L100.0100 #### [facility] [address] [place], [address] BASIC METABOLIC Collected: 12/17/2017 Status: F Source: ANÍBAL PROFILE (BMP) 4:45 AM [facility] REPOSITORY TYPE CODE TESTS RESULT OUT OF RANGE REFERENCE UNITS LAB L501.0100 74-106 mg/dL High GLU 208 Result Comment: Glucose result greater than or equal to 200 mg/dL suggests DIABETES MELLITUS per A.D.A. criteria. Please note revised GLUCOSE reference range effective 2017. LAB L501.1000 7-18 mg/dL High BUN 32 LAB L501.1100 0.70-1.30 mg/dL Normal CREAT,SERUM 1.00 Result Comment: The validity of the calculated GFR AND GFRAA in patients over 70 years has not been determined. Clinical correlation is essential. LAB L501.1110 >60 mL/min Normal EST GFR 81 Result Comment: Non- GFR Calc LAB L501.1115 >60 mL/min Normal EST GFR - AA 99 Result Comment: GFR Calc LAB L501.1255 ml/min Normal Estimated CRCL 76.95 LAB L501.1300 10-20 RATIO High BUN/CRE 32.1 LAB L501.2200 8.5-10 mg/dL Normal .1 CA 8.9 LAB L501.5300 136-14 mmol/L Normal 5 NA 143 LAB L501.5600 3.5-5. mmol/L Low 1 K 3.4 LAB L501.5900 98-107 mmol/L Low CL 96 LAB L501.6100 21.0-3 mmol/L High 2.0 CO2 39.0 LAB L501.6200 5-15 Normal GAP 8 Performed By: #### L500.2500 #### [facility] [address] [place], [place], [address] BEDSIDE GLUCOSE Collected: 12/16/2017 Status: F Source: ANÍBAL 11:40 PM [facility] REPOSITORY TYPE CODE TESTS RESULT OUT OF REFERENCE UNITS RANGE LAB L501.080 70-110 mg/dL High BEDSIDE GLU 220 Result Comment: MANAGEMENT OF PATIENT CARE PER NURSING PROTOCOL Performed By: #### L501.080 #### [facility] Point of Care [address] [place] [address] BEDSIDE GLUCOSE Collected: 12/16/2017 Status: F Source: JAY 4:23 PM [facility] REPOSITORY TYPE CODE TESTS RESULT OUT OF REFERENCE UNITS RANGE LAB L501.080 70-110 mg/dL High BEDSIDE GLU 207 Result Comment: MANAGEMENT OF PATIENT CARE PER NURSING PROTOCOL Performed By: #### L501.080 #### [facility] Point of Care [address] [place] [address] Observed: 12/16/2017 Status: F Source: JAY CULTURE, SPUTUM 12:35 PM [facility] REPOSITORY Gram Stain Gram Stain Rare Epithelial cells Rare Gram positive cocci Resp. Culture NO NORMAL RESPIRATORY LYNNE ISOLATED ORGANISM 1: Klebsiella oxytoca Amount Growth 2+ Klebsiella oxytoca: REACTION Amoxacillin/Clavulanic Acid $ 4 S Ampicillin $ >=32 R Ampicillin/Sulbactam $ 16 I Cefazolin $ 8 S Cefepime $ <=1 S Ceftriaxone $ <=1 S Ciprofloxacin $ <=0.25 S ESBL - Ertapenim $$$ <=0.5 S Gentamicin $ <=1 S Imipenem *NF <=0.25 S Levofloxacin $ <=0.12 S Piperacillin/Tazobactam $$ <=4 S Tobramycin $ <=1 S Trimethoprim/Sulfametho $ <=20 S (NF) indicates non-formulary drug at [facility]. Approval by Infectious Disease Specialist required before non-formulary drugs may be ordered and/or dispensed. Performed By: #### M100.0800 #### [facility] [address] [place], [place], [address] CHEST 1 VIEW Observed: 12/16/2017 Status: F Source: JAY 12:14 PM [facility] REPOSITORY [facility] Imaging Services [address] [place] [address] Chest 1 View MR#: [id number] Acct: [id number] Name: MANGO MCGARRY Rep #: [id number] : 1960 M 57 From: Akhil Izquierdo MD PCP: Tio Parker MD Status: ADM IN Study: Chest 1 View Date of Exam: 12/16/17 Exam# [id number] Ordering Dr: Dominick Denny DO STUDY: X-RAY CHEST REASON FOR EXAM: Male, 57 years old. Endotracheal tube and orogastric tube placement. TECHNIQUE: Single AP portable view of the chest. COMPARISON: Comparison is made with prior study dated December 15, 2017. FINDINGS: The tip of the endotracheal tube is at 4.9 cm proximal to the byron. The orogastric tube is seen with the tip below the left hemidiaphragm. Once again, increased markings are seen with areas of confluence in both upper lobes as well as in the left lower lobe has been essentially no change. There is moderate cardiac enlargement. Normal mediastinum and marta. Normal visualized pulmonary arteries. There is atherosclerotic tortuosity of the aortic arch and descending thoracic aorta. Normal visualized thoracic spine. Normal visualized ribs, clavicles, and shoulders. There is no demonstrated abnormality of the visualized soft tissue structures of the upper abdomen. RAD/Chest 1 View IMPRESSION: Stable examination. Electronically Signed: Akhil Izquierdo MD at 12:39 EST Tel [phone], Service support , CC: Dominick Denny D.O.; Tio Parker MD Clerk Cashier: Signed BEDSIDE GLUCOSE Collected: 12/16/2017 Status: F Source: ANÍBAL 11:11 AM [facility] REPOSITORY TYPE CODE TESTS RESULT OUT OF REFERENCE UNITS RANGE LAB L501.080 70-110 mg/dL High BEDSIDE GLU 238 Result Comment: MANAGEMENT OF PATIENT CARE PER NURSING PROTOCOL Performed By: #### L501.080 #### [facility] Point of Care [address] [place] [address] CBC W/DIFF, AUTOMATED Collected: 12/16/2017 Status: F Source: ANÍBAL 5:30 AM [facility] REPOSITORY TYPE CODE TESTS RESULT OUT OF RANGE REFERENCE UNITS LAB L100.1000 4.4-11.0 K/mm3 Normal WBC 7.2 LAB L100.1200 4.6-6.2 M/mm3 Low RBC 3.84 LAB L100.1300 13.0-16.5 g/dl Low HGB 11.0 LAB L100.1400 40-54 % Low HCT 36.2 LAB L100.1500 80-94 fL High MCV 94.3 LAB L100.1600 27.0-32.0 pg Normal MCH 28.6 LAB L100.1700 32-36 g/gl Low MCHC 30.4 LAB L100.1810 11.6-14.6 % High RDW CV 14.9 LAB L100.1820 35.1-43.9 fl High RDW SD 49.6 LAB L100.1900 150-450 K/mm3 Normal PLT 259 LAB L100.2000 6.2-12.0 fl Normal MPV 9.7 LAB L100.2100 47-70 % High NEUT% 88.9 LAB L100.2200 19-41 % Low LY% 9.2 LAB L100.2300 0-10 % Normal MONO% 1.7 LAB L100.2400 0-5 % Normal EO% 0.1 LAB L100.2500 0-1 % Normal BASO% 0.0 LAB L100.2550 0.0-0.9 % Normal IM GRAN % 0.100 Result Comment: IG% - Immature Granulocytes (promyelocytes, myelocytes and metamyelocytes) > 1% indicates that a LEFT SHIFT is Present. LAB L100.2620 2.0-7.7 X10 3/uL Normal Absolute Neut 6.4 LAB L100.2720 0.83-4.51 X10 3/ul Low Absolute Lymph 0.66 Performed By: #### L100.0100 #### [facility] [address] [place], [place], [address] BASIC METABOLIC Collected: 12/16/2017 Status: F Source: ANÍBAL PROFILE (BMP) 5:30 AM [facility] REPOSITORY TYPE CODE TESTS RESULT OUT OF RANGE REFERENCE UNITS LAB L501.0100 74-106 mg/dL High GLU 207 Result Comment: Glucose result greater than or equal to 200 mg/dL suggests DIABETES MELLITUS per A.D.A. criteria. Please note revised GLUCOSE reference range effective 2017. LAB L501.1000 7-18 mg/dL High BUN 21 LAB L501.1100 0.70-1.30 mg/dL Normal CREAT,SERUM 0.82 Result Comment: The validity of the calculated GFR AND GFRAA in patients over 70 years has not been determined. Clinical correlation is essential. LAB L501.1110 >60 mL/min Normal EST GFR 102 Result Comment: Non- GFR Calc LAB L501.1115 >60 mL/min Normal EST GFR - AA 123 Result Comment: GFR Calc LAB L501.1255 ml/min Normal Estimated CRCL 93.84 LAB L501.1300 10-20 RATIO High BUN/CRE 25.5 LAB L501.2200 8.5-10 mg/dL Normal .1 CA 9.0 LAB L501.5300 136-14 mmol/L Normal 5 NA 140 LAB L501.5600 3.5-5. mmol/L Low 1 K 3.4 LAB L501.5900 98-107 mmol/L Low CL 96 LAB L501.6100 21.0-3 mmol/L High 2.0 CO2 39.0 LAB L501.6200 5-15 Normal GAP 5 Performed By: #### L500.2500 #### [facility] [address] BEDSIDE GLUCOSE Collected: 12/16/2017 Status: F Source: JAY 5:22 AM [facility] REPOSITORY TYPE CODE TESTS RESULT OUT OF REFERENCE UNITS RANGE LAB L501.080 70-110 mg/dL High BEDSIDE GLU 246 Result Comment: MANAGEMENT OF PATIENT CARE PER NURSING PROTOCOL Performed By: #### L501.080 #### [facility] Point of Care [address] [facility] [address] BEDSIDE GLUCOSE Collected: 12/16/2017 Status: F Source: JAY 1:28 AM [facility] REPOSITORY TYPE CODE TESTS RESULT OUT OF REFERENCE UNITS RANGE LAB L501.080 70-110 mg/dL High BEDSIDE GLU 185 Result Comment: MANAGEMENT OF PATIENT CARE PER NURSING PROTOCOL Performed By: #### L501.080 #### [facility] Point [facility] [address] [place] [address] BEDSIDE GLUCOSE Collected: 12/15/2017 Status: F Source: ANÍBAL 5:50 PM [facility] REPOSITORY TYPE CODE TESTS RESULT OUT OF REFERENCE UNITS RANGE LAB L501.080 70-110 mg/dL High BEDSIDE GLU 166 Result Comment: MANAGEMENT OF PATIENT CARE PER NURSING PROTOCOL Performed By: #### L501.080 #### [facility] Point of Care [address] [place] [address] BEDSIDE GLUCOSE Collected: 12/15/2017 Status: F Source: ANÍBAL 12:32 PM [facility] REPOSITORY TYPE CODE TESTS RESULT OUT OF REFERENCE UNITS RANGE LAB L501.080 70-110 mg/dL High BEDSIDE GLU 139 Result Comment: MANAGEMENT OF PATIENT CARE PER NURSING PROTOCOL Performed By: #### L501.080 #### [facility] Point of Care [address] [place] [address] CHEST 1 VIEW Observed: 12/15/2017 Status: F Source: ANÍBAL (PORTABLE) 6:35 AM [facility] REPOSITORY [facility] Imaging Services [address] [place] [address] Chest 1 View (Portable) MR#: [id number] Acct: [id number] Name: MANGO MCGARRY Rep #: [id number] : 1960 M 57 From: Akhil Izquierdo MD PCP: Tio Parker MD Status: ADM IN Study: Chest 1 View (Portable) Date of Exam: 12/15/17 Exam# [id number] Ordering Dr: Dominick Denny DO STUDY: X-RAY CHEST REASON FOR EXAM: Male, 57 years old. Intubation. TECHNIQUE: Single AP portable view of the chest. COMPARISON: Comparison is made with prior study dated December 12, 2012 at 7:39 AM. FINDINGS: An endotracheal tube is in situ. The tip is at 3.3 cm proximal to the byron. An enteric tube is seen with the tip below the left hemidiaphragm. EKG electrodes are seen. Persistent increased markings in both upper lobes as well as in the left lower lobe although there has been improvement as compared to prior study. Blunting of left costophrenic angle. There is mild cardiac enlargement. Normal mediastinum and marta. Normal visualized pulmonary arteries. Normal visualized aortic arch and descending thoracic aorta. There are diffuse degenerative changes of the visualized thoracic spine. Normal visualized ribs, clavicles, and shoulders. There is no demonstrated abnormality of the visualized soft tissue structures of the upper abdomen. RAD/Chest 1 View (Portable) IMPRESSION: All the support tubes are in good position. Residual increased markings in both lungs as described although there has been improvement as compared to prior study. Electronically Signed: Akhil Izquierdo MD at 11:07 EST Tel [phone], Service support , CC: Dominick Denny D.O.; Tio Parker MD Clerk Cashier: Signed BEDSIDE GLUCOSE Collected: 12/15/2017 Status: F Source: ANÍBAL 6:01 AM [facility] REPOSITORY TYPE CODE TESTS RESULT OUT OF REFERENCE UNITS RANGE LAB L501.080 70-110 mg/dL High BEDSIDE GLU 136 Result Comment: MANAGEMENT OF PATIENT CARE PER NURSING PROTOCOL Performed By: #### L501.080 #### [facility] Point of Care [facility] [address] [place], [place] [address] CBC W/DIFF, AUTOMATED Collected: 12/15/2017 Status: F Source: ANÍBAL 4:20 AM [facility] REPOSITORY TYPE CODE TESTS RESULT OUT OF RANGE REFERENCE UNITS LAB L100.1000 4.4-11.0 K/mm3 Normal WBC 7.4 LAB L100.1200 4.6-6.2 M/mm3 Low RBC 3.73 LAB L100.1300 13.0-16.5 g/dl Low HGB 10.4 LAB L100.1400 40-54 % Low HCT 35.8 LAB L100.1500 80-94 fL High MCV 96.0 LAB L100.1600 27.0-32.0 pg Normal MCH 27.9 LAB L100.1700 32-36 g/gl Low MCHC 29.1 LAB L100.1810 11.6-14.6 % High RDW CV 15.8 LAB L100.1820 35.1-43.9 fl High RDW SD 53.6 LAB L100.1900 150-450 K/mm3 Normal PLT 239 LAB L100.2000 6.2-12.0 fl Normal MPV 9.4 LAB L100.2100 47-70 % High NEUT% 72.6 LAB L100.2200 19-41 % Low LY% 13.5 LAB L100.2300 0-10 % Normal MONO% 6.9 LAB L100.2400 0-5 % High EO% 6.6 LAB L100.2500 0-1 % Normal BASO% 0.1 LAB L100.2550 0.0-0.9 % Normal IM GRAN % 0.300 Result Comment: IG% - Immature Granulocytes (promyelocytes, myelocytes and metamyelocytes) > 1% indicates that a LEFT SHIFT is Present. LAB L100.2620 2.0-7.7 X10 3/uL Normal Absolute Neut 5.4 LAB L100.2720 0.83-4.51 X10 3/ul Normal Absolute Lymph 1.00 Performed By: #### L100.0100 #### [facility] [address] [place], [address] BASIC METABOLIC Collected: 12/15/2017 Status: F Source: JAY PROFILE ([facility]) 4:20 AM [facility] REPOSITORY TYPE CODE TESTS RESULT OUT OF RANGE REFERENCE UNITS LAB L501.0100 74-106 mg/dL High GLU 129 Result Comment: Fasting Glucose result greater than or equal to 126 mg/dL suggests DIABETES MELLITUS per A.D.A. criteria. Please note revised GLUCOSE reference range effective 2017. LAB L501.1000 7-18 mg/dL High BUN 22 LAB L501.1100 0.70-1.30 mg/dL Normal CREAT,SERUM 0.78 Result Comment: The validity of the calculated GFR AND GFRAA in patients over 70 years has not been determined. Clinical correlation is essential. LAB L501.1110 >60 mL/min Normal EST GFR 108 Result Comment: Non- GFR Calc LAB L501.1115 >60 mL/min Normal EST GFR - AA 130 Result Comment: GFR Calc LAB L501.1255 ml/min Normal Estimated CRCL 98.65 LAB L501.1300 10-20 RATIO High BUN/CRE 28.1 LAB L501.2200 8.5-10 mg/dL Low .1 CA 8.4 LAB L501.5300 136-14 mmol/L Normal 5 NA 143 LAB L501.5600 3.5-5. mmol/L Low 1 K 3.4 LAB L501.5900 98-107 mmol/L Normal CL 98 LAB L501.6100 21.0-3 mmol/L High 2.0 CO2 38.0 LAB L501.6200 5-15 Normal GAP 7 Performed By: #### L500.2500 #### [facility] [address] [facility] [place], [address] PHOSPHORUS Collected: 12/15/2017 Status: F Source: JAY 4:20 AM [facility] REPOSITORY TYPE CODE TESTS RESULT OUT OF RANGE REFERENCE UNITS LAB L501.2300 2.5-4.9 mg/dL Normal PHOS 4.1 Performed By: #### L501.2300, L501.5200 #### [facility] [address] [place], [address] MAGNESIUM Collected: 12/15/2017 Status: F Source: JAY 4:20 AM [facility] REPOSITORY TYPE CODE TESTS RESULT OUT OF RANGE REFERENCE UNITS LAB L501.5200 1.6-2.6 mg/dL High MG 2.7 Performed By: #### L501.2300, L501.5200 #### [facility] [address] [place], [address] BEDSIDE GLUCOSE Collected: 12/15/2017 Status: F Source: JAY 12:00 AM [facility] REPOSITORY TYPE CODE TESTS RESULT OUT OF REFERENCE UNITS RANGE LAB L501.080 70-110 mg/dL High BEDSIDE GLU 135 Result Comment: MANAGEMENT OF PATIENT CARE PER NURSING PROTOCOL Performed By: #### L501.080 #### [facility] Point of Care [address] [place] [address] BEDSIDE GLUCOSE Collected: 12/14/2017 Status: F Source: ANÍBAL 6:28 PM [facility] REPOSITORY TYPE CODE TESTS RESULT OUT OF REFERENCE UNITS RANGE LAB L501.080 70-110 mg/dL High BEDSIDE GLU 154 Result Comment: MANAGEMENT OF PATIENT CARE PER NURSING PROTOCOL Performed By: #### L501.080 #### [facility] Point of Care [address] [place] [address] BEDSIDE GLUCOSE Collected: 12/14/2017 Status: F Source: ANÍBAL 12:22 PM [facility] REPOSITORY TYPE CODE TESTS RESULT OUT OF REFERENCE UNITS RANGE LAB L501.080 70-110 mg/dL High BEDSIDE GLU 126 Result Comment: MANAGEMENT OF PATIENT CARE PER NURSING PROTOCOL Performed By: #### L501.080 #### [facility] Point of Care [address] [place] [address] BLOOD GASES BY CPS Collected: 12/14/2017 Status: F Source: ANÍBAL 9:46 AM [facility] REPOSITORY TYPE CODE TESTS RESULT OUT OF RANGE REFERENCE UNITS LAB L9000.9990 Normal BLD GAS TYPE ART LAB L9001.1000 Normal SITE L Radial LAB L9001.1010 Normal ELIZABETH TEST NA LAB L9001.1048 Normal Mode A-C LAB L9001.1050 O2 Normal Delivery Dev Vent LAB L9001.1060 MV Normal 8.00 LAB L9001.1065 Vt Normal 450 LAB L9001.1070 RR Normal 14 LAB L9001.1074 Normal FI02 60 LAB L9001.1076 Normal PEEP 8 LAB L9001.1104 Normal Results To ICU LAB L9001.1105 Normal Time Given 945 LAB L9001.1110 7.35-7.45 pH Normal - I-STAT 7.40 LAB L9001.1210 35-45 mmHg High alert pCO2 - ISTAT 73.2 LAB L9001.1310 75-100 mmHG Low PO2 I-STAT 51 LAB L9001.2300 22-26 mmol/L High HCO3 ISTAT 45.6 LAB L9001.2400 -2 to +2 mmol/L High BE ISTAT 21 LAB L9001.2415 mmol/L Normal TOTAL CO2 48 ISTAT LAB L9001.2425 95-99 % Low SO2 ISTAT 84 Performed By: #### L9000.0800 #### [facility] Point of Care [address] [place] [address] BEDSIDE GLUCOSE Collected: 12/14/2017 Status: F Source: ANÍBAL 5:55 AM [facility] REPOSITORY TYPE CODE TESTS RESULT OUT OF REFERENCE UNITS RANGE LAB L501.080 70-110 mg/dL High BEDSIDE GLU 173 Result Comment: MANAGEMENT OF PATIENT CARE PER NURSING PROTOCOL Performed By: #### L501.080 #### [facility] Point of Care [address] [place] [address] CBC W/DIFF, AUTOMATED Collected: 12/14/2017 Status: F Source: JAY 4:20 AM [facility] REPOSITORY TYPE CODE TESTS RESULT OUT OF RANGE REFERENCE UNITS LAB L100.1000 4.4-11.0 K/mm3 Normal WBC 8.3 LAB L100.1200 4.6-6.2 M/mm3 Low RBC 3.65 LAB L100.1300 13.0-16.5 g/dl Low HGB 10.4 LAB L100.1400 40-54 % Low HCT 34.8 LAB L100.1500 80-94 fL High MCV 95.3 LAB L100.1600 27.0-32.0 pg Normal MCH 28.5 LAB L100.1700 32-36 g/gl Low MCHC 29.9 LAB L100.1810 11.6-14.6 % High RDW CV 15.9 LAB L100.1820 35.1-43.9 fl High RDW SD 52.9 LAB L100.1900 150-450 K/mm3 Normal PLT 220 LAB L100.2000 6.2-12.0 fl Normal MPV 9.7 LAB L100.2100 47-70 % High NEUT% 72.7 LAB L100.2200 19-41 % Low LY% 15.6 LAB L100.2300 0-10 % Normal MONO% 6.9 LAB L100.2400 0-5 % Normal EO% 4.2 LAB L100.2500 0-1 % Normal BASO% 0.2 LAB L100.2550 0.0-0.9 % Normal IM GRAN % 0.400 Result Comment: IG% - Immature Granulocytes (promyelocytes, myelocytes and metamyelocytes) > 1% indicates that a LEFT SHIFT is Present. LAB L100.2620 2.0-7.7 X10 3/uL Normal Absolute Neut 6.0 LAB L100.2720 0.83-4.51 X10 3/ul Normal Absolute Lymph 1.29 Performed By: #### L100.0100 #### [facility] [address] [facility] [place], [place], [address] BASIC METABOLIC Collected: 12/14/2017 Status: F Source: ANÍBAL PROFILE (BMP) 4:20 AM [facility] REPOSITORY TYPE CODE TESTS RESULT OUT OF RANGE REFERENCE UNITS LAB L501.0100 74-106 mg/dL Normal GLU 101 Result Comment: Fasting Glucose result from 100 to 125 mg/dL suggests IMPAIRED HOMEOSTASIS per A.D.A. criteria. Please note revised GLUCOSE reference range effective 2017. LAB L501.1000 7-18 mg/dL High BUN 23 LAB L501.1100 0.70-1.30 mg/dL Normal CREAT,SERUM 0.84 Result Comment: The validity of the calculated GFR AND GFRAA in patients over 70 years has not been determined. Clinical correlation is essential. LAB L501.1110 >60 mL/min Normal EST GFR 99 Result Comment: Non- GFR Calc LAB L501.1115 >60 mL/min Normal EST GFR - AA 120 Result Comment: GFR Calc LAB L501.1255 ml/min Normal Estimated CRCL 91.61 LAB L501.1300 10-20 RATIO High BUN/CRE 27.3 LAB L501.2200 8.5-10 mg/dL Low .1 CA 8.3 LAB L501.5300 136-14 mmol/L Normal 5 NA 144 LAB L501.5600 3.5-5. mmol/L Normal 1 K 3.5 LAB L501.5900 98-107 mmol/L Low CL 97 LAB L501.6100 21.0-3 mmol/L High 2.0 CO2 42.0 LAB L501.6200 5-15 Normal GAP 5 Performed By: #### L500.2500 #### [facility] [address] [place], [address] BEDSIDE GLUCOSE Collected: 12/14/2017 Status: F Source: ANÍBAL 1:01 AM [facility] REPOSITORY TYPE CODE TESTS RESULT OUT OF RANGE REFERENCE UNITS LAB L501.080 70-110 mg/dL Normal BEDSIDE GLU 100 Result Comment: MANAGEMENT OF PATIENT CARE PER NURSING PROTOCOL Performed By: #### L501.080 #### [facility] Point of Care [address] [place] [address] BEDSIDE GLUCOSE Collected: 12/13/2017 Status: F Source: ANÍBAL 6:29 PM [facility] REPOSITORY TYPE CODE TESTS RESULT OUT OF RANGE REFERENCE UNITS LAB L501.080 70-110 mg/dL Normal BEDSIDE GLU 95 Result Comment: MANAGEMENT OF PATIENT CARE PER NURSING PROTOCOL Performed By: #### L501.080 #### [facility] Point of Care [address] [place] [address] 12 LEAD ELECTROCARDIOGRAM Observed: 12/13/2017 Status: F Source: ANÍBAL 2:09 PM [facility] REPOSITORY [facility] Cardiovascular Services [address] [place] [address] 12 Lead EKG 12/12/17 0817 MR#: [id number] Acct: [id number] Name: MANGO MCGARRY Rep #: [id number] : 1960 57 From: Sebastien Weinberg MD Attending Dr: Gina Elena MD Status: ADM IN Ordering Dr: Mega Chacon MD Date: 12/12/17 Location: ICU Sex: M C Admitted: 12/12/17 Test Reason : UNRESPONSIVE Blood Pressure : / mmHG Vent. Rate : 091 BPM Atrial Rate : 091 BPM P-R Int : 162 ms QRS Dur : 084 ms QT Int : 346 ms P-R-T Axes : 009 072 251 degrees QTc Int : 425 ms Normal sinus rhythm Low voltage QRS Septal infarct , age undetermined ST AND T wave abnormality, consider inferior ischemia Abnormal ECG Confirmed by SEBASTIEN WEINBERG MD ([id number]), publication editor SELINA TSANG ([id number]) on 12/13/2017 2:09:16 PM Referred By: WANG Confirmed By:SEBASTIEN WEINBERG MD 12/13/17 140 Date Sebastien Weinberg MD CC: Gina Elena MD; Mega Chacon MD; Tio Parker MD Signed BEDSIDE GLUCOSE Collected: 12/13/2017 Status: F Source: ANÍBAL 12:24 PM [facility] REPOSITORY TYPE CODE TESTS RESULT OUT OF RANGE REFERENCE UNITS LAB L501.080 70-110 mg/dL Normal BEDSIDE GLU 90 Result Comment: MANAGEMENT OF PATIENT CARE PER NURSING PROTOCOL Performed By: #### L501.080 #### [facility] Point of Care [address] [place] [address] M R STAPH AUREUS Collected: 12/13/2017 Status: F Source: JAY DNA BY PCR 7:45 AM [facility] REPOSITORY TYPE CODE TESTS RESULT OUT OF RANGE REFERENCE UNITS LAB L8200.1100 Negative Normal MRSA Negative RESULT Performed By: #### L8200.1000 #### [facility] [address] [place], [address] CONSULTATION Observed: 12/13/2017 Status: F Source: ANÍBAL 7:29 AM [facility] REPOSITORY [facility] Medical Records Department [address] [place] [address] Consultation 12/12/17 1029 MR#: [id number] Acct: [id number] Name: MANGO MCGARRY Rep #: [id number] : 1960 57 From: Dominick Denny DO PCP: Tio Parker MD Status: ADM IN Y Location: ICU ICU03-1 Reason for Consult Date of Consultation: 12/12/17 Reason for Consultation: Acute on chronic respiratory failure History of Present Illness: The patient is a 57-year-old male, with a history as outlined below, who presented to the emergency department by EMS on December 12 in an unresponsive state and in respiratory distress. Per report, the patient had been complaining of progressively worsening shortness of breath over the last week. The patient group home facility called EMS several days ago to have the patient transported to the hospital for evaluation. However, upon EMS arrival, the patient refused to be transported to the hospital. The patient appears to have a history of underlying asthma, heart failure, tobacco dependence and obstructive sleep apnea, for which he is noncompliant with outpatient medical recommendations. The patient follows with Dr. Campos in the pulmonary medicine clinic and was last seen by him in October. At that time, it was noted that the patient was noncompliant with the use of exertional supplemental oxygen and had refused and continued to refuse the use of nocturnal PAP therapy. The patient also continues to smoke cigarettes daily. It does appear that according to the hospital log of the patient's weight, he is put on a considerable amount since November 2017 when he was noted to be 346 pounds. On arrival to the hospital, he was documented to be 382 pounds. The patient's last surface echocardiogram dated June 2017 revealed mild segmental systolic dysfunction with an ejection fraction of 50%. The right ventricular systolic pressure was unable to be estimated. On presentation to the emergency department, the patient was noted to be afebrile and hypoxic. The patient was noted by ED staff to have agonal respirations. He was emergently intubated upon arrival due to state of encephalopathy and the need to protect his airway. Laboratory evaluation revealed no evidence of a leukocytosis. Coagulation profile was within normal limits. Chemistry profile revealed a chronically elevated serum bicarbonate of 41. Urinalysis was unremarkable. Arterial blood gas was obtained shortly after intubation revealed a pH of 7.23 with a PCO2 of 95 and PO2 of 77. The patient was subsequently transferred to the medical intensive care unit for ongoing management. 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/12) History of cardiac arrest (Chronic 06/22/17) Hypersomnia (Chronic) EMILIA (obstructive sleep apnea) (Chronic) History of cardiac catheterization (Chronic 02/25/16) 05/03/12 @ [facility] per [facility]; 02/21/2014 per [facility]N @ [facility] (no stents needed); 02/22 17 per DJN @ [facility] prior to PCI and GISSEL to proximal LAD; 06/28/17 after cardiac arrest, prior to GISSEL of mid LCX Nicotine dependence, cigarettes, uncomplicated (Chronic) Chronic systolic congestive heart failure (Chronic) Presence of stent in coronary artery (Chronic 06/29/17) PCI/stent LAD w/ 4.0 x 32 mm Promus 2012 ; PCI/GISSEL to Prox LAD w/ 4.0 x 20 mm Promus 02/25/16 for instent restenosis; PTCA/GISSEL to LCX 06/29/2017 Atherosclerotic heart disease of [place] coronary artery without angina pectoris (Chronic) PCI/stent LAD w/ 4.0 x 32 mm Promus 2012; PCI/GISSEL to Prox LAD w/ 4.0 x 20 mm Promus 02/25/16 for instent restenosis; PTCA/GISSEL to LCx in June 2017; Asthma-COPD overlap syndrome (Chronic) FEV1 46% (01/11/2017) DM2 (diabetes mellitus, type 2) (Chronic) NSTEMI (non-ST elevated myocardial infarction) (Chronic 12/21/16) 02/20/16 Venous stasis of lower extremity (Chronic) Ischemic cardiomyopathy (Chronic) EF of 35% on Cath in February of 2014; 50% per echo 06/21/2017 Medical History: Medical History (Last Updated 11/10/17 @ 12:14 by Brennon Maloney NP-C) Pure hypercholesterolemia (Chronic) E78.00 History of anterolateral myocardial infarction (Chronic) Onset Date: 05/03/12 I25.2 History of cardiac arrest (Chronic) Onset Date: 06/22/17 Z86.74 Hypersomnia (Chronic) G47.10 EMILIA (obstructive sleep apnea) (Chronic) G47.33 Nicotine dependence, cigarettes, uncomplicated (Chronic) F17.210 EMILIA (obstructive sleep apnea) (Suspected) G47.33 Acute respiratory failure with hypoxia and hypercapnia (Acute) J96.01, J96.02 Pneumococcal pneumonia (Acute) J13 Metabolic encephalopathy (Acute) G93.41 Heart failure with reduced ejection fraction (Acute) I50.20 Chronic systolic congestive heart failure (Chronic) I50.22 Atherosclerotic heart disease of [place] coronary artery without angina pectoris (Chronic) I25.10 PCI/stent LAD w/ 4.0 x 32 mm Promus 2012; PCI/GISSEL to Prox LAD w/ 4.0 x 20 mm Promus 02/25/16 for instent restenosis; PTCA/GISSEL to LCx in June 2017; Asthma-COPD overlap syndrome (Chronic) J44.9 FEV1 46% (01/11/2017) DM2 (diabetes mellitus, type 2) (Chronic) E11.9 NSTEMI (non-ST elevated myocardial infarction) (Chronic) Onset Date: 12/21/16 I21.4 02/20/16 Venous stasis of lower extremity (Chronic) I87.8 Ischemic cardiomyopathy (Chronic) I25.5 EF of 35% on Cath in February of 2014; 50% per echo 06/21/2017 Hypoxia R09.02 Chest pain (Resolved) R07.9 Respiratory failure, acute (Resolved) J96.00 Hyponatremia (Inactive) E87.1 Allergies adhesive tape Adverse Reaction (Verified 11/10/17 12:17) Rash Home Medications: Ambulatory Orders Medication Instructions Recorded Aspirin E.C. [Ecotrin] 81 mg PO DAILY@0800 12/27/15 Albuterol Aerosols [Ventolin 2.5 mg INHALATION TID 01/17/17 Surgical History: Surgical History (Last Updated 11/10/17 @ 12:18 by Mirna Patiño) History of cardiac catheterization (Chronic) Onset Date: 02/25/16 Z98.890 05/03/12 @ [place] per DJN; 02/21/2014 per DJN @ [facility] (no stents needed); 02/23 16 per DJN @ [facility] prior to PCI and GISSEL to proximal LAD; 06/28/17 after cardiac arrest, prior to GISSEL of mid LCX Presence of stent in coronary artery (Chronic) Onset Date: 06/29/17 Z95.5 PCI/stent LAD w/ 4.0 x 32 mm Promus 2012 ; PCI/GISSEL to Prox LAD w/ 4.0 x 20 mm Promus 02/25/16 for instent restenosis; PTCA/GISSEL to LCX 06/29/2017 Amputated great toe of left foot Z89.412 History of surgery on arm Z98.890 Surgery on left arm for infected muscle Surgical History: no surgical history Psychiatric History: No pertinent psych hx Smoking Status: Current every day smoker - *Family History Maternal Family History: Family History (Last Reviewed 11/10/17 @ 12:19 by Mirna Patiño) Mother Diabetes Heart disease History Items: No pertinent history, - - Unable to obtain as the patient is intubated and sedated Review of Systems Unable to obtain accurate/complete ROS d/t: Due to current intubation and mechanical ventilation status. Objective: The patient's most recent lab work, culture data and imaging studies have all been personally reviewed. - Physical Exam General: - - Intubated, sedated and mechanically ventilated. Currently tolerating assist control mode without issue. HEENT: Atraumatic, PERRLA, Normocephalic Oral: No Gingival or Mucosal Lesions/ Ulcerations, - - Endotracheal and OG tubes in place. Neck: Supple, No Nodes, Trachea Midline, - - Large neck circumference with redundant soft tissue. Lungs: Diminished, - - Coarse bronchial breath sounds bilaterally. Cardiovascular: Regular rate, Regular Rhythm, Normal S1, Normal S2, No murmurs Abdomen: Bowel Sounds Present, Soft, Non Tender, Obese Extremities: No clubbing, No cyanosis, - - Bilateral lower extremity pitting edema. Skin: - - Bilateral pretibial erythema Musculoskeletal: No Tenderness to Palpation of Joints or Extremities Lymphatic: No Cervical, Supraclavicular, or Inguinal Adenopathy Neurological: - - No focal deficits. Currently sedated with a RASS of -2. Vital Signs Temp Pulse Resp BP Pulse Ox 98.8 F 99 14 99/71 87 12/12/17 08:05 12/12/17 10:16 12/12/17 10:16 12/12/17 09:26 12/12/17 10:16 Oxygen Delivery Method Mechanical Ventilator Weight: 382 lb 3.094 oz Body Mass Index (BMI) 56.4 Laboratory Tests Past 24 Hrs WBC 8.9 RBC 4.09 L Hgb 11.9 L Hct 40.5 MCV 99.0 H MCH 29.1 MCHC 29.4 L WBC RBC Hgb Hct MCV MCH MCHC RDW Clinical Impression(s) from Imaging Studies Brain CT 12/12/17 07:34 IMPRESSION: No CT evidence of acute intracranial hemorrhage. Electronically Signed: Katya Tsang MD at 8:54 EST , Service support , Chest X-Ray 12/12/17 07:40 IMPRESSION: Cardiomegaly and mild pulmonary congestion. Electronically Signed: Katya Tsang MD at 8:02 EST , Service support , Assessment/Plan RECOMMENDATIONS: 1. Continue current ventilator settings and obtain repeat arterial blood gas in 1 hour. 2. Start IV Lasix. 3. Hold beta-lori due to decompensated heart failure status and tenuous hemodynamics. 4. Check BNP. 5. Check respiratory viral panel. 6. Start as needed aerosol treatments. 7. Start fentanyl for pain and minimize propofol utilization as tolerated. Maintain RASS of -1 to 1. 8. Maintain oxygen saturations 88-92%. 9. Hold Neurontin. 10. Continue appropriate ICU prophylaxis with subcutaneous heparin and Protonix. IMPRESSIONS: 1. Acute on chronic combined respiratory failure Likely secondary to decompensated heart failure in the setting of medical noncompliance, with superimposed bronchospastic airway disease and continued tobacco dependence likely contributing. Continue current supportive measures with invasive mechanical ventilatory support. Obtain repeat arterial blood gas in 1 hour. Tube feeds can be initiated from my perspective. We will plan to start the patient on scheduled IV diuretics. Wean FiO2 to maintain oxygen saturations 88-92%. Continue as needed bronchodilators. Will add fentanyl to the patient's sedation regimen in hopes of minimizing propofol utilization. 2. Acute on chronic systolic heart failure/history of ischemic cardiomyopathy The patient's weight is significantly elevated when compared to that documented from November. Plan to check BNP level. Scheduled diuretics will be started. Repeat surface echocardiogram is currently pending. Initial troponin was negative. Recommend holding beta-lori given decompensated heart failure state and tenuous hemodynamics. 3. Diabetes mellitus Start Accu-Cheks and sliding scale insulin coverage. 4. Obstructive sleep apnea The patient has a history of outpatient noncompliance with the use of nocturnal Pap therapy. He only utilizes supplemental oxygen on a nightly basis. 5. Ongoing tobacco dependence/super morbid obesity/history of medical noncompliance/hypertension Complicates care, management, recovery and prognosis. Nicotine replacement therapy can be offered while admitted to the hospital. TIME: 40 minutes of critical care time, independent of procedures, was spent addressing the patient's acute on chronic combined respiratory failure, acute on chronic systolic heart failure, obstructive sleep apnea, review of all data and collaboration with the care team. ([id number]) Code Visit 9xxxx: [id number] Critical care first hour 12/13/17 0729 <Electronically signed by Dominick Denny DO> Date Dominick Denny DO Cosigner Signature (if applicable): Date CC: Sebastien Weinberg MD; Dominick Denny D.O.; Tio Parker MD Signed Observed: 12/13/2017 Status: F Source: ANÍBAL CULTURE, SPUTUM 6:50 AM [facility] REPOSITORY Gram Stain Gram Stain 1+ White Blood Cells 1+ Gram positive cocci No Epithelial cells Resp. Culture NO NORMAL RESPIRATORY LYNNE ISOLATED. ORGANISM 1: Streptococcus pneumoniae Amount Growth Very Rare Streptococcus pneumoniae: REACTION Cefotaxime (meningitis) $ 1 I Cefotaxime (Other dx) $ 1 S (meningitis)Ceftriaxone $ 0.5 S Ceftriaxone (other dx) $ 0.5 S Clindamycin $$ >=1 R Erythromycin $ >=8 R Levofloxacin $ 0.5 S Moxifloxicin *NF 0.12 S Tetracycline NF 0.5 S Trimethoprim/Sulfametho $ 40 I Vancomycin $ <=0.12 S (NF) indicates non-formulary drug at [facility]. Approval by Infectious Disease Specialist required before non-formulary drugs may be ordered and/or dispensed. * CLSI guidelines does not recommend testing of cephalosporins. This interpretation is deduced from Beta-lactam/penicillin results. Performed By: #### M100.0800 #### [facility] [address] [place], [place], [address] BEDSIDE GLUCOSE Collected: 12/13/2017 Status: F Source: ANÍBAL 6:05 AM [facility] REPOSITORY TYPE CODE TESTS RESULT OUT OF REFERENCE UNITS RANGE LAB L501.080 70-110 mg/dL High BEDSIDE GLU 142 Result Comment: MANAGEMENT OF PATIENT CARE PER NURSING PROTOCOL Performed By: #### L501.080 #### [facility] Point of Care [address] [place] [address] BASIC METABOLIC Collected: 12/13/2017 Status: F Source: ANÍBAL PROFILE (BMP) 4:00 AM [facility] REPOSITORY TYPE CODE TESTS RESULT OUT OF RANGE REFERENCE UNITS LAB L501.0100 74-106 mg/dL High GLU 118 Result Comment: Fasting Glucose result from 100 to 125 mg/dL suggests IMPAIRED HOMEOSTASIS per A.D.A. criteria. Please note revised GLUCOSE reference range effective 2017. LAB L501.1000 7-18 mg/dL High BUN 22 LAB L501.1100 0.70-1.30 mg/dL Normal CREAT,SERUM 0.77 Result Comment: The validity of the calculated GFR AND GFRAA in patients over 70 years has not been determined. Clinical correlation is essential. LAB L501.1110 >60 mL/min Normal EST GFR 110 Result Comment: Non- GFR Calc LAB L501.1115 >60 mL/min Normal EST GFR - AA 133 Result Comment: GFR Calc LAB L501.1255 ml/min Normal Estimated CRCL 99.94 LAB L501.1300 10-20 RATIO High BUN/CRE 28.7 LAB L501.2200 8.5-10 mg/dL Low .1 CA 8.1 LAB L501.5300 136-14 mmol/L Normal 5 NA 143 LAB L501.5600 3.5-5. mmol/L Normal 1 K 4.0 LAB L501.5900 98-107 mmol/L Normal CL 98 LAB L501.6100 21.0-3 mmol/L High 2.0 CO2 39.0 LAB L501.6200 5-15 Normal GAP 6 Performed By: #### L500.2500 #### [facility] [address] [place], [address] CBC W/DIFF, AUTOMATED Collected: 12/13/2017 Status: F Source: JAY 4:00 AM [facility] REPOSITORY TYPE CODE TESTS RESULT OUT OF RANGE REFERENCE UNITS LAB L100.1000 4.4-11.0 K/mm3 Normal WBC 9.3 LAB L100.1200 4.6-6.2 M/mm3 Low RBC 3.63 LAB L100.1300 13.0-16.5 g/dl Low HGB 10.0 LAB L100.1400 40-54 % Low HCT 34.8 LAB L100.1500 80-94 fL High MCV 95.9 LAB L100.1600 27.0-32.0 pg Normal MCH 27.5 LAB L100.1700 32-36 g/gl Low MCHC 28.7 LAB L100.1810 11.6-14.6 % High RDW CV 16.0 LAB L100.1820 35.1-43.9 fl High RDW SD 55.5 LAB L100.1900 150-450 K/mm3 Normal PLT 208 LAB L100.2000 6.2-12.0 fl Normal MPV 10.0 LAB L100.2100 47-70 % High NEUT% 75.8 LAB L100.2200 19-41 % Low LY% 12.9 LAB L100.2300 0-10 % Normal MONO% 9.5 LAB L100.2400 0-5 % Normal EO% 1.3 LAB L100.2500 0-1 % Normal BASO% 0.2 LAB L100.2550 0.0-0.9 % Normal IM GRAN % 0.300 Result Comment: IG% - Immature Granulocytes (promyelocytes, myelocytes and metamyelocytes) > 1% indicates that a LEFT SHIFT is Present. LAB L100.2620 2.0-7.7 X10 3/uL Normal Absolute Neut 7.0 LAB L100.2720 0.83-4.51 X10 3/ul Normal Absolute Lymph 1.19 LAB L100.5500 ADEQ PLT Normal EST ADEQUATE LAB L100.7300 ANISO Normal RARE LAB L100.7800 Normal MACROCYTE RARE Performed By: #### L100.0100 #### [facility] [address] [place] [address], [id number] CPK TOTAL, CREATINE Collected: 12/13/2017 Status: F Source: ANÍBAL KINASE 4:00 AM [facility] REPOSITORY Order Comment: Comments: DC when propofol is d/c'd Comments: DC when propofol is d/c'd TYPE CODE TESTS RESULT OUT OF RANGE REFERENCE UNITS LAB L501.3620 39-308 U/L Normal CPK TOTAL 53 Performed By: #### L501.3620, L501.5000 #### [facility] [address] [place], [address] TRIGLYCERIDES Collected: 12/13/2017 Status: F Source: ANÍBAL 4:00 AM [facility] REPOSITORY Order Comment: Comments: DC when propofol is d/c'd Comments: DC when propofol is d/c'd TYPE CODE TESTS RESULT OUT OF RANGE REFERENCE UNITS LAB L501.5000 mg/dL Normal TRIG 149 Result Comment: The drugs N-Acetylcysteine and Metamizole may falsely depress this assay. Serum Triglycerides Reference Interval Normal <150 mg/dL Borderline high 150 - 199 mg/dL High 200 - 499 mg/dL Very High > or = 500 mg/dL Performed By: #### L501.3620, L501.5000 #### [facility] [address] [place], [address] BEDSIDE GLUCOSE Collected: 12/12/2017 Status: F Source: JAY 11:56 PM [facility] REPOSITORY TYPE CODE TESTS RESULT OUT OF REFERENCE UNITS RANGE LAB L501.080 70-110 mg/dL High BEDSIDE GLU 126 Result Comment: MANAGEMENT OF PATIENT CARE PER NURSING PROTOCOL Performed By: #### L501.080 #### [facility] Point of Care [address] [place] [address] EMERGENCY DEPARTMENT Observed: 12/12/2017 Status: F Source: JAY SUMMARY 5:46 PM [facility] REPOSITORY [facility] Medical Records Department [address] [place] [address] Emergency Department Summary 12/12/17 0835 MR#: [id number] Acct: [id number] Name: MANGO MCGARRY Rep #: [id number] : 1960 57 From: Mega Chacon MD PCP: Tio Parker MD Status: ADM IN - ER Visit Summary Date of Service: 12/12/17 Chief Complaint: Unresponsive History of Present Illness: The patient is a [address] Campos, Dr. Li, and Dr. Parker. Per ED staff and EMS patient has had shortness of breath for approximately 5 days[facility] and stated they were sending him in. When EMS arrived patient refused. This morning he had worsening of his status and did agree to be transported. On the way to the emergency department the patient became unresponsive. He still has a pulse, but he has agonal respirations and is being bagged by EMS upon arrival. Physical Examination: Vitals: 98.8, 126/65, 97, 18, 96% on bag valve mask. General: Well-nourished and well-developed. Head: Normocephalic atraumatic. Neck: Supple, no lymphadenopathy. No JVD. Nontender. Cardiovascular: Regular rate and rhythm. 2 out of 6 systolic murmur. Respiratory: Agonal respirations. There is moderate wheezing bilaterally with greatly decreased air movement. Abdominal: Soft, nontender, nondistended, normal bowel sounds. No guarding, rebound, or peritoneal signs. Back: Nontender. Extremities: Nontender, 2+ pitting edema of his lower extremities bilaterally with chronic venous stasis changes. Skin: Normal color, no rash. Neurologic: Unresponsive. Does withdraw to painful stimulus.. Test Results: EKG is sinus at 91 with diffuse T wave inversions. This is a change from July 01, 2017. Initial troponin 0 0.022. LFTs remarkable for a globulin of 4.5 and albumin 3.1. Chem-7 is marked for chloride of 96, BUN 25, calcium 7.9 glucose 146. CBC is more for hemoglobin 11.9, 7 neutrophils 75, lymphocytes 13. Chest x-ray shows cardiomegaly and pulmonary congestion. The ET tube is in good position. CT brain shows chronic changes. Emergency Department Course and Treatment: Patient was seen immediately upon arrival to the emergency department. He was intubated on the first attempt by myself. He was given etomidate and succinylcholine prior to this. He was then sedated with Dilaudid and Ativan IV and started on a propofol drip. Multiple attempts were made a Butler catheter. However, the patient has a phimosis and this was unsuccessful. Treatment Plan: Patient was discussed with Dr. Denny and will be discussed with the hospitalist. He will be admitted for further evaluation and treatment. Disposition: Admitted in critical condition. Impression: 1. Respiratory failure. 2. Intubation by ED physician. 3. CHF. 4. COPD. 5. Phimosis. 6. Critical care time 30 minutes. This note was generated with Innofide[employer] software. It may contain incorrect words, spelling, and punctuation that were not noted in review of the chart prior to signing ED Disposition - Plan for ED Patient: Chief Complaint: Unresponsive Referrals: Tio Parker MD [Primary Care Provider] - What to do if you have Problems For any increased pain, shortness of breath, bleeding, nausea or vomiting, chest pain, or any unexpected problems, contact your Primary Care Provider. Call [facility] ([phone]) or report to the closest Emergency Room. Call 911 if necessary. 12/12/17 1746 <Electronically signed by Mega Chacon MD> Date Mega Chacon MD Cosigner Signature (If Indicated): Date CC: Tio Parker MD CONSULTATION Observed: 12/12/2017 Status: F Source: JAY 5:42 PM [facility] REPOSITORY [facility] Medical Records Department [address] [place] [address] Consultation 12/12/17 1732 MR#: [id number] Acct: [id number] Name: MANGO MCGARRY Rep #: [id number] : 1960 57 From: Sebastien Weinberg MD PCP: Tio Parker MD Status: ADM IN Location: ICU ICU03-1 Reason for Consult Date of Consultation: 12/12/17 Reason for Consultation: Respiratory failure History of Present Illness: ALEJO MCGARRY, is a 57 M who [facility]. Apparently he had been getting short of breath over the last 5 days or so. Approximately 3 days ago there was a suggestion to bring him to the emergency room but the patient apparently refused. Today they called the emergency medical squad to get him and on the way here he had a respiratory arrest and had to be bagged. He was intubated when he got to the emergency room and has been in the intensive care unit. Cardiac enzymes were minimally abnormal and cardiology was called to assist in management. As you know, he is a morbidly obese diabetic gentleman with a history of hypertension, hypercholesterolemia, coronary disease s/p stent to his proximal LAD in 2012 and GISSEL to LCX in June 2017, and ischemic cardiomyopathy. He also has a history of tobacco abuse with about half pack per day. He wears 2 or 2.5 liters of oxygen at night. Patient had presented to [facility] emergency department after being found unresponsive in June 2017. This was attributed to acute on chronic hypoxic and hypercapnic respiratory failure. He required mechanical endotracheal intubation and ventilation. He was also diagnosed and treated for healthcare associated pneumonia and acute on chronic systolic congestive heart failure. He underwent a left heart catheterization that resulted and PTCA/GISSEL with IVUS guided to LCX. There was noted to be retrograde dissection of LCx. His RCA showed known occlusion. He underwent an echocardiogram that showed ejection fraction of 50%. He was diuresed and discharged back to assisted living [facility]. The patient apparently denied chest, arm, jaw, or neck discomfort. Pt denies symptoms of CHF, palpitations, lightheadedness, dizziness, near syncopal or syncopal episodes. Currently he is intubated in the intensive care unit. He has also been sedated and thus minimally responsive Past Medical History Allergies/Adverse Reactions: Allergies adhesive tape Adverse Reaction (Verified 11/10/17 12:17) Rash Home Medications: Ambulatory Orders Medication Instructions Recorded Aspirin E.C. [Ecotrin] 81 mg PO DAILY@0800 12/27/15 Albuterol Aerosols [Ventolin 2.5 mg INHALATION TID 01/17/17 Past Medical History (Chronic Problems): Chronic Problems (Last Updated 11/10/17 @ 12:14 by Brennon Maloney NP-C) Pure hypercholesterolemia (Chronic) History of anterolateral myocardial infarction (Chronic 05/03/12) History of cardiac arrest (Chronic 06/22/17) Hypersomnia (Chronic) EMILIA (obstructive sleep apnea) (Chronic) History of cardiac catheterization (Chronic 02/25/16) 05/03/12 @ [facility] per DJN; 02/21/2014 per DJN @ [facility] (no stents needed); 02/23 16 per DJN @ [facility] prior to PCI and GISSEL to proximal LAD; 06/28/17 after cardiac arrest, prior to GISSEL of mid LCX Nicotine dependence, cigarettes, uncomplicated (Chronic) Chronic systolic congestive heart failure (Chronic) Presence of stent in coronary artery (Chronic 06/29/17) PCI/stent LAD w/ 4.0 x 32 mm Promus 2012 ; PCI/GISSEL to Prox LAD w/ 4.0 x 20 mm Promus 02/25/16 for instent restenosis; PTCA/GISSEL to LCX 06/29/2017 Atherosclerotic heart disease of [place] coronary artery without angina pectoris (Chronic) PCI/stent LAD w/ 4.0 x 32 mm Promus 2012; PCI/GISSEL to Prox LAD w/ 4.0 x 20 mm Promus 02/25/16 for instent restenosis; PTCA/GISSEL to LCx in June 2017; Asthma-COPD overlap syndrome (Chronic) FEV1 46% (01/11/2017) DM2 (diabetes mellitus, type 2) (Chronic) NSTEMI (non-ST elevated myocardial infarction) (Chronic 12/21/16) 02/20/16 Venous stasis of lower extremity (Chronic) Ischemic cardiomyopathy (Chronic) EF of 35% on Cath in February of 2014; 50% per echo 06/21/2017 Surgical History: no surgical history Psychiatric History: No pertinent psych hx - *Family History Maternal Family History: Family History (Last Reviewed 11/10/17 @ 12:19 by Mirna Patiño) Mother Diabetes Heart disease History Items: No pertinent history, - - Unable to obtain as the patient is intubated and sedated Smoking Status: Current every day smoker Alcohol: None Drugs: None Review of Systems - Review of Systems General: Reports: Fatigue, Malaise, Weakness. Denies: Fever, Night Sweats HEENT: Denies: Vision Change Cardiovascular: Reports: Shortness of Breath, Shortness of Breath at Rest, Shortness of Breath with Exertion. Denies: Chest Discomfort, Orthopnea, PND, Peripheral Edema, Palpitations, Lightheadedness, Dizziness, Near Syncope, Syncope Respiratory: Denies: Cough, Sputum Production, Hemoptysis Gastrointestinal: Denies: Hematemesis, Hematochezia, Melena Genitourinary: Denies: Dysuria, Hematuria Muscoloskeletal: Denies: Myalgias Skin: Denies: Rash Neurological: Reports: Decreased Coordination. Denies: Dizziness Endocrine: Denies: Heat Intolerance Hematologic/ Lymphatic: Denies: Anemia Subjectve: Obese man intubated minimally responsive Objective: Vital Signs Temp Pulse Resp BP Pulse Ox 97.7 F L 92 14 83/41 L 93 12/12/17 10:51 12/12/17 13:45 12/12/17 13:45 12/12/17 10:51 12/12/17 13:45 Oxygen Flow Rate (L/min) 80 Oxygen Delivery Method Mechanical Ventilator Weight: 375 lb 7.155 oz Body Mass Index (BMI) 55.5 Intake and Output for Last 24 Hours Intake Total 50 / 50 Balance 50 / 50 General: Awake, Alert, Oriented x 3, Obese HEENT: PERRL, EOMI, Sclera Non Icteric Neck: Supple, Good ROM, No Lymph Node Enlargement Lungs: Clear to auscultation Cardiovascular: Regular Rhythm, Normal S1, Normal S2, No Murmurs, No Rubs, No Gallops Vascular: No Carotid Bruits, Normal Femoral Pulses, Normal Radial Pulses, Normal Dorsalis Pedal Pulse, Normal Posterior Tibial Pulses Abdomen: Bowel Sounds Present, Soft, Non Tender, No HSM, No Organomegaly Extremities: No Cyanosis, No Clubbing, Bilateral Edema +2 Neurological: No Focal Motor or Sensory Deficit 12/12/17 07:30: WBC 8.9, RBC 4.09 L, Hgb 11.9 L, Hct 40.5, MCV 99.0 H, MCH 29.1, MCHC 29.4 L, RDW 16.4 H, RDW Differential 58.1 H, Plt Count 256, MPV 9.6, Immature Gran % (Auto) 1.500 H, Neut % (Auto) 75.1 H, Lymph % (Auto) 13.1 L, [place] % (Auto) 9.0, Eos % (Auto) 1.0, Baso % (Auto) 0.3, Absolute Neuts (auto) 6.7, Total Counted Not Reportable 12/12/17 07:30: PT 13.8, INR 1.1, APTT 30.5 12/12/17 07:30: Sodium 138, Potassium 4.5, Chloride 96 L, Carbon Dioxide 41.0 H, Anion Gap 1 L, BUN 25 H, Creatinine 0.82, Est GFR (MDRD) Af Amer 124, Est GFR (MDRD) Non-Af 102, BUN/Creatinine Ratio 30.6 H, Glucose 146 H, Calcium 7.9 L, Total Bilirubin 0.40, Troponin I 0.022 12/12/17 07:30: Lactic Acid 1.2 12/12/17 07:30: B-Natriuretic Peptide 207.3 H 12/12/17 08:03: pH 7.23 L, Bicarbonate Actual 39.8 H, POC Total CO2 43, Base Excess 12 H, O2 Saturation 91 L, ABG pCO2 94.8 H*, ABG pO2 77, Elizabeth Test POS 12/12/17 09:05: Urine Color Yellow, Urine Clarity Sl. Cloudy, Urine pH 6.0, Ur Specific Dora 1.020, Urine Protein 30 H, Urine Glucose (UA) Normal, Urine Ketones Negative, Urine Occult Blood Negative, Urine Nitrite Negative, Urine Bilirubin Negative, Urine Urobilinogen Normal, Ur Leukocyte Esterase Negative, Urine RBC 0 SEEN, Urine WBC 0 SEEN 12/12/17 12:30: Troponin I 0.035 12/12/17 13:11: pH 7.38, Bicarbonate Actual 43.6 H, POC Total CO2 46, Base Excess 18 H, O2 Saturation 90 L, ABG pCO2 73.2 H*, ABG pO2 62 L, Elizabeth Test POS 12/12/17 16:10: Troponin I 0.032 Rhythm: EKG: Sinus tachycardia Assessment/Plan 1. Atherosclerosis of [place] coronary artery of [place] heart without angina pectoris I25.10 PCI/stent LAD w/ 4.0 x 32 mm Promus 2012; PCI/GISSEL to Prox LAD w/ 4.0 x 20 mm Promus 02/25/16 for instent restenosis; PTCA/GISSEL to LCx in June 2017; The patient has known history of the prior. It however does not appear that the current episode is secondary to an acute coronary ischemic event. There is mild troponin elevation but this is likely secondary to demand ischemia. In the absence of significant EKG changes and only mild troponin elevation I do not think there is a reason to pursue further invasive workup at this time. Recommendation would be to continue supportive therapy. 2. Acute on chronic respiratory failure * The exact precipitating events are not entirely clear at this time. His most recent echocardiogram had demonstrated an ejection fraction of approximately 60%. No obvious wall motion abnormality was noted but this is a suboptimal study. * Will continue current medical therapy as per the pulmonary service. * Diuresis should also be instituted 3. Hypertension * His blood pressure medications will be adjusted as appropriate * 4 Hyperlipidemia * Continue aggressive medical therapy. Thank you for allowing me to participate in the care of your patient. Please don't hesitate to call if any issues arise 12/12/17 4280 <Electronically signed by Sebastien Weinberg MD> Date Sebastien Weinberg MD Cosigner Signature (if applicable): Date CC: Sebastien Weinberg MD; Dominick Denny D.O.; Tio Parker MD Signed ECHO, COMPLETE W/ Observed: 12/12/2017 Status: F Source: JAY CONTRAST 4:38 PM [facility] REPOSITORY [facility] Cardiovascular Services [address] [place] [address] Echo Complete W/ Contrast 12/12/17 1507 MR#: [id number] Acct: [id number] Name: MANGO MCGARRY Rep #: [id number] : 1960 57 From: Sebastien Weinberg MD Attending Dr: Gina Elena MD Status: ADM IN Ordering Dr: Gina Elena MD Date: 12/12/17 Location: ICU Sex: M C Admitted: 12/12/17 Reason For Study: CHF Procedure This was a 2D Doppler, Color Flow transthoracic echocardiogram. The study was technically limited. The study was technically difficult. Contrast injection was performed. Exam performed portable in ICU/CCU. Left Ventricle Normal LV size. Left ventricular systolic function is normal. The estimated ejection fraction is 60 %. No regional wall motion abnormalities noted. Right Ventricle The right ventricle is not well visualized. Atria The left atrium is not well visualized. Mitral Valve Mitral valve not well visualized. Tricuspid Valve The tricuspid valve is not well visualized. Aortic Valve The aortic valve is not well visualized. Great Vessels Normal aortic root. Pericardium/Pleural No pericardial effusion. Medication Diluted definity 5.0ml given slow IV push to enhance endocardial definition. MMode/2D Measurements AND Calculations LVIDd: 5.4 cm IVSd: 1.0 cm Ao root diam: 3.8 cm LVIDs: 4.3 cm LVPWd: 1.0 cm FS: 20.0 % LAV(MOD-bp): 78.3 ml LA A4 area: 25.6 cm2 LA dimension(2D): 4.4 cm LAV(MOD-bp) Indexed: 28.8 ml/m2 LAV(MOD-sp2): 76.8 ml LAV(MOD-sp4): 72.1 ml Doppler Measurements AND Calculations MV E max jake: 99.0 cm/sec Lat Peak E' Jake: 8.3 cm/sec Med Peak E' Jake: 8.5 cm/sec MV A max jake: 88.9 cm/sec E/E' lat: 12.0 E/E' med: 11.7 MV E/A: 1.1 Ao V2 max: 124.9 cm/sec LV V1 max: 86.5 cm/sec PA V2 max: 78.2 cm/sec Ao max P.2 mmHg LV V1 max P.0 mmHg Interpretation Summary Normal LV size. Left ventricular systolic function is normal. The estimated ejection fraction is 60 %. Contrast injection was performed. The study was technically limited. The study was technically difficult. Ordering Physician: Gina Elena Referring Physician: Tio Parker Performed By: Mayra Muller, SEDA, RVT 12/12/17 1638 Date Sebastien Weibnerg MD CC: Gina Elena MD; Tio Parker MD Date Dictated: 12/12/17 1507 Date Transcribed: 12/12/171637 Clerk Cashier: Signed HISTORY AND PHYSICAL Observed: 12/12/2017 Status: F Source: JAY EXAM 4:27 PM [facility] REPOSITORY [facility] Medical Records Department [address] [facility] [address] History and Physical 12/12/17 0906 MR#: [id number] Acct: [id number] Name: MANGO MCGARRY Rep #: [id number] : 1960 57 From: Gina Elena MD PCP: Tio Parker MD Status: ADM IN Y Location: ICU ICU03-1 History of Present Illness Date of Admission: 12/12/17 Chief Complaint: shortness of breath The patient is a 57 year old M with an extensive past medical history as listed below. Patient was admitted through the ED on 12/12/2017 after he had complained in his jail shortness of breath for the past 5 days. The jail call the ED about 3 days ago and wanted to send him into the ED but patient refused when EMS arrived. This morning he had worsening of his shortness of breath and agreed to be brought to the ED. On the way to the ED in the EMS, he went into respiratory arrest was being bagged by EMS upon arrival. On arrival in the ED, his vitals were 98.8 and blood pressure was 126/65 and he was saturating 96% on room air. EKG done in the ED showed sinus rhythm with diffuse T wave inversions and initial troponin was 0.022. Chest x-ray showed cardiomegaly and pulmonary congestion. He was emergently intubated in the ED and admitted to be managed for respiratory arrest due to 2 CHF exacerbation. I was unable to take history from patient does at time of review because he was intubated and sedated and was poorly responsive. History was as per ED notes. [] 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/12) History of cardiac arrest (Chronic 06/22/17) Hypersomnia (Chronic) EMILIA (obstructive sleep apnea) (Chronic) History of cardiac catheterization (Chronic 02/25/16) 05/03/12 @ [facility] per DJN; 02/21/2014 per DJN @ [facility] (no stents needed); 02/23 16 per DJN @ [facility] prior to PCI and GISSEL to proximal LAD; 06/28/17 after cardiac arrest, prior to GISSEL of mid LCX Nicotine dependence, cigarettes, uncomplicated (Chronic) Chronic systolic congestive heart failure (Chronic) Presence of stent in coronary artery (Chronic 06/29/17) PCI/stent LAD w/ 4.0 x 32 mm Promus 2012 ; PCI/GISSEL to Prox LAD w/ 4.0 x 20 mm Promus 02/25/16 for instent restenosis; PTCA/GISSEL to LCX 06/29/2017 Atherosclerotic heart disease of [place] coronary artery without angina pectoris (Chronic) PCI/stent LAD w/ 4.0 x 32 mm Promus 2012; PCI/GISSEL to Prox LAD w/ 4.0 x 20 mm Promus 02/25/16 for instent restenosis; PTCA/GISSEL to LCx in June 2017; Asthma-COPD overlap syndrome (Chronic) FEV1 46% (01/11/2017) DM2 (diabetes mellitus, type 2) (Chronic) NSTEMI (non-ST elevated myocardial infarction) (Chronic 12/21/16) 02/20/16 Venous stasis of lower extremity (Chronic) Ischemic cardiomyopathy (Chronic) EF of 35% on Cath in February of 2014; 50% per echo 06/21/2017 Medical History: Medical History (Last Updated 11/10/17 @ 12:14 by SOURAV Hernandez) Pure hypercholesterolemia (Chronic) E78.00 History of anterolateral myocardial infarction (Chronic) Onset Date: 05/03/12 I25.2 History of cardiac arrest (Chronic) Onset Date: 06/22/17 Z86.74 Hypersomnia (Chronic) G47.10 EMILIA (obstructive sleep apnea) (Chronic) G47.33 Nicotine dependence, cigarettes, uncomplicated (Chronic) F17.210 EMILIA (obstructive sleep apnea) (Suspected) G47.33 Acute respiratory failure with hypoxia and hypercapnia (Acute) J96.01, J96.02 Pneumococcal pneumonia (Acute) J13 Metabolic encephalopathy (Acute) G93.41 Heart failure with reduced ejection fraction (Acute) I50.20 Chronic systolic congestive heart failure (Chronic) I50.22 Atherosclerotic heart disease of [place] coronary artery without angina pectoris (Chronic) I25.10 PCI/stent LAD w/ 4.0 x 32 mm Promus 2012; PCI/GISSEL to Prox LAD w/ 4.0 x 20 mm Promus 02/25/16 for instent restenosis; PTCA/GISSEL to LCx in June 2017; Asthma-COPD overlap syndrome (Chronic) J44.9 FEV1 46% (01/11/2017) DM2 (diabetes mellitus, type 2) (Chronic) E11.9 NSTEMI (non-ST elevated myocardial infarction) (Chronic) Onset Date: 12/21/16 I21.4 02/20/16 Venous stasis of lower extremity (Chronic) I87.8 Ischemic cardiomyopathy (Chronic) I25.5 EF of 35% on Cath in February of 2014; 50% per echo 06/21/2017 Hypoxia R09.02 Chest pain (Resolved) R07.9 Respiratory failure, acute (Resolved) J96.00 Hyponatremia (Inactive) E87.1 Allergies adhesive tape Adverse Reaction (Verified 11/10/17 12:17) Rash Home Medications: Ambulatory Orders Medication Instructions Recorded Aspirin E.C. [Ecotrin] 81 mg PO DAILY@0800 12/27/15 Albuterol Aerosols [Ventolin 2.5 mg INHALATION TID 01/17/17 Surgical History: Surgical History (Last Updated 11/10/17 @ 12:18 by Mirna Patiño) History of cardiac catheterization (Chronic) Onset Date: 02/25/16 Z98.890 05/03/12 @ [place] per DJN; 02/21/2014 per DJN @ [facility] (no stents needed); 02/22 17 per DJN @ [facility] prior to PCI and GISSEL to proximal LAD; 06/28/17 after cardiac arrest, prior to GISSEL of mid LCX Presence of stent in coronary artery (Chronic) Onset Date: 06/29/17 Z95.5 PCI/stent LAD w/ 4.0 x 32 mm Promus 2012 ; PCI/GISSEL to Prox LAD w/ 4.0 x 20 mm Promus 02/25/16 for instent restenosis; PTCA/GISSEL to LCX 06/29/2017 Amputated great toe of left foot Z89.412 History of surgery on arm Z98.890 Surgery on left arm for infected muscle Surgical History: no surgical history Psychiatric History: No pertinent psych hx Smoking Status: Current every day smoker - *Family History Maternal Family History: Family History (Last Reviewed 11/10/17 @ 12:19 by Mirna Patiño) Mother Diabetes Heart disease History Items: No pertinent history, - - Unable to obtain as the patient is intubated and sedated Review of Systems Unable to obtain accurate/complete ROS d/t: patient intubated and sedated VTE Information - Inpt Only VTE Present on Admission: No VTE Pharm Prophylaxis ordered?: Yes - Physical Exam General: - - patient intubated, sedated RASS score: -3 HEENT: Atraumatic, PERRLA, EOMI, Normocephalic Oral: Moist Mucosa Neck: Supple, No JVD, Negative Carotid Bruits Lungs: Normal air movement, - - coarse crackles in mid and lower lung vences bilaterally Cardiovascular: Regular rate, Regular Rhythm, Normal S1, Normal S2, No murmurs Abdomen: Bowel Sounds Present, Soft, Non Tender, Non-Distended, No Hepato-splenomegaly Extremities: No clubbing, No cyanosis, Capillary Refill Less than 3 Seconds, - - bilateral pitting pedal edema- +2. Mild erythema over anterior shins bilaterally, minimal differential warmth Skin: No rashes, No breakdown Musculoskeletal: No Tenderness to Palpation of Joints or Extremities Lymphatic: No Cervical, Supraclavicular, or Inguinal Adenopathy Neurological: - - patient intubated, sedated with propofol, RASS score: -4 Psych/Mental Status: - - sedated, intubated, RASS score -4 Vital Signs Temp Pulse Resp BP Pulse Ox 98.8 F 89 14 97/69 95 12/12/17 08:05 12/12/17 08:52 12/12/17 08:52 12/12/17 08:52 12/12/17 08:52 Oxygen Delivery Method Mechanical Ventilator Weight: 382 lb 3.094 oz Body Mass Index (BMI) 56.4 Laboratory Tests Past 24 Hrs WBC 8.9 RBC 4.09 L Hgb 11.9 L Hct 40.5 MCV 99.0 H MCH 29.1 MCHC 29.4 L RDW 16.4 H RDW Differential 58.1 H WBC RBC Hgb Hct MCV MCH MCHC RDW RDW Differential Plt Count MPV Immature Gran % (Auto) Assessment/Plan All Active Problems (Last Updated 11/10/17 @ 12:14 by Brennon Maloney NP-C) Acute respiratory failure with hypoxia and hypercapnia (Acute) Pneumococcal pneumonia (Acute) Metabolic encephalopathy (Acute) Heart failure with reduced ejection fraction (Acute) Chest pain (Resolved) Respiratory failure, acute (Resolved) 1. Acute hypoxic and hyeprcarbic respiratory failure due to possible CHF exacerbation * With complaint of shortness of breath for the past 5 days. Acutely worsened today. * Went into respiratory arrest in the EMS on his way he. ABGs done showed pH of 7.23 with PCO2 of about 94. * Intubated in the ED. Sedated with propofol. RASS score is -4. * admit to ICU * wastewater supervisor consult * CXR showed pulmonary congestion; initial troponin was 0.022; will cycle * BNP was only 207; hoiwever in light of his morbid obesity, it will fit in with heart failure * vent settings as per wastewater supervisor * 2D echo * hold beta lori due to decompensated heart failure and hypotension * diurese with IV lasix 40mg bid * wean off propofol to maintain RASS at 0 to -1 * breathing treatment * 2. ACute CHF exacerbation * History of chronic heart failure with reduced ejection fraction. * has history of ischemic cardiomyopathy * last echo(06/24): EF of 50%, unable to assess diastolic function. Mild segmental systolic dysfunction.left atrium mildly enlarged. Unable to assess PA systolic pressure * diurese with IV lasix 40mg bid. * 3. Diabetes mellitus: on ISS. accuchecks ACHS.will monitor 4. EMILIA: currently on ventilator due to respiratory failure 5. Hypertension: on losartan and carvedilol. WIll hold o/a of possible cardiogenic shock 6;. MOrbid obesity: BMI >50. This complicates medical care. DVT prophylaxis: heparin GI prophylaxis: famotidine Code Visit Inpatient E AND M: [id number] Init Hosp L3 11/05/18 1627 <Electronically signed by Gina Elena MD> Date Gina Elena MD Cosigner Signature: Date (if applicable) CC: Gina Elena MD; Tio Parker MD Signed BEDSIDE GLUCOSE Collected: 12/12/2017 Status: F Source: JAY 4:27 PM [facility] REPOSITORY TYPE CODE TESTS RESULT OUT OF RANGE REFERENCE UNITS LAB L501.080 70-110 mg/dL Normal BEDSIDE GLU 109 Result Comment: MANAGEMENT OF PATIENT CARE PER NURSING PROTOCOL Performed By: #### L501.080 #### [facility] Point [facility] [address] [place] [address] TROPONIN-I Collected: 12/12/2017 Status: F Source: JAY 4:10 PM [facility] REPOSITORY Order Comment: 'TROP' Serial specimen #1, #2 or #3: 3 TYPE CODE TESTS RESULT OUT OF RANGE REFERENCE UNITS LAB L501.4010 <0.045 ng/mL Normal 0.032 TROPONIN-I Result Comment: TROPONIN-I EXPECTED VALUES <0.045 Negative 0.045 - 0.590 Consistent with Cardiac Damage > OR = 0.600 Critical Value Not every elevated troponin is indicative of AR. These values should be used with clinical judgement in examining the patient's clinical picture for diagnosis. To establish a diagnosis of AR versus myocardial injury, there must be a demonstrated rise and/or fall in the troponin values, in addition to ischemic symptoms, EKG changes, new regional wall motion abnormality, and/or angiographical evidence. PLEASE NOTE: REFERENCE RANGES EDITED 17 Performed By: #### L501.4010 #### [facility] [address] [place], [place], [address] BLOOD GASES BY [facility] Collected: 12/12/2017 Status: F Source: JAY 1:11 PM [facility] REPOSITORY TYPE CODE TESTS RESULT OUT OF RANGE REFERENCE UNITS LAB L9000.9990 Normal BLD GAS TYPE ART LAB L9001.1000 Normal SITE L Radial LAB L9001.1010 Normal ELIZABETH TEST POS LAB L9001.1048 Normal Mode A-C LAB L9001.1050 O2 Normal Delivery Dev Vent LAB L9001.1060 MV Normal 7.00 LAB L9001.1065 Vt Normal 450 LAB L9001.1070 RR Normal 14 LAB L9001.1074 Normal FI02 70 LAB L9001.1076 Normal PEEP 8 LAB L9001.1104 Normal Results To ICU LAB L9001.1105 Normal Time Given 1305 LAB L9001.1110 7.35-7.45 pH Normal - I-STAT 7.38 LAB L9001.1210 35-45 mmHg High alert pCO2 - ISTAT 73.2 LAB L9001.1310 75-100 mmHG Low PO2 I-STAT 62 LAB L9001.2300 22-26 mmol/L High HCO3 ISTAT 43.6 LAB L9001.2400 -2 to +2 mmol/L High BE ISTAT 18 LAB L9001.2415 mmol/L Normal TOTAL CO2 46 ISTAT LAB L9001.2425 95-99 % Low SO2 ISTAT 90 Performed By: #### L9000.0800 #### [facility] Point of Care [address] [place] [address] TROPONIN-I Collected: 12/12/2017 Status: F Source: ANÍBAL 12:30 PM [facility] REPOSITORY Order Comment: 'TROP' Serial specimen #1, #2 or #3: 2 TYPE CODE TESTS RESULT OUT OF RANGE REFERENCE UNITS LAB L501.4010 <0.045 ng/mL Normal 0.035 TROPONIN-I Result Comment: TROPONIN-I EXPECTED VALUES <0.045 Negative 0.045 - 0.590 Consistent with Cardiac Damage > OR = 0.600 Critical Value Not every elevated troponin is indicative of AR. These values should be used with clinical judgement in examining the patient's clinical picture for diagnosis. To establish a diagnosis of AR versus myocardial injury, there must be a demonstrated rise and/or fall in the troponin values, in addition to ischemic symptoms, EKG changes, new regional wall motion abnormality, and/or angiographical evidence. PLEASE NOTE: REFERENCE RANGES EDITED 17 Performed By: #### L501.4010 #### [facility] [address] [place], [address] BEDSIDE GLUCOSE Collected: 12/12/2017 Status: F Source: ANÍBAL 12:21 PM [facility] REPOSITORY TYPE CODE TESTS RESULT OUT OF RANGE REFERENCE UNITS LAB L501.080 70-110 mg/dL Normal BEDSIDE GLU 98 Result Comment: Dr Orders Followed Dextrose 50 Given MANAGEMENT OF PATIENT CARE PER NURSING PROTOCOL Performed By: #### L501.080 #### [facility] Point of Care [address] [place], [place] [address] Observed: 12/12/2017 Status: F Source: NAÍBAL RESPIRATORY PANEL 11:35 AM [facility] MOLECULAR REPOSITORY RP PANEL ADENOVIRUS Not Detected HUMAN METAPHNEUMO Not Detected INFLUENZA A Not Detected INFLUENZA A (SUBTYPE H1) Not Detected INFLUENZA A (SUBTYPE H3) Not Detected INFLUENZA B Not Detected PARAINFLUENZA 1 Not Detected PARAINFLUENZA 2 Not Detected PARAINFLUENZA 3 Not Detected PARAINFLUENZA 4 Not Detected RHINOVIRUS Not Detected RSV A Not Detected RSV B Not Detected NAAT METHOD Testing was performed using nucleic acid amplification Performed By: #### M100.638 #### [facility] [address] [place], [place], [address] URINALYSIS, COMPLETE Collected: 12/12/2017 Status: F Source: ANÍBAL 9:05 AM [facility] REPOSITORY Order Comment: Has pt arrived? Y How was Urine Obtained? DUST MILL OPERATOR TO SPECIFY TYPE CODE TESTS RESULT OUT OF RANGE REFERENCE UNITS LAB L400.3000 Yellow COLOR Normal Yellow LAB L400.3050 Clear Normal CLARITY Sl. Cloudy LAB L400.3200 Normal mg/dl Normal GLUCOSE, UR Normal LAB L400.3300 Negative mg/dL Normal BILIRUBIN URINE Negative LAB L400.3400 Negative mg/dl Normal KETONE UR Negative LAB L400.3465 1.002-1.030 Normal SP.GR. DIPSTX 1.020 LAB L400.3550 5.0 - 8.0 pH UR Normal 6.0 LAB L400.3600 Negative mg/dl High PROT 30 DIPSTX LAB L400.3700 Normal mg/dl Normal UROBILI Normal LAB L400.3750 Negative Normal NITRITE UR Negative LAB L400.3780 Negative /ul Normal OCCULT BLOOD-UR Negative LAB L400.3800 Negative /ul LEUK Normal ESTERASE Negative LAB L400.4050 0-5 /hpf WBC 0 Normal SEEN LAB L400.4100 0-5 /hpf 0 Normal RBC-UA SEEN LAB L400.4150 0-5 /hpf SQUAM Normal EPI 0-5 SEEN LAB L400.4300 None Seen /hpf Normal BACTERIA RARE LAB L400.4350 <or=2+ /hpf 0 Normal MUCUS, URINE SEEN Performed By: #### L400.0001 #### [facility] [address] [place], [address] Observed: 12/12/2017 Status: F Source: ANÍBAL CULTURE, URINE 9:05 AM [facility] REPOSITORY Has pt arrived? Y Urine Culture Culture exhibits no growth. Performed By: #### M100.0650 #### [facility] [place], [address] Observed: 12/12/2017 Status: F Source: ANÍBAL CULTURE, BLOOD (WB) 8:20 AM [facility] REPOSITORY BC No growth in 5 days. Performed By: #### M200.1000 #### [facility] [address] [place], [address] BLOOD GASES BY [facility] Collected: 12/12/2017 Status: F Source: ANÍBAL 8:03 AM [facility] REPOSITORY TYPE CODE TESTS RESULT OUT OF RANGE REFERENCE UNITS LAB L9000.9990 Normal BLD GAS TYPE ART LAB L9001.1000 Normal SITE R Radial LAB L9001.1010 Normal ELIZABETH TEST POS LAB L9001.1048 Normal Mode A-C LAB L9001.1050 O2 Normal Delivery Dev Vent LAB L9001.1060 MV Normal 5.00 LAB L9001.1065 Vt Normal 450 LAB L9001.1070 RR Normal 14 LAB L9001.1074 Normal FI02 100 LAB L9001.1076 Normal PEEP 8 LAB L9001.1104 Normal Results To ED LAB L9001.1105 Normal Time Given 802 LAB L9001.1110 7.35-7.45 Low pH - I-STAT 7.23 LAB L9001.1210 35-45 mmHg High alert pCO2 - ISTAT 94.8 LAB L9001.1310 75-100 mmHG Normal PO2 I-STAT 77 LAB L9001.2300 22-26 mmol/L High HCO3 ISTAT 39.8 LAB L9001.2400 -2 to +2 mmol/L High BE ISTAT 12 LAB L9001.2415 mmol/L Normal TOTAL CO2 43 ISTAT LAB L9001.2425 95-99 % Low SO2 ISTAT 91 Performed By: #### L9000.0800 #### [facility] Point of Care [address] [place] [address] Observed: 12/12/2017 Status: F Source: JAY CULTURE, SPUTUM 7:45 AM [facility] REPOSITORY Gram Stain Acceptable Specimen? Yes (<25 Epithelial cells per/lpf) Gram Stain 3+ White Blood Cells 1+ Epithelial cells 4+ Gram positive cocci in chains 2+ Gram positive rods Resp. Culture Mixed normal respiratory lynne. No Haemophilus, Streptococcus pneumoniae, beta-hemolytic Streptococcus or Staphylococcus aureus isolated. ORGANISM 1: Yeast Amount Growth Rare Performed By: #### M100.0800 #### [facility] [address] [place], [address] BRAIN/HEAD WITHOUT Observed: 12/12/2017 Status: F Source: JAY CONTRAST 7:35 AM [facility] REPOSITORY [facility] Imaging Services [address] [place] [address] Brain/Head without Contrast MR#: [id number] Acct: [id number] Name: MANGO MCGARRY Rep #: [id number] : 1960 M 57 From: Katya Tsang MD PCP: Tio Parker MD Status: REG ER Study: Brain/Head without Contrast Date of Exam: 12/12/17 Exam# [id number] Ordering Dr: Mega Chacon MD STUDY: CT BRAIN WITHOUT CONTRAST REASON FOR EXAM: Male, 57 years old. Unresponsive patient. RADIATION DOSAGE (If Supplied By Facility): CTDIvol = ( 44.99 ) mGy, DLP = ( 863.60 ) mGycm TECHNIQUE: Transaxial CT imaging of the brain was performed without administration of intravenous contrast material. Multiplanar reformations are submitted for interpretation. Individualized dose optimization techniques were used for this CT. COMPARISON: CT of the head dated June 20, 2017. FINDINGS: Normal soft tissue structures. Normal calvarium. Patient is intubated. Normal size ventricles and extra-axial spaces for the patient's age. There are areas of decreased attenuation within the white matter tracts of the supratentorial brain, consistent with microvascular disease changes. Normal basal ganglia and thalami. Normal brainstem. Normal cerebellum. There is no intracranial hemorrhage. There is patchy atherosclerotic calcification of the intracranial arteries. There is mucoperiosteal thickening in the ethmoid sinuses. CT/Brain/Head without Contrast IMPRESSION: No CT evidence of acute intracranial hemorrhage. Electronically Signed: Katya Tsang MD at 8:54 EST , Service support , CC: Mega Chacon MD; Tio Parker MD Clerk Cashier: Signed PROTHROMBIN TIME W/INR Collected: 12/12/2017 Status: F Source: ANÍBAL 7:30 AM [facility] REPOSITORY TYPE CODE TESTS RESULT OUT OF RANGE REFERENCE UNITS LAB L300.4150 11.7-14.9 SECONDS Normal PROTIME 13.8 LAB L300.4200 Normal INR 1.1 Performed By: #### L300.3900, L300.4310 #### [facility] [address] [place], [place], [address] PARTIAL THROMBOPLAST Collected: 12/12/2017 Status: F Source: ANÍBAL TIME 7:30 AM [facility] REPOSITORY TYPE CODE TESTS RESULT OUT OF RANGE REFERENCE UNITS LAB L300.4310 24.1-36.2 Seconds Normal PTT 30.5 Performed By: #### L300.3900, L300.4310 #### [facility] [address] [place], [address] CBC W/DIFF, AUTOMATED Collected: 12/12/2017 Status: F Source: ANÍBAL 7:30 AM [facility] REPOSITORY TYPE CODE TESTS RESULT OUT OF RANGE REFERENCE UNITS LAB L100.1000 4.4-11.0 K/mm3 Normal WBC 8.9 LAB L100.1200 4.6-6.2 M/mm3 Low RBC 4.09 LAB L100.1300 13.0-16.5 g/dl Low HGB 11.9 LAB L100.1400 40-54 % Normal HCT 40.5 LAB L100.1500 80-94 fL High MCV 99.0 LAB L100.1600 27.0-32.0 pg Normal MCH 29.1 LAB L100.1700 32-36 g/gl Low MCHC 29.4 LAB L100.1810 11.6-14.6 % High RDW CV 16.4 LAB L100.1820 35.1-43.9 fl High RDW SD 58.1 LAB L100.1900 150-450 K/mm3 Normal PLT 256 LAB L100.2000 6.2-12.0 fl Normal MPV 9.6 LAB L100.2100 47-70 % High NEUT% 75.1 LAB L100.2200 19-41 % Low LY% 13.1 LAB L100.2300 0-10 % Normal MONO% 9.0 LAB L100.2400 0-5 % Normal EO% 1.0 LAB L100.2500 0-1 % Normal BASO% 0.3 LAB L100.2550 0.0-0.9 % High IM GRAN % 1.500 Result Comment: IG% - Immature Granulocytes (promyelocytes, myelocytes and metamyelocytes) > 1% indicates that a LEFT SHIFT is Present. LAB L100.2620 2.0-7.7 X10 3/uL Normal Absolute Neut 6.7 LAB L100.2720 0.83-4.51 X10 3/ul Normal Absolute Lymph 1.17 Performed By: #### L100.0100 #### [facility] [address] [place], [address] COMPREHENSIVE METABOLIC Collected: 12/12/2017 Status: F Source: ANÍBAL GARCIA 7:30 AM [facility] REPOSITORY TYPE CODE TESTS RESULT OUT OF RANGE REFERENCE UNITS LAB L501.0100 74-106 mg/dL High GLU 146 Result Comment: Fasting Glucose result greater than or equal to 126 mg/dL suggests DIABETES MELLITUS per A.D.A. criteria. Please note revised GLUCOSE reference range effective 2017. LAB L501.1000 7-18 mg/dL High BUN 25 LAB L501.1100 0.70-1.30 mg/dL Normal CREAT,SERUM 0.82 Result Comment: The validity of the calculated GFR AND GFRAA in patients over 70 years has not been determined. Clinical correlation is essential. LAB L501.1110 >60 mL/min Normal EST GFR 102 Result Comment: Non- GFR Calc LAB L501.1115 >60 mL/min Normal EST GFR - AA 124 Result Comment: GFR Calc LAB L501.1255 ml/min Normal Estimated CRCL 97.00 LAB L501.1300 10-20 RATIO High BUN/CRE 30.6 LAB L501.1500 6.4-8. g/dL Normal 2 T PROT 7.6 LAB L501.1800 3.2-5. g/dL Low 0 ALB 3.1 LAB L501.1950 2.2-4. g/dL High 2 GLOB 4.5 LAB L501.2000 0.9-2. RATIO Low 4 A/G 0.7 LAB L501.2200 8.5-10 mg/dL Low .1 CA 7.9 LAB L501.4100 15-37 U/L Normal AST 15 LAB L501.4305 45-117 U/L Normal ALK P 87 LAB L501.4405 16-61 U/L Normal ALT 33 LAB L501.4600 0.20-1 mg/dL Normal .00 T BILI 0.40 LAB L501.5300 136-14 mmol/L Normal 5 NA 138 LAB L501.5600 3.5-5. mmol/L Normal 1 K 4.5 LAB L501.5900 98-107 mmol/L Low CL 96 LAB L501.6100 21.0-3 mmol/L High 2.0 CO2 41.0 LAB L501.6200 5-15 Low GAP 1 Performed By: #### L500.4050, L501.4010 #### [facility] [address] [place], [address] TROPONIN-I Collected: 12/12/2017 Status: F Source: ANÍBAL 7:30 AM [facility] REPOSITORY TYPE CODE TESTS RESULT OUT OF RANGE REFERENCE UNITS LAB L501.4010 <0.045 ng/mL Normal 0.022 TROPONIN-I Result Comment: TROPONIN-I EXPECTED VALUES <0.045 Negative 0.045 - 0.590 Consistent with Cardiac Damage > OR = 0.600 Critical Value Not every elevated troponin is indicative of AR. These values should be used with clinical judgement in examining the patient's clinical picture for diagnosis. To establish a diagnosis of AR versus myocardial injury, there must be a demonstrated rise and/or fall in the troponin values, in addition to ischemic symptoms, EKG changes, new regional wall motion abnormality, and/or angiographical evidence. PLEASE NOTE: REFERENCE RANGES EDITED 17 Performed By: #### L500.4050, L501.4010 #### [facility] [address] [place], [address] LACTIC ACID Collected: 12/12/2017 Status: F Source: ANÍBAL 7:30 AM [facility] REPOSITORY Order Comment: Yes/No query for Sepsis Lactate Rule Y TYPE CODE TESTS RESULT OUT OF RANGE REFERENCE UNITS LAB L503.6005 0.4-2.0 mmol/L Normal LACTIC ACID 1.2 Performed By: #### L503.6005 #### [facility] [address] [place], [address] BNP,B-TYPE NATRIURETIC Collected: 12/12/2017 Status: F Source: ANÍBAL PEPTIDE 7:30 AM [facility] REPOSITORY TYPE CODE TESTS RESULT OUT OF RANGE REFERENCE UNITS LAB L503.6620 0-100 pg/mL High B-TYPE 207.3 YOVANA PEP Performed By: #### L503.6620 #### [facility] [address] [place], [address] Observed: 12/12/2017 Status: F Source: ANÍBAL CULTURE, BLOOD (WB) 7:30 AM [facility] REPOSITORY BC No growth in 5 days. Performed By: #### M200.1000 #### [facility] [address] [place], [address] CHEST 1 VIEW Observed: 12/12/2017 Status: F Source: JAY (PORTABLE) 7:26 AM [facility] RE[facility] Imaging Services [address] [place] [address] Chest 1 View (Portable) MR#: [id number] Acct: [id number] Name: MANGO MCGARRY Rep #: [id number] : 1960 M 57 From: Katya Tsang MD PCP: Tio Parker MD Status: REG ER Study: Chest 1 View (Portable) Date of Exam: 12/12/17 Exam# [id number] Ordering Dr: Mega Chacon MD STUDY: X-RAY CHEST REASON FOR EXAM: Male, 57 years old. Respiratory failure. TECHNIQUE: Single AP portable view of the chest. COMPARISON: June 28, 2017. FINDINGS: The patient is intubated. The tip of endotracheal tube is at the medial clavicles. Enteric tube is present with the distal end below the inferior edge of image. The lungs are expanded. There are prominent bronchovascular markings in both lungs. There is no demonstrated pleural abnormality. There is mild cardiac enlargement. Normal mediastinum and marta. There is prominence of the pulmonary hilar arteries with peripheral pulmonary vascular congestion. There is atherosclerotic calcification of the aortic arch with tortuosity. There are diffuse degenerative changes of the visualized thoracic spine. There are degenerative changes of both shoulders. There is no demonstrated abnormality of the visualized soft tissue structures of the upper abdomen. RAD/Chest 1 View (Portable) IMPRESSION: Cardiomegaly and mild pulmonary congestion. Electronically Signed: Katya Tsang MD at 8:02 EST , Service support , CC: Mega Chacon MD; Tio Parker MD Clerk Cashier: Signed VENOUS DUPLEX LOWER Observed: 11/20/2017 Status: F Source: ANÍBAL EXTREMITY 9:27 AM [facility] REPOSITORY [facility] Cardiovascular Services [address] [address] Venous Duplex US, Unilateral 11/17/17 1419 MR#: [id number] Acct: [id number] Name: MANGO MCGARRY Rep #: [id number] : 1960 57 From: Kleber Campos MD Attending Dr: Darryn Maciel Status: REG CLI Ordering Dr: Darryn Walsh PA-C Date: 11/17/17 Location: CVS Sex: M C Admitted: Reason For Study: pain RIGHT LEFT CFV is compressible, spontaneous, phasic, GSV is normal. competent and demonstrates normal CFV is compressible, spontaneous, phasic, augmentation. competent, and demonstrates normal Procedure augmentation. Exam performed in department. FV is compressible, spontaneous, phasic, The exam was of fair technical quality due competent and demonstrates normal to pt body habitus. augmentation. Limited views due to pt body habitus. POP V is compressible, spontaneous, phasic, A preliminary report was called and/or faxed competent and demonstrates normal to Connor BARRERA. augmentation. T/P Trunk is compressible. PTV is compressible. LT PerV is compressible. Interpretation Summary Deep veins of the left lower extremity are patent and compressible segmentally. There is no evidence of left lower extremity deep vein thrombosis. Valvular competence appears intact within the proximal deep venous system on the left . The left greater saphenous vein appears patent and compressible segmentally. Ordering Physician: Darryn Walsh Performed By: Kiran Ward, RVT 11/20/17926 Date Kleber Campos MD CC: Tio Parker MD; Darryn BARRERA Date Dictated: 11/17/17 1419 Date Transcribed: 11/20/17926 Clerk Cashier: Signed CARDIOLOGY VISIT Observed: 11/14/2017 Status: F Source: JAY REPORT 9:12 AM [facility] REPOSITORY [facility] [address] [place] [address] OFFICE VISIT Date of Service: 11/10/17 MR#: [id number] Acct: [id number] Name: ALEJO MCGARRY Rep #: [id number] : 1960 Provider: Robert Li MD Age/Sex: 57/M Location: [facility] Status: Signed HPI HPI Details: ALEJO MCGARRY, is a 57 M who presents to the office today for a cardiovascular outpatient follow-up.He is a morbidly obese diabetic gentleman with a history of hypertension, hypercholesterolemia, coronary disease s/p stent to his proximal LAD in 2012 and GISSEL to LCX in June 2017, and ischemic cardiomyopathy. He also has a history of tobacco abuse with about half pack per day. He wears 2 or 2.5 liters of oxygen at night. [facility] department after being found unresponsive in June 2017. This was attributed to acute on chronic hypoxic and hypercapnic respiratory failure. He required mechanical endotracheal intubation and ventilation. He was also diagnosed and treated for healthcare associated pneumonia and acute on chronic systolic congestive heart failure. He underwent a left heart catheterization that resulted and PTCA/GISSEL with IVUS guided to LCX. There was noted to be retrograde dissection of LCx. His RCA showed known occlusion. He underwent an echocardiogram that showed ejection fraction of 50%. He was diuresed and discharged back to [facility], [facility]. Pt denies chest, arm, jaw, or neck discomfort. His exercise tolerance is stable. Pt denies symptoms of CHF, palpitations, lightheadedness, dizziness, near syncopal or syncopal episodes. Pt denies edema or claudication issues. Pt. denies orthopnea, PND, fever, chills, blood in urine, blood in stool, myalgia, or unexplainable fatigue. Intake Intake Visit Reasons: 3 M FU Allergies adhesive tape Adverse Reaction (Verified 11/10/17 12:17) Rash Medications Aspirin E.C. [Ecotrin] 81 mg PO DAILY@0800 12/27/15 [History Confirmed 11/08/17] Albuterol Aerosols [Ventolin Aerosols] 2.5 mg INHALATION TID 01/17/17 [History Confirmed 11/08/17] Meloxicam [Mobic] 15 mg PO DAILY 01/17/17 [History Confirmed 11/08/17] Polyethylene Glycol 3350 [Miralax] 17 gm PO DAILY 01/17/17 [History Confirmed 11/08/17] potassium chloride ER 20 mEq tablet,extended release 20 meq PO DAILY 06/13/17 [History Confirmed 11/08/17] Clopidogrel Bisulfate [Plavix] 75 mg PO DAILY 06/20/17 [History Confirmed 11/08/17] Gabapentin [Neurontin] 400 mg PO TID 06/20/17 [History Confirmed 11/08/17] Metformin HCl [Glucophage] 1,000 mg PO BIDCM 06/20/17 [History Confirmed 11/08/17] Montelukast [Singulair] 10 mg PO DAILY 06/20/17 [History Confirmed 11/08/17] Carvedilol [Coreg (Beta Lori)] 3.125 mg PO BID #90 tab 07/04/17 [Rx Confirmed 11/08/17] Furosemide [Lasix] 80 mg PO BID@1000,1800 #90 tab 07/04/17 [Rx Confirmed 11/08/17] fluticasone-vilanterol INHALATION QDAY 07/27/17 [History Confirmed 11/08/17] pantoprazole 20 mg tablet,delayed release 20 mg PO QDAY 07/27/17 [History Confirmed 11/08/17] prednisone 10 mg tablet 10 mg PO QDAY 07/27/17 [History Confirmed 11/08/17] losartan 25 mg tablet 25 mg PO QDAY 08/04/17 [History Confirmed 11/08/17] atorvastatin 40 mg tablet 40 mg PO DAILY 11/10/17 [History Confirmed 11/10/17] PFSH Medical History Pure hypercholesterolemia (Chronic) History of anterolateral myocardial infarction (Chronic 05/03/12) History of cardiac arrest (Chronic 06/22/17) Hypersomnia (Chronic) EMILIA (obstructive sleep apnea) (Chronic) Nicotine dependence, cigarettes, uncomplicated (Chronic) EMILIA (obstructive sleep apnea) (Suspected) Acute respiratory failure with hypoxia and hypercapnia (Acute) Pneumococcal pneumonia (Acute) Metabolic encephalopathy (Acute) Heart failure with reduced ejection fraction (Acute) Chronic systolic congestive heart failure (Chronic) Atherosclerotic heart disease of [place] coronary artery without angina pectoris (Chronic) Asthma-COPD overlap syndrome (Chronic) DM2 (diabetes mellitus, type 2) (Chronic) NSTEMI (non-ST elevated myocardial infarction) (Chronic 12/21/16) Venous stasis of lower extremity (Chronic) Ischemic cardiomyopathy (Chronic) Hypoxia (Acute) Chest pain (Resolved) Respiratory failure, acute (Resolved) Hyponatremia (Inactive) Surgical History History of cardiac catheterization (Chronic 02/25/16) Presence of stent in coronary artery (Chronic 06/29/17) History of surgery on arm (Resolved) Amputated great toe of left foot (Resolved) Family History Mother Diabetes Heart disease AR Social History Smoking Status: Heavy Smoker (>10/day) second hand exposure: Yes alcohol intake: current alcohol intake frequency: a few times a week Alcohol type: beer substance use type: does not use caffeine: Yes (3/day) Type: coffee Number of servings: 3 what type of physical activity do you participate in: walking frequency: daily ROS Const Const: Negative for fatigue, weakness, body ache, fever(s), headache(s), chills, frequent falls, night sweats, daytime sleepiness, difficulty sleeping, excessive sweating, weight gain, weight loss, increased appetite, poor appetite, anorexia or other Eyes Eyes: Negative for blind spots, loss of peripheral vision, transient loss of vision, blurry vision, change in vision, double vision, floaters, tunnel vision or other ENT ENT: Negative for headache(s), dizziness, hearing loss, tinnitus, Nosebleed/epistaxis, balance problems, post nasal drip, lip swelling, tongue swelling, bleeding gums, hoarseness, neck pain, dry mouth or other Cardio Chest Pain: No Resp Respiratory: Negative for SOB with activity, SOB at rest, SOB orthopnea\SOB lying down, Coughing up blood/hemoptysis, chest congestion, pain on inspiration, snoring, stridor, wheezing, crackles, paroxysmal nocturnal dyspnea or other GI GI: Negative nausea, vomiting, heartburn, constipation, belching, bloating, cramping, vomiting blood/hematemesis, bright, red blood in stools, black,tarry stools, loose stools, Difficulty Swallowing or other : Negative for hematuria, frequent nighttime urination/ nocturia, erectile dysfunction or abnormal vaginal bleeding Musc Musc: Negative for balance problems, muscle aches/ myalgia, muscle weakness or joint pain Skin Skin: Negative redness, non-healing lesions, rash, unusual bruising, skin ulcer, wounds, jaundice or other Neuro Neuro: Negative for weakness, headache(s), frequent falls, blurry vision, double vision, dizziness, lightheadedness, near syncope, syncope, orthostatic symptoms, confusion, memory loss, restless legs, vertigo, seizures, lack of coordination or other Gabriel Hematologic/Lymphatic: Negative for easy bleeding, easy bruising, enlarged lymph nodes or other Endo Endo: Negative for fatigue, excessive sweating, cold intolerance, heat intolerance, flushing, increased thirst/drinking, increased hunger, hair loss, hair growth or other Psych Psych: Negative for anxiety, depression, thoughts of harming anyone, thoughts of harming yourself, visual hallucinations, panic attacks or audible hallucinations Allergy Allergy/Immunology: Negative for lip swelling, Negative for tongue swelling, Negative for rash, Negative for throat swelling, Negative for hives Cardiology Exam Const Appearance: cooperative, healthy appearing, comfortable and no acute distress Orientation: alert, awake and oriented x3 Head Head: normal to inspection Ears: hearing grossly normal bilaterally Nose: external nose normal Face and Sinus: face symmetric Mouth: oral mucosae normal Eyes General: appearance normal, both eyes and all related structures Eyelids: eyelids normal Neck Neck: no JVD and normal visual inspection Carotids: normal carotid upstroke Chest Chest inspection: normal inspection of the chest and normal respiratory effort; negative cough Auscultation: Bilateral: Clear to Auscultation Cardio Rate: regular rate Rhythm: regular rhythm Heart sounds: S1 normal and S2 normal; negative rub or gallop GI GI: normal to inspection Neuro General: alert, awake, oriented x3 and CN's II-XI intact bilaterally Skin Skin: no rashes or lesions noted Extremities Pulses: Normal: Right Posterior Tibial Pulse, Left Posterior Tibial Pulse, Right Radial Pulse, Left Radial Pulse Lower Extremity Edema: None: Bilateral Psych Psychological: normal affect Supplemental Info Stress test in February 2014 which demonstrated old anteroseptal wall AR and possible adelita-infarct ischemia. He underwent repeat catheterization at that time which demonstrated widely patent stent with mild to moderate in-stent restenosis, no other lesions and very small right coronary artery which was chronically occluded with right to right collaterals. Heart catheterization from June 2017 resulted in successful PTCA/drug-eluting stent to LCx. Ejection fraction was noted to be 45%. Left main was angiographically normal, proximal LAD showed patent previous stent, distal LAD showed mild luminal irregularities less than 30%, mid circumflex showed ulcerated plaque with retrograde coronary dissection, RCA as occluded, and collateral flow from right to right. Echocardiogram from June 2017 showed ejection fraction 50%, mildly enlarged left atrium, mild mitral annular calcification, trivial mitral valve insufficiency, trivial tricuspid valve insufficiency, mild focal aortic valve thickening, and borderline to mildly dilated aortic root measuring 4 cm. Assessment AND Plan 1. Atherosclerosis of [place] coronary artery of [place] heart without angina pectoris I25.10 PCI/stent LAD w/ 4.0 x 32 mm Promus 2012; PCI/GISSEL to Prox LAD w/ 4.0 x 20 mm Promus 02/25/16 for instent restenosis; PTCA/GISSEL to LCx in June 2017; Plan - SOURAV Hernandez Patient denies any chest pain, arm pain, jaw pain, neck pain, shortness of breath, or fatigue suggestive of angina at this time. We will continue to monitor this. We will not make any medication regimen changes and will continue risk factor modification. He did not complete/participate in cardiac rehab due to lack of transportation. He was reminded to continue exercising on a daily basis. He was also reminded to continue to engage in smoking cessation. He acknowledged understanding. Orders Orders: 2. Presence of stent in coronary artery Z95.5 PCI/stent LAD w/ 4.0 x 32 mm Promus 2012 ; PCI/GISSEL to Prox LAD w/ 4.0 x 20 mm Promus 02/25/16 for instent restenosis; PTCA/GISSEL to LCX 06/29/2017 Plan - SOURAV Hernandez Patient continue current plan as outlined above. Orders Orders: 3. Ischemic cardiomyopathy I25.5 EF of 35% on Cath in February of 2014; 50% per echo 06/21/2017 Plan - SOURAV Hernandez His echocardiogram in June 2017 showed ejection fraction of 50%. He denies any worsening shortness of breath or worsening lower extremity pedal edema. He will continue with current beta-lori, ARB, and diuretic. We will continue to monitor. Orders Orders: 4. Pure hypercholesterolemia E78.00 Plan - SOURAV Hernandez Lipid panel from February 2016 showed cholesterol: 136, HDL: 42, LDL: 64, and triglycerides: 152. He will continue with current statin medication. An order was sent to [facility] to have this drawn at his next routine lab check in a fasting state. Orders Orders: Plan Detail Other Medications New: Discontinued: aspirin Discontinued Reason: Order edite81 mg PO DAILY@0800 30 days 0RF Cynthia Sparr d - Discontinuing original order losartan Discontinued Reason: Order edit50 mg (2 x 25 mg) PO DAILY #30 0RF Cynthia Sparr ed - Discontinuing original order Additional Comments - SOURAV Hernandez Discussed the above patient with Dr. Li, he agrees with the plan of care. Thank you for allowing us to participate in the patients plan of care, if you have any questions please do not hesitate to call. This note was generated using a voice recognition system and there may be incorrect words, spelling or punctuation that were not noted when reviewing the office note prior to saving. Follow Up 6 Months (DJN) Coding Level of Care Code Off vis,est,level 3 Diagnoses Atherosclerosis of [place] coronary artery of [place] heart without angina pectoris I25.10 [place] vs. transplanted heart: [place] heart Presence of stent in coronary artery Z95.5 Ischemic cardiomyopathy I25.5 Pure hypercholesterolemia E78.00 Coding Level of Care Code Off vis,est,level 3 Diagnoses Atherosclerosis of [place] coronary artery of [place] heart without angina pectoris I25.10 [place] vs. transplanted heart: [place] heart Presence of stent in coronary artery Z95.5 Ischemic cardiomyopathy I25.5 Pure hypercholesterolemia E78.00 11/10/17 1544 <Electronically signed by Brennon BENJAMIN> Date Brennon Maloney SAFETY INSPECTOR-C 11/10/17 1532<Electronically signed by Robert Li MD> Kristineigner Signature: Date (if applicable) Robert Li MD CC: Tio Parker MD PULMONARY VISIT REPORT Observed: 10/20/2017 Status: F Source: JAY 11:14 AM [facility] REPOSITORY [facility] [address] [place] [address] OFFICE VISIT Date of Service: 10/20/17 MR#: [id number] Acct: [id number] Name: ALEJO MCGARRY Rep #: [id number] : 1960 Provider: Jeffrey Campos MD Age/Sex: 57/M Location: [facility] Status: Signed Assessment AND Plan Problems 1. EMILIA (obstructive sleep apnea) G47.33 2. Chronic systolic congestive heart failure I50.22 3. Asthma-COPD overlap syndrome J44.9 Plan Patient appears to be at his spine from my perspective. Patient continues to be noncompliant with supplemental oxygen with exertion. Patient is not open to having noninvasive therapy overnight despite benefits. Discussed with patient for 5 minutes on the importance of complete smoking cessation, but patient is almost aggressive with the conversation. Attempted to stress the appropriate use of low-salt diet, but patient again appears to be pre-contemplative. Obtain complete PFT and walking oximetry prior to next visit. Encourage low-salt diet. Continue supplemental oxygen with sleep. Orders Orders: Plan Detail Follow Up 3 Months (CSM) HPI 3 M FU: Chief Complaint: Shortness of breath on exertion Details: Patient is a 57-year-old male, currently under the care of Dr. Parker, who presents for evaluation secondary to shortness of breath on exertion. Since last visit, patient denies any ER visits, hospitalizations or prednisone burst. Patient subjectively feels that he is unchanged compared to previous. Patient did not complete sleep study as previously requested. Patient states I sleep fine. Patient does continue to use oxygen at 2 L/min with sleep. Patient continues to be compliant with Brio therapy. Patient denies any complications such as thrush, hoarseness or sore throat. Patient does report dyspnea on exertion, but feels this is subjectively unchanged compared to previous. Patient denies any excessive nocturnal cough, but does report coughing thick clear to white sputum on a daily basis. Patient does not believe this is changed recently. Patient reports that he is compliant with a low-salt diet, but also reports that he regularly eats potato chips. Patient does have some lower extremity edema. Patient states he recently had his leg on the bed, but this is being followed by a home health nurse that comes to his home. Patient states it is not infected and has no exudate. Patient does follow with cardiology, but he is unaware when his next appointment is scheduled. Intake Vital Signs10/20/17 Height 6 ft 10/20/17 Weight: 154.675 kg Intake Visit Reasons: 3 M FU Chief Complaint: Routine f/u Security Systems Technician Required: No Accompanied by: Self Is patient in pain?: Yes Allergies adhesive tape Adverse Reaction (Verified 10/20/17 07:36) Rash Medications Aspirin E.C. [Ecotrin] 81 mg PO DAILY@0800 12/27/15 [History Confirmed 10/20/17] Atorvastatin Calcium [Lipitor] 40 mg PO QHS 12/27/15 [History Confirmed 10/20/17] Albuterol Aerosols [Ventolin Aerosols] 2.5 mg INHALATION TID 01/17/17 [History Confirmed 10/20/17] Meloxicam [Mobic] 15 mg PO DAILY 01/17/17 [History Confirmed 10/20/17] Polyethylene Glycol 3350 [Miralax] 17 gm PO DAILY 01/17/17 [History Confirmed 10/20/17] potassium chloride ER 20 mEq tablet,extended release 20 meq PO DAILY 06/13/17 [History Confirmed 10/20/17] Clopidogrel Bisulfate [Plavix] 75 mg PO DAILY 06/20/17 [History Confirmed 10/20/17] Gabapentin [Neurontin] 400 mg PO TID 06/20/17 [History Confirmed 10/20/17] Metformin HCl [Glucophage] 1,000 mg PO BIDCM 06/20/17 [History Confirmed 10/20/17] Montelukast [Singulair] 10 mg PO DAILY 05/14/18 [History Confirmed 10/20/17] Carvedilol [Coreg (Beta Lori)] 3.125 mg PO BID #90 tab 07/04/17 [Rx Confirmed 10/20/17] Furosemide [Lasix] 80 mg PO BID@1000,1800 #90 tab 07/04/17 [Rx Confirmed 10/20/17] fluticasone-vilanterol INHALATION QDAY 07/27/17 [History Confirmed 10/20/17] pantoprazole 20 mg tablet,delayed release 20 mg PO QDAY 07/27/17 [History Confirmed 10/20/17] prednisone 10 mg tablet 10 mg PO QDAY 07/27/17 [History Confirmed 10/20/17] losartan 25 mg tablet 25 mg PO QDAY 08/04/17 [History Confirmed 10/20/17] [facility] Medical History Hyperlipidemia (Chronic) Nicotine dependence, cigarettes, uncomplicated (Chronic) EMILIA (obstructive sleep apnea) (Suspected) Acute respiratory failure with hypoxia and hypercapnia (Acute) Pneumococcal pneumonia (Acute) Metabolic encephalopathy (Acute) Heart failure with reduced ejection fraction (Acute) Ischemic cardiomyopathy (Chronic) Chronic systolic congestive heart failure (Chronic) Atherosclerotic heart disease of [place] coronary artery without angina pectoris (Chronic) Asthma-COPD overlap syndrome (Chronic) DM2 (diabetes mellitus, type 2) (Chronic) NSTEMI (non-ST elevated myocardial infarction) (Chronic) Venous stasis of lower extremity (Chronic) Ischemic cardiomyopathy (Chronic) Hypoxia (Acute) Hypersomnia (Chronic) EMILIA (obstructive sleep apnea) (Chronic) Chest pain (Resolved) Respiratory failure, acute (Resolved) Hyponatremia (Inactive) Surgical History Presence of stent in coronary artery (Chronic 02/25/16) H/O percutaneous transluminal coronary angioplasty (Chronic) History of cardiac catheterization (Chronic 02/25/16) Amputated great toe of left foot (Resolved) Family History Mother Diabetes Heart disease AR Social History Smoking Status: Current every day smoker tobacco type: cigarettes second hand exposure: Yes alcohol intake: current alcohol intake frequency: holidays/special occasions only Alcohol type: beer substance use type: does not use caffeine: Yes (3/day) what type of physical activity do you participate in: walking frequency: daily Review of Systems Const CONSTITUTIONAL: Negative anorexia, body ache, chills, daytime sleepiness, fever(s), night sweats, oral thrush, stops breathing during sleep, weight loss, sleeping in chair, fatigue, weight loss, weight gain, frequent colds, seasonal allergies, other, headache(s) or orthopnea EETM Ear Nose Throat Mouth: Positive hearing normal; negative hard of hearing, hoarseness, dry mouth in morning, change in vision, itchy eyes, eye pain, swallowing Difficulty, ear pain, nose bleed, headache(s), mouth pain, nasal congestion, nasal discharge, post nasal drip, sinus pain, sinus pressure, sore throat or other Cardio Cardiovascular: Negative chest pain, chest pain at rest, chest pain with activity, irregular heart rhythm, edema, shortness of breath when lying down, palpitations, murmur or other Resp Respiratory: Positive as per HPI, shortness of breath shortness of breath: Positive with activity and cough cough: Positive productive color: Positive white; negative pain with cough, wheezing, chest congestion, chest tightness, pain on inspiration, inhalers, increase use of rescue inhalers, snoring, apnea or other Gastro Gastrointestional: Negative bloody stools, change in appetite, difficulty swallowing, reflux, hematemesis, melena stool, loose stool, constipation or other Genitourinary: Negative blood in urine, nocturia, pain with urination or other Musc Musculoskeletal: Negative body pain, back pain, neck pain or other Skin/Breast Skin/Breast: Negative dry skin, itching, rash, unusual bruising, breast lump or other Neuro Neurological: Negative restless legs, confusion, weakness or other Psych Psychocological: Negative abnormal sleep pattern, anxiety, thoughts of hurting self/others, hopelessness or other Lymph Lymphatic: Negative easy bleeding, easy bruising, swollen lymph nodes or other Exam Const Constitutional: Positive conversant, cooperative, in no acute respiratory distress, well developed, well nourished, obese, smells of smoke, appears older than stated age and poor hygiene; negative wearing supplemental oxygen Head Head: Positive normocephalic and atraumatic; negative cyanosis of lips/distal nose, frontal sinus tenderness or maxillary sinus tenderness Eyes Eye: Positive clear conjunctiva; negative nystagmus, scleral abnormality or cataract present Ears Ear: Positive hearing normal and external ears normal; negative hard of hearing Nose Nose: Positive external nose normal, septum normal and clear nasal discharge; negative epistaxis or nasal polyp Mouth Mouth: Positive oral mucosae normal, no lesions and poor dentition; negative post nasal drip, malodorous breath or oral thrush present Mallampati Score: II: Mallampati Score Neck Neck: Positive normal visual inspection, full ROM, trachea midline and male neck greater than 43 cm (17 in); negative lymphadenopathy or JVD Chest Wall Chest: Positive normal inspection of the chest and symmetric chest movement; negative crepitus or tenderness Resp lung sounds: Positive clear to auscultation, good air exchange and prolonged expiratory time; negative wheezes, rhonchi, rales, use of accessory muscles, wheeze present on forced exhalation or dullness to percussion Cardio Cardiac: Positive regular rate, regular rhythm, S1 normal and S2 normal; negative murmur, rub or gallop GI GI: Positive normal to inspection, normal bowel sounds and obese; negative distended, ascites or epigastric tenderness Genitourinary: Positive deferred Musc Musculoskeletal: Positive using an assistive device for ambulation; negative kyphosis or scoliosis Skin Pulmonary Skin Exam: Positive intact; negative rash, lesion, ulcers, erythema, scaly or dermal atrophy Pulses Pulse: Yes radial pulses present Extremities Extremities: Yes capillary refill normal, Yes clubbing, No cyanosis, Yes edema (2+ lower extremity) Neuro Neurologic: Yes conversant, Yes no focal neuro deficits, Yes normal concentration, Yes understands questions, Yes cooperative, Yes normal cognition, Yes normal coordination Lymph Lymphatic: No lymphadenopathy Psych Appearance: Positive grossly normal Mental Status: Positive mental status grossly normal Mood: Positive congruent mood Affect: Positive normal affect Coding Level of Care Code Off vis,est,level 4 Diagnoses EMILIA (obstructive sleep apnea) G47.33 Chronic systolic congestive heart failure I50.22 Asthma-COPD overlap syndrome J44.9 10/20/17 1114 <Electronically signed by Jeffrey Campos MD> Date Jeffrey Campos MD Cosigner Signature: Date (if applicable) CC: Tio Parker MD CARDIOLOGY VISIT Observed: 08/10/2017 Status: F Source: JAY REPORT 8:20 AM [facility] REPOSITORY [facility] [address] [place] [address] OFFICE VISIT Date of Service: 08/04/17 MR#: [id number] Acct: [id number] Name: ALEJO MCGARRY Rep #: [id number] : 1960 Provider: JUNE Maloney Age/Sex: 57/M Location: [facility] Status: Signed HPI HPI Details: ALEJO MCGARRY, is a 57 M who presents to the office today for morbidly obese diabetic gentleman with a history of hypertension, hypercholesterolemia, coronary disease s/p stent to his proximal LAD several years ago in 2012 and GISSEL to LCX in June 2017. He also has a history of tobacco abuse with about half pack per day. He wears 2 or 2.5 liters of oxygen at night. Patient presented to [facility] emergency prior after being found unresponsive. This is attributed to acute on chronic hypoxic and hypercapnic respiratory failure. He required mechanical endotracheal intubation and ventilation. He was also diagnosed and treated for healthcare associated pneumonia and acute on chronic systolic congestive heart failure. He underwent a left heart catheterization that resulted and PTCA/GISSEL with IVUS guided to LCX. There was noted to be retrograde dissection of LCx. His RCA showed known occlusion. He underwent an echocardiogram that showed ejection fraction of 50%. He was diuresed and discharged back to assisted living nursing facility. Pt denies chest, arm, jaw, or neck discomfort. His exercise tolerance is stable. Pt denies symptoms of CHF, palpitations, lightheadedness, dizziness, near syncopal or syncopal episodes. Pt denies edema or claudication issues. Pt. denies orthopnea, PND, fever, chills, blood in urine, blood in stool, myalgia, or unexplainable fatigue. He refused cardiac rehab d/t lack of transportation and does not wish to proceed with sleep study. Intake Vital Signs08/04/17 Height 6 ft 08/04/17 Weight: 337 lb 08/04/17 Body Mass Index (BMI) 45.7 Intake Visit Reasons: 2-3 WK S/P [facility] Allergies adhesive tape Adverse Reaction (Verified 07/27/17 09:09) Rash Medications Aspirin E.C. [Ecotrin] 81 mg PO DAILY@0800 12/27/15 [History Confirmed 08/04/17] Atorvastatin Calcium [Lipitor] 40 mg PO QHS 12/27/15 [History Confirmed 08/04/17] Albuterol Aerosols [Ventolin Aerosols] 2.5 mg INHALATION TID 01/17/17 [History Confirmed 08/04/17] Meloxicam [Mobic] 15 mg PO DAILY 01/17/17 [History Confirmed 08/04/17] Polyethylene Glycol 3350 [Miralax] 17 gm PO DAILY 01/17/17 [History Confirmed 08/04/17] potassium chloride ER 20 mEq tablet,extended release 20 meq PO DAILY 06/13/17 [History Confirmed 08/04/17] Clopidogrel Bisulfate [Plavix] 75 mg PO DAILY 06/20/17 [History Confirmed 08/04/17] Gabapentin [Neurontin] 400 mg PO TID 06/20/17 [History Confirmed 08/04/17] Metformin HCl [Glucophage] 1,000 mg PO BIDCM 06/20/17 [History Confirmed 08/04/17] Montelukast [Singulair] 10 mg PO DAILY 06/20/17 [History Confirmed 08/04/17] Carvedilol [Coreg (Beta Lori)] 3.125 mg PO BID #90 tab 07/04/17 [Rx Confirmed 08/04/17] Furosemide [Lasix] 80 mg PO BID@1000,1800 #90 tab 07/04/17 [Rx Confirmed 08/04/17] fluticasone-vilanterol INHALATION QDAY 07/27/17 [History Confirmed 08/04/17] pantoprazole 20 mg tablet,delayed release 20 mg PO QDAY 07/27/17 [History Confirmed 08/04/17] prednisone 10 mg tablet 10 mg PO QDAY 07/27/17 [History Confirmed 08/04/17] losartan 25 mg tablet 25 mg PO QDAY 08/04/17 [History Confirmed 08/04/17] [facility] Medical History Hyperlipidemia (Chronic) Nicotine dependence, cigarettes, uncomplicated (Chronic) EMILIA (obstructive sleep apnea) (Suspected) Acute respiratory failure with hypoxia and hypercapnia (Acute) Pneumococcal pneumonia (Acute) Metabolic encephalopathy (Acute) Heart failure with reduced ejection fraction (Acute) Ischemic cardiomyopathy (Chronic) Chronic systolic congestive heart failure (Chronic) Atherosclerotic heart disease of [place] coronary artery without angina pectoris (Chronic) Asthma-COPD overlap syndrome (Chronic) DM2 (diabetes mellitus, type 2) (Chronic) NSTEMI (non-ST elevated myocardial infarction) (Chronic) Venous stasis of lower extremity (Chronic) Ischemic cardiomyopathy (Chronic) Hypoxia (Acute) Hypersomnia (Chronic) EMILIA (obstructive sleep apnea) (Chronic) Chest pain (Resolved) Respiratory failure, acute (Resolved) Hyponatremia (Inactive) Surgical History Presence of stent in coronary artery (Chronic 02/25/16) H/O percutaneous transluminal coronary angioplasty (Chronic) History of cardiac catheterization (Chronic 02/25/16) Amputated great toe of left foot (Resolved) Family History Mother Diabetes Heart disease [place] Social History Smoking Status: Current every day smoker tobacco type: cigarettes second hand exposure: Yes alcohol intake: current alcohol intake frequency: holidays/special occasions only Alcohol type: beer substance use type: does not use caffeine: Yes (3/day) what type of physical activity do you participate in: walking frequency: daily ROS Const Const: Negative for fatigue, weakness, body ache, fever(s) or chills ENT ENT: Negative for dizziness Cardio Chest Pain: No Palpitations: No Edema: None Muscle aches with walking: None Resp Respiratory: Negative for SOB with activity, SOB at rest, SOB orthopnea\SOB lying down or paroxysmal nocturnal dyspnea GI GI: Negative nausea, black,tarry stools, bright, red blood in stools or vomiting blood/hematemesis : Negative for hematuria or frequent nighttime urination/ nocturia Musc Musc: Negative for muscle aches/ myalgia Skin Skin: Negative non-healing lesions or rash Neuro Neuro: Negative for weakness, dizziness, lightheadedness, near syncope, syncope or orthostatic symptoms Endo Endo: Negative for fatigue Allergy Allergy/Immunology: Negative for rash Cardiology Exam Const Appearance: cooperative, healthy appearing, comfortable and no acute distress Orientation: alert, awake and oriented x3 Head Head: normal to inspection Ears: hearing grossly normal bilaterally Nose: external nose normal Face and Sinus: face symmetric Mouth: oral mucosae normal Eyes General: appearance normal, both eyes and all related structures Eyelids: eyelids normal Neck Neck: no JVD and normal visual inspection Carotids: normal carotid upstroke Chest Chest inspection: normal inspection of the chest and normal respiratory effort; negative cough Auscultation: Bilateral: Clear to Auscultation Cardio Rate: regular rate Rhythm: regular rhythm Heart sounds: S1 normal and S2 normal; negative rub or gallop GI GI: normal to inspection Neuro General: alert, awake, oriented x3 and CN's II-XI intact bilaterally Skin Skin: no rashes or lesions noted Extremities Pulses: Normal: Right Posterior Tibial Pulse, Left Posterior Tibial Pulse, Right Radial Pulse, Left Radial Pulse Lower Extremity Edema: None: Bilateral Psych Psychological: normal affect Supplemental Info Stress test in February 2014 which demonstrated old anteroseptal wall AR and possible adelita-infarct ischemia. He underwent repeat catheterization at that time which demonstrated widely patent stent with mild to moderate in-stent restenosis, no other lesions and very small right coronary artery which was chronically occluded with right to right collaterals. Heart catheterization from June 2017 resulted in successful PTCA/drug-eluting stent to LCx. Ejection fraction was noted to be 45%. Left main was angiographically normal, proximal LAD showed patent previous stent, distal LAD showed mild luminal irregularities less than 30%, mid circumflex showed ulcerated plaque with retrograde coronary dissection, RCA as occluded, and collateral flow from right to right. Echocardiogram from June 2017 showed ejection fraction 50%, mildly enlarged left atrium, mild mitral annular calcification, trivial mitral valve insufficiency, trivial tricuspid valve insufficiency, mild focal aortic valve thickening, and borderline to mildly dilated aortic root measuring 4 cm. Assessment AND Plan 1. Atherosclerosis of [place] coronary artery of [place] heart without angina pectoris I25.10 PCI/stent LAD w/ 4.0 x 32 mm Promus 2012; PCI/GISSEL to Prox LAD w/ 4.0 x 20 mm Promus 02/25/16 for instent restenosis; PTCA/GISSEL to LCx in June 2017; Plan - SOURAV Hernandez Patient decline his cardiac rehab due to not being able to find a ride. Patient denies any chest pain, arm pain, jaw pain, neck pain, shortness of breath, or fatigue suggestive of angina at this time. We will continue to monitor this. We will not make any medication regimen changes and will continue risk factor modification. 2. Presence of stent in coronary artery Z95.5 PCI/stent LAD w/ 4.0 x 32 mm Promus 2012; PCI/GISSEL to Prox LAD w/ 4.0 x 20 mm Promus 02/25/16 for instent restenosis; PTCA/GISSEL to LCx in June 2017; Plan - SOURAV Hernandez Patient continue current plan as outlined above. 3. Ischemic cardiomyopathy I25.5 Plan - SOURAV Hernanedz Patient's most recent echocardiogram from June 2017 showed ejection fraction 50%. His heart catheterization from June 2017 showed ejection fraction of 45%. Patient denies any shortness of breath or worsening lower extremity edema. He will continue current beta-lori, ARB, and diuretic. Does acknowledge with increase in diuretic his chronic lower extremity edema has improved. 4. Nicotine dependence, cigarettes, uncomplicated F17.210 Plan - SOURAV Hernandez Patient continues to smoke. He received extensive education regarding the health benefits of smoking cessation. We will continue to support and encourage smoking cessation. 5. Pure hypercholesterolemia E78.00; E78.0 Plan - SOURAV Hernandez He will continue his current statin medication. Plan Detail Additional Comments - SOURAV Hernandez Discussed the above patient with Dr. Li, he agrees with the plan of care. Thank you for allowing us to participate in the patients plan of care, if you have any questions please do not hesitate to call. This note was generated using a voice recognition system and there may be incorrect words, spelling or punctuation that were not noted when reviewing the office note prior to saving. Follow Up 3 Months ([facility]) 9 Months (MARIAHN) Coding Level of Care Code Off vis,est,level 3 Diagnoses Atherosclerosis of [place] coronary artery of [place] heart without angina pectoris I25.10 [place] vs. transplanted heart: [place] heart Presence of stent in coronary artery Z95.5 Ischemic cardiomyopathy I25.5 Nicotine dependence, cigarettes, uncomplicated F17.210 Pure hypercholesterolemia E78.00; E78.0 Hyperlipidemia type: pure hypercholesterolemia Coding Level of Care Code Off vis,est,level 3 Diagnoses Atherosclerosis of [place] coronary artery of [place] heart without angina pectoris I25.10 [place] vs. transplanted heart: [place] heart Presence of stent in coronary artery Z95.5 Ischemic cardiomyopathy I25.5 Nicotine dependence, cigarettes, uncomplicated F17.210 Pure hypercholesterolemia E78.00; E78.0 Hyperlipidemia type: pure hypercholesterolemia 08/04/17 1707 <Electronically signed by Brennon Maloney SAFETY INSPECTOR-C> Date Brennon Maloney SAFETY INSPECTOR-C 08/10/17 0820<Electronically signed by Robert Li MD> Cosigner Signature: Date (if applicable) Robert Li MD CC: Tio Parker MD 12 LEAD ELECTROCARDIOGRAM Observed: 07/28/2017 Status: F Source: [place] 11:43 AM [facility] REPOSITORY [facility] Cardiovascular Services [address] [place] [address] 12 Lead EKG 07/01/17 0500 MR#: [id number] Acct: [id number] Name: ALEJO MCGARRY Rep #: [id number] : 1960 57 From: Nitesh Mackenzie MD Attending Dr: Braden Hernandez Status: DIS IN Ordering Dr: Robert Li MD Date: 07/01/17 Location: [facility] Sex: M C Admitted: 06/20/17 Test Reason : AM EKG Blood Pressure : / mmHG Vent. Rate : 060 BPM Atrial Rate : 060 BPM P-R Int : 164 ms QRS Dur : 098 ms QT Int : 398 ms P-R-T Axes : 061 085 031 degrees QTc Int : 398 ms Normal sinus rhythm Septal infarct , age undetermined Nonspecific T wave abnormality Abnormal ECG Confirmed by CATRACHITO CABA, NITESH ([id number]), publication editor SELINA TSANG ([id number]) on 07/28/2017 11:43:12 AM Referred By: MARY Confirmed By:NITESH MACKENZIE MD 07/28/17 1143 Date Nitesh Mackenzie MD CC: Robert Li MD; Braden Hernandez; Tio Parker MD Signed PULMONARY VISIT REPORT Observed: 07/27/2017 Status: F Source: [place] 4:07 PM [facility] REPOSITORY [facility] [address] [place] [address] OFFICE VISIT Date of Service: 07/27/17 MR#: [id number] Acct: [id number] Name: ALEJO MCGARRY Rep #: [id number] : 1960 Provider: Kiki John Age/Sex: 57/M Location: [facility] Status: Signed Assessment AND Plan 1. Asthma-COPD overlap syndrome J44.9 Status Chronic Plan He does not appear to be in exacerbation of his COPD or asthma today. No indication to step up therapy at this time. He does not require antibiotics or prednisone. No additional testing at this time, follow-up with Dr. Campos in 3 months. 2. Acute respiratory failure with hypoxia and hypercapnia J96.01; J96.02 Status Acute Plan Continue to use supplemental oxygen as needed to maintain saturations 89-92%. The patient would benefit from a BiPAP for his respiratory failure as well as his COPD and highly suspect obstructive sleep apnea. Follow-up with Dr. Campos in 3 months. 3. Chronic systolic congestive heart failure I50.22 Status Chronic Plan Complicates exam, plan, care and prognosis. Defer management to PCP and or cardiology. 4. EMILIA (obstructive sleep apnea) G47.33 Status Suspected Plan Many symptoms present that make me suspect obstructive sleep apnea. The patient is agreeable to a sleep study and treatment if indicated. Discussed that the initial goal will be 4 hours nightly, and that ultimately goal will be any time spent sleeping. Follow-up with Dr. Campos in 3 months, at which time anticipate the patient will be on therapy for approximately 6-8 weeks. Orders Orders: Plan Detail Other Medications Discontinued: ipratropium-albuterol 0.5 mg-3 mg(2.5 mg base)/3 3 mL Inhalation Q6HWA.RT Rhianna Morin mL Discontinued Reason: Pt no longer taking Follow Up 3 Months (BWA) HPI 6 M FU: Chief Complaint: Shortness of breath HPI Comments Details: This patient presents the office today to follow-up on his asthma/COPD overlap syndrome. He is ambulatory, with the assistance of a wheeled walker. He is on room air. He continues to experience dyspnea on exertion. He has a cough that is productive of white sputum, typically several times per day. He continues to smoke one half pack per day. He is using his albuterol nebulizer 3 times daily. He is not currently utilizing his DuoNeb's. He is on Breo, daily. He reports rinsing his mouth out after each use. He denies any medication side effects such as sore throat or thrush. He is compliant with Lasix 80 mg twice daily. He reports that he has had significant improvement in his lower extremity edema. He denies any chest pain or palpitations. He denies any wheezing or chest tightness. He denies any fever, chills or body aches. See complete review of systems. He does not feel rested upon arising in the morning. He is napping daily. He also has several episodes of nocturia nightly. He has frequent dry mouth in the morning. He has been reported to snore. Recently when he was in the hospital he was tried on BiPAP and tolerated it very well. 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 [Ecotrin] 81 mg PO DAILY@0800 12/27/15 [History Confirmed 07/27/17] Atorvastatin Calcium [Lipitor] 40 mg PO QHS 12/27/15 [History Confirmed 07/27/17] Albuterol Aerosols [Ventolin Aerosols] 2.5 mg INHALATION TID 01/17/17 [History Confirmed 07/27/17] Meloxicam [Mobic] 15 mg PO DAILY 01/17/17 [History Confirmed 07/27/17] Polyethylene Glycol 3350 [Miralax] 17 gm PO DAILY 01/17/17 [History Confirmed 07/27/17] losartan 50 mg tablet 25 mg PO DAILY tab 06/13/17 [History Confirmed 07/27/17] potassium chloride ER 20 mEq tablet,extended release 20 meq PO DAILY 06/13/17 [History Confirmed 07/27/17] Clopidogrel Bisulfate [Plavix] 75 mg PO DAILY 06/20/17 [History Confirmed 07/27/17] Gabapentin [Neurontin] 400 mg PO TID 06/20/17 [History Confirmed 07/27/17] Metformin HCl [Glucophage] 1,000 mg PO BIDCM 06/20/17 [History Confirmed 07/27/17] Montelukast [Singulair] 10 mg PO DAILY 06/20/17 [History Confirmed 07/27/17] Carvedilol [Coreg (Beta Lori)] 3.125 mg PO BID #90 tab 07/04/17 [Rx Confirmed 07/27/17] Furosemide [Lasix] 80 mg PO BID@1000,1800 #90 tab 07/04/17 [Rx Confirmed 07/27/17] fluticasone-vilanterol INHALATION QDAY 07/27/17 [History Confirmed 07/27/17] pantoprazole 20 mg tablet,delayed release 20 mg PO QDAY 07/27/17 [History Confirmed 07/27/17] prednisone 10 mg tablet 10 mg PO QDAY 07/27/17 [History Confirmed 07/27/17] [facility] Medical History Ischemic cardiomyopathy (Chronic) Chronic systolic congestive heart failure (Chronic) Atherosclerotic heart disease of [place] coronary artery without angina pectoris (Chronic) Asthma-COPD overlap syndrome (Chronic) DM2 (diabetes mellitus, type 2) (Chronic) NSTEMI (non-ST elevated myocardial infarction) (Chronic) Venous stasis of lower extremity (Chronic) Ischemic cardiomyopathy (Chronic) Hypoxia (Acute) Hypersomnia (Chronic) EMILIA (obstructive sleep apnea) (Chronic) Chest pain (Resolved) Respiratory failure, acute (Resolved) Hyponatremia (Inactive) Surgical History Presence of stent in coronary artery (Chronic 02/25/16) H/O percutaneous transluminal coronary angioplasty (Chronic) History of cardiac catheterization (Chronic 02/25/16) Amputated great toe of left foot (Resolved) Family History Mother Diabetes Heart disease AR Social History Smoking Status: Current every day smoker tobacco type: cigarettes second hand exposure: Yes alcohol intake: current alcohol intake frequency: holidays/special occasions only Alcohol type: beer substance use type: does not use caffeine: Yes (3/day) what type of physical activity do you participate in: walking frequency: daily Review of Systems Const CONSTITUTIONAL: Negative anorexia, body ache, chills, daytime sleepiness, fever(s), night sweats, oral thrush, stops breathing during sleep, weight loss, sleeping in chair, fatigue, weight loss, weight gain, frequent colds, seasonal allergies, other, headache(s) or orthopnea EETM Ear Nose Throat Mouth: Positive hearing normal and nasal discharge; negative hard of hearing, hoarseness, dry mouth in morning, change in vision, itchy eyes, eye pain, swallowing Difficulty, ear pain, nose bleed, headache(s), mouth pain, nasal congestion, post nasal drip, sinus pain, sinus pressure, sore throat or other Cardio Cardiovascular: Negative chest pain, chest pain at rest, chest pain with activity, irregular heart rhythm, edema, shortness of breath when lying down, palpitations, murmur or other Resp Respiratory: Positive as per HPI, shortness of breath shortness of breath: Positive with activity and cough cough: Positive productive color: Positive white; negative pain with cough, wheezing, chest congestion, chest tightness, pain on inspiration, inhalers, increase use of rescue inhalers, snoring, apnea or other Gastro Gastrointestional: Negative bloody stools, change in appetite, difficulty swallowing, reflux, hematemesis, melena stool, loose stool, constipation or other Genitourinary: Negative blood in urine, nocturia, pain with urination or other Musc Musculoskeletal: Negative body pain, back pain, neck pain or other Skin/Breast Skin/Breast: Negative dry skin, itching, rash, unusual bruising, breast lump or other Neuro Neurological: Negative restless legs, confusion, weakness or other Psych Psychocological: Negative abnormal sleep pattern, anxiety, thoughts of hurting self/others, hopelessness or other Lymph Lymphatic: Negative easy bleeding, easy bruising, swollen lymph nodes or other Exam Const Constitutional: Positive conversant, cooperative, in no acute respiratory distress, well developed, well nourished, frail appearing, obese and poor hygiene Head Head: Positive normocephalic and atraumatic; negative cyanosis of lips/distal nose Eyes Eye: Positive clear conjunctiva and nystagmus; negative scleral abnormality Ears Ear: Positive hearing normal and external ears normal; negative hard of hearing Nose Nose: Positive external nose normal and no nasal discharge; negative epistaxis Mouth Mouth: Positive oral mucosae normal, no lesions, poor dentition and crowded posterior oropharynx; negative post nasal drip, malodorous breath or oral thrush present Mallampati Score: IV: Mallampati Score Neck Neck: Positive normal visual inspection, full ROM, trachea midline, thick neck and male neck greater than 43 cm (17 in); negative lymphadenopathy, JVD or tender Chest Wall Chest: Positive normal inspection of the chest and symmetric chest movement; negative increased A/P diameter Resp lung sounds: Positive clear to auscultation, diminished, normal expiratory time and normal respiratory effort; negative wheezes, rhonchi, rales, dullness to percussion or wheeze present on forced exhalation Cardio Cardiac: Positive regular rate, regular rhythm, S1 normal and S2 normal; negative murmur GI GI: Positive normal to inspection, normal bowel sounds and obese; negative distended Genitourinary: Positive deferred Musc Musculoskeletal: Positive steady gait, ROM normal and using an assistive device for ambulation; negative kyphosis or scoliosis Skin Pulmonary Skin Exam: Positive intact; negative rash, lesion, ulcers, erythema, scaly, dermal atrophy or Eczema Pulses Pulse: Yes pulses normal x4 extremities Extremities Extremities: Yes capillary refill normal, No clubbing, No cyanosis, Yes edema Location: lower extremity location: Bilateral pitting +2 Neuro Neurologic: Yes conversant, Yes no focal neuro deficits, Yes cooperative, Yes normal cognition, Yes normal coordination, Yes normal concentration, Yes understands questions, No tremor Lymph Lymphatic: No lymphadenopathy, No tenderness, No cervical adenopathy, No axillary adenopathy Psych Appearance: Positive grossly normal, eye contact and well kempt Mental Status: Positive mental status grossly normal Mood: Positive labile mood Affect: Positive irritable affect Coding Level of Care Code Off vis,est,level 4 Diagnoses Asthma-COPD overlap syndrome J44.9 Acute respiratory failure with hypoxia and hypercapnia J96.01; J96.02 Chronic systolic congestive heart failure I50.22 EMILIA (obstructive sleep apnea) G47.33 07/27/17 1607 <Electronically signed by Kiki ACOSTAC> Date Kiki John NP-C Kristinerichardsoner Signature: Date (if applicable) CC: Tio Parker MD 12 LEAD ELECTROCARDIOGRAM Observed: 07/06/2017 Status: F Source: [place] 3:34 PM [facility] REPOSITORY [facility] Cardiovascular Services [address] [place] [address] 12 Lead EKG 06/28/17 1143 MR#: [id number] Acct: [id number] Name: ALEJO MCGARRY Rep #: [id number] : 1960 57 From: Nitesh Mackenzie MD Attending Dr: Braden Hernandez Status: DIS IN Ordering Dr: Robert Li MD Date: 06/28/17 Location: [facility] Sex: M C Admitted: 06/20/17 Test Reason : POST CATH Blood Pressure : / mmHG Vent. Rate : 066 BPM Atrial Rate : 066 BPM P-R Int : 164 ms QRS Dur : 088 ms QT Int : 376 ms P-R-T Axes : 042 071 019 degrees QTc Int : 394 ms Normal sinus rhythm Low voltage QRS Septal infarct , age undetermined Abnormal ECG Confirmed by CATRACHITO CABA, NITESH ([id number]), publication editor SELINA TSANG ([id number]) on 07/06/2017 3:34:18 PM Referred By: SURESH Confirmed By:NITESH MACKENZIE MD 07/06/17 1534 Date Nitesh Mackenzie MD CC: Robert Li MD; Braden Hernandez; Tio Parker Signed 12 LEAD ELECTROCARDIOGRAM Observed: 07/06/2017 Status: F Source: [place] 3:33 PM [facility] REPOSITORY [facility] Cardiovascular Services [address] [place] [address] 12 Lead EKG 06/29/17 0447 MR#: [id number] Acct: [id number] Name: ALEJO MCGARRY Rep #: [id number] : 1960 57 From: Nitesh Mackenzie MD Attending Dr: Braden Hernandez Status: DIS IN Ordering Dr: Robert Li MD Date: 06/28/17 Location: [facility] Sex: M C Admitted: 06/20/17 Test Reason : AM EKG Blood Pressure : / mmHG Vent. Rate : 067 BPM Atrial Rate : 067 BPM P-R Int : 166 ms QRS Dur : 094 ms QT Int : 382 ms P-R-T Axes : 050 079 019 degrees QTc Int : 403 ms Normal sinus rhythm Low voltage QRS Poor R wave progression Anterior septal AR, age undetermined, cannot be excluded Borderline ECG Confirmed by CATRACHITO CABA, NITESH ([id number]), publication editor SELINA TSANG ([id number]) on 07/06/2017 3:33:26 PM Referred By: Confirmed By:NITESH MACKENZIE MD 07/06/17 1533 Date Nitesh Mackenzie MD CC: Robert Li MD; Braden Hernandez; Tio Parker Signed 12 LEAD ELECTROCARDIOGRAM Observed: 07/06/2017 Status: F Source: [place] 3:18 PM [facility] REPOSITORY [facility] Cardiovascular Services [address] [place] [address] 12 Lead EKG 06/30/17 0509 MR#: [id number] Acct: [id number] Name: ALEJO MCGARRY Rep #: [id number] : 1960 57 From: Nitesh Mackenzie MD Attending Dr: Braden Hernandez Status: DIS IN Ordering Dr: Robert Li MD Date: 06/30/17 Location: [facility] Sex: M C Admitted: 06/20/17 Test Reason : AM Blood Pressure : / mmHG Vent. Rate : 060 BPM Atrial Rate : 060 BPM P-R Int : 170 ms QRS Dur : 094 ms QT Int : 422 ms P-R-T Axes : 059 083 034 degrees QTc Int : 422 ms Normal sinus rhythm Low voltage QRS Septal infarct , age undetermined Abnormal ECG Confirmed by CATRACHITO CABA, NITESH ([id number]), publication editor SELINA TSANG ([id number]) on 07/06/2017 3:17:45 PM Referred By: SIRENA Confirmed By:NITESH MACKENZIE MD 07/06/17 1517 Date Nitesh Mackenzie MD CC: Robert Li MD; Braden Hernandez; Tio Parker Signed DISCHARGE SUMMARY Observed: 07/04/2017 Status: F Source: [place] 4:16 PM [facility] REPOSITORY [facility] Medical Records Department [address] [place] [address] Discharge Summary 07/04/17 1536 MR#: [id number] Acct: [id number] Name: ALEJO MCGARRY Rep #: [id number] : 1960 57 From: Braden Hernandez MD PCP: Tio Parker Status: ADM IN Location: [place] [address] Discharge Date and Diagnosis - Problem List Patient Problems: Active and Suspected Problems (Last Reviewed 06/13/17 @ 14:25 by Binta Isaac) Acute respiratory failure with hypoxia and hypercapnia (Acute) Pneumococcal pneumonia (Acute) Metabolic encephalopathy (Acute) Heart failure with reduced ejection fraction (Acute) Date of Admission: 06/20/17 Date of Discharge: 07/04/17 - Primary Discharge Diagnosis Active and Suspected Problems (Last Reviewed 06/13/17 @ 14:25 by Bnita Isaac) #1 acute on chronic hypoxic and hypercapnic respiratory failure. #2 healthcare associated pneumonia. #3 acute on chronic systolic CHF. #4 coronary artery disease status post stent and left circumflex. #5 metabolic encephalopathy. - Secondary Discharge Diagnosis Chronic Problems (Last Reviewed 06/13/17 @ 14:25 by Binta Isaac) Ischemic cardiomyopathy (Chronic) Chronic systolic congestive heart failure (Chronic) Presence of stent in coronary artery (Chronic 02/25/16) PCI/stent LAD w/ 4.0 x 32 mm Promus 2012; PCI/GISSEL to Prox LAD w/ 4.0 x 20 mm Promus 02/25/16 for instent restenosis Atherosclerotic heart disease of [place] coronary artery without angina pectoris (Chronic) PCI/stent LAD w/ 4.0 x 32 mm Promus 2012; PCI/GISSEL to Prox LAD w/ 4.0 x 20 mm Promus 02/25/16 for instent restenosis Asthma-COPD overlap syndrome (Chronic) FEV1 46% (01/11/2017) DM2 (diabetes mellitus, type 2) (Chronic) NSTEMI (non-ST elevated myocardial infarction) (Chronic) Venous stasis of lower extremity (Chronic) Ischemic cardiomyopathy (Chronic) EF of 35% on Cath in February of 2014 Hospital Course and Treatment Imaging Results: Clinical Impression(s) from Imaging Studies Brain CT 06/20/17 13:13 IMPRESSION: Normal unenhanced CT scan of the brain. Electronically Signed: Akhil Izquierdo MD at 15:15 EDT Tel [phone], Service support , Chest X-Ray 06/20/17 13:15 IMPRESSION: The tip of the endotracheal tube is at 3.5 cm proximal to the byron. Cardiomegaly. Findings suggestive of vascular congestion with infiltrate and/or atelectasis is worse on the right side with thickening of the right minor fissure. Electronically Signed: Akhil Izquierdo MD at 14:01 EDT Tel [phone], Service support , Chest X-Ray 06/25/17 03:30 IMPRESSION: 1. Enteric tube is in appropriate position. 2. Improved aeration of the right lung since the previous study. Persistent airspace disease in the left lung may represent pneumonia. Electronically Signed: Laura Duarte MD at 7:56 EDT Tel , Service support , Chest X-Ray 06/25/17 10:33 IMPRESSION: 1. Enteric tube is in appropriate position. 2. Improved aeration of the right lung since the previous study. Electronically Signed: Katya Tsang MD at 12:08 EDT , Service support , Chest X-Ray 06/27/17 07:26 IMPRESSION: Increasing right basilar atelectasis and/or infiltrate. The remaining examination is unchanged. Electronically Signed: Akhil Izquierdo MD at 12:57 EDT Tel [phone], Service support , Chest X-Ray 06/28/17 07:02 IMPRESSION: The tip of the endotracheal tube is at 5.3 cm proximal to the byron. Slight increase in the blunting of the left costophrenic angle. Electronically Signed: Akhil Izquierdo MD at 11:01 EDT Tel [phone], Service support , Dr. Denny/Dr. Camops, critical care. Dr. Li,/Dr. Mackenzie, cardiology. Operations: None Procedures: 2-D Echocardiogram, Cardiac catheterization, EKG, Intubation Summary of Care Provided: Patient seen and examined on the day of discharge and appeared to be stable to be discharged to group home facility. His breathing remains stable and his pulse ox is maintained on 3 L of oxygen. All over, is feeling better. Denied chest pain or palpitations. His vital signs are stable, pulse ox is 96% on 3 L. - Physical Exam General: Alert, Oriented x3, Cooperative, No apparent distress. HEENT: Atraumatic, PERRLA, EOMI. Neck: Supple, No JVD, Negative Carotid Bruits, Trachea Midline, Thyroid Normal. Lungs: Decreased breath sounds at the bases, more on the right base, scattered rhonchi, No wheeze, No rales. Cardiovascular: Regular rate, Regular Rhythm, Normal S1, Normal S2, PMI Normal. Abdomen: Bowel Sounds Present, Soft, Non Tender, Non-Distended, No Hepato-splenomegaly. Extremities: No clubbing, No cyanosis, No edema Skin: No rashes, No breakdown Neurological: Neuro grossly intact Vital Signs are stable. Hospital course: The patient is a 57 year old M presented to the emergency room because he was found unresponsive, found to have acute on chronic hypoxic and hypercapnic respiratory failure that required endotracheal intubation and mechanical ventilation which is precipitated by healthcare associated pneumonia and acute on chronic systolic CHF. The patient has long protracted course during this hospital stay with multiple procedures. #1 acute on chronic hypoxic and hypercapnic respiratory failure: Secondary to pneumonia and acute and chronic systolic CHF. Initially, patient was admitted to intensive care unit, intubated and started on mechanical ventilation. Today, patient was able to be extubated, remains on BiPAP as well as high flow oxygen. He was treated with IV antibiotics and IV Lasix for diuresis. He was transferred to PCU and he remains on 3 L of oxygen as well as BiPAP during sleep and during naps. At home, patient has been on oxygen and he mentioned he has been more than 2 L of oxygen at home. He has been stable on 3 L of oxygen for the last 3 days. Patient discharged to group home facility in a stable medical condition, discharged on Levaquin 750 mg p.o. daily, tapering course of prednisone and bronchodilators. #2 healthcare associated pneumonia, right upper lobe: Treated with antibiotics. Sputum culture revealed corynebacterium striatum. Blood culture showed no growth in 5 days. Pneumococcal and Legionella antigen were negative. Nasal swab for influenza a and B were negative. Discharged on Levaquin 750 mg p.o. daily for 7 days #3 acute on chronic systolic CHF: Treated with IV Lasix for diuresis. Dose of losartan and Coreg adjusted by cardiology. With diuresis, patient's volume status stabilized as well as respiratory status. 2D echocardiogram revealed ejection fraction of 50%. Patient underwent cardiac catheterization that revealed occluded RCA and retrograde dissection of the dominant left circumflex, underwent PTCA and drug-eluting stents to mid left circumflex. Patient discharged on aspirin, statins, Plavix, Coreg, losartan and Lasix 80 mg p.o. twice daily. #4 CAD status post stent to mid left circumflex. Status post PTCA and drug-eluting stent to mid left circumflex. As mentioned above, patient was discharged on aspirin, statins, Plavix, beta blockers and losartan. #5 metabolic encephalopathy: Secondary to acute on chronic hypoxic and hypercapnic respiratory failure as well as pneumonia. CT scan brain done on admission and revealed normal unenhanced CT scan of the brain. #6 type 2 diabetes mellitus: Blood sugar was controlled during this hospital stay. Discharged on the same dosage of metformin. #7 COPD: Treated with bronchodilators and steroids. Patient discharged on tapering course of prednisone. #8 ischemic cardiomyopathy: 2D echocardiogram revealed ejection fraction of 50% and on the cardiac catheterization, ejection fraction was 45%. He underwent stenting of the mid left circumflex as mentioned above. He was discharged in the standard treatment for CAD and CHF. Patient discharged to group home facility in a stable medical condition, discharged on aspirin, Plavix, statins, beta blockers and losartan, discharged on Lasix 80 mg p.o. twice daily for acute and chronic systolic CHF, discharged on Levaquin for 7 days, discharged on tapering course of prednisone, discharged on oxygen at 3 L, Zaroxolyn discontinued plan is to follow-up with PCP in 1 week, follow-up with pulmonology in 2 weeks and follow-up with cardiology in 2-3 weeks. This note was generated with [employer] dictation software. It may contain incorrect words, spelling, and punctuation that were not noted in checking the note before signing. Home Medications: Medications to take at Discharge Mometasone/Formoterol [Dulera 200 Mcg/5 Mcg Inhaler] 1 puff IH BID 07/11/14 Aspirin E.C. [Ecotrin] 81 mg PO DAILY@0800 12/27/15 Atorvastatin Calcium [Lipitor] 40 mg PO QHS 12/27/15 Mag Hydrox/Al Hydrox/Simeth [Antacid Liquid] 30 ml PO Q4H PRN PRN 12/27/15 Magnesium Hydroxide [Milk Of Magnesia] 30 ml PO DAILY PRN PRN 12/27/15 Polyvinyl Alcohol/Povidone/Pf [Refresh Classic Eye Drops] 1 ea OP PRN PRN 12/27/15 Acetaminophen [Mapap] 1,000 mg PO TID PRN PRN 01/17/17 Albuterol Aerosols [Ventolin Aerosols] 2.5 mg INHALATION TID 01/17/17 Meloxicam [Mobic] 15 mg PO DAILY 01/17/17 Polyethylene Glycol 3350 [Miralax] 17 gm PO DAILY 01/17/17 losartan 50 mg tablet 25 mg PO DAILY tab 06/13/17 potassium chloride ER 20 mEq tablet,extended release 20 meq PO DAILY 06/13/17 Clopidogrel Bisulfate [Plavix] 75 mg PO DAILY 06/20/17 Gabapentin [Neurontin] 400 mg PO TID 06/20/17 Metformin HCl [Glucophage] 1,000 mg PO BIDCM 06/20/17 Montelukast [Singulair] 10 mg PO DAILY 06/20/17 Carvedilol [Coreg (Beta Lori)] 3.125 mg PO BID #90 tab 07/04/17 Furosemide [Lasix] 80 mg PO BID@1000,1800 #90 tab 07/04/17 Ipratropium/Albuterol Sulfate [Duoneb] 3 ml INHALATION Q6HWA.RT #1 ampul.neb 07/04/17 Prednisone 10 mg PO DAILY #30 tab 07/04/17 levoFLOXacin tablet [Levaquin tablet] 750 mg PO DAILY@0600 #7 tab 07/04/17 Following Prescrptions Were Given to Patient: Ipratropium/Albuterol Sulfate [Duoneb] 3 ml INHALATION Q6HWA.RT #1 ampul.neb Furosemide [Lasix] 80 mg PO BID@1000,1800 #90 tab levoFLOXacin tablet [Levaquin tablet] 750 mg PO DAILY@0600 #7 tab Prednisone 10 mg PO DAILY #30 tab Carvedilol [Coreg (Beta Lori)] 3.125 mg PO BID #90 tab Primary Care Physician: Tio Parker MD [Primary Care Provider] - Please follow up with your Primary Care Physician in: 1 week. Please Follow Up With: Jeffrey Campos MD When: 2 weeks. Please Follow Up With: Nitesh Mackenzie MD When: 2-3 weeks. Disposition: Care Home facility Minutes spent on discharge:: 35 Patient Condition:: Stable Medical Necessity - Tobacco Use Smoking Status: Current every day smoker Tobacco Use: - Meaningful Use Info Meaningful Use Diagnoses (Choose all that apply): CHF - CHF JONE/ARB ordered at discharge?: Yes Documented LVEF (%): 50 Code Visit Inpatient E AND M: 11426 Disch Hosp 07/04/17 1616 <Electronically signed by Braden Hernandez MD> Date Braden Hernandez MD Cosigner Signature (if applicable): Date CC: Braden Hernandez; Tio Parker Signed BEDSIDE GLUCOSE Collected: 07/04/2017 Status: F Source: JAY 12:10 PM [facility] REPOSITORY TYPE CODE TESTS RESULT OUT OF REFERENCE UNITS RANGE LAB L501.080 70-110 mg/dL High BEDSIDE GLU 158 Result Comment: MANAGEMENT OF PATIENT CARE PER NURSING PROTOCOL Performed By: #### L501.080 #### [facility] Point of Care [address] [place] [address] TRANSFER TO [facility] Observed: 07/04/2017 Status: F Source: JAY CARE 11:58 AM [facility] REPOSITORY [facility] Medical Records Department [address] [place] [address] Transfer to Extended Care MR#: [id number] Acct: [id number] Name: ALEJO MCGARRY Rep #: [id number] : 1960 57 From: Braden Hernandez MD PCP: Tio Parker Status: ADM IN ALEJO MCGARR[facility] (Patient) (Health Ins. Claim No.) (Day of Discharge to Facility) Certification of patient admission REQUIRED AT TIME OF ADMISSION. I CERTIFY THAT POST-HOSPITAL ECF SERVICES ARE REQUIRED TO BE GIVEN ON AN IN-PATIENT BASIS BECAUSE OF THE ABOVE NAMED PATIENT'S NEED FOR SNF CARE ON A CONTINUING BASIS FOR THE CONDITION(S) FOR WHICH HE/SHE WAS RECEIVING IN-PATIENT HOSPITAL SERVICES PRIOR TO HIS/HER TRANSFER TO THE [facility]. 07/04/17 1158 <Electronically signed by Braden Hernandez MD> Date Braden Hernandez MD - Diet 06/30/17 09:22 Diet: Cardiac: Calorie-Controlled Is pt able to select menu?: Yes Diet Comments: low sodium How many daily calories?: 1999 calorie - Routine Orders/Code Status O2 Liters per Minute: 3 O2 Frequency: Continuous Keep PO Greater than or Equal to (%): 90 - Wound(s) Left glez Wound Type: scabs Right groin fold Wound Type: excoriation R groin Wound Type: Puncture - Suggestions for Active Care Change Position every (hours): 3 Hours to sit in a chair: 2 Times a day to sit in chair: 3 - Therapies Weight Bearing: Weight bearing as tolerated Physical Therapy: Eval and Treat Occupational Therapy: Eval and Treat - Allergies/Procedures Done in Hospital Allergies/Adverse Reactions: Allergies adhesive tape Adverse Reaction (Verified 06/13/17 14:25) Rash - Type of Care/Length of Stay Estimated LOS: Convalescent Care Less Than 30 days Type of Care Needed: Skilled Rehab Potential: Fair Prognosis: Fair - Additional Orders/Day of Discharge H AND P will serve as current which was dated: 06/20/17 Day of Discharge: 07/04/17 - Dietary and Speech Recommendations Dietitian Recommendations/Changes: Rec addition of fluid restriction as indicated - Follow Up Care Primary Care Physician: Tio Parker MD [Primary Care Provider] - Please follow up with your Primary Care Physician in: 1 week. Please Follow Up With: Jeffrey Campos MD When: 2 weeks. Please Follow Up With: Nitesh Mackenzie MD When: 2-3 weeks. 07/04/17 1158 <Electronically signed by Braden Hernandez MD> Date Braden Hernandez MD CC: Jeffrey Campos MD; Robert Li MD; Hardy Montemayor MD; Tio Parker Signed BEDSIDE GLUCOSE Collected: 07/04/2017 Status: F Source: ANÍBAL 6:44 AM [facility] REPOSITORY TYPE CODE TESTS RESULT OUT OF REFERENCE UNITS RANGE LAB L501.080 70-110 mg/dL High BEDSIDE GLU 116 Result Comment: MANAGEMENT OF PATIENT CARE PER NURSING PROTOCOL Performed By: #### L501.080 #### [facility] Point of Care [address] [place], [place] [address] CBC W/DIFF, AUTOMATED Collected: 07/04/2017 Status: F Source: ANÍBAL 4:20 AM [facility] REPOSITORY Order Comment: SPECIMEN OBTAINED FROM LINE DRAW TYPE CODE TESTS RESULT OUT OF RANGE REFERENCE UNITS LAB L100.1000 4.4-11.0 K/mm3 Normal WBC 7.8 LAB L100.1200 4.6-6.2 M/mm3 Normal RBC 4.66 LAB L100.1300 13.0-16.5 g/dl Low HGB 12.2 LAB L100.1400 40-54 % Normal HCT 40.4 LAB L100.1500 80-94 fL Normal MCV 86.7 LAB L100.1600 27.0-32.0 pg Low MCH 26.2 LAB L100.1700 32-36 g/gl Low MCHC 30.2 LAB L100.1810 11.6-14.6 % High RDW CV 14.9 LAB L100.1820 35.1-43.9 fl High RDW SD 47.6 LAB L100.1900 150-450 K/mm3 Normal PLT 188 LAB L100.2000 6.2-12.0 fl Normal MPV 11.3 LAB L100.2100 47-70 % Normal NEUT% 62.2 LAB L100.2200 19-41 % Normal LY% 26.5 LAB L100.2300 0-10 % Normal MONO% 6.5 LAB L100.2400 0-5 % Normal EO% 4.2 LAB L100.2500 0-1 % Normal BASO% 0.3 LAB L100.2550 0.0-0.9 % Normal IM GRAN % 0.300 Result Comment: IG% - Immature Granulocytes (promyelocytes, myelocytes and metamyelocytes) > 1% indicates that a LEFT SHIFT is Present. LAB L100.2620 2.0-7.7 X10 3/uL Normal Absolute Neut 4.9 LAB L100.2720 0.83-4.51 X10 3/ul Normal Absolute Lymph 2.07 Performed By: #### L100.0100 #### [facility] [address] [place], [place], [address] BASIC METABOLIC Collected: 07/04/2017 Status: F Source: ANÍBAL PROFILE (BMP) 4:20 AM [facility] REPOSITORY Order Comment: SPECIMEN OBTAINED FROM LINE DRAW TYPE CODE TESTS RESULT OUT OF RANGE REFERENCE UNITS LAB L501.0100 74-106 mg/dL Normal GLU 96 Result Comment: Please note revised GLUCOSE reference range effective 2017. LAB L501.1000 7-18 mg/dL High BUN 20 LAB L501.1100 0.70-1.30 mg/dL Low CREAT,SERUM 0.55 Result Comment: The validity of the calculated GFR AND GFRAA in patients over 70 years has not been determined. Clinical correlation is essential. LAB L501.1110 >60 mL/min Normal EST GFR 163 Result Comment: Non- GFR Calc LAB L501.1115 >60 mL/min Normal EST GFR - AA 197 Result Comment: GFR Calc LAB L501.1255 ml/min Normal Estimated CRCL 158.73 LAB L501.1300 10-20 RATIO High BUN/CRE 36.6 LAB L501.2200 8.5-10 mg/dL .1 CA Normal 8.8 LAB L501.5300 136-14 mmol/L 5 NA Normal 142 LAB L501.5600 3.5-5. mmol/L 1 K Normal 3.7 LAB L501.5900 98-107 mmol/L CL Normal 103 LAB L501.6100 21.0-3 mmol/L High 2.0 CO2 34.0 LAB L501.6200 5-15 GAP Normal 5 Performed By: #### L500.2500 #### [facility] [address] [place], [place], [address] BEDSIDE GLUCOSE Collected: 07/03/2017 Status: F Source: ANÍBAL 9:43 PM [facility] REPOSITORY TYPE CODE TESTS RESULT OUT OF REFERENCE UNITS RANGE LAB L501.080 70-110 mg/dL High BEDSIDE GLU 165 Result Comment: MANAGEMENT OF PATIENT CARE PER NURSING PROTOCOL Performed By: #### L501.080 #### [facility] Point of Care [address] [place], [place] [address] BEDSIDE GLUCOSE Collected: 07/03/2017 Status: F Source: ANÍBAL 4:26 PM [facility] REPOSITORY TYPE CODE TESTS RESULT OUT OF REFERENCE UNITS RANGE LAB L501.080 70-110 mg/dL High BEDSIDE GLU 189 Result Comment: MANAGEMENT OF PATIENT CARE PER NURSING PROTOCOL Performed By: #### L501.080 #### [facility] Point of Care [address] [place] [address] BEDSIDE GLUCOSE Collected: 07/03/2017 Status: F Source: ANÍBAL 11:41 AM [facility] REPOSITORY TYPE CODE TESTS RESULT OUT OF REFERENCE UNITS RANGE LAB L501.080 70-110 mg/dL High BEDSIDE GLU 151 Result Comment: MANAGEMENT OF PATIENT CARE PER NURSING PROTOCOL Performed By: #### L501.080 #### [facility] Point of Care [address] [place] [address] BASIC METABOLIC Collected: 07/03/2017 Status: F Source: ANÍBAL PROFILE (BMP) 11:30 AM [facility] REPOSITORY TYPE CODE TESTS RESULT OUT OF RANGE REFERENCE UNITS LAB L501.0100 74-106 mg/dL High GLU 148 Result Comment: Fasting Glucose result greater than or equal to 126 mg/dL suggests DIABETES MELLITUS per A.D.A. criteria. Please note revised GLUCOSE reference range effective 2017. LAB L501.1000 7-18 mg/dL High BUN 23 LAB L501.1100 0.70-1.30 mg/dL Normal CREAT,SERUM 0.72 Result Comment: The validity of the calculated GFR AND GFRAA in patients over 70 years has not been determined. Clinical correlation is essential. LAB L501.1110 >60 mL/min Normal EST GFR 118 Result Comment: Non- GFR Calc LAB L501.1115 >60 mL/min Normal EST GFR - AA 143 Result Comment: GFR Calc LAB L501.1255 ml/min Normal Estimated CRCL 121.25 LAB L501.1300 10-20 RATIO High BUN/CRE 31.9 LAB L501.2200 8.5-10 mg/dL .1 CA Normal 9.0 LAB L501.5300 136-14 mmol/L 5 NA Normal 142 LAB L501.5600 3.5-5. mmol/L 1 K Normal 4.2 LAB L501.5900 98-107 mmol/L CL Normal 105 LAB L501.6100 21.0-3 mmol/L High 2.0 CO2 34.0 LAB L501.6200 5-15 Low GAP 3 Performed By: #### L500.2500 #### [facility] [address] [place], [address] BEDSIDE GLUCOSE Collected: 07/03/2017 Status: F Source: ANÍBAL 6:41 AM [facility] REPOSITORY TYPE CODE TESTS RESULT OUT OF RANGE REFERENCE UNITS LAB L501.080 70-110 mg/dL Normal BEDSIDE GLU 106 Result Comment: MANAGEMENT OF PATIENT CARE PER NURSING PROTOCOL Performed By: #### L501.080 #### [facility] Point of Care [address] [place] [address] BEDSIDE GLUCOSE Collected: 07/02/2017 Status: F Source: ANÍBAL 10:04 PM [facility] REPOSITORY TYPE CODE TESTS RESULT OUT OF REFERENCE UNITS RANGE LAB L501.080 70-110 mg/dL High BEDSIDE GLU 168 Result Comment: MANAGEMENT OF PATIENT CARE PER NURSING PROTOCOL Performed By: #### L501.080 #### [facility] Point of Care [address] [place] [address] BEDSIDE GLUCOSE Collected: 07/02/2017 Status: F Source: ANÍBAL 4:57 PM [facility] REPOSITORY TYPE CODE TESTS RESULT OUT OF REFERENCE UNITS RANGE LAB L501.080 70-110 mg/dL High BEDSIDE GLU 174 Result Comment: MANAGEMENT OF PATIENT CARE PER NURSING PROTOCOL Performed By: #### L501.080 #### [facility] Point of Care [address] [place] [address] BEDSIDE GLUCOSE Collected: 07/02/2017 Status: F Source: ANÍBAL 11:54 AM [facility] REPOSITORY TYPE CODE TESTS RESULT OUT OF REFERENCE UNITS RANGE LAB L501.080 70-110 mg/dL High BEDSIDE GLU 207 Result Comment: MANAGEMENT OF PATIENT CARE PER NURSING PROTOCOL Performed By: #### L501.080 #### [facility] Point of Care [address] [place] [address] BEDSIDE GLUCOSE Collected: 07/02/2017 Status: F Source: ANÍBAL 6:48 AM [facility] REPOSITORY TYPE CODE TESTS RESULT OUT OF RANGE REFERENCE UNITS LAB L501.080 70-110 mg/dL Normal BEDSIDE GLU 110 Result Comment: MANAGEMENT OF PATIENT CARE PER NURSING PROTOCOL Performed By: #### L501.080 #### [facility] Point of Care [address] [place], [place] [address] BASIC METABOLIC Collected: 07/02/2017 Status: F Source: ANÍBAL PROFILE (BMP) 5:20 AM [facility] REPOSITORY Order Comment: SPECIMEN OBTAINED FROM LINE DRAW TYPE CODE TESTS RESULT OUT OF RANGE REFERENCE UNITS LAB L501.0100 74-106 mg/dL High GLU 107 Result Comment: Fasting Glucose result from 100 to 125 mg/dL suggests IMPAIRED HOMEOSTASIS per A.D.A. criteria. Please note revised GLUCOSE reference range effective 2017. LAB L501.1000 7-18 mg/dL High BUN 34 LAB L501.1100 0.70-1.30 mg/dL Low CREAT,SERUM 0.64 Result Comment: The validity of the calculated GFR AND GFRAA in patients over 70 years has not been determined. Clinical correlation is essential. LAB L501.1110 >60 mL/min Normal EST GFR 135 Result Comment: Non- GFR Calc LAB L501.1115 >60 mL/min Normal EST GFR - AA 163 Result Comment: GFR Calc LAB L501.1255 ml/min Normal Estimated CRCL 136.41 LAB L501.1300 10-20 RATIO High BUN/CRE 52.7 LAB L501.2200 8.5-10 mg/dL .1 CA Normal 9.0 LAB L501.5300 136-14 mmol/L High 5 NA 148 LAB L501.5600 3.5-5. mmol/L Low 1 K 3.2 LAB L501.5900 98-107 mmol/L CL Normal 105 LAB L501.6100 21.0-3 mmol/L High 2.0 CO2 37.0 LAB L501.6200 5-15 GAP Normal 6 Performed By: #### L500.2500 #### [facility] [address] [place], [place], [id number] BEDSIDE GLUCOSE Collected: 07/01/2017 Status: F Source: ANÍBAL 9:04 PM [facility] REPOSITORY TYPE CODE TESTS RESULT OUT OF REFERENCE UNITS RANGE LAB L501.080 70-110 mg/dL High BEDSIDE GLU 164 Result Comment: MANAGEMENT OF PATIENT CARE PER NURSING PROTOCOL Performed By: #### L501.080 #### [facility] Point of Care [address] [place] [address] BEDSIDE GLUCOSE Collected: 07/01/2017 Status: F Source: ANÍBAL 4:25 PM [facility] REPOSITORY TYPE CODE TESTS RESULT OUT OF REFERENCE UNITS RANGE LAB L501.080 70-110 mg/dL High BEDSIDE GLU 213 Result Comment: MANAGEMENT OF PATIENT CARE PER NURSING PROTOCOL Performed By: #### L501.080 #### [facility] Point of Care [address] [place] [address] BEDSIDE GLUCOSE Collected: 07/01/2017 Status: F Source: ANÍBAL 11:47 AM [facility] REPOSITORY TYPE CODE TESTS RESULT OUT OF REFERENCE UNITS RANGE LAB L501.080 70-110 mg/dL High BEDSIDE GLU 208 Result Comment: MANAGEMENT OF PATIENT CARE PER NURSING PROTOCOL Performed By: #### L501.080 #### [facility] Point of Care [address] [place] [address] BEDSIDE GLUCOSE Collected: 07/01/2017 Status: F Source: ANÍBAL 6:09 AM [facility] REPOSITORY TYPE CODE TESTS RESULT OUT OF RANGE REFERENCE UNITS LAB L501.080 70-110 mg/dL Normal BEDSIDE GLU 102 Result Comment: MANAGEMENT OF PATIENT CARE PER NURSING PROTOCOL Performed By: #### L501.080 #### [facility] Point of Care [address] [place] [address] BASIC METABOLIC Collected: 07/01/2017 Status: F Source: ANÍBAL PROFILE (BMP) 4:15 AM [facility] REPOSITORY TYPE CODE TESTS RESULT OUT OF RANGE REFERENCE UNITS LAB L501.0100 74-106 mg/dL High GLU 112 Result Comment: Fasting Glucose result from 100 to 125 mg/dL suggests IMPAIRED HOMEOSTASIS per A.D.A. criteria. Please note revised GLUCOSE reference range effective 2017. LAB L501.1000 7-18 mg/dL High BUN 47 LAB L501.1100 0.70-1.30 mg/dL Normal CREAT,SERUM 0.81 Result Comment: The validity of the calculated GFR AND GFRAA in patients over 70 years has not been determined. Clinical correlation is essential. LAB L501.1110 >60 mL/min Normal EST GFR 104 Result Comment: Non- GFR Calc LAB L501.1115 >60 mL/min Normal EST GFR - AA 125 Result Comment: GFR Calc LAB L501.1255 ml/min Normal Estimated CRCL 107.78 LAB L501.1300 10-20 RATIO High BUN/CRE 58.0 LAB L501.2200 8.5-10 mg/dL .1 CA Normal 9.3 LAB L501.5300 136-14 mmol/L 5 NA Normal 145 LAB L501.5600 3.5-5. mmol/L Low 1 K 3.2 LAB L501.5900 98-107 mmol/L CL Normal 100 LAB L501.6100 21.0-3 mmol/L High 2.0 CO2 41.0 LAB L501.6200 5-15 Low GAP 4 Performed By: #### L500.2500 #### [facility] [address] [place], [address] BEDSIDE GLUCOSE Collected: 06/30/2017 Status: F Source: JAY 9:11 PM [facility] REPOSITORY TYPE CODE TESTS RESULT OUT OF REFERENCE UNITS RANGE LAB L501.080 70-110 mg/dL High BEDSIDE GLU 230 Result Comment: MANAGEMENT OF PATIENT CARE PER NURSING PROTOCOL Performed By: #### L501.080 #### [facility] Point of Care [address] [place] [address] BEDSIDE GLUCOSE Collected: 06/30/2017 Status: F Source: JAY 5:28 PM [facility] REPOSITORY TYPE CODE TESTS RESULT OUT OF REFERENCE UNITS RANGE LAB L501.080 70-110 mg/dL High BEDSIDE GLU 166 Result Comment: MANAGEMENT OF PATIENT CARE PER NURSING PROTOCOL Performed By: #### L501.080 #### [facility] Point of Care [address] [place] [address] BEDSIDE GLUCOSE Collected: 06/30/2017 Status: F Source: JAY 12:46 PM [facility] REPOSITORY TYPE CODE TESTS RESULT OUT OF REFERENCE UNITS RANGE LAB L501.080 70-110 mg/dL High BEDSIDE GLU 216 Result Comment: MANAGEMENT OF PATIENT CARE PER NURSING PROTOCOL Performed By: #### L501.080 #### [facility] Point of Care [address] [place], [place] [address] BASIC METABOLIC Collected: 06/30/2017 Status: F Source: ANÍBAL PROFILE (BMP) 8:15 AM [facility] REPOSITORY TYPE CODE TESTS RESULT OUT OF RANGE REFERENCE UNITS LAB L501.0100 74-106 mg/dL High GLU 158 Result Comment: Fasting Glucose result greater than or equal to 126 mg/dL suggests DIABETES MELLITUS per A.D.A. criteria. Please note revised GLUCOSE reference range effective 2017. LAB L501.1000 7-18 mg/dL High BUN 46 LAB L501.1100 0.70-1.30 mg/dL Normal CREAT,SERUM 0.72 Result Comment: The validity of the calculated GFR AND GFRAA in patients over 70 years has not been determined. Clinical correlation is essential. LAB L501.1110 >60 mL/min Normal EST GFR 118 Result Comment: Non- GFR Calc LAB L501.1115 >60 mL/min Normal EST GFR - AA 142 Result Comment: GFR Calc LAB L501.1255 ml/min Normal Estimated CRCL 121.25 LAB L501.1300 10-20 RATIO High BUN/CRE 63.4 LAB L501.2200 8.5-10 mg/dL .1 CA Normal 9.3 LAB L501.5300 136-14 mmol/L 5 NA Normal 140 LAB L501.5600 3.5-5. mmol/L 1 K Normal 3.7 LAB L501.5900 98-107 mmol/L Low CL 96 LAB L501.6100 21.0-3 mmol/L High 2.0 CO2 39.0 LAB L501.6200 5-15 GAP Normal 5 Performed By: #### L500.2500 #### [facility] [address] [place], [place], [address] BEDSIDE GLUCOSE Collected: 06/30/2017 Status: F Source: ANÍBAL 5:32 AM [facility] REPOSITORY TYPE CODE TESTS RESULT OUT OF REFERENCE UNITS RANGE LAB L501.080 70-110 mg/dL High BEDSIDE GLU 196 Result Comment: MANAGEMENT OF PATIENT CARE PER NURSING PROTOCOL Performed By: #### L501.080 #### [facility] Point of Care [address] [place] [address] BEDSIDE GLUCOSE Collected: 06/29/2017 Status: F Source: ANÍBAL 11:02 PM [facility] REPOSITORY TYPE CODE TESTS RESULT OUT OF REFERENCE UNITS RANGE LAB L501.080 70-110 mg/dL High BEDSIDE GLU 166 Result Comment: MANAGEMENT OF PATIENT CARE PER NURSING PROTOCOL Performed By: #### L501.080 #### [facility] Point of Care [address] [place] [address] BEDSIDE GLUCOSE Collected: 06/29/2017 Status: F Source: ANÍBAL 6:05 PM [facility] REPOSITORY TYPE CODE TESTS RESULT OUT OF REFERENCE UNITS RANGE LAB L501.080 70-110 mg/dL High BEDSIDE GLU 160 Result Comment: Insulin Given MANAGEMENT OF PATIENT CARE PER NURSING PROTOCOL Performed By: #### L501.080 #### [facility] Point of Care [address] [place] [address] BEDSIDE GLUCOSE Collected: 06/29/2017 Status: F Source: ANÍBAL 11:47 AM [facility] REPOSITORY TYPE CODE TESTS RESULT OUT OF REFERENCE UNITS RANGE LAB L501.080 70-110 mg/dL High BEDSIDE GLU 132 Result Comment: MANAGEMENT OF PATIENT CARE PER NURSING PROTOCOL Performed By: #### L501.080 #### [facility] Point of Care [address] [place] [address] CBC-COMPLETE BLOOD CNT Collected: 06/29/2017 Status: F Source: ANÍBAL NO DIFF 11:10 AM [facility] REPOSITORY Order Comment: Comments: 6H post procedure AND Q6H x 4 TYPE CODE TESTS RESULT OUT OF RANGE REFERENCE UNITS LAB L100.1000 4.4-11.0 K/mm3 Normal WBC 9.3 LAB L100.1200 4.6-6.2 M/mm3 Normal RBC 4.93 LAB L100.1300 13.0-16.5 g/dl Low HGB 12.7 LAB L100.1400 40-54 % Normal HCT 43.4 LAB L100.1500 80-94 fL Normal MCV 88.0 LAB L100.1600 27.0-32.0 pg Low MCH 25.8 LAB L100.1700 32-36 g/gl Low MCHC 29.3 LAB L100.1810 11.6-14.6 % High RDW CV 15.6 LAB L100.1820 35.1-43.9 fl High RDW SD 49.8 LAB L100.1900 150-450 K/mm3 Normal PLT 155 LAB L100.2000 6.2-12.0 fl Normal MPV 9.8 Performed By: #### L100.0500 #### [facility] [address] [place], [place], [address] BEDSIDE GLUCOSE Collected: 06/29/2017 Status: F Source: ANÍBAL 6:05 AM [facility] REPOSITORY TYPE CODE TESTS RESULT OUT OF REFERENCE UNITS RANGE LAB L501.080 70-110 mg/dL High BEDSIDE GLU 201 Result Comment: MANAGEMENT OF PATIENT CARE PER NURSING PROTOCOL Performed By: #### L501.080 #### [facility] Point of Care [address] [place] [address] [id number] CBC-COMPLETE BLOOD CNT Collected: 06/29/2017 Status: F Source: ANÍBAL NO DIFF 4:55 AM [facility] REPOSITORY Order Comment: Comments: 6H post procedure AND Q6H x 4 TYPE CODE TESTS RESULT OUT OF RANGE REFERENCE UNITS LAB L100.1000 4.4-11.0 K/mm3 Normal WBC 8.6 LAB L100.1200 4.6-6.2 M/mm3 Normal RBC 4.67 LAB L100.1300 13.0-16.5 g/dl Low HGB 12.0 LAB L100.1400 40-54 % Normal HCT 41.7 LAB L100.1500 80-94 fL Normal MCV 89.3 LAB L100.1600 27.0-32.0 pg Low MCH 25.7 LAB L100.1700 32-36 g/gl Low MCHC 28.8 LAB L100.1810 11.6-14.6 % High RDW CV 16.0 LAB L100.1820 35.1-43.9 fl High RDW SD 52.2 LAB L100.1900 150-450 K/mm3 Normal PLT 163 LAB L100.2000 6.2-12.0 fl Normal MPV 10.5 Performed By: #### L100.0500 #### [facility] [address] [facility] [address] [place], [place], [address] BASIC METABOLIC Collected: 06/29/2017 Status: F Source: ANÍBAL PROFILE (BMP) 4:55 AM [facility] REPOSITORY TYPE CODE TESTS RESULT OUT OF RANGE REFERENCE UNITS LAB L501.0100 74-106 mg/dL High GLU 186 Result Comment: Fasting Glucose result greater than or equal to 126 mg/dL suggests DIABETES MELLITUS per A.D.A. criteria. Please note revised GLUCOSE reference range effective 2017. LAB L501.1000 7-18 mg/dL High BUN 81 LAB L501.1100 0.70-1.30 mg/dL High CREAT,SERUM 1.33 Result Comment: The validity of the calculated GFR AND GFRAA in patients over 70 years has not been determined. Clinical correlation is essential. LAB L501.1110 >60 mL/min Low EST GFR 58 Result Comment: Non- GFR Calc LAB L501.1115 >60 mL/min Normal EST GFR - AA 71 Result Comment: GFR Calc LAB L501.1255 ml/min Normal Estimated CRCL 65.64 LAB L501.1300 10-20 RATIO High BUN/CRE 60.9 LAB L501.2200 8.5-10 mg/dL Normal .1 CA 8.5 LAB L501.5300 136-14 mmol/L Normal 5 NA 141 LAB L501.5600 3.5-5. mmol/L Low 1 K 3.2 LAB L501.5900 98-107 mmol/L Low CL 93 LAB L501.6100 21.0-3 mmol/L High 2.0 CO2 40.0 LAB L501.6200 5-15 Normal GAP 8 Performed By: #### L500.2500 #### [facility] [address] [facility] [place], [address] BEDSIDE GLUCOSE Collected: 06/29/2017 Status: F Source: ANÍBAL 12:06 AM [facility] REPOSITORY TYPE CODE TESTS RESULT OUT OF REFERENCE UNITS RANGE LAB L501.080 70-110 mg/dL High BEDSIDE GLU 158 Result Comment: MANAGEMENT OF PATIENT CARE PER NURSING PROTOCOL Performed By: #### L501.080 #### [facility] Point of Care [address] [place] [address] CBC-COMPLETE BLOOD CNT Collected: 06/28/2017 Status: F Source: ANÍBAL NO DIFF 11:05 PM [facility] REPOSITORY Order Comment: Comments: 6H post procedure AND Q6H x 4 TYPE CODE TESTS RESULT OUT OF RANGE REFERENCE UNITS LAB L100.1000 4.4-11.0 K/mm3 Normal WBC 8.4 LAB L100.1200 4.6-6.2 M/mm3 Normal RBC 4.71 LAB L100.1300 13.0-16.5 g/dl Low HGB 12.5 LAB L100.1400 40-54 % Normal HCT 42.8 LAB L100.1500 80-94 fL Normal MCV 90.9 LAB L100.1600 27.0-32.0 pg Low MCH 26.5 LAB L100.1700 32-36 g/gl Low MCHC 29.2 LAB L100.1810 11.6-14.6 % High RDW CV 16.0 LAB L100.1820 35.1-43.9 fl High RDW SD 52.5 LAB L100.1900 150-450 K/mm3 Normal PLT 193 LAB L100.2000 6.2-12.0 fl Normal MPV 11.0 Performed By: #### L100.0500 #### [facility] [address] [place], [address] CPK TOTAL, CREATINE Collected: 06/28/2017 Status: F Source: ANÍBAL KINASE 11:05 PM [facility] REPOSITORY TYPE CODE TESTS RESULT OUT OF RANGE REFERENCE UNITS LAB L501.3620 39-308 U/L Normal CPK TOTAL 89 Performed By: #### L501.3620 #### [facility] [address] [place], [address] BEDSIDE GLUCOSE Collected: 06/28/2017 Status: F Source: ANÍBAL 6:05 PM [facility] REPOSITORY TYPE CODE TESTS RESULT OUT OF REFERENCE UNITS RANGE LAB L501.080 70-110 mg/dL High BEDSIDE GLU 130 Result Comment: Dr Maldonado Followed MANAGEMENT OF PATIENT CARE PER NURSING PROTOCOL Performed By: #### L501.080 #### [facility] Point of Care [address] [place], [place] [address] CPK TOTAL, CREATINE Collected: 06/28/2017 Status: F Source: ANÍBAL KINASE 5:40 PM [facility] REPOSITORY TYPE CODE TESTS RESULT OUT OF RANGE REFERENCE UNITS LAB L501.3620 39-308 U/L Normal CPK TOTAL 69 Performed By: #### L501.3620 #### [facility] [address] [place], [place], [id number] CBC-COMPLETE BLOOD CNT Collected: 06/28/2017 Status: F Source: ANÍBAL NO DIFF 5:40 PM [facility] REPOSITORY Order Comment: Comments: 6H post procedure AND Q6H x 4 TYPE CODE TESTS RESULT OUT OF RANGE REFERENCE UNITS LAB L100.1000 4.4-11.0 K/mm3 Normal WBC 7.1 LAB L100.1200 4.6-6.2 M/mm3 Normal RBC 4.81 LAB L100.1300 13.0-16.5 g/dl Low HGB 12.5 LAB L100.1400 40-54 % Normal HCT 43.3 LAB L100.1500 80-94 fL Normal MCV 90.0 LAB L100.1600 27.0-32.0 pg Low MCH 26.0 LAB L100.1700 32-36 g/gl Low MCHC 28.9 LAB L100.1810 11.6-14.6 % High RDW CV 16.0 LAB L100.1820 35.1-43.9 fl High RDW SD 52.9 LAB L100.1900 150-450 K/mm3 Normal PLT 185 LAB L100.2000 6.2-12.0 fl Normal MPV 10.0 Performed By: #### L100.0500 #### [facility] [address] [place], [place], [address] BEDSIDE GLUCOSE Collected: 06/28/2017 Status: F Source: ANÍBAL 1:44 PM [facility] REPOSITORY TYPE CODE TESTS RESULT OUT OF REFERENCE UNITS RANGE LAB L501.080 70-110 mg/dL High BEDSIDE GLU 141 Result Comment: MANAGEMENT OF PATIENT CARE PER NURSING PROTOCOL Performed By: #### L501.080 #### [facility] Point of Care [address] [place] [address] BEDSIDE GLUCOSE Collected: 06/28/2017 Status: F Source: ANÍBAL 1:42 PM [facility] REPOSITORY TYPE CODE TESTS RESULT OUT OF REFERENCE UNITS RANGE LAB L501.080 70-110 mg/dL Low alert BEDSIDE GLU < 10 Result Comment: Repeat Test MANAGEMENT OF PATIENT CARE PER NURSING PROTOCOL Performed By: #### L501.080 #### [facility] Point of Care [address] [place] [address] ACT ACTIVATED CLOTTING Collected: 06/28/2017 Status: F Source: ANÍBAL TIME 1:27 PM [facility] REPOSITORY TYPE CODE TESTS RESULT OUT OF RANGE REFERENCE UNITS LAB L9100.0100 74-137 sec High ACTk CLOT 164 TIME Performed By: #### L9100.0100 #### [facility] Point of Care [address] [facility] [place] [address] CBC-COMPLETE BLOOD CNT Collected: 06/28/2017 Status: F Source: ANÍBAL NO DIFF 11:45 AM [facility] REPOSITORY Order Comment: Comments: 6H post procedure AND Q6H x 4 TYPE CODE TESTS RESULT OUT OF RANGE REFERENCE UNITS LAB L100.1000 4.4-11.0 K/mm3 Normal WBC 8.3 LAB L100.1200 4.6-6.2 M/mm3 Normal RBC 4.79 LAB L100.1300 13.0-16.5 g/dl Low HGB 12.8 LAB L100.1400 40-54 % Normal HCT 43.5 LAB L100.1500 80-94 fL Normal MCV 90.8 LAB L100.1600 27.0-32.0 pg Low MCH 26.7 LAB L100.1700 32-36 g/gl Low MCHC 29.4 LAB L100.1810 11.6-14.6 % High RDW CV 16.0 LAB L100.1820 35.1-43.9 fl High RDW SD 52.4 LAB L100.1900 150-450 K/mm3 Normal PLT 189 LAB L100.2000 6.2-12.0 fl Normal MPV 10.3 Performed By: #### L100.0500 #### [facility] [address] [place], [address] CPK TOTAL, CREATINE Collected: 06/28/2017 Status: F Source: ANÍBAL KINASE 11:45 AM [facility] REPOSITORY TYPE CODE TESTS RESULT OUT OF RANGE REFERENCE UNITS LAB L501.3620 39-308 U/L Normal CPK TOTAL 79 Performed By: #### L501.3620 #### [facility] [address] [place] [address] [place], [address] ACT ACTIVATED CLOTTING Collected: 06/28/2017 Status: F Source: ANÍBAL TIME 11:03 AM [facility] REPOSITORY TYPE CODE TESTS RESULT OUT OF RANGE REFERENCE UNITS LAB L9100.0100 74-137 sec High ACTk CLOT 186 TIME Performed By: #### L9100.0100 #### [facility] [address] [place] [address] BLOOD GASES BY CPS Collected: 06/28/2017 Status: F Source: ANÍBAL 7:26 AM [facility] REPOSITORY TYPE CODE TESTS RESULT OUT OF RANGE REFERENCE UNITS LAB L9000.9990 Normal BLD GAS TYPE ART LAB L9001.1000 Normal SITE R Radial LAB L9001.1048 Normal Mode A-C LAB L9001.1050 O2 Normal Delivery Dev Vent LAB L9001.1065 Vt Normal 450 LAB L9001.1070 RR Normal 12 LAB L9001.1074 Normal FI02 55 LAB L9001.1076 Normal PEEP 10 LAB L9001.1104 Normal Results To ICU LAB L9001.1105 Normal Time Given 725 LAB L9001.1110 7.35-7.45 High pH - I-STAT 7.46 LAB L9001.1210 35-45 mmHg High alert pCO2 - ISTAT 68.5 LAB L9001.1310 75-100 mmHG Low PO2 I-STAT 55 LAB L9001.2300 22-26 mmol/L High HCO3 ISTAT 48.3 LAB L9001.2400 -2 to +2 mmol/L High BE ISTAT 24 LAB L9001.2415 mmol/L Normal TOTAL CO2 > 50 ISTAT LAB L9001.2425 95-99 % Low SO2 ISTAT 88 Performed By: #### L9000.0800 #### [facility] Point of Care [address] [place] [address] CHEST 1 VIEW Observed: 06/28/2017 Status: F Source: ANÍBAL (PORTABLE) 7:02 AM [facility] REPOSITORY [facility] Imaging Services [address] [place] [address] Chest 1 View (Portable) MR#: [id number] Acct: [id number] Name: ALEJO MCGARRY Rep #: [id number] : 1960 57 From: Akhil Izquierdo MD PCP: Tio Parker Status: ADM IN Study: Chest 1 View (Portable) Date of Exam: 06/28/17 Exam# [id number] Ordering Dr: Dominick Denny DO STUDY: X-RAY CHEST REASON FOR EXAM: Male, 57 years old. Endotracheal tube repositioning. TECHNIQUE: Single AP portable view of the chest. COMPARISON: Comparison is made with prior study dated June 27, 2017. FINDINGS: The tip of the endotracheal tube is at 5.3 cm proximal to the byron. The tip of the enteric tube is below the left hemidiaphragm. EKG electrodes are seen. Improved aeration of the right lung base. Slight increase in left pleural effusion with underlying left basilar atelectasis. Normal size heart. Normal mediastinum and marta. Normal visualized pulmonary arteries. There is atherosclerotic tortuosity of the aortic arch and descending thoracic aorta. Normal visualized thoracic spine. Normal visualized ribs, clavicles, and shoulders. There is no demonstrated abnormality of the visualized soft tissue structures of the upper abdomen. RAD/Chest 1 View (Portable) IMPRESSION: The tip of the endotracheal tube is at 5.3 cm proximal to the byron. Slight increase in the blunting of the left costophrenic angle. Electronically Signed: Akhil Izquierdo MD at 11:01 EDT Tel [phone], Service support , CC: Dominick Denny D.O.; Tio Parker Clerk Cashier: Signed Observed: 06/28/2017 Status: F Source: ANÍBAL CULTURE, SPUTUM 6:55 AM [facility] REPOSITORY Gram Stain Acceptable Specimen? Yes (<25 Epithelial cells per/lpf) Gram Stain Rare White Blood Cells 2+ Gram negative rods Resp. Culture NO other normal respiratory lynne isolated There are no CLSI standards for interpretation of this Drug/Organism combination. ORGANISM 1: Corynebacterium striatum Amount Growth 3+ Performed By: #### M100.0800 #### [facility] [address] [place], [place], [address] BEDSIDE GLUCOSE Collected: 06/28/2017 Status: F Source: JAY 5:25 AM [facility] REPOSITORY TYPE CODE TESTS RESULT OUT OF REFERENCE UNITS RANGE LAB L501.080 70-110 mg/dL High BEDSIDE GLU 184 Result Comment: MANAGEMENT OF PATIENT CARE PER NURSING PROTOCOL Performed By: #### L501.080 #### [facility] Point of Care [address] [place], [place] [address] CBC W/DIFF, AUTOMATED Collected: 06/28/2017 Status: F Source: JAY 4:00 AM [facility] REPOSITORY TYPE CODE TESTS RESULT OUT OF RANGE REFERENCE UNITS LAB L100.1000 4.4-11.0 K/mm3 Normal WBC 9.8 LAB L100.1200 4.6-6.2 M/mm3 Normal RBC 5.04 LAB L100.1300 13.0-16.5 g/dl Normal HGB 13.2 LAB L100.1400 40-54 % Normal HCT 46.5 LAB L100.1500 80-94 fL Normal MCV 92.3 LAB L100.1600 27.0-32.0 pg Low MCH 26.2 LAB L100.1700 32-36 g/gl Low MCHC 28.4 LAB L100.1810 11.6-14.6 % High RDW CV 16.2 LAB L100.1820 35.1-43.9 fl High RDW SD 53.5 LAB L100.1900 150-450 K/mm3 Normal PLT 167 LAB L100.2000 6.2-12.0 fl Normal MPV 10.9 LAB L100.2100 47-70 % Normal NEUT% 68.4 LAB L100.2200 19-41 % Low LY% 16.4 LAB L100.2300 0-10 % Normal MONO% 10.0 LAB L100.2400 0-5 % Normal EO% 4.6 LAB L100.2500 0-1 % Normal BASO% 0.3 LAB L100.2550 0.0-0.9 % Normal IM GRAN % 0.300 Result Comment: IG% - Immature Granulocytes (promyelocytes, myelocytes and metamyelocytes) > 1% indicates that a LEFT SHIFT is Present. LAB L100.2620 2.0-7.7 X10 3/uL Normal Absolute Neut 6.7 LAB L100.2720 0.83-4.51 X10 3/ul Normal Absolute Lymph 1.60 Performed By: #### L100.0100 #### [facility] [address] [place], [place], [id number] PROTHROMBIN TIME W/INR Collected: 06/28/2017 Status: F Source: ANÍBAL 4:00 AM [facility] REPOSITORY TYPE CODE TESTS RESULT OUT OF RANGE REFERENCE UNITS LAB L300.4150 11.7-14.9 SECONDS Normal PROTIME 13.9 LAB L300.4200 Normal INR 1.1 Performed By: #### L300.3900, L300.4310 #### [facility] [address] [place], [place], [address] PARTIAL THROMBOPLAST Collected: 06/28/2017 Status: F Source: JAY TIME 4:00 AM [facility] REPOSITORY TYPE CODE TESTS RESULT OUT OF RANGE REFERENCE UNITS LAB L300.4310 24.1-36.2 Seconds Normal PTT 26.7 Performed By: #### L300.3900, L300.4310 #### [facility] [address] [place], [address] BASIC METABOLIC Collected: 06/28/2017 Status: F Source: JAY PROFILE (BMP) 4:00 AM [facility] REPOSITORY TYPE CODE TESTS RESULT OUT OF RANGE REFERENCE UNITS LAB L501.0100 74-106 mg/dL High GLU 184 Result Comment: Fasting Glucose result greater than or equal to 126 mg/dL suggests DIABETES MELLITUS per A.D.A. criteria. Please note revised GLUCOSE reference range effective 2017. LAB L501.1000 7-18 mg/dL High BUN 72 LAB L501.1100 0.70-1.30 mg/dL Normal CREAT,SERUM 1.08 Result Comment: The validity of the calculated GFR AND GFRAA in patients over 70 years has not been determined. Clinical correlation is essential. LAB L501.1110 >60 mL/min Normal EST GFR 74 Result Comment: Non- GFR Calc LAB L501.1115 >60 mL/min Normal EST GFR - AA 90 Result Comment: GFR Calc LAB L501.1255 ml/min Normal Estimated CRCL 80.83 LAB L501.1300 10-20 RATIO High BUN/CRE 66.7 LAB L501.2200 8.5-10 mg/dL Normal .1 CA 9.2 LAB L501.5300 136-14 mmol/L High 5 NA 147 LAB L501.5600 3.5-5. mmol/L Low 1 K 3.3 LAB L501.5900 98-107 mmol/L Low CL 97 LAB L501.6100 21.0-3 mmol/L High 2.0 CO2 alert > 45.0 Result Comment: Critical Result(s) Called at: 05:21:37 06/28/2017 by: DION WADE,RETAIL EQUIPMENT ASSOCIATE LAB L501.6200 5-15 Normal Test not performed GAP Performed By: #### L500.2500 #### [facility] [address] [place], [address] MAGNESIUM Collected: 06/28/2017 Status: F Source: ANÍBAL 4:00 AM [facility] REPOSITORY TYPE CODE TESTS RESULT OUT OF RANGE REFERENCE UNITS LAB L501.5200 1.6-2.6 mg/dL High MG 3.7 Performed By: #### L501.5200 #### [facility] [address] [place], [address] BNP,B-TYPE NATRIURETIC Collected: 06/28/2017 Status: F Source: ANÍBAL PEPTIDE 4:00 AM [facility] REPOSITORY TYPE CODE TESTS RESULT OUT OF RANGE REFERENCE UNITS LAB L503.6620 0-100 pg/mL Normal B-TYPE 35.7 YOVANA PEP Performed By: #### L503.6620 #### [facility] [address] [place], [place], [address] BEDSIDE GLUCOSE Collected: 06/28/2017 Status: F Source: ANÍBAL 12:22 AM [facility] REPOSITORY TYPE CODE TESTS RESULT OUT OF REFERENCE UNITS RANGE LAB L501.080 70-110 mg/dL High BEDSIDE GLU 185 Result Comment: MANAGEMENT OF PATIENT CARE PER NURSING PROTOCOL Performed By: #### L501.080 #### [facility] Point of Care [address] [place] [address] BEDSIDE GLUCOSE Collected: 06/27/2017 Status: F Source: ANÍBAL 5:45 PM [facility] REPOSITORY TYPE CODE TESTS RESULT OUT OF REFERENCE UNITS RANGE LAB L501.080 70-110 mg/dL High BEDSIDE GLU 157 Result Comment: MANAGEMENT OF PATIENT CARE PER NURSING PROTOCOL Performed By: #### L501.080 #### [facility] Point of Care [address] [place] [address] BEDSIDE GLUCOSE Collected: 06/27/2017 Status: F Source: ANÍBAL 11:56 AM [facility] REPOSITORY TYPE CODE TESTS RESULT OUT OF REFERENCE UNITS RANGE LAB L501.080 70-110 mg/dL High BEDSIDE GLU 182 Result Comment: MANAGEMENT OF PATIENT CARE PER NURSING PROTOCOL Performed By: #### L501.080 #### [facility] Point of Care [address] [place] [address] CHEST 1 VIEW Observed: 06/27/2017 Status: F Source: ANÍBAL (PORTABLE) 7:26 AM [facility] REPOSITORY [facility] Imaging Services [address] [place] [address] Chest 1 View (Portable) MR#: [id number] Acct: [id number] Name: ALEJO MCGARRY Rep #: [id number] : 1960 M 57 From: Akhil Izquierdo MD PCP: Tio Parker Status: ADM IN Study: Chest 1 View (Portable) Date of Exam: 06/27/17 Exam# [id number] Ordering Dr: Dmoinick Denny DO STUDY: X-RAY CHEST REASON FOR EXAM: Male, 57 years old. Shortness of breath. TECHNIQUE: Single AP portable view of the chest. COMPARISON: Comparison is made with prior study dated June 25, 2017. FINDINGS: An endotracheal tube is in situ. The tip is at 6.4 cm proximal to the byron. An enteric tube is seen with tip below the left hemidiaphragm. EKG electrodes are seen. Increasing atelectasis and/or infiltrate at the right lung base with blunting of the right costophrenic angle. Atelectasis and/or early infiltrate at the left lung base. This is unchanged. Blunting of the left prosthetic ankle. Normal size heart. Normal mediastinum and marta. Normal visualized pulmonary arteries. There is atherosclerotic tortuosity of the aortic arch and descending thoracic aorta. There are diffuse degenerative changes of the visualized thoracic spine. Normal visualized ribs, clavicles, and shoulders. There is no demonstrated abnormality of the visualized soft tissue structures of the upper abdomen. RAD/Chest 1 View (Portable) IMPRESSION: Increasing right basilar atelectasis and/or infiltrate. The remaining examination is unchanged. Electronically Signed: Akhil Izquierdo MD at 12:57 EDT Tel [phone], Service support , CC: Dominick Denny D.O.; Tio Parker Clerk Cashier: Signed BASIC METABOLIC Collected: 06/27/2017 Status: F Source: ANÍBAL PROFILE (BMP) 5:24 AM [facility] REPOSITORY TYPE CODE TESTS RESULT OUT OF RANGE REFERENCE UNITS LAB L501.0100 74-106 mg/dL High GLU 170 Result Comment: Fasting Glucose result greater than or equal to 126 mg/dL suggests DIABETES MELLITUS per A.D.A. criteria. Please note revised GLUCOSE reference range effective 2017. LAB L501.1000 7-18 mg/dL High BUN 56 LAB L501.1100 0.70-1.30 mg/dL Normal CREAT,SERUM 1.01 Result Comment: The validity of the calculated GFR AND GFRAA in patients over 70 years has not been determined. Clinical correlation is essential. LAB L501.1110 >60 mL/min Normal EST GFR 80 Result Comment: Non- GFR Calc LAB L501.1115 >60 mL/min Normal EST GFR - AA 97 Result Comment: GFR Calc LAB L501.1255 ml/min Normal Estimated CRCL 86.44 LAB L501.1300 10-20 RATIO High BUN/CRE 55.4 LAB L501.2200 8.5-10 mg/dL Normal .1 CA 9.4 LAB L501.5300 136-14 mmol/L High 5 NA 152 LAB L501.5600 3.5-5. mmol/L Normal 1 K 3.6 LAB L501.5900 98-107 mmol/L Normal CL 101 LAB L501.6100 21.0-3 mmol/L High 2.0 CO2 45.0 LAB L501.6200 5-15 Normal GAP 6 Performed By: #### L500.2500 #### [facility] [address] [facility] [place], [address] PHOSPHORUS Collected: 06/27/2017 Status: F Source: JAY 5:24 AM [facility] REPOSITORY TYPE CODE TESTS RESULT OUT OF RANGE REFERENCE UNITS LAB L501.2300 2.5-4.9 mg/dL Normal PHOS 3.8 Performed By: #### L501.2300, L501.5200 #### [facility] [address] [place], [address] MAGNESIUM Collected: 06/27/2017 Status: F Source: JAY 5:24 AM [facility] REPOSITORY TYPE CODE TESTS RESULT OUT OF RANGE REFERENCE UNITS LAB L501.5200 1.6-2.6 mg/dL High MG 3.1 Performed By: #### L501.2300, L501.5200 #### [facility] [address] [place], [address] BEDSIDE GLUCOSE Collected: 06/27/2017 Status: F Source: ANÍBAL 5:17 AM [facility] REPOSITORY TYPE CODE TESTS RESULT OUT OF REFERENCE UNITS RANGE LAB L501.080 70-110 mg/dL High BEDSIDE GLU 184 Result Comment: MANAGEMENT OF PATIENT CARE PER NURSING PROTOCOL Performed By: #### L501.080 #### [facility] Point of Care [address] [place] [address] BEDSIDE GLUCOSE Collected: 06/26/2017 Status: F Source: ANÍBAL 11:24 PM [facility] REPOSITORY TYPE CODE TESTS RESULT OUT OF REFERENCE UNITS RANGE LAB L501.080 70-110 mg/dL High BEDSIDE GLU 192 Result Comment: MANAGEMENT OF PATIENT CARE PER NURSING PROTOCOL Performed By: #### L501.080 #### [facility] Point of Care [address] [place] [address] BEDSIDE GLUCOSE Collected: 06/26/2017 Status: F Source: ANÍBAL 5:38 PM [facility] REPOSITORY TYPE CODE TESTS RESULT OUT OF REFERENCE UNITS RANGE LAB L501.080 70-110 mg/dL High BEDSIDE GLU 150 Result Comment: MANAGEMENT OF PATIENT CARE PER NURSING PROTOCOL Performed By: #### L501.080 #### [facility] Point of Care [address] [place] [address] BEDSIDE GLUCOSE Collected: 06/26/2017 Status: F Source: ANÍBAL 11:45 AM [facility] REPOSITORY TYPE CODE TESTS RESULT OUT OF REFERENCE UNITS RANGE LAB L501.080 70-110 mg/dL High BEDSIDE GLU 159 Result Comment: MANAGEMENT OF PATIENT CARE PER NURSING PROTOCOL Performed By: #### L501.080 #### [facility] Point of Care [address] [place] [address] BEDSIDE GLUCOSE Collected: 06/26/2017 Status: F Source: ANÍBAL 5:12 AM [facility] REPOSITORY TYPE CODE TESTS RESULT OUT OF REFERENCE UNITS RANGE LAB L501.080 70-110 mg/dL High BEDSIDE GLU 168 Result Comment: MANAGEMENT OF PATIENT CARE PER NURSING PROTOCOL Performed By: #### L501.080 #### [facility] Point of Care [address] [place] [address] PHOSPHORUS Collected: 06/26/2017 Status: F Source: ANÍBAL 5:10 AM [facility] REPOSITORY TYPE CODE TESTS RESULT OUT OF RANGE REFERENCE UNITS LAB L501.2300 2.5-4.9 mg/dL High PHOS 5.1 Performed By: #### L501.2300, L501.5200 #### [facility] [address] [place], [address] MAGNESIUM Collected: 06/26/2017 Status: F Source: ANÍBAL 5:10 AM [facility] REPOSITORY TYPE CODE TESTS RESULT OUT OF RANGE REFERENCE UNITS LAB L501.5200 1.6-2.6 mg/dL High MG 2.9 Performed By: #### L501.2300, L501.5200 #### [facility] [address] [place], [address] BASIC METABOLIC Collected: 06/26/2017 Status: F Source: ANÍBAL PROFILE (BMP) 5:10 AM [facility] REPOSITORY TYPE CODE TESTS RESULT OUT OF RANGE REFERENCE UNITS LAB L501.0100 74-106 mg/dL High GLU 148 Result Comment: Fasting Glucose result greater than or equal to 126 mg/dL suggests DIABETES MELLITUS per A.D.A. criteria. Please note revised GLUCOSE reference range effective 2017. LAB L501.1000 7-18 mg/dL High BUN 44 LAB L501.1100 0.70-1.30 mg/dL Normal CREAT,SERUM 0.90 Result Comment: The validity of the calculated GFR AND GFRAA in patients over 70 years has not been determined. Clinical correlation is essential. LAB L501.1110 >60 mL/min Normal EST GFR 92 Result Comment: Non- GFR Calc LAB L501.1115 >60 mL/min Normal EST GFR - AA 112 Result Comment: GFR Calc LAB L501.1255 ml/min Normal Estimated CRCL 97.00 LAB L501.1300 10-20 RATIO High BUN/CRE 49.1 LAB L501.2200 8.5-10 mg/dL Normal .1 CA 9.3 LAB L501.5300 136-14 mmol/L High 5 NA 148 LAB L501.5600 3.5-5. mmol/L Normal 1 K 3.7 LAB L501.5900 98-107 mmol/L Low CL 97 LAB L501.6100 21.0-3 mmol/L High 2.0 CO2 45.0 LAB L501.6200 5-15 Normal GAP 6 Performed By: #### L500.2500 #### [facility] [address] [facility] [address] [place], [address] BEDSIDE GLUCOSE Collected: 06/25/2017 Status: F Source: ANÍBAL 11:32 PM [facility] REPOSITORY TYPE CODE TESTS RESULT OUT OF REFERENCE UNITS RANGE LAB L501.080 70-110 mg/dL High BEDSIDE GLU 175 Result Comment: MANAGEMENT OF PATIENT CARE PER NURSING PROTOCOL Performed By: #### L501.080 #### [facility] Point of Care [address] [place] [address] BEDSIDE GLUCOSE Collected: 06/25/2017 Status: F Source: JAY 6:41 PM [facility] REPOSITORY TYPE CODE TESTS RESULT OUT OF REFERENCE UNITS RANGE LAB L501.080 70-110 mg/dL High BEDSIDE GLU 159 Result Comment: MANAGEMENT OF PATIENT CARE PER NURSING PROTOCOL Performed By: #### L501.080 #### [facility] Point of Care [address] [place] [address] BEDSIDE GLUCOSE Collected: 06/25/2017 Status: F Source: JAY 12:13 PM [facility] REPOSITORY TYPE CODE TESTS RESULT OUT OF RANGE REFERENCE UNITS LAB L501.080 70-110 mg/dL Normal BEDSIDE GLU 110 Result Comment: MANAGEMENT OF PATIENT CARE PER NURSING PROTOCOL Performed By: #### L501.080 #### [facility] Point of Care [address] [place] [address] CHEST 1 VIEW Observed: 06/25/2017 Status: F Source: ANÍBAL (PORTABLE) 10:35 AM [facility] REPOSITORY [facility] Imaging Services [address] [place], [place] [address] [place] [address] Chest 1 View (Portable) MR#: [id number] Acct: [id number] Name: ALEJO MCAGRRY Rep #: [id number] : 1960 M 57 From: Katya Tsang MD PCP: Tio Parker Status: ADM IN Study: Chest 1 View (Portable) Date of Exam: 06/25/17 Exam# [id number] Ordering Dr: Jeffrey Campos MD STUDY: X-RAY CHEST REASON FOR EXAM: Male, 57 years old. Orogastric tube placement. TECHNIQUE: Single AP portable view of the chest and AP radiograph of the abdomen. COMPARISON: June 20, 2017. FINDINGS: Patient is intubated. The tip of endotracheal tube is at the aortic arch. Enteric tube is present with the distal and probably within the distal stomach. The lungs are underexpanded. There is heterogeneous left basilar airspace consolidation and/or atelectasis. There is a focal opacity in the right upper lobe that may represent airspace disease as well. There is no demonstrated pleural abnormality. There is mild cardiac enlargement. Normal mediastinum and marta. Normal visualized pulmonary arteries. There is atherosclerotic calcification of the aortic arch with tortuosity. There is multilevel thoracic spondylosis. Normal visualized ribs, clavicles, and shoulders. There is no demonstrated abnormality of the visualized soft tissue structures of the upper abdomen. RAD/Chest 1 View (Portable) IMPRESSION: 1. Enteric tube is in appropriate position. 2. Improved aeration of the right lung since the previous study. Electronically Signed: Katya Tsang MD at 12:08 EDT , Service support , CC: Jeffrey Campos MD; Tio Parker Clerk Cashier: Signed BEDSIDE GLUCOSE Collected: 06/25/2017 Status: F Source: ANÍBAL 5:34 AM [facility] REPOSITORY TYPE CODE TESTS RESULT OUT OF REFERENCE UNITS RANGE LAB L501.080 70-110 mg/dL High BEDSIDE GLU 136 Result Comment: Dr Maldonado Followed MANAGEMENT OF PATIENT CARE PER NURSING PROTOCOL Performed By: #### L501.080 #### [facility] Point of Care [address] [place] [address] BLOOD GASES BY CPS Collected: 06/25/2017 Status: F Source: ANÍBAL 5:07 AM [facility] REPOSITORY TYPE CODE TESTS RESULT OUT OF RANGE REFERENCE UNITS LAB L9000.9990 Normal BLD GAS TYPE ART LAB L9001.1000 Normal SITE R Radial LAB L9001.1010 Normal ELIZABETH TEST POS LAB L9001.1048 Normal Mode A-C LAB L9001.1050 O2 Normal Delivery Dev Vent LAB L9001.1060 MV Normal 7.00 LAB L9001.1065 Vt Normal 450 LAB L9001.1070 RR Normal 16 LAB L9001.1074 Normal FI02 70 LAB L9001.1076 Normal PEEP 12 LAB L9001.1104 Normal Results To ICU LAB L9001.1105 Normal Time Given 500 LAB L9001.1110 7.35-7.45 High pH - I-STAT 7.50 LAB L9001.1210 35-45 mmHg High pCO2 - ISTAT 65.0 LAB L9001.1310 75-100 mmHG Low PO2 I-STAT 61 LAB L9001.2300 22-26 mmol/L High HCO3 ISTAT 51.1 LAB L9001.2400 -2 to +2 mmol/L High BE ISTAT 28 LAB L9001.2415 mmol/L Normal TOTAL CO2 > 50 ISTAT LAB L9001.2425 95-99 % Low SO2 ISTAT 92 Performed By: #### L9000.0800 #### [facility] Point of Care [address] [place] [address] CBC W/DIFF, AUTOMATED Collected: 06/25/2017 Status: F Source: ANÍBAL 3:45 AM [facility] REPOSITORY TYPE CODE TESTS RESULT OUT OF RANGE REFERENCE UNITS LAB L100.1000 4.4-11.0 K/mm3 Normal WBC 8.4 LAB L100.1200 4.6-6.2 M/mm3 Normal RBC 4.96 LAB L100.1300 13.0-16.5 g/dl Low HGB 12.8 LAB L100.1400 40-54 % Normal HCT 44.1 LAB L100.1500 80-94 fL Normal MCV 88.9 LAB L100.1600 27.0-32.0 pg Low MCH 25.8 LAB L100.1700 32-36 g/gl Low MCHC 29.0 LAB L100.1810 11.6-14.6 % High RDW CV 16.3 LAB L100.1820 35.1-43.9 fl High RDW SD 53.8 LAB L100.1900 150-450 K/mm3 Normal PLT 186 LAB L100.2000 6.2-12.0 fl Normal MPV 9.6 LAB L100.2100 47-70 % Normal NEUT% 66.2 LAB L100.2200 19-41 % Normal LY% 19.8 LAB L100.2300 0-10 % High MONO% 10.9 LAB L100.2400 0-5 % Normal EO% 2.8 LAB L100.2500 0-1 % Normal BASO% 0.2 LAB L100.2550 0.0-0.9 % Normal IM GRAN % 0.100 Result Comment: IG% - Immature Granulocytes (promyelocytes, myelocytes and metamyelocytes) > 1% indicates that a LEFT SHIFT is Present. LAB L100.2620 2.0-7.7 X10 3/uL Normal Absolute Neut 5.5 LAB L100.2720 0.83-4.51 X10 3/ul Normal Absolute Lymph 1.65 Performed By: #### L100.0100 #### [facility] [address] [place], [address] BASIC METABOLIC Collected: 06/25/2017 Status: F Source: JAY PROFILE ([facility]) 3:45 AM [facility] REPOSITORY TYPE CODE TESTS RESULT OUT OF RANGE REFERENCE UNITS LAB L501.0100 74-106 mg/dL High GLU 134 Result Comment: Fasting Glucose result greater than or equal to 126 mg/dL suggests DIABETES MELLITUS per A.D.A. criteria. Please note revised GLUCOSE reference range effective 2017. LAB L501.1000 7-18 mg/dL High BUN 38 LAB L501.1100 0.70-1.30 mg/dL Normal CREAT,SERUM 0.80 Result Comment: The validity of the calculated GFR AND GFRAA in patients over 70 years has not been determined. Clinical correlation is essential. LAB L501.1110 >60 mL/min Normal EST GFR 105 Result Comment: Non- GFR Calc LAB L501.1115 >60 mL/min Normal EST GFR - AA 127 Result Comment: GFR Calc LAB L501.1255 ml/min Normal Estimated CRCL 109.13 LAB L501.1300 10-20 RATIO High BUN/CRE 47.5 LAB L501.2200 8.5-10 mg/dL .1 CA Normal 8.9 LAB L501.5300 136-14 mmol/L 5 NA Normal 145 LAB L501.5600 3.5-5. mmol/L 1 K Normal 3.5 LAB L501.5900 98-107 mmol/L Low CL 95 LAB L501.6100 21.0-3 mmol/L High 2.0 CO2 alert > 45.0 Result Comment: Critical Result(s) Called at: 04:34:24 06/25/2017 by: LATRICIA DELGADO to Kaylie Boyd LAB L501.6200 5-15 Normal Test not performed GAP Performed By: #### L500.2500, L501.2300, L501.5200 #### [facility] [address] [place], [place], [address] PHOSPHORUS Collected: 06/25/2017 Status: F Source: ANÍBAL 3:45 AM [facility] REPOSITORY TYPE CODE TESTS RESULT OUT OF RANGE REFERENCE UNITS LAB L501.2300 2.5-4.9 mg/dL Normal PHOS 4.7 Performed By: #### L500.2500, L501.2300, L501.5200 #### [facility] [address] [place], [address] MAGNESIUM Collected: 06/25/2017 Status: F Source: ANÍBAL 3:45 AM [facility] REPOSITORY TYPE CODE TESTS RESULT OUT OF RANGE REFERENCE UNITS LAB L501.5200 1.6-2.6 mg/dL Normal MG 2.6 Performed By: #### L500.2500, L501.2300, L501.5200 #### [facility] [address] [place], [address] CHEST 1 VIEW Observed: 06/25/2017 Status: F Source: ANÍBAL (PORTABLE) 12:00 AM [facility] REPOSITORY [facility] Imaging Services [address] [place] [address] Chest 1 View (Portable) MR#: [id number] Acct: [id number] Name: ALEJO MCGARRY Rep #: [id number] : 1960 M 57 From: Laura Duarte MD PCP: Tio Parker Status: ADM IN Study: Chest 1 View (Portable) Date of Exam: 06/25/17 Exam# [id number] Ordering Dr: Nelson Zimmerman DO STUDY: X-RAY CHEST REASON FOR EXAM: Male, 57 years old. SHORTNESS OF BREATH/DYSPNEA There is a TECHNIQUE: Single AP portable view of the chest. COMPARISON: 06/20/2017 FINDINGS: Patient is intubated. The tip of endotracheal tube is at the aortic arch. Enteric tube is present with the distal and probably within the distal stomach. The lungs are underexpanded. There is heterogeneous left upper lobe and lower lobe airspace consolidation and/or atelectasis. There is a focal opacity in the right upper lobe that may represent airspace disease has improved since the previous study. There is no demonstrated pleural abnormality. There is mild cardiac enlargement. Normal mediastinum and marta. Normal visualized pulmonary arteries. There is atherosclerotic calcification of the aortic arch with tortuosity. There is multilevel thoracic spondylosis. Normal visualized ribs, clavicles, and shoulders. There is no demonstrated abnormality of the visualized soft tissue structures of the upper abdomen. RAD/Chest 1 View (Portable) IMPRESSION: 1. Enteric tube is in appropriate position. 2. Improved aeration of the right lung since the previous study. Persistent airspace disease in the left lung may represent pneumonia. Electronically Signed: Laura Duarte MD at 7:56 EDT Tel , Service support , CC: Nelson Tersneha Parker Clerk Cashier: Signed BEDSIDE GLUCOSE Collected: 06/24/2017 Status: F Source: ANÍBAL 11:51 PM [facility] REPOSITORY TYPE CODE TESTS RESULT OUT OF REFERENCE UNITS RANGE LAB L501.080 70-110 mg/dL High BEDSIDE GLU 155 Result Comment: Dr Maldonado Followed MANAGEMENT OF PATIENT CARE PER NURSING PROTOCOL Performed By: #### L501.080 #### [facility] Point of Care [address] [place] [address] BEDSIDE GLUCOSE Collected: 06/24/2017 Status: F Source: ANÍBAL 5:48 PM [facility] REPOSITORY TYPE CODE TESTS RESULT OUT OF REFERENCE UNITS RANGE LAB L501.080 70-110 mg/dL High BEDSIDE GLU 130 Result Comment: MANAGEMENT OF PATIENT CARE PER NURSING PROTOCOL Performed By: #### L501.080 #### [facility] Point of Care [address] [place] [address] BASIC METABOLIC Collected: 06/24/2017 Status: F Source: ANÍBAL PROFILE (BMP) 3:35 PM [facility] REPOSITORY TYPE CODE TESTS RESULT OUT OF RANGE REFERENCE UNITS LAB L501.0100 74-106 mg/dL Normal GLU 100 Result Comment: Fasting Glucose result from 100 to 125 mg/dL suggests IMPAIRED HOMEOSTASIS per A.D.A. criteria. Please note revised GLUCOSE reference range effective 2017. LAB L501.1000 7-18 mg/dL High BUN 34 LAB L501.1100 0.70-1.30 mg/dL Normal CREAT,SERUM 0.82 Result Comment: The validity of the calculated GFR AND GFRAA in patients over 70 years has not been determined. Clinical correlation is essential. LAB L501.1110 >60 mL/min Normal EST GFR 103 Result Comment: Non- GFR Calc LAB L501.1115 >60 mL/min Normal EST GFR - AA 124 Result Comment: GFR Calc LAB L501.1255 ml/min Normal Estimated CRCL 106.46 LAB L501.1300 10-20 RATIO High 41.6 BUN/CRE LAB L501.2200 8.5-10 mg/dL .1 CA 8.7 Normal LAB L501.5300 136-14 mmol/L 5 NA 142 Normal LAB L501.5600 3.5-5. mmol/L 1 K 3.7 Normal LAB L501.5900 98-107 mmol/L Low CL 93 LAB L501.6100 21.0-3 mmol/L High 2.0 CO2 > alert 45.0 LAB L501.6200 5-15 GAP Test Normal not performed Performed By: #### L500.2500, L501.2300, L501.5200 #### [facility] [address] [place], [address] PHOSPHORUS Collected: 06/24/2017 Status: F Source: JAY 3:35 PM [facility] REPOSITORY TYPE CODE TESTS RESULT OUT OF RANGE REFERENCE UNITS LAB L501.2300 2.5-4.9 mg/dL Normal PHOS 4.2 Performed By: #### L500.2500, L501.2300, L501.5200 #### [facility] [address] [place], [address] MAGNESIUM Collected: 06/24/2017 Status: F Source: JAY 3:35 PM [facility] REPOSITORY TYPE CODE TESTS RESULT OUT OF RANGE REFERENCE UNITS LAB L501.5200 1.6-2.6 mg/dL Normal MG 2.4 Performed By: #### L500.2500, L501.2300, L501.5200 #### [facility] [address] [place], [address] 12 LEAD ELECTROCARDIOGRAM Observed: 06/24/2017 Status: F Source: JAY 2:12 PM [facility] REPOSITORY [facility] Cardiovascular Services [address] [place] [address] 12 Lead EKG 06/20/17 1318 MR#: [id number] Acct: [id number] Name: ALEJO MCGARRY Rep #: [id number] : 1960 57 From: Sebastien Weinberg MD Attending Dr: Nelson Zimmerman DO Status: ADM IN Ordering Dr: Robert Najera MD Date: 06/20/17 Location: ICU Sex: M C Admitted: 06/20/17 Test Reason : UNRESPONSIVE Blood Pressure : / mmHG Vent. Rate : 093 BPM Atrial Rate : 093 BPM P-R Int : 180 ms QRS Dur : 092 ms QT Int : 320 ms P-R-T Axes : 047 126 -46 degrees QTc Int : 397 ms Sinus rhythm with occasional Premature ventricular complexes Low voltage QRS Septal infarct , age undetermined Abnormal ECG Confirmed by LENARD CABA, SEBASTIEN ([id number]), publication editor SELINA TSANG ([id number]) on 06/24/2017 2:11:59 PM Referred By: NICOLE Confirmed By:SEBASTIEN WEINBERG MD 06/24/17 1412 Date Sebastien Weinberg MD CC: Robert Najera MD; Nelson Zimmerman DO; Tio Parker Signed BEDSIDE GLUCOSE Collected: 06/24/2017 Status: F Source: ANÍBAL 11:45 AM [facility] REPOSITORY TYPE CODE TESTS RESULT OUT OF REFERENCE UNITS RANGE LAB L501.080 70-110 mg/dL High BEDSIDE GLU 113 Result Comment: MANAGEMENT OF PATIENT CARE PER NURSING PROTOCOL Performed By: #### L501.080 #### [facility] Point [facility] [address] [place], [place] [address] BEDSIDE GLUCOSE Collected: 06/24/2017 Status: F Source: ANÍBAL 6:35 AM [facility] REPOSITORY TYPE CODE TESTS RESULT OUT OF REFERENCE UNITS RANGE LAB L501.080 70-110 mg/dL High BEDSIDE GLU 158 Result Comment: MANAGEMENT OF PATIENT CARE PER NURSING PROTOCOL Performed By: #### L501.080 #### [facility] Point of Care [address] [place] [address] CBC W/DIFF, AUTOMATED Collected: 06/24/2017 Status: F Source: ANÍBAL 4:30 AM [facility] REPOSITORY TYPE CODE TESTS RESULT OUT OF RANGE REFERENCE UNITS LAB L100.1000 4.4-11.0 K/mm3 Normal WBC 8.3 LAB L100.1200 4.6-6.2 M/mm3 Normal RBC 4.81 LAB L100.1300 13.0-16.5 g/dl Low HGB 12.3 LAB L100.1400 40-54 % Normal HCT 42.4 LAB L100.1500 80-94 fL Normal MCV 88.1 LAB L100.1600 27.0-32.0 pg Low MCH 25.6 LAB L100.1700 32-36 g/gl Low MCHC 29.0 LAB L100.1810 11.6-14.6 % High RDW CV 16.5 LAB L100.1820 35.1-43.9 fl High RDW SD 53.5 LAB L100.1900 150-450 K/mm3 Normal PLT 195 LAB L100.2000 6.2-12.0 fl Normal MPV 9.8 LAB L100.2100 47-70 % High NEUT% 78.9 LAB L100.2200 19-41 % Low LY% 12.7 LAB L100.2300 0-10 % Normal MONO% 8.1 LAB L100.2400 0-5 % Normal EO% 0.1 LAB L100.2500 0-1 % Normal BASO% 0.0 LAB L100.2550 0.0-0.9 % Normal IM GRAN % 0.200 Result Comment: IG% - Immature Granulocytes (promyelocytes, myelocytes and metamyelocytes) > 1% indicates that a LEFT SHIFT is Present. LAB L100.2620 2.0-7.7 X10 3/uL Normal Absolute Neut 6.6 LAB L100.2720 0.83-4.51 X10 3/ul Normal Absolute Lymph 1.05 Performed By: #### L100.0100 #### [facility] [address] [facility] [place], [place], [address] BASIC METABOLIC Collected: 06/24/2017 Status: F Source: JAY PROFILE (BMP) 4:30 AM [facility] REPOSITORY TYPE CODE TESTS RESULT OUT OF RANGE REFERENCE UNITS LAB L501.0100 74-106 mg/dL High GLU 178 Result Comment: Fasting Glucose result greater than or equal to 126 mg/dL suggests DIABETES MELLITUS per A.D.A. criteria. Please note revised GLUCOSE reference range effective 2017. LAB L501.1000 7-18 mg/dL High BUN 35 LAB L501.1100 0.70-1.30 mg/dL Normal CREAT,SERUM 0.82 Result Comment: The validity of the calculated GFR AND GFRAA in patients over 70 years has not been determined. Clinical correlation is essential. LAB L501.1110 >60 mL/min Normal EST GFR 102 Result Comment: Non- GFR Calc LAB L501.1115 >60 mL/min Normal EST GFR - AA 123 Result Comment: GFR Calc LAB L501.1255 ml/min Normal Estimated CRCL 106.46 LAB L501.1300 10-20 RATIO High BUN/CRE 42.5 LAB L501.2200 8.5-10 mg/dL .1 CA Normal 8.5 LAB L501.5300 136-14 mmol/L 5 NA Normal 142 LAB L501.5600 3.5-5. mmol/L 1 K Normal 3.8 LAB L501.5900 98-107 mmol/L Low CL 93 LAB L501.6100 21.0-3 mmol/L High 2.0 CO2 43.0 LAB L501.6200 5-15 GAP Normal 6 Performed By: #### L500.2500, L501.2300, L501.5200 #### [facility] [address] [place], [address] PHOSPHORUS Collected: 06/24/2017 Status: F Source: ANÍBAL 4:30 AM [facility] REPOSITORY TYPE CODE TESTS RESULT OUT OF RANGE REFERENCE UNITS LAB L501.2300 2.5-4.9 mg/dL Normal PHOS 4.1 Performed By: #### L500.2500, L501.2300, L501.5200 #### [facility] [address] [place], [address] MAGNESIUM Collected: 06/24/2017 Status: F Source: ANÍBAL 4:30 AM [facility] REPOSITORY TYPE CODE TESTS RESULT OUT OF RANGE REFERENCE UNITS LAB L501.5200 1.6-2.6 mg/dL Normal MG 2.3 Performed By: #### L500.2500, L501.2300, L501.5200 #### [facility] [address] [place], [address] BEDSIDE GLUCOSE Collected: 06/23/2017 Status: F Source: ANÍBAL 11:00 PM [facility] REPOSITORY TYPE CODE TESTS RESULT OUT OF REFERENCE UNITS RANGE LAB L501.080 70-110 mg/dL High BEDSIDE GLU 130 Result Comment: MANAGEMENT OF PATIENT CARE PER NURSING PROTOCOL Performed By: #### L501.080 #### [facility] Point of Care [address] [place] [address] BEDSIDE GLUCOSE Collected: 06/23/2017 Status: F Source: ANÍBAL 6:30 PM [facility] REPOSITORY TYPE CODE TESTS RESULT OUT OF REFERENCE UNITS RANGE LAB L501.080 70-110 mg/dL High BEDSIDE GLU 116 Result Comment: MANAGEMENT OF PATIENT CARE PER NURSING PROTOCOL Performed By: #### L501.080 #### [facility] Point of Care [address] [place] [address] BASIC METABOLIC Collected: 06/23/2017 Status: F Source: ANÍBAL PROFILE (BMP) 2:15 PM [facility] REPOSITORY TYPE CODE TESTS RESULT OUT OF RANGE REFERENCE UNITS LAB L501.0100 74-106 mg/dL High GLU 141 Result Comment: Fasting Glucose result greater than or equal to 126 mg/dL suggests DIABETES MELLITUS per A.D.A. criteria. Please note revised GLUCOSE reference range effective 2017. LAB L501.1000 7-18 mg/dL High BUN 33 LAB L501.1100 0.70-1.30 mg/dL Normal CREAT,SERUM 0.83 Result Comment: The validity of the calculated GFR AND GFRAA in patients over 70 years has not been determined. Clinical correlation is essential. LAB L501.1110 >60 mL/min Normal EST GFR 101 Result Comment: Non- GFR Calc LAB L501.1115 >60 mL/min Normal EST GFR - AA 122 Result Comment: GFR Calc LAB L501.1255 ml/min Normal Estimated CRCL 105.18 LAB L501.1300 10-20 RATIO High BUN/CRE 39.7 LAB L501.2200 8.5-10 mg/dL Low .1 CA 8.2 LAB L501.5300 136-14 mmol/L 5 NA Normal 140 LAB L501.5600 3.5-5. mmol/L 1 K Normal 3.8 LAB L501.5900 98-107 mmol/L Low CL 93 LAB L501.6100 21.0-3 mmol/L High 2.0 CO2 42.0 LAB L501.6200 5-15 GAP Normal 5 Performed By: #### L500.2500 #### [facility] [address] [place], [place], [address] BEDSIDE GLUCOSE Collected: 06/23/2017 Status: F Source: ANÍBAL 12:23 PM [facility] REPOSITORY TYPE CODE TESTS RESULT OUT OF REFERENCE UNITS RANGE LAB L501.080 70-110 mg/dL High BEDSIDE GLU 150 Result Comment: MANAGEMENT OF PATIENT CARE PER NURSING PROTOCOL Performed By: #### L501.080 #### [facility] Point of Care [address] [place] [address] BEDSIDE GLUCOSE Collected: 06/23/2017 Status: F Source: ANÍBAL 5:18 AM [facility] REPOSITORY TYPE CODE TESTS RESULT OUT OF REFERENCE UNITS RANGE LAB L501.080 70-110 mg/dL High BEDSIDE GLU 169 Result Comment: MANAGEMENT OF PATIENT CARE PER NURSING PROTOCOL Performed By: #### L501.080 #### [facility] Point of Care [address] [place] [address] CBC W/DIFF, AUTOMATED Collected: 06/23/2017 Status: F Source: ANÍBAL 4:05 AM [facility] REPOSITORY TYPE CODE TESTS RESULT OUT OF RANGE REFERENCE UNITS LAB L100.1000 4.4-11.0 K/mm3 Normal WBC 7.4 LAB L100.1200 4.6-6.2 M/mm3 Low RBC 4.33 LAB L100.1300 13.0-16.5 g/dl Low HGB 11.5 LAB L100.1400 40-54 % Low HCT 38.4 LAB L100.1500 80-94 fL Normal MCV 88.7 LAB L100.1600 27.0-32.0 pg Low MCH 26.6 LAB L100.1700 32-36 g/gl Low MCHC 29.9 LAB L100.1810 11.6-14.6 % High RDW CV 16.9 LAB L100.1820 35.1-43.9 fl High RDW SD 54.4 LAB L100.1900 150-450 K/mm3 Normal PLT 210 LAB L100.2000 6.2-12.0 fl Normal MPV 9.2 LAB L100.2100 47-70 % High NEUT% 78.3 LAB L100.2200 19-41 % Low LY% 11.9 LAB L100.2300 0-10 % Normal MONO% 9.3 LAB L100.2400 0-5 % Normal EO% 0.1 LAB L100.2500 0-1 % Normal BASO% 0.1 LAB L100.2550 0.0-0.9 % Normal IM GRAN % 0.300 Result Comment: IG% - Immature Granulocytes (promyelocytes, myelocytes and metamyelocytes) > 1% indicates that a LEFT SHIFT is Present. LAB L100.2620 2.0-7.7 X10 3/uL Normal Absolute Neut 5.8 LAB L100.2720 0.83-4.51 X10 3/ul Normal Absolute Lymph 0.88 Performed By: #### L100.0100 #### [facility] [address] [place], [address] BASIC METABOLIC Collected: 06/23/2017 Status: F Source: JAY PROFILE ([facility]) 4:05 AM [facility] REPOSITORY TYPE CODE TESTS RESULT OUT OF RANGE REFERENCE UNITS LAB L501.0100 74-106 mg/dL High GLU 174 Result Comment: Fasting Glucose result greater than or equal to 126 mg/dL suggests DIABETES MELLITUS per A.D.A. criteria. Please note revised GLUCOSE reference range effective 2017. LAB L501.1000 7-18 mg/dL High BUN 33 LAB L501.1100 0.70-1.30 mg/dL Normal CREAT,SERUM 0.79 Result Comment: The validity of the calculated GFR AND GFRAA in patients over 70 years has not been determined. Clinical correlation is essential. LAB L501.1110 >60 mL/min Normal EST GFR 106 Result Comment: Non- GFR Calc LAB L501.1115 >60 mL/min Normal EST GFR - AA 128 Result Comment: GFR Calc LAB L501.1255 ml/min Normal Estimated CRCL 110.51 LAB L501.1300 10-20 RATIO High BUN/CRE 41.6 LAB L501.2200 8.5-10 mg/dL Low .1 CA 8.2 LAB L501.5300 136-14 mmol/L 5 NA Normal 141 LAB L501.5600 3.5-5. mmol/L 1 K Normal 3.8 LAB L501.5900 98-107 mmol/L Low CL 92 LAB L501.6100 21.0-3 mmol/L High 2.0 CO2 40.0 LAB L501.6200 5-15 GAP Normal 9 Performed By: #### L500.2500, L501.2300, L501.5200 #### [facility] [address] [place], [address] PHOSPHORUS Collected: 06/23/2017 Status: F Source: ANÍBAL 4:05 AM [facility] REPOSITORY TYPE CODE TESTS RESULT OUT OF RANGE REFERENCE UNITS LAB L501.2300 2.5-4.9 mg/dL Normal PHOS 4.6 Performed By: #### L500.2500, L501.2300, L501.5200 #### [facility] [address] [place], [address] MAGNESIUM Collected: 06/23/2017 Status: F Source: JAY 4:05 AM [facility] REPOSITORY TYPE CODE TESTS RESULT OUT OF RANGE REFERENCE UNITS LAB L501.5200 1.6-2.6 mg/dL Normal MG 2.3 Performed By: #### L500.2500, L501.2300, L501.5200 #### [facility] [address] [place], [address] BLOOD GASES BY CPS Collected: 06/23/2017 Status: F Source: ANÍBAL 1:00 AM [facility] REPOSITORY TYPE CODE TESTS RESULT OUT OF RANGE REFERENCE UNITS LAB L9000.9990 Normal BLD GAS TYPE ART LAB L9001.1000 Normal SITE R Radial LAB L9001.1048 Normal Mode A-C LAB L9001.1050 O2 Normal Delivery Dev Vent LAB L9001.1060 MV Normal 7.00 LAB L9001.1065 Vt Normal 450 LAB L9001.1070 RR Normal 16 LAB L9001.1074 Normal FI02 70 LAB L9001.1076 Normal PEEP 18 LAB L9001.1104 Normal Results To ICU LAB L9001.1105 Normal Time Given 53 LAB L9001.1110 7.35-7.45 High pH - I-STAT 7.46 LAB L9001.1210 35-45 mmHg High pCO2 - ISTAT 62.9 LAB L9001.1310 75-100 mmHG Low PO2 I-STAT 58 LAB L9001.2300 22-26 mmol/L High HCO3 ISTAT 44.7 LAB L9001.2400 -2 to +2 mmol/L High BE ISTAT 21 LAB L9001.2415 mmol/L Normal TOTAL CO2 47 ISTAT LAB L9001.2425 95-99 % Low SO2 ISTAT 90 Performed By: #### L9000.0800 #### [facility] Point of Care [address] [place] [address] BEDSIDE GLUCOSE Collected: 06/22/2017 Status: F Source: JAY 11:49 PM [facility] REPOSITORY TYPE CODE TESTS RESULT OUT OF REFERENCE UNITS RANGE LAB L501.080 70-110 mg/dL High BEDSIDE GLU 158 Result Comment: MANAGEMENT OF PATIENT CARE PER NURSING PROTOCOL Performed By: #### L501.080 #### [facility] Point of Care [address] [place] [address] BEDSIDE GLUCOSE Collected: 06/22/2017 Status: F Source: ANÍBAL 5:58 PM [facility] REPOSITORY TYPE CODE TESTS RESULT OUT OF REFERENCE UNITS RANGE LAB L501.080 70-110 mg/dL High BEDSIDE GLU 152 Result Comment: MANAGEMENT OF PATIENT CARE PER NURSING PROTOCOL Performed By: #### L501.080 #### [facility] Point of Care [address] [place] [address] BASIC METABOLIC Collected: 06/22/2017 Status: F Source: ANÍBAL PROFILE (BMP) 2:15 PM [facility] REPOSITORY TYPE CODE TESTS RESULT OUT OF RANGE REFERENCE UNITS LAB L501.0100 74-106 mg/dL High GLU 157 Result Comment: Fasting Glucose result greater than or equal to 126 mg/dL suggests DIABETES MELLITUS per A.D.A. criteria. Please note revised GLUCOSE reference range effective 2017. LAB L501.1000 7-18 mg/dL High BUN 32 LAB L501.1100 0.70-1.30 mg/dL Normal CREAT,SERUM 0.79 Result Comment: The validity of the calculated GFR AND GFRAA in patients over 70 years has not been determined. Clinical correlation is essential. LAB L501.1110 >60 mL/min Normal EST GFR 107 Result Comment: Non- GFR Calc LAB L501.1115 >60 mL/min Normal EST GFR - AA 129 Result Comment: GFR Calc LAB L501.1255 ml/min Normal Estimated CRCL 110.51 LAB L501.1300 10-20 RATIO High BUN/CRE 40.5 LAB L501.2200 8.5-10 mg/dL Low .1 CA 8.4 LAB L501.5300 136-14 mmol/L 5 NA Normal 137 LAB L501.5600 3.5-5. mmol/L 1 K Normal 3.7 LAB L501.5900 98-107 mmol/L Low CL 94 LAB L501.6100 21.0-3 mmol/L High 2.0 CO2 38.0 LAB L501.6200 5-15 GAP Normal 5 Performed By: #### L500.2500 #### [facility] [address] [place], [address] BEDSIDE GLUCOSE Collected: 06/22/2017 Status: F Source: JAY 11:23 AM [facility] REPOSITORY TYPE CODE TESTS RESULT OUT OF REFERENCE UNITS RANGE LAB L501.080 70-110 mg/dL High BEDSIDE GLU 228 Result Comment: MANAGEMENT OF PATIENT CARE PER NURSING PROTOCOL Performed By: #### L501.080 #### [facility] Point of Care [address] [place] [address] CONSULTATION Observed: 06/22/2017 Status: F Source: JAY 9:05 AM [facility] REPOSITORY [facility] Medical Records Department [facility] [place] [address] Consultation 06/22/17 0849 MR#: [id number] Acct: [id number] Name: ALEJO MCGARRY Chadwick Rep #: [id number] : 1960 57 From: Robert Li MD PCP: Tio Parker Status: ADM IN Y Location: ICU ICU04-1 Problem List (1) Heart failure with reduced ejection fraction Status: Acute Qualifiers: Heart failure chronicity: acute Qualified Code(s): I50.21 - Acute systolic (congestive) heart failure (2) Ischemic cardiomyopathy Status: Chronic (3) Chronic systolic congestive heart failure Status: Chronic (4) Presence of stent in coronary artery Status: Chronic Comment: PCI/stent LAD w/ 4.0 x 32 mm Promus 2012; PCI/GISSEL to Prox LAD w/ 4.0 x 20 mm Promus 02/25/16 for instent restenosis (5) Atherosclerotic heart disease of [place] coronary artery without angina pectoris Status: Chronic Comment: PCI/stent LAD w/ 4.0 x 32 mm Promus 2012; PCI/GISSEL to Prox LAD w/ 4.0 x 20 mm Promus 02/25/16 for instent restenosis Reason for Consult Date of Consultation: 06/22/17 Reason for Consultation: Ischemic cardiomyopathy, CHF, acute respiratory distress, hypertension, hypercholesterolemia, coronary artery disease History of Present Illness: Patient is a very pleasant 57-year-old morbidly obese diabetic gentleman with a history of hypertension, hypercholesterolemia, coronary disease s/p stent to his proximal LAD several years ago in 2012 by myself. Patient had a repeat stress test in February 2014 which demonstrated old anteroseptal wall AR and possible adelita-infarct ischemia. He underwent repeat catheterization at that time which demonstrated widely patent stent with mild to moderate in-stent restenosis, no other lesions and very small right coronary artery which was chronically occluded with right to right collaterals. Patient had not following up with me for some time until 12/02/16. At that time he was doing quite well. He was taking and tolerating his medicines well. Patient was previously admitted to [facility] ER on 02/21/16. Patient reported nonexertional unstable anginal symptoms described as a 6 out of 10 in nature. This occurred while he was watching TV. His EKG in the ER demonstrated normal sinus rhythm with old anterior wall microinfarction, no acute changes noted. His troponin was initially negative and 1 up to 0.69 and a peak of 1.05. He had remained chest pain-free. He continues of cigarettes per day started smoking at age 10 consistent with at least a 58-68-vega-year smoking history. There is some question as to his medical compliance. Given his history he underwent repeat catheterization on 02/23/16 which demonstrated significant in-stent restenosis and required a repeat stent. He received a 4.0X 20 Promus synergy stent without complication. He underwent a repeat non-walking nuclear stress test on 04/21/16 to evaluate his circumflex which demonstrated ectasia in the proximal portion and some possible minor plaque ulceration that was nonflow limiting, which was negative for lateral ischemia suggesting an EF around 46%. Previous anterior infarct was noted. Ejection fraction was 40 45 percent. Patient is currently intubated, sedated, on propofol and fentanyl drips. He is unresponsive. As best I can tell the patient has had dietary indiscretion and a CHF exacerbation with acute respiratory distress requiring urgent intubation. The patient appears to have significant anasarca, and was in fact found with a funyon bag of chips nearby his person. He was found to be hypoxic on 100% nonrebreather, chest x-ray suggested either CHF exacerbation versus pneumonia. He has been given IV diuretics in the form of Lasix 40 mg IV every 8 hours and is diuresed -2.5 L but is slowing down. EKG on admission showed normal sinus rhythm with poor R-wave progression across the cardia consistent with previous anterior wall myocardial infarction, and some nonspecific ST and T-wave changes. [] Past Medical History Allergies/Adverse Reactions: Allergies adhesive tape Adverse Reaction (Verified 06/13/17 14:25) Rash Home Medications: Ambulatory Orders Medication Instructions Recorded Mometasone/Formoterol [Dulera 200 1 puff IH BID 07/11/14 Past Medical History (Chronic Problems): Chronic Problems (Last Reviewed 06/13/17 @ 14:25 by Binta Isaac) Ischemic cardiomyopathy (Chronic) Chronic systolic congestive heart failure (Chronic) Presence of stent in coronary artery (Chronic 02/25/16) PCI/stent LAD w/ 4.0 x 32 mm Promus 2012; PCI/GISSEL to Prox LAD w/ 4.0 x 20 mm Promus 02/25/16 for instent restenosis Atherosclerotic heart disease of [place] coronary artery without angina pectoris (Chronic) PCI/stent LAD w/ 4.0 x 32 mm Promus 2012; PCI/GISSEL to Prox LAD w/ 4.0 x 20 mm Promus 02/25/16 for instent restenosis Asthma-COPD overlap syndrome (Chronic) FEV1 46% (01/11/2017) DM2 (diabetes mellitus, type 2) (Chronic) NSTEMI (non-ST elevated myocardial infarction) (Chronic) Venous stasis of lower extremity (Chronic) Ischemic cardiomyopathy (Chronic) EF of 35% on Cath in February of 2014 Surgical History: no surgical history Psychiatric History: No pertinent psych hx - *Family History Maternal Family History: Family History (Last Reviewed 06/13/17 @ 14:25 by Binta Isaac) Mother Diabetes Heart disease History Items: No pertinent history, - - Unable to obtain as the patient is intubated and sedated Lives: Alone Smoking Status: Current every day smoker Tobacco Use: - - Resume cigarettes but unable to obtain as the patient is sedated Review of Systems - Review of Systems General: Denies: Fever, Night Sweats, Fatigue Cardiovascular: Reports: Shortness of Breath, Shortness of Breath at Rest. Denies: Chest Discomfort, Orthopnea, PND, Peripheral Edema, Palpitations, Lightheadedness, Dizziness, Near Syncope, Syncope Respiratory: Denies: Cough, Sputum Production, Hemoptysis Gastrointestinal: Denies: Hematemesis, Hematochezia, Melena Genitourinary: Denies: Dysuria, Hematuria Skin: Denies: Rash Subjectve: Patient sedated, intubated, unresponsive. No acute distress. Heme and apically stable. No other family members around to corroborate history. Patient has significant anasarca in his face, arms, and legs. Objective: Vital Signs Temp Pulse Resp BP Pulse Ox 97.3 F L 60 16 101/61 91 06/22/17 07:00 06/22/17 08:00 06/22/17 08:00 06/22/17 08:00 06/22/17 08:00 Oxygen Delivery Method Mechanical Ventilator Weight: 364 lb 13.84 oz Body Mass Index (BMI) 50.1 Intake and Output for Last 24 Hours General: Awake, Alert, Oriented x 3 HEENT: PERRL, EOMI, Sclera Non Icteric Neck: Supple, Good ROM, No Lymph Node Enlargement Lungs: Clear to auscultation Cardiovascular: Regular Rhythm, Normal S1, Normal S2, No Murmurs, No Rubs, No Gallops Vascular: No Carotid Bruits, Normal Femoral Pulses, Normal Radial Pulses, Normal Dorsalis Pedal Pulse, Normal Posterior Tibial Pulses Abdomen: Bowel Sounds Present, Soft, Non Tender, No HSM, No Organomegaly Extremities: No Cyanosis, No Clubbing, No edema Neurological: No Focal Motor or Sensory Deficit 06/21/17 14:10: Sodium 138, Potassium 3.9, Chloride 95 L, Carbon Dioxide 37.0 H, Anion Gap 6, BUN 33 H, Creatinine 0.81, Est GFR (MDRD) Af Amer 125, Est GFR (MDRD) Non-Af 103, BUN/Creatinine Ratio 40.5 H, Glucose 143 H, Calcium 8.3 L 06/22/17 04:50: WBC 6.9, RBC 4.31 L, Hgb 11.4 L, Hct 38.0 L, MCV 88.2, MCH 26.5 L, MCHC 30.0 L, RDW 17.0 H, RDW Differential 53.7 H, Plt Count 204, MPV 10.3, Immature Gran % (Auto) 0.400, Neut % (Auto) 77.6 H, Lymph % (Auto) 13.4 L, [place] % (Auto) 8.6, Eos % (Auto) 0.0, Baso % (Auto) 0.0, Absolute Neuts (auto) 5.3, Total Counted Not Reportable 06/22/17 04:50: Sodium 138, Potassium 3.9, Chloride 93 L, Carbon Dioxide 36.0 H, Anion Gap 9, BUN 34 H, Creatinine 0.83, Est GFR (MDRD) Af Amer 121, Est GFR (MDRD) Non-Af 100, BUN/Creatinine Ratio 40.9 H, Glucose 171 H, Calcium 8.3 L Rhythm: Normal sinus rhythm with PVCs. EKG: As above ECHO: Echo dated 06/21/17 showed an EF around 50%, unable to quantitate RVSP. Stress Test: Cardiac Cath: PCI: CT Surgery: Holter monitor: EPS: PPM: CXR: Chest CT Scan: Assessment/Plan 1. Congestive heart failure: The patient's chest x-ray suggest pulmonary vascular redistribution, but there appears to be a density in the right upper lobe possibly due to aspiration or pneumonia. Patient also has evidence of anasarca with significant edema in his legs, face and hands. He was found with salty foods nearby, suggesting he has had dietary indiscretion with increased salt and water intake. Patient has known coronary artery disease, and ischemic cardiomyopathy, and is undetermined whether he was compliant with his medicines as there are no family representatives to clarify his medical condition at home. Given his presentation, it is most likely has a CHF exacerbations possibly superimposed on a pneumonia. Recommend switching him from IV Lasix periodically to a Bumex drip at 0.5 mg/h in an attempt to gradually diurese him rather than diurese him in spurts. Would recommend a net -2.5 L fluid removal on a daily basis. Recommend replacing his potassium magnesium as he diuresis to avoid ventricular arrhythmias. At home he was on Lasix 40 mg p.o. twice daily assuming he was taking it. His echocardiogram shows his EF is approximately 50% which is consistent with his previous ejection fraction is based on recent stress testing. He has known coronary disease of his LAD requiring redo stenting for in-stent restenosis, and known ectatic circumflex disease which had no significant ischemia by stress testing in the recent past. His troponins are negative. At this point we will hold off on catheterization unless and until the patient is having difficulty weaning from the ventilator. Would recommend continuing baby aspirin and Plavix going forward. In addition recommend continuing Cozaar 50 mg p.o. daily and cutting his Coreg in half to 3.125 mg p.o. twice daily until he is through his CHF exacerbation, at which time we will increase it back to 6.25 mg twice daily assuming he is tolerating it. Would recommend maximum concentration of all medications and a 1500 cc fluid restriction. 2. Right upper lobe infiltrate: Patient appears to have a right upper lobe infiltrate by chest x-ray by my review and confirmed by radiology. Continue antibiotic therapy per protocol. 3. Hyperlipidemia: Given his coronary history and diabetes history requires LDL reduction of less than 70. Continue Lipitor. 4. Thank you very much for the opportunity to participate in the cardiac care of your patient. Consultation time took place between 845 at 9:15 AM. Code Visit Inpatient E AND M: [id number] Init Hosp L3 06/22/17 0905 <Electronically signed by Robert Li MD> Date Robert Li MD Cosigner Signature (if applicable): Date CC: Jeffrey Campos MD; Robert Li MD; Hardy Montemayor MD; Tio Parker Signed CONSULTATION Observed: 06/22/2017 Status: F Source: JAY 5:31 AM [facility] REPOSITORY [facility] Medical Records Department [address] [place] [address] Consultation 06/21/17611 MR#: [id number] Acct: [id number] Name: ALEJO MCGARRY Rep #: [id number] : 1960 57 From: Jeffrey Campos MD PCP: Tio Parker Status: ADM IN Y Location: ICU ICU04-1 Problem List (1) Acute respiratory failure with hypoxia and hypercapnia Status: Acute (2) Metabolic encephalopathy Status: Acute (3) Heart failure with reduced ejection fraction Status: Acute Qualifiers: Heart failure chronicity: acute Qualified Code(s): I50.21 - Acute systolic (congestive) heart failure (4) Ischemic cardiomyopathy Status: Chronic (5) Presence of stent in coronary artery Status: Chronic Comment: PCI/stent LAD w/ 4.0 x 32 mm Promus 2012; PCI/GISSEL to Prox LAD w/ 4.0 x 20 mm Promus 02/25/16 for instent restenosis (6) Atherosclerotic heart disease of [place] coronary artery without angina pectoris Status: Chronic Comment: PCI/stent LAD w/ 4.0 x 32 mm Promus 2012; PCI/GISSEL to Prox LAD w/ 4.0 x 20 mm Promus 02/25/16 for instent restenosis (7) Asthma-COPD overlap syndrome Status: Chronic Comment: FEV1 46% (01/11/2017) (8) DM2 (diabetes mellitus, type 2) Status: Chronic (9) NSTEMI (non-ST elevated myocardial infarction) Status: Chronic (10) Venous stasis of lower extremity Status: Chronic Reason for Consult Date of Consultation: 06/21/17 Reason for Consultation: Acute on chronic respiratory failure History of Present Illness: The patient is a 57 year old M, with past medical history listed below and well-known to me from the outpatient office, who [facility]2017 after being unresponsive. Patient was noted to be saturating in the 80s on 100% nonrebreather. Immediately upon presentation to the emergency room, patient was intubated and chest x-ray was concerning for CHF versus pneumonia. Patient was placed on Solu-Medrol, aerosols and healthcare associated antibiotics. Details were not available as patient does not have any family or next of kin that I am aware of. Patient was reportedly found with Funyons and cigarettes. Patient was admitted to the intensive care unit and blood pressures have been stable. However, patient has been notably hypoxic and PEEP has been increased steadily overnight. Patient did not receive a spontaneous breathing trial this morning secondary to high oxygen demands. Patient is on diuretic therapy. Patient becomes agitated when sedation is decreased. As an outpatient, patient does have an asthma COPD overlap syndrome with an FEV1 of 46% and a history of systolic congestive heart failure with an EF of approximately 35% in the past. Patient does have a history of noncompliance with smoking cessation, salt restriction and medications. Patient has stated that he would want to be a full code as an outpatient and, to my knowledge, has no next of kin or surrogate decision makers. Past Medical History Past Medical History (Chronic Problems): Chronic Problems (Last Reviewed 06/13/17 @ 14:25 by Binta Isaac) Ischemic cardiomyopathy (Chronic) Chronic systolic congestive heart failure (Chronic) Presence of stent in coronary artery (Chronic 02/25/16) PCI/stent LAD w/ 4.0 x 32 mm Promus 2012; PCI/GISSEL to Prox LAD w/ 4.0 x 20 mm Promus 02/25/16 for instent restenosis Atherosclerotic heart disease of [place] coronary artery without angina pectoris (Chronic) PCI/stent LAD w/ 4.0 x 32 mm Promus 2012; PCI/GISSEL to Prox LAD w/ 4.0 x 20 mm Promus 02/25/16 for instent restenosis Asthma-COPD overlap syndrome (Chronic) FEV1 46% (01/11/2017) DM2 (diabetes mellitus, type 2) (Chronic) NSTEMI (non-ST elevated myocardial infarction) (Chronic) Venous stasis of lower extremity (Chronic) Ischemic cardiomyopathy (Chronic) EF of 35% on Cath in February of 2014 Allergies adhesive tape Adverse Reaction (Verified 06/13/17 14:25) Rash Home Medications: Ambulatory Orders Medication Instructions Recorded Mometasone/Formoterol [Dulera 200 1 puff IH BID 07/11/14 Surgical History: no surgical history Psychiatric History: No pertinent psych hx Lives: Alone Smoking Status: Current every day smoker Tobacco Use: - - Resume cigarettes but unable to obtain as the patient is sedated - *Family History Maternal History Items: No pertinent history, - - Unable to obtain as the patient is intubated and sedated Review of Systems Unable to obtain accurate/complete ROS d/t: See HPI Patient Problems: Active and Suspected Problems (Last Reviewed 06/13/17 @ 14:25 by Binta Isaac) Acute respiratory failure with hypoxia and hypercapnia (Acute) Pneumococcal pneumonia (Acute) Metabolic encephalopathy (Acute) Heart failure with reduced ejection fraction (Acute) Objective: Chest x-ray was personally reviewed. This shows support devices in appropriate positions with atelectasis versus increased congestion and possible pleural effusions. CT of the head was unremarkable. - Physical Exam General: - - RASS -3. Good vent synchrony noted. Morbidly obese. HEENT: Atraumatic, PERRLA, EOMI, - - Periorbital edema noted. Slight injection of sclera noted. Oral: Moist Mucosa, No Gingival or Mucosal Lesions/ Ulcerations, - Neck: Supple, No Nodes, Trachea Midline, JVD, Right Lungs: No rhonchi, No wheeze, Diminished, Rales, - - No dullness to percussion. Symmetric expansion. Cardiovascular: Regular rate, Regular Rhythm, Normal S1, Normal S2, No murmurs, No rub noted, No Gallop Abdomen: Bowel Sounds Present, Soft, Non Tender, Non-Distended, Obese Extremities: No cyanosis, Clubbing, Edema - 3+ lower extremity, - - Venous stasis changes Skin: - - Fungus noted in skin folds. No breakdown appreciated. Venous stasis changes noted of the lower extremities. Musculoskeletal: No Tenderness to Palpation of Joints or Extremities Lymphatic: No Cervical, Supraclavicular, or Inguinal Adenopathy Neurological: Cranial nerves II-XII grossly intact, Neuro grossly intact, - - Positive gag and cough reflexes. Psych/Mental Status: Flat Affect, Restless Vital Signs Temp Pulse Resp BP Pulse Ox 36.5 C L 64 16 98/61 93 06/21/17 04:00 06/21/17 06:00 06/21/17 06:00 06/21/17 06:00 06/21/17 06:00 Oxygen Delivery Method Mechanical Ventilator Weight: 165.6 kg Body Mass Index (BMI) 50.1 Intake and Output for Last 24 Hours Intake Total 1248.3 / 1248.3 Output Total 1900 / 1900 Balance -651.7 / -651.7 Microbiology Past 72 Hours 06/20/17 18:30 Influenza Types A,B Direct FA (GAYLE) - Final Laboratory Tests Past 24 Hrs WBC RBC Hgb Hct MCV MCH MCHC RDW RDW Differential Plt Count MPV WBC 6.9 RBC 4.47 L Hgb 11.5 L Hct 39.6 L MCV 88.6 MCH 25.7 L MCHC 29.0 L RDW 17.1 H POC Glucose POC Glucose 160 H Clinical Impression(s) from Imaging Studies Brain CT 06/20/17 13:13 IMPRESSION: Normal unenhanced CT scan of the brain. Electronically Signed: Akhil Izquierdo MD at 15:15 EDT Tel [phone], Service support , Chest X-Ray 06/20/17 13:15 IMPRESSION: The tip of the endotracheal tube is at 3.5 cm proximal to the byron. Cardiomegaly. Findings suggestive of vascular congestion with infiltrate and/or atelectasis is worse on the right side with thickening of the right minor fissure. Electronically Signed: Akhil Izquierdo MD at 14:01 EDT Tel [phone], Service support , Assessment/Plan Active and Suspected Problems (Last Reviewed 06/13/17 @ 14:25 by Binta Isaac) Acute respiratory failure with hypoxia and hypercapnia (Acute) Pneumococcal pneumonia (Acute) Metabolic encephalopathy (Acute) Heart failure with reduced ejection fraction (Acute) RECOMMENDATIONS: 1. Increase PEEP as necessary 2. Attempt to wean oxygen to less than 60% 3. Aggressive diuresis 4. Agree with steroids, bronchodilators and empiric antibiotics 5. Okay to initiate tube feeds 6. Obtain echocardiogram 7. Repeat BMP this afternoon 8. Nystatin powder to skin folds IMPRESSIONS: 1. Acute on chronic combined respiratory failure Clinical suspicion for acute on chronic systolic congestive heart failure as an etiology secondary to noncompliance with low-salt diet. Patient is also supposed to be on BiPAP therapy, but is not compliant. Low clinical suspicion for COPD/asthma exacerbation, but history is not available at this time. Agree with treating empirically with antibiotics, steroids and bronchodilators for now. Aggressive diuresis. Increase PEEP as necessary to attempt to decrease FiO2 to less than 60%. Cannot exclude the need for a Lasix drip. 2. Acute on chronic systolic congestive heart failure/coronary artery disease Patient's last known ejection fraction is 30-35%. Unclear if patient has been compliant with home medications. Blood pressure appears to be doing well at this time. Will repeat echocardiogram. Patient would benefit from BiPAP therapy following extubation if agreeable. Patient has been continued on baseline medications. May need to hold losartan if renal function decreases with diuresis. 3. Metabolic encephalopathy secondary to #1 Patient with significant CO2 retention on presentation. ABG this morning shows adequate oxygenation and ventilation. Patient is on fentanyl and propofol for vent synchrony. Will continue to monitor. 4. Diabetes mellitus type 2 Likely initiate tube feeds later this morning. Anticipate prolonged intubation secondary to need for diuretic therapy and offloading of the heart. Continue to monitor blood sugars. 5. Morbid obesity/history of noncompliance/hypertension/seasonal allergies Complicates care, management, recovery and prognosis. On baseline medications. TIME: 37 minutes critical care time spent addressing patient's acute on chronic respiratory failure, congestive heart failure, metabolic encephalopathy, review of all data and collaboration with care team. (5:15 AM to 6:30 AM) Code Visit 9xxxx: [id number] Critical care first hour 06/22/17 0531 <Electronically signed by Jeffrey Campos MD> Date Jeffrey Campos MD Cosigner Signature (if applicable): Date CC: Jeffrey Campos MD; Robert Li MD; Hardy Montemayor MD; Tio Parker Signed BEDSIDE GLUCOSE Collected: 06/22/2017 Status: F Source: JAY 5:18 AM [facility] REPOSITORY TYPE CODE TESTS RESULT OUT OF REFERENCE UNITS RANGE LAB L501.080 70-110 mg/dL High BEDSIDE GLU 173 Result Comment: MANAGEMENT OF PATIENT CARE PER NURSING PROTOCOL Performed By: #### L501.080 #### [facility] Point of Care [address] [place] [address] BASIC METABOLIC Collected: 06/22/2017 Status: F Source: ANÍBAL PROFILE ([facility]) 4:50 AM [facility] REPOSITORY TYPE CODE TESTS RESULT OUT OF RANGE REFERENCE UNITS LAB L501.0100 74-106 mg/dL High GLU 171 Result Comment: Fasting Glucose result greater than or equal to 126 mg/dL suggests DIABETES MELLITUS per A.D.A. criteria. Please note revised GLUCOSE reference range effective 2017. LAB L501.1000 7-18 mg/dL High BUN 34 LAB L501.1100 0.70-1.30 mg/dL Normal CREAT,SERUM 0.83 Result Comment: The validity of the calculated GFR AND GFRAA in patients over 70 years has not been determined. Clinical correlation is essential. LAB L501.1110 >60 mL/min Normal EST GFR 100 Result Comment: Non- GFR Calc LAB L501.1115 >60 mL/min Normal EST GFR - AA 121 Result Comment: GFR Calc LAB L501.1255 ml/min Normal Estimated CRCL 105.18 LAB L501.1300 10-20 RATIO High BUN/CRE 40.9 LAB L501.2200 8.5-10 mg/dL Low .1 CA 8.3 LAB L501.5300 136-14 mmol/L 5 NA Normal 138 LAB L501.5600 3.5-5. mmol/L 1 K Normal 3.9 LAB L501.5900 98-107 mmol/L Low CL 93 LAB L501.6100 21.0-3 mmol/L High 2.0 CO2 36.0 LAB L501.6200 5-15 GAP Normal 9 Performed By: #### L500.2500 #### [facility] [address] [place], [address] CBC W/DIFF, AUTOMATED Collected: 06/22/2017 Status: F Source: ANÍBAL 4:50 AM [facility] REPOSITORY TYPE CODE TESTS RESULT OUT OF RANGE REFERENCE UNITS LAB L100.1000 4.4-11.0 K/mm3 Normal WBC 6.9 LAB L100.1200 4.6-6.2 M/mm3 Low RBC 4.31 LAB L100.1300 13.0-16.5 g/dl Low HGB 11.4 LAB L100.1400 40-54 % Low HCT 38.0 LAB L100.1500 80-94 fL Normal MCV 88.2 LAB L100.1600 27.0-32.0 pg Low MCH 26.5 LAB L100.1700 32-36 g/gl Low MCHC 30.0 LAB L100.1810 11.6-14.6 % High RDW CV 17.0 LAB L100.1820 35.1-43.9 fl High RDW SD 53.7 LAB L100.1900 150-450 K/mm3 Normal PLT 204 LAB L100.2000 6.2-12.0 fl Normal MPV 10.3 LAB L100.2100 47-70 % High NEUT% 77.6 LAB L100.2200 19-41 % Low LY% 13.4 LAB L100.2300 0-10 % Normal MONO% 8.6 LAB L100.2400 0-5 % Normal EO% 0.0 LAB L100.2500 0-1 % Normal BASO% 0.0 LAB L100.2550 0.0-0.9 % Normal IM GRAN % 0.400 Result Comment: IG% - Immature Granulocytes (promyelocytes, myelocytes and metamyelocytes) > 1% indicates that a LEFT SHIFT is Present. LAB L100.2620 2.0-7.7 X10 3/uL Normal Absolute Neut 5.3 LAB L100.2720 0.83-4.51 X10 3/ul Normal Absolute Lymph 0.92 Performed By: #### L100.0100 #### [facility] [address] [place] [address], [id number] BEDSIDE GLUCOSE Collected: 06/21/2017 Status: F Source: ANÍBAL 11:30 PM [facility] REPOSITORY TYPE CODE TESTS RESULT OUT OF REFERENCE UNITS RANGE LAB L501.080 70-110 mg/dL High BEDSIDE GLU 149 Result Comment: MANAGEMENT OF PATIENT CARE PER NURSING PROTOCOL Performed By: #### L501.080 #### [facility] Point of Care [address] [place], [place] [address] BEDSIDE GLUCOSE Collected: 06/21/2017 Status: F Source: ANÍBAL 6:06 PM [facility] REPOSITORY TYPE CODE TESTS RESULT OUT OF REFERENCE UNITS RANGE LAB L501.080 70-110 mg/dL High BEDSIDE GLU 140 Result Comment: MANAGEMENT OF PATIENT CARE PER NURSING PROTOCOL Performed By: #### L501.080 #### [facility] Point of Care [address] [place], [place] [address] BASIC METABOLIC Collected: 06/21/2017 Status: F Source: ANÍBAL PROFILE (B[facility]) 2:10 PM [facility] REPOSITORY TYPE CODE TESTS RESULT OUT OF RANGE REFERENCE UNITS LAB L501.0100 74-106 mg/dL High GLU 143 Result Comment: Fasting Glucose result greater than or equal to 126 mg/dL suggests DIABETES MELLITUS per A.D.A. criteria. Please note revised GLUCOSE reference range effective 2017. LAB L501.1000 7-18 mg/dL High BUN 33 LAB L501.1100 0.70-1.30 mg/dL Normal CREAT,SERUM 0.81 Result Comment: The validity of the calculated GFR AND GFRAA in patients over 70 years has not been determined. Clinical correlation is essential. LAB L501.1110 >60 mL/min Normal EST GFR 103 Result Comment: Non- GFR Calc LAB L501.1115 >60 mL/min Normal EST GFR - AA 125 Result Comment: GFR Calc LAB L501.1255 ml/min Normal Estimated CRCL 107.78 LAB L501.1300 10-20 RATIO High BUN/CRE 40.5 LAB L501.2200 8.5-10 mg/dL Low .1 CA 8.3 LAB L501.5300 136-14 mmol/L 5 NA Normal 138 LAB L501.5600 3.5-5. mmol/L 1 K Normal 3.9 LAB L501.5900 98-107 mmol/L Low CL 95 LAB L501.6100 21.0-3 mmol/L High 2.0 CO2 37.0 LAB L501.6200 5-15 GAP Normal 6 Performed By: #### L500.2500 #### [facility] [address] [place], [place], [address] BEDSIDE GLUCOSE Collected: 06/21/2017 Status: F Source: ANÍBAL 11:37 AM [facility] REPOSITORY TYPE CODE TESTS RESULT OUT OF REFERENCE UNITS RANGE LAB L501.080 70-110 mg/dL High BEDSIDE GLU 177 Result Comment: MANAGEMENT OF PATIENT CARE PER NURSING PROTOCOL Performed By: #### L501.080 #### [facility] Point of Care [address] [place] [address] ECHO, COMPLETE W/ Observed: 06/21/2017 Status: F Source: JAY CONTRAST 10:48 AM [facility] REPOSITORY [facility] Cardiovascular Services [address] [place] [address] Echo Complete W/ Contrast 06/21/17 0850 MR#: [id number] Acct: [id number] Name: ALEJO MCGARRY Rep #: [id number] : 1960 57 From: Nitesh Mackenzie MD Attending Dr: Nelson Zimmerman DO Status: ADM IN Ordering Dr: Jeffrey Campos MD Date: 06/21/17 Location: ICU Sex: M C Admitted: 06/20/17 Reason For Study: Dyspnea/SOB Procedure This was a 2D Doppler, Color Flow transthoracic echocardiogram. Technically difficult study due to patient body habitus and patient condition. Patient was on a vent. The study was technically difficult. Contrast injection was performed. Exam performed portable in ICU/CCU. Left Ventricle Normal LV size. Mild segmental systolic dysfunction (see wall motion). The estimated ejection fraction is 50 %. Unable to assess diastolic dysfunction. Basal anteroseptal: Hypokinetic. Mid- Anterior : Hypokinetic. Mid-inferoseptal : Hypokinetic. Mid- anteroseptal : Hypokinetic. [place] : Hypokinetic. Right Ventricle Normal RV size. Normal systolic function. Atria The left atrium is mildly enlarged. The right atrium is not well visualized. No doppler evidence for ASD. Mitral Valve There is mild mitral annular calcification. Normal mitral valve. Trivial mitral valve insufficiency. Tricuspid Valve Normal tricuspid valve. Trivial tricuspid valve insufficiency. Unable to estimate RV systolic pressure/pulmonary artery pressure due to technically difficult study. Aortic Valve Trisinus/trileaflet aortic valve. Mild focal aortic valve thickening. Pulmonic Valve The pulmonic valve is not well visualized. Great Vessels Borderline to mildly dilated aortic root. Pericardium/Pleural No pericardial effusion. Medication Diluted definity 5ml given slow IV push to enhance endocardial definition. MMode/2D Measurements AND Calculations LVIDd: 5.2 cm IVSd: 0.99 cm Ao root diam: 4.0 cm LVIDs: 4.1 cm LVPWd: 1.1 cm LA dimension: 4.6 cm FS: 21.5 % Time Measurements MV dec time: 0.18 sec Doppler Measurements AND Calculations MV E max jake: 78.2 cm/sec Lat Peak E' Jake: 10.0 cm/sec Med Peak E' Jake: 7.6 cm/sec MV A max jake: 69.0 cm/sec E/E' lat: 7.8 E/E' med: 10.3 MV E/A: 1.1 MV V2 max: 126.2 cm/sec MV P1/2t max jake: 128.1 cm/sec Ao V2 max: 154.3 cm/sec MV max P.4 mmHg MV P1/2t: 86.4 msec Ao max P.5 mmHg MV V2 mean: 61.0 cm/sec MV dec slope: 434.0 cm/sec2 Ao V2 mean: 103.3 cm/sec MV mean P.9 mmHg MVA(P1/2t): 2.5 cm2 Ao mean P.8 mmHg MV V2 VTI: 38.6 cm Ao V2 VTI: 29.4 cm LV V1 max: 120.3 cm/sec PA V2 max: 66.4 cm/sec LV V1 max P.8 mmHg LV V1 mean P.9 mmHg LV V1 mean: 78.0 cm/sec LV V1 VTI: 26.8 cm Interpretation Summary The study was technically difficult. Contrast injection was performed. Mild segmental systolic dysfunction (see wall motion). The estimated ejection fraction is 50 %. The left atrium is mildly enlarged. There is mild mitral annular calcification. Trivial mitral valve insufficiency. Trivial tricuspid valve insufficiency. Mild focal aortic valve thickening. Borderline to mildly dilated aortic root. Unable to estimate RV systolic pressure/pulmonary artery pressure due to technically difficult study. Unable to assess diastolic dysfunction. Ordering Physician: Jeffrey Campos Referring Physician: Tio Parker Performed By: Edward Chavez RCS 06/21/17 1047 Date Nitesh Mackenzie MD CC: Jeffrey Campos MD; Nelson Parker Date Dictated: 06/21/17 0850 Date Transcribed: 06/21/[id number] Clerk Cashier: Signed BLOOD GASES BY CPS Collected: 06/21/2017 Status: F Source: ANÍBAL 5:39 AM [facility] REPOSITORY TYPE CODE TESTS RESULT OUT OF RANGE REFERENCE UNITS LAB L9000.9990 Normal BLD GAS TYPE ART LAB L9001.1000 Normal SITE R Radial LAB L9001.1010 Normal ELIZABETH TEST POS LAB L9001.1048 Normal Mode A-C LAB L9001.1050 O2 Normal Delivery Dev Vent LAB L9001.1060 MV Normal 7.00 LAB L9001.1065 Vt Normal 450 LAB L9001.1070 RR Normal 16 LAB L9001.1074 Normal FI02 85 LAB L9001.1076 Normal PEEP 12 LAB L9001.1104 Normal Results To ICU LAB L9001.1105 Normal Time Given 540 LAB L9001.1110 7.35-7.45 pH Normal - I-STAT 7.40 LAB L9001.1210 35-45 mmHg High pCO2 - ISTAT 64.1 LAB L9001.1310 75-100 mmHG Low PO2 I-STAT 65 LAB L9001.2300 22-26 mmol/L High HCO3 ISTAT 39.4 LAB L9001.2400 -2 to +2 mmol/L High BE ISTAT 15 LAB L9001.2415 mmol/L Normal TOTAL CO2 41 ISTAT LAB L9001.2425 95-99 % Low SO2 ISTAT 91 Performed By: #### L9000.0800 #### [facility] Point of Care [address] [place], [place] [address] Observed: 06/21/2017 Status: F Source: ANÍBAL CULTURE, SPUTUM 4:00 AM [facility] REPOSITORY Gram Stain Gram Stain 2+ White Blood Cells 1+ Gram positive cocci Resp. Culture Mixed normal respiratory lynne. No Haemophilus, Streptococcus pneumoniae, beta-hemolytic Streptococcus or Staphylococcus aureus isolated. Performed By: #### M100.0800 #### [facility] [address] [place], [address] CBC-COMPLETE BLOOD CNT Collected: 06/21/2017 Status: F Source: ANÍBAL NO DIFF 3:40 AM [facility] REPOSITORY Order Comment: SPECIMEN OBTAINED FROM LINE DRAW TYPE CODE TESTS RESULT OUT OF RANGE REFERENCE UNITS LAB L100.1000 4.4-11.0 K/mm3 Normal WBC 6.9 LAB L100.1200 4.6-6.2 M/mm3 Low RBC 4.47 LAB L100.1300 13.0-16.5 g/dl Low HGB 11.5 LAB L100.1400 40-54 % Low HCT 39.6 LAB L100.1500 80-94 fL Normal MCV 88.6 LAB L100.1600 27.0-32.0 pg Low MCH 25.7 LAB L100.1700 32-36 g/gl Low MCHC 29.0 LAB L100.1810 11.6-14.6 % High RDW CV 17.1 LAB L100.1820 35.1-43.9 fl High RDW SD 55.1 LAB L100.1900 150-450 K/mm3 Normal PLT 180 LAB L100.2000 6.2-12.0 fl Normal MPV 9.2 Performed By: #### L100.0500 #### [facility] [address] [place], [place], [address] BASIC METABOLIC Collected: 06/21/2017 Status: F Source: ANÍBAL PROFILE (BMP) 3:40 AM [facility] REPOSITORY Order Comment: SPECIMEN OBTAINED FROM LINE DRAW TYPE CODE TESTS RESULT OUT OF RANGE REFERENCE UNITS LAB L501.0100 74-106 mg/dL High GLU 135 Result Comment: Fasting Glucose result greater than or equal to 126 mg/dL suggests DIABETES MELLITUS per A.D.A. criteria. Please note revised GLUCOSE reference range effective 2017. LAB L501.1000 7-18 mg/dL High BUN 32 LAB L501.1100 0.70-1.30 mg/dL Normal CREAT,SERUM 0.83 Result Comment: The validity of the calculated GFR AND GFRAA in patients over 70 years has not been determined. Clinical correlation is essential. LAB L501.1110 >60 mL/min Normal EST GFR 100 Result Comment: Non- GFR Calc LAB L501.1115 >60 mL/min Normal EST GFR - AA 121 Result Comment: GFR Calc LAB L501.1255 ml/min Normal Estimated CRCL 105.18 LAB L501.1300 10-20 RATIO High BUN/CRE 38.5 LAB L501.2200 8.5-10 mg/dL Low .1 CA 8.4 LAB L501.5300 136-14 mmol/L 5 NA Normal 140 LAB L501.5600 3.5-5. mmol/L 1 K Normal 4.3 LAB L501.5900 98-107 mmol/L Low CL 96 LAB L501.6100 21.0-3 mmol/L High 2.0 CO2 37.0 LAB L501.6200 5-15 GAP Normal 7 Performed By: #### L500.2500 #### [facility] [address] [place], [place], [address] BEDSIDE GLUCOSE Collected: 06/20/2017 Status: F Source: ANÍBAL 11:27 PM [facility] REPOSITORY TYPE CODE TESTS RESULT OUT OF REFERENCE UNITS RANGE LAB L501.080 70-110 mg/dL High BEDSIDE GLU 160 Result Comment: MANAGEMENT OF PATIENT CARE PER NURSING PROTOCOL Performed By: #### L501.080 #### [facility] Point of Care [address] [place] [address] BLOOD GASES BY [facility] Collected: 06/20/2017 Status: F Source: JAY 8:05 PM [facility] REPOSITORY TYPE CODE TESTS RESULT OUT OF RANGE REFERENCE UNITS LAB L9000.9990 Normal BLD GAS TYPE ART LAB L9001.1000 Normal SITE R Radial LAB L9001.1010 Normal ELIZABETH TEST POS LAB L9001.1048 Normal Mode A-C LAB L9001.1050 O2 Normal Delivery Dev Vent LAB L9001.1060 MV Normal 8.00 LAB L9001.1065 Vt Normal 550 LAB L9001.1070 RR Normal 16 LAB L9001.1074 Normal FI02 75 LAB L9001.1076 Normal PEEP 10 LAB L9001.1104 Normal Results To ICU LAB L9001.1105 Normal Time Given 2000 LAB L9001.1110 7.35-7.45 pH Normal - I-STAT 7.45 LAB L9001.1210 35-45 mmHg High pCO2 - ISTAT 54.6 LAB L9001.1310 75-100 mmHG Low PO2 I-STAT 45 LAB L9001.2300 22-26 mmol/L High HCO3 ISTAT 37.9 LAB L9001.2400 -2 to +2 mmol/L High BE ISTAT 14 LAB L9001.2415 mmol/L Normal TOTAL CO2 40 ISTAT LAB L9001.2425 95-99 % Low SO2 ISTAT 81 Performed By: #### L9000.0800 #### [facility] Point of Care [address] [place] [address] Observed: 06/20/2017 Status: F Source: JAY INFLUENZA A+B (RAPID 6:30 PM [facility]) REPOSITORY FLU A/B Rapid Negative test results should be confirmed by culture. Order Rapid Viral Culture for Influenzae A+B ([id number]) if clinically indicated. Influenza Ag, Direct Presumptive NEGATIVE for Influenza A/B Antigen (See Note) Performed By: #### M101.0101 #### [facility] [address] [place], [address] Observed: 06/20/2017 Status: F Source: ANÍBAL LEGIONELLA ANTIGEN 5:40 PM [facility] URINE REPOSITORY Legionella, UR Legionella Antigen result interpretation: Negative Presumptive negative for Legionella pneumophila serogroup 1 antigen in urine, suggesting no recent or current infection. Legionella Ag, Urine Negative (See interpretation below) Performed By: #### M300.4500 #### [facility] [address] [place], [address] STREP Observed: 06/20/2017 Status: F Source: ANÍBAL PNEUMONIAE ANTIG(UR,CSF) 5:40 PM [facility] REPOSITORY S pneumo Ag Negative Urine Presumptive negative for pneumococcal pneumonia, suggesting no current or recent pneumococcal infection. Infection due to S pneumoniae cannot be ruled out since the antigen present in the sample may be below the detection limit of the test. Strep pneumo Test Negative URINE (See interpretation below) Performed By: #### M300.4600 #### [facility] [place], [address] M R STAPH AUREUS Collected: 06/20/2017 Status: F Source: ANÍBAL DNA BY PCR 5:40 PM [facility] REPOSITORY TYPE CODE TESTS RESULT OUT OF RANGE REFERENCE UNITS LAB L8200.1100 Negative Normal MRSA Negative RESULT Performed By: #### L8200.1000 #### [facility] [place], [address] URINALYSIS, COMPLETE Collected: 06/20/2017 Status: F Source: ANÍBAL 5:40 PM [facility] REPOSITORY Order Comment: Order Date: 06/20/17 How was Urine Obtained? DUST MILL OPERATOR TO SPECIFY TYPE CODE TESTS RESULT OUT OF RANGE REFERENCE UNITS LAB L400.3000 Yellow COLOR Normal Yellow LAB L400.3050 Clear Normal CLARITY Turbid LAB L400.3200 Normal mg/dl Normal GLUCOSE, UR Normal LAB L400.3300 Negative mg/dL Normal BILIRUBIN URINE Negative LAB L400.3400 Negative mg/dl Normal KETONE UR Negative LAB L400.3465 1.002-1.030 Normal SP.GR. DIPSTX 1.015 LAB L400.3550 5.0 - 8.0 pH UR Normal 7.0 LAB L400.3600 Negative mg/dl High PROT 30 DIPSTX LAB L400.3700 Normal mg/dl Normal UROBILI Normal LAB L400.3750 Negative Normal NITRITE UR Negative LAB L400.3780 Negative /ul High 10 OCCULT BLOOD-UR LAB L400.3800 Negative /ul LEUK Normal ESTERASE Negative LAB L400.4050 0-5 /hpf WBC 0 Normal SEEN LAB L400.4100 0-5 /hpf 0 Normal RBC-UA SEEN LAB L400.4150 0-5 /hpf SQUAM 0 Normal EPI SEEN LAB L400.4300 None Seen /hpf 0 Normal BACTERIA SEEN LAB L400.4350 <or=2+ /hpf 0 Normal MUCUS, URINE SEEN LAB L400.4900 4+ Normal AMORPHOUS Performed By: #### L400.0001 #### [facility] [address] [place], [address] Observed: 06/20/2017 Status: F Source: JAY CULTURE, URINE 5:40 PM [facility] REPOSITORY Order Date: 06/20/17 Urine Culture Culture exhibits no growth. Performed By: #### M100.0650 #### [facility] [address] [place], [address] HISTORY AND PHYSICAL Observed: 06/20/2017 Status: F Source: JAY EXAM 5:23 PM [facility] REPOSITORY [facility] Medical Records Department [address] [place] [id number] History and Physical 06/20/17 1711 MR#: [id number] Acct: [id number] Name: WILLIAMALEJO L Rep #: [id number] : 1960 57 From: Juan Manuel Subramanian DO PCP: Tio Parker Status: ADM IN Y Location: ICU ICU04-1 Problem List (1) Acute respiratory failure with hypoxia and hypercapnia Status: Acute (2) Pneumococcal pneumonia Status: Acute (3) Metabolic encephalopathy Status: Acute (4) Atherosclerotic heart disease of [place] coronary artery without angina pectoris Status: Chronic Comment: PCI/stent LAD w/ 4.0 x 32 mm Promus 2012; PCI/GISSEL to Prox LAD w/ 4.0 x 20 mm Promus 02/25/16 for instent restenosis (5) Asthma-COPD overlap syndrome Status: Chronic Comment: FEV1 46% (01/11/2017) (6) DM2 (diabetes mellitus, type 2) Status: Chronic (7) NSTEMI (non-ST elevated myocardial infarction) Status: Chronic (8) Venous stasis of lower extremity Status: Chronic (9) Heart failure with reduced ejection fraction Status: Acute Qualifiers: Heart failure chronicity: acute Qualified Code(s): I50.21 - Acute systolic (congestive) heart failure History of Present Illness Date of Admission: 06/20/17 Chief Complaint: unresponsive The patient is a 57 year old M was found unresponsive at his assisted living. Patient was notably hypoxic in the 80s on 100% oxygen. Sent emergency room and was intubated. Chest x-ray was concerning for CHF as well as pneumonia. Patient received Solu-Medrol, aerosols, Zosyn with vancomycin. Patient is unable to provide any history given that he was sedated in debated. No family is present at bedside. Apparently patient was found with a bag of Funyuns and cigarettes on him. [] Past Medical History Past Medical History (Chronic Problems): Chronic Problems (Last Reviewed 06/13/17 @ 14:25 by Binta Isaac) Ischemic cardiomyopathy (Chronic) Chronic systolic congestive heart failure (Chronic) Presence of stent in coronary artery (Chronic 02/25/16) PCI/stent LAD w/ 4.0 x 32 mm Promus 2012; PCI/GISSEL to Prox LAD w/ 4.0 x 20 mm Promus 02/25/16 for instent restenosis Atherosclerotic heart disease of [place] coronary artery without angina pectoris (Chronic) PCI/stent LAD w/ 4.0 x 32 mm Promus 2012; PCI/GISSEL to Prox LAD w/ 4.0 x 20 mm Promus 02/25/16 for instent restenosis Asthma-COPD overlap syndrome (Chronic) FEV1 46% (01/11/2017) DM2 (diabetes mellitus, type 2) (Chronic) NSTEMI (non-ST elevated myocardial infarction) (Chronic) Venous stasis of lower extremity (Chronic) Ischemic cardiomyopathy (Chronic) EF of 35% on Cath in February of 2014 Allergies adhesive tape Adverse Reaction (Verified 06/13/17 14:25) Rash Home Medications: Ambulatory Orders Medication Instructions Recorded Mometasone/Formoterol [Dulera 200 1 puff IH BID 07/11/14 Surgical History: no surgical history Psychiatric History: No pertinent psych hx Lives: Alone Smoking Status: Current every day smoker Tobacco Use: - - Resume cigarettes but unable to obtain as the patient is sedated - *Family History Maternal History Items: No pertinent history, - - Unable to obtain as the patient is intubated and sedated Review of Systems Unable to obtain accurate/complete ROS d/t: Unable to obtain as the patient is intubated and sedated. VTE Information - Inpt Only VTE Present on Admission: No VTE Mechan Device Prophylaxis: SCD's VTE Pharm Prophylaxis ordered?: Yes Patient Problems: Active and Suspected Problems (Last Reviewed 06/13/17 @ 14:25 by Binta Isaac) Acute respiratory failure with hypoxia and hypercapnia (Acute) Pneumococcal pneumonia (Acute) Metabolic encephalopathy (Acute) Heart failure with reduced ejection fraction (Acute) - Physical Exam General: - - Intubated and sedated HEENT: Atraumatic, Normocephalic Neck: No Nodes, Thyroid Normal Size and Texture Lungs: Diminished, - - Coarse breath sounds bilaterally Cardiovascular: Regular rate, Regular Rhythm, Normal S1, Normal S2, No murmurs Abdomen: Bowel Sounds Present, Soft, Non Tender, Non-Distended, No Hepato-splenomegaly Extremities: No edema, No Calf Tenderness Skin: No rashes, No breakdown, - - Lymphedema changes lower extremities. Musculoskeletal: No Tenderness to Palpation of Joints or Extremities, No Muscle Wasting Psych/Mental Status: - - intubated and sedated Vital Signs Temp Pulse Resp BP Pulse Ox 36.6 C 81 18 121/79 H 88 06/20/17 13:58 06/20/17 16:09 06/20/17 16:09 06/20/17 16:00 06/20/17 16:09 Oxygen Delivery Method Mechanical Ventilator Weight: 173.3 kg Body Mass Index (BMI) 51.8 Laboratory Tests Past 24 Hrs WBC RBC Hgb Hct Assessment/Plan Active and Suspected Problems (Last Reviewed 06/13/17 @ 14:25 by Binta Isaac) Acute respiratory failure with hypoxia and hypercapnia (Acute) Pneumococcal pneumonia (Acute) Metabolic encephalopathy (Acute) Heart failure with reduced ejection fraction (Acute) 1. Acute hypoxic and hypercapnic respiratory failure * Multifactorial * On the vent * Treat the underlying processes * Pulmonary consult 2. Suspected pneumococcal pneumonia * Patient received vancomycin and Zosyn in the emergency room. * Appears patient about the hospital for 3 months of those should not be necessary * Patient will be on Rocephin and azithromycin on the floor * Pulmonary toilet 3. Acute heart failure with reduced ejection fraction * Ejection fraction of 30% from February 2014 * To be on IV Lasix 3. Suspected acute COPD exacerbation * Solu-Medrol and bronchodilators 4. Metabolic encephalopathy * Secondary to carbon dioxide narcosis 5. DVT prophylaxis with Lovenox and SCDs 6. Prophylaxis with H2 lori Code Visit Inpatient E AND M: 38142 Init Hosp L3 06/20/17 1723 <Electronically signed by Juan Manuel Subramanian DO> Date Juan Manuel Subramanian DO Cosigner Signature: Date (if applicable) CC: Juan Manuel Parker Signed CONSULTATION Observed: 06/20/2017 Status: F Source: JAY 4:35 PM [facility] REPOSITORY [facility] Medical Records Department [address] [place] [address] Consultation 06/20/17 1633 MR#: [id number] Acct: [id number] Name: ALEJO MCGARRY Rep #: [id number] : 1960 57 From: Hardy Montemayor MD PCP: Tio Parker Status: REG ER Y Location: ED Reason for Consult Date of Consultation: 06/20/17 Reason for Consultation: er can't place butler, severe meatal stenosis. History of Present Illness: The patient is a 57 year old male with ER with resp failure severe phimosis. Past Medical History Past Medical History (Chronic Problems): Chronic Problems (Last Reviewed 06/13/17 @ 14:25 by Binta Isaac) Ischemic cardiomyopathy (Chronic) Chronic systolic congestive heart failure (Chronic) Presence of stent in coronary artery (Chronic 02/25/16) PCI/stent LAD w/ 4.0 x 32 mm Promus 2012; PCI/GISSEL to Prox LAD w/ 4.0 x 20 mm Promus 02/25/16 for instent restenosis Atherosclerotic heart disease of [place] coronary artery without angina pectoris (Chronic) PCI/stent LAD w/ 4.0 x 32 mm Promus 2012; PCI/GISSEL to Prox LAD w/ 4.0 x 20 mm Promus 02/25/16 for instent restenosis Asthma-COPD overlap syndrome (Chronic) FEV1 46% (01/11/2017) DM2 (diabetes mellitus, type 2) (Chronic) NSTEMI (non-ST elevated myocardial infarction) (Chronic) Venous stasis of lower extremity (Chronic) Ischemic cardiomyopathy (Chronic) EF of 35% on Cath in February of 2014 Allergies adhesive tape Adverse Reaction (Verified 06/13/17 14:25) Rash Home Medications: Ambulatory Orders Medication Instructions Recorded Mometasone/Formoterol [Dulera 200 1 puff IH BID 07/11/14 Surgical History: no surgical history Smoking Status: Current every day smoker - *Family History Maternal History Items: No pertinent history Physical Exam - Physical Exam Vital Signs Temp 97.8 F 06/20/17 13:58 Pulse 81 06/20/17 16:09 Resp 18 06/20/17 16:09 BP 121/79 H 06/20/17 16:00 Pulse Ox 88 06/20/17 16:09 Intake AND Output Weight: 173.3 kg General: No apparent distress, Confused, Disoriented Oral: Moist Mucosa Neck: Supple Lungs: - - on vent Laboratory Tests Past 24 Hrs WBC RBC Hgb Hct Assessment/Plan dilated with bard kit and placed 16 fr butler tribal tip once does not need butler okay to d/c butler only place b/c on vent. 06/20/17 2970 <Electronically signed by Hardy Montemayor MD> Date Hardy Montemayor MD Cosigner Signature (if applicable): Date CC: Tio Parker Signed EMERGENCY DEPARTMENT Observed: 06/20/2017 Status: F Source: JAY SUMMARY 3:51 PM [facility] REPOSITORY [facility] Medical Records Department [address] [place] [address] Emergency Department Summary 06/20/17 1533 MR#: [id number] Acct: [id number] Name: ALEJO MCGARRY Rep #: [id number] : 1960 57 From: Robert Najera MD PCP: Tio Parker Status: REG ER - ER Visit Summary Date of Service: 06/20/17 Chief Complaint: Unresponsive History of Present Illness: The patient is a 57 M assisted living. He has a history of COPD, asthma, CHF, coronary disease, diabetes, and pneumonia. He is only responding to painful stimuli at this time and cannot provide history. It sounds like he was confused earlier this morning but was refusing to come to the emergency department. He got worse throughout the day, and was brought in by EMS. He was hypoxic on 100% oxygen. We are unsure of any other new or recent history. Physical Examination: Afebrile and vital signs unremarkable. 81% pulse ox on 100% oxygen. Patient is only responding to painful stimuli, GCS 7. Lungs are diminished throughout. Abdomen soft and nontender. Patient is morbidly obese. Test Results: EKG showed sinus rhythm at a rate of 93. No acute infarction pattern. Hemoglobin 12.5. Potassium 5.5, chloride 95, CO2 40, glucose 127, BUN 32. Hepatic panel and coags normal. Urinalysis pending. Troponin normal. Lactate normal. Cultures pending. PH 7.23, O2 85 and CO2 96.9. Chest x-ray showed cardiomegaly, congestion, and possible infiltrate. CT head was normal. Emergency Department Course and Treatment: Patient was intubated shortly after arrival for mental status change and hypoxia. Direct visualization unsuccessful, and so glidescope was used. This was successful on the first attempt. Good color change on capnography. Equal breath sounds. Stomach quiet. Induction with etomidate and succinylcholine. Sedated with propofol and fentanyl. Patient treated with DuoNeb and Solu-Medrol. Chest x-ray showed congestion and possible infiltrate. He was covered with Zosyn and vancomycin. BNP is pending. Patient is stable on the vent. I spoke with the wastewater supervisor and the hospitalist will admit. Nursing had some difficulty placing the Butler catheter. It appears that the patient has a chronic phimosis and I spoke with Dr. Montemayor will see the patient in the ICU and place a catheter. Treatment Plan: Above Disposition: Admission to ICU Impression: 1. Acute respiratory failure 2. COPD 3. CHF This note was generated with Innofideiation software. It may contain incorrect words, spelling, and punctuation that were not noted in review of the chart prior to signing ED Disposition - Plan for ED Patient: Chief Complaint: Unresponsive Referrals: Tio Parker MD [Primary Care Provider] - What to do if you have Problems For any increased pain, shortness of breath, bleeding, nausea or vomiting, chest pain, or any unexpected problems, contact your Primary Care Provider. Call [facility] ([phone]) or report to the closest Emergency Room. Call 911 if necessary. 06/20/17 1551 <Electronically signed by Robert Najera MD> Date Robert Najera MD Cosigner Signature (If Indicated): Date CC: Tio Parker Observed: 06/20/2017 Status: F Source: ANÍBAL CULTURE, BLOOD (WB) 2:03 PM [facility] REPOSITORY BC No growth in 5 days. Performed By: #### M200.1000 #### [facility] [address] [place], [address] BLOOD GASES BY CPS Collected: 06/20/2017 Status: F Source: ANÍBAL 1:40 PM [facility] REPOSITORY TYPE CODE TESTS RESULT OUT OF RANGE REFERENCE UNITS LAB L9000.9990 Normal BLD GAS TYPE ART LAB L9001.1000 Normal SITE R Radial LAB L9001.1010 Normal ELIZABETH TEST POS LAB L9001.1048 Normal Mode A-C LAB L9001.1050 O2 Normal Delivery Dev Vent LAB L9001.1060 MV Normal 10.00 LAB L9001.1065 Vt Normal 500 LAB L9001.1070 RR Normal 16 LAB L9001.1074 Normal FI02 60 LAB L9001.1076 Normal PEEP 8 LAB L9001.1104 Normal Results To ED LAB L9001.1105 Normal Time Given 1335 LAB L9001.1110 7.35-7.45 Low pH - I-STAT 7.23 LAB L9001.1210 35-45 mmHg High alert pCO2 - ISTAT 96.9 LAB L9001.1310 75-100 mmHG Low PO2 I-STAT 63 LAB L9001.2300 22-26 mmol/L High HCO3 ISTAT 40.3 LAB L9001.2400 -2 to +2 mmol/L High BE ISTAT 13 LAB L9001.2415 mmol/L Normal TOTAL CO2 43 ISTAT LAB L9001.2425 95-99 % Low SO2 ISTAT 85 Performed By: #### L9000.0800 #### [facility] Point of Care [address] [place] [address] BRAIN/HEAD WITHOUT Observed: 06/20/2017 Status: F Source: JAY CONTRAST 1:13 PM [facility] REPOSITORY [facility] Imaging Services [address] [place] [address] Brain/Head without Contrast MR#: [id number] Acct: [id number] Name: ALEJO MCGARRY Rep #: [id number] : 1960 M 57 From: Akhil Izquierdo MD PCP: Tio Parker Status: REG ER Study: Brain/Head without Contrast Date of Exam: 06/20/17 Exam# [id number] Ordering Dr: Robert Najera MD STUDY: CT BRAIN WITHOUT CONTRAST REASON FOR EXAM: Male, 57 years old. Unresponsive. RADIATION DOSAGE (If Supplied By Facility): CTDIvol = ( 44.99 ) mGy, DLP = ( 880.47 ) mGycm TECHNIQUE: Transaxial CT imaging of the brain was performed without administration of intravenous contrast material. Individualized dose optimization techniques were used for this CT. COMPARISON: None. FINDINGS: Normal soft tissue structures. Normal calvarium. An endotracheal tube is in situ. Normal size ventricles and extra-axial spaces for the patient's age. Normal white matter tracts of the cerebral hemispheres. Normal basal ganglia and thalami. Normal brainstem. Normal cerebellum. There is no intracranial hemorrhage. There are no findings of an acute ischemic infarction. Partial opacification of the ethmoid sinuses. CT/Brain/Head without Contrast IMPRESSION: Normal unenhanced CT scan of the brain. Electronically Signed: Akhil Izquierdo MD at 15:15 EDT Tel [phone], Service support , CC: Robert Najera MD; Tio Parker Clerk Cashier: Signed CHEST 1 VIEW Observed: 06/20/2017 Status: F Source: JAY (PORTABLE) 1:11 PM [facility] REPOSITORY [facility] Imaging Services [address] [place] [address] Chest 1 View (Portable) MR#: [id number] Acct: [id number] Name: ALEJO MCGARRY Rep #: [id number] : 1960 M 57 From: Akhil Izquierdo MD PCP: Tio Parker Status: REG ER Study: Chest 1 View (Portable) Date of Exam: 06/20/17 Exam# [id number] Ordering Dr: Robert Najera MD STUDY: X-RAY CHEST REASON FOR EXAM: Male, 57 years old. Unresponsive. Shortness of breath. Intubation. TECHNIQUE: Single AP portable view of the chest. COMPARISON: Comparison is made with prior study dated February 20, 2016. FINDINGS: An endotracheal tube is in situ. The tip is at 3.5 cm proximal to the byron. An oral gastric tube is seen with the tip below the left hemidiaphragm. EKG electrodes are seen. Passive congestion. Increased markings in the upper lobes worse on the right side with the focal atelectasis and/or infiltrate in the right upper lobe abutting the right minor fissure. There is moderate cardiac enlargement. Normal mediastinum and marta. Normal visualized pulmonary arteries. Normal visualized aortic arch and descending thoracic aorta. Normal visualized thoracic spine. Normal visualized ribs, clavicles, and shoulders. There is no demonstrated abnormality of the visualized soft tissue structures of the upper abdomen. RAD/Chest 1 View (Portable) IMPRESSION: The tip of the endotracheal tube is at 3.5 cm proximal to the byron. Cardiomegaly. Findings suggestive of vascular congestion with infiltrate and/or atelectasis is worse on the right side with thickening of the right minor fissure. Electronically Signed: Akhil Izquierdo MD at 14:01 EDT Tel [phone], Service support , CC: Robert Najera MD; Tio Parker Clerk Cashier: Signed CBC W/DIFF, AUTOMATED Collected: 06/20/2017 Status: F Source: JAY 12:50 PM [facility] REPOSITORY TYPE CODE TESTS RESULT OUT OF RANGE REFERENCE UNITS LAB L100.1000 4.4-11.0 K/mm3 Normal WBC 8.8 LAB L100.1200 4.6-6.2 M/mm3 Normal RBC 4.81 LAB L100.1300 13.0-16.5 g/dl Low HGB 12.5 LAB L100.1400 40-54 % Normal HCT 45.2 LAB L100.1500 80-94 fL Normal MCV 94.0 LAB L100.1600 27.0-32.0 pg Low MCH 26.0 LAB L100.1700 32-36 g/gl Low MCHC 27.7 LAB L100.1810 11.6-14.6 % High RDW CV 17.7 LAB L100.1820 35.1-43.9 fl High RDW SD 60.8 LAB L100.1900 150-450 K/mm3 Normal PLT 221 LAB L100.2000 6.2-12.0 fl Normal MPV 9.4 LAB L100.2100 47-70 % High NEUT% 76.2 LAB L100.2200 19-41 % Low LY% 13.0 LAB L100.2300 0-10 % Normal MONO% 8.7 LAB L100.2400 0-5 % Normal EO% 0.6 LAB L100.2500 0-1 % Normal BASO% 0.1 LAB L100.2550 0.0-0.9 % High IM GRAN % 1.400 Result Comment: IG% - Immature Granulocytes (promyelocytes, myelocytes and metamyelocytes) > 1% indicates that a LEFT SHIFT is Present. LAB L100.2620 2.0-7.7 X10 3/uL Normal Absolute Neut 6.7 LAB L100.2720 0.83-4.51 X10 3/ul Normal Absolute Lymph 1.15 Performed By: #### L100.0100 #### [facility] [address] [place], [address] COMPREHENSIVE METABOLIC Collected: 06/20/2017 Status: F Source: [facility] 12:50 PM [facility] REPOSITORY TYPE CODE TESTS RESULT OUT OF RANGE REFERENCE UNITS LAB L501.0100 74-106 mg/dL High GLU 127 Result Comment: Fasting Glucose result greater than or equal to 126 mg/dL suggests DIABETES MELLITUS per A.D.A. criteria. Please note revised GLUCOSE reference range effective 2017. LAB L501.1000 7-18 mg/dL High BUN 32 LAB L501.1100 0.70-1.30 mg/dL Normal CREAT,SERUM 0.94 Result Comment: The validity of the calculated GFR AND GFRAA in patients over 70 years has not been determined. Clinical correlation is essential. LAB L501.1110 >60 mL/min Normal EST GFR 88 Result Comment: Non- GFR Calc LAB L501.1115 >60 mL/min Normal EST GFR - AA 106 Result Comment: GFR Calc LAB L501.1255 ml/min Normal Estimated CRCL 92.87 LAB L501.1300 10-20 RATIO High BUN/CRE 34.2 LAB L501.1500 6.4-8. g/dL Normal 2 T PROT 7.9 LAB L501.1800 3.2-5. g/dL Normal 0 ALB 3.3 LAB L501.1950 2.2-4. g/dL High 2 GLOB 4.6 LAB L501.2000 0.9-2. RATIO Low 4 A/G 0.7 LAB L501.2200 8.5-10 mg/dL Low .1 CA 8.2 LAB L501.4100 15-37 U/L Normal AST 19 LAB L501.4305 45-117 U/L Normal ALK P 107 LAB L501.4405 16-61 U/L Normal ALT 30 LAB L501.4600 0.20-1 mg/dL Normal .00 T BILI 0.40 LAB L501.5300 136-14 mmol/L Normal 5 NA 136 LAB L501.5600 3.5-5. mmol/L High 1 K 5.5 LAB L501.5900 98-107 mmol/L Low CL 95 LAB L501.6100 21.0-3 mmol/L High 2.0 CO2 40.0 LAB L501.6200 5-15 Low GAP 1 Performed By: #### L500.4050, L501.4010 #### [facility] [address] [facility] [place], [place], [address] TROPONIN-I Collected: 06/20/2017 Status: F Source: JAY 12:50 PM [facility] REPOSITORY TYPE CODE TESTS RESULT OUT OF RANGE REFERENCE UNITS LAB L501.4010 <0.045 ng/mL Normal < 0.015 TROPONIN-I Result Comment: TROPONIN-I EXPECTED VALUES <0.045 Negative 0.045 - 0.590 Consistent with Cardiac Damage > OR = 0.600 Critical Value Not every elevated troponin is indicative of AR. These values should be used with clinical judgement in examining the patient's clinical picture for diagnosis. To establish a diagnosis of AR versus myocardial injury, there must be a demonstrated rise and/or fall in the troponin values, in addition to ischemic symptoms, EKG changes, new regional wall motion abnormality, and/or angiographical evidence. PLEASE NOTE: REFERENCE RANGES EDITED 17 Performed By: #### L500.4050, L501.4010 #### [facility] [address] [place], [address] LACTIC ACID Collected: 06/20/2017 Status: F Source: JAY 12:50 PM [facility] REPOSITORY Order Comment: Yes/No query for Sepsis Lactate Rule Y TYPE CODE TESTS RESULT OUT OF RANGE REFERENCE UNITS LAB L503.6005 0.4-2.0 mmol/L Normal LACTIC ACID 0.7 Performed By: #### L503.6005 #### [facility] [address] [place], [address] PROTHROMBIN TIME W/INR Collected: 06/20/2017 Status: F Source: ANÍBAL 12:50 PM [facility] REPOSITORY TYPE CODE TESTS RESULT OUT OF RANGE REFERENCE UNITS LAB L300.4150 11.7-14.9 SECONDS Normal PROTIME 13.9 LAB L300.4200 Normal INR 1.1 Performed By: #### L300.3900, L300.4310 #### [facility] [address] [place], [address] PARTIAL THROMBOPLAST Collected: 06/20/2017 Status: F Source: ANÍBAL TIME 12:50 PM [facility] REPOSITORY TYPE CODE TESTS RESULT OUT OF RANGE REFERENCE UNITS LAB L300.4310 24.1-36.2 Seconds Normal PTT 27.8 Performed By: #### L300.3900, L300.4310 #### [facility] [address] [place], [address] BNP,B-TYPE NATRIURETIC Collected: 06/20/2017 Status: F Source: ANÍBAL PEPTIDE 12:50 PM [facility] REPOSITORY TYPE CODE TESTS RESULT OUT OF RANGE REFERENCE UNITS LAB L503.6620 0-100 pg/mL High B-TYPE 340.8 YOVANA PEP Performed By: #### L503.6620 #### [facility] [address] [place], [address] Observed: 06/20/2017 Status: F Source: ANÍBAL CULTURE, BLOOD (WB) 12:50 PM [facility] REPOSITORY BC No growth in 5 days. Performed By: #### M200.1000 #### [facility] [address] [place], [address] CARDIOLOGY VISIT Observed: 06/13/2017 Status: F Source: JAY REPORT 2:50 PM [facility] REPOSITORY [facility] [address] [place] [address] OFFICE VISIT Date of Service: 06/13/17 MR#: [id number] Acct: [id number] Name: ALEJO MCGARRY Rep #: [id number] : 1960 Provider: Robert Li MD Age/Sex: 57/M Location: [facility] Status: Signed HPI HPI Chief Complaint: Routine f/u Details: HPI Patient is a very pleasant 57-year-old morbidly obese diabetic gentleman with a history of hypertension, hypercholesterolemia, coronary disease s/p stent to his proximal LAD several years ago in 2012 by myself. Patient had a repeat stress test in February 2014 which demonstrated old anteroseptal wall AR and possible adelita-infarct ischemia. He underwent repeat catheterization at that time which demonstrated widely patent stent with mild to moderate in-stent restenosis, no other lesions and very small right coronary artery which was chronically occluded with right to right collaterals. Patient did not follow up with me for some time and was recently admitted to [facility] ER on 02/21/16. Patient reported nonexertional unstable anginal symptoms described as a 6 out of 10 in nature. This occurred well he was watching TV. His EKG in the ER demonstrated normal sinus rhythm with old anterior wall microinfarction, no acute changes noted. His troponin was initially negative and 1 up to 0.69 and a peak of 1.05. He had remained chest pain-free. He continues of cigarettes per day started smoking at age 10 consistent with at least a 81-74-wsvj-year smoking history. There is some question as to his medical compliance. Given his history he underwent repeat catheterization on 02/23/16 which demonstrated significant in-stent restenosis and required a repeat stent. He received a 4.0X 20 Promus synergy stent without complication. He was then scheduled to undergo a repeat stress test in 3 weeks' time to evaluate his circumflex which demonstrated ectasia in the proximal portion and some possible minor plaque ulceration that was nonflow limiting. Ejection fraction was 40 45 percent. Patient underwent a nuclear stress test which demonstrated no evidence of inferolateral ischemia in the left circumflex territory, but did have some mild mid anterior infarcted area consistent with his previous LAD stenosis and stenting. The patient now returns today and is doing quite well. Patient still at assisted living center but doing fairly well. He is walking with a wheeled walker without difficulty. He denies any exertional angina, chest pain, shortness of breath. He feels markedly better since his stent He is taking and tolerating his medicines well. He is on 2 L of nasal cannula at bedtime only. He is taking and tolerating his medicines well. Patient has had approximately 25 pound weight gain since his last visit, and reportedly due to the better food at the assisted living where he lives. He denies any chest pain or angina. He also complains of worsening lower extremity edema. His gabapentin was recently increased due to neuralgias. Otherwise he is taking and tolerating his medicines well. In our office today blood pressure is 88/50, pulse is 92 and regular. His physical exam is below. Lipids as of 02/22/16 showed LDL of 64 and HDL of 42. Intake Vital Signs06/13/17 Height 5 ft 8 in Intake Visit Reasons: 6 M FU Allergies adhesive tape Adverse Reaction (Verified 06/13/17 14:25) Rash Medications Mometasone/Formoterol [Dulera 200 Mcg/5 Mcg Inhaler] 1 puff IH BID 07/11/14 [History Confirmed 06/10/17] Aspirin E.C. [Ecotrin] 81 mg PO DAILY@0800 12/27/15 [History Confirmed 06/13/17] Atorvastatin Calcium [Lipitor] 40 mg PO QHS 12/27/15 [History Confirmed 06/13/17] Mag Hydrox/Al Hydrox/Simeth [Antacid Liquid] 30 ml PO Q4H PRN PRN 12/27/15 [History Confirmed 06/13/17] Magnesium Hydroxide [Milk Of Magnesia] 30 ml PO DAILY PRN PRN 12/27/15 [History Confirmed 06/13/17] Polyvinyl Alcohol/Povidone/Pf [Refresh Classic Eye Drops] 1 ea OP PRN PRN 12/27/15 [History Confirmed 06/10/17] Oxygen, Home [Home Oxygen] 2 lpm NASAL PRN PRN 02/20/16 [History Confirmed 06/10/17] Clopidogrel Bisulfate [Plavix] 75 mg PO DAILY #30 tab 02/24/16 [Rx Confirmed 06/13/17] Metformin HCl [Glucophage] 1,000 mg PO BIDCM #60 tab 02/24/16 [Rx Confirmed 06/13/17] Acetaminophen [Mapap] 1,000 mg PO TID PRN PRN 01/17/17 [History Confirmed 06/13/17] Albuterol Aerosols [Ventolin Aerosols] 2.5 mg INHALATION TID 01/17/17 [History Confirmed 06/13/17] Cetirizine HCl [Zyrtec] 10 mg PO QHS 01/17/17 [History Confirmed 06/13/17] Meloxicam [Mobic] 15 mg PO DAILY 01/17/17 [History Confirmed 06/13/17] Polyethylene Glycol 3350 [Miralax] 17 gm PO DAILY 01/17/17 [History Confirmed 06/10/17] carvedilol 6.25 mg tablet 6.25 mg PO BID 06/10/17 [History Confirmed 06/13/17] furosemide 40 mg tablet 40 mg PO BID tab 06/13/17 [History Confirmed 06/13/17] gabapentin 300 mg capsule 400 mg PO BID cap 06/13/17 [History Confirmed 06/13/17] losartan 50 mg tablet 25 mg PO QDAY tab 06/13/17 [History Confirmed 06/13/17] metolazone 2.5 mg tablet 2.5 mg PO .1xweek tab 06/13/17 [History Confirmed 06/13/17] potassium chloride ER 20 mEq tablet,extended release 20 meq PO QDAY 06/13/17 [History Confirmed 06/13/17] PFSH Medical History Ischemic cardiomyopathy (Chronic) Chronic systolic congestive heart failure (Chronic) Atherosclerotic heart disease of [place] coronary artery without angina pectoris (Chronic) Asthma-COPD overlap syndrome (Chronic) DM2 (diabetes mellitus, type 2) (Chronic) NSTEMI (non-ST elevated myocardial infarction) (Chronic) Venous stasis of lower extremity (Chronic) Ischemic cardiomyopathy (Chronic) Hypersomnia (Chronic) EMILIA (obstructive sleep apnea) (Chronic) Chest pain (Resolved) Respiratory failure, acute (Resolved) Hyponatremia (Inactive) Surgical History Presence of stent in coronary artery (Chronic 02/25/16) H/O percutaneous transluminal coronary angioplasty (Chronic) History of cardiac catheterization (Chronic 02/25/16) Amputated great toe of left foot (Resolved) Family History Mother Diabetes Heart disease AR Social History Smoking Status: Current every day smoker tobacco type: cigarettes second hand exposure: Yes alcohol intake: current alcohol intake frequency: holidays/special occasions only Alcohol type: beer substance use type: does not use caffeine: Yes (3/day) what type of physical activity do you participate in: walking frequency: daily ROS Const Const: Positive for fatigue and weakness; negative for difficulty sleeping, excessive sweating, frequent falls or headache(s) Eyes Eyes: Negative for loss of peripheral vision, transient loss of vision, blurry vision or double vision ENT ENT: Negative for Nosebleed/epistaxis, balance problems, headache(s) or dizziness Cardio Chest Pain: No Edema: None, Bilateral (non pitting ) Muscle aches with walking: None Resp Respiratory: Positive for SOB with activity (SOB with little activity), Cough (moist) and other (diminished t/o); negative for SOB at rest, SOB orthopnea\SOB lying down or paroxysmal nocturnal dyspnea Additional Details: Uses O2 at bedtime GI GI: Negative nausea or heartburn : Negative for hematuria Musc Musc: Negative for muscle aches/ myalgia, muscle weakness, joint pain or balance problems Skin Skin: Negative non-healing lesions, unusual bruising or rash Neuro Neuro: Positive for weakness; negative for frequent falls, blurry vision, headache(s), dizziness, lightheadedness, orthostatic symptoms or double vision Gabriel Hematologic/Lymphatic: Negative for easy bruising Endo Endo: Positive for fatigue; negative for excessive sweating or increased thirst/drinking Psych Psych: Negative for anxiety or depression Allergy Allergy/Immunology: Negative for hives, Negative for rash Assessment AND Plan 1. Ischemic cardiomyopathy I25.5 Plan 1. Ischemic cardiomyopathy: The patient has no anginal symptoms however he has had a 25 pound weight gain since her last visit, and he has had worsening lower extremity edema with reportedly improved p.o. intake but most likely secondary to salt water retention. I recommend that we decrease his losartan to 25 mill grams p.o. daily, continue his Coreg as well as his baby aspirin and Plavix. As he has no anginal symptoms we will hold off on repeat stress testing. In addition he will continue his Lasix 40 mg p.o. twice daily and we will prescribe him metolazone 2.5 mg p.o. every Tuesday to assist with diuresis going forward. 2. Hyperlipidemia: His LDL and HDL cholesterol are at goal. His HDL is 42 and his LDL is 64. Continue Lipitor. 3. Return office in 6 months. This note was generated using a voice recognition system and there may be incorrect words, spelling or punctuation that were not noted when reviewing the office note prior to saving. Coding Level of Care Code Off vis,est,level 3 Diagnoses Ischemic cardiomyopathy I25.5 Coding Level of Care Code Off vis,est,level 3 Diagnoses Ischemic cardiomyopathy I25.5 06/13/17 1450 <Electronically signed by Robert Li MD> Date Robert Li MD Cosigner Signature: Date (if applicable) CC: Tio Parker ALLERGIES ALLERGIES DATE TYPE / CODE NAME / CODE REACTION SEVERITY SOURCE 11/10/2017 Drug adhesive Rash Unknown [facility] Allergy/416 tape/[id number] [facility] [id number](SNOM (RXNORM) Repository ED CT) ENCOUNTERS ENCOUNTERS ADMIT/DISCHARGE ACCOUNT NUMBER ADMITTING ENCOUNTER LOCATION SOURCE CLASS 01/22/2018/01/26/20 [id number] [facility], Inpatient Aníbal Aníbal 18 Ghasem Encounter [facility] ding:PCURoom Repository : [id number]: 1 01/22/2018 [id number] [place], Ambulatory BMSBuilding: Aníbal Ghasem BMS.[facility] Repository 01/22/2018 [id number] [facility], Ambulatory BMSBuilding: Aníbal Ghasem BMS.CF.[facility] Repository 01/22/2018 [id number] [facility], Ambulatory BMSBuilding: Aníbal Ghasem BMS.[facility] Repository 01/22/2018 [id number] [place], Ambulatory BMSBuilding: [place] Ghasem BMS.CF.[facility] Repository 01/22/2018 [id number] [facility], Ambulatory BMSBuilding: Aníbal Ghasem BMS.[facility] Repository 01/22/2018 [id number] [place], Ambulatory BMSBuilding: Aníbal Ghasem BMS..[facility] Repository 01/22/2018 [id number] Ambulatory BMSBuilding: [place] [facility] Repository 01/22/2018/01/26/20 [id number] Ambulatory BMSBuilding: [place] 18 [facility] Repository 01/22/2018 [id number] [place], Ambulatory BMSBuilding: [place] Ghasem BMS.[facility] Repository 01/22/2018 [id number] Emergency [address] [place] [address] EDRoom: System [id number]: Repository [id number] 01/06/2018 [id number] Ambulatory BMSBuilding: [place] BMS.[facility] Repository 12/12/2017/01/12/20 [id number] Koram, Gina Inpatient [place] 18 [facility] ding:PCURoom Repository : [id number]: 1 12/12/2017 [id number] Koram, Gina Ambulatory BMSBuilding: Aníbal Charito BMS.[facility] Repository 12/12/2017 [id number] Koram, Gina Ambulatory BMSBuilding: [place] Charito BMS..[facility] Repository 12/12/2017 [id number] Koram, Gina Ambulatory BMSBuilding: Aníbal Charito BMS.[facility] Repository 12/12/2017 [id number] Koram, Gina Ambulatory BMSBuilding: Aníbal Charito BMS..[facility] Repository 12/12/2017 [id number] Koram, Gina Ambulatory BMSBuilding: Aníbal Charito BMS.[facility] Repository 12/12/2017 [id number] Koram, Gina Ambulatory BMSBuilding: Aníbal Charito BMS.[facility] Repository 12/12/2017 [id number] Koram, Gina Ambulatory BMSBuilding: [place] Charito BMS..[facility] Repository 12/12/2017 [id number] Koram, Gina Ambulatory BMSBuilding: [place] Charito BMS.[facility] Repository 12/12/2017 [id number] Koram, Gina Ambulatory BMSBuilding: [place] Charito BMS.[facility] Repository 12/12/2017 [id number] Koram, Gina Ambulatory BMSBuilding: [place] Charito BMS..[facility] Repository 12/12/2017 [id number] Koram, Gina Ambulatory BMSBuilding: [place] Charito BMS.[facility] Repository 12/12/2017 [id number] Koram, Gina Ambulatory BMSBuilding: Aníbal Charito BMS..[facility] Repository 12/12/2017 [id number] Koram, Gina Ambulatory BMSBuilding: Aníbal Charito BMS.[facility] Repository 12/12/2017 [id number] Koram, Gina Ambulatory BMSBuilding: Aníbal Charito BMS..[facility] Repository 12/12/2017 [id number] Koram, Gina Ambulatory BMSBuilding: Aníbal Charito BMS..[facility] Repository 12/12/2017 [id number] Koram, Gina Ambulatory BMSBuilding: Aníbal Charito BMS..[facility] Repository 12/12/2017 [id number] Koram, Gina Ambulatory BMSBuilding: [place] Charito BMS.[facility] Repository 12/12/2017 [id number] Koram, Gina Ambulatory BMSBuilding: [place] Charito BMS..[facility] Repository 12/12/2017 [id number] Koram, Gina Ambulatory BMSBuilding: Aníbal Charito BMS.[facility] Repository 12/12/2017 [id number] Koram, Gina Ambulatory BMSBuilding: Aníbal Charito BMS..[facility] Repository 12/12/2017 [id number] Koram, Gina Ambulatory BMSBuilding: [place] Charito BMS.[facility] Repository 12/12/2017 [id number] Koram, Gina Ambulatory BMSBuilding: [place] Charito BMS..[facility] Repository 12/12/2017 [id number] Koram, Gina Ambulatory BMSBuilding: Aníbal Charito BMS.[facility] Repository 12/12/2017 [id number] Koram, Gina Ambulatory BMSBuilding: Aníbal Charito BMS..[facility] Repository 12/12/2017 [id number] Koram, Gina Ambulatory BMSBuilding: [place] Charito BMS.[facility] Repository 12/12/2017 [id number] Koram, Gina Ambulatory BMSBuilding: [place] Charito BMS.[facility] Repository 12/12/2017 [id number] Koram, Gina Ambulatory BMSBuilding: [place] Charito BMS.[facility] Repository 12/12/2017 [id number] Koram, Gina Ambulatory BMSBuilding: [place] Charito BMS.[facility] Repository 12/12/2017 [id number] Koram, Gina Ambulatory BMSBuilding: Aníbal Charito BMS.[facility] Repository 12/12/2017 [id number] Koram, Gina Ambulatory BMSBuilding: Aníbal Charito BMS.[facility] Repository 12/12/2017 [id number] Koram, Gina Ambulatory BMSBuilding: [place] Charito BMS..[facility] Repository 12/12/2017 [id number] Koram, Gina Ambulatory BMSBuilding: Aníbal Charito BMS.[facility] Repository 12/12/2017 [id number] Koram, Gina Ambulatory BMSBuilding: [place] Charito BMS..[facility] Repository 12/12/2017 [id number] Koram, Gina Ambulatory BMSBuilding: [place] Charito BMS.[facility] Repository 12/12/2017 [id number] Koram, Gina Ambulatory BMSBuilding: Aníbal Charito BMS.CF.[facility] Repository 12/12/2017 [id number] Koram, Gina Ambulatory BMSBuilding: Aníbal Charito BMS.[facility] Repository 12/12/2017 [id number] Koram, Gina Ambulatory BMSBuilding: Aníbal Charito BMS.[facility] Repository 12/12/2017 [id number] Koram, Gina Ambulatory BMSBuilding: Aníbal Charito BMS.[facility] Repository 12/12/2017 [id number] Koram, Gina Ambulatory BMSBuilding: [place] Charito BMS..[facility] Repository 12/12/2017 [id number] Koram, Gina Ambulatory BMSBuilding: [place] Charito BMS.[facility] Repository 12/12/2017 [id number] Koram, Gina Ambulatory BMSBuilding: [place] Charito BMS..[facility] Repository 12/12/2017 [id number] Koram, Gina Ambulatory BMSBuilding: [place] Charito BMS..[facility] Repository 12/12/2017 [id number] Koram, Gina Ambulatory BMSBuilding: [place] Charito BMS.[facility] Repository 12/12/2017 [id number] Koram, Gina Ambulatory BMSBuilding: [place] Charito BMS.[facility] Repository 12/12/2017 [id number] Koram, Gina Ambulatory BMSBuilding: [place] Charito BMS.[facility] Repository 12/12/2017 [id number] Koram, Gina Ambulatory BMSBuilding: Aníbal Charito BMS.[facility] Repository 12/12/2017 [id number] Koram, Gina Ambulatory BMSBuilding: Aníbal Charito BMS..[facility] Repository 12/12/2017 [id number] Koram, Gina Ambulatory BMSBuilding: [place] Char[place] BMS.[facility] Repository 12/12/2017 [id number] Koram, Gina Ambulatory BMSBuilding: Aníbal Charito BMS..[facility] Repository 12/12/2017 [id number] Koram, Gina Ambulatory BMSBuilding: [place] Charito BMS..[facility] Repository 12/12/2017 [id number] Koram, Gina Ambulatory BMSBuilding: [place] Charito BMS.[facility] Repository 12/12/2017 [id number] Koram, Gina Ambulatory BMSBuilding: Aníbal Charito BMS..[facility] Repository 12/12/2017 [id number] Koram, Gina Ambulatory BMSBuilding: Aníbal Charito BMS.[facility] Repository 12/12/2017 [id number] Koram, Gina Ambulatory BMSBuilding: Aníbal Charito BMS.CF.[facility] Repository 12/12/2017 [id number] Koram, Gina Ambulatory BMSBuilding: Aníbal Charito BMS.[facility] Repository 12/12/2017 [id number] Koram, Gina Ambulatory BMSBuilding: [place] Charito BMS..[facility] Repository 12/12/2017 [id number] Koram, Gina Ambulatory BMSBuilding: [place] Charito BMS.[facility] Repository 12/12/2017 [id number] Koram, Gina Ambulatory BMSBuilding: Aníbal Charito BMS..[facility] Repository 12/12/2017 [id number] Koram, Gina Ambulatory BMSBuilding: [place] Charito BMS..[facility] Repository 12/12/2017 [id number] Koram, Gina Ambulatory BMSBuilding: [place] Charito BMS.[facility] Repository 12/12/2017 [id number] Koram, Gina Ambulatory BMSBuilding: Aníbal Charito BMS..[facility] Repository 12/12/2017 [id number] Koram, Gina Ambulatory BMSBuilding: Aníbal Charito BMS..[facility] Repository 12/12/2017 [id number] Koram, Gian Ambulatory BMSBuilding: [place] Char[place] BMS.[facility] Repository 12/12/2017 [id number] Koram, Gina Ambulatory BMSBuilding: Aníbal Charito BMS.[facility] Repository 12/12/2017 [id number] Koram, Gina Ambulatory BMSBuilding: [place] Charito BMS.[facility] Repository 12/12/2017 [id number] Koram, Gina Ambulatory BMSBuilding: [place] Charito BMS.[facility] Repository 12/12/2017 [id number] Koram, Gina Ambulatory BMSBuilding: Aníbal Charito BMS.[facility] Repository 12/12/2017 [id number] Koram, Gina Ambulatory BMSBuilding: [place] Charito BMS..[facility] Repository 12/12/2017 [id number] Koram, Gina Ambulatory BMSBuilding: [place] Charito BMS.[facility] Repository 12/12/2017 [id number] Koram, Gina Ambulatory BMSBuilding: Aníbal Charito BMS.CF.[facility] Repository 12/12/2017 [id number] Koram, Gina Ambulatory BMSBuilding: [place] Charito BMS.CF.[facility] Repository 12/12/2017 [id number] Koram, Gina Ambulatory BMSBuilding: Aníbal Charito BMS.[facility] Repository 12/12/2017 [id number] Koram, Gina Ambulatory BMSBuilding: Aníbal Charito BMS.[facility] Repository 12/12/2017 [id number] Koram, Gina Ambulatory BMSBuilding: Aníbal Charito BMS.CF.[facility] Repository 12/12/2017 [id number] Koram, Gina Ambulatory BMSBuilding: Aníbal Charito BMS.[facility] Repository 12/12/2017 [id number] Koram, Gina Ambulatory BMSBuilding: Aníbal Charito BMS.CF.[facility] Repository 12/12/2017 [id number] Koram, Gnia Ambulatory BMSBuilding: Aníbal Charito BMS.CF.[facility] Repository 12/12/2017 [id number] Koram, Gina Ambulatory BMSBuilding: [place] Charito BMS.[facility] Repository 12/12/2017 [id number] Koram, Gina Ambulatory BMSBuilding: Aníbal Charito BMS.[facility] Repository 12/12/2017 [id number] Koram, Gina Ambulatory BMSBuilding: [place] Charito BMS.CF.[facility] Repository 12/12/2017/01/12/20 [id number] Ambulatory BMSBuilding: Aníbal 18 [facility] Repository 12/12/2017/01/12/20 [id number] Ambulatory BMSBuilding: [address] Repository 11/17/2017 [id number] Ambulatory [facility] Hospital ding:[facility] Repository 11/10/2017/11/11/19 [id number] Ambulatory BMSBuilding: [place] 18 BMS.[facility] Repository 11/10/2017 [id number] Ambulatory BMSBuilding: [place] BMS.[facility] Repository 11/01/2017 [id number] Ambulatory BMSBuilding: Aníbal BMS.[facility] Repository 10/20/2017/10/21/19 [id number] Ambulatory BMSBuilding: Aníbal 18 BMS.[facility] Repository 08/04/2017/08/05/19 [id number] Ambulatory BMSBuilding: Aníbal 18 BMS.[facility] Repository 07/27/2017/07/28/19 [id number] Ambulatory BMSBuilding: Aníbal 18 BMS.[facility] Repository 07/20/2017 [id number] [facility]ulatory [facility] Repository 06/28/2017/07/05/19 [id number] Ambulatory BMSBuilding: [place] 18 [facility] Repository 06/20/2017/07/05/19 [id number] Moris, Inpatient Aníbal Aníbal 18 [facility] ding:PCURoom Repository : [id number]: 1 06/20/2017 [id number] Moris, Ambulatory BMSBuilding: [place] Juan Manuel BMS.[facility] Repository 06/20/2017 [id number] Moris, Ambulatory BMSBuilding: [place] Juan Manuel BMS.[facility] Repository 06/20/2017 [id number] Moris Ambulatory BMSBuilding: [place] Juan Manuel BMS.CF.[facility] Repository 06/20/2017 [id number] Moris, Ambulatory BMSBuilding: Aníbal Juan Manuel BMS.[facility] Repository 06/20/2017 [id number] Moris, Ambulatory BMSBuilding: Aníbal Juan Manuel BMS.[facility] Repository 06/20/2017 [id number] Moris, Ambulatory BMSBuilding: [place] Juan Manuel BMS.CF.[facility] Repository 06/20/2017 [id number] Moris, Ambulatory BMSBuilding: Aníbal Juan Manuel BMS.CF.[facility] Repository 06/20/2017 [id number] Moris, Ambulatory BMSBuilding: Aníbal Juan Manuel BMS.[facility] Repository 06/20/2017 [id number] Moris, Ambulatory BMSBuilding: Aníbal Juan Manuel BMS.[facility] Repository 06/20/2017 [id number] Moris, Ambulatory BMSBuilding: Aníbal Juan Manuel BMS.CF.[facility] Repository 06/20/2017 [id number] Moris, Ambulatory BMSBuilding: Aníbal Juan Manuel BMS.[facility] Repository 06/20/2017 [id number] Moris, Ambulatory BMSBuilding: Aníbal Juan Manuel BMS.CF.[facility] Repository 06/20/2017 [id number] Moris, Ambulatory BMSBuilding: Aníbal Juan Manuel BMS.CF.[facility] Repository 06/20/2017 [id number] Moris, Ambulatory BMSBuilding: Aníbal Juan Manuel BMS.CF.[facility] Repository 06/20/2017 [id number] Moris, Ambulatory BMSBuilding: [place] Juan Manuel BMS.[facility] Repository 06/20/2017 [id number] Moris, Ambulatory BMSBuilding: Aníbal Juan Manuel BMS.CF.[facility] Repository 06/20/2017 [id number] Moris, Ambulatory BMSBuilding: Aníbal Juan Manuel BMS.[facility] Repository 06/20/2017 [id number] Moris, Ambulatory BMSBuilding: Aníbal Juan Manuel BMS..[facility] Repository 06/20/2017 [id number] Moris, Ambulatory BMSBuilding: [place] Juan Manuel BMS..[facility] Repository 06/20/2017 [id number] Moris, Ambulatory BMSBuilding: [place] Juan Manuel BMS.[facility] Repository 06/20/2017 [id number] Moris, Ambulatory BMSBuilding: [place] Juan Manuel BMS..[facility] Repository 06/20/2017 [id number] Moris, Ambulatory BMSBuilding: [place] Juan Manuel BMS.CF.[facility] Repository 06/20/2017 [id number] Moris, Ambulatory BMSBuilding: [place] Juan Manuel BMS.[facility] Repository 06/20/2017 [id number] Moris, Ambulatory BMSBuilding: Aníbal Juan Manuel BMS.CF.[facility] Repository 06/20/2017 [id number] Jopperi, Ambulatory BMSBuilding: Aníbal Juan Manuel BMS.[facility] Repository 06/20/2017 [id number] Magalieeri, Ambulatory BMSBuilding: Aníbal Juan Manuel BMS.CF.[facility] Repository 06/20/2017 [id number] Magalieeri, Ambulatory BMSBuilding: [place] Juan Manuel BMS.CF.[facility] Repository 06/20/2017 [id number] Magalieeri, Ambulatory BMSBuilding: Aníbal Juan Manule BMS.CF.[facility] Repository 06/20/2017 [id number] Magalieeri, Ambulatory BMSBuilding: [place] Juan Manuel BMS.CF.[facility] Repository 06/20/2017 [id number] Magalieeri, Ambulatory BMSBuilding: [place] Juan Manuel BMS.CF.[facility] Repository 06/20/2017 [id number] Magalieeri, Ambulatory BMSBuilding: Aníbal Juan Manuel BMS.[facility] Repository 06/20/2017/07/05/19 [id number] Ambulatory BMSBuilding: Aníbal 18 [facility] Repository 06/20/2017/07/05/19 [id number] Ambulatory BMSBuilding: [address] Repository 06/20/2017/07/05/19 [id number] Ambulatory BMSBuilding: [address] Repository 06/20/2017/07/05/19 [id number] Ambulatory BMSBuilding: [address] Repository 06/20/2017/07/05/19 [id number] Ambulatory BMSBuilding: [address] Repository 06/13/2017/06/14/19 [id number] Ambulatory BMSBuilding: [place] 18 BMS.[facility] Repository 06/10/2017 [id number] Ambulatory BMSBuilding: Aníbal BMS.[facility] Repository PAYERS PAYERS ENCOUNTER GUARANTOR PAYER SUBSCRIBER SOURCE 01/22/2018 MANGO ALVES S Insurance:YARITZA ADLER: [facility] MEDICARE SENIOR [id number] Number: Repository [id number]: (330) [id number] [phone] (HP) Date:5895-32-10CB [address] [place] [address] 51901IF: 01/22/2018 Secondary MANGO L [place] Insurance:[facility] RIGBACHDOB: [facility] [id number] Hospital Number: Repository [id number] Date:0566-19-78JL [address] [address]AQ: 01/22/2018 Tertiary NOT GIVENUNK Aníbal Insurance:SELF PAY [facility] Number: Effective Repository Date:2018-01-22 01/22/2018 MANGO L Primary MANGO L [place] [id number] S Insurance:ANTHEM RIGGENBACHDOB: Community [address] MEDICARE [facility] [id number] ADVANTAPolicy Number: Repository [id number]: (330 [id number] [phone] (HP) Date:[id number] [address]UR: 01/22/2018 Secondary MANGO L Aníbal Insurance:[facility] PUN[facility] GORDADANIELAB: [facility] [id number] Hospital Number: Repository [id number] Date:[id number] [address]ZS: 01/22/2018 Tertiary NOT GIVENUNK Aníbal Insurance:SELF PAY [facility] Number: Effective Repository Date:2018-01-22 01/22/2018 MANGO L Primary MANGO L [place] [id number] S Insurance:ANTHEM RIGGENBACHDOB: Community [address] MEDICARE [facility] [id number] ADVANTAPolicy Number: Repository [id number]: (330) [id number] [phone] (HP) Date:8917-44-36YD [address] [address]SE: 01/22/2018 Secondary MANGO L [place] Insurance:[facility] RIGGENBACHDOB: [facility] [id number] Hospital Number: Repository [id number] Date:3513-00-75JW [address] [address]UY: 01/22/2018 Tertiary NOT GIVENUNK Aníbal Insurance:SELF PAY [facility] Number: Effective Repository Date:2018-01-22 01/22/2018 MANGO L Primary MANGO L Aníbal [id number] S Insurance:ANTHEM WILLIAMDOB: Community [address] MEDICARE [facility] [id number] ADVANTAPolicy Number: Repository [id number]: 330 [id number] [phone] () Date:7783-80-79JJ [address] [place] [address] 99[address]KA: 01/22/2018 Secondary MANGO L Aníbal Insurance:[facility] PUN[facility] GORDAFRANTZB: [facility] [id number] Hospital Number: Repository [id number] Date:[id number] [address]TN: 01/22/2018 Tertiary NOT GIVENUNK [place] Insurance:SELF PAY [facility] Number: Effective Repository Date:2018-01-22 01/22/2018 MANGO L Primary MANGO L [place] [id number] S Insurance:YARITZA SIDHUB: [facility] MEDICARE SENIOR [id number] ADVANTAPolicy Number: Repository [id number]: 330 [id number] [phone] (HP) Date:7324-14-72PI [address] [address]LZ: 01/22/2018 Secondary MANGO L Aníbal Insurance:[facility]UN[facility] GORDASAMANTHAB: [facility] [id number] Hospital Number: Repository [id number] Date:6636-83-90HC [address] [address]QR: 01/22/2018 Tertiary NOT GIVENUNK Aníbal Insurance:SELF PAY Community [employer] Hospital Number: Effective Repository Date:2018-01-22 01/22/2018 MANGO L Primary MANGO Spangler [id number] S Insurance:ANTHRANCHO SIDHUB: Community [address] MEDICARE [facility] [id number] ADVANTAPolicy Number: Repository [id number]: 330 [id number] [phone] () Date:7824-93-38OI [address] [place] [address] 245[address]CV: 01/22/2018 Secondary MANGO L Aníbal Insurance:[facility] RIGBACHDOB: [facility] [id number] Hospital Number: Repository [id number] Date:6178-81-73FO [address] [address]GT: 01/22/2018 Tertiary NOT GIVENUNK [place] Insurance:SELF PAY [facility] Number: Effective Repository Date:2018-01-22 01/22/2018 MANGO L Primary MANGO L [place] [id number] S Insurance:ANTHEM WILLIAMDOB: Community [address] MEDICARE [facility] [id number] ADVANTAPolicy Number: Repository [id number]: 330 [id number] [phone] () Date:6719-57-16KX [address] [address]QA: 01/22/2018 Secondary MANGO L Aníbal Insurance:[facility] RIGSAMANTHADOB: [facility] [id number] Hospital Number: Repository [id number] Date:2349-89-82WP [address] [address]RG: 01/22/2018 Tertiary NOT GIVENUNK [place] Insurance:SELF PAY [facility] Number: Effective Repository Date:2018-01-22 01/22/2018 MANGO L Primary MANGO L Aníbal [id number] S Insurance:ANTHEM RIGSAMANTHADOB: Community [employer] [employer] MEDICARE [facility] [id number] ADVANTAPolicy Number: Repository [id number]: (330 [id number] [phone] (HP) Date:6008-58-16SX [address] [place] [address] 01812JZ: 01/22/2018 Secondary MANGO L [place] Insurance:[facility]: [facility] [id number] Hospital Number: Repository [id number] Date:1774-45-23OQ [address] [address]DM: 01/22/2018 Tertiary NOT GIVENUNK Aníbal Insurance:SELF PAY [facility] Number: Effective Repository Date:2018-01-22 01/22/2018 MANGO L Primary MANGO L Aníbal [id number] S Insurance:ANTHEM RIGBACHDOB: Community [address] MEDICARE SENIOR [id number] ADVANTAPolicy Number: Repository [id number]: (330 [id number] [phone] (HP) Date:3425-75-98HK [address] [place] [address] 46269YK: 01/22/2018 Secondary MANGO L Aníbal Insurance:[facility] PUNTA GORDABACHB: [facility] [id number] Hospital Number: Repository [id number] Date:3712-61-87ET[address] [address]GJ: 01/22/2018 Tertiary NOT GIVENUNK Aníbal Insurance:SELF PAY [facility] Number: Effective Repository Date:2018-01-22 01/22/2018 MANGO L Primary MANGO L [place] [id number] S Insurance:ANTHEM RIGBACHDOB: Community [address] MEDICARE [facility] [id number] ADVANTAPolicy Number: Repository [id number]: (330 [id number] [phone] (HP) Date:5231-65-56QD [address] [address]HX: 01/22/2018 Secondary MANGO L [place] Insurance:[facility] RIGGENBACHDOB: [facility] [id number] Hospital Number: Repository [id number] Date:4828-01-21IE[address] [address]YT: 01/22/2018 Tertiary NOT GIVENUNK [place] Insurance:SELF PAY [facility] Number: Effective Repository Date:2018-01-22 01/22/2018 Alejo Primary Alejo [facility] RiggenbachDOB: Insurance:[employer] RiggenbachDOB: [employer] [id number] Repository Market [facility] Number: [address] [place] Effective Date: 95974Lgn: (HP) 01/06/2018 ALEJO L Primary ALEJO L [place] [id number] S Insurance:MEDICARE RIGGENBACHDOB: [address] PART A BPolicy [id number] Hospital [address] Number: Repository [id number]: (346) [id number] [phone] (HP) Date:2017-06-13 01/06/2018 Secondary ALEJO L [place] Insurance:MEDICAIDPol RIGGENBACHDOB: [facility] Number: [id number] Hospital [id number] Repository Date:2017-06-13 01/06/2018 Tertiary NOT GIVENUNK Aníbal Insurance:SELF PAY [facility] Number: Effective Repository Date:2017-06-13 12/12/2017 MANGO L Primary MANGO L [place] [id number] S Insurance:ANTHEM RIGGENBACHDOB: Community [address] MEDICARE SENIOR [id number] Hospital [address] ADVANTAPolicy Number: Repository [id number]: (376) [id number] [phone] (HP) Date:1993-29-38CM[address] 26847QK: 12/12/2017 Secondary MANGO L [place] Insurance:[facility] RIGGENBACHDOB: [facility] [id number] Hospital Number: Repository [id number] Date:8125-87-05FB [address] [address]YH: 12/12/2017 Tertiary NOT GIVENUNK Aníbal Insurance:SELF PAY [facility] Number: Effective Repository Date:2017-12-12 12/12/2017 MANGO Genao Primary MANGO Spangler [id number] S Insurance:ANTHEM RIGBACHDOB: Community [address] MEDICARE [facility] [id number] ADVANTAPolicy Number: Repository [id number]: 330 [id number] [phone] () Date:9998-40-61GS [address] [place] [address] 21787VE: 12/12/2017 Secondary MANGO L [place] Insurance:[facility] RIGBACHDOB: [facility] [id number] Hospital Number: Repository [id number] Date:1418-48-53EB [address] 05[address]AP: 12/12/2017 Tertiary NOT GIVENUNK [place] Insurance:SELF PAY [facility] Number: Effective Repository Date:2017-12-12 12/12/2017 MANGO L Primary MANGO Spangler [id number] S Insurance:ANTHEM RIGSAMANTHADOB: Community [address] MEDICARE SENIOR [id number] ADVANTAPolicy Number: Repository [id number]: 330 [id number] [phone] (HP) Date:8885-52-54KL [address] [address]HG: 12/12/2017 Secondary MANGO L Aníbal Insurance:[facility] RIGBACHDOB: [facility] [id number] Hospital Number: Repository [id number] Date:4037-20-13XL [address] 763[address]NQ: 12/12/2017 Tertiary NOT GIVENUNK Aníbal Insurance:SELF PAY [facility] Number: Effective Repository Date:2017-12-12 12/12/2017 MANGO L Primary MANGO Spangler [id number] S Insurance:ANTHEM RIGSAMANTHADOB: Community [address] MEDICARE [facility] [id number] ADVANTAPolicy Number: Repository [id number]: (330 [id number] [phone] () Date:4780-86-77HK[address] [address]92[address]DF: 12/12/2017 Secondary MANGO L [place] Insurance:[facility] RIGBACHDOB: [facility] [id number] Hospital Number: Repository [id number] Date:5922-46-47TI[address] [address]YP: 12/12/2017 Tertiary NOT GIVENUNK [place] Insurance:SELF PAY [facility] Number: Effective Repository Date:2017-12-12 12/12/2017 MANGO L Primary MANGO Spangler [id number] S Insurance:ANTHEM RIGSAMANTHADOB: Community [address] MEDICARE [facility] [id number] ADVANTAPolicy Number: Repository [id number]: (330 [id number] [phone] () Date:3693-70-71MX[address] 413[address]LL: 12/12/2017 Secondary MANGO L [place] Insurance:[facility] RIGBACHDOB: [facility] [id number] Hospital Number: Repository [id number] Date:7613-25-94YL[address] [address]XH: 12/12/2017 Tertiary NOT GIVENUNK Aníbal Insurance:SELF PAY [facility] Number: Effective Repository Date:2017-12-12 12/12/2017 MANGO L Primary MANGO L [place] [id number] S Insurance:ANTHEM RIGSAMANTHADOB: Community [address] MEDICARE [facility] [id number] ADVANTAPolicy Number: Repository [id number]: (330 [id number] [phone] (HP) Date:6100-62-72CU [address] [place] [address] 35059LU: 12/12/2017 Secondary MANGO L Aníbal Insurance:[facility] RIGSAMANTHADOB: [facility] [id number] Hospital Number: Repository [id number] Date:2704-50-20XD[address] [address]59[address]JD: 12/12/2017 Tertiary NOT GIVENUNK [place] Insurance:SELF PAY [facility] Number: Effective Repository Date:2017-12-12 12/12/2017 MANGO L Primary MANGO L Aníbal [id number] S Insurance:ANTHEM RIGBACHDOB: [address] MEDICARE [facility] [id number] ADVANTAPolicy Number: Repository [id number]: (330 [id number] [phone] (HP) Date:3787-08-53QY [address] [place] [address] 98344II: 12/12/2017 Secondary MANGO L Aníbal Insurance:[facility] NAHUMB: [facility] [id number] Hospital Number: Repository [id number] Date:9581-18-84RG[address] [address]AZ: 12/12/2017 Tertiary NOT GIVENUNK Aníbal Insurance:SELF PAY [facility] Number: Effective Repository Date:2017-12-12 12/12/2017 MANGO L Primary MANGO L Aníbal [id number] S Insurance:ANTHEM RIGBACHDOB: [address] MEDICARE [facility] [id number] ADVANTAPolicy Number: Repository [id number]: (330 [id number] [phone] (HP) Date:0078-11-73RE [address] [place] [address] 55106AA: 12/12/2017 Secondary MANGO L Aníbal Insurance:[facility] RIGGENBACHDOB: [facility] [id number] Hospital Number: Repository [id number] Date:1026-41-06IV [address] 20[address]YI: 12/12/2017 Tertiary NOT GIVENUNK Aníbal Insurance:SELF PAY [facility] Number: Effective Repository Date:2017-12-12 12/12/2017 MANGO L Primary MANGO L Aníbal [id number] S Insurance:YARITZA MCGARRYDOB: [address] MEDICARE SENIOR [id number] ADVANTAPolicy Number: Repository [id number]: 330 [id number] [phone] Date:9393-92-12DS [address] [place] [address] 40475MI: 12/12/2017 Secondary MANGO L [place] Insurance:[facility] RIGSAMANTHADOB: [facility] [id number] Hospital Number: Repository [id number] Date:0019-28-79EV [address] 499[address]CT: 12/12/2017 Tertiary NOT GIVENUNK Aníbal Insurance:SELF PAY [facility] Number: Effective Repository Date:2017-12-12 12/12/2017 MANGO L Primary MANGO L [place] [id number] S Insurance:YARITZA SIDHUB[facility] [id number] ADVANTAPolicy Number: Repository [id number]: 330 [id number] [phone] (HP) Date:4155-34-08PD [address] [place] [address] 45477BP: 12/12/2017 Secondary MANGO L Aníbal Insurance:[facility] RIGBACHDOB: [facility] [id number] Hospital Number: Repository [id number] Date:3401-89-99RF [address] 438[address]FH: 12/12/2017 Tertiary NOT GIVENUNK Aníbal Insurance:SELF PAY [facility] Number: Effective Repository Date:2017-12-12 12/12/2017 MANGO L Primary MANGO Spangler [id number] S Insurance:ANTHEM NAHUMB: [address] MEDICARE [facility] [id number] ADVANTAPolicy Number: Repository 13923Efs: 330 [id number] [phone] () Date:8799-31-15MG[address] [address]PR: 12/12/2017 Secondary MANGO L Aníbal Insurance:[facility] RIGBACHDOB: [facility] [id number] Hospital Number: Repository [id number] Date:2471-04-72VP [address] 389[address]ON: 12/12/2017 Tertiary NOT GIVENUNK [place] Insurance:SELF PAY [facility] Number: Effective Repository Date:2017-12-12 12/12/2017 MANGO L Primary MANGO L Aníbal [id number] S Insurance:ANTHEM WILLIAMDOB: [address] MEDICARE SENIOR [id number] ADVANTAPolicy Number: Repository [id number]: 330 [id number] [phone] () Date:3669-11-24AP[address] 20[address]TY: 12/12/2017 Secondary MANGO L [place] Insurance:[facility] RIGSAMANTHADOB: [facility] [id number] Hospital Number: Repository [id number] Date:3900-64-09AY [address] 04181VF: 12/12/2017 Tertiary NOT GIVENUNK Aníbal Insurance:SELF PAY [facility] Number: Effective Repository Date:2017-12-12 12/12/2017 MANGO L Primary MANGO L [place] [id number] S Insurance:ANTHEM RIGSAMANTHADOB: [address] MEDICARE SENIOR [id number] ADVANTAPolicy Number: Repository [id number]: (330 [id number] [phone] (HP) Date:0655-59-79OX [address] [place] [address] 72507FB: 12/12/2017 Secondary MANGO L Aníbal Insurance:[facility] RIGDIVYADOB: [facility] [id number] Hospital Number: Repository [id number] Date:6198-25-55EJ [address] 95284TH: 12/12/2017 Tertiary NOT GIVENUNK Aníbal Insurance:SELF PAY [facility] Number: Effective Repository Date:2017-12-12 12/12/2017 MANGO L Primary MANGO L Aníbal [id number] S Insurance:ANTHEM RIGBACHDOB: [address] MEDICARE [facility] [id number] [facility] Number: Repository 27544Izk: (330 [id number] [phone] (HP) Date:4532-19-17RI [address] 00[address]EM: 12/12/2017 Secondary MANGO L Aníbal Insurance:[facility] SHERIDANIELAB: [facility] [id number] Hospital Number: Repository [id number] Date:1860-61-44JF [address] 944[address]WK: 12/12/2017 Tertiary NOT GIVENUNK Aníbal Insurance:SELF PAY [facility] Number: Effective Repository Date:2017-12-12 12/12/2017 MANGO L Primary MANGO L Aníbal [id number] S Insurance:ANTHEM RIGGENBACHDOB: [address] MEDICARE [facility] [id number] [facility] Number: Repository [id number]: (330) [id number] [phone] ([phone] Date:3793-16-17TV [address] [place] [address] 98702VX: 12/12/2017 Secondary MANGO L Aníbal Insurance:[facility] RIGGENBACHDOB: [facility] [id number] Hospital Number: Repository [id number] Date:8411-61-73BT [address] 044[address]QE: 12/12/2017 Tertiary NOT GIVENUNK [place] Insurance:SELF PAY [facility] Number: Effective Repository Date:2017-12-12 12/12/2017 MANGO L Primary MANGO L Aníbal [id number] S Insurance:ANTHEM WILLIAMDOB: [address] MEDICARE [facility] [id number] ADVANTAPolicy Number: Repository [id number]: 330 [id number] [phone] () Date:2843-44-33PE[address] [address]YG: 12/12/2017 Secondary MANGO L [place] Insurance:[facility] PUNTA GORDAFRANTZB: [facility] [id number] Hospital Number: Repository [id number] Date:5143-83-16HW [address] [address]MT: 12/12/2017 Tertiary NOT GIVENUNK [place] Insurance:SELF PAY [facility] Number: Effective Repository Date:2017-12-12 12/12/2017 MANGO L Primary MANGO L Aníbal [id number] S Insurance:YARITZA SIDHUB: [facility] STAPT MEDICARE SENIOR [id number] ADVANTAPolicy Number: Repository [id number]: (330 [id number] [phone] (HP) Date:1965-84-17OQ[address] 69[address]PI: 12/12/2017 Secondary MANGO L Aníbal Insurance:[facility] PUNTA GORDASAMANTHADOB: [facility] [id number] Hospital Number: Repository [id number] Date:5300-27-37AU[address] 917[address]KH: 12/12/2017 Tertiary NOT GIVENUNK Aníbal Insurance:SELF PAY [facility] Number: Effective Repository Date:2017-12-12 12/12/2017 MANGO L Primary MANGO Spangler [id number] S Insurance:ANTHEM WILLIAMDOB: [address] MEDICARE [facility] [id number] ADVANTAPolicy Number: Repository [id number]: 330 [id number] [phone] () Date:2265-89-48VU [address] [place] [address] 40795CB: 12/12/2017 Secondary MANGO L [place] Insurance:[facility] RIGBACHDOB: [facility] [id number] Hospital Number: Repository [id number] Date:0742-17-62SJ [address] 96365CE: 12/12/2017 Tertiary NOT GIVENUNK [place] Insurance:SELF PAY [facility] Number: Effective Repository Date:2017-12-12 12/12/2017 MANGO L Primary MANGO L Aníbal [id number] S Insurance:ANTHEM WILLIAMDOB: [address] MEDICARE SENIOR [id number] ADVANTAPolic Number: Repository [id number]: 330 [id number] [phone] () Date:3567-36-12AJ[address] 79[address]AR: 12/12/2017 Secondary MANGO L [place] Insurance:[facility] RIGBACHDOB: [facility] [id number] Hospital Number: Repository [id number] Date:0743-61-98SC [address] 634[address]IX: 12/12/2017 Tertiary NOT GIVENUNK Aníbal Insurance:SELF PAY [facility] Number: Effective Repository Date:2017-12-12 12/12/2017 MANGO L Primary MANGO L [place] [id number] S Insurance:ANTHEM RIGBACHDOB: [address] MEDICARE [facility] [id number] ADVANTAPolicy Number: Repository [id number]: (330 [id number] [phone] (HP) Date:5310-28-47SM [address] [place] [address] [place] 684[address]JP: 12/12/2017 Secondary MANGO L [place] Insurance:[facility] PUNTA GORDASAMANTHADOB: [facility] [id number] Hospital Number: Repository [id number] Date:3102-67-04AO [address] 41766VZ: 12/12/2017 Tertiary NOT GIVENUNK Aníbal Insurance:SELF PAY [facility] Number: Effective Repository Date:2017-12-12 12/12/2017 MANGO L Primary MANGO L Aníbal [id number] S Insurance:ANTHEM RIGBACHDOB: [address] MEDICARE SENIOR [id number] ADVANTAPolicy Number: Repository [id number]: (330) [id number] [phone] (HP) Date:5101-26-29WQ [address] [place] [address] 32092EV: 12/12/2017 Secondary MANGO L Aníbal Insurance:[facility] PUN[facility] GORDASAMANTHAB: [facility] [id number] Hospital Number: Repository [id number] Date:2136-08-23LH[address] [address]BL: 12/12/2017 Tertiary NOT GIVENUNK [place] Insurance:SELF PAY [facility] Number: Effective Repository Date:2017-12-12 12/12/2017 MANGO L Primary MANGO L Aníbal [id number] S Insurance:ANTHEM RIGBACHDOB: [address] MEDICARE [facility] [id number] ADVANTAPolicy Number: Repository [id number]: (330 [id number] [phone] (HP) Date:3634-90-98EM [address] [place] [address]MG: 12/12/2017 Secondary MANGO L Aníbal Insurance:[facility] RIGBACHDOB: [facility] [id number] Hospital Number: Repository [id number] Date:7912-89-02LM [address] 468[address]UC: 12/12/2017 Tertiary NOT GIVENUNK [place] Insurance:SELF PAY [facility] Number: Effective Repository Date:2017-12-12 12/12/2017 MANGO L Primary MANGO L [place] [id number] S Insurance:ANTHEM RIGBACHDOB: [address] MEDICARE [facility] [id number] ADVANTAPolicy Number: Repository [id number]: 330 [id number] [phone] () Date:0338-70-29ES [address] 80[address]TX: 12/12/2017 Secondary MANGO L [place] Insurance:[facility] RIGBACHDOB: [facility] [id number] Hospital Number: Repository [id number] Date:5979-69-51TL [address] 090[address]OM: 12/12/2017 Tertiary NOT GIVENUNK [place] Insurance:SELF PAY [facility] Number: Effective Repository Date:2017-12-12 12/12/2017 MANGO L Primary MANGO L [place] [id number] S Insurance:ANTHEM RIGBACHDOB: [address] MEDICARE [facility] [id number] ADVANTAPolicy Number: Repository [id number]: 330 [id number] [phone] () Date:7237-91-28LO [address] [address]13[address]BN: 12/12/2017 Secondary MANGO L [place] Insurance:[facility] RIGBACHDOB: [facility] [id number] Hospital Number: Repository [id number] Date:7012-90-19ER [address] 587[address]YO: 12/12/2017 Tertiary NOT GIVENUNK Aníbal Insurance:SELF PAY [facility] Number: Effective Repository Date:2017-12-12 12/12/2017 MANGO L Primary MANGO Spangler [id number] S Insurance:ANTHEM NAHUMB: [address] MEDICARE [facility] [id number] ADVANTAPolicy Number: Repository [id number]: 330 [id number] [phone] () Date:1090-32-74HE [address] [place] [address] 93265OO: 12/12/2017 Secondary MANGO L [place] Insurance:[facility] RIGSAMANTHADOB: [facility] [id number] Hospital Number: Repository [id number] Date:4684-43-74LY [address] 16282UQ: 12/12/2017 Tertiary NOT GIVENUNK Aníbal Insurance:SELF PAY [facility] Number: Effective Repository Date:2017-12-12 12/12/2017 MANGO L Primary MANGO L Aníbal [id number] S Insurance:ANTHEM WILLIAMDOB: [address] MEDICARE [facility] [id number] ADVANTAPolicy Number: Repository [id number]: 330 [id number] [phone] () Date:2032-36-79PF[address] [address]EV: 12/12/2017 Secondary MANGO L [place] Insurance:[facility] RIGSAMANTHADOB: [facility] [id number] Hospital Number: Repository [id number] Date:0106-75-94VT [address] 24[address]CT: 12/12/2017 Tertiary NOT GIVENUNK Aníbal Insurance:SELF PAY [facility] Number: Effective Repository Date:2017-12-12 12/12/2017 MANGO L Primary MANGO L [place] [id number] S Insurance:ANTHEM RIGBACHDOB: [address] MEDICARE [facility] [id number] ADVANTAPolicy Number: Repository [id number]: (330 [id number] [phone] (HP) Date:8489-06-00UK [address] [place] [address] 63776IQ: 12/12/2017 Secondary MANGO L [place] [facility] [id number] Hospital Number: Repository [id number] Date:6440-02-33DU[address] [address]ZG: 12/12/2017 Tertiary NOT GIVENUNK [place] Insurance:SELF PAY [facility] Number: Effective Repository Date:2017-12-12 12/12/2017 MANGO L Primary MANGO L [place] [id number] S Insurance:ANTHEM RIGSAMANTHADOB: [facility] [employer] MEDICARE SENIOR [id number] ADVANTAPolicy Number: Repository [id number]: (330) [id number] [phone] (HP) Date:0125-14-58CE [address] [place] [address] 73837VP: 12/12/2017 Secondary MANGO L [place] Insurance:[facility]: [facility] [id number] Hospital Number: Repository [id number] Date:5878-68-33DV [address] 29707BX: 12/12/2017 Tertiary NOT GIVENUNK [place] Insurance:SELF PAY [facility] Number: Effective Repository Date:2017-12-12 12/12/2017 MANGO L Primary MANGO L [place] [id number] S Insurance:ANTHEM RIGBACHDOB: [facility] [address] MEDICARE [facility] [id number] ADVANTAPolicy Number: Repository [id number]: (330 [id number] [phone] (HP) Date:[id number] [address] [place] [address] 178[address]JP: 12/12/2017 Secondary MANGO L [place] Insurance:[facility] RIGGENBACHDOB: [facility] [id number] Hospital Number: Repository [id number] Date:[id number] [address] [address]OL: 12/12/2017 Tertiary NOT GIVENUNK [place] Insurance:SELF PAY [facility] Number: Effective Repository Date:2017-12-12 12/12/2017 MANGO L Primary MANGO L [place] [id number] S Insurance:ANTHEM RIGBACHDOB: Community [employer] [employer] [facility] [id number] ADVANTAPolicy Number: Repository [id number]: [id number] [phone] ([phone]) Date:[id number] [address]MN: 12/12/2017 Secondary MANGO L Aní[place] Insurance:[facility] RIGBACHDOB: [facility] [id number] Hospital Number: Repository [id number] Date:[id number] [address] [address]DO: 12/12/2017 Tertiary NOT GIVENUNK [place] Insurance:SELF PAY [facility] Number: Effective Repository Date:2017-12-12 12/12/2017 MANGO L Primary MANGO L [place] [id number] S Insurance:ANTHEM RIGBACHDOB: Community [address] MEDIC[employer] [facility] [id number] ADVANTAPolicy Number: Repository [id number]: 330 [id number] [phone] (HP) Date:0066-72-46AU[address] [address]PR: 12/12/2017 Secondary MANGO L Aníbal Insurance:[facility] RIGBACHDOB: [facility] [id number] Hospital Number: Repository [id number] Date:4684-45-76CK[address] [address]TJ: 12/12/2017 Tertiary NOT GIVENUNK [place] Insurance:SELF PAY [facility] Number: Effective Repository Date:2017-12-12 12/12/2017 MANGO L Primary MANGO L Aníbal [id number] S Insurance:YARITZA NAHUMB: Community [employer] SENIOR [id number] ADVANTAPolicy Number: Repository [id number]: 330 [id number] [phone] () Date:3073-42-60NZ [address] [place] [address] 60773WR: 12/12/2017 Secondary MANGO L [place] Insurance:[facility] RIGSAMANTHADOB: [facility] [id number] Hospital Number: Repository [id number] Date:7167-89-35CA [address] [address]PC: 12/12/2017 Tertiary NOT GIVENUNK [place] Insurance:SELF PAY [facility] Number: Effective Repository Date:2017-12-12 12/12/2017 MANGO L Primary MANGO L Aníbal [id number] S Insurance:YARITZA SIDHUB: Community [employer] SENIOR [id number] ADVANTAPolicy Number: Repository [id number]: 330 [id number] [phone] () Date:1978-21-87UQ [address] [place] [address] 94367XB: 12/12/2017 Secondary MANGO L Aníbal Insurance:[facility] RIGBACHDOB: [facility] [id number] Hospital Number: Repository [id number] Date:9998-60-90RI [address] [address]ZN: 12/12/2017 Tertiary NOT GIVENUNK [place] Insurance:SELF PAY [facility] Number: Effective Repository Date:2017-12-12 12/12/2017 MANGO L Primary MANGO L Aníbal [id number] S Insurance:ANTHEM RIGGENBACHDOB: Community [employer] [employer] MEDIC[employer] [facility] [id number] [employer]VANTAPolicy Number: Repository [id number]: (330 [id number] [phone] (HP) Date:1130-19-99YB [address] [place] [address] 11550PQ: 12/12/2017 Secondary MANGO L [place] [facility] [id number] Hospital Number: Repository [id number] Date:1482-79-81ZV [address] [place] [address] 23907DZ: 12/12/2017 Tertiary NOT GIVENUNK [place] Insurance:SELF PAY [facility] Number: Effective Repository Date:2017-12-12 12/12/2017 MANGO L Primary MANGO L [place] [id number] S Insurance:ANTHEM RIGBACHDOB: [facility] [employer] [facility] [id number] [employer]VANTAPolicy Number: Repository [id number]: (330) [id number] [phone] (HP) Date:1071-50-90LA [address] [place] [address] 68204JR: 12/12/2017 Secondary MANGO L Aníbal Insurance:[facility] PUNTA GORDABACHB: [facility] [id number] Hospital Number: Repository [id number] Date:5299-59-07YW[address] [address]NM: 12/12/2017 Tertiary NOT GIVENUNK [place] Insurance:SELF PAY [facility] Number: Effective Repository Date:2017-12-12 12/12/2017 MANGO L Primary MANGO L Aníbal [id number] S Insurance:ANTHEM RIGBACHDOB: Community [employer] [employer]IC[employer] [facility] [id number] ADVANTAPolicy Number: Repository [id number]: (330 [id number] [phone] (HP) Date:7973-71-03KI[address] 14995EQ: 12/12/2017 Secondary MANGO L Aníbal Insurance:[facility] RIGBACHDOB: [facility] [id number] Hospital Number: Repository [id number] Date:0457-24-35OY [address] 25482TZ: 12/12/2017 Tertiary NOT GIVENUNK Aníbal Insurance:SELF PAY [facility] Number: Effective Repository Date:2017-12-12 12/12/2017 MANGO L Primary MANGO L Aníbal [id number] S Insurance:ANTHEM RIGGENBACHDOB: Community [employer] [employer] MEDIC[employer] [facility] [id number] ADVANTAPolicy Number: Repository [id number]: 330 [id number] [phone] () Date:1381-24-65ZP [address] [address]EX: 12/12/2017 Secondary MANGO L [place] Insurance:[facility] RIGBACHDOB: [facility] [id number] Hospital Number: Repository [id number] Date:3177-58-69VF [address] [address]FJ: 12/12/2017 Tertiary NOT GIVENUNK [place] Insurance:SELF PAY [facility] Number: Effective Repository Date:2017-12-12 12/12/2017 MANGO L Primary MANGO L [place] [id number] S Insurance:ANTHEM RIGBACHDOB: Community [address] MEDIC[employer] [facility] [id number] ADVANTAPolicy Number: Repository [id number]: 330 [id number] [phone] (HP) Date:1617-54-12KO[address] 61997VR: 12/12/2017 Secondary MANGO L Aníbal Insurance:[facility] RIGBACHDOB: [facility] [id number] Hospital Number: Repository [id number] Date:4467-08-15BK [address] 308[address]WO: 12/12/2017 Tertiary NOT GIVENUNK [place] Insurance:SELF PAY [facility] Number: Effective Repository Date:2017-12-12 12/12/2017 MANGO Genao Primary MANGO [id number] S Insurance:ANTHEM RIGSAMANTHADOB: Community [employer] MEDIC[employer] [facility] [id number] ADVANTAPolicy Number: Repository [id number]: 330 [id number] [phone] () Date:0463-20-30TQ[address] [address]MI: 12/12/2017 Secondary MANGO L Aníbal Insurance:[facility] RIGBACHDOB: [facility] [id number] Hospital Number: Repository [id number] Date:4763-13-37EO [address] 509[address]MR: 12/12/2017 Tertiary NOT GIVENUNK Aníbal Insurance:SELF PAY [facility] Number: Effective Repository Date:2017-12-12 12/12/2017 MANGO L Primary MANGO [id number] S Insurance:ANTHEM RIGSAMANTHADOB: Community [employer] SENIOR [id number] ADVANTAPolicy Number: Repository [id number]: 330 [id number] [phone] () Date:6596-99-20XF [address] 65[address]EJ: 12/12/2017 Secondary MANGO L Aníbal Insurance:[facility] RIGGENBACHDOB: [facility] [id number] Hospital Number: Repository [id number] Date:0832-58-02YD [address] 910[address]UU: 12/12/2017 Tertiary NOT GIVENUNK Aníbal Insurance:SELF PAY [facility] Number: Effective Repository Date:2017-12-12 12/12/2017 MANGO L Primary MANGO L Aníbal [id number] S Insurance:ANTHEM RIGBACHDOB: Community [employer] [employer]IC[employer] [facility] [id number] ADVANTAPolicy Number: Repository [id number]: (330 [id number] [phone] () Date:9287-79-16QQ [address] [address]JF: 12/12/2017 Secondary MANGO L [place] Insurance:[facility]UN[facility] GORDABACHDOB: [facility] [id number] Hospital Number: Repository [id number] Date:1232-71-90NF[address] [address]OO: 12/12/2017 Tertiary NOT GIVENUNK [place] Insurance:SELF PAY [facility] Number: Effective Repository Date:2017-12-12 12/12/2017 MANGO L Primary MANGO L [place] [id number] S Insurance:ANTHEM RIGBACHDOB: Community [employer] SENIOR [id number] ADVANTAPolicy Number: Repository [id number]: (330) [id number] [phone] () Date:1130-57-19PF[address] [address]NW: 12/12/2017 Secondary MANGO L [place] Insurance:[facility] PUN[facility] GORDABACHDOB: [facility] [id number] Hospital Number: Repository [id number] Date:7405-78-75PG[address] [address]CW: 12/12/2017 Tertiary NOT GIVENUNK [place] Insurance:SELF PAY [facility] Number: Effective Repository Date:2017-12-12 12/12/2017 MANGO L Primary MANGO L [place] [id number] S Insurance:ANTHEM RIGBACHDOB: Community [employer] SENIOR [id number] ADVANTAPolicy Number: Repository [id number]: (330) [id number] [phone]) Date:3061-29-41LR [address] [place] [address] 50760SU: 12/12/2017 Secondary MANGO L Aníbal Insurance:[facility] RIGSAMANTHADOB: [facility] [id number] Hospital Number: Repository [id number] Date:0638-12-56VD [address] [address]UV: 12/12/2017 Tertiary NOT GIVENUNK [place] Insurance:SELF PAY [facility] Number: Effective Repository Date:2017-12-12 12/12/2017 MANGO L Primary MANGO L Aníbal [id number] S Insurance:ANTHEM RIGBACHDOB: Community [address] MEDIC[employer] [facility] [id number] ADVANTAPolicy Number: Repository [id number]: 330 [id number] [phone] (HP) Date:7735-43-08FP [address] 509[address]GW: 12/12/2017 Secondary MANGO L [place] Insurance:[facility] PUNTA GORDAFRANTZB: [facility] [id number] Hospital Number: Repository [id number] Date:7519-20-91UT [address] 10[address]UK: 12/12/2017 Tertiary NOT GIVENUNK Aníbal Insurance:SELF PAY [facility] Number: Effective Repository Date:2017-12-12 12/12/2017 MANGO L Primary MANGO L [place] [id number] S Insurance:ANTHEM RIGBACHDOB: Community [address] MEDIC[employer] [facility] [id number] ADVANTAPolicy Number: Repository [id number]: 330 [id number] [phone] () Date:0615-21-38MS [address]OVGDNX, [place] [address]FG: 12/12/2017 Secondary MANGO L Aníbal Insurance:[facility] RIGBACHDOB: [facility] [id number] Hospital Number: Repository [id number] Date:8469-43-84RH [address] 85[address]BH: 12/12/2017 Tertiary NOT GIVENUNK [place] Insurance:SELF PAY [facility] Number: Effective Repository Date:2017-12-12 12/12/2017 MANGO L Primary MANGO L Aníbal [id number] S Insurance:ANTHEM RIGSAMANTHADOB: Community [address] MEDIC[employer] [facility] [id number] ADVANTAPolicy Number: Repository [id number]: 330 [id number] [phone] () Date:0769-78-06ER [address] 03[address]CX: 12/12/2017 Secondary MANGO L Aníbal Insurance:[facility] RIGDIVYADOB: [facility] [id number] Hospital Number: Repository [id number] Date:3349-22-60WM [address] 529[address]EH: 12/12/2017 Tertiary NOT GIVENUNK Aníbal Insurance:SELF PAY [facility] Number: Effective Repository Date:2017-12-12 12/12/2017 MANGO L Primary MANGO L Aníbal [id number] S Insurance:ANTHRANCHO MCGARRYDOB: Community [facility] MEDIC[facility] SENIOR [id number] ADVANTAPolicy Number: Repository [id number]: 330 [id number] [phone] (HP) Date:5864-44-65ZS[address] [address]JG: 12/12/2017 Secondary MANGO L Aníbal Insurance:[facility] RIGBACHDOB: [facility] [id number] Hospital Number: Repository [id number] Date:1537-64-40PA [address] 74[address]RS: 12/12/2017 Tertiary NOT GIVENUNK Aníbal Insurance:SELF PAY [facility] Number: Effective Repository Date:2017-12-12 12/12/2017 MANGO L Primary MANGO L Aníbal [id number] S Insurance:ANTHEM NAHUMB: Community [address] MEDIC[employer] [facility] [id number] ADVANTAPolicy Number: Repository [id number]: 330 [id number] [phone] () Date:3532-99-30AM [address] [place] [address] 06781YD: 12/12/2017 Secondary MANGO L [place] Insurance:[facility] RIGBACHDOB: [facility] [id number] Hospital Number: Repository [id number] Date:9312-13-88QS[address] 78[address]UX: 12/12/2017 Tertiary NOT GIVENUNK Aníbal Insurance:SELF PAY [facility] Number: Effective Repository Date:2017-12-12 12/12/2017 MANGO L Primary MANGO L [place] [id number] S Insurance:ANTHEM WILLIAMDOB: Community [address]IC[employer] [facility] [id number] ADVANTAPolicy Number: Repository [id number]: 330 [id number] [phone] () Date:1853-44-52CX[address] 78[address]AA: 12/12/2017 Secondary MANGO L Aníbal Insurance:[facility] NAHUMB: [facility] [id number] Hospital Number: Repository [id number] Date:5609-18-37FA[address] 6[address]QV: 12/12/2017 Tertiary NOT GIVENUNK Aníbal Insurance:SELF PAY [facility] Number: Effective Repository Date:2017-12-12 12/12/2017 MANGO L Primary MANGO L Aníbal [id number] S Insurance:ANTHEM RIGSAMANTHADOB: Community [address]IC[employer] [facility] [id number] ADVANTAPolicy Number: Repository [id number]: 330) [id number] [phone]) Date:3054-83-76EC [address] [place] [address] 63856WF: 12/12/2017 Secondary MANGO L [place] Insurance:[facility] RIGBACHDOB: [facility] [id number] Hospital Number: Repository [id number] Date:9509-07-61HS [address] 90[address]BG: 12/12/2017 Tertiary NOT GIVENUNK [place] Insurance:SELF PAY [facility] Number: Effective Repository Date:2017-12-12 12/12/2017 MANGO L Primary MANGO L Aníbal [id number] S Insurance:ANTHEM RIGGENBACHDOB: Community [address]IC[employer] [facility] [id number] ADVANTAPoly Number: Repository [id number]: (330) [id number] [phone] (HP) Date:9351-57-29UU [address] 18[address]EU: 12/12/2017 Secondary MANGO L [place] Insurance:[facility] PUN[facility] GORDAFRANTZB: [facility] [id number] Hospital Number: Repository [id number] Date:4421-97-72ES[address] 139[address]UG: 12/12/2017 Tertiary NOT GIVENUNK Aníbal Insurance:SELF PAY [facility] Number: Effective Repository Date:2017-12-12 12/12/2017 MANGO L Primary MANGO L Aníbal [id number] S Insurance:ANTHEM RIGGENBACHDOB: Community [address]IC[employer] [facility] [id number] ADVANTAPolicy Number: Repository [id number]: (330) [id number] [phone] (HP) Date:9042-93-22EO[address] [address]58[address]KG: 12/12/2017 Secondary MANGO L Aníbal Insurance:[facility] RIGGENBACHDOB: [facility] [id number] Hospital Number: Repository [id number] Date:1887-43-32PL [address] 04[address]KZ: 12/12/2017 Tertiary NOT GIVENUNK [place] Insurance:SELF PAY [facility] Hospital Number: Effective Repository Date:2017-12-12 12/12/2017 MANGO L Primary MANGO L Aníbal [id number] S Insurance:ANTHEM NAHUMB: Community [address] MEDIC[employer] [facility] [id number] ADVANTAPolicy Number: Repository [id number]: 330 [id number] [phone] () Date:6406-09-35VM[address] 090[address]ZC: 12/12/2017 Secondary MANGO L [place] Insurance:[facility] PUN[facility] GORDAFRANTZB: [facility] [id number] Hospital Number: Repository [id number] Date:6114-69-94EV [address] 95[address]KL: 12/12/2017 Tertiary NOT GIVENUNK [place] Insurance:SELF PAY [facility] Hospital Number: Effective Repository Date:2017-12-12 12/12/2017 MANGO L Primary MANGO L Aníbal [id number] S Insurance:YARITZA SIDHUB: [facility] MEDICARE SENIOR [id number] ADVANTAPolicy Number: Repository [id number]: (330 [id number] [phone] () Date:0736-00-28HX[address] [address]VX: 12/12/2017 Secondary MANGO L Aníbal Insurance:[facility] RIGFRANTZB: [facility] [id number] Hospital Number: Repository [id number] Date:7882-05-83NE [address] 20839ZM: 12/12/2017 Tertiary NOT GIVENUNK Aníbal Insurance:SELF PAY [facility] Hospital Number: Effective Repository Date:2017-12-12 12/12/2017 MANGO L Primary MANGO Spangler [id number] S Insurance:ANTHEM NAHUMB: Community [address] SENIOR [id number] ADVANTAPolicy Number: Repository 78128Hzy: 330 [id number] [phone] (HP) Date:4339-16-59RT [address] 664[address]UR: 12/12/2017 Secondary MANGO L Aníbal Insurance:[facility] RIGBACHDOB: [facility] [id number] Hospital Number: Repository [id number] Date:7436-45-49IJ [address] 639[address]OC: 12/12/2017 Tertiary NOT GIVENUNK [place] Insurance:SELF PAY [facility] Number: Effective Repository Date:2017-12-12 12/12/2017 MANGO L Primary MANGO Lopezoster [id number] S Insurance:ANTHEM WILILAMDOB: Community [address] SENIOR [id number] ADVANTAPolicy Number: Repository 87347Ylb: 330 [id number] [phone] () Date:2585-07-78HC [address] 077[address]KG: 12/12/2017 Secondary MANGO L [place] Insurance:[facility] RIGSAMANTHADOB: [facility] [id number] Hospital Number: Repository [id number] Date:7333-93-47WG [address] 245[address]DJ: 12/12/2017 Tertiary NOT GIVENUNK Aníbal Insurance:SELF PAY [facility] Hospital Number: Effective Repository Date:2017-12-12 12/12/2017 MANGO L Primary MANGO Lopezoster [id number] S Insurance:ANTHEM WILLIAMDOB: Community [address] SENIOR [id number] ADVANTAPolicy Number: Repository [id number]: (330) [id number] [phone] (HP) Date:2759-31-45TA [address] [place] [address] 94513MU: 12/12/2017 Secondary MANGO L [place] Insurance:[facility] PUNTA GORDAFRANTZB: [facility] [id number] Hospital Number: Repository [id number] Date:2644-79-05GD[address] [address]JL: 12/12/2017 Tertiary NOT GIVENUNK [place] Insurance:SELF PAY [facility] Hospital Number: Effective Repository Date:2017-12-12 12/12/2017 MANGO L Primary MANGO L Aníbal [id number] S Insurance:ANTHEM RIGBACHDOB: Community [address] MEDIC[employer] [facility] [id number] ADVANTAPolicy Number: Repository [id number]: (330) [id number] [phone] (HP) Date:4191-92-70EZ [address] [place] [address] 80996MU: 12/12/2017 Secondary MANGO L [place] [facility] [id number] Hospital Number: Repository [id number] Date:3701-47-97HK[address] [address]BL: 12/12/2017 Tertiary NOT GIVENUNK [place] Insurance:SELF PAY [facility] Hospital Number: Effective Repository Date:2017-12-12 12/12/2017 MANGO L Primary MANGO L [place] [id number] S Insurance:ANTHEM RIGBACHDOB: Community [address] MEDIC[employer] [facility] [id number] ADVANTAPolicy Number: Repository [id number]: (330) [id number] [phone] (HP) Date:0411-09-52ME[address] 268[address]DL: 12/12/2017 Secondary MANGO L [place] Insurance:[facility] RIGSAMANTHADOB: [facility] [id number] Hospital Number: Repository [id number] Date:8549-15-54LH [address] 178[address]LX: 12/12/2017 Tertiary NOT GIVENUNK Aníbal Insurance:SELF PAY [facility] Hospital Number: Effective Repository Date:2017-12-12 12/12/2017 MANGO L Primary MANGO L Aníbal [id number] S Insurance:ANTHEM RIGSAMANTHADOB: Community [address] SENIOR [id number] ADVANTAPolicy Number: Repository [id number]: 330 [id number] [phone] () Date:2952-44-95WA [address] [place] [address] 08740VD: 12/12/2017 Secondary MANGO L Aníbal Insurance:[facility] PUNTA GORDAFRANTZB: [facility] [id number] Hospital Number: Repository [id number] Date:0107-62-86MU [address] 03400QJ: 12/12/2017 Tertiary NOT GIVENUNK Aníbal Insurance:SELF PAY [facility] Hospital Number: Effective Repository Date:2017-12-12 12/12/2017 MANGO L Primary MANGO L Aníbal [id number] S Insurance:ANTHEM WILLIAMDOB: [facility] [employer] [employer] SENIOR [id number] ADVANTAPolicy Number: Repository [id number]: 330 [id number] [phone] () Date:7322-75-24EM [address] [place] [address] 37782XP: 12/12/2017 Secondary MANGO L [place] Insurance:[facility] WILLIAMDOB: [facility] [id number] Hospital Number: Repository [id number] Date:3890-19-87HS [address] 74185ST: 12/12/2017 Tertiary NOT GIVENUNK [place] Insurance:SELF PAY [facility] Number: Effective Repository Date:2017-12-12 12/12/2017 MANGO L Primary MANGO Spangler [id number] S Insurance:ANTHEM RIGSAMANTHADOB: Community [address] MEDICARE [facility] [id number] ADVANTAPolicy Number: Repository 35102Miu: 330 [id number] [phone] () Date:9546-58-80VP [address] [place] [address] 21124HX: 12/12/2017 Secondary MANGO L Aníbal Insurance:[facility] RIGBACHDOB: [facility] [id number] Hospital Number: Repository [id number] Date:5541-83-49EB [address] [place] [address] 21124MZ: 12/12/2017 Tertiary NOT GIVENUNK Aníbal Insurance:SELF PAY [facility] Number: Effective Repository Date:2017-12-12 12/12/2017 MANGO L Primary MANGO L Aníbal [id number] S Insurance:ANTHRANCHO MCGARRYDOB: Community [address] MEDIC[employer] [facility] [id number] ADVANTAPolic Number: Repository 41293Yde: 330 [id number] [phone] () Date:4219-27-63IH [address] [place] [address] 81754ZL: 12/12/2017 Secondary MANGO L Aníbal Insurance:[facility] RIGBACHDOB: [facility] [id number] Hospital Number: Repository [id number] Date:6304-57-48IW [address] [place] [address] 20613CU: 12/12/2017 Tertiary NOT GIVENUNK Aníbal Insurance:SELF PAY [facility] Number: Effective Repository Date:2017-12-12 12/12/2017 MANGO L Primary MANGO L [place] [id number] S Insurance:ANTHEM RIGSAMANTHADOB: Community [employer] [facility] [id number] ADVANTAPolicy Number: Repository [id number]: [phone] [id number] (HP) Date:[id number] [place] [address] [address]BW: 12/12/2017 Secondary MANGO L [place] [facility] [id number] Hospital Number: Repository [id number] Date:7201-09-51OF [address] [address]VZ: 12/12/2017 Tertiary NOT GIVENUNK [place] Insurance:SELF PAY [facility] Number: Effective Repository Date:2017-12-12 12/12/2017 MANGO L Primary MANGO L Aníbal [id number] S Insurance:ANTHEM RIGBACHDOB: Community [employer] [facility] [id number] ADVANTAPolicy Number: Repository [id number]: [phone] [id number] (HP) Date:[id number] [address] [place] [address] 80725FX: 12/12/2017 Secondary MANGO L [place] Insurance:[facility] GORDABACHDOB: [facility] [id number] Hospital Number: Repository [id number] Date:6519-24-80PF [address] [address]NB: 12/12/2017 Tertiary NOT GIVENUNK Aníbal [facility] [facility] Number: Effective Repository Date:2017-12-12 12/12/2017 MANGO L Primary MANGO L [place] [id number] S Insurance:ANTHEM RIGBACHDOB: Community [employer] [employer] MEDICARE [facility] [id number] ADVANTAPolicy Number: Repository [id number]: (330 [id number] [phone]) Date:7841-47-44VZ[address] [place] [address]PS: 12/12/2017 Secondary MANGO L Aníbal Insurance:[facility] RIGBACHDOB: [facility] [id number] Hospital Number: Repository [id number] Date:3881-35-83EU [address] [address]UT: 12/12/2017 Tertiary NOT GIVENUNK [place] Insurance:SELF PAY [facility] Number: Effective Repository Date:2017-12-12 12/12/2017 MANGO L Primary MANGO L [place] [id number] S Insurance:ANTHEM RIGBACHDOB: Community [employer] MEDICARE SENIOR [id number] ADVANTAPolicy Number: Repository [id number]: 330 [id number] [phone] Date:0603-33-26JN[address] [address]AG: 12/12/2017 Secondary MANGO L [place] Insurance:[facility] RIGBACHDOB: [facility] [id number] Hospital Number: Repository [id number] Date:1096-45-73QO [address] [address]WN: 12/12/2017 Tertiary NOT GIVENUNK Aníbal Insurance:SELF PAY [facility] Number: Effective Repository Date:2017-12-12 12/12/2017 MANGO L Primary MANGO L Aníbal [id number] S Insurance:ANTHEM RIGBACHDOB: Community [address] MEDICARE [facility] [id number] ADVANTAPolicy Number: Repository [id number]: 330 [id number] [phone] Date:4066-18-84AU[address] [address]IP: 12/12/2017 Secondary MANGO L [place] Insurance:[facility] RIGBACHDOB: [facility] [id number] Hospital Number: Repository [id number] Date:0880-78-65NJ[address] [address]XQ: 12/12/2017 Tertiary NOT GIVENUNK Aníbal Insurance:SELF PAY [facility] Number: Effective Repository Date:2017-12-12 12/12/2017 MANGO L Primary MANGO L Aníbal [id number] S Insurance:ANTHEM RIGSAMANTHADOB: Community [employer] [employer] MEDICARE SENIOR [id number] ADVANTAPolicy Number: Repository [id number]: 330 [id number] [phone] () Date:2753-98-39EI[address] [address]TW: 12/12/2017 Secondary MANGO L Aníbal Insurance:[facility] RIGBACHDOB: [facility] [id number] Hospital Number: Repository [id number] Date:8253-04-54ER [address] [address]LT: 12/12/2017 Tertiary NOT GIVENUNK [place] Insurance:SELF PAY [facility] Number: Effective Repository Date:2017-12-12 12/12/2017 MANGO L Primary MANGO L [place] [id number] S Insurance:ANTHEM RIGSAMANTHADOB: Community [address] MEDICARE [facility] [id number] ADVANTAPoly Number: Repository [address]Ite: 330 [id number] [phone] () Date:7450-90-85EC[address] [address]FX: 12/12/2017 Secondary MANGO L Aníbal Insurance:[facility] RIGBACHDOB: [facility] [id number] Hospital Number: Repository [id number] Date:6699-18-01QY[address] [address]NZ: 12/12/2017 Tertiary NOT GIVENUNK Aníbal Insurance:SELF PAY [facility] Number: Effective Repository Date:2017-12-12 12/12/2017 MANGO L Primary MANGO L Aníbal [id number] S Insurance:ANTHEM RIGBACHDOB: Community [address] MEDICARE SENIOR [id number] ADVANTAPolicy Number: Repository [id number]: (330) [id number] [phone]) Date:0386-24-81AB[address] [address]WZ: 12/12/2017 Secondary MANGO L Aníbal [facility] [id number] Hospital Number: Repository [id number] Date:5527-52-65ZK[address] [address]HM: 12/12/2017 Tertiary NOT GIVENUNK [place] Insurance:SELF PAY [facility] Number: Effective Repository Date:2017-12-12 12/12/2017 MANGO L Primary MANGO L Aníbal [id number] S Insurance:MAUREENRANCHO NAHUMB: [facility] [employer] MEDIC[employer] SENIOR [id number] ADVANTAPolicy Number: Repository [id number]: (330) [id number] [phone]) Date:3497-08-24TT [address] [place] [address] 427[address]RR: 12/12/2017 Secondary MANGO L [place] [facility] [id number] Hospital Number: Repository [id number] Date:7934-73-59SG[address] [address]AT: 12/12/2017 Tertiary NOT GIVENUNK [place] Insurance:SELF PAY [facility] Number: Effective Repository Date:2017-12-12 12/12/2017 MANGO L Primary MANGO L Aníbal [id number] S Insurance:ANTHRANCHO RIGSAMANTHADOB: Community [address] MEDICARE [facility] [id number] ADVANTAPolicy Number: Repository [id number]: (330 [id number] [phone]) Date:7821-72-06JG [address] [place] [address]70[address]DC: 12/12/2017 Secondary MANGO L [place] Insurance:[facility] RIGGENBACHDOB: [facility] [id number] Hospital Number: Repository [id number] Date:7835-81-97CV [address] [address]YR: 12/12/2017 Tertiary NOT GIVENUNK [place] Insurance:SELF PAY [facility] Number: Effective Repository Date:2017-12-12 12/12/2017 MANGO L Primary MANGO L [place] [id number] S Insurance:ANTHEM RIGBACHDOB: Community [address] MEDICARE [facility] [id number] ADVANTAPolicy Number: Repository [id number]: 330 [id number] [phone]) Date:1359-30-09IQ [address] [address]GQ: 12/12/2017 Secondary MANGO L Aníbal Insurance:[facility] RIGBACHDOB: [facility] [id number] Hospital Number: Repository [id number] Date:3637-49-89BY [address] [address]IO: 12/12/2017 Tertiary NOT GIVENUNK [place] Insurance:SELF PAY [facility] Number: Effective Repository Date:2017-12-12 12/12/2017 MANGO L Primary MANGO L [place] [id number] S Insurance:ANTHEM RIGBACHDOB: Community [address] MEDICARE [facility] [id number] ADVANTAPolicy Number: Repository [id number]: 330 [id number] [phone] (HP) Date:3323-16-74RO[address] [address]UP: 12/12/2017 Secondary MANGO L [place] Insurance:[facility] RIGBACHDOB: [facility] [id number] Hospital Number: Repository [id number] Date:3881-56-48RX[address] [address]MD: 12/12/2017 Tertiary NOT GIVENUNK [place] Insurance:SELF PAY [facility] Number: Effective Repository Date:2017-12-12 12/12/2017 MANGO L Primary MANGO L Aníbal [id number] S Insurance:YARITZA WADEDIVYAB: Community [address] MEDICARE SENIOR [id number] ADVANTAPolicy Number: Repository [id number]: 330 [id number] [phone] () Date:5224-97-80PX [address] [address]BZ: 12/12/2017 Secondary MANGO L [place] Insurance:[facility] RIGDIVYADOB: [facility] [id number] Hospital Number: Repository [id number] Date:1893-26-05SF [address] [address]XD: 12/12/2017 Tertiary NOT GIVENUNK [place] Insurance:SELF PAY [facility] Number: Effective Repository Date:2017-12-12 12/12/2017 MANGO L Primary MANGO L Aníbal [id number] S Insurance:AYRITZA SIDHUB: [facility] [employer] [employer]IC[employer] SENIOR [id number] ADVANTAPolicy Number: Repository [id number]: 330 [id number] [phone] () Date:5169-68-28ST[address] [address]XV: 12/12/2017 Secondary MANGO L Aníbal Insurance:[facility] RIGBACHDOB: [facility] [id number] Hospital Number: Repository [id number] Date:4627-95-27NW [address] [address]IO: 12/12/2017 Tertiary NOT GIVENUNK [place] Insurance:SELF PAY [facility] Number: Effective Repository Date:2017-12-12 12/12/2017 MANGO L Primary MANGO L [place] [id number] S Insurance:ANTHEM NAHUMB: Community [address] MEDICARE [facility] [id number] ADVANTAPolicy Number: Repository [id number]: (330 [id number] [phone]) Date:5494-14-50NT [address] [address]DU: 12/12/2017 Secondary MANGO L [place] Insurance:[facility]UN[facility] GORDABACHDOB: [facility] [id number] Hospital Number: Repository [id number] Date:0428-61-02QE[address] [address]UT: 12/12/2017 Tertiary NOT GIVENUNK Aníbal Insurance:SELF PAY [facility] Number: Effective Repository Date:2017-12-12 12/12/2017 MANGO L Primary MANGO L Aníbal [id number] S Insurance:ANTHEM NAHUMB: Community [address] MEDICARE [facility] [id number] ADVANTAPolicy Number: Repository [id number]: (330 [id number] [phone]) Date:3275-47-80WZ[address] [address]BU: 12/12/2017 Secondary MANGO L Aníbal Insurance:[facility] PUNTA GORDAFRANTZB: [facility] [id number] Hospital Number: Repository [id number] Date:6456-30-28YT[address] [address]SW: 12/12/2017 Tertiary NOT GIVENUNK [place] Insurance:SELF PAY [facility] Number: Effective Repository Date:2017-12-12 12/12/2017 MANGO L Primary MANGO L Aníbal [id number] S Insurance:ANTHEM RIGSAMANTHADOB: Community [address] MEDICARE [facility] [id number] ADVANTAPolicy Number: Repository [id number]: (330 [id number] [phone]) Date:2938-42-69VY [address] [address]YX: 12/12/2017 Secondary MANGO L Aníbal Insurance:[facility] RIGGENBACHDOB: [facility] [id number] Hospital Number: Repository [id number] Date:0115-85-20GK [address] [address]TB: 12/12/2017 Tertiary NOT GIVENUNK Aníbal Insurance:SELF PAY [facility] Number: Effective Repository Date:2017-12-12 12/12/2017 MANGO L Primary MANGO L [place] [id number] S Insurance:ANTHEM RIGGENBACHDOB: Community [address] MEDICARE [facility] [id number] ADVANTAPolicy Number: Repository [id number]: 330 [id number] [phone]) Date:5383-95-47UW [address] [address]ZA: 12/12/2017 Secondary MANGO L Aníbal Insurance:[facility] RIGBACHDOB: [facility] [id number] Hospital Number: Repository [id number] Date:6292-66-66ZC [address] [address]JJ: 12/12/2017 Tertiary NOT GIVENUNK Aníbal Insurance:SELF PAY [facility] Number: Effective Repository Date:2017-12-12 12/12/2017 MANGO L Primary MANGO L Aníbal [id number] S Insurance:ANTHEM RIGBACHDOB: Community [address] MEDICARE [facility] [id number] ADVANTAPolicy Number: Repository [id number]: 330 [id number] [phone]) Date:7102-89-53QU[address] 29[address]CB: 12/12/2017 Secondary MANGO L Aníbal Insurance:[facility] RIGGENBACHDOB: [facility] [id number] Hospital Number: Repository [id number] Date:1351-32-63IS [address] [place] [address] 321[address]OH: 12/12/2017 Tertiary NOT GIVENUNK [place] Insurance:SELF PAY [facility] Number: Effective Repository Date:2017-12-12 12/12/2017 MANGO L Primary MANGO Spangler [id number] S Insurance:ANTHEM RIGSAMANTHADOB: Community [address] MEDICARE [facility] [id number] ADVANTAPolicy Number: Repository [id number]: 330 [id number] [phone] () Date:0390-70-93YG [address] [place] [address] 62080ZC: 12/12/2017 Secondary MANGO L [place] Insurance:[facility] RIGGENBACHDOB: [facility] [id number] Hospital Number: Repository [id number] Date:8260-73-48MC [address] [address]KL: 12/12/2017 Tertiary NOT GIVENUNK [place] Insurance:SELF PAY [facility] Number: Effective Repository Date:2017-12-12 11/17/2017 MANGO L Primary MANGO L Aníbal [id number] S Insurance:ANTHEM RIGSAMANTHADOB: [facility] [id number] ADVANTAPolicy Number: Repository [id number]: 330 [id number] [phone] (HP) Date:1540-54-28OW [address] [place] [address] 21448LY: 11/17/2017 Secondary MANGO L [place] Insurance:[facility] RIGGENBACHDOB: [facility] [id number] Hospital Number: Repository [id number] Date:9232-17-34NL [address] [address]TA: 11/17/2017 Tertiary NOT GIVENUNK Aníbal Insurance:SELF PAY [facility] Number: Effective Repository Date:2017-11-03 11/10/2017 ALEJO L Primary ALEJO L [place] [id number] S Insurance:ANTHEM NAHUMB: Community [address] MEDICARE [facility] [id number] ADVANTAPolicy Number: Repository [id number]: 330 [id number] [phone] Date:7036-77-05AF [address] [place] [address] 30778NP: 11/10/2017 Secondary ALEJO L Aníbal Insurance:[facility] PUNTA GORDABACHDOB: [facility] [id number] Hospital Number: Repository [id number] Date:2275-35-11YZ [address] [address]KK: 11/10/2017 Tertiary NOT GIVENUNK [place] Insurance:SELF PAY [facility] Number: Effective Repository Date:2017-11-10 11/10/2017 ALEJO L Primary ALEJO L Aníbal [id number] S Insurance:ANTHEM NAHUMB: Community [address] MEDICARE [facility] [id number] ADVANTAPolicy Number: Repository [id number]: (330 [id number] [phone] () Date:6505-35-74SH [address] [place] [address] 14950MM: 11/10/2017 Secondary ALEJO L Aníbal [facility] [id number] Hospital Number: Repository [id number] Date:5906-05-26ZH [address] 76[address]NG: 11/10/2017 Tertiary NOT GIVENUNK [place] Insurance:SELF PAY [facility] Number: Effective Repository Date:2017-11-01 11/01/2017 ALEJO L Primary ALEJO L [place] [id number] S Insurance:ANTHEM RIGSAMANTHADOB: Community [address] MEDICARE [facility] [id number] ADVANTAPolicy Number: Repository [id number]: 330 [id number] [phone] (HP) Date:8307-13-14ES [address] [place] [address] 88621QQ: 11/01/2017 Secondary ALEJO L Aníbal Insurance:[facility] NAHUMB: [facility] [id number] Hospital Number: Repository [id number] Date:0210-87-72RX [address] [place] [address] 69185YV: 11/01/2017 Tertiary NOT GIVENUNK Aníbal Insurance:SELF PAY [facility] Number: Effective Repository Date:2017-10-31 10/20/2017 ALEJO L Primary ALEJO L [place] [id number] S Insurance:ANTHEM RIGDIVYADOB: Community [address] MEDICARE [facility] [id number] ADVANTAPolicy Number: Repository [id number]: 330 [id number] [phone] () Date:5645-61-41KZ [address] [place] [address] 77054TT: 10/20/2017 Secondary ALEJO L [place] [facility]: [facility] [id number] Hospital Number: Repository [id number] Date:1205-73-23EO [address] [address]19[address]HV: 10/20/2017 Tertiary NOT GIVENUNK Aníbal Insurance:SELF PAY [facility] Number: Effective Repository Date:2017-10-13 08/04/2017 ALEJO L Primary ALEJO L Aníbal [id number] S Insurance:ANTHEM SHERIDIVYADOB: Community [address] MEDICARE [facility] [id number] ADVANTAPolicy Number: Repository [id number]: 330 [id number] [phone] Date:5831-09-70ME [address] [place] [address] 65897HN: 08/04/2017 Secondary ALEJO L Aníbal Insurance:[facility] RIGBACHDOB: [facility] [id number] Hospital Number: Repository [id number] Date:2447-14-00DE [address] [place] [address] 20954VH: 08/04/2017 Tertiary NOT GIVENUNK Aníbal Insurance:SELF PAY [facility] Number: Effective Repository Date:2017-08-04 07/27/2017 ALEJO L Primary ALEJO L [place] [id number] S Insurance:ANTHEM RIGSAMANTHADOB: Community [address] MEDICARE SENIOR [id number] ADVANTAPolicy Number: Repository [id number]: 330 [id number] [phone] (HP) Date:7925-96-98TS [address] [place] [address] 48520BV: 07/27/2017 Secondary ALEJO L Aníbal Insurance:[facility] RIGDIVYADOB: [facility] [id number] Hospital Number: Repository [id number] Date:7720-10-76PQ [address] [place] [address] 75268KQ: 07/27/2017 Tertiary NOT GIVENUNK [place] Insurance:SELF PAY [facility] Number: Effective Repository Date:2017-07-22 07/20/2017 ALEJO L Primary Insurance:[facility] ALEJO L [place] [id number] S [facility] RIGBACHDOB: [address] Number: [id number] [id number] Repository 890[address]Rnd: Date:3751-00-16FC [address] [phone] [place] [address] -4 (HP) 34274SV: 07/20/2017 Secondary ALEJO L Aníbal [facility]ESAMANTHADOB: Community MEDICARE SENIOR [id number] Hospital ADVANTAPolicy Number: Repository [id number] Date:3090-84-03PM [address] [place] [address] 15688VB: 07/20/2017 Tertiary NOT GIVENUNK Aníbal Insurance:SELF PAY [facility] Number: Effective Repository Date:2017-07-20 06/28/2017 ALEJO L Primary ALEJO L Aníbal [id number] S Insurance:YARITZA SIDHUB: Community [address] MEDICARE [facility] [id number] ADVANTAPolicy Number: Repository [id number]: 330 [id number] [phone] (HP) Date:0647-24-43IN [address] [place] [address] 78502ST: 06/28/2017 Secondary ALEJO L [place] Insurance:[facility] PUNTA GORDAFRANTZB: [facility] [id number] Hospital Number: Repository [id number] Date:7718-78-52UW [address] 80[address]GU: 06/28/2017 Tertiary NOT GIVENUNK [place] Insurance:SELF PAY [facility] Number: Effective Repository Date:2017-06-28 06/20/2017 ALEJO L Primary ALEJO L [place] [id number] S Insurance:YARITZA SIDHUB: Community [address] MEDICARE [facility] [id number] ADVANTAPolicy Number: Repository [id number]: [id number] [phone] Date:1403-03-76TN [address] () [address] [place] [address] 04970ZX: 06/20/2017 Secondary ALEJO L Aníbal Insurance:[facility] NAHUMB: [facility] [id number] Hospital Number: Repository [id number] Date:0394-24-81WK [address] [address]JT: 06/20/2017 Tertiary NOT GIVENUNK Aníbal Insurance:SELF PAY [facility] Number: Effective Repository Date:2017-06-20 06/20/2017 ALEJO L Primary ALEJO L [place] [id number] S Insurance:ANTHEM NAHUMB: Community [address] MEDICARE [facility] [id number] ADVANTAPolicy Number: Repository [id number]: [id number] [phone] Date:4225-15-91KF [address] () [place], [place] [address]UE: 06/20/2017 Secondary ALEJO L [place] Insurance:[facility]: [facility] [id number] Hospital Number: Repository [id number] Date:3060-39-83XF [address] 53[address]CF: 06/20/2017 Tertiary NOT GIVENUNK [place] Insurance:SELF PAY [facility] Number: Effective Repository Date:2017-06-20 06/20/2017 ALEJO L Primary ALEJO L [place] [id number] S Insurance:ANTHEM RIGBACHDOB: [address] MEDICARE SENIOR [id number] ADVANTAPolicy Number: Repository [id number]: [id number] [phone] Date:4565-08-61WY [address] () [place]18[place], [place] [address]UK: 06/20/2017 Secondary ALEJO L Aníbal Insurance:[facility]: [facility] [id number] Hospital Number: Repository [id number] Date:9140-22-78OV [address] [address]GF: 06/20/2017 Tertiary NOT GIVENUNK [place] Insurance:SELF PAY [facility] Number: Effective Repository Date:2017-06-20 06/20/2017 ALEJO L Primary ALEJO L [place] [id number] S Insurance:ANTHEM RIGBACHDOB: Community [address] MEDICARE [facility] [id number] ADVANTAPolicy Number: Repository [id number]: [id number] [phone] Date:1028-58-63FX [address] () [place]01992XYJ[place]WM, [place] [address]WZ: 06/20/2017 Secondary ALEJO L [place] Insurance:[facility] RIGBACHDOB: [facility] [id number] Hospital Number: Repository [id number] Date:2446-88-18KZ [address] [address]56[address]TA: 06/20/2017 Tertiary NOT GIVENUNK Aníbal Insurance:SELF PAY [facility] Number: Effective Repository Date:2017-06-20 06/20/2017 ALEJO L Primary ALEJO L [place] [id number] S Insurance:ANTHEM RIGSAMANTHADOB: Community [address] MEDICARE [facility] [id number] ADVANTAPolicy Number: Repository [id number]: [id number] [phone] Date:9918-84-93MN [address] () [place], [place] [address]WV: 06/20/2017 Secondary ALEJO L [place] [facility]: [facility] [id number] Hospital Number: Repository [id number] Date:7365-37-29HT [address] [address]FR: 06/20/2017 Tertiary NOT GIVENUNK [place] Insurance:SELF PAY [facility] Number: Effective Repository Date:2017-06-20 06/20/2017 ALEJO L Primary ALEJO L Aníbal [id number] Insurance:ANTHEM WILLIAMDOB: [facility] [employer] [facility] [id number] ADVANTAPolicy Number: Repository [id number]: [id number] [phone] Date:2621-82-65BR [address] () [id number], [place] [address]CP: 06/20/2017 Secondary ALEJO L [place] Insurance:[facility] RIGBACHDOB: [facility] [id number] Hospital Number: Repository [id number] Date:6086-89-55CV [address] [address]KA: 06/20/2017 Tertiary NOT GIVENUNK [place] Insurance:SELF PAY [facility] Effective Repository Date:2017-06-20 06/20/2017 ALEJO L Primary ALEJO L Aníbal [id number] Insurance:ANTHEM WILLIAMDOB: Community [employer] MED[employer] [facility] [id number] ADVANTAPolicy Number: Repository [id number]: [id number] [phone] Date:5979-57-85YK [address] () [id number] [place] [address]CX: 06/20/2017 Secondary ALEJO L [place] Insurance:[facility] RIGBACHDOB: [facility] [id number] Hospital Number: Repository [id number] Date:2295-83-17QG [address] [address]UD: 06/20/2017 Tertiary NOT GIVENUNK Aníbal Insurance:SELF PAY [facility] Number: Effective Repository Date:2017-06-20 06/20/2017 ALEJO L Primary ALEJO L Aníbal [id number] S Insurance:ANTHEM WILLIAMDOB: Community [employer] [employer] MEDICARE [facility] [id number] ADVANTAPolicy Number: Repository [id number]: [id number] [phone] Date:2188-37-74ZB BOX -[address] () [id number] [place] [address] 53157OJ: 06/20/2017 Secondary ALEJO L [place] Insurance:[facility] RIGBACHDOB: [facility] [id number] Hospital Number: Repository [id number] Date:2061-24-29YD [address] 994[address]DJ: 06/20/2017 Tertiary NOT GIVENUNK [place] Insurance:SELF PAY [facility] Number: Effective Repository Date:2017-06-20 06/20/2017 ALEJO L Primary ALEJO L [place] [id number] S Insurance:ANTHEM RIGBACHDOB: Community [address] MEDICARE [facility] [id number] ADVANTAPolicy Number: Repository [id number]: [id number] [phone] Date:4019-14-22HE BOX -4 () [id number] [place] [address] 78574MB: 06/20/2017 Secondary ALEJO L [place] [facility] [id number] Hospital Number: Repository [id number] Date:3064-41-04KO [address] [address]14[address]LO: 06/20/2017 Tertiary NOT GIVENUNK [place] Insurance:SELF PAY [facility] Number: Effective Repository Date:2017-06-20 06/20/2017 ALEJO L Primary ALEJO L Aníbal [id number] S Insurance:YARITZA SIDHUB: [facility] STAPT MEDICARE SENIOR [id number] ADVANTAPolicy Number: Repository [id number]: [id number] [phone] Date:0393-23-26UR BOX -[address] () [id number] [place] [address] 51302GG: 06/20/2017 Secondary ALEJO L Aníbal Insurance:[facility]: [facility] [id number] Hospital Number: Repository [id number] Date:9027-05-72WI [address] [address]66[address]JN: 06/20/2017 Tertiary NOT GIVENUNK Aníbal Insurance:SELF PAY [facility] Number: Effective Repository Date:2017-06-20 06/20/2017 ALEJO L Primary ALEJO L [place] [id number] S Insurance:ANTHEM WILLIAMDOB: [address] MEDICARE [facility] [id number] ADVANTAPolicy Number: Repository [id number]: 330 [id number] [phone] Date:7201-19-93QD [address] [place] [address] 14707XG: 06/20/2017 Secondary ALEJO L [place] Insurance:[facility] RIGGENBACHDOB: [facility] [id number] Hospital Number: Repository [id number] Date:5532-97-29YM [address] 39338OR: 06/20/2017 Tertiary NOT GIVENUNK [place] Insurance:SELF PAY [facility] Number: Effective Repository Date:2017-06-20 06/20/2017 ALEJO L Primary ALEJO L Aníbal [id number] S Insurance:ANTHEM RIGBACHDOB: [address] MEDICARE [facility] [id number] ADVANTAPolicy Number: Repository [id number]: [id number] [phone] Date:2700-44-27GH BOX -4 () [address] [place] [address] 23261VU: 06/20/2017 Secondary ALEJO L [place] [facility] [id number] Hospital Number: Repository [id number] Date:5225-29-29KE [address] 19155XO: 06/20/2017 Tertiary NOT GIVENUNK [place] Insurance:SELF PAY [facility] Number: Effective Repository Date:2017-06-20 06/20/2017 ALEJO L Primary ALEJO L [place] [id number] S Insurance:ANTHEM RIGBACHDOB: [address] MEDICARE [facility] [id number] ADVANTAPolicy Number: Repository [id number]: 330 [id number] [phone] (HP) Date:5737-52-89MZ [address]MUHKD, [place] [address]YE: 06/20/2017 Secondary ALEJO L [place] Insurance:[facility] RIGBACHDOB: [facility] [id number] Hospital Number: Repository [id number] Date:5946-87-83TO [address] 620[address]JR: 06/20/2017 Tertiary NOT GIVENUNK Aníbal Insurance:SELF PAY [facility] Number: Effective Repository Date:2017-06-20 06/20/2017 ALEJO L Primary ALEJO L Aníbal [id number] S Insurance:YARITZA SIDHUB: [address] MEDICARE SENIOR [id number] ADVANTAPolicy Number: Repository [id number]: [phone] [id number] [phone] (HP) Date:2260-83-42WI [address] [place] [address] 70641FB: 06/20/2017 Secondary ALEJO L Aníbal [facility] PUNTA GORDABACHDOB: [facility] [id number] Hospital Number: Repository [id number] Date:9789-26-14WC [address] 71042OE: 06/20/2017 Tertiary NOT GIVENUNK [place] Insurance:SELF PAY [facility] Number: Effective Repository Date:2017-06-20 06/20/2017 ALEJO L Primary ALEJO L Aníbal [id number] S Insurance:YARITZA [facility]IDHUB[facility] [id number] ADVANTAPolicy Number: Repository [id number]: [id number] [phone] Date:0844-09-41OP BOX -4 () [address] [place] [address] 21559EU: 06/20/2017 Secondary ALEJO L [place] Insurance:[facility] RIGGENBACHDOB: [facility] [id number] Hospital Number: Repository [id number] Date:7305-87-59NN [address] 27319JI: 06/20/2017 Tertiary NOT GIVENUNK [place] Insurance:SELF PAY [facility] Number: Effective Repository Date:2017-06-20 06/20/2017 ALEJO L Primary ALEJO L [place] [id number] S Insurance:ANTHEM NAHUMB: [address] MEDICARE [facility] [id number] ADVANTAPolicy Number: Repository [id number]: [id number] [phone] Date:0957-70-47OM BOX -4 () [address] [place] [address] 07869UO: 06/20/2017 Secondary ALEJO L Aníbal Insurance:[facility]: [facility] [id number] Hospital Number: Repository [id number] Date:8470-22-29AA [address] 68106CV: 06/20/2017 Tertiary NOT GIVENUNK [place] Insurance:SELF PAY [facility] Number: Effective Repository Date:2017-06-20 06/20/2017 ALEJO L Primary ALEJO L Aníbal [id number] S Insurance:ANTHEM NAHUMB: [address] MEDICARE [facility] [id number] ADVANTAPolicy Number: Repository [id number]: [id number] [phone] Date:8819-49-24EE BOX -4 () [address] [place] [address] 10281ZN: 06/20/2017 Secondary ALEJO L [place] Insurance:[facility]: [facility] [id number] Hospital Number: Repository [id number] Date:5904-57-23OF [address] 530[address]SB: 06/20/2017 Tertiary NOT GIVENUNK Aníbal Insurance:SELF PAY [facility] Number: Effective Repository Date:2017-06-20 06/20/2017 ALEJO L Primary ALEJO L Aníbal [id number] S Insurance:ANTHEM WILLIAMDOB: [address] MEDICARE [facility] [id number] ADVANTAPolicy Number: Repository [id number]: [id number] [phone] Date:5855-64-88QX BOX -4 () 066841QXABAID[address] [place] [address] 47126JI: 06/20/2017 Secondary ALEJO L [place] Insurance:[facility] RIGSAMANTHADOB: [facility] [id number] Hospital Number: Repository [id number] Date:6332-68-55OD [address] 30417CV: 06/20/2017 Tertiary NOT GIVENUNK [place] Insurance:SELF PAY [facility] Number: Effective Repository Date:2017-06-20 06/20/2017 ALEJO L Primary ALEJO L Aníbal [id number] S Insurance:ANTHEM RIGBACHDOB: [address] MEDICARE [facility] [id number] ADVANTAPolicy Number: Repository 39670Bvu: 330 [id number] [phone] Date:8159-82-72JV [address] [place] [address] 93897DZ: 06/20/2017 Secondary ALEJO L [place] Insurance:[facility]: [facility] [id number] Hospital Number: Repository [id number] Date:9615-84-00YZ [address] 22768VR: 06/20/2017 Tertiary NOT GIVENUNK Aníbal Insurance:SELF PAY [facility] Number: Effective Repository Date:2017-06-20 06/20/2017 ALEJO L Primary ALEJO L [place] [id number] S Insurance:ANTHEM RIGBACHDOB: [address] MEDICARE [facility] [id number] ADVANTAPolicy Number: Repository [id number]: [id number] [phone] Date:6054-80-87VI BOX -[address] (HP) [place], [place] [address]EX: 06/20/2017 Secondary ALEJO L Aníbal Insurance:[facility] RIGGENBACHDOB: [facility] [id number] Hospital Number: Repository [id number] Date:7034-07-07OW [address] [place] [address] 00096MR: 06/20/2017 Tertiary NOT GIVENUNK [place] Insurance:SELF PAY [facility] Number: Effective Repository Date:2017-06-20 06/20/2017 ALEJO L Primary ALEJO L [place] [id number] S Insurance:MAUREENEM NAHUMB: [address] MEDICARE SENIOR [id number] ADVANTAPolicy Number: Repository [id number]: [id number] [phone] Date:6231-06-69WJ BOX -4 () [address] [place] [address] 42615VY: 06/20/2017 Secondary ALEJO L Aníbal Insurance:[facility]: [facility] [id number] Hospital Number: Repository [id number] Date:9443-23-74GE [address] 84134KW: 06/20/2017 Tertiary NOT GIVENUNK [place] Insurance:SELF PAY [facility] Number: Effective Repository Date:2017-06-20 06/20/2017 ALEJO L Primary ALEJO L Aníbal [id number] S Insurance:YARITZA SIDHUB: [facility] ST[facility]T MEDICARE SENIOR [id number] ADVANTAPolicy Number: Repository [id number]: ([phone] [id number] [phone] (HP) Date:9668-46-41CR [address] [place] [address] 45612MI: 06/20/2017 Secondary ALEJO L Aníbal Insurance:[facility]: [facility] [id number] Hospital Number: Repository [id number] Date:0545-42-24YN [address] 59348TT: 06/20/2017 Tertiary NOT GIVENUNK [place] Insurance:SELF PAY [facility] Number: Effective Repository Date:2017-06-20 06/20/2017 ALEJO L Primary ALEJO L Aníbal [id number] S Insurance:YARITZA SIDHUB: [address] MEDICARE [facility] [id number] ADVANTAPolicy Number: Repository [id number]: [id number] [phone] Date:4176-79-77LK BOX -4 () [address] [place] [address] 38576PL: 06/20/2017 Secondary ALEJO L Aníbal Insurance:[facility] RIGFRANTZB: [facility] [id number] Hospital Number: Repository [id number] Date:9440-00-10HZ [address] 30838ZR: 06/20/2017 Tertiary NOT GIVENUNK [place] Insurance:SELF PAY [facility] Number: Effective Repository Date:2017-06-20 06/20/2017 ALEJO L Primary ALEJO L [place] [id number] S Insurance:YARITZA SIDHUB: [facility]T MEDICARE SENIOR [id number] ADVANTAPolicy Number: Repository [id number]: [id number] [phone] Date:7950-29-82VW BOX -4 () 229178XPVAMAD[address] [place] [address] 37367XK: 06/20/2017 Secondary ALEJO L Aníbal Insurance:[facility] NAHUMB: [facility] [id number] Hospital Number: Repository [id number] Date:9479-30-65RE [address] 50470HJ: 06/20/2017 Tertiary NOT GIVENUNK Aníbal Insurance:SELF PAY [facility] Number: Effective Repository Date:2017-06-20 06/20/2017 ALEJO L Primary ALEJO L [place] [id number] S Insurance:ANTHEM NAHUMB: [address] MEDICARE [facility] [id number] ADVANTAPolicy Number: Repository [id number]: [id number] [phone] Date:3078-78-68SM BOX -4 () [address] [place] [address] 89114CF: 06/20/2017 Secondary ALEJO L [place] Insurance:[facility]: [facility] [id number] Hospital Number: Repository [id number] Date:5417-71-32FS [address] 885[address]VD: 06/20/2017 Tertiary NOT GIVENUNK Aníbal Insurance:SELF PAY [facility] Number: Effective Repository Date:2017-06-20 06/20/2017 ALEJO L Primary ALEJO L Aníbal [id number] S Insurance:ANTHEM RIGSAMANTHADOB: [address] MEDICARE SENIOR [id number] ADVANTAPolicy Number: Repository [id number]: [id number] [phone] Date:5023-56-49EY BOX -4 () [address] [place] [address] 07112LB: 06/20/2017 Secondary ALEJO L Aníbal Insurance:[facility]: [facility] [id number] Hospital Number: Repository [id number] Date:0307-20-80YE[address] [address]TA: 06/20/2017 Tertiary NOT GIVENUNK [place] Insurance:SELF PAY [facility] Number: Effective Repository Date:2017-06-20 06/20/2017 ALEJO L Primary ALEJO L Aníbal [id number] S Insurance:ANTHEM RIGBACHDOB: [address] MEDICARE [facility] [id number] ADVANTAPolicy Number: Repository [id number]: 330 [id number] [phone] (HP) Date:8665-15-71NS[address] [address]SQ: 06/20/2017 Secondary ALEJO L Aníbal Insurance:[facility] RIGBACHDOB: [facility] [id number] Hospital Number: Repository [id number] Date:7727-51-57NS [address] 41846SK: 06/20/2017 Tertiary NOT GIVENUNK Aníbal Insurance:SELF PAY [facility] Number: Effective Repository Date:2017-06-20 06/20/2017 ALEJO L Primary ALEJO L Aníbal [id number] S Insurance:ANTHEM RIGBACHDOB: [address] MEDICARE [facility] [id number] ADVANTAPolicy Number: Repository [id number]: [id number] [phone] Date:7041-81-56AL BOX -4 () [address] [place] [address] 71383NN: 06/20/2017 Secondary ALEJO L Aníbal Insurance:[facility] PUNTA GORDABACHDOB: [facility] [id number] Hospital Number: Repository [id number] Date:1451-49-84XT [address] 834[address]LL: 06/20/2017 Tertiary NOT GIVENUNK Aníbal Insurance:SELF PAY [facility] Number: Effective Repository Date:2017-06-20 06/20/2017 ALEJO L Primary ALEJO L Aníbal [id number] S Insurance:ANTHEM WILLIAMDOB: [address] MEDICARE [facility] [id number] ADVANTAPolicy Number: Repository [id number]: 330 [id number] [phone] (HP) Date:4171-10-47RJ [address] [place] [address] 92412XN: 06/20/2017 Secondary ALEJO L [place] Insurance:[facility] RIGBACHDOB: [facility] [id number] Hospital Number: Repository [id number] Date:9848-91-29OD [address] 28095ZT: 06/20/2017 Tertiary NOT GIVENUNK Aníbal Insurance:SELF PAY [facility] Number: Effective Repository Date:2017-06-20 06/20/2017 ALEJO L Primary ALEJO L [place] [id number] S Insurance:YARITZA WADEDIVYAB: [address] MEDICARE SENIOR [id number] ADVANTAPolicy Number: Repository [id number]: [id number] [phone] Date:9471-56-88GZ BOX -4 () [address] [place] [address] 31385HU: 06/20/2017 Secondary ALEJO L Aníbal Insurance:[facility] RIGDIVYADOB: [facility] [id number] Hospital Number: Repository [id number] Date:3372-04-80JG [address] [place] [address] 31644HI: 06/20/2017 Tertiary NOT GIVENUNK Aníbal Insurance:SELF PAY [facility] Number: Effective Repository Date:2017-06-20 06/20/2017 ALEJO L Primary ALEJO L Aníbal [id number] S Insurance:YARITZA SIDHUB: [facility] [id number] ADVANTAPolicy Number: Repository [id number]: (330 [id number] [phone] (HP) Date:5102-19-52NC [address] [place] [address] 54280OK: 06/20/2017 Secondary ALEJO L [place] Insurance:[facility] RIGBACHDOB: [facility] [id number] Hospital Number: Repository [id number] Date:8945-31-54UU [address] 977[address]JE: 06/20/2017 Tertiary NOT GIVENUNK [place] Insurance:SELF PAY [facility] Number: Effective Repository Date:2017-06-20 06/20/2017 ALEJO L Primary ALEJO L Aníbal [id number] S Insurance:ANTHRANCHO WADEDANIELAB: [address] MEDICARE [facility] [id number] ADVANTAPolicy Number: Repository [id number]: [id number] [phone] Date:8194-16-81JH BOX -4 () 549671FLISYOX[address] [place] [address] 52073XZ: 06/20/2017 Secondary ALEJO L [place] [facility]ON[facility]ITALB: [facility] [id number] Hospital Number: Repository [id number] Date:3986-04-32MP [address] 030[address]KT: 06/20/2017 Tertiary NOT GIVENUNK Aníbal Insurance:SELF PAY [facility] Number: Effective Repository Date:2017-06-20 06/20/2017 ALEJO L Primary ALEJO L [place] [id number] S Insurance:YARITZA SIDHUB: [facility] [address] MEDICARE [facility] [id number] ADVANTAPolicy Number: Repository [id number]: [id number] [phone] Date:6347-44-14TF BOX -[address] () 877715HQNGIHV[address] [place] [address] 79020JZ: 06/20/2017 Secondary ALEJO L [place] [facility] [id number] Hospital Number: Repository [id number] Date:0852-66-55SK [address] 59465ZT: 06/20/2017 Tertiary NOT GIVENUNK Aníbal Insurance:SELF PAY [facility] Number: Effective Repository Date:2017-06-20 06/20/2017 ALEJO L Primary ALEJO L Aníbal [id number] S Insurance:ANTHEM NAHUMB: [address] MEDICARE [facility] [id number] ADVANTAPolicy Number: Repository [id number]: [id number] [phone] Date:0079-89-03SZ BOX -4 () 905243ZHJPGJV, [place] [address]XG: 06/20/2017 Secondary ALEJO L Aníbal Insurance:[facility] RIGBACHDOB: [facility] [id number] Hospital Number: Repository [id number] Date:4770-03-74AE [address] 01129VV: 06/20/2017 Tertiary NOT GIVENUNK Aníbal Insurance:SELF PAY [facility] Number: Effective Repository Date:2017-06-20 06/20/2017 ALEJO L Primary ALEJO L [place] [id number] S Insurance:ANTHEM RIGBACHDOB: [address] MEDICARE [facility] [id number] ADVANTAPolicy Number: Repository [id number]: [id number] [phone] Date:7450-31-02TR BOX -[address] () 850253QHIQEKK[address] [place] [address] 26834OQ: 06/20/2017 Secondary ALEJO L Aníbal Insurance:[facility] PUNTA GORDAFRANTZB: [facility] [id number] Hospital Number: Repository [id number] Date:4054-27-67QI [address] 28420XZ: 06/20/2017 Tertiary NOT GIVENUNK Aníbal Insurance:SELF PAY [facility] Number: Effective Repository Date:2017-06-20 06/20/2017 ALEJO L Primary ALEJO L [place] [id number] S Insurance:ANTHEM RIGBACHDOB: [address] MEDICARE [facility] [id number] ADVANTAPolicy Number: Repository [id number]: [id number] [phone] Date:1839-83-49VI BOX -[address] () [place], [place] [address]FZ: 06/20/2017 Secondary ALEJO L Aníbal Insurance:[facility] RIGBACHDOB: [facility] [id number] Hospital Number: Repository [id number] Date:3481-69-42QN [address] 54171NN: 06/20/2017 Tertiary NOT GIVENUNK Aníbal Insurance:SELF PAY [facility] Number: Effective Repository Date:2017-06-20 06/20/2017 ALEJO L Primary ALEJO L [place] [id number] S Insurance:ANTHEM RIGSAMANTHADOB: [address] MEDICARE SENIOR [id number] ADVANTAPolicy Number: Repository [id number]: [id number] [phone] Date:5503-75-12NH B[address] -[address] () 165887BZLFJVE[address] [place] [address] 10401OY: 06/20/2017 Secondary ALEJO L [place] [facility] [id number] Hospital Number: Repository [id number] Date:0162-51-97RR[address] [address]BO: 06/20/2017 Tertiary NOT GIVENUNK Aníbal Insurance:SELF PAY [facility] Number: Effective Repository Date:2017-06-20 06/13/2017 ALEJO L Primary ALEJO L Aníbal [id number] S Insurance:ANTHEM RIGSAMANTHADOB: [facility] [id number] ADVANTAPolicy Number: Repository 13414Dfu: [id number] [phone] Date:8324-90-70LY [address] -[address] () 527744BGRIBEG[address] [place] [address] 97405UO: 06/13/2017 Secondary ALEJO L Aníbal Insurance:[facility]: [facility] [id number] Hospital Number: Repository [id number] Date:2451-18-86AG [address] 813[address]NF: 06/13/2017 Tertiary NOT GIVENUNK [place] Insurance:SELF PAY [facility] Number: Effective Repository Date:2017-06-13 06/10/2017 ALEJO Genao Primary ALEJO Spangler [id number] S Insurance:MEDICARE RIGGENCONNECTICUT VALLEY HOSPITALB: [address] PART A BPolicy [id number] [place] Number: Repository [id number]: [id number] [phone] Date:2017-06-10 () 06/10/2017 Secondary ALEJO Spangler Insurance:MEDICAIDPol [facility] Number: [id number] [id number] Repository Date:2017-06-10 06/10/2017 Tertiary NOT GIVENUNK Aníbal Insurance:SELF PAY [facility] Number: Effective Repository Date:2017-06-10
== END 2018-01-25 14:22 | disposition skilled nursing facility (03) | DRG 189 ==
PROVIDERS: Internal Medicine; Student in an Organized Health Care Education/Training Program; Admitting Provider Hospitalist; Family Provider Family Medicine; PCP Family Medicine; Visit Provider Internal Medicine
DX: J96.21 Acute and chronic respiratory failure with hypoxia (principal); I50.22 Chronic systolic (congestive) heart failure; Z68.42 Body mass index [BMI] 45.0-49.9, adult; E66.2 Morbid (severe) obesity with alveolar hypoventilation; J96.22 Acute and chronic respiratory failure with hypercapnia; Z93.0 Tracheostomy status; E11.9 Type 2 diabetes mellitus without complications; I25.10 Atherosclerotic heart disease of native coronary artery without angina pectoris; J98.8 Other specified respiratory disorders; F17.210 Nicotine dependence, cigarettes, uncomplicated; Z93.1 Gastrostomy status; I25.2 Old myocardial infarction; Z95.5 Presence of coronary angioplasty implant and graft; Z79.4 Long term (current) use of insulin; Z86.74 Personal history of sudden cardiac arrest; I25.5 Ischemic cardiomyopathy; I87.8 Other specified disorders of veins; E78.5 Hyperlipidemia, unspecified; I48.0 Paroxysmal atrial fibrillation; I11.0 Hypertensive heart disease with heart failure; Z79.02 Long term (current) use of antithrombotics/antiplatelets; J20.8 Acute bronchitis due to other specified organisms; Z79.82 Long term (current) use of aspirin; D64.9 Anemia, unspecified
CPT/HCPCS: 36415; 71045; 74230; 80048; 82962; 83735; 85025; 87070; 87077; 87186; 87205; 87633; 92526; 92611; 93005; 94640; 94667; 94668; 97163; 97165; 97530; 97802; 99406